=== PATIENT | female | born 1945 | race Caucasian/White ===

== ENCOUNTER 2019-08-21 11:48 | Inpatient (IN) ==
--- OUTSIDE RECORDS SUMMARY | 2019-08-21 11:51 | External Medical Summary | Continuity of Care Document ---
:1945 Author Name Uzair Gerber, Provider Address Unavailable Unavailable , Care Team Providers Name Role Phone Onofre Gerber, Alfredito Unavailable [email or web address] PCP, UNKNOWN Unavailable Unavailable Unavailable Unavailable Unavailable Problems Epilepsy (345.90) Gallbladder disease (575.9) (K82.9) Diabetes mellitus (250.00) (E11.9) Hypothyroidism (244.9) (E03.9) Asthma (493.90) (J45.909) Atypical glandular cells of undetermined significance of cervix (795.01) (R87.619) Hypertension (401.9) (I10) Postmenopausal bleeding (627.1) (N95.0) Hypercholesterolemia (272.0) (E78.00) Aftercare following surgery (V58.89) (Z48.89) Arthritis (716.90) (M19.90) Migraine headache (346.90) (G43.909) Allergies and Adverse Reactions Adalat CC TBCR (Allergy) Adrenalin SOLN (Allergy) Aspirin TABS (Allergy) Reaction: Rash Avelox SOLN (Allergy) Avelox TABS (Allergy) Benzodiazepines (Allergy) Reaction: Hive s Diltia XT CP24 (Allergy) Diltiazem HCl CD CP24 (Allergy) Doxycycline Hyclate CAPS (Allergy) Epifrin SOLN (Allergy) Penicillins (Allergy) Reaction: Hives, A naphylaxis Simvastatin TABS (Allergy) Sulfa Drugs (Allergy) Reaction: Hives Vancomycin HCl SOLR (Allergy) Reaction: Hives Vibramycin CAPS (Allergy) Zocor TABS (Allergy) Medications amLODIPine Besylate 5 MG Oral Tablet; TAKE 1 TABLET DAILY. Refills: 0 Levothyroxine Sodium 150 MCG Oral Tablet; TAKE 1 TABLET EMILIANO Y. Refills: 0 Losartan Potassium 100 MG Oral Tablet; TAKE 1 TABLET DAILY. Refills: 0 metFORMIN HCl - 500 MG Oral Tablet; TAKE 1 TABLET 3 TIMES DA EMILEE WITH MEALS. Refills: 0 Ventolin HFA 108 (90 Base) MCG/ACT Inhalation Aerosol Soluti on Refills: 0 Albuterol AERS Refills: 0 Procedures History of Section Status: Comp leted History of Dilation And Curettage Status : Completed History of Thyroid Surgery Total Thyroidectomy Status: Completed History of Brain Surgery Status: Complet ed Aftercare following surgery Immunizations Immunizations not documented Family History Unknown Family Member Family history of Diabetes Mellitus (V18.0) Status: Active Comments: Family History Family history of Hypertension (V17.49) Status: Active Comments: Family History Family history of Pure Hypercholesterolemia Status: Active Comments: Family History Family history of Thyroid Disorder (V18.19) Status: Active Comments: Family History Social History - Smoking Status Never smoker Plan of Treatment Planned Observations Planned Goals not documented Results No Known Results Results not documented
[2019-08-21 12:37] LABS: Basophils # (auto) 0.04 K/uL (0-0.2); Basophils % (auto) 0.4 %; Eosinophils # (auto) 0.12 K/uL (0-0.5); Eosinophils % (auto) 1.3 %; Hematocrit (blood only) 45.8 % (37-47); Hemoglobin 15.4 g/dL (12.0-16.0); Immature Granulocytes # (auto) 0.03 K/uL (0.00-0.02); Immature Granulocytes % (auto) 0.3 %; Lymphocytes # (auto) 1.29 K/uL (1.2-3.4); Lymphocytes % (auto) 14.2 %; Mean Corpuscular Hemoglobin 28.8 pg (25-34); Mean Corpuscular Hgb Conc 33.6 g/dL (32-36); Mean Corpuscular Volume 85.6 fL (80-100); Mean Platelet Volume 9.7 fL (7.4-10.4); Monocytes # (auto) 0.67 K/uL (0.11-0.59); Monocytes % (auto) 7.4 %; Neutrophils # (auto) 6.96 K/uL (1.4-6.5); Neutrophils % (auto) 76.4 %; Platelet Count 257 K/uL (130-400); RDW Coefficient of Variation 13.2 % (11.5-14.5); RDW Standard Deviation 41.1 fL (36.4-46.3); Red Blood Count 5.35 M/uL (4.2-5.4); White Blood Count 9.11 K/uL (4.8-10.8)
--- NOTE | 2019-08-21 12:43 | XRay Report ---
XR chest 1V portable CLINICAL HISTORY: 73 years-old Female presenting with Chest Pain. TECHNIQUE: Portable upright AP view of the chest was obtained. COMPARISON: 09/08/2015. FINDINGS: Atherosclerosis of the aortic arch. Cardiac silhouette borderline enlarged. No focal opacity. No larg e effusion or pneumothorax. Degenerative changes of the thoracic spine. Degenerative changes of the s houlders. Upper abdomen normal. IMPRESSION: 1. No acute cardiopulmonary disease. Electronically signed by: Kerwin Orantes M.D. 08/21/2019 12:42 PM
[2019-08-21 12:48] LABS: Prothrombin Time 10.1 Seconds (9.0-12.0)
[2019-08-21 13:01] LABS: Alanine Aminotransferase 15 U/L (12-78); Albumin Globulin Ratio 0.7 (0.9-2); Albumin Level 3.3 gm/dl (3.4-5.0); Alkaline Phosphatase 120 U/L (45-117); Aspartate Aminotransferase 9 U/L (15-37); BUN Creatinine Ratio 21.4 (10-20); Bilirubin,Total 0.8 mg/dl (0.2-1); Blood Urea Nitrogen 14 mg/dl (7-18); Carbon Dioxide 28 mmol/L (21-32); Chloride 100 mmol/L (98-107); Creatinine Clr Calc Pharmacy 87.1 ml/min; Est GFR (African American) 102.5; Est GFR (Non-African American) 88.4; Globulin 4.8 gm/dl (2.5-4.0); Glucose 336 mg/dl (70-99); Lipase 84 U/L (73-393); Potassium 3.5 mmol/L (3.5-5.1); Sodium 135 mmol/L (136-145); Total Protein 8.1 gm/dl (6.4-8.2); Troponin I < 0.015 ng/ml (0-0.045)
[2019-08-21 13:15] LABS: Beta-Hydroxybutyrate 5.57 mg/dl (0.2-2.81)
[2019-08-21] MEDS ORDERED: OPTIRAY 320 125ml IV PRN (13:37)
--- NOTE | 2019-08-21 13:52 | CT Scan Report ---
CT ANGIOGRAM OF THE CHEST CLINICAL HISTORY: Atypical chest pain. Shortness of breath. Positive d-dimer. COMPARISON STUDY: Chest x-ray dated 08/21/2019, noncontrast CT scan of the chest dated 04/14/2013 TECHNIQUE: Following the IV administration of 116 mL of Optiray-320, CT angiogram of the thorax was p erformed from the thoracic inlet to the lung bases utilizing the pulmonary embolus protocol. Images a re reviewed in the axial, sagittal, and coronal planes. IV contrast was administered without complica tion. MIP imaging was performed. A dose lowering technique was utilized adhering to the principles o f ALARA. CT DOSE: 484.78 mGycm FINDINGS: No pathologically enlarged axillary mediastinal or hilar lymph nodes were visualized. There was no evidence of thoracic aortic dilatation. There were no pulmonary artery filling defects to indicate acute pulmonary embolism. No pleural effusions are visualized. There is area of atelectasis/consolidation involving the medial aspect of the right middle lobe. This could be atelectatic or infectious/inflammatory. Clinical correlation is advocated. A 3 month follow -up CT scan is recommended. IMPRESSION: 1. No evidence of acute pulmonary embolism 2. No evidence of pathologic adenopathy 3. Area of atelectasis/consolidation involving the medial aspect the right middle lobe. This could be atelectatic or infectious/inflammatory. Clinical correlation and 3 month follow-up CT scanning is re commended. Electronically signed by: Sotero Solo M.D. 08/21/2019 1:50 PM
[2019-08-21] MEDS ORDERED: ACETAMINOPHEN 1,000 MG/100 ML VIAL IV STA (14:07)
--- NOTE | 2019-08-21 15:33 | History & Physical Report ---
Date of Service August 21, 2019 Assessment & Plan (1) Chest pain: Chest pain of unclear etiology at present. Initial troponin negative and EKG without acute changes. D-dimer was elevated but CTA chest negative for PE although did show an area of potential atelectasis vs consolidation in the RML. Pt has been afebrile with normal WBC count and no significant cough or recent URI symptoms. - Trend troponin Q6 hrs x 3 - Monitor of telemetry - Check ECHO - Consult cardiology to determine if any additional work-up is indicated - pt with multiple risk factors for cardiac disease (DM, HTN, dyslipidemia) (2) HTN (hypertension): Currently elevated in the ED - may be partially due to pain +/- component of anxiety. Continue to monitor. - Resume home meds (3) Type 2 diabetes mellitus: Last A1c in February was 13.2. Dr. Espinoza discussed possibility of insulin with patient as sugars remain uncontrolled on Metformin and Tradjenta. Pt declines as this time due to concern for her ability to handle the syringes with her history of arthritis in her hands. 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 She also reports limited ability to progress with PT/OT. - Consult case management for additional recommendations - home health services? - Consult PT/OT for evaluation - pt primarily wheelchair bound but does use walker to transfer Pt seen and reviewed with collaborating physician Dr. Espinoza. Plan of care discussed and as outlined above. All questions answered from patient. Teresa Lakhani PA-C History of Present Illness Chief Complaint: Chest Pain Primary Care Provider: Alfredito Hunter MD/Maria Eugenia Argueta PA-C This is a 73 y/o female with a PMH of craniotomy for CSF leak, papillary thyroid cancer s/p resection, uncontrolled DM2 with last A1c of 13.2 (03/05), hypertension, dyslipidemia, and acquired hypothyroidism who presents to the ED today with the abrupt onset of chest pain. Pt states that she was woken from sleep around 3 am today with sharp central chest pain "like someone was stabbing me with a knife" - pain radiated to her left breast and through to her back. She tried heat, "fizzy water," and position changes but the pain persistent so she came to the ED via EMS. She did not take any pain relievers at home as she states that she prefers to avoid medication when possible. Pain was initially rated as a 7/10 but is currently a 5/10 after receiving Tylenol in the ED. Chest pain is worse with taking a deep breath or leaning forward. It seems the most bearable if she is sitting straight up but it does not go away. She reports that it has been present constantly since it started. She had some associated shortness of breath but denies nausea, vomiting, diaphoresis, fevers, chills, wheezing, dizziness or headache. She reports no similar chest pain previously even thought she has a history of pneumonia and pleurisy. She is feeling fatigued but relates this to not sleeping much last night due to the pain. She developed a non-productive cough in the ambulance but otherwise denies cough, sore throat, congestion, rhinorrhea. Allergies Allergy/AdvReac Type Severity Reaction Status Date / Time aspirin Allergy Severe HIVES; Verified 08/21/19 15:51 DIFFICULTY BREATHING Penicillins Allergy Severe HIVES AND Verified 08/21/19 15:51 DIFFICULTY BREATHING Benzodiazepines Allergy Mild Unknown Verified 08/21/19 15:51 doxycycline Allergy Mild Unknown Verified 08/21/19 15:51 Sulfa (Sulfonamide Allergy Mild Unknown Verified 08/21/19 15:51 Antibiotics) aspartame Allergy Unknown _ Verified 08/21/19 15:51 diltiazem Allergy Unknown UNKNOWN Verified 08/21/19 15:51 REACTION epinephrine Allergy Unknown UNKNOWN Verified 08/21/19 15:51 REACTION moxifloxacin Allergy Unknown UNKNOWN Verified 08/21/19 15:51 REACTION nifedipine Allergy Unknown UNKNOWN Verified 08/21/19 15:51 REACTION simvastatin Allergy Unknown UNKNOWN Verified 09/08/15 10:56 REACTION PER PT vancomycin Allergy Unknown UNKNOWN Verified 09/08/15 10:56 REACTION ADRENALIN Allergy Unknown UNKNOWN Uncoded 12/29/12 15:31 REACTION Home Medications Home Medications Medication Instructions Recorded Confirmed Type albuterol sulfate 2 puff INHALATION Q6H PRN 08/21/19 08/21/19 History amlodipine [Norvasc] 5 mg PO QPM 08/21/19 08/21/19 History levothyroxine 150 mcg PO QAM 08/21/19 08/21/19 History losartan [Cozaar] 100 mg PO DAILY 08/21/19 08/21/19 History metformin [Glucophage] 500 mg PO TIDM 08/21/19 08/21/19 History Past Med/Surg History Family History Other TIA (transient ischemic attack) Social History Preferred Language: Luxembourger Communication Ability: Effective Director Medical Economics Required: No Beliefs That Will Affect Care: None marital status: / Current Living Situation: Alone current occupational status: retired Other Information That Helps Us Care for You: No Feels Safe at Home: Yes Safety Concerns: Feels Safe At This Time Smoking Status: Never smoker Hx Alcohol Use: No Hx Substance Use: No Review of Systems Review of Systems: All systems reviewed & are unremarkable except as noted in HPI & below Constitutional: + fatigue and + anorexia (ongoing issue since the of her a few years ago); no fever, no chills and no sweats Eyes: No acute visual changes - ongoing visual issues due to macular degeneration Ear, Nose, Mouth, Throat: no nasal congestion, no nasal discharge, no post nasal drip, no sore throat and no dysphagia Respiratory: + cough and + dyspnea; no chest congestion and no wheezing Cardiovascular: + edema (ongoing issues with lower extremity edema for past 2 months - no worse today); no palpitations, no lightheadedness, no syncope and no calf pain Gastrointestinal: + change in bowel habits (baseline bowel pattern 3x/day - over past 2 months, developed small hard stools with straining at times every 1- 2 days); no abdominal pain, no heartburn, no nausea, no vomiting, no blood in stools and no melena Genitourinary: + nocturia (ongoing issue - not worsening); no dysuria and no hematuria Musculoskeletal: + muscle weakness (wheelchair bound although self-propels) Integumentary: no rash and no skin ulcer Neurologic: + gait abnormality (chronic) and + tingling (at prior surgical site from craniotomy - denies elsewhere); no seizure-like activity, no dizziness, no headache(s) and no confusion Psychiatric: + anxiety Physical Exam Constitutional: WD/WN, vitals as above no acute distress Eyes: PERRL, conjunctivae normal, anicteric sclerae ENMT: external ear and nose normal, oropharynx normal Neck: trachea midline Respiratory: normal respiratory effort, lungs clear to auscultation no respiratory distress, does not use accessory muscles and no cough Auscultation: no rales, no rhonchi and no wheezes Cardiovascular: Rate/Rhythm: regular rate and regular rhythm Heart Sounds: no gallop and no murmur Vessels: no JVD and no carotid bruit Extremities: normal capillary refill and + pedal edema (trace); no calf tenderness Gastrointestinal (Abdomen): Inspection/Auscultation: normal bowel sounds; abdomen not distended Percussion/Palpation: abdomen soft; abdomen nontender Musculoskeletal: Head/Neck/Chest: neck supple Extremities: no cyanosis and no clubbing Skin: no rashes, warm and dry no jaundice Neurologic: moves all extremities Speech / Cognition: normal speech Psychiatric: Orientation: oriented x 3 Results & Data Vital Signs (Past 12 Hours) Vital Signs Temp Pulse Pulse Resp BP BP Pulse Ox 08/21/19 14:14 105 H 24 148/92 H 94 08/21/19 13:25 92 08/21/19 13:24 102 H 24 159/83 H 92 08/21/19 13:10 101 H 20 159/83 H 89 L 08/21/19 12:48 91 08/21/19 11:48 36.8 C 110 H 18 163/92 H 90 Laboratory Results Laboratory Results - last 24 hr 08/21/19 08/21/19 08/21/19 12:27 12:27 12:27 WBC 9.11 RBC 5.35 Hgb 15.4 Hct 45.8 MCV 85.6 MCH 28.8 MCHC 33.6 RDW Std Deviation 41.1 RDW Coeff of Smith 13.2 Plt Count 257 MPV 9.7 Immature Gran % (Auto) 0.3 Neut % (Auto) 76.4 Lymph % (Auto) 14.2 Wagoner % (Auto) 7.4 Eos % (Auto) 1.3 Baso % (Auto) 0.4 Immature Gran # (Auto) 0.03 H Neut # (Auto) 6.96 H Lymph # (Auto) 1.29 Wagoner # (Auto) 0.67 H Eos # (Auto) 0.12 Baso # (Auto) 0.04 PT 10.1 INR 1.0 POC D-Dimer Sodium 135 L Potassium 3.5 Chloride 100 Carbon Dioxide 28 Anion Gap 7.0 BUN 14 Creatinine 0.67 Est Cr Clr Drug Dosing 87.1 Est GFR ( Amer) 102.5 Est GFR (Non-Af Amer) 88.4 BUN/Creatinine Ratio 21.4 H Glucose 336 H* Calcium 9.0 Total Bilirubin 0.8 AST 9 L ALT 15 Alkaline Phosphatase 120 H Troponin I < 0.015 Total Protein 8.1 Albumin 3.3 L Globulin 4.8 H Albumin/Globulin Ratio 0.7 L Lipase 84 Beta-Hydroxybutyric Acd 5.57 H 08/21/19 12:31 WBC RBC Hgb Hct MCV MCH MCHC RDW Std Deviation RDW Coeff of Smith Plt Count MPV Immature Gran % (Auto) Neut % (Auto) Lymph % (Auto) Wagoner % (Auto) Eos % (Auto) Baso % (Auto) Immature Gran # (Auto) Neut # (Auto) Lymph # (Auto) Wagoner # (Auto) Eos # (Auto) Baso # (Auto) PT INR POC D-Dimer > 450 H* Sodium Potassium Chloride Carbon Dioxide Anion Gap BUN Creatinine Est Cr Clr Drug Dosing Est GFR ( Amer) Est GFR (Non-Af Amer) BUN/Creatinine Ratio Glucose Calcium Total Bilirubin AST ALT Alkaline Phosphatase Troponin I Total Protein Albumin Globulin Albumin/Globulin Ratio Lipase Beta-Hydroxybutyric Acd Diagnostic Findings Chest X-ray 08/21/19 - IMPRESSION: 1. No acute cardiopulmonary disease. CTA Chest 08/21/19 - IMPRESSION: 1. No evidence of acute pulmonary embolism. 2. No evidence of pathologic adenopathy. 3. Area of atelectasis/consolidation involving the medial aspect the right middle lobe. This could be atelectatic or infectious/inflammatory. Clinical correlation and 3 month follow-up CT scanning is recommended. Medications Administered Ioversol (Optiray 320 125ml) 116 ml IV ONCE PRN PRN Reason: Interaction Checking Stop: 11/08/19 13:36 Last Admin: 08/21/19 13:38 Dose: 116 ml Documented by: [id number] Discontinued Medications Acetaminophen (Ofirmev) 1,000 mg in 100 mls @ 400 mls/hr IV NOW STA Stop: 08/21/19 14:21 Last Infusion: 08/21/19 14:40 Dose: 0 mls/hr Documented by: [id number] Admin: 08/21/19 14:17 Dose: 400 mls/hr Documented by: [id number] Code Status & VTE Plan VTE Prophylaxis Plan VTE Prophylaxis will be ordered: Yes Supervising Physician Co-Signing Physician Notes I, Dr. Phong Espinoza, have seen and examined the patient with physician occupational therapy assistant and would like to comment that: Carli Logan is a 73 year old female who presents with left sided chest pain and is hyperglycemic Chest pain -pneumonia or pulmonary embolism has been ruled out with imaging -sinus tachycardia on EKG but does not appear to suggest ischemia, monitor on telemetry -initial troponin negative, trend troponins -patient continues to have chest discomfort with appears worse with changing positions -will get echocardiogram to rule out pericardial etiologies -cardiology consult requested -monitor on telemetry -patient reports allergies to aspirin, she declines pain medications other than acetaminophen Diabetes mellitus with Hyperglycemia -patient on 2 oral anti-hyperglycemics at home and has either declined or unable to take insulin at home so she has not been on insulin therapy despite high blood sugars -in the ED, the presentation blood glucose of 336 -she agrees to take insulin during hospital stay but she reports she does not think she will be on insulin treatment at home due to inability for her to check blood sugars -will seek case management assistance on outpatient nursing services -patient counseled that uncontrolled diabetes can put her at risk for health problems including acute coronary syndrome -patient also will need IV hydration during hospital stay to ensure that IV contrast for ED performed CTA can be washed out so that she can take metformin in the near future Agree with other assessment and plans and history as documented by physician occupational therapy assistant for other medication issues as documented above On physical exam in the ED General: no acute distress, patient appears to be comfortable Neck: normal visual inspection Eyes: ocular movements intact, pupils are equal and reactive to light Lungs: clear to auscultation bilaterally, no wheezing, no stridor Heart: mild tachycardia Abdomen: soft, nontender, positive bowel sounds Extremities: no edema My colleague Dr. Delgado will be the hospitalist physician for the patient starting on 08/22/19 (1) Chest pain Chest pain type: unspecified Qualified Code(s): R07.9 - Chest pain, unspecified
[2019-08-21] MEDS ORDERED: GLUCAGON FOR INJ 1 MG VIAL SQ PRN (16:33)
[2019-08-21] MEDS ORDERED: GLUCOSE 10 TABS/TUBE PO PRN (16:33)
[2019-08-21] MEDS ORDERED: ACETAMINOPHEN 325 MG TAB PO PRN (16:33)
[2019-08-21] MEDS ORDERED: GLUCOSE 40% GEL 15 GM TUBE PO PRN (16:33)
[2019-08-21] MEDS ORDERED: CARBOHYDRATES FOR HYPOGLYCEMIA PO PRN (16:33)
[2019-08-21] MEDS ORDERED: NITROGLYCERIN SL 0.4 MG/TAB TAB SL PRN (16:33)
[2019-08-21] MEDS ORDERED: DEXTROSE 50% 50 ML SYRINGE IV PRN (16:33)
[2019-08-21] MEDS ORDERED: SODIUM CHLORIDE 0.9% 1000ML 1,000 ML IV SCH (16:45)
[2019-08-21] MEDS ORDERED: SODIUM CHLORIDE 0.9% 500 ML IV SCH (17:00)
[2019-08-21] MEDS: INSULIN ASPART 100 UNITS/ML 3 ML PEN SC SCH ×2 (17:51→20:52)
[2019-08-21 19:11] LABS: Thyroid Stimulating Hormone 0.163 uIu/ml (0.300-4.500); Troponin I < 0.015 ng/ml (0-0.045)
--- NOTE | 2019-08-21 19:20 | Emergency Department Note ---
Entered by Giselle Sullivan acting as a scribe for History of Present Illness General Chief complaint: Anxiety Time Seen by Provider: 08/21/19 12:10 Source: patient History of Present Illness Onset (ago): hour(s) 9 Location: chest Radiation: back Severity: similar to prior episodes (pleurisy) Pain Consistency: + other (worsening) Quality: + stabbing Relieved By: + rest Exacerbated By: + movement and + other (deep breathing) Associated symptoms: + denies other symptoms (numbness in right arm or legs, arm pain, neck pain, jaw pain, abdominal pain), + shortness of breath and + other (leg swelling, increased urinary frequency, change in bowel movements, left hand numbness); no nausea/vomiting (nausea) The patient is a 73 year old female who presents to the Emergency Room with complaints of worsening chest pain starting 9 hours ago. The patient states that this morning while she was sleeping she was awoken with chest pain. She states that the pain is in the center of her chest, radiates under her left breast, and shoots into her back. She notes that it is a stabbing pain. She reports that the pain made her short of breath like she wasnt able to catch it. She states that the pain is better with rest and worse with deep breathing and movement. The patient complains of increased leg swelling, increased urinary frequency, and a change in bowel movements. She states that recently she has had some round, hard, rabbit looking bowel movements. She notes that she has some left hand numbness, but thinks it is from the IV being placed. She notes that she has a history of asthma that typically acts up around this year and has been, but she has never had chest pain with it. She notes that her chest pain does feel similar to her past episodes of pleurisy. The patient denies ever having heart problems before, numbness in her legs or right arm, arm pain, neck pain, jaw pain, abdominal pain, nausea, taking medications for her pain, recent trauma, changes in her diet, and doing anything strenuous. Home Medications Home Medications Medication Instructions Recorded Confirmed Type albuterol sulfate 2 puff INHALATION Q6H PRN 08/21/19 08/21/19 History amlodipine [Norvasc] 5 mg PO QPM 08/21/19 08/21/19 History levothyroxine 150 mcg PO QAM 08/21/19 08/21/19 History losartan [Cozaar] 100 mg PO DAILY 08/21/19 08/21/19 History metformin [Glucophage] 500 mg PO TIDM 08/21/19 08/21/19 History Allergies Allergy/AdvReac Type Severity Reaction Status Date / Time aspirin Allergy Severe HIVES; Verified 08/21/19 15:51 DIFFICULTY BREATHING Penicillins Allergy Severe HIVES AND Verified 08/21/19 15:51 DIFFICULTY BREATHING Benzodiazepines Allergy Mild Unknown Verified 08/21/19 15:51 doxycycline Allergy Mild Unknown Verified 08/21/19 15:51 Sulfa (Sulfonamide Allergy Mild Unknown Verified 08/21/19 15:51 Antibiotics) aspartame Allergy Unknown _ Verified 08/21/19 15:51 diltiazem Allergy Unknown UNKNOWN Verified 08/21/19 15:51 REACTION epinephrine Allergy Unknown UNKNOWN Verified 08/21/19 15:51 REACTION moxifloxacin Allergy Unknown UNKNOWN Verified 08/21/19 15:51 REACTION nifedipine Allergy Unknown UNKNOWN Verified 08/21/19 15:51 REACTION simvastatin Allergy Unknown UNKNOWN Verified 09/08/15 10:56 REACTION PER PT vancomycin Allergy Unknown UNKNOWN Verified 09/08/15 10:56 REACTION ADRENALIN Allergy Unknown UNKNOWN Uncoded 12/29/12 15:31 REACTION Past Med/Surg History Family History Other TIA (transient ischemic attack) Social History Preferred Language: Maltese Communication Ability: Effective 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 and A total of 10 systems reviewed and were otherwise negative Physical Exam Vital Signs Vital Signs - 24 hr 08/21/19 11:48 08/21/19 11:55 08/21/19 12:23 Temperature 36.8 C Temperature Source Oral Sepsis Recent Fever Within 48 Hours No Sepsis Action Taken by Nursing No Action Required Pulse Rate 110 H 107 H 105 H Pulse Rate [Left Finger] Pulse Rate from SpO2 Sensor Pulse Rhythm Regular Pulse Strength Normal Respiratory Rate 18 28 H 19 Respiratory Effort / Characteristics Non-Labored Spontaneous Respiratory Depth Normal Respiratory Pattern Regular Blood Pressure 163/92 H 163/92 H Blood Pressure [Left Arm] Blood Pressure Mean 115 115 Blood Pressure Mean [Left Arm] Blood Pressure Position Lying Pulse Oximetry 90 Oxygen Delivery Method Room Air Oxygen Flow Rate 08/21/19 12:30 08/21/19 12:48 08/21/19 12:49 Temperature Temperature Source Sepsis Recent Fever Within 48 Hours Sepsis Action Taken by Nursing Pulse Rate 105 H 103 H Pulse Rate [Left Finger] Pulse Rate from SpO2 Sensor 103 H Pulse Rhythm Pulse Strength Respiratory Rate 25 H 34 H Respiratory Effort / Characteristics Respiratory Depth Respiratory Pattern Blood Pressure 160/87 H Blood Pressure [Left Arm] Blood Pressure Mean 111 Blood Pressure Mean [Left Arm] Blood Pressure Position Pulse Oximetry 91 90 Oxygen Delivery Method Room Air Oxygen Flow Rate 08/21/19 13:00 08/21/19 13:10 08/21/19 13:24 Temperature Temperature Source Sepsis Recent Fever Within 48 Hours Sepsis Action Taken by Nursing Pulse Rate 99 H Pulse Rate [Left Finger] 101 H 102 H Pulse Rate from SpO2 Sensor 100 H Pulse Rhythm Pulse Strength Respiratory Rate 21 20 24 Respiratory Effort / Characteristics Respiratory Depth Respiratory Pattern Blood Pressure 159/83 H Blood Pressure [Left Arm] 159/83 H 159/83 H Blood Pressure Mean 108 Blood Pressure Mean [Left Arm] 108 108 Blood Pressure Position Pulse Oximetry 90 89 L 92 Oxygen Delivery Method Room Air Room Air Oxygen Flow Rate 08/21/19 13:25 08/21/19 13:44 08/21/19 13:46 Temperature Temperature Source Sepsis Recent Fever Within 48 Hours Sepsis Action Taken by Nursing Pulse Rate 99 H 99 H Pulse Rate [Left Finger] Pulse Rate from SpO2 Sensor 99 H 99 H Pulse Rhythm Pulse Strength Respiratory Rate 22 22 Respiratory Effort / Characteristics Respiratory Depth Respiratory Pattern Blood Pressure 160/101 H Blood Pressure [Left Arm] Blood Pressure Mean 120 Blood Pressure Mean [Left Arm] Blood Pressure Position Pulse Oximetry 92 95 95 Oxygen Delivery Method Nasal Cannula Oxygen Flow Rate 2 08/21/19 13:56 08/21/19 14:00 08/21/19 14:14 Temperature Temperature Source Sepsis Recent Fever Within 48 Hours Sepsis Action Taken by Nursing Pulse Rate 98 H 98 H Pulse Rate [Left Finger] 105 H Pulse Rate from SpO2 Sensor 98 H 98 H Pulse Rhythm Pulse Strength Respiratory Rate 25 H 37 H 24 Respiratory Effort / Characteristics Respiratory Depth Respiratory Pattern Blood Pressure 160/101 H 148/92 H Blood Pressure [Left Arm] 148/92 H Blood Pressure Mean 120 110 Blood Pressure Mean [Left Arm] 110 Blood Pressure Position Pulse Oximetry 94 95 94 Oxygen Delivery Method Room Air Oxygen Flow Rate 08/21/19 14:30 08/21/19 15:00 Temperature Temperature Source Sepsis Recent Fever Within 48 Hours Sepsis Action Taken by Nursing Pulse Rate 97 H 94 H Pulse Rate [Left Finger] Pulse Rate from SpO2 Sensor 97 H 95 H Pulse Rhythm Pulse Strength Respiratory Rate 25 H 18 Respiratory Effort / Characteristics Respiratory Depth Respiratory Pattern Blood Pressure 158/86 H 170/86 H Blood Pressure [Left Arm] Blood Pressure Mean 110 114 Blood Pressure Mean [Left Arm] Blood Pressure Position Pulse Oximetry 94 94 Oxygen Delivery Method Oxygen Flow Rate GENERAL: Awake, alert, anxious appearing HENT: Normocephalic, atraumatic. EYES: Normal conjunctiva. Sclera non-icteric. NECK: Supple. No nuchal rigidity. RESPIRATORY: Clear to auscultation. No wheezes. Normal respiratory effort. CARDIAC: Normal rate. Normal rhythm. Extremities warm and well perfused. GI: Soft, non-distended. No tenderness to palpation. No rebound or guarding. RECTAL: Deferred. MUSCULOSKELETAL: Atraumatic. Chest examination reveals reproducible mid to left sided chest tenderness. LOWER EXTREMITIES: Calves are equal size bilaterally and non-tender. No edema NEURO: Normal sensorium. No sensory or motor deficits noted. No facial droop. SKIN: Warm and dry. No rash or jaundice noted. Course 1205: The patient was evaluated in room B2. A complete history and physical exam was performed. 1307: I reevaluated the patient and updated her on her test results thus far. 1406: I reevaluated the patient and updated her on her test results at this time. I discussed the treatment plan with her. She verbally agrees and understands. 1427: I discussed the patient's case with Renetta Lakhani PA-C - [facility]. She will evaluate the patient for further management under Dr. Espinoza's service. Administered Medications Sodium Chloride (Nss 1000ml) 1,000 mls @ 80 mls/hr IV .[id number] SABINE Stop: 08/22/19 05:14 Last Admin: 08/21/19 17:51 Dose: 80 mls/hr Documented by: [id number] Insulin Aspart (Novolog Flexpen) 0 units SC ACHS SABINE Stop: 09/20/19 16:32 Last Admin: 08/21/19 17:51 Dose: 6 units Documented by: [id number] Cosigned by: [id number] Ioversol (Optiray 320 125ml) 116 ml IV ONCE PRN PRN Reason: Interaction Checking Stop: 08/25/19 13:36 Last Admin: 08/21/19 13:38 Dose: 116 ml Documented by: [id number] Discontinued Medications Acetaminophen (Ofirmev) 1,000 mg in 100 mls @ 400 mls/hr IV NOW STA Stop: 08/21/19 14:21 Last Infusion: 08/21/19 14:40 Dose: 0 mls/hr Documented by: [id number] Admin: 08/21/19 14:17 Dose: 400 mls/hr Documented by: [id number] Medical Decision Making Differential Diagnosis Differential diagnoses includes but is not limited to acute coronary syndrome, myocardial infarction, pericarditis, pulmonary embolus, aortic dissection, pneumonia, pneumothorax, musculoskeletal, shingles, esophageal. Medical Records Attestation: I reviewed the patient's medical records. Home Medications Current Medication List: was personally reviewed by me Laboratory Data Attestation: I reviewed the patient's lab results. Result diagrams: 08/21/19 12:27 08/21/19 12:27 Lab Results 08/21/19 08/21/19 08/21/19 Range/Units 12:27 12:27 12:27 WBC 9.11 (4.8-10.8) K/uL RBC 5.35 (4.2-5.4) M/uL Hgb 15.4 (12.0-16.0) g/dL Hct 45.8 (37-47) % MCV 85.6 (80-100) fL MCH 28.8 (25-34) pg MCHC 33.6 (32-36) g/dL RDW Std Deviation 41.1 (36.4-46.3) fL RDW Coeff of Smith 13.2 (11.5-14.5) % Plt Count 257 (130-400) K/uL MPV 9.7 (7.4-10.4) fL Immature Gran % (Auto) 0.3 % Neut % (Auto) 76.4 % Lymph % (Auto) 14.2 % Lares % (Auto) 7.4 % Eos % (Auto) 1.3 % Baso % (Auto) 0.4 % Immature Gran # (Auto) 0.03 H (0.00-0.02) K/uL Neut # (Auto) 6.96 H (1.4-6.5) K/uL Lymph # (Auto) 1.29 (1.2-3.4) K/uL Lares # (Auto) 0.67 H (0.11-0.59) K/uL Eos # (Auto) 0.12 (0-0.5) K/uL Baso # (Auto) 0.04 (0-0.2) K/uL PT 10.1 (9.0-12.0) Seconds INR 1.0 (0.9-1.1) POC D-Dimer (0-450) ng/mlFEU Sodium 135 L (136-145) mmol/L Potassium 3.5 (3.5-5.1) mmol/L Chloride 100 (98-107) mmol/L Carbon Dioxide 28 (21-32) mmol/L Anion Gap 7.0 (3-11) BUN 14 (7-18) mg/dl Creatinine 0.67 (0.6-1.2) mg/dl Est Cr Clr Drug Dosing 87.1 ml/min Est GFR ( Amer) 102.5 Est GFR (Non-Af Amer) 88.4 BUN/Creatinine Ratio 21.4 H (10-20) Glucose 336 H* (70-99) mg/dl Calcium 9.0 (8.5-10.1) mg/dl Total Bilirubin 0.8 (0.2-1) mg/dl AST 9 L (15-37) U/L ALT 15 (12-78) U/L Alkaline Phosphatase 120 H (45-117) U/L Troponin I < 0.015 (0-0.045) ng/ml Total Protein 8.1 (6.4-8.2) gm/dl Albumin 3.3 L (3.4-5.0) gm/dl Globulin 4.8 H (2.5-4.0) gm/dl Albumin/Globulin Ratio 0.7 L (0.9-2) Lipase 84 (73-393) U/L Beta-Hydroxybutyric Acd 5.57 H (0.2-2.81) mg/dl 08/21/19 Range/Units 12:31 WBC (4.8-10.8) K/uL RBC (4.2-5.4) M/uL Hgb (12.0-16.0) g/dL Hct (37-47) % MCV (80-100) fL MCH (25-34) pg MCHC (32-36) g/dL RDW Std Deviation (36.4-46.3) fL RDW Coeff of Smith (11.5-14.5) % Plt Count (130-400) K/uL MPV (7.4-10.4) fL Immature Gran % (Auto) % Neut % (Auto) % Lymph % (Auto) % Lares % (Auto) % Eos % (Auto) % Baso % (Auto) % Immature Gran # (Auto) (0.00-0.02) K/uL Neut # (Auto) (1.4-6.5) K/uL Lymph # (Auto) (1.2-3.4) K/uL Lares # (Auto) (0.11-0.59) K/uL Eos # (Auto) (0-0.5) K/uL Baso # (Auto) (0-0.2) K/uL PT (9.0-12.0) Seconds INR (0.9-1.1) POC D-Dimer > 450 H* (0-450) ng/mlFEU Sodium (136-145) mmol/L Potassium (3.5-5.1) mmol/L Chloride (98-107) mmol/L Carbon Dioxide (21-32) mmol/L Anion Gap (3-11) BUN (7-18) mg/dl Creatinine (0.6-1.2) mg/dl Est Cr Clr Drug Dosing ml/min Est GFR ( Amer) Est GFR (Non-Af Amer) BUN/Creatinine Ratio (10-20) Glucose (70-99) mg/dl Calcium (8.5-10.1) mg/dl Total Bilirubin (0.2-1) mg/dl AST (15-37) U/L ALT (12-78) U/L Alkaline Phosphatase (45-117) U/L Troponin I (0-0.045) ng/ml Total Protein (6.4-8.2) gm/dl Albumin (3.4-5.0) gm/dl Globulin (2.5-4.0) gm/dl Albumin/Globulin Ratio (0.9-2) Lipase (73-393) U/L Beta-Hydroxybutyric Acd (0.2-2.81) mg/dl Imaging Data Radiologist's Impression: Radiology results as stated below per my review and the radiologist's interpretation: XR chest 1V portable CLINICAL HISTORY: 73 years-old Female presenting with Chest Pain. TECHNIQUE: Portable upright AP view of the chest was obtained. COMPARISON: 09/08/2015. FINDINGS: Atherosclerosis of the aortic arch. Cardiac silhouette borderline enlarged. No focal opacity. No large effusion or pneumothorax. Degenerative changes of the thoracic spine. Degenerative changes of the shoulders. Upper abdomen normal. IMPRESSION: 1. No acute cardiopulmonary disease. Electronically signed by: Kerwin Orantes M.D. 08/21/2019 12:[address] ANGIOGRAM OF THE CHEST CLINICAL HISTORY: Atypical chest pain. Shortness of breath. Positive d-dimer. COMPARISON STUDY: Chest x-ray dated 08/21/2019, noncontrast CT scan of the chest dated 04/14/2013 TECHNIQUE: Following the IV administration of 116 mL of Optiray-320, CT angiogram of the thorax was performed from the thoracic inlet to the lung bases utilizing the pulmonary embolus protocol. Images are reviewed in the axial, sagittal, and coronal planes. IV contrast was administered without complication. MIP imaging was performed. A dose lowering technique was utilized adhering to the principles of ALARA. CT DOSE: 484.78 mGycm FINDINGS: No pathologically enlarged axillary mediastinal or hilar lymph nodes were visualized. There was no evidence of thoracic aortic dilatation. There were no pulmonary artery filling defects to indicate acute pulmonary embolism. No pleural effusions are visualized. There is area of atelectasis/consolidation involving the medial aspect of the right middle lobe. This could be atelectatic or infectious/inflammatory. Clinical correlation is advocated. A 3 month follow-up CT scan is recommended. IMPRESSION: 1. No evidence of acute pulmonary embolism 2. No evidence of pathologic adenopathy 3. Area of atelectasis/consolidation involving the medial aspect the right middle lobe. This could be atelectatic or infectious/inflammatory. Clinical correlation and 3 month follow-up CT scanning is recommended. Electronically signed by: Sotero Solo M.D. 08/21/2019 1:50 PM ECG Data Attestation: I personally reviewed and interpreted this ECG as follows: Indication: + chest pain Rate (beats per minute): 108 Rhythm: + sinus tachycardia ECG Intervals/blocks: + Normal QRS and + Normal QT ECG ST segments: no ST depression and no ST elevation ECG Findings: no PACs and no PVCs Blood Pressure Blood Pressure Findings: Elevated blood pressure Blood Pressure Disposition: Referred to patients primary care provider BRI Narrative Patient is a 73-year-old female with extensive medical history including hypertension diabetes prior brain surgery and hypothyroidism presenting today with the onset around 3 AM which woke her some sleep of some pain in the center to left side of her chest radiating around to her back. Denies any abdominal symptoms. States she does feel a little bit short of breath and pain is worse with movement or deep breath. States she has had some pain like this before when she has had pleurisy. Also endorses a little bit of urinary frequency. Patient with multiple allergies and states she has not taken anything for this pain does not want anything for it. EKG was obtained here without significant findings upon arrival. Arrives approximately 9 hours after onset and pain is been consistent and somewhat worsening she says. D-dimer sent to help exclude PE. This however was elevated. Discussed with patient and she states she gets some GI upset with IV dye discussed the risks and benefits and possibly missing a blood clot and she was in agreement with proceeding with CT scan of the chest. Doubt intra-abdominal pathology. Chest x-ray completed to exclude pneumonia pneumothorax. Basic labs were obtained including troponin without signs of significant elevation. Symptoms could somewhat be related to pleuritic or musculoskeletal pain. CT scan shows no evidence of PE or adenopathy. The right middle lobe there was an area of atelectasis versus consolidation. Not having real infectious symptomatology at this time and do not believe this represents pneumonia. This could be causing some inflammation and her pain however pain is more on the left side. Given the patient still feeling significant discomfort discussed with her further observation here in the hospital. She continues declined any pain medications however was able to convince her to take a dose of Tylenol. Impression & Plan Chest pain, Hyperglycemia due to type 2 diabetes mellitus Discharge Plan Visit Data *Final* Discharge Date/Time: 08/21/19 15:49 Chief Complaint: Anxiety ED Provider: Moiz Mason Discharge Problem: Chest pain, Hyperglycemia due to type 2 diabetes mellitus Patient Disposition: Admitted As Inpatient Discharge Instructions Interventions: ED Discharge Assessment Last Done: 08/21/19 15:49 The scribe's documentation has been prepared under my direction and personally reviewed by me in its entirety. I confirm that the note above accurately reflects all work, treatment, procedures, and medical decision making performed by me.
[2019-08-21 19:24] LABS: T4 Free Thyroxine 1.65 ng/dl (0.8-1.6)
[2019-08-22 06:19] LABS: Basophils # (auto) 0.03 K/uL (0-0.2); Basophils % (auto) 0.3 %; Eosinophils # (auto) 0.21 K/uL (0-0.5); Eosinophils % (auto) 2.3 %; Hematocrit (blood only) 41.1 % (37-47); Hemoglobin 13.8 g/dL (12.0-16.0); Immature Granulocytes # (auto) 0.02 K/uL (0.00-0.02); Immature Granulocytes % (auto) 0.2 %; Lymphocytes # (auto) 1.91 K/uL (1.2-3.4); Lymphocytes % (auto) 20.5 %; Mean Corpuscular Hemoglobin 28.9 pg (25-34); Mean Corpuscular Hgb Conc 33.6 g/dL (32-36); Mean Platelet Volume 9.6 fL (7.4-10.4); Monocytes # (auto) 0.72 K/uL (0.11-0.59); Monocytes % (auto) 7.7 %; Neutrophils # (auto) 6.43 K/uL (1.4-6.5); Platelet Count 240 K/uL (130-400); RDW Coefficient of Variation 13.2 % (11.5-14.5); RDW Standard Deviation 41.8 fL (36.4-46.3); Red Blood Count 4.78 M/uL (4.2-5.4); White Blood Count 9.32 K/uL (4.8-10.8)
[2019-08-22 06:55] LABS: BUN Creatinine Ratio 26.5 (10-20); Calcium 8.5 mg/dl (8.5-10.1); Creatinine Clr Calc Pharmacy 122.3 ml/min; Est GFR (African American) 114.4; Est GFR (Non-African American) 98.7; Potassium 3.4 mmol/L (3.5-5.1)
[2019-08-22] MEDS: LEVOTHYROXINE SODIUM 150 MCG TABLET PO SCH (07:09)
[2019-08-22 08:40] LABS: Estimated Average Glucose 332 mg/dl; Hemoglobin A1C 13.2 % (4.5-5.6)
[2019-08-22] MEDS: LOSARTAN POTASSIUM 50 MG TAB PO SCH (08:41)
[2019-08-22] MEDS: INSULIN ASPART 100 UNITS/ML 3 ML PEN SC SCH ×4 (08:42→21:09)
[2019-08-22] MEDS ORDERED: methylPREDNISolone 40 MG in SYRINGE 0 ML IV STA (10:25)
[2019-08-22] MEDS ORDERED: COLCHICINE 0.6 MG TAB PO SCH (10:30)
--- NOTE | 2019-08-22 10:30 | Cardiology Consultation ---
Date of Consultation August 22, 2019 Assessment & Plan (1) Pleurisy without effusion: (2) HTN (hypertension): 73-year-old female presents with pleuritic chest discomfort. Cardiac enzymes negative. CTA negative for pulmonary embolus. Right middle lobe atelectasis versus inflammatory process noted. No ECG or echocardiographic evidence of pericarditis. Reports multiple drug intolerances/allergies including aspirin. Has tolerated corticosteroids in the past. Assess baseline ESR and C-reactive protein. Recommend corticosteroid therapy and addition of colchicine 0.6 mg twice daily. Repeat ECG this a.m. and then daily. Continue telemetry monitoring. Thank you for allowing to participate in the care of your patient. History of Present Illness Reason for Consultation: Chest pain Requesting Physician: Dr. Alonzo Attending Physician: Callie Delgado MD History of Present Illness 73-year-old female presented emergency department with acute onset of severe substernal chest discomfort occurring at approximately 3 AM. Patient awoke from sleep with severe discomfort. She walked around her home with no improvement. Summoned EMS was brought to the emergency department. Initial ECG demonstrating sinus tachycardia without ST changes. Troponins negative x3 sets. Patient reports pleuritic chest pain worse with deep inspiration and lying supine. Discomfort improved when sitting up and leaning forward. No orthopnea or paroxysmal nocturnal dyspnea. Denies recent change in functional capacity. No palpitations, lightheadedness, dizziness, syncope, or near syncope. Denies fever, chills, or sick contacts. No cough or sputum production. Denies personal history of coronary disease, congestive heart failure, or rheumatic fever as a child. Reports prior stress testing within normal limits. Allergies Allergy/AdvReac Type Severity Reaction Status Date / Time aspirin Allergy Severe HIVES; Verified 08/21/19 15:51 DIFFICULTY BREATHING Penicillins Allergy Severe HIVES AND Verified 08/21/19 15:51 DIFFICULTY BREATHING Benzodiazepines Allergy Mild Unknown Verified 08/21/19 15:51 doxycycline Allergy Mild Unknown Verified 08/21/19 15:51 Sulfa (Sulfonamide Allergy Mild Unknown Verified 08/21/19 15:51 Antibiotics) aspartame Allergy Unknown _ Verified 08/21/19 15:51 diltiazem Allergy Unknown UNKNOWN Verified 08/21/19 15:51 REACTION epinephrine Allergy Unknown UNKNOWN Verified 08/21/19 15:51 REACTION moxifloxacin Allergy Unknown UNKNOWN Verified 08/21/19 15:51 REACTION nifedipine Allergy Unknown UNKNOWN Verified 08/21/19 15:51 REACTION simvastatin Allergy Unknown UNKNOWN Verified 09/08/15 10:56 REACTION PER PT vancomycin Allergy Unknown UNKNOWN Verified 09/08/15 10:56 REACTION colchicine AdvReac Intermediate Difficulty Verified 08/22/19 16:33 Breathing Home Medications Home Medications Medication Instructions Recorded Confirmed Type albuterol sulfate 2 puff INHALATION Q6H PRN 08/21/19 08/21/19 History amlodipine [Norvasc] 5 mg PO QPM 08/21/19 08/21/19 History levothyroxine 150 mcg PO QAM 08/21/19 08/21/19 History losartan [Cozaar] 100 mg PO DAILY 08/21/19 08/21/19 History metformin [Glucophage] 500 mg PO TIDM 08/21/19 08/21/19 History Patient History Medical History Asthma Cardiac arrest Dyslipidemia Gait abnormality HTN (hypertension) History of ectopic Hx of papillary thyroid carcinoma Hx of pleurisy Hypothyroidism (acquired) Mild intermittent asthma Type 2 diabetes mellitus Vitamin D deficiency Surgical History History of D&C Hx of brain surgery 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) Hx of section Hx of thyroidectomy Family History Other TIA (transient ischemic attack) Social History Preferred Language: Yemeni Communication Ability: Effective Unix Architect Required: No Beliefs That Will Affect Care: None marital status: / Current Living Situation: Alone current occupational status: retired Other Information That Helps Us Care for You: No Feels Safe at Home: Yes Safety Concerns: Feels Safe At This Time Smoking Status: Never smoker Hx Alcohol Use: No Hx Substance Use: No Review of Systems Review of Systems: All systems reviewed & are unremarkable except as noted in HPI & below Physical Exam Physical Exam: General: NAD, AAO x3, well nourished. HEENT: Normocephalic. Atraumatic. Conjunctiva pink, no scleral icterus. Neck: No carotid bruits, the carotid upstrokes are brisk. No JVD. No HJR Heart: Regular normal S-1 and S-2 no S-3 or S-4 gallop. No murmurs or rub appreciated. PMI is not displaced. No RV heave. Lungs: Clear bilateral without rales , rhonchi, or wheeze. Abdomen: Normal bowel sounds. Soft. Nontender. No masses or organomegaly. No abdominal bruits. Extremities: No clubbing, cyanosis, or edema. Pulses: radial=2/4, Dorsalis pedis =2/4, posterior tibial=2/4. Neuro: Cranial nerves grossly intact. No focal motor deficit. Results & Data Vital Signs (Past 12 Hours) Vital Signs Temp Pulse Pulse Pulse Resp BP Pulse Ox 08/22/19 08:39 36.5 C 102 H 158/76 H 94 08/22/19 04:00 36.8 C 88 20 145/78 H 93 08/22/19 00:24 89 08/22/19 00:00 36.9 C 63 20 133/69 98 Laboratory Results Laboratory Results - last 24 hr 08/21/19 08/21/19 08/21/19 12:27 12:27 12:27 WBC 9.11 RBC 5.35 Hgb 15.4 Hct 45.8 MCV 85.6 MCH 28.8 MCHC 33.6 RDW Std Deviation 41.1 RDW Coeff of Smith 13.2 Plt Count 257 MPV 9.7 Immature Gran % (Auto) 0.3 Neut % (Auto) 76.4 Lymph % (Auto) 14.2 Benson % (Auto) 7.4 Eos % (Auto) 1.3 Baso % (Auto) 0.4 Immature Gran # (Auto) 0.03 H Neut # (Auto) 6.96 H Lymph # (Auto) 1.29 Benson # (Auto) 0.67 H Eos # (Auto) 0.12 Baso # (Auto) 0.04 PT 10.1 INR 1.0 POC D-Dimer Sodium 135 L Potassium 3.5 Chloride 100 Carbon Dioxide 28 Anion Gap 7.0 BUN 14 Creatinine 0.67 Est Cr Clr Drug Dosing 87.1 Est GFR ( Amer) 102.5 Est GFR (Non-Af Amer) 88.4 BUN/Creatinine Ratio 21.4 H Glucose 336 H* POC Glucose Estimat Average Glucose Hemoglobin A1c Calcium 9.0 Total Bilirubin 0.8 AST 9 L ALT 15 Alkaline Phosphatase 120 H Troponin I < 0.015 Total Protein 8.1 Albumin 3.3 L Globulin 4.8 H Albumin/Globulin Ratio 0.7 L Lipase 84 Beta-Hydroxybutyric Acd 5.57 H TSH Free T4 08/21/19 08/21/19 08/21/19 12:31 16:41 18:13 WBC RBC Hgb Hct MCV MCH MCHC RDW Std Deviation RDW Coeff of Smith Plt Count MPV Immature Gran % (Auto) Neut % (Auto) Lymph % (Auto) Benson % (Auto) Eos % (Auto) Baso % (Auto) Immature Gran # (Auto) Neut # (Auto) Lymph # (Auto) Benson # (Auto) Eos # (Auto) Baso # (Auto) PT INR POC D-Dimer > 450 H* Sodium Potassium Chloride Carbon Dioxide Anion Gap BUN Creatinine Est Cr Clr Drug Dosing Est GFR ( Amer) Est GFR (Non-Af Amer) BUN/Creatinine Ratio Glucose POC Glucose 265 H Estimat Average Glucose Hemoglobin A1c Calcium Total Bilirubin AST ALT Alkaline Phosphatase Troponin I < 0.015 Total Protein Albumin Globulin Albumin/Globulin Ratio Lipase Beta-Hydroxybutyric Acd TSH 0.163 L Free T4 1.65 H 08/21/19 08/22/19 08/22/19 20:23 00:16 05:58 WBC 9.32 RBC 4.78 Hgb 13.8 Hct 41.1 MCV 86.0 MCH 28.9 MCHC 33.6 RDW Std Deviation 41.8 RDW Coeff of Smith 13.2 Plt Count 240 MPV 9.6 Immature Gran % (Auto) 0.2 Neut % (Auto) 69.0 Lymph % (Auto) 20.5 Benson % (Auto) 7.7 Eos % (Auto) 2.3 Baso % (Auto) 0.3 Immature Gran # (Auto) 0.02 Neut # (Auto) 6.43 Lymph # (Auto) 1.91 Benson # (Auto) 0.72 H Eos # (Auto) 0.21 Baso # (Auto) 0.03 PT INR POC D-Dimer Sodium Potassium Chloride Carbon Dioxide Anion Gap BUN Creatinine Est Cr Clr Drug Dosing Est GFR ( Amer) Est GFR (Non-Af Amer) BUN/Creatinine Ratio Glucose POC Glucose 233 H Estimat Average Glucose Hemoglobin A1c Calcium Total Bilirubin AST ALT Alkaline Phosphatase Troponin I < 0.015 Total Protein Albumin Globulin Albumin/Globulin Ratio Lipase Beta-Hydroxybutyric Acd TSH Free T4 08/22/19 08/22/19 08/22/19 05:58 05:58 07:21 WBC RBC Hgb Hct MCV MCH MCHC RDW Std Deviation RDW Coeff of Smith Plt Count MPV Immature Gran % (Auto) Neut % (Auto) Lymph % (Auto) Benson % (Auto) Eos % (Auto) Baso % (Auto) Immature Gran # (Auto) Neut # (Auto) Lymph # (Auto) Benson # (Auto) Eos # (Auto) Baso # (Auto) PT INR POC D-Dimer Sodium 138 Potassium 3.4 L Chloride 105 Carbon Dioxide 27 Anion Gap 6.0 BUN 13 Creatinine 0.48 L Est Cr Clr Drug Dosing 122.3 Est GFR ( Amer) 114.4 Est GFR (Non-Af Amer) 98.7 BUN/Creatinine Ratio 26.5 H Glucose 209 H POC Glucose 209 H Estimat Average Glucose 332 Hemoglobin A1c 13.2 H Calcium 8.5 Total Bilirubin AST ALT Alkaline Phosphatase Troponin I Total Protein Albumin Globulin Albumin/Globulin Ratio Lipase Beta-Hydroxybutyric Acd TSH Free T4 (1) HTN (hypertension) Hypertension type: essential hypertension Qualified Code(s): I10 - Essential (primary) hypertension
[2019-08-22] MEDS ORDERED: ONDANSETRON INJ 2 MG/ML 2 ML VIAL IV PRN (12:22)
--- NOTE | 2019-08-22 16:30 | Hospitalist Progress Note ---
Date of Service August 22, 2019 Assessment & Plan (1) Chest pain: no evidence of ACS appreciate input from Cardiology possible costochondritis , given chest wall tenderness ordered for Colchicine and IV solu medrol pt feels she had severe allergic reaction causing nausea /abdomonal discomfort , difficult to swallow ECHO no wall motion abnormality Colchicine D/pipe PRN toradol D/C tele - (2) HTN (hypertension): was elevated in ER - may be partially due to pain +/- component of anxiety. home antihypertensives continued ordered for PRN IV hydralazine for SBP > 160 (3) Type 2 diabetes mellitus: Very poorly controlled Hb A1c > 13 on Metformin pt been very resistant to use insulin appreciate input from clinical nurse educator and Pharmacy for glycemic managment pt was given teaching for self administration of insulin feels comfortable willing for once daily Lantus pt is counselled repeatedly risk for heart attack , renal failure , stroke with uncontrolled DM initially was reluctant for BSG check later willing to do once daily does not have a glucometer , will need script for meter /lancet and testing strips (4) Gait abnormality: - Consult case management for additional recommendations -home PT /home health - Consult PT/OT for evaluation - pt primarily wheelchair bound but does use walker to transfer Subjective pt reports her left sided chest pain has improved still having some discomfort while taking deep breath thinks she had severe allergic reaction in AM -as was given Po Colchicine and IV solu Medrol felt nauseous , her throat closed, felt difficult to breath , had burning sensation in her throat and abdomen was given Zofran and benadryl -felt better pt says she is allergic to multiple medications has taken PO Prednisone in past , never had any reaction like this pt is counselled Colchicine can cause GI symptom -nausea /vomiting due to severity of her symptom , cochicine D/pipe pt also refused to take insulin as she was just recovering from allergic reaction -did not want any additional new med Physical Exam Constitutional: WD/WN, vitals as above no acute distress Eyes: PERRL, conjunctivae normal, anicteric sclerae ENMT: external ear and nose normal, oropharynx normal Neck: trachea midline Respiratory: normal respiratory effort, lungs clear to auscultation no respiratory distress, does not use accessory muscles and no cough Auscultation: no rales, no rhonchi and no wheezes Cardiovascular: Rate/Rhythm: regular rate and regular rhythm Heart Sounds: no gallop and no murmur Vessels: no JVD and no carotid bruit Extremities: normal capillary refill and + pedal edema (trace); no calf tenderness Gastrointestinal (Abdomen): Inspection/Auscultation: normal bowel sounds; abdomen not distended Percussion/Palpation: abdomen soft; abdomen nontender Musculoskeletal: Head/Neck/Chest: neck supple Extremities: no cyanosis and no clubbing Skin: no rashes, warm and dry no jaundice Neurologic: moves all extremities (has chronic bilat lower ext weakness /due to prior cranial surgery ) Psychiatric: Orientation: oriented x 3 Results & Data Vital Signs (Past 12 Hours) Vital Signs Temp Pulse Pulse Resp BP Pulse Ox 08/22/19 15:09 36.8 C 97 H 20 181/93 H 91 08/22/19 11:40 36.6 C 103 H 19 175/93 H 91 08/22/19 08:39 36.5 C 102 H 158/76 H 94 08/22/19 08:00 92 H (1) Chest pain Chest pain type: unspecified Qualified Code(s): R07.9 - Chest pain, unspecified
[2019-08-22] MEDS ORDERED: KETOROLAC TROMETHAMINE 15 MG/ML VIAL IV PRN (17:01)
[2019-08-22] MEDS ORDERED: PHARMACY GLYCEMIC MGMT CONSULT PRN (17:03)
[2019-08-22] MEDS ORDERED: INSULIN GLARGINE SOLOSTAR 100 UNITS/ML 3 ML PEN SC SCH (18:00)
[2019-08-22 19:44] LABS: Appearance Urine Clear (Clear); Bacteria Urine Automated Negative (Negative); Bilirubin Urine Negative (Negative); Blood Urine Negative (Negative); Cast Urine Automated 0 /lpf (0-5); Color Urine Yellow; Glucose Urine UA 3+ (Negative); Leukocyte Esterase Urine Negative (Negative); Nitrite Urine Negative (Negative); Protein Urine 1+ (Negative); RBC Urine Automated 0-4 /hpf (0-4); Specific Gravity Urine 1.027 (1.000-1.030); Urobilinogen Urine Negative (Negative)
[2019-08-22 19:47] LABS: Ketones Urine 3+ (Negative)
[2019-08-22] MEDS: AMLODIPINE BESYLATE 5 MG TAB PO SCH (21:08)
[2019-08-23] MEDS: INSULIN ASPART 100 UNITS/ML 3 ML PEN SC SCH ×6 (00:28→20:37)
[2019-08-23] MEDS ORDERED: INSULIN HUMAN REGULAR PER UNIT 5 UNITS in SYRINGE 4.95 ML IV ONE (01:30)
[2019-08-23] MEDS: LEVOTHYROXINE SODIUM 150 MCG TABLET PO SCH (06:25)
[2019-08-23] MEDS: LOSARTAN POTASSIUM 50 MG TAB PO SCH (08:08)
--- NOTE | 2019-08-23 08:57 | Pharmacy Report ---
Glycemic Control Consultation - Date of Service August 23, 2019 - Scope Scope: Glycemic Pharmacist consulted by Dr Delgado on 08/22/19 for glycemic control and to write orders per [facility] inpatient glycemic control protocol - Objective Weight: 86.1 kg Accuchecks BSG (last 24hrs): 08/22/19 08/22/19 08/22/19 11:27 16:28 16:30 POC Glucose 293 H 305 H* 309 H* 08/22/19 08/22/19 08/22/19 18:56 20:32 20:33 POC Glucose 328 H* 347 H* 368 H* 08/23/19 08/23/19 08/23/19 00:21 00:23 04:07 POC Glucose 306 H* 332 H* 224 H 08/23/19 07:54 POC Glucose 200 H HbA1c: Hemoglobin A1c 13.2 % (4.5-5.6) H 08/22/19 05:58 - Recent Pertinent Medications Outpatient Anti-diabetic Regimen: * Metformin 500 mg PO TIDM * A1c = 13.2 % (08/22/19) - Assessment & Plan Assessment & Plan: ASSESSMENT: * SCS is a 73 year-old female who presented to [facility] on 08/21/19 with chief complaint of chest pain * Patient has history of type 2 DM, hypertension, hyperlipidemia, asthma, hypothyroidism s/p thyroid resection, and craniotomy for CSF leak. * Based on A1c - patient's diabetes is very poorly controlled with current metformin regimen. Patient will require insulin upon discharge. * Patient initially very resistant to treatment with insulin, but seems to have come around to the idea after discussion with clinical systems educator * Patient was able to practice self-injection today * BSGs yesterday ranging 209-368 mg/dL * Patient received 74 units of insulin (20 basal, 49 SC bolus, and 5 IV regular) PLAN FOR INPATIENT GLYCEMIC CONTROL: * Holding outpatient oral diabetes medications * Basal insulin * Lantus 10 units given with lunch today * Lantus scale for HS * -20 units if BSG 180 mg/dL or less * -30 units if BSG 181 mg/dL or above (would be equivalent to 40 units for the day - weight-based, stress of 3 full dose) * Will then utilize once daily HS dosing starting tomorrow to facilitate discharge * Bolus insulin * NovoLog per scale ACHS or Q6hrs while NPO * Goal Range: Low 120 mg/dL - High 160 mg/dL * Correction Factor: 20 mg/dL/unit * Nutritional / Prandial insulin per carb ratio of 1 unit per 6 grams CHO consumed Discharge: Based on A1c of 13.2%, patient will require insulin upon discharge. Patient agre eable to once daily insulin injections. - Patient should be discharged with once daily Basaglar (based on insurance coverage) - dose to be determined - Continue home metformin 500 mg PO TIDM * Please note that the plan above was derived based on current level of insulin resistance and hospital stress. These recommendations are appropriate for inpatient admission only. Plan of care upon discharge will need to be reassessed to avoid potential outpatient hypo/hyperglycemia. Thank you.
--- NOTE | 2019-08-23 11:28 | Cardiology Progress Note ---
Date of Service August 23, 2019 Assessment & Plan (1) Pleurisy without effusion: (2) HTN (hypertension): Patient reports reaction to medication yesterday. I suspect related to colchicine which is known to cause GI side effects. Tolerated prednisone in the past. Repeat ECG without evidence of pericarditis. Discontinue colchicine. Consider addition of low-dose prednisone taper or trial of ibuprofen for treatment of pleurisy. CTA of the chest demonstrated right middle lobe atelectasis versus inflammatory process. Consider pulmonary consultation. Subjective Patient seen and examined the bedside. Reports reaction to medications yesterday. She was given colchicine and Solu-Medrol simultaneously. She then developed nausea and vomiting. [place] as if her throat was closing. Chest discomfort improved overnight. Offers no other concerns/complaints at this time. Review of Systems Review of Systems: All systems reviewed & are unremarkable except as noted in HPI & below Physical Exam Physical Exam: General: NAD, AAO x3, well nourished. HEENT: Normocephalic. A traumatic. Conjunctiva pink, no scleral icterus. Neck: No carotid bruits, the carotid upstrokes are brisk. No JVD. No HJR Heart: Regular normal S-1 and S-2 no S-3 or S-4 gallop. No murmurs or rub appreciated. PMI is not displaced. No RV heave. Lungs: Clear bilateral without rales , rhonchi, or wheeze. Abdomen: Normal bowel sounds. Soft. Nontender. No masses or organomegaly. No abdominal bruits. Extremities: No clubbing, cyanosis, or edema. Pulses: radial=2/4, Dorsalis pedis =2/4, posterior tibial=2/4. Neuro: Cranial nerves grossly intact. No focal motor deficit. Results & Data Vital Signs (Past 12 Hours) Vital Signs Temp Pulse Resp BP Pulse Ox 08/23/19 07:30 37.6 C H 81 16 147/78 H 91 08/23/19 00:17 36.5 C 85 20 154/82 H 95 (1) HTN (hypertension) Hypertension type: essential hypertension Qualified Code(s): I10 - Essential (primary) hypertension
[2019-08-23] MEDS ORDERED: INSULIN GLARGINE SOLOSTAR 100 UNITS/ML 3 ML PEN SC SCH ×2 (12:15→21:00)
--- NOTE | 2019-08-23 18:59 | Hospitalist Progress Note ---
Date of Service August 23, 2019 Assessment & Plan (1) Chest pain: no evidence of ACS appreciate input from Cardiology possible costochondritis , given chest wall tenderness tried Colchicine and IV solu medrol yesterday pt feels she had severe allergic reaction causing nausea /abdominal discomfort , difficult to swallow ECHO no wall motion abnormality Colchicine D/pipe PRN Tylenol and Toradol D/C tele - (2) HTN (hypertension): was elevated in ER - may be partially due to pain +/- component of anxiety. home antihypertensives continued ordered for PRN IV hydralazine for SBP > 160 (3) Type 2 diabetes mellitus: Very poorly controlled Hb A1c > 13 on Metformin pt been very resistant to use insulin appreciate input from certified adapted physical educator and Pharmacy for glycemic management pt was given teaching for self administration of insulin feels comfortable with injecting herself willing for once daily Lantus pt is counselled repeatedly risk for heart attack , renal failure , stroke with uncontrolled DM initially was reluctant for BSG check later willing to do once daily does not have a glucometer , will need script for meter /lancet and testing strips (4) Gait abnormality: - Consult case management for additional recommendations -home PT /home health - Consult PT/OT for evaluation - pt primarily wheelchair bound but does use [facility] to transfer Subjective Patient is sitting up in the chair, in no acute distress. Denies any shortness of breath, nausea, vomiting, abdominal pain. She still has some rib cage pain, which is worse when she bends over to tie her shoes, when she is propped up with pillows she feels comfortable. Discussed pain medication options, patient has many allergies or other bad experiences with medications and therefore she is not willing to try many meds. She did well with Tylenol and for now she would like to stick to it. Review of Systems Review of Systems: All systems reviewed & are unremarkable except as noted in HPI & below Constitutional: no fever, no chills and no fatigue Respiratory: no cough and no dyspnea Cardiovascular: + chest pain; no orthopnea, no palpitations and no edema Gastrointestinal: no abdominal pain, no nausea and no vomiting Physical Exam Physical Exam: Constitutional: elderly female WD/WN, in no acute distress Eyes: PERRL, EOMI, conjunctivae normal, anicteric sclerae ENMT: external ear and nose normal, oropharynx normal Neck: trachea midline Respiratory: normal respiratory effort, lungs clear to auscultation no respiratory distress, does not use accessory muscles and no cough Auscultation: no rales, no rhonchi and no wheezes Cardiovascular: Rate/Rhythm: regular rate and regular rhythm Heart Sounds: no gallop and no murmur Vessels: no JVD and no carotid bruit Extremities: normal capillary refill and + pedal edema (trace); no calf tenderness Gastrointestinal (Abdomen): Inspection/Auscultation: normal bowel sounds; abdomen not distended Percussion/Palpation: abdomen soft; abdomen nontender Musculoskeletal: Head/Neck/Chest: neck supple Extremities: no cyanosis and no clubbing Skin: no rashes, warm and dry no jaundice Neurologic: moves all extremities (has chronic bilat lower ext weakness /due to prior cranial surgery ) Psychiatric: Orientation: oriented x 3 Results & Data Vital Signs (Past 12 Hours) Vital Signs Temp Pulse Resp BP Pulse Ox 08/23/19 15:11 36.7 C 84 20 158/77 H 92 08/23/19 07:30 37.6 C H 81 16 147/78 H 91 Laboratory Results 08/23/19 08/23/19 08/23/19 Range/Units 16:32 11:35 07:54 POC Glucose 297 H 265 H 200 H (70-99) Urine Color Urine Appearance (Clear) Urine pH (4.5-7.5) Ur Specific [place] (1.000-1.030) Urine Protein (Negative) Urine Glucose (UA) (Negative) Urine Ketones (Negative) Urine Blood (Negative) Urine Nitrite (Negative) Urine Bilirubin (Negative) Urine Urobilinogen (Negative) Ur Leukocyte Esterase (Negative) Urine WBC (Auto) (0-5) /hpf Urine RBC (Auto) (0-4) /hpf U Hyaline Cast (Auto) (0-5) /lpf U Epithel Cells (Auto) (0-5) /lpf Urine Bacteria (Auto) (Negative) 08/23/19 08/23/19 08/23/19 Range/Units 04:07 00:23 00:21 POC Glucose 224 H 332 H* 306 H* (70-99) Urine Color Urine Appearance (Clear) Urine pH (4.5-7.5) Ur Specific [place] (1.000-1.030) Urine Protein (Negative) Urine Glucose (UA) (Negative) Urine Ketones (Negative) Urine Blood (Negative) Urine Nitrite (Negative) Urine Bilirubin (Negative) Urine Urobilinogen (Negative) Ur Leukocyte Esterase (Negative) Urine WBC (Auto) (0-5) /hpf Urine RBC (Auto) (0-4) /hpf U Hyaline Cast (Auto) (0-5) /lpf U Epithel Cells (Auto) (0-5) /lpf Urine Bacteria (Auto) (Negative) 08/22/19 08/22/19 08/22/19 Range/Units 20:33 20:32 19:30 POC Glucose 368 H* 347 H* (70-99) Urine Color Yellow Urine Appearance Clear (Clear) Urine pH 6.0 (4.5-7.5) Ur Specific [place] 1.027 (1.000-1.030) Urine Protein 1+ H (Negative) Urine Glucose (UA) 3+ H (Negative) Urine Ketones 3+ H (Negative) Urine Blood Negative (Negative) Urine Nitrite Negative (Negative) Urine Bilirubin Negative (Negative) Urine Urobilinogen Negative (Negative) Ur Leukocyte Esterase Negative (Negative) Urine WBC (Auto) 1-5 (0-5) /hpf Urine RBC (Auto) 0-4 (0-4) /hpf U Hyaline Cast (Auto) 0 (0-5) /lpf U Epithel Cells (Auto) 10-20 H (0-5) /lpf Urine Bacteria (Auto) Negative (Negative) 08/22/19 Range/Units 18:56 POC Glucose 328 H* (70-99) Urine Color Urine Appearance (Clear) Urine pH (4.5-7.5) Ur Specific [place] (1.000-1.030) Urine Protein (Negative) Urine Glucose (UA) (Negative) Urine Ketones (Negative) Urine Blood (Negative) Urine Nitrite (Negative) Urine Bilirubin (Negative) Urine Urobilinogen (Negative) Ur Leukocyte Esterase (Negative) Urine WBC (Auto) (0-5) /hpf Urine RBC (Auto) (0-4) /hpf U Hyaline Cast (Auto) (0-5) /lpf U Epithel Cells (Auto) (0-5) /lpf Urine Bacteria (Auto) (Negative) Medications Administered Current Inpatient Medications Acetaminophen (Tylenol) 650 mg PO Q4H PRN PRN Reason: Pain or Fever Stop: 09/20/19 16:32 Amlodipine Besylate (Norvasc) 5 mg PO QPM [facility]INE Stop: 09/21/19 20:59 Last Admin: 08/22/19 21:08 Dose: 5 mg Documented by: Dextrose (Dextrose 50%) 25 - 50 ml IV UD PRN; Protocol PRN Reason: Hypoglycemia Protocol Stop: 09/20/19 16:32 Glucagon (Glucagen) 1 mg SQ UD PRN; Protocol PRN Reason: Hypoglycemia Protocol Stop: 09/20/19 16:32 Glucose (Glucose 40%) 15 - 30 gm PO UD PRN; Protocol PRN Reason: Hypoglycemia Protocol Stop: 09/20/19 16:32 Glucose (Dex4 Glucose) 4 - 8 tabs PO UD PRN; Protocol PRN Reason: Hypoglycemia Protocol Stop: 09/20/19 16:32 Insulin Aspart (Novolog Flexpen) 0 units SC ACHS [facility] Stop: 09/20/19 16:32 Last Admin: 08/23/19 17:32 Dose: 14 units Documented by: Insulin Glargine (Lantus Solostar Pen) 0 units SC HS SABINE; Protocol Stop: 08/23/19 21:01 Ketorolac Tromethamine (Toradol) 15 mg IV Q6H PRN PRN Reason: Pain Stop: 08/27/19 17:00 Levothyroxine Sodium (Synthroid) 150 mcg PO DAILYBB [facility] Stop: 09/21/19 06:59 Last Admin: 08/23/19 06:25 Dose: 150 mcg Documented by: Losartan Potassium (Cozaar) 100 mg PO DAILY [facility] Stop: 09/21/19 08:59 Last Admin: 08/23/19 08:08 Dose: 100 mg Documented by: Miscellaneous (Carbohydrates For Hypoglycemia) 15 - 30 gm PO UD PRN PRN Reason: Hypoglycemia Protocol Stop: 09/20/19 16:32 Miscellaneous Information (Consult Glycemic Management Pharmacy) 1 ea N/A UD PRN PRN Reason: Consult Stop: 09/21/19 17:02 Nitroglycerin (Nitrostat) 0.4 mg SL UD PRN PRN Reason: Chest Pain Stop: 09/20/19 16:32 Ondansetron HCl (Zofran) 4 mg IV Q6H PRN PRN Reason: Nausea Stop: 09/21/19 12:21 (1) Chest pain Chest pain type: unspecified Qualified Code(s): R07.9 - Chest pain, unspecified
[2019-08-23] MEDS: AMLODIPINE BESYLATE 5 MG TAB PO SCH (20:36)
[2019-08-24] MEDS: LEVOTHYROXINE SODIUM 150 MCG TABLET PO SCH (06:09)
[2019-08-24] MEDS: LOSARTAN POTASSIUM 50 MG TAB PO SCH (08:44)
[2019-08-24] MEDS: INSULIN ASPART 100 UNITS/ML 3 ML PEN SC SCH ×4 (08:44→21:26)
--- NOTE | 2019-08-24 09:28 | Pharmacy Report ---
Pharmacy Glycemic Short Note 2 - Date of Service August 24, 2019 - Glycemic Short BSG Results (Last 24 hours): 08/23/19 08/23/19 08/23/19 11:35 16:32 20:08 POC Glucose 265 H 297 H 209 H 08/24/19 07:37 POC Glucose 143 H OUTPATIENT ANTIDIABETIC REGIMEN: * Metformin 500 mg PO TIDM * A1c = 13.2 % (08/22/19) * Based on A1c - patient's diabetes is very poorly controlled with current metformin regimen. Patient will require insulin upon discharge. * Patient agreeable to once daily insulin injections ASSESSMENT: * SCS is a 73 year-old female who presented to [facility] on 08/21/19 with chief complaint of chest pain * Patient has history of type 2 DM, hypertension, hyperlipidemia, asthma, hypothyroidism s/p thyroid resection, and craniotomy for CSF leak. * BSGs yesterday ranging 200-297 mg/dL * Patient received 85 units of insulin (40 basal and 45 SC bolus) * Fasting BSG this morning is 143 mg/dL (significant improvement from day previous) * Will continue with once daily Lantus to facilitate discharge * Education provided by diabetic educators (please see adaptive physical educator notes) * Plan is for discharge home with home health PLAN FOR INPATIENT GLYCEMIC CONTROL: * Will restart home metformin 500 mg PO TIDM in anticipation for discharge within next couple of days * Basal insulin * Lantus 40 units SC HS * Bolus insulin - loosen CR due to initiation of metformin * NovoLog per scale ACHS or Q6hrs while NPO * Goal Range: Low 120 mg/dL - High 160 mg/dL * Correction Factor: 20 mg/dL/unit * Nutritional / Prandial insulin per carb ratio of 1 unit per 9 grams CHO consumed PLAN FOR DISCHARGE: * Based on A1c of 13.2%, patient will require insulin upon discharge. Patient agreeable to once daily insulin injections. * Patient should be discharged with once daily Basaglar (based on insurance coverage) * -At this point - Basaglar 40 units SC HS is a reasonable dose for discharge * Continue home metformin 500 mg PO TIDM * Patient will require post-discharge follow-up to further manage diabetes
[2019-08-24] MEDS ORDERED: IBUPROFEN 200 MG TAB PO ONE (09:45)
--- NOTE | 2019-08-24 10:18 | Cardiology Progress Note ---
Date of Service August 24, 2019 Assessment & Plan (1) Pleurisy without effusion: (2) HTN (hypertension): I had a long discussion with the patient and her son regarding treatment options. Patient is anxious/concerned regarding potential medication reactions. We discussed treatment with low-dose prednisone versus ibuprofen. Ultimately, patient agreeable to ibuprofen 400 mg as needed. First dose will be administered now. No further inpatient cardiovascular testing or intervention. Thank you for allowing me to participate in the care of your patient. Subjective Patient seen and examined at the bedside. Reports pleuritic chest discomfort overnight. Tylenol yielding some relief. Telemetry discontinued. Patient denies orthopnea, PND, or lower extremity edema. Voices concern regarding potential reactions to multiple medications. Son is present at bedside today. He has questions regarding treatment options. Review of Systems Review of Systems: All systems reviewed & are unremarkable except as noted in HPI & below Physical Exam Physical Exam: General: NAD, AAO x3, well nourished. HEENT: Normocephalic. Atraumatic. Conjunctiva pink, no scleral icterus. Neck: No carotid bruits, the carotid upstrokes are brisk. No JVD. No HJR Heart: Regular normal S-1 and S-2 no S-3 or S-4 gallop. No murmurs or rub appreciated. PMI is not displaced. No RV heave. Lungs: Clear bilateral without rales , rhonchi, or wheeze. Abdomen: Normal bowel sounds. Soft. Nontender. No masses or organomegaly. No abdominal bruits. Extremities: No clubbing, cyanosis, or edema. Pulses: radial=2/4, Dorsalis pedis =2/4, posterior tibial=2/4. Neuro: Cranial nerves grossly intact. No focal motor deficit. Results & Data Vital Signs (Past 12 Hours) Vital Signs Temp Pulse Resp BP BP Pulse Ox 08/24/19 07:00 36.5 C 81 18 152/77 H 97 08/23/19 23:45 36.8 C 85 20 139/72 96 Laboratory Results Laboratory Results - last 24 hr 08/23/19 08/23/19 08/23/19 11:35 16:32 20:08 POC Glucose 265 H 297 H 209 H 08/24/19 07:37 POC Glucose 143 H (1) HTN (hypertension) Hypertension type: essential hypertension Qualified Code(s): I10 - Essential (primary) hypertension
[2019-08-24] MEDS ORDERED: METFORMIN HCL 500 MG TAB PO SCH (12:00)
--- NOTE | 2019-08-24 15:39 | Hospitalist Progress Note ---
Date of Service August 24, 2019 Assessment & Plan (1) Chest pain: no evidence of ACS appreciate input from Cardiology possible costochondritis , given chest wall tenderness tried Colchicine and IV solu medrol 2 days ago pt feels she had severe allergic reaction causing nausea /abdominal discomfort , difficult to swallow ECHO no wall motion abnormality Colchicine D/pipe PRN Tylenol and Ibuprofen D/C tele - (2) HTN (hypertension): was elevated in ER - may be partially due to pain +/- component of anxiety. home antihypertensives continued ordered for PRN IV hydralazine for SBP > 160 (3) Type 2 diabetes mellitus: Very poorly controlled Hb A1c > 13 on Metformin pt been very resistant to use insulin appreciate input from perinatal educator and Pharmacy for glycemic management pt was given teaching for self administration of insulin, feels comfortable with injecting herself willing for once daily Lantus pt is counselled repeatedly risk for heart attack , renal failure , stroke with uncontrolled DM initially was reluctant for BSG check , later willing to do once daily does not have a glucometer, will need script for meter /lancet and testing strips (4) Gait abnormality: - Consult case management for additional recommendations -home PT /home health - Consult PT/OT for evaluation - pt primarily wheelchair bound but does use walker to transfer Subjective Patient is lying in bed, in no acute distress. Patient's son present at the bedside. Patient currently denies any shortness of breath, palpitations, nausea, vomiting, fevers, chills, abdominal pain. Discussed plan of treatment, and discharge home with home health. In detail discussed the pain medications and their recommended dosages, son taking notes for the patient. Decided that we can discharge patient tomorrow, son will be picking her up, [facility] will be providing necessary aid, there should also be family around to help patient to transition. Review of Systems Review of Systems: All systems reviewed & are unremarkable except as noted in HPI & below Constitutional: no fever and no chills Respiratory: no cough and no dyspnea Cardiovascular: + chest pain (pleuritic); no palpitations and no edema Gastrointestinal: no abdominal pain, no nausea and no vomiting Physical Exam Physical Exam: Constitutional: elderly female lying in bed, WD/WN, in no acute distress Eyes: PERRL, EOMI, conjunctivae normal, anicteric sclerae ENMT: external ear and nose normal, oropharynx normal Neck: trachea midline Respiratory: normal respiratory effort, lungs clear to auscultation no respiratory distress, does not use accessory muscles and no cough Auscultation: no rales, no rhonchi and no wheezes Cardiovascular: Rate/Rhythm: regular rate and regular rhythm Heart Sounds: no gallop and no murmur Vessels: no JVD and no carotid bruit Extremities: normal capillary refill and + pedal edema (trace); no calf tenderness Gastrointestinal (Abdomen): Inspection/Auscultation: normal bowel sounds; abdomen not distended Percussion/Palpation: abdomen soft; abdomen nontender Musculoskeletal: Head/Neck/Chest: neck supple Extremities: no cyanosis and no clubbing Skin: no rashes, warm and dry no jaundice Neurologic: moves all extremities (has chronic bilat lower ext weakness /due to prior cranial surgery ) Psychiatric: Orientation: oriented x 3 Results & Data Vital Signs (Past 12 Hours) Vital Signs Temp Pulse Resp BP Pulse Ox 08/24/19 07:00 36.5 C 81 18 152/77 H 97 Laboratory Results 08/24/19 08/24/19 08/23/19 Range/Units 11:49 07:37 20:08 POC Glucose 221 H 143 H 209 H (70-99) 08/23/19 Range/Units 16:32 POC Glucose 297 H (70-99) Medications Administered Current Inpatient Medications Acetaminophen (Tylenol) 650 mg PO Q4H PRN PRN Reason: Pain or Fever Stop: 09/20/19 16:32 Last Admin: 08/23/19 23:34 Dose: 650 mg Documented by: Amlodipine Besylate (Norvasc) 5 mg PO QPM [facility]ABINE Stop: 09/21/19 20:59 Last Admin: 08/23/19 20:36 Dose: 5 mg Documented by: Dextrose (Dextrose 50%) 25 - 50 ml IV UD PRN; Protocol PRN Reason: Hypoglycemia Protocol Stop: 09/20/19 16:32 Glucagon (Glucagen) 1 mg SQ UD PRN; Protocol PRN Reason: Hypoglycemia Protocol Stop: 09/20/19 16:32 Glucose (Glucose 40%) 15 - 30 gm PO UD PRN; Protocol PRN Reason: Hypoglycemia Protocol Stop: 09/20/19 16:32 Glucose (Dex4 Glucose) 4 - 8 tabs PO UD PRN; Protocol PRN Reason: Hypoglycemia Protocol Stop: 09/20/19 16:32 Insulin Aspart (Novolog Flexpen) 0 units SC ACHS [facility] Stop: 09/20/19 16:32 Last Admin: 08/24/19 12:28 Dose: 9 units Documented by: Insulin Detemir (Levemir Flextouch) 40 units SC HS [facility] Stop: 09/23/19 20:59 Ketorolac Tromethamine (Toradol) 15 mg IV Q6H PRN PRN Reason: Pain Stop: 08/27/19 17:00 Levothyroxine Sodium (Synthroid) 150 mcg PO DAILYBB [facility] Stop: 09/21/19 06:59 Last Admin: 08/24/19 06:09 Dose: 150 mcg Documented by: Losartan Potassium (Cozaar) 100 mg PO DAILY [facility] Stop: 09/21/19 08:59 Last Admin: 08/24/19 08:44 Dose: 100 mg Documented by: Metformin HCl (Glucophage) 500 mg PO DAILY@1700 SABINE; Protocol Stop: 09/23/19 11:59 Miscellaneous (Carbohydrates For Hypoglycemia) 15 - 30 gm PO UD PRN PRN Reason: Hypoglycemia Protocol Stop: 09/20/19 16:32 Miscellaneous Information (Consult Glycemic Management Pharmacy) 1 ea N/A UD PRN PRN Reason: Consult Stop: 09/21/19 17:02 Nitroglycerin (Nitrostat) 0.4 mg SL UD PRN PRN Reason: Chest Pain Stop: 09/20/19 16:32 Ondansetron HCl (Zofran) 4 mg IV Q6H PRN PRN Reason: Nausea Stop: 09/21/19 12:21 (1) Chest pain Chest pain type: unspecified Qualified Code(s): R07.9 - Chest pain, unspecified
[2019-08-24] MEDS: IBUPROFEN 200 MG TAB PO PRN (18:35)
[2019-08-24] MEDS ORDERED: INSULIN DETEMIR FLEXPEN/FLEX TOUCH 100 UNITS/ML 3ML SC SCH (21:00)
[2019-08-24] MEDS ORDERED: INSULIN GLARGINE SOLOSTAR 100 UNITS/ML 3 ML PEN SC SCH (21:00)
[2019-08-24] MEDS: AMLODIPINE BESYLATE 5 MG TAB PO SCH (21:33)
[2019-08-25] MEDS: IBUPROFEN 200 MG TAB PO PRN (03:24)
[2019-08-25] MEDS: LEVOTHYROXINE SODIUM 150 MCG TABLET PO SCH (06:10)
--- NOTE | 2019-08-25 08:21 | Discharge Summary ---
Date of Service August 25, 2019 Admission HPI Per Admitting Provider This is a 73 y/o female with a PMH of craniotomy for CSF leak, papillary thyroid cancer s/p resection, uncontrolled DM2 with last A1c of 13.2 (03/05), hypertension, dyslipidemia, and acquired hypothyroidism who presents to the ED today with the abrupt onset of chest pain. Pt states that she was woken from sleep around 3 am today with sharp central chest pain "like someone was stabbing me with a knife" - pain radiated to her left breast and through to her back. She tried heat, "fizzy water," and position changes but the pain persistent so she came to the ED via EMS. She did not take any pain relievers at home as she states that she prefers to avoid medication when possible. Pain was initially rated as a 7/10 but is currently a 5/10 after receiving Tylenol in the ED. Chest pain is worse with taking a deep breath or leaning forward. It seems the most bearable if she is sitting straight up but it does not go away. She reports that it has been present constantly since it started. She had some associated shortness of breath but denies nausea, vomiting, diaphoresis, fevers, chills, wheezing, dizziness or headache. She reports no similar chest pain previously even thought she has a history of pneumonia and pleurisy. She is feeling fatigued but relates this to not sleeping much last night due to the pain. She developed a non-productive cough in the ambulance but otherwise denies cough, sore throat, congestion, rhinorrhea. Discharge Data Allergies Allergy/AdvReac Type Severity Reaction Status Date / Time aspirin Allergy Severe HIVES; Verified 08/21/19 15:51 DIFFICULTY BREATHING Penicillins Allergy Severe HIVES AND Verified 08/21/19 15:51 DIFFICULTY BREATHING Benzodiazepines Allergy Mild Unknown Verified 08/21/19 15:51 doxycycline Allergy Mild Unknown Verified 08/21/19 15:51 Sulfa (Sulfonamide Allergy Mild Unknown Verified 08/21/19 15:51 Antibiotics) aspartame Allergy Unknown _ Verified 08/21/19 15:51 diltiazem Allergy Unknown UNKNOWN Verified 08/21/19 15:51 REACTION epinephrine Allergy Unknown UNKNOWN Verified 08/21/19 15:51 REACTION moxifloxacin Allergy Unknown UNKNOWN Verified 08/21/19 15:51 REACTION nifedipine Allergy Unknown UNKNOWN Verified 08/21/19 15:51 REACTION simvastatin Allergy Unknown UNKNOWN Verified 09/08/15 10:56 REACTION PER PT vancomycin Allergy Unknown UNKNOWN Verified 09/08/15 10:56 REACTION colchicine AdvReac Intermediate Difficulty Verified 08/22/19 16:33 Breathing Consultations 08/21/19 14:30 ED Decision to Admit Stat 08/21/19 16:33 Consult Cardiology Routine Consult Case Management - Discharge Planning Routine Ordered Studies 08/21/19 13:11 CT angio chest PE protocol Stat Hospital Course (1) Chest pain: no evidence of ACS appreciate input from Cardiology possible costochondritis , given chest wall tenderness tried Colchicine and IV solu medrol 2 days ago pt feels she had severe allergic reaction causing nausea /abdominal discomfort , difficult to swallow ECHO no wall motion abnormality Colchicine D/pipe PRN Tylenol and Ibuprofen D/C tele - (2) HTN (hypertension): was elevated in ER - may be partially due to pain +/- component of anxiety. home antihypertensives continued ordered for PRN IV hydralazine for SBP > 160 (3) Type 2 diabetes mellitus: Very poorly controlled Hb A1c > 13 on Metformin pt been very resistant to use insulin appreciate input from perinatal educator and Pharmacy for glycemic management pt was given teaching for self administration of insulin, feels comfortable with injecting herself willing for once daily Lantus pt is counselled repeatedly risk for heart attack , renal failure , stroke with uncontrolled DM initially was reluctant for BSG check , later willing to do once daily does not have a glucometer, will need script for meter /lancet and testing strips (4) Gait abnormality: - Consult case management for additional recommendations -home PT /home health - Consult PT/OT for evaluation - pt primarily wheelchair bound but does use walker to transfer Discharge Plan Discharge Items Patient Disposition: Home - Home Health Services Reason For Visit: CHEST PAIN Discharge Diagnosis: Chest pain secondary to pleurisy, Uncontrolled diabetes mellitus type 2 Activity: Resume your previous activity Activity Comment: as tolerated Non-emergency contact: Primary Care Provider Call non-emergency contact if: you have any medication questions, your symptoms worsen and your pain is not controlled Follow-up/Referrals: Alfredito Hunter MD [Primary Care Provider] - 08/29/19 11:05 am Diet: Carb Consistent or DM2 and Heart Healthy Addtl Attending Provider Instructions: Please take Tylenol 500 mg to 1000 mg, 3 times a day (max dose 3000 to 3500 mg a day) You can also take ibuprofen 400 mg every 6 hours as needed for pain. To control your diabetes, you will need to monitor blood sugars, glucose meter was given to you. Please write down your blood sugar levels on the paper, and show it to your PCP at your next appointment. You were also instructed how to use insulin by our nurse informatics educator. Please make sure to use insulin as prescribed (40 units every evening). You will need to follow-up closely with your primary care provider. You have a scheduled appointment on August 29, at 11:05. Pending Studies at Discharge: No Stand-Alone Forms: My [facility] [address], Smoking Cessation Medications and DC Order Prescriptions: New acetaminophen [Mapap (acetaminophen)] 325 mg Tablet 650 mg PO TID 30 Days Qty: 90 RF: 0 ibuprofen 200 mg Tablet 400 mg PO QID PRN (Reason: pain) 30 Days Qty: 90 RF: 0 Levemir FlexTouch U-100 Insuln 100 unit/mL (3 mL) Insulin Pen 40 unit SC HS 30 Days Qty: 12 RF: 0 Continued amlodipine [Norvasc] 5 mg tablet 5 mg PO QPM RF: 0 levothyroxine 150 mcg tablet 150 mcg PO QAM RF: 0 losartan [Cozaar] 100 mg tablet 100 mg PO DAILY RF: 0 albuterol sulfate 90 mcg/actuation Hfa Aerosol Inhaler 2 puff INHALATION Q6H PRN (Reason: Shortness Of Breath Or Wheezing) RF: 0 Changed metformin [Glucophage] 500 mg tablet 500 mg PO BID Qty: 0 RF: 0 Discharge Orders: Discharge Order (Routine); Ordered 08/25/19 Ordered By: Rafa Coto Admission Data Admit Date/Time: 08/21/19 15:24 Attending Provider: Rafa Coto Admit Provider: Phong Espinoza Primary Care Provider: Alfredito Hunter Other Providers: Phong Espinoza ; Frederick Carrion ; Callie Delgado
[2019-08-25] MEDS: INSULIN ASPART 100 UNITS/ML 3 ML PEN SC SCH (08:39)
[2019-08-25] MEDS: LOSARTAN POTASSIUM 50 MG TAB PO SCH (08:40)
[2019-08-25] MEDS ORDERED: METFORMIN HCL 500 MG TAB PO SCH (17:00)
== END 2019-08-25 09:00 | disposition home health service (06) | DRG 206 ==
LOC: ED 11:48 → 2N 15:24 → SUATTDRO 15:24 → 2N 15:49

== ENCOUNTER 2020-05-16 16:14 | Inpatient (IN) ==
--- NOTE | 2020-05-16 16:50 | Emergency Department Note ---
Impression & Plan Hypoxia, Edema, Acute leg pain, Acute hypokalemia ED Provider Note NAME: LACI SOLITARIO AGE: 74 SEX: F : 1945 ARRIVES VIA: Walk-In INFORMANT: Patient ED PROVIDER(S): Marcos Villanueva DO CHIEF COMPLAINT: Right lower extremity swelling and pain HPI: Patient is a 74-year-old female who presents the ER for right lower extremity swelling and pain which has been present for the past 2 weeks. She notes that her knee is constantly held in flexion and is locked in flexion secondary to old injury. She notes she has never had this swelling before. She denies any headache, change in vision, chest pain shortness of breath nausea vomiting diarrhea. She denies any new weakness. She notes the pain is worse on palpation. She admits she has been on Lasix before but her potassium went so low that she almost . She saw her PCP was referred in for further work-up as they were concerned she may have a cellulitis and believe she needs to be watched overnight while she takes antibiotics due to her allergies. Denies any trauma. Pain is been present for the past 2 weeks. She denies any redness. No new swelling. Swelling has been constant for the past 2 weeks. ROS: See above HPI for pertinent positives & negatives. A total of 10 systems reviewed and were otherwise negative. PAST MEDICAL HISTORY:See Below PAST SURGICAL HISTORY:See Below FAMILY HISTORY:See Below SOCIAL HISTORY:See Below HOME MEDICATIONS:See Below ALLERGIES:See Below VITALS:See Below PHYSICAL EXAMINATION: GENERAL: Sitting up in bed, alert, well appearing, well nourished, mild distress EYE EXAM: normal conjunctiva. OROPHARYNX: no exudate, no erythema, lips, buccal mucosa, and tongue normal and mucous membranes are moist NECK: supple, no nuchal rigidity, no adenopathy, non-tender LUNGS: Clear to auscultation. Normal chest wall mechanics HEART: no murmurs, S1 normal and S2 normal ABDOMEN: abdomen soft, non-tender, normo-active bowel sounds, no masses, no rebound or guarding. SKIN: no rashes and no bruising UPPER EXTREMITIES: upper extremities are grossly normal. LOWER EXTREMITIES: Right calf larger than left. Edema in bilateral lower extremities. Significant pain on palpation of right calf. DP and PT 2 out of 4. Gross sensation intact. Able to wiggle toes. Knee held in flexion. Prepatellar swelling. NEURO EXAM: Normal sensorium, cranial nerves II-XII grossly intact, normal speech, no gross weakness of arms. MEDICAL DECISION MAKING: Patient is a 74-year-old female who presents the ER for pain and swelling in her right calf which is been unchanged for the past 2 weeks. She was seen by her PCP and referred in for cellulitis and admission for observation while she takes antibiotics to make sure she does not have an allergic reaction. IV was established blood work was obtained. Labs show no significant leukocytosis or anemia. INR unremarkable. BMP with a mild hypokalemia. LFTs bilirubin magnesium was unremarkable. Troponin was negative. TSH elevated at 25 with a T4 at 1 and a slightly low T3. UA was contaminated. Duplex of the right lower extremity was negative. There is no signs of surrounding erythema. Nothing to suggest cellulitis at this time. She has noticed no redness. The symptoms have been present for 2 weeks and would expect significant worsening of symptoms/redness if this was a cellulitis. No DVT with a negative ultrasound. No recent trauma. Question of this secondary to thyroid or CHF. Chest x-ray without pulmonary edema. Did give a dose of Lasix and potassium. She was hypo xic at 86 to 89%. Placed on nasal cannula. Discussed and updated bedside. Discussed the hospitalist for admission. Triage Nursing notes reviewed. Prior medical records reviewed Vital Signs: reviewed and remarkable for HTN Differential diagnosis: DVT, musculoskeletal, infection, joint effusion, trauma, lymphedema, idiopathic, CHF, as well as other pathologies. ER treatment provided: See below Diagnostics interpreted by me: ECG: Sinus rhythm rate 98 Normal axis Septal Q waves No PVCs Normal QTC Cardiac Monitoring: An order was placed for continuous cardiac monitoring. The monitor shows a rate of 99 with sinus rhythm. Laboratory studies: As stated above and show below. Imaging studies: Portable AP upright 1 view of the chest shows no focal infiltrate or pneumothorax Duplex of the right lower extremity shows no DVT Consultation(s): Discussed with Dr. Gonzalez for admission but she change her PCPs. Discussed with Dr. So for admission as she now follows with [facility] ED COURSE: Procedures: none Critical Care: I have personally spent 31 minutes of critical care time in the direct management of this patient. This includes bedside care, interpretation of diagnostic studies, and testing, discussion with consultants, patient, and family members, and other required patient management activities. This 31 minutes is in excess of all separately billable procedures. Past Med/Surg History Social History Smoking Status: Never smoker Hx Alcohol Use: No Hx Substance Use: No Preferred Language: Frisian Communication Ability: Effective Manager Sas Required: No Beliefs That Will Affect Care: None marital status: / Current Living Situation: Alone current occupational status: retired Feels Safe at Home: Yes Allergies Allergies Allergy/AdvReac Type Severity Reaction Status Date / Time aspirin Allergy Severe HIVES; Verified 05/16/20 17:37 DIFFICULTY BREATHING Penicillins Allergy Severe HIVES AND Verified 05/16/20 17:37 DIFFICULTY BREATHING Benzodiazepines Allergy Mild Unknown Verified 05/16/20 17:37 doxycycline Allergy Mild Unknown Verified 05/16/20 17:37 Sulfa (Sulfonamide Allergy Mild Unknown Verified 05/16/20 17:37 Antibiotics) aspartame Allergy Unknown Unknown Verified 05/16/20 17:37 diltiazem Allergy Unknown UNKNOWN Verified 05/16/20 17:37 REACTION epinephrine Allergy Unknown UNKNOWN Verified 05/16/20 17:37 REACTION moxifloxacin Allergy Unknown UNKNOWN Verified 05/16/20 17:37 REACTION nifedipine Allergy Unknown UNKNOWN Verified 05/16/20 17:37 REACTION simvastatin Allergy Unknown UNKNOWN Verified 05/16/20 17:37 REACTION PER PT vancomycin Allergy Unknown UNKNOWN Verified 05/16/20 17:37 REACTION colchicine AdvReac Intermediate Difficulty Verified 05/16/20 17:37 Breathing Home Meds Home Medications Medication Instructions Recorded Confirmed albuterol sulfate 2 puff INHALATION Q6H PRN 08/21/19 05/16/20 amlodipine [Norvasc] 5 mg PO QDL 08/21/19 05/16/20 losartan [Cozaar] 100 mg PO HS 08/21/19 05/16/20 acetaminophen [Tylenol Extra 500 mg PO Q6H PRN 05/16/20 05/16/20 Strength] insulin detemir U-100 [Levemir 30 unit SUBCUT .DAILY AT 0300 05/16/20 05/16/20 U-100 Insulin] levothyroxine 100 mcg PO DAILYBB 05/16/20 05/16/20 metformin [Glucophage] 500 mg PO BIDM 05/16/20 05/16/20 Results & Data (ED) Vital Signs Vital Signs - 24 hr 05/16/20 16:19 05/16/20 17:14 05/16/20 17:18 Temperature 36.8 C Temperature Source Oral Pulse Rate 97 H 99 H 96 H Pulse Rate from SpO2 Sensor 99 H 96 H Respiratory Rate 24 24 24 Blood Pressure 151/81 H 173/94 H Blood Pressure Mean 104 120 Blood Pressure Position Sitting Pulse Oximetry 91 91 91 Oxygen Delivery Method Room Air Sepsis Recent Fever Within 48 Hours No Sepsis New/Unexplained Change in Mental Status No Sepsis Action Taken by Nursing No Action Required 05/16/20 17:27 05/16/20 17:30 05/16/20 18:18 Temperature Temperature Source Pulse Rate 100 H 97 H 97 H Pulse Rate from SpO2 Sensor Respiratory Rate 24 22 22 Blood Pressure 165/76 H Blood Pressure Mean 131 Blood Pressure Position Pulse Oximetry 89 L Oxygen Delivery Method Room Air Sepsis Recent Fever Within 48 Hours Sepsis New/Unexplained Change in Mental Status Sepsis Action Taken by Nursing 05/16/20 18:19 Temperature Temperature Source Pulse Rate 95 H Pulse Rate from SpO2 Sensor Respiratory Rate 20 Blood Pressure 143/96 H Blood Pressure Mean 99 Blood Pressure Position Pulse Oximetry Oxygen Delivery Method Sepsis Recent Fever Within 48 Hours Sepsis New/Unexplained Change in Mental Status Sepsis Action Taken by Nursing Laboratory Data Result diagrams: 05/16/20 17:20 05/16/20 17:20 Lab Results 05/16/20 05/16/20 05/16/20 Range/Units 17:20 17:20 17:20 WBC 10.67 (4.8-10.8) K/uL RBC 4.91 (4.2-5.4) M/uL Hgb 13.8 (12.0-16.0) g/dL Hct 41.5 (37-47) % MCV 84.5 (80-100) fL MCH 28.1 (25-34) pg MCHC 33.3 (32-36) g/dL RDW Std Deviation 46.9 H (36.4-46.3) fL RDW Coeff of Smith 15.2 H (11.5-14.5) % Plt Count 310 (130-400) K/uL MPV 9.0 (7.4-10.4) fL Immature Gran % (Auto) 0.3 % Neut % (Auto) 76.8 % Lymph % (Auto) 13.2 % [place] % (Auto) 7.8 % Eos % (Auto) 1.6 % Baso % (Auto) 0.3 % Neut # (Auto) 8.20 H (1.4-6.5) K/uL Lymph # (Auto) 1.41 (1.2-3.4) K/uL [place] # (Auto) 0.83 H (0.11-0.59) K/uL Eos # (Auto) 0.17 (0-0.5) K/uL Baso # (Auto) 0.03 (0-0.2) K/uL Immature Gran # (Auto) 0.03 H (0.00-0.02) K/uL PT 11.0 (9.0-12.0) Seconds INR 1.0 (0.9-1.1) ABG pH (7.35-7.45) ABG pCO2 (35-46) mmHg ABG pO2 (80-95) mmHg ABG HCO3 (19-24) mmol/L ABG O2 Saturation (90-95) % ABG Base Excess (-9-1.8) mEq/L Xavier Test (Pos) Barometric Pressure mm/Hg Oxygen Given Sodium 139 (136-145) mmol/L Potassium 3.3 L (3.5-5.1) mmol/L Chloride 104 (98-107) mmol/L Carbon Dioxide 32 (21-32) mmol/L Anion Gap 3.0 (3-11) BUN 13 (7-18) mg/dl Creatinine 0.58 L (0.6-1.2) mg/dl Est Cr Clr Drug Dosing Not Reportable Est GFR ( Amer) 106.7 Est GFR (Non-Af Amer) 92.1 BUN/Creatinine Ratio 22.0 H (10-20) Glucose 116 H (70-99) mg/dl Calcium 8.5 (8.5-10.1) mg/dl Magnesium 2.1 (1.8-2.4) mg/dl Total Bilirubin 0.9 (0.2-1) mg/dl AST 14 L (15-37) U/L ALT 20 (12-78) U/L Alkaline Phosphatase 90 (45-117) U/L Troponin I < 0.015 (0-0.045) ng/ml Total Protein 8.2 (6.4-8.2) gm/dl Albumin 3.2 L (3.4-5.0) gm/dl Globulin 5.0 H (2.5-4.0) gm/dl Albumin/Globulin Ratio 0.6 L (0.9-2) TSH 25.300 H (0.300-4.500) uIu/ml Free T4 1.09 (0.8-1.6) ng/dl Total T3 (0.60-1.81) ng/ml Urine Color Urine Appearance (Clear) Urine pH (4.5-7.5) Ur Specific [place] (1.000-1.030) Urine Protein (Negative) Urine Glucose (UA) (Negative) Urine Ketones (Negative) Urine Blood (Negative) Urine Nitrite (Negative) Urine Bilirubin (Negative) Urine Urobilinogen (Negative) Ur Leukocyte Esterase (Negative) Urine WBC (Auto) (0-5) /hpf Urine RBC (Auto) (0-4) /hpf U Hyaline Cast (Auto) (0-5) /lpf U Epithel Cells (Auto) (0-5) /lpf Urine Bacteria (Auto) (Negative) 05/16/20 05/16/20 05/16/20 Range/Units 17:20 17:20 20:08 WBC (4.8-10.8) K/uL RBC (4.2-5.4) M/uL Hgb (12.0-16.0) g/dL Hct (37-47) % MCV (80-100) fL MCH (25-34) pg MCHC (32-36) g/dL RDW Std Deviation (36.4-46.3) fL RDW Coeff of Smith (11.5-14.5) % Plt Count (130-400) K/uL MPV (7.4-10.4) fL Immature Gran % (Auto) % Neut % (Auto) % Lymph % (Auto) % [place] % (Auto) % Eos % (Auto) % Baso % (Auto) % Neut # (Auto) (1.4-6.5) K/uL Lymph # (Auto) (1.2-3.4) K/uL [place] # (Auto) (0.11-0.59) K/uL Eos # (Auto) (0-0.5) K/uL Baso # (Auto) (0-0.2) K/uL Immature Gran # (Auto) (0.00-0.02) K/uL PT (9.0-12.0) Seconds INR (0.9-1.1) ABG pH 7.45 (7.35-7.45) ABG pCO2 46 (35-46) mmHg ABG pO2 63 L (80-95) mmHg ABG HCO3 31 H (19-24) mmol/L ABG O2 Saturation 91.7 (90-95) % ABG Base Excess 6.6 H (-9-1.8) mEq/L Xavier Test POS (Pos) Barometric Pressure 728.7 mm/Hg Oxygen Given ROOM AIR Sodium (136-145) mmol/L Potassium (3.5-5.1) mmol/L Chloride (98-107) mmol/L Carbon Dioxide (21-32) mmol/L Anion Gap (3-11) BUN (7-18) mg/dl Creatinine (0.6-1.2) mg/dl Est Cr Clr Drug Dosing Est GFR ( Amer) Est GFR (Non-Af Amer) BUN/Creatinine Ratio (10-20) Glucose (70-99) mg/dl Calcium (8.5-10.1) mg/dl Magnesium (1.8-2.4) mg/dl Total Bilirubin (0.2-1) mg/dl AST (15-37) U/L ALT (12-78) U/L Alkaline Phosphatase (45-117) U/L Troponin I (0-0.045) ng/ml Total Protein (6.4-8.2) gm/dl Albumin (3.4-5.0) gm/dl Globulin (2.5-4.0) gm/dl Albumin/Globulin Ratio (0.9-2) TSH (0.300-4.500) uIu/ml Free T4 (0.8-1.6) ng/dl Total T3 0.53 L (0.60-1.81) ng/ml Urine Color Yellow Urine Appearance Clear (Clear) Urine pH 6.5 (4.5-7.5) Ur Specific [place] 1.012 (1.000-1.030) Urine Protein 2+ H (Negative) Urine Glucose (UA) Negative (Negative) Urine Ketones Trace H (Negative) Urine Blood Trace H (Negative) Urine Nitrite Negative (Negative) Urine Bilirubin Negative (Negative) Urine Urobilinogen Negative (Negative) Ur Leukocyte Esterase Negative (Negative) Urine WBC (Auto) 1-5 (0-5) /hpf Urine RBC (Auto) 0-4 (0-4) /hpf U Hyaline Cast (Auto) 1-5 (0-5) /lpf U Epithel Cells (Auto) >30 H (0-5) /lpf Urine Bacteria (Auto) 1+ H (Negative) Administered Medications Discontinued Medications Potassium Chloride (Klor-Con M20) 40 meq PO NOW STA Stop: 05/16/20 19:20 Last Admin: 05/16/20 20:05 Dose: 40 meq Documented by: [id number] Discharge Plan Visit Data Chief Complaint: Leg Injury/Pain Stated Complaint: LEG IS SWELLING ED Provider: Marcos Villanueva Discharge Problem: Hypoxia, Edema, Acute leg pain, Acute hypokalemia Forms Stand Alone Forms: My [facility] [place] Prescriptions Prescriptions: No Action amlodipine [Norvasc] 5 mg tablet 5 mg PO QDL RF: 0 losartan [Cozaar] 100 mg tablet 100 mg PO HS RF: 0 albuterol sulfate 90 mcg/actuation Hfa Aerosol Inhaler 2 puff INHALATION Q6H PRN (Reason: Shortness Of Breath Or Wheezing) RF: 0 acetaminophen [Tylenol Extra Strength] 500 mg Tablet 500 mg PO Q6H PRN (Reason: Pain) RF: 0 levothyroxine 100 mcg tablet 100 mcg PO DAILYBB RF: 0 Levemir U-100 Insulin 100 unit/mL Solution 30 unit SUBCUT .DAILY AT 0300 RF: 0 metformin [Glucophage] 500 mg tablet 500 mg PO BIDM RF: 0 Discharge Problem: Edema Qualifiers: Edema type: unspecified Qualified Code(s): R60.9 - Edema, unspecified Acute leg pain Qualifiers: Laterality: right Qualified Code(s): M79.604 - Pain in right leg
--- NOTE | 2020-05-16 17:10 | XRay Report ---
XR chest 1V portable CLINICAL HISTORY: weakness dyspnea COMPARISON STUDY: 08/21/2019 FINDINGS: The bones soft tissues and hemidiaphragms are normal. The cardiomediastinal silhouette is n ormal. The lungs are clear. The pulmonary vasculature is normal. IMPRESSION: Negative chest. ACT 112: Negative or not required by law. The above report was generated using voice recognition software. It may contain grammatical, syntax or spelling errors. Electronically signed by: Alfredito Hassan M.D. 05/16/2020 5:09 PM
[2020-05-16 17:28] LABS: Basophils # (auto) 0.03 K/uL (0-0.2); Basophils % (auto) 0.3 %; Eosinophils # (auto) 0.17 K/uL (0-0.5); Eosinophils % (auto) 1.6 %; Hematocrit (blood only) 41.5 % (37-47); Hemoglobin 13.8 g/dL (12.0-16.0); Immature Granulocytes # (auto) 0.03 K/uL (0.00-0.02); Immature Granulocytes % (auto) 0.3 %; Lymphocytes # (auto) 1.41 K/uL (1.2-3.4); Lymphocytes % (auto) 13.2 %; Mean Corpuscular Hemoglobin 28.1 pg (25-34); Mean Corpuscular Hgb Conc 33.3 g/dL (32-36); Mean Corpuscular Volume 84.5 fL (80-100); Monocytes # (auto) 0.83 K/uL (0.11-0.59); Monocytes % (auto) 7.8 %; Neutrophils % (auto) 76.8 %; Platelet Count 310 K/uL (130-400); RDW Coefficient of Variation 15.2 % (11.5-14.5); RDW Standard Deviation 46.9 fL (36.4-46.3); Red Blood Count 4.91 M/uL (4.2-5.4); White Blood Count 10.67 K/uL (4.8-10.8)
[2020-05-16 17:38] LABS: Appearance Urine Clear (Clear); Bacteria Urine Automated 1+ (Negative); Bilirubin Urine Negative (Negative); Blood Urine Trace (Negative); Color Urine Yellow; Epithelial Cell Urine Auto >30 /lpf (0-5); Glucose Urine UA Negative (Negative); Ketones Urine Trace (Negative); Leukocyte Esterase Urine Negative (Negative); Nitrite Urine Negative (Negative); Protein Urine 2+ (Negative); RBC Urine Automated 0-4 /hpf (0-4); Specific Gravity Urine 1.012 (1.000-1.030); Urobilinogen Urine Negative (Negative); pH Urine 6.5 (4.5-7.5)
[2020-05-16 17:45] LABS: Alanine Aminotransferase 20 U/L (12-78); Albumin Level 3.2 gm/dl (3.4-5.0); Aspartate Aminotransferase 14 U/L (15-37); Blood Urea Nitrogen 13 mg/dl (7-18); Calcium 8.5 mg/dl (8.5-10.1); Carbon Dioxide 32 mmol/L (21-32); Chloride 104 mmol/L (98-107); Est GFR (African American) 106.7; Est GFR (Non-African American) 92.1; Glucose 116 mg/dl (70-99); Magnesium 2.1 mg/dl (1.8-2.4); Potassium 3.3 mmol/L (3.5-5.1); Sodium 139 mmol/L (136-145)
[2020-05-16 17:56] LABS: Albumin Globulin Ratio 0.6 (0.9-2); Alkaline Phosphatase 90 U/L (45-117); Bilirubin,Total 0.9 mg/dl (0.2-1); Total Protein 8.2 gm/dl (6.4-8.2); Troponin I < 0.015 ng/ml (0-0.045)
[2020-05-16 18:17] LABS: T4 Free Thyroxine 1.09 ng/dl (0.8-1.6)
--- NOTE | 2020-05-16 18:30 | Ultrasound Report ---
US venous doppler LE RT CLINICAL HISTORY: rle swelling PAIN. EDEMA. COMPARISON STUDY: No previous studies for comparison. FINDINGS: Real-time and color flow Doppler imaging were performed. Flow was seen within the femoral, popliteal and calf veins with no intraluminal thrombus demonstrated. The saphenous vein is patent. IMPRESSION: No evidence of deep venous thrombosis. ACT 112: Negative or not required by law. The above report was generated using voice recognition software. It may contain grammatical, syntax or spelling errors. Electronically signed by: Alfredito Hassan M.D. 05/16/2020 6:29 PM
[2020-05-16] MEDS ORDERED: POTASSIUM CHLORIDE 20 MEQ TABCR PO STA (19:19)
[2020-05-16] MEDS ORDERED: FUROSEMIDE 40 MG/4 ML VIAL IV STA (19:19)
[2020-05-16 20:39] LABS: Base Excess ABG 6.6 mEq/L (-9-1.8); HCO3 ABG 31 mmol/L (19-24); Oxygen Saturation ABG 91.7 % (90-95); PCO2 ABG 46 mmHg (35-46); PO2 ABG 63 mmHg (80-95); pH ABG 7.45 (7.35-7.45)
[2020-05-16 20:40] LABS: Allen Test POS (Pos)
--- NOTE | 2020-05-16 22:49 | History & Physical Report ---
Date of Service May 16, 2020 Assessment & Plan (1) Right leg swellin-year-old female with past medical history hypertension, type 2 diabetes, hypothyroidism, craniotomy for CSF leak, papillary thyroid cancer s/p resection presents for evaluation of right lower extremity swelling and pain. Right lower extremity swelling/pain/ gait abnormality -unknown etiology. Inflammatory process vs myositis vs chronic deconditioning Lower extremity Doppler: No evidence of deep venous thrombosis Given that her leg is firm, indurated will additionally obtain CT of right lower extremitypending We will check CK level Will not place on any antibiotics as there is low concern for cellulitis at this time. No significant leukocytosis Holding patient's amlodipine as can contribute to lower extremity swelling Pain management with scheduled Tylenol and as needed morphine for breakthrough pain. Patient notes that she does not like taking pain medication PT OT consult placed- pt primarily wheelchair bound but does use walker to transfer Consult case management for additional recommendations -home PT /home health Hypoxia -CXR: negative chest In ED patient hypoxic with O2 sat 89 requiring nasal cannula. At present patient satting well on room air. Titrate as necessary. Patient with no home O2 needs We will obtain d-dimer for further evaluation as we cannot PERC out this patient Hypertension Continue losartan 100 mg daily, holding amlodipine as above. Consider additional agent other than CCB -PRN IV hydralazine for SBP > 180 DM 2 Holding home metformin and insulin Levemir. Will place on SSI A1c 13.19 August 2019. Will repeat in a.m. Hypothyroidism TSH 25.3, free T4 WNL 1.09, total T3 0.53 low Patient notes she feels comfortable on 100 mcg levothyroxine. Please have ongoing discussion with her regarding any possible dosage changes going forward FEN/GI: Low-sodium, DM 2 diet DVT prophylaxis: Lovenox Full code Dispo: MedSurg. PT OT eval is pending. Appreciate CM assistance History of Present Illness Chief Complaint: Right leg swelling and pain Primary Care Provider: Alfredito Hunter MD 74-year-old female with past medical history hypertension, type 2 diabetes, hypothyroidism, craniotomy for CSF leak, papillary thyroid cancer s/p resection presents from PCP office for evaluation of right lower extremity swelling and pain. Patient was reportedly a [facility] patient and saw them in office 2 weeks ago for same complaint. Lower extremity ultrasound was obtained and showed no acute clot. Patient instructed to take Tylenol for pain, which she notes did not help. Frustrated with this care, patient went into [facility] walk-[facility] clinic earlier today with same ongoing complaints and was referred to ED for further evaluation. Patient describes pain as alternating between sharp and dull, nonradiating. Starts that right ankle and goes all the way up to right thigh. 8 out of 10 pain on severity scale. No known exacerbating factors. Patient is chronically in a wheelchair secondary to ?prior CVA (difficult to know history due to [facility] Pain alleviated by heat pad and cushioning with pillows. Patient denies any previous such occurrence like this ever before. States that she had blisters on her right lower extremity when this all started that have since resolved. Patient denies any fevers, chills, nausea, vomiting, diarrhea, chest pain, shortness of breath, palpitations, skin changes such as erythema, bug bites, trauma, known sick contacts or recent travel anywhere. Patient notes that about 2 weeks ago her PCP decreased her levothyroxine from 100 mcg to 75 mcg, however she did not like this due to unwanted side effects of dry skin so she increased back to 100. She thinks this may have also contributed to her leg swelling as it occurred on the same time period. Patient additionally notes that she had received PT in the past patient with no other acute concerns or complaints. Pertinent labs: Potassium 3.3, TSH 25.3, free T4 WNL 1.09, total T3 0.53 low, otherwise unremarkable Chest x-ray: Negative chest Lower extremity Doppler: No evidence of deep venous thrombosis ER course: IV Lasix 40 mg, p.o. KCl 40 mEq Allergies Allergy/AdvReac Type Severity Reaction Status Date / Time aspirin Allergy Severe HIVES; Verified 05/16/20 17:37 DIFFICULTY BREATHING Penicillins Allergy Severe HIVES AND Verified 05/16/20 17:37 DIFFICULTY BREATHING Benzodiazepines Allergy Mild Unknown Verified 05/16/20 17:37 doxycycline Allergy Mild Unknown Verified 05/16/20 17:37 Sulfa (Sulfonamide Allergy Mild Unknown Verified 05/16/20 17:37 Antibiotics) aspartame Allergy Unknown Unknown Verified 05/16/20 17:37 diltiazem Allergy Unknown UNKNOWN Verified 05/16/20 17:37 REACTION epinephrine Allergy Unknown UNKNOWN Verified 05/16/20 17:37 REACTION moxifloxacin Allergy Unknown UNKNOWN Verified 05/16/20 17:37 REACTION nifedipine Allergy Unknown UNKNOWN Verified 05/16/20 17:37 REACTION simvastatin Allergy Unknown UNKNOWN Verified 05/16/20 17:37 REACTION PER PT vancomycin Allergy Unknown UNKNOWN Verified 05/16/20 17:37 REACTION colchicine AdvReac Intermediate Difficulty Verified 05/16/20 17:37 Breathing Home Medications Home Medications Medication Instructions Recorded Confirmed Type albuterol sulfate 2 puff INHALATION Q6H PRN 08/21/19 05/16/20 History amlodipine [Norvasc] 5 mg PO QDL 08/21/19 05/16/20 History losartan [Cozaar] 100 mg PO HS 08/21/19 05/16/20 History acetaminophen [Tylenol Extra 500 mg PO Q6H PRN 05/16/20 05/16/20 History Strength] insulin detemir U-100 [Levemir 30 unit SUBCUT .DAILY AT 0300 05/16/20 05/16/20 History U-100 Insulin] levothyroxine 100 mcg PO DAILYBB 05/16/20 05/16/20 History metformin [Glucophage] 500 mg PO BIDM 05/16/20 05/16/20 History Past Med/Surg History Social History Smoking Status: Never smoker Hx Alcohol Use: No Hx Substance Use: No Preferred Language: Serbian Communication Ability: Effective 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 Beliefs That Will Affect Care: None marital status: / Current Living Situation: Alone current occupational status: retired Feels Safe at Home: Yes Review of Systems Review of Systems: All systems reviewed & are unremarkable except as noted in HPI & below Physical Exam Constitutional: WD/WN, vitals as above Eyes: PERRL, conjunctivae normal, anicteric sclerae ENMT: external ear and nose normal, oropharynx normal Respiratory: normal respiratory effort, lungs clear to auscultation Cardiovascular: RRR, no murmur, no edema Gastrointestinal (Abdomen): normal bowel sounds, soft, nontender, no hepatosplenomegaly Musculoskeletal: Extremities: + limited ROM of extremities (Right lower extremity flexion extension) Right calf tender to palpation Skin: no rashes, warm and dry Right lower extremity firm, indurated, slightly warm to touch. No cellulitic skin changes noted. Right calf slightly larger than the left. Psychiatric: Orientation: alert and oriented x 3 Affect: + anxious affect Lymphatic: + lymphedema (Bilateral lower extremities) Results & Data Results & Data ([facility]) Vital Signs (Past 12 Hours) Vital Signs Temp Pulse Resp BP Pulse Ox 05/16/20 18:19 95 H 20 143/96 H 05/16/20 18:18 97 H 22 05/16/20 17:30 97 H 22 165/76 H 05/16/20 17:27 100 H 24 89 L 05/16/20 17:18 96 H 24 91 05/16/20 17:14 99 H 24 173/94 H 91 05/16/20 16:19 36.8 C 97 H 24 151/81 H 91 Laboratory Results Laboratory Results - last 24 hr 05/16/20 05/16/20 05/16/20 17:20 17:20 17:20 WBC 10.67 RBC 4.91 Hgb 13.8 Hct 41.5 MCV 84.5 MCH 28.1 MCHC 33.3 RDW Std Deviation 46.9 H RDW Coeff of Smith 15.2 H Plt Count 310 MPV 9.0 Immature Gran % (Auto) 0.3 Neut % (Auto) 76.8 Lymph % (Auto) 13.2 Stewart % (Auto) 7.8 Eos % (Auto) 1.6 Baso % (Auto) 0.3 Neut # (Auto) 8.20 H Lymph # (Auto) 1.41 Stewart # (Auto) 0.83 H Eos # (Auto) 0.17 Baso # (Auto) 0.03 Immature Gran # (Auto) 0.03 H PT 11.0 INR 1.0 ABG pH ABG pCO2 ABG pO2 ABG HCO3 ABG O2 Saturation ABG Base Excess Xavier Test Barometric Pressure Oxygen Given Sodium 139 Potassium 3.3 L Chloride 104 Carbon Dioxide 32 Anion Gap 3.0 BUN 13 Creatinine 0.58 L Est Cr Clr Drug Dosing Not Reportable Est GFR ( Amer) 106.7 Est GFR (Non-Af Amer) 92.1 BUN/Creatinine Ratio 22.0 H Glucose 116 H Calcium 8.5 Magnesium 2.1 Total Bilirubin 0.9 AST 14 L ALT 20 Alkaline Phosphatase 90 Troponin I < 0.015 Total Protein 8.2 Albumin 3.2 L Globulin 5.0 H Albumin/Globulin Ratio 0.6 L TSH 25.300 H Free T4 1.09 Total T3 Urine Color Urine Appearance Urine pH Ur Specific [place] Urine Protein Urine Glucose (UA) Urine Ketones Urine Blood Urine Nitrite Urine Bilirubin Urine Urobilinogen Ur Leukocyte Esterase Urine WBC (Auto) Urine RBC (Auto) U Hyaline Cast (Auto) U Epithel Cells (Auto) Urine Bacteria (Auto) 05/16/20 05/16/20 05/16/20 17:20 17:20 20:08 WBC RBC Hgb Hct MCV MCH MCHC RDW Std Deviation RDW Coeff of Smith Plt Count MPV Immature Gran % (Auto) Neut % (Auto) Lymph % (Auto) Stewart % (Auto) Eos % (Auto) Baso % (Auto) Neut # (Auto) Lymph # (Auto) Stewart # (Auto) Eos # (Auto) Baso # (Auto) Immature Gran # (Auto) PT INR ABG pH 7.45 ABG pCO2 46 ABG pO2 63 L ABG HCO3 31 H ABG O2 Saturation 91.7 ABG Base Excess 6.6 H Xavier Test POS Barometric Pressure 728.7 Oxygen Given ROOM AIR Sodium Potassium Chloride Carbon Dioxide Anion Gap BUN Creatinine Est Cr Clr Drug Dosing Est GFR ( Amer) Est GFR (Non-Af Amer) BUN/Creatinine Ratio Glucose Calcium Magnesium Total Bilirubin AST ALT Alkaline Phosphatase Troponin I Total Protein Albumin Globulin Albumin/Globulin Ratio TSH Free T4 Total T3 0.53 L Urine Color Yellow Urine Appearance Clear Urine pH 6.5 Ur Specific [place] 1.012 Urine Protein 2+ H Urine Glucose (UA) Negative Urine Ketones Trace H Urine Blood Trace H Urine Nitrite Negative Urine Bilirubin Negative Urine Urobilinogen Negative Ur Leukocyte Esterase Negative Urine WBC (Auto) 1-5 Urine RBC (Auto) 0-4 U Hyaline Cast (Auto) 1-5 U Epithel Cells (Auto) >30 H Urine Bacteria (Auto) 1+ H Code Status & VTE Plan Code Status Full Supervising Physician Co-Signing Physician Notes Patient seen and examined, chart reviewed, case discussed with Dr. Cuevas and I agree with his assessment and plan as documented above. Briefly, patient is a 74-year-old female with history of hypertension, diabetes, hypothyroidism and asthma presenting with right lower extremity pain and swelling. Patient reports that her symptoms began with several water-filled blisters on the anterior aspect of her right pandya. After a day cleared she began to develop pain, swelling and firmness in the posterior aspect of her leg. Patient was evaluated for this complaint at [facility] approximately 2 weeks ago and had a lower extremity ultrasound that showed no DVT. Her symptoms persisted therefore she was seen at the [facility] walk-in clinic today and was subsequently referred to the ER. Patient hypoxic in the ER to 86% requiring placement of supplemental oxygen. She denies chest pain/cough/shortness of breath. On exam patient was afebrile, hemodynamically stable, no respiratory distress Skinwarm, intact, no rashes HEENTnormocephalic/atraumatic, pupils equal and reactive to light, neck supple Heart+ S1/S2, regular, no murmurs rubs or gallops Lungsclear to auscultation, no rales/rhonchi/wheezes Extremitiesright lower extremity warm and tender specifically posterior medial leg from ankle to popliteal fossa with firm induration of the posterior calf. Pain to palpation extends into the medial thigh as well. No crepitus/bulla/varicosity/lymphangitic streaking. No open wounds present on the leg or foot. I do not appreciate cellulitis of the right lower extremity. Labs and images reviewed. Significant for hypokalemia with K = 3.3. Hypoxemia with PO2 = 63 by ABG on room air. TSH = 25.3 T3 = 0.53 T4 = 1.09. Urine with 2+ protein Assessment/[id number] female with hypertension, diabetes, hypothyroid presenting with right lower extremity pain and swelling. Lower extremity ultrasound x2 negative over the last two weeks. Patient is afebrile, hemodynamically stable with no leukocytosis. Does not appear to be an infectious process at this time. ?Ruptured Orellana's cyst, ? Inflammatory process/myositis -Admit to medical floor Obtain CT of leg Check CK PT/OT Supplemental oxygen as needed Remainder of plan as above Resident Activity Tracking Resident Involvement: Resident Care Provided Care Provided: Adult Hospital Medicine
--- NOTE | 2020-05-17 00:21 | Billing Data ---
Date of Service May 16, 2020 Coding Level of Care Code 47848 Initial Inpt Care Lvl 3
[2020-05-17] MEDS ORDERED: GLUCOSE 40% GEL 15 GM TUBE PO PRN (00:59)
[2020-05-17] MEDS ORDERED: CARBOHYDRATES FOR HYPOGLYCEMIA PO PRN (00:59)
[2020-05-17] MEDS ORDERED: GLUCAGON FOR INJ 1 MG VIAL SQ PRN (00:59)
[2020-05-17] MEDS ORDERED: MoRPHine SULFATE 2 MG/ML CARP IV PRN (00:59)
[2020-05-17] MEDS ORDERED: ALBUTEROL HFA 8 GM INHALER INH PRN (00:59)
[2020-05-17] MEDS ORDERED: DEXTROSE 50% 50 ML SYRINGE IV PRN (00:59)
[2020-05-17] MEDS ORDERED: ALUMINUM/MAGNESIUM SUSP 30 ML UDC PO PRN (00:59)
[2020-05-17] MEDS ORDERED: GLUCOSE 10 TABS/TUBE PO PRN (00:59)
[2020-05-17] MEDS ORDERED: ONDANSETRON INJ 2 MG/ML 2 ML VIAL IV PRN (00:59)
[2020-05-17] MEDS ORDERED: DiphenhydrAMINE HCL 50 MG/ML VIAL IV STA (01:12)
[2020-05-17] MEDS: LEVOTHYROXINE SODIUM 100 MCG TABLET PO SCH (05:49)
[2020-05-17 05:57] LABS: Basophils # (auto) 0.03 K/uL (0-0.2); Basophils % (auto) 0.3 %; Eosinophils # (auto) 0.19 K/uL (0-0.5); Eosinophils % (auto) 2.1 %; Hematocrit (blood only) 39.5 % (37-47); Hemoglobin 12.3 g/dL (12.0-16.0); Immature Granulocytes # (auto) 0.02 K/uL (0.00-0.02); Immature Granulocytes % (auto) 0.2 %; Lymphocytes # (auto) 1.36 K/uL (1.2-3.4); Lymphocytes % (auto) 15.1 %; Mean Corpuscular Hgb Conc 31.1 g/dL (32-36); Mean Corpuscular Volume 86.6 fL (80-100); Mean Platelet Volume 9.1 fL (7.4-10.4); Monocytes # (auto) 0.62 K/uL (0.11-0.59); Monocytes % (auto) 6.9 %; Neutrophils # (auto) 6.77 K/uL (1.4-6.5); Neutrophils % (auto) 75.4 %; Platelet Count 270 K/uL (130-400); RDW Coefficient of Variation 15.2 % (11.5-14.5); RDW Standard Deviation 48.1 fL (36.4-46.3); Red Blood Count 4.56 M/uL (4.2-5.4); White Blood Count 8.99 K/uL (4.8-10.8)
[2020-05-17 06:09] LABS: Estimated Average Glucose 223 mg/dl; Hemoglobin A1C 9.4 % (4.5-5.6)
[2020-05-17 06:20] LABS: BUN Creatinine Ratio 20.8 (10-20); Creatinine Clr Calc Pharmacy 104.5 ml/min; Est GFR (Non-African American) 93.2; Potassium 3.7 mmol/L (3.5-5.1)
[2020-05-17 06:39] LABS: D Dimer 870 ug/L FEU (0-500)
[2020-05-17] MEDS: ENOXAPARIN INJ 40 MG/0.4 ML SYR SQ SCH (07:55)
[2020-05-17] MEDS: ACETAMINOPHEN 325 MG TAB PO SCH ×3 (07:55→20:29)
[2020-05-17] MEDS: INSULIN ASPART 100 UNITS/ML 3 ML PEN SC SCH ×4 (09:18→22:00)
[2020-05-17] MEDS: INSULIN GLARGINE SOLOSTAR 100 UNITS/ML 3 ML PEN SC SCH ×2 (09:18→22:00)
--- NOTE | 2020-05-17 11:30 | Medical Student Progress Note ---
Date of Service May 17, 2020 Assessment & Plan (1) Right leg swelling: Patient is 74-year-old female with past medical history hypertension, type 2 diabetes, hypothyroidism, craniotomy for CSF leak, papillary thyroid cancer s/p resection presents for evaluation of right lower extremity swelling and pain, is notably hypoxic and has an elevated D-dimer. Right lower extremity swelling/pain/ gait abnormality - Unknown etiology. Inflammatory process vs myositis vs DVT/PE - CK: 120 - Lower extremity Doppler: No evidence of deep venous thrombosis - Holding patient's amlodipine as can contribute to lower extremity swelling - Received one dose of lasix on admission. consider repeating. - Pain management:scheduled Tylenol, morphine for breakthrough pain. *Patient does not like taking pain medication - PT/OT consult appreciated: recommending inpatient rehab to regain independent function before d/c - Consult case management for additional recommendations: home PT /home health Hypoxia - D-dimer: 870 - CXR: no acute findings - Patient hypoxic as low as 84% O2 sat on RA requiring nasal cannula - CTA of Chest w/ contrast to r/o PE/DVT - Titrate as necessary. Patient with no home O2 needs Hypertension - Continue losartan 100 mg daily, holding amlodipine as above. Consider additional agent other than CCB -PRN IV hydralazine for SBP > 180 DM 2 - A1c: 9.4 (down from 13.2 in August 2019) - Fasting BS - Holding home metformin and insulin Levemir. Will place on SSI - Routine fingerstick glucose checks before meals Hypothyroidism - TSH 25.3, free T4 WNL 1.09, total T3 0.53 low - Continue 100 mcg levothyroxine for now. unclear when her last dose was changed. follow further. FEN/GI: Low-sodium, DM 2 diet (note allergies to sorbitol and aspartame) DVT prophylaxis: Lovenox Full code Dispo: MedSurg. Supervising Attestation Medical Student Supervision Note: I independently interviewed and examined the patient and verified the dickerson history and physical, reviewed labs and image studies, discussed the case Tunde Blank and agree with the findings and care plan. Right leg swelling - suspect sec to amlodipine with underlying lymphedema. though BNP normal - responded to one dose of lasix. will repeat. hold amlodipine. Hypoxia - CT chest negative. follow. Subjective Patient is a 74 y/o female with a PMHx of HTN, T2DM, hypothyroidism, craniotomy for CSF leak, and papillary thyroid cancer s/p resection who presented to the ED after attending [facility] walk-in clinic for R leg swelling and pain. Two weeks ago, she went to [facility] for the same complaint and a LE u/s did not reveal an acute clot. She was advised to take high strength Tylenol for the pain, which did not help. On 05/16, [facility] and was told to come to the ED. The pain is described as a mixture of sharp/dull and nonradi ating from the R ankle up to the R thigh. Severity is 8/10 and she gets relief with a heating pad and cushioning with pillows. Of note, she says there were three blisters/"rashy" spots present on her calf about two weeks ago. She administered Neosporin which helped them clear up and the swelling and pain came thereafter. Patient has been wheelchair bound since coming out of her coma s/p craniotomy, though she is able to ambulate to her chair by herself. She actively gardens and does not endorse any recent trauma and does not grow roses. Patient denies fever, chills, nausea, vomiting, diarrhea, chest pain, shortness of breath, or bug bites. Overnight, patient has still been endorsing great pain in her RLE, which has made sleeping difficult. She endorses pain with/without movement and with/ without palpation, RLE swelling, warmth, and stiffness compared to the LLE. Patient does not endorse any cough, shortness of breath, chest pain. Review of Systems Constitutional: no fever and no chills Respiratory: no cough, no dyspnea and no dyspnea on exertion Cardiovascular: + edema (RLE) and + calf pain (RLE); no chest pain and no palpitations Gastrointestinal: no abdominal pain, no heartburn, no nausea and no vomiting Musculoskeletal: + swelling (RLE, RUE) and + stiffness (RLE) Integumentary: + skin swelling (RLE) Neurologic: no numbness Physical Exam Constitutional: well developed, well nourished and cooperative; no acute distress (slightly anxious) Respiratory: normal respiratory effort, lungs clear to auscultation Cardiovascular: Rate/Rhythm: regular rate and regular rhythm Heart Sounds: normal S1 and normal S2; no gallop, no murmur and no cardiac rub Extremities: normal capillary refill and + pedal edema Musculoskeletal: Extremities: + limited ROM of extremities (Right lower extremity knee flexion extension) Skin: no rashes, warm and dry Psychiatric: Orientation: alert and oriented x 3 Affect: + anxious affect Lymphatic: + lymphedema (Bilateral lower extremities) Results & Data ([facility]) Vital Signs (Past 12 Hours) Vital Signs Temp Pulse Resp BP Pulse Ox 05/17/20 08:02 96 05/17/20 07:55 84 L 05/17/20 07:37 36.9 C 100 H 18 151/75 H 90 05/17/20 00:35 36.8 C 93 H 16 168/85 H 98 05/17/20 00:00 100 05/16/20 23:30 100 05/16/20 23:15 90
[2020-05-17] MEDS ORDERED: DIPHENOXYLATE/ATROPINE 2.5/0.025MG TAB PO ONE (12:13)
[2020-05-17] MEDS ORDERED: OPTIRAY 320 125ml IV ONE (13:29)
--- NOTE | 2020-05-17 13:45 | CT Scan Report ---
CT ANGIOGRAM OF THE CHEST CLINICAL HISTORY: Shortness of breath. Right lower extremity swelling. Possible pulmonary embolism. COMPARISON STUDY: 08/21/2019 TECHNIQUE: Following the IV administration of 120 mL of Optiray-320, CT angiogram of the thorax was p erformed from the thoracic inlet to the lung bases utilizing the pulmonary embolus protocol. Images a re reviewed in the axial, sagittal, and coronal planes. IV contrast was administered without complica tion. MIP imaging was performed. A dose lowering technique was utilized adhering to the principles o f ALARA. CT DOSE: 631.98 mGy.cm FINDINGS: No pathologically enlarged axillary mediastinal or hilar lymph nodes were visualized. There was no evidence of thoracic aortic dilatation. There were no pulmonary artery filling defects to indicate acute pulmonary embolism. No pleural effusions are visualized. There is mild bronchial wall thickening. There are atelectatic changes within the lingula and both lo wer lobes. The previously identified right middle lobe airspace opacities have resolved.. IMPRESSION: 1. No acute thoracic findings 2. No evidence of acute pulmonary embolism 3. No evidence of pathologic adenopathy 4. No focal airspace opacities to indicate pneumonia ACT 112: Negative or not required by law. Electronically signed by: Sotero Solo M.D. 05/17/2020 1:44 PM
--- NOTE | 2020-05-17 13:47 | CT Scan Report ---
CT tib/fib RT w con HISTORY: 74 years-old Female R LE swelling acute pain and swelling of the right lower leg COMPARISON: Duplex venous Doppler study 05/16/2020, right knee radiographs 09/08/2015 TECHNIQUE: Multiple axial CT images of the right tibia and fibula were obtained without the use of IV contrast. A dose lowering technique was used consistent with the principals of ORALIA. FINDINGS: There is mild to moderate diffuse subcutaneous edema of the lower leg, ankle and imaged foot. No drai nable fluid collections or hematoma. Mildly prominent popliteal fossa lymph nodes measure up to 8 mm, likely reactive. The tendons and ligaments are better evaluated by MRI. No gross ligamentous or tend inous injury identified. Limited evaluation of the knee secondary to positioning. There is tricompartmental osteoarthritis of the knee which is at least moderate within the lateral co mpartment, severe within the medial compartment and also severe within the patellofemoral compartment . There is a small joint effusion of the knee. No opaque foreign body identified. There is moderate t ibiotalar osteoarthritis with partially imaged severe multifocal osteoarthritis of the hindfoot and m idfoot. Demineralized appearance of the bones. No acute fracture, dislocation, suspicious bone lesion or osseous erosion to suggest osteomyelitis. IMPRESSION: 1. No acute fracture or dislocation. 2. Nonspecific mild to moderate subcutaneous edema of the lower leg, ankle and imaged foot without dr ainable fluid collection. Findings may be secondary to venous stasis, lymphedema or cellulitis. 3. Osteoarthritis of the knee, foot and ankle as above. 4. Prominent likely reactive popliteal lymph nodes. ACT 112: Negative or not required by law. The above report was generated using voice recognition software. It may contain grammatical, syntax o r spelling errors. Electronically signed by: Tomy Ramírez M.D. 05/17/2020 1:46 PM
[2020-05-17] MEDS ORDERED: FUROSEMIDE 40 MG in SYRINGE 0 ML IV ONE ×2 (16:22→17:00)
[2020-05-17] MEDS ORDERED: POTASSIUM CHLORIDE 20 MEQ/15 ML UDC PO ONE (17:00)
[2020-05-17] MEDS: LOSARTAN POTASSIUM 50 MG TAB PO SCH (20:28)
--- NOTE | 2020-05-18 06:44 | Electrocardiogram Report ---
Test Reason : Blood Pressure : / mmHG Vent. Rate : 098 BPM Atrial Rate : 098 BPM P-R Int : 158 ms QRS Dur : 082 ms QT Int : 352 ms P-R-T Axes : 058 057 058 degrees QTc Int : 449 ms Poor data quality, interpretation may be adversely affected Normal sinus rhythm Septal infarct (cited on or before 25-MAR-2006) Abnormal ECG When compared with ECG of 23-AUG-2019 09:18, No significant change Confirmed by Dash Fontanez ([id number]) on 05/18/2020 6:44:50 AM Referred By: REFERRED SELF Confirmed By:Dash Fontanez
[2020-05-18] MEDS: LEVOTHYROXINE SODIUM 100 MCG TABLET PO SCH (06:48)
[2020-05-18] MEDS: ENOXAPARIN INJ 40 MG/0.4 ML SYR SQ SCH ×2 (08:27→08:30)
[2020-05-18] MEDS: ACETAMINOPHEN 325 MG TAB PO SCH ×4 (08:27→21:01)
[2020-05-18] MEDS: INSULIN GLARGINE SOLOSTAR 100 UNITS/ML 3 ML PEN SC SCH ×2 (08:43→20:57)
[2020-05-18] MEDS: INSULIN ASPART 100 UNITS/ML 3 ML PEN SC SCH ×4 (08:43→20:57)
--- NOTE | 2020-05-18 12:57 | Orthopedic Consultation ---
Date of Consultation May 18, 2020 Assessment & Plan (1) Right leg swelling: (2) Acute leg pain: The origin of her right leg pain remains unknown. I do not think her knee arthritis is contributing to this clinical presentation. Differential diagnosis includes residual lymphedema, calf strain, and fasciitis related to her bilateral lower extremity edema. It can be expected to the right lower extremity is more sluggish to respond to diuretic and edema control due to his fixed knee contracture and reduced muscle activity. Laboratory exam does not demonstrate any infectious process. I think moving forward pain control be better off with an oral corticosteroid versus a knee intra-articular corticosteroid. I discussed this with the patient. She has had treatment for asthma but is fearful of all new medications because she has multiple allergic reactions. She was agreeable to try an oral corticosteroid if agreeable with the medicine team, but she would like to remain an inpatient while the medications administered for a day or so. I do recommend consideration of outpatient therapy for lymphedema. This can be done in an outpatient clinic. She can be weightbearing and range of motion as tolerated. Please call with any further questions. 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 I was asked to evaluate for potential contribution of knee osteoarthritis to her pain picture and consideration of a repeat corticosteroid injection to the knee. She reports that they discontinued the blood pressure medication which is helped with the lower extremity edema but the right lower extremity is been slower to respond than the left. 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 Over the past 2 weeks it is become severe. She presented to to outside providers. At [facility], she was evaluated with a lower extremity ultrasound to ensure no DVT. She was then evaluated by [facility] physicians recommend go to the hospital for lower extremity edema and pain. She has no desire to proceed with any narcotic pain control and prefers to determine what the reason for the pain is. She does have a history of knee arthritis that was treated with previous injections of corticosteroid and Visco supplementation. She states that this pain is dissimilar from her knee pain. She states the most focal aspect of the pain is located in the calf and posterior leg. She noticed some redness in that area that she has been laying with pressure on that area. Heat and cold packs have provided intermittent relief. She also has pain that radiates behind her knee and up into her groin. She denies any previous episodes of this. She states that she had significant swelling after taking a blood pressure medication around noon. Her afternoon swelling was the worst that she had seen. This medication is been discontinued. She denies any darryl injuries to the calf or knee. I asked if she has been pushing off with that leg in her wheelchair to do her mulching. She agreed this was a potential but did not feel any injury mechanism. She denies any fevers chills or other malaise. Allergies Allergy/AdvReac Type Severity Reaction Status Date / Time aspirin Allergy Severe HIVES; Verified 05/16/20 17:37 DIFFICULTY BREATHING Penicillins Allergy Severe HIVES AND Verified 05/16/20 17:37 DIFFICULTY BREATHING Benzodiazepines Allergy Mild Unknown Verified 05/16/20 17:37 doxycycline Allergy Mild Unknown Verified 05/16/20 17:37 Sulfa (Sulfonamide Allergy Mild Unknown Verified 05/16/20 17:37 Antibiotics) aspartame Allergy Unknown Unknown Verified 05/16/20 17:37 diltiazem Allergy Unknown UNKNOWN Verified 05/16/20 17:37 REACTION epinephrine Allergy Unknown UNKNOWN Verified 05/16/20 17:37 REACTION moxifloxacin Allergy Unknown UNKNOWN Verified 05/16/20 17:37 REACTION nifedipine Allergy Unknown UNKNOWN Verified 05/16/20 17:37 REACTION simvastatin Allergy Unknown UNKNOWN Verified 05/16/20 17:37 REACTION PER PT vancomycin Allergy Unknown UNKNOWN Verified 05/16/20 17:37 REACTION colchicine AdvReac Intermediate Difficulty Verified 05/16/20 17:37 Breathing Home Medications Home Medications Medication Instructions Recorded Confirmed Type albuterol sulfate 2 puff INHALATION Q6H PRN 08/21/19 05/16/20 History amlodipine [Norvasc] 5 mg PO QDL 08/21/19 05/16/20 History losartan [Cozaar] 100 mg PO HS 08/21/19 05/16/20 History acetaminophen [Tylenol Extra 500 mg PO Q6H PRN 05/16/20 05/16/20 History Strength] insulin detemir U-100 [Levemir 30 unit SUBCUT .DAILY AT 0300 05/16/20 05/16/20 History U-100 Insulin] levothyroxine 100 mcg PO DAILYBB 05/16/20 05/16/20 History metformin [Glucophage] 500 mg PO BIDM 05/16/20 05/16/20 History Patient History Medical History Asthma Cardiac arrest Dyslipidemia Gait abnormality History of ectopic HTN (hypertension) Hx of papillary thyroid carcinoma Hx of pleurisy Hypothyroidism (acquired) Mild intermittent asthma Type 2 diabetes mellitus Vitamin D deficiency Surgical History History of D&C Hx of brain surgery 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) Hx of section Hx of thyroidectomy Family History Other TIA (transient ischemic attack) Social History Smoking Status: Never smoker Hx Alcohol Use: No Hx Substance Use: No Preferred Language: Romansh Communication Ability: Effective Clutch Specialist Required: No Beliefs That Will Affect Care: None marital status: / Current Living Situation: Alone current occupational status: retired Feels Safe at Home: Yes Review of Systems Review of Systems: All systems reviewed & are unremarkable except as noted in HPI & below Physical Exam Physical Exam: Left lower extremity: Left lower extremity demonstrates full motion of her ankle knee and hip. There is mild slightly pitting edema in her leg. She is palpable DP and PT pulses. Right lower extremity: The right lower extremity has increased edema with tense subcutaneous tissues with and pitting edema. Her compartments are all soft. She has darryl tenderness to the posterior compartment. She has pain with passive dorsiflexion. She can actively dorsiflex and plantarflex with minimal discomfort. She is a palpable DP and PT pulse. She does have the appearance of resolving edema with epidermal lysis on the foot that is chronic. Right knee: The right knee has no significant palpable effusion though a trace effusion cannot be ruled out. The knee is held in a position of 60 degrees of flexion with only about 10 degrees of motion actively and passively. She is mildly diffusely tender. There is no evidence of erythema, warmth nor ecchymosis throughout the knee. Constitutional: well developed and well nourished; no acute distress and not intoxicated appearing ENMT: external ear and nose normal, oropharynx normal Respiratory: normal respiratory effort; no respiratory distress Cardiovascular: Extremities: normal capillary refill and + edema Skin: no rashes, warm and dry Psychiatric: A+Ox3, euthymic affect Results & Data ([facility]) Vital Signs (Past 12 Hours) Vital Signs Temp Pulse Resp BP Pulse Ox 05/18/20 07:27 37 C 83 20 155/76 H 95 White blood cell count and neutrophil count are within normal limits. The ESR is not return. She does have an significant elevated d-dimer. The right lower extremity CT was evaluated. Axial cuts are available. There is evidence of significant osteoarthrosis and deformity of the right knee. The subcutaneous tissues has abundant and symmetric soft tissue edema. There are no visible fluid collections. There is no obvious distortion to the gastrocnemius tissue planes. There is no evidence of fasciitis. Achilles mechanism is intact. PG Care Time/CCT Total # of Minutes Spent Total Time Spent with Patient: Total time spent is greater than 50% in coordination of care (as documented) at patient's floor/unit and/or counseling patient: Coding Level of Care Code 70483 Initial Inpt Care Lvl 3 Diagnoses Right leg swelling M79.89 Acute leg pain M79.604 Laterality: right (1) Acute leg pain Laterality: right Qualified Code(s): M79.604 - Pain in right leg
--- NOTE | 2020-05-18 15:45 | Hospitalist Progress Note ---
Date of Service May 18, 2020 Assessment & Plan (1) Right leg swelling: Patient is 74-year-old female with past medical history hypertension, type 2 diabetes, hypothyroidism, craniotomy for CSF leak, papillary thyroid cancer s/p resection presents for evaluation of right lower extremity swelling and pain, is notably hypoxic and has an elevated D-dimer. Right lower extremity swelling/pain/ gait abnormality - Unknown etiology. - CK: 120 - Lower extremity Doppler: No evidence of deep venous thrombosis - Holding patient's amlodipine as can contribute to lower extremity swelling - Received lasix x 2. consider repeating a dose in am. - CT leg showing severe knee arthritis - consulted ortho if that may be contributing to pain and role of steroid injection Doesn't think arthritis contributing. Recommend oral steroid for possible radicular etiology. Outpatient therapy for lymphedema. - Will start medrol dose sherley. - Consider spine imaging. patient declined xray today. - PT/OT consult appreciated: recommending inpatient rehab to regain independent function before d/c - Consult case management for additional recommendations: home PT /home health Hypoxia - CXR: no acute findings - Patient hypoxic as low as 84% O2 sat on RA requiring nasal cannula - CTA of Chest w/ contrast to r/o PE/DVT - Titrate as necessary. Patient with no home O2 needs - Add incentive spirometry Hypertension - Continue losartan 100 mg daily, holding amlodipine as above. Add spironolactone. -PRN IV hydralazine for SBP > 180 DM 2 - A1c: 9.4 (down from 13.2 in August 2019) - Fasting BS - Holding home metformin and insulin Levemir. On lantus and SSI - Routine fingerstick glucose checks before meals Hypothyroidism - TSH 25.3, free T4 WNL 1.09, total T3 0.53 low - Continue 100 mcg levothyroxine for now. unclear when her last dose was changed. follow further. FEN/GI: Low-sodium, DM 2 diet (note allergies to sorbitol and aspartame) DVT prophylaxis: Lovenox Full code Dispo: MedSurg. For ?Rehab placement with better pain control. Admission and Anticipated Discharge Date Admission Date: May 16, 2020 Subjective continues to have pain in right calf. no weakness in leg. no back pain. had multiple stools last night as reaction to IV dye. also had to urinate frequently due to lasix didn't get good sleep. Physical Exam Constitutional: WD/WN, vitals as above Respiratory: normal respiratory effort, lungs clear to auscultation Cardiovascular: RRR, no murmur, no edema Musculoskeletal: Right leg - generalized swelling in right leg. No pitting edema. Knee - no tenderness in/around knee joint. No erythema. Results & Data Results & Data ([facility]) Vital Signs (Past 12 Hours) Vital Signs Temp Pulse Resp BP Pulse Ox 05/18/20 15:16 36.8 C 90 16 157/84 H 91 05/18/20 07:27 37 C 83 20 155/76 H 95
[2020-05-18] MEDS ORDERED: methylPREDNISolone 4 MG TAB, 6 DAY TAPER PO SCH (16:00)
[2020-05-18] MEDS: methylPREDNISolone 4 MG TAB PO SCH ×2 (17:00→18:37)
[2020-05-18] MEDS: LOSARTAN POTASSIUM 50 MG TAB PO SCH (21:00)
[2020-05-18] MEDS ORDERED: methylPREDNISolone 4 MG TAB PO SCH (21:00)
[2020-05-19] MEDS: methylPREDNISolone 4 MG TAB PO SCH ×3 (06:33→17:47)
[2020-05-19] MEDS: LEVOTHYROXINE SODIUM 100 MCG TABLET PO SCH (06:33)
[2020-05-19] MEDS: ENOXAPARIN INJ 40 MG/0.4 ML SYR SQ SCH (08:38)
[2020-05-19] MEDS: ACETAMINOPHEN 325 MG TAB PO SCH ×3 (08:38→21:01)
[2020-05-19] MEDS: INSULIN GLARGINE SOLOSTAR 100 UNITS/ML 3 ML PEN SC SCH ×2 (08:40→20:58)
[2020-05-19] MEDS: INSULIN ASPART 100 UNITS/ML 3 ML PEN SC SCH ×4 (08:41→20:57)
--- NOTE | 2020-05-19 13:10 | Hospitalist Progress Note ---
Date of Service May 19, 2020 Assessment & Plan (1) Right leg swelling: Patient is 74-year-old female with past medical history hypertension, type 2 diabetes, hypothyroidism, craniotomy for CSF leak, papillary thyroid cancer s/p resection presents for evaluation of right lower extremity swelling and pain, is notably hypoxic and has an elevated D-dimer. Right lower extremity swelling/pain/ gait abnormality - Unknown etiology. - CK: 120 - Lower extremity Doppler: No evidence of deep venous thrombosis - Holding patient's amlodipine as can contribute to lower extremity swelling - Received lasix x 2. consider repeating a dose in am. - CT leg showing severe knee arthritis - consulted ortho if that may be contributing to pain and role of steroid injection Doesn't think arthritis contributing. Recommend oral steroid for possible radicular etiology. Outpatient therapy for lymphedema. - Started medrol dose sherley. - JAMES maria. - PT/OT consult appreciated: recommending inpatient rehab to regain independent function before d/c - Consult case management for additional recommendations: home PT /home health Hypoxia - CXR: no acute findings - Patient hypoxic as low as 84% O2 sat on RA requiring nasal cannula - CTA of Chest w/ contrast to r/o PE/DVT - ? fluid overload. Received 2 doses of lasix with no improvement. - Titrate as necessary. Patient with no home O2 needs - Added incentive spirometry Hypertension - Continue losartan 100 mg daily, holding amlodipine as above. Add spironolactone. -PRN IV hydralazine for SBP > 180 DM 2 - A1c: 9.4 (down from 13.2 in August 2019) - Fasting BS - Holding home metformin and insulin Levemir. On lantus and SSI - Routine fingerstick glucose checks before meals Hypothyroidism - TSH 25.3, free T4 WNL 1.09, total T3 0.53 low - Continue 100 mcg levothyroxine for now. unclear when her last dose was changed. follow further. FEN/GI: Low-sodium, DM 2 diet (note allergies to sorbitol and aspartame) DVT prophylaxis: Lovenox Full code Dispo: MedSurg. Admission and Anticipated Discharge Date Admission Date: May 16, 2020 Subjective didn't get much sleep last night. BP was high and she started to sweat. thinks it was from steroids. right leg pain still the same. no diarrhea no shortness of breath. Physical Exam Constitutional: well developed and well nourished Respiratory: normal respiratory effort, lungs clear to auscultation Cardiovascular: Rate/Rhythm: regular rate and regular rhythm right leg lymphedema + Results & Data Results & Data ([facility]) Vital Signs (Past 12 Hours) Vital Signs Temp Pulse Resp BP Pulse Ox 05/19/20 07:20 37.1 C 92 H 20 168/101 H 90
[2020-05-19] MEDS ORDERED: SPIRONOLACTONE 25 MG TAB PO ONE (13:23)
[2020-05-19] MEDS: LOSARTAN POTASSIUM 50 MG TAB PO SCH (20:59)
[2020-05-19] MEDS ORDERED: methylPREDNISolone 4 MG TAB PO SCH (21:00)
[2020-05-20 06:09] LABS: Calcium 8.7 mg/dl (8.5-10.1); Creatinine Clr Calc Pharmacy 82.7 ml/min; Est GFR (African American) 100.3; Est GFR (Non-African American) 86.6
[2020-05-20] MEDS: LEVOTHYROXINE SODIUM 100 MCG TABLET PO SCH (06:29)
[2020-05-20] MEDS: methylPREDNISolone 4 MG TAB PO SCH ×4 (06:29→21:04)
[2020-05-20] MEDS: SPIRONOLACTONE 25 MG TAB PO SCH (08:27)
[2020-05-20] MEDS: ENOXAPARIN INJ 40 MG/0.4 ML SYR SQ SCH ×2 (08:27→08:32)
[2020-05-20] MEDS: ACETAMINOPHEN 325 MG TAB PO SCH ×2 (08:28→12:14)
[2020-05-20] MEDS: INSULIN ASPART 100 UNITS/ML 3 ML PEN SC SCH ×4 (08:28→21:08)
[2020-05-20] MEDS: INSULIN GLARGINE SOLOSTAR 100 UNITS/ML 3 ML PEN SC SCH ×2 (08:28→21:07)
[2020-05-20] MEDS ORDERED: hydroCHLOROthiazide 25 MG TAB PO SCH (09:00)
[2020-05-20] MEDS ORDERED: diazePAM 5 MG TABLET PO PRN (10:27)
[2020-05-20] MEDS ORDERED: DICLOFENAC SOD 1% GEL 100 GM TUBE EXT ONE (10:27)
[2020-05-20] MEDS: MAGNESIUM SULFATE / D5W 1 GM/100 ML BAG IV SCH ×2 (10:51→12:27)
[2020-05-20] MEDS: DICLOFENAC SOD 1% GEL 100 GM TUBE EXT SCH ×3 (12:27→21:04)
[2020-05-20] MEDS: HydrALAZINE HCL 20 MG/ML VIAL IV PRN (16:26)
--- NOTE | 2020-05-20 19:01 | Hospitalist Progress Note ---
Date of Service May 20, 2020 Assessment & Plan (1) Right leg swelling: Patient is 74-year-old female with past medical history hypertension, type 2 diabetes, hypothyroidism, craniotomy for CSF leak, papillary thyroid cancer s/p resection presents for evaluation of right lower extremity swelling and pain, is notably hypoxic and has an elevated D-dimer. Right lower extremity swelling/pain/ gait abnormality - extensive w/u as below - CK: 120 - Lower extremity Doppler: No evidence of deep venous thrombosis - Held patient's amlodipine as can contribute to lower extremity swelling - but since no clear improvement, will result - Received lasix x 2. - CT leg showing severe knee arthritis - consulted ortho if that may be contributing to pain and role of steroid injection Doesn't think arthritis contributing. Recommend oral steroid for possible radicular etiology. Outpatient therapy for lymphedema. - Started medrol dose sherley. - JAMES stocking. - PT/OT consult appreciated: recommending inpatient rehab to regain independent function before d/c ---->after all of above negative but also with palpable area of pain/tenderness - almost certainly is area of calf muscle spasms - probably brought on by baseline contractures, worsening of baseline contractures given inability to have ongoing home PT during early phase of COVID19 pandemic, exacerbated/brought on by dehydration from working in the heat -voltaren gel QID -mag sulfate IV -valium as muscle relaxant -OMT somatic dysfunction R leg -OMT as above, explained stretching/how to stretch passively depending on position when sitting Hypoxia - CXR: no acute findings - Patient hypoxic as low as 84% O2 sat on RA requiring nasal cannula - CTA of Chest w/ contrast - was negative - resolved w time/incentive spirometry - possibly was all atelectasis Hypertension - Continue losartan 100 mg daily, aldactone added. resume norvasc (follow for swelling - was held out of concern for that - but seems unlikely to have been th e culprit for her leg sx) -PRN IV hydralazine for SBP > 180 DM 2 - A1c: 9.4 (down from 13.2 in August 2019) - sugars still sl high - likely baseline plus steroids - metformin on hold -titrate basal/bolus insulins Hypothyroidism - TSH 25.3, free T4 WNL 1.09, total T3 0.53 low - Continue 100 mcg levothyroxine for now. unclear when her last dose was changed. outpt f/u DVT prophylaxis: Lovenox ordered, but she declines and notes she is moving around a lot within the room dispo - work on pain control/spasms further, PT/OT eval and treat ongoing, then determine rehab vs home w home health Admission and Anticipated Discharge Date Admission Date: May 16, 2020 Subjective R leg pain. started without clear provoking factors. worst at top/middle of calf. radiates down to back of ankle and up back of thigh some - but far and away worst in middle of calf. no back pain. extensive w/u negative. very anxious. also willing to go to rehab if needed. discussed that she had PT coming to house and working on leg ROM until covid restrictions ended this. prior to pain onset, was working out in the heat a good deal, doesn't believe she was drinking enough. Review of Systems Review of Systems: All systems reviewed & are unremarkable except as noted in HPI & below Physical Exam Physical Exam: gen aao pleasant but anxious nad heent nc at mmm breathing unlabored no accessory muscles good effort skin no rashes no pallor or icterus. msk/ost - R calf muscle region VERY tender, quite [id number] area of musculature that palpation reproduces her pain and elicits fairly exquisite tenderness. no crepitis, no erythema. gentle myofascial release done - pt tolerated well, small amount of improvement in soft tissue. Results & Data Results & Data ([facility]) Vital Signs (Past 12 Hours) Vital Signs Temp Pulse Resp BP Pulse Ox 05/20/20 17:05 86 171/83 H 05/20/20 16:25 81 186/83 H 05/20/20 15:50 83 182/90 H 05/20/20 15:15 86 176/83 H 05/20/20 14:59 97.5 F L 78 16 183/95 H 91 05/20/20 07:16 98.4 F 79 18 169/90 H 95 PG Care Time/CCT Total # of Minutes Spent Total Time Spent with Patient: Total time spent is greater than 50% in coordination of care (as documented) at patient's floor/unit and/or counseling patient: Coding Level of Care Code 89832 Subseq Hosp Care Lvl 3 Diagnoses Right leg swelling M79.89 CPT Codes Musculoskeletal - Musculoskeletal: 09818 Osteo Willy Tr 1-2 Body regions ([id number])
[2020-05-20] MEDS: LOSARTAN POTASSIUM 50 MG TAB PO SCH (21:03)
[2020-05-21] MEDS: LEVOTHYROXINE SODIUM 100 MCG TABLET PO SCH (06:32)
[2020-05-21] MEDS: methylPREDNISolone 4 MG TAB PO SCH ×3 (06:32→20:41)
[2020-05-21] MEDS: HydrALAZINE HCL 20 MG/ML VIAL IV PRN (07:47)
[2020-05-21] MEDS: SPIRONOLACTONE 25 MG TAB PO SCH (08:54)
[2020-05-21] MEDS: INSULIN GLARGINE SOLOSTAR 100 UNITS/ML 3 ML PEN SC SCH ×2 (09:00→20:43)
[2020-05-21] MEDS: INSULIN ASPART 100 UNITS/ML 3 ML PEN SC SCH ×4 (09:02→20:45)
[2020-05-21] MEDS: DICLOFENAC SOD 1% GEL 100 GM TUBE EXT SCH ×4 (09:09→23:49)
[2020-05-21] MEDS: AMLODIPINE BESYLATE 5 MG TAB PO SCH (10:02)
[2020-05-21] MEDS ORDERED: Nursing to Pharmacy Communication SCH (18:30)
[2020-05-21] MEDS ORDERED: diazePAM 5 MG TABLET PO PRN (19:09)
--- NOTE | 2020-05-21 19:13 | Hospitalist Progress Note ---
Date of Service May 21, 2020 Assessment & Plan (1) Right leg swelling: Patient is 74-year-old female with past medical history hypertension, type 2 diabetes, hypothyroidism, craniotomy for CSF leak, papillary thyroid cancer s/p resection presents for evaluation of right lower extremity swelling and pain, is notably hypoxic and has an elevated D-dimer. Right lower extremity swelling/pain/ gait abnormality - extensive w/u as below - CK: 120 - Lower extremity Doppler: No evidence of deep venous thrombosis - Held patient's amlodipine as can contribute to lower extremity swelling - but since no clear improvement, will result - Received lasix x 2. - CT leg showing severe knee arthritis - consulted ortho if that may be contributing to pain and role of steroid injection Doesn't think arthritis contributing. Recommend oral steroid for possible radicular etiology. Outpatient therapy for lymphedema. - continue medrol dose sherley. - JAMES stocking. - PT/OT consult appreciated, ongoing eval and treat ---->almost certainly is area of calf muscle spasms - probably brought on by baseline contractures, worsening of baseline contractures given inability to have ongoing home PT during early phase of COVID19 pandemic, exacerbated/brought on by dehydration from working in the heat -voltaren gel QID -valium as muscle relaxant up to TID prn spasms -OMT -therapy after discharge - still to be determined if home/outpt vs inpatient somatic dysfunction R leg -OMT as above again, passive stretching as possible Hypoxia - CXR: no acute findings - Patient hypoxic as low as 84% O2 sat on RA requiring nasal cannula - CTA of Chest w/ contrast - was negative -improved w time/incentive spirometry - possibly was all atelectasis Hypertension - Continue losartan 100 mg daily, aldactone added. resumed norvasc (follow for swelling - was held out of concern for that - but seems unlikely to have been the culprit for her leg sx - thus far swelling stable) -PRN IV hydralazine for SBP > 180 DM 2 - A1c: 9.4 (down from 13.2 in August 2019) - sugars still sl high - likely baseline plus steroids - metformin on hold -continue to titrate basal/bolus insulins Hypothyroidism - TSH 25.3, free T4 WNL 1.09, total T3 0.53 low - Continue 100 mcg levothyroxine for now. unclear when her last dose was changed. outpt f/u DVT prophylaxis: Lovenox ordered, but she declines and notes she is moving around a lot within the room dispo - work on pain control/spasms further, PT/OT eval and treat ongoing, then determine rehab vs home w home health Admission and Anticipated Discharge Date Admission Date: May 16, 2020 Subjective upset at the time i see her as her dad is in [facility] and apparently had a delirious type episode and took a swing at someone - now sedated. otherwise notes that calf pain is feeling a bit better. would like to progress to where she could go home if possible but is amenable to the idea of rehab. feels like voltaren he lping, valium helped. doesn't think IV magnesium did much. Review of Systems Review of Systems: All systems reviewed & are unremarkable except as noted in HPI & below Physical Exam Physical Exam: gen aao pleasantly anxious no distress. heent nc at mmm breathing unlabored no accessory muscles good effort skin no rashes no pallor or icterus msk/ost - R sided calf musclulature high tone/tender/decreased ROM - but less than yesterday - gentle direct myofascial with ongoing improvement - pt tolerated well Results & Data Results & Data ([facility]) Vital Signs (Past 12 Hours) Vital Signs Temp Pulse Pulse Resp BP BP Pulse Ox 05/21/20 15:31 98.6 F 87 18 169/80 H 92 05/21/20 12:30 96 H 169/84 H 05/21/20 12:10 101 H 187/93 H 05/21/20 12:05 202/93 H 05/21/20 09:17 152/79 H 05/21/20 08:22 171/72 H 05/21/20 07:37 97.5 F L 84 16 190/102 H 91 PG Care Time/CCT Total # of Minutes Spent Total Time Spent with Patient: Total time spent is greater than 50% in coordination of care (as documented) at patient's floor/unit and/or counseling patient: Coding Level of Care Code 56454 Subseq Hosp Care Lvl 3 Diagnoses Right leg swelling M79.89 CPT Codes Musculoskeletal - Musculoskeletal: 36783 Osteo Willy Tr 1-2 Body regions ([id number])
[2020-05-21] MEDS: LOSARTAN POTASSIUM 50 MG TAB PO SCH (20:40)
[2020-05-22] MEDS: DICLOFENAC SOD 1% GEL 100 GM TUBE EXT SCH ×3 (04:03→12:27)
[2020-05-22] MEDS: LEVOTHYROXINE SODIUM 100 MCG TABLET PO SCH (06:20)
[2020-05-22] MEDS ORDERED: methylPREDNISolone 4 MG TAB PO SCH (07:00)
[2020-05-22 07:40] VITALS: TEMP 97.5; O2SAT 92
[2020-05-22] MEDS: SPIRONOLACTONE 25 MG TAB PO SCH (08:30)
[2020-05-22] MEDS: AMLODIPINE BESYLATE 5 MG TAB PO SCH (08:31)
[2020-05-22] MEDS: INSULIN ASPART 100 UNITS/ML 3 ML PEN SC SCH ×2 (08:31→12:26)
[2020-05-22] MEDS: INSULIN GLARGINE SOLOSTAR 100 UNITS/ML 3 ML PEN SC SCH (08:32)
[2020-05-22 13:31] VITALS: BP 152/79; PULSE 76
--- NOTE | 2020-05-22 18:49 | Discharge Summary ---
Date of Service May 22, 2020 Admission HPI Per Admitting Provider 74-year-old female with past medical history hypertension, type 2 diabetes, hypothyroidism, craniotomy for CSF leak, papillary thyroid cancer s/p resection presents from PCP office for evaluation of right lower extremity swelling and pain. Patient was reportedly a [facility] patient and saw them in office 2 weeks ago for same complaint. Lower extremity ultrasound was obtained and showed no acute clot. Patient instructed to take Tylenol for pain, which she notes did not help. Frustrated with this care, patient went into [facility] walk-in clinic earlier today with same ongoing complaints and was referred to ED for further evaluation. Patient describes pain as alternating between sharp and dull, nonradiating. Starts that right ankle and goes all the way up to right thigh. 8 out of 10 pain on severity scale. No known exacerbating factors. Patient is chronically in a wheelchair secondary to ?prior CVA (difficult to know history due to inability to access outpatient [facility] records). Pain alleviated by heat pad and cushioning with pillows. Patient denies any previous such occurrence like this ever before. States that she had blisters on her right lower extremity when this all started that have since resolved. Patient denies any fevers, chills, nausea, vomiting, diarrhea, chest pain, shortness of breath, palpitations, skin changes such as erythema, bug bites, trauma, known sick contacts or recent travel anywhere. Patient notes that about 2 weeks ago her PCP decreased her levothyroxine from 100 mcg to 75 mcg, however she did not like this due to unwanted side effects of dry skin so she increased back to 100. She thinks this may have also contributed to her leg swelling as it occurred on the same time period. Patient additionally notes that she had received PT in the past patient with no other acute concerns or complaints. Pertinent labs: Potassium 3.3, TSH 25.3, free T4 WNL 1.09, total T3 0.53 low, otherwise unremarkable Chest x-ray: Negative chest Lower extremity Doppler: No evidence of deep venous thrombosis ER course: IV Lasix 40 mg, p.o. KCl 40 mEq Principal Diagnosis leg pain / calf spasms Discharge Exam gen aao pleasant nad heent nc at mmm breathing unlabored no accessory muscles good effort skin no rashes no pallor or icterus. msk/ost - R proximal calf musculature high tone/tender/decreased ROM - but far less than before - direct myofascial - improved again - tolerated well. edema going down. Discharge Data Allergies Allergy/AdvReac Type Severity Reaction Status Date / Time aspirin Allergy Severe HIVES; Verified 05/16/20 17:37 DIFFICULTY BREATHING Penicillins Allergy Severe HIVES AND Verified 05/16/20 17:37 DIFFICULTY BREATHING Benzodiazepines Allergy Mild Unknown Verified 05/16/20 17:37 doxycycline Allergy Mild Unknown Verified 05/16/20 17:37 Sulfa (Sulfonamide Allergy Mild Unknown Verified 05/16/20 17:37 Antibiotics) aspartame Allergy Unknown Unknown Verified 05/16/20 17:37 diltiazem Allergy Unknown UNKNOWN Verified 05/16/20 17:37 REACTION epinephrine Allergy Unknown UNKNOWN Verified 05/16/20 17:37 REACTION moxifloxacin Allergy Unknown UNKNOWN Verified 05/16/20 17:37 REACTION nifedipine Allergy Unknown UNKNOWN Verified 05/16/20 17:37 REACTION simvastatin Allergy Unknown UNKNOWN Verified 05/16/20 17:37 REACTION PER PT vancomycin Allergy Unknown UNKNOWN Verified 05/16/20 17:37 REACTION colchicine AdvReac Intermediate Difficulty Verified 05/16/20 17:37 Breathing Consultations 05/16/20 19:20 ED Decision to Admit Stat 05/17/20 00:59 Consult Case Management - Discharge Planning Routine 05/17/20 01:57 Consult Behavioral Health Liaison Routine 05/18/20 09:33 Consult Orthopedic Surgery Routine Ordered Studies 05/16/20 16:46 US venous doppler LE RT Stat 05/16/20 22:48 CT tib/fib RT w con Urgent 05/17/20 06:48 CT angio chest PE protocol Urgent Hospital Course (1) Right leg swelling: Patient is 74-year-old female with past medical history hypertension, type 2 diabetes, hypothyroidism, craniotomy for CSF leak, papillary thyroid cancer s/p resection presents for evaluation of right lower extremity swelling and pain, is notably hypoxic and has an elevated D-dimer. Right lower extremity swelling/pain/ gait abnormality - extensive w/u as below - CK: 120 - Lower extremity Doppler: No evidence of deep venous thrombosis - Held patient's amlodipine as can contribute to lower extremity swelling - but since no clear improvement, will result - Received lasix x 2. - CT leg showing severe knee arthritis - consulted ortho if that may be contributing to pain and role of steroid injection Doesn't think arthritis contributing. Recommend oral steroid for possible radicular etiology. Outpatient therapy for lymphedema. - continue medrol dose sherley. - JAMES maria. - PT/OT consults appreciated ---->almost certainly is area of calf muscle spasms - probably brought on by baseline contractures, worsening of baseline contractures given inability to have ongoing home PT during early phase of COVID19 pandemic, exacerbated/brought on by dehydration from working in the heat -voltaren gel QID -valium as muscle relaxant HS prn for no more than a week (outlined risks/benefits) -OMT done last 3 days here, asked case management to set back up her home PT as stretching/etc would likely be very helpful -really wants to go home and has now multiple people to help look after her - in that respect safe for home somatic dysfunction R leg -OMT as above again done today, passive stretching as possible Hypoxia - CXR: no acute findings - Patient hypoxic as low as 84% O2 sat on RA requiring nasal cannula - CTA of Chest w/ contrast - was negative -improved w time/incentive spirometry - possibly was all atelectasis Hypertension - home on pre-hospital home meds, BP monitoring at home and outpt f/u DM 2 - A1c: 9.4 (down from 13.2 in August 2019) - home on home meds, outpt f/u and management Hypothyroidism - TSH 25.3, free T4 WNL 1.09, total T3 0.53 low - Continue 100 mcg levothyroxine for now. unclear when her last dose was changed. outpt f/u DVT prophylaxis: Lovenox ordered, but she declines and notes she is moving around a lot within the room dispo - home today Total Time Total Time Spent Total Time Spent (In Minutes): >30 separate from time doing OMT Discharge Plan Discharge Items Patient Disposition: Home - Home Health Services Reason For Visit: R LE SWELLING / PAIN, HYPOXIA Discharge Diagnosis: right leg pain due to calf cramp/spasm Activity: Resume your previous activity Non-emergency contact: Primary Care Provider Call non-emergency contact if: you have any medication questions and your symptoms worsen Diet: Regular Addtl Attending Provider Instructions: calf cramping -after extensive review and ruling out problems like blood clots, infections, abscesses, hematomas, etc, it became clear that your pain was from cramping in your calf muscle -the cramping probably came about as a "perfect storm" of events - with that side being weak you're probably always a little more prone to having that side of your leg be tight or contracted -- add to it that with COVID you weren't able to get the normal stretching and looser muscle tone that you normally would from your regular physical therapy -- and then add on top of all of that probably getting a little dehydrated from mulching (dry muscles are more prone to cramping) -- it was all a setup to have this get out of control -it will probably take a little while to get things reigned in- but we're making good progress --->continue to use the diclofenac gel (voltaren gel) four times a day every day until this is all better (even though it's an anti-inflammatory, it has such little whole-body absorption that it is almost unheard of to cause typical NSAID side effects) --->use the valium (diazepam) at bedtime as a muscle relaxant for the next week (or less if you get better to where you don't need it anymore) -- as we discussed, meds like valium (diazepam) can create physical dependancy - which is why we don't want to use it for very long - but it would be really unlikley (if not impossible) to develop dependancy over a week. obviously be careful in that it can make you a little more groggy or goofy than you would normally feel constipation -when you're not feeling a large, bloated stomach and a lot of discomfort, the "number of days on the calendar" since you last had a bowel movement is less important; however, we don't want things to get to where you're feeling rough. -first try the things you normally do to help your bowels move. this, combined with being out of the hospital and in your home environment, will likely be enough to get things moving again -if that doesn't help - using miralax (polyethylene glycol) as a stool softener can be helpful. a dose is a capful (or 17 grams) - which is fairly low-end of dosing. you can start with one, but if that doesn't really get things moving, it would be OK to escalate to somewhere around 3-5 capfuls for a day in order to get your bowels working again. (obviously if you're into 5 capfuls, there will probably be a degree of cramping and discomfort while it's working). if you try as much as 5 capfuls, and you still haven't had a bowel movement - then it would be time to call the office for further instructions or evaluation hypertension -your blood pressure was fairly high while you were here - but between shuffling of your medicines, the pain, and just the stress of being in the hospital, it would be no surprise that things ran higher. after it became clear that the amlodipine was not a culprit in the swelling/pain, we restarted it. for now, we'll have you on your regular medicines, and follow your blood pressure daily (random times) to see how you run. once you're back home, out of pain, etc - then in the office they can get a good feel for if your meds might need to be adjusted further. Pending Studies at Discharge: No Stand-Alone Forms: My [facility], Smoking Cessation Medications and DC Order Prescriptions: New diclofenac sodium 1 % gel 2 gm TOP QID Qty: 100 RF: 0 diazepam [Valium] 5 mg tablet 5 mg PO HS PRN (Reason: sleep) Qty: 7 RF: 0 Continued amlodipine [Norvasc] 5 mg tablet 5 mg PO QDL RF: 0 losartan [Cozaar] 100 mg tablet 100 mg PO HS RF: 0 albuterol sulfate 90 mcg/actuation Hfa Aerosol Inhaler 2 puff INHALATION Q6H PRN (Reason: Shortness Of Breath Or Wheezing) RF: 0 acetaminophen [Tylenol Extra Strength] 500 mg Tablet 500 mg PO Q6H PRN (Reason: Pain) RF: 0 levothyroxine 100 mcg tablet 100 mcg PO DAILYBB RF: 0 Levemir U-100 Insulin 100 unit/mL Solution 30 unit SUBCUT .DAILY AT 0300 RF: 0 metformin [Glucophage] 500 mg tablet 500 mg PO BIDM RF: 0 Discharge Orders: Discharge Order (Routine); Ordered 05/22/20 Ordered By: Marcos France Admission Data Admit Date/Time: 05/16/20 23:19 Attending Provider: Marcos France Admit Provider: Tarun Cuevas Primary Care Provider: Alfredito Hunter Other Providers: Anay So ; [facility] ; Gonzalo Stanford ; Gabby Pennington Other Interventions: Discharge Summary Assessment (RN) Last Done: 05/22/20 13:30 DC Date/Time DO NOT enter until pt leaves facility: 05/22/20 14:01 Coding Level of Care Code D/C Day Management >30 mins Diagnoses Right leg swelling M79.89 CPT Codes Musculoskeletal - Musculoskeletal: [address] 1-2 Body regions ([id number])
[2020-05-23] MEDS ORDERED: methylPREDNISolone 4 MG TAB PO SCH (07:00)
== END 2020-05-22 14:01 | disposition alcohol treatment (31) | DRG 556 ==
LOC: ED 16:14 → 3E 23:19 → SUATTDRO 23:19 → 3E 05-17 00:29

== ENCOUNTER 2020-10-29 11:08 | Inpatient (IN) ==
[2020-10-29 11:57] LABS: Appearance Urine Clear (Clear); Bacteria Urine Automated Negative (Negative); Bilirubin Urine Negative (Negative); Blood Urine Negative (Negative); Color Urine Yellow; Glucose Urine UA Negative (Negative); Ketones Urine Trace (Negative); Leukocyte Esterase Urine Negative (Negative); Nitrite Urine Negative (Negative); Protein Urine 2+ (Negative); RBC Urine Automated 0-4 /hpf (0-4); Specific Gravity Urine 1.014 (1.000-1.030); Urobilinogen Urine Negative (Negative); pH Urine 6.5 (4.5-7.5)
[2020-10-29 12:29] LABS: Basophils # (auto) 0.02 K/uL (0-0.2); Basophils % (auto) 0.2 %; Eosinophils # (auto) 0.21 K/uL (0-0.5); Eosinophils % (auto) 2.4 %; Hematocrit (blood only) 43.8 % (37-47); Hemoglobin 13.9 g/dL (12.0-16.0); Immature Granulocytes # (auto) 0.03 K/uL (0.00-0.02); Immature Granulocytes % (auto) 0.3 %; Lymphocytes # (auto) 1.17 K/uL (1.2-3.4); Lymphocytes % (auto) 13.2 %; Mean Corpuscular Hemoglobin 28.1 pg (25-34); Mean Corpuscular Hgb Conc 31.7 g/dL (32-36); Mean Corpuscular Volume 88.7 fL (80-100); Mean Platelet Volume 10.5 fL (7.4-10.4); Monocytes # (auto) 0.54 K/uL (0.11-0.59); Monocytes % (auto) 6.1 %; Neutrophils # (auto) 6.91 K/uL (1.4-6.5); Neutrophils % (auto) 77.8 %; Platelet Count 329 K/uL (130-400); RDW Coefficient of Variation 14.6 % (11.5-14.5); RDW Standard Deviation 47.2 fL (36.4-46.3); Red Blood Count 4.94 M/uL (4.2-5.4); White Blood Count 8.88 K/uL (4.8-10.8)
[2020-10-29 12:36] LABS: Alanine Aminotransferase 21 U/L (12-78); Albumin Level 3.7 gm/dl (3.4-5.0); Aspartate Aminotransferase 15 U/L (15-37); BUN Creatinine Ratio 21.9 (10-20); Blood Urea Nitrogen 14 mg/dl (7-18); Calcium 9.4 mg/dl (8.5-10.1); Carbon Dioxide 32 mmol/L (21-32); Chloride 101 mmol/L (98-107); Est GFR (African American) 103.3; Est GFR (Non-African American) 89.2; Glucose 184 mg/dl (70-99); Magnesium 2.1 mg/dl (1.8-2.4); Potassium 3.6 mmol/L (3.5-5.1); Sodium 138 mmol/L (136-145)
[2020-10-29 12:40] LABS: Albumin Globulin Ratio 0.8 (0.9-2); Alkaline Phosphatase 109 U/L (45-117); Bilirubin,Total 0.8 mg/dl (0.2-1); Globulin 4.9 gm/dl (2.5-4.0); Total Protein 8.6 gm/dl (6.4-8.2); Troponin I < 0.015 ng/ml (0-0.045)
[2020-10-29 12:43] LABS: Partial Thromboplastin Ratio 1.1; Partial Thromboplastin Time 30.6 Seconds (21.0-31.0); Prothrombin Time 10.5 Seconds (9.0-12.0)
--- NOTE | 2020-10-29 12:50 | XRay Report ---
XR chest 1V portable CLINICAL HISTORY: Sepsis. COMPARISON STUDY: Chest radiograph October 05, 2020. FINDINGS: Lung volumes are normal. There is no pneumothorax. A trace right pleural effusion is presen t. Mild cardiomegaly is noted. There is mild interstitial thickening. IMPRESSION: 1. Mild interstitial thickening. This favors mild pulmonary edema. An infectious process could appear similar. 2. Trace right pleural effusion. ACT 112: Negative or not required by law. Electronically signed by: Vicente Shrestha M.D. 10/29/2020 12:48 PM
[2020-10-29 13:35] LABS: Influenza A virus by PCR Negative (Neg); Influenza B virus by PCR Negative (Neg); RSV by PCR Negative (Neg); SARS CoV2 RNA(COVID-19) InHosp NEGATIVE (Negative)
[2020-10-29] MEDS ORDERED: FUROSEMIDE 40 MG/4 ML VIAL IV STA (14:17)
--- NOTE | 2020-10-29 14:20 | Emergency Department Note ---
History of Present Illness General Chief complaint: Shortness of Breath/Dyspnea Time Seen by Provider: 10/29/20 11:38 Source: patient Mode of arrival: EMS Limitations: no limitations History of Present Illness Provider complaint: Shortness of breath This is a 74-year-old female who presents to the ED with a chief complaint of shortness of breath. The patient is wheelchair-bound at home. She reportedly had oxygen saturations of 79% on room air. This was documented by EMS. She reports a chronic cough. She states that she has some chills, body aches and also shortness of breath. She does not wear home oxygen. Her symptoms started about three or 4 days ago. She states that she has not had a fever. She did not take her medication today. Home Medications Medication Instructions Recorded Confirmed Type albuterol sulfate 2 puff INHALATION Q6H PRN 08/21/19 10/29/20 History losartan [Cozaar] 100 mg PO HS 08/21/19 10/29/20 History Levemir U-100 Insulin 30 unit SUBCUT DAILY 05/16/20 10/29/20 History acetaminophen [Tylenol Extra 500 mg PO Q6H PRN 05/16/20 10/29/20 History Strength] metformin [Glucophage] 500 mg PO TIDM 05/16/20 10/29/20 History diazepam [Valium] 5 mg PO HS PRN #7 tab 05/22/20 10/29/20 Rx amlodipine 7.5 mg PO DAILY 10/29/20 10/29/20 History levothyroxine 112 mcg PO DAILY 10/29/20 10/29/20 History Allergies Allergy/AdvReac Type Severity Reaction Status Date / Time aspirin Allergy Severe HIVES; Verified 10/29/20 11:56 DIFFICULTY BREATHING Penicillins Allergy Severe HIVES AND Verified 10/29/20 11:56 DIFFICULTY BREATHING Benzodiazepines Allergy Mild Unknown Verified 10/29/20 11:56 doxycycline Allergy Mild Unknown Verified 10/29/20 11:56 Sulfa (Sulfonamide Allergy Mild Unknown Verified 10/29/20 11:56 Antibiotics) aspartame Allergy Unknown Unknown Verified 10/29/20 11:56 diltiazem Allergy Unknown UNKNOWN Verified 10/29/20 11:56 REACTION epinephrine Allergy Unknown UNKNOWN Verified 10/29/20 11:56 REACTION moxifloxacin Allergy Unknown UNKNOWN Verified 10/29/20 11:56 REACTION nifedipine Allergy Unknown UNKNOWN Verified 10/29/20 11:56 REACTION simvastatin Allergy Unknown UNKNOWN Verified 10/29/20 11:56 REACTION PER PT vancomycin Allergy Unknown UNKNOWN Verified 10/29/20 11:56 REACTION colchicine AdvReac Intermediate Difficulty Verified 10/29/20 11:56 Breathing Past Med/Surg History Medical History (Updated 10/29/20 @ 15:13 by Freda Slaughter PA-C) Asthma Cardiac arrest Dyslipidemia Gait abnormality History of ectopic HTN (hypertension) Hx of papillary thyroid carcinoma Hx of pleurisy Hypothyroidism (acquired) Mild intermittent asthma Type 2 diabetes mellitus Vitamin D deficiency Surgical History History of D&C Hx of brain surgery 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) Hx of section Hx of thyroidectomy Family History Other TIA (transient ischemic attack) Social History Smoking Status: Never smoker Hx Alcohol Use: No Hx Substance Use: No Preferred Language: Zambian Communication Ability: Effective Creative Director Required: No Beliefs That Will Affect Care: None marital status: / Current Living Situation: Alone current occupational status: retired Feels Safe at Home: Yes Assistive Devices: Wheelchair Review of Systems A total of 10 systems reviewed and were otherwise negative Physical Exam Vital Signs Vital Signs - 24 hr 10/29/20 11:14 10/29/20 11:19 10/29/20 11:20 Temperature 36.9 C Temperature Source Oral Pulse Rate 108 H 107 H 108 H Pulse Rate from SpO2 Sensor 107 H 109 H 106 H Respiratory Rate 26 H 29 H 26 H Respiratory Effort / Characteristics Non-Labored Spontaneous Respiratory Depth Normal Respiratory Pattern Regular Blood Pressure 189/117 H 189/117 H Blood Pressure Mean 129 141 Blood Pressure Position Sitting Pulse Oximetry 94 95 95 Oxygen Delivery Method Nasal Cannula Nasal Cannula Nasal Cannula Oxygen Flow Rate 2 2 2 Sepsis Recent Fever Within 48 Hours No Sepsis New/Unexplained Change in Mental Status N/A Sepsis Action Taken by Nursing No Action Required 10/29/20 11:30 10/29/20 11:40 10/29/20 11:46 Temperature Temperature Source Pulse Rate 105 H 102 H Pulse Rate from SpO2 Sensor 104 H 102 H Respiratory Rate 17 19 Respiratory Effort / Characteristics Respiratory Depth Respiratory Pattern Blood Pressure Blood Pressure Mean Blood Pressure Position Pulse Oximetry 94 95 85 L Oxygen Delivery Method Nasal Cannula Nasal Cannula Room Air Oxygen Flow Rate 2 2 Sepsis Recent Fever Within 48 Hours Sepsis New/Unexplained Change in Mental Status Sepsis Action Taken by Nursing 10/29/20 11:50 10/29/20 12:00 10/29/20 12:10 Temperature Temperature Source Pulse Rate 100 H 108 H 117 H Pulse Rate from SpO2 Sensor 101 H 109 H 117 H Respiratory Rate 23 22 21 Respiratory Effort / Characteristics Respiratory Depth Respiratory Pattern Blood Pressure Blood Pressure Mean Blood Pressure Position Pulse Oximetry 95 92 91 Oxygen Delivery Method Nasal Cannula Nasal Cannula Nasal Cannula Oxygen Flow Rate 2 2 2 Sepsis Recent Fever Within 48 Hours Sepsis New/Unexplained Change in Mental Status Sepsis Action Taken by Nursing 10/29/20 12:20 10/29/20 12:30 10/29/20 12:40 Temperature Temperature Source Pulse Rate 108 H 103 H 101 H Pulse Rate from SpO2 Sensor 108 H 104 H 101 H Respiratory Rate 21 20 23 Respiratory Effort / Characteristics Respiratory Depth Respiratory Pattern Blood Pressure Blood Pressure Mean Blood Pressure Position Pulse Oximetry 95 93 95 Oxygen Delivery Method Nasal Cannula Nasal Cannula Nasal Cannula Oxygen Flow Rate 2 2 2 Sepsis Recent Fever Within 48 Hours Sepsis New/Unexplained Change in Mental Status Sepsis Action Taken by Nursing 10/29/20 12:50 10/29/20 13:00 10/29/20 13:10 Temperature Temperature Source Pulse Rate 106 H 108 H 103 H Pulse Rate from SpO2 Sensor 106 H 108 H 103 H Respiratory Rate 23 22 24 Respiratory Effort / Characteristics Respiratory Depth Respiratory Pattern Blood Pressure Blood Pressure Mean Blood Pressure Position Pulse Oximetry 95 96 96 Oxygen Delivery Method Nasal Cannula Nasal Cannula Nasal Cannula Oxygen Flow Rate 2 2 2 Sepsis Recent Fever Within 48 Hours Sepsis New/Unexplained Change in Mental Status Sepsis Action Taken by Nursing 10/29/20 13:20 10/29/20 13:24 10/29/20 13:30 Temperature Temperature Source Pulse Rate 98 H 100 H 105 H Pulse Rate from SpO2 Sensor 99 H 100 H 100 H Respiratory Rate 21 22 22 Respiratory Effort / Characteristics Respiratory Depth Respiratory Pattern Blood Pressure 159/83 H Blood Pressure Mean 105 Blood Pressure Position Pulse Oximetry 95 93 92 Oxygen Delivery Method Nasal Cannula Nasal Cannula Oxygen Flow Rate 2 2 Sepsis Recent Fever Within 48 Hours Sepsis New/Unexplained Change in Mental Status Sepsis Action Taken by Nursing 10/29/20 13:40 10/29/20 13:50 10/29/20 14:00 Temperature Temperature Source Pulse Rate 99 H 98 H 97 H Pulse Rate from SpO2 Sensor 99 H 99 H 97 H Respiratory Rate 25 H 20 28 H Respiratory Effort / Characteristics Respiratory Depth Respiratory Pattern Blood Pressure Blood Pressure Mean Blood Pressure Position Pulse Oximetry 92 92 92 Oxygen Delivery Method Oxygen Flow Rate Sepsis Recent Fever Within 48 Hours Sepsis New/Unexplained Change in Mental Status Sepsis Action Taken by Nursing CONSTITUTIONAL/VITAL SIGNS: Reviewed / noted above. GENERAL: Non-toxic in appearance. INTEGUMENTARY: Warm, dry, and [place]. HEAD: Normocephalic. EYES: without scleral icterus or trauma. ENT/OROPHARYNX: clear and moist. LYMPHADENOPATHY/NECK: Is supple without lymphadenopathy or meningismus. RESPIRATORY: Lungs reveal some rhonchi in the bases. CARDIOVASCULAR: Regular rate and rhythm. GI/ABDOMEN: Soft and nontender. No organomegaly or pulsatile mass. No rebound or guarding. Normal bowel sounds. EXTREMITIES: Warm and well perfused. BACK: No CVA tenderness. NEUROLOGICAL: Intact without focal deficits. PSYCHIATRIC: normal affect. MUSCULOSKELETAL: Normally developed with good muscle tone. TRIAGE NURSING DOCUMENTATION REVIEWED. Course Administered Medications Discontinued Medications Ioversol (Optiray 320 125ml) 119 ml IV ONCE ONE Stop: 10/29/20 14:45 Last Admin: 10/29/20 14:45 Dose: 119 ml Documented by: [id number] Medical Decision Making Differential Diagnosis The differential was considered includes acute myocardial infarction, acute coronary syndrome, myocarditis, pericarditis, pericardial effusions /tamponad, esophageal perforation, pulmonary embolism, pneumonia, pneumothorax, cardiomyopathy, congestive heart, anemia , COPD/asthma exacerbation. Medical Records Attestation: I reviewed the patient's medical records. Home Medications Current Medication List: was personally reviewed by me Laboratory Data Attestation: I reviewed the patient's lab results. Result diagrams: 10/29/20 11:20 10/29/20 11:20 Lab Results 10/29/20 10/29/20 10/29/20 Range/Units 11:20 11:20 11:20 WBC 8.88 (4.8-10.8) K/uL RBC 4.94 (4.2-5.4) M/uL Hgb 13.9 (12.0-16.0) g/dL Hct 43.8 (37-47) % MCV 88.7 (80-100) fL MCH 28.1 (25-34) pg MCHC 31.7 L (32-36) g/dL RDW Std Deviation 47.2 H (36.4-46.3) fL RDW Coeff of Smith 14.6 H (11.5-14.5) % Plt Count 329 (130-400) K/uL MPV 10.5 H (7.4-10.4) fL Immature Gran % (Auto) 0.3 % Neut % (Auto) 77.8 % Lymph % (Auto) 13.2 % [place] % (Auto) 6.1 % Eos % (Auto) 2.4 % Baso % (Auto) 0.2 % Neut # (Auto) 6.91 H (1.4-6.5) K/uL Lymph # (Auto) 1.17 L (1.2-3.4) K/uL Sutton # (Auto) 0.54 (0.11-0.59) K/uL Eos # (Auto) 0.21 (0-0.5) K/uL Baso # (Auto) 0.02 (0-0.2) K/uL Immature Gran # (Auto) 0.03 H (0.00-0.02) K/uL PT 10.5 (9.0-12.0) Seconds INR 1.0 (0.9-1.1) APTT 30.6 (21.0-31.0) Seconds PTT Ratio 1.1 Sodium 138 (136-145) mmol/L Potassium 3.6 (3.5-5.1) mmol/L Chloride 101 (98-107) mmol/L Carbon Dioxide 32 (21-32) mmol/L Anion Gap 6.0 (3-11) BUN 14 (7-18) mg/dl Creatinine 0.64 (0.6-1.2) mg/dl Est Cr Clr Drug Dosing 100.0 ml/min Est GFR ( Amer) 103.3 Est GFR (Non-Af Amer) 89.2 BUN/Creatinine Ratio 21.9 H (10-20) Glucose 184 H (70-99) mg/dl Lactate (0.4-2.0) mmol/L Calcium 9.4 (8.5-10.1) mg/dl Magnesium 2.1 (1.8-2.4) mg/dl Total Bilirubin 0.8 (0.2-1) mg/dl AST 15 (15-37) U/L ALT 21 (12-78) U/L Alkaline Phosphatase 109 (45-117) U/L Troponin I < 0.015 (0-0.045) ng/ml Total Protein 8.6 H (6.4-8.2) gm/dl Albumin 3.7 (3.4-5.0) gm/dl Globulin 4.9 H (2.5-4.0) gm/dl Albumin/Globulin Ratio 0.8 L (0.9-2) Procalcitonin (0-0.5) ng/ml Urine Color Urine Appearance (Clear) Urine pH (4.5-7.5) Ur Specific [place] (1.000-1.030) Urine Protein (Negative) Urine Glucose (UA) (Negative) Urine Ketones (Negative) Urine Blood (Negative) Urine Nitrite (Negative) Urine Bilirubin (Negative) Urine Urobilinogen (Negative) Ur Leukocyte Esterase (Negative) Urine WBC (Auto) (0-5) /hpf Urine RBC (Auto) (0-4) /hpf U Hyaline Cast (Auto) (0-5) /lpf U Epithel Cells (Auto) (0-5) /lpf Urine Bacteria (Auto) (Negative) COVID-19 Eval Order SARS-CoV-2 (PCR) (Negative) Influenza Type A (PCR) (Neg) Influenza Type B (PCR) (Neg) RSV (RT-PCR) (Neg) 10/29/20 10/29/20 10/29/20 Range/Units 11:20 11:28 14:19 WBC (4.8-10.8) K/uL RBC (4.2-5.4) M/uL Hgb (12.0-16.0) g/dL Hct (37-47) % MCV (80-100) fL MCH (25-34) pg MCHC (32-36) g/dL RDW Std Deviation (36.4-46.3) fL RDW Coeff of Smith (11.5-14.5) % Plt Count (130-400) K/uL MPV (7.4-10.4) fL Immature Gran % (Auto) % Neut % (Auto) % Lymph % (Auto) % [place] % (Auto) % Eos % (Auto) % Baso % (Auto) % Neut # (Auto) (1.4-6.5) K/uL Lymph # (Auto) (1.2-3.4) K/uL [place] # (Auto) (0.11-0.59) K/uL Eos # (Auto) (0-0.5) K/uL Baso # (Auto) (0-0.2) K/uL Immature Gran # (Auto) (0.00-0.02) K/uL PT (9.0-12.0) Seconds INR (0.9-1.1) APTT (21.0-31.0) Seconds PTT Ratio Sodium (136-145) mmol/L Potassium (3.5-5.1) mmol/L Chloride (98-107) mmol/L Carbon Dioxide (21-32) mmol/L Anion Gap (3-11) BUN (7-18) mg/dl Creatinine (0.6-1.2) mg/dl Est Cr Clr Drug Dosing ml/min Est GFR ( Amer) Est GFR (Non-Af Amer) BUN/Creatinine Ratio (10-20) Glucose (70-99) mg/dl Lactate 0.7 (0.4-2.0) mmol/L Calcium (8.5-10.1) mg/dl Magnesium (1.8-2.4) mg/dl Total Bilirubin (0.2-1) mg/dl AST (15-37) U/L ALT (12-78) U/L Alkaline Phosphatase (45-117) U/L Troponin I (0-0.045) ng/ml Total Protein (6.4-8.2) gm/dl Albumin (3.4-5.0) gm/dl Globulin (2.5-4.0) gm/dl Albumin/Globulin Ratio (0.9-2) Procalcitonin < 0.05 (0-0.5) ng/ml Urine Color Yellow Urine Appearance Clear (Clear) Urine pH 6.5 (4.5-7.5) Ur Specific [place] 1.014 (1.000-1.030) Urine Protein 2+ H (Negative) Urine Glucose (UA) Negative (Negative) Urine Ketones Trace H (Negative) Urine Blood Negative (Negative) Urine Nitrite Negative (Negative) Urine Bilirubin Negative (Negative) Urine Urobilinogen Negative (Negative) Ur Leukocyte Esterase Negative (Negative) Urine WBC (Auto) 1-5 (0-5) /hpf Urine RBC (Auto) 0-4 (0-4) /hpf U Hyaline Cast (Auto) 1-5 (0-5) /lpf U Epithel Cells (Auto) 5-10 H (0-5) /lpf Urine Bacteria (Auto) Negative (Negative) COVID-19 Eval Order SARS-CoV-2 (PCR) (Negative) Influenza Type A (PCR) (Neg) Influenza Type B (PCR) (Neg) RSV (RT-PCR) (Neg) 10/29/20 10/29/20 Range/Units Unknown Unknown WBC (4.8-10.8) K/uL RBC (4.2-5.4) M/uL Hgb (12.0-16.0) g/dL Hct (37-47) % MCV (80-100) fL MCH (25-34) pg MCHC (32-36) g/dL RDW Std Deviation (36.4-46.3) fL RDW Coeff of Smith (11.5-14.5) % Plt Count (130-400) K/uL MPV (7.4-10.4) fL Immature Gran % (Auto) % Neut % (Auto) % Lymph % (Auto) % [place] % (Auto) % Eos % (Auto) % Baso % (Auto) % Neut # (Auto) (1.4-6.5) K/uL Lymph # (Auto) (1.2-3.4) K/uL [place] # (Auto) (0.11-0.59) K/uL Eos # (Auto) (0-0.5) K/uL Baso # (Auto) (0-0.2) K/uL Immature Gran # (Auto) (0.00-0.02) K/uL PT (9.0-12.0) Seconds INR (0.9-1.1) APTT (21.0-31.0) Seconds PTT Ratio Sodium (136-145) mmol/L Potassium (3.5-5.1) mmol/L Chloride (98-107) mmol/L Carbon Dioxide (21-32) mmol/L Anion Gap (3-11) BUN (7-18) mg/dl Creatinine (0.6-1.2) mg/dl Est Cr Clr Drug Dosing ml/min Est GFR ( Amer) Est GFR (Non-Af Amer) BUN/Creatinine Ratio (10-20) Glucose (70-99) mg/dl Lactate (0.4-2.0) mmol/L Calcium (8.5-10.1) mg/dl Magnesium (1.8-2.4) mg/dl Total Bilirubin (0.2-1) mg/dl AST (15-37) U/L ALT (12-78) U/L Alkaline Phosphatase (45-117) U/L Troponin I (0-0.045) ng/ml Total Protein (6.4-8.2) gm/dl Albumin (3.4-5.0) gm/dl Globulin (2.5-4.0) gm/dl Albumin/Globulin Ratio (0.9-2) Procalcitonin (0-0.5) ng/ml Urine Color Urine Appearance (Clear) Urine pH (4.5-7.5) Ur Specific [place] (1.000-1.030) Urine Protein (Negative) Urine Glucose (UA) (Negative) Urine Ketones (Negative) Urine Blood (Negative) Urine Nitrite (Negative) Urine Bilirubin (Negative) Urine Urobilinogen (Negative) Ur Leukocyte Esterase (Negative) Urine WBC (Auto) (0-5) /hpf Urine RBC (Auto) (0-4) /hpf U Hyaline Cast (Auto) (0-5) /lpf U Epithel Cells (Auto) (0-5) /lpf Urine Bacteria (Auto) (Negative) COVID-19 Eval Order CovFluRsv at [facility] SARS-CoV-2 (PCR) NEGATIVE (Negative) Influenza Type A (PCR) Negative (Neg) Influenza Type B (PCR) Negative (Neg) RSV (RT-PCR) Negative (Neg) Imaging Data Radiologist's Impression: XR chest 1V portable CLINICAL HISTORY: Sepsis. COMPARISON STUDY: Chest radiograph October 05, 2020. FINDINGS: Lung volumes are normal. There is no pneumothorax. A trace right pleural effusion is present. Mild cardiomegaly is noted. There is mild interstitial thickening. IMPRESSION: 1. Mild interstitial thickening. This favors mild pulmonary edema. An infectious process could appear similar. 2. Trace right pleural effusion. Chest CT IMPRESSION: 1. Motion degraded study. 2. No evidence of acute pulmonary embolism 3. Mild interstitial edema with subtle groundglass alveolar edema. 4. Small right pleural effusion and trace left pleural effusion ECG Data Attestation: I personally reviewed and interpreted this ECG as follows: Indication: + SOB/dyspnea Rate (beats per minute): 105 Rhythm: + sinus rhythm ECG ST segments: no ST elevation ECG Findings: no PVCs MDM Narrative Patient presents with shortness of breath as detailed above. Her chest x-ray suggestive of heart failure. Her troponin was negative. The patient's CBC is unremarkable. Chest x-ray was suggestive of mild pulmonary edema. CT scan of the chest also showed mild interstitial edema. The patient's CMP was unremarkable. Troponin was negative. Urine did not show infection. Procalcitonin was normal. Covid and flu were negative. The exact cause of the patient's symptoms are unclear. She was given IV Lasix. She was also given her blood pressure medication as it was due based on her normal medication schedules at home. Because of the patient's persistent hypoxia, she will be seen by the hospitalist for further evaluation and care. Impression & Plan Hypoxia, CHF (congestive heart failure) Discharge Plan Visit Data Chief Complaint: Shortness of Breath/Dyspnea ED Provider: Gonzalo Becerra Discharge Problem: Hypoxia, CHF (congestive heart failure) Patient Disposition: Being Evaluated by Hospitalist Forms Stand Alone Forms: [facility], [facility] Prescriptions Prescriptions: No Action losartan [Cozaar] 100 mg tablet 100 mg PO HS RF: 0 albuterol sulfate 90 mcg/actuation Hfa Aerosol Inhaler 2 puff INHALATION Q6H PRN (Reason: Shortness Of Breath Or Wheezing) RF: 0 acetaminophen [Tylenol Extra Strength] 500 mg Tablet 500 mg PO Q6H PRN (Reason: Pain) RF: 0 Levemir U-100 Insulin 100 unit/mL Solution 30 unit SUBCUT DAILY RF: 0 metformin [Glucophage] 500 mg tablet 500 mg PO TIDM RF: 0 diazepam [Valium] 5 mg tablet 5 mg PO HS PRN (Reason: sleep) Qty: 7 RF: 0 amlodipine 2.5 mg tablet 7.5 mg PO DAILY RF: 0 levothyroxine 112 mcg tablet 112 mcg PO DAILY RF: 0 Referrals Referrals: Danny Bhatia MD [Primary Care Provider] - Discharge Problem: CHF (congestive heart failure) Qualifiers: Heart failure type: unspecified Heart failure chronicity: acute Qualified Code(s): I50.9 - Heart failure, unspecified
[2020-10-29] MEDS ORDERED: OPTIRAY 320 125ml IV ONE (14:44)
[2020-10-29] MEDS ORDERED: amLODIPine BESYLATE 5 MG TAB PO ONE (14:57)
--- NOTE | 2020-10-29 14:57 | CT Scan Report ---
CT ANGIOGRAM OF THE CHEST CLINICAL HISTORY: Cough and shortness of breath. Possible pulmonary embolism COMPARISON STUDY: 05/17/2020, chest x-ray dated 10/29/2020 TECHNIQUE: Following the IV administration of 119 mL of Optiray-320, CT angiogram of the thorax was p erformed from the thoracic inlet to the lung bases utilizing the pulmonary embolus protocol. Images a re reviewed in the axial, sagittal, and coronal planes. IV contrast was administered without complica tion. MIP imaging was performed. A dose lowering technique was utilized adhering to the principles o f ALARA. CT DOSE: 403.59 mGy.cm FINDINGS: Mediastinal and hilar lymph nodes are the upper limits of normal in size. There is no pathologic axil carol adenopathy. There was no evidence of thoracic aortic dilatation. There are no pulmonary artery filling defects to indicate acute pulmonary embolism. Evaluation of low er lobe of the artery branches is limited due to moderate respiratory motion artifact. There is a small right pleural effusion and trace left pleural effusion There is interlobular septal edema. There is groundglass attenuation the lungs with a slight mosaic d istribution, likely representing mild edema with underlying air trapping. IMPRESSION: 1. Motion degraded study. 2. No evidence of acute pulmonary embolism 3. Mild interstitial edema with subtle groundglass alveolar edema. 4. Small right pleural effusion and trace left pleural effusion ACT 112: Negative or not required by law. Electronically signed by: Sotero Solo M.D. 10/29/2020 2:55 PM
--- NOTE | 2020-10-29 15:10 | History & Physical Report ---
Date of Service October 29, 2020 Assessment & Plan (1) Hypoxia: -Admit to [facility] with telemetry -Initially was hypoxic on room air with O2 sats =79%, does not wear O2 at baseline, currently requiring 2 L to maintain sats in mid 90s -No ABG was obtained on admission -Thought that this is secondary to cardiac versus pulmonary issue, will treat this like a CHF exacerbation with pleural effusions as seen on CT of the chest -Hx of pleurisy but no chest pain here (2) CHF (congestive heart failure): - last echo was done in 08/2019 which showed normal left ventricular systolic function, EF of 55-60%, aortic valve sclerosis mild, no aortic valvular stenosis, grade 1 diastolic dysfunction. -Also with significantly elevated TSH in April/2020-question if has myxedema picture contributing - Recheck Echo - Lasix 40 mg IV administered in the ER - out 700mL while at bedside with pure wick urinary device in place, - Follow strict I/Os and determine further diuresis - Initial troponin is negative, trend Q8 x 2 more sets - Consider cardiology consult - Allow HH/DM diet, fluid restriction of 1500 mL -Given chronic lower extremity edema, would consider sending home on daily Lasix with potassium supplementation and possibly reducing dose of amlodipine (3) HTN (hypertension): - Continue losartan 100 mg HS, amlodipine 7.5 mg daily for now but consider lowering dose and adding daily diuretic instead given lower extremity edema - Slightly elevated BP upon admission, 160/90 (4) Hypothyroidism (acquired): - Cont levothyroxine 112 mcg daily for now, s/p papillary thyroid carcinoma status post resection. 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 Primarily wheelchair-bound is able to lift herself and self propel wheelchair. Underwent surgical procedure by [facility] at [place]. PT/OT consults for such. (7) Hyperglycemia due to type 2 diabetes mellitus: - Hold metformin, cover with ISS with accuchecks achs - A1C 9.4 from 05/17/20, recheck with am labs - Continue Levemir 30 U daily DVT prophylaxis - teds, scds, Lovenox subcu CODE: Full code Dispo: From home, likely to remain in the hospital x 1-2 days History of Present Illness Primary Care Provider: Danny Bhatia MD This is a 74 yo F with PMHx of HTN, DM type II, hypothyroidism, remote papillary thyroid cancer s/p resection, craniotomy for CSF leak in ~2009 where she was hospitalized in [facility] and in a coma for 4-5 days. Afterwards was not able to walk again so is primarily wheelchair bound, however lifts herself to use bathroom/shower, and self propels herself. She is very independent individual who lives at home by herself, 5 years ago and her 3 children live in [facility] and [place]. She presents with acute shortness of breath which started last evening when going to bed. Patient reports that she was unable to sleep lying flat. A similar presentation occurred was hospitalized about 1 year ago where she was diagnosed with pleurisy and had improvement in her sx with administration of steroids. She will also consider that she may have had pneumonia at that point in time and was treated with azithromycin. At this point time the patient denies any sore throat, runny nose, headache, congestion, known Covid positive persons. She has hired an [employer] teenage girl to help her with aml analyst and assist her once a week, however has not had her in her home for the last 3 weeks. She noted that she had increased difficulty with getting her groceries into her house this past week. Patient's legs have had increased swelling bilaterally over the past few days, she feels her abdomen is also swollen and 10 lb weight gain, notices that her clothes are tight. She denies any fevers or sweats, admits to having intermittent chills in the past 24 hours. Patient also complains of a significantly depressed appetite in the past few days, she has be en taking her insulin as scheduled, Levemir 30 units in the morning but has not had any hypoglycemic episodes. Patient takes her glucose as well as blood pressure and pulse every morning for her PCP as she has been instructed to do so at home. Patient was significantly concerned and that she had COVID-19 infection however that is negative here in the ER. Allergies Allergy/AdvReac Type Severity Reaction Status Date / Time aspirin Allergy Severe HIVES; Verified 10/29/20 11:56 DIFFICULTY BREATHING Penicillins Allergy Severe HIVES AND Verified 10/29/20 11:56 DIFFICULTY BREATHING Benzodiazepines Allergy Mild Unknown Verified 10/29/20 11:56 doxycycline Allergy Mild Unknown Verified 10/29/20 11:56 Sulfa (Sulfonamide Allergy Mild Unknown Verified 10/29/20 11:56 Antibiotics) aspartame Allergy Unknown Unknown Verified 10/29/20 11:56 diltiazem Allergy Unknown UNKNOWN Verified 10/29/20 11:56 REACTION epinephrine Allergy Unknown UNKNOWN Verified 10/29/20 11:56 REACTION moxifloxacin Allergy Unknown UNKNOWN Verified 10/29/20 11:56 REACTION nifedipine Allergy Unknown UNKNOWN Verified 10/29/20 11:56 REACTION simvastatin Allergy Unknown UNKNOWN Verified 10/29/20 11:56 REACTION PER PT vancomycin Allergy Unknown UNKNOWN Verified 10/29/20 11:56 REACTION colchicine AdvReac Intermediate Difficulty Verified 10/29/20 11:56 Breathing Home Medications Medication Instructions Recorded Confirmed Type albuterol sulfate 2 puff INHALATION Q6H PRN 08/21/19 10/29/20 History losartan [Cozaar] 100 mg PO HS 08/21/19 10/29/20 History Levemir U-100 Insulin 30 unit SUBCUT DAILY 05/16/20 10/29/20 History acetaminophen [Tylenol Extra 500 mg PO Q6H PRN 05/16/20 10/29/20 History Strength] metformin [Glucophage] 500 mg PO TIDM 05/16/20 10/29/20 History diazepam [Valium] 5 mg PO HS PRN #7 tab 05/22/20 10/29/20 Rx amlodipine 7.5 mg PO DAILY 10/29/20 10/29/20 History levothyroxine 112 mcg PO DAILY 10/29/20 10/29/20 History Past Med/Surg History Medical History (Updated 10/29/20 @ 16:27 by Freda Slaughter PA-C) Asthma Cardiac arrest Dyslipidemia Gait abnormality History of ectopic HTN (hypertension) Hx of papillary thyroid carcinoma Hx of pleurisy Hypothyroidism (acquired) Mild intermittent asthma Type 2 diabetes mellitus Vitamin D deficiency Surgical History History of D&C Hx of brain surgery 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) Hx of section Hx of thyroidectomy Family History Other TIA (transient ischemic attack) Social History Smoking Status: Never smoker Hx Alcohol Use: No Hx Substance Use: No Preferred Language: Persian Communication Ability: Effective Cordwainer Required: No Beliefs That Will Affect Care: None marital status: / Current Living Situation: Alone current occupational status: retired Feels Safe at Home: Yes Assistive Devices: Wheelchair Review of Systems Review of Systems: Constitutional: No fever, sweats, + chills Eyes: No diplopia, no worsening or blurred vision ENT: normal hearing, no trouble swallowing, no rhinorrhea, no sore throat Respiratory: + Dry cough x1 day, no sputum, as per HPI- dyspnea on exertion, currently requiring supplemental O2 Cardiovascular: No chest pain, tightness or palpitations Abdomen: + Diminished appetite, no pain, nausea, vomiting, diarrhea or constipation Musculoskeletal: + Wheelchair-bound as per HPI, no joint pain, calf pain, + increased lower leg edema Neurologic: + Generalized weakness, numbness/tingling, + chronic balance probl ems Psychiatric: No anxiety or depression Skin: No rash or itch Physical Exam Physical Exam: General: awake, alert, no apparent distress, + anxious Head: Normocephalic, atraumatic ENT: PERRL, EOMI, no pharyngeal exudate, mucous membranes moist Chest: On 2 L NC, faint crackles at bases bilaterally right >left , no expiratory or inspiratory wheeze, no rales Cardiac: Sinus tachy, HR = 95 at bedside, no murmur, no JVD, normal peripheral pulses, good capillary refill Abdominal: NABS x 4 quadrants, soft, nondistended, nontender to palpation, no rebound or guarding : pure wick urinary catheter hooked up to suction, out 700 mL while at bedside Extremities: +2 peripheral edema BLE, unable to lift legs up off the bed, right knee does not flex, no erythema, calfs nontender to palpation Psych: Normal mood, + anxious affect Neuro: AAO x 3, strength intact bilaterally and rated 5/5 in upper extremities, 2/5 BLE, speech is clear, no peripheral sensory deficits Results & Data [facility] Vital Signs (Past 12 Hours) Vital Signs Temp Pulse Resp BP Pulse Ox 10/29/20 14:00 97 H 28 H 92 10/29/20 13:50 98 H 20 92 10/29/20 13:40 99 H 25 H 92 10/29/20 13:30 105 H 22 92 10/29/20 13:24 100 H 22 159/83 H 93 10/29/20 13:20 98 H 21 95 10/29/20 13:10 103 H 24 96 10/29/20 13:00 108 H 22 96 10/29/20 12:50 106 H 23 95 10/29/20 12:40 101 H 23 95 10/29/20 12:30 103 H 20 93 10/29/20 12:20 108 H 21 95 10/29/20 12:10 117 H 21 91 10/29/20 12:00 108 H 22 92 10/29/20 11:50 100 H 23 95 10/29/20 11:46 85 L 10/29/20 11:40 102 H 19 95 10/29/20 11:30 105 H 17 94 10/29/20 11:20 36.9 C 108 H 26 H 189/117 H 95 10/29/20 11:19 107 H 29 H 95 10/29/20 11:14 108 H 26 H 189/[address] H [address] ANGIOGRAM OF THE CHEST CLINICAL HISTORY: Cough and shortness of breath. Possible pulmonary embolism COMPARISON STUDY: 05/17/2020, chest x-ray dated 10/29/2020 TECHNIQUE: Following the IV administration of 119 mL of Optiray-320, CT angiogram of the thorax was performed from the thoracic inlet to the lung bases utilizing the pulmonary embolus protocol. Images are reviewed in the axial, sagittal, and coronal planes. IV contrast was administered without complication. MIP imaging was performed. A dose lowering technique was utilized adhering to the principles of ALARA. CT DOSE: 403.59 mGy.cm FINDINGS: Mediastinal and hilar lymph nodes are the upper limits of normal in size. There is no pathologic axillary adenopathy. There was no evidence of thoracic aortic dilatation. There are no pulmonary artery filling defects to indicate acute pulmonary embolism. Evaluation of lower lobe of the artery branches is limited due to moderate respiratory motion artifact. There is a small right pleural effusion and trace left pleural effusion There is interlobular septal edema. There is groundglass attenuation the lungs with a slight mosaic distribution, likely representing mild edema with underlying air trapping. IMPRESSION: 1. Motion degraded study. 2. No evidence of acute pulmonary embolism 3. Mild interstitial edema with subtle groundglass alveolar edema. 4. Small right pleural effusion and trace left pleural effusion XR chest 1V portable CLINICAL HISTORY: Sepsis. COMPARISON STUDY: Chest radiograph October 05, 2020. FINDINGS: Lung volumes are normal. There is no pneumothorax. A trace right pleu ral effusion is present. Mild cardiomegaly is noted. There is mild interstitial thickening. IMPRESSION: 1. Mild interstitial thickening. This favors mild pulmonary edema. An infectious process could appear similar. 2. Trace right pleural effusion. ECG Additional Comments: 29-OCT-2020 11:20:52 [facility]-EDSTAT ROUTINE RETRIEVAL Poor data quality, interpretation may be adversely affected Sinus tachycardia Low voltage QRS Abnormal ECG When compared with ECG of 05-OCT-2020 17:34, No significant change was found Confirmed by Bijan Miranda ([id number]) on 10/29/2020 3:27:33 PM 25mm/s 10mm/mV 150Hz 9.0.9 12SL 241 [place]TON: 13 Confirmed By: Bijan Miranda Vent. rate 105 BPM SD interval 176 ms QRS duration 88 ms QT/QTc 348/459 ms Code Status & VTE Plan Code Status Full code-discussed with the patient at bedside Supervising Physician Co-Signing Physician Notes PA Supervision Note: I personally saw and examined the patient. I verified all dickerson points and agree with TASHIA Slaughter with the following exceptions and/or additions: Patient is a 74-year-old female who presents with worsening shortness of breath and orthopnea over the last few days. She has noted 10 pain weight gain, lower extremity edema that is chronic but steadily worsening, and some abdominal distention. She does admit to eating high sodium foods at times, but does not drink excessive amounts of fluid. She denies any chest pain. She was hypoxic in the ER requiring oxygen. She was negative for Covid-19. Chest CT showed pleural effusions and pulmonary edema but no pneumonia. No PE History and ROS reviewed as above Vitals reviewed Gen: AAOx3, NAD, obese, talkative HEENT: Anicteric sclerae, EOMI CV: RRR no mgr nl S1S2 Pulm: Bibasilar crackles, no wheezes, unlabored breathing, nasal cannula in place Abd: +BS soft NT ND no masses or hernias Ext: 2-3+ pitting edema in the bilateral lower extremities Skin: No rashes, warm/dry Neuro: 4/5 strength in lower extremities throughout, otherwise normal Laboratory values reviewed ECG reviewed Radiology reports reviewed 74-year-old female here with acute respiratory failure with hypoxia and pulmonary edema, worsening lower extremity edema Question diastolic CHF versus myxedema from elevated TSH Diuresis with IV Lasix Control blood pressure-consider decreasing amlodipine dose and adding on daily Lasix Wean off supplemental O2 as able to Check TSH PG Care Time/CCT Total # of Minutes Spent Total Time Spent with Patient: Total time spent is greater than 50% in coordination of care (as documented) at patient's floor/unit and/or counseling patient: Coding Level of Care Code 38776 Initial Inpt Care Lvl 3 Diagnoses Hypoxia R09.02 CHF (congestive heart failure) I50.9 Heart failure chronicity: acute Heart failure type: unspecified HTN (hypertension) I10 Hypertension type: essential hypertension Hypothyroidism (acquired) E03.9 Hx of papillary thyroid carcinoma Z85.850 CSF leak G96.00 Hyperglycemia due to type 2 diabetes mellitus E11.65 Diabetes mellitus senior care insulin use: without intermodal owner operator truck driver use (1) Hyperglycemia due to type 2 diabetes mellitus Diabetes mellitus intermodal owner operator truck driver insulin use: without senior care use Qualified Code(s): E11.65 - Type 2 diabetes mellitus with hyperglycemia (2) CHF (congestive heart failure) Heart failure chronicity: acute Heart failure type: unspecified Qualified Code(s): I50.9 - Heart failure, unspecified (3) HTN (hypertension) Hypertension type: essential hypertension Qualified Code(s): I10 - Essential (primary) hypertension
[2020-10-29] MEDS: LOSARTAN POTASSIUM 50 MG TAB PO SCH ×3 (15:24→23:36)
--- NOTE | 2020-10-29 15:27 | Electrocardiogram Report ---
Test Reason : Blood Pressure : / mmHG Vent. Rate : 105 BPM Atrial Rate : 105 BPM P-R Int : 176 ms QRS Dur : 088 ms QT Int : 348 ms P-R-T Axes : 095 050 031 degrees QTc Int : 459 ms Poor data quality, interpretation may be adversely affected Sinus tachycardia Low voltage QRS Abnormal ECG When compared with ECG of 05-OCT-2020 17:34, No significant change was found Confirmed by Bijan Miranda ([id number]) on 10/29/2020 3:27:33 PM Referred By: Confirmed By:Bijan Miranda
[2020-10-29] MEDS ORDERED: diazePAM 5 MG TABLET PO PRN (17:50)
[2020-10-29] MEDS ORDERED: CARBOHYDRATES FOR HYPOGLYCEMIA PO PRN (17:50)
[2020-10-29] MEDS ORDERED: ONDANSETRON INJ 2 MG/ML 2 ML VIAL IV PRN (17:50)
[2020-10-29] MEDS ORDERED: GLUCOSE 10 TABS/TUBE PO PRN (17:50)
[2020-10-29] MEDS ORDERED: DEXTROSE 50% 50 ML SYRINGE IV PRN (17:50)
[2020-10-29] MEDS ORDERED: GLUCAGON FOR INJ 1 MG VIAL SQ PRN (17:50)
[2020-10-29] MEDS ORDERED: ALBUTEROL HFA 8 GM INHALER INH PRN (17:50)
[2020-10-29] MEDS ORDERED: GLUCOSE 40% GEL 15 GM TUBE PO PRN (17:50)
[2020-10-29] MEDS ORDERED: ACETAMINOPHEN 500 MG TAB PO PRN (17:56)
[2020-10-29] MEDS: INSULIN ASPART 100 UNITS/ML 3 ML PEN SC SCH ×2 (20:17→20:44)
[2020-10-29] MEDS ORDERED: Nursing to Pharmacy Communication SCH (20:30)
[2020-10-29 20:45] LABS: Troponin I < 0.015 ng/ml (0-0.045)
[2020-10-29 20:58] LABS: T4 Free Thyroxine 1.27 ng/dl (0.8-1.6)
[2020-10-29] MEDS ORDERED: LOSARTAN POTASSIUM 50 MG TAB PO SCH (21:00)
[2020-10-30] MEDS ORDERED: FUROSEMIDE 40 MG in SYRINGE 0 ML IV ONE ×2 (02:30→15:15)
[2020-10-30] MEDS ORDERED: POTASSIUM CHLORIDE CRTAB 20 MEQ TABCR PO SCH (03:30)
[2020-10-30] MEDS ORDERED: Nursing to Pharmacy Communication SCH (03:45)
[2020-10-30 04:19] LABS: Hematocrit (blood only) 39.8 % (37-47); Hemoglobin 12.7 g/dL (12.0-16.0); Mean Corpuscular Hemoglobin 28.2 pg (25-34); Mean Corpuscular Hgb Conc 31.9 g/dL (32-36); Mean Corpuscular Volume 88.2 fL (80-100); Mean Platelet Volume 9.3 fL (7.4-10.4); Platelet Count 289 K/uL (130-400); RDW Coefficient of Variation 14.3 % (11.5-14.5); RDW Standard Deviation 46.2 fL (36.4-46.3); Red Blood Count 4.51 M/uL (4.2-5.4); White Blood Count 7.97 K/uL (4.8-10.8)
[2020-10-30 04:40] LABS: Albumin Level 3.1 gm/dl (3.4-5.0); BUN Creatinine Ratio 19.1 (10-20); Calcium 8.2 mg/dl (8.5-10.1); Creatinine Clr Calc Pharmacy 121.5 ml/min; Est GFR (African American) 110.6; Est GFR (Non-African American) 95.5
[2020-10-30 04:41] LABS: Albumin Globulin Ratio 0.8 (0.9-2); Bilirubin,Total 0.9 mg/dl (0.2-1); Globulin 4.1 gm/dl (2.5-4.0); Total Protein 7.2 gm/dl (6.4-8.2)
[2020-10-30] MEDS: POTASSIUM CHLORIDE PWD 20 MEQ PACK PO SCH ×3 (05:27→12:17)
[2020-10-30 05:59] LABS: Estimated Average Glucose 189 mg/dl; Hemoglobin A1C 8.2 % (4.5-5.6)
[2020-10-30] MEDS ORDERED: LEVOTHYROXINE SODIUM 112 MCG TABLET PO SCH (06:30)
[2020-10-30] MEDS: LEVOTHYROXINE SODIUM 125 MCG TABLET PO SCH (06:42)
--- NOTE | 2020-10-30 07:12 | Hospitalist Progress Note ---
Date of Service October 30, 2020 Assessment & Plan (1) Hypoxia: (2) CHF (congestive heart failure): (3) HTN (hypertension): (4) Hypothyroidism (acquired): (5) Hx of papillary thyroid carcinoma: (6) CSF leak: (7) Hyperglycemia due to type 2 diabetes mellitus: Admission and Anticipated Discharge Date Admission Date: October 29, 2020 Subjective feels "not very good." trouble breathing last night. this AM not much better. lasix 40 iv o/n helped some. this is her 3rd admission for same sxs. issues x a few months at home not on lasix. 2L O2. sxs worsened weekend. wednesday night was worse gained 10 lbs in last couple months decreased appetite. does not follow cardiology or pulmonology wheelchair bound no home o2. Review of Systems Review of Systems: Constitutional: Denies fever. +chills x wks Cardiovascular: Denies chest pain, palpitations Respiratory: + sob. feels like drowning. + cough nonproductive. orthopnic. Gastrointestinal: Denies abdominal pain, nausea, vomiting, constipation, diarrhea Genitourinary: Denies urinary symptoms including dysuria Neurological: Denies headache. some numbness hands/feet from swelling x 1 year. Physical Exam Physical Exam: General: Grossly A&O. NAD. Cooperative. HEENT: Atraumatic, normocephalic. Pulm: diffuse inspiratory crackles. shallow/quick breaths. accessory muscle use. mod resp distress Cardiac: RRR, -mrg. 1+? edema. appear swollen. palpationg limited by pain Abdominal: Nontender, nondistended, soft. Results & Data Results & Data ([facility]) Vital Signs (Past 12 Hours) Vital Signs Temp Pulse Pulse Resp BP BP Pulse Ox 10/30/20 03:51 36.9 C 87 17 157/79 H 90 10/30/20 03:13 87 10/30/20 02:05 36.7 C 91 H 20 162/81 H 93 10/29/20 23:35 162/80 H 10/29/20 23:07 36.6 C 90 19 158/79 H 97 10/29/20 20:50 93 H 10/29/20 19:25 36.5 C 86 18 148/74 H 94 Resident Activity Tracking Resident Involvement: Resident Care Provided Care Provided: Adult Hospital Medicine (1) Hyperglycemia due to type 2 diabetes mellitus Diabetes mellitus hospice clinical marketer insulin use: without hospice clinical marketer use Qualified Code(s): E11.65 - Type 2 diabetes mellitus with hyperglycemia (2) CHF (congestive heart failure) Heart failure chronicity: acute Heart failure type: unspecified Qualified Code(s): I50.9 - Heart failure, unspecified (3) HTN (hypertension) Hypertension type: essential hypertension Qualified Code(s): I10 - Essential (primary) hypertension
[2020-10-30] MEDS ORDERED: FUROSEMIDE 40 MG/4 ML VIAL IV SCH (09:00)
[2020-10-30] MEDS ORDERED: FUROSEMIDE 20 MG in SYRINGE 0 ML IV SCH (09:00)
--- NOTE | 2020-10-30 09:17 | XCELERA ---
[id number] \\[id number]
[2020-10-30] MEDS: INSULIN DETEMIR FLEXPEN/FLEX TOUCH 100 UNITS/ML 3ML SC SCH (09:18)
[2020-10-30] MEDS: INSULIN ASPART 100 UNITS/ML 3 ML PEN SC SCH ×4 (09:19→20:26)
[2020-10-30] MEDS: amLODIPine BESYLATE 5 MG TAB PO SCH (09:21)
[2020-10-30] MEDS: ENOXAPARIN INJ 40 MG/0.4 ML SYR SQ SCH ×2 (09:21→09:32)
[2020-10-30] MEDS: POTASSIUM CHLORIDE CRTAB 20 MEQ TABCR PO STA ×2 (09:29→09:47)
--- NOTE | 2020-10-30 11:35 | Medical Student Progress Note ---
Date of Service . October 30, 2020 Assessment & Plan (1) CHF exacerbation: Ms. Logan is a 74-year-old female with a pmhx of CHF (grade I diastolic dysfunction), asthma, hypothyroidism (remote papillary thyroid cancer s/p resection), HTN, DM type II, and CSF leak (now wheel chair bound) who presented for a 3-4 day h/o increasing shortness of breath, cough, leg swelling, O2 sat of 79% and pulmonary edema on imaging. Hypoxia most likely secondary to CHF exacerbation. # Hypoxia -Per EMS was hypoxic on room air with O2 sats =79%. Was placed on 2L of O2. Does not wear O2 at baseline -No ABGs received at baseline -Chest x-ray showed mild interstitial thickening, pulmonary edema, and trace right pleural effusion -CT showed interstitial edema with subtle groundglass alveolar edema, small right pleural effusion and trace left pleural effusion -Continue on 2L of O2 and titrate as needed. O2 86-96% -Encourage flutter device -Pending blood cultures to r/o infection # Acute CHF exacerbation -EKG showed sinus tachycardia, low voltage QRS. Admitted to [facility] with tele metry. -Echo done on 08/2019 showed normal left ventricular systolic function, EF of 55-60%, aortic valve sclerosis mild, no aortic valvular stenosis, grade 1 diastolic dysfunction. Repeat Echo today 10/30/2020 unchanged with mild tricuspid regurgitation. -Neg troponin. Trend trops q8h. -Pt. given 40 mg IV Lasix in the ED and transitioned to 20 mg IV Lasix. -Continue Lasix 20 mg IV. Will reassess fluid status tomorrow. Pt has decreased to 3kg since admission. Will consider home Lasix. Pt. does not see a auto club travel counselor. -K 3.6->3.0. Pt. received 20 meq q4H. Will reassess tomorrow am. -Continue HH/DM diet, fluid restriction of 1500 mL. She does not eat diet high in salt. -Strict I/Os -CBC/BMP qAM # HTN -Slightly elevated BP upon admission, 160/90 -Continue losartan 100 mg HS, amlodipine 7.5 mg daily for now but consider lowering dose given edema # Hypothyroidism s/p papillary thyroid carcinoma status post resection On 10/29 TSH 10.4 and FT4 1.27 -Continue levothyroxine 112 mcg daily which was a recent increase according to pt. 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 -PT/OT ordered once today 10/30 # Hyperglycemia due to type 2 diabetes mellitus - Hold metformin, cover with ISS with accuchecks achs - A1C 9.4 from 05/17/20, recheck with am labs - Continue Levemir 30 U daily DVT prophylaxis: Teds, scds, Lovenox subq FENI: HH/DM diet, fluid restriction of 1500 mL. CODE: Full code (2) CHF (congestive heart failure): Heart failure chronicity: acute Heart failure type: unspecified Qualified Code(s): I50.9 - Heart failure, unspecified (3) CSF leak: (4) Vitamin D deficiency: (5) Hx of papillary thyroid carcinoma: (6) Hypothyroidism (acquired): (7) Hypoxia: (8) HTN (hypertension): Hypertension type: essential hypertension Qualified Code(s): I10 - Essential (primary) hypertension (9) Pleurisy without effusion: (10) Hyperglycemia due to type 2 diabetes mellitus: Diabetes mellitus mcfp insulin use: without middle or intermediate school principal use Qualified Code(s): E11.65 - Type 2 diabetes mellitus with hyperglycemia Supervising Attestation Medical Student Supervision Note: I was personally present during medical student patient encounter and independently interviewed and examined the patient and verified the dickerson history and physical, reviewed labs and image studies, discussed the case with Lilli Butt and agree with the findings and care plan. Acute diastolic CHF exacerbation Hypoxia - Improving with IV diuresis. continue. - follow fluid balance. - Likely etiology of exacerbation - ? diet. no a fib noted on Tele so far. - follow. Subjective She continues to feel SOB with a non-productive cough. She reports that her SOB and leg edema have improved slightly which she attributes to starting Lasix. Review of Systems Review of Systems: All systems reviewed & are unremarkable except as noted in HPI & below Physical Exam Physical Exam: General: Well developed, obese, sitting and leaning forward, mildly short of breath but conversational Respiratory: No wheezes, or rhonchi. Diffuse crackles throughout. Shallow breaths. Cardiovascular: RRR, no murmurs, gallops or rubs. No JVD. 1+ pitting edema in legs. Abdomen: Soft, non-tender, nondistended. Neuro: Alert and oriented X3. Psych: Speech nl rate and volume, through process linear, affect appropriate Results & Data ([facility]) Vital Signs (Past 12 Hours) Vital Signs Temp Pulse Pulse Resp BP BP Pulse Ox 10/30/20 08:06 36.7 C 92 H 15 128/74 93 10/30/20 07:35 88 10/30/20 03:51 36.9 C 87 17 157/79 H 90 10/30/20 03:13 87 10/30/20 02:05 36.7 C 91 H 20 162/81 H 93 10/29/20 23:35 162/80 H 10/29/20 23:07 36.6 C 90 19 158/79 H 97
--- NOTE | 2020-10-30 14:28 | Electrocardiogram Report ---
Test Reason : Blood Pressure : / mmHG Vent. Rate : 089 BPM Atrial Rate : 089 BPM P-R Int : 172 ms QRS Dur : 088 ms QT Int : 378 ms P-R-T Axes : 037 031 055 degrees QTc Int : 459 ms Normal sinus rhythm Septal infarct (cited on or before 30-OCT-2020) Abnormal ECG When compared with ECG of 29-OCT-2020 11:20, No significant change was found Confirmed by Dash Fontanez ([id number]) on 10/30/2020 2:27:51 PM Referred By: REFERRED SELF Confirmed By:Dash Fontanez
[2020-10-31] MEDS: LOSARTAN POTASSIUM 50 MG TAB PO SCH (01:07)
[2020-10-31] MEDS: LEVOTHYROXINE SODIUM 125 MCG TABLET PO SCH (06:22)
[2020-10-31 06:56] LABS: Hematocrit (blood only) 40.4 % (37-47); Hemoglobin 12.6 g/dL (12.0-16.0); Mean Corpuscular Hemoglobin 27.7 pg (25-34); Mean Corpuscular Hgb Conc 31.2 g/dL (32-36); Mean Corpuscular Volume 88.8 fL (80-100); Mean Platelet Volume 9.5 fL (7.4-10.4); Platelet Count 289 K/uL (130-400); RDW Coefficient of Variation 14.3 % (11.5-14.5); RDW Standard Deviation 46.3 fL (36.4-46.3); Red Blood Count 4.55 M/uL (4.2-5.4); White Blood Count 7.85 K/uL (4.8-10.8)
[2020-10-31 07:23] LABS: Albumin Level 2.9 gm/dl (3.4-5.0); BUN Creatinine Ratio 25.2 (10-20); Creatinine Clr Calc Pharmacy 108.9 ml/min; Est GFR (African American) 106.7; Est GFR (Non-African American) 92.1; Potassium 3.3 mmol/L (3.5-5.1)
[2020-10-31 07:27] LABS: Albumin Globulin Ratio 0.7 (0.9-2); Bilirubin,Total 0.6 mg/dl (0.2-1); Total Protein 6.9 gm/dl (6.4-8.2)
[2020-10-31] MEDS: FUROSEMIDE 40 MG in SYRINGE 0 ML IV SCH (07:59)
[2020-10-31] MEDS: INSULIN DETEMIR FLEXPEN/FLEX TOUCH 100 UNITS/ML 3ML SC SCH (08:03)
[2020-10-31] MEDS: ENOXAPARIN INJ 40 MG/0.4 ML SYR SQ SCH (08:03)
[2020-10-31] MEDS: INSULIN ASPART 100 UNITS/ML 3 ML PEN SC SCH ×4 (08:05→20:53)
[2020-10-31] MEDS: amLODIPine BESYLATE 5 MG TAB PO SCH ×2 (08:06→12:27)
[2020-10-31] MEDS ORDERED: Nursing to Pharmacy Communication SCH ×2 (08:15→12:45)
[2020-10-31] MEDS ORDERED: POTASSIUM CHLORIDE CRTAB 20 MEQ TABCR PO ONE (11:15)
[2020-10-31] MEDS ORDERED: POTASSIUM CHLORIDE PWD 20 MEQ PACK PO ONE (12:45)
--- NOTE | 2020-10-31 13:55 | Medical Student Progress Note ---
Date of Service October 31, 2020 Assessment & Plan (1) CHF exacerbation: Ms. Logan is a 74-year-old female with a pmhx of CHF (grade I diastolic dysfunction), asthma, hypothyroidism (remote papillary thyroid cancer s/p resection), HTN, DM type II, and CSF leak (now wheel chair bound) who presented for a 3-4 day h/o increasing shortness of breath, cough, leg swelling, O2 sat of 79% and pulmonary edema on imaging. Hypoxia most likely secondary to CHF exacerbation. # Hypoxia Likely due to CHF exacerbation. No signs of infection or afib on cardiac monitoring. -Per EMS was hypoxic on room air with O2 sats =79%. Was placed on 2L of O2. Does not wear O2 at baseline -No ABGs received at baseline -Chest x-ray showed mild interstitial thickening, pulmonary edema, and trace right pleural effusion -CT showed interstitial edema with subtle groundglass alveolar edema, small right pleural effusion and trace left pleural effusion -Blood cultures X2 negative and urine culture negative -Continue on 2L of O2 and titrate as needed. O2 has been in low 90s% -Encourage flutter device # Acute CHF exacerbation, improving with increased diuresis -EKG showed sinus tachycardia, low voltage QRS. Was admitted to [facility] with telemetry where have not noted afib or any abnormal findings -Echo done on 08/2019 showed normal left ventricular systolic function, EF of 55-60%, aortic valve sclerosis mild, no aortic valvular stenosis, grade 1 diastolic dysfunction. Repeat Echo 10/30/2020 unchanged with mild tricuspid regurgitation. -Neg troponin X1 -Pt. given 40 mg IV Lasix in the ED, transitioned to 20 mg IV Lasix and then returned to 40 mg IV Lasix due to need for increased diuresis -Output 2L (10/29-10/30) and negative fluid balance -1236 ml. Pt has weight reduction of 3kg since admission. -Continue Lasix 40 mg IV am. Will reassess fluid status tomorrow. Will consider home Lasix. 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 -K 3.6->3.0->3.4 (10/31). Pt. received 40 meq X2 this am (10/31). Will reassess tomorrow. -Continue HH/DM diet, fluid restriction of 1500 mL. Reports that she does not eat diet high in salt. -Strict I/Os -CBC/BMP qAM -Transition to MedSurg because of nml cardiac monitoring # HTN -Slightly elevated BP upon admission, 160/90 -BP remains slightly elevated at 140-150s/70s -Continue losartan 100 mg HS, amlodipine 7.5 mg daily for now but consider lowering dose given edema # Hypothyroidism s/p papillary thyroid carcinoma status post resection On 10/29 TSH 10.4 and FT4 1.27 -Continue levothyroxine 112 mcg daily which was a recent increase according to pt. 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 -PT/OT ordered once today 10/30 # Hyperglycemia due to type 2 diabetes mellitus - Hold metformin, cover with ISS with accuchecks achs - A1C 9.4 from 05/17/20, recheck with am labs - Continue Levemir 30 U daily CODE: Full code FENGI: HH/DM diet, fluid restriction of 1500 mL DVT prophylaxis: Teds, scds, Lovenox subq DISPO: Transition to Med Surg (2) CHF (congestive heart failure): Heart failure chronicity: acute Heart failure type: unspecified Qualified Code(s): I50.9 - Heart failure, unspecified (3) CSF leak: (4) Vitamin D deficiency: (5) Hx of papillary thyroid carcinoma: (6) Hypothyroidism (acquired): (7) Hypoxia: (8) HTN (hypertension): Hypertension type: essential hypertension Qualified Code(s): I10 - Essential (primary) hypertension (9) Pleurisy without effusion: (10) Hyperglycemia due to type 2 diabetes mellitus: Diabetes mellitus fdc insulin use: without fdc use Qualified Code(s): E11.65 - Type 2 diabetes mellitus with hyperglycemia Admission and Anticipated Discharge Date Admission Date: October 29, 2020 Supervising Attestation Medical Student Supervision Note: I was personally present during medical student patient encounter and independently interviewed and examined the patient and verified the dickerson history and physical, reviewed labs and image studies, discussed the case with Lilli Butt and agree with the findings and care plan. Acute hypoxic respiratory failure sec to acute diastolic chf exacerbation - diuresing well. in negative balance - continue IV lasix and monitor I and O. - monitor bmp. - Oxygen supplement. Subjective Ms. Logan says that she has not experienced much relief from the Lasix. She is still feeling shortness of breath on 2L of O2 and is using the flutter device. She does note that her leg swelling has somewhat reduced. She continues to deny fevers or chills, chest pain or palpitations. She has had a BM. Urinating a lot from the Lasix. Review of Systems Review of Systems: All systems reviewed & are unremarkable except as noted in HPI & below Physical Exam Physical Exam: General: Well developed, obese, sitting in hospital bed, conversational Respiratory: No wheezes, or rhonchi. Diffuse crackles throughout through improved since yesterday. Shallow breaths with reduced air movement. Cardiovascular: RRR, no murmurs, gallops or rubs. Slight JVD. Trace edema in legs. Abdomen: Soft, non-tender, nondistended. Neuro: Alert and oriented X3. Psych: Speech nl rate and volume, through process linear, affect appropriate Results & Data ([facility]) Vital Signs (Past 12 Hours) Vital Signs Temp Pulse Pulse Resp BP BP Pulse Ox 10/31/20 11:21 36.6 C 74 16 148/71 H 93 10/31/20 07:58 36.3 C L 79 16 137/70 91 10/31/20 07:39 78 10/31/20 03:30 37 C 80 18 141/73 H 92
[2020-11-01] MEDS: LOSARTAN POTASSIUM 50 MG TAB PO SCH (01:17)
[2020-11-01] MEDS: LEVOTHYROXINE SODIUM 125 MCG TABLET PO SCH (05:36)
[2020-11-01 07:06] LABS: Hematocrit (blood only) 41.5 % (37-47); Hemoglobin 13.1 g/dL (12.0-16.0); Mean Corpuscular Hemoglobin 28.1 pg (25-34); Mean Corpuscular Hgb Conc 31.6 g/dL (32-36); Mean Corpuscular Volume 88.9 fL (80-100); Platelet Count 341 K/uL (130-400); RDW Coefficient of Variation 14.4 % (11.5-14.5); RDW Standard Deviation 46.5 fL (36.4-46.3); Red Blood Count 4.67 M/uL (4.2-5.4); White Blood Count 8.92 K/uL (4.8-10.8)
[2020-11-01 07:44] LABS: Albumin Level 3.1 gm/dl (3.4-5.0); BUN Creatinine Ratio 33.3 (10-20); Calcium 8.9 mg/dl (8.5-10.1); Creatinine Clr Calc Pharmacy 114.9 ml/min; Est GFR (African American) 108.6; Est GFR (Non-African American) 93.7; Potassium 3.6 mmol/L (3.5-5.1)
[2020-11-01 07:49] LABS: Albumin Globulin Ratio 0.7 (0.9-2); Bilirubin,Total 0.7 mg/dl (0.2-1); Globulin 4.2 gm/dl (2.5-4.0); Total Protein 7.3 gm/dl (6.4-8.2)
[2020-11-01] MEDS: FUROSEMIDE 40 MG in SYRINGE 0 ML IV SCH (08:26)
[2020-11-01] MEDS: INSULIN ASPART 100 UNITS/ML 3 ML PEN SC SCH ×4 (08:29→20:55)
[2020-11-01] MEDS: INSULIN DETEMIR FLEXPEN/FLEX TOUCH 100 UNITS/ML 3ML SC SCH (08:30)
[2020-11-01] MEDS: ENOXAPARIN INJ 40 MG/0.4 ML SYR SQ SCH (08:31)
[2020-11-01] MEDS ORDERED: BUMETANIDE 1 MG in SYRINGE 0 ML IV STA (11:53)
[2020-11-01] MEDS: amLODIPine BESYLATE 5 MG TAB PO SCH (12:47)
[2020-11-01] MEDS ORDERED: POTASSIUM CHLORIDE PWD 20 MEQ PACK PO STA (13:22)
[2020-11-01] MEDS ORDERED: FUROSEMIDE 40 MG in SYRINGE 0 ML IV ONE (13:30)
--- NOTE | 2020-11-01 14:26 | Medical Student Progress Note ---
Date of Service November 01, 2020 Assessment & Plan (1) CHF exacerbation: Ms. Logan is a 74-year-old female with a pmhx of CHF (grade I diastolic dysfunction), asthma, hypothyroidism (remote papillary thyroid cancer s/p resection), HTN, DM type II, and CSF leak (wheel chair bound) who presented for a 3-4 day h/o increasing shortness of breath, cough, leg swelling, O2 sat of 79% and pulmonary edema on imaging. Hypoxia most likely secondary to CHF exacerbation. # Hypoxia, mild improvement Likely due to CHF exacerbation. No signs of infection or afib on cardiac monitoring which has since been discontinued -Per EMS was hypoxic on room air with O2 sats =79%. Was placed on 2L of O2. Does not wear O2 at baseline -No ABGs received at baseline -Chest x-ray showed mild interstitial thickening, pulmonary edema, and trace right pleural effusion -CT showed interstitial edema with subtle groundglass alveolar edema, small right pleural effusion and trace left pleural effusion -Blood cultures X2 negative and urine culture negative -Continue on 2L of O2 and titrate as needed. O2 has been in low 90s% -Encourage flutter device # Acute diastolic CHF exacerbation, mild improvement but more diuresis needed -EKG showed sinus tachycardia, low voltage QRS. Was admitted to [facility] with telemetry but no afib or abnormal findings were found so transitioned to [facility] -Echo done on 08/2019 showed normal left ventricular systolic function, EF of 55-60%, aortic valve sclerosis mild, no aortic valvular stenosis, grade 1 diastolic dysfunction. Repeat Echo 10/30/2020 unchanged with mild tricuspid regurgitation. -Neg troponin X1 -Pt. given 40 mg IV Lasix in the ED, transitioned to 20 mg IV Lasix and then returned to 40 mg IV Lasix -Negative fluid balance -1236 ml (10/29-10/30)-->300 (10/30-10/31). Pt has weight reduction of 3kg since admission. Will need repeat weight. -Increased Lasix 40 mg IV qam (10/31)->Lasix 40 mg IV X2 (11/01) because of continued SOB, positive fluid balance and crackles on exam. Will reassess fluid status tomorrow. -K 3.6->3.0->3.4->3.6 (10/31). Pt. given 40 meq X2 today (11/01). Will reassess tomorrow. Goal is 4.0 given CHF. -Continue HH/DM diet, fluid restriction of 1500 mL. Reports that she does not eat diet high in salt. -Strict I/Os -CBC/BMP qAM # HTN -Slightly elevated BP upon admission, 160/90 -BP remains elevated at 140-160s/70s -Continue losartan 100 mg HS, amlodipine 7.5 mg daily for now but consider lowering dose given edema # Hypothyroidism s/p papillary thyroid carcinoma status post resection On 10/29 TSH 10.4 and FT4 1.27 -Continue levothyroxine 112 mcg daily which was a recent increase according to pt. 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 -PT/OT ordered # Hyperglycemia due to type 2 diabetes mellitus - Hold metformin, cover with ISS with accuchecks achs - A1C 9.4 from 05/17/20, recheck with am labs - Continue Levemir 30 U daily CODE: Full code FENGI: HH/DM diet, fluid restriction of 1500 mL DVT prophylaxis: Teds, scds, Lovenox subq DISPO: Med Surg (2) CHF (congestive heart failure): Heart failure chronicity: acute Heart failure type: unspecified Qualified Code(s): I50.9 - Heart failure, unspecified (3) CSF leak: (4) Vitamin D deficiency: (5) Hx of papillary thyroid carcinoma: (6) Hypothyroidism (acquired): (7) Hypoxia: (8) HTN (hypertension): Hypertension type: essential hypertension Qualified Code(s): I10 - Essential (primary) hypertension (9) Pleurisy without effusion: (10) Hyperglycemia due to type 2 diabetes mellitus: 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 Positive fluid balance. ? not able to measure all the amount. give extra dose lasix - follow fluid balance consider 2 step in am Subjective She does not feel that her shortness of breath has improved since admission and reports that it is worse with exertion. She reports a non-productive cough starting last night. No fevers or chills. Some chest pain which she attributes to coughing. No nausea. She did not have a BM yesterday but does not feel constipated. She feels that her leg edema has decreased since admission. She reports that she did not urinate as much yesterday compared to 2 days ago but also doesn't think her urine output was fully measured. Review of Systems Review of Systems: All systems reviewed & are unremarkable except as noted in HPI & below Physical Exam Physical Exam: General: Well developed, obese, sitting in hospital bed, conversational Respiratory: No wheezes, or rhonchi. Diffuse crackles throughout through improved since yesterday. Shallow breaths with reduced air movement. Cardiovascular: RRR, no murmurs, gallops or rubs. Trace edema in legs. Abdomen: Soft, non-tender, nondistended. Neuro: Alert and oriented X3. Psych: Speech nl rate and volume, through process linear, affect appropriate Results & Data ([facility]) Vital Signs (Past 12 Hours) Vital Signs Temp Pulse Resp BP Pulse Ox 11/01/20 11:41 36.5 C 89 20 168/85 H 91 11/01/20 07:43 36.7 C 83 20 145/76 H 93
[2020-11-02] MEDS: LOSARTAN POTASSIUM 50 MG TAB PO SCH (00:18)
[2020-11-02] MEDS: LEVOTHYROXINE SODIUM 125 MCG TABLET PO SCH (06:36)
[2020-11-02] MEDS: INSULIN ASPART 100 UNITS/ML 3 ML PEN SC SCH ×4 (08:30→20:30)
[2020-11-02] MEDS: INSULIN DETEMIR FLEXPEN/FLEX TOUCH 100 UNITS/ML 3ML SC SCH (08:31)
[2020-11-02] MEDS: ENOXAPARIN INJ 40 MG/0.4 ML SYR SQ SCH (08:33)
[2020-11-02 08:51] LABS: Hemoglobin 13.6 g/dL (12.0-16.0); Mean Corpuscular Hemoglobin 28.5 pg (25-34); Mean Corpuscular Hgb Conc 32.4 g/dL (32-36); Mean Corpuscular Volume 87.9 fL (80-100); Mean Platelet Volume 9.6 fL (7.4-10.4); Platelet Count 331 K/uL (130-400); RDW Coefficient of Variation 14.3 % (11.5-14.5); RDW Standard Deviation 46.2 fL (36.4-46.3); Red Blood Count 4.78 M/uL (4.2-5.4); White Blood Count 7.89 K/uL (4.8-10.8)
[2020-11-02 09:32] LABS: BUN Creatinine Ratio 34.2 (10-20); Calcium 8.8 mg/dl (8.5-10.1); Creatinine Clr Calc Pharmacy 94.3 ml/min; Est GFR (African American) 101.8; Est GFR (Non-African American) 87.8; Potassium 3.6 mmol/L (3.5-5.1)
[2020-11-02] MEDS: FUROSEMIDE 40 MG in SYRINGE 0 ML IV SCH (09:37)
[2020-11-02] MEDS: amLODIPine BESYLATE 5 MG TAB PO SCH (12:35)
[2020-11-02] MEDS ORDERED: POTASSIUM CHLORIDE PWD 20 MEQ PACK PO STA (17:35)
--- NOTE | 2020-11-02 17:36 | Hospitalist Progress Note ---
Date of Service November 02, 2020 Assessment & Plan (1) CHF exacerbation: Ms. Logan is a 74-year-old female with a pmhx of CHF (grade I diastolic dysfunction), asthma, hypothyroidism (remote papillary thyroid cancer s/p resection), HTN, DM type II, and CSF leak (wheelchair bound) who presented for a 3-4 day h/o increasing shortness of breath, cough, leg swelling, O2 sat of 79% and pulmonary edema on imaging. Hypoxia most likely secondary to CHF exacerbation. Acute respiratory failure - mild improvement Likely due to CHF exacerbation. No signs of infection or afib on cardiac monitoring which has since been discontinued -Per EMS was hypoxic on room air with O2 sats =79%. Was placed on 2L of O2. Does not wear O2 at baseline -No ABGs received at baseline -Chest x-ray showed mild interstitial thickening, pulmonary edema, and trace right pleural effusion -CT showed interstitial edema with subtle groundglass alveolar edema, small right pleural effusion and trace left pleural effusion -Blood cultures X2 negative and urine culture negative -NC today titrated down to 1L with O2 sat remaining at low 90s. -Encourage flutter device -Evaluated by RT today in anticipation of discharge--found that she will need 1L NC for home - Case Management secured oxygen tank delivery prior to discharge -Likely DC tomorrow AM Acute diastolic CHF exacerbation, mild improvement but more diuresis needed -EKG showed sinus tachycardia, low voltage QRS. Was admitted to [facility] with telemetry but no afib or abnormal findings were found so transitioned to [facility] -Echo done on 08/2019 showed normal left ventricular systolic function, EF of 55-60%, aortic valve sclerosis mild, no aortic valvular stenosis, grade 1 diastolic dysfunction. Repeat Echo 10/30/2020 unchanged with mild tricuspid regurgitation. -Neg troponin X1 -Pt. given 40 mg IV Lasix in the ED, transitioned to 20 mg IV Lasix and then returned to 40 mg IV Lasix -Negative fluid balance -1236 ml (10/29-10/30)-->300 (10/30-10/31). Pt has weight reduction of 3kg since admission. Will need repeat weight. -Increased Lasix 40 mg IV qam (10/31)->Lasix 40 mg IV X2 (11/01) because of continued SOB, positive fluid balance and crackles on exam - Fluid balance today negative; crackles remain but patient overall progressing - Continue Furosemide 40 mg IV daily -K 3.6->3.0->3.4->3.6->3.6 (11/02). Pt. given 40 meq X1 today (11/02). Will reas sess tomorrow. Goal is 4.0 given CHF. -Continue HH/DM diet, fluid restriction of 1500 mL. Reports that she does not eat diet high in salt. -Strict I/Os -CBC/BMP qAM -? amlodipine possibly contributing to fluid overload. Will further assess. Denies any excess salt use. HTN -Slightly elevated BP upon admission, 160/90 -BP remains elevated at 140-160s/70s -Continue losartan 100 mg HS, amlodipine 7.5 mg daily for now but consider lowering dose given edema Hypothyroidism s/p papillary thyroid carcinoma status post resection On 10/29 TSH 10.4 and FT4 1.27 -Continue levothyroxine 112 mcg daily which was a recent increase according to pt. -Recommend repeat TSH in 4 to 6 weeks Asthma -Albuterol 2puffs q6H -Hypoxia management above CSF leak -2010 hospitalized and led to coma for 4 to 5 days leading to being wheelchair bound. -PT/OT ordered Hyperglycemia due to type 2 diabetes mellitus - Hold metformin, cover with ISS with accuchecks ac/hs - A1C 9.4 from 05/17/20 - A1C 8.8 on 10/30/20 - Continue Levemir 30 U daily CODE: Full code FENGI: HH/DM diet, fluid restriction of 1500 mL DVT prophylaxis: Teds, scds, Lovenox SQ DISPO: Med Surg (2) CSF leak: (3) Vitamin D deficiency: (4) Hx of papillary thyroid carcinoma: (5) Hypothyroidism (acquired): (6) Hypoxia: (7) CHF (congestive heart failure): (8) HTN (hypertension): (9) Pleurisy without effusion: (10) Hyperglycemia due to type 2 diabetes mellitus: Admission and Anticipated Discharge Date Admission Date: October 29, 2020 Supervising Physician Co-Signing Physician Notes Resident Physician Supervision Note: I independently interviewed and examined the patient and verified the dickerson history and physical, reviewed labs and image studies, discussed the case with the resident Dr. Carter and agree with the findings and care plan. Subjective Feels she is still short of breath though feeling somewhat better. She remains hemodynamically stable. Has continued to require 2L NC. Feels her leg edema is improved since yesterday. Feels she has been urinating a fair amount on the Lasix. Fluid balance negative today. Review of Systems Review of Systems: All systems reviewed & are unremarkable except as noted in HPI & below Physical Exam Constitutional: WD/WN, vitals as above no acute distress Neck: trachea midline, no thyromegaly Respiratory: Auscultation: + crackles; no rales, no rhonchi and no wheezes Cardiovascular: Rate/Rhythm: regular rate and regular rhythm Heart Sounds: normal S1 and normal S2; no gallop, no murmur and no cardiac rub Extremities: + edema (Trace at BLE) Gastrointestinal (Abdomen): normal bowel sounds, soft, nontender, no hepatosplenomegaly Skin: no rashes, warm and dry Psychiatric: A+Ox3, euthymic affect Results & Data Results & Data ([facility]) Vital Signs (Past 12 Hours) Vital Signs Temp Pulse Pulse Pulse Pulse Resp Resp 11/02/20 15:52 36.6 C 86 18 11/02/20 12:09 87 87 88 16 11/02/20 11:32 36.5 C 93 H 18 11/02/20 07:00 37.0 C 88 18 Resp Resp BP BP Pulse Ox Pulse Ox Pulse Ox 11/02/20 15:52 158/77 H 92 11/02/20 12:09 16 16 91 91 11/02/20 11:32 139/77 91 11/02/20 07:00 148/76 H 90 Pulse Ox 11/02/20 15:52 11/02/20 12:09 81 L 11/02/20 11:32 11/02/20 07:00 Resident Activity Tracking Resident Involvement: Resident Care Provided Care Provided: Adult Hospital Medicine (1) Hyperglycemia due to type 2 diabetes mellitus Diabetes mellitus detention insulin use: without detention use Qualified Code(s): E11.65 - Type 2 diabetes mellitus with hyperglycemia (2) CHF (congestive heart failure) Heart failure chronicity: acute Heart failure type: unspecified Qualified Code(s): I50.9 - Heart failure, unspecified (3) HTN (hypertension) Hypertension type: essential hypertension Qualified Code(s): I10 - Essential (primary) hypertension
[2020-11-03] MEDS: LOSARTAN POTASSIUM 50 MG TAB PO SCH ×2 (00:18→23:59)
[2020-11-03 06:04] LABS: Hematocrit (blood only) 40.3 % (37-47); Hemoglobin 12.5 g/dL (12.0-16.0); Mean Corpuscular Hemoglobin 27.5 pg (25-34); Mean Corpuscular Volume 88.8 fL (80-100); Mean Platelet Volume 9.4 fL (7.4-10.4); Platelet Count 269 K/uL (130-400); RDW Coefficient of Variation 14.4 % (11.5-14.5); RDW Standard Deviation 46.7 fL (36.4-46.3); Red Blood Count 4.54 M/uL (4.2-5.4); White Blood Count 7.28 K/uL (4.8-10.8)
[2020-11-03] MEDS: LEVOTHYROXINE SODIUM 125 MCG TABLET PO SCH (06:09)
[2020-11-03 06:39] LABS: BUN Creatinine Ratio 41.2 (10-20); Calcium 8.3 mg/dl (8.5-10.1); Creatinine Clr Calc Pharmacy 107.1 ml/min; Est GFR (African American) 106.1; Est GFR (Non-African American) 91.6; Potassium 3.8 mmol/L (3.5-5.1)
[2020-11-03] MEDS: FUROSEMIDE 40 MG in SYRINGE 0 ML IV SCH (08:35)
[2020-11-03] MEDS: INSULIN DETEMIR FLEXPEN/FLEX TOUCH 100 UNITS/ML 3ML SC SCH (08:35)
[2020-11-03] MEDS: INSULIN ASPART 100 UNITS/ML 3 ML PEN SC SCH ×4 (08:38→20:55)
[2020-11-03] MEDS: ENOXAPARIN INJ 40 MG/0.4 ML SYR SQ SCH (09:16)
--- NOTE | 2020-11-03 12:05 | Discharge Summary ---
Date of Service November 03, 2020 Admission HPI Per Admitting Provider This is a 74 yo F with PMHx of HTN, DM type II, hypothyroidism, remote papillary thyroid cancer s/p resection, craniotomy for CSF leak in ~2009 where she was hospitalized in [facility] and in a coma for 4-5 days. Afterwards was not able to walk again so is primarily wheelchair bound, however lifts herself to use bathroom/shower, and self propels herself. She is very independent individual who lives at home by herself, 5 years ago and her 3 children live in [facility] [place] [facility] and [place]. She presents with acute shortness of breath which started last evening when going to bed. Patient reports that she was unable to sleep lying flat. A similar presentation occurred was hospitalized about 1 year ago where she was diagnosed with pleurisy and had improvement in her sx with administration of steroids. She will also consider that she may have had pneumonia at that point in time and was treated with azithromycin. At this point time the patient denies any sore throat, runny nose, headache, congestion, known Covid positive persons. 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 She noted that she had increased difficulty with getting her groceries into her house this past week. Patient's legs have had increased swelling bilaterally over the past few days, she feels her abdomen is also swollen and 10 lb weight gain, notices that her clothes are tight. She denies any fevers or sweats, admits to having intermittent chills in the past 24 hours. Patient also complains of a significantly depressed appetite in the past few days, she has been taking her insulin as scheduled, Levemir 30 units in the morning but has not had any hypoglycemic episodes. Patient takes her glucose as well as blood pressure and pulse every morning for her PCP as she has been instructed to do so at home. Patient was significantly concerned and that she had COVID-19 infection however that is negative here in the ER. Discharge Data Allergies Allergy/AdvReac Type Severity Reaction Status Date / Time aspirin Allergy Severe HIVES; Verified 10/29/20 11:56 DIFFICULTY BREATHING Penicillins Allergy Severe HIVES AND Verified 10/29/20 11:56 DIFFICULTY BREATHING Benzodiazepines Allergy Mild Unknown Verified 10/29/20 11:56 doxycycline Allergy Mild Unknown Verified 10/29/20 11:56 Sulfa (Sulfonamide Allergy Mild Unknown Verified 10/29/20 11:56 Antibiotics) aspartame Allergy Unknown Unknown Verified 10/29/20 11:56 diltiazem Allergy Unknown UNKNOWN Verified 10/29/20 11:56 REACTION epinephrine Allergy Unknown UNKNOWN Verified 10/29/20 11:56 REACTION melon Allergy Unknown Unknown Verified 10/30/20 11:57 moxifloxacin Allergy Unknown UNKNOWN Verified 10/29/20 11:56 REACTION nifedipine Allergy Unknown UNKNOWN Verified 10/29/20 11:56 REACTION simvastatin Allergy Unknown UNKNOWN Verified 10/29/20 11:56 REACTION PER PT vancomycin Allergy Unknown UNKNOWN Verified 10/29/20 11:56 REACTION colchicine AdvReac Intermediate Difficulty Verified 10/29/20 11:56 Breathing Consultations 10/29/20 15:16 ED Decision to Admit Stat 10/29/20 17:50 Consult Case Management - Discharge Planning Routine Ordered Studies 10/29/20 14:21 CT angio chest PE protocol Stat Hospital Course (1) CHF exacerbation: Ms. Logan is a 74-year-old female with a pmhx of CHF (grade I diastolic dysfunction), asthma, hypothyroidism (remote papillary thyroid cancer s/p resection), HTN, DM type II, and CSF leak (wheelchair bound) who presented for a 3-4 day h/o increasing shortness of breath, cough, leg swelling, O2 sat of 79% and pulmonary edema on imaging. Hypoxia most likely secondary to CHF exacerbation. Hypoxia, mild improvement Likely due to CHF exacerbation. No signs of infection or afib on cardiac monitoring which has since been discontinued -Per EMS was hypoxic on room air with O2 sats =79%. Was placed on 2L of O2. Does not wear O2 at baseline -No ABGs received at baseline -Chest x-ray showed mild interstitial thickening, pulmonary edema, and trace right pleural effusion -CT showed interstitial edema with subtle groundglass alveolar edema, small right pleural effusion and trace left pleural effusion -Blood cultures X2 negative and urine culture negative -NC today titrated down to 1L with O2 sat remaining at low 90s. -Encourage flutter device -Evaluated by RT today in anticipation of discharge--found that she will need 1L NC for home - Case Management secured oxygen tank delivery prior to discharge -Likely DC tomorrow AM Acute diastolic CHF exacerbation, mild improvement but more diuresis needed -EKG showed sinus tachycardia, low voltage QRS. Was admitted to [facility] with telemetry but no afib or abnormal findings were found so transitioned to [facility] -Echo done on 08/2019 showed normal left ventricular systolic function, EF of 55-60%, aortic valve sclerosis mild, no aortic valvular stenosis, grade 1 diastolic dysfunction. Repeat Echo 10/30/2020 unchanged with mild tricuspid regurgitation. -Neg troponin X1 -Pt. given 40 mg IV Lasix in the ED, transitioned to 20 mg IV Lasix and then returned to 40 mg IV Lasix -Negative fluid balance -1236 ml (10/29-10/30)-->300 (10/30-10/31). Pt has weight reduction of 3kg since admission. Will need repeat weight. -Increased Lasix 40 mg IV qam (10/31)->Lasix 40 mg IV X2 (11/01) because of continued SOB, positive fluid balance and crackles on exam - Fluid balance today negative; crackles remain but patient overall progressing - Continue Furosemide 40 mg IV daily -K 3.6->3.0->3.4->3.6->3.6 (11/02). Pt. given 40 meq X1 today (11/02). Will reassess tomorrow. Goal is 4.0 given CHF. -Continue HH/DM diet, fluid restriction of 1500 mL. Reports that she does not eat diet high in salt. -Strict I/Os -CBC/BMP qAM HTN -Slightly elevated BP upon admission, 160/90 -BP remains elevated at 140-160s/70s -Continue losartan 100 mg HS, amlodipine 7.5 mg daily for now but consider lowering dose given edema Hypothyroidism s/p papillary thyroid carcinoma status post resection On 10/29 TSH 10.4 and FT4 1.27 -Continue levothyroxine 112 mcg daily which was a recent increase according to pt. -Recommend repeat TSH in 4 to 6 weeks Asthma -Albuterol 2puffs q6H -Hypoxia management above CSF leak -2009 hospitalized and led to coma for 4 to 5 days leading to being wheelchair bound. -PT/OT ordered Hyperglycemia due to type 2 diabetes mellitus - Hold metformin, cover with ISS with accuchecks ac/hs - A1C 9.4 from 05/17/20 - A1C 8.8 on 10/30/20 - Continue Levemir 30 U daily CODE: Full code FENGI: HH/DM diet, fluid restriction of 1500 mL DVT prophylaxis: Teds, scds, Lovenox SQ DISPO: Med Surg (2) CSF leak: (3) Vitamin D deficiency: (4) Hx of papillary thyroid carcinoma: (5) Hypothyroidism (acquired): - Cont levothyroxine 112 mcg daily for now, s/p papillary thyroid carcinoma status post resection. TSH elevated at 25 in 04/2020-repeat now and adjust levothyroxine as needed Followed up on results of TSH which was abnormal at 10.4, free T4 was normal at 1.27 Increase levothyroxine 125 mcg p.o. once daily started in the morning Recommend repeat TSH in 4 to 6 weeks (6) Hypoxia: 74-year-old female who presents with worsening shortness of breath and orthopnea over the last few days. She has noted 10 pain weight gain, lower extremity edema that is chronic but steadily worsening, and some abdominal distention. She does admit to eating high sodium foods at times, but does not drink excessive amounts of fluid. She denies any chest pain. She was hypoxic in the ER requiring oxygen. She was negative for Covid-19. Chest CT showed pleural effusions and pulmonary edema but no pneumonia. No PE 74-year-old female here with acute respiratory failure with hypoxia and pulmonary edema, worsening lower extremity edema Question diastolic CHF versus myxedema from elevated TSH Diuresis with IV Lasix Control blood pressure-consider decreasing amlodipine dose and adding on daily Lasix Wean off supplemental O2 as able to Check TSH -Admit to [facility] with telemetry -Initially was hypoxic on room air with O2 sats =79%, does not wear O2 at baseline, currently requiring 2 L to maintain sats in mid 90s -No ABG was obtained on admission -Thought that this is secondary to cardiac versus pulmonary issue, will treat this like a CHF exacerbation with pleural effusions as seen on CT of the chest -Hx of pleurisy but no chest pain here (7) CHF (congestive heart failure): - last echo was done in 08/2019 which showed normal left ventricular systolic function, EF of 55-60%, aortic valve sclerosis mild, no aortic valvular stenosis, grade 1 diastolic dysfunction. -Also with significantly elevated TSH in April/2020-question if has myxedema picture contributing - Recheck Echo - Lasix 40 mg IV administered in the ER - out 700mL while at bedside with pure wick urinary device in place, - Follow strict I/Os and determine further diuresis - Initial troponin is negative, trend Q8 x 2 more sets - Consider cardiology consult - Allow HH/DM diet, fluid restriction of 1500 mL -Given chronic lower extremity edema, would consider sending home on daily Lasix with potassium supplementation and possibly reducing dose of amlodipine (8) HTN (hypertension): - Continue losartan 100 mg HS, amlodipine 7.5 mg daily for now but consider lowering dose and adding daily diuretic instead given lower extremity edema - Slightly elevated BP upon admission, 160/90 (9) Pleurisy without effusion: (10) Hyperglycemia due to type 2 diabetes mellitus: Discharge Plan Discharge Items Patient Disposition: Home - Self-Care Reason For Visit: SHORTNESS OF BREATH, PLEURAL EFFUSION Discharge Diagnosis: Acute respiratory failure secondary to acute diastolic heart failure Activity: Resume your previous activity Non-emergency contact: Primary Care Provider Call non-emergency contact if: you have any medication questions Follow-up/Referrals: Danny Bhatia MD [Primary Care Provider] - Diet: Carb Consistent or DM2 and Heart Healthy Addtl Attending Provider Instructions: You were admitted to [facility] due to acute respiratory failure in the setting of a CHF exacerbation. While admitted you were treated with a diuretic, Furosemide, to help clear fluid out from your lungs and help your breathing. You progressed to the point that you were deemed ready for discharge. However, you will need to have supplemental oxygen going forward, at least temporarily. You will also continue taking Lasix 40 mg orally every day. Additionally you will take potassium supplements to prevent you developing low potassium from the Lasix. As you had mentioned this tends to cause constipation for you, we suggest that you take Senokot daily to help prevent this. A prescription has been sent for you to your preferred pharmacy. We also recommend that you lower your amlodipine dose to 5mg (two pills) daily, as this medication can cause edema/fluid buildup in the body. Please follow up with your primary care provider within the next week to discuss your hospitalization and any changes that had to be made to your treatment regimen. Thank you for allowing us to participate in your care. Pending Studies at Discharge: No Stand-Alone Forms: My [employer], Smoking Cessation Medications and DC Order Prescriptions: New furosemide 40 mg tablet 40 mg PO QAM Qty: 30 RF: 0 potassium chloride 20 mEq tablet extended release 20 meq PO DAILY Qty: 30 RF: 0 sennosides [Senokot] 8.6 mg tablet 17.2 mg PO DAILY Qty: 60 RF: 0 Continued losartan [Cozaar] 100 mg tablet 100 mg PO HS RF: 0 albuterol sulfate 90 mcg/actuation Hfa Aerosol Inhaler 2 puff INHALATION Q6H PRN (Reason: Shortness Of Breath Or Wheezing) RF: 0 acetaminophen [Tylenol Extra Strength] 500 mg Tablet 500 mg PO Q6H PRN (Reason: Pain) RF: 0 Levemir U-100 Insulin 100 unit/mL Solution 30 unit SUBCUT DAILY RF: 0 metformin [Glucophage] 500 mg tablet 500 mg PO TIDM RF: 0 diazepam [Valium] 5 mg tablet 5 mg PO HS PRN (Reason: sleep) Qty: 7 RF: 0 levothyroxine 112 mcg tablet 112 mcg PO DAILY RF: 0 Changed amlodipine 2.5 mg tablet 5 mg PO DAILY Qty: 0 RF: 0 Krames/Other Patient Handouts: Managing Type 2 Diabetes Admission Data Admit Date/Time: 10/29/20 16:07 Attending Provider: Gabby Pennington Admit Provider: Adrianna Jensen Primary Care Provider: Danny Bhatia Other Providers: Adrianna Jensen
[2020-11-03] MEDS: amLODIPine BESYLATE 5 MG TAB PO SCH (12:29)
--- NOTE | 2020-11-03 13:46 | Hospitalist Progress Note ---
Date of Service November 03, 2020 Assessment & Plan (1) CHF exacerbation: Ms. Logan is a 74-year-old female with a pmhx of CHF (grade I diastolic dysfunction), asthma, hypothyroidism (remote papillary thyroid cancer s/p resection), HTN, DM type II, and CSF leak (wheelchair bound) who presented for a 3-4 day h/o increasing shortness of breath, cough, leg swelling, O2 sat of 79% and pulmonary edema on imaging. Hypoxia most likely secondary to CHF exacerbation. Hypoxia, mild improvement Likely due to CHF exacerbation. No signs of infection or afib on cardiac monitoring which has since been discontinued -Per EMS was hypoxic on room air with O2 sats =79%. Was placed on 2L of O2. Does not wear O2 at baseline -No ABGs received at baseline -Chest x-ray showed mild interstitial thickening, pulmonary edema, and trace right pleural effusion -CT showed interstitial edema with subtle groundglass alveolar edema, small right pleural effusion and trace left pleural effusion -Blood cultures X2 negative and urine culture negative -NC today titrated down to 1L with O2 sat remaining at low 90s. -Encourage flutter device -Evaluated by RT 11/02 in anticipation of discharge--found that she will need 1L NC for home -Case Management today working to arrange viable option for her at home--informed medical team as below: -[facility] will deliver small tank for her to take home. Once she is discharged, nursing needs to call Case Management. Case Management will call [facility]. They will meet pt at home and set her up with an oxygen configuration that will work for her at home. -Likely DC tomorrow AM Acute diastolic CHF exacerbation, mild improvement but more diuresis needed -EKG showed sinus tachycardia, low voltage QRS. Was admitted to [facility] with telemetry but no afib or abnormal findings were found so transitioned to [facility] -Echo done on 08/2019 showed normal left ventricular systolic function, EF of 55-60%, aortic valve sclerosis mild, no aortic valvular stenosis, grade 1 diastolic dysfunction. Repeat Echo 10/30/2020 unchanged with mild tricuspid regurgitation. -Neg troponin X1 -Pt. given 40 mg IV Lasix in the ED, transitioned to 20 mg IV Lasix and then returned to 40 mg IV Lasix -Negative fluid balance -1236 ml (10/29-10/30)-->300 (1/13-10/31). Pt has weight reduction of 3kg since admission. Will need repeat weight. -Increased Lasix 40 mg IV qam (10/31)->Lasix 40 mg IV X2 (11/01) because of continued SOB, positive fluid balance and crackles on exam -Fluid balance negative 2.2L (11/03) -Continue Furosemide 40 mg IV daily--will continue on oral furosemide on DC -Potassium 3.6->3.0->3.4->3.6->3.6->3.8 (11/03). Pt. given 20 meq X1 today (11/03). Will reassess tomorrow. Goal is 4.0 given CHF. -Continue HH/DM diet, fluid restriction of 1500 mL. Reports that she does not eat diet high in salt. -Strict I/Os -CBC/BMP qAM HTN -Slightly elevated BP upon admission, 160/90 -BP remains elevated at 140-160s/70s -Continue losartan 100 mg HS - Amlodipine to be reduced to 5mg daily, as it may be contributing to edema Hypothyroidism s/p papillary thyroid carcinoma status post resection On 10/29 TSH 10.4 and FT4 1.27 -Continue levothyroxine 112 mcg daily which was a recent increase according to pt. -Recommend repeat TSH in 4 to 6 weeks Asthma -Albuterol 2puffs q6H -Hypoxia management above CSF leak -2010 hospitalized and led to coma for 4 to 5 days leading to being wheelchair bound. -PT/OT ordered Hyperglycemia due to type 2 diabetes mellitus - Hold metformin, cover with ISS with accuchecks ac/hs - A1C 9.4 from 05/17/20 - A1C 8.8 on 10/30/20 - Continue Levemir 30 U daily CODE: Full code FENGI: HH/DM diet, fluid restriction of 1500 mL DVT prophylaxis: Teds, scds, Lovenox SQ DISPO: Med Surg (2) CSF leak: (3) Vitamin D deficiency: (4) Hx of papillary thyroid carcinoma: (5) Pleurisy without effusion: (6) Hyperglycemia due to type 2 diabetes mellitus: (7) Hypothyroidism (acquired): (8) Hypoxia: (9) HTN (hypertension): Admission and Anticipated Discharge Date Admission Date: October 29, 2020 Supervising Physician Co-Signing Physician Notes Resident Physician Supervision Note: I independently interviewed and examined the patient and verified the dickerson history and physical, reviewed labs and image studies, discussed the case with the resident Dr. Carter and agree with the findings and care plan. Subjective Patient this morning feels she is breathing somewhat better but still some SOB when moving around. Her main concern is that the oxygen tank that was delivered for her in anticipation of going home will not be a viable alternative for her. Feels it is too heavy and she will not be able to move it up and down the stairs at her home--additionally she says that the person that will pick her up and take her home won't be able to carry the tank for her into the home either. Motorcycle Riding Instructor informed of this and she contacted oxygen distributor who informed that they will be able to meet patient at home tomorrow and set up a configuration that works for her. Review of Systems Review of Systems: All systems reviewed & are unremarkable except as noted in Subjective Physical Exam Constitutional: WD/WN, vitals as above no acute distress Respiratory: normal respiratory effort, lungs clear to auscultation Auscultation: no crackles, no rales, no rhonchi and no wheezes Cardiovascular: Rate/Rhythm: regular rate and regular rhythm Heart Sounds: normal S1 and normal S2 Extremities: + edema (trace at BLE) Gastrointestinal (Abdomen): normal bowel sounds, soft, nontender, no hepatosplenomegaly Skin: no rashes, warm and dry Psychiatric: A+Ox3, euthymic affect Results & Data Results & Data ([facility]) Vital Signs (Past 12 Hours) Vital Signs Temp Pulse Resp BP Pulse Ox 11/03/20 07:44 37.1 C 81 18 131/68 91 11/03/20 04:00 37.0 C 84 18 134/76 92 Resident Activity Tracking Resident Involvement: Resident Care Provided Care Provided: Adult Hospital Medicine (1) Hyperglycemia due to type 2 diabetes mellitus Diabetes mellitus jail insulin use: without jail use Qualified Code(s): E11.65 - Type 2 diabetes mellitus with hyperglycemia (2) HTN (hypertension) Hypertension type: essential hypertension Qualified Code(s): I10 - Essential (primary) hypertension
[2020-11-03] MEDS ORDERED: POTASSIUM CHLORIDE PWD 20 MEQ PACK PO ONE (15:53)
[2020-11-04] MEDS: LEVOTHYROXINE SODIUM 125 MCG TABLET PO SCH (06:16)
[2020-11-04 06:58] LABS: Hematocrit (blood only) 40.1 % (37-47); Hemoglobin 12.4 g/dL (12.0-16.0); Mean Corpuscular Hemoglobin 27.6 pg (25-34); Mean Corpuscular Hgb Conc 30.9 g/dL (32-36); Mean Corpuscular Volume 89.1 fL (80-100); Mean Platelet Volume 9.5 fL (7.4-10.4); Platelet Count 273 K/uL (130-400); RDW Coefficient of Variation 14.2 % (11.5-14.5); RDW Standard Deviation 46.8 fL (36.4-46.3); White Blood Count 8.62 K/uL (4.8-10.8)
--- NOTE | 2020-11-04 07:16 | Hospitalist Progress Note ---
Date of Service November 04, 2020 Assessment & Plan (1) CHF exacerbation: Ms. Logan is a 74-year-old female with a pmhx of CHF (grade I diastolic dysfunction), asthma, hypothyroidism (remote papillary thyroid cancer s/p resection), HTN, DM type II, and CSF leak (wheelchair bound) who presented for a 3-4 day h/o increasing shortness of breath, cough, leg swelling, O2 sat of 79% and pulmonary edema on imaging. Hypoxia most likely secondary to CHF exacerbation. tentative dispo today. will coordinate w/ case management and oxygen tank company. refer to HF clinic? outpt bp f/u (amlodipine decreased). Hypoxia, mild improvement Likely due to CHF exacerbation. No signs of infection or afib on cardiac monitoring which has since been discontinued -Per EMS was hypoxic on room air with O2 sats =79%. Was placed on 2L of O2. Does not wear O2 at baseline -No ABGs received at baseline -Chest x-ray showed mild interstitial thickening, pulmonary edema, and trace right pleural effusion -CT showed interstitial edema with subtle groundglass alveolar edema, small right pleural effusion and trace left pleural effusion -Blood cultures X2 negative and urine culture negative -NC today titrated down to 1L with O2 sat remaining at low 90s. -Encourage flutter device -Evaluated by RT 11/02 in anticipation of discharge--found that she will need 1L NC for home -Case Management today working to arrange viable option for her at home--informed medical team as below: -[employer] [facility] will deliver small tank for her to take home. Once she is discharged, nursing needs to call Case Management. Case Management will call [employer] [facility] [employer]. They will meet pt at home and set her up with an oxygen configuration that will work for her at home. -Likely DC tomorrow AM Acute diastolic CHF exacerbation, mild improvement but more diuresis needed -EKG showed sinus tachycardia, low voltage QRS. Was admitted to [facility] with telemetry but no afib or abnormal findings were found so transitioned to [facility] -Echo done on 08/2019 showed normal left ventricular systolic function, EF of 55-60%, aortic valve sclerosis mild, no aortic valvular stenosis, grade 1 diastolic dysfunction. Repeat Echo 10/30/2020 unchanged with mild tricuspid regurgitation. -Neg troponin X1 -Pt. given 40 mg IV Lasix in the ED, transitioned to 20 mg IV Lasix and then returned to 40 mg IV Lasix -Negative fluid balance -1236 ml (10/29-10/30)-->300 (10/30-10/31). Pt has weight reduction of 3kg since admission. Will need repeat weight. -Increased Lasix 40 mg IV qam (10/31)->Lasix 40 mg IV X2 (11/01) because of continued SOB, positive fluid balance and crackles on exam -Fluid balance negative 2.2L (11/03) -Continue Furosemide 40 mg IV daily--will continue on oral furosemide on DC -Potassium 3.6->3.0->3.4->3.6->3.6->3.8 (11/03). Pt. given 20 meq X1 today (11/03). Will reassess tomorrow. Goal is 4.0 given CHF. -Continue HH/DM diet, fluid restriction of 1500 mL. Reports that she does not eat diet high in salt. -Strict I/Os -CBC/BMP qAM HTN -Slightly elevated BP upon admission, 160/90 -BP remains elevated at 140-160s/70s -Continue losartan 100 mg HS - Amlodipine to be reduced to 5mg daily, as it may be contributing to edema Hypothyroidism s/p papillary thyroid carcinoma status post resection On 10/29 TSH 10.4 and FT4 1.27 -Continue levothyroxine 112 mcg daily which was a recent increase according to pt. -Recommend repeat TSH in 4 to 6 weeks Asthma -Albuterol 2puffs q6H -Hypoxia management above CSF leak -2010 hospitalized and led to coma for 4 to 5 days leading to being wheelchair bound. -PT/OT ordered Hyperglycemia due to type 2 diabetes mellitus - Hold metformin, cover with ISS with accuchecks ac/hs - A1C 9.4 from 05/17/20 - A1C 8.8 on 10/30/20 - Continue Levemir 30 U daily CODE: Full code FENGI: HH/DM diet, fluid restriction of 1500 mL DVT prophylaxis: Teds, scds, Lovenox SQ DISPO: Med Surg (2) CSF leak: (3) Vitamin D deficiency: (4) Hx of papillary thyroid carcinoma: (5) Pleurisy without effusion: (6) Hyperglycemia due to type 2 diabetes mellitus: (7) Hypothyroidism (acquired): - Cont levothyroxine 112 mcg daily for now, s/p papillary thyroid carcinoma status post resection. TSH elevated at 25 in 04/2020-repeat now and adjust levothyroxine as needed Followed up on results of TSH which was abnormal at 10.4, free T4 was normal at 1.27 Increase levothyroxine 125 mcg p.o. once daily started in the morning Recommend repeat TSH in 4 to 6 weeks (8) Hypoxia: 74-year-old female who presents with worsening shortness of breath and orthopnea over the last few days. She has noted 10 pain weight gain, lower extremity edema that is chronic but steadily worsening, and some abdominal distention. She does admit to eating high sodium foods at times, but does not drink excessive amounts of fluid. She denies any chest pain. She was hypoxic in the ER requiring oxygen. She was negative for Covid-19. Chest CT showed pleural effusions and pulmonary edema but no pneumonia. No PE 74-year-old female here with acute respiratory failure with hypoxia and pulmonary edema, worsening lower extremity edema Question diastolic CHF versus myxedema from elevated TSH Diuresis with IV Lasix Control blood pressure-consider decreasing amlodipine dose and adding on daily Lasix Wean off supplemental O2 as able to Check TSH -Admit to [facility] with telemetry -Initially was hypoxic on room air with O2 sats =79%, does not wear O2 at baseline, currently requiring 2 L to maintain sats in mid 90s -No ABG was obtained on admission -Thought that this is secondary to cardiac versus pulmonary issue, will treat this like a CHF exacerbation with pleural effusions as seen on CT of the chest -Hx of pleurisy but no chest pain here (9) HTN (hypertension): - Continue losartan 100 mg HS, amlodipine 7.5 mg daily for now but consider lowering dose and adding daily diuretic instead given lower extremity edema - Slightly elevated BP upon admission, 160/90 Admission and Anticipated Discharge Date Admission Date: October 29, 2020 Subjective is breathing jan rin chair. last night lungs a little achy overall breathing improved. feels ready for home today, only concern was the oxygen tank. on 1L currently no f/c, cp, abd pain Review of Systems Review of Systems: Constitutional: Denies fever, chills, weight change Eyes: Denies blurry vision, vision changes ENT: Denies sore throat, sinus pain Cardiovascular: Denies chest pain, palpitations Respiratory: Denies shortness of breath Gastrointestinal: Denies abdominal pain, nausea, vomiting, constipation, diarrhea Genitourinary: Denies urinary symptoms including dysuria Musculoskeletal: Denies weakness, muscle aches/pain, joint aches/pain Neurological: Denies headache, numbness, tingling, focal weakness Physical Exam Physical Exam: General: Grossly A&O. NAD. Cooperative. Sitting in chair. HEENT: Atraumatic, normocephalic. Pulm: Inspiratory crackles, worse at bases. No respiratory distress. Some tenderness to palpation at upper back during lung auscultation. Cardiac: RRR, -mrg. LE puffy, trace? edema Abdominal: Nontender, nondistended, soft. Results & Data Results & Data ([facility]) Vital Signs (Past 12 Hours) Vital Signs Temp Pulse Resp BP Pulse Ox 11/03/20 23:00 37.0 C 87 18 156/79 H 91 (1) Hyperglycemia due to type 2 diabetes mellitus Diabetes mellitus termination clerk insulin use: without termination clerk use Qualified Code(s): E11.65 - Type 2 diabetes mellitus with hyperglycemia (2) HTN (hypertension) Hypertension type: essential hypertension Qualified Code(s): I10 - Essential (primary) hypertension
[2020-11-04 07:28] LABS: BUN Creatinine Ratio 30.8 (10-20); Calcium 9.1 mg/dl (8.5-10.1); Creatinine Clr Calc Pharmacy 108.9 ml/min; Est GFR (African American) 106.7; Est GFR (Non-African American) 92.1; Potassium 3.6 mmol/L (3.5-5.1)
[2020-11-04] MEDS: FUROSEMIDE 40 MG in SYRINGE 0 ML IV SCH (08:57)
[2020-11-04] MEDS: ENOXAPARIN INJ 40 MG/0.4 ML SYR SQ SCH (08:58)
[2020-11-04] MEDS: INSULIN DETEMIR FLEXPEN/FLEX TOUCH 100 UNITS/ML 3ML SC SCH (08:58)
[2020-11-04] MEDS: INSULIN ASPART 100 UNITS/ML 3 ML PEN SC SCH ×2 (08:59→13:13)
--- NOTE | 2020-11-04 11:22 | Discharge Summary ---
Date of Service November 04, 2020 Admission HPI Per Admitting Provider Arcelia Dillon is a 74 yo F with PMHx of HTN, DM type II, hypothyroidism, remote papillary thyroid cancer s/p resection, craniotomy for CSF leak in ~2009 where she was hospitalized in [facility] and in a coma for 4-5 days. Afterwards was not able to walk again so is primarily wheelchair bound, however lifts herself to use bathroom/shower, and self propels herself. She is very independent individual who lives at home by herself, 5 years ago and her 3 children live in [place], [place] and [place]. She presents with acute shortness of breath which started last evening when goi ng to bed. Patient reports that she was unable to sleep lying flat. A similar presentation occurred was hospitalized about 1 year ago where she was diagnosed with pleurisy and had improvement in her sx with administration of steroids. She will also consider that she may have had pneumonia at that point in time and was treated with azithromycin. At this point time the patient denies any sore throat, runny nose, headache, congestion, known Covid positive persons. She has hired an 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 She noted that she had increased difficulty with getting her groceries into her house this past week. Patient's legs have had increased swelling bilaterally over the past few days, she feels her abdomen is also swollen and 10 lb weight gain, notices that her clothes are tight. She denies any fevers or sweats, admits to having intermittent chills in the past 24 hours. Patient also complains of a significantly depressed appetite in the past few days, she has been taking her insulin as scheduled, Levemir 30 units in the morning but has not had any hypoglycemic episodes. Patient takes her glucose as well as blood pressure and pulse every morning for her PCP as she has been instructed to do so at home. Patient was significantly concerned and that she had COVID-19 infection however that is negative here in the ER. Admission Exam Per Admitting Provider General: awake, alert, no apparent distress, + anxious Head: Normocephalic, atraumatic ENT: PERRL, EOMI, no pharyngeal exudate, mucous membranes moist Chest: On 2 L NC, faint crackles at bases bilaterally right >left , no expiratory or inspiratory wheeze, no rales Cardiac: Sinus tachy, HR = 95 at bedside, no murmur, no JVD, normal peripheral pulses, good capillary refill Abdominal: NABS x 4 quadrants, soft, nondistended, nontender to palpation, no rebound or guarding : pure wick urinary catheter hooked up to suction, out 700 mL while at bedside Extremities: +2 peripheral edema BLE, unable to lift legs up off the bed, right knee does not flex, no erythema, calfs nontender to palpation Psych: Normal mood, + anxious affect Neuro: AAO x 3, strength intact bilaterally and rated 5/5 in upper extremities, 2/5 BLE, speech is clear, no peripheral sensory deficits Principal Diagnosis CHF exacerbation Discharge Exam General: Grossly A&O. NAD. Cooperative. Sitting in chair. HEENT: Atraumatic, normocephalic. Pulm: Inspiratory crackles, worse at bases. No respiratory distress. Some tenderness to palpation at upper back during lung auscultation. Cardiac: RRR, -mrg. LE puffy, trace edema Abdominal: Nontender, nondistended, soft. Discharge Data Allergies Allergy/AdvReac Type Severity Reaction Status Date / Time aspirin Allergy Severe HIVES; Verified 10/29/20 11:56 DIFFICULTY BREATHING Penicillins Allergy Severe HIVES AND Verified 10/29/20 11:56 DIFFICULTY BREATHING Benzodiazepines Allergy Mild Unknown Verified 10/29/20 11:56 doxycycline Allergy Mild Unknown Verified 10/29/20 11:56 Sulfa (Sulfonamide Allergy Mild Unknown Verified 10/29/20 11:56 Antibiotics) aspartame Allergy Unknown Unknown Verified 10/29/20 11:56 diltiazem Allergy Unknown UNKNOWN Verified 10/29/20 11:56 REACTION epinephrine Allergy Unknown UNKNOWN Verified 10/29/20 11:56 REACTION melon Allergy Unknown Unknown Verified 10/30/20 11:57 moxifloxacin Allergy Unknown UNKNOWN Verified 10/29/20 11:56 REACTION nifedipine Allergy Unknown UNKNOWN Verified 10/29/20 11:56 REACTION simvastatin Allergy Unknown UNKNOWN Verified 10/29/20 11:56 REACTION PER PT vancomycin Allergy Unknown UNKNOWN Verified 10/29/20 11:56 REACTION colchicine AdvReac Intermediate Difficulty Verified 10/29/20 11:56 Breathing Consultations 10/29/20 15:16 ED Decision to Admit Stat 10/29/20 17:50 Consult Case Management - Discharge Planning Routine Ordered Studies 10/29/20 14:21 CT angio chest PE protocol Stat Hospital Course (1) CHF exacerbation: Ms. Logan is a 74-year-old female with a pmhx of CHF (grade I diastolic dysfunction), pleurisy, asthma, hypothyroidism (remote papillary thyroid cancer s/p resection), HTN, DM type II, and CSF leak (wheelchair bound) who presented for a 3-4 day h/o increasing shortness of breath, cough, leg swelling, O2 sat of 79% and pulmonary edema on imaging. Hypoxia most likely secondary to CHF exacerbation. Hypoxia, 2/2 acute diastolic CHF exacerbation - No signs of infection or afib on cardiac monitoring which has since been discontinued - Per EMS was hypoxic on room air with O2 sats =79%. Was placed on 2L of O2 and remained on 2L during majority of the admission, weaned to 1L prior to dispo - No ABGs received at baseline - Chest x-ray showed mild interstitial thickening, pulmonary edema, and trace right pleural effusion - CT showed interstitial edema with subtle groundglass alveolar edema, small right pleural effusion and trace left pleural effusion. the trace pleural effusions were thought not to be cause of patient's hypoxia. - Chest CTA not suggestive of PE. - Blood cultures X2 negative and urine culture negative - 11/02/20 evaluated by RT and determined to need 1L home O2. Acute diastolic CHF exacerbation - subjective moderate improvement in symptoms upon dispo, s/p diuresis. lung exam ~ unchanged. LE edema decreased slightly. Tolerated weaning to 1L from 2L O2. - EKG showed sinus tachycardia, low voltage QRS. - Echo 10/30/2020: Normal LV systolic function. No RWMA. EF 55-60%. Mild TR. Grade 1 LV diastolic dysfunction. No pericardial effusion. No sig change vs 08/22/19 study. - Neg troponin X1 - Pt. given 40 mg IV Lasix in the ED, transitioned to 20 mg IV Lasix and then returned to 40 mg IV Lasix, then altered btwn 40mg IV Lasix BID and 1x/day during the admission. - Fluid balance this admission (10/29/20-11/04/20): -2.5L (5.4L in 8L out). - Furosemide 40 mg PO daily upon dispo home (was not on this medication prior to this admission). 20 meq K PO supplementation. Sodium restriction (low sodium diet) of <2000mg daily, no more than 500mg in single setting. - BMP recheck ordered for 11/08/20, to check K levels and kidney function as proxy of whether diuresing too aggresively - referred to Alma Dasilva PA-C at heart failure clinic - PCP f/u in 1 wk HTN - Continue losartan 100 mg HS - Amlodipine to be reduced to 5mg daily, as it may be contributing to edema Hypothyroidism s/p papillary thyroid carcinoma status post resection - 10/29 TSH 10.4 and FT4 1.27 - thought to be noncontributory to patient's trace pleural effusions give the normal FT4 and the amount of TSH elevation - home levothyroxine dose 112 mcg daily which was a recent increase according to pt. - increased to 125 mcg daily this admission - discharged on 112 mcg previous home dose. please adjust/follow as outpatient. -Recommend repeat TSH in 4 to 6 weeks Asthma - provided Albuterol 2puffs q6H during this admission hx of CSF leak -2010 hospitalized and led to coma for 4 to 5 days leading to being wheelchair bound. Hyperglycemia due to type 2 diabetes mellitus - Held oral agents this admission and ordered SSI - A1C 9.4 from 05/17/20 - A1C 8.8 on 10/30/20 - resume home oral regimen upon dispo CODE: Full code (2) CSF leak: (3) Vitamin D deficiency: (4) Hx of papillary thyroid carcinoma: (5) Pleurisy without effusion: (6) Hyperglycemia due to type 2 diabetes mellitus: (7) Hypothyroidism (acquired): (8) Hypoxia: (9) HTN (hypertension): Total Time Total Time Spent Total Time Spent (In Minutes): <30 Discharge Plan Discharge Items Patient Disposition: Home - Home Health Services Reason For Visit: SHORTNESS OF BREATH, PLEURAL EFFUSION Discharge Diagnosis: Acute respiratory failure secondary to acute diastolic heart failure Activity: Resume your previous activity Non-emergency contact: Primary Care Provider Call non-emergency contact if: you have any medication questions and your symptoms worsen Follow-up/Referrals: Danny Bhatia MD [Primary Care Provider] - (Dr. Bhatia's office will call you to schedule a follow-up discharge appointment.) Alma Dasilva PA-C [Physician Ferryboat Operator] - 11/18/20 8:30 am () Diet: Low Sodium (2gm) Addtl Attending Provider Instructions: You were admitted to [facility] due to shortness of breath and fluid retention thought to be related to diastolic congestive heart failure. While admitted you were treated with a diuretic, Furosemide, to help clear fluid out from your lungs and help your breathing. You progressed to the point that you were deemed ready for discharge. However, you will need to have supplemental oxygen (1L) going forward, at least temporarily. You will also continue taking Lasix 40 mg orally every day. Additionally you will take potassium packets (1 packet a day) to prevent you developing low potassium from the Lasix. As you had mentioned this tends to cause constipation for you, we suggest that you take Senokot daily to help prevent this. A prescription has been sent for you to your preferred pharmacy. The prescriptions have been sent to [facility] at [facility]. Please refer to your primary care doctor for refills. I have ordered labwork for a basic metabolic panel check on 11/08/[address] [place] [id number] laboratory. We also recommend that you lower your amlodipine dose to 5mg daily, as this medication can cause edema/fluid buildup in the body. Please follow up with your primary care provider within the next week to discuss your hospitalization and any changes that had to be made to your treatment regimen. You will receive a call when the appointment has been made. Call them if you do not hear back. A referral has been made to the heart failure clinic w/ Alma Dasilva PA-C. She will be able to help optimize your medications, nutrition, and weight for the heart failure. Thank you for allowing us to participate in your care. If you develop any new or worsening symptoms including fever, chills, sweats, chest pain, chest pressure, difficulty breathing, uncontrolled nausea/vomiting, rash, wheezing, passing out or nearly passing out, bleeding, black/bloody bowel movements, or other new or concerning symptoms please call your primary care physician, or call 911 for re-evaluation in the emergency department if you are very concerned. Pending Studies at Discharge: No Stand-Alone Forms: My ilustrum, Smoking Cessation Medications and [place] Order Prescriptions: New furosemide 40 mg tablet 40 mg PO QAM Qty: 30 RF: 0 sennosides [Senokot] 8.6 mg tablet 17.2 mg PO DAILY Qty: 60 RF: 0 potassium chloride 20 mEq packet 20 meq PO DAILY Qty: 30 RF: 2 Continued losartan [Cozaar] 100 mg tablet 100 mg PO HS RF: 0 albuterol sulfate 90 mcg/actuation Hfa Aerosol Inhaler 2 puff INHALATION Q6H PRN (Reason: Shortness Of Breath Or Wheezing) RF: 0 acetaminophen [Tylenol Extra Strength] 500 mg Tablet 500 mg PO Q6H PRN (Reason: Pain) RF: 0 Levemir U-100 Insulin 100 unit/mL Solution 30 unit SUBCUT DAILY RF: 0 metformin [Glucophage] 500 mg tablet 500 mg PO TIDM RF: 0 diazepam [Valium] 5 mg tablet 5 mg PO HS PRN (Reason: sleep) Qty: 7 RF: 0 levothyroxine 112 mcg tablet 112 mcg PO DAILY RF: 0 Changed amlodipine 2.5 mg tablet 5 mg PO DAILY Qty: 0 RF: 0 Discharge Orders: Discharge Order (Routine); Ordered 11/04/20 Ordered By: Israel Tapia/Other Patient Handouts: Managing Type 2 Diabetes, Coping with Heart Failure Admission Data Admit Date/Time: 10/29/20 16:07 Attending Provider: Marcos France Admit Provider: Adrianna Jensen Primary Care Provider: Danny Bhatia Other Providers: Adrianna Jensen ; Israel Devine ; Gabby Pennington ; [place] Other Interventions: Discharge Summary Assessment (RN) Last Done: 11/04/20 12:46 Supervising Physician Co-Signing Physician Notes I personally examined the patient and verified all dickerson points of history and exam, discussed case, and agree with decision making with Dr Devine. feeling better breathing feeling better wants to go home, O2 arranged. discussed sodium - she will have caregiver help review labels with her. she's not aware of where she's getting sodium but quite open to the idea that she is taking in more than she realizes somewhere - and wants to make changes so that she can have CHF under best control with mminimal meds if possible vitals noted nad heent mmm breathing unlabored no accessory msucles good effort skin no rashes no pallor or icterus acute (probably on chronic although track record mostly acute) diastolic chf with acute hypoxic respiratory failure -stable for home -ongoing lasix for now - close f/u PCP and CHF clinic to titrate meds as possible - pt's goal understandably is to be on minimal diuretics - weighed this against breathing difficulties with her though - she expressed understanding -stable for home, ongoing med management ongoing O2 support labs later this week ongoing med titrations otherwise as above Resident Activity Tracking Resident Involvement: Resident Care Provided Care Provided: Adult Hospital Medicine
[2020-11-04] MEDS: amLODIPine BESYLATE 5 MG TAB PO SCH (13:13)
--- NOTE | 2020-11-04 17:44 | Billing Data ---
Date of Service November 04, 2020 Coding Level of Care Code D/C Day Management <30 mins
== END 2020-11-04 13:45 | disposition home health service (06) | DRG 291 ==
LOC: ED 11:08 → SUATTDRO 16:07 → 2N 16:07

== ENCOUNTER 2021-03-30 20:34 | Inpatient (IN) ==
--- NOTE | 2021-03-30 21:02 | Emergency Department Note ---
Impression & Plan Fall, Closed hip fracture, Contusion of elbow, Acute shoulder pain ED Provider Note NAME: LACI SOLITARIO AGE: 75 SEX: F : 1945 ARRIVES VIA: Ambulance INFORMANT: Patient ED PROVIDER(S): Marcos Villanueva DO CHIEF COMPLAINT: Mechanical fall HPI: Patient is a 75-year-old female who presents ER following mechanical fall. She was getting up in her dress get caught on her wheelchair and she fell backwards and hit her head. She complaining of head pain. No neck pain chest pain belly pain. She is complaining of right shoulder and elbow pain. She also has right hip pain. The worst the pain is in her right hip. She denies any tingling or numbness. No weakness. No other exacerbating or remitting factors. She does not want anything for pain. Pain is worse with movement. ROS: See above HPI for pertinent positives & negatives. A total of 10 systems reviewed and were otherwise negative. PAST MEDICAL HISTORY:See Below PAST SURGICAL HISTORY:See Below FAMILY HISTORY:See Below SOCIAL HISTORY:See Below HOME MEDICATIONS:See Below ALLERGIES:See Below VITALS:See Below PHYSICAL EXAMINATION: GENERAL: Sitting up in bed in moderate distress complaining of right hip pain HEAD: normal cephalic, atraumatic EYE EXAM: normal conjunctiva, PERRL and EOM's grossly intact OROPHARYNX: no exudate, no erythema, lips, buccal mucosa, and tongue normal and mucous membranes are moist NECK: supple, no nuchal rigidity, no adenopathy, non-tender CHEST: stable to compression anteriorly and posteriorly LUNGS: clear to auscultation. Normal chest wall mechanics HEART: no murmurs, S1 normal and S2 normal ABDOMEN: abdomen soft, non-tender, normo-active bowel sounds, no masses, no rebound or guarding. PELVIS: stable to compression anteriorly and posteriorly BACK: Back is symmetrical on inspection and there is no deformity, no midline tenderness, no CVA tenderness. UPPER EXTREMITIES: No tenderness throughout the entire left upper extremity. Tenderness over the right proximal humerus with range of motion. No obvious deformity. No mid humerus tenderness. Tenderness over the right elbow with movement. Skin is intact. Majority of pain is over the olecranon process. No tenderness throughout the remainder of the forearm or hand. LOWER EXTREMITIES: No pain throughout the entire left lower extremity. Tenderness over the right hip with range of motion. NEURO EXAM: Normal sensorium, cranial nerves II-XII grossly intact, normal speech. GCS: 15. MEDICAL DECISION MAKING: Patient is a 75-year-old female who presents the ER following a mechanical fall. IV was dosed blood work was done. Labs show leukocytosis 13,000. No significant anemia. BMP with LFTs bilirubin was unremarkable. CT of the head and neck was unremarkable. X-rays of the right shoulder, elbow were unremarkable. X-ray of the hip and pelvis showed a likely subcapital fracture and CT confirmed this. Patient was updated bedside. She normally gets around via wheelchair. She is not normally putting weight on her right lower extremity. She is having moderate amount of pain. Discussed with [facility] that she has followed up with them before in the past. Discussed with hospitalist for admission and further observation and she will need to talk/discussed with orthopedics and may need PT OT and additional assistance/placement. Triage Nursing notes reviewed. Limited review of prior medical records performed Vital Signs: reviewed and remarkable for HTN and tachy Differential diagnosis: Differential diagnoses include major intracranial, cervical, spinal, thoracic, abdominal, pelvic and neurologic injury. Fracture, contusion, sprain, strain, laceration, abrasions included as well. ER treatment provided: See below Diagnostics interpreted by me: ECG: none Cardiac Monitoring: An order was placed for continuous cardiac monitoring. The monitor shows a rate of 95 with sinus rhythm. Laboratory studies: As stated above and show below. Imaging studies: 3 views of the right shoulder show no acute fracture dislocation X-rays of the right elbow 3 views per my read showed no acute fracture dislocation X-rays of the right hip and pelvis show a questionable fracture subcapital region CT head, cervical spine were negative CT right hip shows subcapital fracture. Consultation(s): Discussed with Nathan Mckeon from [facility] Discussed with Dr. Kenny Coronado for further evaluation Procedures: none Critical Care: None Past Med/Surg History Medical History (Updated 03/30/21 @ 23:17 by Marcos Villanueva DO) Acute diastolic (congestive) heart failure Asthma Benign essential HTN Cardiac arrest Chest pain Diabetes type 2, controlled Diastolic heart failure Dyslipidemia Financial difficulties Gait abnormality History of ectopic History of seizures as a child HTN (hypertension) Hx of pleurisy Hx of thyroid cancer Hypothyroidism in adult Hypothyroidism, postablative Lower extremity edema Mild intermittent asthma Pleurisy without effusion Right knee DJD Shakiness Type 2 diabetes mellitus Type 2 diabetes mellitus, uncontrolled Wheelchair bound Surgical History History of D&C Hx of brain surgery 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) Hx of section Hx of thyroidectomy Family History Other TIA (transient ischemic attack) Social History Smoking Status: Never smoker Hx Alcohol Use: No Hx Substance Use: No Preferred Language: Comoran Communication Ability: Effective [employer] Services Team Leader Required: No Beliefs That Will Affect Care: None marital status: / Current Living Situation: Alone current occupational status: retired Feels Safe at Home: Yes Assistive Devices: Walker and Wheelchair Allergies Allergies Allergy/AdvReac Type Severity Reaction Status Date / Time aspirin Allergy Severe HIVES; Verified 03/30/21 21:43 DIFFICULTY BREATHING Penicillins Allergy Severe HIVES AND Verified 03/30/21 21:43 DIFFICULTY BREATHING Benzodiazepines Allergy Mild Unknown Verified 03/30/21 21:43 doxycycline Allergy Mild Unknown Verified 03/30/21 21:43 Sulfa (Sulfonamide Allergy Mild Unknown Verified 03/30/21 21:43 Antibiotics) aspartame Allergy Unknown Unknown Verified 03/30/21 21:43 diltiazem Allergy Unknown UNKNOWN Verified 03/30/21 21:43 REACTION epinephrine Allergy Unknown UNKNOWN Verified 03/30/21 21:43 REACTION melon Allergy Unknown Unknown Verified 03/30/21 21:43 moxifloxacin Allergy Unknown UNKNOWN Verified 03/30/21 21:43 REACTION nifedipine Allergy Unknown UNKNOWN Verified 03/30/21 21:43 REACTION simvastatin Allergy Unknown UNKNOWN Verified 03/30/21 21:43 REACTION PER PT vancomycin Allergy Unknown UNKNOWN Verified 03/30/21 21:43 REACTION colchicine AdvReac Intermediate Difficulty Verified 03/30/21 21:43 Breathing Home Meds Home Medications Medication Instructions Recorded Confirmed albuterol sulfate 2 puff INHALATION Q6H PRN 08/21/19 03/30/21 losartan [Cozaar] 100 mg PO HS 08/21/19 03/30/21 Levemir U-100 Insulin 30 unit SUBCUT QAM 05/16/20 03/30/21 multivitamin 1 tab PO QAM 11/27/20 03/30/21 amlodipine 2.5 mg PO QDL 12/16/20 03/30/21 metformin 500 mg tablet 1,000 mg PO BIDM tab 12/30/20 03/30/21 inhalational spacing device #1 ea 01/03/21 03/25/21 lancets 33 gauge #100 ea 01/03/21 03/25/21 pen needle, diabetic 32 gauge x #50 ea 01/03/21 03/25/21 1/4" levothyroxine 125 mcg PO DAILYBB 02/21/21 03/30/21 amlodipine 5 mg PO QDL 03/30/21 03/30/21 Previous Rx's Medication Instructions Recorded blood sugar diagnostic #100 ea 12/05/20 furosemide 40 mg tablet 40 mg PO QAM #30 tab 12/13/20 potassium chloride 20 mEq oral 20 meq PO DAILY #30 ea 01/30/21 packet Results & Data (ED) Vital Signs Vital Signs - 24 hr 03/30/21 21:03 03/30/21 21:21 03/30/21 21:44 Temperature 36.6 C Temperature Source Oral Pulse Rate 105 H 107 H Pulse Rate [Finger] 99 H Pulse Rhythm Regular Regular Pulse Strength Normal Respiratory Rate 18 18 22 Respiratory Effort / Characteristics Non-Labored Respiratory Depth Normal Blood Pressure 209/100 H Blood Pressure [Left Arm] 185/99 H Blood Pressure Mean 136 Blood Pressure Mean [Left Arm] 127 Blood Pressure Position Sitting Pulse Oximetry 87 L 90 90 Oxygen Delivery Method Room Air Room Air Room Air Sepsis Recent Fever Within 48 Hours No Sepsis New/Unexplained Change in Mental Status No Sepsis Action Taken by Nursing No Action Required Laboratory Data Result diagrams: 03/30/21 21:40 03/30/21 21:40 Lab Results 03/30/21 03/30/21 Range/Units 21:40 21:40 WBC 13.00 H (4.8-10.8) K/uL RBC 5.21 (4.2-5.4) M/uL Hgb 14.7 (12.0-16.0) g/dL Hct 45.1 (37-47) % MCV 86.6 (80-100) fL MCH 28.2 (25-34) pg MCHC 32.6 (32-36) g/dL RDW Std Deviation 43.7 (36.4-46.3) fL RDW Coeff of Smith 13.7 (11.5-14.5) % Plt Count 305 (130-400) K/uL MPV 9.7 (7.4-10.4) fL Immature Gran % (Auto) 0.5 % Neut % (Auto) 81.2 % Lymph % (Auto) 11.5 % Eagle % (Auto) 5.7 % Eos % (Auto) 0.9 % Baso % (Auto) 0.2 % Neut # (Auto) 10.55 H (1.4-6.5) K/uL Lymph # (Auto) 1.50 (1.2-3.4) K/uL Eagle # (Auto) 0.74 H (0.11-0.59) K/uL Eos # (Auto) 0.12 (0-0.5) K/uL Baso # (Auto) 0.02 (0-0.2) K/uL Immature Gran # (Auto) 0.07 H (0.00-0.02) K/uL Sodium 141 (136-145) mmol/L Potassium 3.5 (3.5-5.1) mmol/L Chloride 103 (98-107) mmol/L Carbon Dioxide 28 (21-32) mmol/L Anion Gap 10.0 (3-11) BUN 15 (7-18) mg/dl Creatinine 0.52 L (0.6-1.2) mg/dl Est Cr Clr Drug Dosing 117.4 ml/min Est GFR ( Amer) 109.9 ml/min Est GFR (Non-Af Amer) 94.8 ml/min BUN/Creatinine Ratio 28.4 H (10-20) Glucose 138 H (70-99) mg/dl Calcium 9.4 (8.5-10.1) mg/dl Total Bilirubin 0.5 (0.2-1) mg/dl AST 16 (15-37) U/L ALT 19 (12-78) U/L Alkaline Phosphatase 103 (45-117) U/L Total Protein 8.5 H (6.4-8.2) gm/dl Albumin 3.7 (3.4-5.0) gm/dl Globulin 4.8 H (2.5-4.0) gm/dl Albumin/Globulin Ratio 0.8 L (0.9-2) Discharge Plan Visit Data Chief Complaint: Fall Stated Complaint: FALL ED Provider: Marcos Villanueva Discharge Problem: Fall, Closed hip fracture, Contusion of elbow, Acute shoulder pain Forms Stand Alone Forms: [facility] Prescriptions Prescriptions: No Action (DME) OneTouch Verio test strips Strip See Rx Instructions .ROUTE .MEDSUPPLY Qty: 100 RF: 3 furosemide 40 mg tablet 40 mg PO QAM Qty: 30 RF: 11 (DME) Aerochamber Plus Flow-Vu Spacer See Rx Instructions .ROUTE .MEDSUPPLY Qty: 1 RF: 0 (DME) lancets [OneTouch Delica Lancets] 33 gauge misc See Rx Instructions .ROUTE .MEDSUPPLY Qty: 100 RF: 0 (DME) pen needle, diabetic [BD Ultra-Fine Micro Pen Needle] 32 gauge x 1/4" needle See Rx Instructions .ROUTE .MEDSUPPLY Qty: 50 RF: 0 potassium chloride 20 mEq packet 20 meq PO DAILY Qty: 30 RF: 2 multivitamin [Daily Multi-Vitamin] Tablet 1 tab PO QAM RF: 0 losartan [Cozaar] 100 mg tablet 100 mg PO HS RF: 0 albuterol sulfate 90 mcg/actuation Hfa Aerosol Inhaler 2 puff INHALATION Q6H PRN (Reason: Shortness Of Breath Or Wheezing) RF: 0 Levemir U-100 Insulin 100 unit/mL Solution 30 unit SUBCUT QAM RF: 0 metformin [Glucophage] 500 mg tablet 1,000 mg PO BIDM RF: 0 amlodipine 2.5 mg tablet 2.5 mg PO QDL RF: 0 levothyroxine 125 mcg tablet 125 mcg PO DAILYBB RF: 0 amlodipine 5 mg tablet 5 mg PO QDL RF: 0 Discharge Problem: Fall Qualifiers: Encounter type: initial encounter Qualified Code(s): W19.XXXA - Unspecified fall, initial encounter Closed hip fracture Qualifiers: Encounter type: initial encounter Laterality: right Qualified Code(s): S72.001A - Fracture of unspecified part of neck of right femur, initial encounter for closed fracture Contusion of elbow Qualifiers: Encounter type: initial encounter Laterality: right Qualified Code(s): S50.01XA - Contusion of right elbow, initial encounter Acute shoulder pain Qualifiers: Laterality: right Qualified Code(s): M25.511 - Pain in right shoulder
[2021-03-30 21:56] LABS: Basophils # (auto) 0.02 K/uL (0-0.2); Basophils % (auto) 0.2 %; Eosinophils # (auto) 0.12 K/uL (0-0.5); Eosinophils % (auto) 0.9 %; Hematocrit (blood only) 45.1 % (37-47); Hemoglobin 14.7 g/dL (12.0-16.0); Immature Granulocytes # (auto) 0.07 K/uL (0.00-0.02); Immature Granulocytes % (auto) 0.5 %; Lymphocytes % (auto) 11.5 %; Mean Corpuscular Hemoglobin 28.2 pg (25-34); Mean Corpuscular Hgb Conc 32.6 g/dL (32-36); Mean Corpuscular Volume 86.6 fL (80-100); Mean Platelet Volume 9.7 fL (7.4-10.4); Monocytes # (auto) 0.74 K/uL (0.11-0.59); Monocytes % (auto) 5.7 %; Neutrophils # (auto) 10.55 K/uL (1.4-6.5); Neutrophils % (auto) 81.2 %; Platelet Count 305 K/uL (130-400); RDW Coefficient of Variation 13.7 % (11.5-14.5); RDW Standard Deviation 43.7 fL (36.4-46.3); Red Blood Count 5.21 M/uL (4.2-5.4)
[2021-03-30 22:15] LABS: Albumin Level 3.7 gm/dl (3.4-5.0); BUN Creatinine Ratio 28.4 (10-20); Calcium 9.4 mg/dl (8.5-10.1); Creatinine Clr Calc Pharmacy 117.4 ml/min; Est GFR (African American) 109.9 ml/min; Est GFR (Non-African American) 94.8 ml/min; Potassium 3.5 mmol/L (3.5-5.1)
[2021-03-30 22:18] LABS: Albumin Globulin Ratio 0.8 (0.9-2); Bilirubin,Total 0.5 mg/dl (0.2-1); Globulin 4.8 gm/dl (2.5-4.0); Total Protein 8.5 gm/dl (6.4-8.2)
[2021-03-30] MEDS ORDERED: MoRPHine SULFATE 4 MG/ML 1 ML CARP\\VIAL IV PRN (22:32)
[2021-03-30] MEDS ORDERED: MoRPHine SULFATE 2 MG/ML CARP IV PRN (22:32)
--- NOTE | 2021-03-30 23:38 | History & Physical Report ---
Date of Service March 30, 2021 Assessment & Plan (1) Closed right hip fracture: Closed right hip fracture status post mechanical fall- Geriatric hip fracture protocol order set N.p.o. after midnight Famotidine 20 mg IV every 12 hours Acetaminophen 1 g IV every 8 hours as needed mild pain or fever Morphine sulfate 2 mg IV every 3 hours as needed moderate pain Morphine sulfate 4 mg IV every 3 hours as needed severe pain Tramadol 50 mg p.o. every 6 hours as needed moderate pain Tramadol 100 mg p.o. every 6 hours as needed severe pain Zofran 4 mg IV every 6 hours as needed consult orthopedic surgery Present on Admission?: Yes (2) Fall: Mechanical fall as she was dressed got tangled up as she was getting up out of her wheelchair. Present on Admission?: Yes (3) Diabetes type 2, controlled: Decrease Levemir from 30 to 10 units subcu every morning Placed on Accu-Cheks before meals and at bedtime with NovoLog coverage per scale Check hemoglobin A1c Hold Metformin Present on Admission?: Yes (4) Hypothyroidism, postablative: Continue levothyroxine 125 mcg daily Present on Admission?: Yes (5) HTN (hypertension): Continue amlodipine and losartan with hold parameters Hold furosemide Present on Admission?: Yes (6) Asthma: DuoNebs every 2 hours as needed Present on Admission?: Yes History of Present Illness Chief Complaint: The patient presents to the emergency department with complaint of right hip and right upper extremity pain after a fall out of her wheelchair. Primary Care Provider: Amada Pyle DO The patient is a 75-year-old female with a past medical history including asthma, diabetes mellitus type 2, post ablative hypothyroidism, hypertension, CHF, and wheelchair-bound. She reports that she was getting up out of her wheelchair, and somehow her dress got caught in a wheelchair, she fell backwards, hitting her head, and right side of her body. She developed immediate discomfort in the right hip in particular, and was brought to the emergency department for assessment. Allergies Allergy/AdvReac Type Severity Reaction Status Date / Time aspirin Allergy Severe HIVES; Verified 03/30/21 21:43 DIFFICULTY BREATHING Penicillins Allergy Severe HIVES AND Verified 03/30/21 21:43 DIFFICULTY BREATHING Benzodiazepines Allergy Mild Unknown Verified 03/30/21 21:43 doxycycline Allergy Mild Unknown Verified 03/30/21 21:43 Sulfa (Sulfonamide Allergy Mild Unknown Verified 03/30/21 21:43 Antibiotics) aspartame Allergy Unknown Unknown Verified 03/30/21 21:43 diltiazem Allergy Unknown UNKNOWN Verified 03/30/21 21:43 REACTION epinephrine Allergy Unknown UNKNOWN Verified 03/30/21 21:43 REACTION melon Allergy Unknown Unknown Verified 03/30/21 21:43 moxifloxacin Allergy Unknown UNKNOWN Verified 03/30/21 21:43 REACTION nifedipine Allergy Unknown UNKNOWN Verified 03/30/21 21:43 REACTION simvastatin Allergy Unknown UNKNOWN Verified 03/30/21 21:43 REACTION PER PT vancomycin Allergy Unknown UNKNOWN Verified 03/30/21 21:43 REACTION colchicine AdvReac Intermediate Difficulty Verified 03/30/21 21:43 Breathing Home Medications Medication Instructions Recorded Confirmed Type albuterol sulfate 2 puff INHALATION Q6H PRN 08/21/19 03/30/21 History losartan [Cozaar] 100 mg PO HS 08/21/19 03/30/21 History Levemir U-100 Insulin 30 unit SUBCUT QAM 05/16/20 03/30/21 History multivitamin 1 tab PO QAM 11/27/20 03/30/21 History blood sugar diagnostic #100 ea 12/05/20 03/25/21 Rx furosemide 40 mg tablet 40 mg PO QAM #30 tab 12/13/20 03/30/21 Rx amlodipine 2.5 mg PO QDL 12/16/20 03/30/21 History metformin 500 mg tablet 1,000 mg PO BIDM tab 12/30/20 03/30/21 History inhalational spacing device #1 ea 01/03/21 03/25/21 History lancets 33 gauge #100 ea 01/03/21 03/25/21 History pen needle, diabetic 32 gauge x #50 ea 01/03/21 03/25/21 History 1/4" potassium chloride 20 mEq oral 20 meq PO DAILY #30 ea 01/30/21 03/30/21 Rx packet levothyroxine 125 mcg PO DAILYBB 02/21/21 03/30/21 History amlodipine 5 mg PO QDL 03/30/21 03/30/21 History Past Med/Surg History Medical History (Updated 03/31/21 @ 02:31 by Kenny Farfan MD) Acute diastolic (congestive) heart failure Asthma Benign essential HTN Cardiac arrest Chest pain Diabetes type 2, controlled Diastolic heart failure Dyslipidemia Financial difficulties Gait abnormality History of ectopic History of seizures as a child HTN (hypertension) Hx of pleurisy Hx of thyroid cancer Hypothyroidism in adult Hypothyroidism, postablative Lower extremity edema Mild intermittent asthma Pleurisy without effusion Right knee DJD Shakiness Type 2 diabetes mellitus Type 2 diabetes mellitus, uncontrolled Wheelchair bound Surgical History History of D&C Hx of brain surgery 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) Hx of section Hx of thyroidectomy Family History Other TIA (transient ischemic attack) Social History Smoking Status: Never smoker Hx Alcohol Use: No Hx Substance Use: No Preferred Language: Maltese Communication Ability: Effective Asbestos Remover Required: No Beliefs That Will Affect Care: None marital status: / Current Living Situation: Alone current occupational status: retired Feels Safe at Home: Yes Assistive Devices: Walker and Wheelchair Review of Systems Review of Systems: The patient denies chest pain, palpitations, shortness of breath, dyspnea on exertion, cough, sore throat, fevers, chills, sweats, nausea, vomiting, diarrhea , constipation, abdominal pain, pelvic pain, blood in urine or stool, dysuria, urinary frequency or urgency, lightheadedness, dizziness, headache, memory loss, loss of consciousness, rash, abnormal bruising or bleeding, focal weakness, numbness or tingling in left arm or leg, generalized arthralgias or myalgias, back or neck pain, or night sweats. The review of systems is otherwise negative other than for that already noted above, and at least 10 systems have been reviewed. Physical Exam Physical Exam: The patient is awake, alert and oriented 3, well developed and well nourished, normocephalic and atraumatic, lying in bed and in mild to moderate distress secondary to right hip pain HEENT--PERRL, EOMI, mucous membranes and oropharynx normal Neck--supple. No JVD. No bruits. Thyroid normal, trachea midline, no adenopathy. Heart--normal S1 and S2. No murmurs, rubs or gallops. Lungs--clear bilaterally, no respiratory distress, no accessory muscle use. Abdomen--normal bowel sounds and soft. Nontender. Nondistended Extremities--no cyanosis or clubbing. No edema. Dermatologic--normal skin turgor, normal color, no abnormal lymph nodes, no rash. Neurologic--cranial nerves II through XII grossly intact Rheumatologic--limited exam due to severe arthritis and pain Psychiatric--normal affect. Results & Data Results & Data ([facility]) Vital Signs (Past 12 Hours) Vital Signs Temp Pulse Pulse Resp BP BP Pulse Ox 03/30/21 21:44 99 H 22 185/99 H 90 03/30/21 21:21 107 H 18 90 03/30/21 21:03 97.9 F 105 H 18 209/100 H 87 L Laboratory Results Laboratory Results WBC 13.00 K/uL (4.8-10.8) H 03/30/21 21:40 RBC 5.21 M/uL (4.2-5.4) 03/30/21 21:40 Hgb 14.7 g/dL (12.0-16.0) 03/30/21 21:40 Hct 45.1 % (37-47) 03/30/21 21:40 MCV 86.6 fL (80-100) 03/30/21 21:40 MCH 28.2 pg (25-34) 03/30/21 21:40 MCHC 32.6 g/dL (32-36) 03/30/21 21:40 RDW Std Deviation 43.7 fL (36.4-46.3) 03/30/21 21:40 RDW Coeff of Smith 13.7 % (11.5-14.5) 03/30/21 21:40 Plt Count 305 K/uL (130-400) 03/30/21 21:40 MPV 9.7 fL (7.4-10.4) 03/30/21 21:40 Immature Gran % (Auto) 0.5 % 03/30/21 21:40 Neut % (Auto) 81.2 % 03/30/21 21:40 Lymph % (Auto) 11.5 % 03/30/21 21:40 Mcpherson % (Auto) 5.7 % 03/30/21 21:40 Eos % (Auto) 0.9 % 03/30/21 21:40 Baso % (Auto) 0.2 % 03/30/21 21:40 Neut # (Auto) 10.55 K/uL (1.4-6.5) H 03/30/21 21:40 Lymph # (Auto) 1.50 K/uL (1.2-3.4) 03/30/21 21:40 Mcpherson # (Auto) 0.74 K/uL (0.11-0.59) H 03/30/21 21:40 Eos # (Auto) 0.12 K/uL (0-0.5) 03/30/21 21:40 Baso # (Auto) 0.02 K/uL (0-0.2) 03/30/21 21:40 Immature Gran # (Auto) 0.07 K/uL (0.00-0.02) H 03/30/21 21:40 Sodium 141 mmol/L (136-145) 03/30/21 21:40 Potassium 3.5 mmol/L (3.5-5.1) 03/30/21 21:40 Chloride 103 mmol/L (98-107) 03/30/21 21:40 Carbon Dioxide 28 mmol/L (21-32) 03/30/21 21:40 Anion Gap 10.0 (3-11) 03/30/21 21:40 BUN 15 mg/dl (7-18) 03/30/21 21:40 Creatinine 0.52 mg/dl (0.6-1.2) L 03/30/21 21:40 Est Cr Clr Drug Dosing 117.4 ml/min 03/30/21 21:40 Est GFR ( Amer) 109.9 ml/min 03/30/21 21:40 Est GFR (Non-Af Amer) 94.8 ml/min 03/30/21 21:40 BUN/Creatinine Ratio 28.4 (10-20) H 03/30/21 21:40 Glucose 138 mg/dl (70-99) H 03/30/21 21:40 POC Glucose 145 mg/dl (70-99) H 03/30/21 23:11 Calcium 9.4 mg/dl (8.5-10.1) 03/30/21 21:40 Total Bilirubin 0.5 mg/dl (0.2-1) 03/30/21 21:40 AST 16 U/L (15-37) 03/30/21 21:40 ALT 19 U/L (12-78) 03/30/21 21:40 Alkaline Phosphatase 103 U/L (45-117) 03/30/21 21:40 Total Protein 8.5 gm/dl (6.4-8.2) H 03/30/21 21:40 Albumin 3.7 gm/dl (3.4-5.0) 03/30/21 21:40 Globulin 4.8 gm/dl (2.5-4.0) H 03/30/21 21:40 Albumin/Globulin Ratio 0.8 (0.9-2) L 03/30/21 21:40 COVID-19 Eval Order Covid19 at [facility] 03/31/21 00:07 SARS-CoV-2 (PCR) NEGATIVE (Negative) 03/31/21 00:07 Diagnostic Findings [facility] Patient: LACI SOLITARIO (Female) : 49 Status: ER Date: 03/30/21 22:04 Room #: History: FALL, PT HIT HEAD NECK PAIN, RT HIP PAIN EK/AW Slices: 61 Priors: Tech: Michelet Richard @ [phone] Exams: CT HEAD Contrast: Accession Numbers: [id number] Preliminary Findings Only See Final Report For Complete Findings CT HEAD: Comparison to December 16, 2020. There is an old left temporal craniotomy. No skull fracture or scalp hematoma is seen. The paranasal sinuses and mastoid air cells are normal. Mild periventricular white matter low density involving the brain consistent with chronic small vessel disease. There is a small area of encephalomalacia in the left temporal lobe deep to the surgical site, unchanged. There is no evidence of acute large vessel infarct or intracranial hemorrhage. Radiologist: Moiz So MD Study ready at 22:12 and initial results transmitted at 22:26 *This report constitutes a preliminary interpretation only. Non-acute findings felt to be unrelated to the clinical presentation may not be discussed in this report. The study will be interpreted and a final report will be generated by the local Radiologist the following shift. To reach the hospital radiology department call [phone]. If a discrepancy is found between the preliminary and final interpretations of this study, please notify us via our Client Portal at [email or web address].You can also fax this report with a description of the discrepancy, or include the final report, to our daytime fax number [phone].If faxing, please indicate the severity of discrepancy using one of the following categories: [ ] 1 - Agree/Informational [ ] 2 - Unlikely to Affect Management [ ] 3 - Possible Eventual Change of Management [ ] 4 - Probable Immediate Change of Management For all other patient related information, please fax us at [phone]. [id number] [facility] Patient: LACI SOLITARIO (Female) : 49 Status: ER Date: 03/30/21 22:05 Room #: History: FALL, PT HIT HEAD NECK PAIN, RT HIP PAIN EK/AW Slices: 794 Priors: Tech: Michelet Richard @ [phone] Exams: CT C SPINE Contrast: Accession Numbers: [id number] Preliminary Findings Only See Final Report For Complete Findings CT C SPINE: Moderate narrowing and osteophytosis of the laser dental joint. The odontoid process is intact. The prevertebral soft tissues are normal. Mild to moderate multilevel loss of disc space height and disc marginal osteophytes throughout the entire cervical spine. There is mild multilevel facet sclerosis and osteophytosis. No acute cervical spine fracture or subluxation is seen. Soft tissue windows show no significant spinal stenosis. There is mild carotid bifurcation calcification. No mass or lymphadenopathy is identified. Radiologist: Moiz So MD Study ready at 22:43 and initial results transmitted at 22:47 *This report constitutes a preliminary interpretation only. Non-acute findings felt to be unrelated to the clinical presentation may not be discussed in this report. The study will be interpreted and a final report will be generated by the local Radiologist the following shift. To reach the hospital radiology department call [phone]. If a discrepancy is found between the preliminary and final interpretations of this study, please notify us via our Client Portal at [email or web address].You can also fax this report with a description of the discrepancy, or include the final report, to our daytime fax number [phone].If faxing, please indicate the severity of discrepancy using one of the following categories: [ ] 1 - Agree/Informational [ ] 2 - Unlikely to Affect Management [ ] 3 - Possible Eventual Change of Management [ ] 4 - Probable Immediate Change of Management For all other patient related information, please fax us at [phone]. [id number] [facility] Patient: LACI SOLITARIO (Female) : 49 Status: ER Date: 03/30/21 22:05 Room #: History: FALL, PT HIT HEAD NECK PAIN, RT HIP PAIN EK/AW Slices: 718 Priors: Tech: Michelet Richard @ [phone] Exams: CT RIGHT HIP Contrast: Accession Numbers: [id number] Preliminary Findings Only See Final Report For Complete Findings CT RIGHT HIP: Slightly comminuted and impacted fracture of the subcapital right femoral neck. Mild narrowing and osteophytosis of the right hip joint. No dislocation. Mild diffuse osteopenia. The visualized portion of the right pelvis is intact. Radiologist: Moiz So MD Study ready at 22:12 and initial results transmitted at 22:28 *This report constitutes a preliminary interpretation only. Non-acute findings felt to be unrelated to the clinical presentation may not be discussed in this report. The study will be interpreted and a final report will be generated by the local Radiologist the following shift. To reach the hospital radiology department call [phone]. If a discrepancy is found between the preliminary and final interpretations of this study, please notify us via our Client Portal at [email or web address].You can also fax this report with a description of the discrepancy, or include the final report, to our daytime fax number [phone].If faxing, please indicate the severity of discrepancy using one of the following categories: [ ] 1 - Agree/Informational [ ] 2 - Unlikely to Affect Management [ ] 3 - Possible Eventual Change of Management [ ] 4 - Probable Immediate Change of Management For all other patient related information, please fax us at [phone]. [id number] Code Status & VTE Plan Code Status Full code VTE Prophylaxis Plan VTE Prophylaxis will be ordered: Yes PG Care Time/CCT Total # of Minutes Spent Total Time Spent with Patient: Total time spent is greater than 50% in coordination of care (as documented) at patient's floor/unit and/or counseling patient: Coding Level of Care Code 64710 Initial Inpt Care Lvl 3 Diagnoses Closed right hip fracture S72.001A Fall W19.XXXA Encounter type: initial encounter Diabetes type 2, controlled E11.9 Hypothyroidism, postablative E89.0 HTN (hypertension) I10 Hypertension type: essential hypertension Asthma J45.909 (1) Fall Encounter type: initial encounter Qualified Code(s): W19.XXXA - Unspecified fall, initial encounter (2) HTN (hypertension) Hypertension type: essential hypertension Qualified Code(s): I10 - Essential (primary) hypertension
[2021-03-31] MEDS ORDERED: NALOXONE HCL 0.4 MG/1 ML VIAL/CARP IV PRN (02:24)
[2021-03-31] MEDS ORDERED: ONDANSETRON INJ 2 MG/ML 2 ML VIAL IV PRN (02:24)
[2021-03-31] MEDS ORDERED: GLUCOSE 10 TABS/TUBE PO PRN (02:24)
[2021-03-31] MEDS ORDERED: traMADol HCL 50 MG TABLET PO PRN ×2 (02:24)
[2021-03-31] MEDS ORDERED: MoRPHine SULFATE 2 MG/ML CARP IV PRN (02:24)
[2021-03-31] MEDS ORDERED: DEXTROSE 50% 50 ML SYRINGE IV PRN (02:24)
[2021-03-31] MEDS ORDERED: bisacodyL 10 MG SUPP PR PRN (02:24)
[2021-03-31] MEDS ORDERED: MoRPHine SULFATE 4 MG/ML 1 ML CARP\\VIAL IV PRN (02:24)
[2021-03-31] MEDS ORDERED: GLUCOSE 40% GEL 15 GM TUBE PO PRN (02:24)
[2021-03-31] MEDS ORDERED: GLUCAGON FOR INJ 1 MG VIAL SQ PRN (02:24)
[2021-03-31] MEDS ORDERED: CARBOHYDRATES FOR HYPOGLYCEMIA PO PRN (02:24)
[2021-03-31] MEDS ORDERED: MAGNESIUM HYDROXIDE SUSP 30 ML UDC PO PRN (02:24)
[2021-03-31] MEDS ORDERED: ALBUT/IPRATROP 3MG/0.5MG NEB 3 ML VIAL NEB PRN (02:35)
[2021-03-31] MEDS ORDERED: NSS + 20MEQ KCL 20 MEQ/1,000 ML BAG IV SCH (03:00)
[2021-03-31] MEDS: LEVOTHYROXINE SODIUM 125 MCG TABLET PO SCH (05:00)
[2021-03-31 07:09] LABS: Basophils # (auto) 0.02 K/uL (0-0.2); Basophils % (auto) 0.2 %; Eosinophils # (auto) 0.04 K/uL (0-0.5); Eosinophils % (auto) 0.4 %; Hematocrit (blood only) 39.1 % (37-47); Immature Granulocytes # (auto) 0.03 K/uL (0.00-0.02); Immature Granulocytes % (auto) 0.3 %; Lymphocytes # (auto) 1.17 K/uL (1.2-3.4); Lymphocytes % (auto) 10.4 %; Mean Corpuscular Hemoglobin 28.8 pg (25-34); Mean Corpuscular Hgb Conc 33.2 g/dL (32-36); Mean Corpuscular Volume 86.7 fL (80-100); Mean Platelet Volume 9.7 fL (7.4-10.4); Monocytes # (auto) 0.68 K/uL (0.11-0.59); Neutrophils # (auto) 9.31 K/uL (1.4-6.5); Neutrophils % (auto) 82.7 %; Platelet Count 262 K/uL (130-400); RDW Coefficient of Variation 13.7 % (11.5-14.5); RDW Standard Deviation 43.7 fL (36.4-46.3); Red Blood Count 4.51 M/uL (4.2-5.4); White Blood Count 11.25 K/uL (4.8-10.8)
--- NOTE | 2021-03-31 07:14 | CT Scan Report ---
HEAD CT NONCONTRAST CT DOSE: HISTORY: fall hit head TECHNIQUE: Multiaxial CT images of the head were performed without the use of intravenous contrast. A utomated exposure control was utilized for this study. A dose lowering technique was utilized adheri ng to the principles of ALARA. Comparison: Head CT 12/16/2020. Findings: The paranasal sinuses and mastoid air cells are clear. The calvarium and skull base are int act. The ventricles and sulci are within normal limits. There is no mass, hematoma, midline shift, or acute infarct. Prior left-sided craniotomy with underlying postoperative encephalomalacia. This crystal ins unchanged. Impression: No significant change compared to the prior study. No acute intracranial abnormality. ACT 112: Negative or not required by law. Electronically signed by: Edgar Meek M.D. 03/31/2021 7:13 AM
--- NOTE | 2021-03-31 07:26 | CT Scan Report ---
CT OF THE CERVICAL SPINE WITHOUT CONTRAST CLINICAL HISTORY: Fall. COMPARISON STUDY: Cervical spine CT December 16, 2020. TECHNIQUE: Helical axial images of the cervical spine were obtained without IV contrast. Sagittal a nd coronal reconstructions were viewed. Automated exposure control was utilized for the study. A do se lowering technique was utilized adhering to the principles of ALARA. FINDINGS: Alignment of the cervical spine is anatomic. Vertebral body heights are maintained. No acut e cervical spine fracture or subluxation is present. There is no prevertebral edema. Facet joints are intact. Moderate multilevel facet arthrosis is present. Degenerative changes at the C1-C2 articulat ion are noted. Appearance of the cervical spine is similar to prior exam. IMPRESSION: No acute cervical spine fracture or subluxation. ACT 112: Negative or not required by law. Electronically signed by: Vicente Shrestha M.D. 03/31/2021 7:25 AM
[2021-03-31 07:50] LABS: Albumin Level 2.9 gm/dl (3.4-5.0); BUN Creatinine Ratio 26.3 (10-20); Calcium 8.5 mg/dl (8.5-10.1); Creatinine Clr Calc Pharmacy 129.4 ml/min; Est GFR (African American) 118.8 ml/min; Est GFR (Non-African American) 102.5 ml/min; Potassium 3.5 mmol/L (3.5-5.1)
[2021-03-31 07:53] LABS: Albumin Globulin Ratio 0.7 (0.9-2); Bilirubin,Total 0.7 mg/dl (0.2-1); Globulin 4.2 gm/dl (2.5-4.0); Total Protein 7.1 gm/dl (6.4-8.2)
--- NOTE | 2021-03-31 07:53 | XRay Report ---
RIGHT SHOULDER 3 VIEWS HISTORY: r shoulder pain COMPARISON: None. FINDINGS: There is no fracture or dislocation. Mild supraspinatus calcific tendinitis. Moderate AC cari int arthrosis and moderate degenerative changes within the glenohumeral joint. The right clavicle is intact. No radiopaque foreign bodies. IMPRESSION: Moderate osteoarthritis within the right shoulder. No fractures. ACT 112: Negative or not required by law. Electronically signed by: Edgar Meek M.D. 03/31/2021 7:51 AM
--- NOTE | 2021-03-31 07:54 | XRay Report ---
XR hip RT 2V w pelvis CLINICAL HISTORY: r hip pain COMPARISON STUDY: Pelvis 09/06/2015. FINDINGS: Impacted subcapital right femoral neck fracture. The bones are osteopenic. No dislocation. The sacrum appears intact. IMPRESSION: Impacted subcapital right femoral neck fracture. ACT 112: Negative or not required by law. Electronically signed by: Edgar Meek M.D. 03/31/2021 7:52 AM
--- NOTE | 2021-03-31 07:57 | XRay Report ---
RIGHT ELBOW 3 VIEWS HISTORY: r elbow pain COMPARISON: None. FINDINGS: There is no fracture or dislocation. Mild posterior soft tissue swelling. No definite joint effusion. Although, the lateral view is suboptimal to assess for a joint effusion. No radiopaque for eign bodies. IMPRESSION: No definite fracture or dislocation within the right elbow. ACT 112: Negative or not required by law. Electronically signed by: Edgar Meek M.D. 03/31/2021 7:55 AM
[2021-03-31] MEDS: INSULIN ASPART 100 UNITS/ML 3 ML PEN SC SCH ×4 (08:00→21:03)
[2021-03-31] MEDS: MULTIVITAMIN TAB PO SCH (08:00)
[2021-03-31] MEDS: INSULIN DETEMIR FLEXPEN/FLEX TOUCH 100 UNITS/ML 3ML SC SCH (08:01)
--- NOTE | 2021-03-31 08:11 | CT Scan Report ---
CT hip RT wo con CLINICAL HISTORY: Right hip pain following fall. COMPARISON STUDY: Pelvis and right hip radiographs March 30, 2021. TECHNIQUE: Axial images of the right hip were obtained without IV contrast. Sagittal and coronal hayden nstructions were viewed. Automated exposure control was utilized for the study. A dose lowering tech nique was utilized adhering to the principles of ALARA. FINDINGS: Note is made of an acute impacted mildly displaced subcapital right femoral neck fracture. No additional acute fractures are identified. There is moderate osteoarthritis of the right hip. No a cute fracture within visualized portions of the right hemipelvis are noted. A few prominent right ext ernal iliac and inguinal lymph nodes are noted. IMPRESSION: Acute impacted mildly displaced subcapital right femoral neck fracture. ACT 112: Negative or not required by law. Electronically signed by: Vicente Shrestha M.D. 03/31/2021 8:10 AM
[2021-03-31] MEDS ORDERED: Nursing to Pharmacy Communication SCH ×4 (08:15→12:45)
[2021-03-31 08:35] LABS: Estimated Average Glucose 206 mg/dl; Hemoglobin A1C 8.8 % (4.5-5.6)
[2021-03-31] MEDS ORDERED: amLODIPine BESYLATE 5 MG TAB PO SCH ×4 (09:00→11:30)
[2021-03-31] MEDS: ACETAMINOPHEN 500 MG TAB PO PRN (11:08)
--- NOTE | 2021-03-31 11:28 | Anesthesiology Consultation ---
Date of Service March 31, 2021 Assessment & Plan (1) Encounter for pre-operative examination: Chart Review Chart Review: Acceptable Risk for Surgery History Surgery Operation Date: 04/01/21 07:00 Proposed Procedures p Right Hip Hemiarthroplasty - Manuelito Melva Cross MD Height/Weight Height: 5 ft 6 in Weight: 78.8 kg Allergies Allergy/AdvReac Type Severity Reaction Status Date / Time aspirin Allergy Severe HIVES; Verified 03/30/21 21:43 DIFFICULTY BREATHING Penicillins Allergy Severe HIVES AND Verified 03/30/21 21:43 DIFFICULTY BREATHING Benzodiazepines Allergy Mild Unknown Verified 03/30/21 21:43 doxycycline Allergy Mild Unknown Verified 03/30/21 21:43 Sulfa (Sulfonamide Allergy Mild Unknown Verified 03/30/21 21:43 Antibiotics) aspartame Allergy Unknown Unknown Verified 03/30/21 21:43 diltiazem Allergy Unknown UNKNOWN Verified 03/30/21 21:43 REACTION epinephrine Allergy Unknown UNKNOWN Verified 03/30/21 21:43 REACTION melon Allergy Unknown Unknown Verified 03/30/21 21:43 moxifloxacin Allergy Unknown UNKNOWN Verified 03/30/21 21:43 REACTION nifedipine Allergy Unknown UNKNOWN Verified 03/30/21 21:43 REACTION simvastatin Allergy Unknown UNKNOWN Verified 03/30/21 21:43 REACTION PER PT vancomycin Allergy Unknown UNKNOWN Verified 03/30/21 21:43 REACTION colchicine AdvReac Intermediate Difficulty Verified 03/30/21 21:43 Breathing Medications Home Medications Medication Instructions Recorded Confirmed Last Taken albuterol sulfate 2 puff INHALATION Q6H PRN 08/21/19 03/30/21 Unknown losartan [Cozaar] 100 mg PO HS 08/21/19 03/30/21 03/29/21 Levemir U-100 Insulin 30 unit SUBCUT QAM 05/16/20 03/30/21 03/29/21 multivitamin 1 tab PO QAM 11/27/20 03/30/21 03/29/21 blood sugar diagnostic #100 ea 12/05/20 03/25/21 Unknown furosemide 40 mg tablet 40 mg PO QAM #30 tab 12/13/20 03/30/21 03/29/21 amlodipine 2.5 mg PO QDL 12/16/20 03/30/21 03/30/21 metformin 500 mg tablet 1,000 mg PO BIDM tab 12/30/20 03/30/21 03/29/21 inhalational spacing device #1 ea 01/03/21 03/25/21 Unknown lancets 33 gauge #100 ea 01/03/21 03/25/21 Unknown pen needle, diabetic 32 gauge x #50 ea 01/03/21 03/25/21 Unknown 10/21" potassium chloride 20 mEq oral 20 meq PO DAILY #30 ea 01/30/21 03/30/21 03/29/21 packet levothyroxine 125 mcg PO DAILYBB 02/21/21 03/30/21 03/30/21 amlodipine 5 mg PO QDL 03/30/21 03/30/21 03/30/21 Active Medications Generic Name Dose Route Start Last Admin Trade Name Freq PRN Reason Stop Dose Admin Acetaminophen 1,000 mg 03/31/21 10:41 03/31/21 11:08 Acetaminophen 500 Mg Tab PO 04/30/21 10:40 1,000 mg Q6H PRN Administration Pain Insulin Aspart 0 units 03/31/21 07:30 03/31/21 08:00 Insulin Aspart 100 Units/Ml 3 Ml Pen SC 04/30/21 07:29 Not Given ACHS [facility] Insulin Detemir 10 units 03/31/21 09:00 03/31/21 08:01 Insulin Detemir Flexpen/Flex Touch 100 Units/Ml 3ml SC 04/30/21 08:59 5 units QAM SABINE Administration Levothyroxine Sodium 125 mcg 03/31/21 06:30 03/31/21 05:00 Levothyroxine Sodium 125 Mcg Tablet PO 04/30/21 06:29 125 mcg DAILYBB SABINE Administration Multivitamins 1 tab 03/31/21 09:00 03/31/21 08:00 Multivitamin Tab PO 04/30/21 08:59 1 tab QAM SABINE Administration Past Medical History Medical History Acute diastolic (congestive) heart failure Asthma Benign essential HTN Cardiac arrest Chest pain Diabetes type 2, controlled Diastolic heart failure Dyslipidemia Financial difficulties Gait abnormality History of ectopic History of seizures as a child HTN (hypertension) Hx of pleurisy Hx of thyroid cancer Hypothyroidism in adult Hypothyroidism, postablative Lower extremity edema Mild intermittent asthma Pleurisy without effusion Right knee DJD Shakiness Type 2 diabetes mellitus Type 2 diabetes mellitus, uncontrolled Wheelchair bound Past Family History Family History Other TIA (transient ischemic attack) Past Surgical History Surgical History History of D&C Hx of brain surgery 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) Hx of section Hx of thyroidectomy Social History Smoking Status: Never smoker Hx Alcohol Use: No Hx Substance Use: No substance use type: does not use Physical Exam Vital Signs Last Vital Signs Temp 37.0 C 03/31/21 11:00 Pulse 95 H 03/31/21 11:00 Resp 18 03/31/21 11:00 BP 169/81 H 03/31/21 11:00 Pulse Ox 95 03/31/21 11:00 Testing Laboratory Results 03/31/21 06:46 03/31/21 06:46 Hemoglobin A1c 8.8 % (4.5-5.6) H 03/31/21 06:46 Blood Type O Positive 03/31/21 06:46 Antibody Screen NEGATIVE 03/31/21 06:46 03/31/21 03/31/21 03/30/21 11:15 07:17 23:11 POC Glucose 148 H 163 H 145 H Electrocardiogram Date: 02/21/21 Findings: + NSR @ (90) and + poor R wave progression Echocardiogram Date: 10/30/20 EF: 55-60 LV Function: normal Other Findings: + diastolic dysfunction Valvular Disease: + no significant valvular disease RV function normal
--- NOTE | 2021-03-31 11:53 | Orthopedic Consultation ---
Date of Consultation March 31, 2021 Assessment & Plan (1) Closed right hip fracture: Please see Dr Cross comments below for further details. She is tentatively on the schedule for right hip hemiarthroplasty add on for OR on 04-01-21, if she decides to proceed with surgery. She is able to eat today. Will be NPO after midnight. The consent was reviewed and signed. Dr Cross discussed options in detail with the patient and her son, Vahid, via the phone. Anesthesia was consulted. She is still thinking about her options. I, Dr. Cross, saw and examined the patient with my PA, and agree with the above findings and plan of care we discussed. The patient is a 75 year old female who sustained a left hip fracture from ground level fall. Their treatment options of conservative versus surgical intervention were discussed with the patient and her son, Vahid via telephone. Since the patient is wheel chair bound and mostly uses her left leg for transfers due to contracture of her right knee they understand that surgery would be for pain control and would not result in improved function. The risks of conservative treatment include, continued pain, bed sores, pulmonary complications. The patient and their family understands the risks of surgery, which include but are not limited to: bleeding, infection, re-operation, damage to nerves and arteries, continued pain, failure of the hardware, fracture, dislocation, DVT, and . Due to their medical problems the patient and their family understand that the patient is a high risk candidate for surgery. In addition the patient and family are aware of the 20-30% morbidity associated with hip fracture for up to 1 year following a hip fracture. The patient understands all of these instructions and explanations, all of their questions have been satisfactorily addressed. With her wheel chair bound non-operative treatment with bed-chair is an option and if that were to fail or her pain not controlled she would be a candidate for right hip arley-arthroplasty. She is extremely anxious about anesthesia. She would like to think about it further and see how her pain can be controlled. The patient sign the informed consent in the event that she decides to proceed with surgery. She does not want to loose her independence. She will need a skilled vs rehab facility at least temporarily whether she does or does not have surgery. She will need PT/OT evaluations to determine if she would be safe to return to the home. She can eat, but has been made NPO after midnight. She has been added to the add-on list for tomorrow if she decides to move forward with surgery. WBAT LLE, TTWB RLE, with assistance bed-chair. She understands that the may take 2 weeks to improve. Present on Admission?: Yes History of Present Illness Reason for Consultation: right hip fracture Requesting Physician: Dr Cross Attending Physician: Adrianna Jensen MD History of Present Illness The patient is a 75-year-old female with a past medical history including asthma, diabetes mellitus type 2, post ablative hypothyroidism, hypertension, CHF, and wheelchair-bound. She was admitted from ED last evening for right hip fracture. Orthopedics was consulted. She was standing in kitchen from her wheelchair and her dress got caught in wheelchair, she fell backwards, hitting her head, and right side of her body. She developed immediate discomfort in the right hip in particular, and was brought to the emergency department for assessment. She was diagnosed with an impacted subcapital femoral neck fracture. She was made NPO. Patient was seen this am at bedside by Dr Cross and myself to discuss treatment options. She is w/c bound but able to transfer herself by pivoting on left leg and standing for certain tasks. Her right knee is extremely arthritic and contracted. She lives alone. She has bee w/c bound for over 20yrs since a brain surgery. She is reluctant to have surgery because of her fears of anesthesia and risks it involves but wants to be as independent as possible with improved pain. Allergies Allergy/AdvReac Type Severity Reaction Status Date / Time aspirin Allergy Severe HIVES; Verified 03/30/21 21:43 DIFFICULTY BREATHING Penicillins Allergy Severe HIVES AND Verified 03/30/21 21:43 DIFFICULTY BREATHING Benzodiazepines Allergy Mild Unknown Verified 03/30/21 21:43 doxycycline Allergy Mild Unknown Verified 03/30/21 21:43 Sulfa (Sulfonamide Allergy Mild Unknown Verified 03/30/21 21:43 Antibiotics) aspartame Allergy Unknown Unknown Verified 03/30/21 21:43 diltiazem Allergy Unknown UNKNOWN Verified 03/30/21 21:43 REACTION epinephrine Allergy Unknown UNKNOWN Verified 03/30/21 21:43 REACTION melon Allergy Unknown Unknown Verified 03/30/21 21:43 moxifloxacin Allergy Unknown UNKNOWN Verified 03/30/21 21:43 REACTION nifedipine Allergy Unknown UNKNOWN Verified 03/30/21 21:43 REACTION simvastatin Allergy Unknown UNKNOWN Verified 03/30/21 21:43 REACTION PER PT vancomycin Allergy Unknown UNKNOWN Verified 03/30/21 21:43 REACTION colchicine AdvReac Intermediate Difficulty Verified 03/30/21 21:43 Breathing Home Medications Medication Instructions Recorded Confirmed Type albuterol sulfate 2 puff INHALATION Q6H PRN 08/21/19 03/30/21 History losartan [Cozaar] 100 mg PO HS 08/21/19 03/30/21 History Levemir U-100 Insulin 30 unit SUBCUT QAM 05/16/20 03/30/21 History multivitamin 1 tab PO QAM 11/27/20 03/30/21 History blood sugar diagnostic #100 ea 12/05/20 03/25/21 Rx furosemide 40 mg tablet 40 mg PO QAM #30 tab 12/13/20 03/30/21 Rx amlodipine 2.5 mg PO QDL 12/16/20 03/30/21 History metformin 500 mg tablet 1,000 mg PO BIDM tab 12/30/20 03/30/21 History inhalational spacing device #1 ea 01/03/21 03/25/21 History lancets 33 gauge #100 ea 01/03/21 03/25/21 History pen needle, diabetic 32 gauge x #50 ea 01/03/21 03/25/21 History 1/4" potassium chloride 20 mEq oral 20 meq PO DAILY #30 ea 01/30/21 03/30/21 Rx packet levothyroxine 125 mcg PO DAILYBB 02/21/21 03/30/21 History amlodipine 5 mg PO QDL 03/30/21 03/30/21 History Patient History Medical History Acute diastolic (congestive) heart failure Ambulatory dysfunction Asthma Benign essential HTN Cardiac arrest Chest pain Diabetes type 2, controlled Diastolic heart failure Dyslipidemia Financial difficulties Gait abnormality History of ectopic History of seizures as a child HTN (hypertension) Hx of pleurisy Hx of thyroid cancer Hypothyroidism in adult Hypothyroidism, postablative Lower extremity edema Mild intermittent asthma Pleurisy without effusion Right knee DJD Shakiness Type 2 diabetes mellitus Type 2 diabetes mellitus, uncontrolled Wheelchair bound Surgical History History of D&C Hx of brain surgery 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) Hx of section Hx of thyroidectomy Family History Other TIA (transient ischemic attack) Social History Smoking Status: Never smoker Hx Alcohol Use: No Hx Substance Use: No Preferred Language: [place] Communication Ability: Effective [employer] Collector Required: No Beliefs That Will Affect Care: None marital status: / Current Living Situation: Alone current occupational status: retired Feels Safe at Home: Yes Assistive Devices: Oxygen - Continuous and Wheelchair Review of Systems Review of Systems: All systems reviewed & are unremarkable except as noted in HPI & below Physical Exam Physical Exam: Patient resting in bed. Alert and Oriented x 3. Right hip: Skin intact. Tender to palpation. Pain with log rolling. Right knee: Contracted at approximately 30 degrees of flexion. Pain with attempted motion. B LE: with SCDs. Trace PE B LE. NV intact. Able to wiggle ankles and toes. Palpable DP and PT pulses. Capillary refill brisk. No pain with L LE motion of hip/knee. Able to move upper extremities with pain with motion of right shoulder but functional and good rotator cuff strength. Results & Data ([facility]) Vital Signs (Past 12 Hours) Vital Signs Temp Pulse Pulse Pulse Resp BP BP 03/31/21 11:00 37.0 C 95 H 18 169/81 H 03/31/21 08:00 97 H 03/31/21 07:33 36.9 C 89 17 173/76 H 03/31/21 03:35 36.8 C 91 H 20 170/76 H 03/31/21 03:31 181/90 H 03/31/21 02:00 36.9 C 100 H 20 198/99 H 03/31/21 01:55 92 H 18 175/106 H 03/31/21 01:20 94 H 18 03/31/21 00:27 97 H 18 175/93 H Pulse Ox 03/31/21 11:00 95 03/31/21 08:00 03/31/21 07:33 99 03/31/21 03:35 96 03/31/21 03:31 03/31/21 02:00 97 03/31/21 01:55 93 03/31/21 01:20 94 03/31/21 00:[address] hip RT wo con CLINICAL HISTORY: Right hip pain following fall. COMPARISON STUDY: Pelvis and right hip radiographs March 30, 2021. TECHNIQUE: Axial images of the right hip were obtained without IV contrast. Sagittal and coronal reconstructions were viewed. Automated exposure control was utilized for the study. A dose lowering technique was utilized adhering to the principles of ALARA. FINDINGS: Note is made of an acute impacted mildly displaced subcapital right femoral neck fracture. No additional acute fractures are identified. There is moderate osteoarthritis of the right hip. No acute fracture within visualized portions of the right hemipelvis are noted. A few prominent right external iliac and inguinal lymph nodes are noted. IMPRESSION: Acute impacted mildly displaced subcapital right femoral neck fracture. XR hip RT 2V w pelvis CLINICAL HISTORY: r hip pain COMPARISON STUDY: Pelvis 09/06/2015. FINDINGS: Impacted subcapital right femoral neck fracture. The bones are osteopenic. No dislocation. The sacrum appears intact. IMPRESSION: Impacted subcapital right femoral neck fracture. RIGHT SHOULDER 3 VIEWS HISTORY: r shoulder pain COMPARISON: None. FINDINGS: There is no fracture or dislocation. Mild supraspinatus calcific tendinitis. Moderate AC joint arthrosis and moderate degenerative changes within the glenohumeral joint. The right clavicle is intact. No radiopaque foreign bodies. IMPRESSION: Moderate osteoarthritis within the right shoulder. No fractures
[2021-03-31] MEDS ORDERED: INSULIN GLARGINE SOLOSTAR 100 UNITS/ML 3 ML PEN SC ONE (11:54)
[2021-03-31] MEDS ORDERED: INSULIN DETEMIR FLEXPEN/FLEX TOUCH 100 UNITS/ML 3ML SC STA ×2 (12:01→12:44)
--- NOTE | 2021-03-31 12:07 | Hospitalist Progress Note ---
Date of Service March 31, 2021 Assessment & Plan (1) Closed right hip fracture: Closed right hip fracture status post mechanical fall- Is normally wheelchair bound with RLE contracture but does transfer from wheelchair to her car and drive to appointments. SHe uses her legs to scoot around in wheelchair She is undecided about surgery tomorrow-based on pain control overnight as per Ortho -continue APAP, add on T#3 prn -can eat today and NPO after midnight tonight in case of surgery tomorrow -bowel regimen -dc IVFs and restart home lasix APpreciate Ortho consult ok to downgrade to med/surg floor (2) Fall: Mechanical fall as she was dressed got tangled up as she was getting up out of her wheelchair. no events on tele, did not have LOC (3) Diabetes type 2, controlled: Decrease Levemir from 30 to 10 units subcu every morning while NPO Placed on Accu-Cheks before meals and at bedtime with NovoLog coverage per scale Check hemoglobin [id number] Hold Metformin (4) Hypothyroidism, postablative: Continue levothyroxine 125 mcg daily TSH is always elevated in past labs and most recently was 9 in 11/2020 check TSH in AM May be poor absorption given previous volume overload (5) HTN (hypertension): Continue amlodipine and losartan with hold parameters restart furosemide now that not having surgery and also received IVFs overnight (6) Asthma: DuoNebs every 2 hours as needed no acute issues (7) Ambulatory dysfunction: as above, 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 Just took some tylenol. Has a fear of getting addicted to opioids which is why she is hesitant to take them. No SOB, otherwise doing ok. I discussed her care with Orthopedics Tele with NSR rates 90-100 Review of Systems Review of Systems: All systems reviewed & are unremarkable except as noted in HPI & below Physical Exam Constitutional: WD/WN, vitals as above Eyes: + anicteric sclerae Neck: trachea midline, no thyromegaly Respiratory: normal respiratory effort, lungs clear to auscultation Cardiovascular: RRR, no murmur, no edema Chest (Breasts): Chest: normal inspection of chest Gastrointestinal (Abdomen): normal bowel sounds, soft, nontender, no hepatosplenomegaly Musculoskeletal: Extremities: extremities normal to inspection; no cyanosis and no clubbing Skin: no rashes, warm and dry Neurologic: moves all extremities and awake; no focal motor deficits Psychiatric: A+Ox3, euthymic affect Lymphatic: no lymphedema Results & Data Results & Data ([facility]) Vital Signs (Past 12 Hours) Vital Signs Temp Pulse Pulse Pulse Resp BP BP 03/31/21 11:00 37.0 C 95 H 18 169/81 H 03/31/21 08:00 97 H 03/31/21 07:33 36.9 C 89 17 173/76 H 03/31/21 03:35 36.8 C 91 H 20 170/76 H 03/31/21 03:31 181/90 H 03/31/21 02:00 36.9 C 100 H 20 198/99 H 03/31/21 01:55 92 H 18 175/106 H 03/31/21 01:20 94 H 18 03/31/21 00:27 97 H 18 175/93 H Pulse Ox 03/31/21 11:00 95 03/31/21 08:00 03/31/21 07:33 99 03/31/21 03:35 96 03/31/21 03:31 03/31/21 02:00 97 03/31/21 01:55 93 03/31/21 01:20 94 03/31/21 00:27 95 Laboratory Results 03/31/21 03/31/21 03/31/21 Range/Units 11:15 07:17 06:46 WBC (4.8-10.8) K/uL RBC (4.2-5.4) M/uL Hgb (12.0-16.0) g/dL Hct (37-47) % MCV (80-100) fL MCH (25-34) pg MCHC (32-36) g/dL RDW Std Deviation (36.4-46.3) fL RDW Coeff of Smith (11.5-14.5) % Plt Count (130-400) K/uL MPV (7.4-10.4) fL Immature Gran % (Auto) % Neut % (Auto) % Lymph % (Auto) % [place] % (Auto) % Eos % (Auto) % Baso % (Auto) % Neut # (Auto) (1.4-6.5) K/uL Lymph # (Auto) (1.2-3.4) K/uL [place] # (Auto) (0.11-0.59) K/uL Eos # (Auto) (0-0.5) K/uL Baso # (Auto) (0-0.2) K/uL Immature Gran # (Auto) (0.00-0.02) K/uL Sodium (136-145) mmol/L Potassium (3.5-5.1) mmol/L Chloride (98-107) mmol/L Carbon Dioxide (21-32) mmol/L Anion Gap (3-11) BUN (7-18) mg/dl Creatinine (0.6-1.2) mg/dl Est Cr Clr Drug Dosing ml/min Est GFR ( Amer) ml/min Est GFR (Non-Af Amer) ml/min BUN/Creatinine Ratio (10-20) Glucose (70-99) mg/dl POC Glucose 148 H 163 H (70-99) mg/dl Estimat Average Glucose 206 mg/dl Hemoglobin A1c 8.8 H (4.5-5.6) % Calcium (8.5-10.1) mg/dl Total Bilirubin (0.2-1) mg/dl AST (15-37) U/L ALT (12-78) U/L Alkaline Phosphatase (45-117) U/L Total Protein (6.4-8.2) gm/dl Albumin (3.4-5.0) gm/dl Globulin (2.5-4.0) gm/dl Albumin/Globulin Ratio (0.9-2) COVID-19 Eval Order SARS-CoV-2 (PCR) (Negative) Blood Type Antibody Screen 03/31/21 03/31/21 03/31/21 Range/Units 06:46 06:46 06:46 WBC 11.25 H (4.8-10.8) K/uL RBC 4.51 (4.2-5.4) M/uL Hgb 13.0 (12.0-16.0) g/dL Hct 39.1 (37-47) % MCV 86.7 (80-100) fL MCH 28.8 (25-34) pg MCHC 33.2 (32-36) g/dL RDW Std Deviation 43.7 (36.4-46.3) fL RDW Coeff of Smith 13.7 (11.5-14.5) % Plt Count 262 (130-400) K/uL MPV 9.7 (7.4-10.4) fL Immature Gran % (Auto) 0.3 % Neut % (Auto) 82.7 % Lymph % (Auto) 10.4 % [place] % (Auto) 6.0 % Eos % (Auto) 0.4 % Baso % (Auto) 0.2 % Neut # (Auto) 9.31 H (1.4-6.5) K/uL Lymph # (Auto) 1.17 L (1.2-3.4) K/uL [place] # (Auto) 0.68 H (0.11-0.59) K/uL Eos # (Auto) 0.04 (0-0.5) K/uL Baso # (Auto) 0.02 (0-0.2) K/uL Immature Gran # (Auto) 0.03 H (0.00-0.02) K/uL Sodium 140 (136-145) mmol/L Potassium 3.5 (3.5-5.1) mmol/L Chloride 105 (98-107) mmol/L Carbon Dioxide 29 (21-32) mmol/L Anion Gap 6.0 (3-11) BUN 11 (7-18) mg/dl Creatinine 0.41 L (0.6-1.2) mg/dl Est Cr Clr Drug Dosing 129.4 ml/min Est GFR ( Amer) 118.8 ml/min Est GFR (Non-Af Amer) 102.5 ml/min BUN/Creatinine Ratio 26.3 H (10-20) Glucose 164 H (70-99) mg/dl POC Glucose (70-99) mg/dl Estimat Average Glucose mg/dl Hemoglobin A1c (4.5-5.6) % Calcium 8.5 (8.5-10.1) mg/dl Total Bilirubin 0.7 (0.2-1) mg/dl AST 13 L (15-37) U/L ALT 13 (12-78) U/L Alkaline Phosphatase 79 (45-117) U/L Total Protein 7.1 (6.4-8.2) gm/dl Albumin 2.9 L (3.4-5.0) gm/dl Globulin 4.2 H (2.5-4.0) gm/dl Albumin/Globulin Ratio 0.7 L (0.9-2) COVID-19 Eval Order SARS-CoV-2 (PCR) (Negative) Blood Type O Positive Antibody Screen NEGATIVE 03/31/21 03/31/21 03/30/21 Range/Units 00:07 00:07 23:11 WBC (4.8-10.8) K/uL RBC (4.2-5.4) M/uL Hgb (12.0-16.0) g/dL Hct (37-47) % MCV (80-100) fL MCH (25-34) pg MCHC (32-36) g/dL RDW Std Deviation (36.4-46.3) fL RDW Coeff of Smith (11.5-14.5) % Plt Count (130-400) K/uL MPV (7.4-10.4) fL Immature Gran % (Auto) % Neut % (Auto) % Lymph % (Auto) % [place] % (Auto) % Eos % (Auto) % Baso % (Auto) % Neut # (Auto) (1.4-6.5) K/uL Lymph # (Auto) (1.2-3.4) K/uL [place] # (Auto) (0.11-0.59) K/uL Eos # (Auto) (0-0.5) K/uL Baso # (Auto) (0-0.2) K/uL Immature Gran # (Auto) (0.00-0.02) K/uL Sodium (136-145) mmol/L Potassium (3.5-5.1) mmol/L Chloride (98-107) mmol/L Carbon Dioxide (21-32) mmol/L Anion Gap (3-11) BUN (7-18) mg/dl Creatinine (0.6-1.2) mg/dl Est Cr Clr Drug Dosing ml/min Est GFR ( Amer) ml/min Est GFR (Non-Af Amer) ml/min BUN/Creatinine Ratio (10-20) Glucose (70-99) mg/dl POC Glucose 145 H (70-99) mg/dl Estimat Average Glucose mg/dl Hemoglobin A1c (4.5-5.6) % Calcium (8.5-10.1) mg/dl Total Bilirubin (0.2-1) mg/dl AST (15-37) U/L ALT (12-78) U/L Alkaline Phosphatase (45-117) U/L Total Protein (6.4-8.2) gm/dl Albumin (3.4-5.0) gm/dl Globulin (2.5-4.0) gm/dl Albumin/Globulin Ratio (0.9-2) COVID-19 Eval Order Covid19 at [facility] SARS-CoV-2 (PCR) NEGATIVE (Negative) Blood Type Antibody Screen 03/30/21 03/30/21 Range/Units 21:40 21:40 WBC 13.00 H (4.8-10.8) K/uL RBC 5.21 (4.2-5.4) M/uL Hgb 14.7 (12.0-16.0) g/dL Hct 45.1 (37-47) % MCV 86.6 (80-100) fL MCH 28.2 (25-34) pg MCHC 32.6 (32-36) g/dL RDW Std Deviation 43.7 (36.4-46.3) fL RDW Coeff of Smith 13.7 (11.5-14.5) % Plt Count 305 (130-400) K/uL MPV 9.7 (7.4-10.4) fL Immature Gran % (Auto) 0.5 % Neut % (Auto) 81.2 % Lymph % (Auto) 11.5 % [place] % (Auto) 5.7 % Eos % (Auto) 0.9 % Baso % (Auto) 0.2 % Neut # (Auto) 10.55 H (1.4-6.5) K/uL Lymph # (Auto) 1.50 (1.2-3.4) K/uL [place]asper # (Auto) 0.74 H (0.11-0.59) K/uL Eos # (Auto) 0.12 (0-0.5) K/uL Baso # (Auto) 0.02 (0-0.2) K/uL Immature Gran # (Auto) 0.07 H (0.00-0.02) K/uL Sodium 141 (136-145) mmol/L Potassium 3.5 (3.5-5.1) mmol/L Chloride 103 (98-107) mmol/L Carbon Dioxide 28 (21-32) mmol/L Anion Gap 10.0 (3-11) BUN 15 (7-18) mg/dl Creatinine 0.52 L (0.6-1.2) mg/dl Est Cr Clr Drug Dosing 117.4 ml/min Est GFR ( Amer) 109.9 ml/min Est GFR (Non-Af Amer) 94.8 ml/min BUN/Creatinine Ratio 28.4 H (10-20) Glucose 138 H (70-99) mg/dl POC Glucose (70-99) mg/dl Estimat Average Glucose mg/dl Hemoglobin A1c (4.5-5.6) % Calcium 9.4 (8.5-10.1) mg/dl Total Bilirubin 0.5 (0.2-1) mg/dl AST 16 (15-37) U/L ALT 19 (12-78) U/L Alkaline Phosphatase 103 (45-117) U/L Total Protein 8.5 H (6.4-8.2) gm/dl Albumin 3.7 (3.4-5.0) gm/dl Globulin 4.8 H (2.5-4.0) gm/dl Albumin/Globulin Ratio 0.8 L (0.9-2) COVID-19 Eval Order SARS-CoV-2 (PCR) (Negative) Blood Type Antibody Screen PG Care Time/CCT Total # of Minutes Spent Total Time Spent with Patient: Total time spent is greater than 50% in coordination of care (as documented) at patient's floor/unit and/or counseling patient: Coding Level of Care Code 41105 Subseq Hosp Care Lvl 3 Diagnoses Closed right hip fracture S72.001A Fall W19.XXXA Encounter type: initial encounter Diabetes type 2, controlled E11.9 Hypothyroidism, postablative E89.0 HTN (hypertension) I10 Hypertension type: essential hypertension Asthma J45.909 Ambulatory dysfunction R26.2 Hypoxia R09.02 DVT prophylaxis Z29.9 (1) Fall Encounter type: initial encounter Qualified Code(s): W19.XXXA - Unspecified fall, initial encounter (2) HTN (hypertension) Hypertension type: essential hypertension Qualified Code(s): I10 - Essential (primary) hypertension
[2021-03-31] MEDS: FUROSEMIDE 40 MG TAB PO SCH (12:10)
[2021-03-31] MEDS: POTASSIUM CHLORIDE PWD 20 MEQ PACK PO SCH (15:32)
[2021-03-31] MEDS: ACETAMINOPHEN W/CODEINE #3 1 TAB PO PRN (18:33)
[2021-03-31] MEDS: DOCUSATE SODIUM/SENNA 50/8.6MG TAB PO SCH ×2 (21:08→21:34)
[2021-03-31] MEDS: LOSARTAN POTASSIUM 50 MG TAB PO SCH (21:30)
[2021-04-01] MEDS: ACETAMINOPHEN 500 MG TAB PO PRN (00:59)
[2021-04-01] MEDS: ACETAMINOPHEN W/CODEINE #3 1 TAB PO PRN ×3 (01:02→21:00)
[2021-04-01 07:56] LABS: Basophils # (auto) 0.02 K/uL (0-0.2); Basophils % (auto) 0.2 %; Eosinophils # (auto) 0.36 K/uL (0-0.5); Eosinophils % (auto) 3.5 %; Hematocrit (blood only) 38.4 % (37-47); Hemoglobin 12.4 g/dL (12.0-16.0); Immature Granulocytes # (auto) 0.02 K/uL (0.00-0.02); Immature Granulocytes % (auto) 0.2 %; Lymphocytes # (auto) 1.01 K/uL (1.2-3.4); Lymphocytes % (auto) 9.7 %; Mean Corpuscular Hemoglobin 28.6 pg (25-34); Mean Corpuscular Hgb Conc 32.3 g/dL (32-36); Mean Corpuscular Volume 88.5 fL (80-100); Mean Platelet Volume 9.7 fL (7.4-10.4); Monocytes # (auto) 0.86 K/uL (0.11-0.59); Monocytes % (auto) 8.3 %; Neutrophils % (auto) 78.1 %; Platelet Count 232 K/uL (130-400); RDW Coefficient of Variation 13.8 % (11.5-14.5); RDW Standard Deviation 45.2 fL (36.4-46.3); Red Blood Count 4.34 M/uL (4.2-5.4); White Blood Count 10.37 K/uL (4.8-10.8)
[2021-04-01 08:28] LABS: Albumin Level 2.8 gm/dl (3.4-5.0); BUN Creatinine Ratio 25.7 (10-20); Creatinine Clr Calc Pharmacy 82.9 ml/min; Est GFR (African American) 102.6 ml/min; Est GFR (Non-African American) 88.5 ml/min; Potassium 3.5 mmol/L (3.5-5.1)
[2021-04-01 08:30] LABS: Albumin Globulin Ratio 0.7 (0.9-2); Bilirubin,Total 0.9 mg/dl (0.2-1); Globulin 4.2 gm/dl (2.5-4.0)
[2021-04-01] MEDS: amLODIPine BESYLATE 5 MG TAB PO SCH (09:07)
[2021-04-01] MEDS: MULTIVITAMIN TAB PO SCH (09:07)
[2021-04-01] MEDS: POTASSIUM CHLORIDE PWD 20 MEQ PACK PO SCH (09:08)
[2021-04-01] MEDS: FUROSEMIDE 40 MG TAB PO SCH (09:08)
[2021-04-01] MEDS: INSULIN DETEMIR FLEXPEN/FLEX TOUCH 100 UNITS/ML 3ML SC SCH (09:10)
[2021-04-01] MEDS: INSULIN ASPART 100 UNITS/ML 3 ML PEN SC SCH ×4 (09:11→21:52)
--- NOTE | 2021-04-01 10:20 | Orthopedic Progress Note ---
Date of Service April 01, 2021 Assessment & Plan (1) Closed right hip fracture: As patient wishes to continue with non-operative treatment: Has been removed from the add-on list. Resume diet. PT/OT evaluations to determine if she would be safe to return to the home. WBAT LLE, TTWB RLE, with assistance bed-chair. She understands that the may take 2 weeks to improve. Continue pain control. DVT Prophylaxis: TEDs and SCD. D/C planning Continue care per primary service. Admission and Anticipated Discharge Date Admission Date: March 30, 2021 Subjective "The Tylenol allowed me to sleep". Patient wants to be treated conservatively. Physical Exam Physical Exam: Patient resting in bed. Alert and Oriented x 3. RLE: Contracted at approximately 30 degrees of flexion. NV intact. Able to wiggle ankles and toes. Capillary refill brisk. Results & Data ([facility]) Vital Signs (Past 12 Hours) Vital Signs Temp Pulse Resp BP BP Pulse Ox 04/01/21 07:46 36.9 C 91 H 18 147/76 H 90 03/31/21 22:55 36.9 C 85 16 146/76 H 94 Laboratory Results 04/01/21 04/01/21 04/01/21 Range/Units 08:28 07:36 07:36 WBC 10.37 (4.8-10.8) K/uL RBC 4.34 (4.2-5.4) M/uL Hgb 12.4 (12.0-16.0) g/dL Hct 38.4 (37-47) % MCV 88.5 (80-100) fL MCH 28.6 (25-34) pg MCHC 32.3 (32-36) g/dL RDW Std Deviation 45.2 (36.4-46.3) fL RDW Coeff of Smith 13.8 (11.5-14.5) % Plt Count 232 (130-400) K/uL MPV 9.7 (7.4-10.4) fL Immature Gran % (Auto) 0.2 % Neut % (Auto) 78.1 % Lymph % (Auto) 9.7 % [place] % (Auto) 8.3 % Eos % (Auto) 3.5 % Baso % (Auto) 0.2 % Neut # (Auto) 8.10 H (1.4-6.5) K/uL Lymph # (Auto) 1.01 L (1.2-3.4) K/uL [place] # (Auto) 0.86 H (0.11-0.59) K/uL Eos # (Auto) 0.36 (0-0.5) K/uL Baso # (Auto) 0.02 (0-0.2) K/uL Immature Gran # (Auto) 0.02 (0.00-0.02) K/uL Sodium 136 (136-145) mmol/L Potassium 3.5 (3.5-5.1) mmol/L Chloride 102 (98-107) mmol/L Carbon Dioxide 29 (21-32) mmol/L Anion Gap 6.0 (3-11) BUN 16 (7-18) mg/dl Creatinine 0.64 (0.6-1.2) mg/dl Est Cr Clr Drug Dosing 82.9 ml/min Est GFR ( Amer) 102.6 ml/min Est GFR (Non-Af Amer) 88.5 ml/min BUN/Creatinine Ratio 25.7 H (10-20) Glucose 191 H (70-99) mg/dl POC Glucose 175 H (70-99) mg/dl Calcium 8.0 L (8.5-10.1) mg/dl Total Bilirubin 0.9 (0.2-1) mg/dl AST 10 L (15-37) U/L ALT 12 (12-78) U/L Alkaline Phosphatase 75 (45-117) U/L Total Protein 7.0 (6.4-8.2) gm/dl Albumin 2.8 L (3.4-5.0) gm/dl Globulin 4.2 H (2.5-4.0) gm/dl Albumin/Globulin Ratio 0.7 L (0.9-2) 03/31/21 03/31/21 03/31/21 Range/Units 20:42 16:59 11:15 WBC (4.8-10.8) K/uL RBC (4.2-5.4) M/uL Hgb (12.0-16.0) g/dL Hct (37-47) % MCV (80-100) fL MCH (25-34) pg MCHC (32-36) g/dL RDW Std Deviation (36.4-46.3) fL RDW Coeff of Smith (11.5-14.5) % Plt Count (130-400) K/uL MPV (7.4-10.4) fL Immature Gran % (Auto) % Neut % (Auto) % Lymph % (Auto) % [place] % (Auto) % Eos % (Auto) % Baso % (Auto) % Neut # (Auto) (1.4-6.5) K/uL Lymph # (Auto) (1.2-3.4) K/uL [place] # (Auto) (0.11-0.59) K/uL Eos # (Auto) (0-0.5) K/uL Baso # (Auto) (0-0.2) K/uL Immature Gran # (Auto) (0.00-0.02) K/uL Sodium (136-145) mmol/L Potassium (3.5-5.1) mmol/L Chloride (98-107) mmol/L Carbon Dioxide (21-32) mmol/L Anion Gap (3-11) BUN (7-18) mg/dl Creatinine (0.6-1.2) mg/dl Est Cr Clr Drug Dosing ml/min Est GFR ( Amer) ml/min Est GFR (Non-Af Amer) ml/min BUN/Creatinine Ratio (10-20) Glucose (70-99) mg/dl POC Glucose 180 H 202 H 148 H (70-99) mg/dl Calcium (8.5-10.1) mg/dl Total Bilirubin (0.2-1) mg/dl AST (15-37) U/L ALT (12-78) U/L Alkaline Phosphatase (45-117) U/L Total Protein (6.4-8.2) gm/dl Albumin (3.4-5.0) gm/dl Globulin (2.5-4.0) gm/dl Albumin/Globulin Ratio (0.9-2)
[2021-04-01] MEDS: LEVOTHYROXINE SODIUM 125 MCG TABLET PO SCH (10:29)
--- NOTE | 2021-04-01 18:11 | Hospitalist Progress Note ---
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 Is normally wheelchair bound with RLE contracture but does transfer from wheelchair to her car and drive to appointments. SHe uses her legs to scoot around in wheelchair She charles now decided not to have surgery and to go a nonsurgical approach -can TTWB on right -continue APAP, T#3 prn, tramadol prn -bowel regimen APpreciate Ortho consult PT/OT evals and needs rehab placement (2) Fall: Mechanical fall as she was dressed got tangled up as she was getting up out of her wheelchair. no events on tele, did not have LOC (3) Diabetes type 2, controlled: with hyperglycemia now that is eating and had reduced Levemir dosin while NPO -increase back to usual Levemir 30 units, tighten down Novolog sliding scale now -give Levemir 10 units x 1 this evening Placed on Accu-Cheks before meals and at bedtime with NovoLog coverage per scale Check hemoglobin [id number] at 8.8% Hold Metformin while inpatient (4) Hypothyroidism, postablative: Continue levothyroxine 125 mcg daily TSH is always elevated in past labs and most recently was 9 in 11/2020 check TSH in AM May be poor absorption given previous volume overload (5) HTN (hypertension): Continue amlodipine and losartan with hold parameters continue furosemide daily (6) Asthma: DuoNebs every 2 hours as needed no acute issues (7) Ambulatory dysfunction: as above, 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 Reports codeine makes her drowsy but doesn't do a lot for the pain. Denies SOB or chest pain. No nausea and is madi po. Has not had a BM yet and is fearful of having to get on a bedpan. Discussed her care with Ortho Review of Systems Review of Systems: All systems reviewed & are unremarkable except as noted in HPI & below Physical Exam Constitutional: WD/WN, vitals as above Eyes: + anicteric sclerae Neck: trachea midline, no thyromegaly Respiratory: normal respiratory effort, lungs clear to auscultation Cardiovascular: RRR, no murmur, no edema Chest (Breasts): Chest: normal inspection of chest Gastrointestinal (Abdomen): normal bowel sounds, soft, nontender, no hepatosplenomegaly Musculoskeletal: Extremities: extremities normal to inspection; no cyanosis and no clubbing Skin: no rashes, warm and dry Neurologic: moves all extremities and awake; no focal motor deficits Psychiatric: A+Ox3, euthymic affect Lymphatic: no lymphedema Results & Data Results & Data ([facility]) Vital Signs (Past 12 Hours) Vital Signs Temp Pulse Resp BP BP Pulse Ox 04/01/21 15:25 37.1 C 97 H 20 149/74 H 91 04/01/21 07:46 36.9 C 91 H 18 147/76 H 90 Laboratory Results 04/01/21 04/01/21 04/01/21 Range/Units 16:58 12:21 08:28 WBC (4.8-10.8) K/uL RBC (4.2-5.4) M/uL Hgb (12.0-16.0) g/dL Hct (37-47) % MCV (80-100) fL MCH (25-34) pg MCHC (32-36) g/dL RDW Std Deviation (36.4-46.3) fL RDW Coeff of Smith (11.5-14.5) % Plt Count (130-400) K/uL MPV (7.4-10.4) fL Immature Gran % (Auto) % Neut % (Auto) % Lymph % (Auto) % Drew % (Auto) % Eos % (Auto) % Baso % (Auto) % Neut # (Auto) (1.4-6.5) K/uL Lymph # (Auto) (1.2-3.4) K/uL Drew # (Auto) (0.11-0.59) K/uL Eos # (Auto) (0-0.5) K/uL Baso # (Auto) (0-0.2) K/uL Immature Gran # (Auto) (0.00-0.02) K/uL Sodium (136-145) mmol/L Potassium (3.5-5.1) mmol/L Chloride (98-107) mmol/L Carbon Dioxide (21-32) mmol/L Anion Gap (3-11) BUN (7-18) mg/dl Creatinine (0.6-1.2) mg/dl Est Cr Clr Drug Dosing ml/min Est GFR ( Amer) ml/min Est GFR (Non-Af Amer) ml/min BUN/Creatinine Ratio (10-20) Glucose (70-99) mg/dl POC Glucose 291 H 214 H 175 H (70-99) mg/dl Calcium (8.5-10.1) mg/dl Total Bilirubin (0.2-1) mg/dl AST (15-37) U/L ALT (12-78) U/L Alkaline Phosphatase (45-117) U/L Total Protein (6.4-8.2) gm/dl Albumin (3.4-5.0) gm/dl Globulin (2.5-4.0) gm/dl Albumin/Globulin Ratio (0.9-2) 04/01/21 04/01/21 03/31/21 Range/Units 07:36 07:36 20:42 WBC 10.37 (4.8-10.8) K/uL RBC 4.34 (4.2-5.4) M/uL Hgb 12.4 (12.0-16.0) g/dL Hct 38.4 (37-47) % MCV 88.5 (80-100) fL MCH 28.6 (25-34) pg MCHC 32.3 (32-36) g/dL RDW Std Deviation 45.2 (36.4-46.3) fL RDW Coeff of Smith 13.8 (11.5-14.5) % Plt Count 232 (130-400) K/uL MPV 9.7 (7.4-10.4) fL Immature Gran % (Auto) 0.2 % Neut % (Auto) 78.1 % Lymph % (Auto) 9.7 % Drew % (Auto) 8.3 % Eos % (Auto) 3.5 % Baso % (Auto) 0.2 % Neut # (Auto) 8.10 H (1.4-6.5) K/uL Lymph # (Auto) 1.01 L (1.2-3.4) K/uL Drew # (Auto) 0.86 H (0.11-0.59) K/uL Eos # (Auto) 0.36 (0-0.5) K/uL Baso # (Auto) 0.02 (0-0.2) K/uL Immature Gran # (Auto) 0.02 (0.00-0.02) K/uL Sodium 136 (136-145) mmol/L Potassium 3.5 (3.5-5.1) mmol/L Chloride 102 (98-107) mmol/L Carbon Dioxide 29 (21-32) mmol/L Anion Gap 6.0 (3-11) BUN 16 (7-18) mg/dl Creatinine 0.64 (0.6-1.2) mg/dl Est Cr Clr Drug Dosing 82.9 ml/min Est GFR ( Amer) 102.6 ml/min Est GFR (Non-Af Amer) 88.5 ml/min BUN/Creatinine Ratio 25.7 H (10-20) Glucose 191 H (70-99) mg/dl POC Glucose 180 H (70-99) mg/dl Calcium 8.0 L (8.5-10.1) mg/dl Total Bilirubin 0.9 (0.2-1) mg/dl AST 10 L (15-37) U/L ALT 12 (12-78) U/L Alkaline Phosphatase 75 (45-117) U/L Total Protein 7.0 (6.4-8.2) gm/dl Albumin 2.8 L (3.4-5.0) gm/dl Globulin 4.2 H (2.5-4.0) gm/dl Albumin/Globulin Ratio 0.7 L (0.9-2) PG Care Time/CCT Total # of Minutes Spent Total Time Spent with Patient: Total time spent is greater than 50% in coordination of care (as documented) at patient's floor/unit and/or counseling patient: Coding Level of Care Code 44377 Subseq Hosp Care Lvl 2 Diagnoses Closed right hip fracture S72.001A Fall W19.XXXA Encounter type: initial encounter Diabetes type 2, controlled E11.9 Hypothyroidism, postablative E89.0 HTN (hypertension) I10 Hypertension type: essential hypertension Asthma J45.909 Ambulatory dysfunction R26.2 Hypoxia R09.02 Diastolic heart failure I50.30 DVT prophylaxis Z29.9 (1) Fall Encounter type: initial encounter Qualified Code(s): W19.XXXA - Unspecified fall, initial encounter (2) HTN (hypertension) Hypertension type: essential hypertension Qualified Code(s): I10 - Essential (primary) hypertension
[2021-04-01] MEDS ORDERED: POTASSIUM CHLORIDE CRTAB 20 MEQ TABCR PO STA (18:16)
[2021-04-01] MEDS ORDERED: INSULIN DETEMIR FLEXPEN/FLEX TOUCH 100 UNITS/ML 3ML SC ONE (18:18)
[2021-04-01] MEDS ORDERED: ENOXAPARIN INJ 40 MG/0.4 ML SYR SQ SCH (18:30)
[2021-04-01] MEDS: DOCUSATE SODIUM/SENNA 50/8.6MG TAB PO SCH (20:56)
[2021-04-01] MEDS: LOSARTAN POTASSIUM 50 MG TAB PO SCH (21:00)
[2021-04-02] MEDS: ACETAMINOPHEN W/CODEINE #3 1 TAB PO PRN ×3 (05:56→18:08)
[2021-04-02 06:42] LABS: BUN Creatinine Ratio 26.6 (10-20); Calcium 8.2 mg/dl (8.5-10.1); Est GFR (African American) 105.4 ml/min; Est GFR (Non-African American) 90.9 ml/min; Potassium 3.8 mmol/L (3.5-5.1)
[2021-04-02 06:53] LABS: Thyroid Stimulating Hormone 5.11 uIu/ml (0.300-4.500)
[2021-04-02] MEDS: LEVOTHYROXINE SODIUM 125 MCG TABLET PO SCH (07:17)
[2021-04-02] MEDS: amLODIPine BESYLATE 5 MG TAB PO SCH (08:57)
[2021-04-02] MEDS: FUROSEMIDE 40 MG TAB PO SCH (08:59)
[2021-04-02] MEDS: MULTIVITAMIN TAB PO SCH (08:59)
[2021-04-02] MEDS: POTASSIUM CHLORIDE PWD 20 MEQ PACK PO SCH (08:59)
[2021-04-02] MEDS ORDERED: INSULIN DETEMIR FLEXPEN/FLEX TOUCH 100 UNITS/ML 3ML SC SCH (09:00)
[2021-04-02] MEDS: INSULIN ASPART 100 UNITS/ML 3 ML PEN SC SCH ×4 (09:02→21:58)
--- NOTE | 2021-04-02 09:25 | Orthopedic Progress Note ---
Date of Service April 02, 2021 Assessment & Plan (1) Closed right hip fracture: Patient wishes to continue with non-operative treatment: Resume diet. PT/OT evaluations to determine if she would be safe to return to the home. WBAT LLE, TTWB RLE, with assistance bed-chair. She understands that the may take 2 weeks to improve. Continue pain control. DVT Prophylaxis: TEDs and SCD, d/w primary service ok to use Lovenox 40 mg subcutaneous. D/C planning, awaiting available bed. If d/c locally will follow-up in 2 weeks wit x-rays. If d/c further away closer to family will need ortho f/u closer to her location in same time frame. Continue care per primary service. Admission and Anticipated Discharge Date Admission Date: March 30, 2021 Subjective Pain is getting better Physical Exam Physical Exam: Patient resting in bed. Alert and Oriented x 3. RLE: Contracted at approximately 30 degrees of flexion. NV intact. Able to wiggle ankles and toes. Capillary refill brisk. Calf soft and non- tender. RUE: actively moving elbow and shoulder, arm above her head. Results & Data ([facility]) Vital Signs (Past 12 Hours) Vital Signs Temp Pulse Resp BP Pulse Ox 04/02/21 07:41 37 C 94 H 20 157/79 H 93 04/01/21 22:45 37.0 C 89 16 134/72 94
--- NOTE | 2021-04-02 13:36 | Hospitalist Progress Note ---
Date of Service April 02, 2021 Assessment & Plan (1) Closed right hip fracture: Closed right hip fracture status post mechanical fall- Age related osteoporotic closed right femoral neck fracture in setting of ground level fall. Is normally wheelchair bound with RLE contracture but does transfer from wheelchair to her car and drive to appointments. SHe uses her legs to scoot around in wheelchair She has now decided not to have surgery and to go a nonsurgical approach -can TTWB on right -continue APAP, T#3 prn, tramadol prn-encouraged her to take the T#3 and said we would watch and make sure she is not becoming "addicted" to opioids She continues with significant pain with any movement -bowel regimen APpreciate Ortho consult-f/u with Ortho in 2 weeks closer to where her SNF will be as she is going to [place] (2) Fall: Mechanical fall as she was dressed got tangled up as she was getting up out of her wheelchair. no events on tele, did not have LOC (3) Diabetes type 2, controlled: with hyperglycemia continuing -increase Levemir to 35 units, tighten down Novolog sliding scale now again today Placed on Accu-Cheks before meals and at bedtime with NovoLog coverage per scale Check hemoglobin [id number] at 8.8% Hold Metformin while inpatient (4) Hypothyroidism, postablative: Continue levothyroxine 125 mcg daily TSH is always elevated in past labs and most recently was 9 in 11/2020 TSH now down to 5.1 which is improved May be poor absorption given previous volume overload (5) HTN (hypertension): Continue amlodipine and losartan with hold parameters continue furosemide daily (6) Asthma: DuoNebs every 2 hours as needed no acute issues (7) Ambulatory dysfunction: as above, 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 SHe is still fearful of getting "addicted" to opioids and is really trying not to take them. No other concerns Review of Systems Review of Systems: All systems reviewed & are unremarkable except as noted in HPI & below Physical Exam Constitutional: WD/WN, vitals as above Eyes: + anicteric sclerae Neck: trachea midline, no thyromegaly Respiratory: normal respiratory effort, lungs clear to auscultation Cardiovascular: RRR, no murmur, no edema Chest (Breasts): Chest: normal inspection of chest Gastrointestinal (Abdomen): normal bowel sounds, soft, nontender, no hepatosplenomegaly Musculoskeletal: Extremities: + extremities abnormal to inspection (flexion contracture RLE), no cyanosis and no clubbing Skin: no rashes, warm and dry Neurologic: moves all extremities and awake; no focal motor deficits Psychiatric: Orientation: alert and oriented x 3 Affect: + tearful affect Lymphatic: no lymphedema Results & Data Results & Data ([facility]) Vital Signs (Past 12 Hours) Vital Signs Temp Pulse Resp BP Pulse Ox 04/02/21 07:41 37 C 94 H 20 157/79 H 93 Laboratory Results 04/02/21 04/02/21 04/02/21 Range/Units 11:53 08:18 06:07 Sodium 137 (136-145) mmol/L Potassium 3.8 (3.5-5.1) mmol/L Chloride 102 (98-107) mmol/L Carbon Dioxide 31 (21-32) mmol/L Anion Gap 4.0 (3-11) BUN 16 (7-18) mg/dl Creatinine 0.59 L (0.6-1.2) mg/dl Est Cr Clr Drug Dosing 90.0 ml/min Est GFR ( Amer) 105.4 ml/min Est GFR (Non-Af Amer) 90.9 ml/min BUN/Creatinine Ratio 26.6 H (10-20) Glucose 192 H (70-99) mg/dl POC Glucose 198 H 191 H (70-99) mg/dl Calcium 8.2 L (8.5-10.1) mg/dl Magnesium 2.0 (1.8-2.4) mg/dl TSH 5.110 H (0.300-4.500) uIu/ml 04/01/21 04/01/21 Range/Units 20:24 16:58 Sodium (136-145) mmol/L Potassium (3.5-5.1) mmol/L Chloride (98-107) mmol/L Carbon Dioxide (21-32) mmol/L Anion Gap (3-11) BUN (7-18) mg/dl Creatinine (0.6-1.2) mg/dl Est Cr Clr Drug Dosing ml/min Est GFR ( Amer) ml/min Est GFR (Non-Af Amer) ml/min BUN/Creatinine Ratio (10-20) Glucose (70-99) mg/dl POC Glucose 287 H 291 H (70-99) mg/dl Calcium (8.5-10.1) mg/dl Magnesium (1.8-2.4) mg/dl TSH (0.300-4.500) uIu/ml PG Care Time/CCT Total # of Minutes Spent Total Time Spent with Patient: Total time spent is greater than 50% in coordination of care (as documented) at patient's floor/unit and/or counseling patient: Coding Level of Care Code 52116 Subseq Hosp Care Lvl 2 Diagnoses Closed right hip fracture S72.001A Fall W19.XXXA Encounter type: initial encounter Diabetes type 2, controlled E11.9 Hypothyroidism, postablative E89.0 HTN (hypertension) I10 Hypertension type: essential hypertension Asthma J45.909 Ambulatory dysfunction R26.2 Hypoxia R09.02 Diastolic heart failure I50.30 DVT prophylaxis Z29.9 (1) Fall Encounter type: initial encounter Qualified Code(s): W19.XXXA - Unspecified fall, initial encounter (2) HTN (hypertension) Hypertension type: essential hypertension Qualified Code(s): I10 - Essential (primary) hypertension
[2021-04-02] MEDS: ENOXAPARIN INJ 40 MG/0.4 ML SYR SQ SCH (14:30)
[2021-04-02] MEDS: LOSARTAN POTASSIUM 50 MG TAB PO SCH (21:56)
[2021-04-02] MEDS: DOCUSATE SODIUM/SENNA 50/8.6MG TAB PO SCH (21:57)
[2021-04-03] MEDS: ACETAMINOPHEN W/CODEINE #3 1 TAB PO PRN ×3 (03:48→13:18)
[2021-04-03] MEDS: LEVOTHYROXINE SODIUM 125 MCG TABLET PO SCH (06:00)
[2021-04-03] MEDS: FUROSEMIDE 40 MG TAB PO SCH (09:48)
[2021-04-03] MEDS: POTASSIUM CHLORIDE PWD 20 MEQ PACK PO SCH (09:48)
[2021-04-03] MEDS: amLODIPine BESYLATE 5 MG TAB PO SCH (09:48)
[2021-04-03] MEDS: MULTIVITAMIN TAB PO SCH (09:48)
[2021-04-03] MEDS: INSULIN ASPART 100 UNITS/ML 3 ML PEN SC SCH ×4 (10:10→21:52)
[2021-04-03] MEDS: INSULIN DETEMIR FLEXPEN/FLEX TOUCH 100 UNITS/ML 3ML SC SCH (10:13)
[2021-04-03] MEDS: ENOXAPARIN INJ 40 MG/0.4 ML SYR SQ SCH (10:13)
--- NOTE | 2021-04-03 10:59 | Orthopedic Progress Note ---
Date of Service April 03, 2021 Assessment & Plan (1) Closed right hip fracture: Patient was seen in her room. She was reassured that I will clarify with physical therapy about reasonable activity. She was reassured that adequate instructions and communication would occur with any new facility that she may be transferred to. After review of her chart, it appears the transportation seems to be an issue. She may or may not depart today. Continue with PT. Apply ice to the hip as needed for discomfort. Continue with PT/OT. I did speak with her physical therapist. Therapy has been performed with her left leg as well as her upper extremities. There is been no direct therapy with her right hip. Her complaints stem from transitioning in bed as well as sitting up. These are reasonable activities and may be continued. She will continue to be nonweightbearing on the right leg. We will continue to follow while she is hospitalized. Admission and Anticipated Discharge Date Admission Date: March 30, 2021 Subjective Patient is seen in her room this morning. She is somewhat upset. Patient states she is confused as to how she is supposed to move with a broken hip. She verbalizes frustration with physical therapy. She thinks that they are putting her through exercises that she is not supposed to do. She is also anxious and concerned about transport to another facility. She is worried about any bumps that may occur. She is also worried about adequate clear instructions to her new therapy group. She denies any pain when laying still. She notes occasional sharp pain with shifting in bed or with therapy. No chest pain or shortness of breath. No other areas of discomfort. Physical Exam Physical Exam: General: Well-developed, well-nourished, elderly white female, in no acute distress. Visibly anxious. Alert and oriented. Conversive. Skin: Warm and dry with fair turgor. No rashes. She has heel protection in place on the right leg. Musculoskeletal: Patient has intact motor function of her left leg. She states her right knee does not move. 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 She has intact motor function of her right ankle. Gentle limited motion of the right hip for flexion as well as abduction and adduction causes no significant pain. Rotation was not performed. Neurologic: Gross sensation is intact across both lower extremities by soft touch. Results & Data ([facility]) Vital Signs (Past 12 Hours) Vital Signs Temp Pulse Resp BP Pulse Ox 04/03/21 07:32 37.1 C 83 20 146/72 H 96 04/02/21 23:08 37.4 C 88 18 146/73 H 96
[2021-04-03] MEDS ORDERED: HYDROCODONE/ACETAMOPHEN 5/325MG TAB PO PRN ×3 (14:52→17:41)
[2021-04-03] MEDS ORDERED: EPINEPHrine ADULT AUTO-INJECT 0.3 MG SYR IM PRN (17:43)
--- NOTE | 2021-04-03 17:50 | Hospitalist Progress Note ---
Date of Service April 03, 2021 Assessment & Plan (1) Closed right hip fracture: Closed right hip fracture status post mechanical fall- Age related osteoporotic closed right femoral neck fracture in setting of ground level fall. Is normally wheelchair bound with RLE contracture but does transfer from wheelchair to her car and drive to appointments. SHe uses her legs to scoot around in wheelchair She has now decided not to have surgery and to go a nonsurgical approach -can TTWB on right -still with a lot of pain, T#3 not helping, tramadol not helping -will trial hydrocodone today and added epi pen prn allergic reaction given her fear of allergic reaction -continue APAP -bowel regimen-add on daily Miralax APpreciate Ortho consult-f/u with Ortho in 2 weeks closer to where her SNF will be as she is going to [place] (2) Fall: Mechanical fall as she was dressed got tangled up as she was getting up out of her wheelchair. no events on tele, did not have LOC (3) Diabetes type 2, controlled: with hyperglycemia now improved -continue Levemir to 35 units, Novolog sliding scale Accu-Cheks before meals and at bedtime with NovoLog coverage per scale Check hemoglobin [id number] at 8.8% Hold Metformin while inpatient (4) Hypothyroidism, postablative: Continue levothyroxine 125 mcg daily TSH is always elevated in past labs and most recently was 9 in 11/2020 TSH now down to 5.1 which is improved May be poor absorption given previous volume overload (5) HTN (hypertension): Continue amlodipine and losartan with hold parameters continue furosemide daily (6) Asthma: DuoNebs every 2 hours as needed no acute issues (7) Ambulatory dysfunction: as above, 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 Otherwise, denies CP or SOB. Has not had a BM the whole admission. Denies abd pain Review of Systems Review of Systems: All systems reviewed & are unremarkable except as noted in HPI & below Physical Exam Constitutional: WD/WN, vitals as above Eyes: + anicteric sclerae Neck: trachea midline, no thyromegaly Respiratory: normal respiratory effort, lungs clear to auscultation Cardiovascular: RRR, no murmur, no edema Chest (Breasts): Chest: normal inspection of chest Gastrointestinal (Abdomen): normal bowel sounds, soft, nontender, no hepatosplenomegaly Musculoskeletal: Extremities: + extremities abnormal to inspection (flexion contracture RLE), no cyanosis and no clubbing Skin: no rashes, warm and dry Neurologic: moves all extremities and awake; no focal motor deficits Psychiatric: Orientation: alert and oriented x 3 Mood: + anxious mood Lymphatic: no lymphedema Results & Data Results & Data ([facility]) Vital Signs (Past 12 Hours) Vital Signs Temp Pulse Pulse Resp BP Pulse Ox 04/03/21 16:00 37.3 C 98 H 18 146/68 H 92 04/03/21 07:32 37.1 C 83 20 146/72 H 96 Laboratory Results 04/03/21 04/03/21 04/03/21 Range/Units 17:30 12:30 08:31 POC Glucose 144 H 161 H 177 H (70-99) mg/dl 04/02/21 Range/Units 20:25 POC Glucose 152 H (70-99) mg/dl PG Care Time/CCT Total # of Minutes Spent Total Time Spent with Patient: Total time spent is greater than 50% in coordination of care (as documented) at patient's floor/unit and/or counseling patient: Coding Level of Care Code 92633 Subseq Hosp Care Lvl 3 Diagnoses Closed right hip fracture S72.001A Fall W19.XXXA Encounter type: initial encounter Diabetes type 2, controlled E11.9 Hypothyroidism, postablative E89.0 HTN (hypertension) I10 Hypertension type: essential hypertension Asthma J45.909 Ambulatory dysfunction R26.2 Hypoxia R09.02 Diastolic heart failure I50.30 DVT prophylaxis Z29.9 (1) HTN (hypertension) Hypertension type: essential hypertension Qualified Code(s): I10 - Essential (primary) hypertension (2) Fall Encounter type: initial encounter Qualified Code(s): W19.XXXA - Unspecified fall, initial encounter
--- NOTE | 2021-04-03 18:09 | Orthopedic Progress Note ---
Date of Service April 03, 2021 Assessment & Plan (1) Closed right hip fracture: Patient continue to elect conservative treatment. Resume diet. PT/OT evaluations to determine if she would be safe to return to the home. WBAT LLE, TTWB RLE, with assistance bed-chair. She understands that the may take 2 weeks for the pain to improve. Continue pain control. DVT Prophylaxis: TEDs and SCD, d/w primary service ok to use Lovenox 40 mg subcutaneous. D/C planning, bed available in [place] tomorrow. Family will need ortho f/u closer to her location in 2 weeks. Continue care per primary service. Admission and Anticipated Discharge Date Admission Date: March 30, 2021 Subjective Feeling better than yesterday. Was able to move to a seated position at the side of the bed today. Physical Exam Physical Exam: Patient resting in bed. Alert and Oriented x 3. Son is in the room RLE: Contracted at approximately 30 degrees of flexion. NV intact. Able to wiggle ankles and toes. Capillary refill brisk. Calf soft and non- tender. Results & Data ([facility]) Vital Signs (Past 12 Hours) Vital Signs Temp Pulse Pulse Resp BP Pulse Ox 04/03/21 16:00 37.3 C 98 H 18 146/68 H 92 04/03/21 07:32 37.1 C 83 20 146/72 H 96
[2021-04-03] MEDS: POLYETHYLENE (MIRALAX) 17 GM PACK PO SCH (20:00)
[2021-04-03] MEDS: DOCUSATE SODIUM/SENNA 50/8.6MG TAB PO SCH (21:22)
[2021-04-03] MEDS: LOSARTAN POTASSIUM 50 MG TAB PO SCH (21:23)
[2021-04-04] MEDS: ACETAMINOPHEN W/CODEINE #3 1 TAB PO PRN (05:45)
[2021-04-04] MEDS: LEVOTHYROXINE SODIUM 125 MCG TABLET PO SCH (06:27)
[2021-04-04] MEDS: ENOXAPARIN INJ 40 MG/0.4 ML SYR SQ SCH (07:59)
[2021-04-04] MEDS: MULTIVITAMIN TAB PO SCH (07:59)
[2021-04-04] MEDS: amLODIPine BESYLATE 5 MG TAB PO SCH (08:00)
[2021-04-04] MEDS: POTASSIUM CHLORIDE PWD 20 MEQ PACK PO SCH (08:01)
[2021-04-04] MEDS: INSULIN DETEMIR FLEXPEN/FLEX TOUCH 100 UNITS/ML 3ML SC SCH (08:01)
[2021-04-04] MEDS: POLYETHYLENE (MIRALAX) 17 GM PACK PO SCH (08:12)
[2021-04-04] MEDS: FUROSEMIDE 40 MG TAB PO SCH (08:13)
[2021-04-04] MEDS: INSULIN ASPART 100 UNITS/ML 3 ML PEN SC SCH (09:19)
--- NOTE | 2021-04-04 09:34 | Discharge Summary ---
Date of Service April 04, 2021 Admission HPI Per Admitting Provider The patient is a 75-year-old female with a past medical history including asthma, diabetes mellitus type 2, post ablative hypothyroidism, hypertension, CHF, and wheelchair-bound. She reports that she was getting up out of her wheelchair, and somehow her dress got caught in a wheelchair, she fell backwards, hitting her head, and right side of her body. She developed immediate discomfort in the right hip in particular, and was brought to the emergency department for assessment. Principal Diagnosis Right hip fracture Discharge Exam Constitutional WD/WN, vitals as above Eyes + anicteric sclerae Neck trachea midline, no thyromegaly Respiratory normal respiratory effort, lungs clear to auscultation Cardiovascular RRR, no murmur, no edema Chest (Breasts) Chest: normal inspection of chest Gastrointestinal (Abdomen) normal bowel sounds, soft, nontender, no hepatosplenomegaly Musculoskeletal Extremities: + extremities abnormal to inspection (flexion contracture RLE), no cyanosis and no clubbing Skin no rashes, warm and dry Neurologic moves all extremities and awake; no focal motor deficits Psychiatric Orientation: alert and oriented x 3 Mood: + anxious mood Lymphatic no lymphedema Discharge Data Allergies Allergy/AdvReac Type Severity Reaction Status Date / Time aspirin Allergy Severe HIVES; Verified 03/30/21 21:43 DIFFICULTY BREATHING Penicillins Allergy Severe HIVES AND Verified 03/30/21 21:43 DIFFICULTY BREATHING Benzodiazepines Allergy Mild Unknown Verified 03/30/21 21:43 doxycycline Allergy Mild Unknown Verified 03/30/21 21:43 Sulfa (Sulfonamide Allergy Mild Unknown Verified 03/30/21 21:43 Antibiotics) aspartame Allergy Unknown Unknown Verified 03/30/21 21:43 diltiazem Allergy Unknown UNKNOWN Verified 03/30/21 21:43 REACTION epinephrine Allergy Unknown UNKNOWN Verified 03/30/21 21:43 REACTION melon Allergy Unknown Unknown Verified 03/30/21 21:43 moxifloxacin Allergy Unknown UNKNOWN Verified 03/30/21 21:43 REACTION nifedipine Allergy Unknown UNKNOWN Verified 03/30/21 21:43 REACTION simvastatin Allergy Unknown UNKNOWN Verified 03/30/21 21:43 REACTION PER PT vancomycin Allergy Unknown UNKNOWN Verified 03/30/21 21:43 REACTION colchicine AdvReac Intermediate Difficulty Verified 03/30/21 21:43 Breathing Consultations 03/30/21 22:33 ED Decision to Admit Stat 03/31/21 08:30 Consult Orthopedic Surgery Routine 03/31/21 10:39 Consult Anesthesiology Routine 04/03/21 17:58 Burn CD for patient Routine Procedures Performed Operation Date: 04/01/21 07:00 <No data on this case meets the specified criteria> Ordered Studies 03/30/21 20:49 CT cervical spine wo con Urgent CT head/brain wo con Urgent 03/30/21 21:27 CT hip RT wo con Urgent Laboratory Results WBC 10.37 K/uL (4.8-10.8) 04/01/21 07:36 RBC 4.34 M/uL (4.2-5.4) 04/01/21 07:36 Hgb 12.4 g/dL (12.0-16.0) 04/01/21 07:36 Hct 38.4 % (37-47) 04/01/21 07:36 MCV 88.5 fL (80-100) 04/01/21 07:36 MCH 28.6 pg (25-34) 04/01/21 07:36 MCHC 32.3 g/dL (32-36) 04/01/21 07:36 RDW Std Deviation 45.2 fL (36.4-46.3) 04/01/21 07:36 RDW Coeff of Smith 13.8 % (11.5-14.5) 04/01/21 07:36 Plt Count 232 K/uL (130-400) 04/01/21 07:36 MPV 9.7 fL (7.4-10.4) 04/01/21 07:36 Immature Gran % (Auto) 0.2 % 04/01/21 07:36 Neut % (Auto) 78.1 % 04/01/21 07:36 Lymph % (Auto) 9.7 % 04/01/21 07:36 [place] % (Auto) 8.3 % 04/01/21 07:36 Eos % (Auto) 3.5 % 04/01/21 07:36 Baso % (Auto) 0.2 % 04/01/21 07:36 Neut # (Auto) 8.10 K/uL (1.4-6.5) H 04/01/21 07:36 Lymph # (Auto) 1.01 K/uL (1.2-3.4) L 04/01/21 07:36 [place] # (Auto) 0.86 K/uL (0.11-0.59) H 04/01/21 07:36 Eos # (Auto) 0.36 K/uL (0-0.5) 04/01/21 07:36 Baso # (Auto) 0.02 K/uL (0-0.2) 04/01/21 07:36 Immature Gran # (Auto) 0.02 K/uL (0.00-0.02) 04/01/21 07:36 Sodium 137 mmol/L (136-145) 04/02/21 06:07 Potassium 3.8 mmol/L (3.5-5.1) 04/02/21 06:07 Chloride 102 mmol/L (98-107) 04/02/21 06:07 Carbon Dioxide 31 mmol/L (21-32) 04/02/21 06:07 Anion Gap 4.0 (3-11) 04/02/21 06:07 BUN 16 mg/dl (7-18) 04/02/21 06:07 Creatinine 0.59 mg/dl (0.6-1.2) L 04/02/21 06:07 Est Cr Clr Drug Dosing 90.0 ml/min 04/02/21 06:07 Est GFR ( Amer) 105.4 ml/min 04/02/21 06:07 Est GFR (Non-Af Amer) 90.9 ml/min 04/02/21 06:07 BUN/Creatinine Ratio 26.6 (10-20) H 04/02/21 06:07 Glucose 192 mg/dl (70-99) H 04/02/21 06:07 POC Glucose 130 mg/dl (70-99) H 04/04/21 08:27 Estimat Average Glucose 206 mg/dl 03/31/21 06:46 Hemoglobin A1c 8.8 % (4.5-5.6) H 03/31/21 06:46 Calcium 8.2 mg/dl (8.5-10.1) L 04/02/21 06:07 Magnesium 2.0 mg/dl (1.8-2.4) 04/02/21 06:07 Total Bilirubin 0.9 mg/dl (0.2-1) 04/01/21 07:36 AST 10 U/L (15-37) L 04/01/21 07:36 ALT 12 U/L (12-78) 04/01/21 07:36 Alkaline Phosphatase 75 U/L (45-117) 04/01/21 07:36 Total Protein 7.0 gm/dl (6.4-8.2) 04/01/21 07:36 Albumin 2.8 gm/dl (3.4-5.0) L 04/01/21 07:36 Globulin 4.2 gm/dl (2.5-4.0) H 04/01/21 07:36 Albumin/Globulin Ratio 0.7 (0.9-2) L 04/01/21 07:36 TSH 5.110 uIu/ml (0.300-4.500) H 04/02/21 06:07 COVID-19 Eval Order Covid19 at [facility] 03/31/21 00:07 SARS-CoV-2 (PCR) NEGATIVE (Negative) 03/31/21 00:07 Blood Type O Positive 03/31/21 06:46 Antibody Screen NEGATIVE 03/31/21 06:[address] 03/30/21 20:49 CT OF THE CERVICAL SPINE WITHOUT CONTRAST CLINICAL HISTORY: Fall. COMPARISON STUDY: Cervical spine CT December 16, 2020. TECHNIQUE: Helical axial images of the cervical spine were obtained without IV contrast. Sagittal and coronal reconstructions were viewed. Automated exposure control was utilized for the study. A dose lowering technique was utilized adhering to the principles of ALARA. FINDINGS: Alignment of the cervical spine is anatomic. Vertebral body heights are maintained. No acute cervical spine fracture or subluxation is present. There is no prevertebral edema. Facet joints are intact. Moderate multilevel facet arthrosis is present. Degenerative changes at the C1-C2 articulation are noted. Appearance of the cervical spine is similar to prior exam. IMPRESSION: No acute cervical spine fracture or subluxation. ACT 112: Negative or not required by law. Electronically signed by: Vicente Shrestha M.D. 03/31/2021 7:25 AM Elbow X-Ray 03/30/21 20:49 RIGHT ELBOW 3 VIEWS HISTORY: r elbow pain COMPARISON: None. FINDINGS: There is no fracture or dislocation. Mild posterior soft tissue swelling. No definite joint effusion. Although, the lateral view is suboptimal to assess for a joint effusion. No radiopaque foreign bodies. IMPRESSION: No definite fracture or dislocation within the right elbow. ACT 112: Negative or not required by law. Electronically signed by: Edgar Meek M.D. 03/31/2021 7:[address] 03/30/21 20:[address] DOSE: HISTORY: fall hit head TECHNIQUE: Multiaxial CT images of the head were performed without the use of intravenous contrast. Automated exposure control was utilized for this study. A dose lowering technique was utilized adhering to the principles of ALARA. Comparison: Head CT 12/16/2020. Findings: The paranasal sinuses and mastoid air cells are clear. The calvarium and skull base are intact. The ventricles and sulci are within normal limits. There is no mass, hematoma, midline shift, or acute infarct. Prior left-sided craniotomy with underlying postoperative encephalomalacia. This remains unchanged. Impression: No significant change compared to the prior study. No acute intracranial abnormality. ACT 112: Negative or not required by law. Electronically signed by: Edgar Meek M.D. 03/31/2021 7:13 AM Hip/Pelvis X-Ray 03/30/21 20:49 XR hip RT 2V w pelvis CLINICAL HISTORY: r hip pain COMPARISON STUDY: Pelvis 09/06/2015. FINDINGS: Impacted subcapital right femoral neck fracture. The bones are osteopenic. No dislocation. The sacrum appears intact. IMPRESSION: Impacted subcapital right femoral neck fracture. ACT 112: Negative or not required by law. Electronically signed by: Edgar Meek M.D. 03/31/2021 7:52 AM Shoulder X-Ray 03/30/21 20:49 RIGHT SHOULDER 3 VIEWS HISTORY: r shoulder pain COMPARISON: None. FINDINGS: There is no fracture or dislocation. Mild supraspinatus calcific tendinitis. Moderate AC joint arthrosis and moderate degenerative changes within the glenohumeral joint. The right clavicle is intact. No radiopaque foreign bodies. IMPRESSION: Moderate osteoarthritis within the right shoulder. No fractures. ACT 112: Negative or not required by law. Electronically signed by: Edgar Meek M.D. 03/31/2021 7:[address] 03/30/21 21:27 CT hip RT wo con CLINICAL HISTORY: Right hip pain following fall. COMPARISON STUDY: Pelvis and right hip radiographs March 30, 2021. TECHNIQUE: Axial images of the right hip were obtained without IV contrast. Sagittal and coronal reconstructions were viewed. Automated exposure control was utilized for the study. A dose lowering technique was utilized adhering to the principles of ALARA. FINDINGS: Note is made of an acute impacted mildly displaced subcapital right femoral neck fracture. No additional acute fractures are identified. There is moderate osteoarthritis of the right hip. No acute fracture within visualized portions of the right hemipelvis are noted. A few prominent right external iliac and inguinal lymph nodes are noted. IMPRESSION: Acute impacted mildly displaced subcapital right femoral neck fracture. ACT 112: Negative or not required by law. Electronically signed by: Vicente Shrestha M.D. 03/31/2021 8:10 AM Hospital Course (1) Closed right hip fracture: Closed right hip fracture status post mechanical fall- Age related ost eoporotic closed right femoral neck fracture in setting of ground level fall. Is normally wheelchair bound with RLE contracture but does transfer from wheelchair to her car and drive to appointments. SHe uses her legs to scoot around in wheelchair She has now decided not to have surgery and to go a nonsurgical approach -can TTWB on right -still with pain, T#3 not helping, tramadol not helping, hydrocodone helped- continue hydrocodone prn and tylenol prn -bowel regimen-daily Miralax. No BM throughout entire stay [facility] consult-f/u with Ortho in 2 weeks closer to where her SNF will be as she is going to [place] (2) Fall: Mechanical fall as she was dressed got tangled up as she was getting up out of her wheelchair. no events on tele, did not have LOC (3) Diabetes type 2, controlled: with hyperglycemia now improved -continue Levemir 30 units, Novolog sliding scale , restart home metformin Accu-Cheks before meals and at bedtime with NovoLog coverage per scale Check hemoglobin [id number] at 8.8% (4) Hypothyroidism, postablative: Continue levothyroxine 125 mcg daily TSH is always elevated in past labs and most recently was 9 in 11/2020 TSH now down to 5.1 which is improved May be poor absorption given previous volume overload repeat TSH in 4-6 weeks (5) HTN (hypertension): Continue amlodipine and losartan with hold parameters continue furosemide daily along with KCl (6) Asthma: DuoNebs every 2 hours as needed no acute issues (7) Ambulatory dysfunction: as above, 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 (8) Hypoxia: chronic resp failure with hypoxia-requires 1-2LNC continuous (9) Diastolic heart failure: no volume overload continue lasix, BP control watch daily weights, and should have low sodium diet (10) DVT prophylaxis: SCDs, Lovenox 40mg SQ daily x 2 weeks Dispo-dc to rehab Total Time Total Time Spent Total Time Spent (In Minutes): 35 min Total Time Includes: Examination of the Patient, Discharge Planning and Medication Reconciliation Discharge Plan Discharge Items Patient Disposition: Transfer Halfway Fac Reason For Visit: CLOSED RIGHT HIP FRACTURE, TACHYCARDIA Discharge Diagnosis: Right hip fracture Condition on Discharge: Fair Activity: As commented below Bathing: No limitations Exercise/Sports: As tolerated Weightbearing: Right toe touch Non-emergency contact: Primary Care Provider and Surgeon Call non-emergency contact if: you have any medication questions, your symptoms worsen and your pain is not controlled Follow-up/Referrals: Amada Pyle, [Primary Care Provider] - (Follow up within 2 weeks after discharge from rehab) Diet: Carb Consistent or DM2 and Low Sodium (2gm) Addtl Attending Provider Instructions: You were admitted for a right hip fracture and opted for nonsurgical management. Follow up with an Orthopedic Surgeon in the location of your rehab within 2 weeks. Continue hydrocodone as needed for pain. Continue Lovenox SQ daily x 2 weeks for DVT prevention. Pending Studies at Discharge: No Stand-Alone Forms: My [facility] Skilled Items Patient informed of condition?: Yes DNR: No Discharge Level of Care: Skilled Communicable Disease: No Discharge Prognosis: Stable Lines: None Urinary Catheter: No Medications and DC Order Prescriptions: New enoxaparin 40 mg/0.4 mL Syringe 40 mg subcut DAILY 14 Days Qty: 5.6 RF: 0 acetaminophen 500 mg Tablet 1,000 mg PO Q8 PRN (Reason: pain) Qty: 30 RF: 0 hydrocodone-acetaminophen 5-325 mg Tablet 1 - 2 tab PO Q4 PRN (Reason: pain) Qty: 14 RF: 0 polyethylene glycol 3350 [Miralax] 17 gram Powder In Packet 17 g PO DAILY Qty: 30 RF: 0 sennosides-docusate sodium [Senokot-S] 8.6-50 mg Tablet 2 tab PO HS Qty: 60 RF: 0 Continued (DME) OneTouch Verio test strips Strip See Rx Instructions .ROUTE .MEDSUPPLY Qty: 100 RF: 3 (DME) Aerochamber Plus Flow-Vu Spacer See Rx Instructions .ROUTE .MEDSUPPLY Qty: 1 RF: 0 (DME) lancets [OneTouch Delica Lancets] 33 gauge misc See Rx Instructions .ROUTE .MEDSUPPLY Qty: 100 RF: 0 (DME) pen needle, diabetic [BD Ultra-Fine Micro Pen Needle] 32 gauge x 1/4" needle See Rx Instructions .ROUTE .MEDSUPPLY Qty: 50 RF: 0 multivitamin [Daily Multi-Vitamin] Tablet 1 tab PO QAM Qty: 30 RF: 0 furosemide 40 mg tablet 40 mg PO QAM Qty: 30 RF: 0 metformin [Glucophage] 500 mg tablet 1,000 mg PO BIDM Qty: 120 RF: 0 amlodipine 2.5 mg tablet 2.5 mg PO QDL Qty: 30 RF: 0 amlodipine 5 mg tablet 5 mg PO QDL Qty: 30 RF: 0 potassium chloride 20 mEq packet 20 meq PO DAILY Qty: 30 RF: 0 levothyroxine 125 mcg tablet 125 mcg PO DAILYBB Qty: 30 RF: 0 albuterol sulfate 90 mcg/actuation Hfa Aerosol Inhaler 2 puff INHALATION Q6H PRN (Reason: Shortness Of Breath Or Wheezing) Qty: 18 RF: 0 losartan [Cozaar] 100 mg tablet 100 mg PO HS Qty: 30 RF: 0 Levemir U-100 Insulin 100 unit/mL Solution 30 unit SUBCUT QAM 30 Days Qty: 9 RF: 0 Discharge Orders: Discharge Order (Routine); Ordered 04/04/21 Ordered By: Adrianna Jensen Admission Data Admit Date/Time: 03/30/21 23:37 Attending Provider: Adrianna Jensen Admit Provider: Kenny Farfan Primary Care Provider: Amada Pyle Other Providers: Kenny Farfan ; Manuelito Cross ; Omar Haines ; [facility] ; [facility] Other Interventions: Discharge Summary Assessment (RN) Last Done: 04/04/21 07:51 Coding Level of Care Code D/C Day Management >30 mins Diagnoses Closed right hip fracture S72.001A Fall W19.XXXA Encounter type: initial encounter Diabetes type 2, controlled E11.9 Hypothyroidism, postablative E89.0 HTN (hypertension) I10 Hypertension type: essential hypertension Asthma J45.909 Ambulatory dysfunction R26.2 Hypoxia R09.02 Diastolic heart failure I50.30 DVT prophylaxis Z29.9
== END 2021-04-04 12:15 | DRG 543 ==
LOC: ED 20:34 → 2S 23:37 → SUATTDRO 23:37 → 2S 03-31 01:55 → 3N 03-31 11:54

== ENCOUNTER 2022-02-17 16:10 | Inpatient (IN) ==
[2022-02-17 17:07] LABS: Basophils # (auto) 0.04 K/uL (0-0.2); Basophils % (auto) 0.4 %; Eosinophils # (auto) 0.14 K/uL (0-0.5); Eosinophils % (auto) 1.4 %; Hematocrit (blood only) 40.5 % (37-47); Hemoglobin 13.3 g/dL (12.0-16.0); Immature Granulocytes # (auto) 0.02 K/uL (0.00-0.02); Immature Granulocytes % (auto) 0.2 %; Lymphocytes % (auto) 18.2 %; Mean Corpuscular Hemoglobin 28.5 pg (25-34); Mean Corpuscular Hgb Conc 32.8 g/dL (32-36); Mean Corpuscular Volume 86.7 fL (80-100); Mean Platelet Volume 9.9 fL (7.4-10.4); Monocytes # (auto) 0.53 K/uL (0.11-0.59); Monocytes % (auto) 5.4 %; Neutrophils # (auto) 7.35 K/uL (1.4-6.5); Neutrophils % (auto) 74.4 %; Platelet Count 278 K/uL (130-400); RDW Standard Deviation 44.1 fL (36.4-46.3); Red Blood Count 4.67 M/uL (4.2-5.4); White Blood Count 9.88 K/uL (4.8-10.8)
--- NOTE | 2022-02-17 18:06 | XRay Report ---
XR chest 1V portable HISTORY: Lower extremity swelling COMPARISON: None. FINDINGS: The cardiac silhouette is top normal in size. No focal lung consolidations to suggest pneum onia. No evidence for pulmonary edema. No pleural effusions. No pneumothorax. Hazy appearance to left lung base persist and likely represents prominent mediastinal fat. IMPRESSION: No acute process. ACT 112: Negative or not required by law. Electronically signed by: Edgar Meek M.D. 02/17/2022 6:04 PM
[2022-02-17 18:11] LABS: Alanine Aminotransferase 8 U/L (7-52); Albumin Globulin Ratio 1.1 (0.9-2); Albumin Level 4.2 gm/dl (3.4-5.0); Alkaline Phosphatase 103 U/L (34-104); Anion Gap 10 (3-11); Aspartate Aminotransferase 13 U/L (13-39); BUN Creatinine Ratio 29.6 (10-20); Bilirubin,Total 0.6 mg/dl (0.2-1.0); Blood Urea Nitrogen 24 mg/dl (6-23); Calcium 9.6 mg/dl (8.5-10.1); Carbon Dioxide 30 mmol/L (21-32); Chloride 95 mmol/L (98-107); Est GFR (African American) 82.9 ml/min; Est GFR (Non-African American) 71.5 ml/min; Glucose 372 mg/dl (70-99(Fasting)); Potassium 3.8 mmol/L (3.5-5.1); Sodium 135 mmol/L (136-145); Total Protein 8.2 gm/dl (6.0-8.3)
[2022-02-17] MEDS ORDERED: FUROSEMIDE 40 MG/4 ML VIAL IV ONE (18:12)
[2022-02-17] MEDS ORDERED: NovoLIN-R INSULIN PER UNIT CHARGE IV STA (18:15)
--- NOTE | 2022-02-17 18:23 | Emergency Department Note ---
Impression & Plan Pedal edema, Fluid overload, Failure of outpatient treatment ED Provider Note NAME: LACI SOLITARIO AGE: 76 SEX: F : 1945 ARRIVES VIA: Walk-In INFORMANT: [Patient] ED PROVIDER(S): [Michelet Cook MD] CHIEF COMPLAINT: Edema HISTORY OF PRESENT ILLNESS: The patient is a 76-year-old female who presents to the ER with leg swelling that has been occurring for just over a month. In the last 2 weeks, she has been on Lasix which has helped a bit. Today, she was sent to the hospital for admission for IV diuresis. She has been seeing cardiology, the heart failure clinic. The patient is not short of breath. She has no history of DVT or PE. There has been no fever, chills, cough or congestion. REVIEW OF SYSTEMS: See HPI for pertinent positives and negatives. A total of ten systems were reviewed and were otherwise negative. PMHx/PSHx: See Below SOCIAL HISTORY: See Below. PHYSICAL EXAM: GENERAL: Patient is in no acute distress. HEENT: No acute trauma, normocephalic atraumatic, mucous membranes moist, no nasal congestion, no scleral icterus. NECK: No stridor, no adenopathy, no meningismus, trachea is midline. LUNGS: Crackles at both bases, more so on the left. No wheezing or respiratory distress. HEART: Tachycardic, regular rhythm, no obvious murmurs. ABDOMEN: Soft, nontender, bowel sounds positive, no hernias, no peritonitis. EXTREMITIES: No cyanosis, significant bilateral pedal edema, full range of motion of all the joints without pain or difficulty, no signs for acute trauma. NEUROLOGIC: Oriented x 3, no acute motor or sensory deficits, no focal weakness. SKIN: No rash, no jaundice, no diaphoresis. DIFFERENTIAL DIAGNOSIS: DVT, thyroid disorder, venous insufficiency, fluid overload, CHF, heart failure, electrolyte imbalance, renal failure, CA, failed outpatient treatment, among others. EMERGENCY DEPARTMENT COURSE/PROCEDURES: ECG: Indication was tachycardia. The ECG shows a sinus tachycardia with a rate of 105. There is an old septal infarct. There is no ST elevation, no PVCs. The QTc is 470. Continuous Cardiac Monitoring: An order was placed for continuous cardiac monitoring. The monitor shows a rate of 110 with sinus tachycardia. MEDICAL DECISION MAKING: There is no leukocytosis or concerning anemia. There is a normal platelet count. No acute renal failure. Her blood sugar was high at 372. No worrisome liver enzyme elevation. The TSH was high however, the T4 was normal. ECG shows a sinus tachycardia, no obvious ST elevation. Cardiac enzyme testing x1 is not consistent with acute cardiac injury. BNP is not elevated. Urinalysis shows glucose, no infection. COVID test returned negative. Chest x-ray did not show any pneumonia or CHF. Bilateral lower extremity ultrasound did not show any acute DVT. The patient presents with increasing pedal edema despite outpatient Lasix. She has failed outpatient treatment. The patient received IV Lasix, 80 mg. She was given a dose of IV insulin because of the higher blood sugar. The patient is aware of the need to stay in the hospital. I did speak with case management, I spoke with the on-call hospitalist. 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) Hx of section Hx of thyroidectomy Family History Father Stroke Mother Dementia Diabetes Other TIA (transient ischemic attack) Denies family history of Ovarian cancer Prostate cancer Myocardial infarction Breast cancer Colorectal cancer Social History Smoking Status: Never smoker Second Hand Exposure: No; Hx Alcohol Use: No Hx Substance Use: No Preferred Language: Kazakh Communication Ability: Effective Visual Impairment: No Limitations Hearing Ability: Normal [employer]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 Beliefs That Will Affect Care: None marital status: / Current Living Situation: Alone current occupational status: retired Other Information That Helps Us Care for You: No Feels Safe at Home: Yes Seatbelt Use: always Assistive Devices: Glasses, Oxygen - Continuous and Wheelchair Allergies Allergies Allergy/AdvReac Type Severity Reaction Status Date / Time aspirin Allergy Severe HIVES; Verified 02/17/22 18:46 DIFFICULTY BREATHING Benzodiazepines Allergy Mild Unknown Verified 02/17/22 18:46 doxycycline Allergy Mild Unknown Verified 02/17/22 18:46 aspartame Allergy Unknown Unknown Verified 02/17/22 18:46 diltiazem Allergy Unknown UNKNOWN Verified 02/17/22 18:46 REACTION melon Allergy Unknown Unknown Verified 02/17/22 18:46 moxifloxacin Allergy Unknown UNKNOWN Verified 02/17/22 18:46 REACTION nifedipine Allergy Unknown UNKNOWN Verified 02/17/22 18:46 REACTION simvastatin Allergy Unknown UNKNOWN Verified 02/17/22 18:46 REACTION PER PT vancomycin Allergy Unknown UNKNOWN Verified 02/17/22 18:46 REACTION colchicine AdvReac Intermediate Difficulty Verified 02/17/22 15:28 Breathing Home Meds Home Medications Medication Instructions Recorded Confirmed inhalational spacing device #1 ea 01/03/21 02/17/22 (Aerochamber Plus Flow-Vu) lancets 33 gauge (Adelja LearningTouch Delica #100 ea 01/03/21 02/17/22 Lancets) pen needle, diabetic 32 gauge x #50 ea 01/03/21 02/17/2210/21" (BD Ultra-Fine Micro Pen Needle) potassium chloride 20 mEq oral 20 meq PO DAILY ea 09/18/21 02/17/22 packet furosemide 40 mg tablet 80 mg PO QAM tab 01/29/22 02/17/22 amlodipine 5 mg tablet 5 mg PO QPM 02/17/22 02/17/22 metformin 500 mg tablet,extended 500 mg PO BID 02/17/22 02/17/22 release 24 hr olmesartan 40 mg tablet 40 mg PO QAM 02/17/22 02/17/22 Previous Rx's Medication Instructions Recorded blood sugar diagnostic (Adelja LearningTouch #100 ea 12/05/20 Verio test strips) insulin detemir U-100 100 unit/mL 30 unit SUBCUT QAM 30 Days #9 ml 04/04/21 subcutaneous solution (Levemir U-100 Insulin) multivitamin (Daily Multi-Vitamin) 1 tab PO QAM #30 tab 04/04/21 albuterol sulfate 90 mcg/actuation 2 puff INHALATION Q6H PRN #18 g 06/19/21 aerosol inhaler moxifloxacin 400 mg tablet See Rx Instructions PO .COMPLEX #2 07/24/21 tab Bed Side Commode #1 ea 08/28/21 rosuvastatin 5 mg tablet See Rx Instructions PO .COMPLEX #3 09/19/21 tab epinephrine 0.3 mg/0.3 mL 0.953 mg IM Q3H PRN #2 ea 10/19/21 injection, auto-injector (EpiPen 2-Ángel) levothyroxine 175 mcg tablet 175 mcg PO DAILYBB #90 tab 01/13/22 Results & Data (ED) Vital Signs Vital Signs - 24 hr 02/17/22 16:10 02/17/22 19:15 Temperature 36.4 C L Temperature Source Temporal Artery Scan Pulse Rate 111 H Pulse Rate [Finger] 88 Respiratory Rate 16 20 Respiratory Effort / Characteristics Non-Labored Non-Labored Respiratory Depth Normal Normal Blood Pressure 209/98 H Blood Pressure [Left Arm] 171/87 H Blood Pressure Mean 135 Blood Pressure Mean [Left Arm] 115 Blood Pressure Position [Left Arm] Sitting Pulse Oximetry 98 99 Oxygen Delivery Method Room Air Room Air Sepsis Recent Fever Within 48 Hours No Sepsis New/Unexplained Change in Mental Status N/A Sepsis Action Taken by Nursing No Action Required Home Medications Current Medication List: was personally reviewed by me Laboratory Data Attestation: I reviewed the patient's lab results. Result diagrams: 02/17/22 16:48 02/17/22 16:48 Lab Results 02/17/22 02/17/22 02/17/22 Range/Units 16:48 16:48 16:48 WBC 9.88 (4.8-10.8) K/uL RBC 4.67 (4.2-5.4) M/uL Hgb 13.3 (12.0-16.0) g/dL Hct 40.5 (37-47) % MCV 86.7 (80-100) fL MCH 28.5 (25-34) pg MCHC 32.8 (32-36) g/dL RDW Std Deviation 44.1 (36.4-46.3) fL RDW Coeff of Smith 14.0 (11.5-14.5) % Plt Count 278 (130-400) K/uL MPV 9.9 (7.4-10.4) fL Immature Gran % (Auto) 0.2 % Neut % (Auto) 74.4 % Lymph % (Auto) 18.2 % Barry % (Auto) 5.4 % Eos % (Auto) 1.4 % Baso % (Auto) 0.4 % Neut # (Auto) 7.35 H (1.4-6.5) K/uL Lymph # (Auto) 1.80 (1.2-3.4) K/uL Barry # (Auto) 0.53 (0.11-0.59) K/uL Eos # (Auto) 0.14 (0-0.5) K/uL Baso # (Auto) 0.04 (0-0.2) K/uL Immature Gran # (Auto) 0.02 (0.00-0.02) K/uL Sodium 135 L (136-145) mmol/L Potassium 3.8 (3.5-5.1) mmol/L Chloride 95 L (98-107) mmol/L Carbon Dioxide 30 (21-32) mmol/L Anion Gap 10 (3-11) BUN 24 H (6-23) mg/dl Creatinine 0.81 (0.6-1.2) mg/dl Est Cr Clr Drug Dosing Not Reportable Est GFR ( Amer) 82.9 ml/min Est GFR (Non-Af Amer) 71.5 ml/min BUN/Creatinine Ratio 29.6 H (10-20) Glucose 372 H* (70-99(Fasting)) mg/dl Calcium 9.6 (8.5-10.1) mg/dl Total Bilirubin 0.6 (0.2-1.0) mg/dl AST 13 (13-39) U/L ALT 8 (7-52) U/L Alkaline Phosphatase 103 (34-104) U/L B-Natriuretic Peptide (0-100) pg/ml Total Protein 8.2 (6.0-8.3) gm/dl Albumin 4.2 (3.4-5.0) gm/dl Globulin 4.0 (2.5-4.0) gm/dl Albumin/Globulin Ratio 1.1 (0.9-2) TSH 10.251 H (0.300-4.500) uIu/ml Free T4 1.09 (0.61-1.60) ng/dl SARS-CoV-2, RNA, NAAT (NEGATIVE) 02/17/22 02/17/22 Range/Units 18:49 18:55 WBC (4.8-10.8) K/uL RBC (4.2-5.4) M/uL Hgb (12.0-16.0) g/dL Hct (37-47) % MCV (80-100) fL MCH (25-34) pg MCHC (32-36) g/dL RDW Std Deviation (36.4-46.3) fL RDW Coeff of Smith (11.5-14.5) % Plt Count (130-400) K/uL MPV (7.4-10.4) fL Immature Gran % (Auto) % Neut % (Auto) % Lymph % (Auto) % Barry % (Auto) % Eos % (Auto) % Baso % (Auto) % Neut # (Auto) (1.4-6.5) K/uL Lymph # (Auto) (1.2-3.4) K/uL Barry # (Auto) (0.11-0.59) K/uL Eos # (Auto) (0-0.5) K/uL Baso # (Auto) (0-0.2) K/uL Immature Gran # (Auto) (0.00-0.02) K/uL Sodium (136-145) mmol/L Potassium (3.5-5.1) mmol/L Chloride (98-107) mmol/L Carbon Dioxide (21-32) mmol/L Anion Gap (3-11) BUN (6-23) mg/dl Creatinine (0.6-1.2) mg/dl Est Cr Clr Drug Dosing Est GFR ( Amer) ml/min Est GFR (Non-Af Amer) ml/min BUN/Creatinine Ratio (10-20) Glucose (70-99(Fasting)) mg/dl Calcium (8.5-10.1) mg/dl Total Bilirubin (0.2-1.0) mg/dl AST (13-39) U/L ALT (7-52) U/L Alkaline Phosphatase (34-104) U/L B-Natriuretic Peptide 54 (0-100) pg/ml Total Protein (6.0-8.3) gm/dl Albumin (3.4-5.0) gm/dl Globulin (2.5-4.0) gm/dl Albumin/Globulin Ratio (0.9-2) TSH (0.300-4.500) uIu/ml Free T4 (0.61-1.60) ng/dl SARS-CoV-2, RNA, NAAT NEGATIVE (NEGATIVE) Administered Medications Amlodipine Besylate (Amlodipine Besylate 5 Mg Tab) 5 mg PO QPM SABINE Stop: 03/19/22 22:56 Last Admin: 02/17/22 23:43 Dose: 5 mg Documented by: [id number] Enoxaparin Sodium (Enoxaparin Inj 40 Mg/0.4 Ml Syr) 40 mg SQ Q24H SABINE Stop: 03/19/22 19:29 Last Admin: 02/17/22 20:16 Dose: Not Given Documented by: [id number] Furosemide (Furosemide Inj 20 Mg/2 Ml Vial) 60 mg IV [id number] SABINE Stop: 03/19/22 23:14 Last Admin: 02/17/22 23:42 Dose: 60 mg Documented by: [id number] Insulin Aspart (Insulin Aspart Per Unit) 0 units SC ACHS SABINE Stop: 03/19/22 22:56 Last Admin: 02/17/22 23:43 Dose: 7 units Documented by: [id number] Cosigned by: [id number] Insulin Glargine (Insulin Glargine Solostar 100 Units/Ml 3 Ml Pen) 20 units SC BID SABINE Stop: 03/19/22 22:56 Last Admin: 02/17/22 23:41 Dose: 20 units Documented by: [id number] Cosigned by: [id number] Discontinued Medications Furosemide (Furosemide 40 Mg/4 Ml Vial) 80 mg IV ONE ONE Stop: 02/17/22 18:13 Last Admin: 02/17/22 19:25 Dose: 80 mg Documented by: [id number] Insulin Human Regular (Novolin-R Insulin Per Unit Charge) 8 units IV NOW STA Stop: 02/17/22 18:16 Last Admin: 02/17/22 19:27 Dose: 8 units Documented by: [id number] Cosigned by: [id number] Imaging Data Radiologist's Impression: Chest X-Ray 02/17/22 16:29 XR chest 1V portable HISTORY: Lower extremity swelling COMPARISON: None. FINDINGS: The cardiac silhouette is top normal in size. No focal lung consolidations to suggest pneumonia. No evidence for pulmonary edema. No pleural effusions. No pneumothorax. Hazy appearance to left lung base persist and likely represents prominent mediastinal fat. IMPRESSION: No acute process. ACT 112: Negative or not required by law. Electronically signed by: Edgar Meek M.D. 02/17/2022 6:04 PM Bilateral lower extremity ultrasound: No acute DVT found. Discharge Plan Visit Data Chief Complaint: Swelling/Edema to Extremity Stated Complaint: SWOLLEN FEET ED Provider: Michelet Cook Discharge Problem: Pedal edema, Fluid overload, Failure of outpatient treatment Patient Disposition: Admitted As Inpatient Condition: Good Discharge Instructions Interventions: ED Discharge Assessment Last Done: 02/17/22 22:13
[2022-02-17 18:49] LABS: Thyroid Stimulating Hormone 10.251 uIu/ml (0.300-4.500)
[2022-02-17] MEDS ORDERED: ACETAMINOPHEN 325 MG TAB PO PRN (19:23)
--- NOTE | 2022-02-17 19:25 | History & Physical Report ---
Date of Service February 17, 2022 Assessment & Plan (1) Diastolic heart failure: Plan: This is a 76-year-old female with a history of HFpEF (NYHA Class II-III) type 2 diabetes, hypertension, asthma, recurrent falls who presented to [facility] for lower extremity edema. Patient was seen at heart failure clinic earlier today, where she was noticed to have appreciable leg swelling and reported abdominal distention, consistent with overload and suspected [id number] HFpEF. Hypervolemia / Bilateral Lower Extremity Edema / Suspected [id number] HFpEF With reported multiple week history of increasing, bilateral leg swelling and abdominal distention despite ongoing diuresis Normal left ventricular function without regional wall motion abnormalities, EF 55 to 60%, mild tricuspid regurgitation No evidence of pulmonary involvement throughout this process Suspect etiology is multifactorial: Component of HFpEF, also likely venous stasis changes in setting of infrequent ambulation Initiate Lasix 60 mg IV twice daily, also check BMP twice daily to ensure adequate renal function Monitor intake/output with external catheter, daily weights Consider transition to torsemide/spironolactone during stay here to minimize daily doses, which are causing a problem for patient Low-sodium diet, fluid restriction under 2 L/day Elevate legs, use compression stockings Check TTE - if e/o elevated RSVP, should consider nocturnal oximetry to eval for ANIBAL Await venous doppler ordered in ED Consider transitioning off amlodipine for worsening leg swelling Consider adding SGLT2 agent in the future Patient has multiple medication allergies, never to diuretics, but will require close monitoring if initiating new medications here (2) Ambulatory dysfunction: Plan: Falls at Home / Previous Fall Resulting in Left Hip Fracture 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) Closed right hip fracture sustained on 03/2021, treated nonoperatively with extensive physical therapy Patient reports intermittent falls at home and difficulty making it to the bathroom as result of current paresis regimen; as above, consider minimizing daily doses through alternative medications, like torsemide/spironolactone PT, OT consulted (3) Diabetes type 2, controlled: Plan: Type 2 Diabetes Mellitus 09/2021 A1c: 7.5%, managed at home with Lantus 30U qAM and metformin (hold while here) Initiate Lantus 20 mg every morning (two thirds home dose) Initiate sliding scale insulin with correction factor 1:30, carb ratio 1:15 Check A1c Carb consistent diet (4) Asthma: Plan: Asthma Relatively controlled, continue albuterol as needed (5) HTN (hypertension): Plan: HTN Continue telmisartan, amlodipine for now As above, consider transitioning from amlodipine to alternative agent given persistent leg swelling (6) Hypothyroidism, postablative: Plan: Hypothyroidism Patient with elevated TSH of 10 on arrival, has been persistently high over the last several months Continue levothyroxine while here Continue outpatient management/thyroid replacement Plan: Code: Full Diet: Low Na/Carb Consistent, fluid restriction < 2L/day PPX: Lovenox Dispo: MS/Tele History of Present Illness Primary Care Provider: Irish Ramos MD This is a 76-year-old female with a history of HFpEF (NYHA Class II-III) type 2 diabetes, hypertension, asthma, recurrent falls who presented to [facility] for lower extremity edema. Patient was seen at heart failure clinic earlier today, where she was noticed to have appreciable leg swelling. She notes that over the past 4 weeks, her legs have progressively become more swollen despite increased Lasix doses. She also notes that over this time, she feels like her belly has been getting better. She says that over the last 3 weeks, she has gradually increased her Lasix dosing at the recommendation of her heart failure clinic. She said for the most part she has been compliant to the regimen; however, at nighttime, she has a lot of issues getting out of bed due to weakness, and out of this concern she would occasionally not take her nighttime dose. She denies any changes in diet. She denies any chest pain, palpitations, shortness of breath. Denies any nausea, vomiting, diarrhea. She denies any recent illnesses. Medications reviewed, include albuterol as needed, amlodipine 5 mg, EpiPen, furosemide 80 mg each morning, Levemir 30 units each morning, levothyroxine 175 mcg daily, metformin 500 twice daily, moxifloxacin 400 mg, olmesartan 40 mg daily, potassium chloride 20 mEq daily. She lives at home alone in a 5 bedroom, two-story house. She has a chairlift to get her out. She does endorse some falls at home, including one several months ago (was in the kitchen, tripped over her wheelchair) that resulted in a broken right hip. Thankfully, this was managed nonoperatively and with extensive therapy. She denies a history of snoring in the past, but because she lives alone now, doesn't know if she does/not. No waking up gasping for breath. She denies any regular use of alcohol, tobacco, or recreational drugs. Last TTE 10/2020: Normal left ventricular function without regional wall motion abnormalities, EF 55 to 60%, mild tricuspid regurgitation In the ED, patient was found to be notably hypertensive to 210/100 with pulse 110, respiratory rate 16, saturating 98% on room air. Labs demonstrated normal white count, sodium 135/chloride 95, potassium 3.8, BUN 24/creatinine 0.8, blood sugar 372, BNP 54, TSH 10.25 with free T4 1.09. Chest x-ray demonstrated no acute processes in the chest. ECG without acute conduction abnormalities, though nonspecific repolarization abnormalities appreciated in the inferior and anteroseptal leads. Allergies Allergy/AdvReac Type Severity Reaction Status Date / Time aspirin Allergy Severe HIVES; Verified 02/17/22 18:46 DIFFICULTY BREATHING Benzodiazepines Allergy Mild Unknown Verified 02/17/22 18:46 doxycycline Allergy Mild Unknown Verified 02/17/22 18:46 aspartame Allergy Unknown Unknown Verified 02/17/22 18:46 diltiazem Allergy Unknown UNKNOWN Verified 02/17/22 18:46 REACTION melon Allergy Unknown Unknown Verified 02/17/22 18:46 moxifloxacin Allergy Unknown UNKNOWN Verified 02/17/22 18:46 REACTION nifedipine Allergy Unknown UNKNOWN Verified 02/17/22 18:46 REACTION simvastatin Allergy Unknown UNKNOWN Verified 02/17/22 18:46 REACTION PER PT vancomycin Allergy Unknown UNKNOWN Verified 02/17/22 18:46 REACTION colchicine AdvReac Intermediate Difficulty Verified 02/17/22 15:28 Breathing Home Medications Medication Instructions Recorded Confirmed Type blood sugar diagnostic (OneTouch #100 ea 12/05/20 02/17/22 Rx Verio test strips) inhalational spacing device #1 ea 01/03/21 02/17/22 History (Aerochamber Plus Flow-Vu) lancets 33 gauge (OneTouch Delica #100 ea 01/03/21 02/17/22 History Lancets) pen needle, diabetic 32 gauge x #50 ea 01/03/21 02/17/22 History 1/4" (BD Ultra-Fine Micro Pen Needle) insulin detemir U-100 100 unit/mL 30 unit SUBCUT QAM 30 Days #9 ml 04/04/21 02/17/22 Rx subcutaneous solution (Levemir U-100 Insulin) multivitamin (Daily Multi-Vitamin) 1 tab PO QAM #30 tab 04/04/21 02/17/22 Rx albuterol sulfate 90 mcg/actuation 2 puff INHALATION Q6H PRN #18 g 06/19/21 02/17/22 Rx aerosol inhaler moxifloxacin 400 mg tablet See Rx Instructions PO .COMPLEX #2 07/24/21 02/17/22 Rx tab Bed Side Commode #1 ea 08/28/21 02/17/22 Rx potassium chloride 20 mEq oral 20 meq PO DAILY ea 09/18/21 02/17/22 History packet rosuvastatin 5 mg tablet See Rx Instructions PO .COMPLEX #3 09/19/21 02/17/22 Rx tab epinephrine 0.3 mg/0.3 mL 0.953 mg IM Q3H PRN #2 ea 10/19/21 02/17/22 Rx injection, auto-injector (EpiPen 2-Ángel) levothyroxine 175 mcg tablet 175 mcg PO DAILYBB #90 tab 01/13/22 02/17/22 Rx furosemide 40 mg tablet 80 mg PO QAM tab 01/29/22 02/17/22 History amlodipine 5 mg tablet 5 mg PO QPM 02/17/22 02/17/22 History metformin 500 mg tablet,extended 500 mg PO BID 02/17/22 02/17/22 History release 24 hr olmesartan 40 mg tablet 40 mg PO QAM 02/17/22 02/17/22 History Past Med/Surg History Medical History (Updated 02/17/22 @ 19:47 by Anay So DO) Acute diastolic (congestive) heart failure Ambulatory dysfunction Asthma Cardiac arrest Diastolic heart failure Dyslipidemia Elevated serum globulin level Financial difficulties Gait abnormality History of ectopic History of seizures as a child HTN (hypertension) Hx of pleurisy Hx of thyroid cancer Hypothyroidism, postablative Lower extremity edema Mild intermittent asthma Pleurisy without effusion Right knee DJD Shakiness Type 2 diabetes mellitus Wheelchair bound Surgical History History of D&C Hx of brain surgery 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) Hx of section Hx of thyroidectomy Family History Father Stroke Mother Dementia Diabetes Other TIA (transient ischemic attack) Denies family history of Ovarian cancer Prostate cancer Myocardial infarction Breast cancer Colorectal cancer Social History Smoking Status: Never smoker Second Hand Exposure: No; Hx Alcohol Use: No Hx Substance Use: No Preferred Language: Khmer Communication Ability: Effective Visual Impairment: No Limitations Hearing Ability: Normal Fishing Guide Required: No Beliefs That Will Affect Care: None marital status: / Current Living Situation: Alone current occupational status: retired Other Information That Helps Us Care for You: No Feels Safe at Home: Yes Seatbelt Use: always Assistive Devices: Glasses, Oxygen - Continuous and Wheelchair Review of Systems Review of Systems: as per HPI Physical Exam Physical Exam: General: 76-year-old female who is lying back in her hospital bed, relaxed upon my arrival. She is in no acute distress. HEENT: NCAT. - Eyes - Sclera are white, anicteric, and without injection. PERRL. - Mouth - MMM - Neck - supple; cannot evaluate for JVD at time of presentation secondary to habitus. Cardiac: Normal rate and regular rhythm; S1 and S2 present with no murmurs, rubs, or gallops. Pulmonary: Good respiratory effort with symmetric expansion of the chest. No use of accessory muscles. Lungs were clear to auscultation bilaterally with no crackles or wheezes. Abdominal: Normoactive bowel sounds. Abdomen was soft, mildly distended, and non-tender to palpation. Extremities: Upper and lower extremities are warm and well perfused. Appreciable lower extremity edema bilaterally, 2+; no erythema or ulceration. Ankle strength 5/5 bilaterally. Capillary refill < 2 seconds. Psych: Well-developed, well-nourished, appropriately dressed for occasion. Behavior is cooperative and appropriate. Affect is WNL. Insight is appropriate. Results & Data Results & Data ([facility] [place]) Vital Signs (Past 12 Hours) Vital Signs Temp Pulse Resp BP Pulse Ox 02/17/22 16:10 36.4 C L 111 H 16 209/98 H 98 Laboratory Results Laboratory Results WBC 9.88 K/uL (4.8-10.8) 02/17/22 16:48 RBC 4.67 M/uL (4.2-5.4) 02/17/22 16:48 Hgb 13.3 g/dL (12.0-16.0) 02/17/22 16:48 Hct 40.5 % (37-47) 02/17/22 16:48 MCV 86.7 fL (80-100) 02/17/22 16:48 MCH 28.5 pg (25-34) 02/17/22 16:48 MCHC 32.8 g/dL (32-36) 02/17/22 16:48 RDW Std Deviation 44.1 fL (36.4-46.3) 02/17/22 16:48 RDW Coeff of Smith 14.0 % (11.5-14.5) 02/17/22 16:48 Plt Count 278 K/uL (130-400) 02/17/22 16:48 MPV 9.9 fL (7.4-10.4) 02/17/22 16:48 Immature Gran % (Auto) 0.2 % 02/17/22 16:48 Neut % (Auto) 74.4 % 02/17/22 16:48 Lymph % (Auto) 18.2 % 02/17/22 16:48 [place] % (Auto) 5.4 % 02/17/22 16:48 Eos % (Auto) 1.4 % 02/17/22 16:48 Baso % (Auto) 0.4 % 02/17/22 16:48 Neut # (Auto) 7.35 K/uL (1.4-6.5) H 02/17/22 16:48 Lymph # (Auto) 1.80 K/uL (1.2-3.4) 02/17/22 16:48 [place] # (Auto) 0.53 K/uL (0.11-0.59) 02/17/22 16:48 Eos # (Auto) 0.14 K/uL (0-0.5) 02/17/22 16:48 Baso # (Auto) 0.04 K/uL (0-0.2) 02/17/22 16:48 Immature Gran # (Auto) 0.02 K/uL (0.00-0.02) 02/17/22 16:48 Sodium 135 mmol/L (136-145) L 02/17/22 16:48 Potassium 3.8 mmol/L (3.5-5.1) 02/17/22 16:48 Chloride 95 mmol/L (98-107) L 02/17/22 16:48 Carbon Dioxide 30 mmol/L (21-32) 02/17/22 16:48 Anion Gap 10 (3-11) 02/17/22 16:48 BUN 24 mg/dl (6-23) H 02/17/22 16:48 Creatinine 0.81 mg/dl (0.6-1.2) 02/17/22 16:48 Est Cr Clr Drug Dosing Not Reportable 02/17/22 16:48 Est GFR ( Amer) 82.9 ml/min 02/17/22 16:48 Est GFR (Non-Af Amer) 71.5 ml/min 02/17/22 16:48 BUN/Creatinine Ratio 29.6 (10-20) H 02/17/22 16:48 Glucose 372 mg/dl (70-99(Fasting)) H* 02/17/22 16:48 POC Glucose 246 mg/dl (70-99) H 02/17/22 23:37 Calcium 9.6 mg/dl (8.5-10.1) 02/17/22 16:48 Total Bilirubin 0.6 mg/dl (0.2-1.0) 02/17/22 16:48 AST 13 U/L (13-39) 02/17/22 16:48 ALT 8 U/L (7-52) 02/17/22 16:48 Alkaline Phosphatase 103 U/L (34-104) 02/17/22 16:48 Troponin I High Sens 9.2 pg/ml (0-14) 02/17/22 20:03 B-Natriuretic Peptide 54 pg/ml (0-100) 02/17/22 18:49 Total Protein 8.2 gm/dl (6.0-8.3) 02/17/22 16:48 Albumin 4.2 gm/dl (3.4-5.0) 02/17/22 16:48 Globulin 4.0 gm/dl (2.5-4.0) 02/17/22 16:48 Albumin/Globulin Ratio 1.1 (0.9-2) 02/17/22 16:48 TSH 10.251 uIu/ml (0.300-4.500) H 02/17/22 16:48 Free T4 1.09 ng/dl (0.61-1.60) 02/17/22 16:48 Urine Color Yellow 02/17/22 19:41 Urine Appearance Clear (Clear) 02/17/22 19:41 Urine pH 8.5 (4.5-7.5) H 02/17/22 19:41 Ur Specific [place] 1.015 (1.000-1.030) 02/17/22 19:41 Urine Protein 2+ (Negative) H 02/17/22 19:41 Urine Glucose (UA) 3+ (Negative) H 02/17/22 19:41 Urine Ketones Negative (Negative) 02/17/22 19:41 Urine Blood Trace (Negative) H 02/17/22 19:41 Urine Nitrite Negative (Negative) 02/17/22 19:41 Urine Bilirubin Negative (Negative) 02/17/22 19:41 Urine Urobilinogen Negative (Negative) 02/17/22 19:41 Ur Leukocyte Esterase Negative (Negative) 02/17/22 19:41 Urine WBC (Auto) 0 /hpf (0-5) 02/17/22 19:41 Urine RBC (Auto) 0-4 /hpf (0-4) 02/17/22 19:41 U Hyaline Cast (Auto) 0 /lpf (0-5) 02/17/22 19:41 U Epithel Cells (Auto) 5-10 /lpf (0-5) H 02/17/22 19:41 Urine Bacteria (Auto) Negative (Negative) 02/17/22 19:41 SARS-CoV-2, RNA, NAAT NEGATIVE (NEGATIVE) 02/17/22 18:55 Impressions Chest X-Ray 02/17/22 16:29 XR chest 1V portable HISTORY: Lower extremity swelling COMPARISON: None. FINDINGS: The cardiac silhouette is top normal in size. No focal lung consolidations to suggest pneumonia. No evidence for pulmonary edema. No pleural effusions. No pneumothorax. Hazy appearance to left lung base persist and likely represents prominent mediastinal fat. IMPRESSION: No acute process. ACT 112: Negative or not required by law. Electronically signed by: Edgar Meek M.D. 02/17/2022 6:04 PM Supervising Physician Co-Signing Physician Notes Patient seen and examined, chart reviewed, case discussed with Dr. Villasenor and I agree with the assessment and plan as above. In brief, patient is a 76yo female with HFpEF, follows with Heart Failure clinic - presenting with acute decompe nsated HFpEF with LE edema, abdominal distention, unresolved by increased oral diuretic dosing outpatient. On exam she is afebrile, hypertensive, otherwise HD stable, NAD Skin - chronic venous stasis changes, no rash/lesions HEENT- NC/AT, PERRL, no JVD Heart - +S1/S2, regular, no m/r/g Lungs - CTA Abd - +BS, soft, NT/ND Ext - warm, well perfused, no clubbing/cyanosis, 2+ edema to knees bilaterally, no tenderness Labs and images reviewed Bilateral LE doppler NEGATIVE for DVT Assessment/Plan -Diuresis with Lasix 60mg IV BID, close attention to renal function and electrolytes -Daily weights, I/Os, low Na diet -Repeat 2D echo -Remainder as above Resident Activity Tracking Resident Involvement: Resident Care Provided Care Provided: Adult Hospital Medicine (1) HTN (hypertension) Hypertension type: essential hypertension Qualified Code(s): I10 - Essential (primary) hypertension
[2022-02-17 19:35] LABS: T4 Free Thyroxine 1.09 ng/dl (0.61-1.60)
[2022-02-17 20:03] LABS: Appearance Urine Clear (Clear); Bacteria Urine Automated Negative (Negative); Bilirubin Urine Negative (Negative); Blood Urine Trace (Negative); Cast Urine Automated 0 /lpf (0-5); Color Urine Yellow; Glucose Urine UA 3+ (Negative); Ketones Urine Negative (Negative); Leukocyte Esterase Urine Negative (Negative); Nitrite Urine Negative (Negative); RBC Urine Automated 0-4 /hpf (0-4); Specific Gravity Urine 1.015 (1.000-1.030); Urobilinogen Urine Negative (Negative); WBC Urine Automated 0 /hpf (0-5); pH Urine 8.5 (4.5-7.5)
[2022-02-17 20:12] LABS: Protein Urine 2+ (Negative)
[2022-02-17] MEDS: ENOXAPARIN INJ 40 MG/0.4 ML SYR SQ SCH (20:16)
[2022-02-17] MEDS ORDERED: GLUCAGON FOR INJ 1 MG VIAL SQ PRN (22:57)
[2022-02-17] MEDS ORDERED: GLUCOSE 10 TABS/TUBE PO PRN (22:57)
[2022-02-17] MEDS ORDERED: CARBOHYDRATES FOR HYPOGLYCEMIA PO PRN (22:57)
[2022-02-17] MEDS ORDERED: ALBUTEROL HFA 8 GM INHALER INH PRN (22:57)
[2022-02-17] MEDS ORDERED: DEXTROSE 50% 50 ML SYRINGE IV PRN (22:57)
[2022-02-17] MEDS ORDERED: EPINEPHrine ADULT AUTO-INJECT 0.3 MG SYR IM PRN (22:57)
[2022-02-17] MEDS ORDERED: GLUCOSE 40% GEL 15 GM TUBE PO PRN (22:57)
[2022-02-17] MEDS: INSULIN GLARGINE SOLOSTAR 100 UNITS/ML 3 ML PEN SC SCH (23:41)
[2022-02-17] MEDS: FUROSEMIDE INJ 20 MG/2 ML VIAL IV SCH (23:42)
[2022-02-17] MEDS: INSULIN ASPART PER UNIT SC SCH (23:43)
[2022-02-17] MEDS: amLODIPine BESYLATE 5 MG TAB PO SCH (23:43)
--- NOTE | 2022-02-18 00:40 | Billing Data ---
Date of Service February 17, 2022 Coding Level of Care Code 88665 Initial Inpt Care Lvl 3
[2022-02-18] MEDS: LEVOTHYROXINE SODIUM 175 MCG TABLET PO SCH (05:27)
--- NOTE | 2022-02-18 06:52 | Hospitalist Progress Note ---
Date of Service February 18, 2022 Assessment & Plan (1) Diastolic heart failure: Plan: 76-year-old female with a history of HFpEF, type 2 diabetes, hypertension, asthma, and recurrent falls who presented to [facility] for 2 months of worsened lower extremity edema. Hypervolemia - supported by crackles, LE edema, mild JVD on exam, 13lb wt gain (from 10/2021) - considered diastolic CHF exacerbation. lower suspicion for liver or kidney dysfunction, but consider noncardiac causes - albumin and BNP wnl - Echo: EF 55-60%. borderline lvh. mild MR. No RWMA. Grade 1 diastolic dysfunction. No significant change from 10/2020. - external catheter to monitor Is/Os - 1.2L net output this admission - Lasix 60mg IV BID transitioned to Bumex 3mg IV BID Bilateral lower extremity edema - Some component of chf exacerbation, but also considered venous insufficiency. lower suspicion for amlodipine 5mg as contributory - elevate legs. BRIAN poe Ambulatory dysfunction, frequent falls Wheelchair-bound 2/2 history of CSF leak >20 years ago resulting in significa nt LE weakness (RLE contracture) Closed right hip fracture sustained on 03/2021, treated nonoperatively PT/OT consulted Chronic hypoxia, O2 dependence - home O2 2L w/ exertion - outpatient PFTs Type 2 Diabetes Mellitus - A1 7.5 (09/2021) -> 9.5 - hold home regimen metformin 500mg BID and Levimir qam - Lantus 20u qam + SSI (CF40, CR 20, goal 110-150) - check BSG achs Hypokalemia, hypomagnesemia - repleting, follow BMP Asthma controlled, continue prn albuterol Hypertension Continue home olmesartan and amlodipine Hypothyroidism Patient with elevated TSH of 10 on arrival, has been persistently high over the last several months Continue home levothyroxine Medication nonadherence - Patient did not fill medications (specifically amlodipine-losartan) rx'd at last pcp visit (09/2021) for months and required adjustment (olmesartan) at heart failure clinic visit. Recommend close f/u w/ pcp. Multiple medication allergies - trial new medications w/ caution, preferably in hospital setting - follows allergy as outpatient Code: Full Diet: Low Na. DM2. Fluid restriction 2L. PPX: Lovenox (patient refusing). Brian dinh Dispo: med tele (2) Ambulatory dysfunction: (3) Diabetes type 2, controlled: (4) Asthma: (5) HTN (hypertension): (6) Hypothyroidism, postablative: (7) Lower extremity edema: (8) Multiple drug allergies: (9) Chronic respiratory failure with hypoxia, on home O2 therapy: (10) Hypokalemia: (11) Hypomagnesemia: Admission and Anticipated Discharge Date Admission Date: February 17, 2022 Supervising Physician Co-Signing Physician Notes Resident Physician Supervision Note: I independently interviewed and examined the patient and verified the dickerson history and physical, reviewed labs and image studies and agree with resident Dr. Devine findings and care plan. Subjective Chronic chills x 1 year. Denies chest pain or SOB. Other symptoms neg. She did not have respiratory or exertional symptoms at home. She is here because of the severe leg swelling x 2 months. She follows / [facility] heart failure clinic and the leg swelling did not improve despite increased lasix. Denies missing lasix doses at home. Home O2 2L only prn. Never smoker. She does not weigh herself at home because of difficulty w/ scale as she is wheelchair bound. Review of Systems Review of Systems: All systems reviewed & are unremarkable except as noted in HPI & below Physical Exam Physical Exam: General: Grossly A&O. NAD. Cooperative. HEENT: Atraumatic, normocephalic. EOMI. Mild JVD 2 finger breadths on right at 60 degrees. Pulm: Mild inspiratory crackles at mid and lower lung brooke. No respiratory distress. Cardiac: RRR, -mrg. + bilateral LE edema below knees. Lower extremity appear circumferentially enlarged, however, difficult to appreciate pitting. ~1+. Abdominal: Nontender, nondistended, soft. Results & Data Results & Data ([facility]) Vital Signs (Past 12 Hours) Vital Signs Temp Pulse Pulse Resp BP BP Pulse Ox 02/18/22 03:40 37.4 C 85 18 151/76 H 97 02/17/22 22:41 97 H 02/17/22 22:37 36.8 C 94 H 16 165/80 H 98 02/17/22 21:31 89 20 172/93 H 98 02/17/22 19:43 96 H 190/87 H 99 02/17/22 19:15 88 20 171/87 H 99 Resident Activity Tracking Resident Involvement: Resident Care Provided Care Provided: Adult Hospital Medicine (1) HTN (hypertension) Hypertension type: essential hypertension Qualified Code(s): I10 - Essential (primary) hypertension
--- NOTE | 2022-02-18 07:15 | Ultrasound Report ---
BILATERAL LOWER EXTREMITY VENOUS DOPPLER CLINICAL HISTORY: Bilateral lower extremity swelling. COMPARISON STUDY: Right lower extremity venous Doppler ultrasound May 16, 2020. Left lower extremit y venous Doppler ultrasound September 01, 2021. TECHNIQUE: Sonography of the deep venous system of the bilateral lower extremities was performed. Co mpression and augmentation were evaluated. FINDINGS: The bilateral common femoral, superficial femoral and popliteal veins were compressible. A ugmentation was normal. Flow was shown within the deep calf vessels although the calf vessels were garcia boptimally assessed. IMPRESSION: No evidence of deep venous thrombus within the bilateral lower extremities. ACT 112: Negative or not required by law. Electronically signed by: Vicente Shrestha M.D. 02/18/2022 7:14 AM
[2022-02-18] MEDS: FUROSEMIDE INJ 20 MG/2 ML VIAL IV SCH (08:06)
[2022-02-18] MEDS: INSULIN GLARGINE SOLOSTAR 100 UNITS/ML 3 ML PEN SC SCH (08:06)
[2022-02-18] MEDS: OLMESARTAN MEDOXOMIL 40 MG TAB PO SCH (08:06)
[2022-02-18] MEDS: ENOXAPARIN INJ 40 MG/0.4 ML SYR SQ SCH (08:13)
[2022-02-18] MEDS: INSULIN ASPART PER UNIT SC SCH ×4 (08:14→22:09)
[2022-02-18 08:20] LABS: Basophils # (auto) 0.03 K/uL (0-0.2); Basophils % (auto) 0.3 %; Eosinophils # (auto) 0.26 K/uL (0-0.5); Hematocrit (blood only) 37.5 % (37-47); Hemoglobin 12.2 g/dL (12.0-16.0); Immature Granulocytes # (auto) 0.03 K/uL (0.00-0.02); Immature Granulocytes % (auto) 0.3 %; Lymphocytes # (auto) 1.83 K/uL (1.2-3.4); Mean Corpuscular Hemoglobin 27.8 pg (25-34); Mean Corpuscular Hgb Conc 32.5 g/dL (32-36); Mean Corpuscular Volume 85.4 fL (80-100); Mean Platelet Volume 9.6 fL (7.4-10.4); Monocytes % (auto) 6.9 %; Neutrophils # (auto) 5.95 K/uL (1.4-6.5); Neutrophils % (auto) 68.5 %; Platelet Count 271 K/uL (130-400); RDW Standard Deviation 43.5 fL (36.4-46.3); Red Blood Count 4.39 M/uL (4.2-5.4)
[2022-02-18 08:46] LABS: BUN Creatinine Ratio 26.7 (10-20); Calcium 8.7 mg/dl (8.5-10.1); Creatinine Clr Calc Pharmacy 78.9 ml/min; Est GFR (Non-African American) 78.5 ml/min; Magnesium 1.6 mg/dl (1.7-2.4); Potassium 3.1 mmol/L (3.5-5.1)
[2022-02-18] MEDS ORDERED: POTASSIUM CHLORIDE CRTAB 20 MEQ TABCR PO STA (09:04)
--- NOTE | 2022-02-18 09:35 | XCELERA ---
[id number]
[2022-02-18 10:08] LABS: Estimated Average Glucose 226 mg/dl; Hemoglobin A1C 9.5 % (4.5-5.6)
[2022-02-18] MEDS ORDERED: POTASSIUM CHLORIDE CRTAB 20 MEQ TABCR PO ONE ×3 (13:00→21:00)
[2022-02-18] MEDS: MAGNESIUM SULFATE / D5W 1 GM/100 ML BAG IV SCH ×2 (14:22→16:33)
[2022-02-18] MEDS ORDERED: ONDANSETRON INJ 2 MG/ML 2 ML VIAL IV PRN (14:22)
[2022-02-18] MEDS ORDERED: BUMETANIDE 3 MG in SYRINGE 0 ML IV ONE (15:00)
[2022-02-18 20:34] LABS: Potassium 3.9 mmol/L (3.5-5.1)
[2022-02-18 20:35] LABS: BUN Creatinine Ratio 25.5 (10-20); Calcium 8.6 mg/dl (8.5-10.1); Creatinine Clr Calc Pharmacy 53.8 ml/min; Est GFR (African American) 57.3 ml/min; Est GFR (Non-African American) 49.4 ml/min; Magnesium 2.3 mg/dl (1.7-2.4)
[2022-02-18] MEDS ORDERED: INSULIN GLARGINE SOLOSTAR 100 UNITS/ML 3 ML PEN SC ONE (21:00)
[2022-02-18] MEDS: amLODIPine BESYLATE 5 MG TAB PO SCH (22:08)
[2022-02-19] MEDS: LEVOTHYROXINE SODIUM 175 MCG TABLET PO SCH (05:43)
--- NOTE | 2022-02-19 06:39 | Hospitalist Progress Note ---
Date of Service February 19, 2022 Assessment & Plan (1) Diastolic heart failure: Plan: 76-year-old female with a history of HFpEF, type 2 diabetes, hypertension, asthma, and recurrent falls who presented to [facility] for 2 months of worsened lower extremity edema. Acute on chronic HFpEF - supported by crackles, LE edema, mild JVD on exam, and 5.5kg wt gain from 10/2021. Discussed care w/ CHF clinic provider. Dry weight likely ~90kg. - albumin and BNP wnl - Echo: EF 55-60%. borderline lvh. mild MR. No RWMA. Grade 1 diastolic dysfunction. No significant change from 10/2020. - Home regimen was Lasix 80mg PO daily (trialed 80am 40pm, but unable to a dhere). - Bumex 3mg IV BID while inpatient, tentative plan for Bumex 3mg PO qam upon dispo. - 1.2L net output this admission + unmeasured void Bilateral lower extremity edema - Some component of chf exacerbation, but also considered venous insufficiency. Lower suspicion for amlodipine 5mg as contributory. - elevate legs. BRIAN hose. 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 Recommends rehab. Patient agreeable. Chronic hypoxia, O2 dependence - home O2 2L w/ exertion - outpatient PFTs Type 2 Diabetes Mellitus - A1 7.5 (09/2021) -> 9.5 - hold home regimen metformin 500mg BID and Levimir qam - Lantus 20u qam and 10u qhs + SSI (CF40, CR 20, goal 110-150) - check BSG achs Hypokalemia, hypomagnesemia - repleting, follow BMP Asthma controlled, continue prn albuterol Hypertension Continue home olmesartan and amlodipine Hypothyroidism Patient with elevated TSH of 10 on arrival, has been persistently high over the last several months. FT4 wnl. Continue home levothyroxine Medication nonadherence - Patient did not fill medications (specifically amlodipine-losartan) rx'd at last pcp visit (09/2021) for months and required adjustment (olmesartan) at heart failure clinic visit. Recommend close f/u w/ pcp. Multiple medication allergies - trial new medications w/ caution, preferably in hospital setting - follows allergy as outpatient Code: Full Diet: Low Na. DM2. Fluid restriction 2L. PPX: Lovenox. Brian cristibrenda Dispo: med tele (2) Ambulatory dysfunction: (3) Diabetes type 2, controlled: (4) Asthma: (5) HTN (hypertension): (6) Hypothyroidism, postablative: (7) Lower extremity edema: (8) Multiple drug allergies: (9) Chronic respiratory failure with hypoxia, on home O2 therapy: (10) Hypokalemia: (11) Hypomagnesemia: Admission and Anticipated Discharge Date Admission Date: February 17, 2022 Supervising Physician Co-Signing Physician Notes Resident Physician Supervision Note: I independently interviewed and examined the patient and verified the dickerson history and physical, reviewed labs and image studies and agree with resident Dr. Devine findings and care plan. Subjective Denies shortness of breath. Mostly feels unchanged. She complained of sweats overnight. Subjectively, her feet still appear swollen, but she states there is a slight improvement. Review of Systems Review of Systems: All systems reviewed & are unremarkable except as noted in HPI & below Physical Exam Physical Exam: General: Grossly A&O. NAD. Cooperative. HEENT: Atraumatic, normocephalic. EOMI. Jugular vein on right at 60 deg ~1 finger breadth. Pulm: Insp crackles at bases and midlung brooke. No wheezes. No accessory muscle use. Cardiac: RRR, -mrg. + bilateral LE edema below knees. Lower extremity appear c ircumferentially enlarged, however, difficult to appreciate pitting. Abdominal: Nontender, nondistended, soft. Results & Data Results & Data ([facility]) Vital Signs (Past 12 Hours) Vital Signs Temp Pulse Pulse Resp BP Pulse Ox 02/19/22 04:01 36.7 C 83 20 156/83 H 97 02/18/22 23:57 36.9 C 79 18 157/76 H 97 02/18/22 22:25 78 Resident Activity Tracking Resident Involvement: Resident Care Provided Care Provided: Adult Hospital Medicine (1) HTN (hypertension) Hypertension type: essential hypertension Qualified Code(s): I10 - Essential (primary) hypertension
[2022-02-19 07:55] LABS: Hematocrit (blood only) 37.6 % (37-47); Hemoglobin 12.1 g/dL (12.0-16.0); Mean Corpuscular Hemoglobin 28.5 pg (25-34); Mean Corpuscular Hgb Conc 32.2 g/dL (32-36); Mean Corpuscular Volume 88.5 fL (80-100); Mean Platelet Volume 9.4 fL (7.4-10.4); Platelet Count 240 K/uL (130-400); RDW Coefficient of Variation 14.2 % (11.5-14.5); Red Blood Count 4.25 M/uL (4.2-5.4); White Blood Count 7.87 K/uL (4.8-10.8)
[2022-02-19] MEDS: ENOXAPARIN INJ 40 MG/0.4 ML SYR SQ SCH (08:05)
[2022-02-19] MEDS: OLMESARTAN MEDOXOMIL 40 MG TAB PO SCH (08:05)
[2022-02-19] MEDS: INSULIN GLARGINE SOLOSTAR 100 UNITS/ML 3 ML PEN SC SCH (08:06)
[2022-02-19] MEDS: INSULIN ASPART PER UNIT SC SCH ×4 (08:14→20:55)
[2022-02-19 08:27] LABS: BUN Creatinine Ratio 28.6 (10-20); Calcium 8.3 mg/dl (8.5-10.1); Est GFR (African American) 79.4 ml/min; Est GFR (Non-African American) 68.5 ml/min; Magnesium 2.2 mg/dl (1.7-2.4); Potassium 3.6 mmol/L (3.5-5.1)
--- NOTE | 2022-02-19 10:15 | Electrocardiogram Report ---
Test Reason : Blood Pressure : / mmHG Vent. Rate : 105 BPM Atrial Rate : 105 BPM P-R Int : 180 ms QRS Dur : 090 ms QT Int : 356 ms P-R-T Axes : 072 027 057 degrees QTc Int : 470 ms Sinus tachycardia Septal infarct (cited on or before 19-OCT-2021) Abnormal ECG When compared with ECG of 19-OCT-2021 22:09, Questionable change in QRS axis Non-specific change in ST segment in Inferior leads T wave inversion no longer evident in Inferior leads Confirmed by Dash Fontanez ([id number]) on 02/19/2022 10:15:25 AM Referred By: Irish Ramos Confirmed By:Dash Fontanez
[2022-02-19] MEDS ORDERED: BUMETANIDE 3 MG in SYRINGE 0 ML IV ONE (10:30)
--- NOTE | 2022-02-19 10:30 | Electrocardiogram Report ---
Test Reason : Blood Pressure : / mmHG Vent. Rate : 083 BPM Atrial Rate : 083 BPM P-R Int : 196 ms QRS Dur : 086 ms QT Int : 394 ms P-R-T Axes : 085 098 080 degrees QTc Int : 462 ms Normal sinus rhythm Rightward axis Septal infarct (cited on or before 19-OCT-2021) Abnormal ECG When compared with ECG of 17-FEB-2022 16:37, (unconfirmed) Questionable change in QRS axis Confirmed by Dash Fontanez ([id number]) on 02/19/2022 10:30:08 AM Referred By: Irish Ramos Confirmed By:Dash Fontanez
[2022-02-19] MEDS ORDERED: BUMETANIDE 3 MG in SYRINGE 0 ML IV STA (15:51)
[2022-02-19] MEDS ORDERED: POTASSIUM CHLORIDE PWD 20 MEQ PACK PO STA (15:51)
[2022-02-19] MEDS: amLODIPine BESYLATE 5 MG TAB PO SCH (20:54)
[2022-02-19] MEDS ORDERED: INSULIN GLARGINE SOLOSTAR 100 UNITS/ML 3 ML PEN SC SCH (21:00)
[2022-02-20] MEDS: LEVOTHYROXINE SODIUM 175 MCG TABLET PO SCH (06:02)
[2022-02-20 07:44] LABS: Hemoglobin 11.6 g/dL (12.0-16.0); Mean Corpuscular Hemoglobin 28.2 pg (25-34); Mean Corpuscular Hgb Conc 32.2 g/dL (32-36); Mean Corpuscular Volume 87.6 fL (80-100); Mean Platelet Volume 9.7 fL (7.4-10.4); Platelet Count 240 K/uL (130-400); Red Blood Count 4.11 M/uL (4.2-5.4); White Blood Count 8.04 K/uL (4.8-10.8)
[2022-02-20] MEDS: INSULIN ASPART PER UNIT SC SCH ×2 (08:06→12:07)
[2022-02-20] MEDS: OLMESARTAN MEDOXOMIL 40 MG TAB PO SCH (08:07)
[2022-02-20] MEDS: INSULIN GLARGINE SOLOSTAR 100 UNITS/ML 3 ML PEN SC SCH (08:08)
[2022-02-20 08:17] LABS: BUN Creatinine Ratio 34.6 (10-20); Creatinine Clr Calc Pharmacy 76.7 ml/min; Est GFR (African American) 86.8 ml/min; Est GFR (Non-African American) 74.9 ml/min; Potassium 3.3 mmol/L (3.5-5.1)
[2022-02-20] MEDS: ENOXAPARIN INJ 40 MG/0.4 ML SYR SQ SCH (08:18)
[2022-02-20] MEDS ORDERED: BUMETANIDE 3 MG in SYRINGE 0 ML IV SCH (09:00)
[2022-02-20] MEDS ORDERED: POTASSIUM CHLORIDE PWD 20 MEQ PACK PO SCH (09:00)
--- NOTE | 2022-02-20 09:54 | Discharge Summary ---
Date of Service February 20, 2022 Admission HPI Per Admitting Provider This is a 76-year-old female with a history of HFpEF (NYHA Class II-III) type 2 diabetes, hypertension, asthma, recurrent falls who presented to [facility] for lower extremity edema. Patient was seen at heart failure clinic earlier today, where she was noticed to have appreciable leg swelling. She notes that over the past 4 weeks, her legs have progressively become more swollen despite increased Lasix doses. She also notes that over this time, she feels like her belly has been getting better. She says that over the last 3 weeks, she has gradually increased her Lasix dosing at the recommendation of her heart failure clinic. She said for the most part she has been compliant to the regimen; however, at nighttime, she has a lot of issues getting out of bed due to weakness, and out of this concern she would occasionally not take her nighttime dose. She denies any changes in diet. She denies any chest pain, palpitations, shortness of breath. Denies any nausea, vomiting, diarrhea. She denies any recent illnesses. Medications reviewed, include albuterol as needed, amlodipine 5 mg, EpiPen, furosemide 80 mg each morning, Levemir 30 units each morning, levothyroxine 175 mcg daily, metformin 500 twice daily, moxifloxacin 400 mg, olmesartan 40 mg daily, potassium chloride 20 mEq daily. She lives at home alone in a 5 bedroom, two-story house. She has a chairlift to get her out. She does endorse some falls at home, including one several months ago (was in the kitchen, tripped over her wheelchair) that resulted in a broken right hip. Thankfully, this was managed nonoperatively and with extensive therapy. She denies a history of snoring in the past, but because she lives alone now, doesn't know if she does/not. No waking up gasping for breath. She denies any regular use of alcohol, tobacco, or recreational drugs. Last TTE 10/2020: Normal left ventricular function without regional wall motion abnormalities, EF 55 to 60%, mild tricuspid regurgitation In the ED, patient was found to be notably hypertensive to 210/100 with pulse 110, respiratory rate 16, saturating 98% on room air. Labs demonstrated normal white count, sodium 135/chloride 95, potassium 3.8, BUN 24/creatinine 0.8, blood sugar 372, BNP 54, TSH 10.25 with free T4 1.09. Chest x-ray demonstrated no acute processes in the chest. ECG without acute conduction abnormalities, though nonspecific repolarization abnormalities appreciated in the inferior and anteroseptal leads Principal Diagnosis hypervolemia Discharge Exam Constitutional WD/WN, vitals as above Eyes PERRL, conjunctivae normal, anicteric sclerae Respiratory normal respiratory effort, lungs clear to auscultation Auscultation: no crackles, no rales, no rhonchi and no wheezes Cardiovascular Rate/Rhythm: regular rate and regular rhythm Heart Sounds: no gallop, no murmur and no cardiac rub Vessels: normal peripheral pulses; no JVD Extremities: + pedal edema (2+ b/l) Musculoskeletal no cyanosis or clubbing, extremities motor strength 5/5 Neurologic PERRL, EOMI, accommodation nl, no face palsy, no dysarthria CN's II-XI intact bilaterally and moves all extremities Psychiatric Orientation: alert and oriented x 3 Discharge Data Allergies Allergy/AdvReac Type Severity Reaction Status Date / Time aspirin Allergy Severe HIVES; Verified 02/17/22 18:46 DIFFICULTY BREATHING Benzodiazepines Allergy Mild Unknown Verified 02/17/22 18:46 doxycycline Allergy Mild Unknown Verified 02/17/22 18:46 aspartame Allergy Unknown Unknown Verified 02/17/22 18:46 diltiazem Allergy Unknown UNKNOWN Verified 02/17/22 18:46 REACTION melon Allergy Unknown Unknown Verified 02/17/22 18:46 moxifloxacin Allergy Unknown UNKNOWN Verified 02/17/22 18:46 REACTION nifedipine Allergy Unknown UNKNOWN Verified 02/17/22 18:46 REACTION simvastatin Allergy Unknown UNKNOWN Verified 02/17/22 18:46 REACTION PER PT vancomycin Allergy Unknown UNKNOWN Verified 02/17/22 18:46 REACTION colchicine AdvReac Intermediate Difficulty Verified 02/17/22 15:28 Breathing Consultations 02/17/22 18:46 ED Decision to Admit Stat Ordered Studies 02/17/22 17:57 US venous doppler LE BI Urgent Diabetes Follow up Diabetes Follow-up Needed for HgbA1c >9% Hospital Course (1) Diastolic heart failure: 76-year-old female with a history of HFpEF, type 2 diabetes, hypertension, asthma, and recurrent falls who presented to [facility] for 2 months of worsened lower extremity edema. Acute HFpEF : - supported by crackles, LE edema, mild JVD on exam, and 5.5kg wt gain on admission. Dry weight likely ~90kg. - albumin and BNP wnl - Echo: EF 55-60%. borderline LVH. mild MR. No regional WMA. Grade 1 diastolic dysfunction. No significant change from 10/2020. 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) - Closed right hip fracture sustained on 03/2021, treated nonoperatively Bilateral lower extremity edema: - Some component of CHF exacerbation, but also component of dependent edema given ambulatory dysfunction and wheelchair-bound status Chronic hypoxia, O2 dependence: - home O2 2L w/ exertion - recommended outpatient PFTs Type 2 Diabetes Mellitus - A1 7.5 (09/2021) -> 9.5 - resume home regimen metformin 500mg BID and Levimir qam Asthma controlled, continue prn albuterol Hypertension Continue home olmesartan and amlodipine Hypothyroidism Patient with elevated TSH of 10 on arrival, has been persistently high over the last several months. FT4 wnl. Continue home levothyroxine Multiple medication allergies - follows allergy as outpatient, consideration of further allergy testing in the event of adverse drug reactions (2) Ambulatory dysfunction: (3) Diabetes type 2, controlled: (4) Asthma: (5) HTN (hypertension): (6) Hypothyroidism, postablative: (7) Lower extremity edema: (8) Multiple drug allergies: (9) Chronic respiratory failure with hypoxia, on home O2 therapy: (10) Hypokalemia: (11) Hypomagnesemia: Total Time Total Time Spent Total Time Spent (In Minutes): 30 Discharge Plan Discharge Items Patient Disposition: Transfer Inpatient Rehab Fac Reason For Visit: HYPERVOLEMIA, NEED FOR DIURESIS Discharge Diagnosis: hypervolemia Condition on Discharge: Good Activity: Per Instructions section Non-emergency contact: Primary Care Provider and Machine Adjuster Leader Case Trim Call non-emergency contact if: you have any medication questions, your symptoms worsen and you have a fever Follow-up/Referrals: Irish Ramos MD [Primary Care Provider] - Diet: Heart Healthy and Low Sodium (2gm) Addtl Attending Provider Instructions: You were seen and admitted for concerns of congestive heart failure with worsening edema. For this you had your diuretic regimen changed to simplify your regimen and improve your continued control of your heart failure. This is the form of Bumex 3mg that you should take once daily. We are also having you set up to continue to work with our heart failure clinic once we have improvement in your strength at [facility]. Call 911 and go to the Emergency Room if: * You have tightness or pain in your chest that does not go away with rest or Nitroglycerin * You are very short of breath even with rest Call your doctor if any of the following symptoms or problems start or get worse: * Shortness of breath or difficulty breathing * Wake up at night short of breath * Chest pain * Cough * Swelling of your hands, fee, or legs * More fatigued or tired with your normal activity * Palpitations - sudden fast heart beats WEIGHT * Weigh yourself every morning after using the bathroom. * Use the same scale. * Wear the same amount of clothing. * Write your weight down on your chart. * Call your doctor if you gain more than 2-3 pounds in 1-2 days. MEDICATIONS * Use this discharge instruction sheet for instructions. * Take your medications at the time your doctor ordered. * Do not skip a dose of your medicines. * If you miss a dose of medicine, take as soon as possible, but DO NOT DOUBLE A DOSE. * Read your medicine information when you get home. * Know all of the side effects of your medicine. * Call your doctor's office if you have any side effects. * Be sure all of your doctors know what medicine and herbs you take (including cold, flu, and herbal medicine). * Pain Medicine: If you do not get relief from your pain, please call your doctor for help. Take the following with you to your follow-up doctor appointments: * Weight Chart * Medication List * List of questions Do not drink excessive alcohol, beer or wine. Pending Studies at Discharge: No Stand-Alone Forms: My [employer] Skilled Items Patient informed of condition?: Yes DNR: No Discharge Level of Care: Acute rehab Communicable Disease: No Discharge Prognosis: Stable Lines: None Urinary Catheter: No Medications and DC Order Prescriptions: New bumetanide 1 mg tablet 3 mg PO DAILY 30 Days Qty: 90 RF: 0 Continued (DME) OneTouch Verio test strips Strip See Rx Instructions .ROUTE .MEDSUPPLY Qty: 100 RF: 3 rosuvastatin 5 mg tablet See Rx Instructions PO .COMPLEX Qty: 3 RF: 0 levothyroxine 175 mcg tablet 175 mcg PO DAILYBB Qty: 90 RF: 3 (DME) Aerochamber Plus Flow-Vu Spacer See Rx Instructions .ROUTE .MEDSUPPLY Qty: 1 RF: 0 (DME) lancets [OneTouch Delica Lancets] 33 gauge misc See Rx Instructions .ROUTE .MEDSUPPLY Qty: 100 RF: 0 (DME) pen needle, diabetic [BD Ultra-Fine Micro Pen Needle] 32 gauge x 1/4" needle See Rx Instructions .ROUTE .MEDSUPPLY Qty: 50 RF: 0 (DME) Bed Side Commode Misc See Rx Instructions .Route Qty: 1 RF: 0 albuterol sulfate 90 mcg/actuation HFA aerosol inhaler 2 puff INHALATION Q6H PRN (Reason: Shortness Of Breath Or Wheezing) Qty: 18 RF: 6 moxifloxacin 400 mg tablet See Rx Instructions PO .COMPLEX Qty: 2 RF: 0 potassium chloride 20 mEq packet 20 meq PO DAILY RF: 0 multivitamin [Daily Multi-Vitamin] Tablet 1 tab PO QAM Qty: 30 RF: 0 Levemir U-100 Insulin 100 unit/mL Solution 30 unit SUBCUT QAM 30 Days Qty: 9 RF: 0 epinephrine [EpiPen 2-Ángel] 0.3 mg/0.3 mL auto-injector 0.953 mg IM Q3H PRN (Reason: anaphylaxis) Qty: 2 RF: 0 amlodipine 5 mg tablet 5 mg PO QPM RF: 0 metformin 500 mg Tablet Extended Release 24 Hr 500 mg PO BID RF: 0 olmesartan 40 mg tablet 40 mg PO QAM RF: 0 Discontinued furosemide 40 mg tablet 80 mg PO QAM RF: 0 Discharge Orders: Discharge Order (Routine); Ordered 02/20/22 Ordered By: Ronan Phipps Admission Data Admit Date/Time: 02/17/22 19:23 Attending Provider: Gabby Pennington Admit Provider: Marcos Villasenor Primary Care Provider: Irish Ramos Other Providers: Kenny Farfna ; [facility] Other Interventions: Discharge Summary Assessment (RN) Last Done: 02/20/22 11:13 Supervising Physician Co-Signing Physician Notes Resident Physician Supervision Note: I independently interviewed and examined the patient and verified the dickerson history and physical, reviewed labs and image studies and agree with resident Dr. Phipps findings and care plan. Resident Activity Tracking Resident Involvement: Resident Care Provided Care Provided: Adult Hospital Medicine
== END 2022-02-20 13:48 | DRG 291 ==
LOC: ED 16:10 → 2N 19:23 → SUATTDRO 19:23 → 2N 22:13

== ENCOUNTER 2022-07-06 20:11 | Inpatient (IN) ==
--- NOTE | 2022-07-06 21:04 | Emergency Department Note ---
Impression & Plan Pleural effusion, Hypoxia, Chest pain, Lymphedema ED Provider Note NAME: LACI SOLITARIO AGE: 76 SEX: F : 1945 ARRIVES VIA: Ambulance INFORMANT: Patient, ED PROVIDER(S): José Manuel Charlton DO CHIEF COMPLAINT: Chest pain HPI: The patient is a 76-year-old female who presented to the emergency department for an evaluation of chest pain. The patient describes pain in her right armpit. She states pain worsens with deep inspiration. She does complain of a cough. She denies having any hemoptysis. She denies having any fever. She states that her pain as well as her difficulty breathing of slowly been worsening. She normally wears oxygen at home but only when needed. She does not wear oxygen continuously. She started wearing her oxygen more over the course of the last few days. She has noticed some lower extremity swelling as well. She denies having any recent trauma. She denies having any headache. She denies having any changes to her medications. She is also seen at the CHF clinic. She states she has not been able to see her family doctor recently. ROS: See above HPI for pertinent positives & negatives. A total of 10 systems reviewed and were otherwise negative. PAST MEDICAL HISTORY: See Below PAST SURGICAL HISTORY: See Below FAMILY HISTORY: See Below SOCIAL HISTORY: See Below HOME MEDICATIONS: See Below ALLERGIES: See Below VITALS: See Below PHYSICAL EXAMINATION: GENERAL: Patient is awake alert in no acute distress patient is resting comfortably and showing no signs of anxiety EYES: The conjunctivae are clear. The pupils are round and reactive. EARS, NOSE, MOUTH AND THROAT: The nose is without any evidence of any deformity. Mucous membranes are moist. Tongue is midline. NECK: The neck is nontender and supple. RESPIRATORY: Diminished breath sounds are noted throughout. There were rales at both bases. There was mild conversational dyspnea. CARDIOVASCULAR: Regular rate and rhythm noted there no murmurs rubs or gallops normal S1 normal S2. GASTROINTESTINAL: The abdomen is soft. Abdomen is nontender. MUSCULOSKELETAL/EXTREMITIES: There is no evidence of gross deformity full range of motion is noted in the hips and shoulders. SKIN: Edema was noted bilaterally. NEUROLOGIC: Patient is awake alert and oriented x3 MEDICAL DECISION MAKING: The patient is a 76-year-old female who presented to the emergency department by ambulance for an evaluation of difficulty breathing and chest pain. The patient has a left-sided pleural effusion which is not new but the patient at this time is hypoxic. She responded well to supplemental oxygen. I discussed the patient's laboratory and radiographic studies with her. She was found to have lymphedema on physical exam which is not new but may be worse compared to baseline. Ultrasounds were obtained. Given the patient's degree of hypoxia I will discuss her case with the on-call [facility] hospitalist. Triage Nursing notes reviewed. Prior medical records reviewed Vital Signs: reviewed and remarkable for hypoxia and elevated blood pressure. Differential diagnosis: Reactive airway disease, pneumonia, pneumothorax, COPD, CHF, infections, cardiac ischemia, pulmonary embolism, musculoskeletal, gastrointestinal, as well as other pathologies. ER treatment provided: See below Diagnostics interpreted by me: ECG: EKG was obtained in the emergency department. My interpretation is normal sinus rhythm at 94 bpm. There is no ectopy. Poor R wave progression was noted. This was compared to a tracing from June 12, 2022. No changes were noted. Cardiac Monitoring: An order was placed for continuous cardiac monitoring. The monitor shows a rate of 94 bpm with sinus rhythm. Laboratory studies: As stated above and show below. Imaging studies: See below Consultation(s): I discussed this case with Dr. So who is on-call for the [facility]. Past Med/Surg History Medical History Acute diastolic (congestive) heart failure Ambulatory dysfunction Asthma Cardiac arrest Chronic edema Closed right hip fracture Diabetes mellitus with albuminuria Diastolic heart failure Dyslipidemia Elevated serum globulin level Financial difficulties Gait abnormality History of ectopic History of seizures as a child HTN (hypertension) Hx of pleurisy Hx of thyroid cancer Hypothyroidism, postablative Lower extremity edema Mild intermittent asthma Pleurisy without effusion Right knee DJD Shakiness Type 2 diabetes mellitus Type 2 diabetes mellitus with peripheral neuropathy Wheelchair bound Surgical History History of D&C Hx of brain surgery 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) Hx of section Hx of thyroidectomy Family History Father Stroke Mother Dementia Diabetes Other TIA (transient ischemic attack) Denies family history of Ovarian cancer Prostate cancer Myocardial infarction Breast cancer Colorectal cancer Social History Smoking Status: Never smoker Second Hand Exposure: No; Hx Alcohol Use: No Hx Substance Use: No Preferred Language: Bolivian Communication Ability: Effective Visual Impairment: No Limitations Hearing Ability: Normal Periodontal Assistant Required: No Beliefs That Will Affect Care: None marital status: / Current Living Situation: Alone current occupational status: retired Feels Safe at Home: Yes Seatbelt Use: always Assistive Devices: Bedside Commode, Glasses, Oxygen - Continuous and Wheelchair Allergies Allergies Allergy/AdvReac Type Severity Reaction Status Date / Time aspirin Allergy Severe HIVES; Verified 06/30/22 14:18 DIFFICULTY BREATHING Benzodiazepines Allergy Mild Unknown Verified 06/30/22 14:18 doxycycline Allergy Mild Unknown Verified 06/30/22 14:18 aspartame Allergy Unknown Unknown Verified 06/30/22 14:18 diltiazem Allergy Unknown UNKNOWN Verified 06/30/22 14:18 REACTION melon Allergy Unknown Unknown Verified 06/30/22 14:18 moxifloxacin Allergy Unknown UNKNOWN Verified 06/30/22 14:18 REACTION nifedipine Allergy Unknown UNKNOWN Verified 06/30/22 14:18 REACTION simvastatin Allergy Unknown UNKNOWN Verified 06/30/22 14:18 REACTION PER PT vancomycin Allergy Unknown UNKNOWN Verified 06/30/22 14:18 REACTION colchicine AdvReac Intermediate Difficulty Verified 06/30/22 14:18 Breathing Iodinated Contrast Media AdvReac Intermediate Rash Unverified 06/30/22 14:18 Home Meds Home Medications Medication Instructions Recorded Confirmed lancets 33 gauge (OneTouch Delica #100 ea 01/03/21 06/30/22 Lancets) pen needle, diabetic 32 gauge x #50 ea 01/03/21 06/30/22 1/4" (BD Ultra-Fine Micro Pen Needle) amlodipine 5 mg tablet 5 mg PO QPM 02/17/22 06/30/22 metformin 500 mg tablet,extended 1,000 mg PO BID 02/17/22 07/07/22 release 24 hr olmesartan 40 mg tablet 40 mg PO QAM 02/17/22 07/07/22 moxifloxacin 400 mg tablet See Rx Instructions PO .COMPLEX 06/30/22 07/07/22 cephalexin 500 mg capsule 500 mg PO TID 07/07/22 07/07/22 levothyroxine 137 mcg tablet 137 mcg PO DAILYBB 07/07/22 07/07/22 Previous Rx's Medication Instructions Recorded blood sugar diagnostic (OneTouch #100 ea 12/05/20 Verio test strips) insulin detemir U-100 100 unit/mL 30 unit (0.3 mL) subcut QAM 30 04/04/21 subcutaneous solution (Levemir days #9 mL U-100 Insulin) multivitamin (Daily Multi-Vitamin 1 tab PO QAM #30 tabs 04/04/21 tablet) Bed Side Commode #1 ea 08/28/21 albuterol sulfate 90 mcg/actuation 2 puff inhalation Q6H PRN 06/30/22 aerosol inhaler Shortness Of Breath Or Wheezing #18 grams albuterol sulfate 0.63 mg/3 mL 0.63 mg (3 mL) inhalation QID PRN 07/06/22 solution for nebulization shortness of breath or wheezing #90 mL Results & Data (ED) Vital Signs Vital Signs - 24 hr 07/06/22 20:26 07/06/22 20:32 07/06/22 20:32 Temperature 36.7 C Temperature Source Oral Pulse Rate 104 H Pulse Rate from SpO2 Sensor Pulse Rhythm Regular Respiratory Rate 20 Respiratory Effort / Characteristics Non-Labored Spontaneous SOB on Exertion Respiratory Depth Normal Shallow Respiratory Pattern Regular Blood Pressure 188/95 H Blood Pressure Mean 126 Pulse Oximetry 75 L 75 L Oxygen Delivery Method Room Air Room Air Nasal Cannula Oxygen Flow Rate 3 Sepsis Recent Fever Within 48 Hours No Sepsis New/Unexplained Change in Mental Status N/A Sepsis Action Taken by Nursing No Action Required Oxygen Flow Rate - Titration 3 Pulse Oximetry Post Tiitration 96 07/06/22 20:30 07/06/22 21:00 07/07/22 00:16 Temperature Temperature Source Pulse Rate 94 H Pulse Rate from SpO2 Sensor 93 H 93 H Pulse Rhythm Respiratory Rate 19 20 16 Respiratory Effort / Characteristics Respiratory Depth Respiratory Pattern Blood Pressure 187/90 H 188/87 H 177/86 H Blood Pressure Mean 122 120 116 Pulse Oximetry 97 96 95 Oxygen Delivery Method Nasal Cannula Nasal Cannula Oxygen Flow Rate 3 3 2 Sepsis Recent Fever Within 48 Hours Sepsis New/Unexplained Change in Mental Status Sepsis Action Taken by Nursing Oxygen Flow Rate - Titration Pulse Oximetry Post Tiitration 07/07/22 00:24 Temperature Temperature Source Pulse Rate Pulse Rate from SpO2 Sensor Pulse Rhythm Respiratory Rate Respiratory Effort / Characteristics Respiratory Depth Respiratory Pattern Blood Pressure Blood Pressure Mean Pulse Oximetry 96 Oxygen Delivery Method Nasal Cannula Oxygen Flow Rate 2 Sepsis Recent Fever Within 48 Hours Sepsis New/Unexplained Change in Mental Status Sepsis Action Taken by Nursing Oxygen Flow Rate - Titration Pulse Oximetry Post Tiitration Home Medications Current Medication List: was personally reviewed by me Laboratory Data Attestation: I reviewed the patient's lab results. Result diagrams: 07/06/22 20:00 07/06/22 20:00 Lab Results 07/06/22 07/06/22 07/06/22 Range/Units 20:00 20:00 20:00 WBC 7.98 (4.8-10.8) K/ul RBC 4.15 (3.93-5.22) M/uL Hgb 10.9 L (12.0-16.0) g/dl Hct 34.6 (34.1-44.9) % MCV 83.4 (80.0-100.0) fL MCH 26.3 (25.0-34.0) pg MCHC 31.5 L (32.0-36.0) g/dL RDW Std Deviation 43.8 (36.4-46.3) fL RDW Coeff of Smith 14.4 (11.5-14.5) % Plt Count 309 (130-400) K/uL MPV 10.5 (9.4-12.3) fL Immature Gran % (Auto) 0.4 % Neut % (Auto) 76.8 % Lymph % (Auto) 13.4 % [place] % (Auto) 6.9 % Eos % (Auto) 2.0 % Baso % (Auto) 0.5 % Neut # (Auto) 6.13 (1.4-6.5) K/uL Lymph # (Auto) 1.07 L (1.2-3.4) K/uL [place] # (Auto) 0.55 (0.24-0.82) K/uL Eos # (Auto) 0.16 (0-0.50) K/uL Baso # (Auto) 0.04 (0-0.2) K/uL Immature Gran # (Auto) 0.03 H (0.00-0.02) K/uL PT Cancelled INR Cancelled APTT Cancelled PTT Ratio Cancelled D-Dimer Cancelled Sodium 136 (136-145) mmol/L Potassium 4.2 (3.5-5.1) mmol/L Chloride 96 L (98-107) mmol/L Carbon Dioxide 32 (21-32) mmol/L Anion Gap 8 (3-11) BUN 17 (6-23) mg/dl Creatinine 0.83 (0.6-1.2) mg/dl Est Cr Clr Drug Dosing 74.5 ml/min Est GFR ( Amer) 80.5 ml/min Est GFR (Non-Af Amer) 69.5 ml/min BUN/Creatinine Ratio 20.5 H (10-20) Glucose 189 H (70-99(Fasting)) mg/dl Calcium 8.9 (8.5-10.1) mg/dl Total Bilirubin 0.5 (0.2-1.0) mg/dl AST 15 (13-39) U/L ALT 6 L (7-52) U/L Alkaline Phosphatase 80 (34-104) U/L Troponin I High Sens 8.6 (0-14) pg/ml Total Protein 8.4 H (6.0-8.3) gm/dl Albumin 3.7 (3.4-5.0) gm/dl Globulin 4.7 H (2.5-4.0) gm/dl Albumin/Globulin Ratio 0.8 L (0.9-2) Lipase 4 L (11-82) U/L SARS-CoV-2 (PCR) (Negative) Influenza Type A (PCR) (Neg) Influenza Type B (PCR) (Neg) RSV (RT-PCR) (Neg) 07/06/22 07/06/22 Range/Units 20:40 22:34 WBC (4.8-10.8) K/ul RBC (3.93-5.22) M/uL Hgb (12.0-16.0) g/dl Hct (34.1-44.9) % MCV (80.0-100.0) fL MCH (25.0-34.0) pg MCHC (32.0-36.0) g/dL RDW Std Deviation (36.4-46.3) fL RDW Coeff of Smith (11.5-14.5) % Plt Count (130-400) K/uL MPV (9.4-12.3) fL Immature Gran % (Auto) % Neut % (Auto) % Lymph % (Auto) % [place] % (Auto) % Eos % (Auto) % Baso % (Auto) % Neut # (Auto) (1.4-6.5) K/uL Lymph # (Auto) (1.2-3.4) K/uL [place] # (Auto) (0.24-0.82) K/uL Eos # (Auto) (0-0.50) K/uL Baso # (Auto) (0-0.2) K/uL Immature Gran # (Auto) (0.00-0.02) K/uL PT 10.9 INR 1.0 APTT 32.2 H PTT Ratio 1.2 D-Dimer 1750 H* Sodium (136-145) mmol/L Potassium (3.5-5.1) mmol/L Chloride (98-107) mmol/L Carbon Dioxide (21-32) mmol/L Anion Gap (3-11) BUN (6-23) mg/dl Creatinine (0.6-1.2) mg/dl Est Cr Clr Drug Dosing ml/min Est GFR ( Amer) ml/min Est GFR (Non-Af Amer) ml/min BUN/Creatinine Ratio (10-20) Glucose (70-99(Fasting)) mg/dl Calcium (8.5-10.1) mg/dl Total Bilirubin (0.2-1.0) mg/dl AST (13-39) U/L ALT (7-52) U/L Alkaline Phosphatase (34-104) U/L Troponin I High Sens (0-14) pg/ml Total Protein (6.0-8.3) gm/dl Albumin (3.4-5.0) gm/dl Globulin (2.5-4.0) gm/dl Albumin/Globulin Ratio (0.9-2) Lipase (11-82) U/L SARS-CoV-2 (PCR) NEGATIVE (Negative) Influenza Type A (PCR) Negative (Neg) Influenza Type B (PCR) Negative (Neg) RSV (RT-PCR) Negative (Neg) Administered Medications Discontinued Medications Furosemide (Furosemide 40 Mg/4 Ml Vial) 40 mg IV ONE ONE Stop: 07/07/22 00:31 Last Admin: 07/07/22 00:47 Dose: Not Given Documented By: OBINNA Imaging Data Attestation: I personally reviewed and interpreted this imaging study as follows: My Impression: Chest x-ray was obtained in the emergency department. My interpretation is cardiomegaly with pulmonary vascular congestion. There was a left-sided pleural effusion noted. Discharge Plan Visit Data Chief Complaint: Chest Pain Stated Complaint: Pain near armpit, Cough ED Provider: José Manuel Charlton Discharge Problem: Pleural effusion, Hypoxia, Chest pain, Lymphedema Patient Disposition: Being Evaluated by Hospitalist Forms Stand Alone Forms: My [facility] Prescriptions Prescriptions: No Action (DME) OneTouch Verio test strips Strip See Rx Instructions .ROUTE .MEDSUPPLY Qty: 100 3RF Rx Instructions: for once a day testing albuterol sulfate 90 mcg/actuation HFA aerosol inhaler 2 puff INHALATION Q6H PRN (Reason: Shortness Of Breath Or Wheezing) Qty: 18 1RF (DME) lancets [OneTouch Delica Lancets] 33 gauge misc See Rx Instructions .ROUTE .MEDSUPPLY Qty: 100 Rx Instructions: As directed (DME) pen needle, diabetic [BD Ultra-Fine Micro Pen Needle] 32 gauge x 1/4" needle See Rx Instructions .ROUTE .MEDSUPPLY Qty: 50 Rx Instructions: As directed (DME) Bed Side Commode Misc See Rx Instructions .Route Qty: 1 0RF Rx Instructions: As directed moxifloxacin 400 mg tablet See Rx Instructions PO .COMPLEX Rx Instructions: Do not take, bring to the allergy clinic for testing. albuterol sulfate 0.63 mg/3 mL solution for nebulization 0.63 mg inhalation QID PRN (Reason: shortness of breath or wheezing) Qty: 90 3RF multivitamin [Daily Multi-Vitamin] Tablet 1 tab PO QAM Qty: 30 0RF Levemir U-100 Insulin 100 unit/mL Solution 30 unit SUBCUT QAM 30 Days Qty: 9 0RF amlodipine 5 mg tablet 5 mg PO QPM metformin 500 mg Tablet Extended Release 24 Hr 1,000 mg PO BID olmesartan 40 mg tablet 40 mg PO QAM cephalexin 500 mg capsule 500 mg PO TID Rx Instructions: ordered 07/03/22 take for 7 days take morning,noon and bedtime levothyroxine 137 mcg tablet 137 mcg PO DAILYBB Referrals Referrals: Irish Ramos MD [Primary Care Provider] - : Chest pain Qualifiers: Chest pain type: unspecified Qualified Code(s): R07.9 - Chest pain, unspecified
[2022-07-06 21:13] LABS: Basophils # (auto) 0.04 K/uL (0-0.2); Basophils % (auto) 0.5 %; Eosinophils # (auto) 0.16 K/uL (0-0.50); Hematocrit (blood only) 34.6 % (34.1-44.9); Hemoglobin 10.9 g/dl (12.0-16.0); Immature Granulocytes # (auto) 0.03 K/uL (0.00-0.02); Immature Granulocytes % (auto) 0.4 %; Lymphocytes # (auto) 1.07 K/uL (1.2-3.4); Lymphocytes % (auto) 13.4 %; Mean Corpuscular Hemoglobin 26.3 pg (25.0-34.0); Mean Corpuscular Hgb Conc 31.5 g/dL (32.0-36.0); Mean Corpuscular Volume 83.4 fL (80.0-100.0); Mean Platelet Volume 10.5 fL (9.4-12.3); Monocytes # (auto) 0.55 K/uL (0.24-0.82); Monocytes % (auto) 6.9 %; Neutrophils # (auto) 6.13 K/uL (1.4-6.5); Neutrophils % (auto) 76.8 %; Platelet Count 309 K/uL (130-400); RDW Coefficient of Variation 14.4 % (11.5-14.5); RDW Standard Deviation 43.8 fL (36.4-46.3); Red Blood Count 4.15 M/uL (3.93-5.22); White Blood Count 7.98 K/ul (4.8-10.8)
[2022-07-06 21:34] LABS: Troponin I High Sensitivity 8.6 pg/ml (0-14)
[2022-07-06 21:44] LABS: Albumin Globulin Ratio 0.8 (0.9-2); Albumin Level 3.7 gm/dl (3.4-5.0); BUN Creatinine Ratio 20.5 (10-20); Bilirubin,Total 0.5 mg/dl (0.2-1.0); Calcium 8.9 mg/dl (8.5-10.1); Creatinine Clr Calc Pharmacy 74.5 ml/min; Est GFR (African American) 80.5 ml/min; Est GFR (Non-African American) 69.5 ml/min; Globulin 4.7 gm/dl (2.5-4.0); Potassium 4.2 mmol/L (3.5-5.1); Total Protein 8.4 gm/dl (6.0-8.3)
[2022-07-06 22:04] LABS: Influenza A virus by PCR Negative (Neg); Influenza B virus by PCR Negative (Neg); RSV by PCR Negative (Neg); SARS CoV2 RNA(COVID-19) InHosp NEGATIVE (Negative)
[2022-07-06 22:59] LABS: Partial Thromboplastin Ratio 1.2; Partial Thromboplastin Time 32.2 Seconds (21.0-31.0); Prothrombin Time 10.9 Seconds (9.0-12.0)
[2022-07-06 23:00] LABS: D Dimer 1750 ug/L FEU (0-500)
[2022-07-07] MEDS ORDERED: FUROSEMIDE 40 MG/4 ML VIAL IV ONE (00:30)
--- NOTE | 2022-07-07 01:41 | History & Physical Report ---
Date of Service July 07, 2022 Assessment & Plan (1) Hypoxia: Plan: ?pulmonary edema. improved with supplemental O2. Presently saturating well on 2L. No respiratory distress. 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 Well controlled. No wheezing on exam -Albuterol PRN (4) Hypothyroidism, postablative: Plan: Chronic. She has had elevated TSH, possibly contributing to fluid retention, weight gain, SOB and acute hypoxic respiratory failure -Continue Synthroid -Monitor TSH (5) HTN (hypertension): Plan: Chronic -Continue Amlodipine -Continue Olmesartan -Monitor History of Present Illness Chief Complaint: shortness of breath Primary Care Provider: Irish Ramos MD 76yo female presenting with shortness of breath. Symptoms have been persistent for the last several weeks. Today she developed some discomfort in the right axilla and back with deep breathing as well as runny nose, cough and sneezing. Also with weight gain - uncertain how much. She uses home O2 at home PRN but has been using it daily for the last several weeks. Patient hypoxic in triage at 75% on room air. Improved with supplemental O2 - now 94% on 2L Allergies Allergy/AdvReac Type Severity Reaction Status Date / Time aspirin Allergy Severe HIVES; Verified 06/30/22 14:18 DIFFICULTY BREATHING Benzodiazepines Allergy Mild Unknown Verified 06/30/22 14:18 doxycycline Allergy Mild Unknown Verified 06/30/22 14:18 aspartame Allergy Unknown Unknown Verified 06/30/22 14:18 diltiazem Allergy Unknown UNKNOWN Verified 06/30/22 14:18 REACTION melon Allergy Unknown Unknown Verified 06/30/22 14:18 moxifloxacin Allergy Unknown UNKNOWN Verified 06/30/22 14:18 REACTION nifedipine Allergy Unknown UNKNOWN Verified 06/30/22 14:18 REACTION simvastatin Allergy Unknown UNKNOWN Verified 06/30/22 14:18 REACTION PER PT vancomycin Allergy Unknown UNKNOWN Verified 06/30/22 14:18 REACTION colchicine AdvReac Intermediate Difficulty Verified 06/30/22 14:18 Breathing Iodinated Contrast Media AdvReac Intermediate Rash Unverified 06/30/22 14:18 Home Medications Medication Instructions Recorded Confirmed Type blood sugar diagnostic (OneTouch #100 ea 12/05/20 07/07/22 Rx Verio test strips) lancets 33 gauge (OneTouch Delica #100 ea 01/03/21 07/07/22 History Lancets) pen needle, diabetic 32 gauge x #50 ea 01/03/21 07/07/22 History 1/4" (BD Ultra-Fine Micro Pen Needle) insulin detemir U-100 100 unit/mL 30 unit (0.3 mL) subcut QAM 30 04/04/21 07/07/22 Rx subcutaneous solution (Levemir days #9 mL U-100 Insulin) Bed Side Commode #1 ea 08/28/21 07/07/22 Rx amlodipine 5 mg tablet 5 mg PO QPM 02/17/22 07/07/22 History olmesartan 40 mg tablet 40 mg PO QAM 02/17/22 07/07/22 History albuterol sulfate 90 mcg/actuation 2 puff inhalation Q6H PRN 06/30/22 07/07/22 Rx aerosol inhaler Shortness Of Breath Or Wheezing #18 grams moxifloxacin 400 mg tablet See Rx Instructions PO .COMPLEX 06/30/22 07/07/22 History albuterol sulfate 0.63 mg/3 mL 0.63 mg (3 mL) inhalation QID PRN 07/06/2206/19 Rx solution for nebulization shortness of breath or wheezing #90 mL cephalexin 500 mg capsule 500 mg PO TID 07/07/22 07/07/22 History levothyroxine 137 mcg tablet 137 mcg PO DAILYBB 07/07/22 07/07/22 History Past Med/Surg History Medical History Acute diastolic (congestive) heart failure Ambulatory dysfunction Asthma Cardiac arrest Chronic edema Closed right hip fracture Diabetes mellitus with albuminuria Diastolic heart failure Dyslipidemia Elevated serum globulin level Financial difficulties Gait abnormality History of ectopic History of seizures as a child HTN (hypertension) Hx of pleurisy Hx of thyroid cancer Hypothyroidism, postablative Lower extremity edema Mild intermittent asthma Pleurisy without effusion Right knee DJD Shakiness Type 2 diabetes mellitus Type 2 diabetes mellitus with peripheral neuropathy Wheelchair bound Surgical History History of D&C Hx of brain surgery 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) Hx of section Hx of thyroidectomy Family History Father Stroke Mother Dementia Diabetes Other TIA (transient ischemic attack) Denies family history of Ovarian cancer Prostate cancer Myocardial infarction Breast cancer Colorectal cancer Social History Smoking Status: Never smoker Second Hand Exposure: No; Hx Alcohol Use: No Hx Substance Use: No Preferred Language: Grenadian Communication Ability: Effective Visual Impairment: No Limitations Hearing Ability: Normal Core Microarchitect Required: No Beliefs That Will Affect Care: None marital status: / Current Living Situation: Alone current occupational status: retired Feels Safe at Home: Yes Seatbelt Use: always Assistive Devices: Bedside Commode, Glasses, Oxygen - Continuous and Wheelchair Review of Systems Review of Systems: All systems reviewed & are unremarkable except as noted in HPI & below Physical Exam Physical Exam: General: patient resting comfortably, NAD, non-toxic in appearance, AA&O x 4 Skin: warm, dry, intact, chronic lymphedema changes of bilateral LE HEENT: NC/AT, PERRL, EOMI, anicteric sclera, conjunctiva without injection, external ear normal to inspection and nontender, nares patent, moist mucus membranes, dentition intact, no oropharyngeal lesions, neck supple, trachea midline, no LAD, no thyromegaly, no JVD Heart: +S1/S2, regular, no m/r/g Lungs: equal air entry bilaterally, + crackles in bilateral lung brooke L > R Abd: +BS, soft, NT/ND, no masses/organomegaly/ascites Ext: warm, 2+ pulses in UE/LE bilaterally, no clubbing/cyanosis, lymphedema of bilateral LE with chronic skin changes Neuro: nonfocal, patient AA&O x 4, speech intact, no facial droop, moving all extremities on command with equal strength 5/5 Results & Data Results & Data ([facility]) Vital Signs (Past 12 Hours) Vital Signs Temp Pulse Resp BP Pulse Ox O2 Del Method O2 Flow Rate 07/07/22 00:24 96 Nasal Cannula 2 07/07/22 00:16 16 177/86 H 95 Nasal Cannula 2 07/06/22 21:00 20 188/87 H 96 3 07/06/22 20:30 94 H 19 187/90 H 97 Nasal Cannula 3 07/06/22 20:32 Nasal Cannula 3 07/06/22 20:32 75 L Room Air 07/06/22 20:26 36.7 C 104 H 20 188/95 H 75 L Room Air Laboratory Results Laboratory Results WBC 7.98 K/ul (4.8-10.8) 07/06/22 20:00 RBC 4.15 M/uL (3.93-5.22) 07/06/22 20:00 Hgb 10.9 g/dl (12.0-16.0) L 07/06/22 20:00 Hct 34.6 % (34.1-44.9) 07/06/22 20:00 MCV 83.4 fL (80.0-100.0) 07/06/22 20:00 MCH 26.3 pg (25.0-34.0) 07/06/22 20:00 MCHC 31.5 g/dL (32.0-36.0) L 07/06/22 20:00 RDW Std Deviation 43.8 fL (36.4-46.3) 07/06/22 20:00 RDW Coeff of Smith 14.4 % (11.5-14.5) 07/06/22 20:00 Plt Count 309 K/uL (130-400) 07/06/22 20:00 MPV 10.5 fL (9.4-12.3) 07/06/22 20:00 Immature Gran % (Auto) 0.4 % 07/06/22 20:00 Neut % (Auto) 76.8 % 07/06/22 20:00 Lymph % (Auto) 13.4 % 07/06/22 20:00 [place] % (Auto) 6.9 % 07/06/22 20:00 Eos % (Auto) 2.0 % 07/06/22 20:00 Baso % (Auto) 0.5 % 07/06/22 20:00 Neut # (Auto) 6.13 K/uL (1.4-6.5) 07/06/22 20:00 Lymph # (Auto) 1.07 K/uL (1.2-3.4) L 07/06/22 20:00 [place] # (Auto) 0.55 K/uL (0.24-0.82) 07/06/22 20:00 Eos # (Auto) 0.16 K/uL (0-0.50) 07/06/22 20:00 Baso # (Auto) 0.04 K/uL (0-0.2) 07/06/22 20:00 Immature Gran # (Auto) 0.03 K/uL (0.00-0.02) H 07/06/22 20:00 PT 10.9 Seconds (9.0-12.0) 07/06/22 22:34 INR 1.0 (0.9-1.1) 07/06/22 22:34 APTT 32.2 Seconds (21.0-31.0) H 07/06/22 22:34 PTT Ratio 1.2 07/06/22 22:34 D-Dimer 1750 ug/L FEU (0-500) H* 07/06/22 22:34 Sodium 136 mmol/L (136-145) 07/06/22 20:00 Potassium 4.2 mmol/L (3.5-5.1) 07/06/22 20:00 Chloride 96 mmol/L (98-107) L 07/06/22 20:00 Carbon Dioxide 32 mmol/L (21-32) 07/06/22 20:00 Anion Gap 8 (3-11) 07/06/22 20:00 BUN 17 mg/dl (6-23) 07/06/22 20:00 Creatinine 0.83 mg/dl (0.6-1.2) 07/06/22 20:00 Est Cr Clr Drug Dosing 74.5 ml/min 07/06/22 20:00 Est GFR ( Amer) 80.5 ml/min 07/06/22 20:00 Est GFR (Non-Af Amer) 69.5 ml/min 07/06/22 20:00 BUN/Creatinine Ratio 20.5 (10-20) H 07/06/22 20:00 Glucose 189 mg/dl (70-99(Fasting)) H 07/06/22 20:00 Calcium 8.9 mg/dl (8.5-10.1) 07/06/22 20:00 Total Bilirubin 0.5 mg/dl (0.2-1.0) 07/06/22 20:00 AST 15 U/L (13-39) 07/06/22 20:00 ALT 6 U/L (7-52) L 07/06/22 20:00 Alkaline Phosphatase 80 U/L (34-104) 07/06/22 20:00 Troponin I High Sens 8.6 pg/ml (0-14) 07/06/22 20:00 Total Protein 8.4 gm/dl (6.0-8.3) H 07/06/22 20:00 Albumin 3.7 gm/dl (3.4-5.0) 07/06/22 20:00 Globulin 4.7 gm/dl (2.5-4.0) H 07/06/22 20:00 Albumin/Globulin Ratio 0.8 (0.9-2) L 07/06/22 20:00 Lipase 4 U/L (11-82) L 07/06/22 20:00 SARS-CoV-2 (PCR) NEGATIVE (Negative) 07/06/22 20:40 Influenza Type A (PCR) Negative (Neg) 07/06/22 20:40 Influenza Type B (PCR) Negative (Neg) 07/06/22 20:40 RSV (RT-PCR) Negative (Neg) 07/06/22 20:40 PG Care Time/CCT Total # of Minutes Spent Total Time Spent with Patient: Total time spent is greater than 50% in coordination of care (as documented) at patient's floor/unit and/or counseling patient: Coding Level of Care Code 33051 Initial Inpt Care Lvl 3 Diagnoses Hypoxia R09.02 Diabetes mellitus with albuminuria E11.29; R80.9 Asthma J45.909 Hypothyroidism, postablative E89.0 HTN (hypertension) I10 Hypertension type: essential hypertension (1) HTN (hypertension) Hypertension type: essential hypertension Qualified Code(s): I10 - Essential (primary) hypertension
[2022-07-07] MEDS ORDERED: DEXTROSE 50% 50 ML SYRINGE IV PRN (04:05)
[2022-07-07] MEDS ORDERED: GLUCOSE 40% GEL 15 GM TUBE PO PRN (04:05)
[2022-07-07] MEDS ORDERED: ALBUTEROL HFA 8 GM INHALER INH PRN (04:05)
[2022-07-07] MEDS ORDERED: GLUCAGON FOR INJ 1 MG VIAL SQ PRN (04:05)
[2022-07-07] MEDS ORDERED: CARBOHYDRATES FOR HYPOGLYCEMIA PO PRN (04:05)
[2022-07-07] MEDS ORDERED: GLUCOSE 10 TAB/TUBE PO PRN (04:05)
[2022-07-07] MEDS: LEVOTHYROXINE SODIUM 137 MCG TABLET PO SCH (05:51)
--- NOTE | 2022-07-07 06:29 | Ultrasound Report ---
BILATERAL LOWER EXTREMITY VENOUS DOPPLER HISTORY: Acute pain and swelling of the lower legs swelling COMPARISON STUDY: None. FINDINGS: There is normal compressibility, flow, and augmentation within the bilateral lower extremit y deep venous systems. Limited visualization of the calf veins secondary to subcutaneous edema. IMPRESSION: No DVT within the right or left lower extremity. ACT 112: Negative or not required by law. Electronically signed by: Dashawn Ramírez M.D. 07/07/2022 6:28 AM
[2022-07-07 07:20] LABS: Estimated Average Glucose 226 mg/dl; Hemoglobin A1C 9.5 % (4.5-5.6)
[2022-07-07] MEDS: INSULIN ASPART PER UNIT SC SCH (07:57)
[2022-07-07] MEDS: OLMESARTAN MEDOXOMIL 40 MG TAB PO SCH (07:58)
[2022-07-07] MEDS: FUROSEMIDE 40 MG/4 ML VIAL IV SCH (07:58)
--- NOTE | 2022-07-07 07:59 | XRay Report ---
XR chest 1V portable HISTORY: 76 years-old Female Chest Pain . Acute atypical chest pain COMPARISON: CTA chest 06/12/2022 TECHNIQUE: Portable AP view of the chest FINDINGS: Cardiac silhouette is enlarged. Pulmonary vascular congestion and reticular interstitial densities. N o pneumothorax or large pleural effusion. Mild right hemidiaphragmatic elevation. The inferior left l camille base is only partially imaged. Degenerative changes of the shoulders and spine. IMPRESSION: Cardiomegaly with pulmonary vascular congestion and reticular interstitial opacities sugg estive of pulmonary edema versus interstitial pneumonia. ACT 112: Negative or not required by law. The above report was generated using voice recognition software. It may contain grammatical, syntax o r spelling errors. Electronically signed by: Dashawn Ramírez M.D. 07/07/2022 7:57 AM
[2022-07-07] MEDS ORDERED: LANTUS PER UNIT CHARGE SQ SCH (09:00)
--- NOTE | 2022-07-07 09:15 | Hospitalist Progress Note ---
Date of Service July 07, 2022 Assessment & Plan (1) Acute and chronic respiratory failure with hypoxia: (2) CHF exacerbation: (3) (HFpEF) heart failure with preserved ejection fraction: (4) Pleuritic chest pain: (5) Type 2 diabetes mellitus with peripheral neuropathy: (6) HTN (hypertension): (7) Venous stasis dermatitis of both lower extremities: (8) Ambulatory dysfunction: (9) Hypothyroidism, postablative: Plan 76-year-old female with HFpEF, type 2 diabetes, hyperlipidemia, hypothyroidism, asthma, chronic wheelchair-bound, lymphedema who presents with right pleuritic chest pain, and dyspnea. (1) Acute and chronic respiratory failure with hypoxia: - most likely contributor is acute exacerbation of HFpEF. Lower suspicion PE, pneumonia (neg procal and lack of infectious symptoms other than slightly increased cough), pericarditis - supplemental oxygen, goal >90 O2 sat (2) Acute pulmonary edema secondary to acute on chronic diastolic CHF - diuresing, IV Lasix 40mg qam w/ additional doses of 20mg as needed - Purewick ordered. monitor Is/Os and daily weights. net neg 4L this admission - had ordered nitro paste; patient refused - 02/18/22 echo w/ EF 55-60. Borderline concentric LVH. No RWMA. Mild mitral regurg. - will re-examine home regimen Lasix prior to discharge - will speak w/ case management about setting up device similar to Purewick at home. (4) Pleuritic chest pain: - most likely etiology is costochondritis and/or other MSK etiology such as chronic wheelchair use especially w/ right armpit area pain - IV Tylenol q8h. Had ordered Voltaren gel, but patient refused. - bilat venous duplex neg for dvt. d dimer - 06/12/22 cta neg for PE (5) Type 2 diabetes mellitus with peripheral neuropathy: - not at goal. a1c 9.5 - home regimen Levemir 30u qam. patient also rx'd metformin, but has been nonadherent - at patient request, home regimen equivalent continued this admission (24u Lantus qam) instead of standard basal+bolus regimen (6) HTN (hypertension): - continue home olmesartan. increasing home amlodipine 5mg qpm to 10mg qpm temporarily for better bp control in setting of chf exacerbation. (7) Venous stasis dermatitis of both lower extremities: - chronic and w/ lymphadema. Lasix above is for diastolic CHF. (8) Ambulatory dysfunction: - chronic, wheelchair bound 2/2 hx of CSF leak and complications in distant past - PT/OT evals ordered (9) Hypothyroidism, postablative: - continue home regimen Plan FEN/GI: HH, DM2, low Na. No maintenance IV fluids. ppx: Lovenox qpm dispo: med/surg code: full Admission and Anticipated Discharge Date Admission Date: July 07, 2022 Supervising Physician Co-Signing Physician Notes Resident Physician Supervision Note: I independently interviewed and examined the patient and verified the dickerson history and physical, reviewed labs and image studies and agree with resident findings and care plan. Subjective Patient is complaining of 7-8/10 right pleuritic chest pain. She has needed to use her prn home O2 2L continuously in the past 2 weeks. She endorses increased salt intake per discussion w/ one of the other staff members. She follows CHF clinic and was on PO lasix but has not taken it for 2-3 months because of inability to get to restroom on time. She has chronic lymphedema, and has not noticed significant change in this. Review of Systems Review of Systems: All systems reviewed & are unremarkable except as noted in HPI & below Physical Exam Physical Exam: General: Grossly A&O. NAD. Cooperative. HEENT: Atraumatic, normocephalic. EOMI. Difficult to appreciate JVD per bed angle and habitus. Pulm: Inspiratory crackles at bases. No respiratory distress. Wearing nasal c annula, was on 1.5L. Cardiac: RRR, -mrg. Bilateral lymphedema; difficult to appreciate pitting Abdominal: Nontender, nondistended, soft. Results & Data Results & Data ([facility]) Vital Signs (Past 12 Hours) Vital Signs Pulse Resp BP Pulse Ox O2 Del Method O2 Flow Rate 07/07/22 07:00 71 14 152/66 H 97 Room Air 07/07/22 06:00 80 20 168/87 H 95 Nasal Cannula 2 07/07/22 05:00 82 17 175/81 H 96 Nasal Cannula 2 07/07/22 04:07 94 H 19 172/82 H 94 Nasal Cannula 2 07/07/22 03:00 164/83 H 96 Nasal Cannula 2 07/07/22 02:00 169/82 H 94 Nasal Cannula 2 07/07/22 01:00 16 174/89 H 93 Nasal Cannula 2 07/07/22 00:24 96 Nasal Cannula 2 07/07/22 00:16 16 177/86 H 95 Nasal Cannula 2 Resident Activity Tracking Resident Involvement: Resident Care Provided Care Provided: Adult Hospital Medicine (1) HTN (hypertension) Hypertension type: essential hypertension Qualified Code(s): I10 - Essential (primary) hypertension
--- NOTE | 2022-07-07 10:37 | Hospitalist Progress Note ---
Date of Service July 07, 2022 Assessment & Plan (1) Diastolic heart failure: Plan hypoxia secondary to diastolic CHF -elevated BNP/normal procalcitonin favor CHF over infectious etiology. In the past had received symptomatic improvement with Lasix -Lasix 40mg IV daily, will monitor kidney function (currently stable with Cr of 0.83) -monitor daily weights, I/Os - as of 07/07 fluid status is negative 3300mL -last echo showed EF of 55-60% on 02/18/22 Insulin-dependent DM -Lantus 24 units SQ qAM -Goal blood sugar 100 - 140 -HgbA1C is 9.5%, identical to last test on 02/18/22 Asthma: -well-controlled, albuterol PRN Hypothyroidism, postablative: -elevated TSH could explain SOB due to fluid retention, possibly contributing to fluid retention, weight gain, SOB and acute hypoxic respiratory failure -continue levothyroxine 137 mcg and monitor TSH HTN (hypertension): -continue amlodipine 5mg and olmesartan 40 mg FENGI: diet = heart healthy/carb consistent/low salt Dispo: med/surg Full code Admission and Anticipated Discharge Date Admission Date: July 07, 2022 Brittanie Boyce is a 76 y/o F who uses a wheelchair and has a PMHx diastolic CHF (last EF was 55-60% on 02/18/22), insulin-dependent DM (last HgbA1c% was 9.5 on 02/18/22), asthma controlled with albuterol inhaler and PRN at-home oxygen, hypothyroidism s/p thyroid cancer/thyroidectomy, dyslipidemia and HTN. She presented to the ED on 07/06/22 with chief concern of SOB and pain in her right armpit area, worse with inspiration. Her SOB has been worsening the weeks leading up to her ED visit. Her at-home asthma/O2 regimen did not improve her symptoms. She reports BL LE edema, cough, post-tussive vomiting of clear liquid, and clear runny nose. No trauma, fevers, hemoptysis, or known sick contacts. In the ED she was noted to have conversational dyspnea on RA and hypoxia at 75% on SpO2 which improved to mid-high 90s on nasal cannula 2-3L. T 36.7 C, HR 104, RR 20 and BP 188/95. EKG and continuous cardiac monitoring showed NSR at 94 BPM, w/ poor R wave progression stable from 06/12/22 EKG. CXR showed cardiomegaly with pulmonary vascular congestion. Doppler US of the BL LE were negative for DVT. Today: in the past she successfully treated her BL LE edema with at-home SCDs which she discontinued about 4 weeks ago. She needs help setting up her at-home SCDs to resume therapy again. She also used to take "water pills" at home which she d/c 2-3 months ago as she did not appreciate any improvement in her LE edema. Additionally, frequent urination on the "water pills" was difficult for her to manage because she uses a wheelchair and lives alone. Recently she had an increase in her dietary sodium and she adds salt to some of her foods. Regarding her asthma, she no longer uses a nebulizer (needs help setting it up/learning how to use it) but uses an albuterol inhaler. Review of Systems Review of Systems: All systems reviewed & are unremarkable except as noted in HPI & below Physical Exam Physical Exam: Appearance: sitting upright in bed with nasal cannula, no acute distress Eyes: EOM intact BL ENMT: +submandibular LAD BL no coughing/runny nose noted throughout exam Respiratory: no conversational dyspnea, +inspiratory crackles BL, +R-sided p leuritic pain in R axilla region Cardiovascular: RRR, no murmur, no edema Gastrointestinal (Abdomen): normal bowel sounds, soft, nontender, no hepatosplenomegaly Skin: L UE:IV site clean and intact LE BL: no skin discoloration, no signs of skin breakdown, no calf pain to palpation BL Neurologic: answering questions appropriately Lymphatic: LE BL: 4+ edema, non-pitting Results & Data Results & Data ([facility]) Vital Signs (Past 12 Hours) Vital Signs Pulse Resp BP Pulse Ox O2 Del Method O2 Flow Rate 07/07/22 07:00 71 14 152/66 H 97 Room Air 07/07/22 06:00 80 20 168/87 H 95 Nasal Cannula 2 07/07/22 05:00 82 17 175/81 H 96 Nasal Cannula 2 07/07/22 04:07 94 H 19 172/82 H 94 Nasal Cannula 2 07/07/22 03:00 164/83 H 96 Nasal Cannula 2 07/07/22 02:00 169/82 H 94 Nasal Cannula 2 07/07/22 01:00 16 174/89 H 93 Nasal Cannula 2 07/07/22 00:24 96 Nasal Cannula 2 07/07/22 00:16 16 177/86 H 95 Nasal Cannula 2 Laboratory Results Abnormal lab results 07/06/22 07/06/22 07/06/22 Range/Units 20:00 20:00 22:34 Hgb 10.9 L (12.0-16.0) g/dl MCHC 31.5 L (32.0-36.0) g/dL Lymph # (Auto) 1.07 L (1.2-3.4) K/uL Immature Gran # (Auto) 0.03 H (0.00-0.02) K/uL APTT 32.2 H (21.0-31.0) Seconds D-Dimer 1750 H* (0-500) ug/L FEU Chloride 96 L (98-107) mmol/L BUN/Creatinine Ratio 20.5 H (10-20) Glucose 189 H (70-99(Fasting)) mg/dl POC Glucose (70-99) mg/dl Hemoglobin A1c (4.5-5.6) % ALT 6 L (7-52) U/L B-Natriuretic Peptide (0-100) pg/ml Total Protein 8.4 H (6.0-8.3) gm/dl Globulin 4.7 H (2.5-4.0) gm/dl Albumin/Globulin Ratio 0.8 L (0.9-2) Lipase 4 L (11-82) U/L 07/07/22 07/07/22 07/07/22 Range/Units 04:29 04:30 04:40 Hgb (12.0-16.0) g/dl MCHC (32.0-36.0) g/dL Lymph # (Auto) (1.2-3.4) K/uL Immature Gran # (Auto) (0.00-0.02) K/uL APTT (21.0-31.0) Seconds D-Dimer (0-500) ug/L FEU Chloride (98-107) mmol/L BUN/Creatinine Ratio (10-20) Glucose (70-99(Fasting)) mg/dl POC Glucose 189 H (70-99) mg/dl Hemoglobin A1c 9.5 H (4.5-5.6) % ALT (7-52) U/L B-Natriuretic Peptide 182 H (0-100) pg/ml Total Protein (6.0-8.3) gm/dl Globulin (2.5-4.0) gm/dl Albumin/Globulin Ratio (0.9-2) Lipase (11-82) U/L 07/07/22 Range/Units 07:48 Hgb (12.0-16.0) g/dl MCHC (32.0-36.0) g/dL Lymph # (Auto) (1.2-3.4) K/uL Immature Gran # (Auto) (0.00-0.02) K/uL APTT (21.0-31.0) Seconds D-Dimer (0-500) ug/L FEU Chloride (98-107) mmol/L BUN/Creatinine Ratio (10-20) Glucose (70-99(Fasting)) mg/dl POC Glucose 141 H (70-99) mg/dl Hemoglobin A1c (4.5-5.6) % ALT (7-52) U/L B-Natriuretic Peptide (0-100) pg/ml Total Protein (6.0-8.3) gm/dl Globulin (2.5-4.0) gm/dl Albumin/Globulin Ratio (0.9-2) Lipase (11-82) U/L Diagnostic Findings Impressions Chest X-Ray 07/06/22 20:50 XR chest 1V portable HISTORY: 76 years-old Female Chest Pain . Acute atypical chest pain COMPARISON: CTA chest 06/12/2022 TECHNIQUE: Portable AP view of the chest FINDINGS: Cardiac silhouette is enlarged. Pulmonary vascular congestion and reticular interstitial densities. No pneumothorax or large pleural effusion. Mild right hemidiaphragmatic elevation. The inferior left lung base is only partially imaged. Degenerative changes of the shoulders and spine. IMPRESSION: Cardiomegaly with pulmonary vascular congestion and reticular interstitial opacities suggestive of pulmonary edema versus interstitial pneumonia. ACT 112: Negative or not required by law. The above report was generated using voice recognition software. It may contain grammatical, syntax or spelling errors. Electronically signed by: Dashawn Ramírez M.D. 07/07/2022 7:57 AM Venous Doppler Study 07/06/22 20:52 BILATERAL LOWER EXTREMITY VENOUS DOPPLER HISTORY: Acute pain and swelling of the lower legs swelling COMPARISON STUDY: None. FINDINGS: There is normal compressibility, flow, and augmentation within the bilateral lower extremity deep venous systems. Limited visualization of the calf veins secondary to subcutaneous edema. IMPRESSION: No DVT within the right or left lower extremity. ACT 112: Negative or not required by law. Electronically signed by: Dashawn Ramírez M.D. 07/07/2022 6:28 AM Medications Administered Current Inpatient Medications Albuterol (Albuterol Hfa 8 Gm Inhaler) 2 puffs INH Q4H PRN PRN Reason: SOB or wheeze Stop: 08/06/22 04:04 Amlodipine Besylate (Amlodipine Besylate 5 Mg Tab) 5 mg PO QPM [facility] Stop: 08/06/22 20:59 Dextrose (Dextrose 50% 50 Ml Syringe) 25 - 50 ml IV UD PRN; Protocol PRN Reason: Hypoglycemia Protocol Stop: 08/06/22 04:04 Furosemide (Furosemide 40 Mg/4 Ml Vial) 40 mg IV DAILY [facility] Stop: 08/06/22 08:59 Last Admin: 07/07/22 07:58 Dose: 40 mg Glucagon (Glucagon For Inj 1 Mg Vial) 1 mg SQ UD PRN; Protocol PRN Reason: Hypoglycemia Protocol Stop: 08/06/22 04:04 Glucose (Glucose 40% Gel 15 Gm Tube) 15 - 30 gm PO UD PRN; Protocol PRN Reason: Hypoglycemia Protocol Stop: 08/06/22 04:04 Glucose (Glucose 10 Tab/Tube) 4 - 8 tab PO UD PRN; Protocol PRN Reason: Hypoglycemia Treatment Stop: 08/06/22 04:04 Insulin Glargine (Lantus Per Unit Charge) 24 units SQ QAM [facility] Stop: 08/06/22 08:59 Levothyroxine Sodium (Levothyroxine Sodium 137 Mcg Tablet) 137 mcg PO DAILYBB [facility] Stop: 08/06/22 06:29 Last Admin: 07/07/22 05:51 Dose: 137 mcg Miscellaneous (Carbohydrates For Hypoglycemia ) 15 - 30 gm PO UD PRN PRN Reason: Hypoglycemia Protocol Stop: 08/06/22 04:04 Olmesartan (Olmesartan Medoxomil 40 Mg Tab) 40 mg PO QAM [facility] Stop: 08/06/22 08:59 Last Admin: 07/07/22 07:58 Dose: 40 mg
[2022-07-07] MEDS: LANTUS PER UNIT CHARGE SQ SCH (11:17)
[2022-07-07] MEDS ORDERED: FUROSEMIDE INJ 20 MG/2 ML VIAL IV ONE (13:30)
--- NOTE | 2022-07-07 16:08 | Electrocardiogram Report ---
Test Reason : Blood Pressure : / mmHG Vent. Rate : 094 BPM Atrial Rate : 094 BPM P-R Int : 178 ms QRS Dur : 086 ms QT Int : 356 ms P-R-T Axes : 071 019 070 degrees QTc Int : 445 ms Normal sinus rhythm Possible Left atrial enlargement Low voltage QRS Septal infarct (cited on or before 19-OCT-2021) Abnormal ECG When compared with ECG of 12-JUN-2022 06:57, No significant change was found Confirmed by Dash Fontanez ([id number]) on 07/07/2022 4:07:41 PM Referred By: REFERRED SELF Confirmed By:Dash Fontanez
[2022-07-07] MEDS: DICLOFENAC SOD 1% GEL 100 GM TUBE EXT SCH (18:03)
[2022-07-07] MEDS: NITROGLYCERIN 2% OINTMENT 30GM TUBE EXT SCH (18:03)
[2022-07-07] MEDS ORDERED: LABETALOL HCL IV 5 MG/ML 20ML IV PRN (19:37)
[2022-07-07] MEDS ORDERED: ACETAMINOPHEN 1000 MG/100 ML IV IV SCH (20:15)
[2022-07-07] MEDS: ACETAMINOPHEN 1,000 MG/100 ML VIAL IV SCH (20:36)
[2022-07-07] MEDS: ENOXAPARIN INJ 40 MG/0.4 ML SYR SQ SCH (20:37)
[2022-07-07] MEDS: amLODIPine BESYLATE 5 MG TAB PO SCH (20:44)
[2022-07-07] MEDS ORDERED: amLODIPine BESYLATE 5 MG TAB PO SCH (21:00)
[2022-07-08] MEDS: NITROGLYCERIN 2% OINTMENT 30GM TUBE EXT SCH ×3 (00:41→10:36)
[2022-07-08] MEDS: DICLOFENAC SOD 1% GEL 100 GM TUBE EXT SCH ×2 (00:42→08:12)
[2022-07-08] MEDS: INSULIN ASPART PER UNIT SC SCH (00:44)
[2022-07-08] MEDS: ACETAMINOPHEN 1,000 MG/100 ML VIAL IV SCH ×3 (04:16→20:33)
[2022-07-08] MEDS: LEVOTHYROXINE SODIUM 137 MCG TABLET PO SCH (05:59)
[2022-07-08 06:45] LABS: Hemoglobin 9.5 g/dl (12.0-16.0); Mean Corpuscular Hemoglobin 26.2 pg (25.0-34.0); Mean Corpuscular Hgb Conc 31.7 g/dL (32.0-36.0); Mean Corpuscular Volume 82.9 fL (80.0-100.0); Mean Platelet Volume 9.5 fL (9.4-12.3); Platelet Count 289 K/uL (130-400); RDW Coefficient of Variation 14.2 % (11.5-14.5); Red Blood Count 3.62 M/uL (3.93-5.22); White Blood Count 6.12 K/ul (4.8-10.8)
[2022-07-08 07:02] LABS: BUN Creatinine Ratio 20.8 (10-20); Calcium 8.3 mg/dl (8.5-10.1); Creatinine Clr Calc Pharmacy 77.1 ml/min; Est GFR (African American) 88.2 ml/min; Est GFR (Non-African American) 76.1 ml/min; Magnesium 1.9 mg/dl (1.7-2.4); Potassium 3.4 mmol/L (3.5-5.1)
[2022-07-08] MEDS: OLMESARTAN MEDOXOMIL 40 MG TAB PO SCH (08:11)
[2022-07-08] MEDS: FUROSEMIDE 40 MG/4 ML VIAL IV SCH (08:11)
--- NOTE | 2022-07-08 08:57 | Hospitalist Progress Note ---
Date of Service July 08, 2022 Assessment & Plan (1) Acute and chronic respiratory failure with hypoxia: Plan: 76-year-old female with HFpEF, type 2 diabetes, hyperlipidemia, hypothyroidism, asthma, chronic wheelchair-bound, lymphedema who presents with right pleuritic chest pain, and dyspnea. (1) Acute and chronic respiratory failure with hypoxia: - most likely contributor is acute exacerbation of HFpEF. Lower suspicion PE, pneumonia, pericarditis - supplemental oxygen, goal >90 O2 sat (2) Acute pulmonary edema secondary to acute on chronic diastolic CHF - 02/18/22 echo w/ EF 55-60. Borderline concentric LVH. No RWMA. Mild mitral regurg. - poor adherence w/ diuretic regimen related to difficulty getting to bathroom - Purewick ordered. monitor Is/Os and daily weights. net neg 5.2L this admission - diuresing, IV Lasix 40mg qam w/ additional doses of 20mg as needed - per case management, PureWick not covered by insurance for outpatient use. Patient can consider non-suction type external catheters. (4) Pleuritic chest pain: - most likely etiology is costochondritis and/or other MSK etiology such as chronic wheelchair use especially w/ right armpit area pain - IV Tylenol q8h w/ some relief - bilat venous duplex neg for dvt - 06/12/22 cta neg for PE (5) Type 2 diabetes mellitus with peripheral neuropathy: - not at goal. a1c 9.5 - home regimen Levemir 30u qam. patient also rx'd metformin, but has been nonadherent - at patient request, home regimen equivalent continued this admission (24u Lantus qam) (6) HTN (hypertension): - continue home olmesartan. increasing home amlodipine 5mg qpm to 10mg qpm temporarily for better bp control in setting of CHF exacerbation. (7) Hypokalemia: - repleting, follow BMP (8) Venous stasis dermatitis of both lower extremities: - chronic and w/ lymphedema. Lasix above is for diastolic CHF exacerbation. 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 No maintenance IV fluids. ppx: Lovenox qpm dispo: med/surg code: full (2) CHF exacerbation: (3) (HFpEF) heart failure with preserved ejection fraction: (4) Pleuritic chest pain: (5) Type 2 diabetes mellitus with peripheral neuropathy: (6) HTN (hypertension): (7) Venous stasis dermatitis of both lower extremities: (8) Ambulatory dysfunction: (9) Hypothyroidism, postablative: Admission and Anticipated Discharge Date Admission Date: July 07, 2022 Supervising Physician Co-Signing Physician Notes Resident Physician Supervision Note: I independently interviewed and examined the patient and verified the dickerson history and physical, reviewed labs and image studies and agree with resident findings and care plan. Subjective Patient reports some improvement in her breathing today. She still has shortness of breath. However right pleuritic chest pain is somewhat improved. She denies other symptoms. Review of Systems Review of Systems: All systems reviewed & are unremarkable except as noted in HPI & below Physical Exam Physical Exam: General: Grossly A&O. NAD. Cooperative. HEENT: Atraumatic, normocephalic. EOMI. Pulm: Mild-mod insp crackles at bases. No respiratory distress. Cardiac: RRR, -mrg. Lymphedema bilateral lower extremity. Slightly decreased in size. Abdominal: Nontender, nondistended, soft. Results & Data Results & Data ([facility]) Vital Signs (Past 12 Hours) Vital Signs Temp Pulse Resp BP Pulse Ox O2 Del Method O2 Flow Rate 07/08/22 07:15 Nasal Cannula 2 07/08/22 07:16 36.6 C 72 18 156/77 H 72 L Nasal Cannula 2 07/07/22 23:00 36.8 C 80 20 147/73 H 95 Nasal Cannula 2 Resident Activity Tracking Resident Involvement: Resident Care Provided Care Provided: Adult Hospital Medicine (1) HTN (hypertension) Hypertension type: essential hypertension Qualified Code(s): I10 - Essential (primary) hypertension
[2022-07-08] MEDS ORDERED: POTASSIUM CHLORIDE PWD 20 MEQ PACK PO ONE ×3 (09:19→17:00)
[2022-07-08] MEDS: LANTUS PER UNIT CHARGE SQ SCH (09:41)
[2022-07-08] MEDS ORDERED: FUROSEMIDE INJ 20 MG/2 ML VIAL IV ONE (14:47)
[2022-07-08] MEDS: ENOXAPARIN INJ 40 MG/0.4 ML SYR SQ SCH (20:34)
[2022-07-08] MEDS: amLODIPine BESYLATE 5 MG TAB PO SCH (21:21)
[2022-07-09] MEDS: ACETAMINOPHEN 1,000 MG/100 ML VIAL IV SCH ×2 (05:35→12:27)
[2022-07-09] MEDS: LEVOTHYROXINE SODIUM 137 MCG TABLET PO SCH (06:15)
[2022-07-09 08:06] LABS: BUN Creatinine Ratio 22.2 (10-20); Calcium 8.4 mg/dl (8.5-10.1); Creatinine Clr Calc Pharmacy 73.4 ml/min; Est GFR (African American) 82.9 ml/min; Est GFR (Non-African American) 71.5 ml/min; Potassium 3.8 mmol/L (3.5-5.1)
--- NOTE | 2022-07-09 08:29 | Hospitalist Progress Note ---
Date of Service July 09, 2022 Assessment & Plan (1) Acute and chronic respiratory failure with hypoxia: Plan: 76-year-old female with HFpEF, type 2 diabetes, hyperlipidemia, hypothyroidism, asthma, chronic wheelchair-bound, lymphedema who presents with right pleuritic chest pain, and dyspnea. (1) Acute and chronic respiratory failure with hypoxia: - most likely contributor is acute exacerbation of HFpEF. Lower suspicion PE, pneumonia, pericarditis - supplemental oxygen, goal >90 O2 sat (2) Acute pulmonary edema secondary to acute on chronic diastolic CHF - 02/18/22 echo w/ EF 55-60. Borderline concentric LVH. No RWMA. Mild mitral regurg. - poor adherence w/ diuretic regimen related to difficulty getting to bathroom - Purewick ordered. monitor Is/Os and daily weights. net neg 5.2L this admission - diuresing, IV Lasix 40mg qam w/ additional doses of 20mg as needed - per case management, PureWick not covered by insurance for outpatient use. Patient can consider non-suction type external catheters. (4) Pleuritic chest pain: - most likely etiology is costochondritis and/or other MSK etiology such as chronic wheelchair use especially w/ right armpit area pain - IV Tylenol q8h w/ some relief - bilat venous duplex neg for dvt - 06/12/22 cta neg for PE (5) Type 2 diabetes mellitus with peripheral neuropathy: - not at goal. a1c 9.5 - home regimen Levemir 30u qam. patient also rx'd metformin, but has been nonadherent - at patient request, home regimen equivalent continued this admission (24u Lantus qam) (6) HTN (hypertension): - continue home olmesartan. increasing home amlodipine 5mg qpm to 10mg qpm temporarily for better bp control in setting of CHF exacerbation. (7) Hypokalemia: - repleting, follow BMP (8) Venous stasis dermatitis of both lower extremities: - chronic and w/ lymphedema. Lasix above is for diastolic CHF exacerbation. 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 No maintenance IV fluids. ppx: Lovenox qpm dispo: med/surg code: full (2) CHF exacerbation: (3) (HFpEF) heart failure with preserved ejection fraction: (4) Pleuritic chest pain: (5) Type 2 diabetes mellitus with peripheral neuropathy: (6) HTN (hypertension): (7) Venous stasis dermatitis of both lower extremities: (8) Ambulatory dysfunction: (9) Hypothyroidism, postablative: Admission and Anticipated Discharge Date Admission Date: July 07, 2022 Review of Systems Review of Systems: All systems reviewed & are unremarkable except as noted in HPI & below Physical Exam 2 Physical Exam: General: Grossly A&O. NAD. Cooperative. HEENT: Atraumatic, normocephalic. EOMI Pulm: CTAB. -wheezes, -rales, -rhonchi. No respiratory distress. Cardiac: RRR, -mrg. Radial pulses intact and symmetrical. Abdominal: Nontender, nondistended, soft. Results & Data Results & Data ([facility]) Vital Signs (Past 12 Hours) Vital Signs Temp Pulse Resp BP Pulse Ox O2 Del Method O2 Flow Rate 07/09/22 07:15 Nasal Cannula 2 07/09/22 07:28 36.9 C 80 16 151/76 H 94 07/08/22 20:49 36.7 C 91 H 20 165/77 H 91 Nasal Cannula 2 Resident Activity Tracking Resident Involvement: Resident Care Provided Care Provided: Adult Hospital Medicine (1) HTN (hypertension) Hypertension type: essential hypertension Qualified Code(s): I10 - Essential (primary) hypertension
[2022-07-09] MEDS: FUROSEMIDE 40 MG/4 ML VIAL IV SCH (08:41)
[2022-07-09] MEDS: LANTUS PER UNIT CHARGE SQ SCH (08:55)
[2022-07-09] MEDS: OLMESARTAN MEDOXOMIL 40 MG TAB PO SCH (08:55)
[2022-07-09] MEDS ORDERED: POLYETHYLENE (MIRALAX) 17 GM PACK PO SCH (09:00)
[2022-07-09] MEDS ORDERED: POTASSIUM CHLORIDE PWD 20 MEQ PACK PO ONE (12:15)
--- NOTE | 2022-07-09 19:20 | Discharge Summary ---
Date of Service July 09, 2022 Admission HPI Per Admitting Provider 76yo female presenting with shortness of breath. Symptoms have been persistent for the last several weeks. Today she developed some discomfort in the right axilla and back with deep breathing as well as runny nose, cough and sneezing. Also with weight gain - uncertain how much. She uses home O2 at home PRN but has been using it daily for the last several weeks. Patient hypoxic in triage at 75% on room air. Improved with supplemental O2 - now 94% on 2L Admission Exam Per Admitting Provider General: patient resting comfortably, NAD, non-toxic in appearance, AA&O x 4 Skin: warm, dry, intact, chronic lymphedema changes of bilateral LE HEENT: NC/AT, PERRL, EOMI, anicteric sclera, conjunctiva without injection, external ear normal to inspection and nontender, nares patent, moist mucus membranes, dentition intact, no oropharyngeal lesions, neck supple, trachea midline, no LAD, no thyromegaly, no JVD Heart: +S1/S2, regular, no m/r/g Lungs: equal air entry bilaterally, + crackles in bilateral lung brooke L > R Abd: +BS, soft, NT/ND, no masses/organomegaly/ascites Ext: warm, 2+ pulses in UE/LE bilaterally, no clubbing/cyanosis, lymphedema of bilateral LE with chronic skin changes Neuro: nonfocal, patient AA&O x 4, speech intact, no facial droop, moving all extremities on command with equal strength 5/5 Principal Diagnosis HFpEF exacerbation Discharge Exam General: Grossly A&O. NAD. Cooperative. HEENT: Atraumatic, normocephalic. EOMI Pulm: Faint insp crackles of bases, improved from admission exam. Symmetrical chest rise. No respiratory distress. Cardiac: RRR, -mrg. Lymphedema of BLE. Slightly improvement from admission exam. Abdominal: Nontender, nondistended, soft. Discharge Data Allergies Allergy/AdvReac Type Severity Reaction Status Date / Time aspirin Allergy Severe HIVES; Verified 06/30/22 14:18 DIFFICULTY BREATHING Benzodiazepines Allergy Mild Unknown Verified 06/30/22 14:18 doxycycline Allergy Mild Unknown Verified 06/30/22 14:18 aspartame Allergy Unknown Unknown Verified 06/30/22 14:18 diltiazem Allergy Unknown UNKNOWN Verified 06/30/22 14:18 REACTION melon Allergy Unknown Unknown Verified 06/30/22 14:18 moxifloxacin Allergy Unknown UNKNOWN Verified 06/30/22 14:18 REACTION nifedipine Allergy Unknown UNKNOWN Verified 06/30/22 14:18 REACTION simvastatin Allergy Unknown UNKNOWN Verified 06/30/22 14:18 REACTION PER PT vancomycin Allergy Unknown UNKNOWN Verified 06/30/22 14:18 REACTION colchicine AdvReac Intermediate Difficulty Verified 06/30/22 14:18 Breathing Iodinated Contrast Media AdvReac Intermediate Rash Unverified 06/30/22 14:18 Consultations 07/07/22 00:32 ED Decision to Admit Stat Ordered Studies Comprehensive Metabolic Panel 07/09/22 Range/Units 07:24 Sodium 139 (136-145) mmol/L Potassium 3.8 (3.5-5.1) mmol/L Chloride 98 (98-107) mmol/L Carbon Dioxide 37 H (21-32) mmol/L BUN 18 (6-23) mg/dl Creatinine 0.81 (0.6-1.2) mg/dl Glucose 130 H (70-99(Fasting)) mg/dl Calcium 8.4 L (8.5-10.1) mg/dl Intake and Output 07/09/22 07/09/22 07/09/22 06:59 14:59 22:59 Intake Total 200.000 / 200.000 Output Total 551 / 551 Balance -351.000 / -351.000 Intake: IV 200.000 / 200.000 Acetaminophen 1,000 mg In 100 200.000 / 200.000 ml @ 400 mls/hr IV Q8H [facility] Rx#: [id number] Output: Urine Amount (Catheter) 550 / 550 External 550 / 550 # Bowel Movements / Other: # Unmeasured Voids 1 1 Weight 95.3 kg Patient Weight 07/10/22 06:59 Weight 95.3 kg Chest X-Ray 07/06/22 20:50 XR chest 1V portable HISTORY: 76 years-old Female Chest Pain . Acute atypical chest pain COMPARISON: CTA chest 06/12/2022 TECHNIQUE: Portable AP view of the chest FINDINGS: Cardiac silhouette is enlarged. Pulmonary vascular congestion and reticular interstitial densities. No pneumothorax or large pleural effusion. Mild right hemidiaphragmatic elevation. The inferior left lung base is only partially imaged. Degenerative changes of the shoulders and spine. IMPRESSION: Cardiomegaly with pulmonary vascular congestion and reticular interstitial opacities suggestive of pulmonary edema versus interstitial pneumonia. ACT 112: Negative or not required by law. The above report was generated using voice recognition software. It may contain grammatical, syntax or spelling errors. Electronically signed by: Dashawn Ramírez M.D. 07/07/2022 7:57 AM Venous Doppler Study 07/06/22 20:52 BILATERAL LOWER EXTREMITY VENOUS DOPPLER HISTORY: Acute pain and swelling of the lower legs swelling COMPARISON STUDY: None. FINDINGS: There is normal compressibility, flow, and augmentation within the bilateral lower extremity deep venous systems. Limited visualization of the calf veins secondary to subcutaneous edema. IMPRESSION: No DVT within the right or left lower extremity. ACT 112: Negative or not required by law. Electronically signed by: Dashawn Ramírez M.D. 07/07/2022 6:28 AM Vent. Rate : 094 BPM Atrial Rate : 094 BPM P-R Int : 178 ms QRS Dur : 086 ms QT Int : 356 ms P-R-T Axes : 071 019 070 degrees QTc Int : 445 ms Normal sinus rhythm Possible Left atrial enlargement Low voltage QRS Septal infarct (cited on or before 19-OCT-2021) Abnormal ECG When compared with ECG of 12-JUN-2022 06:57, No significant change was found Confirmed by Dash Fontanez ([id number]) on 07/07/2022 4:07:41 PM Hospital Course (1) Acute and chronic respiratory failure with hypoxia: 76-year-old female with HFpEF, type 2 diabetes, hyperlipidemia, hypothyroidism, asthma, chronic wheelchair-bound, lymphedema who presented with right pleuritic chest pain and dyspnea. (1) Acute and chronic respiratory failure with hypoxia: - most likely contributor is acute exacerbation of HFpEF. Lower suspicion PE, pneumonia, pericarditis - using 2L O2 continuously upon discharge. f/u as outpatient as patient had been on a more PRN basis at baseline (2) Acute pulmonary edema secondary to acute on chronic diastolic CHF - 02/18/22 echo w/ EF 55-60. Borderline concentric LVH. No RWMA. Mild mitral regurg. - poor adherence w/ diuretic regimen related to difficulty getting to bathroom. Recommended trial non-suction external catheter (Purewick not covered by insurance); patient declines. - diuresed w/ IV Lasix 40-60mg daily. Net neg 7.1L and net neg 7kg - will be discharging home on Bumex 1mg PO daily and 20meq KCl. Recheck BMP at PCP visit; recommend d/c of KCl if not needed as 20meq dosing has risk of overcorrection - recommend close f/u w/ CHF clinic Carolee Dasilva (4) Pleuritic chest pain: - most likely etiology is costochondritis and/or other MSK etiology such as chronic wheelchair use especially w/ right armpit area pain - IV Tylenol 1000mg q8h w/ some relief; recommend PO tylenol 1000mg q8h prn - bilat venous duplex neg for dvt - 06/12/22 cta neg for PE (5) Type 2 diabetes mellitus with peripheral neuropathy: - not at goal. a1c 9.5 - home regimen Levemir 30u qam. patient also rx'd metformin, but has been nonadherent - PCP to follow (6) HTN (hypertension): - continue home olmesartan and home amlodipine 5mg. During hospitalization, amlodipine 10mg qpm temporarily for better bp control in setting of CHF exacerbation. (7) Hypokalemia: - repleted (8) Venous stasis dermatitis of both lower extremities: - chronic and w/ lymphedema. Lasix above is for diastolic CHF exacerbation. 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 PT: recommended inpt rehab, w/ home health as alternative as patient refused (10) Hypothyroidism, postablative: - continue home regimen Patient was full code this admission. Diabetic and low sodium diet recommended. (2) CHF exacerbation: (3) (HFpEF) heart failure with preserved ejection fraction: (4) Pleuritic chest pain: (5) Type 2 diabetes mellitus with peripheral neuropathy: (6) HTN (hypertension): (7) Venous stasis dermatitis of both lower extremities: (8) Ambulatory dysfunction: (9) Hypothyroidism, postablative: Total Time Total Time Spent Total Time Spent (In Minutes): <30 Discharge Plan Discharge Items Patient Disposition: Home - Home Health Services Reason For Visit: SOB Discharge Diagnosis: Exacerbation of HFpEF. Activity: Per Instructions section Non-emergency contact: Primary Care Provider Call non-emergency contact if: you have any medication questions and your symptoms worsen Follow-up/Referrals: Irish Ramos MD [Primary Care Provider] - 07/20/22 11:00 am () Alma Dasilva PA-C [Physician Lens Hardener] - 07/14/22 2:00 pm (chf f/u within 3 weeks) Diet: Low Sodium (2gm) Addtl Attending Provider Instructions: A discharge summary will be sent to your primary care physician to ensure continuity of care. You were admitted to the hospital for chest pain and trouble breathing. Your trouble breathing was found to likely be an exacerbation of your heart failure. You have been using supplemental oxygen to keep your oxygen level up. There was also some pulmonary edema from your congestive heart failure, we were able to get that excess fluid off of you using the water pill, Lasix (furosemide). Please keep in mind that the best way to keep off excess water weight will be to decrease sodium in your diet. You will be given a prescription of Bumex 1mg and KCl 20mg daily to take to help keep down your water weight. Please take daily weights at home, if you notice you have gained more than 2 pounds over 24hours then please take an additional dose of Bumex. Please follow up with your primary care doctor for follow up. Follow-up: * You should be seen by your primary physician within the next week. Medications: Your medication list has been reviewed and reconciled upon discharge to ensure accuracy and continuity of care. An updated list of all your medications is included with your hospital discharge paperwork. Please review this list close ly, and make note of any changes. * You were given a prescription for Albuterol nebulizer treatment. * You were given a prescription for Bumex 1mg and potassium chloride 20meq to take daily. * A script for a glucometer to measure glucose was sent in for you. Take your medications as instructed; do not skip a dose of your medicines. Make sure all of your doctors know every medicine you are taking (including oxha-khd-yxdyafu medicines, vitamins, and supplements). let your primary care provider know before taking any new medicines because some of these may interact with your current medications, or may make your symptoms worse. CONTACT YOUR PRIMARY CARE PROVIDER if you experience any of the following: * Fevers or shaking chills * Shortness of breath not relieved by inhalers, fainting * Sudden abdominal distension not relieved by catheterization. * Difficulty following your treatment plan, or difficulty taking medications CALL 911 OR GO TO THE EMERGENCY DEPARTMENT if you experience any of the following: * Sudden, severe abdominal pain or nausea/vomiting * Severe chest pain, or chest pain that radiates (moves) to your jaw or arm * Sudden, severe shortness of breath or difficulty breathing It was was our pleasure taking care of you here at [facility] . Thank you for allowing us to participate in your care. Pending Studies at Discharge: No Stand-Alone Forms: My [facility], Smoking Cessation Medications and DC Order Prescriptions: New (DME) blood-glucose meter [OneTouch Verio Meter] Misc See Rx Instructions .Route Qty: 1 0RF Rx Instructions: As directed bumetanide 1 mg tablet 1 mg PO DAILY Qty: 30 0RF potassium chloride 20 mEq tablet extended release 20 meq PO DAILY Qty: 30 0RF Continued (DME) OneTouch Verio test strips Strip See Rx Instructions .ROUTE .MEDSUPPLY Qty: 100 3RF Rx Instructions: for once a day testing albuterol sulfate 90 mcg/actuation HFA aerosol inhaler 2 puff INHALATION Q6H PRN (Reason: Shortness Of Breath Or Wheezing) Qty: 18 1RF (DME) lancets [OneTouch Delica Lancets] 33 gauge misc See Rx Instructions .ROUTE .MEDSUPPLY Qty: 100 Rx Instructions: As directed (DME) pen needle, diabetic [BD Ultra-Fine Micro Pen Needle] 32 gauge x 1/4" needle See Rx Instructions .ROUTE .MEDSUPPLY Qty: 50 Rx Instructions: As directed (DME) Bed Side Commode Misc See Rx Instructions .Route Qty: 1 0RF Rx Instructions: As directed moxifloxacin 400 mg tablet See Rx Instructions PO .COMPLEX Rx Instructions: Do not take, bring to the allergy clinic for testing. albuterol sulfate 0.63 mg/3 mL solution for nebulization 0.63 mg inhalation QID PRN (Reason: shortness of breath or wheezing) Qty: 90 3RF Levemir U-100 Insulin 100 unit/mL Solution 30 unit SUBCUT QAM 30 Days Qty: 9 0RF amlodipine 5 mg tablet 5 mg PO QPM olmesartan 40 mg tablet 40 mg PO QAM levothyroxine 137 mcg tablet 137 mcg PO DAILYBB Discontinued cephalexin 500 mg capsule 500 mg PO TID Rx Instructions: ordered 07/03/22 take for 7 days take morning,noon and bedtime Discharge Orders: Discharge Order (Routine); Ordered 07/09/22 Ordered By: Samantha Tapia/Other Patient Handouts: Preventing Deep Vein Thrombosis Admission Data Admit Date/Time: 07/07/22 01:59 Attending Provider: Gabby Pennington Admit Provider: Anay So Primary Care Provider: Irish Ramos Other Providers: Anay So ; [facility],Home Healthcare Other Interventions: Discharge Summary Assessment (RN) Last Done: 07/09/22 14:57 Supervising Physician Co-Signing Physician Notes Resident Physician Supervision Note: I independently interviewed and examined the patient and verified the dickerson history and physical, reviewed labs and image studies and agree with resident findings and care plan. Resident Activity Tracking Resident Involvement: Resident Care Provided Care Provided: [facility] Medicine Home Health Attestation I certify that this patient is under my care and that I, or a physicians electrician's assistant working with me, had a face to-face encounter that meets the home health [id number] encounter requirements with this patient. The encounter with the patient was in whole, or in part, for the following medical condition, which is the primary reason for home health care (list medical condition): ambulatory dysfunction, congestive heart failure I certify that, based on my findings, the following services are medically necessary home health services: Nursing, PT, OT My clinical findings support the need for the above services because: fall risk with transfer Further, I certify that my clinical findings support that this patient is homebound (i.e. absences from home require considerable and taxing effort and are for medical reasons or alevism services or infrequently or of short duration when for other reasons) because: Certification for Home Health Services: Based on the above findings, I certify that this patient is confined to the home and needs intermittent mcc care, physical therapy and/or speech therapy or continues to need occupational therapy. The patient is under my care, and I have initiated the establishment of the plan of care. This patient will be followed by a physician who will periodically review the plan of care.
== END 2022-07-09 15:27 | disposition home health service (06) | DRG 291 ==
LOC: ED 20:11 → EDINP 07-07 01:59 → SUATTDRO 07-07 01:59 → 3W 07-07 04:06

== ENCOUNTER 2022-09-02 22:18 | Inpatient (IN) ==
--- NOTE | 2022-09-02 22:25 | Emergency Department Note ---
Impression & Plan Lymphedema, Chest pain, Hypertension ED Provider Note NAME: LACI SOLITARIO AGE: 76 SEX: F : 1945 ARRIVES VIA: Ambulance INFORMANT: Patient, ED PROVIDER(S): Reese Lira MD Chief Complaint: Chest pain HPI: Patient presents due to concern for chest pains. The patient does describe right-sided chest pain that began 3 days ago has been intermittent but may be worse sometimes with breathing. Patient denies any shortness of breath nausea or vomiting. The patient is a noticed increased pedal edema. The patient states that she does suffer from lymphedema and this appears grossly unchanged from prior. The patient has been compliant with her medications including diuretics. Patient does wear 2 L of oxygen chronically at baseline. Patient denies any prior history of DVT or PE. Patient does take Bumex. Patient denies any falls or trauma. She has not taken anything for pain at home. ROS: See HPI for pertinent positives and negatives. A total of 10 systems were reviewed and otherwise negative. Past medical history: See below Surgical history: See below Social history: See below Physical Exam: GENERAL: NAD, wearing a mask, non-toxic. Wearing glasses, nasal cannula in place. EYE EXAM: Normal conjunctiva. PERRL, no anisocoria and EOM's grossly intact w/o pain. NECK: Supple, no nuchal rigidity, no adenopathy, non-tender. No signs of meningismus. FROM of the neck with good chin to chest and neck extension. No stridor. LUNGS: Clear to auscultation. Normal chest wall mechanics. HEART: NSR, no MRG. ABDOMEN: Abdomen soft, non-tender, normo-active bowel sounds, no masses, no rebo und or guarding. BACK: No CVA TTP. SKIN: No rashes and no bruising. UPPER EXTREMITIES: Upper extremities are grossly normal. LOWER EXTREMITIES: Grossly normal, diffuse edema symmetric. No erythema. NEURO EXAM: A&O x3, cranial nerves II-XII grossly intact, normal speech, moves all 4 extremities. Differential diagnoses: Cardiac ischemia, aortic dissection, pulmonary embolism, pneumothorax, pneumonia, pericarditis, myocarditis, esophageal rupture, GERD, cholecystitis, pancreatitis, musculoskeletal, as well as other pathologies. Course: Patient was seen and evaluated the bedside. Full history physical exam was performed. EKG interpreted by me Normal sinus rhythm, rate of 89 normal intervals normal axis no ST elevations Imaging Studies: See Below Cardiac monitoring: An order was placed for continuous cardiac monitoring. The monitor shows a rate of 88 with alongside rhythm. MDM: Patient presents due to concern for chest pain. Blood work is obtained. Chest x-ray also obtained. Blood work grossly unremarkable with a white count H&H and platelet count. The patient's kidney function is fairly unremarkable. BNP and troponin is not elevated. COVID-negative. Chest x-ray may show an element of volume overload. I did speak to the on-call hospitalist and ordered Bumex and Nitropaste as the patient was hypertensive. Patient was admitted by Dr. So Past Med/Surg History Medical History Acute diastolic (congestive) heart failure Ambulatory dysfunction Asthma Cardiac arrest Chronic edema Chronic respiratory failure with hypoxia, on home O2 therapy Closed right hip fracture Contusion of elbow Diabetes mellitus with albuminuria Diastolic heart failure Dyslipidemia Elevated serum globulin level Financial difficulties Gait abnormality History of ectopic History of seizures as a child HTN (hypertension) Hx of pleurisy Hx of thyroid cancer Hypokalemia Hypomagnesemia Hypothyroidism, postablative Injury of right leg Lower extremity edema Mild intermittent asthma Multiple drug allergies Obstructive pattern present on pulmonary function testing Pleurisy without effusion Right knee DJD Shakiness Type 2 diabetes mellitus Type 2 diabetes mellitus with peripheral neuropathy Wheelchair bound Surgical History History of D&C Hx of brain surgery 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) Hx of section Hx of thyroidectomy Family History Father Stroke Mother Dementia Diabetes Sister Macular degeneration Brother Macular degeneration Other TIA (transient ischemic attack) Denies family history of Ovarian cancer Prostate cancer Myocardial infarction Breast cancer Colorectal cancer Social History Smoking Status: Never smoker Second Hand Exposure: No; Hx Alcohol Use: No Hx Substance Use: No Preferred Language: Japanese Communication Ability: Effective Visual Impairment: No Limitations Hearing Ability: Normal [employer]er Required: No Beliefs That Will Affect Care: None marital status: / Current Living Situation: Alone current occupational status: retired 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 Feels Safe at Home: Yes Childhood Exposure to Second-Hand Smoke: No Dental Care, Regularly: Yes Physical Activity Frequency: Does not Exercise Seatbelt Use: always Sunscreen Use: No Assistive Devices: Glasses, Oxygen - Continuous and Wheelchair Allergies Allergies Allergy/AdvReac Type Severity Reaction Status Date / Time aspirin Allergy Severe HIVES; Verified 09/02/22 23:17 DIFFICULTY BREATHING colchicine Allergy Severe Difficulty Verified 09/02/22 23:17 Breathing Benzodiazepines Allergy Mild Unknown Verified 09/02/22 23:17 doxycycline Allergy Mild Unknown Verified 09/02/22 23:17 aspartame Allergy Unknown Unknown Verified 09/02/22 23:17 diltiazem Allergy Unknown UNKNOWN Verified 09/02/22 23:17 REACTION melon Allergy Unknown Unknown Verified 09/02/22 23:17 nifedipine Allergy Unknown UNKNOWN Verified 09/02/22 23:17 REACTION simvastatin Allergy Unknown UNKNOWN Verified 09/02/22 23:17 REACTION PER PT vancomycin Allergy Unknown UNKNOWN Verified 09/02/22 23:17 REACTION Iodinated Contrast Media AdvReac Intermediate Rash Verified 09/02/22 23:17 Home Meds Home Medications Medication Instructions Recorded Confirmed lancets 33 gauge (OneTouch Delica #100 ea 01/03/21 07/20/22 Lancets) pen needle, diabetic 32 gauge x #50 ea 01/03/21 07/20/22 1" (BD Ultra-Fine Micro Pen Needle) amlodipine 5 mg tablet 5 mg PO HS 02/17/22 09/02/22 olmesartan 40 mg tablet 40 mg PO QDL 02/17/22 09/02/22 levothyroxine 137 mcg tablet 137 mcg PO DAILYBB 07/07/22 09/02/22 Previous Rx's Medication Instructions Recorded blood sugar diagnostic (OneTouch #100 ea 12/05/20 Verio test strips) insulin detemir U-100 100 unit/mL 30 unit (0.3 mL) subcut QAM 30 04/04/21 subcutaneous solution (Levemir days #9 mL U-100 Insulin) Bed Side Commode #1 ea 08/28/21 albuterol sulfate 90 mcg/actuation 2 puff inhalation Q6H PRN 06/30/22 aerosol inhaler Shortness Of Breath Or Wheezing #18 grams blood-glucose meter (OneTouch #1 ea 07/09/22 Verio Meter) potassium chloride 20 mEq oral 20 meq PO DAILY #30 ea 07/14/22 packet albuterol sulfate 0.63 mg/3 mL 0.63 mg (3 mL) inhalation QID PRN 07/20/22 solution for nebulization shortness of breath or wheezing #90 mL bumetanide 1 mg tablet 1 mg PO DAILY #30 tabs 08/21/22 metformin 500 mg tablet 500 mg PO BID #180 tabs 08/21/22 doxycycline hyclate 50 mg tablet See Rx Instructions PO .COMPLEX #3 08/28/22 tabs Results & Data (ED) Vital Signs Vital Signs - 24 hr 09/03/22 00:00 09/03/22 00:30 09/03/22 01:00 Pulse Rate 83 87 86 Pulse Rate from SpO2 Sensor 83 87 87 Respiratory Rate 18 20 20 Blood Pressure 190/85 H 196/91 H 190/90 H Blood Pressure Mean 120 126 123 Pulse Oximetry 95 94 96 Home Medications Current Medication List: was personally reviewed by me Laboratory Data Attestation: I reviewed the patient's lab results. Result diagrams: 09/02/22 22:35 09/03/22 05:30 Lab Results 09/02/22 09/02/22 09/02/22 Range/Units 22:35 22:35 22:35 WBC 8.94 (4.8-10.8) K/ul RBC 4.80 (3.93-5.22) M/uL Hgb 13.2 (12.0-16.0) g/dl Hct 40.7 (34.1-44.9) % MCV 84.8 (80.0-100.0) fL MCH 27.5 (25.0-34.0) pg MCHC 32.4 (32.0-36.0) g/dL RDW Std Deviation 46.6 H (36.4-46.3) fL RDW Coeff of Smith 15.0 H (11.5-14.5) % Plt Count 293 (130-400) K/uL MPV 10.2 (9.4-12.3) fL Immature Gran % (Auto) 0.3 % Neut % (Auto) 78.6 % Lymph % (Auto) 13.4 % Gaines % (Auto) 5.1 % Eos % (Auto) 1.9 % Baso % (Auto) 0.7 % Neut # (Auto) 7.02 H (1.4-6.5) K/uL Lymph # (Auto) 1.20 (1.2-3.4) K/uL Gaines # (Auto) 0.46 (0.24-0.82) K/uL Eos # (Auto) 0.17 (0-0.50) K/uL Baso # (Auto) 0.06 (0-0.2) K/uL Immature Gran # (Auto) 0.03 H (0.00-0.02) K/uL PT 10.6 (9.0-12.0) Seconds INR 1.0 (0.9-1.1) APTT 27.5 (21.0-31.0) Seconds PTT Ratio 1.0 Sodium 139 (136-145) mmol/L Potassium 3.7 (3.5-5.1) mmol/L Chloride 100 (98-107) mmol/L Carbon Dioxide 31 (21-32) mmol/L Anion Gap 8 (3-11) BUN 21 (6-23) mg/dl Creatinine 0.80 (0.6-1.2) mg/dl Est Cr Clr Drug Dosing 73.5 ml/min Est GFR ( Amer) 84.2 ml/min Est GFR (Non-Af Amer) 72.6 ml/min BUN/Creatinine Ratio 26.3 H (10-20) Glucose 172 H (70-99(Fasting)) mg/dl Calcium 9.0 (8.5-10.1) mg/dl Total Bilirubin 0.5 (0.2-1.0) mg/dl AST 13 (13-39) U/L ALT 7 (7-52) U/L Alkaline Phosphatase 86 (34-104) U/L Troponin I High Sens 7.2 (0-14) pg/ml B-Natriuretic Peptide (0-100) pg/ml Total Protein 8.0 (6.0-8.3) gm/dl Albumin 3.9 (3.4-5.0) gm/dl Globulin 4.1 H (2.5-4.0) gm/dl Albumin/Globulin Ratio 1.0 (0.9-2) Lipase 9 L (11-82) U/L SARS-CoV-2, RNA, NAAT (NEGATIVE) 09/02/22 09/02/22 09/03/22 Range/Units 22:35 22:40 01:20 WBC (4.8-10.8) K/ul RBC (3.93-5.22) M/uL Hgb (12.0-16.0) g/dl Hct (34.1-44.9) % MCV (80.0-100.0) fL MCH (25.0-34.0) pg MCHC (32.0-36.0) g/dL RDW Std Deviation (36.4-46.3) fL RDW Coeff of Smith (11.5-14.5) % Plt Count (130-400) K/uL MPV (9.4-12.3) fL Immature Gran % (Auto) % Neut % (Auto) % Lymph % (Auto) % Gaines % (Auto) % Eos % (Auto) % Baso % (Auto) % Neut # (Auto) (1.4-6.5) K/uL Lymph # (Auto) (1.2-3.4) K/uL Gaines # (Auto) (0.24-0.82) K/uL Eos # (Auto) (0-0.50) K/uL Baso # (Auto) (0-0.2) K/uL Immature Gran # (Auto) (0.00-0.02) K/uL PT (9.0-12.0) Seconds INR (0.9-1.1) APTT (21.0-31.0) Seconds PTT Ratio Sodium (136-145) mmol/L Potassium (3.5-5.1) mmol/L Chloride (98-107) mmol/L Carbon Dioxide (21-32) mmol/L Anion Gap (3-11) BUN (6-23) mg/dl Creatinine (0.6-1.2) mg/dl Est Cr Clr Drug Dosing ml/min Est GFR ( Amer) ml/min Est GFR (Non-Af Amer) ml/min BUN/Creatinine Ratio (10-20) Glucose (70-99(Fasting)) mg/dl Calcium (8.5-10.1) mg/dl Total Bilirubin (0.2-1.0) mg/dl AST (13-39) U/L ALT (7-52) U/L Alkaline Phosphatase (34-104) U/L Troponin I High Sens 9.0 (0-14) pg/ml B-Natriuretic Peptide 53 (0-100) pg/ml Total Protein (6.0-8.3) gm/dl Albumin (3.4-5.0) gm/dl Globulin (2.5-4.0) gm/dl Albumin/Globulin Ratio (0.9-2) Lipase (11-82) U/L SARS-CoV-2, RNA, NAAT NEGATIVE (NEGATIVE) Administered Medications Amlodipine Besylate (Amlodipine Besylate 5 Mg Tab) 5 mg PO HS SABINE Stop: 10/03/22 04:09 Last Admin: 09/03/22 20:44 Dose: 5 mg Documented By: Admin: 09/03/22 05:23 Dose: Not Given Documented By: WEI Bumetanide (Bumetanide 1 Mg Tab) 1 mg PO DAILY SABINE Stop: 10/03/22 08:59 Last Admin: 09/03/22 08:29 Dose: 1 mg Documented By: ISHA Enoxaparin Sodium (Enoxaparin Inj 40 Mg/0.4 Ml Syr) 40 mg SQ QAM SABINE Stop: 10/03/22 08:59 Last Admin: 09/03/22 10:24 Dose: Not Given Documented By: ISHA Insulin Aspart (Insulin Aspart Per Unit) 0 units SC ACHS SABINE Stop: 10/03/22 07:29 Last Admin: 09/03/22 20:53 Dose: 8 units Documented By: ANKIT Co-signed By: CATRACHITO Admin: 09/03/22 18:09 Dose: 18 units Documented By: ISHA Co-signed By: BENNY Admin: 09/03/22 12:59 Dose: 11 units Documented By: ISHA Co-signed By: NAKUL Admin: 09/03/22 08:44 Dose: 7 units Documented By: ISHA Co-signed By: [id number] Insulin Glargine (Lantus Per Unit Charge) 15 units SQ BID SABINE Stop: 10/03/22 08:59 Last Admin: 09/03/22 20:53 Dose: 15 units Documented By: ANKIT Co-signed By: CATRACHITO Admin: 09/03/22 08:43 Dose: 15 units Documented By: ISHA Co-signed By: [id number] Levalbuterol HCl (Levalbuterol Hcl 0.63 Mg/3 Ml Neb) 0.63 mg NEB Q2H PRN; Protocol PRN Reason: shortness of breath Stop: 10/03/22 04:09 Last Admin: 09/03/22 13:55 Dose: 0.63 mg Documented By: KAVITA Levothyroxine Sodium (Levothyroxine Sodium 137 Mcg Tablet) 137 mcg PO DAILYBB SABINE Stop: 10/03/22 06:29 Last Admin: 09/03/22 05:54 Dose: 137 mcg Documented By: ANKIT Lidocaine (Lidocaine 5% 1 Patch) 1 patch TD QAM SABINE Stop: 10/03/22 08:59 Last Admin: 09/03/22 10:24 Dose: Not Given Documented By: ISHA Miscellaneous (Remove Lidoderm Patch) 1 each N/A DAILY@2100 SABINE Stop: 10/03/22 20:59 Last Admin: 09/03/22 20:56 Dose: Not Given Documented By: ANKIT Olmesartan (Olmesartan Medoxomil 40 Mg Tab) 40 mg PO QDL SABINE Stop: 10/03/22 11:29 Last Admin: 09/03/22 12:55 Dose: 40 mg Documented By: ISHA Potassium Chloride (Potassium Chloride Pwd 20 Meq Pack) 20 meq PO DAILY SABINE Stop: 10/03/22 08:59 Last Admin: 09/03/22 08:30 Dose: 20 meq Documented By: ISHA Umeclidinium/Vilanterol (Umeclidinium/Vilanterol 62.5/25mcg 7 Puffs/Inhaler) 1 puffs INH DAILY SABINE Stop: 10/03/22 08:59 Last Admin: 09/03/22 10:22 Dose: Not Given Documented By: ISHA Discontinued Medications Acetaminophen (Acetaminophen 500 Mg Tab) 1,000 mg PO NOW STA Stop: 09/03/22 00:45 Last Admin: 09/03/22 01:20 Dose: 1,000 mg Documented By: NAIMA Bumetanide 1 mg/ Syringe 4 mls @ 4 mls/min IV ONE ONE Stop: 09/03/22 00:45 Last Admin: 09/03/22 01:20 Dose: 4 mls/min Documented By: NAIMA Methylprednisolone 40 mg/ (Syringe) 0.64 mls @ 1.5 mls/min IV ONE ONE Stop: 09/03/22 04:31 Last Admin: 09/03/22 05:12 Dose: 1.5 mls/min Documented By: WEI Levalbuterol HCl (Levalbuterol Hcl 0.63 Mg/3 Ml Neb) 0.63 mg NEB Q6R SABINE; Protocol Stop: 10/03/22 06:59 Last Admin: 09/03/22 07:17 Dose: 0.63 mg Documented By: KAVITA Nitroglycerin (Nitroglycerin 2% Ointment 30gm Tube) 0.5 inch EXT NOW ONE Stop: 09/03/22 00:46 Last Admin: 09/03/22 01:20 Dose: 0.5 inch Documented By: NAIMA Imaging Data Radiologist's Impression: Chest X-Ray 09/02/22 22:40 XR chest 1V portable CLINICAL HISTORY: Chest Pain TECHNIQUE: Single frontal radiograph of the chest was obtained. Comparison: Comparison is made to chest radiograph 07/06/2022 and CTA chest 06/12/2020 FINDINGS: No lines and tubes are seen. The cardiomediastinal silhouette is normal. Reticular interstitial opacities are seen. Atelectasis in the left lung base. No evidence of pleural effusion or pneumothorax. IMPRESSION: Interstitial fibrotic changes are seen. Opacity in the left lung base likely represents atelectasis with or without superimposed aspiration/pneumonia. ACT 112: Negative or not required by law. Electronically signed by: Austin Ritter M.D. 09/03/2022 8:26 AM Discharge Plan Visit Data Chief Complaint: Chest Pain ED Provider: Reese Lira Discharge Problem: Lymphedema, Chest pain, Hypertension Patient Disposition: Admitted As Inpatient Discharge Instructions Interventions: ED Discharge Assessment Last Done: 09/03/22 04:10
[2022-09-02 23:00] LABS: Basophils # (auto) 0.06 K/uL (0-0.2); Basophils % (auto) 0.7 %; Eosinophils # (auto) 0.17 K/uL (0-0.50); Eosinophils % (auto) 1.9 %; Hematocrit (blood only) 40.7 % (34.1-44.9); Hemoglobin 13.2 g/dl (12.0-16.0); Immature Granulocytes # (auto) 0.03 K/uL (0.00-0.02); Immature Granulocytes % (auto) 0.3 %; Lymphocytes % (auto) 13.4 %; Mean Corpuscular Hemoglobin 27.5 pg (25.0-34.0); Mean Corpuscular Hgb Conc 32.4 g/dL (32.0-36.0); Mean Corpuscular Volume 84.8 fL (80.0-100.0); Mean Platelet Volume 10.2 fL (9.4-12.3); Monocytes # (auto) 0.46 K/uL (0.24-0.82); Monocytes % (auto) 5.1 %; Neutrophils # (auto) 7.02 K/uL (1.4-6.5); Neutrophils % (auto) 78.6 %; Platelet Count 293 K/uL (130-400); RDW Standard Deviation 46.6 fL (36.4-46.3); White Blood Count 8.94 K/ul (4.8-10.8)
[2022-09-02 23:11] LABS: Partial Thromboplastin Time 27.5 Seconds (21.0-31.0); Prothrombin Time 10.6 Seconds (9.0-12.0)
[2022-09-02 23:14] LABS: Albumin Level 3.9 gm/dl (3.4-5.0); BUN Creatinine Ratio 26.3 (10-20); Bilirubin,Total 0.5 mg/dl (0.2-1.0); Creatinine Clr Calc Pharmacy 73.5 ml/min; Est GFR (African American) 84.2 ml/min; Est GFR (Non-African American) 72.6 ml/min; Globulin 4.1 gm/dl (2.5-4.0); Potassium 3.7 mmol/L (3.5-5.1)
[2022-09-02 23:18] LABS: Troponin I High Sensitivity 7.2 pg/ml (0-14)
[2022-09-03] MEDS ORDERED: ACETAMINOPHEN 500 MG TAB PO STA (00:44)
[2022-09-03] MEDS ORDERED: BUMETANIDE 1 MG in SYRINGE 0 ML IV ONE (00:44)
[2022-09-03] MEDS ORDERED: NITROGLYCERIN 2% OINTMENT 30GM TUBE EXT ONE (00:45)
--- NOTE | 2022-09-03 00:47 | History & Physical Report ---
Date of Service September 03, 2022 Assessment & Plan (1) Pleuritic chest pain: Plan: Several days of right-sided pleuritic chest pain and shortness of breath, with some wheezes on exam. Suspect possible exacerbation of obstructive lung disease (newly diagnosed via PFTs - see below). Suspect somatic rib dysfunction is also playing a role in the pain. Patient is euvolemic on exam and CXR/BNP unremarkable - do not suspect acute HFpEF. Chest pain does not appear anginal and EKG/Trop unremarkable - unlikely to be ACS. - hsTroponin 7.2 - will repeat now - will give SoluMedrol 40mg IV x1 now - defer further steroid dosing to primary team - will schedule Xopenex nebs Q6H scheduled, Q2H PRN - administer Lidocaine patch to right chest - Tylenol PRN for chest pain - s/p Bumex 1mg IV in ED - continue with home dose Bumex - currently satting well on 2L/min NC (home dose) (2) Obstructive pattern present on pulmonary function testing: Plan: PFTs done on 07/31 for chronic respiratory failure even when euvolemic: results showing FEV1 37%, minimal post-bronchodilator change, and severely reduced DLCO - compatible with COPD (would be GOLD-3). Patient is a never smoker. - ordered alpha-1 anti-trypsin - SoluMedrol as stated above - scheduled and PRN Xopenex as stated above - will start Anoro Ellipta - f/u with PCP for further management; recommend outpatient Pulmonology consult as well - defer to PCP (3) (HFpEF) heart failure with preserved ejection fraction: Plan: Chronic. EF 55-60% per last TTE in 02/2022. Currently euvolemic, with BNP WNL and CXR without evidence for pulmonary vascular congestion. - TTE ordered - pending - continue with home dose Bumex as stated above - strict I/Os, daily weights, salt-restricted diet (4) HTN (hypertension): Plan: Chronic. Hypertensive to 190s/90s in the ED which appears largely related to pain. - Tylenol PRN and Lidocaine patch for right chest pain, as stated above - give home Amlodipine now (usually takes this at midnight) - continue Olmesartan (5) Lymphedema: Plan: Chronic, without exacerbation. (6) Type 2 diabetes mellitus with peripheral neuropathy: Plan: Chronic. A1c 9.3 in 06/2022. - SSI and basal dosing while hospitalized (7) Asthma: Plan: Chronic. With comorbid obstructive disease suspicious for COPD. - Xopenex as stated above (8) Hypothyroidism, postablative: Plan: Chronic. Continue home Synthroid. (9) Ambulatory dysfunction: Plan: Chronic. Restricted to wheel chair only. - fall precautions Plan FEN/GI: heart-healthy/DM2 diet DVT Prophylaxis: Lovenox SQ Code Status: full code Disposition: med/surg History of Present Illness Chief Complaint: chest pain Primary Care Provider: Irish Ramos MD Carli Logan is a 76yo female with PMHx significant for HFpEF (EF 55-60% in 02/2022), asthma, chronic hypoxic respiratory failure (2L on exertion), T2DM (A1c 9.3 on 07/14/2022), HTN, lymphedema, hypothyroidism, and ambulatory dysfunc tion. Patient presented to [facility] ED on 09/03 for right-sided inspiratory pleuritic chest pain with associated shortness of breath and fatigue x3 days. Patient reports orthopnea as well although says this may be more chronic. Denies increase in chronic LE edema. Denies recent fever/chills, cough, respiratory illness. Of note the patient recently underwent PFT testing, due to chronic respiratory failure even when euvolemic, on 07/31: results showing FEV1 37%, minimal post- bronchodilator change, and severely reduced DLCO - compatible with COPD (would be GOLD-3). Patient has not yet spoken to her PCP about these results. She does use Albuterol only occasionally and reports a chronic history of asthma, but says she is a never smoker. Denies alcohol use or drug use. Taking medications as prescribed without recent changes. Lives alone in a multi-level home and has stair glide between floors and ramp to enter. Mostly stays on 1st floor. Wheel-chair dependent, but proficient in ADLs and most iADLs. In the ED patient was hypertensive to 207/106. Afebrile and satting well on 2L/min NC. hsTroponin negative x1. EKG NSR without ST/T wave abnormalities. BNP 53. CBC/CMP WNL and COVID-19 negative. CXR without evidence for pulmonary vascular congestion or consolidations/opacities. Patient was given Tylenol 1g IV x1, Bumex 1mg IV x1, and Nitropaste 0.5 inch. Allergies Allergy/AdvReac Type Severity Reaction Status Date / Time aspirin Allergy Severe HIVES; Verified 09/02/22 23:17 DIFFICULTY BREATHING colchicine Allergy Severe Difficulty Verified 09/02/22 23:17 Breathing Benzodiazepines Allergy Mild Unknown Verified 09/02/22 23:17 doxycycline Allergy Mild Unknown Verified 09/02/22 23:17 aspartame Allergy Unknown Unknown Verified 09/02/22 23:17 diltiazem Allergy Unknown UNKNOWN Verified 09/02/22 23:17 REACTION melon Allergy Unknown Unknown Verified 09/02/22 23:17 nifedipine Allergy Unknown UNKNOWN Verified 09/02/22 23:17 REACTION simvastatin Allergy Unknown UNKNOWN Verified 09/02/22 23:17 REACTION PER PT vancomycin Allergy Unknown UNKNOWN Verified 09/02/22 23:17 REACTION Iodinated Contrast Media AdvReac Intermediate Rash Verified 09/02/22 23:17 Home Medications Medication Instructions Recorded Confirmed Type blood sugar diagnostic (IngenicoTouch #100 ea 12/05/20 07/20/22 Rx Verio test strips) lancets 33 gauge (OneTouch Delica #100 ea 01/03/21 07/20/22 History Lancets) pen needle, diabetic 32 gauge x #50 ea 01/03/21 07/20/22 History 1/4" (BD Ultra-Fine Micro Pen Needle) insulin detemir U-100 100 unit/mL 30 unit (0.3 mL) subcut QAM 30 04/04/21 Rx subcutaneous solution (Levemir days #9 mL U-100 Insulin) Bed Side Commode #1 ea 08/28/21 07/20/22 Rx amlodipine 5 mg tablet 5 mg PO HS 02/17/22 09/02/22 History olmesartan 40 mg tablet 40 mg PO QDL 02/17/22 09/02/22 History albuterol sulfate 90 mcg/actuation 2 puff inhalation Q6H PRN 06/30/22 09/02/22 Rx aerosol inhaler Shortness Of Breath Or Wheezing #18 grams levothyroxine 137 mcg tablet 137 mcg PO DAILYBB 07/07/22 09/02/22 History blood-glucose meter (IngenicoTouch #1 ea 07/09/22 07/20/22 Rx Verio Meter) potassium chloride 20 mEq oral 20 meq PO DAILY #30 ea 07/14/22 09/02/22 Rx packet albuterol sulfate 0.63 mg/3 mL 0.63 mg (3 mL) inhalation QID PRN 07/20/22 09/02/22 Rx solution for nebulization shortness of breath or wheezing #90 mL bumetanide 1 mg tablet 1 mg PO DAILY #30 tabs 08/21/22 09/02/22 Rx metformin 500 mg tablet 500 mg PO BID #180 tabs 08/21/22 09/02/22 Rx doxycycline hyclate 50 mg tablet See Rx Instructions PO .COMPLEX #3 08/28/22 09/02/22 Rx tabs Past Med/Surg History Medical History Acute diastolic (congestive) heart failure Ambulatory dysfunction Asthma Cardiac arrest Chronic edema Chronic respiratory failure with hypoxia, on home O2 therapy Closed right hip fracture Contusion of elbow Diabetes mellitus with albuminuria Diastolic heart failure Dyslipidemia Elevated serum globulin level Financial difficulties Gait abnormality History of ectopic History of seizures as a child HTN (hypertension) Hx of pleurisy Hx of thyroid cancer Hypokalemia Hypomagnesemia Hypothyroidism, postablative Injury of right leg Lower extremity edema Mild intermittent asthma Multiple drug allergies Obstructive pattern present on pulmonary function testing Pleurisy without effusion Right knee DJD Shakiness Type 2 diabetes mellitus Type 2 diabetes mellitus with peripheral neuropathy Wheelchair bound Surgical History History of D&C Hx of brain surgery 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) Hx of section Hx of thyroidectomy Family History Father Stroke Mother Dementia Diabetes Sister Macular degeneration Brother Macular degeneration Other TIA (transient ischemic attack) Denies family history of Ovarian cancer Prostate cancer Myocardial infarction Breast cancer Colorectal cancer Social History Smoking Status: Never smoker Second Hand Exposure: No; Hx Alcohol Use: No Hx Substance Use: No Preferred Language: Pakistani Communication Ability: Effective Visual Impairment: No Limitations Hearing Ability: Normal 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 NAD. Cooperative. HEENT: Atraumatic, normocephalic. Pulm: mild expiratory wheezes bilaterally without rales/rhonchi. Symmetrical chest rise. No increase work of breathing. No respiratory distress. Cardiac: RRR, -mrg. Radial pulses intact and symmetrical. Significant non- pitting LE edema (chronic lymphedema) Abdominal: soft, non-tender, non-distended, BS x 4 Skin: warm, dry, no rash Results & Data Results & Data ([facility]) Vital Signs (Past 12 Hours) Vital Signs Temp Pulse Pulse Resp BP BP Pulse Ox 09/03/22 00:00 83 18 190/85 H 95 09/02/22 23:30 92 H 18 198/92 H 96 09/02/22 23:01 96 H 16 197/94 H 93 09/02/22 22:30 97 H 27 H 204/93 H 94 09/02/22 22:25 96 H 20 207/106 H 96 09/02/22 22:27 36.5 C 98 H 20 204/93 H 96 09/02/22 22:27 80 L 09/02/22 22:27 36.5 C 95 H 20 204/93 H 95 O2 Del Method O2 Flow Rate 09/03/22 00:00 09/02/22 23:30 09/02/22 23:01 09/02/22 22:30 09/02/22 22:25 09/02/22 22:27 Room Air 09/02/22 22:27 Room Air, Nasal Cannula 0 09/02/22 22:27 Nasal Cannula 2 Supervising Physician Co-Signing Physician Notes Patient seen and examined, chart reviewed, case discussed with Dr. Mar and I agree with the assessment and plan as above. In brief, patient is a 76yo female presenting with several days of right sided pleuritic chest pain. She is tearful on exam, still with pleuritic chest discomfort, otherwise unremarkable +S1/S2, regular, no m/r/g Lungs CTA Abd soft, NT/ND Ext - warm, well perfused Labs and images reviewed Assessment/plan -Pain control, steroid x 1 -Nebs -Lidoderm patch -Initiate inhalers -Remainder as above Resident Activity Tracking Resident Involvement: Resident Care Provided Care Provided: Adult Hospital Medicine (1) HTN (hypertension) Hypertension type: essential hypertension Qualified Code(s): I10 - Essential (primary) hypertension
--- NOTE | 2022-09-03 02:01 | Billing Data ---
Date of Service September 03, 2022 Coding Level of Care Code 82584 Initial Inpt Care Lvl 3
[2022-09-03] MEDS ORDERED: GLUCOSE 10 TAB/TUBE PO PRN (04:10)
[2022-09-03] MEDS ORDERED: GLUCAGON FOR INJ 1 MG VIAL SQ PRN (04:10)
[2022-09-03] MEDS ORDERED: CARBOHYDRATES FOR HYPOGLYCEMIA PO PRN (04:10)
[2022-09-03] MEDS ORDERED: LEVALBUTEROL HCL 0.63 MG/3 ML NEB NEB PRN (04:10)
[2022-09-03] MEDS ORDERED: GLUCOSE 40% GEL 15 GM TUBE PO PRN (04:10)
[2022-09-03] MEDS ORDERED: DEXTROSE 50% 50 ML SYRINGE IV PRN (04:10)
[2022-09-03] MEDS ORDERED: MELATONIN 3 MG TAB PO PRN (04:10)
[2022-09-03] MEDS ORDERED: ACETAMINOPHEN 500 MG TAB PO PRN (04:10)
[2022-09-03 04:12] LABS: Influenza A virus by PCR Negative (Negative); Influenza B virus by PCR Negative (Negative); RSV by PCR Negative (Negative)
[2022-09-03] MEDS ORDERED: methylPREDNISolone 40 MG in SYRINGE 0 ML IV ONE (04:30)
[2022-09-03] MEDS: amLODIPine BESYLATE 5 MG TAB PO SCH ×2 (05:23→20:44)
[2022-09-03] MEDS: LEVOTHYROXINE SODIUM 137 MCG TABLET PO SCH (05:54)
[2022-09-03 06:49] LABS: BUN Creatinine Ratio 22.6 (10-20); Calcium 8.4 mg/dl (8.5-10.1); Creatinine Clr Calc Pharmacy 70.7 ml/min; Est GFR (African American) 79.4 ml/min; Est GFR (Non-African American) 68.5 ml/min; Magnesium 1.9 mg/dl (1.7-2.4); Potassium 3.4 mmol/L (3.5-5.1)
[2022-09-03] MEDS ORDERED: LEVALBUTEROL HCL 0.63 MG/3 ML NEB NEB SCH (07:00)
[2022-09-03] MEDS: BUMETANIDE 1 MG TAB PO SCH (08:29)
--- NOTE | 2022-09-03 08:29 | XRay Report ---
XR chest 1V portable CLINICAL HISTORY: Chest Pain TECHNIQUE: Single frontal radiograph of the chest was obtained. Comparison: Comparison is made to chest radiograph 07/06/2022 and CTA chest 06/12/2020 FINDINGS: No lines and tubes are seen. The cardiomediastinal silhouette is normal. Reticular interstitial opaci ties are seen. Atelectasis in the left lung base. No evidence of pleural effusion or pneumothorax. IMPRESSION: Interstitial fibrotic changes are seen. Opacity in the left lung base likely represents atelectasis w ith or without superimposed aspiration/pneumonia. ACT 112: Negative or not required by law. Electronically signed by: Austin Ritter M.D. 09/03/2022 8:26 AM
[2022-09-03] MEDS: UMECLIDINIUM/VILANTEROL 62.5/25MCG 7 PUFFS/INHALER INH SCH ×2 (08:30→10:22)
[2022-09-03] MEDS: POTASSIUM CHLORIDE PWD 20 MEQ PACK PO SCH (08:30)
[2022-09-03] MEDS: LANTUS PER UNIT CHARGE SQ SCH ×2 (08:43→20:53)
[2022-09-03] MEDS: INSULIN ASPART PER UNIT SC SCH ×4 (08:44→20:53)
[2022-09-03] MEDS: LIDOCAINE 5% 1 PATCH TD SCH (10:24)
[2022-09-03] MEDS: ENOXAPARIN INJ 40 MG/0.4 ML SYR SQ SCH (10:24)
--- NOTE | 2022-09-03 11:14 | XCELERA ---
[id number]
--- NOTE | 2022-09-03 12:15 | Electrocardiogram Report ---
Test Reason : Blood Pressure : / mmHG Vent. Rate : 089 BPM Atrial Rate : 089 BPM P-R Int : 176 ms QRS Dur : 090 ms QT Int : 378 ms P-R-T Axes : 070 069 060 degrees QTc Int : 459 ms Normal sinus rhythm Possible Old Septal infarct (cited on or before 19-OCT-2021) Abnormal ECG When compared with ECG of 06-JUL-2022 20:53, No significant change was found Confirmed by Bijan Miranda ([id number]) on 09/03/2022 12:15:34 PM Referred By: REFERRED SELF Confirmed By:Bijan Miranda
[2022-09-03] MEDS: OLMESARTAN MEDOXOMIL 40 MG TAB PO SCH (12:55)
--- NOTE | 2022-09-03 16:27 | Hospitalist Progress Note ---
Date of Service September 03, 2022 Assessment & Plan (1) Pleuritic chest pain: Plan: Several days of right-sided pleuritic chest pain and shortness of breath, with some wheezes on exam. Suspect possible exacerbation of obstructive lung disease (newly diagnosed via PFTs - see below). Suspect somatic rib dysfunction is also playing a role in the pain. Patient is euvolemic on exam and CXR/BNP unremarkable - do not suspect acute HFpEF. Chest pain does not appear anginal and EKG/Trop unremarkable - unlikely to be ACS. - hsTroponin 7.2 - will repeat now -40 mg of Solu-Medrol given in ED, no further steroids at this time -Xopenex changed to every 2 hours as needed -administer Lidocaine patch to right chest -Tylenol PRN for chest pain -s/p Bumex 1mg IV in ED - continue with home dose Bumex -currently satting well on 2L/min NC (home dose) -Patient is fearful to go home today and would like to stay till morning as concern for pleuritic chest pain. (2) Obstructive pattern present on pulmonary function testing: Plan: PFTs done on 07/31 for chronic respiratory failure even when euvolemic: results showing FEV1 37%, minimal post-bronchodilator change, and severely reduced DLCO - compatible with COPD (would be GOLD-3). Patient is a never smoker. - ordered alpha-1 anti-trypsin, pending - SoluMedrol as stated above - PRN Xopenex as stated above - started Anoro Ellipta - f/u with PCP for further management; recommend outpatient Pulmonology consult as well - defer to PCP (3) (HFpEF) heart failure with preserved ejection fraction: Plan: Chronic. EF 55-60% per last TTE in 02/2022. Currently euvolemic, with BNP WNL and CXR without evidence for pulmonary vascular congestion. - TTE ordered - pending - continue with home dose Bumex as stated above - strict I/Os, daily weights, salt-restricted diet (4) HTN (hypertension): Plan: Chronic. Hypertensive to 190s/90s in the ED which appears largely related to pain. - Tylenol PRN and Lidocaine patch for right chest pain, as stated above - continue Olmesartan and amlodipine (5) Lymphedema: Plan: Chronic, without exacerbation, compression stockings applied (6) Type 2 diabetes mellitus with peripheral neuropathy: Plan: Chronic. A1c 9.3 in 06/2022. - SSI and basal dosing while hospitalized (7) Asthma: Plan: Chronic. With comorbid obstructive disease suspicious for COPD. - Xopenex as stated above (8) Hypothyroidism, postablative: Plan: -Chronic. Continue home Synthroid. -TSH ordered today (9) Ambulatory dysfunction: Plan: Chronic. Restricted to wheel chair only. - fall precautions Plan FEN/GI: heart-healthy/DM2 diet DVT Prophylaxis: Lovenox SQ Code Status: full code Disposition: med/surg Admission and Anticipated Discharge Date Admission Date: September 03, 2022 Supervising Physician Co-Signing Physician Notes Resident Physician Supervision Note: I independently interviewed and examined the patient and verified the dickerson histor y and physical, reviewed labs and image studies and agree with resident findings and care plan. Subjective Patient seen at bedside this morning. No acute vents reported overnight. Patient reports that her pain is overall improved at least in the morning. Later in the day when I checked on her a second time she reports that he had returned after getting up and taking a shower. She is frightful to go home as she lives alone in a large house if were to get worse again she fears that she would have no one to get a hold of someone to help her. Is having some "shortness of breath" because of the pain. Otherwise had the complaint of worsening swelling in her feet. No other complaints today. Review of Systems Review of Systems: All systems reviewed & are unremarkable except as noted in HPI & below Physical Exam Constitutional: WD/WN, vitals as above Eyes: + anicteric sclerae Neck: normal visual inspection Respiratory: normal respiratory effort, lungs clear to auscultation Cardiovascular: Rate/Rhythm: regular rate and regular rhythm Palpation: normal PMI Vessels: no JVD Extremities: + edema Gastrointestinal (Abdomen): normal bowel sounds, soft, nontender, no hepatosplenomegaly Musculoskeletal: Head/Neck/Chest: normocephalic and head atraumatic Skin: no rashes Neurologic: moves all extremities Psychiatric: Orientation: alert, oriented x 3 and cooperative Affect: + anxious affect Results & Data Results & Data ([facility]) Vital Signs (Past 12 Hours) Vital Signs Temp Pulse Resp BP Pulse Ox O2 Del Method O2 Flow Rate 09/03/22 14:51 36.6 C 86 16 165/70 H 96 Nasal Cannula 2 09/03/22 13:57 85 18 98 Nasal Cannula 2 09/03/22 10:25 Room Air 09/03/22 07:20 81 18 90 Nasal Cannula 2 09/03/22 08:08 37.1 C 85 16 185/79 H 93 Nasal Cannula 2 09/03/22 05:08 37.0 C 83 16 165/76 H 93 Nasal Cannula 2 (1) HTN (hypertension) Hypertension type: essential hypertension Qualified Code(s): I10 - Essential (primary) hypertension
[2022-09-03 16:29] LABS: Thyroid Stimulating Hormone 15.699 uIu/ml (0.300-4.500)
[2022-09-03 17:11] LABS: T4 Free Thyroxine 0.9 ng/dl (0.61-1.60)
[2022-09-04] MEDS: LEVOTHYROXINE SODIUM 137 MCG TABLET PO SCH (05:45)
[2022-09-04 07:41] VITALS: PULSE 73; TEMP 98.1; O2SAT 95
[2022-09-04] MEDS: BUMETANIDE 1 MG TAB PO SCH (08:31)
[2022-09-04] MEDS: POTASSIUM CHLORIDE PWD 20 MEQ PACK PO SCH (08:32)
[2022-09-04] MEDS: UMECLIDINIUM/VILANTEROL 62.5/25MCG 7 PUFFS/INHALER INH SCH (08:32)
[2022-09-04] MEDS: ENOXAPARIN INJ 40 MG/0.4 ML SYR SQ SCH (08:33)
[2022-09-04] MEDS: LIDOCAINE 5% 1 PATCH TD SCH (08:33)
[2022-09-04] MEDS: INSULIN ASPART PER UNIT SC SCH ×2 (09:12→12:49)
[2022-09-04] MEDS: LANTUS PER UNIT CHARGE SQ SCH (09:13)
[2022-09-04] MEDS: OLMESARTAN MEDOXOMIL 40 MG TAB PO SCH (11:38)
[2022-09-04 13:40] VITALS: BP 178/81
--- NOTE | 2022-09-04 14:47 | Discharge Summary ---
Date of Service September 04, 2022 Admission HPI Per Admitting Provider Carli Logan is a 76yo female with PMHx significant for HFpEF (EF 55-60% in 02/2022), asthma, chronic hypoxic respiratory failure (2L on exertion), T2DM (A1c 9.3 on 07/14/2022), HTN, lymphedema, hypothyroidism, and ambulatory dysfunction. Patient presented to [facility] on 09/03 for right-sided inspiratory pleuritic chest pain with associated shortness of breath and fatigue x3 days. Patient reports orthopnea as well although says this may be more chronic. Denies increase in chronic LE edema. Denies recent fever/chills, cough, respiratory illness. Of note the patient recently underwent PFT testing, due to chronic respiratory failure even when euvolemic, on 07/31: results showing FEV1 37%, minimal post- bronchodilator change, and severely reduced DLCO - compatible with COPD (would be GOLD-3). Patient has not yet spoken to her PCP about these results. She does use Albuterol only occasionally and reports a chronic history of asthma, but says she is a never smoker. Denies alcohol use or drug use. Taking medications as prescribed without recent changes. Lives alone in a multi-level home and has stair glide between floors and ramp to enter. Mostly stays on 1st floor. Wheel-chair dependent, but profic ient in ADLs and most iADLs. In the ED patient was hypertensive to 207/106. Afebrile and satting well on 2L/min NC. hsTroponin negative x1. EKG NSR without ST/T wave abnormalities. BNP 53. CBC/CMP WNL and COVID-19 negative. CXR without evidence for pulmonary vascular congestion or consolidations/opacities. Patient was given Tylenol 1g IV x1, Bumex 1mg IV x1, and Nitropaste 0.5 inch. Principal Diagnosis Pleuritic chest pain Discharge Exam Constitutional WD/WN, vitals as above Eyes + anicteric sclerae Neck normal visual inspection Respiratory normal respiratory effort, lungs clear to auscultation Cardiovascular Rate/Rhythm: regular rate and regular rhythm Palpation: normal PMI Vessels: no JVD Extremities: + edema Gastrointestinal (Abdomen) normal bowel sounds, soft, nontender, no hepatosplenomegaly Musculoskeletal Head/Neck/Chest: normocephalic and head atraumatic Skin no rashes Neurologic moves all extremities Psychiatric Orientation: alert, oriented x 3 and cooperative Affect: + anxious affect Discharge Data Allergies Allergy/AdvReac Type Severity Reaction Status Date / Time aspirin Allergy Severe HIVES; Verified 09/02/22 23:17 DIFFICULTY BREATHING colchicine Allergy Severe Difficulty Verified 09/02/22 23:17 Breathing Benzodiazepines Allergy Mild Unknown Verified 09/02/22 23:17 doxycycline Allergy Mild Unknown Verified 09/02/22 23:17 aspartame Allergy Unknown Unknown Verified 09/02/22 23:17 diltiazem Allergy Unknown UNKNOWN Verified 09/02/22 23:17 REACTION melon Allergy Unknown Unknown Verified 09/02/22 23:17 nifedipine Allergy Unknown UNKNOWN Verified 09/02/22 23:17 REACTION simvastatin Allergy Unknown UNKNOWN Verified 09/02/22 23:17 REACTION PER PT vancomycin Allergy Unknown UNKNOWN Verified 09/02/22 23:17 REACTION Iodinated Contrast Media AdvReac Intermediate Rash Verified 09/02/22 23:17 Consultations 09/03/22 00:45 ED Decision to Admit Stat Hospital Course (1) Pleuritic chest pain: Several days of right-sided pleuritic chest pain and shortness of breath, with some wheezes on exam. Suspect possible exacerbation of obstructive lung disease (newly diagnosed via PFTs - see below). Suspect somatic rib dysfunction is also playing a role in the pain. Patient is euvolemic on exam and CXR/BNP u nremarkable - do not suspect acute HFpEF. Chest pain does not appear anginal and EKG/Trop unremarkable - unlikely to be ACS. - hsTroponin negative -40 mg of Solu-Medrol given in ED, no further steroids at this time -administer Lidocaine patch to right chest -Tylenol PRN for chest pain -s/p Bumex 1mg IV in ED - has h/o difficulty with compliance with diuretics in past due to urination difficulty from ambulatory dysfunction. -continue with home dose Bumex -currently satting well on 2L/min NC (home dose) -Pain had improved and patient felt safe with being discharged home today (2) (HFpEF) heart failure with preserved ejection fraction: Chronic. EF 55-60% per last TTE in 02/2022. Currently euvolemic, with BNP WNL and CXR without evidence for pulmonary vascular congestion. - TTE ordered -no change from previous studies. Ejection fraction 55 to 60% - continue with home dose Bumex as stated above (3) HTN (hypertension): Chronic. Elevated reading while hospitalized - largely related to pain. - continue Olmesartan and amlodipine. Outpatient monitoring and pain control. (4) Type 2 diabetes mellitus with peripheral neuropathy: Chronic. A1c 9.3 in 06/2022. - SSI and basal dosing while hospitalized and blood sugars controlled. - restarted home regimen at discharge -Discuss further at primary care provider visit (5) Hypothyroidism, postablative: -Chronic. Continue home Synthroid. -TSH elevated. -outpatient recheck and adjustment of levothyroxine dose. (6) Obstructive pattern present on pulmonary function testing: PFTs done on 07/31 for chronic respiratory failure even when euvolemic: results showing FEV1 37%, minimal post-bronchodilator change, and severely reduced DLCO - compatible with COPD (would be GOLD-3). Patient is a never smoker. - ordered alpha-1 anti-trypsin, pending - started Anoro Ellipta however patient preferred an inhaler, sent Symbicort to pharmacy with spacer - f/u with PCP for further management; recommend outpatient Pulmonology consult as well - defer to PCP (7) Asthma: Chronic. With comorbid obstructive disease suspicious for COPD. - Xopenex as stated above (8) Lymphedema: Chronic, without exacerbation, compression stockings applied (9) Ambulatory dysfunction: Chronic. Restricted to wheel chair only. - fall precautions Plan FEN/GI: heart-healthy/DM2 diet Code Status: full code Disposition: Discharge home with self-care Total Time Total Time Spent Total Time Spent (In Minutes): 30 Discharge Plan Discharge Items Patient Disposition: Home - Self-Care Reason For Visit: PLEURITIC CHEST PAIN Discharge Diagnosis: Pleuritic/myofascial chest pain Activity: Per Instructions section Non-emergency contact: Primary Care Provider Call non-emergency contact if: you have any medication questions, your symptoms worsen and your pain is not controlled Follow-up/Referrals: Phong Sheth DO [Resident] - 09/08/22 11:45 am Diet: Regular Addtl Attending Provider Instructions: Pain you were seen in the hospital for evaluation of right-sided chest pain. While you are here you were evaluated by emergency department who did imaging or an testing that were not able to find any lung or heart pathologies as the cause of your chest pain. You are admitted to the hospital to help you with your pain and shortness of breath for which we gave you steroids and breathing treatments. This did seem to improve your symptoms. As to the etiology of your pain we feel that it is likely due to either a muscle injury from working outside or pleuritic chest pain from a viral source. For your pain control we recommend utilization of Tylenol and ibuprofen as this pain should subside given enough time. Heat would also be acceptable source of pain control. Otherwise you had some concerns about your thyroid so we performed a TSH which was elevated but the active enzyme, T4, was normal indicating you do not need any adjustment in your thyroid medication currently. Lastly, you had some questions regarding pulmonary function testing you had done previously that was indicative of COPD. After reviewing the results of this test, it does show that you have COPD as a diagnosis as your breathing did not improve after being given a bronchodilator (albuterol). For this reason we are recommending you utilize a daily inhaler that we are going to send to your pharmacy. This inhaler is called Symbicort. Because you have never smoked, we are doing some testing to evaluate other causes to your COPD. This will be discussed further at your primary care provider follow-up appointment. It has been a pleasure to be a part of your care and we wish you the best in both your health and your recovery. We will get you set up at the [facility] clinic for follow-up within 1 week of your discharge. Pending Studies at Discharge: Yes Studies:: Alpha 1 antitrypsin Stand-Alone Forms: My [facility], Smoking Cessation Medications and DC Order Prescriptions: New budesonide-formoterol [Symbicort] 80-4.5 mcg/actuation HFA aerosol inhaler 1 inh inhalation BID Qty: 10.2 2RF (DME) Spacer for Inhaler Misc See Rx Instructions .Route Qty: 1 0RF Rx Instructions: As directed Continued (DME) OneTouch Verio test strips Strip See Rx Instructions .ROUTE .MEDSUPPLY Qty: 100 3RF Rx Instructions: for once a day testing albuterol sulfate 90 mcg/actuation HFA aerosol inhaler 2 puff INHALATION Q6H PRN (Reason: Shortness Of Breath Or Wheezing) Qty: 18 1RF albuterol sulfate 0.63 mg/3 mL solution for nebulization 0.63 mg inhalation QID PRN (Reason: shortness of breath or wheezing) Qty: 90 3RF metformin 500 mg tablet 500 mg PO BID Qty: 180 3RF bumetanide 1 mg tablet 1 mg PO DAILY Qty: 30 0RF (DME) lancets [OneTouch Delica Lancets] 33 gauge misc See Rx Instructions .ROUTE .MEDSUPPLY Qty: 100 Rx Instructions: As directed (DME) pen needle, diabetic [BD Ultra-Fine Micro Pen Needle] 32 gauge x 1/4" needle See Rx Instructions .ROUTE .MEDSUPPLY Qty: 50 Rx Instructions: As directed (DME) Bed Side Commode Misc See Rx Instructions .Route Qty: 1 0RF Rx Instructions: As directed potassium chloride 20 mEq packet 20 meq PO DAILY Qty: 30 2RF doxycycline hyclate 50 mg tablet See Rx Instructions PO .COMPLEX Qty: 3 0RF Rx Instructions: Do not take, bring to the allergy clinic for testing Levemir U-100 Insulin 100 unit/mL Solution 30 unit SUBCUT QAM 30 Days Qty: 9 0RF amlodipine 5 mg tablet 5 mg PO HS olmesartan 40 mg tablet 40 mg PO QDL levothyroxine 137 mcg tablet 137 mcg PO DAILYBB (DME) blood-glucose meter [OneTouch Verio Meter] [facility] [place] See Rx Instructions .Route Qty: 1 0RF Rx Instructions: As directed Discharge Orders: Discharge Order (Routine); Ordered 09/04/22 Ordered By: Phong Tapia/Other Patient Handouts: Pleurisy, ED Lymphedema Admission Data Admit Date/Time: 09/03/22 01:29 Attending Provider: Gabby Pennington Admit Provider: River Mar Primary Care Provider: Irish Ramos Other Providers: Anay So Other Interventions: Discharge Summary Assessment (RN) Last Done: 09/04/22 13:38 Supervising Physician Co-Signing Physician Notes Resident Physician Supervision Note: I independently interviewed and examined the patient and verified the dickerson history and physical, reviewed labs and image studies and agree with resident findings and care plan.
== END 2022-09-04 14:23 | disposition home health service (06) | DRG 191 ==
LOC: ED 22:18 → 3N 09-03 01:29 → SUATTDRO 09-03 01:29 → 3N 09-03 04:10

== ENCOUNTER 2022-11-26 11:25 | Inpatient (IN) ==
--- NOTE | 2022-11-26 11:50 | XRay Report ---
XR chest 1V portable HISTORY: 76 years-old Female Chest pain, nonspecific acute chest pain COMPARISON: 09/17/2022 TECHNIQUE: AP view of the chest FINDINGS: Cardiac silhouette is enlarged. No pneumothorax. Small moderate left and small right pleural effusion s. Pulmonary vascular congestion. Mild left basilar consolidation. Degenerative changes of the should ers and spine. IMPRESSION: 1. Cardiomegaly with pulmonary vascular congestion. 2. Left greater than right pleural effusions with mild left basilar consolidation. ACT 112: Negative or not required by law. The above report was generated using voice recognition software. It may contain grammatical, syntax o r spelling errors. Electronically signed by: Dashawn Ramírez M.D. 11/26/2022 11:49 AM
[2022-11-26] MEDS ORDERED: dexAMETHasone**PF** 10 MG/ML VIAL IV ONE (11:56)
[2022-11-26] MEDS ORDERED: diphenhydrAMINE 50 MG/ML VIAL IV STA (11:56)
--- NOTE | 2022-11-26 12:06 | Emergency Department Note ---
Impression & Plan Acute and chronic respiratory failure with hypoxia, CHF exacerbation, Pleural effusion, Lymphedema ED Provider Note NAME: LACI SOLITARIO AGE: 76 SEX: F ARRIVES VIA: Ambulance INFORMANT: Patient ED PROVIDER(S): Darshan Yoder MD CHIEF COMPLAINT: Chest pain PLAN: Disposition: Admit MEDICAL DECISION MAKING: The patient is a pleasant 76-year-old woman with a past medical history of epilepsy, nonambulatory for many years with history of nonoperative hip fra cture, chronic respiratory failure on home oxygen who presents to the emergency department from her home for evaluation of left-sided chest pain that is worse with inspiration. Patient's not on any anticoagulation. She denies any fevers, chills, cough, congestion. She reports she is on 2 L nasal cannula at home at baseline for history of asthma. The patient denies any burning with urination or blood in her urine. On arrival the patient is no acute distress, afebrile stable vital signs. She has chronic 3+ bilateral lower extremity lymphedema without discoloration. She has diminished breath sounds bilateral lower lung brooke. EKG without overt acute ischemia. Chest x-ray demonstrates bilateral pleural effusions left greater than right further characterized on CT of the chest. WBC and platelets within normal limits. H/H similar to prior range of values. Chemistry without metabolic acidosis. Bicarbonate is 36 similar to prior range values in the setting of chronic respiratory failure on home oxygen. High- sensitivity troponin 9.2, within normal limits. BNP 86, within normal limits. Lipase not elevated. UA with 2+ bacteria albeit with epithelial cells present. CTA of the chest was performed and was negative for PE. Evidence of congestive failure is present with left greater than right bilateral pleural effusions with note made of loculated fluid in the left major fissure. Note is also made of left basilar consolidation which is suspicious for pneumonia. Additional note is made of patchy bilateral groundglass opacities. No acute intra-abdominal process is seen. Blood cultures were ordered and antibiotic treatment initiated with ceftriaxone for possible PNA. Patient was additionally given IV Bumex for component of hypervolemia. She does agree with plan for admission for further management. Case was discussed with ASIA Chappell PAC with Dr. Chacko, [facility] hospitalist, who will evaluate the patient for admission. Triage Nursing notes reviewed and agree them. Prior/outside medical records reviewed Vital Signs: reviewed Differential diagnosis: Cardiac ischemia, aortic dissection, pulmonary embolism, pneumothorax, pneumonia, pericarditis, myocarditis, esophageal rupture, GERD, cholecystitis, pancreatitis, musculoskeletal, as well as other pathologies. ER treatment provided: See below. Diagnostics interpreted by me: ECG: Normal sinus rhythm, 95 bpm, no ectopy, no overt ST elevation or depre ssion, QTc 454, cures 92 Cardiac Monitoring: An order for continuous cardiac monitoring was placed and demonstrated Normal sinus rhythm, 95 bpm, no ectopy. Laboratory studies: See below Imaging studies: See below Consultation(s): ASIA Chappell PAC with Dr. Chacko [facility] [place] [facility] hospitalist HPI: The patient is a pleasant 76-year-old woman with a past medical history of epilepsy, nonambulatory for many years with history of nonoperative hip fracture, chronic respiratory failure on home oxygen who presents to the emergency department from her home for evaluation of left-sided chest pain that is worse with inspiration. Patient's not on any anticoagulation. She denies any fevers, chills, cough, congestion. She reports she is on 2 L nasal cannula at home at baseline for history of asthma. The patient denies any burning with urination or blood in her urine. ROS: See above HPI for pertinent positives & negatives. A total of 10 systems reviewed and were otherwise negative. VITALS:See Below PHYSICAL EXAMINATION: GENERAL: Awake, alert, fatigued-appearing, in no distress HENT: Normocephalic, atraumatic. Oropharynx unremarkable. EYES: Normal conjunctiva. Sclera non-icteric. NECK: Supple. No nuchal rigidity. FROM. No JVD. RESPIRATORY: Diminished breath sounds bilateral lower lung brooke. Mildly dyspneic without significant increased work of breathing. CARDIAC: Regular rate, normal rhythm. Extremities warm and well perfused. Pulses equal. ABDOMEN: Soft, non-distended. Mild left flank/LUQ tenderness to palpation. No rebound or guarding. No masses. RECTAL: Deferred. MUSCULOSKELETAL: Chest examination reveals mild left lower lateral ttp. The back is symmetrical on inspection without obvious abnormality. There is no CVA tenderness to palpation. No joint edema. LOWER EXTREMITIES: Calves are equal size bilaterally and non-tender. 3+ BLE lymphedema. No discoloration. NEURO: Normal sensorium. No sensory or motor deficits noted. SKIN: No rash or jaundice noted. Darshan Yoder MD Past Med/Surg History Medical History (Updated 11/26/22 @ 20:30 by Darshan Yoder MD) Acute diastolic (congestive) heart failure Ambulatory dysfunction Asthma Cardiac arrest Chest pain Chronic edema Chronic respiratory failure with hypoxia, on home O2 therapy Closed right hip fracture Contusion of elbow Diabetes mellitus with albuminuria Diastolic heart failure Dyslipidemia Elevated serum globulin level Financial difficulties Gait abnormality History of ectopic History of seizures as a child HTN (hypertension) Hx of pleurisy Hx of thyroid cancer Hypokalemia Hypomagnesemia Hypothyroidism, postablative Injury of right leg Lower extremity edema Mild intermittent asthma Multiple drug allergies Obstructive pattern present on pulmonary function testing Pleurisy without effusion Pleuritic chest pain Right knee DJD Shakiness Type 2 diabetes mellitus Type 2 diabetes mellitus with peripheral neuropathy Wheelchair bound Surgical History History of D&C Hx of brain surgery 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) Hx of section Hx of thyroidectomy Family History Father Stroke Mother Dementia Diabetes Sister Macular degeneration Brother Macular degeneration Other TIA (transient ischemic attack) Denies family history of Ovarian cancer Prostate cancer Myocardial infarction Breast cancer Colorectal cancer Social History Smoking Status: Never smoker Second Hand Exposure: No; Hx Alcohol Use: No Hx Substance Use: No Preferred Language: Syriac Communication Ability: Effective Visual Impairment: No Limitations Hearing Ability: Normal 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 Required: No Beliefs That Will Affect Care: None marital status: / Current Living Situation: Alone current occupational status: retired 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 Feels Safe at Home: Yes Childhood Exposure to Second-Hand Smoke: No Dental Care, Regularly: Yes Physical Activity Frequency: Does not Exercise Seatbelt Use: always Sunscreen Use: No Assistive Devices: Scooter/Electric Scooter, Stair Lift and Wheelchair Allergies Allergies Allergy/AdvReac Type Severity Reaction Status Date / Time aspirin Allergy Severe HIVES; Verified 11/12/22 09:17 DIFFICULTY BREATHING colchicine Allergy Severe Difficulty Verified 11/12/22 09:17 Breathing Benzodiazepines Allergy Mild Unknown Verified 11/12/22 09:17 doxycycline Allergy Mild Unknown Verified 11/12/22 09:17 aspartame Allergy Unknown Unknown Verified 11/12/22 09:17 diltiazem Allergy Unknown UNKNOWN Verified 11/12/22 09:17 REACTION melon Allergy Unknown Unknown Verified 11/12/22 09:17 nifedipine Allergy Unknown UNKNOWN Verified 11/12/22 09:17 REACTION simvastatin Allergy Unknown UNKNOWN Verified 11/12/22 09:17 REACTION PER PT vancomycin Allergy Unknown UNKNOWN Verified 11/12/22 09:17 REACTION Iodinated Contrast Media AdvReac Intermediate Rash Verified 11/12/22 09:17 Home Meds Home Medications Medication Instructions Recorded Confirmed lancets 33 gauge (AutomsoftTouch Delica #100 ea 01/03/21 11/26/22 Lancets) pen needle, diabetic 32 gauge x #50 ea 01/03/21 11/26/2210/21" (BD Ultra-Fine Micro Pen Needle) amlodipine 5 mg tablet 5 mg PO HS 02/17/22 11/26/22 olmesartan 40 mg tablet 40 mg PO QDL 02/17/22 11/26/22 levothyroxine 137 mcg tablet 137 mcg PO DAILYBB 07/07/22 11/26/22 Previous Rx's Medication Instructions Recorded blood sugar diagnostic (OneTouch #100 ea 12/05/20 Verio test strips) Bed Side Commode #1 ea 08/28/21 albuterol sulfate 90 mcg/actuation 2 puff inhalation Q6H PRN 06/30/22 aerosol inhaler Shortness Of Breath Or Wheezing #18 grams blood-glucose meter (OneTouch #1 ea 07/09/22 Verio Meter) potassium chloride 20 mEq oral 20 meq PO DAILY #30 ea 07/14/22 packet albuterol sulfate 0.63 mg/3 mL 0.63 mg (3 mL) inhalation QID PRN 07/20/22 solution for nebulization shortness of breath or wheezing #90 mL bumetanide 1 mg tablet 1 mg PO DAILY #30 tabs 08/21/22 metformin 500 mg tablet 500 mg PO BID #180 tabs 08/21/22 doxycycline hyclate 50 mg tablet See Rx Instructions PO .COMPLEX #3 08/28/22 tabs Spacer for Inhaler #1 ea 09/04/22 budesonide-formoterol HFA 80 1 inh inhalation BID #10.2 grams 09/04/22 mcg-4.5 mcg/actuation aerosol inhaler (Symbicort) insulin detemir U-100 100 unit/mL 30 unit (0.3 mL) subcut DAILY #15 10/11/22 (3 mL) subcutaneous pen (Levemir mL FlexTouch U-100 Insulin) bromfenac 0.09 % eye drops 1 drp ophthalmic (eye) DAILY 16 10/30/22 days #1.7 mL inhaler,assist devices,access #1 ea 11/05/22 Results & Data (ED) Vital Signs Vital Signs - 24 hr 11/26/22 11:41 11/26/22 11:39 11/26/22 17:22 Temperature 36.7 C Temperature Source Oral Pulse Rate 98 H Pulse Rate [Right Finger] 89 Pulse Rate from SpO2 Sensor Respiratory Rate 18 16 Respiratory Effort / Characteristics Respiratory Depth Blood Pressure 217/110 H Blood Pressure [Right Arm] 169/91 H Blood Pressure Mean 145 Blood Pressure Mean [Right Arm] 117 Pulse Oximetry 95 81 L 95 Oxygen Delivery Method Nasal Cannula Room Air Nasal Cannula Oxygen Flow Rate 2 2 Sepsis Recent Fever Within 48 Hours No Sepsis New/Unexplained Change in Mental Status N/A Sepsis Action Taken by Nursing No Action Required Oxygen Flow Rate - Titration 2 Pulse Oximetry Post Tiitration 95 11/26/22 18:37 11/26/22 18:38 11/26/22 11:42 Temperature Temperature Source Pulse Rate 91 H 94 H Pulse Rate [Right Finger] 92 H Pulse Rate from SpO2 Sensor 95 H Respiratory Rate 18 18 22 Respiratory Effort / Characteristics Spontaneous Respiratory Depth Normal Blood Pressure Blood Pressure [Right Arm] 187/97 H Blood Pressure Mean Blood Pressure Mean [Right Arm] 127 Pulse Oximetry 97 97 97 Oxygen Delivery Method Nasal Cannula Room Air Oxygen Flow Rate 2 Sepsis Recent Fever Within 48 Hours Sepsis New/Unexplained Change in Mental Status Sepsis Action Taken by Nursing Oxygen Flow Rate - Titration Pulse Oximetry Post Tiitration 11/26/22 12:00 11/26/22 12:30 11/26/22 13:00 Temperature Temperature Source Pulse Rate 98 H 93 H Pulse Rate [Right Finger] Pulse Rate from SpO2 Sensor 98 H 93 H Respiratory Rate 20 20 19 Respiratory Effort / Characteristics Respiratory Depth Blood Pressure Blood Pressure [Right Arm] Blood Pressure Mean Blood Pressure Mean [Right Arm] Pulse Oximetry 97 97 Oxygen Delivery Method Oxygen Flow Rate Sepsis Recent Fever Within 48 Hours Sepsis New/Unexplained Change in Mental Status Sepsis Action Taken by Nursing Oxygen Flow Rate - Titration Pulse Oximetry Post Tiitration 11/26/22 13:12 11/26/22 13:12 11/26/22 13:30 Temperature Temperature Source Pulse Rate 94 H Pulse Rate [Right Finger] Pulse Rate from SpO2 Sensor 91 H Respiratory Rate 22 Respiratory Effort / Characteristics Respiratory Depth Blood Pressure 209/103 H 213/104 H Blood Pressure [Right Arm] Blood Pressure Mean 138 140 Blood Pressure Mean [Right Arm] Pulse Oximetry 97 Oxygen Delivery Method Oxygen Flow Rate Sepsis Recent Fever Within 48 Hours Sepsis New/Unexplained Change in Mental Status Sepsis Action Taken by Nursing Oxygen Flow Rate - Titration Pulse Oximetry Post Tiitration 11/26/22 13:30 11/26/22 14:06 11/26/22 15:37 Temperature Temperature Source Pulse Rate 85 Pulse Rate [Right Finger] Pulse Rate from SpO2 Sensor 85 94 H Respiratory Rate 12 Respiratory Effort / Characteristics Respiratory Depth Blood Pressure 147/92 H Blood Pressure [Right Arm] Blood Pressure Mean 110 Blood Pressure Mean [Right Arm] Pulse Oximetry 98 97 Oxygen Delivery Method Oxygen Flow Rate Sepsis Recent Fever Within 48 Hours Sepsis New/Unexplained Change in Mental Status Sepsis Action Taken by Nursing Oxygen Flow Rate - Titration Pulse Oximetry Post Tiitration 11/26/22 15:37 11/26/22 16:00 11/26/22 16:00 Temperature Temperature Source Pulse Rate Pulse Rate [Right Finger] Pulse Rate from SpO2 Sensor 88 79 Respiratory Rate Respiratory Effort / Characteristics Respiratory Depth Blood Pressure 155/73 H Blood Pressure [Right Arm] Blood Pressure Mean 100 Blood Pressure Mean [Right Arm] Pulse Oximetry 94 94 Oxygen Delivery Method Oxygen Flow Rate Sepsis Recent Fever Within 48 Hours Sepsis New/Unexplained Change in Mental Status Sepsis Action Taken by Nursing Oxygen Flow Rate - Titration Pulse Oximetry Post Tiitration 11/26/22 16:30 11/26/22 16:30 11/26/22 17:00 Temperature Temperature Source Pulse Rate Pulse Rate [Right Finger] Pulse Rate from SpO2 Sensor 79 Respiratory Rate Respiratory Effort / Characteristics Respiratory Depth Blood Pressure 156/67 H 169/91 H Blood Pressure [Right Arm] Blood Pressure Mean 96 117 Blood Pressure Mean [Right Arm] Pulse Oximetry 95 Oxygen Delivery Method Oxygen Flow Rate Sepsis Recent Fever Within 48 Hours Sepsis New/Unexplained Change in Mental Status Sepsis Action Taken by Nursing Oxygen Flow Rate - Titration Pulse Oximetry Post Tiitration 11/26/22 17:00 11/26/22 17:30 11/26/22 18:00 Temperature Temperature Source Pulse Rate Pulse Rate [Right Finger] Pulse Rate from SpO2 Sensor 89 92 H 92 H Respiratory Rate Respiratory Effort / Characteristics Respiratory Depth Blood Pressure Blood Pressure [Right Arm] Blood Pressure Mean Blood Pressure Mean [Right Arm] Pulse Oximetry 97 94 98 Oxygen Delivery Method Oxygen Flow Rate Sepsis Recent Fever Within 48 Hours Sepsis New/Unexplained Change in Mental Status Sepsis Action Taken by Nursing Oxygen Flow Rate - Titration Pulse Oximetry Post Tiitration 11/26/22 18:01 11/26/22 18:01 11/26/22 18:30 Temperature Temperature Source Pulse Rate Pulse Rate [Right Finger] Pulse Rate from SpO2 Sensor 95 H Respiratory Rate Respiratory Effort / Characteristics Respiratory Depth Blood Pressure 172/107 H 187/97 H Blood Pressure [Right Arm] Blood Pressure Mean 128 127 Blood Pressure Mean [Right Arm] Pulse Oximetry 96 Oxygen Delivery Method Oxygen Flow Rate Sepsis Recent Fever Within 48 Hours Sepsis New/Unexplained Change in Mental Status Sepsis Action Taken by Nursing Oxygen Flow Rate - Titration Pulse Oximetry Post Tiitration 11/26/22 18:30 11/26/22 19:00 11/26/22 19:00 Temperature Temperature Source Pulse Rate Pulse Rate [Right Finger] Pulse Rate from SpO2 Sensor 93 H 85 Respiratory Rate Respiratory Effort / Characteristics Respiratory Depth Blood Pressure 183/88 H Blood Pressure [Right Arm] Blood Pressure Mean 119 Blood Pressure Mean [Right Arm] Pulse Oximetry 98 98 Oxygen Delivery Method Oxygen Flow Rate Sepsis Recent Fever Within 48 Hours Sepsis New/Unexplained Change in Mental Status Sepsis Action Taken by Nursing Oxygen Flow Rate - Titration Pulse Oximetry Post Tiitration 11/26/22 19:30 11/26/22 19:30 Temperature Temperature Source Pulse Rate Pulse Rate [Right Finger] Pulse Rate from SpO2 Sensor 80 Respiratory Rate Respiratory Effort / Characteristics Respiratory Depth Blood Pressure 175/85 H Blood Pressure [Right Arm] Blood Pressure Mean 115 Blood Pressure Mean [Right Arm] Pulse Oximetry 100 Oxygen Delivery Method Oxygen Flow Rate Sepsis Recent Fever Within 48 Hours Sepsis New/Unexplained Change in Mental Status Sepsis Action Taken by Nursing Oxygen Flow Rate - Titration Pulse Oximetry Post Tiitration Laboratory Data 11/26/22 12:15 11/26/22 12:15 Lab Results 11/26/22 11/26/22 11/26/22 Range/Units 12:15 12:15 12:15 WBC 7.99 (4.8-10.8) K/ul RBC 4.27 (4.20-5.40) M/uL Hgb 11.5 L (12.0-16.0) g/dl Hct 36.4 L (37.0-47.0) % MCV 85.2 (80.0-100.0) fL MCH 26.9 (25.0-34.0) pg MCHC 31.6 L (32.0-36.0) g/dL RDW Std Deviation 44.1 (36.4-46.3) fL RDW Coeff of Smith 14.3 (11.5-14.5) % Plt Count 261 (130-400) K/uL MPV 10.4 (9.4-12.4) fL Immature Gran % (Auto) 0.5 % Neut % (Auto) 79.1 % Lymph % (Auto) 12.6 % Angelina % (Auto) 5.8 % Eos % (Auto) 1.5 % Baso % (Auto) 0.5 % Neut # (Auto) 6.32 (1.40-6.50) K/uL Lymph # (Auto) 1.01 L (1.2-3.4) K/uL Angelina # (Auto) 0.46 (0.11-0.59) K/uL Eos # (Auto) 0.12 (0-0.50) K/uL Baso # (Auto) 0.04 (0-0.2) K/uL Immature Gran # (Auto) 0.04 (0.01-0.20) K/uL ESR (0-30) mm/hr Sodium 140 (136-145) mmol/L Potassium 3.5 (3.5-5.1) mmol/L Chloride 99 (98-107) mmol/L Carbon Dioxide 36 H (21-32) mmol/L Anion Gap 5 (3-11) BUN 17 (6-23) mg/dl Creatinine 0.81 (0.6-1.2) mg/dl Est Cr Clr Drug Dosing 70.9 ml/min Est GFR ( Amer) 82.9 ml/min Est GFR (Non-Af Amer) 71.5 ml/min BUN/Creatinine Ratio 21.0 H (10-20) Glucose 138 H (70-99(Fasting)) mg/dl Lactate (0.4-2.0) mmol/L Calcium 8.8 (8.5-10.1) mg/dl Phosphorus 3.7 (2.5-4.9) mg/dl Magnesium 1.9 (1.7-2.4) mg/dl Total Bilirubin 0.7 (0.2-1.0) mg/dl AST 13 (13-39) U/L ALT 7 (7-52) U/L Alkaline Phosphatase 66 (34-104) U/L Troponin I High Sens 9.2 (0-14) pg/ml C-Reactive Protein (0-0.5) mg/dl B-Natriuretic Peptide 86 (0-100) pg/ml Total Protein 7.9 (6.0-8.3) gm/dl Albumin 3.7 (3.4-5.0) gm/dl Globulin 4.2 H (2.5-4.0) gm/dl Albumin/Globulin Ratio 0.9 (0.9-2) Lipase 8 L (11-82) U/L Procalcitonin (0-0.5) ng/ml Urine Color Urine Appearance (Clear) Urine pH (4.5-7.5) Ur Specific [place] (1.000-1.030) Urine Protein (Negative) Urine Glucose (UA) (Negative) Urine Ketones (Negative) Urine Blood (Negative) Urine Nitrite (Negative) Urine Bilirubin (Negative) Urine Urobilinogen (Negative) Ur Leukocyte Esterase (Negative) Urine WBC (Auto) (0-5) /hpf Urine RBC (Auto) (0-4) /hpf U Hyaline Cast (Auto) (0-5) /lpf U Epithel Cells (Auto) (0-5) /lpf Urine Bacteria (Auto) (Negative) SARS-CoV-2, RNA, NAAT (NEGATIVE) 11/26/22 11/26/22 11/26/22 Range/Units 12:15 12:15 17:39 WBC (4.8-10.8) K/ul RBC (4.20-5.40) M/uL Hgb (12.0-16.0) g/dl Hct (37.0-47.0) % MCV (80.0-100.0) fL MCH (25.0-34.0) pg MCHC (32.0-36.0) g/dL RDW Std Deviation (36.4-46.3) fL RDW Coeff of Smith (11.5-14.5) % Plt Count (130-400) K/uL MPV (9.4-12.4) fL Immature Gran % (Auto) % Neut % (Auto) % Lymph % (Auto) % Angelina % (Auto) % Eos % (Auto) % Baso % (Auto) % Neut # (Auto) (1.40-6.50) K/uL Lymph # (Auto) (1.2-3.4) K/uL Angelina # (Auto) (0.11-0.59) K/uL Eos # (Auto) (0-0.50) K/uL Baso # (Auto) (0-0.2) K/uL Immature Gran # (Auto) (0.01-0.20) K/uL ESR (0-30) mm/hr Sodium (136-145) mmol/L Potassium (3.5-5.1) mmol/L Chloride (98-107) mmol/L Carbon Dioxide (21-32) mmol/L Anion Gap (3-11) BUN (6-23) mg/dl Creatinine (0.6-1.2) mg/dl Est Cr Clr Drug Dosing ml/min Est GFR ( Amer) ml/min Est GFR (Non-Af Amer) ml/min BUN/Creatinine Ratio (10-20) Glucose (70-99(Fasting)) mg/dl Lactate 0.6 (0.4-2.0) mmol/L Calcium (8.5-10.1) mg/dl Phosphorus (2.5-4.9) mg/dl Magnesium (1.7-2.4) mg/dl Total Bilirubin (0.2-1.0) mg/dl AST (13-39) U/L ALT (7-52) U/L Alkaline Phosphatase (34-104) U/L Troponin I High Sens (0-14) pg/ml C-Reactive Protein 3.02 H (0-0.5) mg/dl B-Natriuretic Peptide (0-100) pg/ml Total Protein (6.0-8.3) gm/dl Albumin (3.4-5.0) gm/dl Globulin (2.5-4.0) gm/dl Albumin/Globulin Ratio (0.9-2) Lipase (11-82) U/L Procalcitonin (0-0.5) ng/ml Urine Color Yellow Urine Appearance Cloudy A (Clear) Urine pH 7.0 (4.5-7.5) Ur Specific [place] 1.007 (1.000-1.030) Urine Protein 2+ H (Negative) Urine Glucose (UA) Negative (Negative) Urine Ketones Negative (Negative) Urine Blood 2+ H (Negative) Urine Nitrite Negative (Negative) Urine Bilirubin Negative (Negative) Urine Urobilinogen Negative (Negative) Ur Leukocyte Esterase Negative (Negative) Urine WBC (Auto) 1-5 (0-5) /hpf Urine RBC (Auto) 5-10 H (0-4) /hpf U Hyaline Cast (Auto) 1-5 (0-5) /lpf U Epithel Cells (Auto) >30 H (0-5) /lpf Urine Bacteria (Auto) 2+ H (Negative) SARS-CoV-2, RNA, NAAT (NEGATIVE) 11/26/22 11/26/22 11/26/22 Range/Units 17:39 18:30 19:19 WBC (4.8-10.8) K/ul RBC (4.20-5.40) M/uL Hgb (12.0-16.0) g/dl Hct (37.0-47.0) % MCV (80.0-100.0) fL MCH (25.0-34.0) pg MCHC (32.0-36.0) g/dL RDW Std Deviation (36.4-46.3) fL RDW Coeff of Smith (11.5-14.5) % Plt Count (130-400) K/uL MPV (9.4-12.4) fL Immature Gran % (Auto) % Neut % (Auto) % Lymph % (Auto) % Angelina % (Auto) % Eos % (Auto) % Baso % (Auto) % Neut # (Auto) (1.40-6.50) K/uL Lymph # (Auto) (1.2-3.4) K/uL Angelina # (Auto) (0.11-0.59) K/uL Eos # (Auto) (0-0.50) K/uL Baso # (Auto) (0-0.2) K/uL Immature Gran # (Auto) (0.01-0.20) K/uL ESR 87 H (0-30) mm/hr Sodium (136-145) mmol/L Potassium (3.5-5.1) mmol/L Chloride (98-107) mmol/L Carbon Dioxide (21-32) mmol/L Anion Gap (3-11) BUN (6-23) mg/dl Creatinine (0.6-1.2) mg/dl Est Cr Clr Drug Dosing ml/min Est GFR ( Amer) ml/min Est GFR (Non-Af Amer) ml/min BUN/Creatinine Ratio (10-20) Glucose (70-99(Fasting)) mg/dl Lactate (0.4-2.0) mmol/L Calcium (8.5-10.1) mg/dl Phosphorus (2.5-4.9) mg/dl Magnesium (1.7-2.4) mg/dl Total Bilirubin (0.2-1.0) mg/dl AST (13-39) U/L ALT (7-52) U/L Alkaline Phosphatase (34-104) U/L Troponin I High Sens (0-14) pg/ml C-Reactive Protein (0-0.5) mg/dl B-Natriuretic Peptide (0-100) pg/ml Total Protein (6.0-8.3) gm/dl Albumin (3.4-5.0) gm/dl Globulin (2.5-4.0) gm/dl Albumin/Globulin Ratio (0.9-2) Lipase (11-82) U/L Procalcitonin < 0.05 (0-0.5) ng/ml Urine Color Urine Appearance (Clear) Urine pH (4.5-7.5) Ur Specific [place] (1.000-1.030) Urine Protein (Negative) Urine Glucose (UA) (Negative) Urine Ketones (Negative) Urine Blood (Negative) Urine Nitrite (Negative) Urine Bilirubin (Negative) Urine Urobilinogen (Negative) Ur Leukocyte Esterase (Negative) Urine WBC (Auto) (0-5) /hpf Urine RBC (Auto) (0-4) /hpf U Hyaline Cast (Auto) (0-5) /lpf U Epithel Cells (Auto) (0-5) /lpf Urine Bacteria (Auto) (Negative) SARS-CoV-2, RNA, NAAT NEGATIVE (NEGATIVE) Administered Medications Discontinued Medications Dexamethasone Sodium Phosphate (DexamethasonePf 10 Mg/Ml Vial) 10 mg IV NOW ONE Stop: 11/26/22 11:57 Last Admin: 11/26/22 13:12 Dose: 10 mg Documented By: ROMI Diphenhydramine HCl (Diphenhydramine 50 Mg/Ml Vial) 12.5 mg IV NOW STA Stop: 11/26/22 11:57 Last Admin: 11/26/22 13:11 Dose: 12.5 mg Documented By: ROMI Acetaminophen (Ofirmev) 1,000 mg in 100 mls @ 400 mls/hr IV NOW STA Stop: 11/26/22 13:04 Last Admin: 11/26/22 13:12 Dose: 400 mls/hr Documented By: ROMI Bumetanide 1 mg/ Syringe 4 mls @ 4 mls/min IV ONE ONE Stop: 11/26/22 16:57 Last Admin: 11/26/22 18:33 Dose: 4 mls/min Documented By: ROMI Ceftriaxone Sodium (Rocephin) 2,000 mg in 70 mls @ 140 mls/hr IV NOW STA Stop: 11/26/22 17:32 Last Admin: 11/26/22 18:17 Dose: Not Given Documented By: ROIM Ioversol (Optiray 320 500ml) 114 ml IV ONCE ONE Stop: 11/26/22 14:02 Last Admin: 11/26/22 14:02 Dose: 114 ml Documented By: TURNER Lidocaine (Lidocaine 5% 1 Patch) 1 patch TD NOW STA Stop: 11/26/22 18:48 Last Admin: 11/26/22 20:07 Dose: Not Given Documented By: HERNAN Imaging Data Radiologist's Impression: Chest X-Ray 11/26/22 11:28 XR chest 1V portable HISTORY: 76 years-old Female Chest pain, nonspecific acute chest pain COMPARISON: 09/17/2022 TECHNIQUE: AP view of the chest FINDINGS: Cardiac silhouette is enlarged. No pneumothorax. Small moderate left and small right pleural effusions. Pulmonary vascular congestion. Mild left basilar consolidation. Degenerative changes of the shoulders and spine. IMPRESSION: 1. Cardiomegaly with pulmonary vascular congestion. 2. Left greater than right pleural effusions with mild left basilar consolidation. ACT 112: Negative or not required by law. The above report was generated using voice recognition software. It may contain grammatical, syntax or spelling errors. Electronically signed by: Dashawn Ramírez M.D. 11/26/2022 11:49 AM Abdomen/Pelvis CT 11/26/22 11:56 CT ANGIOGRAM OF THE CHEST; CT SCAN OF THE ABDOMEN AND PELVIS WITH IV CONTRAST CLINICAL HISTORY: Left-sided chest pain. Pleurodynia. Generalized abdominal pain. COMPARISON STUDY: Chest CT dated 06/12/2022. Abdominal CT dated 06/09/2008. Chest x-ray dated 11/26/2022. TECHNIQUE: Following the IV administration of 114 of Optiray 320, CT angiogram of the chest is performed from the upper abdomen to the thoracic inlet utilizing the pulmonary embolus protocol. Images are reviewed in the axial, sagittal, coronal planes. 3-D MIPS images are created and assessed. Subsequently, CT scan of the abdomen and pelvis was performed from the lung bases to the proximal femora. Images are reviewed in the axial, sagittal, and coronal planes. IV contrast was administered without complication. A dose lowering technique was utilized adhering to the principles of ALARA. There is streak artifact from the left arm which could not be elevated but the chest or abdomen. These examinations are also degraded by motion artifact. CT DOSE: 1378.99 mGy.cm FINDINGS: CHEST: Thyroid: Atrophic. Thoracic aorta: There is moderate atherosclerotic calcification of the thoracic aorta, which is normal in caliber and demonstrates standard 3-vessel arch anatomy. No dissection is seen. Pulmonary vasculature: The pulmonary trunk is normal in caliber. There are no filling defects identified in the main, lobar, or segmental pulmonary arteries to indicate pulmonary embolus. Evaluation of the peripheral branches is degraded by motion artifact. Heart: The heart is enlarged and without pericardial effusion. There are scattered coronary artery calcifications. Lungs and pleural spaces: Evaluation of the lung parenchyma is degraded by motion artifact. The trachea and central airways are clear. There are small pleural effusions, left larger than right. Dependent consolidation is seen on the left. Loculated fluid is seen along the left major fissure. Intralobular septal thickening is seen throughout both lungs with bilateral patchy foci of groundglass change. Atelectasis is seen at the right lung base. Mediastinum: There is no mediastinal lymphadenopathy. Josselin: Clear. Axillae: There is no axillary lymphadenopathy. Bony thorax: The skeletal structures are osteopenic. No lytic or blastic lesions are identified. Arthritic change is noted in the shoulders. ABDOMEN AND PELVIS: Liver: The contrast-enhanced liver is normal in size, contour, and attenuation. There is no intrahepatic biliary ductal dilatation. The hepatic veins and portal veins are patent. Gallbladder: Unremarkable. Spleen: Normal in size and attenuation. Pancreas: Moderately atrophic and grossly unremarkable. Adrenal glands: A 1.5 cm left adrenal nodule likely represents an adenoma but cannot be definitively characterized due to the presence of IV contrast. Kidneys: The contrast enhanced kidneys are normal in size and without hydronephrosis. There are bilateral extrarenal pelvises, right larger than left with fullness of the right renal collecting system. The kidneys enhance symmetrically. A 2.7 cm cystic structure in the interpolar left kidney seen on image #228 likely represents a cyst but is new from 2008. Abdominal vasculature: The abdominal aorta is normal in course and caliber noting moderate atherosclerotic calcification. Bowel: There is mild to moderate colonic fecal retention. No bowel obstruction is seen. The appendix is well-visualized and normal. Peritoneum: There is no intraperitoneal free air or abdominal ascites. There is a fat-containing umbilical hernia. Lymphadenopathy: Mildly enlarged external iliac chain and pelvic sidewall lymph nodes are similar to the 2008 examination. A left pelvic sidewall node on image #446 measures 13 mm short axis and a node on the right on image #391 measures 14 mm in short axis. No additional enlarged lymph nodes are seen in the abdomen or pelvis. Pelvic viscera: The bladder is distended. The uterus and adnexa are normal as visualized. Skeletal structures: The skeletal structures are osteopenic. There is mild lumbosacral spondylosis. No lytic or blastic lesions are seen. There is chronic- appearing impaction of the right femoral neck. IMPRESSION: 1. Streak and motion degraded examinations. 2. There is no evidence of pulmonary embolus in the main, lobar, or segmental pulmonary arteries. 3. Cardiomegaly with evidence of congestive failure. 4. Left larger than right pleural effusions. Loculated fluid is seen along left major fissure. 5. Left basilar consolidation could represent atelectasis and/or pneumonia. Clinical correlation will be required. 6. Patchy bilateral ground glass opacities likely represent mild pulmonary edema. Correlate clinically for evidence of a superimposed infectious/inflammatory pneumonitis. Radiographic follow-up of these findings is recommended to document resolution. 7. Bladder distention. 8. No acute infectious or inflammatory findings are identified in the abdomen or pelvis. 9. A 2.7 cm cystic structure in the interpolar left kidney likely represents a cyst but is new from 2008. This is difficult to characterize due to surrounding contrast. A nonemergent renal ultrasound is recommended for further assessment. 10. Mildly enlarged external iliac chain and pelvic side wall lymph nodes are indeterminate but similar to 2008. 11. Additional findings as above. ACT 112: Negative or not required by law. Electronically signed by: Michelet Morocho M.D. 11/26/2022 2:26 PM Chest CTA 11/26/22 11:56 CT ANGIOGRAM OF THE CHEST; CT SCAN OF THE ABDOMEN AND PELVIS WITH IV CONTRAST CLINICAL HISTORY: Left-sided chest pain. Pleurodynia. Generalized abdominal pain. COMPARISON STUDY: Chest CT dated 06/12/2022. Abdominal CT dated 06/09/2008. Chest x-ray dated 11/26/2022. TECHNIQUE: Following the IV administration of 114 of Optiray 320, CT angiogram of the chest is performed from the upper abdomen to the thoracic inlet utilizing the pulmonary embolus protocol. Images are reviewed in the axial, sagittal, coronal planes. 3-D MIPS images are created and assessed. Subsequently, CT scan of the abdomen and pelvis was performed from the lung bases to the proximal femora. Images are reviewed in the axial, sagittal, and coronal planes. IV cont rast was administered without complication. A dose lowering technique was utilized adhering to the principles of ALARA. There is streak artifact from the left arm which could not be elevated but the chest or abdomen. These examinations are also degraded by motion artifact. CT DOSE: 1378.99 mGy.cm FINDINGS: CHEST: Thyroid: Atrophic. Thoracic aorta: There is moderate atherosclerotic calcification of the thoracic aorta, which is normal in caliber and demonstrates standard 3-vessel arch anatomy. No dissection is seen. Pulmonary vasculature: The pulmonary trunk is normal in caliber. There are no filling defects identified in the main, lobar, or segmental pulmonary arteries to indicate pulmonary embolus. Evaluation of the peripheral branches is degraded by motion artifact. Heart: The heart is enlarged and without pericardial effusion. There are scattered coronary artery calcifications. Lungs and pleural spaces: Evaluation of the lung parenchyma is degraded by motion artifact. The trachea and central airways are clear. There are small pleural effusions, left larger than right. Dependent consolidation is seen on the left. Loculated fluid is seen along the left major fissure. Intralobular septal thickening is seen throughout both lungs with bilateral patchy foci of groundglass change. Atelectasis is seen at the right lung base. Mediastinum: There is no mediastinal lymphadenopathy. Josselin: Clear. Axillae: There is no axillary lymphadenopathy. Bony thorax: The skeletal structures are osteopenic. No lytic or blastic lesions are identified. Arthritic change is noted in the shoulders. ABDOMEN AND PELVIS: Liver: The contrast-enhanced liver is normal in size, contour, and attenuation. There is no intrahepatic biliary ductal dilatation. The hepatic veins and portal veins are patent. Gallbladder: Unremarkable. Spleen: Normal in size and attenuation. Pancreas: Moderately atrophic and grossly unremarkable. Adrenal glands: A 1.5 cm left adrenal nodule likely represents an adenoma but cannot be definitively characterized due to the presence of IV contrast. Kidneys: The contrast enhanced kidneys are normal in size and without hydronephrosis. There are bilateral extrarenal pelvises, right larger than left with fullness of the right renal collecting system. The kidneys enhance s ymmetrically. A 2.7 cm cystic structure in the interpolar left kidney seen on image #228 likely represents a cyst but is new from 2008. Abdominal vasculature: The abdominal aorta is normal in course and caliber noting moderate atherosclerotic calcification. Bowel: There is mild to moderate colonic fecal retention. No bowel obstruction is seen. The appendix is well-visualized and normal. Peritoneum: There is no intraperitoneal free air or abdominal ascites. There is a fat-containing umbilical hernia. Lymphadenopathy: Mildly enlarged external iliac chain and pelvic sidewall lymph nodes are similar to the 2008 examination. A left pelvic sidewall node on image #446 measures 13 mm short axis and a node on the right on image #391 measures 14 mm in short axis. No additional enlarged lymph nodes are seen in the abdomen or pelvis. Pelvic viscera: The bladder is distended. The uterus and adnexa are normal as visualized. Skeletal structures: The skeletal structures are osteopenic. There is mild lumbosacral spondylosis. No lytic or blastic lesions are seen. There is chronic- appearing impaction of the right femoral neck. IMPRESSION: 1. Streak and motion degraded examinations. 2. There is no evidence of pulmonary embolus in the main, lobar, or segmental pulmonary arteries. 3. Cardiomegaly with evidence of congestive failure. 4. Left larger than right pleural effusions. Loculated fluid is seen along left major fissure. 5. Left basilar consolidation could represent atelectasis and/or pneumonia. Clinical correlation will be required. 6. Patchy bilateral ground glass opacities likely represent mild pulmonary edema. Correlate clinically for evidence of a superimposed infectious/inflammatory pneumonitis. Radiographic follow-up of these findings is recommended to document resolution. 7. Bladder distention. 8. No acute infectious or inflammatory findings are identified in the abdomen or pelvis. 9. A 2.7 cm cystic structure in the interpolar left kidney likely represents a cyst but is new from 2008. This is difficult to characterize due to surrounding contrast. A nonemergent renal ultrasound is recommended for further assessment. 10. Mildly enlarged external iliac chain and pelvic side wall lymph nodes are indeterminate but similar to 2008. 11. Additional findings as above. ACT 112: Negative or not required by law. Electronically signed by: Michelet Morocho M.D. 11/26/2022 2:26 PM Discharge Plan Visit Data Chief Complaint: Shortness of Breath/Dyspnea Stated Complaint: SOB, CHEST PAIN ED Provider: Darshan Yoder Discharge Problem: Acute and chronic respiratory failure with hypoxia, CHF exacerbation, Pleural effusion, Lymphedema Forms Stand Alone Forms: [email or web address] Prescriptions Prescriptions: No Action (DME) OneTouch Verio test strips Strip See Rx Instructions .ROUTE .MEDSUPPLY Qty: 100 3RF Rx Instructions: for once a day testing albuterol sulfate 90 mcg/actuation HFA aerosol inhaler 2 puff INHALATION Q6H PRN (Reason: Shortness Of Breath Or Wheezing) Qty: 18 1RF albuterol sulfate 0.63 mg/3 mL solution for nebulization 0.63 mg inhalation QID PRN (Reason: shortness of breath or wheezing) Qty: 90 3RF metformin 500 mg tablet 500 mg PO BID Qty: 180 3RF bumetanide 1 mg tablet 1 mg PO DAILY Qty: 30 0RF Levemir FlexTouch U-100 Insuln 100 unit/mL (3 mL) insulin pen 30 unit subcut DAILY Qty: 15 3RF bromfenac 0.09 % drops 1 drp ophthalmic (eye) DAILY 16 Days Qty: 1.7 0RF Rx Instructions: Bring to allergy clinic for testing (DME) lancets [OneTouch Delica Lancets] 33 gauge misc See Rx Instructions .ROUTE .MEDSUPPLY Qty: 100 Rx Instructions: As directed (DME) pen needle, diabetic [BD Ultra-Fine Micro Pen Needle] 32 gauge x 1/4" needle See Rx Instructions .ROUTE .MEDSUPPLY Qty: 50 Rx Instructions: As directed (DME) Bed Side Commode Misc See Rx Instructions .Route Qty: 1 0RF Rx Instructions: As directed potassium chloride 20 mEq packet 20 meq PO DAILY Qty: 30 2RF doxycycline hyclate 50 mg tablet See Rx Instructions PO .COMPLEX Qty: 3 0RF Rx Instructions: Do not take, bring to the allergy clinic for testing (DME) inhaler,assist devices,access Device See Rx Instructions .MEDSUPPLY Qty: 1 0RF Rx Instructions: spacer for HFA inhlaer, use as directed amlodipine 5 mg tablet 5 mg PO HS olmesartan 40 mg tablet 40 mg PO QDL levothyroxine 137 mcg tablet 137 mcg PO DAILYBB (DME) blood-glucose meter [OneTouch Verio Meter] Misc See Rx Instructions .Route Qty: 1 0RF Rx Instructions: As directed budesonide-formoterol [Symbicort] 80-4.5 mcg/actuation HFA aerosol inhaler 1 inh inhalation BID Qty: 10.2 2RF (DME) Spacer for Inhaler Misc See Rx Instructions .Route Qty: 1 0RF Rx Instructions: As directed Referrals Referrals: Irish Ramos MD [Physician] -
[2022-11-26] MEDS ORDERED: ACETAMINOPHEN 1,000 MG/100 ML VIAL IV STA (12:50)
--- NOTE | 2022-11-26 12:51 | Electrocardiogram Report ---
Test Reason : Blood Pressure : / mmHG Vent. Rate : 095 BPM Atrial Rate : 095 BPM P-R Int : 184 ms QRS Dur : 092 ms QT Int : 362 ms P-R-T Axes : 069 -04 066 degrees QTc Int : 454 ms Poor data quality, interpretation may be adversely affected Normal sinus rhythm Left atrial enlargement Abnormal ECG When compared with ECG of 17-SEP-2022 19:08, No significant change Confirmed by Bijan Miranda ([id number]) on 11/26/2022 12:50:49 PM Referred By: Confirmed By:Bijan Miranda
[2022-11-26 12:56] LABS: Basophils # (auto) 0.04 K/uL (0-0.2); Basophils % (auto) 0.5 %; Eosinophils # (auto) 0.12 K/uL (0-0.50); Eosinophils % (auto) 1.5 %; Hematocrit (blood only) 36.4 % (37.0-47.0); Hemoglobin 11.5 g/dl (12.0-16.0); Immature Granulocytes # (auto) 0.04 K/uL (0.01-0.20); Immature Granulocytes % (auto) 0.5 %; Lymphocytes # (auto) 1.01 K/uL (1.2-3.4); Lymphocytes % (auto) 12.6 %; Mean Corpuscular Hemoglobin 26.9 pg (25.0-34.0); Mean Corpuscular Hgb Conc 31.6 g/dL (32.0-36.0); Mean Corpuscular Volume 85.2 fL (80.0-100.0); Mean Platelet Volume 10.4 fL (9.4-12.4); Monocytes # (auto) 0.46 K/uL (0.11-0.59); Monocytes % (auto) 5.8 %; Neutrophils # (auto) 6.32 K/uL (1.40-6.50); Neutrophils % (auto) 79.1 %; Platelet Count 261 K/uL (130-400); RDW Coefficient of Variation 14.3 % (11.5-14.5); RDW Standard Deviation 44.1 fL (36.4-46.3); Red Blood Count 4.27 M/uL (4.20-5.40); White Blood Count 7.99 K/ul (4.8-10.8)
[2022-11-26 13:02] LABS: Appearance Urine Cloudy (Clear); Bacteria Urine Automated 2+ (Negative); Bilirubin Urine Negative (Negative); Blood Urine 2+ (Negative); Color Urine Yellow; Epithelial Cell Urine Auto >30 /lpf (0-5); Glucose Urine UA Negative (Negative); Ketones Urine Negative (Negative); Leukocyte Esterase Urine Negative (Negative); Nitrite Urine Negative (Negative); Protein Urine 2+ (Negative); Specific Gravity Urine 1.007 (1.000-1.030); Urobilinogen Urine Negative (Negative)
[2022-11-26 13:12] LABS: Albumin Globulin Ratio 0.9 (0.9-2); Albumin Level 3.7 gm/dl (3.4-5.0); Bilirubin,Total 0.7 mg/dl (0.2-1.0); Calcium 8.8 mg/dl (8.5-10.1); Creatinine Clr Calc Pharmacy 70.9 ml/min; Est GFR (African American) 82.9 ml/min; Est GFR (Non-African American) 71.5 ml/min; Globulin 4.2 gm/dl (2.5-4.0); Magnesium 1.9 mg/dl (1.7-2.4); Phosphorus 3.7 mg/dl (2.5-4.9); Potassium 3.5 mmol/L (3.5-5.1); Total Protein 7.9 gm/dl (6.0-8.3)
[2022-11-26 13:16] LABS: Troponin I High Sensitivity 9.2 pg/ml (0-14)
[2022-11-26] MEDS ORDERED: OPTIRAY 320 500ml IV ONE (14:01)
--- NOTE | 2022-11-26 14:27 | CT Scan Report ---
CT ANGIOGRAM OF THE CHEST; CT SCAN OF THE ABDOMEN AND PELVIS WITH IV CONTRAST CLINICAL HISTORY: Left-sided chest pain. Pleurodynia. Generalized abdominal pain. COMPARISON STUDY: Chest CT dated 06/12/2022. Abdominal CT dated 06/09/2008. Chest x-ray dated 11/26/2022 . TECHNIQUE: Following the IV administration of 114 of Optiray 320, CT angiogram of the chest is perfor med from the upper abdomen to the thoracic inlet utilizing the pulmonary embolus protocol. Images are reviewed in the axial, sagittal, coronal planes. 3-D MIPS images are created and assessed. Subsequen tly, CT scan of the abdomen and pelvis was performed from the lung bases to the proximal femora. Imag es are reviewed in the axial, sagittal, and coronal planes. IV contrast was administered without comp lication. A dose lowering technique was utilized adhering to the principles of ALARA. There is streak artifact from the left arm which could not be elevated but the chest or abdomen. These examinations are also degraded by motion artifact. CT DOSE: 1378.99 mGy.cm FINDINGS: CHEST: Thyroid: Atrophic. Thoracic aorta: There is moderate atherosclerotic calcification of the thoracic aorta, which is meche l in caliber and demonstrates standard 3-vessel arch anatomy. No dissection is seen. Pulmonary vasculature: The pulmonary trunk is normal in caliber. There are no filling defects identif ied in the main, lobar, or segmental pulmonary arteries to indicate pulmonary embolus. Evaluation of the peripheral branches is degraded by motion artifact. Heart: The heart is enlarged and without pericardial effusion. There are scattered coronary artery ca lcifications. Lungs and pleural spaces: Evaluation of the lung parenchyma is degraded by motion artifact. The trach ea and central airways are clear. There are small pleural effusions, left larger than right. Dependen t consolidation is seen on the left. Loculated fluid is seen along the left major fissure. Intralobul ar septal thickening is seen throughout both lungs with bilateral patchy foci of groundglass change. Atelectasis is seen at the right lung base. Mediastinum: There is no mediastinal lymphadenopathy. Josselin: Clear. Axillae: There is no axillary lymphadenopathy. Bony thorax: The skeletal structures are osteopenic. No lytic or blastic lesions are identified. Arth ritic change is noted in the shoulders. ABDOMEN AND PELVIS: Liver: The contrast-enhanced liver is normal in size, contour, and attenuation. There is no intrahepa tic biliary ductal dilatation. The hepatic veins and portal veins are patent. Gallbladder: Unremarkable. Spleen: Normal in size and attenuation. Pancreas: Moderately atrophic and grossly unremarkable. Adrenal glands: A 1.5 cm left adrenal nodule likely represents an adenoma but cannot be definitively characterized due to the presence of IV contrast. Kidneys: The contrast enhanced kidneys are normal in size and without hydronephrosis. There are bilat eral extrarenal pelvises, right larger than left with fullness of the right renal collecting system. The kidneys enhance symmetrically. A 2.7 cm cystic structure in the interpolar left kidney seen on im age #228 likely represents a cyst but is new from 2008. Abdominal vasculature: The abdominal aorta is normal in course and caliber noting moderate atheroscle rotic calcification. Bowel: There is mild to moderate colonic fecal retention. No bowel obstruction is seen. The appendix is well-visualized and normal. Peritoneum: There is no intraperitoneal free air or abdominal ascites. There is a fat-containing umbi lical hernia. Lymphadenopathy: Mildly enlarged external iliac chain and pelvic sidewall lymph nodes are similar to the 2008 examination. A left pelvic sidewall node on image #446 measures 13 mm short axis and a node on the right on image #391 measures 14 mm in short axis. No additional enlarged lymph nodes are seen in the abdomen or pelvis. Pelvic viscera: The bladder is distended. The uterus and adnexa are normal as visualized. Skeletal structures: The skeletal structures are osteopenic. There is mild lumbosacral spondylosis. N o lytic or blastic lesions are seen. There is chronic-appearing impaction of the right femoral neck. IMPRESSION: 1. Streak and motion degraded examinations. 2. There is no evidence of pulmonary embolus in the main, lobar, or segmental pulmonary arteries. 3. Cardiomegaly with evidence of congestive failure. 4. Left larger than right pleural effusions. Loculated fluid is seen along left major fissure. 5. Left basilar consolidation could represent atelectasis and/or pneumonia. Clinical correlation will be required. 6. Patchy bilateral ground glass opacities likely represent mild pulmonary edema. Correlate clinicall y for evidence of a superimposed infectious/inflammatory pneumonitis. Radiographic follow-up of these findings is recommended to document resolution. 7. Bladder distention. 8. No acute infectious or inflammatory findings are identified in the abdomen or pelvis. 9. A 2.7 cm cystic structure in the interpolar left kidney likely represents a cyst but is new from 2 008. This is difficult to characterize due to surrounding contrast. A nonemergent renal ultrasound is recommended for further assessment. 10. Mildly enlarged external iliac chain and pelvic side wall lymph nodes are indeterminate but simil ar to 2008. 11. Additional findings as above. ACT 112: Negative or not required by law. Electronically signed by: Michelet Morocho M.D. 11/26/2022 2:26 PM
[2022-11-26] MEDS ORDERED: BUMETANIDE 1 MG in SYRINGE 0 ML IV ONE (16:56)
[2022-11-26] MEDS ORDERED: cefTRIAXone SODIUM 2,000 MG/70 ML BAG IV STA (17:03)
--- NOTE | 2022-11-26 17:28 | History & Physical Report ---
Date of Service November 26, 2022 Assessment & Plan (1) Pleural effusion: Plan: -Admit to med/tele -The patient is currently afebrile, hemodynamically stable, and currently stable on RA -Patient was found to have BL pleural effusions with L >R. Ct of the chest is also showing loculated fluid in along the left major fissure -CTPE was negative for PE -Was given one dose of ceftriaxone in the ED and 1mg IV Bumex -Patient has been followed outpatient by the Heart Failure team who stopped her Bumex in September attributing her LE swelling to her lymphedema -Unsure why patient is experiencing BL pleural effusions, there is likely a component of her diastolic CHF playing a role -Will consult Pulmonology for further assessment of the loculated fluid to determine the need for drainage -Will hold additional abx at this time as the patient is without a leukocytosis and stable on RA, procal is in process, if elevated will continue abx -Will continue with 1mg IV bumex daily for now, monitor intake and output -Continue home breathing treatments, will start incentive spirometry and flutter therapy -Prn O2 to keep SpO2 between 89-92% -Will use BL SCDs and Sub-Q lovenox for DVT PPX (2) Chest pain: Plan: -The patient's left-sided chest pain is likely due to her current loculated pleural effusion and scar tissue from previous pleurisy -Her cardiac workup has been negative, CT was negative for PE, her pain is reproducible to palpation -Will start q8h IV tylenol for pain (1,2,3) and a lidocaine patch -Continue to monitor for improvement with treatment of her pleural effusions (3) (HFpEF) heart failure with preserved ejection fraction: Plan: -See plural effusion (4) Acute and chronic respiratory failure with hypoxia: Plan: -Currently stable on RA -Prn O2 order placed to keep SpO2 between 89-92% -Pulm hygiene and home breathing treatments (5) Renal cyst, left: Plan: -Noted on CT of the abd/pelvis today, recommended renal US for further evaluation -Will obtain BL renal US for further assessment -Would consult urology for any concerning findings (6) Hypertension: Plan: -Stable -Continue amlodipine, olmesartan, and IV diuretics while admitted (7) Lymphedema: Plan: -Stable -Will order SCDs (8) Type 2 diabetes mellitus with peripheral neuropathy: Plan: -Monitor BSG ACHS, goal is 110-140 -Normally on 30 units detemir daily, will convert to 10 units lantus BID for now -Correction factor of 45 with carb ratio of 15 -DM II diet (9) Hypothyroidism, postablative: Plan: -Continue levothyroxine (10) Dyslipidemia: Plan: -Continue statin Plan The patient was discused with Dr. Chacko at the time of the admission History of Present Illness Chief Complaint: SOB and left chest pain Primary Care Provider: NO PCP Carli Logan is a 76yo female with PMHx significant for HFpEF (EF 55- 60% in 02/2022), asthma, chronic hypoxic respiratory failure (2L), T2DM (A1c 9.3 on 07/14/2022), HTN, lymphedema, hypothyroidism, and ambulatory dysfunction who presented to the [facility] ED on 11/26/22 with a chief complaint of 2-3 weeks of progressive left pleuritic and SOB. In the ED the patient was found to be afebrile, hypertensive at 217/110, and stable on her baseline 2L NC. Labs were remarkable for a CBC with WBC WNL, stable Hgb at 11.5, stable platelets, stable renal function with a cr of 0.81, stable electrolytes, initial high sensitivity trop of 9.2, UA showing a coudy appearance, 2+ bacteria, but nitrite and leukocyte esterase negative. Chest xray was read as 1. Cardiomegaly with pulmonary vascular congestion. 2. Left greater than right pleural effusions with mild left basilar consolidation.. CTPE and CT of the abdomen/pelvis with IV contrast was read as 1. Streak and motion degraded examinations. 2. There is no evidence of pulmonary embolus in the main, lobar, or segmental pulmonary arteries. 3. Cardiomegaly with evidence of congestive failure. 4. Left larger than right pleural effusions. Loculated fluid is seen along left major fissure. 5. Left basilar consolidation could represent atelectasis and/or pneumonia. Clinical correlation will be required. 6. Patchy bilateral ground glass opacities likely represent mild pulmonary edema. Correlate clinically for evidence of a superimposed infectious/inflammatory pneumonitis. Radiographic follow-up of these findings is recommended to document resolution. 7. Bladder distention. 8. No acute infectious or inflammatory findings are identified in the abdomen or pelvis. 9. A 2.7 cm cystic structure in the interpolar left kidney likely represents a cyst but is new from 2008. This is difficult to characterize due to surrounding contrast. A nonemergent renal ultrasound is recommended for further assessment. 10. Mildly enlarged external iliac chain and pelvic side wall lymph nodes are indeterminate but similar to 2008. 11. Additional findings as above. Prior to admission the patient was given one dose of 2g ceftriaxone, 1g IV Tylenol, 10 mg IV dexamethasone, 12.5 mg IV Benadryl, and 1 mg IV bumex. At the time of the exam the patient was resting in bed in no acute distress. She states that over the past 3 weeks she has experienced progressive SOB and lower left chest pain. She describes the left chest pain as intermittent, dull, and exacerbated with deep inspiration. The pain has not radiated over the past 3 weeks. She states that she normally wears 2L of O2 via NC as needed, typically when she is active. Over the past week she has noticed increased SOB and she noticed that her SpO2 was falling into the low 80's without her oxygen. She is still using her home breathing treatments. when confirming her medications she states that she was taking off of the Bumex after her last heart failure visit on 10/06/22. This was due to the patient's persistent LE swelling being attributed to lymphedema and not experiencing significant improvement in her SOB while using the bumex. She notes that she had one episode of chocking on water yesterday which did make her vomit the water back up, she does not think that she aspirated the water after she vomited. The patient states that she has had multiple issues with pleurisy in the past and has never been told why. The patient was also taken off of metformin when she was started on insulin. She d enies recent fevers, chills, cough, abdominal pain, nausea, dysuria, hematuria, and recent falls. We discussed code status, the patient wishes to be a Full Code. At the start of my exam the patient was saturating at 97% on 2L NC. I turned her O2 off at the start of my exam and she remained stable between 95-97% on RA. Please refer to Dr. Chacko's attestation for any changes to the treatment plan Allergies Allergy/AdvReac Type Severity Reaction Status Date / Time aspirin Allergy Severe HIVES; Verified 11/12/22 09:17 DIFFICULTY BREATHING colchicine Allergy Severe Difficulty Verified 11/12/22 09:17 Breathing Benzodiazepines Allergy Mild Unknown Verified 11/12/22 09:17 doxycycline Allergy Mild Unknown Verified 11/12/22 09:17 aspartame Allergy Unknown Unknown Verified 11/12/22 09:17 diltiazem Allergy Unknown UNKNOWN Verified 11/12/22 09:17 REACTION melon Allergy Unknown Unknown Verified 11/12/22 09:17 nifedipine Allergy Unknown UNKNOWN Verified 11/12/22 09:17 REACTION simvastatin Allergy Unknown UNKNOWN Verified 11/12/22 09:17 REACTION PER PT sucralose Allergy Unknown Unknown Verified 11/27/22 11:24 vancomycin Allergy Unknown UNKNOWN Verified 11/12/22 09:17 REACTION Iodinated Contrast Media AdvReac Intermediate Rash Verified 11/12/22 09:17 Home Medications Medication Instructions Recorded Confirmed Type blood sugar diagnostic (OneTouch #100 ea 12/05/20 11/26/22 Rx Verio test strips) lancets 33 gauge (OneTouch Delica #100 ea 01/03/21 11/26/22 History Lancets) pen needle, diabetic 32 gauge x #50 ea 01/03/21 11/26/22 History 1/4" (BD Ultra-Fine Micro Pen Needle) Bed Side Commode #1 ea 08/28/21 11/26/22 Rx amlodipine 5 mg tablet 5 mg PO HS 02/17/22 11/26/22 History olmesartan 40 mg tablet 40 mg PO QDL 02/17/22 11/26/22 History albuterol sulfate 90 mcg/actuation 2 puff inhalation Q6H PRN 06/30/22 11/26/22 Rx aerosol inhaler Shortness Of Breath Or Wheezing #18 grams levothyroxine 137 mcg tablet 137 mcg PO DAILYBB 07/07/22 11/26/22 History blood-glucose meter (OneTouch #1 ea 07/09/22 11/26/22 Rx Verio Meter) potassium chloride 20 mEq oral 20 meq PO DAILY #30 ea 07/14/22 11/26/22 Rx packet albuterol sulfate 0.63 mg/3 mL 0.63 mg (3 mL) inhalation QID PRN 07/20/22 11/26/22 Rx solution for nebulization shortness of breath or wheezing #90 mL bumetanide 1 mg tablet 1 mg PO DAILY #30 tabs 08/21/22 11/26/22 Rx metformin 500 mg tablet 500 mg PO BID #180 tabs 08/21/22 11/26/22 Rx doxycycline hyclate 50 mg tablet See Rx Instructions PO .COMPLEX #3 08/28/22 11/26/22 Rx tabs Spacer for Inhaler #1 ea 09/04/22 11/26/22 Rx budesonide-formoterol HFA 80 1 inh inhalation BID #10.2 grams 09/04/22 11/26/22 Rx mcg-4.5 mcg/actuation aerosol inhaler (Symbicort) insulin detemir U-100 100 unit/mL 30 unit (0.3 mL) subcut DAILY #15 10/11/22 11/26/22 Rx (3 mL) subcutaneous pen (Levemir mL FlexTouch U-100 Insulin) bromfenac 0.09 % eye drops 1 drp ophthalmic (eye) DAILY 16 10/30/22 11/26/22 Rx days #1.7 mL inhaler,assist devices,access #1 ea 11/05/22 11/26/22 Rx Past Med/Surg History Medical History (Updated 11/26/22 @ 20:30 by Darshan Yoder MD) Acute diastolic (congestive) heart failure Ambulatory dysfunction Asthma Cardiac arrest Chest pain Chronic edema Chronic respiratory failure with hypoxia, on home O2 therapy Closed right hip fracture Contusion of elbow Diabetes mellitus with albuminuria Diastolic heart failure Dyslipidemia Elevated serum globulin level Financial difficulties Gait abnormality History of ectopic History of seizures as a child HTN (hypertension) Hx of pleurisy Hx of thyroid cancer Hypokalemia Hypomagnesemia Hypothyroidism, postablative Injury of right leg Lower extremity edema Mild intermittent asthma Multiple drug allergies Obstructive pattern present on pulmonary function testing Pleurisy without effusion Pleuritic chest pain Right knee DJD Shakiness Type 2 diabetes mellitus Type 2 diabetes mellitus with peripheral neuropathy Wheelchair bound Surgical History History of D&C Hx of brain surgery 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) Hx of section Hx of thyroidectomy Family History Father Stroke Mother Dementia Diabetes Sister Macular degeneration Brother Macular degeneration Other TIA (transient ischemic attack) Denies family history of Ovarian cancer Prostate cancer Myocardial infarction Breast cancer Colorectal cancer Social History Smoking Status: Never smoker Second Hand Exposure: No; Hx Alcohol Use: No Hx Substance Use: No Preferred Language: Bruneian Communication Ability: Effective Visual Impairment: No Limitations Hearing Ability: Normal Fire Fighting Equipment Specialist Required: No Beliefs That Will Affect Care: None marital status: / Current Living Situation: Alone current occupational status: retired 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 All systems have been reviewed and are otherwise negative. Physical Exam Physical Exam: Physical Exam: General: In no acute distress, stated age, chronically ill-appearing but non- toxic appearing HEENT: Normocephalic, atraumatic, no scleral icterus, pupils around round, symmetrical, and reactive to light, moist mucus membranes, trachea midline, no thyromegaly Chest/Pulm: No respiratory distress, symmetrical chest expansion, patient with with decreased breath sounds in the BL lower lung brooke with L>R, BL expiratory wheezing in the upper lung brooke Cardiac: Patient with reproducible chest pain to palpation over the lower left ribs, RRR, no murmurs noted Abdomen: Negative for ascites and bruising, normoactive bowel sounds, soft, non-tender to palpation throughout Musculoskeletal: Patient with limited mobility of the RLE due to known/chronic right hip fracture, intact ROM in all other extremities Extremities: Patient with significant BL lymphedema, distal pulses are difficult to palpate due to edema but patient's lower extremities are warm and cap refill is less than 3 seconds Skin: Warm, dry, no rashes , lesions, or scars noted Neuro: Alert and oriented to person, place, month, year, and president, no focal defects, no tremors noted Psych: No acute distress, calm and cooperative during the exam Results & Data Results & Data ([facility]) Vital Signs (Past 12 Hours) Vital Signs Temp Pulse Pulse Resp BP BP Pulse Ox 11/26/22 17:22 89 16 169/91 H 95 11/26/22 11:39 81 L 11/26/22 11:41 36.7 C 98 H 18 217/110 H 95 O2 Del Method O2 Flow Rate 11/26/22 17:22 Nasal Cannula 2 11/26/22 11:39 Room Air 11/26/22 11:41 Nasal Cannula 2 Laboratory Results Abnormal lab results 11/26/22 11/26/22 11/26/22 Range/Units 12:15 12:15 12:15 Hgb 11.5 L (12.0-16.0) g/dl Hct 36.4 L (37.0-47.0) % MCHC 31.6 L (32.0-36.0) g/dL Lymph # (Auto) 1.01 L (1.2-3.4) K/uL Carbon Dioxide 36 H (21-32) mmol/L BUN/Creatinine Ratio 21.0 H (10-20) Glucose 138 H (70-99(Fasting)) mg/dl Globulin 4.2 H (2.5-4.0) gm/dl Lipase 8 L (11-82) U/L Urine Appearance Cloudy A (Clear) Urine Protein 2+ H (Negative) Urine Blood 2+ H (Negative) Urine RBC (Auto) 5-10 H (0-4) /hpf U Epithel Cells (Auto) >30 H (0-5) /lpf Urine Bacteria (Auto) 2+ H (Negative) Diagnostic Findings Chest X-Ray 11/26/22 11:28 XR chest 1V portable HISTORY: 76 years-old Female Chest pain, nonspecific acute chest pain COMPARISON: 09/17/2022 TECHNIQUE: AP view of the chest FINDINGS: Cardiac silhouette is enlarged. No pneumothorax. Small moderate left and small right pleural effusions. Pulmonary vascular congestion. Mild left basilar consolidation. Degenerative changes of the shoulders and spine. IMPRESSION: 1. Cardiomegaly with pulmonary vascular congestion. 2. Left greater than right pleural effusions with mild left basilar consolidation. ACT 112: Negative or not required by law. The above report was generated using voice recognition software. It may contain grammatical, syntax or spelling errors. Electronically signed by: Dashawn Ramírez M.D. 11/26/2022 11:49 AM Abdomen/Pelvis CT 11/26/22 11:56 CT ANGIOGRAM OF THE CHEST; CT SCAN OF THE ABDOMEN AND PELVIS WITH IV CONTRAST CLINICAL HISTORY: Left-sided chest pain. Pleurodynia. Generalized abdominal pain. COMPARISON STUDY: Chest CT dated 06/12/2022. Abdominal CT dated 06/09/2008. Chest x-ray dated 11/26/2022. TECHNIQUE: Following the IV administration of 114 of Optiray 320, CT angiogram of the chest is performed from the upper abdomen to the thoracic inlet utilizing the pulmonary embolus protocol. Images are reviewed in the axial, sagittal, coronal planes. 3-D MIPS images are created and assessed. Subsequently, CT scan of the abdomen and pelvis was performed from the lung bases to the proximal femora. Images are reviewed in the axial, sagittal, and coronal planes. IV contrast was administered without complication. A dose lowering technique was utilized adhering to the principles of ALARA. There is streak artifact from the left arm which could not be elevated but the chest or abdomen. These examinations are also degraded by motion artifact. CT DOSE: 1378.99 mGy.cm FINDINGS: CHEST: Thyroid: Atrophic. Thoracic aorta: There is moderate atherosclerotic calcification of the thoracic aorta, which is normal in caliber and demonstrates standard 3-vessel arch anatomy. No dissection is seen. Pulmonary vasculature: The pulmonary trunk is normal in caliber. There are no filling defects identified in the main, lobar, or segmental pulmonary arteries to indicate pulmonary embolus. Evaluation of the peripheral branches is degraded by motion artifact. Heart: The heart is enlarged and without pericardial effusion. There are scattered coronary artery calcifications. Lungs and pleural spaces: Evaluation of the lung parenchyma is degraded by motion artifact. The trachea and central airways are clear. There are small pleural effusions, left larger than right. Dependent consolidation is seen on the left. Loculated fluid is seen along the left major fissure. Intralobular septal thickening is seen throughout both lungs with bilateral patchy foci of groundglass change. Atelectasis is seen at the right lung base. Mediastinum: There is no mediastinal lymphadenopathy. Josselin: Clear. Axillae: There is no axillary lymphadenopathy. Bony thorax: The skeletal structures are osteopenic. No lytic or blastic lesions are identified. Arthritic change is noted in the shoulders. ABDOMEN AND PELVIS: Liver: The contrast-enhanced liver is normal in size, contour, and attenuation. There is no intrahepatic biliary ductal dilatation. The hepatic veins and portal veins are patent. Gallbladder: Unremarkable. Spleen: Normal in size and attenuation. Pancreas: Moderately atrophic and grossly unremarkable. Adrenal glands: A 1.5 cm left adrenal nodule likely represents an adenoma but c annot be definitively characterized due to the presence of IV contrast. Kidneys: The contrast enhanced kidneys are normal in size and without hydronephrosis. There are bilateral extrarenal pelvises, right larger than left with fullness of the right renal collecting system. The kidneys enhance symmetrically. A 2.7 cm cystic structure in the interpolar left kidney seen on image #228 likely represents a cyst but is new from 2008. Abdominal vasculature: The abdominal aorta is normal in course and caliber noting moderate atherosclerotic calcification. Bowel: There is mild to moderate colonic fecal retention. No bowel obstruction is seen. The appendix is well-visualized and normal. Peritoneum: There is no intraperitoneal free air or abdominal ascites. There is a fat-containing umbilical hernia. Lymphadenopathy: Mildly enlarged external iliac chain and pelvic sidewall lymph nodes are similar to the 2008 examination. A left pelvic sidewall node on image #446 measures 13 mm short axis and a node on the right on image #391 measures 14 mm in short axis. No additional enlarged lymph nodes are seen in the abdomen or pelvis. Pelvic viscera: The bladder is distended. The uterus and adnexa are normal as visualized. Skeletal structures: The skeletal structures are osteopenic. There is mild lumbosacral spondylosis. No lytic or blastic lesions are seen. There is chronic- appearing impaction of the right femoral neck. IMPRESSION: 1. Streak and motion degraded examinations. 2. There is no evidence of pulmonary embolus in the main, lobar, or segmental pulmonary arteries. 3. Cardiomegaly with evidence of congestive failure. 4. Left larger than right pleural effusions. Loculated fluid is seen along left major fissure. 5. Left basilar consolidation could represent atelectasis and/or pneumonia. Clinical correlation will be required. 6. Patchy bilateral ground glass opacities likely represent mild pulmonary edema. Correlate clinically for evidence of a superimposed infectious/inflammatory pneumonitis. Radiographic follow-up of these findings is recommended to document resolution. 7. Bladder distention. 8. No acute infectious or inflammatory findings are identified in the abdomen or pelvis. 9. A 2.7 cm cystic structure in the interpolar left kidney likely represents a cyst but is new from 2008. This is difficult to characterize due to surrounding contrast. A nonemergent renal ultrasound is recommended for further assessment. 10. Mildly enlarged external iliac chain and pelvic side wall lymph nodes are indeterminate but similar to 2008. 11. Additional findings as above. ACT 112: Negative or not required by law. Electronically signed by: Michelet Morocho M.D. 11/26/2022 2:26 PM Chest CTA 11/26/22 11:56 CT ANGIOGRAM OF THE CHEST; CT SCAN OF THE ABDOMEN AND PELVIS WITH IV CONTRAST CLINICAL HISTORY: Left-sided chest pain. Pleurodynia. Generalized abdominal pain. COMPARISON STUDY: Chest CT dated 06/12/2022. Abdominal CT dated 06/09/2008. Chest x-ray dated 11/26/2022. TECHNIQUE: Following the IV administration of 114 of Optiray 320, CT angiogram of the chest is performed from the upper abdomen to the thoracic inlet utilizing the pulmonary embolus protocol. Images are reviewed in the axial, sagittal, coronal planes. 3-D MIPS images are created and assessed. Subsequently, CT scan of the abdomen and pelvis was performed from the lung bases to the proximal femora. Images are reviewed in the axial, sagittal, and coronal planes. IV contrast was administered without complication. A dose lowering technique was utilized adhering to the principles of ALARA. There is streak artifact from the left arm which could not be elevated but the chest or abdomen. These examinations are also degraded by motion artifact. CT DOSE: 1378.99 mGy.cm FINDINGS: CHEST: Thyroid: Atrophic. Thoracic aorta: There is moderate atherosclerotic calcification of the thoracic aorta, which is normal in caliber and demonstrates standard 3-vessel arch anatomy. No dissection is seen. Pulmonary vasculature: The pulmonary trunk is normal in caliber. There are no filling defects identified in the main, lobar, or segmental pulmonary arteries to indicate pulmonary embolus. Evaluation of the peripheral branches is degraded by motion artifact. Heart: The heart is enlarged and without pericardial effusion. There are scattered coronary artery calcifications. Lungs and pleural spaces: Evaluation of the lung parenchyma is degraded by motion artifact. The trachea and central airways are clear. There are small pleural effusions, left larger than right. Dependent consolidation is seen on the left. Loculated fluid is seen along the left major fissure. Intralobular septal thickening is seen throughout both lungs with bilateral patchy foci of groundglass change. Atelectasis is seen at the right lung base. Mediastinum: There is no mediastinal lymphadenopathy. Josselin: Clear. Axillae: There is no axillary lymphadenopathy. Bony thorax: The skeletal structures are osteopenic. No lytic or blastic lesions are identified. Arthritic change is noted in the shoulders. ABDOMEN AND PELVIS: Liver: The contrast-enhanced liver is normal in size, contour, and attenuation. There is no intrahepatic biliary ductal dilatation. The hepatic veins and portal veins are patent. Gallbladder: Unremarkable. Spleen: Normal in size and attenuation. Pancreas: Moderately atrophic and grossly unremarkable. Adrenal glands: A 1.5 cm left adrenal nodule likely represents an adenoma but cannot be definitively characterized due to the presence of IV contrast. Kidneys: The contrast enhanced kidneys are normal in size and without hydronephrosis. There are bilateral extrarenal pelvises, right larger than left with fullness of the right renal collecting system. The kidneys enhance symmetrically. A 2.7 cm cystic structure in the interpolar left kidney seen on image #228 likely represents a cyst but is new from 2008. Abdominal vasculature: The abdominal aorta is normal in course and caliber noting moderate atherosclerotic calcification. Bowel: There is mild to moderate colonic fecal retention. No bowel obstruction is seen. The appendix is well-visualized and normal. Peritoneum: There is no intraperitoneal free air or abdominal ascites. There is a fat-containing umbilical hernia. Lymphadenopathy: Mildly enlarged external iliac chain and pelvic sidewall lymph nodes are similar to the 2008 examination. A left pelvic sidewall node on image #446 measures 13 mm short axis and a node on the right on image #391 measures 14 mm in short axis. No additional enlarged lymph nodes are seen in the abdomen or pelvis. Pelvic viscera: The bladder is distended. The uterus and adnexa are normal as visualized. Skeletal structures: The skeletal structures are osteopenic. There is mild lumbosacral spondylosis. No lytic or blastic lesions are seen. There is chronic- appearing impaction of the right femoral neck. IMPRESSION: 1. Streak and motion degraded examinations. 2. There is no evidence of pulmonary embolus in the main, lobar, or segmental pulmonary arteries. 3. Cardiomegaly with evidence of congestive failure. 4. Left larger than right pleural effusions. Loculated fluid is seen along left major fissure. 5. Left basilar consolidation could represent atelectasis and/or pneumonia. Clinical correlation will be required. 6. Patchy bilateral ground glass opacities likely represent mild pulmonary edema. Correlate clinically for evidence of a superimposed infectious/inflamma tory pneumonitis. Radiographic follow-up of these findings is recommended to document resolution. 7. Bladder distention. 8. No acute infectious or inflammatory findings are identified in the abdomen or pelvis. 9. A 2.7 cm cystic structure in the interpolar left kidney likely represents a cyst but is new from 2008. This is difficult to characterize due to surrounding contrast. A nonemergent renal ultrasound is recommended for further assessment. 10. Mildly enlarged external iliac chain and pelvic side wall lymph nodes are indeterminate but similar to 2008. 11. Additional findings as above. ACT 112: Negative or not required by law. Electronically signed by: Michelet Morocho M.D. 11/26/2022 2:26 PM ECG Additional Comments: Poor data quality, interpretation may be adversely affected Normal sinus rhythm Left atrial enlargement Abnormal ECG When compared with ECG of 17-SEP-2022 19:08, No significant change Confirmed by Bijan Miranda ([id number]) on 11/26/2022 12:50:49 PM Code Status & VTE Plan Code Status Full code VTE Prophylaxis Plan VTE Prophylaxis will be ordered: Yes Supervising Physician Co-Signing Physician Notes I personally saw and examined the patient. I verified all dickerson points and agree with Gonzalo Turpin PA-C with the following exceptions and/or additions: 76 year old female presents to the ER with shortness of breath over last 3 weeks but much worse over last few days. Productive clear cough. Main complaint is her chest pain which is recurrent and ongoing for many years intermittently - reports this started after "pleurisy" requiring antibiotics after the of her daughter. O/E A&Ox3, RRR, no murmurs, Bibasal crackles R > L, no wheezing, pedal edema 3+ equal b/l. Chest pain reproducible on palpation. Abdo SNT. A/P Pleural effusions with right sided consolidation - Suspect mostly due to her not taking her bumex as she finds it difficult to get up and down from her wheelchair with her broken hip. Possible aspiration pneumonitis from history vs. atelectasis. WBC and procalcitonin negative, low suspicion of concurrent pneumonia will defer antibiotics currently and ceftriaxone from ER discontinued. Consult pulmonology to consider thoracentesis given concern for possible pneumonia and consolidation around this. Acute heart failure with preserved ejection fraction - thought not to be a true HF per last heart failure clinic note however given pleural effusion and pulmonary edema suspect this is true HF rather than just lymphedema. Not currently taking bumex - will start on 1mg IV daily to aim for 1-2 L/day net negative balance. Chest pain - appears MSK due to reproducibility, agree with acetaminophen and lidocaine patch. 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
[2022-11-26] MEDS ORDERED: GLUCOSE 40% GEL 15 GM TUBE PO PRN (17:33)
[2022-11-26] MEDS ORDERED: CARBOHYDRATES FOR HYPOGLYCEMIA PO PRN (17:33)
[2022-11-26] MEDS ORDERED: GLUCAGON FOR INJ 1 MG VIAL SQ PRN (17:33)
[2022-11-26] MEDS ORDERED: GLUCOSE 10 TAB/TUBE PO PRN (17:33)
[2022-11-26] MEDS ORDERED: DEXTROSE 50% 50 ML SYRINGE IV PRN (17:33)
[2022-11-26] MEDS ORDERED: LIDOCAINE 5% 1 PATCH TD STA (18:47)
[2022-11-26] MEDS ORDERED: ALBUTEROL HFA 8 GM INHALER INH PRN (21:43)
[2022-11-26] MEDS ORDERED: amLODIPine BESYLATE 5 MG TAB PO SCH (21:43)
[2022-11-26] MEDS: INSULIN ASPART PER UNIT SC SCH (22:33)
[2022-11-26] MEDS: LANTUS PER UNIT CHARGE SQ SCH (22:34)
[2022-11-26] MEDS: OLMESARTAN MEDOXOMIL 40 MG TAB PO SCH (22:34)
[2022-11-26] MEDS: ENOXAPARIN INJ 40 MG/0.4 ML SYR SQ SCH (22:36)
[2022-11-27 06:01] LABS: Hematocrit (blood only) 34.4 % (37.0-47.0); Hemoglobin 11.1 g/dl (12.0-16.0); Mean Corpuscular Hemoglobin 27.1 pg (25.0-34.0); Mean Corpuscular Hgb Conc 32.3 g/dL (32.0-36.0); Mean Corpuscular Volume 83.9 fL (80.0-100.0); Mean Platelet Volume 10.7 fL (9.4-12.4); Platelet Count 251 K/uL (130-400); RDW Coefficient of Variation 14.1 % (11.5-14.5); RDW Standard Deviation 43.5 fL (36.4-46.3); White Blood Count 6.85 K/ul (4.8-10.8)
[2022-11-27] MEDS: LEVOTHYROXINE SODIUM 137 MCG TABLET PO SCH (06:11)
[2022-11-27 06:22] LABS: Calcium 8.6 mg/dl (8.5-10.1); Magnesium 1.9 mg/dl (1.7-2.4); Potassium 3.8 mmol/L (3.5-5.1)
[2022-11-27 06:27] LABS: BUN Creatinine Ratio 24.7 (10-20); Creatinine Clr Calc Pharmacy 64.5 ml/min; Est GFR (Non-African American) 63.8 ml/min
--- NOTE | 2022-11-27 07:36 | Ultrasound Report ---
RENAL ULTRASOUND HISTORY: Follow up study in a patient with cystic lesion of the left kidney cystic lesion of left tanya mccall seen on CT today COMPARISON: CT of same day FINDINGS: Right kidney: 12.8 No hydronephrosis. Mild perinephric stranding. Normal corticomedullary differentia tion and cortical thickness. Left kidney: 13.2 No hydronephrosis. 2.0 x 1.3 x 2.4 cm cyst of the interpolar left kidney without co sola flow. There is a questioned area of mural nodularity along the inferior component. Mild perinephr ic stranding. Normal corticomedullary differentiation and cortical thickness. Bladder: No bladder wall thickening. The bilateral ureteral jets were identified. IMPRESSION: 1. No renal calculi or hydronephrosis. 2. 2.4 cm cyst of the interpolar left kidney with equivocal area of mural nodularity. 6 month follow- up renal ultrasound recommended. ACT 112: Negative or not required by law. Electronically signed by: Dashawn Ramírez M.D. 11/27/2022 7:34 AM
[2022-11-27] MEDS: LIDOCAINE 5% 1 PATCH TD SCH (08:06)
[2022-11-27] MEDS ORDERED: cefTRIAXone SODIUM 1,000 MG in DEXTROSE 5% AD-VAN 50 ML IV SCH (08:15)
[2022-11-27] MEDS: BUMETANIDE 1 MG in SYRINGE 0 ML IV SCH ×2 (08:41→19:41)
[2022-11-27] MEDS: LANTUS PER UNIT CHARGE SQ SCH ×2 (08:41→22:12)
[2022-11-27] MEDS: INSULIN ASPART PER UNIT SC SCH ×4 (08:41→22:12)
[2022-11-27] MEDS: FLUTICASONE/VILANTEROL 100/25MCG 14 PUFFS/INHALER INH SCH (08:42)
[2022-11-27] MEDS: amLODIPine BESYLATE 5 MG TAB PO SCH (08:42)
[2022-11-27] MEDS: cefTRIAXone SODIUM 2,000 MG in DEXTROSE 5% 50 ML IV SCH (08:42)
[2022-11-27] MEDS ORDERED: BUMETANIDE 1 MG in SYRINGE 0 ML IV SCH (09:00)
[2022-11-27] MEDS: ACETAMINOPHEN 1,000 MG/100 ML VIAL IV PRN ×2 (09:25→19:42)
[2022-11-27] MEDS ORDERED: OLMESARTAN MEDOXOMIL 40 MG TAB PO SCH (11:30)
--- NOTE | 2022-11-27 12:20 | Hospitalist Progress Note ---
Date of Service November 27, 2022 Assessment & Plan (1) Pleural effusion: Plan: Bilateral pleural effusions appear to be related to congestive heart failure. They should resolve with treatment of CHF. Serial chest x-rays until resolved.- Admit to med/tele (2) Chest pain: Plan: No evidence of acute coronary syndrome. Telemetry. Supportive care. Admission chest CT was negative for PE. Her pain is reproducible to palpation . Appears to be noncardiac (3) (HFpEF) heart failure with preserved ejection fraction: Plan: Acute on chronic. Continue Bumex diuresis. Monitor intake and output. Serial chest x-ray (4) Acute and chronic respiratory failure with hypoxia: Plan: She does not appear to have an acute exacerbation. This appears to be stable. Treat underlying CHF. O2 as needed to maintain saturation greater than 90% (5) Renal cyst, left: Plan: Incidental finding on CT scan. No current symptoms. No intervention necessary at this time (6) Hypertension: Plan: Stable on amlodipine, olmesartan, and IV diuretics while admitted (7) Lymphedema: Plan: Stable . Chronic. Leg elevation and SCDs while hospitalized (8) Type 2 diabetes mellitus with peripheral neuropathy: Plan: ADA diet. Lantus replaces detemir while hospitalized. Sliding scale coverage as needed -DM II diet (9) Hypothyroidism, postablative: Plan: Continue levothyroxine replacement therapy (10) Dyslipidemia: Plan: Continue statin (11) Urinary tract infection: Plan: This appears to be uncomplicated. Cultures pending. Continue intravenous Rocephin for now. Will tailor antibiotics per culture results Plan Anticipate eventual discharge back to home. Admission and Anticipated Discharge Date Admission Date: November 27, 2022 Subjective Alert and oriented. No acute distress. She is being treated for acute herminia stolic CHF which appears to be acute on chronic. She has associated bilateral pleural effusions that should resolve over time. She is also on intravenous Rocephin for UTI. Cultures are pending. No acute distress. She is receiving intravenous Bumex every 12 hours for diuresis. Review of Systems Review of Systems: Constitutional-no fever or chills ENT-no blurred vision, no double vision, no epistaxis, no sore throat Respiratory-dyspnea on exertion . No cough, no wheezing, no hemoptysis Cardiac-no palpitations, no chest pain, no syncope GI-no nausea, vomiting, diarrhea, melena, hematochezia -no urinary retention, no urinary incontinence, no dysuria, no hematuria Musculoskeletal-no joint pain, no muscle tenderness Skin-no bruising, no rashes, no pruritus GUdysuria. No hematuria Neuro-no isolated weakness, no paresthesia, no weakness Psych-no depression, no anxiety Physical Exam Physical Exam: General-alert and oriented x3, no fevers, no chills HEENT-head atraumatic and normocephalic, pupils equal and reactive to light, extraocular muscles intact Neck-no lymphadenopathy or thyromegaly, trachea midline Chest-bibasilar inspiratory rales with dullness at both bases. No wheezing. No rhonchi Cardiac-regular rate and rhythm, normal S1 and S2 Abdomen-normal bowel sounds, nontender, no hepatosplenomegaly Extremities-chronic appearing edema involving both legs below the knees. Suspected chronic venous insufficiency Neuro-cranial nerves II through XII intact, motor and sensory function within normal limits, strength symmetrical , no focal deficits Psych-normal affect, normal mood Results & Data Results & Data ([facility]) Vital Signs (Past 12 Hours) Vital Signs Temp Pulse Pulse Resp BP Pulse Ox O2 Del Method 11/27/22 12:05 36.7 C 78 18 179/69 H 98 Room Air 11/27/22 08:45 Nasal Cannula 11/27/22 08:02 36.9 C 76 18 185/68 H 97 Nasal Cannula 11/27/22 07:21 65 11/27/22 04:00 36.5 C 78 18 169/74 H 96 Nasal Cannula O2 Flow Rate 11/27/22 12:05 11/27/22 08:45 2 11/27/22 08:02 2 11/27/22 07:21 11/27/22 04:00 2 Laboratory Results 11/27/22 05:32 11/27/22 05:32 PG Care Time/CCT Total # of Minutes Spent Total Time Spent with Patient: Total time spent is greater than 50% in coordination of care (as documented) at patient's floor/unit and/or counseling patient: Coding Level of Care Code 86950 SUB INP/OBS CARE 3/50MIN Diagnoses Pleural effusion J90 Chest pain R07.9 (HFpEF) heart failure with preserved ejection fraction I50.30 Acute and chronic respiratory failure with hypoxia J96.21 Renal cyst, left N28.1 Hypertension I10 Hypertension type: unspecified Lymphedema I89.0 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
[2022-11-27] MEDS: ENOXAPARIN INJ 40 MG/0.4 ML SYR SQ SCH (22:01)
[2022-11-27] MEDS: OLMESARTAN MEDOXOMIL 40 MG TAB PO SCH (22:01)
[2022-11-27] MEDS: ALBUTEROL 0.083% NEBU SOLN 3 ML VIAL INH PRN (22:44)
[2022-11-28] MEDS: ENOXAPARIN INJ 40 MG/0.4 ML SYR SQ SCH ×2 (02:35→22:09)
[2022-11-28] MEDS: ALBUTEROL 0.083% NEBU SOLN 3 ML VIAL INH PRN ×2 (04:13→17:34)
[2022-11-28] MEDS: ACETAMINOPHEN 1,000 MG/100 ML VIAL IV PRN ×2 (04:56→17:18)
[2022-11-28] MEDS: LEVOTHYROXINE SODIUM 137 MCG TABLET PO SCH (06:18)
[2022-11-28 08:28] LABS: Hematocrit (blood only) 32.8 % (37.0-47.0); Hemoglobin 10.4 g/dl (12.0-16.0); Mean Corpuscular Hemoglobin 26.9 pg (25.0-34.0); Mean Corpuscular Hgb Conc 31.7 g/dL (32.0-36.0); Mean Corpuscular Volume 84.8 fL (80.0-100.0); Mean Platelet Volume 10.8 fL (9.4-12.4); Platelet Count 264 K/uL (130-400); RDW Coefficient of Variation 14.3 % (11.5-14.5); RDW Standard Deviation 43.8 fL (36.4-46.3); Red Blood Count 3.87 M/uL (4.20-5.40); White Blood Count 7.63 K/ul (4.8-10.8)
[2022-11-28 08:30] LABS: Calcium 8.1 mg/dl (8.5-10.1); Creatinine Clr Calc Pharmacy 57.7 ml/min; Est GFR (African American) 64.3 ml/min; Est GFR (Non-African American) 55.5 ml/min; Magnesium 1.7 mg/dl (1.7-2.4); Potassium 3.3 mmol/L (3.5-5.1)
[2022-11-28 08:56] LABS: Estimated Average Glucose 186 mg/dl; Hemoglobin A1C 8.1 % (4.5-5.6)
[2022-11-28] MEDS: INSULIN ASPART PER UNIT SC SCH ×4 (09:53→22:08)
[2022-11-28] MEDS: LANTUS PER UNIT CHARGE SQ SCH ×2 (09:54→22:08)
[2022-11-28] MEDS: BUMETANIDE 1 MG in SYRINGE 0 ML IV SCH ×2 (09:54→22:08)
[2022-11-28] MEDS: cefTRIAXone SODIUM 2,000 MG in DEXTROSE 5% 50 ML IV SCH (09:55)
[2022-11-28] MEDS: amLODIPine BESYLATE 5 MG TAB PO SCH (09:56)
[2022-11-28] MEDS: LIDOCAINE 5% 1 PATCH TD SCH (09:57)
[2022-11-28] MEDS: FLUTICASONE/VILANTEROL 100/25MCG 14 PUFFS/INHALER INH SCH (09:58)
[2022-11-28] MEDS ORDERED: POTASSIUM CHLORIDE CRTAB 20 MEQ TABCR PO SCH (10:00)
--- NOTE | 2022-11-28 12:44 | Hospitalist Progress Note ---
Date of Service November 28, 2022 Assessment & Plan (1) Pleural effusion: Plan: Bilateral pleural effusions appear to be related to congestive heart failure. They should resolve with treatment of CHF. Serial chest x-rays until resolved. No indication for thoracentesis at this time (2) Chest pain: Plan: No evidence of acute coronary syndrome. Telemetry. Supportive care. Admission chest CT was negative for PE. Her pain is reproducible to palpation . Appears to be noncardiac . Repeat EKG today, November 28, shows no acute changes (3) (HFpEF) heart failure with preserved ejection fraction: Plan: Acute on chronic. Continue Bumex diuresis. Monitor intake and output. Serial chest x-ray . Improving (4) Acute and chronic respiratory failure with hypoxia: Plan: She does not appear to have an acute exacerbation. This appears to be stable. Treat underlying CHF. O2 as needed to maintain saturation greater than 90% (5) Renal cyst, left: Plan: Incidental finding on CT scan and also evaluated by ultrasound. No current symptoms. No intervention necessary at this time . This warrants continued outpatient follow-up however (6) Hypertension: Plan: Stable on amlodipine, olmesartan, and IV diuretics while admitted (7) Lymphedema: Plan: Stable . Chronic. Leg elevation and SCDs while hospitalized (8) Type 2 diabetes mellitus with peripheral neuropathy: Plan: ADA diet. Lantus replaces detemir while hospitalized. Sliding scale coverage as needed (9) Hypothyroidism, postablative: Plan: Continue levothyroxine replacement therapy (10) Dyslipidemia: Plan: Continue statin (11) Urinary tract infection: Plan: Ruled out. Urine culture is negative. Rocephin has been discontinued. Plan Anticipate eventual discharge back to home. OT and PT assessments requested Admission and Anticipated Discharge Date Admission Date: November 27, 2022 Subjective Alert and oriented. She says she had a bad night last night with chest pain. No acute EKG changes. Good diuresis with intravenous Bumex. The effusions seen on admission chest x-ray are small and do not appear to need thoracentesis. Potassium supplementation underway. Urine culture is negative. Rocephin has been discontinued. Left renal cyst seen on CT scan and ultrasound will need continued outpatient monitoring. OT and PT assessments requested. Review of Systems Review of Systems: Constitutional-no fever or chills ENT-no blurred vision, no double vision, no epistaxis, no sore throat Respiratory-dyspnea on exertion . No cough, no wheezing, no hemoptysis Cardiac-no palpitations, no chest pain, no syncope GI-no nausea, vomiting, diarrhea, melena, hematochezia -no urinary retention, no urinary incontinence, no dysuria, no hematuria Musculoskeletal-no joint pain, no muscle tenderness Skin-no bruising, no rashes, no pruritus GUdysuria. No hematuria Neuro-no isolated weakness, no paresthesia, no weakness Psych-no depression, no anxiety Physical Exam Physical Exam: General-alert and oriented x3, no fevers, no chills HEENT-head atraumatic and normocephalic, pupils equal and reactive to light, extraocular muscles intact Neck-no lymphadenopathy or thyromegaly, trachea midline Chest-bibasilar inspiratory rales with dullness at both bases. No wheezing. No rhonchi Cardiac-regular rate and rhythm, normal S1 and S2 Abdomen-normal bowel sounds, nontender, no hepatosplenomegaly Extremities-chronic appearing edema involving both legs below the knees. Suspected chronic venous insufficiency Neuro-cranial nerves II through XII intact, motor and sensory function within normal limits, strength symmetrical , no focal deficits Psych-normal affect, normal mood Results & Data Results & Data ([facility]) Vital Signs (Past 12 Hours) Vital Signs Temp Pulse Pulse Resp BP BP Pulse Ox 11/28/22 11:42 36.8 C 83 20 173/70 H 94 11/28/22 10:00 11/28/22 07:32 78 11/28/22 07:18 36.8 C 80 20 163/67 H 96 11/28/22 03:49 36.6 C 75 16 161/73 H 97 11/28/22 04:13 80 20 97 11/28/22 03:05 O2 Del Method O2 Flow Rate 11/28/22 11:42 Room Air 11/28/22 10:00 Room Air, Nasal Cannula 2 11/28/22 07:32 11/28/22 07:18 Nasal Cannula 2 11/28/22 03:49 Nasal Cannula 2 11/28/22 04:13 Nasal Cannula 2 11/28/22 03:05 Nasal Cannula 2 Laboratory Results 11/28/22 07:28 11/28/22 07:28 PG Care Time/CCT Total # of Minutes Spent Total Time Spent with Patient: Total time spent is greater than 50% in coordination of care (as documented) at patient's floor/unit and/or counseling patient: Coding Level of Care Code 56783 SUB INP/OBS CARE 3/50MIN Diagnoses Pleural effusion J90 Chest pain R07.9 (HFpEF) heart failure with preserved ejection fraction I50.30 Acute and chronic respiratory failure with hypoxia J96.21 Renal cyst, left N28.1 Hypertension I10 Hypertension type: unspecified Lymphedema I89.0 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
[2022-11-28] MEDS: POTASSIUM CHLORIDE PWD 20 MEQ PACK PO SCH ×2 (13:28→22:08)
[2022-11-28] MEDS: OLMESARTAN MEDOXOMIL 40 MG TAB PO SCH (22:09)
[2022-11-29 05:50] LABS: Hematocrit (blood only) 34.8 % (37.0-47.0); Hemoglobin 11.1 g/dl (12.0-16.0); Mean Corpuscular Hgb Conc 31.9 g/dL (32.0-36.0); Mean Corpuscular Volume 84.7 fL (80.0-100.0); Platelet Count 273 K/uL (130-400); RDW Coefficient of Variation 14.4 % (11.5-14.5); RDW Standard Deviation 44.4 fL (36.4-46.3); Red Blood Count 4.11 M/uL (4.20-5.40); White Blood Count 7.35 K/ul (4.8-10.8)
[2022-11-29] MEDS: LEVOTHYROXINE SODIUM 137 MCG TABLET PO SCH (05:56)
[2022-11-29 06:08] LABS: BUN Creatinine Ratio 27.5 (10-20); Calcium 8.5 mg/dl (8.5-10.1); Creatinine Clr Calc Pharmacy 63.4 ml/min; Est GFR (Non-African American) 62.2 ml/min; Potassium 3.5 mmol/L (3.5-5.1)
[2022-11-29] MEDS: ACETAMINOPHEN 1,000 MG/100 ML VIAL IV PRN ×2 (07:42→16:38)
[2022-11-29] MEDS: INSULIN ASPART PER UNIT SC SCH ×4 (09:28→20:46)
[2022-11-29] MEDS: BUMETANIDE 1 MG in SYRINGE 0 ML IV SCH ×2 (09:28→20:47)
[2022-11-29] MEDS: POTASSIUM CHLORIDE PWD 20 MEQ PACK PO SCH ×2 (09:29→20:46)
[2022-11-29] MEDS: amLODIPine BESYLATE 5 MG TAB PO SCH (09:29)
[2022-11-29] MEDS: LIDOCAINE 5% 1 PATCH TD SCH (09:30)
[2022-11-29] MEDS: FLUTICASONE/VILANTEROL 100/25MCG 14 PUFFS/INHALER INH SCH (09:30)
[2022-11-29] MEDS: LANTUS PER UNIT CHARGE SQ SCH ×2 (09:31→20:46)
--- NOTE | 2022-11-29 13:55 | Hospitalist Progress Note ---
Date of Service November 29, 2022 Assessment & Plan (1) Pleural effusion: Plan: Bilateral pleural effusions appear to be related to congestive heart failure. They should resolve with treatment of CHF. Serial chest x-rays until resolved. No indication for thoracentesis at this time (2) Chest pain: Plan: No evidence of acute coronary syndrome. Telemetry. Supportive care. Admission chest CT was negative for PE. Her pain is reproducible to palpation . Appears to be noncardiac . Repeat EKG again today, November 29, shows no acute changes. Stat troponin today is also normal (3) (HFpEF) heart failure with preserved ejection fraction: Plan: Acute on chronic. Continue Bumex diuresis. Monitor intake and output. Serial chest x-ray . Improving (4) Acute and chronic respiratory failure with hypoxia: Plan: She does not appear to have an acute exacerbation. This appears to be stable. Treat underlying CHF. O2 as needed to maintain saturation greater than 90% (5) Renal cyst, left: Plan: Incidental finding on CT scan and also evaluated by ultrasound. No current symptoms. No intervention necessary at this time . This warrants continued outpatient follow-up however (6) Hypertension: Plan: Stable on amlodipine, olmesartan, and IV diuretics while admitted (7) Lymphedema: Plan: Stable . Chronic. Leg elevation and SCDs while hospitalized (8) Type 2 diabetes mellitus with peripheral neuropathy: Plan: ADA diet. Lantus replaces detemir while hospitalized. Sliding scale coverage as needed (9) Hypothyroidism, postablative: Plan: Continue levothyroxine replacement therapy (10) Dyslipidemia: Plan: Continue statin (11) Urinary tract infection: Plan: Ruled out. Urine culture is negative. Rocephin has been discontinued. Plan Anticipate eventual discharge back to home. OT and PT assessments requested and pending Admission and Anticipated Discharge Date Admission Date: November 27, 2022 Subjective Alert and oriented. No acute distress. She again again had chest discomfort earlier this morning. EKG was done and appears without acute changes and stat troponin is negative. She has continued good brisk diuresis with intravenous Bumex. Potassium improving to 3.5 with oral replacement. We will repeat chest x-ray tomorrow. OT and PT assessments pending. Rocephin has been discontinued because the urine cultures are negative Review of Systems Review of Systems: Constitutional-no fever or chills ENT-no blurred vision, no double vision, no epistaxis, no sore throat Respiratory-dyspnea on exertion . No cough, no wheezing, no hemoptysis Cardiac-no palpitations,, no syncope. She does complain of recurrent chest pain GI-no nausea, vomiting, diarrhea, melena, hematochezia -no urinary retention, no urinary incontinence, no dysuria, no hematuria Musculoskeletal-no joint pain, no muscle tenderness Skin-no bruising, no rashes, no pruritus GUdysuria. No hematuria Neuro-no isolated weakness, no paresthesia, no weakness Psych-no depression, no anxiety Physical Exam Physical Exam: General-alert and oriented x3, no fevers, no chills HEENT-head atraumatic and normocephalic, pupils equal and reactive to light, extraocular muscles intact Neck-no lymphadenopathy or thyromegaly, trachea midline Chest-bibasilar inspiratory rales with dullness at both bases. No wheezing. No rhonchi Cardiac-regular rate and rhythm, normal S1 and S2 Abdomen-normal bowel sounds, nontender, no hepatosplenomegaly Extremities-chronic appearing edema involving both legs below the knees. Suspected chronic venous insufficiency Neuro-cranial nerves II through XII intact, motor and sensory function within normal limits, strength symmetrical , no focal deficits Psych-normal affect, normal mood Results & Data Results & Data ([facility]) Vital Signs (Past 12 Hours) Vital Signs Temp Pulse Pulse Resp BP Pulse Ox O2 Del Method 11/29/22 08:00 Nasal Cannula 11/29/22 12:38 85 18 175/97 H 96 Nasal Cannula 11/29/22 11:40 36.7 C 78 20 176/85 H 9 L Nasal Cannula 11/29/22 08:00 82 11/29/22 07:48 36.9 C 82 32 H 187/81 H 93 Nasal Cannula 11/29/22 03:52 36.8 C 80 20 182/78 H 92 Nasal Cannula O2 Flow Rate 11/29/22 08:00 2 11/29/22 12:38 2 11/29/22 11:40 3 11/29/22 08:00 11/29/22 07:48 2 11/29/22 03:52 2 Laboratory Results 11/29/22 05:05 11/29/22 05:05 PG Care Time/CCT Total # of Minutes Spent Total Time Spent with Patient: Total time spent is greater than 50% in coordination of care (as documented) at patient's floor/unit and/or counseling patient: Coding Level of Care Code 56145 SUB INP/OBS CARE 3/50MIN Diagnoses Pleural effusion J90 Chest pain R07.9 (HFpEF) heart failure with preserved ejection fraction I50.30 Acute and chronic respiratory failure with hypoxia J96.21 Renal cyst, left N28.1 Hypertension I10 Hypertension type: unspecified Lymphedema I89.0 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
[2022-11-29] MEDS: ENOXAPARIN INJ 40 MG/0.4 ML SYR SQ SCH (19:10)
[2022-11-29] MEDS: OLMESARTAN MEDOXOMIL 40 MG TAB PO SCH (20:47)
--- NOTE | 2022-11-29 22:37 | Electrocardiogram Report ---
Test Reason : Blood Pressure : / mmHG Vent. Rate : 081 BPM Atrial Rate : 081 BPM P-R Int : 166 ms QRS Dur : 088 ms QT Int : 376 ms P-R-T Axes : 067 -02 078 degrees QTc Int : 436 ms Normal sinus rhythm Anteroseptal infarct (cited on or before 28-NOV-2022) Abnormal ECG When compared with ECG of 26-NOV-2022 11:35, No significant change was found Confirmed by Fady Mendez ([id number] on 11/29/2022 10:37:20 PM Referred By: REFERRED SELF Confirmed By:Fady Mendez
[2022-11-30] MEDS ORDERED: ACETAMINOPHEN 1,000 MG/100 ML VIAL IV PRN (00:53)
--- NOTE | 2022-11-30 06:20 | Electrocardiogram Report ---
Test Reason : Blood Pressure : / mmHG Vent. Rate : 083 BPM Atrial Rate : 083 BPM P-R Int : 162 ms QRS Dur : 090 ms QT Int : 390 ms P-R-T Axes : 067 057 046 degrees QTc Int : 458 ms Normal sinus rhythm Septal infarct (cited on or before 28-NOV-2022) Abnormal ECG When compared with ECG of 28-NOV-2022 10:47, Questionable change in QRS axis Confirmed by Fady Mendez ([id number] on 11/30/2022 6:20:10 AM Referred By: REFERRED SELF Confirmed By:Fady Mendez
[2022-11-30] MEDS: LEVOTHYROXINE SODIUM 137 MCG TABLET PO SCH (06:39)
[2022-11-30] MEDS ORDERED: ACETAMINOPHEN 500 MG TAB PO PRN (06:56)
--- NOTE | 2022-11-30 07:22 | Hospitalist Progress Note ---
Date of Service November 30, 2022 Assessment & Plan (1) Acute and chronic respiratory failure with hypoxia: Plan: Secondary to #2, #3, and #4 (taking shallow breaths due to pain). Supplemental O2 as needed to maintain saturation greater than 90%; was on 4LNC this AM -> 2LNC through the day. CXR with persistent left basilar consolidation and trace bilateral pleural effusions. CT Chest earlier this admit suggested small amount of loculated fluid in left major fissure which could account for consolidation on CXR today as well. Continue IV diuresis, and have added on Abx Unasyn and azithromycin for possible CAP given LLL consolidation. Incentive spirometer to encourage deep breaths. (2) Acute on chronic heart failure with preserved ejection fraction (HFpEF): Plan: History of diastolic Grade 1 dysfunction with normal LVEF 55-60% on Echo in 2021. CXR with bilateral pleural effusions, evidence of fluid overload causing patient's hypoxic respiratory failure. She also notes significant orthopnea causing her to sleep in her lift chair at night. Continue Bumex 1MG IV q12h with monitoring of fluid status. Will consult Heart Failure Clinic as well as patient's quality of life and CHF treatments are directly adverse to one another (wheelchair bound so cannot get up to bathroom as much as typical diuresis requires, but above all wants to be able to breathe comfortably), and patient has had several evaluations with similar diuretic treatments in hospitalizations in the past. (3) Pleural effusion: Plan: Bilateral pleural effusions appear to be related to congestive heart failure, though did have small loculated effusion in left major fissure, which is near her area of pain and could certainly be a cause of pleuritic pain. Anticipate resolution in pleural effusions and therefore pain with treatment of CHF. No indication for thoracentesis at this time. (4) Chest pain: Plan: No evidence of acute coronary syndrome. Admission chest CT was negative for PE. Her pain is worse with palpation and with deep breaths, suggesting pleuritic nature (see above). Repeat EKG and troponin overnight November 29 without no acute changes. Lidocaine patches and Tylenol for pain (patient does not want to take anything stronger for fear of medication reaction). (5) Renal cyst, left: Plan: 2.4 cyst of left kidney with equivocal area of mural nodularity. 6 month follow- up renal ultrasound recommended. (6) Hypertension: Plan: Stable on amlodipine, olmesartan, and IV diuretics while admitted . (7) Lymphedema: Plan: Stable . Chronic. Leg elevation and SCDs while hospitalized. (8) Type 2 diabetes mellitus with peripheral neuropathy: Plan: ADA diet. Lantus replaces detemir while hospitalized. Sliding scale coverage as needed. (9) Hypothyroidism, postablative: Plan: Continue levothyroxine replacement therapy. (10) Dyslipidemia: Plan: Continue statin. (11) Urinary tract infection: Plan: Ruled out. Urine culture is negative. Rocephin has been discontinued. Plan Anticipate eventual discharge back to home. OT and PT assessments requested to eval Admission and Anticipated Discharge Date Admission Date: November 27, 2022 Subjective Overnight patient with continued pleuritic-like chest pain, worse with deep breaths, worse overnight than the day before. She states it feels like her "left side is being hugged too hard by a bear". Troponin and EKG overnight without evidence of ACS. Has history of allergies/intolerances to many medications and so is very nervous about starting new medications while in hospital. Denies other symptoms including no abdominal pain, nausea. Review of Systems Review of Systems: All systems reviewed & are unremarkable except as noted in Subjective Physical Exam Constitutional: WD/WN, vitals as above Respiratory: shallow breathing due to pain, decreased breath sounds over left middle/lower lung field compared to right side Saturating 95% on 2LNC Chest (Breasts): Additional Comments: RRR no murmur, bilateral lymphedema noted Gastrointestinal (Abdomen): normal bowel sounds, soft, nontender, no hepatosplenomegaly Musculoskeletal: tender to palpation over left lateral chest wall Skin: no rashes, warm and dry Psychiatric: A+Ox3, euthymic affect Results & Data Results & Data ([facility]) Vital Signs (Past 12 Hours) Vital Signs Temp Pulse Pulse Resp BP Pulse Ox O2 Del Method 11/29/22 22:00 86 11/29/22 23:25 37.1 C 84 20 173/77 H 92 Nasal Cannula 11/29/22 20:00 Nasal Cannula 11/29/22 19:50 36.9 C 20 169/77 H 92 Nasal Cannula O2 Flow Rate 11/29/22 22:00 11/29/22 23:25 2 11/29/22 20:00 2 11/29/22 19:50 2 PG Care Time/CCT Total # of Minutes Spent Total Time Spent with Patient: Total time spent is greater than 50% in coordination of care (as documented) at patient's floor/unit and/or counseling patient: Coding Level of Care Code 31700 SUB INP/OBS CARE 3/50MIN Diagnoses Acute and chronic respiratory failure with hypoxia J96.21 Acute on chronic heart failure with preserved ejection fraction (HFpEF) I50.33 Pleural effusion J90 Chest pain R07.9 Renal cyst, left N28.1 Hypertension I10 Hypertension type: unspecified Lymphedema I89.0 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
[2022-11-30] MEDS: LANTUS PER UNIT CHARGE SQ SCH ×2 (09:10→22:19)
[2022-11-30] MEDS: INSULIN ASPART PER UNIT SC SCH ×4 (09:11→22:19)
[2022-11-30] MEDS: LIDOCAINE 5% 1 PATCH TD SCH (09:11)
[2022-11-30] MEDS: FLUTICASONE/VILANTEROL 100/25MCG 14 PUFFS/INHALER INH SCH (09:14)
[2022-11-30] MEDS: BUMETANIDE 1 MG in SYRINGE 0 ML IV SCH ×2 (09:14→21:19)
[2022-11-30] MEDS: amLODIPine BESYLATE 5 MG TAB PO SCH (09:14)
--- NOTE | 2022-11-30 09:31 | XRay Report ---
XR chest 1V portable HISTORY: 76 years-old Female CHF acute shortness breath with congestive heart failure COMPARISON: Chest radiograph and CTA chest 11/26/2022 TECHNIQUE: AP view of the chest FINDINGS: Cardiac silhouette is enlarged. Pulmonary vascular congestion with reticular interstitial coarsening. Trace right and small left pleural effusions. Mild left basilar consolidation. No pneumothorax. Dege nerative changes of the shoulders and spine. IMPRESSION: 1. Cardiomegaly with unchanged pulmonary edema. 2. Trace right and small left pleural effusions. 3. Persistent left basilar consolidation favoring atelectasis. ACT 112: Negative or not required by law. The above report was generated using voice recognition software. It may contain grammatical, syntax o r spelling errors. Electronically signed by: Dashawn Ramírez M.D. 11/30/2022 9:30 AM
[2022-11-30] MEDS ORDERED: AZITHROMYCIN 250 MG TAB PO ONE (11:30)
[2022-11-30] MEDS: POTASSIUM CHLORIDE PWD 20 MEQ PACK PO SCH ×2 (12:19→21:19)
[2022-11-30] MEDS: ACETAMINOPHEN 500 MG TAB PO SCH ×2 (12:31→21:20)
[2022-11-30] MEDS: AMPICILLIN/SULBACTAM SOD 3,000 MG in 0.9 % SODIUM CHLORIDE 100 ML IV SCH ×3 (12:31→22:20)
[2022-11-30] MEDS ORDERED: SOD PHOSPHATE/SOD BIPHOSPHATE ENEMA 132 ML BTL PR PRN (18:02)
[2022-11-30] MEDS ORDERED: SOD PHOSPHATE/SOD BIPHOSPHATE ENEMA 132 ML BTL PR ONE (18:16)
[2022-11-30] MEDS: OLMESARTAN MEDOXOMIL 40 MG TAB PO SCH (21:19)
[2022-11-30] MEDS: ENOXAPARIN INJ 40 MG/0.4 ML SYR SQ SCH (21:20)
[2022-12-01] MEDS ORDERED: ACETAMINOPHEN 500 MG TAB PO PRN (04:48)
[2022-12-01] MEDS: AMPICILLIN/SULBACTAM SOD 3,000 MG in 0.9 % SODIUM CHLORIDE 100 ML IV SCH ×4 (05:14→20:16)
[2022-12-01] MEDS: LEVOTHYROXINE SODIUM 137 MCG TABLET PO SCH (05:14)
[2022-12-01] MEDS: ACETAMINOPHEN 500 MG TAB PO SCH ×2 (05:17→17:32)
[2022-12-01 07:26] LABS: Basophils # (auto) 0.05 K/uL (0-0.2); Basophils % (auto) 0.7 %; Eosinophils # (auto) 0.42 K/uL (0-0.50); Eosinophils % (auto) 6.3 %; Hematocrit (blood only) 35.7 % (37.0-47.0); Hemoglobin 11.2 g/dl (12.0-16.0); Immature Granulocytes # (auto) 0.02 K/uL (0.01-0.20); Immature Granulocytes % (auto) 0.3 %; Lymphocytes # (auto) 1.78 K/uL (1.2-3.4); Lymphocytes % (auto) 26.6 %; Mean Corpuscular Hemoglobin 26.7 pg (25.0-34.0); Mean Corpuscular Hgb Conc 31.4 g/dL (32.0-36.0); Mean Corpuscular Volume 85.2 fL (80.0-100.0); Mean Platelet Volume 9.5 fL (9.4-12.4); Monocytes # (auto) 0.46 K/uL (0.11-0.59); Monocytes % (auto) 6.9 %; Neutrophils # (auto) 3.96 K/uL (1.40-6.50); Neutrophils % (auto) 59.2 %; Platelet Count 258 K/uL (130-400); RDW Coefficient of Variation 14.6 % (11.5-14.5); RDW Standard Deviation 45.2 fL (36.4-46.3); Red Blood Count 4.19 M/uL (4.20-5.40); White Blood Count 6.69 K/ul (4.8-10.8)
[2022-12-01 07:41] LABS: BUN Creatinine Ratio 29.7 (10-20); Calcium 8.4 mg/dl (8.5-10.1); Creatinine Clr Calc Pharmacy 49.7 ml/min; Est GFR (African American) 52.6 ml/min; Est GFR (Non-African American) 45.4 ml/min; Potassium 3.9 mmol/L (3.5-5.1)
--- NOTE | 2022-12-01 08:10 | Hospitalist Progress Note ---
Date of Service December 01, 2022 Assessment & Plan (1) Acute and chronic respiratory failure with hypoxia: Plan: Secondary to #2, #3, and #4 (taking shallow breaths due to pain). Supplemental O2 as needed to maintain saturation greater than 90%; was on 4LNC earlier this admission -> 2LNC today. CXR 11/30 with persistent left basilar consolidation and trace bilateral pleural effusions. CT Chest earlier this admit suggested small amount of loculated fluid in left major fissure which could account for consolidation on CXR as well. Continue IV diuresis (Net negative 1L yesterday), and continue Abx Unasyn and azithromycin for possible CAP given LLL consolidation. Incentive spirometer to encourage deep breaths.] Repeat CXR in AM. (2) Acute on chronic heart failure with preserved ejection fraction (HFpEF): Plan: History of diastolic Grade 1 dysfunction with normal LVEF 55-60% on Echo in 2021. CXR with bilateral pleural effusions, evidence of fluid overload causing patient's hypoxic respiratory failure. She also notes significant orthopnea causing her to sleep in her lift chair at night. Continue Bumex 1MG IV q12h with monitoring of fluid status. Alma Dasilva with CHF clinic consulted and appreciate recommendations; patient euvolemic at this point and can d/c diuretics. (3) Pleural effusion: Plan: Bilateral pleural effusions in some respect may be due to fluid overload, though did have small loculated effusion in left major fissure, which is near her area of pain and could certainly be a cause of pleuritic pain. Symptoms improving with Tylenol, Abx, incentive spirometry. No indication for thoracentesis at this time. Consider Pulm consult if symptoms not continuing to improve or CXR worsening in AM. (4) Chest pain: Plan: No evidence of acute coronary syndrome. Admission chest CT was negative for PE. Her pain is worse with palpation and with deep breaths, suggesting pleuritic nature (see above). Repeat EKG and troponin overnight November 29 without no acute changes. Lidocaine patches and Tylenol for pain (patient does not want to take anything stronger for fear of medication reaction). (5) Renal cyst, left: Plan: 2.4 cyst of left kidney with equivocal area of mural nodularity. 6 month follow- up renal ultrasound recommended. (6) Hypertension: Plan: Stable on amlodipine, olmesartan, and IV diuretics while admitted . (7) Lymphedema: Plan: Stable . Chronic. Leg elevation and SCDs while hospitalized. (8) Type 2 diabetes mellitus with peripheral neuropathy: Plan: ADA diet. Lantus replaces detemir while hospitalized. Sliding scale coverage as needed. (9) Hypothyroidism, postablative: Plan: Continue levothyroxine replacement therapy. (10) Dyslipidemia: Plan: Continue statin. (11) Urinary tract infection: Plan: Ruled out. Urine culture is negative. Rocephin has been discontinued. Plan Anticipate eventual discharge back to home. OT and PT assessments requested to eval Admission and Anticipated Discharge Date Admission Date: November 27, 2022 Subjective Still with lots of left sided chest wall pain overnight, worse with deep breaths, however perhaps a "tad better" than yesterday. Discussed she was trying to avoid the tylenol and would like a warm compress. Pain is worse with deep breaths so she is taking shallower ones than her normal. No other complaints today. Review of Systems Review of Systems: All systems reviewed & are unremarkable except as noted in Subjective Physical Exam Constitutional: WD/WN, vitals as above Respiratory: shallow breathing due to pain, decreased breath sounds over left middle/lower lung field compared to right side Saturating 96% on 2LNC Chest (Breasts): Additional Comments: RRR no murmur, bilateral lymphedema noted Gastrointestinal (Abdomen): normal bowel sounds, soft, nontender, no hepatosplenomegaly Musculoskeletal: tender to palpation over left lateral chest wall Skin: no rashes, warm and dry Psychiatric: A+Ox3, euthymic affect Results & Data Results & Data ([facility]) Vital Signs (Past 12 Hours) Vital Signs Temp Pulse Pulse Resp BP BP Pulse Ox 12/01/22 07:33 68 12/01/22 07:24 36.4 C L 74 16 162/75 H 95 11/30/22 23:17 37.0 C 83 20 145/73 H 92 11/30/22 22:11 85 O2 Del Method O2 Flow Rate 12/01/22 07:33 12/01/22 07:24 Nasal Cannula 2 11/30/22 23:17 Nasal Cannula 2 11/30/22 22:11 PG Care Time/CCT Total # of Minutes Spent Total Time Spent with Patient: Total time spent is greater than 50% in coordination of care (as documented) at patient's floor/unit and/or counseling patient: Coding Level of Care Code 68441 SUB INP/OBS CARE MIN Diagnoses Acute and chronic respiratory failure with hypoxia J96.21 Acute on chronic heart failure with preserved ejection fraction (HFpEF) I50.33 Pleural effusion J90 Chest pain R07.9 Renal cyst, left N28.1 Hypertension I10 Hypertension type: unspecified Lymphedema I89.0 Type 2 diabetes mellitus with peripheral neuropathy E11.42 Hypothyroidism, postablative E89.0 Dyslipidemia E78.5 Urinary tract infection N39.0 (6) Hypertension Hypertension type: unspecified Qualified Code(s): I10 - Essential (primary) hypertension
[2022-12-01] MEDS: LANTUS PER UNIT CHARGE SQ SCH ×2 (08:23→20:14)
[2022-12-01] MEDS: INSULIN ASPART PER UNIT SC SCH ×4 (08:24→20:14)
[2022-12-01] MEDS: amLODIPine BESYLATE 5 MG TAB PO SCH (08:25)
[2022-12-01] MEDS: BUMETANIDE 1 MG in SYRINGE 0 ML IV SCH (08:25)
[2022-12-01] MEDS: LIDOCAINE 5% 1 PATCH TD SCH (08:25)
[2022-12-01] MEDS: POTASSIUM CHLORIDE PWD 20 MEQ PACK PO SCH ×2 (08:25→20:15)
[2022-12-01] MEDS: AZITHROMYCIN 250 MG TAB PO SCH (08:26)
[2022-12-01] MEDS: FLUTICASONE/VILANTEROL 100/25MCG 14 PUFFS/INHALER INH SCH (08:26)
--- NOTE | 2022-12-01 09:50 | Heart Failure Consultation ---
Date of Consultation December 01, 2022 Assessment & Plan (1) Pleural effusion: (2) Lymphedema: (3) Hypoxia: (4) Ambulatory dysfunction: (5) (HFpEF) heart failure with preserved ejection fraction: (6) COPD (chronic obstructive pulmonary disease): Plan HFpEF: NYHA Class II-III symptoms. Presented with progressive dyspnea and pleuritic chest pain over the past 2-3 weeks. Patient has had several similar episodes in the past. Currently being treated with diuretics and antibiotics. CXR with pulmonary edema, trace right and small left pleural effusions, left basilar consolidation. BNP < 100 consistently. Troponin negative. EKG unchanged. COPD noted on recent PFTs. She has not been evaluated by outpatient pulmonology yet. In the past, suspected patient's edema and dyspnea are non-cardiac and likely does not truly have heart failure now that other etiologies have been farrukh ntified. She has self discontinued her diuretics at home several months ago. She feels it makes no difference in her symptoms one way or another and significantly effects her quality of life with her mobility issues. With BUN increasing, suspect she is near euvolemic. Would hold IV diuretics and attempt to maintain a net neutral balance at this point. Would consider a daily PO diuretic on discharge if she's willing. She is unable to safely obtain weights at home. She also has difficulty with transportation to appointments. Lower extremity edema: Venous insufficiency studies done. Continue lymphedema therapy- she was having some in home therapy with [facility] but is unable to continue due to out of pocket expense. She is having good results with compression therapy. Continue compression. Recommend more frequent elevation. Amlodipine may be contributing factor. She remains hypertensive will continue current dose but would benefit from attempting to wean in the future. Dyspnea: Patient continues to have intermittent dyspnea and at times associated pleuritic chest pain. She has evidence of loculated fluid, left basilar consolidation and possible pneumonitis on CT. Currently on antibiotics. She is now requiring supplemental oxygen intermittently at home. Currently on 2L here. She does not seem to be systemically volume overloaded. In the past, even with euvolemic status she continues to have dyspnea requiring O2. She has a history of asthma and has a rescue inhaler but rarely uses it. PFTs consistent with COPD. Will likely need outpatient pulmonary eval/follow up. Hypertension: Chronically elevated. Optimize volume status. Continue current medical therapy. Would try to wean off Amlodipine and consider other agents if she can. PCP has been managing. Goals of care/social barriers: Patient with several recent falls. She's been having more difficulty at home, difficulty with transportation, difficulty with ADLs. She has chronic ambulatory dysfunction but does manage to live independently at home- she has not been taking her diuretics as recommended in order to avoid frequent bathroom use. She's been having more difficulties in recent months- hip fracture, loss of father, lack of local family support, wrist injury, medication discrepancies, frequent ED visits. Her goal is to remain independent in her own home. We discussed assisted living or downsizing to a condo in the past- she is not interested. She feels that she would need more assistance and does not feel she would be able to get what she needs in a facility with the current staffing shortages. She is a full code. She has also had concerns with inconsistent PCP follow up. She often misses appointments due to hospitalizations. Will ask nurse navigator to assist with post discharge follow up. Disposition: Follow up with the heart failure program within 7 days of discharge- will schedule once there is a tentative DC date. Would recommend close outpatient follow up with PCP- may need CM/nurse navigator to coordinate. Call with any problems, questions, or change in clinical status. Patient understood and agrees with the plan. History of Present Illness Attending Physician: Heydi Martin, History of Present Illness This is a 76 yo F with PMHx of chronic respiratory failure, lymphedema, HTN, DM type II, hypothyroidism, remote papillary thyroid cancer s/p resection, craniotomy for CSF leak in ~2009 where she was hospitalized in [facility] and in a coma for 4-5 days. Afterwards was not able to walk again so is primarily wheelchair bound but is able to transfer independently. Recent cardiac studies: 1. 10/30/20 Echo: Normal LV systolic function, EF 55-60%. No RWMA. Mild TR. 2. 02/18/22 Echo: LV systolic function normal. EF 55-60%. No RWMA. Borderline LVH. Mild MR. 3. 07/31/22 PFTs: Severe obstructive defect without bronchodilator response. DLCO severely reduced. Consistent with COPD. 4. 09/03/22 Echo: LV function normal. EF 55-60%. No RWMA. RV normal size/function. Moderate MAC. Mild MR. IVC moderately dilated. She presented on 11/26/22 with progressive shortness of breath and pleuritic chest pain. She was hypertensive on admission. CXR with pulmonary vascular congestion and small pleural effusions. CT negative for PE but with loculated fluid on the left. Patient has been admitted with similar complaints a few times per year. Chest pain is intermittent, pleuritic, and along the left side of her lower rib cage. BNP 86. Troponin normal. She was treated with Bumex IV and ceftriaxone. This morning patient is resting comfortably in her chair. Her pain has been intermittent, she is not currently having symptoms. She feels her breathing is slightly improved but still not at her baseline. She is on 2 L of oxygen. She reports her lower extremity edema has been well controlled, even prior to admission. Her edema looks significantly improved from her previous baseline today. She self discontinued her diuretics a few months ago because she felt it made no difference if she was taking it or not. It significantly effects her quality of life as she has difficulty ambulating and making frequent bathroom trips. She has had a good response to IV Bumex but reports less urine output today and BUN is rising. She's net negative 4.5 L for the stay but it has dropped off since yesterday. She denies palpitations, cough, or lightheadedness. Allergies Allergy/AdvReac Type Severity Reaction Status Date / Time aspirin Allergy Severe HIVES; Verified 11/12/22 09:17 DIFFICULTY BREATHING colchicine Allergy Severe Difficulty Verified 11/12/22 09:17 Breathing Benzodiazepines Allergy Mild Unknown Verified 11/12/22 09:17 doxycycline Allergy Mild Unknown Verified 11/12/22 09:17 aspartame Allergy Unknown Unknown Verified 11/12/22 09:17 diltiazem Allergy Unknown UNKNOWN Verified 11/12/22 09:17 REACTION melon Allergy Unknown Unknown Verified 11/12/22 09:17 nifedipine Allergy Unknown UNKNOWN Verified 11/12/22 09:17 REACTION simvastatin Allergy Unknown UNKNOWN Verified 11/12/22 09:17 REACTION PER PT sucralose Allergy Unknown Unknown Verified 11/27/22 11:24 vancomycin Allergy Unknown UNKNOWN Verified 11/12/22 09:17 REACTION Iodinated Contrast Media AdvReac Intermediate Rash Verified 11/12/22 09:17 Home Medications Medication Instructions Recorded Confirmed Type blood sugar diagnostic (OneTouch #100 ea 12/05/20 11/26/22 Rx Verio test strips) lancets 33 gauge (OneTouch Delica #100 ea 01/03/21 11/26/22 History Lancets) pen needle, diabetic 32 gauge x #50 ea 01/03/21 11/26/22 History 1/4" (BD Ultra-Fine Micro Pen Needle) Bed Side Commode #1 ea 08/28/21 11/26/22 Rx amlodipine 5 mg tablet 5 mg PO HS 02/17/22 11/26/22 History olmesartan 40 mg tablet 40 mg PO QDL 02/17/22 11/26/22 History albuterol sulfate 90 mcg/actuation 2 puff inhalation Q6H PRN 06/30/22 11/26/22 Rx aerosol inhaler Shortness Of Breath Or Wheezing #18 grams levothyroxine 137 mcg tablet 137 mcg PO DAILYBB 07/07/22 11/26/22 History blood-glucose meter (OneTouch #1 ea 07/09/22 11/26/22 Rx Verio Meter) potassium chloride 20 mEq oral 20 meq PO DAILY #30 ea 07/14/22 11/26/22 Rx packet albuterol sulfate 0.63 mg/3 mL 0.63 mg (3 mL) inhalation QID PRN 07/20/22 11/26/22 Rx solution for nebulization shortness of breath or wheezing #90 mL bumetanide 1 mg tablet 1 mg PO DAILY #30 tabs 08/21/22 11/26/22 Rx metformin 500 mg tablet 500 mg PO BID #180 tabs 08/21/22 11/26/22 Rx doxycycline hyclate 50 mg tablet See Rx Instructions PO .COMPLEX #3 08/28/22 11/26/22 Rx tabs Spacer for Inhaler #1 ea 09/04/22 11/26/22 Rx budesonide-formoterol HFA 80 1 inh inhalation BID #10.2 grams 09/04/22 11/26/22 Rx mcg-4.5 mcg/actuation aerosol inhaler (Symbicort) insulin detemir U-100 100 unit/mL 30 unit (0.3 mL) subcut DAILY #15 10/11/22 11/26/22 Rx (3 mL) subcutaneous pen (Levemir mL FlexTouch U-100 Insulin) bromfenac 0.09 % eye drops 1 drp ophthalmic (eye) DAILY 16 10/30/22 11/26/22 Rx days #1.7 mL inhaler,assist devices,access #1 ea 11/05/22 11/26/22 Rx Patient History Medical History (Updated 12/01/22 @ 12:13 by Alma Dasilva PA-C) Acute diastolic (congestive) heart failure Ambulatory dysfunction Asthma Cardiac arrest Chest pain Chronic edema Chronic respiratory failure with hypoxia, on home O2 therapy Closed right hip fracture Contusion of elbow Diabetes mellitus with albuminuria Diastolic heart failure Dyslipidemia Elevated serum globulin level Financial difficulties Gait abnormality History of ectopic History of seizures as a child HTN (hypertension) Hx of pleurisy Hx of thyroid cancer Hypokalemia Hypomagnesemia Hypothyroidism, postablative Injury of right leg Lower extremity edema Mild intermittent asthma Multiple drug allergies Obstructive pattern present on pulmonary function testing Pleurisy without effusion Pleuritic chest pain Right knee DJD Shakiness Type 2 diabetes mellitus Type 2 diabetes mellitus with peripheral neuropathy Wheelchair bound Surgical History History of D&C Hx of brain surgery 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) Hx of section Hx of thyroidectomy Family History Father Stroke Mother Dementia Diabetes Sister Macular degeneration Brother Macular degeneration Other TIA (transient ischemic attack) Denies family history of Ovarian cancer Prostate cancer Myocardial infarction Breast cancer Colorectal cancer Social History Smoking Status: Never smoker Second Hand Exposure: No; Hx Alcohol Use: No Hx Substance Use: No Preferred Language: Yoruba Communication Ability: Effective Visual Impairment: No Limitations Hearing Ability: Normal Public Relations Account Supervisor Required: No Beliefs That Will Affect Care: None marital status: / Current Living Situation: Alone current occupational status: retired 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 HEENT: Head is atraumatic and normocephalic. EOMs intact. Sclera anicteric. Face is symmetric. No perioral cyanosis. Mucous membranes moist. Neck: Supple, - JVD - HJR Pulmonary: Normal respiratory effort, clear to auscultation. Cardiac: Regular rate and rhythm. Normal S1 and S2, no gallops, no rubs, no murmurs Extremities: 2+ radial pulses bilaterally. 2+ posterior tibialis pulses bilaterally. 2+ bilateral pedal edema, 2+ pretibial edema to the knees. No cyanosis or clubbing. Abdomen: Normal bowel sounds, soft, non-tender, no abdominal mass palpated Skin: Normal skin color, turgor, and pigmentation, no rash, no skin lesions Neurological: Patient is awake, alert, and oriented. Pleasant and cooperative. Answers questions appropriately. Speech is clear. Results & Data ([facility]) Vital Signs (Past 12 Hours) Vital Signs Temp Pulse Pulse Resp BP BP Pulse Ox 12/01/22 07:33 68 12/01/22 07:24 97.5 F L 74 16 162/75 H 95 11/30/22 23:17 98.6 F 83 20 145/73 H 92 11/30/22 22:11 85 O2 Del Method O2 Flow Rate 12/01/22 07:33 12/01/22 07:24 Nasal Cannula 2 11/30/22 23:17 Nasal Cannula 2 11/30/22 22:11 Coding Level of Care Code 31930 INT INP/OBS CARE 2/55MIN Diagnoses Pleural effusion J90 Lymphedema I89.0 Hypoxia R09.02 Ambulatory dysfunction R26.2 (HFpEF) heart failure with preserved ejection fraction I50.30 COPD (chronic obstructive pulmonary disease) J44.9
[2022-12-01] MEDS: OLMESARTAN MEDOXOMIL 40 MG TAB PO SCH (20:14)
[2022-12-01] MEDS: ENOXAPARIN INJ 40 MG/0.4 ML SYR SQ SCH ×2 (20:16→20:23)
[2022-12-02] MEDS: ACETAMINOPHEN 500 MG TAB PO SCH ×3 (00:13→17:25)
[2022-12-02] MEDS: AMPICILLIN/SULBACTAM SOD 3,000 MG in 0.9 % SODIUM CHLORIDE 100 ML IV SCH ×4 (04:21→21:23)
[2022-12-02] MEDS: LEVOTHYROXINE SODIUM 137 MCG TABLET PO SCH (06:03)
[2022-12-02] MEDS: INSULIN ASPART PER UNIT SC SCH ×4 (08:24→20:26)
[2022-12-02] MEDS: LANTUS PER UNIT CHARGE SQ SCH ×2 (08:24→20:26)
[2022-12-02] MEDS: POTASSIUM CHLORIDE PWD 20 MEQ PACK PO SCH ×2 (08:50→20:32)
[2022-12-02] MEDS: amLODIPine BESYLATE 5 MG TAB PO SCH (08:51)
[2022-12-02] MEDS: LIDOCAINE 5% 1 PATCH TD SCH (08:51)
[2022-12-02] MEDS: FLUTICASONE/VILANTEROL 100/25MCG 14 PUFFS/INHALER INH SCH (08:52)
[2022-12-02] MEDS: AZITHROMYCIN 250 MG TAB PO SCH (08:52)
[2022-12-02] MEDS ORDERED: BUMETANIDE 1 MG TAB PO SCH (09:00)
--- NOTE | 2022-12-02 11:19 | XRay Report ---
XR chest 1V portable CLINICAL HISTORY: Pleuritic chest pain. COMPARISON STUDY: Chest CT November 26, 2022 and chest radiograph November 30, 2022. FINDINGS: There is no pneumothorax. Cardiomediastinal silhouette is stable. Small left pleural effusi on is similar to prior exam. There is persistent left basilar opacity. Pulmonary edema has slightly i mproved. IMPRESSION: 1. Persistent small left pleural effusion with left basilar opacity and volume loss which could refle ct pneumonia or atelectasis. 2. Slight improvement in pulmonary edema. ACT 112: Negative or not required by law. Electronically signed by: Vicente Shrestha M.D. 12/02/2022 11:18 AM
--- NOTE | 2022-12-02 11:34 | Hospitalist Progress Note ---
Date of Service December 02, 2022 Assessment & Plan (1) Acute and chronic respiratory failure with hypoxia: Plan: Secondary to #2, #3, and #4 (taking shallow breaths due to pain though improved compared to yesterday). Supplemental O2 as needed to maintain saturation greater than 90%; was on 4LNC earlier this admission -> 0-2LNC today. CXR 11/30 with persistent left basilar consolidation and trace bilateral pleural effusions. CT Chest earlier this admit suggested small amount of loculated fluid in left major fissure which could account for consolidation on CXR as well. Pulmonology consulted and appreciate recommendations: no indication for further Abx or steroids, as patient is improving albeit slowly. Follow up with Pulm outpatient with repeat CXR in 2-3 weeks. Case personally discussed with Dr. Small. Continue incentive spirometer to encourage deep breaths. (2) Acute on chronic heart failure with preserved ejection fraction (HFpEF): Plan: History of diastolic Grade 1 dysfunction with normal LVEF 55-60% on Echo in 2021. CXR with bilateral pleural effusions, evidence of fluid overload causing patient's hypoxic respiratory failure. She also notes significant orthopnea causing her to sleep in her lift chair at night. Continue Bumex 1MG PO daily home dosing with low sodium diet. Alma Dasilva with CHF clinic consulted and appreciate recommendations; patient euvolemic at this point and can d/c extra diuretics. (3) Pleural effusion: Plan: Bilateral pleural effusions in some respect may be due to fluid overload, though did have small loculated effusion in left major fissure, which is near her area of pain and could certainly be a cause of pleuritic pain. Symptoms improving with Tylenol, incentive spirometry. No indication for thoracentesis at this time. Pulm consulted as above. (4) Chest pain: Plan: No evidence of acute coronary syndrome. Admission chest CT was negative for PE. Her pain is worse with palpation and with deep breaths, suggesting pleuritic nature (see above). Repeat EKG and troponin overnight November 29 without no acute changes. Lidocaine patches and Tylenol for pain (patient does not want to take anything stronger for fear of medication reaction). (5) Renal cyst, left: Plan: 2.4 cyst of left kidney with equivocal area of mural nodularity. 6 month follow- up renal ultrasound recommended. (6) Hypertension: Plan: Stable on amlodipine, olmesartan, and diuretics while admitted. (7) Lymphedema: Plan: Stable. Chronic. Leg elevation and SCDs while hospitalized. (8) Type 2 diabetes mellitus with peripheral neuropathy: Plan: ADA diet. Lantus replaces detemir while hospitalized. Sliding scale coverage as needed. (9) Hypothyroidism, postablative: Plan: Continue levothyroxine replacement therapy. (10) Dyslipidemia: Plan: Continue statin. Plan Anticipate eventual discharge back to home. OT and PT assessments requested to eval, patient resistant to therapy due to pain in previous days will discuss in AM. Admission and Anticipated Discharge Date Admission Date: November 27, 2022 Subjective Reports mild improvement in pleuritic left chest pain today compared to yesterday. Still difficult to take deep breaths and sleep with the pain. No other complaints including no abdominal pain, nausea, lightheadedness. Has been practicing breathing with her incentive spirometer. Review of Systems Review of Systems: All systems reviewed & are unremarkable except as noted in Subjective Physical Exam Constitutional: WD/WN, vitals as above Respiratory: decreased breath sounds over left middle/lower lung field compared to right side, otherwise CTA Saturating 96% on 2LNC Chest (Breasts): Additional Comments: RRR no murmur, bilateral lymphedema noted Gastrointestinal (Abdomen): normal bowel sounds, soft, nontender, no hepatosplenomegaly Musculoskeletal: tender to palpation over left lateral chest wall Skin: no rashes, warm and dry Psychiatric: A+Ox3, euthymic affect Results & Data Results & Data ([facility]) Vital Signs (Past 12 Hours) Vital Signs Temp Pulse Pulse Resp BP Pulse Ox O2 Del Method 12/02/22 11:17 37.0 C 82 18 163/77 H 95 Nasal Cannula 12/02/22 07:45 Nasal Cannula 12/02/22 09:00 12/02/22 07:52 36.6 C 78 20 182/81 H 95 Nasal Cannula 12/02/22 06:00 70 12/02/22 03:00 36.9 C 75 18 156/75 H 97 Nasal Cannula O2 Del Method O2 Flow Rate O2 Flow Rate 12/02/22 11:17 2 12/02/22 07:45 2 12/02/22 09:00 Nasal Cannula 2 12/02/22 07:52 2 12/02/22 06:00 12/02/22 03:00 2 PG Care Time/CCT Total # of Minutes Spent Total Time Spent with Patient: Total time spent is greater than 50% in coordination of care (as documented) at patient's floor/unit and/or counseling patient: Coding Level of Care Code 78947 SUB INP/OBS CARE 3/50MIN Diagnoses Acute and chronic respiratory failure with hypoxia J96.21 Acute on chronic heart failure with preserved ejection fraction (HFpEF) I50.33 Pleural effusion J90 Chest pain R07.9 Renal cyst, left N28.1 Hypertension I10 Hypertension type: unspecified Lymphedema I89.0 Type 2 diabetes mellitus with peripheral neuropathy E11.42 Hypothyroidism, postablative E89.0 Dyslipidemia E78.5 (6) Hypertension Hypertension type: unspecified Qualified Code(s): I10 - Essential (primary) hypertension
--- NOTE | 2022-12-02 14:21 | Pulmonary Consultation ---
Date of Consultation December 02, 2022 Assessment & Plan (1) COPD (chronic obstructive pulmonary disease): (2) Acute on chronic heart failure with preserved ejection fraction (HFpEF): (3) Pleural effusion: (4) Chest pain: Plan Impression: 76-year-old female with history of diastolic heart failure and obstructive lung disease admitted with shortness of breath and a small pleural effusion on CT scan. She is clinically better and is now no longer requiring oxygen. Her chest pains resolved. I performed a limited thoracic ultrasound at bedside. There is a small left-sided effusion noted with some compressive atelectasis. Recommendations: 1. Pleural effusion: The patient does have a small pleural effusion. Her symptoms are significantly improved. I discussed with her consideration for thoracentesis however she is not in favor of pursuing any invasive procedures at this point time and thinks that as she is feeling better she would like to continue with medical management. Continue diuresis and optimization of the patient's underlying medical condition is recommended. Recommended a follow up CXR with PCM in 2-3 weeks. 2. Chest pain and shortness of breath: May be secondary to the patient's pleural effusion. I advised her that without sampling the fluid, were unable to determine the exact etiology or offer specific treatments. Again the patient states that she is feeling better and is not interested in pursuing additional invasive procedures. 3. Obstructive lung disease: Last PFTs demonstrated a likely mixed pattern of obstruction and restriction. She is not bronchospastic currently. There is no indication for steroids or antibiotics or additional inhalers at this point time. The patient appears to be approaching her baseline. She does not wish to pursue any additional pulmonary evaluation currently and is improving with minimal residual pulmonary symptoms, pulmonary will sign off at this point time. Feel free to contact us with questions or concerns. History of Present Illness Attending Physician: Heydi Martin, DO History of Present Illness Asked by hospitalist to assist in evaluation management this patient with pleural effusion, chest pain, and cough. History is obtained from discussion with the patient as well as review of the electronic medical record. The patient is a 76-year-old non-smoking female who states she was initially diagnosed with pleurisy over 50 years ago in the setting after the of her child. Those symptoms resolved spontaneously and she never underwent any invasive procedures at that time. She did well up until the of her a few years ago and now reports that a few times a year she will develop episodes of shortness of breath associated with some chest tightness. She also has chronic lower extremity edema. The patient is managed in the diastolic heart failure clinic although she denies a history of heart failure. She states that a few times a year she developed this sensation of tightness in her chest associated with some episodic shortness of breath. The symptoms typically resolve spontaneously. She has never had pulmonary evaluation previously has never undergone any prior pulmonary procedures. She denies any significant coughing or sputum production. No wheezing. She is not particularly ambulatory due to chronic hip issue and states that she is in a wheelchair but is able to transfer from bed to wheelchair independently and continues to live independently in a large home. She denies fevers chills night sweats or other constitutional symptoms. She does not have any history of trauma. Allergies Allergy/AdvReac Type Severity Reaction Status Date / Time aspirin Allergy Severe HIVES; Verified 11/12/22 09:17 DIFFICULTY BREATHING colchicine Allergy Severe Difficulty Verified 11/12/22 09:17 Breathing Benzodiazepines Allergy Mild Unknown Verified 11/12/22 09:17 doxycycline Allergy Mild Unknown Verified 11/12/22 09:17 aspartame Allergy Unknown Unknown Verified 11/12/22 09:17 diltiazem Allergy Unknown UNKNOWN Verified 11/12/22 09:17 REACTION melon Allergy Unknown Unknown Verified 11/12/22 09:17 nifedipine Allergy Unknown UNKNOWN Verified 11/12/22 09:17 REACTION simvastatin Allergy Unknown UNKNOWN Verified 11/12/22 09:17 REACTION PER PT sucralose Allergy Unknown Unknown Verified 11/27/22 11:24 vancomycin Allergy Unknown UNKNOWN Verified 11/12/22 09:17 REACTION Iodinated Contrast Media AdvReac Intermediate Rash Verified 11/12/22 09:17 Home Medications Medication Instructions Recorded Confirmed Type blood sugar diagnostic (OneTouch #100 ea 12/05/20 11/26/22 Rx Verio test strips) lancets 33 gauge (OneTouch Delica #100 ea 01/03/21 11/26/22 History Lancets) pen needle, diabetic 32 gauge x #50 ea 01/03/21 11/26/22 History 1/4" (BD Ultra-Fine Micro Pen Needle) Bed Side Commode #1 ea 08/28/21 11/26/22 Rx amlodipine 5 mg tablet 5 mg PO HS 02/17/22 11/26/22 History olmesartan 40 mg tablet 40 mg PO QDL 02/17/22 11/26/22 History albuterol sulfate 90 mcg/actuation 2 puff inhalation Q6H PRN 06/30/22 11/26/22 Rx aerosol inhaler Shortness Of Breath Or Wheezing #18 grams levothyroxine 137 mcg tablet 137 mcg PO DAILYBB 07/07/22 11/26/22 History blood-glucose meter (OneTouch #1 ea 07/09/22 11/26/22 Rx Verio Meter) potassium chloride 20 mEq oral 20 meq PO DAILY #30 ea 07/14/22 11/26/22 Rx packet albuterol sulfate 0.63 mg/3 mL 0.63 mg (3 mL) inhalation QID PRN 07/20/22 11/26/22 Rx solution for nebulization shortness of breath or wheezing #90 mL bumetanide 1 mg tablet 1 mg PO DAILY #30 tabs 08/21/22 11/26/22 Rx metformin 500 mg tablet 500 mg PO BID #180 tabs 08/21/22 11/26/22 Rx doxycycline hyclate 50 mg tablet See Rx Instructions PO .COMPLEX #3 08/28/22 11/26/22 Rx tabs Spacer for Inhaler #1 ea 09/04/22 11/26/22 Rx budesonide-formoterol HFA 80 1 inh inhalation BID #10.2 grams 09/04/22 11/26/22 Rx mcg-4.5 mcg/actuation aerosol inhaler (Symbicort) insulin detemir U-100 100 unit/mL 30 unit (0.3 mL) subcut DAILY #15 10/11/22 11/26/22 Rx (3 mL) subcutaneous pen (Levemir mL FlexTouch U-100 Insulin) bromfenac 0.09 % eye drops 1 drp ophthalmic (eye) DAILY 16 10/30/22 11/26/22 Rx days #1.7 mL inhaler,assist devices,access #1 ea 11/05/22 11/26/22 Rx Patient History Medical History (Updated 12/01/22 @ 12:13 by Alma Dasilva PA-C) Acute diastolic (congestive) heart failure Ambulatory dysfunction Asthma Cardiac arrest Chest pain Chronic edema Chronic respiratory failure with hypoxia, on home O2 therapy Closed right hip fracture Contusion of elbow Diabetes mellitus with albuminuria Diastolic heart failure Dyslipidemia Elevated serum globulin level Financial difficulties Gait abnormality History of ectopic History of seizures as a child HTN (hypertension) Hx of pleurisy Hx of thyroid cancer Hypokalemia Hypomagnesemia Hypothyroidism, postablative Injury of right leg Lower extremity edema Mild intermittent asthma Multiple drug allergies Obstructive pattern present on pulmonary function testing Pleurisy without effusion Pleuritic chest pain Right knee DJD Shakiness Type 2 diabetes mellitus Type 2 diabetes mellitus with peripheral neuropathy Wheelchair bound Surgical History History of D&C Hx of brain surgery 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) Hx of section Hx of thyroidectomy Family History Father Stroke Mother Dementia Diabetes Sister Macular degeneration Brother Macular degeneration Other TIA (transient ischemic attack) Denies family history of Ovarian cancer Prostate cancer Myocardial infarction Breast cancer Colorectal cancer Social History Smoking Status: Never smoker Second Hand Exposure: No; Hx Alcohol Use: No Hx Substance Use: No Preferred Language: Indonesian Communication Ability: Effective Visual Impairment: No Limitations Hearing Ability: Normal 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 Beliefs That Will Affect Care: None marital status: / Current Living Situation: Alone current occupational status: retired 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 Other Information That Helps Us Care for You: No Feels Safe at Home: Yes Safety Concerns: Feels Safe At This Time Childhood Exposure to Second-Hand Smoke: No Dental Care, Regularly: Yes Physical Activity Frequency: Does not Exercise Seatbelt Use: always Sunscreen Use: No Assistive Devices: Glasses, Oxygen - Continuous, Scooter/Electric Scooter, Walker and Wheelchair Review of Systems Review of Systems: All systems reviewed & are unremarkable except as noted in Subjective Physical Exam Constitutional: WD/WN, vitals as above Respiratory: decreased breath sounds over left middle/lower lung field compared to right side Saturating 96% on room air Chest (Breasts): Additional Comments: RRR no murmur, bilateral lymphedema noted Gastrointestinal (Abdomen): normal bowel sounds, soft, nontender, no hepatosplenomegaly Skin: no rashes, warm and dry Psychiatric: A+Ox3, euthymic affect Results & Data Results & Data ([facility]) Vital Signs (Past 12 Hours) Vital Signs Temp Pulse Pulse Resp BP Pulse Ox O2 Del Method 12/02/22 11:17 37.0 C 82 18 163/77 H 95 Nasal Cannula 12/02/22 07:45 Nasal Cannula 12/02/22 09:00 12/02/22 07:52 36.6 C 78 20 182/81 H 95 Nasal Cannula 12/02/22 06:00 70 12/02/22 03:00 36.9 C 75 18 156/75 H 97 Nasal Cannula O2 Del Method O2 Flow Rate O2 Flow Rate 12/02/22 11:17 2 12/02/22 07:45 2 12/02/22 09:00 Nasal Cannula 2 12/02/22 07:52 2 12/02/22 06:00 12/02/22 03:00 2 Critical Care Results & Data Vital Signs (Past 12 Hours) Vital Signs Temp Pulse Pulse Resp BP Pulse Ox O2 Del Method 12/02/22 11:17 37.0 C 82 18 163/77 H 95 Nasal Cannula 12/02/22 07:45 Nasal Cannula 12/02/22 09:00 12/02/22 07:52 36.6 C 78 20 182/81 H 95 Nasal Cannula 12/02/22 06:00 70 12/02/22 03:00 36.9 C 75 18 156/75 H 97 Nasal Cannula O2 Del Method O2 Flow Rate O2 Flow Rate 12/02/22 11:17 2 12/02/22 07:45 2 12/02/22 09:00 Nasal Cannula 2 12/02/22 07:52 2 12/02/22 06:00 12/02/22 03:00 2 Lab & Micro Results (Past 24 Hours) No Data to Display No Data to Display No Data to Display Microbiology 11/26/22 17:39 Aerobic Blood Culture - Final Blood No growth in Aerobic bottle after 5 days. Anaerobic Blood Culture - Final No growth in Anaerobic bottle after 5 days. 11/26/22 17:39 Aerobic Blood Culture - Final Blood No growth in Aerobic bottle after 5 days. Anaerobic Blood Culture - Final No growth in Anaerobic bottle after 5 days. Diagnostic Findings (Past 24 Hours) Chest X-Ray 12/02/22 07:00 XR chest 1V portable CLINICAL HISTORY: Pleuritic chest pain. COMPARISON STUDY: Chest CT November 26, 2022 and chest radiograph November 30, 2022. FINDINGS: There is no pneumothorax. Cardiomediastinal silhouette is stable. Small left pleural effusion is similar to prior exam. There is persistent left basilar opacity. Pulmonary edema has slightly improved. IMPRESSION: 1. Persistent small left pleural effusion with left basilar opacity and volume loss which could reflect pneumonia or atelectasis. 2. Slight improvement in pulmonary edema. ACT 112: Negative or not required by law. Electronically signed by: Vicente Shrestha M.D. 12/02/2022 11:[address] of the chest from 11/25/2022 was independently reviewed. There is a small left-sided effusion noted. There is some fluid that tracks in the fissure. Some nodularity to the pleural surface. PFTs performed July 2022 were limited due to the patient's inability to enter into the plethysmography box. Spirometry showed severe proportional reduction in both FEV1 and FVC. FEV1 was 0.96 L or 37% predicted with an FVC of 1.44 L or 42% predicted. Ratio was reduced at 66. No change after administration of inhaled bronchodilators. Lung volumes were unable to be assessed. Diffusion capacity was 44% predicted not adjusted for hemoglobin. I & O Totals 24 Hours 12/01/22 12/02/22 12/03/22 06:59 06:59 06:59 Intake Total 1899 / 1899 1772 / 1772 468 / 468 Output Total 1000 / 1000 1000 / 1000 Balance 899 / 899 772 / 772 468 / 468 Cumulative 11/26/22 11:02 thru 12/02/22 13:53 Intake Total 8544 Output Total 21032 Balance -3441 RT Ventilator Mngmt (Last Documented) Ventilator Ordered Settings Respiratory Rate 18 12/02/22 11:17 Ventilator - PT Measurements Respiratory Rate 18 PG Care Time/CCT Total # of Minutes Spent Total Time Spent with Patient: Total time spent is greater than 50% in coordination of care (as documented) at patient's floor/unit and/or counseling patient: Coding Level of Care Code 37473 INT INP/OBS CARE 2/55MIN Diagnoses COPD (chronic obstructive pulmonary disease) J44.9 Acute on chronic heart failure with preserved ejection fraction (HFpEF) I50.33 Pleural effusion J90 Chest pain R07.9
[2022-12-02] MEDS: ENOXAPARIN INJ 40 MG/0.4 ML SYR SQ SCH (20:32)
[2022-12-02] MEDS: OLMESARTAN MEDOXOMIL 40 MG TAB PO SCH (20:32)
[2022-12-03] MEDS: ACETAMINOPHEN 500 MG TAB PO SCH ×2 (02:23→10:08)
[2022-12-03] MEDS: LEVOTHYROXINE SODIUM 137 MCG TABLET PO SCH (05:58)
[2022-12-03] MEDS: amLODIPine BESYLATE 5 MG TAB PO SCH (08:18)
[2022-12-03] MEDS: FLUTICASONE/VILANTEROL 100/25MCG 14 PUFFS/INHALER INH SCH (08:18)
[2022-12-03] MEDS: POTASSIUM CHLORIDE PWD 20 MEQ PACK PO SCH (08:19)
[2022-12-03] MEDS: LIDOCAINE 5% 1 PATCH TD SCH (08:19)
[2022-12-03] MEDS: INSULIN ASPART PER UNIT SC SCH ×2 (08:20→12:26)
[2022-12-03] MEDS: LANTUS PER UNIT CHARGE SQ SCH (08:20)
[2022-12-03] MEDS ORDERED: BUMETANIDE 1 MG TAB PO SCH (09:00)
--- NOTE | 2022-12-03 13:20 | Discharge Summary ---
Discharge Summary Date of Service December 03, 2022 Admission HPI Per Admitting Provider Carli Logan is a 76yo female with PMHx significant for HFpEF (EF 55- 60% in 02/2022), asthma, chronic hypoxic respiratory failure (2L), T2DM (A1c 9.3 on 07/14/2022), HTN, lymphedema, hypothyroidism, and ambulatory dysfunction who presented to the [facility] ED on 11/26/22 with a chief complaint of 2-3 weeks of progressive left pleuritic and SOB. In the ED the patient was found to be afebrile, hypertensive at 217/110, and stable on her baseline 2L NC. Labs were remarkable for a CBC with WBC WNL, stable Hgb at 11.5, stable platelets, stable renal function with a cr of 0.81, stable electrolytes, initial high sensitivity trop of 9.2, UA showing a coudy appearance, 2+ bacteria, but nitrite and leukocyte esterase negative. Chest xray was read as 1. Cardiomegaly with pulmonary vascular congestion. 2. Left greater than right pleural effusions with mild left basilar consolidation.. CTPE and CT of the abdomen/pelvis with IV contrast was read as 1. Streak and motion degraded examinations. 2. There is no evidence of pulmonary embolus in the main, lobar, or segmental pulmonary arteries. 3. Cardiomegaly with evidence of congestive failure. 4. Left larger than right pleural effusions. Loculated fluid is seen along left major fissure. 5. Left basilar consolidation could represent atelectasis and/or pneumonia. Clinical correlation will be required. 6. Patchy bilateral ground glass opacities likely represent mild pulmonary edema. Correlate clinically for evidence of a superimposed infectious/inflammatory pneumonitis. Radiographic follow-up of these findings is recommended to document resolution. 7. Bladder distention. 8. No acute infectious or inflammatory findings are identified in the abdomen or pelvis. 9. A 2.7 cm cystic structure in the interpolar left kidney likely represents a cyst but is new from 2008. This is difficult to characterize due to surrounding contrast. A nonemergent renal ultrasound is recommended for further assessment. 10. Mildly enlarged external iliac chain and pelvic side wall lymph nodes are indeterminate but similar to 2008. 11. Additional findings as above. Prior to admission the patient was given one dose of 2g ceftriaxone, 1g IV Tylenol, 10 mg IV dexamethasone, 12.5 mg IV Benadryl, and 1 mg IV bumex. At the time of the exam the patient was resting in bed in no acute distress. She states that over the past 3 weeks she has experienced progressive SOB and lower left chest pain. She describes the left chest pain as intermittent, dull, and exacerbated with deep inspiration. The pain has not radiated over the past 3 weeks. She states that she normally wears 2L of O2 via NC as needed, typically when she is active. Over the past week she has noticed increased SOB and she noticed that her SpO2 was falling into the low 80's without her oxygen. She is still using her home breathing treatments. when confirming her medications she states that she was taking off of the Bumex after her last heart failure visit on 10/06/22. This was due to the patient's persistent LE swelling being attributed to lymphedema and not experiencing significant improvement in her SOB while using the bumex. She notes that she had one episode of chocking on water yesterday which did make her vomit the water back up, she does not think that she aspirated the water after she vomited. The patient states that she has had multiple issues with pleurisy in the past and has never been told why. The patient was also taken off of metformin when she was started on insulin. She denies recent fevers, chills, cough, abdominal pain, nausea, dysuria, hematuria, and recent falls. We discussed code status, the patient wishes to be a Full Code. At the start of my exam the patient was saturating at 97% on 2L NC. I turned her O2 off at the start of my exam and she remained stable between 95-97% on RA. Please refer to Dr. Chacko's attestation for any changes to the treatment plan Admission Exam Per Admitting Provider General:In no acute distress, stated age, chronically ill-appearing but non- toxic appearing HEENT:Normocephalic, atraumatic, no scleral icterus, pupils around round, symmetrical, and reactive to light, moist mucus membranes, trachea midline, no thyromegaly Chest/Pulm:No respiratory distress, symmetrical chest expansion, patient with with decreased breath sounds in the BL lower lung brooke with L>R, BL expiratory wheezing in the upper lung brooke Cardiac: Patient with reproducible chest pain to palpation over the lower left ribs,RRR, no murmurs noted Abdomen:Negative for ascites and bruising, normoactive bowel sounds, soft, non-tender to palpation throughout Musculoskeletal:Patient with limited mobility of the RLE due to known/chronic right hip fracture, intact ROM in all other extremities Extremities:Patient with significant BL lymphedema, distal pulses are difficult to palpate due to edema but patient's lower extremities are warm and cap refill is less than 3 seconds Skin:Warm, dry, no rashes , lesions, or scars noted Neuro:Alert and oriented to person, place, month, year, and president, no focal defects, no tremors noted Psych:No acute distress, calm and cooperative during the exam Principal Dx & Hospital Course #1 = Principal Diagnosis (1) Acute and chronic respiratory failure with hypoxia: Secondary to #2, #3, and #4 (taking shallow breaths due to pain though improved compared to yesterday). Supplemental O2 as needed to maintain saturation greater than 90%; was on 4LNC earlier this admission -> 0-2LNC on day of discharge. CXR 11/30 with persistent left basilar consolidation and trace bilateral pleural effusions. CT Chest earlier this admit suggested small amount of loculated fluid in left major fissure which could account for consolidation on CXR as well. Pulmonology consulted and appreciate recommendations: no indication for further Abx or steroids, as patient is improving albeit slowly. Follow up with Pulm outpatient with repeat CXR in 2-3 weeks. Case discussed with Dr. Small. Continue incentive spirometer to encourage deep breaths. Tylenol for pain. (2) Acute on chronic heart failure with preserved ejection fraction (HFpEF): History of diastolic Grade 1 dysfunction with normal LVEF 55-60% on Echo in 2021. CXRs with bilateral pleural effusions, evidence of fluid overload causing patient's hypoxic respiratory failure. Continue Bumex 1MG PO daily home dosing with low sodium diet. Alma Dasilva with CHF clinic consulted and appreciate recommendations; can resume home dosing diuretics but no need for increased dosing. (3) Pleural effusion: Bilateral pleural effusions in some respect may be due to fluid overload, though did have small loculated effusion in left major fissure, which is near her area of pain and could certainly be a cause of pleuritic pain. Symptoms improving with Tylenol, incentive spirometry. No indication for thoracentesis at this time. Pulm consulted as above. No evidence of infected effusion. (4) Chest pain: No evidence of acute coronary syndrome. Admission chest CT was negative for PE. Her pain is worse with palpation and with deep breaths, suggesting pleuritic nature (see above). Repeat EKG and troponin overnight November 29 without no acute changes. Lidocaine patches and Tylenol for pain (patient does not want to take anything stronger for fear of medication reaction). (5) Renal cyst, left: 2.4 cyst of left kidney with equivocal area of mural nodularity. 6 month follow- up renal ultrasound recommended. (6) Hypertension: Stable on amlodipine, olmesartan, and diuretics while admitted. (7) Lymphedema: Stable. Chronic. Lymphedema therapy prescription sent. (8) Type 2 diabetes mellitus with peripheral neuropathy: ADA diet. Resume home medications. (9) Hypothyroidism, postablative: Continue levothyroxine replacement therapy. (10) Dyslipidemia: Continue statin. Discharge Exam Constitutional WD/WN, vitals as above Respiratory saturating 96% on 2LNC, lungs CTA bilaterally, difficulty with deep breaths due to pain Incentive spirometry up to ~700 Cardiovascular RRR no murmurs Gastrointestinal (Abdomen) normal bowel sounds, soft, nontender, no hepatosplenomegaly Psychiatric A+Ox3, euthymic affect Lymphatic bilateral LE lymphedema Updated Medication List Medication Instructions Recorded Confirmed Type blood sugar diagnostic ([place] #100 ea 12/05/20 11/26/22 Rx Verio test strips) lancets 33 gauge ([place] Delica #100 ea 01/03/21 11/26/22 History Lancets) pen needle, diabetic 32 gauge x #50 ea 01/03/21 11/26/22 History 1/4" (BD Ultra-Fine Micro Pen Needle) Bed Side Commode #1 ea 08/28/21 11/26/22 Rx amlodipine 5 mg tablet 5 mg PO HS 02/17/22 11/26/22 History olmesartan 40 mg tablet 40 mg PO QDL 02/17/22 11/26/22 History albuterol sulfate 90 mcg/actuation 2 puff inhalation Q6H PRN 06/30/22 11/26/22 Rx aerosol inhaler Shortness Of Breath Or Wheezing #18 grams levothyroxine 137 mcg tablet 137 mcg PO DAILYBB 07/07/22 11/26/22 History blood-glucose meter (OneTouch #1 ea 07/09/22 11/26/22 Rx Verio Meter) albuterol sulfate 0.63 mg/3 mL 0.63 mg (3 mL) inhalation QID PRN 07/20/22 11/26/22 Rx solution for nebulization shortness of breath or wheezing #90 mL metformin 500 mg tablet 500 mg PO BID #180 tabs 08/21/22 11/26/22 Rx doxycycline hyclate 50 mg tablet See Rx Instructions PO .COMPLEX #3 08/28/22 11/26/22 Rx tabs Spacer for Inhaler #1 ea 09/04/22 11/26/22 Rx budesonide-formoterol HFA 80 1 inh inhalation BID #10.2 grams 09/04/22 11/26/22 Rx mcg-4.5 mcg/actuation aerosol inhaler (Symbicort) insulin detemir U-100 100 unit/mL 30 unit (0.3 mL) subcut DAILY #15 10/11/22 11/26/22 Rx (3 mL) subcutaneous pen (Levemir mL FlexTouch U-100 Insulin) bromfenac 0.09 % eye drops 1 drp ophthalmic (eye) DAILY 16 10/30/22 11/26/22 Rx days #1.7 mL inhaler,assist devices,access #1 ea 11/05/22 11/26/22 Rx acetaminophen 500 mg tablet 1,000 mg PO Q8H #30 tabs 12/03/22 Rx (Tylenol Extra Strength) bumetanide 1 mg tablet 1 mg PO DAILY #30 tabs 12/03/22 Rx potassium chloride 20 mEq oral 20 meq PO DAILY #30 ea 12/03/22 Rx packet Hospital Stay Data Consultations 11/26/22 17:02 ED Decision to Admit Stat 11/30/22 22:59 [facility] CHF Program Referral Routine 12/02/22 10:33 Consult Pulmonology Routine Diagnostic Imagining Performed 11/26/22 11:56 CT abd pelvis IV con only Stat CT angio chest PE protocol Stat 11/26/22 18:46 US Renal Bladder [US renal/blad retro comp] Routine Pending Results Patient Have Any Pending Studies at Discharge: No Discharge Instructions Given to Patient (Per Discharging Provider) You were admitted to the hospital for evaluation of chest pain. You were found to have a pleural effusion, or a collection of fluid, between the lobes of your left lung. You were given diuretics and pain medications with improvement in your symptoms. Because the effusion is what is called loculated, the lung doctor saw you to see if the fluid needed to be removed. He feels that we can try conservative treatment for now and follow up with him in a few weeks. He also recommends a chest xray in two weeks. Continue to use your oxygen, 2 liters at rest and with activity, until you are feeling better and only needing it with rest. It is extremely important that you take your diuretic at home, at least until seen by Carolee Dasilva. This is to help keep the fluid off of you, to help you breathe better. It is possible that if you do not take the water pill and you collect more fluid that you will need to come back to the hospital. Lastly, in order to take deep breaths, I recommend you continue Tylenol 1000 milligrams every 8 hours for at least the next few days, so that you aren't taking shallow breaths. You should keep using your incentive spirometer at home. You have an appointment with Dr. Wilson, one of the family doctors, to establish with a nursing home physician, on Saturday 12/09 at 11am. Please call the Pulmonology office at the number above to get the lung doctor appointment scheduled. Total Time Total Time Spent Total Time Spent (In Minutes): 45 minutes Coding Level of Care Code HOSP INP/OBS DISCH >30 MIN Diagnoses Acute and chronic respiratory failure with hypoxia J96.21 Acute on chronic heart failure with preserved ejection fraction (HFpEF) I50.33 Pleural effusion J90 Chest pain R07.9 Renal cyst, left N28.1 Hypertension I10 Hypertension type: unspecified Lymphedema I89.0 Type 2 diabetes mellitus with peripheral neuropathy E11.42 Hypothyroidism, postablative E89.0 Dyslipidemia E78.5
== END 2022-12-03 14:30 | disposition home health service (06) | DRG 291 ==
LOC: 2N 11:25 → ED 11:25 → SUATTDRO 17:33 → 2N 21:45 → SUATTDRO 11-27 09:10

== ENCOUNTER 2022-12-10 13:35 | Inpatient (IN) ==
--- NOTE | 2022-12-10 14:17 | Emergency Department Note ---
Impression & Plan Pleural effusion, Lymphedema, Hypertension, Hypoxia, Rash ED Provider Note NAME: LACI SOLITARIO AGE: 76 SEX: F : 1945 ARRIVES VIA: Ambulance INFORMANT: Patient, EMS ED PROVIDER(S): José Manuel Charlton DO CHIEF COMPLAINT: Shortness of breath HPI: The patient is a 76-year-old female who presented to the emergency department by ambulance after having severe shortness of breath at home. The patient is noted over the last 24 hours that she has had slowly worsening shortness of breath. She was discharged in our facility recently with pneumonia. She states that over the last 24 hours she noticed a small rash over her body. This was also noted by her cleaning lady. She bought some Benadryl and took a dose last night as well as this afternoon. She started having severe shortness of breath and called 911. Reportedly the patient's oxygen saturation was in the mid 80s. She states she does have a history of volume overload and CHF. She states that she has been compliant with her outpatient medications. She denies having any hemoptysis or fever. She does complain of weight gain and lower extremity swelling. ROS: See above HPI for pertinent positives & negatives. A total of 10 systems reviewed and were otherwise negative. PAST MEDICAL HISTORY: See Below PAST SURGICAL HISTORY: See Below FAMILY HISTORY: See Below SOCIAL HISTORY: See Below HOME MEDICATIONS: See Below ALLERGIES: See Below VITALS: See Below PHYSICAL EXAMINATION: GENERAL: Patient is awake alert in no acute distress patient is resting comfortably and showing no signs of anxiety EYES: The conjunctivae are clear. The pupils are round and reactive. EARS, NOSE, MOUTH AND THROAT: The nose is without any evidence of any deformity. Mucous membranes are moist. Tongue is midline. NECK: The neck is nontender and supple. RESPIRATORY: Diminished breath sounds are noted over both lung brooke. There was mild conversational dyspnea. CARDIOVASCULAR: Regular rate and rhythm noted there no murmurs rubs or gallops normal S1 normal S2. GASTROINTESTINAL: The abdomen is soft. Abdomen is nontender. MUSCULOSKELETAL/EXTREMITIES: There is no evidence of gross deformity full range of motion is noted in the hips and shoulders. SKIN: Lymphedema was noted bilaterally. Skin is warm and dry. NEUROLOGIC: Patient is awake alert and oriented x3 MEDICAL DECISION MAKING: The patient is a 76-year-old female who presented to the emergency department for an evaluation of difficulty breathing. The patient presented to the emergency department by ambulance. She was recently discharged from our facility approximately 6 days ago. She states that she started noticing a rash over the last 24 hours but also appears to be having shortness of breath. The patient has a history of lymphedema. Her history and physical exam do appear to be consistent with volume overload but chest x-ray shows a left-sided pleural effusion with congestive changes. Her BNP was negative and not consistent with volume overload. It is possible that this is more secondary to the pleural effusion. The patient was placed on supplemental oxygen with significant improvement of her symptoms. I discussed the patient's laboratory and radiographic studies with her. I also discussed her case with the on-call [facility] hospitalist. She has no fever. Her white blood cell count is normal. I do not feel at this time this is definitely consistent with pneumonia. She had a CT angiography of the chest on her recent visit. This did not appear to be consistent with pulmonary embolism. Certainly she may require further inpatient management and work-up. Triage Nursing notes reviewed. Prior medical records reviewed Vital Signs: reviewed and remarkable for hypoxia and elevated blood pressure. Differential diagnosis: Reactive airway disease, pneumonia, pneumothorax, COPD, CHF, infections, cardiac ischemia, pulmonary embolism, musculoskeletal, gastrointestinal, as well as other pathologies. ER treatment provided: See below Diagnostics interpreted by me: ECG: EKG was obtained in the emergency department. My interpretation is normal sinus rhythm at 99 bpm. There was no ectopy. Poor R wave progression was noted. There was lateral T wave abnormalities with low lateral ST segment depressions. This was compared to a tracing from November 29, 2022. ST segment abnormalities are new compared to the previous tracing. Cardiac Monitoring: An order was placed for continuous cardiac monitoring. The monitor shows a rate of 99 bpm with sinus rhythm. Laboratory studies: As stated above and show below. Imaging studies: See below. Radiographic imaging was reviewed by myself Consultation(s): I discussed this case with Dr. Chacko who is on-call for the [facility] hospitalist group. Past Med/Surg History Medical History Acute diastolic (congestive) heart failure Ambulatory dysfunction Asthma Cardiac arrest Chest pain CHF exacerbation Chronic edema Chronic respiratory failure with hypoxia, on home O2 therapy Closed right hip fracture Contusion of elbow CSF leak Diabetes mellitus with albuminuria Diastolic heart failure Dyslipidemia Elevated serum globulin level Financial difficulties Gait abnormality History of ectopic History of seizures as a child HTN (hypertension) Hx of papillary thyroid carcinoma Hx of pleurisy Hx of thyroid cancer Hypokalemia Hypomagnesemia Hypothyroidism, postablative Injury of right leg Lower extremity edema Mild intermittent asthma Multiple drug allergies Obstructive pattern present on pulmonary function testing Pleurisy without effusion Pleuritic chest pain Right knee DJD Shakiness Type 2 diabetes mellitus Type 2 diabetes mellitus with peripheral neuropathy Vitamin D deficiency Wheelchair bound Surgical History History of D&C Hx of brain surgery 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) Hx of section Hx of thyroidectomy Family History Father Stroke Mother Dementia Diabetes Sister Macular degeneration Brother Macular degeneration Other TIA (transient ischemic attack) Denies family history of Ovarian cancer Prostate cancer Myocardial infarction Breast cancer Colorectal cancer Social History Smoking Status: Never smoker Second Hand Exposure: No; Hx Alcohol Use: No Hx Substance Use: No Preferred Language: Ghanaian Communication Ability: Effective Visual Impairment: No Limitations Hearing Ability: Normal Flight Attendant Ramp Required: No Beliefs That Will Affect Care: None marital status: / Current Living Situation: Alone current occupational status: retired 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 Feels Safe at Home: Yes Childhood Exposure to Second-Hand Smoke: No Dental Care, Regularly: Yes Physical Activity Frequency: Does not Exercise Seatbelt Use: always Sunscreen Use: No Assistive Devices: Glasses, Oxygen - Continuous, Scooter/Electric Scooter, Walker and Wheelchair Allergies Allergies Allergy/AdvReac Type Severity Reaction Status Date / Time aspirin Allergy Severe HIVES; Verified 12/10/22 14:52 DIFFICULTY BREATHING colchicine Allergy Severe Difficulty Verified 12/10/22 14:52 Breathing Benzodiazepines Allergy Mild Unknown Verified 12/10/22 14:52 doxycycline Allergy Mild Unknown Verified 12/10/22 14:52 aspartame Allergy Unknown Unknown Verified 12/10/22 14:52 diltiazem Allergy Unknown UNKNOWN Verified 12/10/22 14:52 REACTION melon Allergy Unknown Unknown Verified 12/10/22 14:52 nifedipine Allergy Unknown UNKNOWN Verified 12/10/22 14:52 REACTION simvastatin Allergy Unknown UNKNOWN Verified 12/10/22 14:52 REACTION PER PT sucralose Allergy Unknown Unknown Verified 12/10/22 14:52 vancomycin Allergy Unknown UNKNOWN Verified 12/10/22 14:52 REACTION Iodinated Contrast Media AdvReac Intermediate Rash Verified 12/10/22 14:52 Home Meds Home Medications Medication Instructions Recorded Confirmed lancets 33 gauge (Dimensions IT Infrastructure SolutionsTouch Delica #100 ea 01/03/21 12/10/22 Lancets) pen needle, diabetic 32 gauge x #50 ea 01/03/21 12/10/2210/21" (BD Ultra-Fine Micro Pen Needle) amlodipine 5 mg tablet 5 mg PO HS 02/17/22 12/10/22 olmesartan 40 mg tablet 40 mg PO QDL 02/17/22 12/10/22 levothyroxine 137 mcg tablet 137 mcg PO DAILYBB 07/07/22 12/10/22 Previous Rx's Medication Instructions Recorded blood sugar diagnostic ([employer]Touch #100 ea 12/05/20 Verio test strips) Bed Side Commode #1 ea 08/28/21 albuterol sulfate 90 mcg/actuation 2 puff inhalation Q6H PRN 06/30/22 aerosol inhaler Shortness Of Breath Or Wheezing #18 grams blood-glucose meter ([employer]Touch #1 ea 07/09/22 Verio Meter) albuterol sulfate 0.63 mg/3 mL 0.63 mg (3 mL) inhalation QID PRN 07/20/22 solution for nebulization shortness of breath or wheezing #90 mL doxycycline hyclate 50 mg tablet See Rx Instructions PO .COMPLEX #3 08/28/22 tabs Spacer for Inhaler #1 ea 09/04/22 budesonide-formoterol HFA 80 1 inh inhalation BID #10.2 grams 09/04/22 mcg-4.5 mcg/actuation aerosol inhaler (Symbicort) insulin detemir U-100 100 unit/mL 30 unit (0.3 mL) subcut DAILY #15 10/11/22 (3 mL) subcutaneous pen (Levemir mL FlexTouch U-100 Insulin) bromfenac 0.09 % eye drops 1 drp ophthalmic (eye) DAILY 16 10/30/22 days #1.7 mL inhaler,assist devices,access #1 ea 11/05/22 acetaminophen 500 mg tablet 1,000 mg PO Q8H #30 tabs 12/03/22 (Tylenol Extra Strength) bumetanide 1 mg tablet 1 mg PO DAILY #30 tabs 12/03/22 potassium chloride 20 mEq oral 20 meq PO DAILY #30 ea 12/03/22 packet Results & Data (ED) Vital Signs Vital Signs - 24 hr 12/10/22 13:50 12/10/22 14:14 12/10/22 14:32 Temperature 36.9 C Temperature Source Oral Pulse Rate 102 H 99 H Pulse Rhythm Regular Pulse Strength Normal Respiratory Rate 18 Respiratory Effort / Characteristics Spontaneous Spontaneous Short of Breath SOB on Exertion Respiratory Depth Normal Respiratory Pattern Regular Blood Pressure 211/89 H Blood Pressure Mean 129 Blood Pressure Position Lying Pulse Oximetry 80 L Oxygen Delivery Method Room Air Nasal Cannula Sepsis Recent Fever Within 48 Hours No Sepsis New/Unexplained Change in Mental Status No Sepsis Action Taken by Nursing No Action Required Oxygen Flow Rate - Titration Pulse Oximetry Post Tiitration 12/10/22 14:32 Temperature Temperature Source Pulse Rate Pulse Rhythm Pulse Strength Respiratory Rate Respiratory Effort / Characteristics Respiratory Depth Respiratory Pattern Blood Pressure Blood Pressure Mean Blood Pressure Position Pulse Oximetry 80 L Oxygen Delivery Method Room Air Sepsis Recent Fever Within 48 Hours Sepsis New/Unexplained Change in Mental Status Sepsis Action Taken by Nursing Oxygen Flow Rate - Titration 4 Pulse Oximetry Post Tiitration 97 Home Medications Current Medication List: was personally reviewed by me Laboratory Data Attestation: I reviewed the patient's lab results. 12/10/22 14:10 12/10/22 14:10 Lab Results 12/10/22 12/10/22 12/10/22 Range/Units 14:10 14:10 14:10 WBC 5.09 (4.8-10.8) K/ul RBC 4.19 L (4.20-5.40) M/uL Hgb 11.4 L (12.0-16.0) g/dl Hct 35.9 L (37.0-47.0) % MCV 85.7 (80.0-100.0) fL MCH 27.2 (25.0-34.0) pg MCHC 31.8 L (32.0-36.0) g/dL RDW Std Deviation 46.1 (36.4-46.3) fL RDW Coeff of Smith 14.6 H (11.5-14.5) % Plt Count 264 (130-400) K/uL MPV 9.8 (9.4-12.4) fL Immature Gran % (Auto) 0.2 % Neut % (Auto) 76.6 % Lymph % (Auto) 12.2 % [place] % (Auto) 7.7 % Eos % (Auto) 2.9 % Baso % (Auto) 0.4 % Neut # (Auto) 3.90 (1.40-6.50) K/uL Lymph # (Auto) 0.62 L (1.2-3.4) K/uL [place] # (Auto) 0.39 (0.11-0.59) K/uL Eos # (Auto) 0.15 (0-0.50) K/uL Baso # (Auto) 0.02 (0-0.2) K/uL Immature Gran # (Auto) 0.01 (0.01-0.20) K/uL PT 10.5 (9.0-12.0) Seconds INR 1.0 (0.9-1.1) APTT 30.2 (21.0-31.0) Seconds PTT Ratio 1.1 Sodium 138 (136-145) mmol/L Potassium 3.4 L (3.5-5.1) mmol/L Chloride 98 (98-107) mmol/L Carbon Dioxide 34 H (21-32) mmol/L Anion Gap 6 (3-11) BUN 25 H (6-23) mg/dl Creatinine 0.94 (0.6-1.2) mg/dl Est Cr Clr Drug Dosing 63.4 ml/min Est GFR ( Amer) 69.3 ml/min Est GFR (Non-Af Amer) 59.8 ml/min BUN/Creatinine Ratio 26.6 H (10-20) Glucose 231 H (70-99(Fasting)) mg/dl Lactate (0.4-2.0) mmol/L Calcium 9.1 (8.5-10.1) mg/dl Magnesium 2.3 (1.7-2.4) mg/dl Total Bilirubin 0.5 (0.2-1.0) mg/dl Direct Bilirubin 0.0 (0-0.2) mg/dl AST 15 (13-39) U/L ALT 8 (7-52) U/L Alkaline Phosphatase 65 (34-104) U/L Troponin I High Sens 9.3 (0-14) pg/ml B-Natriuretic Peptide (0-100) pg/ml Total Protein 8.0 (6.0-8.3) gm/dl Albumin 3.9 (3.4-5.0) gm/dl Urine Color Urine Appearance (Clear) Urine pH (4.5-7.5) Ur Specific [place] (1.000-1.030) Urine Protein (Negative) Urine Glucose (UA) (Negative) Urine Ketones (Negative) Urine Blood (Negative) Urine Nitrite (Negative) Urine Bilirubin (Negative) Urine Urobilinogen (Negative) Ur Leukocyte Esterase (Negative) Urine WBC (Auto) (0-5) /hpf Urine RBC (Auto) (0-4) /hpf U Hyaline Cast (Auto) (0-5) /lpf U Epithel Cells (Auto) (0-5) /lpf Urine Bacteria (Auto) (Negative) 12/10/22 12/10/22 12/10/22 Range/Units 14:10 14:10 14:26 WBC (4.8-10.8) K/ul RBC (4.20-5.40) M/uL Hgb (12.0-16.0) g/dl Hct (37.0-47.0) % MCV (80.0-100.0) fL MCH (25.0-34.0) pg MCHC (32.0-36.0) g/dL RDW Std Deviation (36.4-46.3) fL RDW Coeff of Smith (11.5-14.5) % Plt Count (130-400) K/uL MPV (9.4-12.4) fL Immature Gran % (Auto) % Neut % (Auto) % Lymph % (Auto) % [place] % (Auto) % Eos % (Auto) % Baso % (Auto) % Neut # (Auto) (1.40-6.50) K/uL Lymph # (Auto) (1.2-3.4) K/uL [place] # (Auto) (0.11-0.59) K/uL Eos # (Auto) (0-0.50) K/uL Baso # (Auto) (0-0.2) K/uL Immature Gran # (Auto) (0.01-0.20) K/uL PT (9.0-12.0) Seconds INR (0.9-1.1) APTT (21.0-31.0) Seconds PTT Ratio Sodium (136-145) mmol/L Potassium (3.5-5.1) mmol/L Chloride (98-107) mmol/L Carbon Dioxide (21-32) mmol/L Anion Gap (3-11) BUN (6-23) mg/dl Creatinine (0.6-1.2) mg/dl Est Cr Clr Drug Dosing ml/min Est GFR ( Amer) ml/min Est GFR (Non-Af Amer) ml/min BUN/Creatinine Ratio (10-20) Glucose (70-99(Fasting)) mg/dl Lactate 1.0 (0.4-2.0) mmol/L Calcium (8.5-10.1) mg/dl Magnesium (1.7-2.4) mg/dl Total Bilirubin (0.2-1.0) mg/dl Direct Bilirubin (0-0.2) mg/dl AST (13-39) U/L ALT (7-52) U/L Alkaline Phosphatase (34-104) U/L Troponin I High Sens (0-14) pg/ml B-Natriuretic Peptide 73 (0-100) pg/ml Total Protein (6.0-8.3) gm/dl Albumin (3.4-5.0) gm/dl Urine Color Yellow Urine Appearance Clear (Clear) Urine pH 7.0 (4.5-7.5) Ur Specific [place] 1.014 (1.000-1.030) Urine Protein 3+ H (Negative) Urine Glucose (UA) 1+ H (Negative) Urine Ketones Trace H (Negative) Urine Blood 2+ H (Negative) Urine Nitrite Negative (Negative) Urine Bilirubin Negative (Negative) Urine Urobilinogen Negative (Negative) Ur Leukocyte Esterase Negative (Negative) Urine WBC (Auto) 1-5 (0-5) /hpf Urine RBC (Auto) 10-30 H (0-4) /hpf U Hyaline Cast (Auto) 1-5 (0-5) /lpf U Epithel Cells (Auto) 5-10 H (0-5) /lpf Urine Bacteria (Auto) Negative (Negative) Imaging Data Radiologist's Impression: Chest X-Ray 12/10/22 13:57 XR chest 1V portable CLINICAL HISTORY: Sepsis TECHNIQUE: Single frontal radiograph of the chest was obtained. Comparison: Comparison is made to chest radiograph 12/02/2022 FINDINGS: No lines and tubes are seen. Calcified aortic knob is seen. Left retrocardiac opacity has significantly improved from prior. There may be a trace left pleural effusion. No pneumothorax is seen. Degenerative changes are seen in the spine and bilateral shoulder joints. IMPRESSION: Trace left pleural effusion. Left retrocardiac opacity has significantly improved from prior. ACT 112: Negative or not required by law. Electronically signed by: Austin Ritter M.D. 12/10/2022 2:43 PM Discharge Plan Visit Data Chief Complaint: Shortness of Breath/Dyspnea Stated Complaint: SOB, RASH, COUGH ED Provider: José Manuel Charlton Discharge Problem: Pleural effusion, Lymphedema, Hypertension, Hypoxia, Rash Patient Disposition: Being Evaluated by Hospitalist Forms Stand Alone Forms: [facility] [employer] Prescriptions Prescriptions: No Action (DME) OneTouch Verio test strips Strip See Rx Instructions .ROUTE .MEDSUPPLY Qty: 100 3RF Rx Instructions: for once a day testing albuterol sulfate 90 mcg/actuation HFA aerosol inhaler 2 puff INHALATION Q6H PRN (Reason: Shortness Of Breath Or Wheezing) Qty: 18 1RF albuterol sulfate 0.63 mg/3 mL solution for nebulization 0.63 mg inhalation QID PRN (Reason: shortness of breath or wheezing) Qty: 90 3RF Levemir FlexTouch U-100 Insuln 100 unit/mL (3 mL) insulin pen 30 unit subcut DAILY Qty: 15 3RF bromfenac 0.09 % drops 1 drp ophthalmic (eye) DAILY 16 Days Qty: 1.7 0RF Rx Instructions: Bring to allergy clinic for testing (DME) lancets [OneTouch Delica Lancets] 33 gauge misc See Rx Instructions .ROUTE .MEDSUPPLY Qty: 100 Rx Instructions: As directed (DME) pen needle, diabetic [BD Ultra-Fine Micro Pen Needle] 32 gauge x 1/4" needle See Rx Instructions .ROUTE .MEDSUPPLY Qty: 50 Rx Instructions: As directed (DME) Bed Side Commode Misc See Rx Instructions .Route Qty: 1 0RF Rx Instructions: As directed doxycycline hyclate 50 mg tablet See Rx Instructions PO .COMPLEX Qty: 3 0RF Rx Instructions: Do not take, bring to the allergy clinic for testing (DME) inhaler,assist devices,access Device See Rx Instructions .MEDSUPPLY Qty: 1 0RF Rx Instructions: spacer for HFA inhlaer, use as directed amlodipine 5 mg tablet 5 mg PO HS olmesartan 40 mg tablet 40 mg PO QDL levothyroxine 137 mcg tablet 137 mcg PO DAILYBB (DME) blood-glucose meter [OneTouch Verio Meter] Misc See Rx Instructions .Route Qty: 1 0RF Rx Instructions: As directed budesonide-formoterol [Symbicort] 80-4.5 mcg/actuation HFA aerosol inhaler 1 inh inhalation BID Qty: 10.2 2RF (DME) Spacer for Inhaler Misc See Rx Instructions .Route Qty: 1 0RF Rx Instructions: As directed acetaminophen [Tylenol Extra Strength] 500 mg Tablet 1,000 mg PO Q8H Qty: 30 0RF potassium chloride 20 mEq packet 20 meq PO DAILY Qty: 30 2RF bumetanide 1 mg tablet 1 mg PO DAILY Qty: 30 0RF Referrals Referrals: Irish Ramos MD [Primary Care Provider] -
[2022-12-10 14:38] LABS: Basophils # (auto) 0.02 K/uL (0-0.2); Basophils % (auto) 0.4 %; Eosinophils # (auto) 0.15 K/uL (0-0.50); Eosinophils % (auto) 2.9 %; Hematocrit (blood only) 35.9 % (37.0-47.0); Hemoglobin 11.4 g/dl (12.0-16.0); Immature Granulocytes # (auto) 0.01 K/uL (0.01-0.20); Immature Granulocytes % (auto) 0.2 %; Lymphocytes # (auto) 0.62 K/uL (1.2-3.4); Lymphocytes % (auto) 12.2 %; Mean Corpuscular Hemoglobin 27.2 pg (25.0-34.0); Mean Corpuscular Hgb Conc 31.8 g/dL (32.0-36.0); Mean Corpuscular Volume 85.7 fL (80.0-100.0); Mean Platelet Volume 9.8 fL (9.4-12.4); Monocytes # (auto) 0.39 K/uL (0.11-0.59); Monocytes % (auto) 7.7 %; Neutrophils % (auto) 76.6 %; Platelet Count 264 K/uL (130-400); RDW Coefficient of Variation 14.6 % (11.5-14.5); RDW Standard Deviation 46.1 fL (36.4-46.3); Red Blood Count 4.19 M/uL (4.20-5.40); White Blood Count 5.09 K/ul (4.8-10.8)
--- NOTE | 2022-12-10 14:45 | XRay Report ---
XR chest 1V portable CLINICAL HISTORY: Sepsis TECHNIQUE: Single frontal radiograph of the chest was obtained. Comparison: Comparison is made to chest radiograph 12/02/2022 FINDINGS: No lines and tubes are seen. Calcified aortic knob is seen. Left retrocardiac opacity has significant ly improved from prior. There may be a trace left pleural effusion. No pneumothorax is seen. Degenera tive changes are seen in the spine and bilateral shoulder joints. IMPRESSION: Trace left pleural effusion. Left retrocardiac opacity has significantly improved from prior. ACT 112: Negative or not required by law. Electronically signed by: Austin Ritter M.D. 12/10/2022 2:43 PM
[2022-12-10 14:50] LABS: Albumin Level 3.9 gm/dl (3.4-5.0); BUN Creatinine Ratio 26.6 (10-20); Bilirubin,Total 0.5 mg/dl (0.2-1.0); Calcium 9.1 mg/dl (8.5-10.1); Creatinine Clr Calc Pharmacy 63.4 ml/min; Est GFR (African American) 69.3 ml/min; Est GFR (Non-African American) 59.8 ml/min; Magnesium 2.3 mg/dl (1.7-2.4); Potassium 3.4 mmol/L (3.5-5.1)
[2022-12-10 14:53] LABS: Troponin I High Sensitivity 9.3 pg/ml (0-14)
[2022-12-10 15:01] LABS: Appearance Urine Clear (Clear); Bacteria Urine Automated Negative (Negative); Bilirubin Urine Negative (Negative); Blood Urine 2+ (Negative); Color Urine Yellow; Glucose Urine UA 1+ (Negative); Ketones Urine Trace (Negative); Leukocyte Esterase Urine Negative (Negative); Nitrite Urine Negative (Negative); Protein Urine 3+ (Negative); Specific Gravity Urine 1.014 (1.000-1.030); Urobilinogen Urine Negative (Negative)
[2022-12-10 15:07] LABS: Partial Thromboplastin Ratio 1.1; Partial Thromboplastin Time 30.2 Seconds (21.0-31.0); Prothrombin Time 10.5 Seconds (9.0-12.0)
--- NOTE | 2022-12-10 15:09 | History & Physical Report ---
Date of Service December 10, 2022 Assessment & Plan (1) Shortness of breath: Plan: She reports this is currently resolved with the nebulizer given in the ambulance however she also reports with all of the treatment she had last admission she did not feel she improved. We will switch her Symbicort for budesonide and formoterol nebulizers twice daily while here. Encouraged her to take this as refusing inhaler last time she was here. ?acute worsening due to coughing and vomiting episode associated with rash Steroid given for maculopapular rash may also help with her breathing CXR appears improved from prior although I suspect she can tolerate more diuresis especially while in the hospital and this may also help with her uncontrolled hypertension (2) Acute maculopapular rash: Plan: Suspect this is allergic reaction given extensive history, appears to be limited to back and upper extremities on admission but no clear contact causing allergy Solu-medrol 60mg IV now, will defer further doses to oncoming providers tomorrow depending on clinical course Diphenhydramine 50mg IV q6h prn (3) Nephrotic range proteinuria: Plan: Suspect hypervolemia more to do with her proteinuria and CKD however than specifically heart failure and will repeat urine Protein/Cr ratio and if > 3 consult nephrology (4) Acute on chronic heart failure with preserved ejection fraction (HFpEF): (5) Hypothyroidism, postablative: Plan: TSH always appears to be elevated, will repeat with AM labs Free T4 usually low normal and may consider increasing her levothyroxine dosing. (6) HTN (hypertension): Plan: Uncontrolled chronically Bumex 1mg IV now, then BID Continue amlodipine and olmesartan and monitor with increased diuresis (7) Type 2 diabetes mellitus with peripheral neuropathy: Plan: Hemoglobin A1C 8.1 earlier this month. No need to repeat this. Consult pharmacy for glycemic control Plan VTE prophylaxis -Lovenox 40 mg subcu daily Diet -low-sodium, type 2 diabetes Disposition - admit to [facility] with telemetry Admission and Anticipated Discharge Date Admission Date: December 10, 2022 History of Present Illness Chief Complaint: Shortness of breath, rash Primary Care Provider: Irish Ramos MD Carli Logan is a 76-year-old female who presnts to the ER due to shortness of breath and rash. She was recently admitted at [facility] from Nov 26 to 2022 with acute on chronic respiratory failure with hypoxia suspected to be secondary to acute on chronic heart failure with preserved ejection fraction. She was not taking Bumex prior to that admission as she has decreased mobility and didn't think it made much difference to her shortness of breath and leg swelling. She was discharged on 1mg bumex PO daily but is yet to take any as the pharmacy didn't have it in stock therefore she doesn't have any pills. Despite notes to the contrary the patient does not feel she improved while she was hospitalized. Since going home her shortness of breath became progressively worse. Although currently she reports after the nebulizer in the ambulance she tells me she no longer feels short of breath and her main concern is her rash. Of note she was refusing her inhalers last admission which I could not get a good explanation as to why from the patient - she told me she didn't feel like she needed it but was also clearly feeling short of breath. She has also noted a cough which started last night. She reports sharing a room with a patient with a similar cough while hospitalized. She coughed and "vomited" up phlegm this morning. She denies any sinus pain, nasal congestion. She was on antibiotics last admission to cover for pneumonia but was discontinued after pulmonology evaluation. Her rash started last night prior to her cleaning lady coming. No new cleaning products, medications or food. She reports just eating an egg and toast yesterday which she normally dose not have a reaction to. Rash started last night. No new medications. Cleaning lady was around yesterday but rash appeared before any cleaning and she only usees the patients cleaning products. Spreading just on her upper extremities. She is concerned that this is how her allergies start then she cannot breath. Rash extremely itchy. Allergies Allergy/AdvReac Type Severity Reaction Status Date / Time aspirin Allergy Severe HIVES; Verified 12/10/22 14:52 DIFFICULTY BREATHING colchicine Allergy Severe Difficulty Verified 12/10/22 14:52 Breathing Benzodiazepines Allergy Mild Unknown Verified 12/10/22 14:52 doxycycline Allergy Mild Unknown Verified 12/10/22 14:52 aspartame Allergy Unknown Unknown Verified 12/10/22 14:52 diltiazem Allergy Unknown UNKNOWN Verified 12/10/22 14:52 REACTION melon Allergy Unknown Unknown Verified 12/10/22 14:52 nifedipine Allergy Unknown UNKNOWN Verified 12/10/22 14:52 REACTION simvastatin Allergy Unknown UNKNOWN Verified 12/10/22 14:52 REACTION PER PT sucralose Allergy Unknown Unknown Verified 12/10/22 14:52 vancomycin Allergy Unknown UNKNOWN Verified 12/10/22 14:52 REACTION Iodinated Contrast Media AdvReac Intermediate Rash Verified 12/10/22 14:52 Home Medications Medication Instructions Recorded Confirmed Type blood sugar diagnostic (OneTouch #100 ea 12/05/20 12/10/22 Rx Verio test strips) lancets 33 gauge (OneTouch Delica #100 ea 01/03/21 12/10/22 History Lancets) pen needle, diabetic 32 gauge x #50 ea 01/03/21 12/10/22 History 1/4" (BD Ultra-Fine Micro Pen Needle) Bed Side Commode #1 ea 08/28/21 12/10/22 Rx amlodipine 5 mg tablet 5 mg PO HS 02/17/22 12/10/22 History olmesartan 40 mg tablet 40 mg PO QDL 02/17/22 12/10/22 History albuterol sulfate 90 mcg/actuation 2 puff inhalation Q6H PRN 06/30/22 12/10/22 Rx aerosol inhaler Shortness Of Breath Or Wheezing #18 grams levothyroxine 137 mcg tablet 137 mcg PO DAILYBB 07/07/22 12/10/22 History blood-glucose meter (OneTouch #1 ea 07/09/22 12/10/22 Rx Verio Meter) albuterol sulfate 0.63 mg/3 mL 0.63 mg (3 mL) inhalation QID PRN 07/20/22 12/10/22 Rx solution for nebulization shortness of breath or wheezing #90 mL doxycycline hyclate 50 mg tablet See Rx Instructions PO .COMPLEX #3 08/28/22 12/10/22 Rx tabs Spacer for Inhaler #1 ea 09/04/22 12/10/22 Rx budesonide-formoterol HFA 80 1 inh inhalation BID #10.2 grams 09/04/22 12/10/22 Rx mcg-4.5 mcg/actuation aerosol inhaler (Symbicort) insulin detemir U-100 100 unit/mL 30 unit (0.3 mL) subcut DAILY #15 10/11/22 12/10/22 Rx (3 mL) subcutaneous pen (Levemir mL FlexTouch U-100 Insulin) bromfenac 0.09 % eye drops 1 drp ophthalmic (eye) DAILY 10/30/22 12/10/22 Rx days #1.7 mL inhaler,assist devices,access #1 ea 11/05/22 12/10/22 Rx acetaminophen 500 mg tablet 1,000 mg PO Q8H #30 tabs 12/03/22 12/10/22 Rx (Tylenol Extra Strength) bumetanide 1 mg tablet 1 mg PO DAILY #30 tabs 12/03/22 12/10/22 Rx potassium chloride 20 mEq oral 20 meq PO DAILY #30 ea 12/03/22 12/10/22 Rx packet Past Med/Surg History Medical History Acute diastolic (congestive) heart failure Ambulatory dysfunction Asthma Cardiac arrest Chest pain CHF exacerbation Chronic edema Chronic respiratory failure with hypoxia, on home O2 therapy Closed right hip fracture Contusion of elbow CSF leak Diabetes mellitus with albuminuria Diastolic heart failure Dyslipidemia Elevated serum globulin level Financial difficulties Gait abnormality History of ectopic History of seizures as a child HTN (hypertension) Hx of papillary thyroid carcinoma Hx of pleurisy Hx of thyroid cancer Hypokalemia Hypomagnesemia Hypothyroidism, postablative Injury of right leg Lower extremity edema Mild intermittent asthma Multiple drug allergies Obstructive pattern present on pulmonary function testing Pleurisy without effusion Pleuritic chest pain Right knee DJD Shakiness Type 2 diabetes mellitus Type 2 diabetes mellitus with peripheral neuropathy Vitamin D deficiency Wheelchair bound Surgical History History of D&C Hx of brain surgery 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) Hx of section Hx of thyroidectomy Family History Father Stroke Mother Dementia Diabetes Sister Macular degeneration Brother Macular degeneration Other TIA (transient ischemic attack) Denies family history of Ovarian cancer Prostate cancer Myocardial infarction Breast cancer Colorectal cancer Social History Smoking Status: Never smoker Second Hand Exposure: No; Hx Alcohol Use: No Hx Substance Use: No Preferred Language: Pry[place]in[place] Communication Ability: Effective Visual Impairment: No Limitations Hearing Ability: Normal Mold Press Operator Required: No Beliefs That Will Affect Care: None marital status: / Current Living Situation: Alone Current Living Situation Comment: has family that lives nearby and helps out current occupational status: retired 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 Feels Safe at Home: Yes Safety Concerns: Feels Safe At This Time Childhood Exposure to Second-Hand Smoke: No Dental Care, Regularly: Yes Physical Activity Frequency: Does not Exercise Seatbelt Use: always Sunscreen Use: No Assistive Devices: Glasses, Hospital Bed, Oxygen - Continuous, Scooter/Electric Scooter and Wheelchair Review of Systems Review of Systems: All systems reviewed & are unremarkable except as noted in HPI & below Chest pain on deep inspiration on left side same as what she was having last admission Physical Exam Constitutional: WD/WN, vitals as above Eyes: + anicteric sclerae; normal pupil size Respiratory: normal respiratory effort; no respiratory distress Auscultation: + crackles (left base); breath sounds present, no diminished lung sounds, no rales, no rhonchi and no wheezes Cardiovascular: Rate/Rhythm: regular rate and regular rhythm Heart Sounds: no murmur Extremities: + pedal edema (3+ b/l LE pitting equal b/l) Gastrointestinal (Abdomen): normal bowel sounds, soft, nontender, no hepatosplenomegaly Skin: Generalized macular papular rash over back and b/l upper extremities, especially over left elbow. Sparing chest and bilateral lower extremities Neurologic: moves all extremities and awake; not confused Psychiatric: A+Ox3, euthymic affect Results & Data Results & Data ([facility]) Vital Signs (Past 12 Hours) Vital Signs Temp Pulse Resp BP Pulse Ox O2 Del Method 12/10/22 14:32 80 L Room Air 12/10/22 14:32 Nasal Cannula 12/10/22 14:14 36.9 C 99 H 18 211/89 H 80 L Room Air 12/10/22 13:50 102 H Laboratory Results Abnormal lab results 12/10/22 12/10/22 12/10/22 Range/Units 14:10 14:10 14:26 RBC 4.19 L (4.20-5.40) M/uL Hgb 11.4 L (12.0-16.0) g/dl Hct 35.9 L (37.0-47.0) % MCHC 31.8 L (32.0-36.0) g/dL RDW Coeff of Smith 14.6 H (11.5-14.5) % Lymph # (Auto) 0.62 L (1.2-3.4) K/uL VBG pH (7.36-7.41) VBG pCO2 (38-50) mmHg Potassium 3.4 L (3.5-5.1) mmol/L Carbon Dioxide 34 H (21-32) mmol/L BUN 25 H (6-23) mg/dl BUN/Creatinine Ratio 26.6 H (10-20) Glucose 231 H (70-99(Fasting)) mg/dl POC Glucose (70-99) mg/dl Urine Protein 3+ H (Negative) Urine Glucose (UA) 1+ H (Negative) Urine Ketones Trace H (Negative) Urine Blood 2+ H (Negative) Urine RBC (Auto) 10-30 H (0-4) /hpf U Epithel Cells (Auto) 5-10 H (0-5) /lpf U Random Total Protein (0-11.9) mg/dl Protein/Creatinin Ratio (0-0.2) 12/10/22 12/10/22 12/10/22 Range/Units 14:26 14:55 20:14 RBC (4.20-5.40) M/uL Hgb (12.0-16.0) g/dl Hct (37.0-47.0) % MCHC (32.0-36.0) g/dL RDW Coeff of Smith (11.5-14.5) % Lymph # (Auto) (1.2-3.4) K/uL VBG pH 7.35 L (7.36-7.41) VBG pCO2 65 H (38-50) mmHg Potassium (3.5-5.1) mmol/L Carbon Dioxide (21-32) mmol/L BUN (6-23) mg/dl BUN/Creatinine Ratio (10-20) Glucose (70-99(Fasting)) mg/dl POC Glucose 203 H (70-99) mg/dl Urine Protein (Negative) Urine Glucose (UA) (Negative) Urine Ketones (Negative) Urine Blood (Negative) Urine RBC (Auto) (0-4) /hpf U Epithel Cells (Auto) (0-5) /lpf U Random Total Protein 230.2 H (0-11.9) mg/dl Protein/Creatinin Ratio 4.6 H (0-0.2) Diagnostic Findings XR chest 1V portable CLINICAL HISTORY: Sepsis TECHNIQUE: Single frontal radiograph of the chest was obtained. Comparison: Comparison is made to chest radiograph 12/02/2022 FINDINGS: No lines and tubes are seen. Calcified aortic knob is seen. Left retrocardiac opacity has significantly improved from prior. There may be a trace left pleural effusion. No pneumothorax is seen. Degenerative changes are seen in the spine and bilateral shoulder joints. IMPRESSION: Trace left pleural effusion. Left retrocardiac opacity has significantly improved from prior. Medications Administered ER medications given: None ECG Indication: SOB/dyspnea Rate (beats per minute): 99 Rhythm: normal sinus Findings: + other (suspected limb lead reversal) Comparison ECG Date: from (Nov 29, 2022) Change: the following changes noted (QRS axis shifted right) Code Status & VTE Plan Code Status Full VTE Prophylaxis Plan VTE Prophylaxis will be ordered: Yes PG Care Time/CCT Total # of Minutes Spent Total Time Spent with Patient: Total time spent is greater than 50% in coordination of care (as documented) at patient's floor/unit and/or counseling patient: Coding Level of Care Code 78384 INT INP/OBS CARE 3/75MIN Diagnoses Shortness of breath R06.02 Acute maculopapular rash R21 Nephrotic range proteinuria R80.9 Acute on chronic heart failure with preserved ejection fraction (HFpEF) I50.33 Hypothyroidism, postablative E89.0 HTN (hypertension) I10 Hypertension type: essential hypertension Type 2 diabetes mellitus with peripheral neuropathy E11.42 (6) HTN (hypertension) Hypertension type: essential hypertension Qualified Code(s): I10 - Essential (primary) hypertension
[2022-12-10 15:23] LABS: Base Excess VBG 7.3 mEq/L; HCO3 VBG 36 mmol/L; Oxygen Saturation VBG < 60.0 %; PCO2 VBG 65 mmHg (38-50); PO2 VBG 38 mmHg; pH VBG 7.35 (7.36-7.41)
[2022-12-10] MEDS ORDERED: methylPREDNISolone 125 MG/2 ML VIAL IV STA (15:34)
[2022-12-10] MEDS ORDERED: BUMETANIDE 1 MG in SYRINGE 0 ML IV STA (15:41)
[2022-12-10] MEDS ORDERED: diphenhydrAMINE 50 MG/ML VIAL IV STA (15:55)
[2022-12-10 16:11] LABS: Influenza A virus by PCR Negative (Neg); Influenza B virus by PCR Negative (Neg); RSV by PCR Negative (Neg); SARS CoV2 RNA(COVID-19) Ceph NEGATIVE (Negative)
--- NOTE | 2022-12-10 17:11 | Electrocardiogram Report ---
Test Reason : Blood Pressure : / mmHG Vent. Rate : 099 BPM Atrial Rate : 099 BPM P-R Int : 178 ms QRS Dur : 098 ms QT Int : 362 ms P-R-T Axes : 085 154 112 degrees QTc Int : 464 ms Likely limb lead reversal Normal sinus rhythm Inferior infarct , age undetermined Poor R wave progression, consider anterior ND vs. lead placement vs. LVH Abnormal ECG When compared with ECG of 29-NOV-2022 09:17, QRS axis Shifted right Confirmed by Klever Plata ([id number]) on 12/10/2022 5:11:20 PM Referred By: Confirmed By:Laurent Plata
[2022-12-10 17:59] LABS: Creatinine Urine Random 50.1 mg/dl; Protein Creatinine Ratio Urine 4.6 (0-0.2); Total Protein Urine Random 230.2 mg/dl (0-11.9)
[2022-12-10] MEDS ORDERED: GLUCOSE 40% GEL 15 GM TUBE PO PRN (18:42)
[2022-12-10] MEDS ORDERED: ACETAMINOPHEN 325 MG TAB PO PRN (18:42)
[2022-12-10] MEDS ORDERED: GLUCAGON FOR INJ 1 MG VIAL SQ PRN (18:42)
[2022-12-10] MEDS ORDERED: DEXTROSE 50% 50 ML SYRINGE IV PRN (18:42)
[2022-12-10] MEDS ORDERED: PHARMACY GLYCEMIC MGMT CONSULT PRN (18:42)
[2022-12-10] MEDS ORDERED: CARBOHYDRATES FOR HYPOGLYCEMIA PO PRN (18:42)
[2022-12-10] MEDS ORDERED: GLUCOSE 10 TAB/TUBE PO PRN (18:42)
[2022-12-10] MEDS: BUDESONIDE 0.5 MG/2 ML VIAL (PULMICORT) NEB SCH (19:29)
[2022-12-10] MEDS: FORMOTEROL 20 MCG/2 ML VIAL NEB SCH (19:29)
--- NOTE | 2022-12-10 19:41 | Pharmacy Report ---
Pharmacy Glycemic Short Note 2 - Date of Service December 10, 2022 - Glycemic Short BSG Results (Last 24 hours): 12/10/22 14:10 Glucose 231 H OUTPATIENT ANTIDIABETIC REGIMEN: * Levemir 30 units SC daily * HbA1c: 8.1% (11/28/22) ASSESSMENT: * 76 yo F admitted secondary to shortness of breath. Pharmacy has been consulted to assist with inpatient glycemic management. Patient recently admitted at [facility] from 11/28/22-12/03/22. Will utilize glycemic info from that visit to guide dosing. * Received 60 mg of IV Methylprednisolone in the ED. No further steroid orders. Ordered a type 2 diet. * Given once daily dosing at home will start Lantus 20 units now followed by once daily tomorrow AM. Novolog will be based on weight/stress of 2 for now. PLAN FOR INPATIENT GLYCEMIC CONTROL: * Basal insulin * Lantus 20 units SC daily (first dose now) * Bolus insulin * NovoLog per scale ACHS or Q6hrs while NPO * Goal Range: Low 110 mg/dL - High 140 mg/dL * Correction Factor: 25 mg/dL/unit * Nutritional / Prandial insulin per carb ratio of 1 unit per 8 grams CHO consumed
[2022-12-10] MEDS ORDERED: diphenhydrAMINE 50 MG/ML VIAL IV PRN (20:54)
[2022-12-10] MEDS ORDERED: LANTUS PER UNIT CHARGE SQ SCH (21:00)
[2022-12-10] MEDS: LANTUS PER UNIT CHARGE SQ SCH (21:18)
[2022-12-10] MEDS: INSULIN ASPART PER UNIT SC SCH (21:18)
[2022-12-10] MEDS: amLODIPine BESYLATE 5 MG TAB PO SCH (21:44)
[2022-12-10] MEDS: POTASSIUM CHLORIDE PWD 20 MEQ PACK PO SCH (21:45)
[2022-12-11] MEDS: LEVOTHYROXINE SODIUM 137 MCG TABLET PO SCH (05:45)
[2022-12-11] MEDS: FORMOTEROL 20 MCG/2 ML VIAL NEB SCH ×2 (07:32→19:58)
[2022-12-11] MEDS: BUDESONIDE 0.5 MG/2 ML VIAL (PULMICORT) NEB SCH ×2 (07:32→19:58)
[2022-12-11] MEDS: BUMETANIDE 1 MG in SYRINGE 0 ML IV SCH ×2 (07:46→19:30)
[2022-12-11] MEDS: POTASSIUM CHLORIDE PWD 20 MEQ PACK PO SCH (07:47)
[2022-12-11] MEDS: LANTUS PER UNIT CHARGE SQ SCH (07:57)
[2022-12-11] MEDS: INSULIN ASPART PER UNIT SC SCH ×4 (07:58→20:32)
[2022-12-11] MEDS ORDERED: OLMESARTAN MEDOXOMIL 40 MG TAB PO SCH (09:00)
--- NOTE | 2022-12-11 09:47 | Pharmacy Report ---
Pharmacy Glycemic Short Note 2 - Date of Service December 11, 2022 - Glycemic Short BSG Results (Last 24 hours): 12/10/22 12/10/22 12/11/22 14:10 20:14 07:52 Glucose 231 H POC Glucose 203 H 201 H OUTPATIENT ANTIDIABETIC REGIMEN: * Levemir 30 units SC daily * HbA1c: 8.1% (11/28/22) ASSESSMENT: 12/11 * Fasting BSG elevated at 201 mg/dL. I suspect improvement over the next 24 hours given no ongoing steroids. * BSG is trending down at lunch. No changes to novolog order today. 12/10 * 76 yo F admitted secondary to shortness of breath. Pharmacy has been consulted to assist with inpatient glycemic management. Patient recently admitted at [facility] from 11/28/22-12/03/22. Will utilize glycemic info from that visit to guide dosing. * Received 60 mg of IV Methylprednisolone in the ED. No further steroid orders. Ordered a type 2 diet. * Given once daily dosing at home will start Lantus 20 units now followed by once daily tomorrow AM. Novolog will be based on weight/stress of 2 for now. PLAN FOR INPATIENT GLYCEMIC CONTROL: * Basal insulin * Lantus 20 units SC daily * Bolus insulin * NovoLog per scale ACHS or Q6hrs while NPO * Goal Range: Low 110 mg/dL - High 140 mg/dL * Correction Factor: 25 mg/dL/unit * Nutritional / Prandial insulin per carb ratio of 1 unit per 8 grams CHO consumed
[2022-12-11] MEDS: LOSARTAN POTASSIUM 50 MG TAB PO SCH (10:50)
[2022-12-11] MEDS: ENOXAPARIN INJ 40 MG/0.4 ML SYR SQ SCH (10:52)
--- NOTE | 2022-12-11 15:53 | Nephrology Consultation ---
Date of Consultation December 11, 2022 Assessment & Plan (1) Nephrotic range proteinuria: Normal serum albumin. Clinical findings are not consistent with acute nephrosis. Carli is maintained on an adequate dose of ARB therapy with olmesartan. Volume status appears to be improving with Bumex. Good urine output. Prior evaluation for potential monoclonal process reviewed. No clinical findings of myeloma otherwise. Cannot exclude IDD or fibrillary GN. However, clinical presentation suggestive of DKD or sFSGS. Thankfully, serum creatinine remains normal. Close outpatient nephrology follow up is encouraged. PLA2r has been ordered with next blood work. Screening for hepatitis B and C has also been requested. Nephrology evaluation could be predominately completed as an outpatient. We will follow peripherally but please call with any questions or concerns while inpatient. Outpatient follow up can be arranged with me in the nephrology clinic within 1-2 weeks of discharge. (2) Acute on chronic heart failure with preserved ejection fraction (HFpEF): Excellent urine output and noted clinical response to IV bumex. Will require pulmonology follow up regarding loculated pleural effusion. (3) Acute maculopapular rash: Findings suggestive of possible scabies. Consider skin scrapping or empiric treatment. (4) Renal cyst, left: Imaging reviewed. Repeat US suggested in 6 months. Output follow up with nephrology or urology encouraged. (5) Accelerated hypertension: Anticipate some improvement with diuresis. Continue losartan as Rx. Increase amlodipine to 10 mg daily PRN. History of Present Illness Reason for Consultation: nephrotic range proteinuria Requesting Physician: Yaw Silver Attending Physician: Yaw Silver History of Present Illness Mrs. Carli Logan is a 76 year-old female with HFpEF, asthma, chronic hypoxic respiratory failure on home O2, T2DM, hypertension, lymphedema of the LE, hypothyroidism, and ambulatory dysfunction. She presented to the [facility] ED yesterday for evaluation of shortness of breath and diffuse rash. Carli was recently admitted to [facility] earlier this month with progressive shortness of breath and pleuritic chest pain. Evaluation revealed HFpEF and a loculated pleural effusion. She diuresed with IV Bumex and was discharged home. In the ED yesterday evening, she received IV methylprednisolone 60 mg and Bumex 1 mg IV. She had a robust response in urine output. Carli was seen and evaluated in her hospital room this morning. She was resting comfortably without acute complaints. She reports improved LE edema and dyspnea. Her primary concern was a diffuse rash which had appeared on her arms, chest and back within the past 24 hours. The rash is predominate over the upper back and on the extensor surfaces of her arms. It is diffusely pruritic. She has not experienced anything similar in the past. Some improvement noted with topicals provided. She denies chest pains or palpiations or shortness of breath. She is non-oliguric. BP elevated. Evaluation demonstrated a L renal cysts of 2.4 cm with mural nodularity on US. A 6 month follow up study was recommended. The lesion is appreciated on CT scan demonstrating a 2.7 cm cystic structure which is new from 2007. Laboratory evaluation demonstrating a WBC of 5 with hemoglobin of 11.5. Serum creatinine has remained normal at 0.95 mg/dL. Electrolytes acceptable. Serum albumin 3.9. UA demonstrating 3+ protein with 1+ glucose and trace ketones. 2+ blood and 10- 30 RBC and 1-5 WBC. PCR 4.6. Carli's PCP had demonstrated nephrotic range proteinuria in the past. In September 2021, a UPEP demonstrated proteinuria of 3.2 g/g with non-selective glomerular proteinuria. Serum IF in December demonstrating several faint indistinct bands and SPEP with increased faint restricted M spike in the gamm globulin region with increased alpha-1. Allergies Allergy/AdvReac Type Severity Reaction Status Date / Time aspirin Allergy Severe HIVES; Verified 12/10/22 14:52 DIFFICULTY BREATHING colchicine Allergy Severe Difficulty Verified 12/10/22 14:52 Breathing Benzodiazepines Allergy Mild Unknown Verified 12/10/22 14:52 doxycycline Allergy Mild Unknown Verified 12/10/22 14:52 aspartame Allergy Unknown Unknown Verified 12/10/22 14:52 diltiazem Allergy Unknown UNKNOWN Verified 12/10/22 14:52 REACTION melon Allergy Unknown Unknown Verified 12/10/22 14:52 nifedipine Allergy Unknown UNKNOWN Verified 12/10/22 14:52 REACTION simvastatin Allergy Unknown UNKNOWN Verified 12/10/22 14:52 REACTION PER PT sucralose Allergy Unknown Unknown Verified 12/10/22 14:52 vancomycin Allergy Unknown UNKNOWN Verified 12/10/22 14:52 REACTION Iodinated Contrast Media AdvReac Intermediate Rash Verified 12/10/22 14:52 Home Medications Medication Instructions Recorded Confirmed Type blood sugar diagnostic (OneTouch #100 ea 12/05/20 12/10/22 Rx Verio test strips) lancets 33 gauge (OneTouch Delica #100 ea 01/03/21 12/10/22 History Lancets) pen needle, diabetic 32 gauge x #50 ea 01/03/21 12/10/22 History 1/4" (BD Ultra-Fine Micro Pen Needle) Bed Side Commode #1 ea 08/28/21 12/10/22 Rx amlodipine 5 mg tablet 5 mg PO HS 02/17/22 12/10/22 History olmesartan 40 mg tablet 40 mg PO QDL 02/17/22 12/10/22 History albuterol sulfate 90 mcg/actuation 2 puff inhalation Q6H PRN 06/30/22 12/10/22 Rx aerosol inhaler Shortness Of Breath Or Wheezing #18 grams levothyroxine 137 mcg tablet 137 mcg PO DAILYBB 07/07/22 12/10/22 History blood-glucose meter (OneTouch #1 ea 07/09/22 12/10/22 Rx Verio Meter) albuterol sulfate 0.63 mg/3 mL 0.63 mg (3 mL) inhalation QID PRN 07/20/22 12/10/22 Rx solution for nebulization shortness of breath or wheezing #90 mL doxycycline hyclate 50 mg tablet See Rx Instructions PO .COMPLEX #3 08/28/22 12/10/22 Rx tabs Spacer for Inhaler #1 ea 09/04/22 12/10/22 Rx budesonide-formoterol HFA 80 1 inh inhalation BID #10.2 grams 09/04/22 12/10/22 Rx mcg-4.5 mcg/actuation aerosol inhaler (Symbicort) insulin detemir U-100 100 unit/mL 30 unit (0.3 mL) subcut DAILY #15 10/11/22 12/10/22 Rx (3 mL) subcutaneous pen (Levemir mL FlexTouch U-100 Insulin) bromfenac 0.09 % eye drops 1 drp ophthalmic (eye) DAILY 16 10/30/22 12/10/22 Rx days #1.7 mL inhaler,assist devices,access #1 ea 11/05/22 12/10/22 Rx acetaminophen 500 mg tablet 1,000 mg PO Q8H #30 tabs 12/03/22 12/10/22 Rx (Tylenol Extra Strength) bumetanide 1 mg tablet 1 mg PO DAILY #30 tabs 12/03/22 12/10/22 Rx potassium chloride 20 mEq oral 20 meq PO DAILY #30 ea 12/03/22 12/10/22 Rx packet Patient History Medical History Acute diastolic (congestive) heart failure Ambulatory dysfunction Asthma Cardiac arrest Chest pain CHF exacerbation Chronic edema Chronic respiratory failure with hypoxia, on home O2 therapy Closed right hip fracture Contusion of elbow CSF leak Diabetes mellitus with albuminuria Diastolic heart failure Dyslipidemia Elevated serum globulin level Financial difficulties Gait abnormality History of ectopic History of seizures as a child HTN (hypertension) Hx of papillary thyroid carcinoma Hx of pleurisy Hx of thyroid cancer Hypokalemia Hypomagnesemia Hypothyroidism, postablative Injury of right leg Lower extremity edema Mild intermittent asthma Multiple drug allergies Obstructive pattern present on pulmonary function testing Pleurisy without effusion Pleuritic chest pain Right knee DJD Shakiness Type 2 diabetes mellitus Type 2 diabetes mellitus with peripheral neuropathy Vitamin D deficiency Wheelchair bound Surgical History History of D&C Hx of brain surgery 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) Hx of section Hx of thyroidectomy Family History Father Stroke Mother Dementia Diabetes Sister Macular degeneration Brother Macular degeneration Other TIA (transient ischemic attack) Denies family history of Ovarian cancer Prostate cancer Myocardial infarction Breast cancer Colorectal cancer Social History Smoking Status: Never smoker Second Hand Exposure: No; Hx Alcohol Use: No Hx Substance Use: No Preferred Language: Serbian Communication Ability: Effective Visual Impairment: No Limitations Hearing Ability: Normal Headwaitress Required: No Beliefs That Will Affect Care: None marital status: / Current Living Situation: Alone Current Living Situation Comment: has family that lives nearby and helps out current occupational status: retired 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 Feels Safe at Home: Yes Safety Concerns: Feels Safe At This Time Childhood Exposure to Second-Hand Smoke: No Dental Care, Regularly: Yes Physical Activity Frequency: Does not Exercise Seatbelt Use: always Sunscreen Use: No Assistive Devices: Lift Chair, Scooter/Electric Scooter and Wheelchair Review of Systems Review of Systems: All systems reviewed & are unremarkable except as noted in HPI & below Integumentary: + rash and + dry skin Physical Exam Constitutional: well developed; no acute distress Eyes: no scleral abnormality and no corneal abnormality ENMT: Mouth: no oral mucosal abnormality and oral mucous membranes not dry Neck: normal visual inspection and trachea midline Respiratory: normal respiratory effort Auscultation: lungs clear to auscultation bilaterally and + diminished lung sounds Cardiovascular: Rate/Rhythm: regular rate Heart Sounds: normal S1 and normal S2 Extremities: + edema; no calf tenderness Musculoskeletal: Extremities: no cyanosis and no clubbing Skin: + turgor decreased, + rash (raised bumps along arms, chest and back - notably extensor surfaces of arms) and + dry skin; no jaundice Neurologic: Motor/Sensory: no tremor and no asterixis Psychiatric: Orientation: alert and oriented x 3 Results & Data ([facility]) Vital Signs (Past 12 Hours) Vital Signs Temp Pulse Pulse Resp BP Pulse Ox O2 Del Method 12/11/22 15:43 36.3 C L 78 20 174/76 H 93 Nasal Cannula 12/11/22 14:54 69 12/11/22 08:48 Nasal Cannula 12/11/22 07:56 37.3 C 88 20 183/80 H 91 Nasal Cannula 12/11/22 07:07 75 12/11/22 04:31 37.3 C 81 18 175/90 H 96 Nasal Cannula O2 Flow Rate 12/11/22 15:43 2 12/11/22 14:54 12/11/22 08:48 2 12/11/22 07:56 2 12/11/22 07:07 12/11/22 04:31 2 Laboratory Results Laboratory Results - last 24 hr 12/10/22 12/10/22 12/10/22 14:26 15:06 20:14 POC Glucose 203 H Ur Random Creatinine 50.1 U Random Total Protein 230.2 H Protein/Creatinin Ratio 4.6 H SARS-CoV-2 (PCR) NEGATIVE Influenza Type A (PCR) Negative Influenza Type B (PCR) Negative RSV (RT-PCR) Negative 12/11/22 12/11/22 07:52 11:36 POC Glucose 201 H 172 H Ur Random Creatinine U Random Total Protein Protein/Creatinin Ratio SARS-CoV-2 (PCR) Influenza Type A (PCR) Influenza Type B (PCR) RSV (RT-PCR) Diagnostic Findings XR chest 1V portable FINDINGS: No lines and tubes are seen. Calcified aortic knob is seen. Left retrocardiac opacity has significantly improved from prior. There may be a trace left pleural effusion. No pneumothorax is seen. Degenerative changes are seen in the spine and bilateral shoulder joints. IMPRESSION: Trace left pleural effusion. Left retrocardiac opacity has significantly improved from prior. RENAL ULTRASOUND Right kidney: 12.8 No hydronephrosis. Mild perinephric stranding. Normal corticomedullary differentiation and cortical thickness. Left kidney: 13.2 No hydronephrosis. 2.0 x 1.3 x 2.4 cm cyst of the interpolar left kidney without color flow. There is a questioned area of mural nodularity along the inferior component. Mild perinephric stranding. Normal corticomedullary differentiation and cortical thickness. Bladder: No bladder wall thickening. The bilateral ureteral jets were identified. IMPRESSION: 1. No renal calculi or hydronephrosis. 2. 2.4 cm cyst of the interpolar left kidney with equivocal area of mural nod ularity. 6 month follow-up renal ultrasound recommended. PG Care Time/CCT Total # of Minutes Spent Total Time Spent with Patient: Total time spent is greater than 50% in coordination of care (as documented) at patient's floor/unit and/or counseling patient: Coding Level of Care Code INP/OBS CONSULT LVL 4, 60 MIN Diagnoses Nephrotic range proteinuria R80.9 Acute on chronic heart failure with preserved ejection fraction (HFpEF) I50.33 Acute maculopapular rash R21 Renal cyst, left N28.1 Accelerated hypertension I10
[2022-12-11] MEDS: methylPREDNISolone 40 MG in SYRINGE 0 ML IV SCH (19:30)
[2022-12-11] MEDS: amLODIPine BESYLATE 5 MG TAB PO SCH (19:30)
[2022-12-11] MEDS ORDERED: ALBUTEROL HFA 8 GM INHALER INH PRN (19:52)
--- NOTE | 2022-12-11 22:26 | Hospitalist Progress Note ---
Date of Service December 11, 2022 Assessment & Plan (1) Shortness of breath: Plan: She reports this is currently resolved with the nebulizer given in the ambulance however she also reports with all of the treatment she had last admission she did not feel she improved. We will switch her Symbicort for budesonide and formoterol nebulizers twice daily while here. Encouraged her to take this as refusing inhaler last time she was here. ?acute worsening due to coughing and vomiting episode associated with rash Steroid given for maculopapular rash may also help with her breathing CXR appears improved from prior although I suspect she can tolerate more diuresis especially while in the hospital and this may also help with her uncontrolled hypertension currently on 2 liters. IMproved on 12/11 will monitor (2) Acute maculopapular rash: Plan: Suspect this is allergic reaction given extensive history, appears to be limited to back and upper extremities on admission but no clear contact causing allergy Solu-medrol 60mg IV on admission Diphenhydramine 50mg IV q6h prn will repeat solumedrol on 12/11 (3) Nephrotic range proteinuria: Plan: Suspect hypervolemia more to do with her proteinuria and CKD however than specifically heart failure and will repeat urine Protein/Cr ratio and if > 3 consult nephrology (4) Acute on chronic heart failure with preserved ejection fraction (HFpEF): (5) Hypothyroidism, postablative: Plan: TSH always appears to be elevated, will repeat with AM labs Free T4 usually low normal and may consider increasing her levothyroxine dosing. (6) HTN (hypertension): Plan: Uncontrolled chronically Bumex 1mg IV now, then BID Continue amlodipine and olmesartan and monitor with increased diuresis (7) Type 2 diabetes mellitus with peripheral neuropathy: Plan: Hemoglobin A1C 8.1 earlier this month. No need to repeat this. Consult pharmacy for glycemic control Plan VTE prophylaxis -Lovenox 40 mg subcu daily Diet -low-sodium, type 2 diabetes Disposition - admit to [facility] with telemetry Admission and Anticipated Discharge Date Admission Date: December 10, 2022 Subjective Patient continues to complain of pruritus in her back and arms. Patient reports her breathing has improved. Review of Systems Review of Systems: All systems reviewed & are unremarkable except as noted in HPI & below Physical Exam Physical Exam: Constitutional: WD/WN, vitals as above Eyes: + anicteric sclerae; normal pupil size Respiratory: normal respiratory effort; no respiratory distress Auscultation: + crackles (left base); breath sounds present, no diminished lung sounds, no rales, no rhonchi and no wheezes Cardiovascular: Rate/Rhythm: regular rate and regular rhythm Heart Sounds: no murmur Extremities: + pedal edema (3+ b/l LE pitting equal b/l) Gastrointestinal (Abdomen): normal bowel sounds, soft, nontender, no hepatosplenomegaly Skin: Generalized macular papular rash over back and b/l upper extremities, especially over left elbow. Appears less pink. Sparing chest and bilateral lower extremities Neurologic: moves all extremities and awake; not confused Psychiatric: A+Ox3, euthymic affect Results & Data Results & Data ([facility]) Vital Signs (Past 12 Hours) Vital Signs Temp Pulse Pulse Resp BP Pulse Ox O2 Del Method 12/11/22 19:00 36.5 C 77 18 178/79 H 94 Nasal Cannula 12/11/22 15:43 36.3 C L 78 20 174/76 H 93 Nasal Cannula 12/11/22 14:54 69 O2 Flow Rate 12/11/22 19:00 2 12/11/22 15:43 2 12/11/22 14:54 PG Care Time/CCT Total # of Minutes Spent Total Time Spent with Patient: Total time spent is greater than 50% in coordination of care (as documented) at patient's floor/unit and/or counseling patient: Coding Level of Care Code 10798 SUB INP/OBS CARE 2/35MIN Diagnoses Shortness of breath R06.02 Acute maculopapular rash R21 Nephrotic range proteinuria R80.9 Acute on chronic heart failure with preserved ejection fraction (HFpEF) I50.33 Hypothyroidism, postablative E89.0 HTN (hypertension) I10 Hypertension type: essential hypertension Type 2 diabetes mellitus with peripheral neuropathy E11.42 (6) HTN (hypertension) Hypertension type: essential hypertension Qualified Code(s): I10 - Essential (primary) hypertension
[2022-12-12] MEDS: methylPREDNISolone 40 MG in SYRINGE 0 ML IV SCH ×4 (01:32→17:05)
[2022-12-12] MEDS: LEVOTHYROXINE SODIUM 137 MCG TABLET PO SCH (05:58)
[2022-12-12] MEDS: FORMOTEROL 20 MCG/2 ML VIAL NEB SCH (07:03)
[2022-12-12] MEDS: BUDESONIDE 0.5 MG/2 ML VIAL (PULMICORT) NEB SCH (07:03)
[2022-12-12] MEDS: INSULIN ASPART PER UNIT SC SCH ×4 (07:54→20:53)
[2022-12-12] MEDS: LANTUS PER UNIT CHARGE SQ SCH (07:55)
[2022-12-12] MEDS: LOSARTAN POTASSIUM 50 MG TAB PO SCH (08:02)
[2022-12-12] MEDS: POTASSIUM CHLORIDE PWD 20 MEQ PACK PO SCH (08:02)
[2022-12-12] MEDS: ENOXAPARIN INJ 40 MG/0.4 ML SYR SQ SCH (08:03)
[2022-12-12] MEDS: BUMETANIDE 1 MG in SYRINGE 0 ML IV SCH (08:03)
--- NOTE | 2022-12-12 08:56 | Nephrology Progress Note ---
Date of Service December 12, 2022 Assessment & Plan (1) Nephrotic range proteinuria: Plan: * Proteinuria likely due to DKD. 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 Clinical findings are not consistent with nephrotic syndrome * 01/06 SIEP did not reveal overt monoclonal spike * Recommend continue ARB therpy * Await PLA2R, Hep B and C results * Outpatient follow up w/ Dr. Espino when discharge is anticipated (2) Acute on chronic heart failure with preserved ejection fraction (HFpEF): Plan: * Improved. Will transition back to oral Bumex * Will require pulmonology follow up regarding loculated pleural effusion. (3) Acute maculopapular rash: Plan: * Hives, possibly related to drug exposure. Improved following steroid therapy (4) Renal cyst, left: Plan: * Imaging reviewed. Repeat US suggested in 6 months * Will need Urology evaluation (consider consultation Wednesday if still hospitalized or schedule outpatient visit) (5) Accelerated hypertension: Plan: * Continue Losartan 100 mg po daily * Would not titrate Amlodipine due to LE swelling. Continue Amlodipine 5 mg daily * Stop KCl * Start Spironolactone 25 mg daily * Change Bumex to outpatient dose of 1 mg po qAM Admission and Anticipated Discharge Date Admission Date: December 10, 2022 Subjective Ms. Logan was evaluated in her hospital room this morning. She notes that her breathing has improved. Her hives are fading following steroid therapy Review of Systems Constitutional: no fever Eyes: no problem reported Ear, Nose, Mouth, Throat: no problem reported Respiratory: no cough and no dyspnea Cardiovascular: no chest pain Gastrointestinal: no abdominal pain and no diarrhea/loose stools Genitourinary: no dysuria and no hematuria Physical Exam Constitutional: not in distress Eyes: PERRL, conjunctivae normal, anicteric sclerae ENMT: external ear and nose normal, oropharynx normal Neck: trachea midline, no thyromegaly Respiratory: normal respiratory effort, lungs clear to auscultation Cardiovascular: Rate/Rhythm: regular rate and regular rhythm Extremities: + edema (bilateral LE lymphedema) Gastrointestinal (Abdomen): normal bowel sounds, soft, nontender, no hepatosplenomegaly Neurologic: Speech / Cognition: normal speech and normal cognition Results & Data ([facility]) Vital Signs (Past 12 Hours) Vital Signs Temp Pulse Pulse Resp BP Pulse Ox O2 Del Method 12/12/22 07:35 Nasal Cannula 12/12/22 07:17 81 12/12/22 04:00 36.6 C 84 18 166/85 H 93 Nasal Cannula 12/11/22 22:00 82 12/11/22 22:00 37.1 C 86 18 180/80 H 92 Nasal Cannula 12/11/22 22:37 Nasal Cannula O2 Flow Rate 12/12/22 07:35 2 12/12/22 07:17 12/12/22 04:00 2 12/11/22 22:00 12/11/22 22:00 2 12/11/22 22:37 2 Laboratory Results Laboratory Tests 12/12/22 12/12/22 12/12/22 09:21 09:21 09:21 WBC 5.97 Hgb 11.6 L Hct 36.1 L Plt Count 288 Sodium 137 Potassium 4.0 Chloride 95 L Carbon Dioxide 37 H BUN 30 H Creatinine 1.03 Glucose 295 H Calcium 8.8 Phosphorus 3.4 Albumin 3.7 Phospholip A2 Rec IFA Pending Phospholip A2 Rec KIN Pending Laboratory Tests 12/12/22 09:21 Hep Bs Antigen Pending Hepatitis C Ab (EIA) Pending 01/06 Serum immunofixation: Faint indistinct bands are highlighted by one or more immunofixation reagents. Diagnostic Findings Abd CT 11/26/22: Kidneys: The contrast enhanced kidneys are normal in size and without hydronephrosis. There are bilateral extrarenal pelvises, right larger than left with fullness of the right renal collecting system. The kidneys enhance symmetrically. A 2.7 cm cystic structure in the interpolar left kidney seen on image #228 likely represents a cyst but is new from 2007. Renal US 11/26/22: No renal calculi or hydronephrosis. 2.4 cm cyst of the interpolar left kidney with equivocal area of mural nodularity. 6 month follow- up renal ultrasound recommended. Echocardiogram 09/08: LVEF 55-60%,mild LVH, mild MR, normal RV function, moderately dilated IVC, grade I diastolic dysfunction PG Care Time/CCT Total # of Minutes Spent Total Time Spent with Patient: Total time spent is greater than 50% in coordination of care (as documented) at patient's floor/unit and/or counseling patient: Coding Level of Care Code 61381 SUB INP/OBS CARE 3/50MIN Diagnoses Nephrotic range proteinuria R80.9 Acute on chronic heart failure with preserved ejection fraction (HFpEF) I50.33 Acute maculopapular rash R21 Renal cyst, left N28.1 Accelerated hypertension I10
[2022-12-12 09:46] LABS: Hematocrit (blood only) 36.1 % (37.0-47.0); Hemoglobin 11.6 g/dl (12.0-16.0); Mean Corpuscular Hemoglobin 26.6 pg (25.0-34.0); Mean Corpuscular Hgb Conc 32.1 g/dL (32.0-36.0); Mean Corpuscular Volume 82.8 fL (80.0-100.0); Mean Platelet Volume 9.7 fL (9.4-12.4); Platelet Count 288 K/uL (130-400); RDW Coefficient of Variation 14.5 % (11.5-14.5); RDW Standard Deviation 43.6 fL (36.4-46.3); Red Blood Count 4.36 M/uL (4.20-5.40); White Blood Count 5.97 K/ul (4.8-10.8)
[2022-12-12 10:00] LABS: Albumin Level 3.7 gm/dl (3.4-5.0); BUN Creatinine Ratio 29.1 (10-20); Calcium 8.8 mg/dl (8.5-10.1); Creatinine Clr Calc Pharmacy 57.1 ml/min; Est GFR (Non-African American) 53.5 ml/min; Phosphorus 3.4 mg/dl (2.5-4.9)
[2022-12-12] MEDS ORDERED: LANTUS PER UNIT CHARGE SQ ONE (10:00)
[2022-12-12] MEDS ORDERED: BUDESONIDE 0.5 MG/2 ML VIAL (PULMICORT) NEB PRN (11:27)
[2022-12-12] MEDS ORDERED: FORMOTEROL 20 MCG/2 ML VIAL NEB PRN (11:28)
--- NOTE | 2022-12-12 14:15 | XRay Report ---
XR chest 2V PA/lateral CLINICAL HISTORY: pleural effusion COMPARISON STUDY: Chest CT November 26, 2022 and chest radiograph December 10, 2022. FINDINGS: Small left pleural effusion is similar to prior exam. Pulmonary vascular congestion persist s. Cardiomediastinal silhouette is stable. There is no consolidation to suggest pneumonia. IMPRESSION: No change in a small left pleural effusion and pulmonary vascular congestion. ACT 112: Negative or not required by law. Electronically signed by: Vicente Shrestha M.D. 12/12/2022 2:13 PM
[2022-12-12 14:35] LABS: Appearance Urine Clear (Clear); Bacteria Urine Automated Negative (Negative); Bilirubin Urine Negative (Negative); Blood Urine 1+ (Negative); Color Urine Yellow; Epithelial Cell Urine Auto >30 /lpf (0-5); Glucose Urine UA 1+ (Negative); Ketones Urine Negative (Negative); Leukocyte Esterase Urine Negative (Negative); Nitrite Urine Negative (Negative); Protein Urine 3+ (Negative); RBC Urine Automated 0-4 /hpf (0-4); Specific Gravity Urine 1.013 (1.000-1.030); Urobilinogen Urine Negative (Negative); pH Urine 6.5 (4.5-7.5)
[2022-12-12] MEDS: SPIRONOLACTONE 25 MG TAB PO SCH (14:54)
[2022-12-12] MEDS: amLODIPine BESYLATE 5 MG TAB PO SCH (20:13)
[2022-12-12] MEDS ORDERED: LANTUS PER UNIT CHARGE SQ SCH (21:00)
--- NOTE | 2022-12-12 22:52 | Hospitalist Progress Note ---
Date of Service December 12, 2022 Assessment & Plan (1) Shortness of breath: Plan: She reports this is currently resolved with the nebulizer given in the ambulance however she also reports with all of the treatment she had last admission she did not feel she improved. We will switch her Symbicort for budesonide and formoterol nebulizers twice daily while here. Encouraged her to take this as refusing inhaler last time she was here. ?acute worsening due to coughing and vomiting episode associated with rash Steroid given for maculopapular rash may also help with her breathing CXR appears improved from prior although I suspect she can tolerate more diuresis especially while in the hospital and this may also help with her uncontrolled hypertension currently on 2 liters. IMproved on 12/11 will monitor. Patient is not quite at [facility]. reviewed images on 12/12 (2) Acute maculopapular rash: Plan: Suspect this is allergic reaction given extensive history, appears to be limited to back and upper extremities on admission but no clear contact causing allergy Solu-medrol 60mg IV on admission Diphenhydramine 50mg IV q6h prn will repeat solumedrol on 12/11 Her symptoms have improved. will consider tapering her dose on 12/13 (3) Nephrotic range proteinuria: Plan: Suspect hypervolemia more to do with her proteinuria and CKD however than specifically heart failure and will repeat urine Protein/Cr ratio and if > 3 consult nephrology (4) Acute on chronic heart failure with preserved ejection fraction (HFpEF): (5) Hypothyroidism, postablative: Plan: TSH always appears to be elevated, will repeat with AM labs Free T4 usually low normal and may consider increasing her levothyroxine dosing. (6) HTN (hypertension): Plan: Uncontrolled chronically Bumex 1mg IV now, then BID Continue amlodipine and olmesartan and monitor with increased diuresis (7) Type 2 diabetes mellitus with peripheral neuropathy: Plan: Hemoglobin A1C 8.1 earlier this month. No need to repeat this. Consult pharmacy for glycemic control Plan VTE prophylaxis -Lovenox 40 mg subcu daily Diet -low-sodium, type 2 diabetes Disposition - admit to [facility] with telemetry Admission and Anticipated Discharge Date Admission Date: December 10, 2022 Subjective Patient reports feeling much better today. Her rash has improved. Review of Systems Review of Systems: All systems reviewed & are unremarkable except as noted in HPI & below Physical Exam Physical Exam: Constitutional: WD/WN, vitals as above Eyes: + anicteric sclerae; normal pupil size Respiratory: normal respiratory effort; no respiratory distress Auscultation: + crackles (left base); breath sounds present, no diminished lung sounds, no rales, no rhonchi and no wheezes Cardiovascular: Rate/Rhythm: regular rate and regular rhythm Heart Sounds: no murmur Extremities: + pedal edema (3+ b/l LE pitting equal b/l) Gastrointestinal (Abdomen): normal bowel sounds, soft, nontender, no hepatosplenomegaly Skin: Generalized macular papular rash over back and b/l upper extremities, especially over left elbow. Appears less pink. Sparing chest and bilateral lower extremities Neurologic: moves all extremities and awake; not confused Psychiatric: A+Ox3, euthymic affect Results & Data Results & Data ([facility]) Vital Signs (Past 12 Hours) Vital Signs Temp Pulse Resp BP Pulse Ox O2 Del Method O2 Flow Rate 12/12/22 21:45 Nasal Cannula 2 12/12/22 20:07 36.6 C 83 18 193/82 H 95 Nasal Cannula 2 12/12/22 16:22 37.3 C 77 18 179/81 H 95 Nasal Cannula 2 12/12/22 11:18 36.6 C 84 16 180/72 H 93 Nasal Cannula 2 PG Care Time/CCT Total # of Minutes Spent Total Time Spent with Patient: Total time spent is greater than 50% in coordination of care (as documented) at patient's floor/unit and/or counseling patient: Coding Level of Care Code 80753 SUB INP/OBS CARE 3/50MIN Diagnoses Shortness of breath R06.02 Acute maculopapular rash R21 Nephrotic range proteinuria R80.9 Acute on chronic heart failure with preserved ejection fraction (HFpEF) I50.33 Hypothyroidism, postablative E89.0 HTN (hypertension) I10 Hypertension type: essential hypertension Type 2 diabetes mellitus with peripheral neuropathy E11.42 (6) HTN (hypertension) Hypertension type: essential hypertension Qualified Code(s): I10 - Essential (primary) hypertension
[2022-12-13] MEDS: methylPREDNISolone 40 MG in SYRINGE 0 ML IV SCH ×2 (00:50→07:54)
[2022-12-13] MEDS: LEVOTHYROXINE SODIUM 137 MCG TABLET PO SCH (05:16)
[2022-12-13 07:33] LABS: Hematocrit (blood only) 34.8 % (37.0-47.0); Hemoglobin 11.4 g/dl (12.0-16.0); Mean Corpuscular Hgb Conc 32.8 g/dL (32.0-36.0); Mean Corpuscular Volume 82.5 fL (80.0-100.0); Mean Platelet Volume 10.8 fL (9.4-12.4); Platelet Count 281 K/uL (130-400); RDW Coefficient of Variation 14.5 % (11.5-14.5); RDW Standard Deviation 43.3 fL (36.4-46.3); Red Blood Count 4.22 M/uL (4.20-5.40)
[2022-12-13] MEDS: ENOXAPARIN INJ 40 MG/0.4 ML SYR SQ SCH (07:45)
[2022-12-13] MEDS: INSULIN ASPART PER UNIT SC SCH ×4 (07:48→20:14)
[2022-12-13] MEDS: LOSARTAN POTASSIUM 50 MG TAB PO SCH (07:55)
[2022-12-13] MEDS: LANTUS PER UNIT CHARGE SQ SCH (08:07)
[2022-12-13 08:13] LABS: Albumin Globulin Ratio 0.9 (0.9-2); Albumin Level 3.6 gm/dl (3.4-5.0); BUN Creatinine Ratio 41.6 (10-20); Bilirubin,Total 0.3 mg/dl (0.2-1.0); Calcium 8.9 mg/dl (8.5-10.1); Creatinine Clr Calc Pharmacy 65.7 ml/min; Est GFR (Non-African American) 63.8 ml/min; Globulin 3.8 gm/dl (2.5-4.0); Potassium 4.2 mmol/L (3.5-5.1); Total Protein 7.4 gm/dl (6.0-8.3)
[2022-12-13] MEDS: SPIRONOLACTONE 25 MG TAB PO SCH (09:15)
[2022-12-13] MEDS: BUMETANIDE 1 MG TAB PO SCH (09:15)
--- NOTE | 2022-12-13 09:25 | Nephrology Progress Note ---
Date of Service December 13, 2022 Assessment & Plan (1) Nephrotic range proteinuria: Plan: * Proteinuria likely due to DKD. 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 Clinical findings are not consistent with nephrotic syndrome * 01/06 SIEP did not reveal overt monoclonal spike * Recommend continue ARB therpy * Await PLA2R, Hep B and C results * Outpatient follow up w/ Dr. Espino when discharge is anticipated (2) Acute on chronic heart failure with preserved ejection fraction (HFpEF): Plan: * Improved. Patient is now back on Bumex 1 mg po qAM * Will require pulmonology follow up regarding loculated pleural effusion. (3) Acute maculopapular rash: Plan: * Hives, possibly related to drug exposure. Improved following steroid therapy (4) Renal cyst, left: Plan: * Imaging reviewed. Repeat US suggested in 6 months * Will need Urology evaluation (consider consultation Wednesday if still hospitalized or schedule outpatient visit) (5) Accelerated hypertension: Plan: * Continue Losartan 100 mg po daily * Will reduce Amlodipine to 2.5 mg daily due to LE swelling * Stop KCl * Increase Spironolactone to 50 mg daily * Continue Bumex 1 mg po qAM Admission and Anticipated Discharge Date Admission Date: December 10, 2022 Subjective Ms. Logan was evaluated in her hospital room this morning. She notes that her breathing has improved. Her hives are fading following steroid therapy Review of Systems Constitutional: no fever Eyes: no problem reported Ear, Nose, Mouth, Throat: no problem reported Respiratory: no cough and no dyspnea Cardiovascular: no chest pain Gastrointestinal: no abdominal pain and no diarrhea/loose stools Genitourinary: no dysuria and no hematuria Integumentary: + rash and + dry skin Physical Exam Constitutional: not in distress Eyes: PERRL, conjunctivae normal, anicteric sclerae ENMT: external ear and nose normal, oropharynx normal Neck: trachea midline, no thyromegaly Respiratory: normal respiratory effort, lungs clear to auscultation Cardiovascular: Rate/Rhythm: regular rate and regular rhythm Extremities: + edema (bilateral LE lymphedema) Gastrointestinal (Abdomen): normal bowel sounds, soft, nontender, no hepatosplenomegaly Neurologic: Speech / Cognition: normal speech and normal cognition Results & Data ([facility]) Vital Signs (Past 12 Hours) Vital Signs Temp Pulse Pulse Resp BP Pulse Ox O2 Del Method 12/13/22 09:03 Nasal Cannula 12/13/22 08:39 36.8 C 81 20 162/81 H 93 Nasal Cannula 12/13/22 07:06 61 12/13/22 03:10 36.4 C L 68 18 181/84 H 97 Nasal Cannula 12/12/22 22:02 67 12/12/22 23:07 36.5 C 75 18 186/83 H 97 Nasal Cannula 12/12/22 21:45 Nasal Cannula O2 Flow Rate 12/13/22 09:03 2 12/13/22 08:39 2 12/13/22 07:06 12/13/22 03:10 2 12/12/22 22:02 12/12/22 23:07 2 12/12/22 21:45 2 Laboratory Results Laboratory Tests 12/10/22 12/12/22 12/12/22 14:26 09:21 09:21 WBC Hgb Hct Plt Count Sodium Potassium Chloride Carbon Dioxide BUN Creatinine Glucose Calcium Albumin Urine Color Urine Appearance Urine Blood Urine RBC (Auto) Protein/Creatinin Ratio 4.6 H Hep Bs Antigen Pending Hepatitis C Ab (EIA) Pending Phospholip A2 Rec IFA Pending Phospholip A2 Rec KIN Pending 12/12/22 12/13/22 12/13/22 14:03 06:17 06:17 WBC 9.20 Hgb 11.4 L Hct 34.8 L Plt Count 281 Sodium 137 Potassium 4.2 Chloride 96 L Carbon Dioxide 35 H BUN 37 H Creatinine 0.89 Glucose 255 H Calcium 8.9 Albumin 3.6 Urine Color Yellow Urine Appearance Clear Urine Blood 1+ H Urine RBC (Auto) 0-4 Protein/Creatinin Ratio Hep Bs Antigen Hepatitis C Ab (EIA) Phospholip A2 Rec IFA Phospholip A2 Rec KIN 01/06 Serum immunofixation: Faint indistinct bands are highlighted by one or more immunofixation reagents. Diagnostic Findings Abd CT 11/26/22:Kidneys: The contrast enhanced kidneys are normal in size and without hydronephrosis. There are bilateral extrarenal pelvises, right larger than left with fullness of the right renal collecting system. The kidneys enhance symmetrically. A 2.7 cm cystic structure in the interpolar left kidney seen on image #228 likely represents a cyst but is new from 2007. Renal US 11/26/22:No renal calculi or hydronephrosis. 2.4 cm cyst of the interpolar left kidney with equivocal area of mural nodularity. 6 month follow- up renal ultrasound recommended. Echocardiogram 09/08: LVEF 55-60%,mild LVH, mild MR, normal RV function, moderately dilated IVC, grade I diastolic dysfunction PG Care Time/CCT Total # of Minutes Spent Total Time Spent with Patient: Total time spent is greater than 50% in coordination of care (as documented) at patient's floor/unit and/or counseling patient: Coding Level of Care Code 51648 SUB INP/OBS CARE 3/50MIN Diagnoses Nephrotic range proteinuria R80.9 Acute on chronic heart failure with preserved ejection fraction (HFpEF) I50.33 Acute maculopapular rash R21 Renal cyst, left N28.1 Accelerated hypertension I10
--- NOTE | 2022-12-13 14:23 | Pharmacy Report ---
Pharmacy Glycemic Short Note 2 - Date of Service December 13, 2022 - Glycemic Short BSG Results (Last 24 hours): 12/12/22 12/12/22 12/13/22 16:29 20:43 06:17 Glucose 255 H POC Glucose 209 H 231 H 12/13/22 12/13/22 07:44 11:26 Glucose POC Glucose 242 H 204 H OUTPATIENT ANTIDIABETIC REGIMEN: * Levemir 30 units SC daily * HbA1c: 8.1% (11/28/22) ASSESSMENT: 12/13: * Patient received total basal dose of 40 units and bolus 33 units. * BSGs were all elevated yesterday above 200 mg/dl. Fasting BSG was 242 mg/dl this morning. * She was on IV Solu-Medrol 40 mg q8h. * Lantus 30 units was given today AM and Novolog parameters were tightened to stress of 3. * Pre-lunch BSG trending down. IV Solu-medrol was cut back to once daily. Therefore, HS Lantus dose was discontinued. Novolog parameters loosened with dinner. 12/11 * Fasting BSG elevated at 201 mg/dL. I suspect improvement over the next 24 hours given no ongoing steroids. * BSG is trending down at lunch. No changes to novolog order today. 12/10 * 76 yo F admitted secondary to shortness of breath. Pharmacy has been consulted to assist with inpatient glycemic management. Patient recently admitted at [facility] from 11/28/22-12/03/22. Will utilize glycemic info from that visit to guide dosing. * Received 60 mg of IV Methylprednisolone in the ED. No further steroid orders. Ordered a type 2 diet. * Given once daily dosing at home will start Lantus 20 units now followed by once daily tomorrow AM. Novolog will be based on weight/stress of 2 for now. PLAN FOR INPATIENT GLYCEMIC CONTROL: * Basal insulin * Lantus 30 units SC daily * Bolus insulin * NovoLog per scale ACHS or Q6hrs while NPO * Goal Range: Low 110 mg/dL - High 140 mg/dL * Correction Factor: 20 mg/dL/unit * Nutritional / Prandial insulin per carb ratio of 1 unit per 7 grams CHO consumed
[2022-12-13] MEDS: amLODIPine BESYLATE 5 MG TAB PO SCH (20:15)
--- NOTE | 2022-12-13 22:10 | Hospitalist Progress Note ---
Date of Service December 13, 2022 Assessment & Plan (1) Shortness of breath: Plan: She reports this is currently resolved with the nebulizer given in the ambulance however she also reports with all of the treatment she had last admission she did not feel she improved. We will switch her Symbicort for budesonide and formoterol nebulizers twice daily while here. Encouraged her to take this as refusing inhaler last time she was here. ?acute worsening due to coughing and vomiting episode associated with rash Steroid given for maculopapular rash may also help with her breathing CXR appears improved from prior although I suspect she can tolerate more diuresis especially while in the hospital and this may also help with her uncontrolled hypertension currently on 2 liters. IMproved on 12/11 will monitor. Patient is not quite at [facility]. reviewed images on 12/12 Continue bumex Nephro increased spironolactone. (2) Acute maculopapular rash: Plan: Suspect this is allergic reaction given extensive history, appears to be limited to back and upper extremities on admission but no clear contact causing allergy Solu-medrol 60mg IV on admission Diphenhydramine 50mg IV q6h prn will titrate solumedrol to daily on 12/13 (3) Nephrotic range proteinuria: Plan: Suspect hypervolemia more to do with her proteinuria and CKD however than specifically heart failure and will repeat urine Protein/Cr ratio and if > 3 consult nephrology (4) Acute on chronic heart failure with preserved ejection fraction (HFpEF): (5) Hypothyroidism, postablative: Plan: TSH always appears to be elevated, will repeat with AM labs Free T4 usually low normal and may consider increasing her levothyroxine dosing. (6) HTN (hypertension): Plan: Uncontrolled chronically Bumex 1mg IV now, then BID Continue amlodipine and olmesartan and monitor with increased diuresis (7) Type 2 diabetes mellitus with peripheral neuropathy: Plan: Hemoglobin A1C 8.1 earlier this month. No need to repeat this. Consult pharmacy for glycemic control Plan VTE prophylaxis -Lovenox 40 mg subcu daily Diet -low-sodium, type 2 diabetes Disposition - admit to [facility] with telemetry Admission and Anticipated Discharge Date Admission Date: December 10, 2022 Subjective 76 yo female reports her rahs has improved. She continues to cough up sputum. She feels her leg swelling has improved. Review of Systems Review of Systems: All systems reviewed & are unremarkable except as noted in HPI & below Physical Exam Physical Exam: Constitutional: WD/WN, vitals as above Eyes: + anicteric sclerae; normal pupil size Respiratory: normal respiratory effort; no respiratory distress Auscultation: + crackles (left base); breath sounds present, no diminished lung sounds, no rales, no rhonchi and no wheezes Cardiovascular: Rate/Rhythm: regular rate and regular rhythm Heart Sounds: no murmur Extremities: + pedal edema (3+ b/l LE pitting equal b/l) Gastrointestinal (Abdomen): normal bowel sounds, soft, nontender, no hepatosplenomegaly Skin: Generalized macular papular rash over back and b/l upper extremities, especially over left elbow. Appears less pink. Sparing chest and bilateral lower extremities Neurologic: moves all extremities and awake; not confused Psychiatric: A+Ox3, euthymic affect Results & Data Results & Data ([facility]) Vital Signs (Past 12 Hours) Vital Signs Temp Pulse Pulse Resp BP Pulse Ox O2 Del Method 12/13/22 21:36 Nasal Cannula 12/13/22 19:20 37.0 C 81 18 182/79 H 97 Nasal Cannula 12/13/22 15:42 36.9 C 67 18 174/74 H 94 Nasal Cannula 12/13/22 15:31 70 12/13/22 11:47 36.9 C 75 20 157/74 H 93 Nasal Cannula O2 Flow Rate 12/13/22 21:36 2 12/13/22 19:20 2 12/13/22 15:42 2 12/13/22 15:31 12/13/22 11:47 2 PG Care Time/CCT Total # of Minutes Spent Total Time Spent with Patient: Total time spent is greater than 50% in coordination of care (as documented) at patient's floor/unit and/or counseling patient: Coding Level of Care Code 94837 SUB INP/OBS CARE 2/35MIN Diagnoses Shortness of breath R06.02 Acute maculopapular rash R21 Nephrotic range proteinuria R80.9 Acute on chronic heart failure with preserved ejection fraction (HFpEF) I50.33 Hypothyroidism, postablative E89.0 HTN (hypertension) I10 Hypertension type: essential hypertension Type 2 diabetes mellitus with peripheral neuropathy E11.42 (6) HTN (hypertension) Hypertension type: essential hypertension Qualified Code(s): I10 - Essential (primary) hypertension
[2022-12-14 00:03] LABS: HBSAG NON-REACTIVE (NON-REACTIVE)
[2022-12-14 02:47] LABS: Hepatitis B Core Antibody IgM NON-REACTIVE (NON-REACTIVE)
[2022-12-14] MEDS: LEVOTHYROXINE SODIUM 137 MCG TABLET PO SCH (06:02)
[2022-12-14 06:19] LABS: Hematocrit (blood only) 36.9 % (37.0-47.0); Hemoglobin 11.8 g/dl (12.0-16.0); Mean Corpuscular Hemoglobin 26.8 pg (25.0-34.0); Mean Corpuscular Volume 83.7 fL (80.0-100.0); Mean Platelet Volume 10.1 fL (9.4-12.4); Platelet Count 284 K/uL (130-400); RDW Coefficient of Variation 14.5 % (11.5-14.5); RDW Standard Deviation 44.1 fL (36.4-46.3); Red Blood Count 4.41 M/uL (4.20-5.40); White Blood Count 10.36 K/ul (4.8-10.8)
[2022-12-14 06:35] LABS: BUN Creatinine Ratio 42.1 (10-20); C Reactive Protein 0.87 mg/dl (0-0.5); Calcium 8.7 mg/dl (8.5-10.1); Creatinine Clr Calc Pharmacy 61.4 ml/min; Est GFR (African American) 68.4 ml/min; Potassium 3.5 mmol/L (3.5-5.1)
[2022-12-14] MEDS: INSULIN ASPART PER UNIT SC SCH ×4 (08:34→20:47)
[2022-12-14] MEDS: LANTUS PER UNIT CHARGE SQ SCH (08:36)
[2022-12-14] MEDS: ENOXAPARIN INJ 40 MG/0.4 ML SYR SQ SCH (08:36)
[2022-12-14] MEDS: LOSARTAN POTASSIUM 50 MG TAB PO SCH (08:37)
--- NOTE | 2022-12-14 08:42 | Nephrology Progress Note ---
Date of Service December 14, 2022 Assessment & Plan (1) Nephrotic range proteinuria: Plan: * Proteinuria likely due to DKD. 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 Clinical findings are not consistent with nephrotic syndrome * 01/06 SIEP did not reveal overt monoclonal spike * Recommend continue ARB therapy * Hepatitis B & C serologies are negative * Await PLA2R * Outpatient follow up w/ Dr. Espino when discharge is anticipated (2) Acute on chronic heart failure with preserved ejection fraction (HFpEF): Plan: * Improved. Patient is now back on Bumex 1 mg po qAM * Will require pulmonology follow up regarding loculated pleural effusion. (3) Acute maculopapular rash: Plan: * Hives, possibly related to drug exposure. Improved following steroid therapy (4) Renal cyst, left: Plan: * Imaging reviewed. Repeat US suggested in 6 months * Will consult Urology for evaluation of nodular cystic lesion (5) Accelerated hypertension: Plan: * Continue Losartan 100 mg po daily * Amlodipine reduced to 2.5 mg daily due to LE swelling * Continue Bumex 1 mg po qAM * Patient declined Spironolactone yesterday. I have encouraged her to take the medication in order to improve BP management and possibly stop Amlodipine. Continue Spironolactone 50 mg po daily Admission and Anticipated Discharge Date Admission Date: December 10, 2022 Subjective Ms. Logan was evaluated in her hospital room this morning. Her breathing has improved and her hives are fading following steroid therapy Review of Systems Constitutional: no fever Eyes: no problem reported Ear, Nose, Mouth, Throat: no problem reported Respiratory: no cough and no dyspnea Cardiovascular: no chest pain Gastrointestinal: no abdominal pain and no diarrhea/loose stools Genitourinary: no dysuria and no hematuria Integumentary: + rash and + dry skin Physical Exam Constitutional: not in distress Eyes: PERRL, conjunctivae normal, anicteric sclerae ENMT: external ear and nose normal, oropharynx normal Neck: trachea midline, no thyromegaly Respiratory: normal respiratory effort, lungs clear to auscultation Cardiovascular: Rate/Rhythm: regular rate and regular rhythm Extremities: + edema (bilateral LE lymphedema) Gastrointestinal (Abdomen): normal bowel sounds, soft, nontender, no hepatosplenomegaly Neurologic: Speech / Cognition: normal speech and normal cognition Results & Data ([facility]) Vital Signs (Past 12 Hours) Vital Signs Temp Pulse Pulse Resp BP Pulse Ox O2 Del Method 12/14/22 07:21 36.6 C 78 20 160/78 H 95 Nasal Cannula 12/14/22 06:01 67 12/14/22 03:39 36.9 C 74 18 176/86 H 96 Nasal Cannula 12/13/22 21:59 73 12/13/22 22:48 36.7 C 73 18 166/84 H 97 Nasal Cannula 12/13/22 21:36 Nasal Cannula O2 Flow Rate 12/14/22 07:21 2 12/14/22 06:01 12/14/22 03:39 2 12/13/22 21:59 12/13/22 22:48 2 12/13/22 21:36 2 Laboratory Results Laboratory Tests 12/14/22 12/14/22 05:40 05:40 WBC 10.36 Hgb 11.8 L Hct 36.9 L Plt Count 284 Sodium 140 Potassium 3.5 Chloride 98 Carbon Dioxide 39 H BUN 40 H Creatinine 0.95 Glucose 130 H Calcium 8.7 Laboratory Tests 12/12/22 12/12/22 09:21 09:21 Hep Bs Antigen NON-REACTIVE Hepatitis C Ab (EIA) NON-REACTIVE Phospholip A2 Rec IFA Pending Phospholip A2 Rec KIN Pending 01/06 Serum immunofixation: Faint indistinct bands are highlighted by one or more immunofixation reagents. Diagnostic Findings Abd CT 11/26/22:Kidneys: The contrast enhanced kidneys are normal in size and without hydronephrosis. There are bilateral extrarenal pelvises, right larger than left with fullness of the right renal collecting system. The kidneys enhan ce symmetrically. A 2.7 cm cystic structure in the interpolar left kidney seen on image #228 likely represents a cyst but is new from 2007. Renal US 11/26/22:No renal calculi or hydronephrosis. 2.4 cm cyst of the interpolar left kidney with equivocal area of mural nodularity. 6 month follow- up renal ultrasound recommended. Echocardiogram 09/08: LVEF 55-60%,mild LVH, mild MR, normal RV function, moderately dilated IVC, grade I diastolic dysfunction PG Care Time/CCT Total # of Minutes Spent Total Time Spent with Patient: Total time spent is greater than 50% in coordination of care (as documented) at patient's floor/unit and/or counseling patient: Coding Level of Care Code 77208 SUB INP/OBS CARE 350MIN Diagnoses Nephrotic range proteinuria R80.9 Acute on chronic heart failure with preserved ejection fraction (HFpEF) I50.33 Acute maculopapular rash R21 Renal cyst, left N28.1 Accelerated hypertension I10
[2022-12-14] MEDS ORDERED: methylPREDNISolone 40 MG in SYRINGE 0 ML IV SCH (09:00)
--- NOTE | 2022-12-14 09:58 | Urology Consultation ---
Date of Consultation December 14, 2022 Assessment & Plan (1) Renal cyst, left: 76-year-old female with multiple comorbidities admitted for rash and worsening shortness of breath secondary to acute on chronic heart failure with preserved ejection fraction and pleural effusion; renal cyst noted incidentally on CT A/P on 11/26/22. Urology consulted for evaluation left renal cyst. Her history, hospital course, and imaging reviewed. She is afebrile, hypertensive, but hemodynamically stable. Lab work reviewedcreatinine 0.95, WBC 10.36, hemoglobin 11.8. CT and renal ultrasound imaging independently reviewed and reviewed with Dr. Addison. CT A/P with IV contrast on 11/26/2022 notable for a 2.7 cm interpolar cyst of left kidney. Follow-up Renal U/S showed a 2.4 cm cyst of the interpolar left kidney with equivocal area of mural nodularity. Discussed findings with patient. No acute intervention indicated at this time. Discussed recommendation for dedicated renal CT or MRI in the next 2-3 months with outpatient follow-up with urology. Will coordinate outpatient imaging and follow-up with our service. She is agreeable to the plan, all questions answered. Upon chart review, multiple UAs with microscopy on chart noting microscopic hematuria. Consider cystoscopy in follow-up for completion of hematuria work-up. Gu will sign off. Please contact our service with any additional questions or concerns. History of Present Illness Attending Physician: Yaw Silver History of Present Illness 76-year-old female with past medical history of COPD, heart failure with preserved ejection fraction, type 2 diabetes, dyslipidemia, lymphedema, and accelerated hypertension presented to the ED on 12/10/2022 with worsening shortness of breath and diffuse rash. She was recently admitted to [facility] earlier this month with progressive shortness of breath and pleuritic chest pain. Evaluation revealed HFpEF and a loculated pleural effusion. During her work-up she had a CT chest and A/P. CT A/P incidentally noted a left renal cyst. Nephrology following for nephrotic range proteinuria, accelerated hypertension, renal cyst. Urology is consulted for evaluation of left renal cyst. Imaging studies: CT A/P with IV contrast 11/26/22 - The kidneys enhance symmetrically. No hydronephrosis. Bilateral extrarenal pelvis ease, right larger than left with fullness of the right renal collecting system. A 2.7 cm cystic structure in the interpolar left kidney likely represents a cyst but is new from 2007, difficult to characterize due to surrounding contrast. Bladder distention. Renal US 11/26/22 - IMPRESSION: 1. No renal calculi or hydronephrosis. 2. 2.4 cm cyst of the interpolar left kidney with equivocal area of mural nodularity. Today's lab work: creatinine 0.95, WBC 10.36, Hgb 11.8; Blood cultures 12/10/22 - no growth to date UA on admission showed 3+ Protein, 1+ glucose 1+ blood, 0-4 RBC/hpf, >30 epithelials, negative bacteria UA on 12/10/2022 showed 3+ protein, 1+ glucose, trace ketones, 2+ blood, 10-30 RBC/hpf, 5-10 epithelials, negative bacteria Patient seen and examined at bedside this morning. She is awake, alert and sitting up in bedside chair. Female external catheter in place draining clear yellow urine. She denies suprapubic or flank pain. No dysuria or gross hematuria. No nausea or vomiting. No fever or chills. She has ambulatory dysfunction and uses a wheelchair. She is independent at home and transfers herself to toilet. She denies family history of malignancy. She reports she saw a urologist many years ago after getting due to UTIs. No recent issues with UTIs. No additional concerns today. Allergies Allergy/AdvReac Type Severity Reaction Status Date / Time aspirin Allergy Severe HIVES; Verified 12/10/22 14:52 DIFFICULTY BREATHING colchicine Allergy Severe Difficulty Verified 12/10/22 14:52 Breathing Benzodiazepines Allergy Mild Unknown Verified 12/10/22 14:52 doxycycline Allergy Mild Unknown Verified 12/10/22 14:52 aspartame Allergy Unknown Unknown Verified 12/10/22 14:52 diltiazem Allergy Unknown UNKNOWN Verified 12/10/22 14:52 REACTION melon Allergy Unknown Unknown Verified 12/10/22 14:52 nifedipine Allergy Unknown UNKNOWN Verified 12/10/22 14:52 REACTION simvastatin Allergy Unknown UNKNOWN Verified 12/10/22 14:52 REACTION PER PT sucralose Allergy Unknown Unknown Verified 12/10/22 14:52 vancomycin Allergy Unknown UNKNOWN Verified 12/10/22 14:52 REACTION Iodinated Contrast Media AdvReac Intermediate Rash Verified 12/10/22 14:52 Home Medications Medication Instructions Recorded Confirmed Type blood sugar diagnostic (OneTouch #100 ea 12/05/20 12/10/22 Rx Verio test strips) lancets 33 gauge (OneTouch Delica #100 ea 01/03/21 12/10/22 History Lancets) pen needle, diabetic 32 gauge x #50 ea 01/03/21 12/10/22 History 1/4" (BD Ultra-Fine Micro Pen Needle) Bed Side Commode #1 ea 08/28/21 12/10/22 Rx amlodipine 5 mg tablet 5 mg PO HS 02/17/22 12/10/22 History olmesartan 40 mg tablet 40 mg PO QDL 02/17/22 12/10/22 History albuterol sulfate 90 mcg/actuation 2 puff inhalation Q6H PRN 06/30/22 12/10/22 Rx aerosol inhaler Shortness Of Breath Or Wheezing #18 grams levothyroxine 137 mcg tablet 137 mcg PO DAILYBB 07/07/22 12/10/22 History blood-glucose meter (OneTouch #1 ea 07/09/22 12/10/22 Rx Verio Meter) albuterol sulfate 0.63 mg/3 mL 0.63 mg (3 mL) inhalation QID PRN 07/20/22 12/10/22 Rx solution for nebulization shortness of breath or wheezing #90 mL doxycycline hyclate 50 mg tablet See Rx Instructions PO .COMPLEX #3 08/28/22 12/10/22 Rx tabs Spacer for Inhaler #1 ea 09/04/22 12/10/22 Rx budesonide-formoterol HFA 80 1 inh inhalation BID #10.2 grams 09/04/22 12/10/22 Rx mcg-4.5 mcg/actuation aerosol inhaler (Symbicort) insulin detemir U-100 100 unit/mL 30 unit (0.3 mL) subcut DAILY #15 10/11/22 12/10/22 Rx (3 mL) subcutaneous pen (Levemir mL FlexTouch U-100 Insulin) bromfenac 0.09 % eye drops 1 drp ophthalmic (eye) DAILY 16 10/30/22 12/10/22 Rx days #1.7 mL inhaler,assist devices,access #1 ea 11/05/22 12/10/22 Rx acetaminophen 500 mg tablet 1,000 mg PO Q8H #30 tabs 12/03/22 12/10/22 Rx (Tylenol Extra Strength) bumetanide 1 mg tablet 1 mg PO DAILY #30 tabs 12/03/22 12/10/22 Rx potassium chloride 20 mEq oral 20 meq PO DAILY #30 ea 12/03/22 12/10/22 Rx packet Patient History Medical History Acute diastolic (congestive) heart failure Ambulatory dysfunction Asthma Cardiac arrest Chest pain CHF exacerbation Chronic edema Chronic respiratory failure with hypoxia, on home O2 therapy Closed right hip fracture Contusion of elbow CSF leak Diabetes mellitus with albuminuria Diastolic heart failure Dyslipidemia Elevated serum globulin level Financial difficulties Gait abnormality History of ectopic History of seizures as a child HTN (hypertension) Hx of papillary thyroid carcinoma Hx of pleurisy Hx of thyroid cancer Hypokalemia Hypomagnesemia Hypothyroidism, postablative Injury of right leg Lower extremity edema Mild intermittent asthma Multiple drug allergies Obstructive pattern present on pulmonary function testing Pleurisy without effusion Pleuritic chest pain Right knee DJD Shakiness Type 2 diabetes mellitus Type 2 diabetes mellitus with peripheral neuropathy Vitamin D deficiency Wheelchair bound Surgical History History of D&C Hx of brain surgery 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) Hx of section Hx of thyroidectomy Family History Father Stroke Mother Dementia Diabetes Sister Macular degeneration Brother Macular degeneration Other TIA (transient ischemic attack) Denies family history of Ovarian cancer Prostate cancer Myocardial infarction Breast cancer Colorectal cancer Social History Smoking Status: Never smoker Second Hand Exposure: No; Hx Alcohol Use: No Hx Substance Use: No Preferred Language: Upper Sorbian Communication Ability: Effective Visual Impairment: No Limitations Hearing Ability: Normal Hr Manager Required: No Beliefs That Will Affect Care: None marital status: / Current Living Situation: Alone Current Living Situation Comment: has family that lives nearby and helps out current occupational status: retired 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 Feels Safe at Home: Yes Safety Concerns: Feels Safe At This Time Childhood Exposure to Second-Hand Smoke: No Dental Care, Regularly: Yes Physical Activity Frequency: Does not Exercise Seatbelt Use: always Sunscreen Use: No Assistive Devices: Lift Chair, Scooter/Electric Scooter and Wheelchair Review of Systems Review of Systems: All systems reviewed & are unremarkable except as noted in HPI & below Physical Exam Constitutional: well developed and well nourished; no acute distress Respiratory: no respiratory distress and no labored breathing O2 via nasal cannula Cardiovascular: B/L lymphedema Gastrointestinal (Abdomen): Inspection/Auscultation: abdomen normal to inspection; abdomen not distended Neurologic: awake Psychiatric: Orientation: alert and oriented x 3 Genitourinary: Purewick intact, clear yellow urine noted Results & Data ([facility]) Vital Signs (Past 12 Hours) Vital Signs Temp Pulse Pulse Resp BP Pulse Ox O2 Del Method 12/14/22 09:47 Nasal Cannula 12/14/22 07:21 36.6 C 78 20 160/78 H 95 Nasal Cannula 12/14/22 06:01 67 12/14/22 03:39 36.9 C 74 18 176/86 H 96 Nasal Cannula 12/13/22 21:59 73 12/13/22 22:48 36.7 C 73 18 166/84 H 97 Nasal Cannula O2 Flow Rate 12/14/22 09:47 2 12/14/22 07:21 2 12/14/22 06:01 12/14/22 03:39 2 12/13/22 21:59 12/13/22 22:48 2 PG Care Time/CCT Total # of Minutes Spent Total Time Spent with Patient: Total time spent is greater than 50% in coordination of care (as documented) at patient's floor/unit and/or counseling patient: Coding Level of Care Code 61833 INT INP/OBS CARE 2/55MIN Diagnoses Renal cyst, left N28.1
[2022-12-14] MEDS: SPIRONOLACTONE 25 MG TAB PO SCH (10:04)
[2022-12-14] MEDS: BUMETANIDE 1 MG TAB PO SCH (10:05)
--- NOTE | 2022-12-14 12:45 | Pharmacy Report ---
Pharmacy Glycemic Short Note 2 - Date of Service December 14, 2022 - Glycemic Short BSG Results (Last 24 hours): 12/13/22 12/13/22 12/14/22 16:25 19:57 05:40 Glucose 130 H POC Glucose 148 H 174 H 12/14/22 12/14/22 07:32 11:25 Glucose POC Glucose 110 H 92 OUTPATIENT ANTIDIABETIC REGIMEN: * Levemir 30 units SC daily * HbA1c: 8.1% (11/28/22) ASSESSMENT: 12/14: * Patient received 65 units of insulin yesterday, 30 of basal, 35 of correctional/prandial * Steroids were reduced to solu-medrol 40 mg IV daily. * Carb ratio changed to 6 with breakfast, loosened parameters with lunch BSG 92 mg/dL * Continue current basal rate (same as home), monitor for reduction 12/13: * Patient received total basal dose of 40 units and bolus 33 units. * BSGs were all elevated yesterday above 200 mg/dl. Fasting BSG was 242 mg/dl this morning. * She was on IV Solu-Medrol 40 mg q8h. * Lantus 30 units was given today AM and Novolog parameters were tightened to stress of 3. * Pre-lunch BSG trending down. IV Solu-medrol was cut back to once daily. Therefore, HS Lantus dose was discontinued. Novolog parameters loosened with dinner. 12/11 * Fasting BSG elevated at 201 mg/dL. I suspect improvement over the next 24 hours given no ongoing steroids. * BSG is trending down at lunch. No changes to novolog order today. 12/10 * 76 yo F admitted secondary to shortness of breath. Pharmacy has been consulted to assist with inpatient glycemic management. Patient recently admitted at [facility] from 11/28/22-12/03/22. Will utilize glycemic info from that visit to guide dosing. * Received 60 mg of IV Methylprednisolone in the ED. No further steroid orders. Ordered a type 2 diet. * Given once daily dosing at home will start Lantus 20 units now followed by once daily tomorrow AM. Novolog will be based on weight/stress of 2 for now. PLAN FOR INPATIENT GLYCEMIC CONTROL: * Basal insulin * Lantus 30 units SC daily * Bolus insulin * NovoLog per scale ACHS or Q6hrs while NPO * Goal Range: Low 110 mg/dL - High 140 mg/dL * Correction Factor: 25 mg/dL/unit * Nutritional / Prandial insulin per carb ratio of 1 unit per 8 grams CHO consumed
--- NOTE | 2022-12-14 16:30 | Hospitalist Progress Note ---
Date of Service December 14, 2022 Assessment & Plan (1) Shortness of breath: Plan: She reports this is currently resolved with the nebulizer given in the ambulance however she also reports with all of the treatment she had last admission she did not feel she improved. We will switch her Symbicort for budesonide and formoterol nebulizers twice daily while here. Encouraged her to take this as refusing inhaler last time she was here. ?acute worsening due to coughing and vomiting episode associated with rash Steroid given for maculopapular rash may also help with her breathing CXR appears improved from prior although I suspect she can tolerate more diuresis especially while in the hospital and this may also help with her uncontrolled hypertension currently on 2 liters. Icontinues to improve. Donnell continue to diurese, given history of COPD will place on incruse in AM Continue bumex Nephro increased spironolactone. (2) Acute maculopapular rash: Plan: Suspect this is allergic reaction given extensive history, appears to be limited to back and upper extremities on admission but no clear contact causing allergy Solu-medrol 60mg IV on admission Diphenhydramine 50mg IV q6h prn will titrate solumedrol to daily on 12/13. will decrease dose on 12/15 (3) Nephrotic range proteinuria: Plan: Suspect hypervolemia more to do with her proteinuria and CKD however than specifically heart failure and will repeat urine Protein/Cr ratio and if > 3 consult nephrology (4) Acute on chronic heart failure with preserved ejection fraction (HFpEF): (5) Hypothyroidism, postablative: Plan: TSH always appears to be elevated, will repeat with AM labs Free T4 usually low normal and may consider increasing her levothyroxine dosing. (6) HTN (hypertension): Plan: Uncontrolled chronically On bumex 1 mg po daily increased aldactone. Patient refused on 12/14 hold amlodipine. (7) Type 2 diabetes mellitus with peripheral neuropathy: Plan: Hemoglobin A1C 8.1 earlier this month. No need to repeat this. Consult pharmacy for glycemic control Plan VTE prophylaxis -Lovenox 40 mg subcu daily Diet -low-sodium, type 2 diabetes Disposition - admit to [facility] with telemetry Admission and Anticipated Discharge Date Admission Date: December 10, 2022 Subjective Patient reports she had a rough night urinating. Patient states she refused her aldactone as she was urinating too much. She staes she will try again tomorrow. Patient states she has been coughing up more sputum. Review of Systems Review of Systems: All systems reviewed & are unremarkable except as noted in HPI & below Physical Exam Physical Exam: Constitutional: WD/WN, vitals as above Eyes: + anicteric sclerae; normal pupil size Respiratory: normal respiratory effort; no respiratory distress Auscultation: + crackles (left base); breath sounds present, no diminished lung sounds, no rales, no rhonchi and no wheezes Cardiovascular: Rate/Rhythm: regular rate and regular rhythm Heart Sounds: no murmur Extremities: + pedal edema (3+ b/l LE pitting equal b/l) Gastrointestinal (Abdomen): normal bowel sounds, soft, nontender, no hepatosplenomegaly Skin: macular pauplar rash appears to have resolved. Sparing chest and bilateral lower extremities Neurologic: moves all extremities and awake; not confused Psychiatric: A+Ox3, euthymic affect Results & Data Results & Data ([facility]) Vital Signs (Past 12 Hours) Vital Signs Temp Pulse Pulse Resp BP BP Pulse Ox 12/14/22 14:14 83 12/14/22 15:14 36.5 C 84 18 145/79 H 93 12/14/22 11:33 36.4 C L 83 20 154/82 H 95 12/14/22 09:47 12/14/22 07:21 36.6 C 78 20 160/78 H 95 12/14/22 06:01 67 O2 Del Method O2 Flow Rate 12/14/22 14:14 12/14/22 15:14 Room Air 12/14/22 11:33 Nasal Cannula 2 12/14/22 09:47 Nasal Cannula 2 12/14/22 07:21 Nasal Cannula 2 12/14/22 06:01 PG Care Time/CCT Total # of Minutes Spent Total Time Spent with Patient: Total time spent is greater than 50% in coordination of care (as documented) at patient's floor/unit and/or counseling patient: Coding Level of Care Code 44417 SUB INP/OBS CARE 3/50MIN Diagnoses Shortness of breath R06.02 Acute maculopapular rash R21 Nephrotic range proteinuria R80.9 Acute on chronic heart failure with preserved ejection fraction (HFpEF) I50.33 Hypothyroidism, postablative E89.0 HTN (hypertension) I10 Hypertension type: essential hypertension Type 2 diabetes mellitus with peripheral neuropathy E11.42 (6) HTN (hypertension) Hypertension type: essential hypertension Qualified Code(s): I10 - Essential (primary) hypertension
[2022-12-14] MEDS: amLODIPine BESYLATE 5 MG TAB PO SCH (20:46)
[2022-12-15] MEDS: LEVOTHYROXINE SODIUM 137 MCG TABLET PO SCH (05:01)
[2022-12-15 06:49] LABS: Hematocrit (blood only) 36.1 % (37.0-47.0); Hemoglobin 11.7 g/dl (12.0-16.0); Mean Corpuscular Hemoglobin 27.1 pg (25.0-34.0); Mean Corpuscular Hgb Conc 32.4 g/dL (32.0-36.0); Mean Corpuscular Volume 83.6 fL (80.0-100.0); Platelet Count 265 K/uL (130-400); RDW Coefficient of Variation 14.5 % (11.5-14.5); Red Blood Count 4.32 M/uL (4.20-5.40); White Blood Count 10.09 K/ul (4.8-10.8)
[2022-12-15 07:20] LABS: Albumin Level 3.4 gm/dl (3.4-5.0); Bilirubin,Total 0.3 mg/dl (0.2-1.0); C Reactive Protein 0.61 mg/dl (0-0.5); Calcium 8.6 mg/dl (8.5-10.1); Creatinine Clr Calc Pharmacy 58.3 ml/min; Est GFR (African American) 64.3 ml/min; Est GFR (Non-African American) 55.5 ml/min; Globulin 3.4 gm/dl (2.5-4.0); Potassium 3.6 mmol/L (3.5-5.1); Total Protein 6.8 gm/dl (6.0-8.3)
--- NOTE | 2022-12-15 08:47 | Nephrology Progress Note ---
Date of Service December 15, 2022 Assessment & Plan (1) Nephrotic range proteinuria: Plan: * Proteinuria likely due to DKD. 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 Clinical findings are not consistent with nephrotic syndrome * 01/06 SIEP did not reveal overt monoclonal spike * Recommend continue ARB therapy * Hepatitis B & C serologies are negative * Await PLA2R * Outpatient follow up w/ Dr. Espino when discharge is anticipated (2) Acute on chronic heart failure with preserved ejection fraction (HFpEF): Plan: * Improved. Continue Bumex 1 mg po qAM * Spironolactone 25 mg po qAM started (3) Acute maculopapular rash: Plan: * Hives, possibly related to drug exposure. Improved following steroid therapy (4) Renal cyst, left: Plan: * Urology consult reviewed. Will need follow up imaging in 2-3 months w/ outpatient follow up (5) Accelerated hypertension: Plan: * Continue Losartan 100 mg po daily * Amlodipine stopped to reduce LE swelling * Continue Bumex 1 mg po qAM * Continue Spironolactone 25 mg qAM Admission and Anticipated Discharge Date Admission Date: December 10, 2022 Subjective Ms. Logan was evaluated in her hospital room this morning. Her breathing has improved and her hives are fading following steroid therapy. She notes that her LE swelling has improved following reduction in Amlodipine dose. She was agreeable to taking Spironolactone 25 mg this morning Review of Systems Constitutional: no fever Eyes: no problem reported Ear, Nose, Mouth, Throat: no problem reported Respiratory: no cough and no dyspnea Cardiovascular: no chest pain Gastrointestinal: no abdominal pain and no diarrhea/loose stools Genitourinary: no dysuria and no hematuria Integumentary: + rash and + dry skin Physical Exam Constitutional: not in distress Eyes: PERRL, conjunctivae normal, anicteric sclerae ENMT: external ear and nose normal, oropharynx normal Neck: trachea midline, no thyromegaly Respiratory: normal respiratory effort, lungs clear to auscultation Cardiovascular: Rate/Rhythm: regular rate and regular rhythm Extremities: + edema (bilateral LE lymphedema) Gastrointestinal (Abdomen): normal bowel sounds, soft, nontender, no hepatosplenomegaly Neurologic: Speech / Cognition: normal speech and normal cognition Results & Data ([facility]) Vital Signs (Past 12 Hours) Vital Signs Temp Pulse Pulse Resp BP BP Pulse Ox 12/15/22 07:14 36.6 C 81 186/88 H 96 12/15/22 04:00 36.8 C 81 18 179/80 H 97 12/14/22 22:02 86 12/14/22 22:50 36.7 C 80 18 150/83 H 95 12/14/22 21:42 O2 Del Method O2 Flow Rate 12/15/22 07:14 Room Air 12/15/22 04:00 Nasal Cannula 2 12/14/22 22:02 12/14/22 22:50 Nasal Cannula 2 12/14/22 21:42 Nasal Cannula 2 Laboratory Results Laboratory Tests 12/12/22 12/12/22 12/15/22 09:21 09:21 06:12 WBC 10.09 Hgb 11.7 L Hct 36.1 L Plt Count 265 Sodium Potassium Chloride Carbon Dioxide BUN Creatinine Glucose Calcium AST ALT Albumin Hep Bs Antigen NON-REACTIVE Hepatitis C Ab (EIA) NON-REACTIVE Phospholip A2 Rec IFA Pending Phospholip A2 Rec KIN Pending 12/15/22 06:12 WBC Hgb Hct Plt Count Sodium 138 Potassium 3.6 Chloride 97 L Carbon Dioxide 38 H BUN 51 H Creatinine 1.00 Glucose 164 H Calcium 8.6 AST 16 ALT 16 Albumin 3.4 Hep Bs Antigen Hepatitis C Ab (EIA) Phospholip A2 Rec IFA Phospholip A2 Rec KIN PG Care Time/CCT Total # of Minutes Spent Total Time Spent with Patient: Total time spent is greater than 50% in coordination of care (as documented) at patient's floor/unit and/or counseling patient: Coding Level of Care Code 74724 SUB INP/OBS CARE 3/50MIN Diagnoses Nephrotic range proteinuria R80.9 Acute on chronic heart failure with preserved ejection fraction (HFpEF) I50.33 Acute maculopapular rash R21 Renal cyst, left N28.1 Accelerated hypertension I10
[2022-12-15] MEDS: LOSARTAN POTASSIUM 50 MG TAB PO SCH (09:09)
[2022-12-15] MEDS: INSULIN ASPART PER UNIT SC SCH ×4 (09:10→20:23)
[2022-12-15] MEDS: SPIRONOLACTONE 25 MG TAB PO SCH (09:10)
[2022-12-15] MEDS: LANTUS PER UNIT CHARGE SQ SCH (09:12)
[2022-12-15] MEDS: BUMETANIDE 1 MG TAB PO SCH (09:12)
[2022-12-15] MEDS: methylPREDNISolone 20 MG in SYRINGE 0 ML IV SCH (09:13)
[2022-12-15] MEDS: ENOXAPARIN INJ 40 MG/0.4 ML SYR SQ SCH (09:43)
[2022-12-15] MEDS: UMECLIDINIUM BROMIDE 62.5MCG/BLISTER 7 PUFFS/INHALER INH SCH (10:00)
--- NOTE | 2022-12-15 13:37 | Pharmacy Report ---
Pharmacy Glycemic Short Note 2 - Date of Service December 15, 2022 - Glycemic Short BSG Results (Last 24 hours): 12/14/22 12/14/22 12/14/22 16:33 16:56 20:16 Glucose POC Glucose 192 H 186 H 219 H 12/15/22 12/15/22 12/15/22 06:12 07:20 11:36 Glucose 164 H POC Glucose 161 H 140 H OUTPATIENT ANTIDIABETIC REGIMEN: * Levemir 30 units SC daily * HbA1c: 8.1% (11/28/22) ASSESSMENT: 12/15: * Patient's BSGs trended up after loosened carb ratio, will tighten back to 7 * Continue current basal rate, may need increase if fasting further up trend * Methylpred reduced to 20 mg 12/14: * Patient received 65 units of insulin yesterday, 30 of basal, 35 of correctional/prandial * Steroids were reduced to solu-medrol 40 mg IV daily. * Carb ratio changed to 6 with breakfast, loosened parameters with lunch BSG 92 mg/dL * Continue current basal rate (same as home), monitor for reduction 12/13: * Patient received total basal dose of 40 units and bolus 33 units. * BSGs were all elevated yesterday above 200 mg/dl. Fasting BSG was 242 mg/dl this morning. * She was on IV Solu-Medrol 40 mg q8h. * Lantus 30 units was given today AM and Novolog parameters were tightened to stress of 3. * Pre-lunch BSG trending down. IV Solu-medrol was cut back to once daily. Therefore, HS Lantus dose was discontinued. Novolog parameters loosened with dinner. 12/11 * Fasting BSG elevated at 201 mg/dL. I suspect improvement over the next 24 hours given no ongoing steroids. * BSG is trending down at lunch. No changes to novolog order today. 12/10 * 76 yo F admitted secondary to shortness of breath. Pharmacy has been consulted to assist with inpatient glycemic management. Patient recently admitted at [facility] from 11/28/22-12/03/22. Will utilize glycemic info from that visit to guide dosing. * Received 60 mg of IV Methylprednisolone in the ED. No further steroid orders. Ordered a type 2 diet. * Given once daily dosing at home will start Lantus 20 units now followed by once daily tomorrow AM. Novolog will be based on weight/stress of 2 for now. PLAN FOR INPATIENT GLYCEMIC CONTROL: * Basal insulin * Lantus 30 units SC daily * Bolus insulin * NovoLog per scale ACHS or Q6hrs while NPO * Goal Range: Low 110 mg/dL - High 140 mg/dL * Correction Factor: 20 mg/dL/unit * Nutritional / Prandial insulin per carb ratio of 1 unit per 7 grams CHO consumed
--- NOTE | 2022-12-15 14:37 | Hospitalist Progress Note ---
Date of Service December 15, 2022 Assessment & Plan (1) Shortness of breath: Plan: She reports this is currently resolved with the nebulizer given in the ambulance however she also reports with all of the treatment she had last admission she did not feel she improved. We will switch her Symbicort for budesonide and formoterol nebulizers twice daily while here. Encouraged her to take this as refusing inhaler last time she was here. ?acute worsening due to coughing and vomiting episode associated with rash Steroid given for maculopapular rash may also help with her breathing CXR appears improved from prior although I suspect she can tolerate more diuresis especially while in the hospital and this may also help with her uncontrolled hypertension currently on 2 liters. will continue diuretics, patient appears to be getting more alkalotic. given history of COPD: incruse was started on patient Continue bumex and spironolactone. (2) Acute maculopapular rash: Plan: Suspect this is allergic reaction given extensive history, appears to be limited to back and upper extremities on admission but no clear contact causing allergy Solu-medrol 60mg IV on admission Diphenhydramine 50mg IV q6h prn will titrate solumedrol to 40 mg daily on 12/13. will decrease dose to 20 mg daily on 12/15 (3) Nephrotic range proteinuria: Plan: Suspect hypervolemia more to do with her proteinuria and CKD however than specifically heart failure and will repeat urine Protein/Cr ratio and if > 3 consult nephrology (4) Acute on chronic heart failure with preserved ejection fraction (HFpEF): (5) Hypothyroidism, postablative: Plan: TSH always appears to be elevated, will repeat with AM labs Free T4 usually low normal and may consider increasing her levothyroxine dosing. (6) HTN (hypertension): Plan: Uncontrolled chronically On bumex 1 mg po daily continue aldactone on 12/15 may consider cutting back amlodipine on 12/16 (7) Type 2 diabetes mellitus with peripheral neuropathy: Plan: Hemoglobin A1C 8.1 earlier this month. No need to repeat this. Consult pharmacy for glycemic control Plan VTE prophylaxis -Lovenox 40 mg subcu daily Diet -low-sodium, type 2 diabetes Disposition - admit to [facility] with telemetry Admission and Anticipated Discharge Date Admission Date: December 10, 2022 Subjective Patient had questions about her potassium. Patient reports her left sided chest pain returned. She states she took her 25 mg of aldactone today. She reports she is able to move around in her home in her motorized wheelchair, she is able to pivot from her chair to the toilet. Patient reports her children live in cities. She reports she is able to drive her self to appointments, but has not been able to due to her vision. Review of Systems Review of Systems: All systems reviewed & are unremarkable except as noted in HPI & below Physical Exam Physical Exam: Constitutional: WD/WN, vitals as above Eyes: + anicteric sclerae; normal pupil size Respiratory: normal respiratory effort; no respiratory distress Auscultation: + decreased crackles (left base); breath sounds present, no diminished lung sounds, no rales, no rhonchi and no wheezes Cardiovascular: Rate/Rhythm: regular rate and regular rhythm Heart Sounds: no murmur Extremities: + pedal edema (3+ b/l LE pitting equal b/l) Gastrointestinal (Abdomen): normal bowel sounds, soft, nontender, no hepatosplenomegaly Skin: macular papular rash appears to have resolved. Sparing chest and bilateral lower extremities Neurologic: moves all extremities and awake; not confused Psychiatric: A+Ox3, euthymic affect Results & Data Results & Data ([facility]) Vital Signs (Past 12 Hours) Vital Signs Temp Pulse Resp BP BP Pulse Ox O2 Del Method 12/15/22 10:03 94 Nasal Cannula 12/15/22 10:00 84 L Room Air 12/15/22 11:25 36.6 C 86 146/71 H 95 Nasal Cannula 12/15/22 10:36 151/73 H 12/15/22 10:31 Nasal Cannula 12/15/22 07:14 36.6 C 81 186/88 H 96 Room Air 12/15/22 04:00 36.8 C 81 18 179/80 H 97 Nasal Cannula O2 Flow Rate 12/15/22 10:03 2 12/15/22 10:00 12/15/22 11:25 2 12/15/22 10:36 12/15/22 10:31 2 12/15/22 07:14 12/15/22 04:00 2 PG Care Time/CCT Total # of Minutes Spent Total Time Spent with Patient: Total time spent is greater than 50% in coordination of care (as documented) at patient's floor/unit and/or counseling patient: Coding Level of Care Code 00360 SUB INP/OBS CARE 3/50MIN Diagnoses Shortness of breath R06.02 Acute maculopapular rash R21 Nephrotic range proteinuria R80.9 Acute on chronic heart failure with preserved ejection fraction (HFpEF) I50.33 Hypothyroidism, postablative E89.0 HTN (hypertension) I10 Hypertension type: essential hypertension Type 2 diabetes mellitus with peripheral neuropathy E11.42 (6) HTN (hypertension) Hypertension type: essential hypertension Qualified Code(s): I10 - Essential (primary) hypertension
[2022-12-16] MEDS: LEVOTHYROXINE SODIUM 137 MCG TABLET PO SCH (05:31)
[2022-12-16 06:30] LABS: HCO3 VBG 41 mmol/L; Oxygen Saturation VBG 97.9 %; PCO2 VBG 64 mmHg (38-50); PO2 VBG 85 mmHg; pH VBG 7.41 (7.36-7.41)
[2022-12-16 07:00] LABS: Albumin Globulin Ratio 0.9 (0.9-2); Albumin Level 3.2 gm/dl (3.4-5.0); BUN Creatinine Ratio 51.7 (10-20); Bilirubin,Total 0.3 mg/dl (0.2-1.0); C Reactive Protein 1.03 mg/dl (0-0.5); Calcium 8.7 mg/dl (8.5-10.1); Creatinine Clr Calc Pharmacy 67.1 ml/min; Est GFR (African American) 76.1 ml/min; Est GFR (Non-African American) 65.6 ml/min; Globulin 3.6 gm/dl (2.5-4.0); Total Protein 6.8 gm/dl (6.0-8.3)
--- NOTE | 2022-12-16 08:44 | Nephrology Progress Note ---
Date of Service December 16, 2022 Assessment & Plan (1) Nephrotic range proteinuria: Plan: * Proteinuria likely due to DKD. 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 Clinical findings are not consistent with nephrotic syndrome * 01/06 SIEP did not reveal overt monoclonal spike * Recommend continue ARB therapy * Hepatitis B & C serologies are negative * Await PLA2R * Outpatient follow up w/ Dr. Espino when discharge is anticipated (2) Acute on chronic heart failure with preserved ejection fraction (HFpEF): Plan: * Pretibial edema is markedly improved off Amlodipine and with loop diuretic therapy * Patient has urinary frequency. Will reduce Bumex to 0.5 mg po qAM * Continue Losartan 100 mg daily * Encouraged patient to take Spironolactone 25 mg po qAM for BP control (3) Acute maculopapular rash: Plan: * Hives, possibly related to drug exposure. Improved following steroid therapy (4) Renal cyst, left: Plan: * Urology consult reviewed. Will need follow up imaging in 2-3 months w/ outpatient follow up (5) Accelerated hypertension: Plan: * Continue Losartan 100 mg po daily * Amlodipine stopped to reduce LE swelling * Bumex reduced to 0.5 mg po qAM due to urinary frequency * Continue Spironolactone 25 mg qAM Admission and Anticipated Discharge Date Admission Date: December 10, 2022 Subjective Ms. Logan was evaluated in her hospital room this morning. Her breathing has improved and her hives have resolved following steroid therapy. Ms. Logan c/o urinary frequency and declined her Spironolactone this morning. She does note that her LE swelling is markedly improved Review of Systems Constitutional: no fever Eyes: no problem reported Ear, Nose, Mouth, Throat: no problem reported Respiratory: no cough and no dyspnea Cardiovascular: no chest pain Gastrointestinal: no abdominal pain and no diarrhea/loose stools Genitourinary: no dysuria and no hematuria Integumentary: + rash and + dry skin Physical Exam Constitutional: not in distress Eyes: PERRL, conjunctivae normal, anicteric sclerae ENMT: external ear and nose normal, oropharynx normal Neck: trachea midline, no thyromegaly Respiratory: normal respiratory effort, lungs clear to auscultation Cardiovascular: Rate/Rhythm: regular rate and regular rhythm Extremities: + edema (1+ ankle edema. Pretibial edema has resolved) Gastrointestinal (Abdomen): normal bowel sounds, soft, nontender, no hepatosplenomegaly Neurologic: Speech / Cognition: normal speech and normal cognition Results & Data ([facility]) Vital Signs (Past 12 Hours) Vital Signs Temp Pulse Pulse Resp BP Pulse Ox O2 Del Method 12/16/22 07:30 36.6 C 81 16 185/82 H 99 Nasal Cannula 12/16/22 08:10 74 12/16/22 05:06 36.9 C 79 18 176/82 H 94 Nasal Cannula 12/15/22 23:44 Nasal Cannula 12/15/22 22:40 36.7 C 79 18 182/83 H 96 Nasal Cannula O2 Flow Rate 12/16/22 07:30 2 12/16/22 08:10 12/16/22 05:06 2 12/15/22 23:44 2 12/15/22 22:40 2 Laboratory Results Laboratory Tests 12/12/22 12/16/22 09:21 06:04 Sodium 139 Potassium 4.0 Chloride 100 Carbon Dioxide 37 H BUN 45 H Creatinine 0.87 Glucose 154 H Phospholip A2 Rec IFA Pending Phospholip A2 Rec KIN Pending PG Care Time/CCT Total # of Minutes Spent Total Time Spent with Patient: Total time spent is greater than 50% in coordination of care (as documented) at patient's floor/unit and/or counseling patient: Coding Level of Care Code 32185 SUB INP/OBS CARE 3/50MIN Diagnoses Nephrotic range proteinuria R80.9 Acute on chronic heart failure with preserved ejection fraction (HFpEF) I50.33 Acute maculopapular rash R21 Renal cyst, left N28.1 Accelerated hypertension I10
[2022-12-16] MEDS: BUMETANIDE 1 MG TAB PO SCH (09:22)
[2022-12-16] MEDS: UMECLIDINIUM BROMIDE 62.5MCG/BLISTER 7 PUFFS/INHALER INH SCH (09:23)
[2022-12-16] MEDS: methylPREDNISolone 20 MG in SYRINGE 0 ML IV SCH (09:23)
[2022-12-16] MEDS: LOSARTAN POTASSIUM 50 MG TAB PO SCH (09:23)
[2022-12-16] MEDS: INSULIN ASPART PER UNIT SC SCH ×4 (09:24→20:05)
[2022-12-16] MEDS: ENOXAPARIN INJ 40 MG/0.4 ML SYR SQ SCH (09:28)
[2022-12-16] MEDS: SPIRONOLACTONE 25 MG TAB PO SCH (09:30)
[2022-12-16] MEDS: LANTUS PER UNIT CHARGE SQ SCH (09:35)
[2022-12-16] MEDS ORDERED: LEVALBUTEROL HCL 1.25 MG/3 ML NEB NEB STA (10:57)
--- NOTE | 2022-12-16 17:55 | XRay Report ---
XR chest 2V PA/lateral CLINICAL HISTORY: Cough. COMPARISON STUDY: Chest radiograph December 12, [address] November 26, 2022 FINDINGS: There is no pneumothorax. Small left pleural effusion with left basilar opacity is again no rubina. Cardiomediastinal silhouette is stable. Interstitial thickening has mildly progressed. IMPRESSION: 1. No change in a small left pleural effusion with left basilar opacity. 2. Interstitial thickening. This favors pulmonary vascular congestion with possible mild pulmonary ed saulo. ACT 112: Negative or not required by law. Electronically signed by: Vicente Shrestha M.D. 12/16/2022 5:53 PM
[2022-12-16] MEDS: SODIUM CHLOR 7% 4 ML NEB NEB SCH (19:21)
--- NOTE | 2022-12-16 21:47 | Hospitalist Progress Note ---
Date of Service December 16, 2022 Assessment & Plan (1) Shortness of breath: Plan: She reports this is currently resolved with the nebulizer given in the ambulance however she also reports with all of the treatment she had last admission she did not feel she improved. We will switch her Symbicort for budesonide and formoterol nebulizers twice daily while here. Encouraged her to take this as refusing inhaler last time she was here. ?acute worsening due to coughing and vomiting episode associated with rash Steroid given for maculopapular rash may also help with her breathing CXR appears improved from prior although I suspect she can tolerate more diuresis especially while in the hospital and this may also help with her uncontrolled hypertension currently on 2 liters. will continue diuretics: bumex and spironolactone However, patient has been refusing spironolactone. Received only one dose. patient appears to be getting more alkalotic. Bumex cut down to 0.5 mg given history of COPD: incruse was started on patient during stay (2) Acute maculopapular rash: Plan: Suspect this is allergic reaction given extensive history, appears to be limited to back and upper extremities on admission but no clear contact causing allergy Solu-medrol 60mg IV on admission Diphenhydramine 50mg IV q6h prn will titrate solumedrol to 40 mg daily on 12/13. will decrease dose to 20 mg daily on 12/15 will titrate to 10 mg of prednisone in AM (3) Nephrotic range proteinuria: Plan: Suspect hypervolemia more to do with her proteinuria and CKD however than specifically heart failure and will repeat urine Protein/Cr ratio and if > 3 consult nephrology (4) Acute on chronic heart failure with preserved ejection fraction (HFpEF): (5) Hypothyroidism, postablative: Plan: TSH always appears to be elevated, will repeat with AM labs Free T4 usually low normal and may consider increasing her levothyroxine dosing. (6) HTN (hypertension): Plan: Uncontrolled chronically On bumex 1 mg po daily continue aldactone on 12/15 stopped amlodipine on 12/16 (7) Type 2 diabetes mellitus with peripheral neuropathy: Plan: Hemoglobin A1C 8.1 earlier this month. No need to repeat this. Consult pharmacy for glycemic control Plan VTE prophylaxis -Lovenox 40 mg subcu daily Diet -low-sodium, type 2 diabetes Disposition - admit to [facility] with telemetry Admission and Anticipated Discharge Date Admission Date: December 10, 2022 Subjective Patient continues to feel a cough today. Patient reports she does not feel ready for discharge today. Review of Systems Review of Systems: All systems reviewed & are unremarkable except as noted in HPI & below Physical Exam Physical Exam: Constitutional: WD/WN, vitals as above Eyes: + anicteric sclerae; normal pupil size Respiratory: normal respiratory effort; no respiratory distress Auscultation: + decreased crackles (left base); breath sounds present, no diminished lung sounds, no rales, no rhonchi and no wheezes Cardiovascular: Rate/Rhythm: regular rate and regular rhythm Heart Sounds: no murmur Extremities: + pedal edema (3+ b/l LE pitting equal b/l) Gastrointestinal (Abdomen): normal bowel sounds, soft, nontender, no hepatosp lenomegaly Skin: macular papular rash appears to have resolved. Sparing chest and bilateral lower extremities Neurologic: moves all extremities and awake; not confused Psychiatric: A+Ox3, euthymic affect Results & Data Results & Data ([facility]) Vital Signs (Past 12 Hours) Vital Signs Temp Pulse Pulse Resp BP Pulse Ox O2 Del Method 12/16/22 19:49 Nasal Cannula 12/16/22 19:37 36.6 C 94 H 18 178/82 H 93 Nasal Cannula 12/16/22 19:21 20 96 Nasal Cannula 12/16/22 16:16 84 12/16/22 15:36 37.0 C 80 20 136/70 96 Nasal Cannula 12/16/22 11:45 36.5 C 81 20 160/79 H 97 Room Air 12/16/22 11:07 36.5 C 84 18 157/75 H 94 Nasal Cannula 12/16/22 11:26 80 20 99 Nasal Cannula O2 Flow Rate 12/16/22 19:49 2 12/16/22 19:37 2 12/16/22 19:21 1 12/16/22 16:16 12/16/22 15:36 2 12/16/22 11:45 12/16/22 11:07 2 12/16/22 11:26 2 PG Care Time/CCT Total # of Minutes Spent Total Time Spent with Patient: Total time spent is greater than 50% in coordination of care (as documented) at patient's floor/unit and/or counseling patient: Coding Level of Care Code 97122 SUB INP/OBS CARE 3/50MIN Diagnoses Shortness of breath R06.02 Acute maculopapular rash R21 Nephrotic range proteinuria R80.9 Acute on chronic heart failure with preserved ejection fraction (HFpEF) I50.33 Hypothyroidism, postablative E89.0 HTN (hypertension) I10 Hypertension type: essential hypertension Type 2 diabetes mellitus with peripheral neuropathy E11.42 (6) HTN (hypertension) Hypertension type: essential hypertension Qualified Code(s): I10 - Essential (primary) hypertension
[2022-12-17] MEDS: LEVOTHYROXINE SODIUM 137 MCG TABLET PO SCH (06:11)
[2022-12-17] MEDS: SODIUM CHLOR 7% 4 ML NEB NEB SCH (06:56)
[2022-12-17 07:14] LABS: Hematocrit (blood only) 36.2 % (37.0-47.0); Hemoglobin 11.5 g/dl (12.0-16.0); Mean Corpuscular Hemoglobin 26.8 pg (25.0-34.0); Mean Corpuscular Hgb Conc 31.8 g/dL (32.0-36.0); Mean Corpuscular Volume 84.4 fL (80.0-100.0); Mean Platelet Volume 10.4 fL (9.4-12.4); Platelet Count 250 K/uL (130-400); RDW Coefficient of Variation 14.7 % (11.5-14.5); RDW Standard Deviation 45.2 fL (36.4-46.3); Red Blood Count 4.29 M/uL (4.20-5.40); White Blood Count 10.76 K/ul (4.8-10.8)
[2022-12-17 07:37] LABS: BUN Creatinine Ratio 50.6 (10-20); Calcium 8.9 mg/dl (8.5-10.1); Creatinine Clr Calc Pharmacy 68.9 ml/min; Est GFR (African American) 76.1 ml/min; Est GFR (Non-African American) 65.6 ml/min; Potassium 4.2 mmol/L (3.5-5.1)
--- NOTE | 2022-12-17 08:46 | Hospitalist Progress Note ---
Date of Service December 17, 2022 Assessment & Plan (1) Shortness of breath: Plan: Acute serious risk requires persistent oxygen supplementation continues on Symbicort for budesonide and formoterol nebulizers twice daily while here. Encouraged her to take this as refusing inhaler last time she was here. given history of COPD: incruse was started on patient during stay Steroid given for maculopapular rash may also help with her breathing Patient also has acute diastolic heart failure HFpEF l continue diuretics: bumex and spironolactone, Bumex dose has been reduced patient has been refusing spironolactone. (2) Acute maculopapular rash: Plan: Acute and self-limitedimproving suspect this is allergic reaction given extensive history, Solu-medrol transition to to 10 mg of prednisone in AM (3) Nephrotic range proteinuria: Plan: Suspect hypervolemia more to do with her proteinuria and CKD 3 Nephrology recommends continuation of ARB follow-up with Dr. Espino as outpatient (4) Acute on chronic heart failure with preserved ejection fraction (HFpEF): Plan: Patient has mild changes seen on chest x-ray from 12/16/2022 continue diuretic therapy (5) Hypothyroidism, postablative: Plan: Chronic stable continue home treatment TSH always appears to be elevated, will repeat with AM labs Free T4 usually low normal and may consider increasing her levothyroxine dosing. (6) HTN (hypertension): Plan: Uncontrolled chronically On bumex 1 mg po daily continue aldactone on 12/15 stopped amlodipine on 12/16 (7) Type 2 diabetes mellitus with peripheral neuropathy: Plan: Hemoglobin A1C 8.1 earlier this month. No need to repeat this. Consult pharmacy for glycemic control Has a role in diabetic kidney disease and proteinuria Plan VTE prophylaxis -Lovenox 40 mg subcu daily Diet -low-sodium, type 2 diabetes Disposition - admit to [facility] with telemetry Admission and Anticipated Discharge Date Admission Date: December 10, 2022 Results & Data Results & Data ([facility]) Vital Signs (Past 12 Hours) Vital Signs Temp Pulse Pulse Resp BP BP Pulse Ox 12/17/22 08:01 97.9 F 82 18 187/84 H 95 12/17/22 03:06 97.7 F 79 18 199/88 H 95 12/16/22 23:05 87 12/16/22 22:53 98.1 F 86 18 176/80 H 95 O2 Del Method O2 Flow Rate 12/17/22 08:01 Nasal Cannula 2 12/17/22 03:06 Nasal Cannula 2 12/16/22 23:05 12/16/22 22:53 Nasal Cannula 2 Laboratory Results Reviewed CBC Reviewed PRP PG Care Time/CCT Total # of Minutes Spent Total Time Spent with Patient: Total time spent is greater than 50% in coordination of care (as documented) at patient's floor/unit and/or counseling patient: Coding Diagnoses Shortness of breath R06.02 Acute maculopapular rash R21 Nephrotic range proteinuria R80.9 Acute on chronic heart failure with preserved ejection fraction (HFpEF) I50.33 Hypothyroidism, postablative E89.0 HTN (hypertension) I10 Hypertension type: essential hypertension Type 2 diabetes mellitus with peripheral neuropathy E11.42 (6) HTN (hypertension) Hypertension type: essential hypertension Qualified Code(s): I10 - Essential (primary) hypertension
--- NOTE | 2022-12-17 08:57 | Nephrology Progress Note ---
Date of Service December 17, 2022 Assessment & Plan (1) Nephrotic range proteinuria: Plan: * Proteinuria likely due to DKD. 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 Clinical findings are not consistent with nephrotic syndrome * 01/06 SIEP did not reveal overt monoclonal spike * Recommend continue ARB therapy * Hepatitis B & C serologies are negative * Await PLA2R * Outpatient follow up w/ Dr. Espino when discharge is anticipated (2) Acute on chronic heart failure with preserved ejection fraction (HFpEF): Plan: * Pretibial edema is markedly improved off Amlodipine and with loop diuretic therapy * Bumex dose reduced to 0.5 mg po qAM due to LE swelling * Continue Losartan 100 mg daily * Encouraged patient to take Spironolactone 25 mg po qAM for BP control (3) Acute maculopapular rash: Plan: * Hives, possibly related to drug exposure. Improved following steroid therapy (4) Renal cyst, left: Plan: * Urology consult reviewed. Will need follow up imaging in 2-3 months w/ outpatient follow up (5) Accelerated hypertension: Plan: * Continue Losartan 100 mg po daily * Amlodipine stopped to reduce LE swelling * Bumex reduced to 0.5 mg po qAM due to urinary frequency * Continue Spironolactone 25 mg qAM Admission and Anticipated Discharge Date Admission Date: December 10, 2022 Subjective Ms. Logan was evaluated in her hospital room this morning. Her breathing has improved and her hives have resolved following steroid therapy. Ms. Logan c/o urinary frequency. Her Bumex dose was reduced this morning. She does note that her LE swelling is markedly improved Review of Systems Constitutional: no fever Eyes: no problem reported Ear, Nose, Mouth, Throat: no problem reported Respiratory: no cough and no dyspnea Cardiovascular: no chest pain Gastrointestinal: no abdominal pain and no diarrhea/loose stools Genitourinary: no dysuria and no hematuria Integumentary: + rash and + dry skin Physical Exam Constitutional: not in distress Eyes: PERRL, conjunctivae normal, anicteric sclerae ENMT: external ear and nose normal, oropharynx normal Neck: trachea midline, no thyromegaly Respiratory: normal respiratory effort, lungs clear to auscultation Cardiovascular: Rate/Rhythm: regular rate and regular rhythm Extremities: + edema (1+ ankle edema. Pretibial edema has resolved) Gastrointestinal (Abdomen): normal bowel sounds, soft, nontender, no hepatosplenomegaly Neurologic: Speech / Cognition: normal speech and normal cognition Results & Data ([facility]) Vital Signs (Past 12 Hours) Vital Signs Temp Pulse Pulse Resp BP BP Pulse Ox 12/17/22 08:01 36.6 C 82 18 187/84 H 95 12/17/22 03:06 36.5 C 79 18 199/88 H 95 12/16/22 23:05 87 12/16/22 22:53 36.7 C 86 18 176/80 H 95 O2 Del Method O2 Flow Rate 12/17/22 08:01 Nasal Cannula 2 12/17/22 03:06 Nasal Cannula 2 12/16/22 23:05 12/16/22 22:53 Nasal Cannula 2 Laboratory Results Laboratory Tests 12/16/22 12/17/22 12/17/22 06:04 06:26 06:26 WBC 10.76 Hgb 11.5 L Hct 36.2 L Plt Count 250 Sodium 138 Potassium 4.2 Chloride 99 Carbon Dioxide 36 H BUN 44 H Creatinine 0.87 Glucose 182 H Albumin 3.2 L Laboratory Tests 12/12/22 09:21 Phospholip A2 Rec IFA Pending Phospholip A2 Rec KIN Pending PG Care Time/CCT Total # of Minutes Spent Total Time Spent with Patient: Total time spent is greater than 50% in coordination of care (as documented) at patient's floor/unit and/or counseling patient: Coding Level of Care Code 75446 SUB INP/OBS CARE 3/50MIN Diagnoses Nephrotic range proteinuria R80.9 Acute on chronic heart failure with preserved ejection fraction (HFpEF) I50.33 Acute maculopapular rash R21 Renal cyst, left N28.1 Accelerated hypertension I10
[2022-12-17] MEDS ORDERED: predniSONE 10 MG TABLET PO SCH (09:00)
[2022-12-17] MEDS ORDERED: BUMETANIDE 1 MG TAB PO SCH (09:00)
[2022-12-17] MEDS: SPIRONOLACTONE 25 MG TAB PO SCH (09:59)
[2022-12-17] MEDS: ENOXAPARIN INJ 40 MG/0.4 ML SYR SQ SCH (10:00)
[2022-12-17] MEDS: LOSARTAN POTASSIUM 50 MG TAB PO SCH (10:00)
[2022-12-17] MEDS: INSULIN ASPART PER UNIT SC SCH ×2 (10:02→13:03)
[2022-12-17] MEDS: UMECLIDINIUM BROMIDE 62.5MCG/BLISTER 7 PUFFS/INHALER INH SCH (10:02)
[2022-12-17] MEDS: LANTUS PER UNIT CHARGE SQ SCH (10:05)
--- NOTE | 2022-12-17 17:06 | Discharge Summary ---
Date of Service December 17, 2022 Admission HPI Per Admitting Provider Carli Logan is a 76-year-old female who presnts to the ER due to shortness of breath and rash. She was recently admitted at [facility] [address] from Nov 26 to 2022 with acute on chronic respiratory failure with hypoxia suspected to be secondary to acute on chronic heart failure with preserved ejection fraction. She was not taking Bumex prior to that admission as she has decreased mobility and didn't think it made much difference to her shortness of breath and leg swelling. She was discharged on 1mg bumex PO daily but is yet to take any as the pharmacy didn't have it in stock therefore she doesn't have any pills. Despite notes to the contrary the patient does not feel she improved while she was hospitalized. Since going home her shortness of breath became progressively worse. Although currently she reports after the nebulizer in the ambulance she tells me she no longer feels short of breath and her main concern is her rash. Of note she was refusing her inhalers last admission which I could not get a good explanation as to why from the patient - she told me she didn't feel like she needed it but was also clearly feeling short of breath. She has also noted a cough which started last night. She reports sharing a room with a patient with a similar cough while hospitalized. She coughed and "vomited" up phlegm this morning. She denies any sinus pain, nasal congestion. She was on antibiotics last admission to cover for pneumonia but was discontinued after pulmonology evaluation. Her rash started last night prior to her cleaning lady coming. No new cleaning products, medications or food. She reports just eating an egg and toast yesterday which she normally dose not have a reaction to. Rash started last night. No new medications. Cleaning lady was around yesterday but rash appeared before any cleaning and she only usees the patients cleaning products. Spreading just on her upper extremities. She is concerned that this is how her allergies start then she cannot breath. Rash extremely itchy. 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 Card exam is regular without murmurs Lungs are without overt volume loss or abnormal breath sounds but she has prolonged expiratory phase Discharge Data Allergies Allergy/AdvReac Type Severity Reaction Status Date / Time aspirin Allergy Severe HIVES; Verified 12/10/22 14:52 DIFFICULTY BREATHING colchicine Allergy Severe Difficulty Verified 12/10/22 14:52 Breathing Benzodiazepines Allergy Mild Unknown Verified 12/10/22 14:52 doxycycline Allergy Mild Unknown Verified 12/10/22 14:52 aspartame Allergy Unknown Unknown Verified 12/10/22 14:52 diltiazem Allergy Unknown UNKNOWN Verified 12/10/22 14:52 REACTION melon Allergy Unknown Unknown Verified 12/10/22 14:52 nifedipine Allergy Unknown UNKNOWN Verified 12/10/22 14:52 REACTION simvastatin Allergy Unknown UNKNOWN Verified 12/10/22 14:52 REACTION PER PT sucralose Allergy Unknown Unknown Verified 12/10/22 14:52 vancomycin Allergy Unknown UNKNOWN Verified 12/10/22 14:52 REACTION Iodinated Contrast Media AdvReac Intermediate Rash Verified 12/10/22 14:52 Consultations 12/10/22 15:02 ED Decision to Admit Stat 12/10/22 21:03 Consult Nephrology Routine 12/14/22 08:40 Consult Urology Routine Hospital Course (1) Shortness of breath: Acute serious risk since resolved. Patient has nocturnal oxygen at home she was tested in her room when she is not hypoxic on room air. Origin of shortness of breath is a combination of acute diastolic heart failure and COPD with noncompliance to medications. continues on Symbicort she states she has enough of her inhaled medications at home and does not wish to change to new ones at this time Steroid given for maculopapular rash may also help with her breathing she will be on tapering doses of steroids at home Patient also has acute diastolic heart failure HFpEF l continue diuretics: bumex and spironolactone, Bumex dose has been reduced patient has been refusing spironolactone. She is very much [facility] takes and does not take. She is challenged with her ambulation and typically spends most of her day in a wheelchair and subsequently does not like to go to the bathroom so she does take her diuretic which is what left her come in for acute on chronic diastolic heart failure. (2) Acute maculopapular rash: Acute and self-limitedimproving suspect this is allergic reaction given extensive history, Solu-medrol transition to to prednisone tapering dose as an outpatient (3) Nephrotic range proteinuria: Suspect hypervolemia more to do with her proteinuria and CKD 3 Nephrology recommends continuation of ARB follow-up with Dr. Espino as outpatient (4) Acute on chronic heart failure with preserved ejection fraction (HFpEF): Patient has mild changes seen on chest x-ray from 12/16/2022 continue diuretic therapy diuretic use was reinforced at time of discharge (5) Hypothyroidism, postablative: Chronic stable continue home treatment Given concerns with compliance and the fact that the patient asked for refills of all of her home medications including her Synthroid I recommend we continue on her Synthroid as dosed and that she has outpatient laboratory testing. (6) HTN (hypertension): Uncontrolled chronically Patient will be on Bumex 0.5 mg a day (7) Type 2 diabetes mellitus with peripheral neuropathy: Hemoglobin A1C 8.1 earlier this month. Patient needs good diabetic control she will go back on her Levemir with sliding scale insulin at home she requested an prescriptions for needles for her pen lancets test strips and a new glucometer Total Time Total Time Spent Total Time Spent (In Minutes): It required greater than 30 minutes to prepare this patient for discharge Discharge Plan Discharge Items Patient Disposition: Home - Self-Care Reason For Visit: HYPOXIA, SHORTNESS OF BREATH, RASH Discharge Diagnosis: shortness of breath lower extremity swelling heart failure Activity: Resume your previous activity Non-emergency contact: Primary Care Provider and Public Relations Intern Call non-emergency contact if: your symptoms worsen Follow-up/Referrals: Irish Ramos MD [Primary Care Provider] - 12/29/22 1:30 pm Diet: Low Sodium (2gm) Addtl Attending Provider Instructions: Call 911 and go to the Emergency Room if: * You have tightness or pain in your chest that does not go away with rest or Nitroglycerin * You are very short of breath even with rest Call your doctor if any of the following symptoms or problems start or get worse: * Shortness of breath or difficulty breathing * Wake up at night short of breath * Chest pain * Cough * Swelling of your hands, fee, or legs * More fatigued or tired with your normal activity * Palpitations - sudden fast heart beats WEIGHT * Weigh yourself every morning after using the bathroom. * Use the same scale. * Wear the same amount of clothing. * Write your weight down on your chart. * Call your doctor if you gain more than 2-3 pounds in 1-2 days. MEDICATIONS * Use this discharge instruction sheet for instructions. * Take your medications at the time your doctor ordered. * Do not skip a dose of your medicines. * If you miss a dose of medicine, take as soon as possible, but DO NOT DOUBLE A DOSE. * Read your medicine information when you get home. * Know all of the side effects of your medicine. * Call your doctor's office if you have any side effects. * Be sure all of your doctors know what medicine and herbs you take (including cold, flu, and herbal medicine). * Pain Medicine: If you do not get relief from your pain, please call your doctor for help. Take the following with you to your follow-up doctor appointments: * Weight Chart * Medication List * List of questions Do not drink excessive alcohol, beer or wine. Pending Studies at Discharge: No Stand-Alone Forms: [employer] WBS, Smoking Cessation Medications and DC Order Prescriptions: New losartan 50 mg Tablet 100 mg PO QAM Qty: 30 2RF prednisone 10 mg tablet 10 mg PO UD Qty: 40 0RF Rx Instructions: 4 a day x 4d->3 a day x 4 d->2 a day x 4 d -> 1 a day bumetanide 1 mg Tablet 0.5 mg PO QAM Qty: 30 2RF Continued albuterol sulfate 90 mcg/actuation HFA aerosol inhaler 2 puff INHALATION Q6H PRN (Reason: Shortness Of Breath Or Wheezing) Qty: 18 1RF albuterol sulfate 0.63 mg/3 mL solution for nebulization 0.63 mg inhalation QID PRN (Reason: shortness of breath or wheezing) Qty: 90 3RF acetaminophen [Tylenol Extra Strength] 500 mg Tablet 1,000 mg PO Q8H Qty: 30 0RF levothyroxine 137 mcg tablet 137 mcg PO DAILYBB Qty: 30 3RF (DME) blood-glucose meter [OneTouch Verio Meter] Misc See Rx Instructions .Route Qty: 1 0RF Rx Instructions: As directed (DME) OneTouch Verio test strips Strip See Rx Instructions .ROUTE .MEDSUPPLY Qty: 100 3RF Rx Instructions: for once a day testing potassium chloride 20 mEq packet 20 meq PO DAILY Qty: 30 2RF insulin detemir U-100 100 unit/mL (3 mL) insulin pen 30 unit subcut DAILY Qty: 15 3RF budesonide-formoterol [Symbicort] 80-4.5 mcg/actuation HFA aerosol inhaler 1 inh inhalation BID Qty: 10.2 2RF (DME) pen needle, diabetic [BD Ultra-Fine Micro Pen Needle] 32 gauge x 1/4" needle See Rx Instructions .ROUTE .MEDSUPPLY Qty: 50 0RF Rx Instructions: As directed (DME) lancets [OneTouch Delica Lancets] 33 gauge misc See Rx Instructions .ROUTE .MEDSUPPLY Qty: 100 0RF Rx Instructions: As directed Discontinued bromfenac 0.09 % drops 1 drp ophthalmic (eye) DAILY 16 Days Qty: 1.7 0RF Rx Instructions: Bring to allergy clinic for testing doxycycline hyclate 50 mg tablet See Rx Instructions PO .COMPLEX Qty: 3 0RF Rx Instructions: Do not take, bring to the allergy clinic for testing amlodipine 5 mg tablet 5 mg PO HS olmesartan 40 mg tablet 40 mg PO QDL bumetanide 1 mg tablet 1 mg PO DAILY Qty: 30 0RF No Action (DME) Bed Side Commode Misc See Rx Instructions .Route Qty: 1 0RF Rx Instructions: As directed (DME) inhaler,assist devices,access Device See Rx Instructions .MEDSUPPLY Qty: 1 0RF Rx Instructions: spacer for HFA inhlaer, use as directed (DME) Spacer for Inhaler Misc See Rx Instructions .Route Qty: 1 0RF Rx Instructions: As directed Discharge Orders: Discharge Order (Routine); Ordered 12/17/22 Ordered By: Frederick Massey Admission Data Admit Date/Time: 12/10/22 15:54 Attending Provider: Frederick Massey Admit Provider: Yosef Chacko Primary Care Provider: Irish Ramos Other Providers: Yosef Chacko ; Gonzalo Espino ; Dash Rodas ; Edgardo Faria ; Klever Partida ; Caroline Boston ; Marcos Addison ; Kandy Wright ; Marley Arguello ; River Singh ; Bennett Mercado ; Sandrine Canada ; Frederick Andrade ; Nathan Monae Other Interventions: Discharge Summary Assessment (RN) Last Done: 12/17/22 13:25 Coding Level of Care Code 76211 INP/OBS DISCH >30 MIN Diagnoses Shortness of breath R06.02 Acute maculopapular rash R21 Nephrotic range proteinuria R80.9 Acute on chronic heart failure with preserved ejection fraction (HFpEF) I50.33 Hypothyroidism, postablative E89.0 HTN (hypertension) I10 Hypertension type: essential hypertension Type 2 diabetes mellitus with peripheral neuropathy E11.42
== END 2022-12-17 14:00 | disposition home or self-care (01) | DRG 291 ==
LOC: ED 13:35 → SUATTDRO 15:54 → 2W 15:54

== ENCOUNTER 2023-03-05 00:55 | Inpatient (IN) ==
[2023-03-05] MEDS ORDERED: ALBUT/IPRATROP 3MG/0.5MG NEB 3 ML VIAL INH STA (01:41)
[2023-03-05] MEDS ORDERED: methylPREDNISolone 125 MG/2 ML VIAL IV STA (01:41)
--- NOTE | 2023-03-05 01:55 | Emergency Department Note ---
Impression & Plan Respiratory failure, CHF (congestive heart failure), Asthma exacerbation Admit to the [facility] ED Provider Note NAME: LACI SOLITARIO AGE: 77 SEX: F ARRIVES VIA: Ambulance INFORMANT: Patient ED PROVIDER(S): Dot Gonzales DO CHIEF COMPLAINT: Shortness of breath PLAN: Disposition: Admit to the [facility] Condition: Guarded MEDICAL DECISION MAKING: This is a 77-year-old female patient presents emergency department with shortness of breath. Patient felt that her symptoms were exacerbated over the past 48 hours she had been outside working and seems to be triggered by the pollen. This evening she had used her Alupent and placed herself on home oxygen but symptoms were not improving. Patient has a history of asthma as well as congestive heart failure. Patient did take her home oxygen level and found it to be 68% despite being on supplemental oxygen. EMS was called and she was transported here. Upon arrival patient here in the ER, the patient was only able to maintain O2 saturations in the low 90s on oxy mask. She was eventually switched over to BiPAP. Chest x-ray showed evidence of congestive heart failure. She was significantly hypertensive. She had a normal white blood cell count and stable H&H. Patient had a troponin at 31.5 and a BNP of 678. Patient's blood pressure was significantly elevated throughout her stay here in the emergency department. I discussed the case with the [facility]ist and they will evaluate for further management. Triage Nursing notes reviewed and agree with them. External medical records been reviewed including previous admissions Vital Signs: reviewed and remarkable for significant hypertension. The patient had O2 saturations at home of 68%. Patient was noted to be 89% here on 4 L. Differential diagnosis: Asthma exacerbation, pulmonary edema, pneumothorax, pneumonia, COVID-19, STEMI ER treatment provided: Cardiac monitoring Supplemental oxygen IV Solu-Medrol DuoNeb treatment IV Bumex BiPAP Diagnostics independently interpreted by me: ECG: Normal sinus rhythm at 97 with T wave inversions in the inferior and lateral leads compared to previous EKGs. Cardiac Monitoring: Normal sinus rhythm at 92 Laboratory studies: See below Imaging studies: As independently interpreted by me Portable chest x-ray: Moderate pulmonary edema with left-sided pleural effusion. HPI: 77/F arrives for evaluation of shortness of breath. Patient has extensive history of asthma and has noticed increasing shortness of breath over the past couple days. She thought it was secondary to pollen but symptoms dramatically worsened tonight. She took her home O2 saturation and found it to be 68%. She put herself on oxygen at home but symptoms were not improving. She tried using her Alupent but was not getting any better. PAST MEDICAL HISTORY:See Below PAST SURGICAL HISTORY:See Below FAMILY HISTORY:See Below SOCIAL HISTORY:See Below HOME MEDICATIONS:See list ALLERGIES:See list VITALS:See Below PHYSICAL EXAMINATION: HEENT: Head - normocephalic and atraumatic. Pupils are equal, round, and reactive to light. Extraocular eye muscles are intact, and sclera are anicteric. Nose - moist nasal mucosa without discharge. Mouth - moist buccal mucosa. Oropharynx is nonerythematous and there is no tonsillar exudate or edema noted. Neck: Supple; mild JVD Heart: Regular rate and rhythm. There is a normal S1 and S2 with no murmurs, clicks, or gallops appreciated. Lungs: Diminished breath sounds in all lung brooke with wheezes on expiration in both bases. Abdomen: Soft, completely nontender, nondistended, with good bowel sounds. There are no palpable pulsatile masses or hepatosplenomegaly. There is no guarding, rigidity, or rebound noted. Extremities: Significant lymphedema both lower extremities with 2+ pitting edema Skin: warm and dry with good turgor and no rashes. ED COURSE: Times/Reassessments: 130: Patient was evaluated in room A-12. A twelve-lead EKG was obtained. An order was placed for continuous cardiac monitoring. Laboratory studies were drawn as above. Patient was medicated with 125 mg of IV Solu-Medrol. She had DuoNeb treatment. Portable chest x-ray was performed. Patient respiratory status improved only for a short period of time and then she had an increase in her respiratory rate and heart rate. Patient was switched over to BiPAP and she was given a dose of IV Bumex. I discussed the case with the [facility] Hospitalist and they will evaluate for further management. Dot Gonzales DO Past Med/Surg History Medical History (Updated 03/05/23 @ 07:30 by Dot Gonzales DO) Acute diastolic (congestive) heart failure HX Ambulatory dysfunction Asthma Chest pain hx-"more pleuritic pain, not cardiac related" CHF exacerbation HX-RECENTLY Chronic edema Chronic respiratory failure with hypoxia, on home O2 therapy O2 prn at 2L Diabetes mellitus with albuminuria Diastolic heart failure HX Dyslipidemia Elevated serum globulin level Financial difficulties Gait abnormality History of ectopic History of seizures as a child HTN (hypertension) Hx of papillary thyroid carcinoma Hx of pleurisy Hx of thyroid cancer Hypokalemia Hypomagnesemia Hypothyroidism, postablative Lower extremity edema Multiple drug allergies Obstructive pattern present on pulmonary function testing Pleurisy without effusion have been hospitalized 4x in the past year for this Pleuritic chest pain 4x in the past year 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 Vitamin D deficiency Wheelchair bound Surgical History History of D&C Hx of brain surgery 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 during the procedure Hx of section Hx of thyroidectomy Family History Father Stroke Mother Dementia Diabetes Sister Macular degeneration Brother Macular degeneration Other TIA (transient ischemic attack) Denies family history of Ovarian cancer Prostate cancer Myocardial infarction Breast cancer Colorectal cancer Social History Smoking Status: Never smoker Second Hand Exposure: No; Do You Dip or Chew Tobacco: No; Hx Alcohol Use: No Hx Substance Use: No Preferred Language: Argentine Communication Ability: Effective Visual Impairment: No Limitations Hearing Ability: Normal 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 Required: No Beliefs That Will Affect Care: None marital status: / Current Living Situation: Alone Current Living Situation Comment: has family that lives nearby and helps out current occupational status: retired 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 Feels Safe at Home: Yes Childhood Exposure to Second-Hand Smoke: No Diet: regular Dental Care, Regularly: Yes Physical Activity Frequency: Does not Exercise Seatbelt Use: always Sunscreen Use: No Assistive Devices: Bedside Commode, Glasses, Lift Chair, Scooter/Electric Scooter, Stair Lift, Walker and Wheelchair Allergies Allergies Allergy/AdvReac Type Severity Reaction Status Date / Time aspirin Allergy Severe HIVES; Verified 03/05/23 01:20 DIFFICULTY BREATHING colchicine Allergy Severe Difficulty Verified 03/05/23 01:20 Breathing Iodinated Contrast Media Allergy Intermediate Rash Verified 03/05/23 01:20 aspartame Allergy Unknown Unknown Verified 03/05/23 01:20 Benzodiazepines Allergy Unknown Unknown Verified 03/05/23 01:20 diltiazem Allergy Unknown UNKNOWN Verified 03/05/23 01:20 REACTION doxycycline Allergy Unknown Unknown Verified 03/05/23 01:20 melon Allergy Unknown Unknown Verified 03/05/23 01:20 nifedipine Allergy Unknown UNKNOWN Verified 03/05/23 01:20 REACTION simvastatin Allergy Unknown UNKNOWN Verified 03/05/23 01:20 REACTION PER PT sucralose Allergy Unknown Unknown Verified 03/05/23 01:20 vancomycin Allergy Unknown UNKNOWN Verified 03/05/23 01:20 REACTION Home Meds Home Medications Medication Instructions Recorded Confirmed acetaminophen 500 mg tablet 1,000 mg PO Q8H PRN Pain 01/27/23 03/05/23 (Tylenol Extra Strength) bumetanide 1 mg tablet 1 mg PO QAM 01/27/23 03/05/23 insulin detemir U-100 100 unit/mL 30 unit subcut QA 01/27/23 03/05/23 (3 mL) subcutaneous pen olmesartan 40 mg tablet 40 mg PO QAM 01/27/23 03/05/23 potassium chloride 20 mEq oral 20 meq PO QAM 01/27/23 03/05/23 packet Previous Rx's Medication Instructions Recorded Bed Side Commode #1 ea 08/28/21 albuterol sulfate 90 mcg/actuation 2 puff inhalation Q6H PRN 06/30/22 aerosol inhaler Shortness Of Breath Or Wheezing #18 grams Spacer for Inhaler #1 ea 09/04/22 inhaler,assist devices,access #1 ea 11/05/22 blood sugar diagnostic (4th aspectTouch #100 ea 12/17/22 Verio test strips) blood-glucose meter (4th aspectTouch #1 ea 12/17/22 Verio Meter) budesonide-formoterol HFA 80 1 inh inhalation BID #10.2 grams 12/17/22 mcg-4.5 mcg/actuation aerosol inhaler (Symbicort) lancets 33 gauge (4th aspectTouch Delica #100 ea 12/17/22 Lancets) pen needle, diabetic 32 gauge x #50 ea 12/17/22 1" (BD Ultra-Fine Micro Pen Needle) losartan 50 mg tablet 100 mg PO QAM #180 tabs 02/03/23 levothyroxine 150 mcg tablet 150 mcg PO DAILY #90 tabs 02/26/23 nebulizer accessories #1 ea 03/01/23 albuterol sulfate 0.63 mg/3 mL 0.63 mg (3 mL) inhalation QID PRN 03/02/23 solution for nebulization shortness of breath or wheezing #90 mL Results & Data (ED) Vital Signs Vital Signs - 24 hr 03/05/23 01:02 03/05/23 01:02 03/05/23 01:02 Temperature 36.4 C L Temperature Source Oral Pulse Rate 95 H 96 H Pulse Rate from SpO2 Sensor Respiratory Rate 22 Respiratory Effort / Characteristics Spontaneous Respiratory Depth Deep Deep Respiratory Pattern Regular Blood Pressure 221/115 H Blood Pressure Mean 150 Pulse Oximetry 95 Oxygen Delivery Method Nasal Cannula Oxygen Flow Rate 4 Fraction of Inspired Oxygen Sepsis Recent Fever Within 48 Hours No Sepsis New/Unexplained Change in Mental Status No Sepsis Action Taken by Nursing No Action Required Oxygen Flow Rate - Titration Pulse Oximetry Post Tiitration 03/05/23 01:02 03/05/23 01:46 03/05/23 02:01 Temperature Temperature Source Pulse Rate Pulse Rate from SpO2 Sensor Respiratory Rate Respiratory Effort / Characteristics Respiratory Depth Respiratory Pattern Blood Pressure Blood Pressure Mean Pulse Oximetry 95 96 70 L Oxygen Delivery Method Nasal Cannula Nasal Cannula Nasal Cannula Oxygen Flow Rate 4 4 0 Fraction of Inspired Oxygen Sepsis Recent Fever Within 48 Hours Sepsis New/Unexplained Change in Mental Status Sepsis Action Taken by Nursing Oxygen Flow Rate - Titration 4 Pulse Oximetry Post Tiitration 91 03/05/23 01:05 03/05/23 01:50 03/05/23 02:10 Temperature Temperature Source Pulse Rate 100 H 104 H 114 H Pulse Rate from SpO2 Sensor 98 H 105 H 114 H Respiratory Rate 21 25 H 28 H Respiratory Effort / Characteristics Respiratory Depth Respiratory Pattern Blood Pressure 221/112 H Blood Pressure Mean 148 Pulse Oximetry 95 94 91 Oxygen Delivery Method Oxygen Flow Rate 4 Fraction of Inspired Oxygen Sepsis Recent Fever Within 48 Hours Sepsis New/Unexplained Change in Mental Status Sepsis Action Taken by Nursing Oxygen Flow Rate - Titration Pulse Oximetry Post Tiitration 03/05/23 02:30 03/05/23 02:40 03/05/23 03:09 Temperature Temperature Source Pulse Rate 115 H 118 H 122 H Pulse Rate from SpO2 Sensor 116 H 118 H Respiratory Rate 41 H 36 H 36 H Respiratory Effort / Characteristics Spontaneous Labored Short of Breath Respiratory Depth Shallow Respiratory Pattern Tachypnea Blood Pressure 240/162 H 230/111 H Blood Pressure Mean 188 150 Pulse Oximetry 95 92 100 Oxygen Delivery Method Oxygen Flow Rate Fraction of Inspired Oxygen 60 Sepsis Recent Fever Within 48 Hours Sepsis New/Unexplained Change in Mental Status Sepsis Action Taken by Nursing Oxygen Flow Rate - Titration Pulse Oximetry Post Tiitration 03/05/23 03:00 03/05/23 03:31 03/05/23 04:00 Temperature Temperature Source Pulse Rate 127 H 111 H 101 H Pulse Rate from SpO2 Sensor Respiratory Rate 28 H 32 H 22 Respiratory Effort / Characteristics Respiratory Depth Respiratory Pattern Blood Pressure 234/126 H 184/98 H 157/83 H Blood Pressure Mean 162 126 107 Pulse Oximetry 92 92 100 Oxygen Delivery Method Oxygen Flow Rate Fraction of Inspired Oxygen Sepsis Recent Fever Within 48 Hours Sepsis New/Unexplained Change in Mental Status Sepsis Action Taken by Nursing Oxygen Flow Rate - Titration Pulse Oximetry Post Tiitration 03/05/23 04:30 03/05/23 05:09 03/05/23 04:30 Temperature Temperature Source Pulse Rate 96 H 94 H 119 H Pulse Rate from SpO2 Sensor Respiratory Rate 20 30 H Respiratory Effort / Characteristics Spontaneous Respiratory Depth Shallow Respiratory Pattern Tachypnea Blood Pressure 157/76 H Blood Pressure Mean 103 Pulse Oximetry 99 100 Oxygen Delivery Method Oxygen Flow Rate Fraction of Inspired Oxygen 50 Sepsis Recent Fever Within 48 Hours Sepsis New/Unexplained Change in Mental Status Sepsis Action Taken by Nursing Oxygen Flow Rate - Titration Pulse Oximetry Post Tiitration 03/05/23 05:30 03/05/23 06:00 03/05/23 06:14 Temperature Temperature Source Pulse Rate 92 H 97 H 115 H Pulse Rate from SpO2 Sensor Respiratory Rate 24 20 28 H Respiratory Effort / Characteristics Non-Labored Spontaneous Respiratory Depth Respiratory Pattern Tachypnea Blood Pressure 166/78 H 189/103 H Blood Pressure Mean 107 131 Pulse Oximetry 100 100 99 Oxygen Delivery Method Oxygen Flow Rate Fraction of Inspired Oxygen 40 Sepsis Recent Fever Within 48 Hours Sepsis New/Unexplained Change in Mental Status Sepsis Action Taken by Nursing Oxygen Flow Rate - Titration Pulse Oximetry Post Tiitration 03/05/23 06:30 Temperature Temperature Source Pulse Rate 93 H Pulse Rate from SpO2 Sensor Respiratory Rate 32 H Respiratory Effort / Characteristics Respiratory Depth Respiratory Pattern Blood Pressure 169/91 H Blood Pressure Mean 117 Pulse Oximetry 97 Oxygen Delivery Method Oxygen Flow Rate Fraction of Inspired Oxygen Sepsis Recent Fever Within 48 Hours Sepsis New/Unexplained Change in Mental Status Sepsis Action Taken by Nursing Oxygen Flow Rate - Titration Pulse Oximetry Post Tiitration Laboratory Data 03/05/23 02:20 03/05/23 02:20 Lab Results 03/05/23 03/05/23 03/05/23 Range/Units 02:20 02:20 02:20 WBC 9.16 (4.8-10.8) K/ul RBC 4.26 (4.20-5.40) M/uL Hgb 11.8 L (12.0-16.0) g/dl Hct 37.6 (37.0-47.0) % MCV 88.3 (80.0-100.0) fL MCH 27.7 (25.0-34.0) pg MCHC 31.4 L (32.0-36.0) g/dL RDW Std Deviation 44.8 (36.4-46.3) fL RDW Coeff of Simth 13.8 (11.5-14.5) % Plt Count 248 (130-400) K/uL MPV 10.6 (9.4-12.4) fL Immature Gran % (Auto) 0.2 % Neut % (Auto) 78.7 % Lymph % (Auto) 12.1 % Craig % (Auto) 7.3 % Eos % (Auto) 1.3 % Baso % (Auto) 0.4 % Neut # (Auto) 7.20 H (1.40-6.50) K/uL Lymph # (Auto) 1.11 L (1.2-3.4) K/uL Craig # (Auto) 0.67 H (0.11-0.59) K/uL Eos # (Auto) 0.12 (0-0.50) K/uL Baso # (Auto) 0.04 (0-0.2) K/uL Immature Gran # (Auto) 0.02 (0.01-0.20) K/uL Sodium 139 (136-145) mmol/L Potassium 4.0 (3.5-5.1) mmol/L Chloride 98 (98-107) mmol/L Carbon Dioxide 36 H (21-32) mmol/L Anion Gap 5 (3-11) BUN 23 (6-23) mg/dl Creatinine 0.80 (0.6-1.2) mg/dl Est Cr Clr Drug Dosing 73.1 ml/min Est GFR ( Amer) 83.6 ml/min Est GFR (Non-Af Amer) 72.1 ml/min BUN/Creatinine Ratio 28.8 H (10-20) Glucose 202 H (70-99(Fasting)) mg/dl Calcium 8.9 (8.6-10.3) mg/dl Total Bilirubin 0.6 (0.2-1.0) mg/dl AST 18 (13-39) U/L ALT 13 (7-52) U/L Alkaline Phosphatase 77 (34-104) U/L Troponin I High Sens 31.5 H (0-14) pg/ml B-Natriuretic Peptide 678 H (0-100) pg/ml Total Protein 7.8 (6.0-8.3) gm/dl Albumin 3.8 (3.4-5.0) gm/dl Globulin 4.0 (2.5-4.0) gm/dl Albumin/Globulin Ratio 1.0 (0.9-2) SARS-CoV-2 (PCR) (Negative) 03/05/23 Range/Units Unknown WBC (4.8-10.8) K/ul RBC (4.20-5.40) M/uL Hgb (12.0-16.0) g/dl Hct (37.0-47.0) % MCV (80.0-100.0) fL MCH (25.0-34.0) pg MCHC (32.0-36.0) g/dL RDW Std Deviation (36.4-46.3) fL RDW Coeff of Smith (11.5-14.5) % Plt Count (130-400) K/uL MPV (9.4-12.4) fL Immature Gran % (Auto) % Neut % (Auto) % Lymph % (Auto) % Craig % (Auto) % Eos % (Auto) % Baso % (Auto) % Neut # (Auto) (1.40-6.50) K/uL Lymph # (Auto) (1.2-3.4) K/uL Craig # (Auto) (0.11-0.59) K/uL Eos # (Auto) (0-0.50) K/uL Baso # (Auto) (0-0.2) K/uL Immature Gran # (Auto) (0.01-0.20) K/uL Sodium (136-145) mmol/L Potassium (3.5-5.1) mmol/L Chloride (98-107) mmol/L Carbon Dioxide (21-32) mmol/L Anion Gap (3-11) BUN (6-23) mg/dl Creatinine (0.6-1.2) mg/dl Est Cr Clr Drug Dosing ml/min Est GFR ( Amer) ml/min Est GFR (Non-Af Amer) ml/min BUN/Creatinine Ratio (10-20) Glucose (70-99(Fasting)) mg/dl Calcium (8.6-10.3) mg/dl Total Bilirubin (0.2-1.0) mg/dl AST (13-39) U/L ALT (7-52) U/L Alkaline Phosphatase (34-104) U/L Troponin I High Sens (0-14) pg/ml B-Natriuretic Peptide (0-100) pg/ml Total Protein (6.0-8.3) gm/dl Albumin (3.4-5.0) gm/dl Globulin (2.5-4.0) gm/dl Albumin/Globulin Ratio (0.9-2) SARS-CoV-2 (PCR) NEGATIVE (Negative) Administered Medications Discontinued Medications Albuterol (Albut/Ipratrop 3mg/0.5mg Neb 3 Ml Vial) 3 ml INH NOW STA Stop: 03/05/23 01:42 Last Admin: 03/05/23 01:49 Dose: 3 ml Documented By: ROSALIA Bumetanide 1 mg/ Syringe 4 mls @ 4 mls/min IV ONE ONE Stop: 03/05/23 02:48 Last Admin: 03/05/23 04:12 Dose: 4 mls/min Documented By: SATHYA Methylprednisolone (Methylprednisolone 125 Mg/2 Ml Vial) 125 mg IV NOW STA Stop: 03/05/23 01:42 Last Admin: 03/05/23 02:19 Dose: 125 mg Documented By: ROSALIA Ondansetron HCl (Ondansetron Inj 2 Mg/Ml 2 Ml Vial) 4 mg IV NOW STA Stop: 03/05/23 02:45 Last Admin: 03/05/23 02:46 Dose: 4 mg Documented By: JAMA Discharge Plan Visit Data Chief Complaint: Shortness of Breath/Dyspnea Stated Complaint: SOB, Hypertension ED Provider: Dot Gonzales Discharge Problem: Respiratory failure, CHF (congestive heart failure), Asthma exacerbation Discharge Instructions Interventions: ED Discharge Assessment Last Done: 03/05/23 06:55 Forms Stand Alone Forms: [facility] OTR Prescriptions Prescriptions: No Action albuterol sulfate 90 mcg/actuation HFA aerosol inhaler 2 puff INHALATION Q6H PRN (Reason: Shortness Of Breath Or Wheezing) Qty: 18 1RF losartan 50 mg tablet 100 mg PO QAM Qty: 180 3RF Patient Comments: PT STATED SHE DOES NOT TAKE THIS BP MEDICATION. levothyroxine 150 mcg tablet 150 mcg PO DAILY Qty: 90 3RF (DME) nebulizer accessories Misc See Rx Instructions .Route Qty: 1 0RF Rx Instructions: Nebulizer, nebulizer tubing/accessories albuterol sulfate 0.63 mg/3 mL solution for nebulization 0.63 mg inhalation QID PRN (Reason: shortness of breath or wheezing) Qty: 90 3RF (DME) Bed Side Commode Misc See Rx Instructions .Route Qty: 1 0RF Rx Instructions: As directed (DME) inhaler,assist devices,access Device See Rx Instructions .MEDSUPPLY Qty: 1 0RF Rx Instructions: spacer for HFA inhlaer, use as directed (DME) Spacer for Inhaler Misc See Rx Instructions .Route Qty: 1 0RF Rx Instructions: As directed olmesartan 40 mg tablet 40 mg PO QAM acetaminophen [Tylenol Extra Strength] 500 mg tablet 1,000 mg PO Q8H PRN (Reason: Pain) potassium chloride 20 mEq packet 20 meq PO QAM bumetanide 1 mg tablet 1 mg PO QAM insulin detemir U-100 100 unit/mL (3 mL) insulin pen 30 unit subcut QAM Patient Comments: takes late morning Rx Instructions: PER PT "TOOK LATER THAN USUAL TODAY". (DME) blood-glucose meter [OneTouch Verio Meter] Misc See Rx Instructions .Route Qty: 1 0RF Rx Instructions: As directed (DME) OneTouch Verio test strips Strip See Rx Instructions .ROUTE .MEDSUPPLY Qty: 100 3RF Rx Instructions: for once a day testing budesonide-formoterol [Symbicort] 80-4.5 mcg/actuation HFA aerosol inhaler 1 inh inhalation BID Qty: 10.2 2RF (DME) pen needle, diabetic [BD Ultra-Fine Micro Pen Needle] 32 gauge x 1/4" needle See Rx Instructions .ROUTE .MEDSUPPLY Qty: 50 0RF Rx Instructions: As directed (DME) lancets [OneTouch Delica Lancets] 33 gauge misc See Rx Instructions .ROUTE .MEDSUPPLY Qty: 100 0RF Rx Instructions: As directed Referrals Referrals: Luann France MD [Primary Care Provider] -
[2023-03-05 02:36] LABS: Basophils # (auto) 0.04 K/uL (0-0.2); Basophils % (auto) 0.4 %; Eosinophils # (auto) 0.12 K/uL (0-0.50); Eosinophils % (auto) 1.3 %; Hematocrit (blood only) 37.6 % (37.0-47.0); Hemoglobin 11.8 g/dl (12.0-16.0); Immature Granulocytes # (auto) 0.02 K/uL (0.01-0.20); Immature Granulocytes % (auto) 0.2 %; Lymphocytes # (auto) 1.11 K/uL (1.2-3.4); Lymphocytes % (auto) 12.1 %; Mean Corpuscular Hemoglobin 27.7 pg (25.0-34.0); Mean Corpuscular Hgb Conc 31.4 g/dL (32.0-36.0); Mean Corpuscular Volume 88.3 fL (80.0-100.0); Mean Platelet Volume 10.6 fL (9.4-12.4); Monocytes # (auto) 0.67 K/uL (0.11-0.59); Monocytes % (auto) 7.3 %; Neutrophils % (auto) 78.7 %; Platelet Count 248 K/uL (130-400); RDW Coefficient of Variation 13.8 % (11.5-14.5); RDW Standard Deviation 44.8 fL (36.4-46.3); Red Blood Count 4.26 M/uL (4.20-5.40); White Blood Count 9.16 K/ul (4.8-10.8)
[2023-03-05] MEDS ORDERED: ONDANSETRON INJ 2 MG/ML 2 ML VIAL IV STA (02:44)
[2023-03-05] MEDS ORDERED: BUMETANIDE 1 MG in SYRINGE 0 ML IV ONE ×2 (02:47→15:45)
[2023-03-05 02:53] LABS: Albumin Level 3.8 gm/dl (3.4-5.0); BUN Creatinine Ratio 28.8 (10-20); Bilirubin,Total 0.6 mg/dl (0.2-1.0); Calcium 8.9 mg/dl (8.6-10.3); Creatinine Clr Calc Pharmacy 73.1 ml/min; Est GFR (African American) 83.6 ml/min; Est GFR (Non-African American) 72.1 ml/min; Total Protein 7.8 gm/dl (6.0-8.3)
[2023-03-05 02:58] LABS: Troponin I High Sensitivity 31.5 pg/ml (0-14)
--- NOTE | 2023-03-05 07:20 | XRay Report ---
XR chest 1V portable CLINICAL HISTORY: Dyspnea. COMPARISON STUDY: Chest radiograph January 25, 2023. Chest CT November 26, 2022. FINDINGS: There is no pneumothorax. Small left and trace right pleural effusions are present. Moderat e interstitial pulmonary edema is noted. Hazy left basilar opacity favors atelectasis. Cardiomegaly i s unchanged. IMPRESSION: 1. Moderate interstitial pulmonary edema. 2. Small left and trace right pleural effusions. Left basilar opacity suggestive of atelectasis. ACT 112: Negative or not required by law. Electronically signed by: Vicente Shrestha M.D. 03/05/2023 7:19 AM
[2023-03-05] MEDS ORDERED: ALUMINUM/MAGNESIUM SUSP 30 ML UDC PO PRN (07:35)
[2023-03-05] MEDS ORDERED: ALBUTEROL HFA 8 GM INHALER INH PRN (07:35)
[2023-03-05] MEDS ORDERED: POLYETHYLENE (MIRALAX) 17 GM PACK PO PRN (07:35)
[2023-03-05] MEDS ORDERED: ACETAMINOPHEN 500 MG TAB PO PRN (07:35)
[2023-03-05] MEDS ORDERED: ACETAMINOPHEN 325 MG TAB PO PRN (07:35)
--- NOTE | 2023-03-05 07:40 | History & Physical Report ---
Date of Service March 05, 2023 Assessment & Plan (1) Acute and chronic respiratory failure with hypoxia: Plan: Presents with severe hypoxia with pulse ox in the high 60s, shortness of breath, elevated BNP, chest x-ray with pleural effusions and pulmonary edema. She has severe peripheral edema but unclear what her baseline is although she thinks it is worse than usual. Weight is somewhat up from baseline. Secondary to acute on chronic HFpEF -Admit to PCU on telemetry monitoring -Continue supplemental O2 to keep pulse ox greater than 90%-diuresis for heart failure as below -Continue albuterol nebulizer treatments as needed -Continue steroids in the form of Solu-Medrol 40 Mg IV twice daily -Likely asthma exacerbation also contributing (2) Acute on chronic heart failure with preserved ejection fraction (HFpEF): Plan: As above -Give another dose of Bumex 1 mg IV x1 this evening and reassess for further diuresis tomorrow -Strict I's and O's, daily weights, low-sodium diet -No need for repeat echocardiogram at this point -With mildly elevated troponin at 31-trend but likely demand ischemia -No ischemic changes on ECG, no chest pain -Enrolled in CHF clinic -Needs improved blood pressure control-has multiple sensitivities to medications. Continue losartan 100 mg daily, give hydralazine IV as needed for elevated blood pressure, diuresing with IV Bumex. She was recently taken off amlodipine due to peripheral edema and has an allergy to nifedipine and diltiazem. She is supposed to be on spironolactone but as per last admission, was refusing to take it. Unclear if she has tried [id number] discussed with her -Monitor on telemetry for arrhythmias (3) Asthma exacerbation: Plan: -Continue steroids, bronchodilators (4) COPD (chronic obstructive pulmonary disease): Plan: Refuses long-acting maintenance inhalers Supplemental O2 as needed Steroids May need to start doxycycline to cover for COPD exacerbation (5) HTN (hypertension): Plan: As above -Needs improved control (6) Hypothyroidism, postablative: Plan: Recent TSH quite high at 25 and levothyroxine dose was increased to 150 mcg -Suspect gut wall edema is preventing good absorption although she is on Bumex -Continue home dose of levothyroxine for now and follow-up as an outpatient (7) Lymphedema: Plan: Apparently her lower extremity edema is much worse over the last year or 2 She does have lymphedema therapy and compression wraps through a lymphedema specialist that comes to her house Diurese with Bumex IV (8) Type 2 diabetes mellitus with peripheral neuropathy: Plan: Blood glucose is not well controlled while on corticosteroids Increase Lantus to 20 units twice daily and tighten down NovoLog sliding scale Recent hemoglobin A1c is 7.7% which is fairly well controlled Plan DVT prophylaxis- Lovenox SQ Disposition-admit to PCU Full code as discussed with patient, but reports that she would not want prolonged life support if she is in a vegetative state but would want to be kept alive long enough for her children to see her prior to her to help give them closure. Admission and Anticipated Discharge Date Admission Date: March 05, 2023 History of Present Illness Chief Complaint: Shortness of breath, hypoxia Primary Care Provider: Luann France MD This is a 77 yo F with PMHx of HFpEF, lymphedema, COPD, asthma, HTN, DM type II, hypothyroidism, remote papillary thyroid cancer s/p resection, craniotomy for CSF leak in ~2009 where she was hospitalized in [facility] and in a coma for 4-5 days and now primarily wheelchair bound who presents to the ER with worsening shortness of breath over the last 1 to 2 days. She has been working outside in the yard and has noticed a lot of pollen which has progressively made her more short of breath and have to use her home oxygen in the evening. She noticed last evening that she was very short of breath and her oxygen levels were 68% and not coming up even with supplemental O2. She called EMS. In the ER, she was noted to be in respiratory distress and was placed on BiPAP. She was given IV steroids and IV Bumex. Chest x-ray showed pulmonary edema as well as bilateral small pleural effusions and left basilar atelectasis. ECG was without ischemic changes and troponin was minimally elevated at 31. She denied chest pain. No fevers or chills, but has noticed a headache. No sore throat or runny nose, No cough. Allergies Allergy/AdvReac Type Severity Reaction Status Date / Time aspirin Allergy Severe HIVES; Verified 03/05/23 01:20 DIFFICULTY BREATHING colchicine Allergy Severe Difficulty Verified 03/05/23 01:20 Breathing Iodinated Contrast Media Allergy Intermediate Rash Verified 03/05/23 01:20 aspartame Allergy Unknown Unknown Verified 03/05/23 01:20 Benzodiazepines Allergy Unknown Unknown Verified 03/05/23 01:20 diltiazem Allergy Unknown UNKNOWN Verified 03/05/23 01:20 REACTION doxycycline Allergy Unknown Unknown Verified 03/05/23 01:20 melon Allergy Unknown Unknown Verified 03/05/23 01:20 nifedipine Allergy Unknown UNKNOWN Verified 03/05/23 01:20 REACTION simvastatin Allergy Unknown UNKNOWN Verified 03/05/23 01:20 REACTION PER PT sucralose Allergy Unknown Unknown Verified 03/05/23 01:20 vancomycin Allergy Unknown UNKNOWN Verified 03/05/23 01:20 REACTION Home Medications Medication Instructions Recorded Confirmed Type Bed Side Commode #1 ea 08/28/21 01/25/23 Rx albuterol sulfate 90 mcg/actuation 2 puff inhalation Q6H PRN 06/30/22 03/05/23 Rx aerosol inhaler Shortness Of Breath Or Wheezing #18 grams Spacer for Inhaler #1 ea 09/04/22 01/25/23 Rx inhaler,assist devices,access #1 ea 11/05/22 01/25/23 Rx blood sugar diagnostic (OneTouch #100 ea 12/17/22 01/25/23 Rx Verio test strips) blood-glucose meter (OneTouch #1 ea 12/17/22 01/25/23 Rx Verio Meter) budesonide-formoterol HFA 80 1 inh inhalation BID #10.2 grams 12/17/22 03/05/23 Rx mcg-4.5 mcg/actuation aerosol inhaler (Symbicort) lancets 33 gauge (OneTouch Delica #100 ea 12/17/22 01/25/23 Rx Lancets) pen needle, diabetic 32 gauge x #50 ea 12/17/22 01/25/23 Rx 1/4" (BD Ultra-Fine Micro Pen Needle) acetaminophen 500 mg tablet 1,000 mg PO Q8H PRN Pain 01/27/23 03/05/23 History (Tylenol Extra Strength) bumetanide 1 mg tablet 1 mg PO QAM 01/27/23 03/05/23 History insulin detemir U-100 100 unit/mL 30 unit subcut QAM 01/27/23 03/05/23 History (3 mL) subcutaneous pen potassium chloride 20 mEq oral 20 meq PO QAM 01/27/23 03/05/23 History packet losartan 50 mg tablet 100 mg PO QAM #180 tabs 02/03/23 03/05/23 Rx levothyroxine 150 mcg tablet 150 mcg PO DAILY #90 tabs 02/26/23 03/05/23 Rx nebulizer accessories #1 ea 03/01/23 Rx albuterol sulfate 0.63 mg/3 mL 0.63 mg (3 mL) inhalation QID PRN 03/02/23 03/05/23 Rx solution for nebulization shortness of breath or wheezing #90 mL Past Med/Surg History Medical History (Updated 03/05/23 @ 21:47 by Adrianna Jensen MD) Acute diastolic (congestive) heart failure HX Ambulatory dysfunction Asthma Chest pain hx-"more pleuritic pain, not cardiac related" CHF exacerbation HX-RECENTLY Chronic edema Chronic respiratory failure with hypoxia, on home O2 therapy O2 prn at 2L Diabetes mellitus with albuminuria Diastolic heart failure HX Dyslipidemia Elevated serum globulin level Financial difficulties Gait abnormality History of ectopic History of seizures as a child HTN (hypertension) Hx of papillary thyroid carcinoma Hx of pleurisy Hx of thyroid cancer Hypokalemia Hypomagnesemia Hypothyroidism, postablative Lower extremity edema Multiple drug allergies Obstructive pattern present on pulmonary function testing Pleurisy without effusion have been hospitalized 4x in the past year for this Pleuritic chest pain 4x in the past year 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 Vitamin D deficiency Wheelchair bound Surgical History History of D&C Hx of brain surgery 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 during the procedure Hx of section Hx of thyroidectomy Family History Father Stroke Mother Dementia Diabetes Sister Macular degeneration Brother Macular degeneration Other TIA (transient ischemic attack) Denies family history of Ovarian cancer Prostate cancer Myocardial infarction Breast cancer Colorectal cancer Social History Smoking Status: Never smoker Second Hand Exposure: No; Do You Dip or Chew Tobacco: No; Hx Alcohol Use: No Hx Substance Use: No Preferred Language: [place] Communication Ability: Effective Visual Impairment: No Limitations Hearing Ability: Normal [place] Required: No Beliefs That Will Affect Care: None marital status: / Current Living Situation: Alone Current Living Situation Comment: Pt has a chair lift and shower chair. 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 Feels Safe at Home: Yes Safety Concerns: Feels Safe At This Time Childhood Exposure to Second-Hand Smoke: No Diet: regular Dental Care, Regularly: Yes Physical Activity Frequency: Does not Exercise Seatbelt Use: always Sunscreen Use: No Assistive Devices: Glasses, Lift Chair and Wheelchair Review of Systems Review of Systems: All systems reviewed & are unremarkable except as noted in HPI & below Physical Exam Constitutional: WD/WN, vitals as above Eyes: + anicteric sclerae ENMT: external ear and nose normal, oropharynx normal Neck: trachea midline, no thyromegaly Respiratory: normal respiratory effort; no cough Auscultation: + diminished lung sounds (Throughout) and + crackles (Left greater than right base); no rhonchi and no wheezes Cardiovascular: Rate/Rhythm: regular rate and regular rhythm Heart Sounds: no murmur Extremities: + edema (4+ pitting edema to the thighs bilaterally) Gastrointestinal (Abdomen): normal bowel sounds, soft, nontender, no hepatosplenomegaly Musculoskeletal: Extremities: extremities normal to inspection; no cyanosis and no clubbing Skin: no rashes, warm and dry Neurologic: moves all extremities and awake; no focal motor deficits Psychiatric: A+Ox3, euthymic affect Results & Data Results & Data Vital Signs (Past 12 Hours) Vital Signs Temp Pulse Resp BP Pulse Ox O2 Del Method O2 Flow Rate 03/05/23 06:30 93 H 32 H 169/91 H 97 03/05/23 06:14 115 H 28 H 99 03/05/23 06:00 97 H 20 189/103 H 100 03/05/23 05:30 92 H 24 166/78 H 100 03/05/23 04:30 119 H 30 H 100 03/05/23 05:09 94 H 03/05/23 04:30 96 H 20 157/76 H 99 03/05/23 04:00 101 H 22 157/83 H 100 03/05/23 03:31 111 H 32 H 184/98 H 92 03/05/23 03:00 127 H 28 H 234/126 H 92 03/05/23 03:09 122 H 36 H 100 03/05/23 02:40 118 H 36 H 230/111 H 92 03/05/23 02:30 115 H 41 H 240/162 H 95 03/05/23 02:10 114 H 28 H 91 03/05/23 01:50 104 H 25 H 94 03/05/23 01:05 100 H 21 221/112 H 95 4 03/05/23 02:01 70 L Nasal Cannula 0 03/05/23 01:46 96 Nasal Cannula 4 03/05/23 01:02 95 Nasal Cannula 4 03/05/23 01:02 36.4 C L 96 H 22 221/115 H 95 Nasal Cannula 4 03/05/23 01:02 95 H FiO2 03/05/23 06:30 03/05/23 06:14 40 03/05/23 06:00 03/05/23 05:30 03/05/23 04:30 50 03/05/23 05:09 03/05/23 04:30 03/05/23 04:00 03/05/23 03:31 03/05/23 03:00 03/05/23 03:09 60 03/05/23 02:40 03/05/23 02:30 03/05/23 02:10 03/05/23 01:50 03/05/23 01:05 03/05/23 02:01 03/05/23 01:46 03/05/23 01:02 03/05/23 01:02 03/05/23 01:02 Laboratory Results CBC, BMP, BNP, UA, troponin all reviewed Diagnostic Findings Chest x-ray reviewed Code Status & VTE Plan Code Status FULL CODE VTE Prophylaxis Plan VTE Prophylaxis will be ordered: Yes PG Care Time/CCT Total # of Minutes Spent Total Time Spent with Patient: Total time spent is greater than 50% in coordination of care (as documented) at patient's floor/unit and/or counseling patient: Coding Level of Care Code 10643 INT INP/OBS CARE 3/75MIN Diagnoses Acute and chronic respiratory failure with hypoxia J96.21 Acute on chronic heart failure with preserved ejection fraction (HFpEF) I50.33 Asthma exacerbation J45.901 COPD (chronic obstructive pulmonary disease) J44.9 HTN (hypertension) I10 Hypertension type: essential hypertension Hypothyroidism, postablative E89.0 Lymphedema I89.0 Type 2 diabetes mellitus with peripheral neuropathy E11.42 (5) HTN (hypertension) Hypertension type: essential hypertension Qualified Code(s): I10 - Essential (primary) hypertension
[2023-03-05] MEDS ORDERED: DEXTROSE 50% 50 ML SYRINGE IV PRN (07:45)
[2023-03-05] MEDS ORDERED: GLUCAGON FOR INJ 1 MG VIAL SQ PRN (07:45)
[2023-03-05] MEDS ORDERED: GLUCOSE 40% GEL 15 GM TUBE PO PRN (07:45)
[2023-03-05] MEDS ORDERED: CARBOHYDRATES FOR HYPOGLYCEMIA PO PRN (07:45)
[2023-03-05] MEDS ORDERED: GLUCOSE 10 TAB/TUBE PO PRN (07:45)
[2023-03-05] MEDS ORDERED: LOSARTAN POTASSIUM 50 MG TAB PO SCH (09:00)
[2023-03-05] MEDS ORDERED: LANTUS PER UNIT CHARGE SC SCH (09:00)
[2023-03-05] MEDS: HEPARIN SOD 5,000 UNIT/0.5 ML VIAL SQ SCH ×2 (09:44→21:10)
[2023-03-05] MEDS: LEVOTHYROXINE SODIUM 150 MCG TABLET PO SCH (09:59)
[2023-03-05] MEDS: FLUTICASONE/VILANTEROL 100/25MCG 14 PUFFS/INHALER INH SCH (10:00)
[2023-03-05] MEDS: INSULIN ASPART PER UNIT CHARGE SC SCH ×4 (10:10→21:08)
[2023-03-05] MEDS: ALBUTEROL 0.083% NEBU SOLN 3 ML VIAL INH PRN ×2 (10:16→20:00)
[2023-03-05 11:34] LABS: Appearance Urine Clear (Clear); Bacteria Urine Automated Negative (Negative); Bilirubin Urine Negative (Negative); Blood Urine 1+ (Negative); Cast Urine Automated 0 /lpf (0-5); Color Urine Yellow; Glucose Urine UA 1+ (Negative); Ketones Urine Negative (Negative); Leukocyte Esterase Urine Negative (Negative); Nitrite Urine Negative (Negative); Protein Urine 3+ (Negative); RBC Urine Automated 0-4 /hpf (0-4); Specific Gravity Urine 1.011 (1.000-1.030); Urobilinogen Urine Negative (Negative)
[2023-03-05] MEDS: POTASSIUM CHLORIDE PWD 20 MEQ PACK PO SCH (12:26)
[2023-03-05] MEDS: LOSARTAN POTASSIUM 50 MG TAB PO SCH (12:27)
--- NOTE | 2023-03-05 15:25 | Electrocardiogram Report ---
Test Reason : Blood Pressure : / mmHG Vent. Rate : 097 BPM Atrial Rate : 097 BPM P-R Int : 174 ms QRS Dur : 088 ms QT Int : 354 ms P-R-T Axes : 081 040 069 degrees QTc Int : 449 ms Normal sinus rhythm Possible Left atrial enlargement Abnormal ECG When compared with ECG of 25-JAN-2023 15:46, Nonspecific T wave abnormality now evident in Inferior leads Nonspecific T wave abnormality now evident in Lateral leads Confirmed by Klever Plata ([id number]) on 03/05/2023 3:25:35 PM Referred By: REFERRED SELF Confirmed By:Laurent Plata
[2023-03-05] MEDS: methylPREDNISolone 40 MG in SYRINGE 0 ML IV SCH (21:09)
[2023-03-05] MEDS: LANTUS PER UNIT CHARGE SC SCH (22:54)
[2023-03-05] MEDS: hydrALAZINE HCL 20 MG/ML VIAL IV PRN (23:05)
[2023-03-06] MEDS: LEVOTHYROXINE SODIUM 150 MCG TABLET PO SCH (05:52)
[2023-03-06 07:49] LABS: BUN Creatinine Ratio 39.5 (10-20); Calcium 8.8 mg/dl (8.6-10.3); Creatinine Clr Calc Pharmacy 68.6 ml/min; Est GFR (African American) 76.6 ml/min; Est GFR (Non-African American) 66.1 ml/min; Magnesium 1.9 mg/dl (1.7-2.4); Potassium 4.3 mmol/L (3.5-5.1)
[2023-03-06] MEDS: methylPREDNISolone 40 MG in SYRINGE 0 ML IV SCH ×2 (07:59→21:23)
[2023-03-06] MEDS: LOSARTAN POTASSIUM 50 MG TAB PO SCH (07:59)
[2023-03-06] MEDS: HEPARIN SOD 5,000 UNIT/0.5 ML VIAL SQ SCH (08:00)
[2023-03-06] MEDS: FLUTICASONE/VILANTEROL 100/25MCG 14 PUFFS/INHALER INH SCH (08:00)
[2023-03-06] MEDS: POTASSIUM CHLORIDE PWD 20 MEQ PACK PO SCH (08:01)
[2023-03-06] MEDS: INSULIN ASPART PER UNIT CHARGE SC SCH ×4 (08:29→21:23)
[2023-03-06] MEDS: LANTUS PER UNIT CHARGE SC SCH ×2 (08:29→21:23)
[2023-03-06] MEDS ORDERED: MAGNESIUM SULFATE / D5W 1 GM/100 ML BAG IV ONE (09:22)
[2023-03-06] MEDS ORDERED: BUMETANIDE 2 MG in SYRINGE 0 ML IV ONE (10:15)
[2023-03-06] MEDS: ALBUTEROL 0.083% NEBU SOLN 3 ML VIAL INH PRN (14:37)
--- NOTE | 2023-03-06 19:15 | Hospitalist Progress Note ---
Date of Service March 06, 2023 Assessment & Plan (1) Acute and chronic respiratory failure with hypoxia: Plan: Presents with severe hypoxia with pulse ox in the high 60s, shortness of breath, elevated BNP, chest x-ray with pleural effusions and pulmonary edema. Initially required BiPAP in the ER She has severe peripheral edema but unclear what her baseline is although she thinks it is worse than usual. Weight is somewhat up from baseline. Secondary to acute on chronic HFpEF She is weaned down to 5 L nasal cannula but could likely be weaned further, however she is anxious and asked for higher levels of oxygen then likely as needed as per nursing -Admitted to PCU on telemetry monitoring-no arrhythmias thus far -Continue supplemental O2 to keep pulse ox greater than 90%-diuresis for heart failure as below -Continue albuterol nebulizer treatments as needed -Continue steroids in the form of Solu-Medrol 40 Mg IV twice daily -Likely asthma exacerbation also contributing (2) Acute on chronic heart failure with preserved ejection fraction (HFpEF): Plan: As above. Weight is up from previous and she did not diurese much with 1 mg IV Bumex twice daily yesterday -Give Bumex 2 Mg IV this morning and reassess later in the evening for further diuresis -Strict I's and O's, daily weights, change to low-sodium diet, add fluid restriction of 1500 mL/day -No need for repeat echocardiogram at this point -With mildly elevated troponin at /40-likely demand ischemia from hypoxia and heart failure -No ischemic changes on ECG, no chest pain -Enrolled in CHF clinic -Needs improved blood pressure control-has multiple sensitivities to medications. Continue losartan 100 mg daily, give hydralazine IV as needed for elevated blood pressure, diuresing with IV Bumex. She was recently taken off amlodipine due to peripheral edema and has an allergy to nifedipine and diltiazem. She is supposed to be on spironolactone but as per last admission, was refusing to take it. Unclear if she has tried [id number] discuss with her -Monitor on telemetry for arrhythmias (3) Asthma exacerbation: Plan: -Continue steroids, bronchodilators (4) COPD (chronic obstructive pulmonary disease): Plan: Refuses long-acting maintenance inhalers Supplemental O2 as needed Steroids May need to start doxycycline to cover for COPD exacerbation but she is very hesitant to take any new medications (5) HTN (hypertension): Plan: Blood pressures are elevated here -Needs improved control -Diuresing, continue home losartan and give hydralazine as needed for now (6) Hypothyroidism, postablative: Plan: Recent TSH quite high at 25 and levothyroxine dose was increased to 150 mcg -Suspect gut wall edema is preventing good absorption although she is on Bumex -Continue home dose of levothyroxine for now and follow-up as an outpatient (7) Lymphedema: Plan: Apparently her lower extremity edema is much worse over the last year or 2 She does have lymphedema therapy and compression wraps through a lymphedema specialist that comes to her house Diurese with Bumex IV (8) Type 2 diabetes mellitus with peripheral neuropathy: Plan: Blood glucose is still quite elevated while on corticosteroids Increase Lantus again to 25 units twice daily and tighten down NovoLog sliding scale again with correction factor down to 18, decrease carb ratio down to 8 Recent hemoglobin A1c is 7.7% which is fairly well controlled Plan DVT prophylaxis-she is refusing heparin SQ-discontinue Disposition-continued stay on PCU, she is wheelchair-bound at baseline but will place PT/OT consults to see if she can do transfers on her own Full code as discussed with patient, but reports that she would not want prolonged life support if she is in a vegetative state but would want to be kept alive long enough for her children to see her prior to her to help give them closure. Admission and Anticipated Discharge Date Admission Date: March 05, 2023 Subjective Patient feeling better today, less short of breath. She is making plenty of uri ne Telemetry with normal sinus rhythm with rates in the 90s Physical Exam Constitutional: WD/WN, vitals as above Eyes: + anicteric sclerae Neck: trachea midline, no thyromegaly Respiratory: normal respiratory effort; no cough Auscultation: + diminished lung sounds (Throughout) and + crackles (Mild at left base, improved from previous); no rhonchi and no wheezes Cardiovascular: Rate/Rhythm: regular rate and regular rhythm Heart Sounds: no murmur Extremities: + edema (4+ pitting edema to the thighs bilaterally) Gastrointestinal (Abdomen): normal bowel sounds, soft, nontender, no hepatosplenomegaly Musculoskeletal: Extremities: extremities normal to inspection; no cyanosis and no clubbing Skin: no rashes, warm and dry Neurologic: moves all extremities and awake; no focal motor deficits Psychiatric: Orientation: alert, oriented x 3 and cooperative Affect: + anx ious affect Results & Data Results & Data Vital Signs (Past 12 Hours) Vital Signs Temp Pulse Pulse Resp BP Pulse Ox O2 Del Method 03/06/23 15:07 36.9 C 92 H 18 176/75 H 95 Nasal Cannula 03/06/23 14:38 88 19 95 Nasal Cannula 03/06/23 11:33 36.9 C 88 17 182/86 H 98 Nasal Cannula 03/06/23 08:00 89 03/06/23 08:00 Nasal Cannula 03/06/23 07:46 36.9 C 92 H 16 178/84 H 96 Nasal Cannula O2 Flow Rate 03/06/23 15:07 5 03/06/23 14:38 5 03/06/23 11:33 5 03/06/23 08:00 03/06/23 08:00 5 03/06/23 07:46 5 Laboratory Results troponin, BMP, magnesium level reviewed PG Care Time/CCT Total # of Minutes Spent Total Time Spent with Patient: Total time spent is greater than 50% in coordination of care (as documented) at patient's floor/unit and/or counseling patient: Coding Level of Care Code 74388 SUB INP/OBS CARE 3/50MIN Diagnoses Acute and chronic respiratory failure with hypoxia J96.21 Acute on chronic heart failure with preserved ejection fraction (HFpEF) I50.33 Asthma exacerbation J45.901 COPD (chronic obstructive pulmonary disease) J44.9 HTN (hypertension) I10 Hypertension type: essential hypertension Hypothyroidism, postablative E89.0 Lymphedema I89.0 Type 2 diabetes mellitus with peripheral neuropathy E11.42 (5) HTN (hypertension) Hypertension type: essential hypertension Qualified Code(s): I10 - Essential (primary) hypertension
[2023-03-06] MEDS ORDERED: BUMETANIDE 1 MG in SYRINGE 0 ML IV ONE (19:30)
[2023-03-07] MEDS: hydrALAZINE HCL 20 MG/ML VIAL IV PRN ×2 (04:07→15:53)
[2023-03-07] MEDS: LEVOTHYROXINE SODIUM 150 MCG TABLET PO SCH (06:03)
[2023-03-07 07:21] LABS: BUN Creatinine Ratio 42.3 (10-20); Calcium 8.7 mg/dl (8.6-10.3); Creatinine Clr Calc Pharmacy 55.8 ml/min; Est GFR (African American) 60.9 ml/min; Est GFR (Non-African American) 52.5 ml/min; Potassium 4.5 mmol/L (3.5-5.1)
[2023-03-07] MEDS: INSULIN ASPART PER UNIT CHARGE SC SCH ×4 (08:43→21:40)
[2023-03-07] MEDS: LANTUS PER UNIT CHARGE SC SCH ×2 (08:44→21:41)
[2023-03-07] MEDS: LOSARTAN POTASSIUM 50 MG TAB PO SCH (08:47)
[2023-03-07] MEDS: POTASSIUM CHLORIDE PWD 20 MEQ PACK PO SCH (08:48)
[2023-03-07] MEDS ORDERED: BUMETANIDE 2 MG in SYRINGE 0 ML IV SCH (09:00)
[2023-03-07] MEDS: methylPREDNISolone 40 MG in SYRINGE 0 ML IV SCH (10:00)
--- NOTE | 2023-03-07 15:26 | Hospitalist Progress Note ---
Date of Service March 07, 2023 Assessment & Plan (1) Acute and chronic respiratory failure with hypoxia: Plan: Presents with severe hypoxia with pulse ox in the high 60s, shortness of breath, elevated BNP, chest x-ray with pleural effusions and pulmonary edema. Initially required BiPAP in the ER and now weaned to 4 LNC She has severe peripheral edema but unclear what her baseline is although she thinks it is worse than usual. Weight is somewhat up from baseline. Secondary to acute on chronic HFpEF Peripheral edema starting to improve with diuresis -Continue telemetry monitoring-no arrhythmias thus far -Continue supplemental O2 to keep pulse ox greater than 90%-diuresis for heart failure as below -Continue albuterol nebulizer treatments as needed -Continue steroids but given significant hypertension, will discontinue Solu- Medrol 40 Mg IV twice daily and convert to prednisone 40 mg daily for tomorrow -Likely asthma exacerbation also contributing-wheezing resolved (2) Acute on chronic heart failure with preserved ejection fraction (HFpEF): Plan: As above. Weight is up from previous and she did not diurese much with 1 mg IV Bumex twice daily initially She was given 2 mg of Bumex on 03/06 with significant response, however she is refusing to have higher dose Lasix as it made her urinate too much Weight is down 3 kg, weaned down to 4 LNC, peripheral edema improving -Continue Bumex 1 mg IV once daily as patient will not allow more than this to be given in 1 day -Strict I's and O's, daily weights, low-sodium diet, fluid restriction of 1500 mL/day -No need for repeat echocardiogram at this point -With mildly elevated troponin at -likely demand ischemia from hypoxia and heart failure -No ischemic changes on ECG, no chest pain -Enrolled in CHF clinic -Needs improved blood pressure control-has multiple sensitivities to medications. Continue losartan 100 mg daily, give hydralazine IV as needed for elevated blood pressure, diuresing with IV Bumex. She was recently taken off amlodipine due to peripheral edema and has an allergy to nifedipine and diltiazem. She is supposed to be on spironolactone but as per last admission, was refusing to take it. Unclear if she has tried [id number] discuss -Monitor on telemetry for arrhythmias (3) Asthma exacerbation: Plan: -Continue steroids, bronchodilators (4) COPD (chronic obstructive pulmonary disease): Plan: Refuses long-acting maintenance inhalers Supplemental O2 as needed Steroids No need for antibiotic coverage (5) HTN (hypertension): Plan: Blood pressures are elevated here -Needs improved control -Diuresing, continue home losartan and give hydralazine as needed for now (6) Hypothyroidism, postablative: Plan: Recent TSH quite high at 25 and levothyroxine dose was increased to 150 mcg -Suspect gut wall edema is preventing good absorption although she is on Bumex -Continue home dose of levothyroxine for now and follow-up as an outpatient (7) Lymphedema: Plan: Apparently her lower extremity edema is much worse over the last year or 2 She does have lymphedema therapy and compression wraps through a lymphedema specialist that comes to her house Diurese with Bumex IV (8) Type 2 diabetes mellitus with peripheral neuropathy: Plan: Blood glucose continues to be elevated while on corticosteroids Continue Lantus 25 units twice daily and tighten down NovoLog sliding scale again with correction factor 18, decrease carb ratio down to 5 Recent hemoglobin A1c is 7.7% which is fairly well controlled Plan DVT prophylaxis-she is refusing heparin SQ-discontinued Disposition-continued stay on PCU, she is wheelchair-bound at baseline but will place PT/OT consults to see if she can do transfers on her own. Would keep in- house to diurese with IV diuretics until significant amount of fluid is removed as she tends to be noncompliant with diuretic therapy at home Full code as discussed with patient, but reports that she would not want prolonged life support if she is in a vegetative state but would want to be kept alive long enough for her children to see her prior to her to help give them closure. Admission and Anticipated Discharge Date Admission Date: March 05, 2023 Subjective Patient refused to take IV Bumex this morning because she urinated too much yesterday and had incontinence in the bed and was distressed by this. I convinced her to take a lower dose of IV Bumex in the early afternoon. She is also concerned about her elevated blood pressures and thinks it is from the steroids. Feels less short of breath. Moved her bowels today Telemetry with normal sinus rhythm with rates in the 80s Physical Exam Constitutional: WD/WN, vitals as above Eyes: + anicteric sclerae Neck: trachea midline, no thyromegaly Respiratory: normal respiratory effort; no cough Auscultation: + diminished lung sounds (Throughout) and + crackles (Mild at left base, improved from previous); no rhonchi and no wheezes Cardiovascular: Rate/Rhythm: regular rate and regular rhythm Heart Sounds: no murmur Extremities: + edema (3+ pitting edema to the thighs bilaterally, starting to get wrinkles) Gastrointestinal (Abdomen): normal bowel sounds, soft, nontender, no hepatosplenomegaly Musculoskeletal: Extremities: no cyanosis and no clubbing Neurologic: moves all extremities and awake; no focal motor deficits Psychiatric: Orientation: alert, oriented x 3 and cooperative Affect: + anxious affect Results & Data Results & Data Vital Signs (Past 12 Hours) Vital Signs Temp Pulse Pulse Resp BP BP Pulse Ox 03/07/23 11:28 37 C 94 H 18 189/97 H 196/93 H 97 03/07/23 08:00 86 03/07/23 08:00 03/07/23 07:40 36.7 C 81 18 189/90 H 99 O2 Del Method O2 Flow Rate 03/07/23 11:28 Nasal Cannula 4 03/07/23 08:00 03/07/23 08:00 Nasal Cannula 5 03/07/23 07:40 Nasal Cannula 4 Laboratory Results BMP, magnesium reviewed PG Care Time/CCT Total # of Minutes Spent Total Time Spent with Patient: Total time spent is greater than 50% in coordination of care (as documented) at patient's floor/unit and/or counseling patient: Coding Level of Care Code 59988 SUB INP/OBS CARE 2/35MIN Diagnoses Acute and chronic respiratory failure with hypoxia J96.21 Acute on chronic heart failure with preserved ejection fraction (HFpEF) I50.33 Asthma exacerbation J45.901 COPD (chronic obstructive pulmonary disease) J44.9 HTN (hypertension) I10 Hypertension type: essential hypertension Hypothyroidism, postablative E89.0 Lymphedema I89.0 Type 2 diabetes mellitus with peripheral neuropathy E11.42 (5) HTN (hypertension) Hypertension type: essential hypertension Qualified Code(s): I10 - Essential (primary) hypertension
[2023-03-07] MEDS ORDERED: BUMETANIDE 1 MG in SYRINGE 0 ML IV ONE (15:45)
[2023-03-07] MEDS: ALBUTEROL 0.083% NEBU SOLN 3 ML VIAL INH PRN (18:18)
[2023-03-07 23:16] LABS: Appearance Urine Clear (Clear); Bacteria Urine Automated Negative (Negative); Bilirubin Urine Negative (Negative); Blood Urine Negative (Negative); Color Urine Yellow; Epithelial Cell Urine Auto 0-5 /lpf (0-5); Glucose Urine UA Trace (Negative); Ketones Urine Negative (Negative); Leukocyte Esterase Urine Negative (Negative); Nitrite Urine Negative (Negative); Protein Urine 2+ (Negative); RBC Urine Automated 0-4 /hpf (0-4); Specific Gravity Urine 1.012 (1.000-1.030); Urobilinogen Urine Negative (Negative); WBC Urine Automated 0 /hpf (0-5); pH Urine 5.5 (4.5-7.5)
[2023-03-08] MEDS: LEVOTHYROXINE SODIUM 150 MCG TABLET PO SCH (06:30)
[2023-03-08 08:28] LABS: BUN Creatinine Ratio 42.7 (10-20); Calcium 8.8 mg/dl (8.6-10.3); Creatinine Clr Calc Pharmacy 60.6 ml/min; Est GFR (African American) 67.1 ml/min; Est GFR (Non-African American) 57.9 ml/min; Magnesium 1.9 mg/dl (1.7-2.4)
[2023-03-08] MEDS: INSULIN ASPART PER UNIT CHARGE SC SCH ×4 (08:45→20:37)
[2023-03-08] MEDS: LOSARTAN POTASSIUM 50 MG TAB PO SCH (08:46)
[2023-03-08] MEDS: LANTUS PER UNIT CHARGE SC SCH ×2 (08:46→20:36)
[2023-03-08] MEDS: POTASSIUM CHLORIDE PWD 20 MEQ PACK PO SCH (08:46)
[2023-03-08] MEDS ORDERED: BUMETANIDE 1 MG in SYRINGE 0 ML IV SCH (09:00)
[2023-03-08] MEDS ORDERED: predniSONE 20 MG TAB PO SCH (09:00)
[2023-03-08] MEDS: ALBUTEROL 0.083% NEBU SOLN 3 ML VIAL INH PRN (10:39)
[2023-03-08] MEDS: BUMETANIDE 2 MG in SYRINGE 0 ML IV SCH (11:46)
--- NOTE | 2023-03-08 17:58 | Hospitalist Progress Note ---
Date of Service March 08, 2023 Assessment & Plan (1) Acute and chronic respiratory failure with hypoxia: Plan: Presents with severe hypoxia with pulse ox in the high 60s, shortness of breath, elevated BNP, chest x-ray with pleural effusions and pulmonary edema. Initially required BiPAP in the ER and now weaned to 4 LNC but pulse ox is 98% on 4L She has severe peripheral edema but unclear what her baseline is although she thinks it is worse than usual. Weight is somewhat up from baseline. Secondary to acute on chronic HFpEF Peripheral edema now improved with diuresis but is still quite hypervolemic -Continue telemetry monitoring-no arrhythmias thus far -Continue supplemental O2 to keep pulse ox greater than 90% -diuresis for heart failure as below -Continue albuterol nebulizer treatments as needed-patient requests home nebulizer machine to be delivered to the hospital prior to discharge as she previously did not receive it at home -Continue steroids for asthma exacerbation with prednisone taper-go down to 30 mg daily for tomorrow -Likely asthma exacerbation also contributing-wheezing resolved (2) Acute on chronic heart failure with preserved ejection fraction (HFpEF): Plan: As above. Weight is up from previous and she did not diurese much with 1 mg IV Bumex twice daily initially She was given 2 mg of Bumex on 03/06 with significant response, however she was then refusing to have higher dose Lasix as it made her urinate too much She is now okay with higher dose Bumex with Nassra catheter in place to prevent incontinence Weight is down follow-up, I's and O's are net -3.4 L, she is weaned down to 4 LNC, peripheral edema improving since admission Of note, she is starting to develop potentially a contraction metabolic alkalosis with serum bicarbonate up to 41 -Continue Bumex 2 mg IV once daily until creatinine start to rise -Strict I's and O's, daily weights, low-sodium diet, fluid restriction of 1500 mL/day -No need for repeat echocardiogram at this point -With mildly elevated troponin at -likely demand ischemia from hypoxia and heart failure -No ischemic changes on ECG, no chest pain -Enrolled in CHF clinic -Needs improved blood pressure control-has multiple sensitivities to medications. Continue losartan 100 mg daily, give hydralazine IV as needed for elevated blood pressure, diuresing with IV Bumex. She was recently taken off amlodipine due to peripheral edema and has an allergy to nifedipine and diltiazem. She is supposed to be on spironolactone but as per last admission, was refusing to take it. Unclear if she has tried beta-blockers -Monitor on telemetry for arrhythmias -Monitor BMP, magnesium and replace electrolytes as needed-continue daily potassium chloride, replace magnesium as needed (3) Asthma exacerbation: Plan: -Continue steroids, bronchodilators (4) COPD (chronic obstructive pulmonary disease): Plan: Refuses long-acting maintenance inhalers Supplemental O2 as needed Steroids No need for antibiotic coverage -continue as needed albuterol nebulizer-requests nebulizer machine for at home (5) HTN (hypertension): Plan: Blood pressures are elevated here -Needs improved control -Diuresing, continue home losartan and give hydralazine as needed for now -See above (6) Hypothyroidism, postablative: Plan: Recent TSH quite high at 25 and levothyroxine dose was increased to 150 mcg -Suspect gut wall edema is preventing good absorption although she is on Bumex -Continue home dose of levothyroxine for now and follow-up as an outpatient (7) Lymphedema: Plan: Apparently her lower extremity edema is much worse over the last year or 2 She does have lymphedema therapy and compression wraps through a lymphedema specialist that comes to her house Diurese with Bumex IV (8) Type 2 diabetes mellitus with peripheral neuropathy: Plan: Blood glucose was elevated since being on corticosteroids, but is now improving with increased doses of insulin Continue Lantus 25 units twice daily and continue same NovoLog sliding scale with correction factor 18, carb ratio 5 Recent hemoglobin A1c is 7.7% which is fairly well controlled Plan DVT prophylaxis-she is refusing heparin SQ-discontinued Disposition-continued stay on PCU, she is wheelchair-bound at baseline but will place PT/OT consults to see if she can do transfers on her own. Would keep in- house to diurese with IV diuretics until significant amount of fluid is removed as she tends to be noncompliant with diuretic therapy at home Full code as discussed with patient, but reports that she would not want prolonged life support if she is in a vegetative state but would want to be kept alive long enough for her children to see her prior to her to help give them closure. Admission and Anticipated Discharge Date Admission Date: March 05, 2023 Subjective Patient reports occasional episodes of shortness of breath. She was agreeable to excepting IV Lasix at a higher dose this morning after placing a Nassar catheter to ensure no urinary incontinence. Discussed her care with CHF clinic PA who knows this patient well, Alma Dasilva. Patient reports she is moving her bowels regularly once a day and has no other complaints. Telemetry with normal sinus rhythm with rates in the 80s to 100s. Physical Exam Constitutional: WD/WN, vitals as above Eyes: + anicteric sclerae Neck: trachea midline, no thyromegaly Respiratory: normal respiratory effort; no cough Auscultation: + diminished lung sounds (Throughout) and + crackles (Mild at left base, improved from previous); no rhonchi and no wheezes Cardiovascular: Rate/Rhythm: regular rate and regular rhythm Heart Sounds: no murmur Extremities: + edema (3+ pitting edema to the thighs bilaterally, starting to get wrinkles) Gastrointestinal (Abdomen): normal bowel sounds, soft, nontender, no hepatosplenomegaly Musculoskeletal: Extremities: extremities normal to inspection; no cyanosis and no clubbing Skin: no rashes, warm and dry Neurologic: moves all extremities and awake; no focal motor deficits Psychiatric: Orientation: alert, oriented x 3 and cooperative Affect: + anxious affect Results & Data Results & Data Vital Signs (Past 12 Hours) Vital Signs Temp Pulse Pulse Resp BP Pulse Ox O2 Del Method 03/08/23 08:00 Nasal Cannula 03/08/23 15:50 36.6 C 92 H 16 187/80 H 96 Nasal Cannula 03/08/23 11:36 36.7 C 99 H 16 172/73 H 97 Nasal Cannula 03/08/23 10:39 93 H 22 97 Nasal Cannula 03/08/23 07:00 83 03/08/23 07:44 36.7 C 86 16 180/84 H 99 Nasal Cannula O2 Flow Rate 03/08/23 08:00 4 03/08/23 15:50 4 03/08/23 11:36 4 03/08/23 10:39 4 03/08/23 07:00 03/08/23 07:44 Laboratory Results BMP, magnesium levels, UA reviewed PG Care Time/CCT Total # of Minutes Spent Total Time Spent with Patient: Total time spent is greater than 50% in coordination of care (as documented) at patient's floor/unit and/or counseling patient: Coding Level of Care Code 76434 SUB INP/OBS CARE MIN Diagnoses Acute and chronic respiratory failure with hypoxia J96.21 Acute on chronic heart failure with preserved ejection fraction (HFpEF) I50.33 Asthma exacerbation J45.901 COPD (chronic obstructive pulmonary disease) J44.9 HTN (hypertension) I10 Hypertension type: essential hypertension Hypothyroidism, postablative E89.0 Lymphedema I89.0 Type 2 diabetes mellitus with peripheral neuropathy E11.42 (5) HTN (hypertension) Hypertension type: essential hypertension Qualified Code(s): I10 - Essential (primary) hypertension
[2023-03-09] MEDS: hydrALAZINE HCL 20 MG/ML VIAL IV PRN (02:19)
[2023-03-09] MEDS: LEVOTHYROXINE SODIUM 150 MCG TABLET PO SCH (05:21)
[2023-03-09] MEDS: INSULIN ASPART PER UNIT CHARGE SC SCH ×4 (07:50→20:20)
[2023-03-09 08:43] LABS: BUN Creatinine Ratio 53.2 (10-20); Calcium 8.5 mg/dl (8.6-10.3); Est GFR (African American) 87.5 ml/min; Est GFR (Non-African American) 75.5 ml/min; Magnesium 1.8 mg/dl (1.7-2.4); Potassium 3.7 mmol/L (3.5-5.1)
[2023-03-09] MEDS: LOSARTAN POTASSIUM 50 MG TAB PO SCH (09:17)
[2023-03-09] MEDS: POTASSIUM CHLORIDE PWD 20 MEQ PACK PO SCH (09:17)
[2023-03-09] MEDS: BUMETANIDE 2 MG in SYRINGE 0 ML IV SCH (09:17)
[2023-03-09] MEDS: predniSONE 10 MG TABLET PO SCH (09:18)
[2023-03-09] MEDS: LANTUS PER UNIT CHARGE SC SCH ×2 (09:25→20:21)
--- NOTE | 2023-03-09 15:52 | Hospitalist Progress Note ---
Date of Service March 09, 2023 Assessment & Plan (1) Acute and chronic respiratory failure with hypoxia: Plan: uses NC O2 at home although uncertain if continuous or prn. presented with severe distress requiring BIPAP. acute resp failure 2nd to #2 below. improving - off BIPAP, now back to 4 L NC O2. (2) Acute on chronic heart failure with preserved ejection fraction (HFpEF): Plan: Volume status improving with once daily bumex. By report she is noncompliant with diuretics and multiple other meds at home. Follows with TASHIA Cam, in the [facility]F clinic. Multiple admissions for acute/chronic CHF noted in 2021 and 2022. Decompensated hypothyroidism will also contribute to clinical picture. Uncertain on how to address her noncompliance. Will discuss care with Carolee Dasilva. Needs better BP control - ideally she take metoprolol or carvedilol. BMP am. (3) Asthma exacerbation: Plan: Continue prednisone + bronchodilators Wean NC O2 as tolerated Suspect most of her current pulmonary symptoms are due to decompensated CHF, however (4) COPD (chronic obstructive pulmonary disease): Plan: Refuses long-acting maintenance inhalers Supplemental O2 as needed Steroid wean (5) HTN (hypertension): Plan: Uncontrolled Cont ARB Ideally add beta vero while here if patient is agreeable (6) Hypothyroidism, postablative: Plan: Recent TSH quite high at 25 and levothyroxine dose was increased to 150 mcg Review of TSH levels going back to 02/2020 show ALL LEVELS have been high This is very suggestive of noncompliance with her synthroid Will stress the importance of compliance (7) Lymphedema: Plan: She does have lymphedema therapy and compression wraps through a lymphedema specialist that comes to her house Cont bumex (8) Type 2 diabetes mellitus with peripheral neuropathy: Plan: Cont lantus Cont novolog No changes today Recent hemoglobin A1c 7.7% Plan Patient has previously refused chemical DVT proph - Dr Jensen was notified of such and d/c heparin since she would not take it PT, OT when able update family tomorrow Admission and Anticipated Discharge Date Admission Date: March 05, 2023 Subjective tele - NSR patient sitting in chair states breathing is better in comparison to admission states she is "wheezing" still and having mild cough she attributes most of her pulmonary symptoms to long-standing asthma continues with LE edema Review of Systems Review of Systems: gen - eating well cv - no chest pain; orthopnea/PND/edema of legs pulm - dyspnea on exertion with moving from bed to chair GI - no nausea/emesis Physical Exam Physical Exam: gen - NAD, sitting in chair comfortably mouth - MMM neck - no JVD sitting upright at 90 degrees heart - RRR, s1 s2 lungs - diffuse basilar rales, decreased BS bases, no wheeze, no increased work of breathing abd - distended (body wall edema? ascites?); BS+; NT ext - 2-3+ edema b/l legs extending to the thighs psych - a/o x 3 Results & Data Results & Data Vital Signs (Past 12 Hours) Vital Signs Temp Pulse Resp BP BP Pulse Ox O2 Del Method 03/09/23 08:00 Nasal Cannula 03/09/23 11:29 37.0 C 95 H 19 167/79 H 97 Nasal Cannula 03/09/23 07:36 36.7 C 88 19 163/79 H 97 Nasal Cannula O2 Flow Rate 03/09/23 08:00 4 03/09/23 11:29 3.0 03/09/23 07:36 4.0 Laboratory Results Laboratory Results - last 48 hr 03/09/23 03/09/23 03/09/23 07:13 07:29 11:26 Sodium 141 Potassium 3.7 Chloride 98 Carbon Dioxide 41 H* Anion Gap 2 L BUN 41 H Creatinine 0.77 Est Cr Clr Drug Dosing 76.0 Est GFR ( Amer) 87.5 Est GFR (Non-Af Amer) 75.5 BUN/Creatinine Ratio 53.2 H Glucose 72 POC Glucose 71 104 H Calcium 8.5 L Magnesium 1.8 03/09/23 16:10 Sodium Potassium Chloride Carbon Dioxide Anion Gap BUN Creatinine Est Cr Clr Drug Dosing Est GFR ( Amer) Est GFR (Non-Af Amer) BUN/Creatinine Ratio Glucose POC Glucose 102 H Calcium Magnesium PG Care Time/CCT Total # of Minutes Spent Total Time Spent with Patient: Total time spent is greater than 50% in coordination of care (as documented) at patient's floor/unit and/or counseling patient: Coding Level of Care Code 57349 SUB INP/OBS CARE 2/35MIN Diagnoses Acute and chronic respiratory failure with hypoxia J96.21 Acute on chronic heart failure with preserved ejection fraction (HFpEF) I50.33 Asthma exacerbation J45.901 COPD (chronic obstructive pulmonary disease) J44.9 HTN (hypertension) I10 Hypertension type: essential hypertension Hypothyroidism, postablative E89.0 Lymphedema I89.0 Type 2 diabetes mellitus with peripheral neuropathy E11.42 (5) HTN (hypertension) Hypertension type: essential hypertension Qualified Code(s): I10 - Essential (primary) hypertension
[2023-03-10] MEDS: LEVOTHYROXINE SODIUM 150 MCG TABLET PO SCH (05:38)
[2023-03-10 08:04] LABS: BUN Creatinine Ratio 52.5 (10-20); Calcium 8.4 mg/dl (8.6-10.3); Creatinine Clr Calc Pharmacy 73.4 ml/min; Est GFR (African American) 83.6 ml/min; Est GFR (Non-African American) 72.1 ml/min; Magnesium 1.9 mg/dl (1.7-2.4); Potassium 3.9 mmol/L (3.5-5.1)
[2023-03-10] MEDS: predniSONE 10 MG TABLET PO SCH (08:18)
[2023-03-10] MEDS: LOSARTAN POTASSIUM 50 MG TAB PO SCH (08:18)
[2023-03-10] MEDS: BUMETANIDE 2 MG in SYRINGE 0 ML IV SCH (08:18)
[2023-03-10] MEDS: LANTUS PER UNIT CHARGE SC SCH (08:19)
[2023-03-10] MEDS: INSULIN ASPART PER UNIT CHARGE SC SCH ×4 (08:19→21:03)
[2023-03-10] MEDS: POTASSIUM CHLORIDE PWD 20 MEQ PACK PO SCH (08:19)
[2023-03-10] MEDS: acetaZOLAMIDE 250 MG TAB PO SCH ×2 (10:47→19:58)
[2023-03-10] MEDS: METOPROLOL TARTRATE 25 MG TAB PO SCH ×2 (14:46→21:04)
[2023-03-10] MEDS: LANTUS PER UNIT CHARGE SQ SCH (21:04)
--- NOTE | 2023-03-10 21:50 | Hospitalist Progress Note ---
Date of Service March 10, 2023 Assessment & Plan (1) Acute and chronic respiratory failure with hypoxia: Plan: uses NC O2 at home although uncertain if continuous or prn. presented with severe distress requiring BIPAP. acute resp failure 2nd to #2 below. improving - off BIPAP, now back to NC O2. cont diuresis, steroids, nebs, etc. (2) Acute on chronic heart failure with preserved ejection fraction (HFpEF): Plan: Volume status improving nicely with copious diuresis on daily bumex IV. Added BID diamox due to contaction alkalosis. Daily BMP. Daily weights. Needs better BP control as below. By report she is noncompliant with diuretics and multiple other meds at home. Follows with TASHIA Cam, in the [facility] CHF clinic. Multiple admissions for acute/chronic CHF noted in 2021 and 2022. Decompensated hypothyroidism will also contribute to clinical picture. Uncertain on how to address her noncompliance. Will discuss care with Carolee Dasilva. Needs better BP control - ideally she take metoprolol or carvedilol. Lengthy discussion today about this (see HPI). Hopefully she is ultimately agreeable to such. (3) Asthma exacerbation: Plan: Continue prednisone + bronchodilators but wean to prednisone 20mg daily starting AM tomorrow. Wean NC O2 as tolerated. Pt requests neb machine for home - will set this up/prescribe. Suspect most of her current pulmonary symptoms are due to decompensated CHF despite asthma/COPD history. (4) COPD (chronic obstructive pulmonary disease): Plan: Refuses long-acting maintenance inhalers Supplemental O2 as needed Steroid wean as above (5) HTN (hypertension): Plan: Uncontrolled Cont ARB Ideally add beta vero while here if patient is agreeable - see above in #2 (6) Hypothyroidism, postablative: Plan: Recent TSH quite high at 25 and levothyroxine dose was increased to 150 mcg Review of TSH levels going back to 02/2020 show ALL LEVELS have been high This is very suggestive of noncompliance with her synthroid Will stress the importance of compliance (7) Lymphedema: Plan: She does have lymphedema therapy and compression wraps through a lymphedema specialist that comes to her house Cont bumex (8) Type 2 diabetes mellitus with peripheral neuropathy: Plan: AM BSGs low-normal Cut back lantus Cut back novolog carb coverage Change goal range re-eval tomorrow Recent hemoglobin A1c 7.7% (9) Alkalosis: Plan: 2nd diuresis diamox 250mg PO BID x 3 days repeat BMP am Plan Patient has previously refused chemical DVT proph - Dr Jensen was notified of such and d/c heparin since she would not take it PT, OT when able I extensively updated pt's daughter, Ms Gee, by phone this evening progressing nicely with volume status Admission and Anticipated Discharge Date Admission Date: March 05, 2023 Subjective tele overnight wnl NSR pt sitting in chair she reports ongoing improvement in dyspnea and PANDEY she can take deeper breaths LE edema improving overall feels better we had lengthy discussion about her elevated BPs as well as adding a beta vero for her CHF and HTN discussed risks vs benefits she voiced understanding wishes to discuss beta vero with Ms Dasilva before starting it worries about meds due to frequent allergies/adverse reactions eating well drinking ok anxious to get home Review of Systems Review of Systems: gen - no fevers or chills cv - no chest pain; ongoing orthopnea and PANDEY pulm - minimal cough; no wheezing GI - no abd pain Physical Exam Physical Exam: gen - NAD, sitting in chair comfortably, looks good mouth - MMM neck - no JVD sitting upright at 90 degrees heart - RRR, s1 s2, no murmur lungs - b/l basilar rales but improved today; airation improved; mildly decreased BS bases; no wheeze, no increased work of breathing abd - distended but improved; BS+; NT; no obvious HSM ext - 2+ edema b/l legs extending to the thighs - improved; pulses 2+ b/l psych - a/o x 3 Results & Data Results & Data Vital Signs (Past 12 Hours) Vital Signs Temp Pulse Resp BP Pulse Ox O2 Del Method O2 Flow Rate 03/10/23 19:00 36.7 C 94 H 21 128/73 98 Nasal Cannula 03/10/23 16:00 36.7 C 91 H 18 150/75 H 98 Nasal Cannula 4.0 03/10/23 11:52 36.9 C 92 H 18 150/77 H 97 Nasal Cannula 4.0 Laboratory Results Laboratory Results - last 24 hr 03/10/23 03/10/23 03/10/23 06:41 07:25 10:57 Sodium 141 Potassium 3.9 Chloride 97 L Carbon Dioxide 42 H* Anion Gap 2 L BUN 42 H Creatinine 0.80 Est Cr Clr Drug Dosing 73.4 Est GFR ( Amer) 83.6 Est GFR (Non-Af Amer) 72.1 BUN/Creatinine Ratio 52.5 H Glucose 83 POC Glucose 73 122 H Calcium 8.4 L Magnesium 1.9 03/10/23 03/10/23 16:20 20:29 Sodium Potassium Chloride Carbon Dioxide Anion Gap BUN Creatinine Est Cr Clr Drug Dosing Est GFR ( Amer) Est GFR (Non-Af Amer) BUN/Creatinine Ratio Glucose POC Glucose 142 H 167 H Calcium Magnesium PG Care Time/CCT Total # of Minutes Spent Total Time Spent with Patient: Total time spent is greater than 50% in coordination of care (as documented) at patient's floor/unit and/or counseling patient: Coding Level of Care Code 57279 SUB INP/OBS CARE 2/35MIN Diagnoses Acute and chronic respiratory failure with hypoxia J96.21 Acute on chronic heart failure with preserved ejection fraction (HFpEF) I50.33 Asthma exacerbation J45.901 COPD (chronic obstructive pulmonary disease) J44.9 HTN (hypertension) I10 Hypertension type: essential hypertension Hypothyroidism, postablative E89.0 Lymphedema I89.0 Type 2 diabetes mellitus with peripheral neuropathy E11.42 Alkalosis E87.3 (5) HTN (hypertension) Hypertension type: essential hypertension Qualified Code(s): I10 - Essential (primary) hypertension
[2023-03-11] MEDS: LEVOTHYROXINE SODIUM 150 MCG TABLET PO SCH (05:59)
[2023-03-11] MEDS: ALBUTEROL 0.083% NEBU SOLN 3 ML VIAL INH PRN (07:35)
[2023-03-11 07:41] LABS: BUN Creatinine Ratio 50.6 (10-20); Calcium 8.5 mg/dl (8.6-10.3); Creatinine Clr Calc Pharmacy 67.2 ml/min; Est GFR (African American) 77.7 ml/min; Potassium 3.3 mmol/L (3.5-5.1)
[2023-03-11] MEDS: acetaZOLAMIDE 250 MG TAB PO SCH ×2 (08:21→20:34)
[2023-03-11] MEDS: LOSARTAN POTASSIUM 50 MG TAB PO SCH (08:21)
[2023-03-11] MEDS: METOPROLOL TARTRATE 25 MG TAB PO SCH ×3 (08:21→20:33)
[2023-03-11] MEDS: BUMETANIDE 2 MG in SYRINGE 0 ML IV SCH (08:22)
[2023-03-11] MEDS: POTASSIUM CHLORIDE PWD 20 MEQ PACK PO SCH (08:22)
[2023-03-11] MEDS: INSULIN ASPART PER UNIT CHARGE SC SCH ×4 (08:23→20:35)
[2023-03-11] MEDS: LANTUS PER UNIT CHARGE SQ SCH (08:24)
[2023-03-11] MEDS ORDERED: POTASSIUM CHLORIDE CRTAB 20 MEQ TABCR PO STA (08:56)
[2023-03-11] MEDS ORDERED: predniSONE 20 MG TAB PO SCH (09:00)
--- NOTE | 2023-03-11 18:28 | Hospitalist Progress Note ---
Date of Service March 11, 2023 Assessment & Plan (1) Acute and chronic respiratory failure with hypoxia: Plan: uses NC O2 at home on prn basis and, when she leaves her home, does not take it with her typically. presented with severe distress requiring BIPAP. acute resp failure 2nd to #2 below. cont to improve - off BIPAP, back to small amount of NC O2. cont diuresis, steroids, nebs, etc. (2) Acute on chronic heart failure with preserved ejection fraction (HFpEF): Plan: Volume status improving nicely with copious diuresis on daily bumex IV. Cont BID diamox day #2 of 3 due to contraction alkalosis. Daily BMP. Daily weights. Needs better BP control as below. By report she is noncompliant with diuretics and multiple other meds at home. Follows with TASHIA Cam, in the [facility] [place]. Multiple admissions for acute/chronic CHF noted in 2021 and 2022. Decompensated hypothyroidism will also contribute to clinical picture. Uncertain on how to address her noncompliance. This has been discussed with Carolee Dasilva. Needs better BP control - ideally she take metoprolol or carvedilol. Despite lengthy discussions on its importance she continues to refuse it. (3) Asthma exacerbation: Plan: Continue prednisone + bronchodilators but wean to prednisone 10mg daily starting AM tomorrow. Wean NC O2 as tolerated. Pt requests neb machine for home - will set this up/prescribe. Suspect most of her current pulmonary symptoms are due to decompensated CHF despite asthma/COPD history. (4) COPD (chronic obstructive pulmonary disease): Plan: Refuses long-acting maintenance inhalers Supplemental O2 as needed Steroid wean as above (5) HTN (hypertension): Plan: Uncontrolled Cont ARB Ideally add beta vero while here if patient is agreeable but thus far she is not (6) Hypothyroidism, postablative: Plan: Recent TSH quite high at 25 and levothyroxine dose was increased to 150 mcg Review of TSH levels going back to 02/2020 show ALL LEVELS have been high This is very suggestive of noncompliance with her synthroid Will stress the importance of compliance (7) Lymphedema: Plan: She does have lymphedema therapy and compression wraps through a lymphedema specialist that comes to her house Cont bumex (8) Type 2 diabetes mellitus with peripheral neuropathy: Plan: controlled cont basal-bolus insulins Recent hemoglobin A1c 7.7% (9) Alkalosis: Plan: 2nd diuresis diamox 250mg PO BID x 3 days; day #2 of such repeat BMP am Plan Patient has previously refused chemical DVT proph - Dr Jensen was notified of such and d/c heparin since she would not take it PT, OT I extensively updated pt's daughter, Ms Gee, by phone yesterday evening progressing nicely with volume status Admission and Anticipated Discharge Date Admission Date: March 05, 2023 Subjective tele stable overnight patient had brief episode of dyspnea this am after doing grooming activities this am otherwise feels ok sitting in chair w/o dyspnea no cough eating well still does not want to take metoprolol Review of Systems Review of Systems: cv - no chest pain pulm - no wheezing GI - no pain/N/V Physical Exam Physical Exam: gen - NAD, sitting in chair comfortably, looks good mouth - MMM neck - no JVD sitting upright at 90 degrees heart - RRR, s1 s2, no murmur lungs - b/l basilar rales - again improved; airation again improved; mildly decreased BS bases but airation improving; no wheeze, no increased work of breathing abd - distension resolved; BS+; NT; no obvious HSM ext - 1-2+ edema b/l legs extending to the thighs - improved; pulses 2+ b/l psych - a/o x 3 Results & Data Results & Data Vital Signs (Past 12 Hours) Vital Signs Temp Pulse Resp BP Pulse Ox O2 Del Method O2 Flow Rate 03/11/23 09:06 36.9 C 97 H 18 144/74 H 97 Nasal Cannula 2 03/11/23 08:00 Nasal Cannula 2 03/11/23 07:36 88 22 99 Nasal Cannula 4 Laboratory Results Laboratory Results - last 24 hr 03/10/23 03/11/23 03/11/23 20:29 06:25 07:24 Sodium 141 Potassium 3.3 L Chloride 98 Carbon Dioxide 40 H Anion Gap 3 BUN 43 H Creatinine 0.85 Est Cr Clr Drug Dosing 67.2 Est GFR ( Amer) 77.7 Est GFR (Non-Af Amer) 67.0 BUN/Creatinine Ratio 50.6 H Glucose 83 POC Glucose 167 H 89 Calcium 8.5 L 03/11/23 03/11/23 11:37 16:45 Sodium Potassium Chloride Carbon Dioxide Anion Gap BUN Creatinine Est Cr Clr Drug Dosing Est GFR ( Amer) Est GFR (Non-Af Amer) BUN/Creatinine Ratio Glucose POC Glucose 113 H 117 H Calcium PG Care Time/CCT Total # of Minutes Spent Total Time Spent with Patient: Total time spent is greater than 50% in coordination of care (as documented) at patient's floor/unit and/or counseling patient: Coding Level of Care Code 59874 SUB INP/OBS CARE 2/35MIN Diagnoses Acute and chronic respiratory failure with hypoxia J96.21 Acute on chronic heart failure with preserved ejection fraction (HFpEF) I50.33 Asthma exacerbation J45.901 COPD (chronic obstructive pulmonary disease) J44.9 HTN (hypertension) I10 Hypertension type: essential hypertension Hypothyroidism, postablative E89.0 Lymphedema I89.0 Type 2 diabetes mellitus with peripheral neuropathy E11.42 Alkalosis E87.3 (5) HTN (hypertension) Hypertension type: essential hypertension Qualified Code(s): I10 - Essential (primary) hypertension
[2023-03-11] MEDS ORDERED: LANTUS PER UNIT CHARGE SQ SCH (21:00)
[2023-03-12] MEDS: LEVOTHYROXINE SODIUM 150 MCG TABLET PO SCH (06:07)
[2023-03-12 06:58] LABS: Calcium 8.5 mg/dl (8.6-10.3); Creatinine Clr Calc Pharmacy 56.9 ml/min; Est GFR (African American) 63.8 ml/min; Est GFR (Non-African American) 55.1 ml/min; Potassium 3.6 mmol/L (3.5-5.1)
[2023-03-12] MEDS: INSULIN ASPART PER UNIT CHARGE SC SCH ×4 (08:18→20:47)
[2023-03-12] MEDS: METOPROLOL TARTRATE 25 MG TAB PO SCH ×3 (08:22→20:49)
[2023-03-12] MEDS: acetaZOLAMIDE 250 MG TAB PO SCH ×2 (08:22→20:49)
[2023-03-12] MEDS: POTASSIUM CHLORIDE PWD 20 MEQ PACK PO SCH (08:22)
[2023-03-12] MEDS: LOSARTAN POTASSIUM 50 MG TAB PO SCH (08:23)
[2023-03-12] MEDS ORDERED: LANTUS PER UNIT CHARGE SQ SCH (09:00)
[2023-03-12] MEDS ORDERED: predniSONE 10 MG TABLET PO SCH (09:00)
[2023-03-12] MEDS: BUMETANIDE 2 MG in SYRINGE 0 ML IV SCH (09:03)
--- NOTE | 2023-03-12 19:13 | Hospitalist Progress Note ---
Date of Service March 12, 2023 Assessment & Plan (1) Acute and chronic respiratory failure with hypoxia: Plan: uses NC O2 at home on prn basis and, when she leaves her home, does not take it with her typically. presented with severe distress requiring BIPAP. acute resp failure 2nd to #2 below. cont to improve - off BIPAP, back to small amount of NC O2. weaning such. cont diuresis, steroids, nebs, etc. (2) Acute on chronic heart failure with preserved ejection fraction (HFpEF): Plan: Volume status continues to improve nicely. Weight down to 205 # (93kg). Lowest weight in quite some time. Cont BID diamox day #3 of 3 due to contraction alkalosis. Cont daily bumex 2mg IV. Daily BMP. Daily weights. Needs better BP control as below. By report she is noncompliant with diuretics and multiple other meds at home. Follows with TASHIA Cam, in the [facility] CHF clinic. Multiple admissions for acute/chronic CHF noted in 2021 and 2022. Decompensated hypothyroidism will also contribute to clinical picture. Uncertain on how to address her noncompliance. This has been discussed with Carolee Dasilva. Needs better BP control - ideally she take metoprolol and she finally indeed did take such this am at encouragement from her daughter. (3) Asthma exacerbation: Plan: Continue prednisone + bronchodilators but wean to prednisone 5mg tomorrow then STOP steroids. Wean NC O2 as tolerated. Pt requests neb machine for home - will set this up/prescribe. Suspect most of her current pulmonary symptoms were due to decompensated CHF ra ther than asthma/COPD history. (4) COPD (chronic obstructive pulmonary disease): Plan: Refuses long-acting maintenance inhalers Supplemental O2 as needed Steroid wean as above (5) HTN (hypertension): Plan: Uncontrolled Cont ARB Metoprolol 25mg BID added and she did take today (6) Hypothyroidism, postablative: Plan: Recent TSH quite high at 25 and levothyroxine dose was increased to 150 mcg Review of TSH levels going back to 02/2020 show ALL LEVELS have been high This is very suggestive of noncompliance with her synthroid Have stressed multiple times the importance of compliance and its link to volume status and CHF and overall health (7) Lymphedema: Plan: She does have lymphedema therapy and compression wraps through a lymphedema specialist that comes to her house Cont bumex Edema MUCH improved (8) Type 2 diabetes mellitus with peripheral neuropathy: Plan: controlled cont basal-bolus insulins but LOWER the lantus to once daily and loosen the novolog parameters once again Recent hemoglobin A1c 7.7% (9) Alkalosis: Plan: 2nd diuresis diamox 250mg PO BID x 3 days; day #3 of such HCO3 improved today repeat BMP am Plan Patient has previously refused chemical DVT proph - Dr Jensen was notified of such and d/c heparin since she would not take it cont PT, OT I extensively updated pt's daughter, Ms Gee, at bedside today progressing nicely with volume status dc naik tomorrow home next 48 hours?? Admission and Anticipated Discharge Date Admission Date: March 05, 2023 Subjective patient sitting in chair pt's daughter was present Ms [place] continues to feel better Dyspnea improved Had good night - no breathing difficulties while sleeping Still on small amount of NC O2 making copious urine she DID take the metoprolol this am we discussed once again reasons for such, potential side effects (very few), etc we had lengthy discussion about CHF and ways to stay euvolemic daughter [place] tele overnight wnl Review of Systems Review of Systems: gen - feels much better, good appetite cv - no chest pain, edema improved, no PND pulm - no cough GI - no pain or N/V Physical Exam Physical Exam: gen - NAD, sitting in chair comfortably, looks great mouth - MMM neck - no JVD sitting upright at 90 degrees heart - RRR, s1 s2, no murmur lungs - b/l basilar rales - mild at most, improved; airation again improved; mildly decreased BS bases only; no wheeze, no increased work of breathing abd - distension resolved; BS+; NT; no obvious HSM ext - 1+ edema b/l legs extending to just below the knees; pulses 2+ b/l psych - a/o x 3 Results & Data Results & Data Vital Signs (Past 12 Hours) Vital Signs Temp Pulse Pulse Resp BP Pulse Ox O2 Del Method 03/12/23 12:00 36.8 C 87 18 133/76 97 Nasal Cannula 03/12/23 15:38 36.8 C 79 18 125/63 97 Nasal Cannula 03/12/23 16:35 72 03/12/23 08:00 Nasal Cannula 03/12/23 07:59 36.7 C 83 18 149/67 H 96 Nasal Cannula O2 Flow Rate 03/12/23 12:00 2 03/12/23 15:38 2 03/12/23 16:35 03/12/23 08:00 2 03/12/23 07:59 2 Laboratory Results Laboratory Results - last 24 hr 03/11/23 03/12/23 03/12/23 20:10 06:05 08:02 Sodium 142 Potassium 3.6 Chloride 100 Carbon Dioxide 39 H Anion Gap 3 BUN 46 H Creatinine 1.00 Est Cr Clr Drug Dosing 56.9 Est GFR ( Amer) 63.8 Est GFR (Non-Af Amer) 55.1 BUN/Creatinine Ratio 46.0 H Glucose 87 POC Glucose 156 H 97 Calcium 8.5 L Magnesium 2.0 03/12/23 03/12/23 11:21 16:33 Sodium Potassium Chloride Carbon Dioxide Anion Gap BUN Creatinine Est Cr Clr Drug Dosing Est GFR ( Amer) Est GFR (Non-Af Amer) BUN/Creatinine Ratio Glucose POC Glucose 134 H 127 H Calcium Magnesium PG Care Time/CCT Total # of Minutes Spent Total Time Spent with Patient: Total time spent is greater than 50% in coordination of care (as documented) at patient's floor/unit and/or counseling patient: Coding Level of Care Code 63042 SUB INP/OBS CARE 2/35MIN Diagnoses Acute and chronic respiratory failure with hypoxia J96.21 Acute on chronic heart failure with preserved ejection fraction (HFpEF) I50.33 Asthma exacerbation J45.901 COPD (chronic obstructive pulmonary disease) J44.9 HTN (hypertension) I10 Hypertension type: essential hypertension Hypothyroidism, postablative E89.0 Lymphedema I89.0 Type 2 diabetes mellitus with peripheral neuropathy E11.42 Alkalosis E87.3 (5) HTN (hypertension) Hypertension type: essential hypertension Qualified Code(s): I10 - Essential (primary) hypertension
[2023-03-13] MEDS: LEVOTHYROXINE SODIUM 150 MCG TABLET PO SCH (06:46)
[2023-03-13 07:37] LABS: BUN Creatinine Ratio 47.5 (10-20); Calcium 8.5 mg/dl (8.6-10.3); Creatinine Clr Calc Pharmacy 57.3 ml/min; Est GFR (African American) 64.6 ml/min; Est GFR (Non-African American) 55.7 ml/min; Potassium 3.5 mmol/L (3.5-5.1)
[2023-03-13] MEDS: INSULIN ASPART PER UNIT CHARGE SC SCH ×4 (08:00→20:52)
[2023-03-13] MEDS: METOPROLOL TARTRATE 25 MG TAB PO SCH ×2 (08:54→21:06)
[2023-03-13] MEDS: LOSARTAN POTASSIUM 50 MG TAB PO SCH (08:54)
[2023-03-13] MEDS: acetaZOLAMIDE 250 MG TAB PO SCH (08:54)
[2023-03-13] MEDS ORDERED: predniSONE 5 MG TAB PO SCH (09:00)
[2023-03-13] MEDS: LANTUS PER UNIT CHARGE SQ SCH (09:00)
[2023-03-13] MEDS: BUMETANIDE 2 MG in SYRINGE 0 ML IV SCH (10:13)
[2023-03-13] MEDS: POTASSIUM CHLORIDE PWD 20 MEQ PACK PO SCH (10:56)
--- NOTE | 2023-03-13 17:27 | Hospitalist Progress Note ---
Date of Service March 13, 2023 Assessment & Plan (1) Acute and chronic respiratory failure with hypoxia: Plan: uses NC O2 at home on prn basis and, when she leaves her home, does not take it with her typically. presented with severe distress requiring BIPAP. acute resp failure was 2nd to decompensated CHF -- now resolved, off O2. (2) Acute on chronic heart failure with preserved ejection fraction (HFpEF): Plan: Volume status continues to improve nicely. Weight down to 203 #. Contraction alkalosis resolved with diamox. Pt's BUN nearly 50 today (some of that could be from steroids) but likely we are near euvolemia. Place bumex on hold. Repeat BMP in am. By report she is noncompliant with diuretics and multiple other meds at home. Follows with TASHIA Cam, in the [facility] [place] CHF clinic. Multiple admissions for acute/chronic CHF noted in 2021 and 2022. Decompensated hypothyroidism will also contribute to clinical picture. Uncertain on how to improve her noncompliance. BPs are improved with addition of metoprolol BID. Convert to metoprolol succinate at discharge. (3) Asthma exacerbation: Plan: Finish prednisone today Cont bronchodilators prn O2 has been weaned off Pt requests neb machine for home - will set this up/prescribe. Suspect most of her current pulmonary symptoms were due to decompensated CHF rather than asthma/COPD history. (4) COPD (chronic obstructive pulmonary disease): Plan: Refuses long-acting maintenance inhalers Supplemental O2 as needed Steroid wean as above PFTs 07/2022 with severe obstruction and severely depressed DLCO COPD the likely cause of chronic hypercapnea Recommended to her today that she should see [facility] Pulmonary post-discharge Would benefit from ongoing pulmonary care, sleep study, etc (5) HTN (hypertension): Plan: Improved BPs with addition of metoprolol Cont ARB (6) Hypothyroidism, postablative: Plan: Recent TSH quite high at 25 and levothyroxine dose was increased to 150 mcg Review of TSH levels going back to 02/2020 show ALL LEVELS have been high This is very suggestive of noncompliance with her synthroid Have stressed multiple times the importance of compliance and its link to volume status and CHF and overall health (7) Lymphedema: Plan: She does have lymphedema therapy and compression wraps through a lymphedema specialist that comes to her house Edema MUCH improved The remaining edema following her diuresis is c/w chronic lymphedema (8) Type 2 diabetes mellitus with peripheral neuropathy: Plan: controlled cont basal-bolus insulins Recent hemoglobin A1c 7.7% (9) Alkalosis: Plan: 2nd diuresis s/p diamox with resolution repeat BMP am Plan Patient has previously refused chemical DVT proph - Dr Jensen was notified of such and d/c heparin since she would not take it cont PT, OT I extensively updated pt's daughter, Ms Gee, at bedside yesterday home tomorrow ?? Admission and Anticipated Discharge Date Admission Date: March 05, 2023 Subjective tele overnight - NSR pt sitting in chair comfortably she feels better no dyspnea had good night last pm - no issues with orthopnea/PND she is worried about the potential for allergy with the new metoprolol eating well naik removed earlier today - has voided w/o difficulty since then no new complaints Review of Systems Review of Systems: gen - feeling much better, appetite wnl cv - no chest pain pulm - no cough GI - no nausea/emesis or pain Physical Exam Physical Exam: gen - NAD, sitting in chair comfortably, looks very good mouth - MMM neck - no JVD heart - RRR, s1 s2, no murmur lungs - scant b/l basilar rales; scantly decreased BS bases only; no wheeze, no increased work of breathing abd - distension resolved; BS+; NT; no obvious HSM; soft ext - 1+ edema b/l legs mainly just above ankles, ankles themselves, and feet; pulses 2+ b/l; remaining edema looks like lymphedema psych - a/o x 3 Results & Data Results & Data Vital Signs (Past 12 Hours) Vital Signs Temp Pulse Pulse Resp BP Pulse Ox O2 Del Method 03/13/23 16:53 37.0 C 74 18 120/60 97 Room Air 03/13/23 15:27 83 03/13/23 11:47 36.8 C 75 18 139/69 97 Room Air 03/13/23 08:00 36.9 C 86 18 142/74 H 99 Room Air 03/13/23 07:10 72 Laboratory Results Laboratory Results - last 24 hr 03/12/23 03/13/23 03/13/23 20:19 06:39 07:25 Sodium 142 Potassium 3.5 Chloride 101 Carbon Dioxide 37 H Anion Gap 4 BUN 47 H Creatinine 0.99 Est Cr Clr Drug Dosing 57.3 Est GFR ( Amer) 64.6 Est GFR (Non-Af Amer) 55.7 BUN/Creatinine Ratio 47.5 H Glucose 168 H POC Glucose 144 H 159 H Calcium 8.5 L 03/13/23 03/13/23 11:22 16:38 Sodium Potassium Chloride Carbon Dioxide Anion Gap BUN Creatinine Est Cr Clr Drug Dosing Est GFR ( Amer) Est GFR (Non-Af Amer) BUN/Creatinine Ratio Glucose POC Glucose 149 H 181 H Calcium PG Care Time/CCT Total # of Minutes Spent Total Time Spent with Patient: Total time spent is greater than 50% in coordination of care (as documented) at patient's floor/unit and/or counseling patient: Coding Level of Care Code 44811 SUB INP/OBS CARE 2/35MIN Diagnoses Acute and chronic respiratory failure with hypoxia J96.21 Acute on chronic heart failure with preserved ejection fraction (HFpEF) I50.33 Asthma exacerbation J45.901 COPD (chronic obstructive pulmonary disease) J44.9 HTN (hypertension) I10 Hypertension type: essential hypertension Hypothyroidism, postablative E89.0 Lymphedema I89.0 Type 2 diabetes mellitus with peripheral neuropathy E11.42 Alkalosis E87.3 (5) HTN (hypertension) Hypertension type: essential hypertension Qualified Code(s): I10 - Essential (primary) hypertension
[2023-03-14 06:58] LABS: BUN Creatinine Ratio 54.1 (10-20); Calcium 8.6 mg/dl (8.6-10.3); Creatinine Clr Calc Pharmacy 56.8 ml/min; Est GFR (African American) 65.4 ml/min; Est GFR (Non-African American) 56.4 ml/min; Potassium 3.5 mmol/L (3.5-5.1)
[2023-03-14] MEDS: LEVOTHYROXINE SODIUM 150 MCG TABLET PO SCH (07:52)
[2023-03-14] MEDS: INSULIN ASPART PER UNIT CHARGE SC SCH (08:20)
[2023-03-14] MEDS: LANTUS PER UNIT CHARGE SQ SCH (08:21)
[2023-03-14] MEDS: POTASSIUM CHLORIDE PWD 20 MEQ PACK PO SCH (08:54)
[2023-03-14] MEDS: LOSARTAN POTASSIUM 50 MG TAB PO SCH (08:54)
[2023-03-14] MEDS: METOPROLOL TARTRATE 25 MG TAB PO SCH (08:54)
[2023-03-14] MEDS ORDERED: ALBUTEROL HFA 8 GM INHALER INH PRN (10:18)
--- NOTE | 2023-03-14 10:45 | Discharge Summary ---
Date of Service March 14, 2023 Admission HPI Per Admitting Provider This is a 77 yo F with PMHx of HFpEF, lymphedema, COPD, asthma, HTN, DM type II, hypothyroidism, remote papillary thyroid cancer s/p resection, craniotomy for CSF leak in ~2009 where she was hospitalized in [facility] and in a coma for 4-5 days and now primarily wheelchair bound who presents to the ER with worsening shortness of breath over the last 1 to 2 days. She has been working outside in the yard and has noticed a lot of pollen which has progressively made her more short of breath and have to use her home oxygen in the evening. She noticed last evening that she was very short of breath and her oxygen levels were 68% and not coming up even with supplemental O2. She called EMS. In the ER, she was noted to be in respiratory distress and was placed on BiPAP. She was given IV steroids and IV Bumex. Chest x-ray showed pulmonary edema as well as bilateral small pleural effusions and left basilar atelectasis. ECG was without ischemic changes and troponin was minimally elevated at 31. She denied chest pain. No fevers or chills, but has noticed a headache. No sore throat or runny nose, No cough. Discharge Exam gen - NAD, sitting in chair comfortably, looks very good mouth - MMM neck - no JVD heart - RRR, s1 s2, no murmur lungs - scant b/l basilar rales; scantly decreased BS bases only; no wheeze, no increased work of breathing abd - distension resolved; BS+; NT; no obvious HSM; soft ext - 1+ edema b/l legs mainly just above ankles, ankles themselves, and feet; pulses 2+ b/l; remaining edema looks like lymphedema psych - a/o x 3 Discharge Data Allergies Allergy/AdvReac Type Severity Reaction Status Date / Time aspirin Allergy Severe HIVES; Verified 03/05/23 01:20 DIFFICULTY BREATHING colchicine Allergy Severe Difficulty Verified 03/05/23 01:20 Breathing Iodinated Contrast Media Allergy Intermediate Rash Verified 03/05/23 01:20 aspartame Allergy Unknown Unknown Verified 03/05/23 01:20 Benzodiazepines Allergy Unknown Unknown Verified 03/05/23 01:20 diltiazem Allergy Unknown UNKNOWN Verified 03/05/23 01:20 REACTION doxycycline Allergy Unknown Unknown Verified 03/05/23 01:20 melon Allergy Unknown Unknown Verified 03/05/23 01:20 nifedipine Allergy Unknown UNKNOWN Verified 03/05/23 01:20 REACTION simvastatin Allergy Unknown UNKNOWN Verified 03/05/23 01:20 REACTION PER PT sucralose Allergy Unknown Unknown Verified 03/05/23 01:20 vancomycin Allergy Unknown UNKNOWN Verified 03/05/23 01:20 REACTION Consultations 03/05/23 03:51 ED Decision to Admit Stat Hospital Course (1) Acute and chronic respiratory failure with hypoxia: uses [place] O2 at home on prn basis and, when she leaves her home, does not take it with her typically. presented with severe distress requiring BIPAP. acute resp failure was 2nd to decompensated CHF -- now resolved, off O2. (2) Acute on chronic heart failure with preserved ejection fraction (HFpEF): Volume status continues to improve nicely. Weight down to 203 #. Contraction alkalosis resolved with diamox. Pt's BUN nearly 50 today (some of that could be from steroids) but likely we are near euvolemia. Place bumex on hold. Repeat BMP in am. By report she is noncompliant with diuretics and multiple other meds at home. Follows with TASHIA Cam, in the [facility] CHF clinic. Multiple admissions for acute/chronic CHF noted in 2021 and 2022. Decompensated hypothyroidism will also contribute to clinical picture. Uncertain on how to improve her noncompliance. BPs are improved with addition of metoprolol BID. Convert to metoprolol succinate at discharge. (3) Asthma exacerbation: Finish prednisone today Cont bronchodilators prn O2 has been weaned off Pt requests neb machine for home - will set this up/prescribe. Suspect most of her current pulmonary symptoms were due to decompensated CHF rather than asthma/COPD history. (4) COPD (chronic obstructive pulmonary disease): Refuses long-acting maintenance inhalers Supplemental O2 as needed Steroid wean as above PFTs 07/2022 with severe obstruction and severely depressed DLCO COPD the likely cause of chronic hypercapnea Recommended to her today that she should see [facility] Pulmonary post-discharge Would benefit from ongoing pulmonary care, sleep study, etc (5) HTN (hypertension): Improved BPs with addition of metoprolol Cont ARB (6) Hypothyroidism, postablative: Recent TSH quite high at 25 and levothyroxine dose was increased to 150 mcg Review of TSH levels going back to 02/2020 show ALL LEVELS have been high This is very suggestive of noncompliance with her synthroid Have stressed multiple times the importance of compliance and its link to volume status and CHF and overall health (7) Lymphedema: She does have lymphedema therapy and compression wraps through a lymphedema specialist that comes to her house Edema MUCH improved The remaining edema following her diuresis is c/w chronic lymphedema (8) Type 2 diabetes mellitus with peripheral neuropathy: controlled cont basal-bolus insulins Recent hemoglobin A1c 7.7% (9) Alkalosis: 2nd diuresis s/p diamox with resolution repeat BMP am Plan Patient has previously refused chemical DVT proph - Dr Jesnen was notified of such and d/c heparin since she would not take it cont PT, OT I extensively updated pt's daughter, Ms Gee, at bedside yesterday home tomorrow ?? Discharge Plan Discharge Items Patient Disposition: Home - Self-Care Reason For Visit: ACUTE HYPOXIC RESPIRATORY FAILURE Discharge Diagnosis: 1. acute on chronic congestive heart failure 2. acute respiratory failure due to #1 - resolved 3. high blood pressure 4. hypothyroidism 5. COPD - pulmonary follow-up recommended Activity: Resume your previous activity Non-emergency contact: Primary Care Provider and Lockstitch Sleeve Setter Call non-emergency contact if: you have any medication questions and your symptoms worsen Follow-up/Referrals: Alma Dasilva PAShoC [Physician Clinical Lab Clerk] - (please see Ms Dasilva within 1 week for your congestive heart failure ) Luann France MD [Primary Care Provider] - 03/19/23 11:30 am Diet: Carb Consistent or DM2 and Low Sodium (2gm) Fluids: 1500ml (6 cups) Addtl Attending Provider Instructions: Doreen, You were hospitalized due to severe difficulty in your breathing because of congestive heart failure. You were retaining large amounts of fluid in your lungs as well as your abdomen & legs. You responded very well to IV diuretics during your stay. You have lost a large amount of weight while here. Ms Dasilva and I discussed your care on numerous occasions. At this time we recommend the following to optimize your heart function and prevent recurrent co ngestive heart failure flare-ups -- 1. INCREASE your bumetanide to 2mg once a day each morning. Note that the dose has been increased from 1mg to 2mg. Take EVERY morning. START your bumetanide on 03/15/23. 2. START metoprolol succinate 25mg once daily each morning. This medication is for your heart and high blood pressure. Start this 03/15/23. 3. Please check your weight EVERY MORNING on the same scale. Write your weights down in a notebook. If you keep track of your daily weight and the weights are rising we can often manage your fluid issues as an outpatient and prevent re-hospitalization. If you are seeing a rise in your weight please let Ms Dasilva or Dr France know right away. 4. Limit total fluid intake to no more than 1500ml in a 24 hour period. This includes all liquids & beverages consumed. 5. Limit total sodium intake to no more than 2000mg in a 24 hour period. Avoid fried foods, fast foods, TV dinners, canned soup, chips, many processed foods, etc. 6. Your pulmonary function tests in the fall of 2021 showed the presence of severe obstructive disease. Obstruction is the hallmark of asthma & COPD conditions. Your carbon dioxide levels are elevated likely due to the presence of a COPD condition. You should be seen by a camera repair technician (lung doctor) for more testing and work-up. 7. You will need a repeat blood test this week to recheck your kidney function and your thyroid function. 8. Continue to use your oxygen on an as needed basis as previous. 9. When using your albuterol inhaler please use with the plastic spacer device. Follow-up - see separate section Return to [facility] if - * you have fevers over 100 degrees * you have worsening shortness of breath or chest pains * any other concerns It was our pleasure to care for you! -Dr Charlie Callahan Outside Sales Advertising Executive Provider Instructions: Congestive Heart Failure Instructions - Call 911 and go to the Emergency Room if: * You have tightness or pain in your chest that does not go away with rest or Nitroglycerin * You are very short of breath even with rest Call your doctor/provider if any of the following symptoms or problems start or get worse: * Shortness of breath or difficulty breathing * Wake up at night short of breath * Chest pain * Cough * Swelling of your hands, fee, or legs * More fatigued or tired with your normal activity * Palpitations - sudden fast heart beats WEIGHT * Weigh yourself every morning after using the bathroom. Your weight today is 195 pounds. Please weigh yourself when you arrive home today. Let today's weight be your baseline, "dry" weight. * Use the same scale. * Wear the same amount of clothing. * Write your weight down on your chart. * Call your doctor if you gain more than 2-3 pounds in 1-2 days above your dry weight. This is typically the first sign of fluid/water retention from your congestive heart failure. It is always best to call right away if you are s eeing weight gains from fluid. We can often PREVENT hospitalization with early intervention and adjustment of your diuretics, etc. MEDICATIONS * Use this discharge instruction sheet for instructions. * Take your medications at the time your doctor ordered. * Do not skip a dose of your medicines. * If you miss a dose of medicine, take as soon as possible, but DO NOT DOUBLE A DOSE. * Read your medicine information when you get home. * Know all of the side effects of your medicine. * Call your doctor's office if you have any side effects. * Be sure all of your doctors know what medicine and herbs you take (including cold, flu, and herbal medicine). * Pain Medicine: If you do not get relief from your pain, please call your doctor for help. Take the following with you to your follow-up doctor appointments: * Weight Chart * Medication List * List of questions Do not drink excessive alcohol, beer or wine. Pending Studies at Discharge: No Stand-Alone Forms: My [facility], Smoking Cessation Medications and DC Order Prescriptions: New metoprolol succinate 25 mg tablet extended release 24 hr 25 mg PO QAM Qty: 30 2RF Rx Instructions: for your heart Continued losartan 50 mg tablet 100 mg PO QAM Qty: 180 3RF Patient Comments: PT STATED SHE DOES NOT TAKE THIS BP MEDICATION. levothyroxine 150 mcg tablet 150 mcg PO DAILY Qty: 90 3RF (DME) nebulizer accessories Misc See Rx Instructions .Route Qty: 1 0RF Rx Instructions: Nebulizer, nebulizer tubing/accessories albuterol sulfate 0.63 mg/3 mL solution for nebulization 0.63 mg inhalation QID PRN (Reason: shortness of breath or wheezing) Qty: 90 3RF (DME) Bed Side Commode Misc See Rx Instructions .Route Qty: 1 0RF Rx Instructions: As directed (DME) inhaler,assist devices,access Device See Rx Instructions .MEDSUPPLY Qty: 1 0RF Rx Instructions: spacer for HFA inhlaer, use as directed (DME) Spacer for Inhaler Misc See Rx Instructions .Route Qty: 1 0RF Rx Instructions: As directed acetaminophen [Tylenol Extra Strength] 500 mg tablet 1,000 mg PO Q8H PRN (Reason: Pain) potassium chloride 20 mEq packet 20 meq PO QAM insulin detemir U-100 100 unit/mL (3 mL) insulin pen 30 unit subcut QAM Patient Comments: takes late morning Rx Instructions: PER PT "TOOK LATER THAN USUAL TODAY". (DME) blood-glucose meter [OneTouch Verio Meter] Misc See Rx Instructions .Route Qty: 1 0RF Rx Instructions: As directed (DME) OneTouch Verio test strips Strip See Rx Instructions .ROUTE .MEDSUPPLY Qty: 100 3RF Rx Instructions: for once a day testing budesonide-formoterol [Symbicort] 80-4.5 mcg/actuation HFA aerosol inhaler 1 inh inhalation BID Qty: 10.2 2RF (DME) pen needle, diabetic [BD Ultra-Fine Micro Pen Needle] 32 gauge x 1/4" n eedle See Rx Instructions .ROUTE .MEDSUPPLY Qty: 50 0RF Rx Instructions: As directed (DME) lancets [OneTouch Delica Lancets] [facility] See Rx Instructions .ROUTE .MEDSUPPLY Qty: 100 0RF Rx Instructions: As directed Changed bumetanide 2 mg tablet 2 mg PO QAM Qty: 30 2RF Rx Instructions: note larger dose albuterol sulfate 90 mcg/actuation HFA aerosol inhaler 2 puff INHALATION Q4H PRN (Reason: cough/wheeze/shortness of breath) Qty: 18 1RF Discharge Orders: Discharge Order (Routine); Ordered 03/14/23 Ordered By: Yosef Guerra Admission Data Admit Date/Time: 03/05/23 06:11 Attending Provider: Yosef Guerra Admit Provider: Ravi José Primary Care Provider: Luann France Other Providers: Ravi José Coding Diagnoses Acute and chronic respiratory failure with hypoxia J96.21 Acute on chronic heart failure with preserved ejection fraction (HFpEF) I50.33 Asthma exacerbation J45.901 COPD (chronic obstructive pulmonary disease) J44.9 HTN (hypertension) I10 Hypertension type: essential hypertension Hypothyroidism, postablative E89.0 Lymphedema I89.0 Type 2 diabetes mellitus with peripheral neuropathy E11.42 Alkalosis E87.3
== END 2023-03-14 11:27 | disposition home or self-care (01) | DRG 291 ==
LOC: ED 00:55 → SUATTDRO 06:11 → 2S 06:11
DX: E87.3 Alkalosis; Z91.041 Radiographic dye allergy status; I11.0 Hypertensive heart disease with heart failure; J44.1 Chronic obstructive pulmonary disease with (acute) exacerbation; Z79.82 Long term (current) use of aspirin; Z91.148 Patient's other noncompliance with medication regimen for other reason; E11.42 Type 2 diabetes mellitus with diabetic polyneuropathy; Z99.81 Dependence on supplemental oxygen; Z79.890 Hormone replacement therapy; E89.0 Postprocedural hypothyroidism; I50.33 Acute on chronic diastolic (congestive) heart failure; I24.8 Other forms of acute ischemic heart disease; J96.21 Acute and chronic respiratory failure with hypoxia

== ENCOUNTER 2023-03-21 23:54 | Inpatient (IN) ==
[2023-03-22 00:42] LABS: Appearance Urine Turbid (Clear); Bacteria Urine Automated 1+ (Negative); Bilirubin Urine Negative (Negative); Blood Urine 3+ (Negative); Color Urine Orange; Epithelial Cell Urine Auto 20-30 /lpf (0-5); Glucose Urine UA Negative (Negative); Ketones Urine Negative (Negative); Leukocyte Esterase Urine 3+ (Negative); Nitrite Urine Positive (Negative); Urobilinogen Urine Negative (Negative); WBC Urine Automated >30 /hpf (0-5)
[2023-03-22 00:58] LABS: Protein Urine 3+ (Negative)
[2023-03-22 01:09] LABS: RBC Urine Automated 0-4 /hpf (0-4)
[2023-03-22 01:12] LABS: Basophils # (auto) 0.05 K/uL (0-0.2); Basophils % (auto) 0.3 %; Eosinophils # (auto) 0.09 K/uL (0-0.50); Eosinophils % (auto) 0.6 %; Hemoglobin 12.1 g/dl (12.0-16.0); Immature Granulocytes # (auto) 0.08 K/uL (0.01-0.20); Immature Granulocytes % (auto) 0.5 %; Lymphocytes # (auto) 1.09 K/uL (1.2-3.4); Lymphocytes % (auto) 7.2 %; Mean Corpuscular Hemoglobin 27.8 pg (25.0-34.0); Mean Corpuscular Hgb Conc 31.8 g/dL (32.0-36.0); Mean Corpuscular Volume 87.2 fL (80.0-100.0); Monocytes # (auto) 1.07 K/uL (0.11-0.59); Monocytes % (auto) 7.1 %; Neutrophils # (auto) 12.74 K/uL (1.40-6.50); Neutrophils % (auto) 84.3 %; Platelet Count 237 K/uL (130-400); RDW Coefficient of Variation 13.9 % (11.5-14.5); RDW Standard Deviation 44.2 fL (36.4-46.3); Red Blood Count 4.36 M/uL (4.20-5.40); White Blood Count 15.12 K/ul (4.8-10.8)
[2023-03-22] MEDS ORDERED: cefTRIAXone SODIUM 2,000 MG/70 ML BAG IV STA (01:19)
[2023-03-22 01:27] LABS: Albumin Globulin Ratio 0.9 (0.9-2); Albumin Level 3.8 gm/dl (3.4-5.0); BUN Creatinine Ratio 27.1 (10-20); Bilirubin,Total 1.2 mg/dl (0.2-1.0); Calcium 9.4 mg/dl (8.6-10.3); Est GFR (African American) 67.1 ml/min; Est GFR (Non-African American) 57.9 ml/min; Globulin 4.2 gm/dl (2.5-4.0); Potassium 3.9 mmol/L (3.5-5.1)
--- NOTE | 2023-03-22 02:18 | History & Physical Report ---
Date of Service March 22, 2023 Assessment & Plan (1) Acute UTI: Plan: Patient presents to ED with complaints of dysuria with burning micturition Patient has been having increased frequency along with burning micturition over the past 1 to 2 days Labs in ED shows evidence of leukocytosis with elevated white count of 15,000 UA consistent with UTI with positive leukocyte esterase Patient started IV antibiotic therapy with IV ceftriaxone in the ED Continue empiric treatment with ceftriaxone and adjust antibiotics based on sensitivity results CT of the abdomen shows evidence of mild right hydronephrosis likely secondary to a recently passed renal calculi along with evidence of cystitis Patient was started on IV fluids to promote diuresis patient has been having poor p.o. intake as well Given underlying history of CHF will administer fluids cautiously and monitor I's and O's closely (2) Diabetes mellitus: Plan: Patient found to have elevated blood glucose of 234 in the ED Patient will be placed on sliding scale coverage short acting insulin based on fingerstick monitoring Check hemoglobin A1c level (3) Hypertension: Plan: Continue home dose of losartan 50 mg daily (4) (HFpEF) heart failure with preserved ejection fraction: Plan: Patient was admitted with a episode of CHF about 10 days ago No evidence of acute exacerbation at this time (5) COPD (chronic obstructive pulmonary disease): Plan: Patient is a known history of COPD with no evidence of acute exacerbation at this time Continue bronchodilators as needed (6) Hypothyroidism: Plan: Continue home dose of levothyroxine 150 mcg daily History of Present Illness Chief Complaint: Patient presents today ED with burning urination Primary Care Provider: Luann France MD This is a 77-year-old female with a past medical history significant history of diabetes mellitus, hypertension, hypothyroidism, hyperlipidemia, CHF, COPD who presents to the emergency department complaints of urinary discomfort associated with burning urination. Patient has been having poor functional status with ambulatory difficulty and has been wheelchair-bound since she had a craniotomy surgery. Patient was admitted recently with respiratory insufficiency associated with CHF exacerbation and was treated with a course of IV diuretic therapy and was treated for COPD exacerbation about 10 days ago and was discharged recently . Patient reports that over the past 24 hours she has had worsening of burning urination and hence presents to ED for further evaluation. Patient also has chronic lymphedema and has been using compression wraps and is also on insulin regimen for diabetes mellitus. Patient reports poor appetite and has not been eating keeping up with the p.o. intake over the past 1 to 2 days as well. Patient was evaluated in the ED and was found to have elevated white count of 15,000 along with evidence of UTI and has been started on IV antibiotic therapy with ceftriaxone and is being admitted for further m anagement. Allergies Allergy/AdvReac Type Severity Reaction Status Date / Time aspirin Allergy Severe HIVES; Verified 03/22/23 00:43 DIFFICULTY BREATHING colchicine Allergy Severe Difficulty Verified 03/22/23 00:43 Breathing Iodinated Contrast Media Allergy Intermediate Rash Verified 03/22/23 00:43 aspartame Allergy Unknown Unknown Verified 03/22/23 00:43 Benzodiazepines Allergy Unknown Unknown Verified 03/22/23 00:43 diltiazem Allergy Unknown UNKNOWN Verified 03/22/23 00:43 REACTION doxycycline Allergy Unknown Unknown Verified 03/22/23 00:43 melon Allergy Unknown Unknown Verified 03/22/23 00:43 nifedipine Allergy Unknown UNKNOWN Verified 03/22/23 00:43 REACTION simvastatin Allergy Unknown UNKNOWN Verified 03/22/23 00:43 REACTION PER PT sucralose Allergy Unknown Unknown Verified 03/22/23 00:43 vancomycin Allergy Unknown UNKNOWN Verified 03/22/23 00:43 REACTION Home Medications Medication Instructions Recorded Confirmed Type Bed Side Commode #1 ea 08/28/21 03/22/23 Rx Spacer for Inhaler #1 ea 09/04/22 03/22/23 Rx inhaler,assist devices,access #1 ea 11/05/22 03/22/23 Rx blood sugar diagnostic (Zooskuch #100 ea 12/17/22 03/22/23 Rx Verio test strips) blood-glucose meter (ZooskTouch #1 ea 12/17/22 03/22/23 Rx Verio Meter) budesonide-formoterol HFA 80 1 inh inhalation BID #10.2 grams 12/17/22 03/22/23 Rx mcg-4.5 mcg/actuation aerosol inhaler (Symbicort) lancets 33 gauge (ZooskTouch Delica #100 ea 12/17/22 03/22/23 Rx Lancets) pen needle, diabetic 32 gauge x #50 ea 12/17/22 03/22/23 Rx 1/4" (BD Ultra-Fine Micro Pen Needle) acetaminophen 500 mg tablet 1,000 mg PO Q8H PRN Pain 01/27/23 03/22/23 History (Tylenol Extra Strength) insulin detemir U-100 100 unit/mL 30 unit subcut QAM 01/27/23 03/22/23 History (3 mL) subcutaneous pen potassium chloride 20 mEq oral 20 meq PO QAM 01/27/23 03/22/23 History packet losartan 50 mg tablet 100 mg PO QAM #180 tabs 02/03/23 03/22/23 Rx nebulizer accessories #1 ea 03/01/23 03/22/23 Rx albuterol sulfate 90 mcg/actuation 2 puff inhalation Q4H PRN 03/14/23 03/22/23 Rx aerosol inhaler cough/wheeze/shortness of breath #18 grams bumetanide 2 mg tablet 2 mg PO QAM #30 tabs 03/14/23 03/22/23 Rx metoprolol succinate 25 mg 25 mg PO QAM #30 tabs 03/14/23 03/22/23 Rx tablet,extended release 24 hr levothyroxine 150 mcg tablet 150 mcg PO DAILYBB 03/22/23 03/22/23 History Past Med/Surg History Medical History Acute diastolic (congestive) heart failure HX Ambulatory dysfunction Asthma Chest pain hx-"more pleuritic pain, not cardiac related" CHF exacerbation HX-RECENTLY Chronic edema Chronic respiratory failure with hypoxia, on home O2 therapy O2 prn at 2L Diabetes mellitus with albuminuria Diastolic heart failure HX Dyslipidemia Elevated serum globulin level Financial difficulties Gait abnormality History of ectopic History of seizures as a child HTN (hypertension) Hx of papillary thyroid carcinoma Hx of pleurisy Hx of thyroid cancer Hypokalemia Hypomagnesemia Hypothyroidism, postablative Lower extremity edema Multiple drug allergies Obstructive pattern present on pulmonary function testing Pleurisy without effusion have been hospitalized 4x in the past year for this Pleuritic chest pain 4x in the past year 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 Vitamin D deficiency Wheelchair bound Surgical History History of D&C Hx of brain surgery 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 during the procedure Hx of section Hx of thyroidectomy Family History Father Stroke Mother Dementia Diabetes Sister Macular degeneration Brother Macular degeneration Other TIA (transient ischemic attack) Denies family history of Ovarian cancer Prostate cancer Myocardial infarction Breast cancer Colorectal cancer Social History Smoking Status: Never smoker Second Hand Exposure: No; Do You Dip or Chew Tobacco: No; Tobacco Cessation Education Requested by Patient: No Hx Alcohol Use: No Hx Substance Use: No Preferred Language: Vietnamese Communication Ability: Effective Visual Impairment: No Limitations Hearing Ability: Normal Tonger Required: No Beliefs That Will Affect Care: None marital status: / Current Living Situation: Alone current occupational status: retired 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 No wheezing Cardiac-no palpitations, no chest pain, no syncope GI-no nausea, vomiting, poor p.o. intake -reports dysuria over the past 2 days Musculoskeletal-no joint pain, no muscle tenderness Skin-no bruising, no rashes, no pruritus Neuro-no isolated weakness, no paresthesia Physical Exam Physical Exam: Head and ENT no thyroid enlargement trachea midline Oral mucosa slightly dry Cardiovascular S1-S2 are normal no S3 Lungs bilateral air entry fair no wheezing Abdomen soft nondistended positive bowel sounds no rebound tenderness Extremity shows trace edema Neurologically no focal deficits Skin shows no rash no cyanosis Results & Data Results & Data Vital Signs (Past 12 Hours) Vital Signs Temp Pulse Pulse Resp BP BP Pulse Ox 03/22/23 02:01 20 196/89 H 96 03/22/23 00:55 87 22 196/97 H 98 03/22/23 00:18 93 H 21 178/96 H 98 03/22/23 00:01 92 H 29 H 188/98 H 96 03/22/23 00:45 90 03/22/23 00:07 89 18 97 06/05/23 00:07 36.8 C 89 18 188/98 H 97 03/22/23 00:07 36.8 C 89 18 188/98 H 97 O2 Del Method O2 Flow Rate 03/22/23 02:01 Nasal Cannula 2 03/22/23 00:55 Room Air 03/22/23 00:18 Room Air 03/22/23 00:01 Room Air 03/22/23 00:45 03/22/23 00:07 Nasal Cannula 2 03/22/23 00:07 Nasal Cannula 2 03/22/23 00:07 Room Air 2 Laboratory Results Short CBC 03/22/23 Range/Units 00:20 WBC 15.12 H (4.8-10.8) K/ul Hgb 12.1 (12.0-16.0) g/dl Hct 38.0 (37.0-47.0) % Plt Count 237 (130-400) K/uL BMP 03/22/23 00:20 Sodium 135 L Potassium 3.9 Chloride 96 L Carbon Dioxide 32 BUN 26 H Creatinine 0.96 Glucose 234 H Calcium 9.4 Liver Function 03/22/23 Range/Units 00:20 Total Bilirubin 1.2 H (0.2-1.0) mg/dl AST 12 L (13-39) U/L ALT 15 (7-52) U/L Alkaline Phosphatase 78 (34-104) U/L Albumin 3.8 (3.4-5.0) gm/dl Urine 03/22/23 Range/Units 00:18 Urine Color [place] Urine Appearance Turbid A (Clear) Urine pH 8.0 H (4.5-7.5) Ur Specific [place] 1.020 (1.000-1.030) Urine Protein 3+ H (Negative) Urine Glucose (UA) Negative (Negative) Diagnostic Findings Abdomen/Pelvis CT 03/22/23 01:23 Exam(s): CT ABDOMEN + PELVIS Without Contrast EXAM: CT Abdomen and Pelvis Without Intravenous Contrast CLINICAL HISTORY: Reason for exam: UTI, R back pain. TECHNIQUE: Axial computed tomography images of the abdomen and pelvis without intravenous contrast. Automated exposure control was utilized for the study. A dose lowering technique was utilized adhering to the principles of ALARA. COMPARISON: CT abdomen pelvis 11/25/2022 FINDINGS: Lung bases: Trace interstitial edema. Atelectasis of the left lung base. Small left pleural effusion. Heart: Small pericardial effusion. ABDOMEN: Liver: Unremarkable. Gallbladder and bile ducts: Unremarkable. Pancreas: Unremarkable. Spleen: Unremarkable. Adrenals: Unremarkable. Kidneys and ureters: Moderate right hydronephrosis. No obstructing stone. Findings may be related to recently passed stone or infection. No hydronephrosis in the left kidney. Stomach and bowel: Unremarkable. PELVIS: Appendix: No findings to suggest acute appendicitis. Bladder: Bladder appears inflamed suggestive of cystitis. Reproductive: Unremarkable as visualized. ABDOMEN and PELVIS: Intraperitoneal space: Unremarkable. No free air. No significant fluid collection. Bones/joints: No acute fracture. Soft tissues: Unremarkable. Vasculature: Unremarkable. Lymph nodes: Unremarkable. IMPRESSION: 1. Moderate right hydronephrosis. No obstructing stone. Findings may be related to recently passed stone or infection. 2. Bladder appears inflamed suggestive of cystitis. 3. Trace interstitial edema. Atelectasis of the left lung base. Small left pleural effusion. 4. Small pericardial effusion. Electronically signed by: Colton Whitten MD 03/22/23 04:33 AM Code Status & VTE Plan VTE Prophylaxis Plan VTE Prophylaxis will be ordered: Yes PG Care Time/CCT Total # of Minutes Spent Total Time Spent with Patient: Total time spent is greater than 50% in coordination of care (as documented) at patient's floor/unit and/or counseling patient: Coding Level of Care Code 96841 INT INP/OBS CARE 2/55MIN Diagnoses Acute UTI N39.0 Diabetes mellitus E11.9 Hypertension I10 (HFpEF) heart failure with preserved ejection fraction I50.30 COPD (chronic obstructive pulmonary disease) J44.9 Hypothyroidism E03.9
--- NOTE | 2023-03-22 03:49 | Emergency Department Note ---
Impression & Plan Acute UTI, Leukocytosis, Hydronephrosis ED Provider Note CHIEF COMPLAINT: Urinary symptoms HISTORY OF PRESENT ILLNESS: This 77-year-old female patient with past medical history of diabetes, hypertension, migraine, hypothyroidism, hypercholesterolemia, lymphedema, CHF, COPD who is wheelchair-bound post craniotomy years ago presents to the emergency department with complaints of burning with urination and low back pain. Patient states her symptoms began 2 days ago but seem to have progressed. She contacted her physician who gave her appointment for evaluation later today but she does not think she can wait. Patient states she lives at home alone but has "plenty of help." She was just released from the hospital about a week and a half ago and states that they had removed a large volume of fluid. REVIEW OF SYSTEMS: A review of systems was performed with positives and pertinent negatives listed in the history of present illness. 10 systems were reviewed and are otherwise negative. ALLERGIES: see below MEDICATIONS: see below PMH: see below SOCIAL HISTORY: see below DDx: UTI, pyelonephritis, renal calculi, vaginal yeast infection, appendicitis, diverticulitis, amongst other PHYSICAL EXAM: Vital signs reviewed. General: Chronically ill-appearing 77-year-old female, in no significant distress. HEENT: No scleral icterus, PERRLA, neck supple. Atraumatic. Cardiovascular: Regular rate and rhythm, no extra sounds. Pulmonary: Clear to auscultation bilaterally, normal work of breathing. Abdomen: Soft, morbidly obese with tenderness along the low midline, no signi ficant CVA tenderness, nondistended, positive bowel sounds. Musculoskeletal: Atraumatic, 3+ peripheral edema bilateral lower extremities. Neurologic: Patient awake alert and oriented x 3, speech is clear Skin: Warm, dry, no rash EMERGENCY DEPARTMENT COURSE/MDM: -This patient was evaluated and appeared to be in no significant distress. -IV access was obtained and lab work drawn. -External medical records were reviewed. -Lab work reveals an elevated WBC, UA is indicative of infection. Urine sent for culture. -Pt given 2 gm IV ceftriaxone. -CT abd/pelvis obtained d/t back pain and elevated WBC and UTI. -Hydronephrosis b/l on CT. no stone. -Case d/w the hospitalist service for admission and further management. -Pt aware of the plan and agreed. MONITORING: An order for cardiac monitoring was placed and the patient is noted to be in a normal sinus rhythm at 91 beats per minute. RADIOLOGY: CT imaging of the abdomen pelvis to my interpretation reveals evidence of bilateral hydronephrosis and pericystic stranding, otherwise defer to radiology's overread DISPOSITION: Admission Past Med/Surg History Medical History Acute diastolic (congestive) heart failure HX Ambulatory dysfunction Asthma Chest pain hx-"more pleuritic pain, not cardiac related" CHF exacerbation HX-RECENTLY Chronic edema Chronic respiratory failure with hypoxia, on home O2 therapy O2 prn at 2L Diabetes mellitus with albuminuria Diastolic heart failure HX Dyslipidemia Elevated serum globulin level Financial difficulties Gait abnormality History of ectopic History of seizures as a child HTN (hypertension) Hx of papillary thyroid carcinoma Hx of pleurisy Hx of thyroid cancer Hypokalemia Hypomagnesemia Hypothyroidism, postablative Lower extremity edema Multiple drug allergies Obstructive pattern present on pulmonary function testing Pleurisy without effusion have been hospitalized 4x in the past year for this Pleuritic chest pain 4x in the past year 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 Vitamin D deficiency Wheelchair bound Surgical History History of D&C Hx of brain surgery 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 during the procedure Hx of section Hx of thyroidectomy Family History Father Stroke Mother Dementia Diabetes Sister Macular degeneration Brother Macular degeneration Other TIA (transient ischemic attack) Denies family history of Ovarian cancer Prostate cancer Myocardial infarction Breast cancer Colorectal cancer Social History Smoking Status: Never smoker Second Hand Exposure: No; Do You Dip or Chew Tobacco: No; Tobacco Cessation Education Requested by Patient: No Hx Alcohol Use: No Hx Substance Use: No Preferred Language: Bengali Communication Ability: Effective Visual Impairment: No Limitations Hearing Ability: Normal Radiology Scheduler Required: No Beliefs That Will Affect Care: None marital status: / Current Living Situation: Alone current occupational status: retired 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 Other Information That Helps Us Care for You: No Feels Safe at Home: Yes Safety Concerns: Feels Safe At This Time Childhood Exposure to Second-Hand Smoke: No Diet: regular Dental Care, Regularly: Yes Physical Activity Frequency: Does not Exercise Seatbelt Use: always Sunscreen Use: No Assistive Devices: Lift Chair, Oxygen - at Night, Stair Lift and Wheelchair Allergies Allergies Allergy/AdvReac Type Severity Reaction Status Date / Time aspirin Allergy Severe HIVES; Verified 03/22/23 00:43 DIFFICULTY BREATHING colchicine Allergy Severe Difficulty Verified 03/22/23 00:43 Breathing Iodinated Contrast Media Allergy Intermediate Rash Verified 03/22/23 00:43 aspartame Allergy Unknown Unknown Verified 03/22/23 00:43 Benzodiazepines Allergy Unknown Unknown Verified 03/22/23 00:43 diltiazem Allergy Unknown UNKNOWN Verified 03/22/23 00:43 REACTION doxycycline Allergy Unknown Unknown Verified 03/22/23 00:43 melon Allergy Unknown Unknown Verified 03/22/23 00:43 nifedipine Allergy Unknown UNKNOWN Verified 03/22/23 00:43 REACTION simvastatin Allergy Unknown UNKNOWN Verified 03/22/23 00:43 REACTION PER PT sucralose Allergy Unknown Unknown Verified 03/22/23 00:43 vancomycin Allergy Unknown UNKNOWN Verified 03/22/23 00:43 REACTION Home Meds Home Medications Medication Instructions Recorded Confirmed acetaminophen 500 mg tablet 1,000 mg PO Q8H PRN Pain 01/27/23 03/22/23 (Tylenol Extra Strength) insulin detemir U-100 100 unit/mL 30 unit subcut QAM 01/27/23 03/22/23 (3 mL) subcutaneous pen potassium chloride 20 mEq oral 20 meq PO QAM 01/27/23 03/22/23 packet levothyroxine 150 mcg tablet 150 mcg PO DAILYBB 03/22/23 03/22/23 Previous Rx's Medication Instructions Recorded Bed Side Commode #1 ea 08/28/21 Spacer for Inhaler #1 ea 09/04/22 inhaler,assist devices,access #1 ea 11/05/22 blood sugar diagnostic ([facility] #100 ea 12/17/22 Verio test strips) [facility] Verio Meter) budesonide-formoterol HFA 80 1 inh inhalation BID #10.2 grams 12/17/22 mcg-4.5 mcg/actuation aerosol inhaler (Symbicort) lancets 33 gauge ([facility] 12/17/22 Lancets) pen needle, diabetic 32 gauge x #50 ea 12/17/22 1/" (BD Ultra-Fine Micro Pen Needle) losartan 50 mg tablet 100 mg PO QAM #180 tabs 02/03/23 nebulizer accessories #1 ea 03/01/23 albuterol sulfate 90 mcg/actuation 2 puff inhalation Q4H PRN 03/14/23 aerosol inhaler cough/wheeze/shortness of breath #18 grams bumetanide 2 mg tablet 2 mg PO QAM #30 tabs 03/14/23 metoprolol succinate 25 mg 25 mg PO QAM #30 tabs 03/14/23 tablet,extended release 24 hr Results & Data (ED) Vital Signs Vital Signs - 24 hr 03/22/23 00:07 03/22/23 00:07 03/22/23 00:07 Temperature 36.8 C 36.8 C Temperature Source Oral Oral Pulse Rate 89 89 Pulse Rate [Bilateral] 89 Pulse Rate from SpO2 Sensor Pulse Rhythm Regular Regular Pulse Rhythm [Bilateral] Regular Pulse Strength Normal Pulse Strength [Bilateral] Normal Respiratory Rate 18 18 18 Respiratory Effort / Characteristics Non-Labored Spontaneous Non-Labored Spontaneous Respiratory Depth Normal Normal Respiratory Pattern Regular Regular Blood Pressure 188/98 H Blood Pressure [Right Arm] 188/98 H Blood Pressure Mean 128 Blood Pressure Mean [Right Arm] 128 Blood Pressure Position Semi-fowlers Blood Pressure Position [Right Arm] Semi-fowlers Pulse Oximetry 97 97 97 Oxygen Delivery Method Room Air Nasal Cannula Nasal Cannula Oxygen Flow Rate 2 2 2 Sepsis Recent Fever Within 48 Hours No Sepsis New/Unexplained Change in Mental Status No Sepsis Action Taken by Nursing No Action Required 03/22/23 00:45 03/22/23 00:01 03/22/23 00:18 Temperature Temperature Source Pulse Rate 90 92 H 93 H Pulse Rate [Bilateral] Pulse Rate from SpO2 Sensor 92 H 92 H Pulse Rhythm Pulse Rhythm [Bilateral] Pulse Strength Pulse Strength [Bilateral] Respiratory Rate 29 H 21 Respiratory Effort / Characteristics Respiratory Depth Respiratory Pattern Blood Pressure 188/98 H 178/96 H Blood Pressure [Right Arm] Blood Pressure Mean 128 123 Blood Pressure Mean [Right Arm] Blood Pressure Position Blood Pressure Position [Right Arm] Pulse Oximetry 96 98 Oxygen Delivery Method Room Air Room Air Oxygen Flow Rate Sepsis Recent Fever Within 48 Hours Sepsis New/Unexplained Change in Mental Status Sepsis Action Taken by Nursing 03/22/23 00:55 Temperature Temperature Source Pulse Rate 87 Pulse Rate [Bilateral] Pulse Rate from SpO2 Sensor 87 Pulse Rhythm Pulse Rhythm [Bilateral] Pulse Strength Pulse Strength [Bilateral] Respiratory Rate 22 Respiratory Effort / Characteristics Respiratory Depth Respiratory Pattern Blood Pressure 196/97 H Blood Pressure [Right Arm] Blood Pressure Mean 130 Blood Pressure Mean [Right Arm] Blood Pressure Position Blood Pressure Position [Right Arm] Pulse Oximetry 98 Oxygen Delivery Method Room Air Oxygen Flow Rate Sepsis Recent Fever Within 48 Hours Sepsis New/Unexplained Change in Mental Status Sepsis Action Taken by Group Home Medications Current Medication List: was personally reviewed by me Laboratory Data Attestation: I reviewed the patient's lab results. 03/22/23 00:20 03/22/23 00:20 Lab Results 03/22/23 03/22/23 03/22/23 Range/Units 00:00 00:18 00:20 WBC 15.12 H (4.8-10.8) K/ul RBC 4.36 (4.20-5.40) M/uL Hgb 12.1 (12.0-16.0) g/dl Hct 38.0 (37.0-47.0) % MCV 87.2 (80.0-100.0) fL MCH 27.8 (25.0-34.0) pg MCHC 31.8 L (32.0-36.0) g/dL RDW Std Deviation 44.2 (36.4-46.3) fL RDW Coeff of Smith 13.9 (11.5-14.5) % Plt Count 237 (130-400) K/uL MPV 11.0 (9.4-12.4) fL Immature Gran % (Auto) 0.5 % Neut % (Auto) 84.3 % Lymph % (Auto) 7.2 % Walsh % (Auto) 7.1 % Eos % (Auto) 0.6 % Baso % (Auto) 0.3 % Neut # (Auto) 12.74 H (1.40-6.50) K/uL Lymph # (Auto) 1.09 L (1.2-3.4) K/uL Walsh # (Auto) 1.07 H (0.11-0.59) K/uL Eos # (Auto) 0.09 (0-0.50) K/uL Baso # (Auto) 0.05 (0-0.2) K/uL Immature Gran # (Auto) 0.08 (0.01-0.20) K/uL Sodium (136-145) mmol/L Potassium (3.5-5.1) mmol/L Chloride (98-107) mmol/L Carbon Dioxide (21-32) mmol/L Anion Gap (3-11) BUN (6-23) mg/dl Creatinine (0.6-1.2) mg/dl Est Cr Clr Drug Dosing ml/min Est GFR ( Amer) ml/min Est GFR (Non-Af Amer) ml/min BUN/Creatinine Ratio (10-20) Glucose (70-99(Fasting)) mg/dl Calcium (8.6-10.3) mg/dl Total Bilirubin (0.2-1.0) mg/dl AST (13-39) U/L ALT (7-52) U/L Alkaline Phosphatase (34-104) U/L Total Protein (6.0-8.3) gm/dl Albumin (3.4-5.0) gm/dl Globulin (2.5-4.0) gm/dl Albumin/Globulin Ratio (0.9-2) Lipase (11-82) U/L Urine Color Crowley Urine Appearance Turbid A (Clear) Urine pH 8.0 H (4.5-7.5) Ur Specific [place] 1.020 (1.000-1.030) Urine Protein 3+ H (Negative) Urine Glucose (UA) Negative (Negative) Urine Ketones Negative (Negative) Urine Blood 3+ H (Negative) Urine Nitrite Positive A (Negative) Urine Bilirubin Negative (Negative) Urine Urobilinogen Negative (Negative) Ur Leukocyte Esterase 3+ H (Negative) Urine WBC (Auto) >30 H (0-5) /hpf Urine RBC (Auto) 0-4 (0-4) /hpf U Hyaline Cast (Auto) 1-5 (0-5) /lpf U Epithel Cells (Auto) 20-30 H (0-5) /lpf Urine Bacteria (Auto) 1+ H (Negative) Urine Yeast Not Reportable SARS-CoV-2, RNA, NAAT NEGATIVE (NEGATIVE) 03/22/23 Range/Units 00:20 WBC (4.8-10.8) K/ul RBC (4.20-5.40) M/uL Hgb (12.0-16.0) g/dl Hct (37.0-47.0) % MCV (80.0-100.0) fL MCH (25.0-34.0) pg MCHC (32.0-36.0) g/dL RDW Std Deviation (36.4-46.3) fL RDW Coeff of Smith (11.5-14.5) % Plt Count (130-400) K/uL MPV (9.4-12.4) fL Immature Gran % (Auto) % Neut % (Auto) % Lymph % (Auto) % Walsh % (Auto) % Eos % (Auto) % Baso % (Auto) % Neut # (Auto) (1.40-6.50) K/uL Lymph # (Auto) (1.2-3.4) K/uL Walsh # (Auto) (0.11-0.59) K/uL Eos # (Auto) (0-0.50) K/uL Baso # (Auto) (0-0.2) K/uL Immature Gran # (Auto) (0.01-0.20) K/uL Sodium 135 L (136-145) mmol/L Potassium 3.9 (3.5-5.1) mmol/L Chloride 96 L (98-107) mmol/L Carbon Dioxide 32 (21-32) mmol/L Anion Gap 7 (3-11) BUN 26 H (6-23) mg/dl Creatinine 0.96 (0.6-1.2) mg/dl Est Cr Clr Drug Dosing 60.0 ml/min Est GFR ( Amer) 67.1 ml/min Est GFR (Non-Af Amer) 57.9 ml/min BUN/Creatinine Ratio 27.1 H (10-20) Glucose 234 H (70-99(Fasting)) mg/dl Calcium 9.4 (8.6-10.3) mg/dl Total Bilirubin 1.2 H (0.2-1.0) mg/dl AST 12 L (13-39) U/L ALT 15 (7-52) U/L Alkaline Phosphatase 78 (34-104) U/L Total Protein 8.0 (6.0-8.3) gm/dl Albumin 3.8 (3.4-5.0) gm/dl Globulin 4.2 H (2.5-4.0) gm/dl Albumin/Globulin Ratio 0.9 (0.9-2) Lipase 4 L (11-82) U/L Urine Color Urine Appearance (Clear) Urine pH (4.5-7.5) Ur Specific [place] (1.000-1.030) Urine Protein (Negative) Urine Glucose (UA) (Negative) Urine Ketones (Negative) Urine Blood (Negative) Urine Nitrite (Negative) Urine Bilirubin (Negative) Urine Urobilinogen (Negative) Ur Leukocyte Esterase (Negative) Urine WBC (Auto) (0-5) /hpf Urine RBC (Auto) (0-4) /hpf U Hyaline Cast (Auto) (0-5) /lpf U Epithel Cells (Auto) (0-5) /lpf Urine Bacteria (Auto) (Negative) Urine Yeast SARS-CoV-2, RNA, NAAT (NEGATIVE) Administered Medications Acetaminophen (Acetaminophen 500 Mg Tab) 1,000 mg PO Q8H PRN PRN Reason: Pain Stop: 04/21/23 04:22 Last Admin: 03/22/23 08:30 Dose: 1,000 mg Documented By: MARY Acetazolamide (Acetazolamide 250 Mg Tab) 250 mg PO BID [facility] Stop: 03/28/23 08:59 Last Admin: 03/27/23 08:25 Dose: 250 mg Documented By: Admin: 03/26/23 20:34 Dose: Not Given Documented By: Admin: 03/26/23 09:22 Dose: 250 mg Documented By: RADHA Bumetanide (Bumetanide 1 Mg Tab) 3 mg PO QAM [facility] Stop: 04/24/23 08:59 Last Admin: 03/27/23 08:25 Dose: 3 mg Documented By: Admin: 03/26/23 08:09 Dose: 3 mg Documented By: Admin: 03/25/23 08:37 Dose: Not Given Documented By: RADHA Cephalexin HCl (Cephalexin 500 Mg Cap) 500 mg PO BID [facility]; Protocol Stop: 03/29/23 20:59 Last Admin: 03/27/23 08:25 Dose: 500 mg Documented By: Admin: 03/26/23 20:35 Dose: 500 mg Documented By: Admin: 03/26/23 08:09 Dose: 500 mg Documented By: Admin: 03/25/23 20:43 Dose: 500 mg Documented By: Admin: 03/25/23 08:12 Dose: 500 mg Documented By: Admin: 03/24/23 20:59 Dose: 500 mg Documented By: DEDE Fluticasone/Vilanterol (Fluticasone/Vilanterol 100/25mcg 14 Puffs/Inhaler) 1 puffs INH DAILY [facility] Stop: 04/21/23 08:59 Last Admin: 03/27/23 08:23 Dose: Not Given Documented By: Admin: 03/26/23 08:10 Dose: Not Given Documented By: Admin: 03/25/23 08:14 Dose: Not Given Documented By: Admin: 03/24/23 08:21 Dose: Not Given Documented By: ROSA MARIA Admin: 03/23/23 07:59 Dose: Not Given Documented By: [id number] Admin: 03/22/23 08:26 Dose: Not Given Documented By: MARY Heparin Sodium (Porcine) (Heparin Sod 5,000 Unit/0.5 Ml Vial) 5,000 units SQ Q12 [facility] Stop: 04/21/23 08:59 Last Admin: 03/27/23 08:30 Dose: Not Given Documented By: Admin: 03/26/23 20:28 Dose: Not Given Documented By: Admin: 03/26/23 08:10 Dose: Not Given Documented By: Admin: 03/25/23 20:43 Dose: Not Given Documented By: Admin: 03/25/23 08:14 Dose: Not Given Documented By: Admin: 03/24/23 21:00 Dose: Not Given Documented By: Admin: 03/24/23 08:21 Dose: Not Given Documented By: ROSA MARIA Admin: 03/23/23 20:06 Dose: Not Given Documented By: Admin: 03/23/23 07:58 Dose: Not Given Documented By: [id number] Admin: 03/22/23 21:43 Dose: Not Given Documented By: Admin: 03/22/23 08:25 Dose: Not Given Documented By: MARY Insulin Aspart (Insulin Aspart Per Unit Charge) 0 units SC ACHS SABINE Stop: 04/21/23 07:29 Last Admin: 03/27/23 08:13 Dose: 3 units Documented By: THOMAS Co-signed By: ROBBIE Admin: 03/26/23 20:35 Dose: 2 units Documented By: HALEY Co-signed By: PAIGE Admin: 03/26/23 17:32 Dose: 10 units Documented By: RADHA Co-signed By: PAUL Admin: 03/26/23 13:07 Dose: 9 units Documented By: RADHA Co-signed By: PAUL Admin: 03/26/23 08:08 Dose: 6 units Documented By: RADHA Co-signed By: MERRY Admin: 03/25/23 20:39 Dose: Not Given Documented By: Admin: 03/25/23 17:34 Dose: 8 units Documented By: RADHA Co-signed By: KONRAD Admin: 03/25/23 12:23 Dose: 8 units Documented By: RADHA Co-signed By: KONRAD Admin: 03/25/23 08:11 Dose: 5 units Documented By: RADHA Co-signed By: CASSANDRA Admin: 03/24/23 21:00 Dose: Not Given Documented By: Admin: 03/24/23 17:27 Dose: 10 units Documented By: ROSA MARIA Co-signed By: MARY Admin: 03/24/23 12:29 Dose: 8 units Documented By: ROSA MARIA Co-signed By: THOMAS Admin: 03/24/23 08:26 Dose: 12 units Documented By: ROSA MARIA Co-signed By: DOREEN Admin: 03/23/23 20:17 Dose: 6 units Documented By: PORFIRIO Co-signed By: TERRENCE Admin: 03/23/23 17:14 Dose: 10 units Documented By: ALEK Co-signed By: KONRAD Admin: 03/23/23 12:52 Dose: 5 units Documented By: [id number] Co-signed By: SAAD Admin: 03/23/23 09:16 Dose: 4 units Documented By: [id number] Co-signed By: SAAD Admin: 03/22/23 21:44 Dose: Not Given Documented By: Admin: 03/22/23 17:18 Dose: 4 units Documented By: MARY Co-signed By: SAAD Admin: 03/22/23 12:27 Dose: 5 units Documented By: MARY Co-signed By: ANGEL Admin: 03/22/23 08:23 Dose: 5 units Documented By: MARY Co-signed By: SAAD Insulin Glargine (Lantus Per Unit Charge) 20 units SC DAILY [facility] Stop: 04/21/23 08:59 Last Admin: 03/27/23 08:33 Dose: 20 units Documented By: THOMAS Co-signed By: MERRY Admin: 03/26/23 08:08 Dose: 20 units Documented By: RADHA Co-signed By: MERRY Admin: 03/25/23 08:11 Dose: 20 units Documented By: RADHA Co-signed By: CASSANDRA Admin: 03/24/23 08:26 Dose: 20 units Documented By: ROSA MARIA Co-signed By: DOREEN Admin: 03/23/23 09:16 Dose: 20 units Documented By: [id number] Co-signed By: SAAD Admin: 03/22/23 08:23 Dose: 20 units Documented By: MARY Co-signed By: SAAD Levothyroxine Sodium (Levothyroxine Sodium 150 Mcg Tablet) 150 mcg PO DAILYBB [facility] Stop: 04/21/23 06:29 Last Admin: 03/27/23 05:30 Dose: 150 mcg Documented By: Admin: 03/26/23 05:35 Dose: 150 mcg Documented By: Admin: 03/25/23 05:43 Dose: 150 mcg Documented By: Admin: 03/24/23 05:22 Dose: 150 mcg Documented By: Admin: 03/23/23 06:08 Dose: 150 mcg Documented By: Admin: 03/22/23 08:27 Dose: Not Given Documented By: MARY Losartan Potassium (Losartan Potassium 50 Mg Tab) 100 mg PO QAM [facility] Stop: 04/21/23 08:59 Last Admin: 03/27/23 08:25 Dose: 100 mg Documented By: Admin: 03/26/23 08:09 Dose: 100 mg Documented By: Admin: 03/25/23 08:13 Dose: 100 mg Documented By: Admin: 03/24/23 08:20 Dose: 100 mg Documented By: ROSA MARIA Admin: 03/23/23 07:59 Dose: 100 mg Documented By: [id number] Admin: 03/22/23 08:30 Dose: 100 mg Documented By: MARY Metoprolol Succinate (Metoprolol Succ 50mg Ext Rel Tab) [facility] [place] Stop: 04/24/23 08:59 Last Admin: 03/27/23 08:26 Dose: 50 mg Documented By: Admin: 03/26/23 08:09 Dose: 50 mg Documented By: Admin: 03/25/23 08:37 Dose: Not Given Documented By: RADHA Potassium Chloride (Potassium Chloride Pwd 20 Meq Pack) 20 meq PO BID [facility] Stop: 04/25/23 08:59 Last Admin: 03/27/23 08:26 Dose: 20 meq Documented By: Admin: 03/26/23 20:35 Dose: 20 meq Documented By: Admin: 03/26/23 09:12 Dose: 20 meq Documented By: RADHA Triamcinolone Acetonide (Triamcinolone Acet 0.1% Cr 80 Gm Tube) 1 appln EXT TID [facility] Stop: 04/26/23 08:59 Last Admin: 03/27/23 08:37 Dose: 1 appln Documented By: THOMAS Discontinued Medications Bumetanide (Bumetanide 1 Mg Tab) [facility] [place] Stop: 04/21/23 13:14 Last Admin: 03/25/23 08:13 Dose: 2 mg Documented By: Admin: 03/24/23 08:20 Dose: 2 mg Documented By: ROSA MARIA Admin: 03/23/23 09:57 Dose: 2 mg Documented By: [id number] Admin: 03/22/23 14:15 Dose: 2 mg Documented By: MARY Bumetanide (Bumetanide 1 Mg Tab) 1 mg PO NOW ONE Stop: 03/25/23 08:46 Last Admin: 03/25/23 08:59 Dose: 1 mg Documented By: RADHA Ceftriaxone Sodium (Rocephin) 2,000 mg in 70 mls @ 140 mls/hr IV NOW STA Stop: 03/22/23 01:48 Last Infusion: 03/22/23 02:05 Dose: 0 mls/hr Documented By: Admin: 03/22/23 01:28 Dose: 140 mls/hr Documented By: DANIELLE Ceftriaxone Sodium 2,000 mg/ (Dextrose) 70 mls @ 100 mls/hr IV Q24H [facility]; Protocol Stop: 03/25/23 01:41 Last Infusion: 03/24/23 01:14 Dose: 0 mls/hr Documented By: Admin: 03/24/23 00:01 Dose: 100 mls/hr Documented By: Infusion: 03/23/23 03:31 Dose: 0 mls/hr Documented By: Admin: 03/23/23 00:12 Dose: 100 mls/hr Documented By: PORFIRIO Sodium Chloride (Nss 1000ml) 1,000 mls @ 80 mls/hr IV .[id number] [facility] Stop: 03/22/23 19:14 Last Infusion: 03/22/23 13:07 Dose: 0 mls/hr Documented By: Admin: 03/22/23 08:25 Dose: 80 mls/hr Documented By: MARY Metoprolol Succinate (Metoprolol Succ 25mg Ext Rel Tab) 25 mg PO QAM [facility] Stop: 04/21/23 08:59 Last Admin: 03/25/23 08:13 Dose: 25 mg Documented By: Admin: 03/24/23 09:14 Dose: 25 mg Documented By: ROSA MARIA Admin: 03/23/23 09:17 Dose: 25 mg Documented By: [id number] Admin: 03/22/23 08:30 Dose: 25 mg Documented By: MARY Metoprolol Succinate (Metoprolol Succ 25mg Ext Rel Tab) 25 mg PO NOW [facility] [place] Stop: 03/25/23 08:36 Last Admin: 03/25/23 08:59 Dose: 25 mg Documented By: RADHA Imaging Data Radiologist's Impression: Abdomen/Pelvis CT 03/22/23 01:23 Exam(s): CT ABDOMEN + PELVIS Without Contrast EXAM: CT Abdomen and Pelvis Without Intravenous Contrast CLINICAL HISTORY: Reason for exam: UTI, R back pain. TECHNIQUE: Axial computed tomography images of the abdomen and pelvis without intravenous contrast. Automated exposure control was utilized for the study. A dose lowering technique was utilized adhering to the principles of ALARA. COMPARISON: CT abdomen pelvis 11/25/2022 FINDINGS: Lung bases: Trace interstitial edema. Atelectasis of the left lung base. Small left pleural effusion. Heart: Small pericardial effusion. ABDOMEN: Liver: Unremarkable. Gallbladder and bile ducts: Unremarkable. Pancreas: Unremarkable. Spleen: Unremarkable. Adrenals: Unremarkable. Kidneys and ureters: Moderate right hydronephrosis. No obstructing stone. Findings may be related to recently passed stone or infection. No hydronephrosis in the left kidney. Stomach and bowel: Unremarkable. PELVIS: Appendix: No findings to suggest acute appendicitis. Bladder: Bladder appears inflamed suggestive of cystitis. Reproductive: Unremarkable as visualized. ABDOMEN and PELVIS: Intraperitoneal space: Unremarkable. No free air. No significant fluid collection. Bones/joints: No acute fracture. Soft tissues: Unremarkable. Vasculature: Unremarkable. Lymph nodes: Unremarkable. IMPRESSION: 1. Moderate right hydronephrosis. No obstructing stone. Findings may be related to recently passed stone or infection. 2. Bladder appears inflamed suggestive of cystitis. 3. Trace interstitial edema. Atelectasis of the left lung base. Small left pleural effusion. 4. Small pericardial effusion. Electronically signed by: Colton Whitten MD 03/22/23 04:33 AM Discharge Plan Visit Data Chief Complaint: Urinary Symptoms Stated Complaint: R Flank Pain, Painful Urination ED Provider: Lily Senior Discharge Problem: Acute UTI, Leukocytosis, Hydronephrosis Patient Disposition: Admitted As Inpatient Discharge Instructions Interventions: ED Discharge Assessment Last Done: 03/22/23 03:54
[2023-03-22] MEDS ORDERED: GLUCAGON FOR INJ 1 MG VIAL SQ PRN (04:23)
[2023-03-22] MEDS ORDERED: GLUCOSE 40% GEL 15 GM TUBE PO PRN (04:23)
[2023-03-22] MEDS ORDERED: POLYETHYLENE (MIRALAX) 17 GM PACK PO PRN (04:23)
[2023-03-22] MEDS ORDERED: ALBUTEROL HFA 8 GM INHALER INH PRN (04:23)
[2023-03-22] MEDS ORDERED: ACETAMINOPHEN 325 MG TAB PO PRN (04:23)
[2023-03-22] MEDS ORDERED: CARBOHYDRATES FOR HYPOGLYCEMIA PO PRN (04:23)
[2023-03-22] MEDS ORDERED: GLUCOSE 10 TAB/TUBE PO PRN (04:23)
[2023-03-22] MEDS ORDERED: DEXTROSE 50% 50 ML SYRINGE IV PRN (04:23)
[2023-03-22] MEDS ORDERED: PHARMACY GLYCEMIC MGMT CONSULT PRN (04:23)
[2023-03-22] MEDS ORDERED: ACETAMINOPHEN 500 MG TAB PO PRN (04:23)
[2023-03-22] MEDS ORDERED: ALUMINUM/MAGNESIUM SUSP 30 ML UDC PO PRN (04:23)
--- NOTE | 2023-03-22 04:34 | CT Scan Report ---
Exam(s): CT ABDOMEN + PELVIS Without Contrast EXAM: CT Abdomen and Pelvis Without Intravenous Contrast CLINICAL HISTORY: Reason for exam: UTI, R back pain. TECHNIQUE: Axial computed tomography images of the abdomen and pelvis without intravenous contrast. Automated exposure control was utilized for the study. A dose lowering technique was utilized adhering to the principles of ALARA. COMPARISON: CT abdomen pelvis 11/25/2022 FINDINGS: Lung bases: Trace interstitial edema. Atelectasis of the left lung base. Small left pleural effusion. Heart: Small pericardial effusion. ABDOMEN: Liver: Unremarkable. Gallbladder and bile ducts: Unremarkable. Pancreas: Unremarkable. Spleen: Unremarkable. Adrenals: Unremarkable. Kidneys and ureters: Moderate right hydronephrosis. No obstructing stone. Findings may be related to recently passed stone or infection. No hydronephrosis in the left kidney. Stomach and bowel: Unremarkable. PELVIS: Appendix: No findings to suggest acute appendicitis. Bladder: Bladder appears inflamed suggestive of cystitis. Reproductive: Unremarkable as visualized. ABDOMEN and PELVIS: Intraperitoneal space: Unremarkable. No free air. No significant fluid collection. Bones/joints: No acute fracture. Soft tissues: Unremarkable. Vasculature: Unremarkable. Lymph nodes: Unremarkable. IMPRESSION: 1. Moderate right hydronephrosis. No obstructing stone. Findings may be related to recently passed stone or infection. 2. Bladder appears inflamed suggestive of cystitis. 3. Trace interstitial edema. Atelectasis of the left lung base. Small left pleural effusion. 4. Small pericardial effusion. Electronically signed by: Colton Whitten MD 03/22/23 04:33 AM
[2023-03-22] MEDS ORDERED: SODIUM CHLORIDE 0.9% 1000ML 1,000 ML IV SCH (07:15)
[2023-03-22 07:52] LABS: Estimated Average Glucose 180 mg/dl; Hemoglobin A1C 7.9 % (4.5-5.6)
[2023-03-22] MEDS: LANTUS PER UNIT CHARGE SC SCH (08:23)
[2023-03-22] MEDS: INSULIN ASPART PER UNIT CHARGE SC SCH ×4 (08:23→21:44)
[2023-03-22] MEDS: HEPARIN SOD 5,000 UNIT/0.5 ML VIAL SQ SCH ×2 (08:25→21:43)
[2023-03-22] MEDS: FLUTICASONE/VILANTEROL 100/25MCG 14 PUFFS/INHALER INH SCH (08:26)
[2023-03-22] MEDS: LEVOTHYROXINE SODIUM 150 MCG TABLET PO SCH (08:27)
[2023-03-22] MEDS: LOSARTAN POTASSIUM 50 MG TAB PO SCH (08:30)
[2023-03-22] MEDS: METOPROLOL SUCC 25MG EXT REL TAB PO SCH (08:30)
--- NOTE | 2023-03-22 13:15 | Hospitalist Progress Note ---
Date of Service March 22, 2023 Assessment & Plan (1) Acute UTI: Plan: Presented with dysuria following recent hospitalization with Nassar catheterization Increased frequency and dysuria for 1-2 days On arrival patient was with an infected appearing UA and leukocytosis of 15,000. CT shows mild right hydro and bladder inflammation consistent with cystitis. No stone visualized, hydro is possibly consistent with a passed stone Given evidence of cystitis and UA patient continued on Rocephin. UCx remains pending Patient has had poor p.o. intake and was started on IV fluids, she also has a history of heart failure recently admitted 10 days ago. IV fluids discontinued as was with bibasilar crackles on reevaluation, Bumex continued. Creatinine is at baseline (2) Diabetes mellitus: Plan: Patient found to have elevated blood glucose of 234 in the ED Adequate control with glargine and SSI on reevaluation Continue basal bolus, POC glucose 103 on recheck 03/22 (3) Hypertension: Plan: Continue home dose of losartan 50 mg daily (4) (HFpEF) heart failure with preserved ejection fraction: Plan: Patient was admitted with a episode of CHF about 10 days ago Slight crackles developed 03/23, IV fluids discontinued, Bumex resumed (5) COPD (chronic obstructive pulmonary disease): Plan: Patient is a known history of COPD with no evidence of acute exacerbation at this time Continue bronchodilators as needed (6) Hypothyroidism: Plan: Continue home dose of levothyroxine 150 mcg daily (7) Renal cyst, left: Plan: Patient with a prior history of a left 2 x 1.3 x 2.4 cm cyst 11/26/2022. No cyst is noted on noncontrasted CT overnight, patient has extreme anxiety around this as her had a renal mass which was subsequently found to be rapidly progressive cancer. Renal ultrasound pending Plan Clinically improving without YUMI. Patient at high readmission risk with multiple complications and now with 2 L oxygen requirement after fluids, will continue antibiotics pending culture results, discontinue IVF, and resume Bumex Admission and Anticipated Discharge Date Admission Date: March 22, 2023 Brittanie Boyce is seen at the bedside. She reports that she still little tender in the abdomen and has a poor appetite, but her pain is improved from when she came in and she is actually little hungry today. She is extremely anxious about her renal cyst which was pending reimaging as her had rapidly progressive pancreatic cancer which had presented as a renal cyst. She also expresses some frustration at having a UTI as a complication of Nassar catheterization, but notes that it has happened before and she understands why she had a Nassar with her prior heart failure. She denies fever, chills, sweats. She remains fatigued, but denies orthostasis. Denies chest pain, chest pressure. Review of Systems Review of Systems: All systems reviewed & are unremarkable except as noted in HPI & below Physical Exam Physical Exam: General: A&Ox3. NAD. Cooperative. HEENT: Atraumatic, normocephalic. Vision/hearing intact Pulm: CTAB A&P. -wheezes, -rales, -rhonchi. Left greater than right crackles in the bases symmetrical chest rise. No increased work of breathing. No respiratory distress. Cardiac: RRR, -mrg. Radial pulses intact and symmetrical. Abdominal: Minimally tender infraumbilically. No rebound tenderness. No guarding. Results & Data Results & Data Vital Signs (Past 12 Hours) Vital Signs Temp Pulse Pulse Resp BP BP Pulse Ox 03/22/23 11:08 37.0 C 79 18 161/79 H 97 03/22/23 07:08 36.8 C 88 18 159/79 H 97 03/22/23 05:59 85 03/22/23 06:37 91 H 03/22/23 04:34 03/22/23 04:23 36.7 C 94 H 18 147/82 H 96 03/22/23 03:54 36.7 C 86 22 168/81 H 96 03/22/23 03:30 90 23 168/81 H 96 03/22/23 03:00 89 20 182/86 H 97 03/22/23 02:30 93 H 22 183/97 H 96 03/22/23 02:01 20 196/89 H 96 O2 Del Method O2 Flow Rate 03/22/23 11:08 Nasal Cannula 2 03/22/23 07:08 Nasal Cannula 2 03/22/23 05:59 03/22/23 06:37 03/22/23 04:34 Nasal Cannula 2 03/22/23 04:23 Nasal Cannula 2 03/22/23 03:54 Nasal Cannula 2 03/22/23 03:30 Nasal Cannula 2 03/22/23 03:00 Nasal Cannula 2 03/22/23 02:30 Nasal Cannula 2 03/22/23 02:01 Nasal Cannula 2 PG Care Time/CCT Total # of Minutes Spent Total Time Spent with Patient: Total time spent is greater than 50% in coordination of care (as documented) at patient's floor/unit and/or counseling patient: Coding Level of Care Code 83643 SUB INP/OBS CARE 2/35MIN Diagnoses Acute UTI N39.0 Diabetes mellitus E11.9 Hypertension I10 (HFpEF) heart failure with preserved ejection fraction I50.30 COPD (chronic obstructive pulmonary disease) J44.9 Hypothyroidism E03.9 Renal cyst, left N28.1
[2023-03-22] MEDS: BUMETANIDE 1 MG TAB PO SCH (14:15)
--- NOTE | 2023-03-22 21:43 | Ultrasound Report ---
ULTRASOUND KIDNEYS AND BLADDER CLINICAL HISTORY: Renal cyst. COMPARISON STUDY: Abdominal CT performed the same date 03/22/2023 and 11/26/2022. TECHNIQUE: Real-time, grayscale, and color flow sonography of the kidneys and bladder is performed. I mages are reviewed in the transverse and longitudinal planes. FINDINGS: Kidneys: The kidneys are normal in size and echotexture. The right kidney measures 13.0 x 5.9 x 5.7 c m and the left kidney measures 12.7 x 6.3 x 4.8 cm. There is mild bilateral hydronephrosis, right gre ater than left. No shadowing renal calculi are identified. A 2.1 cm minimally complex/debris-containi ng cyst is again seen on the left. There is no sonographic evidence of solid renal mass lesion. Trace nonspecific perinephric fluid is seen bilaterally. Bladder: The bladder wall appears thickened. Ureteral jets were not seen. IMPRESSION: 1. There is mild bilateral hydronephrosis, right greater than left. 2. The bladder wall appears thickened. Correlate with clinical findings and urinalysis. 3. A 2.1 cm minimally complex/debris-containing renal cyst is again seen on the left. ACT 112: Negative or not required by law. Electronically signed by: Michelet Morocho M.D. 03/22/2023 9:42 PM
[2023-03-23] MEDS: cefTRIAXone SODIUM 2,000 MG in DEXTROSE 5% 50 ML IV SCH (00:12)
[2023-03-23] MEDS: LEVOTHYROXINE SODIUM 150 MCG TABLET PO SCH (06:08)
[2023-03-23] MEDS: HEPARIN SOD 5,000 UNIT/0.5 ML VIAL SQ SCH ×2 (07:58→20:06)
[2023-03-23] MEDS: BUMETANIDE 1 MG TAB PO SCH ×3 (07:59→09:57)
[2023-03-23] MEDS: FLUTICASONE/VILANTEROL 100/25MCG 14 PUFFS/INHALER INH SCH (07:59)
[2023-03-23] MEDS: LOSARTAN POTASSIUM 50 MG TAB PO SCH (07:59)
[2023-03-23] MEDS: LANTUS PER UNIT CHARGE SC SCH (09:16)
[2023-03-23] MEDS: INSULIN ASPART PER UNIT CHARGE SC SCH ×4 (09:16→20:17)
[2023-03-23] MEDS: METOPROLOL SUCC 25MG EXT REL TAB PO SCH (09:17)
[2023-03-23] MEDS ORDERED: PHENAZOPYRIDINE HCL 100 MG TAB PO PRN (09:44)
[2023-03-23 09:48] LABS: Basophils # (auto) 0.03 K/uL (0-0.2); Basophils % (auto) 0.3 %; Eosinophils # (auto) 0.35 K/uL (0-0.50); Eosinophils % (auto) 3.5 %; Hemoglobin 10.3 g/dl (12.0-16.0); Immature Granulocytes # (auto) 0.04 K/uL (0.01-0.20); Immature Granulocytes % (auto) 0.4 %; Lymphocytes # (auto) 1.07 K/uL (1.2-3.4); Lymphocytes % (auto) 10.8 %; Mean Corpuscular Hemoglobin 27.8 pg (25.0-34.0); Mean Corpuscular Hgb Conc 32.2 g/dL (32.0-36.0); Mean Corpuscular Volume 86.3 fL (80.0-100.0); Mean Platelet Volume 10.5 fL (9.4-12.4); Monocytes # (auto) 0.63 K/uL (0.11-0.59); Monocytes % (auto) 6.3 %; Neutrophils # (auto) 7.82 K/uL (1.40-6.50); Neutrophils % (auto) 78.7 %; Platelet Count 224 K/uL (130-400); RDW Coefficient of Variation 13.8 % (11.5-14.5); RDW Standard Deviation 43.3 fL (36.4-46.3); Red Blood Count 3.71 M/uL (4.20-5.40); White Blood Count 9.94 K/ul (4.8-10.8)
[2023-03-23 10:06] LABS: BUN Creatinine Ratio 27.5 (10-20); Calcium 8.3 mg/dl (8.6-10.3); Est GFR (African American) 83.6 ml/min; Est GFR (Non-African American) 72.1 ml/min; Potassium 3.5 mmol/L (3.5-5.1)
--- NOTE | 2023-03-23 19:02 | Hospitalist Progress Note ---
Date of Service March 23, 2023 Assessment & Plan (1) Acute UTI: Plan: 2nd GNR. Cont rocephin IV. CT a/p along with renal u/s reviewed - mild b/l hydronephrosis noted. No obstructing stones. CT a/p earlier this year (11/2022) did not show any stones; thus, doubt she pa ssed a stone prior to admission. (2) Diabetes mellitus: Plan: cont basal-bolus insulin a1c 7.9% this admission (3) Hypertension: Plan: Cont losartan 100mg daily Cont metoprolol succinate 25mg daily If BPs cont to remain high consider increase in metoprolol succinate (4) (HFpEF) heart failure with preserved ejection fraction: Plan: Pt's weight today is just slightly higher than her weight at time of recent hospital d/c Cont bumex Cont metoprolol succinate Daily labs (5) COPD (chronic obstructive pulmonary disease): Plan: No flare at this time Continue bronchodilators prn (6) Hypothyroidism: Plan: Continue home dose of levothyroxine 150 mcg daily TSH today >10; previous admission was <10 Either patient is not taking it daily or she is having problems absorbing it Would not change doses at this time (7) Renal cyst, left: Plan: 2.1 cm minimally complex/debris-containing renal cyst on left Should f/u with urology post-discharge for ongoing surveillance (8) Hydronephrosis, bilateral: Plan: b/l, worse on right 2nd to UTI? urinary reflux? chronic, incomplete bladder emptying? check PVR Rx UTI f/u with urology post-discharge Plan DVT proph - heparin BID updated pt's daughter by phone this evening Admission and Anticipated Discharge Date Admission Date: March 22, 2023 Subjective tele stable overnight patient sitting in chair during the visit states she has poor appetite had had mild right sided flank pain which radiated to the anterior right side of the abdomen just prior to admission - resolved is having mild dysuria denies any significant dyspnea Review of Systems Review of Systems: gen - no fevers or chills cv - no chest pain or tightness pulm - no cough; mild PANDEY GI - no further abd pain; no vomiting Physical Exam Physical Exam: gen - NAD, pleasant, nontoxic mouth - MMM neck - no JVD heart - RRR, s1 s2, no murmur lungs - mild b/l basilar rales, no wheeze abd - soft NT ND BS+; no HSM ext - 1-2+ edema b/l (lymphedema), pulses 2+ b/l skin - venous stasis changes b/l shins with hyperpigmentation psych - a/o x 3 Results & Data Results & Data Vital Signs (Past 12 Hours) Vital Signs Temp Pulse Pulse Resp BP Pulse Ox O2 Del Method 03/23/23 16:26 Nasal Cannula 03/23/23 15:01 79 03/23/23 14:47 36.8 C 78 20 167/76 H 97 Nasal Cannula 03/23/23 11:42 36.7 C 79 20 180/80 H 97 Nasal Cannula 03/23/23 09:57 Nasal Cannula 03/23/23 09:42 83 03/23/23 07:16 36.8 C 81 20 172/75 H 97 Nasal Cannula O2 Flow Rate 03/23/23 16:26 2 03/23/23 15:01 03/23/23 14:47 2 03/23/23 11:42 2 03/23/23 09:57 03/23/23 09:42 03/23/23 07:16 2 Laboratory Results Laboratory Results - last 24 hr 03/22/23 03/23/23 03/23/23 20:37 07:22 09:29 WBC 9.94 RBC 3.71 L Hgb 10.3 L Hct 32.0 L MCV 86.3 MCH 27.8 MCHC 32.2 RDW Std Deviation 43.3 RDW Coeff of Smith 13.8 Plt Count 224 MPV 10.5 Immature Gran % (Auto) 0.4 Neut % (Auto) 78.7 Lymph % (Auto) 10.8 [place] % (Auto) 6.3 Eos % (Auto) 3.5 Baso % (Auto) 0.3 Neut # (Auto) 7.82 H Lymph # (Auto) 1.07 L [place] # (Auto) 0.63 H Eos # (Auto) 0.35 Baso # (Auto) 0.03 Immature Gran # (Auto) 0.04 Sodium Potassium Chloride Carbon Dioxide Anion Gap BUN Creatinine Est Cr Clr Drug Dosing Est GFR ( Amer) Est GFR (Non-Af Amer) BUN/Creatinine Ratio Glucose POC Glucose 122 H 132 H Calcium Magnesium TSH 03/23/23 03/23/23 03/23/23 09:29 09:29 09:29 WBC RBC Hgb Hct MCV MCH MCHC RDW Std Deviation RDW Coeff of Smith Plt Count MPV Immature Gran % (Auto) Neut % (Auto) Lymph % (Auto) [place] % (Auto) Eos % (Auto) Baso % (Auto) Neut # (Auto) Lymph # (Auto) [place] # (Auto) Eos # (Auto) Baso # (Auto) Immature Gran # (Auto) Sodium 140 Potassium 3.5 Chloride 100 Carbon Dioxide 35 H Anion Gap 5 BUN 22 Creatinine 0.80 Est Cr Clr Drug Dosing 72.0 Est GFR ( Amer) 83.6 Est GFR (Non-Af Amer) 72.1 BUN/Creatinine Ratio 27.5 H Glucose 168 H POC Glucose Calcium 8.3 L Magnesium 1.8 TSH 14.236 H 03/23/23 03/23/23 11:44 16:22 WBC RBC Hgb Hct MCV MCH MCHC RDW Std Deviation RDW Coeff of Smith Plt Count MPV Immature Gran % (Auto) Neut % (Auto) Lymph % (Auto) [place] % (Auto) Eos % (Auto) Baso % (Auto) Neut # (Auto) Lymph # (Auto) [place] # (Auto) Eos # (Auto) Baso # (Auto) Immature Gran # (Auto) Sodium Potassium Chloride Carbon Dioxide Anion Gap BUN Creatinine Est Cr Clr Drug Dosing Est GFR ( Amer) Est GFR (Non-Af Amer) BUN/Creatinine Ratio Glucose POC Glucose 152 H 180 H Calcium Magnesium TSH PG Care Time/CCT Total # of Minutes Spent Total Time Spent with Patient: Total time spent is greater than 50% in coordination of care (as documented) at patient's floor/unit and/or counseling patient: Coding Level of Care Code 55622 SUB INP/OBS CARE 2/35MIN Diagnoses Acute UTI N39.0 Diabetes mellitus E11.9 Hypertension I10 (HFpEF) heart failure with preserved ejection fraction I50.30 COPD (chronic obstructive pulmonary disease) J44.9 Hypothyroidism E03.9 Renal cyst, left N28.1 Hydronephrosis, bilateral N13.30
[2023-03-24] MEDS: cefTRIAXone SODIUM 2,000 MG in DEXTROSE 5% 50 ML IV SCH (00:01)
[2023-03-24] MEDS: LEVOTHYROXINE SODIUM 150 MCG TABLET PO SCH (05:22)
[2023-03-24] MEDS: LOSARTAN POTASSIUM 50 MG TAB PO SCH (08:20)
[2023-03-24] MEDS: BUMETANIDE 1 MG TAB PO SCH (08:20)
[2023-03-24] MEDS: HEPARIN SOD 5,000 UNIT/0.5 ML VIAL SQ SCH ×2 (08:21→21:00)
[2023-03-24] MEDS: FLUTICASONE/VILANTEROL 100/25MCG 14 PUFFS/INHALER INH SCH (08:21)
[2023-03-24] MEDS: LANTUS PER UNIT CHARGE SC SCH (08:26)
[2023-03-24] MEDS: INSULIN ASPART PER UNIT CHARGE SC SCH ×4 (08:26→21:00)
[2023-03-24 08:34] LABS: Calcium 8.4 mg/dl (8.6-10.3); Creatinine Clr Calc Pharmacy 78.8 ml/min; Est GFR (African American) 96.6 ml/min; Est GFR (Non-African American) 83.3 ml/min; Potassium 3.7 mmol/L (3.5-5.1)
[2023-03-24] MEDS: METOPROLOL SUCC 25MG EXT REL TAB PO SCH (09:14)
[2023-03-24] MEDS: cephALEXin 500 MG CAP PO SCH (20:59)
--- NOTE | 2023-03-24 21:37 | Hospitalist Progress Note ---
Date of Service March 24, 2023 Assessment & Plan (1) Acute UTI: Plan: 2nd pansensitive proteus. Stop IV rocephin. Change to po keflex 500mg BID x [address] a/p along with renal u/s reviewed - mild b/l hydronephrosis noted. No obstructing stones. CT a/p earlier this year (11/2022) did not show any stones; thus, doubt she passed a stone prior to admission. PVR yesterday ~120cc. Uncertain if this is chronic or due to acute UTI. Follow. (2) (HFpEF) heart failure with preserved ejection fraction: Plan: mild dyspnea and mild edema on lung exam cont bumex consider dose of metolazone tomorrow prior to AM bumex OR could consider aldactone + bumex labs am daily standing scale weights if possible (3) Diabetes mellitus: Plan: cont basal-bolus insulin a1c 7.9% this admission BSGs controlled (4) Hypertension: Plan: Cont losartan 100mg daily Cont metoprolol succinate 25mg daily BPs remain high - consider increase in metoprolol to 50mg/day (5) COPD (chronic obstructive pulmonary disease): Plan: No flare at this time Continue bronchodilators prn (6) Hypothyroidism: Plan: Continue home dose of levothyroxine 150 mcg daily TSH this admission >10; previous admission was <10 Either patient is not taking it daily or she is having problems absorbing it Will inquire with endo about suggestions to maintain euthyroid state (7) Renal cyst, left: Plan: 2.1 cm minimally complex/debris-containing renal cyst on left Should f/u with urology post-discharge for ongoing surveillance (8) Hydronephrosis, bilateral: Plan: b/l, worse on right 2nd to UTI? urinary reflux? chronic, incomplete bladder emptying? mild PVR of ~120cc yesterday - this bears watching carefully Rx UTI f/u with urology post-discharge Plan DVT proph - heparin BID - but patient refusing such updated pt's daughter by phone yesterday pm Admission and Anticipated Discharge Date Admission Date: March 22, 2023 Subjective tele overnight wnl had a mild right sided abd pain last pm transient resolved on its own did have BM yesterday pm and today no recurrent abd pain today dysuria improved still with dyspnea with moving from bed to chair Review of Systems Review of Systems: gen - no fevers ; eating improved today cv - no chest pain; ongoing chronic lymphedema pul - no cough GI - no nausea or emesis Physical Exam Physical Exam: gen - NAD, pleasant, nontoxic, sitting in chair mouth - MMM neck - no JVD heart - RRR, s1 s2, no murmur lungs - b/l basilar rales L>R, no wheeze abd - soft NT ND BS+; no HSM ext - 2+ edema b/l (lymphedema), pulses 2+ b/l skin - venous stasis changes b/l shins with hyperpigmentation psych - a/o x 3 Results & Data Results & Data Vital Signs (Past 12 Hours) Vital Signs Temp Pulse Pulse Resp BP Pulse Ox O2 Del Method 03/24/23 19:54 36.3 C L 85 20 145/72 H 93 Nasal Cannula 03/24/23 15:37 36.9 C 76 18 173/79 H 98 Nasal Cannula 03/24/23 15:29 76 O2 Flow Rate 03/24/23 19:54 3 03/24/23 15:37 2 03/24/23 15:29 Laboratory Results Laboratory Results - last 24 hr 03/24/23 03/24/23 03/24/23 07:36 07:43 11:53 Sodium 140 Potassium 3.7 Chloride 99 Carbon Dioxide 36 H Anion Gap 5 BUN 22 Creatinine 0.71 Est Cr Clr Drug Dosing 78.8 Est GFR ( Amer) 96.6 Est GFR (Non-Af Amer) 83.3 BUN/Creatinine Ratio 31.0 H Glucose 121 H POC Glucose 127 H 156 H Calcium 8.4 L 03/24/23 03/24/23 16:42 20:47 Sodium Potassium Chloride Carbon Dioxide Anion Gap BUN Creatinine Est Cr Clr Drug Dosing Est GFR ( Amer) Est GFR (Non-Af Amer) BUN/Creatinine Ratio Glucose POC Glucose 172 H 152 H Calcium Diagnostic Findings Microbiology 03/22/23 00:18 Urine,Straight Cath Urine Culture - Final Proteus mirabilis PG Care Time/CCT Total # of Minutes Spent Total Time Spent with Patient: Total time spent is greater than 50% in coordination of care (as documented) at patient's floor/unit and/or counseling patient: Coding Level of Care Code 99376 SUB INP/OBS CARE 2/35MIN Diagnoses Acute UTI N39.0 (HFpEF) heart failure with preserved ejection fraction I50.30 Diabetes mellitus E11.9 Hypertension I10 COPD (chronic obstructive pulmonary disease) J44.9 Hypothyroidism E03.9 Renal cyst, left N28.1 Hydronephrosis, bilateral N13.30
[2023-03-25] MEDS: LEVOTHYROXINE SODIUM 150 MCG TABLET PO SCH (05:43)
[2023-03-25] MEDS: LANTUS PER UNIT CHARGE SC SCH (08:11)
[2023-03-25] MEDS: INSULIN ASPART PER UNIT CHARGE SC SCH ×4 (08:11→20:39)
[2023-03-25] MEDS: cephALEXin 500 MG CAP PO SCH ×2 (08:12→20:43)
[2023-03-25] MEDS: BUMETANIDE 1 MG TAB PO SCH ×2 (08:13→08:37)
[2023-03-25] MEDS: LOSARTAN POTASSIUM 50 MG TAB PO SCH (08:13)
[2023-03-25] MEDS: METOPROLOL SUCC 25MG EXT REL TAB PO SCH (08:13)
[2023-03-25] MEDS: HEPARIN SOD 5,000 UNIT/0.5 ML VIAL SQ SCH ×2 (08:14→20:43)
[2023-03-25] MEDS: FLUTICASONE/VILANTEROL 100/25MCG 14 PUFFS/INHALER INH SCH (08:14)
[2023-03-25] MEDS ORDERED: METOPROLOL SUCC 25MG EXT REL TAB PO STA (08:35)
[2023-03-25] MEDS: METOPROLOL SUCC 50MG EXT REL TAB PO SCH (08:37)
[2023-03-25] MEDS ORDERED: BUMETANIDE 1 MG TAB PO ONE (08:45)
[2023-03-25 09:11] LABS: Calcium 8.2 mg/dl (8.6-10.3); Potassium 3.8 mmol/L (3.5-5.1)
[2023-03-25 09:17] LABS: BUN Creatinine Ratio 31.6 (10-20); Creatinine Clr Calc Pharmacy 71.1 ml/min; Est GFR (African American) 84.9 ml/min; Est GFR (Non-African American) 73.2 ml/min
--- NOTE | 2023-03-25 20:44 | Hospitalist Progress Note ---
Date of Service March 25, 2023 Assessment & Plan (1) Acute UTI: Plan: 2nd pansensitive proteus. s/p IV rocephin x 2 doses, now on PO keflex 500mg BID x [address] a/p along with renal u/s reviewed - mild b/l hydronephrosis noted. No obstructing stones. CT a/p earlier this year (11/2022) did not show any stones; thus, doubt she passed a stone prior to admission. PVR ~120cc earlier this week. Uncertain if this is chronic or due to acute UTI. Follow. (2) (HFpEF) heart failure with preserved ejection fraction: Plan: ACUTE ON CHRONIC. weight still above dry weight, and still with rales on exam. increased bumex to 3mg daily today. labs am daily standing scale weights if possible (3) Diabetes mellitus: Plan: cont basal-bolus insulin a1c 7.9% this admission BSGs controlled (4) Hypertension: Plan: uncontrolled despite losartan 100mg daily + metoprolol succinate 25mg daily increase metoprolol to 50mg/day starting this am (5) COPD (chronic obstructive pulmonary disease): Plan: No flare at this time Continue bronchodilators prn (6) Hypothyroidism: Plan: Continue home dose of levothyroxine 150 mcg daily TSH this admission >10; previous admission was <10 Either patient is not taking it daily or she is having problems absorbing it Will inquire with endo about suggestions to maintain euthyroid state of note - she had a complete thyroidectomy years ago 2nd thyroid ca (7) Renal cyst, left: Plan: 2.1 cm minimally complex/debris-containing renal cyst on left Should f/u with urology post-discharge for ongoing surveillance (8) Hydronephrosis, bilateral: Plan: b/l, worse on right 2nd to UTI? urinary reflux? chronic, incomplete bladder emptying? mild PVR of ~120cc earlier this week- this bears watching carefully Rx UTI f/u with urology post-discharge Plan DVT proph - heparin BID - but patient refusing such PT, OT when able Admission and Anticipated Discharge Date Admission Date: March 22, 2023 Subjective tele again stable overnight only complaint is that of dyspnea with exertion & transfers about the same as yesterday no further flank pain or abd pain no further dysuria copious diuresis this am with 3mg of bumex eating well no other complaints Review of Systems Review of Systems: gen - no fevers or chills cv - no cp pulm - no wheezing GI - no nausea or emesis ; moving bowels Physical Exam Physical Exam: gen - NAD, pleasant, sitting in chair mouth - MMM neck - no JVD upright 90 degrees heart - RRR, s1 s2, no murmur lungs - b/l basilar rales L>R -- IMPROVED, less prominent today; no wheeze abd - soft NT ND BS+; no HSM ext - 1+ edema b/l (with lymphedema of feet), pulses 2+ b/l skin - venous stasis changes b/l shins with hyperpigmentation and stasis dermatitis findings psych - a/o x 3 Results & Data Results & Data Vital Signs (Past 12 Hours) Vital Signs Temp Pulse Pulse Resp BP Pulse Ox Pulse Ox 03/25/23 19:36 37.0 C 80 20 182/75 H 96 03/25/23 16:33 36.8 C 73 16 184/82 H 94 03/25/23 15:28 90 03/25/23 14:27 93 Pulse Ox O2 Del Method O2 Flow Rate 03/25/23 19:36 Nasal Cannula 2 03/25/23 16:33 Room Air 03/25/23 15:28 03/25/23 14:27 84 L Laboratory Results Laboratory Results - last 24 hr 03/24/23 03/25/23 03/25/23 20:47 07:32 07:46 Sodium 141 Potassium 3.8 Chloride 100 Carbon Dioxide 39 H Anion Gap 2 L BUN 25 H Creatinine 0.79 Est Cr Clr Drug Dosing 71.1 Est GFR ( Amer) 84.9 Est GFR (Non-Af Amer) 73.2 BUN/Creatinine Ratio 31.6 H Glucose 138 H POC Glucose 152 H 136 H Calcium 8.2 L 03/25/23 03/25/23 03/25/23 11:32 16:28 20:30 Sodium Potassium Chloride Carbon Dioxide Anion Gap BUN Creatinine Est Cr Clr Drug Dosing Est GFR ( Amer) Est GFR (Non-Af Amer) BUN/Creatinine Ratio Glucose POC Glucose 139 H 144 H 137 H Calcium PG Care Time/CCT Total # of Minutes Spent Total Time Spent with Patient: Total time spent is greater than 50% in coordination of care (as documented) at patient's floor/unit and/or counseling patient: Coding Level of Care Code 49725 SUB INP/OBS CARE 2MIN Diagnoses Acute UTI N39.0 (HFpEF) heart failure with preserved ejection fraction I50.30 Diabetes mellitus E11.9 Hypertension I10 COPD (chronic obstructive pulmonary disease) J44.9 Hypothyroidism E03.9 Renal cyst, left N28.1 Hydronephrosis, bilateral N13.30
[2023-03-26] MEDS: LEVOTHYROXINE SODIUM 150 MCG TABLET PO SCH (05:35)
[2023-03-26 08:03] LABS: Hematocrit (blood only) 32.1 % (37.0-47.0); Mean Corpuscular Hemoglobin 27.1 pg (25.0-34.0); Mean Corpuscular Hgb Conc 31.2 g/dL (32.0-36.0); Mean Platelet Volume 9.7 fL (9.4-12.4); Platelet Count 224 K/uL (130-400); RDW Coefficient of Variation 13.4 % (11.5-14.5); RDW Standard Deviation 43.1 fL (36.4-46.3); Red Blood Count 3.69 M/uL (4.20-5.40); White Blood Count 5.95 K/ul (4.8-10.8)
[2023-03-26] MEDS: LANTUS PER UNIT CHARGE SC SCH (08:08)
[2023-03-26] MEDS: INSULIN ASPART PER UNIT CHARGE SC SCH ×5 (08:08→20:35)
[2023-03-26] MEDS: METOPROLOL SUCC 50MG EXT REL TAB PO SCH (08:09)
[2023-03-26] MEDS: LOSARTAN POTASSIUM 50 MG TAB PO SCH (08:09)
[2023-03-26] MEDS: BUMETANIDE 1 MG TAB PO SCH (08:09)
[2023-03-26] MEDS: cephALEXin 500 MG CAP PO SCH ×2 (08:09→20:35)
[2023-03-26] MEDS: HEPARIN SOD 5,000 UNIT/0.5 ML VIAL SQ SCH ×2 (08:10→20:28)
[2023-03-26] MEDS: FLUTICASONE/VILANTEROL 100/25MCG 14 PUFFS/INHALER INH SCH (08:10)
[2023-03-26 08:18] LABS: BUN Creatinine Ratio 31.5 (10-20); Calcium 8.3 mg/dl (8.6-10.3); Creatinine Clr Calc Pharmacy 76.9 ml/min; Est GFR (African American) 93.4 ml/min; Est GFR (Non-African American) 80.6 ml/min; Potassium 3.5 mmol/L (3.5-5.1)
[2023-03-26] MEDS: POTASSIUM CHLORIDE PWD 20 MEQ PACK PO SCH ×2 (09:12→20:35)
[2023-03-26] MEDS: acetaZOLAMIDE 250 MG TAB PO SCH ×2 (09:22→20:34)
--- NOTE | 2023-03-26 20:45 | Hospitalist Progress Note ---
Date of Service March 26, 2023 Assessment & Plan (1) Acute UTI: Plan: 2nd pansensitive proteus. s/p IV rocephin x 2 doses, now on PO keflex 500mg BID x [address] resolved[address] a/p along with renal u/s reviewed - mild b/l hydronephrosis noted. No obstructing stones. CT a/p earlier this year (11/2022) did not show any stones; thus, doubt she passed a stone prior to admission. PVR ~120cc earlier this week. Uncertain if this is chronic or due to acute UTI. Repeat a PVR tomorrow. (2) (HFpEF) heart failure with preserved ejection fraction: Plan: ACUTE ON CHRONIC. improving nicely with increased bumex to 3mg daily. add diamox 250mg BID x 2 days for contraction alkalosis. check labs am daily standing scale weights if possible (3) Diabetes mellitus: Plan: cont basal-bolus insulin a1c 7.9% this admission BSGs controlled (4) Hypertension: Plan: improving control with increased dose of metoprolol to 50mg/day + losartan 100mg daily (5) COPD (chronic obstructive pulmonary disease): Plan: No flare at this time Continue bronchodilators prn Patient has requested neb machine for home for wheezing/dyspnea/cough - have ordered (6) Hypothyroidism: Plan: Continue home dose of levothyroxine 150 mcg daily TSH this admission >10; previous admission was <10 Either patient is not taking it daily or she is having problems absorbing it Will inquire with endo about suggestions to maintain euthyroid state of note - she had a complete thyroidectomy years ago 2nd thyroid ca has not had a normal TSH in 3+ years (7) Renal cyst, left: Plan: 2.1 cm minimally complex/debris-containing renal cyst on left Should f/u with urology post-discharge for ongoing surveillance (8) Hydronephrosis, bilateral: Plan: b/l, worse on right 2nd to UTI? urinary reflux? chronic, incomplete bladder emptying? mild PVR of ~120cc earlier this week- this bears watching carefully Rx UTI f/u with urology post-discharge Plan DVT proph - heparin BID - but cont to refuse such PT, OT home tomorrow or Wednesday Admission and Anticipated Discharge Date Admission Date: March 22, 2023 Subjective no events overnight tele wnl she is eating robustly no back/flank/abdominal or suprapubic pain no dysuria breathing is improved weight today is <200 # -- approaching dry weight Review of Systems Review of Systems: cv - no chest pain pulm - no dyspnea at rest; mild PANDEY GI - no N/V Physical Exam Physical Exam: gen - NAD, pleasant, sitting in chair, looks good mouth - MMM neck - no JVD upright 90 degrees heart - RRR, s1 s2, no murmur lungs - b/l basilar rales L>R nearly resolved, good airation abd - soft NT ND BS+; no HSM ext - <1+ edema b/l (with baseline lymphedema of feet), pulses 2+ b/l skin - venous stasis changes b/l shins with hyperpigmentation and stasis dermatitis findings psych - a/o x 3 Results & Data Results & Data Vital Signs (Past 12 Hours) Vital Signs Temp Pulse Pulse Resp BP Pulse Ox O2 Del Method 03/26/23 19:00 36.7 C 73 20 152/75 H 97 Nasal Cannula 03/26/23 16:30 79 03/26/23 15:15 37.0 C 75 18 168/75 H 97 Nasal Cannula 03/26/23 12:01 36.8 C 81 16 171/75 H 95 Room Air O2 Flow Rate 03/26/23 19:00 2 03/26/23 16:30 03/26/23 15:15 2 03/26/23 12:01 Laboratory Results Laboratory Results - last 24 hr 03/26/23 03/26/23 03/26/23 07:24 07:36 07:36 WBC 5.95 RBC 3.69 L Hgb 10.0 L Hct 32.1 L MCV 87.0 MCH 27.1 MCHC 31.2 L RDW Std Deviation 43.1 RDW Coeff of Smith 13.4 Plt Count 224 MPV 9.7 Sodium 142 Potassium 3.5 Chloride 99 Carbon Dioxide 40 H Anion Gap 3 BUN 23 Creatinine 0.73 Est Cr Clr Drug Dosing 76.9 Est GFR ( Amer) 93.4 Est GFR (Non-Af Amer) 80.6 BUN/Creatinine Ratio 31.5 H Glucose 105 H POC Glucose 110 H Calcium 8.3 L 03/26/23 03/26/23 03/26/23 11:15 16:23 20:04 WBC RBC Hgb Hct MCV MCH MCHC RDW Std Deviation RDW Coeff of Smith Plt Count MPV Sodium Potassium Chloride Carbon Dioxide Anion Gap BUN Creatinine Est Cr Clr Drug Dosing Est GFR ( Amer) Est GFR (Non-Af Amer) BUN/Creatinine Ratio Glucose POC Glucose 138 H 194 H 191 H Calcium PG Care Time/CCT Total # of Minutes Spent Total Time Spent with Patient: Total time spent is greater than 50% in coordination of care (as documented) at patient's floor/unit and/or counseling patient: Coding Level of Care Code 98693 SUB INP/OBS CARE 2/35MIN Diagnoses Acute UTI N39.0 (HFpEF) heart failure with preserved ejection fraction I50.30 Diabetes mellitus E11.9 Hypertension I10 COPD (chronic obstructive pulmonary disease) J44.9 Hypothyroidism E03.9 Renal cyst, left N28.1 Hydronephrosis, bilateral N13.30
[2023-03-27] MEDS: LEVOTHYROXINE SODIUM 150 MCG TABLET PO SCH (05:30)
[2023-03-27 07:00] LABS: BUN Creatinine Ratio 35.5 (10-20); Calcium 8.5 mg/dl (8.6-10.3); Creatinine Clr Calc Pharmacy 73.5 ml/min; Est GFR (African American) 88.9 ml/min; Est GFR (Non-African American) 76.7 ml/min; Potassium 3.7 mmol/L (3.5-5.1)
[2023-03-27] MEDS: INSULIN ASPART PER UNIT CHARGE SC SCH ×4 (08:13→21:37)
[2023-03-27] MEDS: FLUTICASONE/VILANTEROL 100/25MCG 14 PUFFS/INHALER INH SCH (08:23)
[2023-03-27] MEDS: cephALEXin 500 MG CAP PO SCH ×2 (08:25→21:39)
[2023-03-27] MEDS: BUMETANIDE 1 MG TAB PO SCH (08:25)
[2023-03-27] MEDS: acetaZOLAMIDE 250 MG TAB PO SCH ×2 (08:25→21:39)
[2023-03-27] MEDS: LOSARTAN POTASSIUM 50 MG TAB PO SCH (08:25)
[2023-03-27] MEDS: METOPROLOL SUCC 50MG EXT REL TAB PO SCH (08:26)
[2023-03-27] MEDS: POTASSIUM CHLORIDE PWD 20 MEQ PACK PO SCH ×2 (08:26→21:39)
[2023-03-27] MEDS: HEPARIN SOD 5,000 UNIT/0.5 ML VIAL SQ SCH (08:30)
[2023-03-27] MEDS: LANTUS PER UNIT CHARGE SC SCH (08:33)
[2023-03-27] MEDS: TRIAMCINOLONE ACET 0.1% CR 80 GM TUBE EXT SCH ×3 (08:37→21:40)
--- NOTE | 2023-03-27 14:35 | Hospitalist Progress Note ---
Date of Service March 27, 2023 Assessment & Plan (1) Acute UTI: Plan: 2nd pansensitive proteus. s/p IV rocephin x 2 doses, now on PO keflex 500mg BID x 5 additional days. day #3 today of keflex. clinically resolved. CT a/p along with renal u/s reviewed - mild b/l hydronephrosis noted. No obstructing stones. CT a/p earlier this year (11/2022) did not show any stones; thus, doubt she passed a stone prior to admission. PVR ~120cc earlier this week. Uncertain if this is chronic or due to acute UTI. Repeat a PVR tomorrow. (2) (HFpEF) heart failure with preserved ejection fraction: Plan: ACUTE ON CHRONIC. suspect we are near euvolemia. her dry weight on hospital d/c last time was 195#. we are very close to such today. cont bumex 3mg daily. finish diamox 250mg BID today for contraction alkalosis. check labs am daily standing scale weights if she continues to feel short of breath despite being euvolemic consider non- con CT chest (3) Diabetes mellitus: Plan: cont basal-bolus insulin a1c 7.9% this admission BSGs controlled (4) Hypertension: Plan: improving control with increased dose of metoprolol to 50mg/day + losartan 100mg daily (5) COPD (chronic obstructive pulmonary disease): Plan: No flare at this time Continue bronchodilators prn Patient has requested neb machine for home for wheezing/dyspnea/cough - have ordered (6) Hypothyroidism: Plan: Continue home dose of levothyroxine 150 mcg daily TSH this admission >10; previous admission was <10 Either patient is not taking it daily or she is having problems absorbing it Will inquire with endo about suggestions to maintain euthyroid state of note - she had a complete thyroidectomy years ago 2nd thyroid ca has not had a normal TSH in 3+ years (7) Renal cyst, left: Plan: 2.1 cm minimally complex/debris-containing renal cyst on left Should f/u with urology post-discharge for ongoing surveillance (8) Hydronephrosis, bilateral: Plan: b/l, worse on right 2nd to UTI? urinary reflux? chronic, incomplete bladder emptying? mild PVR of ~120cc earlier this week- this bears watching carefully Rx UTI f/u with urology post-discharge Plan DVT proph - heparin BID - but cont to refuse such check dopplers of legs due to assymetry of legs cont PT, OT home tomorrow if doing well daughter Irish updated by phone this evening can d/c tele and move to med/surg Admission and Anticipated Discharge Date Admission Date: March 22, 2023 Subjective tele wnl no events didn't sleep well last pm - was up most of the night due to her roommate is sleepy today due to such still modestly short of breath with trying to get out of bed but no dyspnea at rest eating well Review of Systems Review of Systems: gen - no fevers; sleepy today cv - no chest pain pulm - no cough GI - no abd pain musculo - no back pain Physical Exam Physical Exam: gen - NAD, pleasant, sitting in chair, looks sleepy today mouth - MMM neck - no JVD upright 90 degrees heart - RRR, s1 s2, no murmur lungs - b/l basilar rales L>R - mild, good airation abd - soft NT ND BS+; no HSM ext - <1+ edema b/l; overall edema of feet/shins/ankles MUCH improved skin - venous stasis changes b/l shins with hyperpigmentation and stasis dermatitis findings psych - a/o x 3 Results & Data Results & Data Vital Signs (Past 12 Hours) Vital Signs Temp Pulse Pulse Resp BP BP Pulse Ox 03/27/23 06:00 84 03/27/23 11:14 36.7 C 73 18 169/80 H 98 03/27/23 10:00 03/27/23 07:26 36.7 C 75 18 183/82 H 98 03/27/23 03:00 36.6 C 72 20 156/72 H 97 O2 Del Method O2 Flow Rate 03/27/23 06:00 03/27/23 11:14 Nasal Cannula 2 03/27/23 10:00 Nasal Cannula 2 03/27/23 07:26 Nasal Cannula 2 03/27/23 03:00 Nasal Cannula 2 Laboratory Results Laboratory Results - last 24 hr 03/26/23 03/26/23 03/27/23 16:23 20:04 06:16 Sodium 141 Potassium 3.7 Chloride 99 Carbon Dioxide 39 H Anion Gap 3 BUN 27 H Creatinine 0.76 Est Cr Clr Drug Dosing 73.5 Est GFR ( Amer) 88.9 Est GFR (Non-Af Amer) 76.7 BUN/Creatinine Ratio 35.5 H Glucose 118 H POC Glucose 194 H 191 H Calcium 8.5 L 03/27/23 03/27/23 07:21 11:28 Sodium Potassium Chloride Carbon Dioxide Anion Gap BUN Creatinine Est Cr Clr Drug Dosing Est GFR ( Amer) Est GFR (Non-Af Amer) BUN/Creatinine Ratio Glucose POC Glucose 109 H 133 H Calcium PG Care Time/CCT Total # of Minutes Spent Total Time Spent with Patient: Total time spent is greater than 50% in coordination of care (as documented) at patient's floor/unit and/or counseling patient: Coding Level of Care Code 08507 SUB INP/OBS CARE 2/35MIN Diagnoses Acute UTI N39.0 (HFpEF) heart failure with preserved ejection fraction I50.30 Diabetes mellitus E11.9 Hypertension I10 COPD (chronic obstructive pulmonary disease) J44.9 Hypothyroidism E03.9 Renal cyst, left N28.1 Hydronephrosis, bilateral N13.30
[2023-03-28] MEDS: LEVOTHYROXINE SODIUM 150 MCG TABLET PO SCH (05:41)
--- NOTE | 2023-03-28 07:06 | Ultrasound Report ---
ULTRASOUND BILATERAL LOWER EXTREMITY VENOUS CLINICAL HISTORY: Lower extremity edema. COMPARISON STUDY: Bilateral lower extremity venous ultrasound the 07/06/2022 TECHNIQUE: Real-time, grayscale, and color Doppler sonography of the deep veins of the right and left lower extremity was performed from the inguinal crease to the calf. Compression and augmentation wer e utilized. FINDINGS: There is no sonographic evidence of deep venous thrombosis identified in the right or left lower extremity. The common femoral, superficial femoral, and popliteal veins are patent and normally compressible bilaterally. The greater saphenous vein and the profunda femoris vein at the junction w ith the common femoral vein are clear in both legs. The visualized calf veins are patent bilaterally. IMPRESSION: There is no sonographic evidence of deep venous thrombosis identified in the right or lef t lower extremity. ACT 112: Negative or not required by law. Electronically signed by: Michelet Morocho M.D. 03/28/2023 7:04 AM
[2023-03-28 08:37] LABS: BUN Creatinine Ratio 31.5 (10-20); Calcium 8.4 mg/dl (8.6-10.3); Creatinine Clr Calc Pharmacy 60.8 ml/min; Est GFR (African American) 70.6 ml/min; Est GFR (Non-African American) 60.9 ml/min; Potassium 3.6 mmol/L (3.5-5.1)
[2023-03-28] MEDS: FLUTICASONE/VILANTEROL 100/25MCG 14 PUFFS/INHALER INH SCH (08:41)
[2023-03-28] MEDS: LANTUS PER UNIT CHARGE SC SCH (09:39)
[2023-03-28] MEDS: cephALEXin 500 MG CAP PO SCH ×2 (09:39→16:38)
[2023-03-28] MEDS: INSULIN ASPART PER UNIT CHARGE SC SCH ×2 (09:39→13:01)
[2023-03-28] MEDS: POTASSIUM CHLORIDE PWD 20 MEQ PACK PO SCH (09:40)
[2023-03-28] MEDS: LOSARTAN POTASSIUM 50 MG TAB PO SCH (09:40)
[2023-03-28] MEDS: BUMETANIDE 1 MG TAB PO SCH (09:40)
[2023-03-28] MEDS: TRIAMCINOLONE ACET 0.1% CR 80 GM TUBE EXT SCH ×2 (09:40→13:02)
[2023-03-28] MEDS: METOPROLOL SUCC 50MG EXT REL TAB PO SCH (09:40)
--- NOTE | 2023-03-28 14:58 | CT Scan Report ---
CT chest diagnostic wo con CLINICAL HISTORY: persistent b/l rales worse on left; ILD? other? TECHNIQUE: Multidetector row helical CT of the chest was performed. Coronal and sagittal reformations were obtained. Automated dose lowering techniques and/or adjustment according to patient size were u tilized for this exam. CT DOSE: 296.56 mGy.cm Comparison: Comparison is made to CT head 11/26/2019 FINDINGS: Lungs and pleura: Small left pleural effusion is seen. Left greater than right atelectasis is seen. T here is mild bilateral bronchiectasis. There is a 2 mm nodule in the right middle lobe (series 4 imag e 1 7). Heart and pericardium: Cardiomegaly is seen with biatrial enlargement. Vessels: Unremarkable. Mediastinum and jorge: Unremarkable. Chest wall and lower neck: Unremarkable. Abdomen: Unremarkable. Bones: Degenerative changes in the thoracic spine. IMPRESSION: Small left pleural effusion with associated atelectasis. Mild right atelectasis and bronchiectasis ar e seen. Findings may represent interstitial lung disease. ACT 112: Negative or not required by law. Electronically signed by: Austin Ritter M.D. 03/28/2023 2:56 PM
--- NOTE | 2023-03-28 16:57 | Discharge Summary ---
Date of Service March 28, 2023 Admission HPI Per Admitting Provider This is a 77-year-old female with a past medical history significant history of diabetes mellitus, hypertension, hypothyroidism, hyperlipidemia, CHF, COPD who presents to the emergency department complaints of urinary discomfort associated with burning urination. Patient has been having poor functional status with ambulatory difficulty and has been wheelchair-bound since she had a craniotomy surgery. Patient was admitted recently with respiratory insufficiency associated with CHF exacerbation and was treated with a course of IV diuretic therapy and was treated for COPD exacerbation about 10 days ago and was dis charged recently . Patient reports that over the past 24 hours she has had worsening of burning urination and hence presents to ED for further evaluation. Patient also has chronic lymphedema and has been using compression wraps and is also on insulin regimen for diabetes mellitus. Patient reports poor appetite and has not been eating keeping up with the p.o. intake over the past 1 to 2 days as well. Patient was evaluated in the ED and was found to have elevated white count of 15,000 along with evidence of UTI and has been started on IV antibiotic therapy with ceftriaxone and is being admitted for further management. Discharge Exam gen - NAD, pleasant, sitting in chair, looks sleepy today mouth - MMM neck - no JVD upright 90 degrees heart - RRR, s1 s2, no murmur lungs - b/l basilar rales L>R - mild, good airation abd - soft NT ND BS+; no HSM ext - <1+ edema b/l; overall edema of feet/shins/ankles MUCH improved skin - venous stasis changes b/l shins with hyperpigmentation and stasis dermatitis findings psych - a/o x 3 Discharge Data Allergies Allergy/AdvReac Type Severity Reaction Status Date / Time aspirin Allergy Severe HIVES; Verified 03/22/23 00:43 DIFFICULTY BREATHING colchicine Allergy Severe Difficulty Verified 03/22/23 00:43 Breathing Iodinated Contrast Media Allergy Intermediate Rash Verified 03/22/23 00:43 aspartame Allergy Unknown Unknown Verified 03/22/23 00:43 Benzodiazepines Allergy Unknown Unknown Verified 03/22/23 00:43 diltiazem Allergy Unknown UNKNOWN Verified 03/22/23 00:43 REACTION doxycycline Allergy Unknown Unknown Verified 03/22/23 00:43 melon Allergy Unknown Unknown Verified 03/22/23 00:43 nifedipine Allergy Unknown UNKNOWN Verified 03/22/23 00:43 REACTION simvastatin Allergy Unknown UNKNOWN Verified 03/22/23 00:43 REACTION PER PT sucralose Allergy Unknown Unknown Verified 03/22/23 00:43 vancomycin Allergy Unknown UNKNOWN Verified 03/22/23 00:43 REACTION Consultations 03/22/23 01:24 ED Decision to Admit Stat Ordered Studies 03/22/23 01:23 CT abd pelvis wo con Stat 03/22/23 13:01 US Renal Bladder [US renal/blad retro comp] Routine 03/27/23 14:33 US venous doppler LE BI Routine 03/28/23 12:31 CT chest diagnostic wo con Routine Hospital Course (1) Acute UTI: 2nd pansensitive proteus. s/p IV rocephin x 2 doses, now on PO keflex 500mg BID x 5 additional days. day #3 today of keflex. clinically resolved. CT a/p along with renal u/s reviewed - mild b/l hydronephrosis noted. No obstructing stones. CT a/p earlier this year (11/2022) did not show any stones; thus, doubt she passed a stone prior to admission. PVR ~120cc earlier this week. Uncertain if this is chronic or due to acute UTI. Repeat a PVR tomorrow. (2) (HFpEF) heart failure with preserved ejection fraction: ACUTE ON CHRONIC. suspect we are near euvolemia. her dry weight on hospital d/c last time was 195#. we are very close to such today. cont bumex 3mg daily. finish diamox 250mg BID today for contraction alkalosis. check labs am daily standing scale weights if she continues to feel short of breath despite being euvolemic consider non- con CT chest (3) Diabetes mellitus: cont basal-bolus insulin a1c 7.9% this admission BSGs controlled (4) Hypertension: improving control with increased dose of metoprolol to 50mg/day + losartan 100mg daily (5) COPD (chronic obstructive pulmonary disease): No flare at this time Continue bronchodilators prn Patient has requested neb machine for home for wheezing/dyspnea/cough - have ordered (6) Hypothyroidism: Continue home dose of levothyroxine 150 mcg daily TSH this admission >10; previous admission was <10 Either patient is not taking it daily or she is having problems absorbing it Will inquire with endo about suggestions to maintain euthyroid state of note - she had a complete thyroidectomy years ago 2nd thyroid ca has not had a normal TSH in 3+ years (7) Renal cyst, left: 2.1 cm minimally complex/debris-containing renal cyst on left Should f/u with urology post-discharge for ongoing surveillance (8) Hydronephrosis, bilateral: b/l, worse on right 2nd to UTI? urinary reflux? chronic, incomplete bladder emptying? mild PVR of ~120cc earlier this week- this bears watching carefully Rx UTI f/u with urology post-discharge Plan DVT proph - heparin BID - but cont to refuse such check dopplers of legs due to assymetry of legs cont PT, OT home tomorrow if doing well daughter Irish updated by phone this evening can d/c tele and move to med/surg Discharge Plan Discharge Items Patient Disposition: Home - Self-Care Reason For Visit: ACUTE UTI Discharge Diagnosis: 1. urinary tract infection - resolved 2. acute on chronic congestive heart failure with fluid build-up - discharge weight 196 pounds 3. obstructive lung disease as seen on pulmonary tests in the fall of 2021 4. bronchiectasis - seen on chest CT 03/28/23 - pulmonology follow-up recommended 5. hypothyroidism 6. chronic respiratory failure on home oxygen 7. left-sided renal cyst - urology follow-up recommended Activity: Resume your previous activity Non-emergency contact: Primary Care Provider and Shoe Handler Call non-emergency contact if: you have any medication questions, your symptoms worsen and you have a fever Follow-up/Referrals: Alma Dasilva PA-C [Physician Supervisor [facility]chlor[facility]] - (within 5 days with Ms Dasilva for congestive heart failure ) Luann France MD [Primary Care Provider] - 04/05/23 1:00 pm Diet: Carb Consistent or DM2 and Heart Healthy Fluids: 1500ml (6 cups) Addtl Attending Provider Instructions: Ms Paniagua, You were hospitalized for urinary tract infection (UTI) as well as fluid build- up from congestive heart failure. You were treated with IV then oral antibiotics for the UTI. You received diuretics for your fluid build-up. Over time both issues improved nicely. Your weight at time of discharge is 196 pounds. It appears your "dry weight" (baseline weight) is about 195-197 pounds. This is the weight when your body is rid of most fluid build-up. Note that you will likely always have some fluid in your feet/ankles. We performed a chest CT scan and this showed that most of the fluid build-up in the lungs was resolved. We did see evidence of bronchiectasis. See handout for more information. Given your oxygen dependency, obstructive lung disease seen on pulmonary tests done in 2021, and the bronchiectasis identified on CT scan please establish care with a [facility] Member Service Specialist. Recommendations - 1. You need 1 more day of antibiotic (cephalexin). Take 1 dose tomorrow am, and 1 dose tomorrow pm, then stop. 2. HOLD your bumetanide diuretic and your potassium supplement until you hear from our team or Ms Dasilva's office. We will contact you on Wednesday with when to resume your diuretic and at what dose. 3. Check your weight EVERY MORNING on the same scale. Write these numbers down in a notebook. Your dry weight is 195-197 pounds. 4. For the dry skin on your legs - triamcinolone cream twice daily in thin amounts for 5-7 days then stop. 5. We have increased your metoprolol succinate from 25mg daily to 50mg daily. This is for your heart and blood pressure. I have sent a new script to your pharmacy for you. You can start this tomorrow. 6. I have sent in a script for a box of albuterol nebulizer treatments. You can use these as needed once you have your nebulizer machine. 7. We identified a small cyst on your left kidney. Would recommend seeing a [facility] Urologist for this. Your family doctor's office can set this up for you. 8. Additional follow-up -- see separate section. Return to [facility] if - * you have fevers over 100 degrees * you develop severe diarrhea * you have worsening shortness of breath or chest pains * any other concerns It was our pleasure to care for you! -Dr Guerra Pending Studies at Discharge: No Stand-Alone Forms: My [facility] LUMI Mask, Smoking Cessation Medications and DC Order Prescriptions: New cephalexin 500 mg Capsule 500 mg PO BID 1 Days Qty: 2 0RF triamcinolone acetonide 0.1 % Cream 1 applic EXT BID Qty: 30 0RF Rx Instructions: apply twice daily in thin amounts to scaly, dry skin on front of legs; use for 5-7 days only. albuterol sulfate 2.5 mg/0.5 mL solution for nebulization 2.5 mg inhalation Q4H PRN (Reason: shortness of breath or wheezing or cough) Qty: 1 0RF Continued losartan 50 mg tablet 100 mg PO QAM Qty: 180 3RF (DME) nebulizer accessories Misc See Rx Instructions .Route Qty: 1 0RF Rx Instructions: Nebulizer, nebulizer tubing/accessories (DME) Bed Side Commode Misc See Rx Instructions .Route Qty: 1 0RF Rx Instructions: As directed (DME) inhaler,assist devices,access Device See Rx Instructions .MEDSUPPLY Qty: 1 0RF Rx Instructions: spacer for HFA inhlaer, use as directed albuterol sulfate 90 mcg/actuation HFA aerosol inhaler 2 puff INHALATION Q4H PRN (Reason: cough/wheeze/shortness of breath) Qty: 18 1RF (DME) Spacer for Inhaler Misc See Rx Instructions .Route Qty: 1 0RF Rx Instructions: As directed acetaminophen [Tylenol Extra Strength] 500 mg tablet 1,000 mg PO Q8H PRN (Reason: Pain) insulin detemir U-100 100 unit/mL (3 mL) insulin pen 30 unit subcut QAM Patient Comments: takes late morning (DME) blood-glucose meter [OneTouch Verio Meter] [facility] See Rx Instructions .Route Qty: 1 0RF Rx Instructions: As directed (DME) OneTouch Verio test strips Strip See Rx Instructions .ROUTE .MEDSUPPLY Qty: 100 3RF Rx Instructions: for once a day testing budesonide-formoterol [Symbicort] 80-4.5 mcg/actuation HFA aerosol inhaler 1 inh inhalation BID Qty: 10.2 2RF (DME) pen needle, diabetic [BD Ultra-Fine Micro Pen Needle] 32 gauge x 1/4" needle See Rx Instructions .ROUTE .MEDSUPPLY Qty: 50 0RF Rx Instructions: As directed (DME) lancets [OneTouch Delica Lancets] [facility] See Rx Instructions .ROUTE .MEDSUPPLY Qty: 100 0RF Rx Instructions: As directed levothyroxine 150 mcg tablet 150 mcg PO DAILYBB Changed metoprolol succinate 50 mg tablet extended release 24 hr 50 mg PO DAILY Qty: 30 2RF Rx Instructions: note increased dose Held bumetanide 2 mg tablet 2 mg PO QAM Qty: 30 2RF Hold Instructions: hold until you hear from Ms Dasilva from CHF clinic about when to resume and at what dose Rx Instructions: note larger dose potassium chloride 20 mEq packet 20 meq PO QAM Hold Instructions: hold until you have been asked to resume your bumetanide diuretic Discharge Orders: Discharge Order (Routine); Ordered 03/28/23 Ordered By: Yosef Tapia/Other Patient Handouts: Managing Type 2 Diabetes, Understanding Bronchiectasis Admission Data Admit Date/Time: 03/22/23 01:55 Attending Provider: Yosef Guerra Admit Provider: Ravi José Primary Care Provider: Luann France Other Providers: Ravi José Coding Diagnoses Acute UTI N39.0 (HFpEF) heart failure with preserved ejection fraction I50.30 Diabetes mellitus E11.9 Hypertension I10 COPD (chronic obstructive pulmonary disease) J44.9 Hypothyroidism E03.9 Renal cyst, left N28.1 Hydronephrosis, bilateral N13.30
--- NOTE | 2023-03-28 17:14 | Pharmacy Report ---
ED Pharmacist Progress Note - ED Pharmacist Progress Note Date of Service:: March 28, 2023 Notes:: Received call from [facility] re: inpatient prescription sent to them for albuterol 2.5mg/0.5mL solution for nebulization, would like to substitute albuterol 2.5 mg/3 mL solution for nebulization so it does not need to be diluted for use. Contacted Dr. Guerra re: substitution.
== END 2023-03-28 17:32 | disposition home or self-care (01) | DRG 689 ==
LOC: ED 23:54 → 2N 03-22 01:55 → SUATTDRO 03-22 01:55 → 2N 03-22 03:54 → 3W 03-27 17:46

== ENCOUNTER 2023-04-17 10:54 | Inpatient (IN) ==
[2023-04-17] MEDS ORDERED: SODIUM CHLORIDE 0.9% 1000ML 1,000 ML IV SCH (12:00)
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
[2023-04-17 12:28] LABS: Basophils # (auto) 0.05 K/uL (0-0.2); Basophils % (auto) 0.6 %; Eosinophils % (auto) 2.5 %; Hematocrit (blood only) 33.1 % (37.0-47.0); Hemoglobin 10.4 g/dl (12.0-16.0); Immature Granulocytes # (auto) 0.03 K/uL (0.01-0.20); Immature Granulocytes % (auto) 0.4 %; Lymphocytes # (auto) 1.27 K/uL (1.2-3.4); Lymphocytes % (auto) 15.6 %; Mean Corpuscular Hemoglobin 27.9 pg (25.0-34.0); Mean Corpuscular Hgb Conc 31.4 g/dL (32.0-36.0); Mean Corpuscular Volume 88.7 fL (80.0-100.0); Mean Platelet Volume 11.1 fL (9.4-12.4); Monocytes % (auto) 6.1 %; Neutrophils # (auto) 6.11 K/uL (1.40-6.50); Neutrophils % (auto) 74.8 %; Platelet Count 211 K/uL (130-400); RDW Coefficient of Variation 14.6 % (11.5-14.5); RDW Standard Deviation 47.4 fL (36.4-46.3); Red Blood Count 3.73 M/uL (4.20-5.40); White Blood Count 8.16 K/ul (4.8-10.8)
[2023-04-17 12:36] LABS: Albumin Level 3.4 gm/dl (3.4-5.0); BUN Creatinine Ratio 23.7 (10-20); Bilirubin,Total 0.5 mg/dl (0.2-1.0); Calcium 8.4 mg/dl (8.6-10.3); Creatinine Clr Calc Pharmacy 64.5 ml/min; Est GFR (African American) 88.9 ml/min; Est GFR (Non-African American) 76.7 ml/min; Globulin 3.3 gm/dl (2.5-4.0); Potassium 3.8 mmol/L (3.5-5.1); Total Protein 6.7 gm/dl (6.0-8.3)
[2023-04-17 12:51] LABS: Thyroid Stimulating Hormone 7.345 uIu/ml (0.300-4.500)
[2023-04-17 12:56] LABS: Prothrombin Time 10.9 Seconds (9.0-12.0)
--- NOTE | 2023-04-17 13:08 | XRay Report ---
XR chest 1V portable HISTORY: Shortness of breath. COMPARISON: Chest x-ray 03/05/2023. Chest CT 03/28/2023. FINDINGS: No pneumothorax. The cardiac silhouette remains mildly enlarged. There is diffuse interstit ial/vascular thickening consistent with mild pulmonary edema. Small left and trace right pleural effu sions persist. Left basilar density remains unchanged and may represent atelectasis from the pleural effusion. A pneumonia could also have a similar appearance. IMPRESSION: 1. Mild interstitial pulmonary edema and bilateral pleural effusions persist. 2. Left basilar densities are also unchanged and therefore favor atelectasis from the pleural effusio n. ACT 112: Negative or not required by law. Electronically signed by: Edgar Meek M.D. 04/17/2023 1:07 PM
[2023-04-17 13:25] LABS: T4 Free Thyroxine 1.25 ng/dl (0.61-1.60)
[2023-04-17] MEDS ORDERED: ALBUT/IPRATROP 3MG/0.5MG NEB 3 ML VIAL NEB STA (13:41)
[2023-04-17] MEDS ORDERED: BUMETANIDE 1 MG TAB PO ONE (14:34)
[2023-04-17 15:55] LABS: Adenovirus PCR Not Detected (NotDetected); Bordetella parapertussis PCR Not Detected (NotDetected); Bordetella pertussis PCR Not Detected (NotDetected); Chlamydia pneumoniae PCR Not Detected (NotDetected); Coronavirus 229E PCR Not Detected (NotDetected); Coronavirus CoV-2 (COVID19)PCR Not Detected (NotDetected); Coronavirus HKU1 PCR Not Detected (NotDetected); Coronavirus NL63 PCR Not Detected (NotDetected); Coronavirus OC43PCR Not Detected (NotDetected); Human Metapneumovirus PCR Not Detected (NotDetected); Influenza A PCR Not Detected (NotDetected); Influenza B PCR Not Detected (NotDetected); Mycoplasma pneumoniae PCR Not Detected (NotDetected); Parainfluenza Virus 1 PCR Not Detected (NotDetected); Parainfluenza Virus 2 PCR Not Detected (NotDetected); Parainfluenza Virus 3 PCR Not Detected (NotDetected); Parainfluenza Virus 4 PCR Not Detected (NotDetected); Respiratory Syncytial VirusPCR Not Detected (NotDetected); Rhinovirus/Enterovirus PCR Not Detected (NotDetected)
--- NOTE | 2023-04-17 16:46 | Ultrasound Report ---
BILATERAL LOWER EXTREMITY VENOUS DOPPLER HISTORY: Bilateral lower extremity pain. sob, edema COMPARISON STUDY: None. FINDINGS: There is normal compressibility, flow, and augmentation within the bilateral lower extremit y deep venous systems. IMPRESSION: No DVT within the right or left lower extremity. ACT 112: Negative or not required by law. Electronically signed by: Edgar Meek M.D. 04/17/2023 4:45 PM
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
[2023-04-17] MEDS ORDERED: LOSARTAN POTASSIUM 50 MG TAB PO STA (20:08)
[2023-04-17] MEDS ORDERED: METOPROLOL SUCC 50MG EXT REL TAB PO STA (20:08)
[2023-04-17] MEDS ORDERED: DEXTROSE 50% 50 ML SYRINGE IV PRN (21:52)
[2023-04-17] MEDS ORDERED: GLUCOSE 40% GEL 15 GM TUBE PO PRN (21:52)
[2023-04-17] MEDS ORDERED: ONDANSETRON INJ 2 MG/ML 2 ML VIAL IV PRN (21:52)
[2023-04-17] MEDS ORDERED: CARBOHYDRATES FOR HYPOGLYCEMIA PO PRN (21:52)
[2023-04-17] MEDS ORDERED: GLUCAGON FOR INJ 1 MG VIAL SQ PRN (21:52)
[2023-04-17] MEDS ORDERED: ACETAMINOPHEN 500 MG TAB PO PRN (21:52)
[2023-04-17] MEDS ORDERED: GLUCOSE 10 TAB/TUBE PO PRN (21:52)
[2023-04-17] MEDS ORDERED: hydrOXYzine HCl 25 MG TAB PO STA (22:59)
[2023-04-17] MEDS ORDERED: cloNIDine HCL 0.1 MG TAB PO ONE (22:59)
[2023-04-17] MEDS: INSULIN ASPART PER UNIT CHARGE SC SCH (23:14)
[2023-04-17] MEDS: LANTUS PER UNIT CHARGE SQ SCH (23:15)
[2023-04-17] MEDS: ALBUT/IPRATROP 3MG/0.5MG NEB 3 ML VIAL NEB PRN (23:45)
[2023-04-18] MEDS: LEVOTHYROXINE SODIUM 150 MCG TABLET PO SCH (05:31)
[2023-04-18 07:05] LABS: Hematocrit (blood only) 29.6 % (37.0-47.0); Hemoglobin 9.4 g/dl (12.0-16.0); Mean Corpuscular Hgb Conc 31.8 g/dL (32.0-36.0); Mean Corpuscular Volume 88.1 fL (80.0-100.0); Mean Platelet Volume 10.6 fL (9.4-12.4); Platelet Count 202 K/uL (130-400); RDW Coefficient of Variation 14.6 % (11.5-14.5); RDW Standard Deviation 46.8 fL (36.4-46.3); Red Blood Count 3.36 M/uL (4.20-5.40); White Blood Count 8.75 K/ul (4.8-10.8)
[2023-04-18 07:21] LABS: BUN Creatinine Ratio 22.4 (10-20); Calcium 7.9 mg/dl (8.6-10.3); Creatinine Clr Calc Pharmacy 75.8 ml/min; Est GFR (African American) 88.9 ml/min; Est GFR (Non-African American) 76.7 ml/min; Magnesium 1.8 mg/dl (1.7-2.4); Potassium 3.7 mmol/L (3.5-5.1)
[2023-04-18 07:27] LABS: Troponin I High Sensitivity 20.2 pg/ml (0-14)
[2023-04-18] MEDS: LOSARTAN POTASSIUM 50 MG TAB PO SCH (08:22)
[2023-04-18] MEDS: BUMETANIDE 1 MG TAB PO SCH ×2 (08:22→17:04)
[2023-04-18] MEDS: INSULIN ASPART PER UNIT CHARGE SC SCH ×4 (08:27→20:50)
[2023-04-18] MEDS: LANTUS PER UNIT CHARGE SQ SCH ×2 (08:28→21:00)
[2023-04-18] MEDS ORDERED: BUMETANIDE 1 MG TAB PO SCH (09:00)
[2023-04-18] MEDS ORDERED: BUMETANIDE 2 MG in SYRINGE 0 ML IV SCH (09:00)
[2023-04-18] MEDS ORDERED: METOPROLOL SUCC 50MG EXT REL TAB PO SCH (09:00)
[2023-04-18] MEDS: ALBUT/IPRATROP 3MG/0.5MG NEB 3 ML VIAL NEB PRN (11:23)
[2023-04-18] MEDS ORDERED: METOPROLOL SUCC 25MG EXT REL TAB PO STA (15:36)
--- NOTE | 2023-04-18 16:27 | XCELERA ---
[id number]\[id number]
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
[2023-04-19] MEDS: ALBUT/IPRATROP 3MG/0.5MG NEB 3 ML VIAL NEB PRN ×2 (00:10→11:34)
[2023-04-19] MEDS: LEVOTHYROXINE SODIUM 150 MCG TABLET PO SCH (06:32)
[2023-04-19 08:43] LABS: BUN Creatinine Ratio 24.3 (10-20); Creatinine Clr Calc Pharmacy 82.6 ml/min; Est GFR (African American) 98.2 ml/min; Est GFR (Non-African American) 84.8 ml/min; Potassium 3.5 mmol/L (3.5-5.1)
[2023-04-19] MEDS: BUMETANIDE 2 MG in SYRINGE 0 ML IV SCH ×2 (08:46→16:27)
[2023-04-19] MEDS: LOSARTAN POTASSIUM 50 MG TAB PO SCH (08:46)
[2023-04-19] MEDS: METOPROLOL SUCC 25MG EXT REL TAB PO SCH (08:46)
[2023-04-19] MEDS: APIXABAN 2.5 MG TAB PO SCH ×3 (08:46→20:20)
[2023-04-19] MEDS: LANTUS PER UNIT CHARGE SQ SCH ×2 (08:54→20:24)
[2023-04-19] MEDS: INSULIN ASPART PER UNIT CHARGE SC SCH ×4 (08:55→20:24)
[2023-04-19] MEDS ORDERED: SPIRONOLACTONE 12.5 MG TAB PO ONE (12:31)
--- NOTE | 2023-04-19 15:53 | Palliative Care Consultation ---
Date of Consultation April 19, 2023 Assessment & Plan (1) Palliative care by specialist: Met with pt/family - dtr Irish at bedside. I provided overview of Palliative Medicine, a subspecialty that provides specialized medical care for people living with a serious illness by offering a focus on quality of life. Palliative Medicine is often conflated with hospice: I advised patient/family that Palliative and hospice can be partners but we are not the same. It is important to understand the difference so that we may be informed, and not afraid. Palliative Medicine works to improve QOL through reduction of symptom burden/more control over their illness, for both the patient and family. Palliative medicine clinicians are board certified, specially-trained and another member of the patient's medical care team. We often provide an extra layer of support because our care is based on the needs of the patient, not the prognosis; as such, it's appropriate at any age/advancing stage of a serious illness and can be provided along with curative treatment. Palliative Medicine clinicians are also trained in advanced communication methodologies, to facilitate complex discussions about advanced illness planning, which are needed to help assure that the treatment choices match the patient's goals, aka delivering Goal Concordant care. Finally, we discussed that hospice is a visiting nurse service that focuses on care delivered at the very end of life for patients with terminal illness, with life expectancy less than 6 month. (2) Advanced care planning/counseling discussion: face to face discussion with pt and dtr Irish x 60min at bedside: I met with Carli and her dtr Irish at bedside. Her insight into her HF is limited; she is a bit tangential and repeats stories - I am concerned she may have ?cognitive impact from her trauma/brain injury. I'd like to conduct a MoCA on her when she is less acute. Our lengthy and detailed discussion covered a huge range of issues: symptoms, home support, to code status (we reviewed cpr survival data and when i asked her where does she see herself at the end of her life, she replied "at home and with my family, not dying here or in a correction" so I said that was more aligned with DNR/DNI to allow a natural . We reviewed CPR survival: Only about 10% of patients who have [id number] sudden cardiac arrest survive to hospital discharge, with many survivors having neurologic impairment. This rate is even lower among patients with serious coexisting conditions, ie chance of survival to hospital discharge for in-hospital CPR in older people is low to moderate (15%) and decreases with age, comorbidities, performance status and frailty: for pts > 70 yo, more than half of the patients who initially survived resuscitation in the hospital before hospital discharge. The pooled survival to discharge after in-hospital CPR was 18% for patients between 70 and 79 years old, 15% for patients between 80 and 89 years old and 11% for patients of 90 years and older. (Alexis OCONNELL, Paxton LJ, Miriam F, et al. Trends in short- and long-term survival among [id number] cardiac arrest patients alive at hospital arrival. Circulation 2014;130:3769-6742. AND Jeremías C, Kristin T, Deandre R, et al. Performance of clinical risk scores to predict mortality and neurological outcome in cardiac arrest patients. Resuscitation 2019;136:21-29.) At her request we spoke about hospice. She shared with me that she had used hos pice for her mother who had advanced dementia. Her mother was on hospice for several years. I told her hospice might be quite useful to her rolo since she identifies top goals to be: #1 staying in her own home/never going to correction d/t prior bad experience with her father; #2 having support with med mgt and ADLs as needed, #3 having someone to call who can come see her at home if she feels acute changes etc. We discussed the goals of hospice as a patient service and the goals of care; we discussed EOL trajectories and transitions rolo the emotional impact of realizing mortality as a concrete reality from prior abstract considerations. Pt was reassured that no matter where they are along this trajectory, they are not alone - their medical team will remain by their side through their journey. Discussed the pros/cons of accepting help when especially weakened and distressed by pain-which would also help provide relief/decrease caregiver burden/strain. I provided education about the hospice benefit: an interdisciplinary program offered by nurses, nurses aides, social workers, chaplains and a medical health researcher for patients with a terminal condition and a life expectancy of less th an 6 months. This is covered by Medicare at 100%/no out of pocket expense to patient and all meds/supplies needed by patient for the reason they are on hospice are paid for/covered by hospice. The goal is assure quality of life of the patient in their home setting (home, correction, inpatient hospice setting) by providing symptoms management, psychosocial and spiritual support. However, they cannot offer 24 hours care and if the family is unable to provide that care, they will have to consider personal care with out of pocket cost vs. correction placement. We discussed the goals of hospice as a patient service and the goals of care; we discussed EOL trajectories and transitions rolo the emotional impact of realizing mortality as a concrete reality from prior abs tract considerations. Pt was reassured that no matter where they are along this trajectory, they are not alone - their medical team will remain by their side through their journey. Discussed the pros/cons of accepting help when especially weakened and distressed by pain-which would also help provide relief/decrease caregiver burden/strain. She and dtr were in agreement for hospice but dtr noted the sons x2 are engineers with very different mindsets i.e. "do everything it can always be fixed/will get better." I advised patient and her daughter that I will be away the remainder of this week, returning next Wednesday. I offered to be available next week for a zoom based family conference if this would be of help to them. She and daughter stated that they would discuss with the remainder of the family and contact me if needed. Patient states that she would be very interested in enrolling in hospice to have more in-home support and resources. She repeatedly states frustration at not having known that this could be an option for her sooner. She states that it is very expensive to find private caregiver support. Currently, 2 teenage neighbors assist her with her outdoor yard work, gardening, and small tasks around the house such as bringing her groceries in. She occasionally has drivers to bring her to and from medical appointments but states that this has become very expensive, sometimes up to $90 at a time. Although she does repeatedly mentions that her used to be the chief contract officer of [employer] until his but also she does not directly talk about any specific or significant financial duress, it is noted that she references the cost of the help she has had to obtain to date. She also notes that obtaining private helps or caregivers in her region is significantly limited [place]. She tells me she is still able to drive even though she is in a wheelchair, and she has assistive mechanisms on her vehicle to access her wheelchair however she has trouble getting out of her car and walking to the back to get into her wheelchair. She tells me she has significant visual issues, cannot read med instructions, pill bottles, or even the business card I provided her with my contact information on today. It is curious to note that despite this reported visual defect, she continues to drive. She tells me that she was tested for safety operating a motor vehicle and passed. Carli asked very specific question about an anticipated prognosis. I advised her that we do not have all the current information that we could have to better assist in calculating her prognosis. I did advise her that in general, when we see patients with advancing heart (her EF is dropping ) and lung problems (pulm fxn shows signif obstrxn) begin to have more struggles, have medications and no longer works effectively for them or that they are unable to tolerate, have growing weakness, debility, or further impairments in their mobility/activities of daily living and/or need for personal assistance to manage their day-to-day living, these could be signs that their diseases are progressing into a more advanced stages: We reviewed the nature of COPD: a disease state characterized by airflow limitation that is not fully reversible. The airflow limitation is usually progressive and COPD is incurable/will worsen over time. Medications become less effective and do not work as well; in general, patients experience a significant decline in QOL. Patients with COPD constitute a large group of symptomatic patients with a common, chronic, and generally progressive respiratory disorder. We discussed that Palliative care can begin when a patient becomes symptomatic and is usually concurrent with restorative and life-prolonging care. Palliative care is titrated, analogous to curative/restorative care, to meet the needs of the patient and family in accord with their preferences. I also reviewed accurate prognostication is virtually impossible in HF. While this uncertainty is frustrating for providers, it provides a basis for initiating end-of-life discussions. The [place] [employer] released a scientific statement to help clinicians best guide our patients: Initiate yearly heart failure reviews or advance care planning discussions. Utilize a HF hospitalization (which triples one-year mortality) as a bridge to either optimizing medical therapy or palliative care. Educate patients and families about the unpredictable, but usually terminal nature of HF, and the ever present danger of sudden cardiac (even when feeling well). Ascertain specific goals of care (e.g. quality of life vs. length of life, living/dying at home vs. hospital) Assess options for achieving these goals (e.g. initiating/handling device therapies including when and how to deactivate, hospice vs. serial hospital/critical care unit admissions). Assess resuscitation preferences at every hospitalizations and with declines in performance status. A free advance care planning packet for HF patients is available through the Heart Failure Society of [place] website at: http://www.hfsa.org/pdf/module9.pdf HF Risk Acute Decompensated Heart Failure National Registry (ADHERE) risk model (systolic blood pressure <=115 mmHg; BUN >=43 mg/dL; and serum [id number] >=2.75 mg/dL) HF Triggers: I have bolded what applies to Carli at present time 1. Symptomatic in spite of optimal therapy (diuretics, ACEi, b vero, nitrates, digoxin, opioids, biventricular pacemaker) 2. Repeated hospital admissions 3. Intractable hypotension 4. Renal failure 5. Intractable hyponatremia 6. Cardiac cachexia 7. Cognitive impairment 8. Atrial fibrillation 9. Increasing frailty and dependence. (3) Discussion about advance care planning held with family member: See #2 above We also discussed advance care planning documentation. Patient and her daughter share that she has not completed advanced directive, the copy of which is with her daughter. We discussed the addition of completing a [place] order for life-sustaining therapy or POLST form. I reviewed with them the elements of a POLST form, its utility in advanced stage illness care planning, and the importance of having her documented wishes on a POLST which would be a medical order that could be followed across settings anywhere in the [facility]. 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 CM to assist. * Pt refuses rehab or SNF. She may benefit from pursuing more private caregiving support via either a live-in caregiver or someone who could be with her for substantial portion of her day. * Carli struggles with medication management and the effects of escalated diuretic therapy. She is unable to tolerate higher diuretic doses at home because she cannot get to the bathroom fast enough. She does not have help during the day who can facilitate toileting assistance. She does not want an indwelling catheter. She is frustrated that her medications do not help her more maximally at the dose that she would prefer to take. She is also not interested in pursuing more aggressive interventions or testing. Alternately, she states that she wants help for her heart failure. She repeatedly references her brother who she states almost immediately after his cardiac stress test (she states he in the elevator when going home after the test.) * Family meeting offered by Zoom when all 3 kids can attend next week as OP if needed * Patient with some signs concerning for cognitive impairment - repeats the same stories, avoid / deflects difficult topics and will often become tangential. I can check a MoCA on her once she is through this acute admission. * She may not be safe for home terminal operations supervisor unless she / family hire personal live in caregivers. Patient did not indicate any major financial concerns and until now has been able to hire and pay for private help as needed. * I have offered outpatient follow up. She will consider but feels it may be too much to ask of her given her physical limitations and lack of a reliable driver education instructor. I also offered her telemedicine follow-up with me but she reports that she is unable to use facilitated technology. * Please note: the above document was generated using voice recognition software. It may contain unintentional grammatical, syntax or spelling errors. Any formal questions or concerns about the content, text or inf ormation contained within the body of this dictation should be directly addressed to the provider for clarification. Thank you for allowing us to participate in the ongoing care of this patient. Please don't hesitate to call or page with any additional concerns. Dr. Shantel Antunez DNP Director, Palliative Care History of Present Illness Reason for Consultation: [facility] symptom mgt Attending Physician: Yaw Silver History of Present Illness Carli is a 77-year-old female with worsening heart failure, diabetes, COPD with significant obstructive defect noted on recent PFTs, oxygen dependent, impaired mobility, hip fracture with medical management/nonoperative, and prior history of traumatic fall with? Neurocognitive injury, coma, prolonged recovery with rehabilitation at home. She presented to the hospital after approximately 5 days of worsening shortness of breath. She is followed by the heart failure clinic. She admits to significant struggles managing her medications, tolerating her medication regimen/questionable adherence, inability to tolerate higher dose diuretic therapy at home due to issues being able to reach her bathroom in time with her impaired mobility. She has had trouble obtaining her meds on time, making adjusted changes, and has a significant impairment in her vision which she states was due to have surgical correction however she has been declined 3 times to date due to very high operative risk by anesthesia. She has not pursued eye surgery at a larger academic center. She is at baseline in a wheelchair. She states that she is at this point almost legally blind and cannot read the directions on her medication bottles, business cards, check out directions or discharge summaries. She will at times use a large magnifying glass to assist her with reading information but finds this to be onerous and does not find it sustainable overall long-term. As a result, she is often not able to keep up with medication changes and was recently advised to consider having her medications ordered and organized into blister packs so she would not have to sort through them herself. Echocardiogram this admission demonstrates a reduced ejection fraction of approximately 35%, severe global hypokinesis, severe LVH, mild to moderate pulmonary hypertension with estimated PA systolic 38. Pulmonary function testing reveals a significant obstructive defect. Due to her hip fracture with no operative intervention, prolonged history of impaired mobility and wheelchair dependence, exercise oximetry testing was not able to be performed. She has never been to a pulmonary rehab program. Patient lives alone in a private home near the [facility]. She shares that her was the former chief contract officer of [employer] until his 6 years ago from an aggressive and widely metastatic prostate cancer. She states that that was a terrible loss in her life as he was devoted caregiver for her. She has been trying to manage on her own since then. She has 3 adult children all of whom live out of state including [place] and [place]. She tells me that she is close with her daughter, Irish, but tries not to "burden the children with too many details about my medical problems because they have their own lives." Allergies Allergy/AdvReac Type Severity Reaction Status Date / Time aspirin Allergy Severe HIVES; Verified 04/17/23 19:35 DIFFICULTY BREATHING colchicine Allergy Severe Difficulty Verified 04/17/23 19:35 Breathing Iodinated Contrast Media Allergy Intermediate Rash Verified 04/17/23 19:35 aspartame Allergy Unknown Unknown Verified 04/17/23 19:35 Benzodiazepines Allergy Unknown Unknown Verified 04/17/23 19:35 diltiazem Allergy Unknown UNKNOWN Verified 04/17/23 19:35 REACTION doxycycline Allergy Unknown Unknown Verified 04/17/23 19:35 melon Allergy Unknown Unknown Verified 04/17/23 19:35 nifedipine Allergy Unknown UNKNOWN Verified 04/17/23 19:35 REACTION simvastatin Allergy Unknown UNKNOWN Verified 04/17/23 19:35 REACTION PER PT sucralose Allergy Unknown Unknown Verified 04/17/23 19:35 vancomycin Allergy Unknown UNKNOWN Verified 04/17/23 19:35 REACTION Home Medications Medication Instructions Recorded Confirmed Type Spacer for Inhaler #1 ea 09/04/22 04/17/23 Rx blood sugar diagnostic (OneTouch #100 ea 12/17/22 04/17/23 Rx Verio test strips) pen needle, diabetic 32 gauge x #50 ea 12/17/22 04/17/23 Rx 1/4" (BD Ultra-Fine Micro Pen Needle) acetaminophen 500 mg tablet 1,000 mg PO Q8H PRN Pain 01/27/23 04/17/23 History (Tylenol Extra Strength) insulin detemir U-100 100 unit/mL 30 unit subcut QAM 01/27/23 04/17/23 History (3 mL) subcutaneous pen losartan 50 mg tablet 100 mg PO QAM #180 tabs 02/03/23 04/17/23 Rx albuterol sulfate 90 mcg/actuation 2 puff inhalation Q4H PRN 03/14/23 04/17/23 Rx aerosol inhaler cough/wheeze/shortness of breath #18 grams albuterol sulfate 2.5 mg/0.5 mL 2.5 mg (0.5 mL) inhalation Q4H PRN 03/28/23 04/17/23 Rx solution for nebulization shortness of breath or wheezing or cough #1 box metoprolol succinate 50 mg 50 mg PO DAILY #30 tabs 03/28/23 04/17/23 Rx tablet,extended release 24 hr bumetanide 2 mg tablet 2 mg PO DAILY #30 tabs 04/05/23 04/17/23 Rx potassium chloride 20 mEq oral 20 meq PO DAILY 30 days #30 ea 04/05/23 04/17/23 Rx packet levothyroxine 150 mcg tablet 150 mcg PO DAILYBB #90 tabs 04/06/23 04/17/23 Rx triamcinolone acetonide 0.1 % 1 applic EXT BID PRN .flare ups 04/17/23 04/17/23 History topical cream Patient History Medical History (HFpEF) heart failure with preserved ejection fraction Acute and chronic respiratory failure with hypoxia Acute diastolic (congestive) heart failure HX Acute on chronic heart failure with preserved ejection fraction (HFpEF) Acute UTI Advanced care planning/counseling discussion Ambulatory dysfunction Asthma Chest pain hx-"more pleuritic pain, not cardiac related" CHF exacerbation HX-RECENTLY Chronic edema Chronic respiratory failure with hypoxia, on home O2 therapy O2 prn at 2L COPD (chronic obstructive pulmonary disease) Diabetes mellitus Diabetes mellitus with albuminuria Diastolic heart failure HX Discussion about advance care planning held with family member Dyslipidemia Elevated serum globulin level Encounter for hospice care discussion Financial difficulties Gait abnormality History of ectopic History of seizures as a child HTN (hypertension) HTN (hypertension) Hx of papillary thyroid carcinoma Hx of pleurisy Hx of thyroid cancer Hydronephrosis, bilateral Hypertension Hypokalemia Hypomagnesemia Hypothyroidism Hypothyroidism, postablative Lower extremity edema Lymphedema Multiple drug allergies Obstructive pattern present on pulmonary function testing Palliative care by specialist Pleurisy without effusion have been hospitalized 4x in the past year for this Pleuritic chest pain 4x in the past year Renal cyst, left 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 Vitamin D deficiency Wheelchair bound Surgical History History of D&C Hx of brain surgery 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 during the procedure Hx of section Hx of thyroidectomy Family History Father Stroke Mother Dementia Diabetes Sister Macular degeneration Brother Macular degeneration Other TIA (transient ischemic attack) Denies family history of Ovarian cancer Prostate cancer Myocardial infarction Breast cancer Colorectal cancer Social History Smoking Status: Never smoker Second Hand Exposure: No; Do You Dip or Chew Tobacco: No; Hx Alcohol Use: No Hx Substance Use: No Preferred Language: Cuban Communication Ability: Effective Visual Impairment: No Limitations Hearing Ability: Normal Robot Designer Required: No Beliefs That Will Affect Care: Worship Worship Beliefs: 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, including RN/ADOLESCENT SPECIALIST marital status: / Current Living Situation: Spouse Current Living Situation Comment: Lives at home alone current occupational status: retired 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 There is no bitemporal wasting. Pupils are equal, round and reactive to light. Extraocular movements are intact. Dentition intact. Mucosa pink, no ulcers or lesions noted. Chest with bilateral crackles throughout from the mid upper to lower regions, diminished lung sounds, mild increased respiratory effort, mild to moderate conversational dyspnea noted. Heart tones S1, S2. There are some JVD noted when semireclined. Abdomen is soft, nontender to palpation. Upper extremity strength is intact but there is a generalized weakness throughout. Profound bilateral lower extremity edema, + venous insufficiency changes, + pitting 3-4+ edema, + erythema, + warmth, + some areas of the skin with scaling patches. She is awake and alert to person place and time. She can follow simple command s. She is however also noted to be tangential and will repeat stories about her life repeatedly throughout this visit. There is a lot of wishful thinking and some deflection noticed when difficult topics are attempted to be discussed. Skin is pale but warm to touch. There is no gross cyanosis noted. During my visit with patient, she began to complain of more dyspnea. Immediate set of vitals noted an SPO2 of 96% on 2 L. She continued to complain of subjective dyspnea. Respiratory therapy was paged and nebulizer treatment was given with good relief. On exam at the time of her acute complaints, she had crackles from the mid to lower lung brooke and overall diminished lung sounds. There was no wheezing. Results & Data Vital Signs (Past 12 Hours) Vital Signs Temp Pulse Pulse Resp BP Pulse Ox O2 Del Method 04/19/23 15:36 79 04/19/23 15:01 36.9 C 78 20 185/80 H 93 Nasal Cannula 04/19/23 11:34 74 16 97 Nasal Cannula 04/19/23 11:31 36.6 C 77 20 191/94 H 97 Nasal Cannula 04/19/23 09:23 Nasal Cannula 04/19/23 07:34 37.1 C 77 18 182/78 H 94 Nasal Cannula 04/19/23 07:17 80 04/19/23 05:02 36.8 C 85 18 184/83 H 93 Nasal Cannula O2 Flow Rate 04/19/23 15:36 04/19/23 15:01 2 04/19/23 11:34 3 04/19/23 11:31 3 04/19/23 09:23 2 04/19/23 07:34 2 04/19/23 07:17 04/19/23 05:02 2 Laboratory Results data reviewed Diagnostic Findings data reviewed PG Care Time/CCT Total # of Minutes Spent Total Time Spent: 120 Total Time Spent with Patient: Total time spent is greater than 50% in coordination of care (as documented) at patient's floor/unit and/or counseling patient: 60min ACOP 20min chart review, discussion with primary & cardiology team 30min with pt/resp distress event 10 min updating teams, nursing, J Illig/cardiology. Advanced Care Planning 57779 Advanced Care Planning 30 Min 28557 Advanced Care Planning Additional 30 [place] [address] IN/OBS CONSULT LVL 5,80M Patient Type New Medical Decision Making High Complexity Diagnoses Palliative care by specialist Z51.5 Advanced care planning/counseling discussion Z71.89 Discussion about advance care planning held with family member Z71.0 Encounter for hospice care discussion Z71.89 Ambulatory dysfunction R26.2 Acute HFrEF (heart failure with reduced ejection fraction) I50.21 COPD (chronic obstructive pulmonary disease) J44.9 Chest pain R07.9 Chronic respiratory failure with hypoxia, on home O2 therapy J96.11; Z99.81 Obstructive lung disease J44.9 Venous stasis dermatitis of both lower extremities I87.2 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
--- NOTE | 2023-04-19 19:18 | Cardiology Consultation ---
Date of Consultation April 19, 2023 Assessment & Plan (1) Acute HFrEF (heart failure with reduced ejection fraction): (2) Elevated troponin: (3) COPD (chronic obstructive pulmonary disease): (4) Chronic respiratory failure with hypoxia, on home O2 therapy: (5) Hypertension: (6) Dyslipidemia: (7) Cardiomyopathy: (8) Pulmonary hypertension: (9) Pericardial effusion: (10) Atypical chest pain: Plan ASSESSMENT/PLAN: 1. Heart failure with reduced EF: She does not appear to be significantly hypervolemic currently. She has diuresed net -2.7 L this hospital stay. Can continue Bumex (she refuses afternoon/evening dose) but would reduce diuretic if evidence of azotemia. Start spironolactone, which she refused this afternoon but is willing to take in the morning. Replace ARB with Entresto, to start tomorrow. She is willing to start medications which may improve her quality of life but wants to start them while hospitalized in case of any adverse reaction. She has tolerated spironolactone in the past so for now, new medication Entresto, to avoid multiple changes if she should have adverse reaction. She follows in the heart failure program. 2. Cardiomyopathy: Etiology uncertain. We discussed ischemic evaluation such as cardiac catheterization. Risks and benefits were discussed with her in detail. She declines for now but is willing to consider. She wishes to pursue medical therapy rather than invasive measures. Given severe LVH, immunofixation ordered. Does not qualify for ICD for primary prevention at this time. Optimize medical therapy as above. 3. Hypertension: Blood pressure severely elevated. This could be playing a role in her atypical chest pain, elevated troponins, and perhaps her cardiomyopathy. ARB replaced by Entresto for tomorrow. Titrate medical therapy to improve blood pressure. 4. Elevated troponin: She did not present with acute coronary syndrome. Plan as above. She declines ischemic evaluation for now. 5. Dyslipidemia: Has not tolerated simvastatin in the past and she reports many allergies. If she is found to have CAD in the future, would recommend high intensity statin therapy but for now, will further adjust her cardiomyopathy/heart failure medications. 6. Chronic respiratory failure with hypoxia: Has severely abnormal PFTs, suggestive of severe COPD. Consider pulmonology evaluation at some point to optimize her medical therapy to improve her quality of life. Continue to optimize heart failure medications. 7. Pulmonary hypertension: Has severe COPD. Heart failure with reduced EF, although does not appear hypervolemic currently. Also discussed the role of right heart catheterization, which may help guide future therapies. She declines for now. 8. Atypical chest pain: Improved with nebulizer treatments. Has had left and right sided chest pain. May be related to hypertension or other cause. Does not appear to be consistent with angina. 9. Pericardial effusion: Small. Can be monitored in the future with repeat echo. No suggestion of tamponade physiology. 10. Disposition: Cardiology will continue to follow. Recommend that she continue to follow-up with the palliative care. Continue heart failure program. Care communicated with Dr. Silver of the primary hospitalist service. Care discussed with Alma Dasilva of the heart failure program. Highly complex medical issues. Thank you for allowing me to participate in the care of your patient. Please call for any other questions or concerns. Sincerely, Keith Mendez M.D. History of Present Illness Reason for Consultation: CHF Requesting Physician: Dr. Guerra Attending Physician: Yaw Silver History of Present Illness Ms. Logan is a pleasant 77-year-old female with a history significant for severe COPD, type 2 diabetes, hypertension, thyroid cancer status post re section, craniotomy for CSF leak in approximately 2009, lymphedema, and cardiomyopathy diagnosed in April 2023. She has been followed in the heart failure program by Alma Dasilva. Edema has been largely felt to be secondary to lymphedema and she has had dyspnea, which was felt to be related to COPD. She was admitted on 04/17/2023 with dyspnea. She states that 1 week ago, she felt very short of breath. 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 She has supplemental oxygen to use as needed, but she does not use it consistently throughout the day. When she went home that day she felt even more short of breath. She was seen by Alma Dasilva on 04/12/2023. She admits that she had been prescribed 1 mg of Bumex, which was later increased to 2 mg but she noted increased urine output, which impacts her quality of life as she enjoys gardening and has difficulty getting around as she is wheelchair- bound. Bumex was then increased to 3 mg daily but she became incontinent. She did not notice any significant improvement in her swelling or breathing and therefore she reduce Bumex to 1 mg on her own accord. She maintains a low- sodium diet. She is unable to weigh herself. On 04/17/2023, she developed left chest discomfort beneath her left breast which felt like a constricting or tugging sensation. She then developed the same discomfort beneath her right breast, even while hospitalized. She felt like it had more to do with her breathing. She received nebulizer treatments and on 2 different occasions, the chest discomfort resolved after nebulizers. She admits that her nebulizers significantly improve her breathing. She feels better during this hospital stay compared to presentation but is not yet back to baseline. She sleeps in a recliner for at least the past year secondary to orthopnea. Her son, Yosef, was seated at the bedside and stated that she does not keep her feet completely elevated. She has had lymphedema management in the past but insurance coverage ran out and therefore does not receive any lymphedema treatment. They would come to her home to wrap her legs and she noted some improvement for the time that they spent. She denies syncope, near syncope, palpitations, melena, hematochezia, hematuria, or other bleeding. She acknowledges that she was seen by palliative care prior to cardiology consultation today. She referred to this as "hospice." When asked about this in more detail, her son clarified the difference between hospice and palliative care. She stated that she has not committed to hospice at this time. Review of systems: As above. Review of systems otherwise negative/unremarkable. Family history: Her uncle (when she was 18) immediately following a cardiac catheterization while in an elevator. Her [id number] had complication with ablation and required a pacemaker. These were performed at [facility]. Social history: She denies tobacco, alcohol abuse. She is a . 3 children. She lives alone. Her son, Yosef, was seated at the bedside. Allergies Allergy/AdvReac Type Severity Reaction Status Date / Time aspirin Allergy Severe HIVES; Verified 04/17/23 19:35 DIFFICULTY BREATHING colchicine Allergy Severe Difficulty Verified 04/17/23 19:35 Breathing Iodinated Contrast Media Allergy Intermediate Rash Verified 04/17/23 19:35 aspartame Allergy Unknown Unknown Verified 04/17/23 19:35 Benzodiazepines Allergy Unknown Unknown Verified 04/17/23 19:35 diltiazem Allergy Unknown UNKNOWN Verified 04/17/23 19:35 REACTION doxycycline Allergy Unknown Unknown Verified 04/17/23 19:35 melon Allergy Unknown Unknown Verified 04/17/23 19:35 nifedipine Allergy Unknown UNKNOWN Verified 04/17/23 19:35 REACTION simvastatin Allergy Unknown UNKNOWN Verified 04/17/23 19:35 REACTION PER PT sucralose Allergy Unknown Unknown Verified 04/17/23 19:35 vancomycin Allergy Unknown UNKNOWN Verified 04/17/23 19:35 REACTION Home Medications Medication Instructions Recorded Confirmed Type Spacer for Inhaler #1 ea 09/04/22 04/17/23 Rx blood sugar diagnostic (OneTouch #100 ea 12/17/22 04/17/23 Rx Verio test strips) pen needle, diabetic 32 gauge x #50 ea 12/17/22 04/17/23 Rx 1/4" (BD Ultra-Fine Micro Pen Needle) acetaminophen 500 mg tablet 1,000 mg PO Q8H PRN Pain 01/27/23 04/17/23 History (Tylenol Extra Strength) insulin detemir U-100 100 unit/mL 30 unit subcut QAM 01/27/23 04/17/23 History (3 mL) subcutaneous pen losartan 50 mg tablet 100 mg PO QAM #180 tabs 02/03/23 04/17/23 Rx albuterol sulfate 90 mcg/actuation 2 puff inhalation Q4H PRN 03/14/23 04/17/23 Rx aerosol inhaler cough/wheeze/shortness of breath #18 grams albuterol sulfate 2.5 mg/0.5 mL 2.5 mg (0.5 mL) inhalation Q4H PRN 03/28/23 04/17/23 Rx solution for nebulization shortness of breath or wheezing or cough #1 box metoprolol succinate 50 mg 50 mg PO DAILY #30 tabs 03/28/23 04/17/23 Rx tablet,extended release 24 hr bumetanide 2 mg tablet 2 mg PO DAILY #30 tabs 04/05/23 04/17/23 Rx potassium chloride 20 mEq oral 20 meq PO DAILY 30 days #30 ea 04/05/23 04/17/23 Rx packet levothyroxine 150 mcg tablet 150 mcg PO DAILYBB #90 tabs 04/06/23 04/17/23 Rx triamcinolone acetonide 0.1 % 1 applic EXT BID PRN .flare ups 04/17/23 04/17/23 History topical cream Patient History Medical History (HFpEF) heart failure with preserved ejection fraction Acute and chronic respiratory failure with hypoxia Acute diastolic (congestive) heart failure HX Acute on chronic heart failure with preserved ejection fraction (HFpEF) Acute UTI Advanced care planning/counseling discussion Ambulatory dysfunction Asthma Chest pain hx-"more pleuritic pain, not cardiac related" CHF exacerbation HX-RECENTLY Chronic edema Chronic respiratory failure with hypoxia, on home O2 therapy O2 prn at 2L COPD (chronic obstructive pulmonary disease) Diabetes mellitus Diabetes mellitus with albuminuria Diastolic heart failure HX Discussion about advance care planning held with family member Dyslipidemia Elevated serum globulin level Encounter for hospice care discussion Financial difficulties Gait abnormality History of ectopic History of seizures as a child HTN (hypertension) HTN (hypertension) Hx of papillary thyroid carcinoma Hx of pleurisy Hx of thyroid cancer Hydronephrosis, bilateral Hypertension Hypokalemia Hypomagnesemia Hypothyroidism Hypothyroidism, postablative Lower extremity edema Lymphedema Multiple drug allergies Obstructive pattern present on pulmonary function testing Palliative care by specialist Pleurisy without effusion have been hospitalized 4x in the past year for this Pleuritic chest pain 4x in the past year Renal cyst, left 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 Vitamin D deficiency Wheelchair bound Surgical History History of D&C Hx of brain surgery 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 during the procedure Hx of section Hx of thyroidectomy Family History Father Stroke Mother Dementia Diabetes Sister Macular degeneration Brother Macular degeneration Other TIA (transient ischemic attack) Denies family history of Ovarian cancer Prostate cancer Myocardial infarction Breast cancer Colorectal cancer Social History Smoking Status: Never smoker Second Hand Exposure: No; Do You Dip or Chew Tobacco: No; Hx Alcohol Use: No Hx Substance Use: No Preferred Language: Serbian Communication Ability: Effective Visual Impairment: No Limitations Hearing Ability: Normal Counter Pocket Trimmer Required: No Beliefs That Will Affect Care: Nondenominational Nondenominational Beliefs: 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, including RN/DELIVERY MANAGER marital status: / Current Living Situation: Spouse Current Living Situation Comment: Lives at home alone current occupational status: retired 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 Alert. HEENT: Anicteric sclera. Neck: No JVD. No hepatojugular reflux. No bruits. Normal carotid upstrokes bilaterally. Cardiac: No ventricular heave. Regular. Normal S1-S2. No murmurs, rubs, or gallops. Pulmonary: Crackles, specifically left base more so than the right. Decreased breath sounds bilaterally. Abdomen: Soft, nontender, nondistended, with normoactive bowel sounds. No bruits noted. Extremities: 2+ radial pulses bilaterally. 2+ posterior tibialis pulses bilaterally. Evidence of lymphedema bilateral lower extremities with trace pitting edema. No cyanosis. Results & Data Vital Signs (Past 12 Hours) Vital Signs Temp Pulse Pulse Resp BP Pulse Ox O2 Del Method 04/19/23 15:36 79 04/19/23 15:01 36.9 C 78 20 185/80 H 93 Nasal Cannula 04/19/23 11:34 74 16 97 Nasal Cannula 04/19/23 11:31 36.6 C 77 20 191/94 H 97 Nasal Cannula 04/19/23 09:23 Nasal Cannula 04/19/23 07:34 37.1 C 77 18 182/78 H 94 Nasal Cannula 04/19/23 07:17 80 O2 Flow Rate 04/19/23 15:36 04/19/23 15:01 2 04/19/23 11:34 3 04/19/23 11:31 3 04/19/23 09:23 2 04/19/23 07:34 2 04/19/23 07:17 Intake & Output 04/17/23 04/18/23 04/19/23 04/20/23 06:59 06:59 06:59 06:59 Intake Total 584.500 / 698.458 7967 / 1240 360 / 360 Output Total 2450 / 2450 700 / 700 1700 / 1700 Balance -1865.500 / -1865.500 540 / 540 -1340 / -1340 Weight 202 lb 6.15 oz 203 lb 14.841 oz Laboratory Results Laboratory Results - last 24 hr 04/18/23 04/19/23 04/19/23 20:32 07:34 07:49 Sodium 142 Potassium 3.5 Chloride 99 Carbon Dioxide 40 H Anion Gap 3 BUN 17 Creatinine 0.70 Est Cr Clr Drug Dosing 82.6 Est GFR ( Amer) 98.2 Est GFR (Non-Af Amer) 84.8 BUN/Creatinine Ratio 24.3 H Glucose 84 POC Glucose 136 H 90 Calcium 8.0 L 04/19/23 04/19/23 11:47 16:31 Sodium Potassium Chloride Carbon Dioxide Anion Gap BUN Creatinine Est Cr Clr Drug Dosing Est GFR ( Amer) Est GFR (Non-Af Amer) BUN/Creatinine Ratio Glucose POC Glucose 78 140 H Calcium Diagnostic Findings Labs reviewed and notable for very mildly elevated high-sensitivity troponin, peaking at 20. BNP elevated at 356, lower than March and February values. TSH on 04/17/2023 elevated but improved from March. SPEP from 01/12/2022 suggested reactive inflammatory conditions but could not completely exclude clonal B-cell or plasma cell disorder. UPEP 09/18/2021 recommended immunofixation. Renal function remains stable. Hemoglobin reduced. Echo 04/18/2023: Moderately reduced LV systolic function. EF 35 to 40%. Global hypokinesis. Severe concentric LVH. Mild MR. Moderate MAC. Very small pericardial effusion. Pleural effusion. RVSP 38. Compared to 09/03/2022 study, LV systolic function has declined. Telemetry personally reviewed: Sinus rhythm. No arrhythmia. ECG personally reviewed 04/17/2023: Sinus rhythm 92 bpm. Septal infarct. Nonspecific T wave abnormality. Venous Doppler 04/17/2023: No DVT bilaterally. Chest x-ray 04/17/2023: Diffuse interstitial/vascular thickening per radiology. Small left and trace right pleural effusions. Left basilar density. History and physical report reviewed. Palliative care consultation report reviewed. Medications Administered Current Inpatient Medications Acetaminophen (Acetaminophen 500 Mg Tab) 1,000 mg PO Q8H PRN PRN Reason: Pain Stop: 05/17/23 21:51 Last Admin: 04/17/23 23:16 Dose: 1,000 mg Albuterol (Albut/Ipratrop 3mg/0.5mg Neb 3 Ml Vial) 3 ml NEB Q4R PRN; Protocol PRN Reason: sob or wheeze Stop: 05/17/23 21:51 Last Admin: 04/19/23 11:34 Dose: 3 ml Apixaban (Apixaban 2.5 Mg Tab) 2.5 mg PO BID [facility] Stop: 05/19/23 08:59 Last Admin: 04/19/23 10:08 Dose: Not Given Dextrose (Dextrose 50% 50 Ml Syringe) 25 - 50 ml IV UD PRN; Protocol PRN Reason: Hypoglycemia Protocol Stop: 05/17/23 21:51 Glucagon (Glucagon For Inj 1 Mg Vial) 1 mg SQ UD PRN; Protocol PRN Reason: Hypoglycemia Protocol Stop: 05/17/23 21:51 Glucose (Glucose 10 Tab/Tube) 4 - 8 tab PO UD PRN; Protocol PRN Reason: Hypoglycemia Treatment Stop: 05/17/23 21:51 Glucose (Glucose 40% Gel 15 Gm Tube) 15 - 30 gm PO UD PRN; Protocol PRN Reason: Hypoglycemia Protocol Stop: 05/17/23 21:51 Bumetanide 2 mg/ Syringe 8 mls @ 4 mls/min IV BID@0900,1700 [facility] Stop: 05/19/23 08:59 Last Admin: 04/19/23 16:27 Dose: Not Given Insulin Aspart (Insulin Aspart Per Unit Charge) 0 units SC ACHS [facility] Stop: 05/17/23 21:51 Last Admin: 04/19/23 17:02 Dose: Not Given Insulin Glargine (Lantus Per Unit Charge) 12 units SQ BID [facility] Stop: 05/17/23 21:51 Last Admin: 04/19/23 08:54 Dose: 12 units Levothyroxine Sodium (Levothyroxine Sodium 150 Mcg Tablet) 150 mcg PO DAILYBB [facility] Stop: 05/18/23 06:29 Last Admin: 04/19/23 06:32 Dose: 150 mcg Losartan Potassium (Losartan Potassium 50 Mg Tab) 100 mg PO QAM [facility] Stop: 05/18/23 08:59 Last Admin: 04/19/23 08:46 Dose: 100 mg Metoprolol Succinate (Metoprolol Succ 25mg Ext Rel Tab) 75 mg PO DAILY SABINE Stop: 05/19/23 08:59 Last Admin: 04/19/23 08:46 Dose: 75 mg Miscellaneous (Carbohydrates For Hypoglycemia ) 15 - 30 gm PO UD PRN PRN Reason: Hypoglycemia Protocol Stop: 05/17/23 21:51 Ondansetron HCl (Ondansetron Inj 2 Mg/Ml 2 Ml Vial) 4 mg IV Q6H PRN PRN Reason: Nausea Stop: 05/17/23 21:51 Spironolactone (Spironolactone 12.5 Mg Tab) 12.5 mg PO DAILY SABINE Stop: 05/20/23 08:59 PG Care Time/CCT Total # of Minutes Spent Total Time Spent with Patient: Total time spent is greater than 50% in coordination of care (as documented) at patient's floor/unit and/or counseling patient: Coding Level of Care Code 46848 INT INP/OBS CARE 375MIN Diagnoses Acute HFrEF (heart failure with reduced ejection fraction) I50.21 Elevated troponin R77.8 COPD (chronic obstructive pulmonary disease) J44.9 Chronic respiratory failure with hypoxia, on home O2 therapy J96.11; Z99.81 Hypertension I10 Hypertension type: unspecified Dyslipidemia E78.5 Cardiomyopathy I42.9 Pulmonary hypertension I27.20 Pericardial effusion I31.39 Atypical chest pain R07.89 (5) Hypertension Hypertension type: unspecified Qualified Code(s): I10 - Essential (primary) hypertension
--- NOTE | 2023-04-19 22:14 | Electrocardiogram Report ---
Test Reason : Blood Pressure : / mmHG Vent. Rate : 092 BPM Atrial Rate : 092 BPM P-R Int : 160 ms QRS Dur : 088 ms QT Int : 356 ms P-R-T Axes : 064 -15 110 degrees QTc Int : 440 ms Normal sinus rhythm Septal infarct (cited on or before 17-APR-2023) Nonspecific T wave abnormality Abnormal ECG When compared with ECG of 05-MAR-2023 01:02, Inverted T waves have replaced nonspecific T wave abnormality in Anterolateral leads Confirmed by Fady Mendez ([id number]) on 04/19/2023 10:14:35 PM Referred By: REFERRED SELF Confirmed By:Fady Mendez
--- NOTE | 2023-04-19 23:07 | Hospitalist Progress Note ---
Date of Service April 19, 2023 Assessment & Plan (1) Acute HFrEF (heart failure with reduced ejection fraction): Plan: EF on echo today 35-40%; global hypokinesis. Echo 08/2022 with EF 55-60%. Significant change since 2021 echo. Etiology uncertain. With EKG changes (lateral T wave changes), +troponin, chest pain, etc - ischemia? Post-viral? Significant proteinuria - multiple myeloma? Other? Formal consult placed to [facility] Cardiology. Consult placed to Carolee LAO from [facility] CHF clinic who knows patient well. Continue diuresis - bumex 2mg IV BID. Needs better BP control - increase metoprolol succ to 75mg daily; give additional 25mg this afternoon. Will ultimately need transition over from losartan to Entresto - defer to cardiology. Consider aldactone for added BP control + added diuresis. Consider SPEP/UPEP, ferritin level, thiamine level, etc. Left heart cath prior to discharge to r/o ischemia/CAD? Consulted cardio: patient refusing cardiac cath. Patient appears euvolemic. will continue to diurese until creatinine rises. Patient though refusing afternoon doses. Will consider adding aldactone, but patient refused, cardio switched losartan to entresto. Goal is to improve her BP (2) Elevated troponin: Plan: Minimall elevated. Despite symptoms and EKG changes there does not appear to be ACS. Defer on heparin infusion. Peak HS trop = 20. See #1 above. (3) Chest pain: Plan: See #1 above. EKG changes noted - V5 and V6 with inverted T waves; I/AVL with ST flattening. Inferior leads also with ST flattening. EKGs several months ago showed normal T's in anterolateral leads. ST segments were more upright in the limb leads. Echo ordered due to chest pain and EKG changes - EF now 35-40% - had been 55- 60%. See #1 above. Will add low-dose aspirin while awaiting recs from cardiology (L heart cath ultimately ??). Hopefully patient will take such. (4) Bronchiectasis: Plan: as seen on CT chest during prior hospital stay was to see [facility] Pulmonary as outpatient in the next couple of weeks she has obstructive lung disease on PFTs from fall 2021 in addition to bronchiectasis seen on prior CT no bronchiectasis flare at this time (5) Chronic respiratory failure with hypoxia, on home O2 therapy: Plan: multifactorial - obstructive lung disease, bronchiectasis, restriction?, pulm HTN, possibly other factors no PEs on CTA study 11/2022 no prior h/o PEs in the past she also struggles with hypervolemia on day to day basis and thus is always congested due to CHF - this will also contribute to O2 requirement O2 sats stable on 2 L NC O2 (6) Hypothyroidism: Plan: patient has NOT had a normal TSH since early 2019 TSH remains high despite recent dose titration to 150mcg daily noncompliance with synthroid? poor absorption? I had corresponded with Dr Mills from [facility] Endo a few weeks ago re: the abnormal TSH he had suggested that a possible solution could be taking the synthroid sublingually decompensated hypothyroidism will certainly add to her hypervolemia consider formal endo consult while here to address this issue (7) Obstructive lung disease: Plan: as seen on PFTs fall 2021 was to see [facility] Pulmonary in the next 1-2 weeks as outpatient cont bronchodilators despite her obstructive disease no wheezing on exam today (8) Hypercholesterolemia: Plan: does not take any statin or other agent (9) Hypertension: Plan: uncontrolled increase metoprolol succ to 75mg daily cont losartan 100mg daily ultimately will need transition from losartan to Entresto due to #1 defer to cardiology (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 Patient is refusing afternoon doses of diuretics. Review of Systems Review of Systems: All systems reviewed & are unremarkable except as noted in HPI & below Physical Exam Physical Exam: gen - sitting in recliner, NAD, awake, alert neck - JVD present mouth - MMM heart - RRR, s1 s2, 1-2/6 systolic murmur LLSB lungs - b/l basilar rales, Left worse than right; extent of rales are worse than my exams during her previous visit abd - soft, likely ascites and/or body wall edema, BS+, NT ext - 2+ pitting edema extending from feet to the knees; lymphedema appearance to both feet; pulses 2+ b/l skin - hyperpigmentation of b/l shins - chronic psych - a/o x 3 Results & Data Results & Data Vital Signs (Past 12 Hours) Vital Signs Temp Pulse Pulse Resp BP BP Pulse Ox 04/19/23 19:33 37.1 C 76 20 166/73 H 91 04/19/23 15:36 79 04/19/23 15:01 36.9 C 78 20 185/80 H 93 04/19/23 11:34 74 16 97 04/19/23 11:31 36.6 C 77 20 191/94 H 97 O2 Del Method O2 Flow Rate 04/19/23 19:33 Nasal Cannula 3.5 04/19/23 15:36 04/19/23 15:01 Nasal Cannula 2 04/19/23 11:34 Nasal Cannula 3 04/19/23 11:31 Nasal Cannula 3 PG Care Time/CCT Total # of Minutes Spent Total Time Spent with Patient: Total time spent is greater than 50% in coordination of care (as documented) at patient's floor/unit and/or counseling patient: Coding Level of Care Code 83161 SUB INP/OBS CARE 3/50MIN Diagnoses Acute HFrEF (heart failure with reduced ejection fraction) I50.21 Elevated troponin R77.8 Chest pain R07.9 Bronchiectasis J47.9 Chronic respiratory failure with hypoxia, on home O2 therapy J96.11; Z99.81 Hypothyroidism E03.9 Obstructive lung disease J44.9 Hypercholesterolemia E78.00 Hypertension I10 Hypertension type: unspecified Diabetes mellitus with albuminuria E11.29; R80.9 Proteinuria R80.9 DVT prophylaxis Z29.9 (9) Hypertension Hypertension type: unspecified Qualified Code(s): I10 - Essential (primary) hypertension
[2023-04-20] MEDS: LEVOTHYROXINE SODIUM 150 MCG TABLET PO SCH (05:45)
[2023-04-20 07:27] LABS: Hematocrit (blood only) 33.9 % (37.0-47.0); Hemoglobin 10.3 g/dl (12.0-16.0); Mean Corpuscular Hemoglobin 27.5 pg (25.0-34.0); Mean Corpuscular Hgb Conc 30.4 g/dL (32.0-36.0); Mean Corpuscular Volume 90.4 fL (80.0-100.0); Mean Platelet Volume 10.6 fL (9.4-12.4); Platelet Count 218 K/uL (130-400); RDW Coefficient of Variation 14.6 % (11.5-14.5); RDW Standard Deviation 48.3 fL (36.4-46.3); Red Blood Count 3.75 M/uL (4.20-5.40)
[2023-04-20] MEDS: ALBUT/IPRATROP 3MG/0.5MG NEB 3 ML VIAL NEB PRN ×2 (07:59→21:00)
[2023-04-20 08:00] LABS: BUN Creatinine Ratio 28.9 (10-20); Creatinine Clr Calc Pharmacy 76.1 ml/min; Est GFR (African American) 88.9 ml/min; Est GFR (Non-African American) 76.7 ml/min; Potassium 3.3 mmol/L (3.5-5.1)
[2023-04-20] MEDS: METOPROLOL SUCC 25MG EXT REL TAB PO SCH (08:35)
[2023-04-20] MEDS: BUMETANIDE 2 MG in SYRINGE 0 ML IV SCH ×2 (08:36→16:51)
[2023-04-20] MEDS: SPIRONOLACTONE 12.5 MG TAB PO SCH (08:36)
[2023-04-20] MEDS: VALSARTAN/SACUBITRIL 51/49 MG TAB PO SCH ×2 (08:36→21:51)
[2023-04-20] MEDS: APIXABAN 2.5 MG TAB PO SCH ×2 (08:42→21:51)
[2023-04-20] MEDS: LANTUS PER UNIT CHARGE SQ SCH ×2 (08:47→21:51)
[2023-04-20] MEDS: INSULIN ASPART PER UNIT CHARGE SC SCH ×4 (08:48→21:01)
--- NOTE | 2023-04-20 13:36 | Cardiology Progress Note ---
Date of Service April 20, 2023 Assessment & Plan (1) Acute HFrEF (heart failure with reduced ejection fraction): (2) Elevated troponin: (3) COPD (chronic obstructive pulmonary disease): (4) Chronic respiratory failure with hypoxia, on home O2 therapy: (5) Hypertension: (6) Dyslipidemia: (7) Cardiomyopathy: (8) Pulmonary hypertension: (9) Pericardial effusion: (10) Atypical chest pain: Plan ASSESSMENT/PLAN: 1. Heart failure with reduced EF: She does not appear to be significantly hypervolemic currently. She has diuresed net -2.2 L this hospital stay. Can continue Bumex (she refuses afternoon/evening dose) but would reduce diuretic if evidence of azotemia. Spironolactone restarted this morning. Entresto started today in place of ARB. She is willing to start medications which may improve her quality of life but wants to start them while hospitalized in case of any adverse reaction. Apparently had not been able to afford SGLT2 inhibitor in the past. She follows in the heart failure program. 2. Cardiomyopathy: Etiology uncertain. We discussed ischemic evaluation such as cardiac catheterization. Risks and benefits were discussed with her in detail. She declines for now but is willing to consider. She wishes to pursue medical therapy rather than invasive measures. Given severe LVH, immunofixation ordered. Does not qualify for ICD for primary prevention at this time. Optimize medical therapy as above. 3. Hypertension: Blood pressure has been severely elevated but more moderately elevated today. Change in management initiated today and hopefully will show further improvement. This could be playing a role in her atypical chest pain, e levated troponins, and perhaps her cardiomyopathy. ARB replaced by Entresto 04/20/2023. Titrate medical therapy to improve blood pressure. 4. Elevated troponin: She did not present with acute coronary syndrome. Plan as above. She declines ischemic evaluation for now. 5. Dyslipidemia: Has not tolerated simvastatin in the past and she reports many allergies. If she is found to have CAD in the future, would recommend high intensity statin therapy but for now, will further adjust her cardiomyopathy/heart failure medications. 6. Chronic respiratory failure with hypoxia: Has severely abnormal PFTs, suggestive of severe COPD. Consider pulmonology evaluation at some point to optimize her medical therapy to improve her quality of life. Continue to optimize heart failure medications. 7. Pulmonary hypertension: Has severe COPD. Heart failure with reduced EF, although does not appear hypervolemic currently. Also discussed the role of right heart catheterization, which may help guide future therapies. She declines for now. 8. Atypical chest pain: Improved with nebulizer treatments. Has had left and right sided chest pain. May be related to hypertension or other cause. Does not appear to be consistent with angina. 9. Pericardial effusion: Small. Can be monitored in the future with repeat echo. No suggestion of tamponade physiology. 10. Disposition: Cardiology will continue to follow. Recommend that she continue to follow-up with the palliative care. Continue heart failure program. Care communicated with Dr. Silver of the primary hospitalist service. Admission and Anticipated Discharge Date Admission Date: April 17, 2023 Subjective She was seen this morning. She denies chest pain. Has had shortness of breath which continues to improve following nebulizer treatment. She denies syncope, palpitations, or worsening edema. She was seen sitting in a bedside chair. She was accompanied by 2 sisters and her daughter. She once again expressed interest in hospice, specifically receiving more care at home. Physical Exam Physical Exam: Gen.: No acute distress. Alert. HEENT: Anicteric sclera. Neck: No JVD. No hepatojugular reflux. Cardiac: No ventricular heave. Regular. No ectopy. Normal S1-S2. No murmurs, rubs, or gallops. Pulmonary: Crackles, specifically left base more so than the right. Decreased breath sounds bilaterally. Abdomen: Soft, nontender, nondistended, with normoactive bowel sounds. No bruits noted. Extremities: 2+ radial pulses bilaterally. 2+ posterior tibialis pulses bilaterally. Evidence of lymphedema bilateral lower extremities with trace pitting edema. No cyanosis. Results & Data Vital Signs (Past 12 Hours) Vital Signs Temp Pulse Pulse Resp BP BP Pulse Ox 04/20/23 11:25 36.8 C 75 20 166/73 H 95 04/20/23 08:04 76 20 76 L 04/20/23 07:34 36.8 C 72 16 155/72 H 93 04/20/23 07:00 63 04/20/23 02:48 36.9 C 64 16 152/85 H 99 O2 Del Method O2 Flow Rate 04/20/23 11:25 Nasal Cannula 2 04/20/23 08:04 Room Air 04/20/23 07:34 Nasal Cannula 2 04/20/23 07:00 04/20/23 02:48 Nasal Cannula 2 Intake & Output 04/18/23 04/19/23 04/20/23 04/21/23 06:59 06:59 06:59 06:59 Intake Total 584.500 / 033.453 2113 / 1240 860 / 860 Output Total 2450 / 2450 700 / 700 1700 / 1700 Balance -1865.500 / -1865.500 540 / 540 -840 / -840 Weight 202 lb 6.15 oz 203 lb 14.841 oz Laboratory Results Laboratory Results - last 24 hr 04/19/23 04/19/23 04/20/23 16:31 20:08 06:43 WBC RBC Hgb Hct MCV MCH MCHC RDW Std Deviation RDW Coeff of Smith Plt Count MPV Sodium Potassium Chloride Carbon Dioxide Anion Gap BUN Creatinine Est Cr Clr Drug Dosing Est GFR ( Amer) Est GFR (Non-Af Amer) BUN/Creatinine Ratio Glucose POC Glucose 140 H 190 H Calcium B-Natriuretic Peptide Serum Immunofixation Pending 04/20/23 04/20/23 04/20/23 06:43 06:43 06:43 WBC 6.60 RBC 3.75 L Hgb 10.3 L Hct 33.9 L MCV 90.4 MCH 27.5 MCHC 30.4 L RDW Std Deviation 48.3 H RDW Coeff of Smith 14.6 H Plt Count 218 MPV 10.6 Sodium 143 Potassium 3.3 L Chloride 98 Carbon Dioxide 43 H* Anion Gap 2 L BUN 22 Creatinine 0.76 Est Cr Clr Drug Dosing 76.1 Est GFR ( Amer) 88.9 Est GFR (Non-Af Amer) 76.7 BUN/Creatinine Ratio 28.9 H Glucose 68 L POC Glucose Calcium 8.0 L B-Natriuretic Peptide 785 H Serum Immunofixation 04/20/23 04/20/23 07:33 11:29 WBC RBC Hgb Hct MCV MCH MCHC RDW Std Deviation RDW Coeff of Smith Plt Count MPV Sodium Potassium Chloride Carbon Dioxide Anion Gap BUN Creatinine Est Cr Clr Drug Dosing Est GFR ( Amer) Est GFR (Non-Af Amer) BUN/Creatinine Ratio Glucose POC Glucose 72 159 H Calcium B-Natriuretic Peptide Serum Immunofixation Diagnostic Findings Telemetry personally reviewed: Sinus rhythm. No arrhythmia. Labs reviewed and notable for mild hypokalemia, stable hemoglobin, stable renal function. BNP elevated. Medications Administered Current Inpatient Medications Acetaminophen (Acetaminophen 500 Mg Tab) 1,000 mg PO Q8H PRN PRN Reason: Pain Stop: 05/17/23 21:51 Last Admin: 04/17/23 23:16 Dose: 1,000 mg Albuterol (Albut/Ipratrop 3mg/0.5mg Neb 3 Ml Vial) 3 ml NEB Q4R PRN; Protocol PRN Reason: sob or wheeze Stop: 05/17/23 21:51 Last Admin: 04/20/23 07:59 Dose: 3 ml Apixaban (Apixaban 2.5 Mg Tab) 2.5 mg PO BID [facility] Stop: 05/19/23 08:59 Last Admin: 04/20/23 08:42 Dose: Not Given Dextrose (Dextrose 50% 50 Ml Syringe) 25 - 50 ml IV UD PRN; Protocol PRN Reason: Hypoglycemia Protocol Stop: 05/17/23 21:51 Glucagon (Glucagon For Inj 1 Mg Vial) 1 mg SQ UD PRN; Protocol PRN Reason: Hypoglycemia Protocol Stop: 05/17/23 21:51 Glucose (Glucose 10 Tab/Tube) 4 - 8 tab PO UD PRN; Protocol PRN Reason: Hypoglycemia Treatment Stop: 05/17/23 21:51 Glucose (Glucose 40% Gel 15 Gm Tube) 15 - 30 gm PO UD PRN; Protocol PRN Reason: Hypoglycemia Protocol Stop: 05/17/23 21:51 Bumetanide 2 mg/ Syringe 8 mls @ 4 mls/min IV BID@0900,1700 [facility] Stop: 05/19/23 08:59 Last Admin: 04/20/23 08:36 Dose: 4 mls/min Insulin Aspart (Insulin Aspart Per Unit Charge) 0 units SC ACHS [facility] Stop: 05/17/23 21:51 Last Admin: 04/20/23 12:11 Dose: 3 units Insulin Glargine (Lantus Per Unit Charge) 12 units SQ BID [facility] Stop: 05/17/23 21:51 Last Admin: 04/20/23 08:47 Dose: 12 units Levothyroxine Sodium (Levothyroxine Sodium 150 Mcg Tablet) 150 mcg PO DAILYBB SABINE Stop: 05/18/23 06:29 Last Admin: 04/20/23 05:45 Dose: 150 mcg Metoprolol Succinate (Metoprolol Succ 25mg Ext Rel Tab) 75 mg PO DAILY SABINE Stop: 05/19/23 08:59 Last Admin: 04/20/23 08:35 Dose: 75 mg Miscellaneous (Carbohydrates For Hypoglycemia ) 15 - 30 gm PO UD PRN PRN Reason: Hypoglycemia Protocol Stop: 05/17/23 21:51 Ondansetron HCl (Ondansetron Inj 2 Mg/Ml 2 Ml Vial) 4 mg IV Q6H PRN PRN Reason: Nausea Stop: 05/17/23 21:51 Sacubitril/Valsartan (Valsartan/Sacubitril 51/49 Mg Tab) 1 tab PO BID SABINE Stop: 05/20/23 08:59 Last Admin: 04/20/23 08:36 Dose: 1 tab Spironolactone (Spironolactone 12.5 Mg Tab) 12.5 mg PO DAILY SABINE Stop: 05/20/23 08:59 Last Admin: 04/20/23 08:36 Dose: 12.5 mg PG Care Time/CCT Total # of Minutes Spent Total Time Spent with Patient: Total time spent is greater than 50% in coordination of care (as documented) at patient's floor/unit and/or counseling patient: Coding Level of Care Code 56610 SUB INP/OBS CARE 3/50MIN Diagnoses Acute HFrEF (heart failure with reduced ejection fraction) I50.21 Elevated troponin R77.8 COPD (chronic obstructive pulmonary disease) J44.9 Chronic respiratory failure with hypoxia, on home O2 therapy J96.11; Z99.81 Hypertension I10 Hypertension type: unspecified Dyslipidemia E78.5 Cardiomyopathy I42.9 Pulmonary hypertension I27.20 Pericardial effusion I31.39 Atypical chest pain R07.89 (5) Hypertension Hypertension type: unspecified Qualified Code(s): I10 - Essential (primary) hypertension
[2023-04-20] MEDS ORDERED: POTASSIUM CHLORIDE CRTAB 20 MEQ TABCR PO STA (17:35)
[2023-04-20] MEDS ORDERED: POTASSIUM CHLORIDE PWD 20 MEQ PACK PO ONE (18:26)
--- NOTE | 2023-04-20 23:45 | Hospitalist Progress Note ---
Date of Service April 20, 2023 Assessment & Plan (1) Acute HFrEF (heart failure with reduced ejection fraction): Plan: EF on echo today 35-40%; global hypokinesis. Echo 08/2022 with EF 55-60%. Significant change since 2021 echo. Etiology uncertain. With EKG changes (lateral T wave changes), +troponin, chest pain, etc - ischemia? Post-viral? Significant proteinuria - multiple myeloma? Other? Formal consult placed to [facility]. Consult placed to Carolee LAO from [facility] [place] [facility] [place] who knows patient well. Continue diuresis - bumex, will add spironolactone. Needs better BP control - increase metoprolol succ to 75mg daily; give additional 25mg this afternoon. Will ultimately need transition over from losartan to Entresto -add spironoalctone as metabolic aklaosis from bumex. replaced potassium on 04/20 Consider aldactone for added BP control + added diuresis. Consider SPEP/UPEP, ferritin level, thiamine level, etc. Left heart cath prior to discharge to r/o ischemia/CAD? Consulted cardio: patient refusing cardiac cath. Patient appears euvolemic. will continue to diurese until creatinine rises. Patient though refusing afternoon doses. Will consider adding aldactone, but patient refused, cardio switched losartan to entresto. Goal is to improve her BP (2) Elevated troponin: Plan: Minimall elevated. Despite symptoms and EKG changes there does not appear to be ACS. Defer on heparin infusion. Peak HS trop = 20. See #1 above. (3) Chest pain: Plan: See #1 above. EKG changes noted - V5 and V6 with inverted T waves; I/AVL with ST flattening. Inferior leads also with ST flattening. EKGs several months ago showed normal T's in anterolateral leads. ST segments were more upright in the limb leads. Echo ordered due to chest pain and EKG changes - EF now 35-40% - had been 55- 60%. See #1 above. Will add low-dose aspirin while awaiting recs from cardiology (L heart cath ultimately ??). Hopefully patient will take such. (4) Bronchiectasis: Plan: as seen on CT chest during prior hospital stay was to see [facility] [place] [facility] as outpatient in the next couple of weeks she has obstructive lung disease on PFTs from fall 2021 in addition to bronchiectasis seen on prior CT no bronchiectasis flare at this time (5) Chronic respiratory failure with hypoxia, on home O2 therapy: Plan: multifactorial - obstructive lung disease, bronchiectasis, restriction?, pulm HTN, possibly other factors no PEs on CTA study 11/2022 no prior h/o PEs in the past she also struggles with hypervolemia on day to day basis and thus is always congested due to CHF - this will also contribute to O2 requirement O2 sats stable on 2 L NC O2 (6) Hypothyroidism: Plan: patient has NOT had a normal TSH since early 2019 TSH remains high despite recent dose titration to 150mcg daily noncompliance with synthroid? poor absorption? I had corresponded with Dr Mills from [facility] [place] [facility] a few weeks ago re: the abnormal TSH he had suggested that a possible solution could be taking the synthroid sublingually decompensated hypothyroidism will certainly add to her hypervolemia consider formal endo consult while here to address this issue (7) Obstructive lung disease: Plan: as seen on PFTs fall 2021 was to see [facility] [place] [facility] in the next 1-2 weeks as outpatient cont bronchodilators despite her obstructive disease no wheezing on exam today (8) Hypercholesterolemia: Plan: does not take any statin or other agent (9) Hypertension: Plan: uncontrolled increase metoprolol succ to 75mg daily cont losartan 100mg daily ultimately will need transition from losartan to Entresto due to #1 defer to cardiology (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 Bresthing is improved. Review of Systems Review of Systems: All systems reviewed & are unremarkable except as noted in HPI & below Physical Exam Physical Exam: gen - sitting in recliner, NAD, awake, alert neck - JVD present mouth - MMM heart - RRR, s1 s2, 1-2/6 systolic murmur LLSB lungs - CTA BL abd - soft, likely ascites and/or body wall edema, BS+, NT ext - 2+ pitting edema extending from feet to the knees; lymphedema appearance to both feet; pulses 2+ b/l skin - hyperpigmentation of b/l shins - chronic psych - a/o x 3 Results & Data Results & Data Vital Signs (Past 12 Hours) Vital Signs Temp Pulse Pulse Resp BP Pulse Ox O2 Del Method 04/20/23 22:49 36.5 C 80 18 185/76 H 98 Nasal Cannula 04/20/23 21:02 80 20 98 Nasal Cannula 04/20/23 19:21 36.6 C 79 18 150/81 H 95 Nasal Cannula 04/20/23 15:00 74 04/20/23 15:30 36.9 C 71 18 162/75 H 98 Nasal Cannula O2 Flow Rate 04/20/23 22:49 3 04/20/23 21:02 3 04/20/23 19:21 3 04/20/23 15:00 04/20/23 15:30 2 PG Care Time/CCT Total # of Minutes Spent Total Time Spent with Patient: Total time spent is greater than 50% in coordination of care (as documented) at patient's floor/unit and/or counseling patient: Coding Level of Care Code 21761 SUB INP/OBS CARE 2/35MIN Diagnoses Acute HFrEF (heart failure with reduced ejection fraction) I50.21 Elevated troponin R77.8 Chest pain R07.9 Bronchiectasis J47.9 Chronic respiratory failure with hypoxia, on home O2 therapy J96.11; Z99.81 Hypothyroidism E03.9 Obstructive lung disease J44.9 Hypercholesterolemia E78.00 Hypertension I10 Hypertension type: unspecified Diabetes mellitus with albuminuria E11.29; R80.9 Proteinuria R80.9 DVT prophylaxis Z29.9 (9) Hypertension Hypertension type: unspecified Qualified Code(s): I10 - Essential (primary) hypertension
[2023-04-21] MEDS: ALBUT/IPRATROP 3MG/0.5MG NEB 3 ML VIAL NEB PRN (05:57)
[2023-04-21] MEDS: LEVOTHYROXINE SODIUM 150 MCG TABLET PO SCH (06:18)
[2023-04-21 07:26] LABS: Hematocrit (blood only) 32.7 % (37.0-47.0); Hemoglobin 10.1 g/dl (12.0-16.0); Mean Corpuscular Hemoglobin 27.6 pg (25.0-34.0); Mean Corpuscular Hgb Conc 30.9 g/dL (32.0-36.0); Mean Corpuscular Volume 89.3 fL (80.0-100.0); Mean Platelet Volume 10.7 fL (9.4-12.4); Platelet Count 196 K/uL (130-400); RDW Coefficient of Variation 14.3 % (11.5-14.5); RDW Standard Deviation 46.3 fL (36.4-46.3); Red Blood Count 3.66 M/uL (4.20-5.40); White Blood Count 6.04 K/ul (4.8-10.8)
[2023-04-21 08:17] LABS: BUN Creatinine Ratio 25.6 (10-20); Calcium 7.9 mg/dl (8.6-10.3); Creatinine Clr Calc Pharmacy 74.2 ml/min; Est GFR (African American) 86.2 ml/min; Est GFR (Non-African American) 74.4 ml/min; Potassium 3.6 mmol/L (3.5-5.1)
[2023-04-21] MEDS: BUMETANIDE 2 MG in SYRINGE 0 ML IV SCH ×2 (08:51→20:50)
[2023-04-21] MEDS: APIXABAN 2.5 MG TAB PO SCH ×2 (08:51→20:43)
[2023-04-21] MEDS: METOPROLOL SUCC 25MG EXT REL TAB PO SCH (08:52)
[2023-04-21] MEDS: VALSARTAN/SACUBITRIL 51/49 MG TAB PO SCH ×2 (08:52→21:21)
[2023-04-21] MEDS: SPIRONOLACTONE 12.5 MG TAB PO SCH (08:52)
[2023-04-21] MEDS: INSULIN ASPART PER UNIT CHARGE SC SCH ×4 (08:54→20:43)
[2023-04-21] MEDS: LANTUS PER UNIT CHARGE SQ SCH ×2 (08:55→20:43)
--- NOTE | 2023-04-21 13:07 | Cardiology Progress Note ---
Date of Service April 21, 2023 Assessment & Plan (1) Acute HFrEF (heart failure with reduced ejection fraction): (2) Elevated troponin: (3) COPD (chronic obstructive pulmonary disease): (4) Chronic respiratory failure with hypoxia, on home O2 therapy: (5) Hypertension: (6) Dyslipidemia: (7) Cardiomyopathy: (8) Pulmonary hypertension: (9) Pericardial effusion: (10) Atypical chest pain: Plan ASSESSMENT/PLAN: 1. Heart failure with reduced EF: She does not appear to be significantly hypervolemic currently. She has diuresed net -2.2 L this hospital stay. Can continue Bumex (she refuses afternoon/evening dose) but would reduce diuretic if evidence of azotemia. The past 2 days, she has not significantly diuresed a net negative balance. Recommended increasing Bumex to 3 mg daily, but she declines. Continue spironolactone. Continue Entresto (started on 04/20/2023). She is willing to start medications which may improve her quality of life but wants to start them while hospitalized in case of any adverse reaction. Apparently had not been able to afford SGLT2 inhibitor in the past. She follows in the heart failure program. 2. Cardiomyopathy: Etiology uncertain. We discussed ischemic evaluation such as cardiac catheterization. Risks and benefits were discussed with her in detail. She declines for now but is willing to consider. She wishes to pursue medical therapy rather than invasive measures. Given severe LVH, immunofixation ordered. Does not qualify for ICD for primary prevention at this time. Optimize medical therapy as above. 3. Hypertension: Blood pressure has improved. Continue regimen as above. This could be playing a role in her atypical chest pain, elevated troponins, and perhaps her cardiomyopathy. ARB replaced by Entresto 04/20/2023. Titrate medical therapy to improve blood pressure. 4. Elevated troponin: She did not present with acute coronary syndrome. Plan as above. She declines ischemic evaluation for now. 5. Dyslipidemia: Has not tolerated simvastatin in the past and she reports many allergies. If she is found to have CAD in the future, would recommend high intensity statin therapy but for now, will further adjust her cardiomyopathy/heart failure medications. 6. Chronic respiratory failure with hypoxia: Has severely abnormal PFTs, suggestive of severe COPD. Consider pulmonology consultation. Optimize medical therapy for COPD, as per primary hospitalist service versus pulmonology. Continue to optimize heart failure medications. 7. Pulmonary hypertension: Has severe COPD. Heart failure with reduced EF, although does not appear hypervolemic currently. Also discussed the role of right heart catheterization, which may help guide future therapies. She declines for now. 8. Atypical chest pain: Improved with nebulizer treatments. Has had left and right sided chest pain. Chest pain does not appear to be consistent with angina as it resolves quickly with nebulizer treatments. Once again discussed cardiac catheterization to definitively evaluate for CAD given chest pain, heart failu re, cardiomyopathy, but she again declined. 9. Pericardial effusion: Small. Can be monitored in the future with repeat echo. No suggestion of tamponade physiology. 10. Disposition: Cardiology will continue to follow. Recommend that she continue to follow-up with the palliative care. Continue heart failure program. Care communicated with Dr. Silver of the primary hospitalist service. Admission and Anticipated Discharge Date Admission Date: April 17, 2023 Subjective She was seen this morning. She has had epistaxis with continuous supplemental oxygen via nasal cannula. Epistaxis has resolved with added moisture. She continues to have shortness of breath which improves with nebulizer treatments. She continues to have intermittent chest discomfort that resolves with nebulizer treatments. She had nausea after taking her morning medications on an empty stomach. Specifically, she states that she typically takes her potassium supplementation with food, but today was on an empty stomach. She denies syncope, palpitations, or worsening edema. She was unaccompanied. Physical Exam Physical Exam: Gen.: No acute distress. Alert. HEENT: Anicteric sclera. Neck: No JVD. No hepatojugular reflux. Cardiac: No ventricular heave. Regular, without ectopy. Normal S1-S2. No murmurs, rubs, or gallops. Pulmonary: Crackles, specifically left base more so than the right. Decreased breath sounds bilaterally. Abdomen: Soft, nontender, nondistended, with normoactive bowel sounds. No bruits noted. Extremities: 2+ radial pulses bilaterally. 2+ posterior tibialis pulses bilaterally. Evidence of lymphedema bilateral lower extremities with trace pitting edema. No cyanosis. Results & Data Vital Signs (Past 12 Hours) Vital Signs Temp Pulse Pulse Resp BP Pulse Ox O2 Del Method 04/21/23 11:21 36.4 C L 89 18 137/75 96 Nasal Cannula 04/21/23 09:00 Nasal Cannula 04/21/23 08:27 36.8 C 88 18 151/74 H 95 Room Air 04/21/23 07:00 80 04/21/23 05:59 78 20 96 Nasal Cannula 04/21/23 04:06 37.2 C 78 16 169/76 H 95 Nasal Cannula O2 Flow Rate 04/21/23 11:21 3 04/21/23 09:00 3 04/21/23 08:27 04/21/23 07:00 04/21/23 05:59 3 04/21/23 04:06 3 Intake & Output 04/19/23 04/20/23 04/21/23 04/22/23 06:59 06:59 06:59 06:59 Intake Total 1240 / 1240 860 / 860 1040 / 1040 Output Total 700 / 700 1700 / 1700 1100 / 1100 Balance 540 / 540 -840 / -840 -60 / -60 Weight 203 lb 14.841 oz 204 lb 2.369 oz Laboratory Results Laboratory Results - last 24 hr 04/20/23 04/20/23 04/21/23 16:20 20:57 06:57 WBC 6.04 RBC 3.66 L Hgb 10.1 L Hct 32.7 L MCV 89.3 MCH 27.6 MCHC 30.9 L RDW Std Deviation 46.3 RDW Coeff of Smith 14.3 Plt Count 196 MPV 10.7 Sodium Potassium Chloride Carbon Dioxide Anion Gap BUN Creatinine Est Cr Clr Drug Dosing Est GFR ( Amer) Est GFR (Non-Af Amer) BUN/Creatinine Ratio Glucose POC Glucose 188 H 106 H Calcium B-Natriuretic Peptide 04/21/23 04/21/23 04/21/23 06:57 06:57 07:53 WBC RBC Hgb Hct MCV MCH MCHC RDW Std Deviation RDW Coeff of Smith Plt Count MPV Sodium 141 Potassium 3.6 Chloride 97 L Carbon Dioxide 43 H* Anion Gap 1 L BUN 20 Creatinine 0.78 Est Cr Clr Drug Dosing 74.2 Est GFR ( Amer) 86.2 Est GFR (Non-Af Amer) 74.4 BUN/Creatinine Ratio 25.6 H Glucose 108 H POC Glucose 123 H Calcium 7.9 L B-Natriuretic Peptide 399 H 04/21/23 11:51 WBC RBC Hgb Hct MCV MCH MCHC RDW Std Deviation RDW Coeff of Smith Plt Count MPV Sodium Potassium Chloride Carbon Dioxide Anion Gap BUN Creatinine Est Cr Clr Drug Dosing Est GFR ( Amer) Est GFR (Non-Af Amer) BUN/Creatinine Ratio Glucose POC Glucose 134 H Calcium B-Natriuretic Peptide Diagnostic Findings Telemetry personally reviewed: Sinus rhythm. No arrhythmia. Labs reviewed and notable for stable renal function, mild anemia. Medications Administered Current Inpatient Medications Acetaminophen (Acetaminophen 500 Mg Tab) 1,000 mg PO Q8H PRN PRN Reason: Pain Stop: 05/17/23 21:51 Last Admin: 04/17/23 23:16 Dose: 1,000 mg Albuterol (Albut/Ipratrop 3mg/0.5mg Neb 3 Ml Vial) 3 ml NEB Q4R PRN; Protocol PRN Reason: sob or wheeze Stop: 05/17/23 21:51 Last Admin: 04/21/23 05:57 Dose: 3 ml Apixaban (Apixaban 2.5 Mg Tab) 2.5 mg PO BID SABINE Stop: 05/19/23 08:59 Last Admin: 04/21/23 08:51 Dose: Not Given Dextrose (Dextrose 50% 50 Ml Syringe) 25 - 50 ml IV UD PRN; Protocol PRN Reason: Hypoglycemia Protocol Stop: 05/17/23 21:51 Glucagon (Glucagon For Inj 1 Mg Vial) 1 mg SQ UD PRN; Protocol PRN Reason: Hypoglycemia Protocol Stop: 05/17/23 21:51 Glucose (Glucose 10 Tab/Tube) 4 - 8 tab PO UD PRN; Protocol PRN Reason: Hypoglycemia Treatment Stop: 05/17/23 21:51 Glucose (Glucose 40% Gel 15 Gm Tube) 15 - 30 gm PO UD PRN; Protocol PRN Reason: Hypoglycemia Protocol Stop: 05/17/23 21:51 Bumetanide 2 mg/ Syringe 8 mls @ 4 mls/min IV BID@0900,1700 [facility] Stop: 05/19/23 08:59 Last Admin: 04/21/23 08:51 Dose: 4 mls/min Insulin Aspart (Insulin Aspart Per Unit Charge) 0 units SC ACHS SABINE Stop: 05/17/23 21:51 Last Admin: 04/21/23 12:43 Dose: Not Given Insulin Glargine (Lantus Per Unit Charge) 12 units SQ BID SABINE Stop: 05/17/23 21:51 Last Admin: 04/21/23 08:55 Dose: 12 units Levothyroxine Sodium (Levothyroxine Sodium 150 Mcg Tablet) 150 mcg PO DAILYBB [facility] Stop: 05/18/23 06:29 Last Admin: 04/21/23 06:18 Dose: 150 mcg Metoprolol Succinate (Metoprolol Succ 25mg Ext Rel Tab) 75 mg PO DAILY [facility] Stop: 05/19/23 08:59 Last Admin: 04/21/23 08:52 Dose: 75 mg Miscellaneous (Carbohydrates For Hypoglycemia ) 15 - 30 gm PO UD PRN PRN Reason: Hypoglycemia Protocol Stop: 05/17/23 21:51 Ondansetron HCl (Ondansetron Inj 2 Mg/Ml 2 Ml Vial) 4 mg IV Q6H PRN PRN Reason: Nausea Stop: 05/17/23 21:51 Sacubitril/Valsartan (Valsartan/Sacubitril 51/49 Mg Tab) 1 tab PO BID [facility] Stop: 05/20/23 08:59 Last Admin: 04/21/23 08:52 Dose: 1 tab Spironolactone (Spironolactone 12.5 Mg Tab) 12.5 mg PO DAILY [facility] Stop: 05/20/23 08:59 Last Admin: 04/21/23 08:52 Dose: 12.5 mg PG Care Time/CCT Total # of Minutes Spent Total Time Spent with Patient: Total time spent is greater than 50% in coordination of care (as documented) at patient's floor/unit and/or counseling patient: Coding Level of Care Code 43249 SUB INP/OBS CARE 3/50MIN Diagnoses Acute HFrEF (heart failure with reduced ejection fraction) I50.21 Elevated troponin R77.8 COPD (chronic obstructive pulmonary disease) J44.9 Chronic respiratory failure with hypoxia, on home O2 therapy J96.11; Z99.81 Hypertension I10 Hypertension type: unspecified Dyslipidemia E78.5 Cardiomyopathy I42.9 Pulmonary hypertension I27.20 Pericardial effusion I31.39 Atypical chest pain R07.89 (5) Hypertension Hypertension type: unspecified Qualified Code(s): I10 - Essential (primary) hypertension
--- NOTE | 2023-04-21 22:26 | Hospitalist Progress Note ---
Date of Service April 21, 2023 Assessment & Plan (1) Acute HFrEF (heart failure with reduced ejection fraction): Plan: EF on echo today 35-40%; global hypokinesis. Echo 08/2022 with EF 55-60%. Significant change since 2021 echo. Etiology uncertain. With EKG changes (lateral T wave changes), +troponin, chest pain, etc - ischemia? Post-viral? Significant proteinuria - multiple myeloma? Other? Formal consult placed to [facility] Cardiology: refused cardiac cath. Consult placed to Carolee LAO from [facility] CHF clinic who knows patient well. Continue diuresis - bumex, will add spironolactone. Needs better BP control - increase metoprolol succ to 75mg daily; give a dditional 25mg this afternoon. Will ultimately need transition over from losartan to Entresto -add spironoalctone as metabolic aklaosis from bumex. replaced potassium on 04/20 Apprears euvolemic Switched loaratan to entresto. BP appears better controlled. D/W pulmonary as a curbside, trial of breo given severe COPD/restrictlive lung disease. (2) Elevated troponin: Plan: Minimall elevated. Despite symptoms and EKG changes there does not appear to be ACS. Defer on heparin infusion. Peak HS trop = 20. See #1 above. (3) Chest pain: Plan: See #1 above. EKG changes noted - V5 and V6 with inverted T waves; I/AVL with ST flattening. Inferior leads also with ST flattening. EKGs several months ago showed normal T's in anterolateral leads. ST segments were more upright in the limb leads. Echo ordered due to chest pain and EKG changes - EF now 35-40% - had been 55- 60%. See #1 above. Will add low-dose aspirin while awaiting recs from cardiology (L heart cath ultimately ??). Hopefully patient will take such. (4) Bronchiectasis: Plan: as seen on CT chest during prior hospital stay was to see [facility] Pulmonary as outpatient in the next couple of weeks she has obstructive lung disease on PFTs from fall 2021 in addition to bronchiectasis seen on prior CT no bronchiectasis flare at this time (5) Chronic respiratory failure with hypoxia, on home O2 therapy: Plan: multifactorial - obstructive lung disease, bronchiectasis, restriction?, pulm HTN, possibly other factors no PEs on CTA study 11/2022 no prior h/o PEs in the past she also struggles with hypervolemia on day to day basis and thus is always congested due to CHF - this will also contribute to O2 requirement O2 sats stable on 2 L NC O2 (6) Hypothyroidism: Plan: patient has NOT had a normal TSH since early 2019 TSH remains high despite recent dose titration to 150mcg daily noncompliance with synthroid? poor absorption? I had corresponded with Dr Mills from [facility] Endo a few weeks ago re: the abnormal TSH he had suggested that a possible solution could be taking the synthroid sublingually decompensated hypothyroidism will certainly add to her hypervolemia consider formal endo consult while here to address this issue (7) Obstructive lung disease: Plan: as seen on PFTs fall 2021 was to see [facility] Pulmonary in the next 1-2 weeks as outpatient cont bronchodilators despite her obstructive disease no wheezing on exam today (8) Hypercholesterolemia: Plan: does not take any statin or other agent (9) Hypertension: Plan: improved. 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 Admission and Anticipated Discharge Date Admission Date: April 17, 2023 Subjective 77 yo female reports feeling nauseous. Review of Systems Review of Systems: All systems reviewed & are unremarkable except as noted in HPI & below Physical Exam Physical Exam: gen - \NAD, awake, alert mouth - MMM heart - RRR, s1 s2, 1-2/6 systolic murmur LLSB lungs - CTA BL abd - soft, BS+, NT ext - 2+ pitting edema extending from feet to the knees (improved); lymphedema appearance to both feet; pulses 2+ b/l skin - hyperpigmentation of b/l shins - chronic psych - a/o x 3 Results & Data Results & Data Vital Signs (Past 12 Hours) Vital Signs Temp Pulse Pulse Resp BP BP Pulse Ox 04/21/23 22:12 04/21/23 19:48 36.8 C 86 18 158/77 H 96 04/21/23 17:21 88 04/21/23 15:30 36.6 C 87 18 147/75 H 98 04/21/23 11:21 36.4 C L 89 18 137/75 96 O2 Del Method O2 Flow Rate 04/21/23 22:12 Room Air, Nasal Cannula 3 04/21/23 19:48 Nasal Cannula 3 04/21/23 17:21 04/21/23 15:30 Nasal Cannula 3 04/21/23 11:21 Nasal Cannula 3 PG Care Time/CCT Total # of Minutes Spent Total Time Spent with Patient: Total time spent is greater than 50% in coordination of care (as documented) at patient's floor/unit and/or counseling patient: Coding Level of Care Code 76449 SUB INP/OBS CARE 2/35MIN Diagnoses Acute HFrEF (heart failure with reduced ejection fraction) I50.21 Elevated troponin R77.8 Chest pain R07.9 Bronchiectasis J47.9 Chronic respiratory failure with hypoxia, on home O2 therapy J96.11; Z99.81 Hypothyroidism E03.9 Obstructive lung disease J44.9 Hypercholesterolemia E78.00 Hypertension I10 Hypertension type: unspecified Diabetes mellitus with albuminuria E11.29; R80.9 Proteinuria R80.9 DVT prophylaxis Z29.9 (9) Hypertension Hypertension type: unspecified Qualified Code(s): I10 - Essential (primary) hypertension
[2023-04-22] MEDS: LEVOTHYROXINE SODIUM 150 MCG TABLET PO SCH (05:34)
[2023-04-22] MEDS: INSULIN ASPART PER UNIT CHARGE SC SCH ×4 (08:03→20:39)
[2023-04-22] MEDS: APIXABAN 2.5 MG TAB PO SCH ×2 (08:22→20:40)
[2023-04-22] MEDS: VALSARTAN/SACUBITRIL 51/49 MG TAB PO SCH ×2 (08:23→20:40)
[2023-04-22] MEDS: BUMETANIDE 2 MG in SYRINGE 0 ML IV SCH (08:23)
[2023-04-22] MEDS: SPIRONOLACTONE 12.5 MG TAB PO SCH (08:24)
[2023-04-22] MEDS: METOPROLOL SUCC 25MG EXT REL TAB PO SCH (08:24)
[2023-04-22] MEDS: FLUTICASONE/VILANTEROL 100/25MCG 14 PUFFS/INHALER INH SCH (08:25)
[2023-04-22] MEDS: LANTUS PER UNIT CHARGE SQ SCH ×2 (08:28→20:39)
--- NOTE | 2023-04-22 08:35 | Hospitalist Progress Note ---
Date of Service April 22, 2023 Assessment & Plan (1) Acute HFrEF (heart failure with reduced ejection fraction): Plan: EF 35-40%; global hypokinesis. reduced from Echo 08/2022 with EF 55-60%. Etiology uncertain. With EKG changes (lateral T wave changes), +troponin, chest pain, etc - ischemia? Formal consult placed to [facility] Cardiology: refused cardiac cath. Consult placed to Carolee LAO from [facility] CHF clinic who knows patient well. Continue diuresis - bumex, plus spironolactone. uncontrolled hypertension- increased metoprolol succ to 75mg daily started Entresto -add spironolactone as metabolic aklaosis from bumex. Appears euvolemic D/W pulmonary as a curbside, trial of breo given severe COPD/restrictive lung disease. (2) Elevated troponin: Plan: Minimall elevated, no significant trend, not acs but mild inferior lateral changes on ECG new from previous declined cardiac cath Guideline directed medical therapy for coronary artery disease (3) Chronic respiratory failure with hypoxia, on home O2 therapy: Plan: multifactorial - obstructive lung disease, bronchiectasis, restriction?, pulm HTN, possibly other factors no PEs on CTA study 11/2022 no prior h/o PEs in the past Bronchiectasis seen on previous CT chest, not in acute flare started Breo O2 sats stable on 2-3 L NC O2 (4) Hypothyroidism: Plan: patient has NOT had a normal TSH since early 2019 TSH remains high despite recent dose titration to 150mcg daily Dr Silver had corresponded with Dr Mills from [facility] Endo a few weeks ago re: the abnormal TSH he had suggested that a possible solution could be taking the synthroid sublingually may benefit from outpt Endocrinology appointment (5) Diabetes mellitus with albuminuria: Plan: HbA1C 7.9% early March 2023 cont basal cont novolog (6) Proteinuria: Plan: likely 2nd to diabetic nephropathy cont ARB (7) DVT prophylaxis: Plan: on all previous hospitalizations patient ALWAYS had refused SC heparin or lovenox she is at high risk of DVT/VTE given her immobility from prior R hip fracture thus, use Eliquis 2.5mg BID for DVT proph Plan Patient change plans to discharge on hospice to revoke any palliative care discussions Daughter Alma Gee palpitated on 04/22/2023 Admission and Anticipated Discharge Date Admission Date: April 17, 2023 Subjective Patient was a little upset this morning she revoked her decision to pursue Palliative care she revoked her DNR status She says she is not ready to she wants to keep living 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 She does however have fairly optimize volume status not significant improvement of shortness of breath with Breo and remains on oxygen supplementation Physical Exam Physical Exam: Awake alert appropriate Mildly short of breath with conversation Cardiac exam is rate controlled with a systolic murmur Extremities are to 1-2+ edema which she says is her baseline Results & Data Results & Data Vital Signs (Past 12 Hours) Vital Signs Temp Pulse Pulse Resp BP BP Pulse Ox 04/22/23 07:55 98.6 F 91 H 18 161/84 H 94 04/22/23 07:40 82 04/22/23 02:47 98.2 F 80 16 146/74 H 94 04/21/23 23:31 81 04/21/23 22:26 98.4 F 84 16 132/76 96 04/21/23 22:12 O2 Del Method O2 Flow Rate 04/22/23 07:55 Nasal Cannula 3 04/22/23 07:40 04/22/23 02:47 Nasal Cannula 3 04/21/23 23:31 04/21/23 22:26 Nasal Cannula 3 04/21/23 22:12 Room Air, Nasal Cannula 3 PG Care Time/CCT Total # of Minutes Spent Total Time Spent with Patient: Total time spent is greater than 50% in coordination of care (as documented) at patient's floor/unit and/or counseling patient: Coding Level of Care Code 74262 SUB INP/OBS CARE 3/50MIN Diagnoses Acute HFrEF (heart failure with reduced ejection fraction) I50.21 Elevated troponin R77.8 Chronic respiratory failure with hypoxia, on home O2 therapy J96.11; Z99.81 Hypothyroidism E03.9 Diabetes mellitus with albuminuria E11.29; R80.9 Proteinuria R80.9 DVT prophylaxis Z29.9
[2023-04-22 09:03] LABS: Hemoglobin 10.3 g/dl (12.0-16.0); Mean Corpuscular Hemoglobin 28.1 pg (25.0-34.0); Mean Corpuscular Hgb Conc 32.2 g/dL (32.0-36.0); Mean Corpuscular Volume 87.2 fL (80.0-100.0); Mean Platelet Volume 11.3 fL (9.4-12.4); Platelet Count 197 K/uL (130-400); RDW Coefficient of Variation 14.5 % (11.5-14.5); RDW Standard Deviation 46.2 fL (36.4-46.3); Red Blood Count 3.67 M/uL (4.20-5.40); White Blood Count 8.79 K/ul (4.8-10.8)
[2023-04-22 09:25] LABS: BUN Creatinine Ratio 34.2 (10-20); Calcium 8.1 mg/dl (8.6-10.3); Creatinine Clr Calc Pharmacy 71.7 ml/min; Est GFR (African American) 84.9 ml/min; Est GFR (Non-African American) 73.2 ml/min; Potassium 3.5 mmol/L (3.5-5.1)
--- NOTE | 2023-04-22 10:40 | XRay Report ---
KUB HISTORY: nausea COMPARISON: Abdomen and pelvis CT 03/22/2023. FINDINGS: A few mildly dilated gas-filled loops of small bowel within the left side the abdomen. Ther e is gas and stool remaining within the colon. This could represent a mild ileus. Moderate fecal rete ntion again noted. Small left pleural effusion persists. No renal calculi. No ureteral calculi. Calc ifications in the deep pelvis likely represent phleboliths. No pneumoperitoneum or pneumatosis. IMPRESSION: 1. A few mildly dilated gas-filled loops of small bowel within the left side of the abdomen. There is gas and stool remaining within the colon. Therefore, this could represent a mild ileus. 2. Moderate fecal retention again noted. 3. Small left pleural effusion persists. ACT 112: Negative or not required by law. Electronically signed by: Edgar Meek M.D. 04/22/2023 10:38 AM
--- NOTE | 2023-04-22 15:25 | Cardiology Progress Note ---
Date of Service April 22, 2023 Assessment & Plan (1) Acute HFrEF (heart failure with reduced ejection fraction): (2) Elevated troponin: (3) COPD (chronic obstructive pulmonary disease): (4) Chronic respiratory failure with hypoxia, on home O2 therapy: (5) Hypertension: (6) Dyslipidemia: (7) Cardiomyopathy: (8) Pulmonary hypertension: (9) Pericardial effusion: (10) Atypical chest pain: Plan ASSESSMENT/PLAN: 1. Heart failure with reduced EF: She does not appear to be significantly hypervolemic currently. I's and O's have not been completed completely over the past 1 to 2 days. BUN is now increasing, suggesting possible azotemia and bicarb level is now elevated. Recommend resuming oral Bumex tomorrow. Continue spironolactone. Continue Entresto (started on 04/20/2023). She is willing to start medications which may improve her quality of life but wants to start them while hospitalized in case of any adverse reaction. Apparently had not been able to afford SGLT2 inhibitor in the past. She follows in the heart failure program. 2. Cardiomyopathy: Etiology uncertain. We discussed ischemic evaluation such as cardiac catheterization. Risks and benefits were discussed with her in detail. This was discussed with her again today as she inquired again. She declines for now but is willing to consider. Given severe LVH, immunofixation ordered and pending. Does not qualify for ICD for primary prevention at this time. Optimize medical therapy as above. 3. Hypertension: Blood pressure has improved. Continue regimen as above. This may have played a role in her atypical chest pain, elevated troponins, and perhaps her cardiomyopathy. ARB replaced by Entresto 04/20/2023. 4. Elevated troponin: She did not present with acute coronary syndrome. Plan as above. She declines ischemic evaluation for now. 5. Dyslipidemia: Has not tolerated simvastatin in the past and she reports many allergies. If she is found to have CAD in the future, would recommend high intensity statin therapy but for now, will further adjust her cardiomyopathy/heart failure medications. 6. Chronic respiratory failure with hypoxia: Has severely abnormal PFTs, suggestive of severe COPD. Consider pulmonology consultation. Optimize medical therapy for COPD, as per primary hospitalist service versus pulmonology. Breo ordered today, but according to EHR, she refused. Continue to optimize heart failure medications. 7. Pulmonary hypertension: Has severe COPD. Heart failure with reduced EF, although does not appear hypervolemic currently. Also discussed the role of right heart catheterization, which may help guide future therapies. We once again discussed cardiac catheterization today as per her request but she declines to pursue for now. 8. Atypical chest pain: Improved with nebulizer treatments. Has had left and right sided chest pain. Chest pain does not appear to be consistent with angina as it resolves quickly with nebulizer treatments. 9. Pericardial effusion: Small. Can be monitored in the future with repeat echo. No suggestion of tamponade physiology. 10. Disposition: Cardiology will continue to follow. Continue heart failure program. Care communicated with Dr. Massey of the primary hospitalist service. Admission and Anticipated Discharge Date Admission Date: April 17, 2023 Subjective Patient was seen earlier today. She believes that her breathing has improved. She has not noted any worsening edema. She denies chest pain, syncope, palpitations, or bleeding. She met with palliative care earlier this hospital stay and has mentioned potential home hospice but has been contemplating her care options. She is still contemplating undergoing cardiac catheterization but for now would like to hold off. She was alone in her hospital room. Physical Exam Physical Exam: Gen.: No acute distress. Alert. HEENT: Anicteric sclera. Neck: No JVD. No hepatojugular reflux. Cardiac: No ventricular heave. Regular. No ectopy. Normal S1-S2. No murmurs, rubs, or gallops. Pulmonary: Crackles, specifically left base more so than the right. Decreased breath sounds bilaterally. Abdomen: Soft, nontender, nondistended, with normoactive bowel sounds. No bruits noted. Extremities: 2+ radial pulses bilaterally. 2+ posterior tibialis pulses bilaterally. Evidence of lymphedema bilateral lower extremities with trace pitting edema. No cyanosis. Results & Data Vital Signs (Past 12 Hours) Vital Signs Temp Pulse Pulse Resp BP Pulse Ox O2 Del Method 04/22/23 14:41 37.0 C 78 18 135/70 95 Nasal Cannula 04/22/23 08:30 Nasal Cannula 04/22/23 11:21 36.8 C 78 18 134/65 96 Nasal Cannula 04/22/23 07:55 37.0 C 91 H 18 161/84 H 94 Nasal Cannula 04/22/23 07:40 82 O2 Flow Rate 07/06/23 14:41 3 04/22/23 08:30 3 04/22/23 11:21 3 04/22/23 07:55 3 04/22/23 07:40 Intake & Output 04/20/23 04/21/23 04/22/23 04/23/23 06:59 06:59 06:59 06:59 Intake Total 860 / 860 1040 / 1040 650 / 650 80 / 80 Output Total 1700 / 1700 1100 / 1100 150 / 150 Balance -840 / -840 -60 / -60 500 / 500 80 / 80 Weight 204 lb 2.369 oz 195 lb 8.8 oz Laboratory Results Laboratory Results - last 24 hr 04/21/23 04/21/23 04/22/23 16:27 20:32 07:51 WBC RBC Hgb Hct MCV MCH MCHC RDW Std Deviation RDW Coeff of Smith Plt Count MPV Sodium Potassium Chloride Carbon Dioxide Anion Gap BUN Creatinine Est Cr Clr Drug Dosing Est GFR ( Amer) Est GFR (Non-Af Amer) BUN/Creatinine Ratio Glucose POC Glucose 98 142 H 81 Calcium B-Natriuretic Peptide 04/22/23 04/22/23 04/22/23 08:23 08:23 08:23 WBC 8.79 RBC 3.67 L Hgb 10.3 L Hct 32.0 L MCV 87.2 MCH 28.1 MCHC 32.2 RDW Std Deviation 46.2 RDW Coeff of Smith 14.5 Plt Count 197 MPV 11.3 Sodium 139 Potassium 3.5 Chloride 94 L Carbon Dioxide 41 H* Anion Gap 4 BUN 27 H Creatinine 0.79 Est Cr Clr Drug Dosing 71.7 Est GFR ( Amer) 84.9 Est GFR (Non-Af Amer) 73.2 BUN/Creatinine Ratio 34.2 H Glucose 92 POC Glucose Calcium 8.1 L B-Natriuretic Peptide 607 H 04/22/23 11:15 WBC RBC Hgb Hct MCV MCH MCHC RDW Std Deviation RDW Coeff of Smith Plt Count MPV Sodium Potassium Chloride Carbon Dioxide Anion Gap BUN Creatinine Est Cr Clr Drug Dosing Est GFR ( Amer) Est GFR (Non-Af Amer) BUN/Creatinine Ratio Glucose POC Glucose 170 H Calcium B-Natriuretic Peptide Diagnostic Findings Labs reviewed and notable for elevated BNP (now on Entresto), stable renal function, mild anemia. Telemetry personally reviewed: Sinus rhythm. Hospitalist note reviewed from 04/21/2023, which mentions a trial of Breo given severe COPD/restrictive lung disease. Medications Administered Current Inpatient Medications Acetaminophen (Acetaminophen 500 Mg Tab) 1,000 mg PO Q8H PRN PRN Reason: Pain Stop: 05/17/23 21:51 Last Admin: 04/17/23 23:16 Dose: 1,000 mg Albuterol (Albut/Ipratrop 3mg/0.5mg Neb 3 Ml Vial) 3 ml NEB Q4R PRN; Protocol PRN Reason: sob or wheeze Stop: 05/17/23 21:51 Last Admin: 04/21/23 05:57 Dose: 3 ml Apixaban (Apixaban 2.5 Mg Tab) 2.5 mg PO BID SABINE Stop: 05/19/23 08:59 Last Admin: 04/22/23 08:22 Dose: Not Given Dextrose (Dextrose 50% 50 Ml Syringe) 25 - 50 ml IV UD PRN; Protocol PRN Reason: Hypoglycemia Protocol Stop: 05/17/23 21:51 Fluticasone/Vilanterol (Fluticasone/Vilanterol 100/25mcg 14 Puffs/Inhaler) 1 puffs INH DAILY SABINE Stop: 05/22/23 08:59 Last Admin: 04/22/23 08:25 Dose: Not Given Glucagon (Glucagon For Inj 1 Mg Vial) 1 mg SQ UD PRN; Protocol PRN Reason: Hypoglycemia Protocol Stop: 05/17/23 21:51 Glucose (Glucose 10 Tab/Tube) 4 - 8 tab PO UD PRN; Protocol PRN Reason: Hypoglycemia Treatment Stop: 05/17/23 21:51 Glucose (Glucose 40% Gel 15 Gm Tube) 15 - 30 gm PO UD PRN; Protocol PRN Reason: Hypoglycemia Protocol Stop: 05/17/23 21:51 Bumetanide 2 mg/ Syringe 8 mls @ 4 mls/min IV BID@0900,1700 SABINE Stop: 05/19/23 08:59 Last Admin: 04/22/23 08:23 Dose: 4 mls/min Insulin Aspart (Insulin Aspart Per Unit Charge) 0 units SC ACHS SABINE Stop: 05/17/23 21:51 Last Admin: 04/22/23 12:01 Dose: 2 units Insulin Glargine (Lantus Per Unit Charge) 12 units SQ BID [facility] Stop: 05/17/23 21:51 Last Admin: 04/22/23 08:28 Dose: 12 units Levothyroxine Sodium (Levothyroxine Sodium 150 Mcg Tablet) 150 mcg PO DAILYBB [facility] Stop: 05/18/23 06:29 Last Admin: 04/22/23 05:34 Dose: 150 mcg Metoprolol Succinate (Metoprolol Succ 25mg Ext Rel Tab) 75 mg PO DAILY [facility] Stop: 05/19/23 08:59 Last Admin: 04/22/23 08:24 Dose: 75 mg Miscellaneous (Carbohydrates For Hypoglycemia ) 15 - 30 gm PO UD PRN PRN Reason: Hypoglycemia Protocol Stop: 05/17/23 21:51 Ondansetron HCl (Ondansetron Inj 2 Mg/Ml 2 Ml Vial) 4 mg IV Q6H PRN PRN Reason: Nausea Stop: 05/17/23 21:51 Sacubitril/Valsartan (Valsartan/Sacubitril 51/49 Mg Tab) 1 tab PO BID [facility] Stop: 05/20/23 08:59 Last Admin: 04/22/23 08:23 Dose: 1 tab Spironolactone (Spironolactone 12.5 Mg Tab) 12.5 mg PO DAILY [facility] Stop: 05/20/23 08:59 Last Admin: 04/22/23 08:24 Dose: 12.5 mg PG Care Time/CCT Total # of Minutes Spent Total Time Spent with Patient: Total time spent is greater than 50% in coordination of care (as documented) at patient's floor/unit and/or counseling patient: Coding Level of Care Code 76108 SUB INP/OBS CARE 3/50MIN Diagnoses Acute HFrEF (heart failure with reduced ejection fraction) I50.21 Elevated troponin R77.8 COPD (chronic obstructive pulmonary disease) J44.9 Chronic respiratory failure with hypoxia, on home O2 therapy J96.11; Z99.81 Hypertension I10 Hypertension type: unspecified Dyslipidemia E78.5 Cardiomyopathy I42.9 Pulmonary hypertension I27.20 Pericardial effusion I31.39 Atypical chest pain R07.89 (5) Hypertension Hypertension type: unspecified Qualified Code(s): I10 - Essential (primary) hypertension
[2023-04-22] MEDS ORDERED: ONDANSETRON INJ 2 MG/ML 2 ML VIAL IV PRN (18:24)
[2023-04-23] MEDS: LEVOTHYROXINE SODIUM 150 MCG TABLET PO SCH (05:40)
[2023-04-23] MEDS: VALSARTAN/SACUBITRIL 51/49 MG TAB PO SCH ×2 (08:34→19:52)
[2023-04-23] MEDS: METOPROLOL SUCC 25MG EXT REL TAB PO SCH (08:34)
[2023-04-23] MEDS: SENNA 8.6 MG TAB PO SCH (08:34)
[2023-04-23] MEDS: SPIRONOLACTONE 12.5 MG TAB PO SCH (08:35)
[2023-04-23] MEDS: LANTUS PER UNIT CHARGE SQ SCH ×2 (08:41→21:12)
[2023-04-23] MEDS: INSULIN ASPART PER UNIT CHARGE SC SCH ×4 (08:42→21:11)
[2023-04-23] MEDS ORDERED: BUMETANIDE 1 MG TAB PO SCH (09:00)
[2023-04-23 09:25] LABS: Abnormal Protein Band 1 DNR mg/24 h (NONE DETECTED); Abnormal Protein Band 2 DNR mg/24 h (NONE DETECTED); Abnormal Protein Band 3 DNR mg/24 h (NONE DETECTED); Creatinine, 24 hr Urine 0.66 g/24 h (0.50-2.15); Protein, Urine 24 Hour 1181 mg/24 h (<150); Ur Protein/Creatinine Rat mg/g 1786 mg/g creat (<150); Urine Protein/Creatinine Ratio 1.786 (<0.150)
[2023-04-23] MEDS: APIXABAN 2.5 MG TAB PO SCH ×2 (12:38→19:52)
[2023-04-23] MEDS: FLUTICASONE/VILANTEROL 100/25MCG 14 PUFFS/INHALER INH SCH (12:38)
[2023-04-23] MEDS ORDERED: POLYETHYLENE (MIRALAX) 17 GM PACK PO ONE (20:04)
[2023-04-23] MEDS ORDERED: BUMETANIDE 1 MG in SYRINGE 0 ML IV ONE (20:45)
[2023-04-24] MEDS: LEVOTHYROXINE SODIUM 150 MCG TABLET PO SCH (05:33)
[2023-04-24 07:07] LABS: BUN Creatinine Ratio 32.9 (10-20); Creatinine Clr Calc Pharmacy 69.3 ml/min; Est GFR (African American) 77.7 ml/min; Magnesium 1.6 mg/dl (1.7-2.4); Potassium 3.5 mmol/L (3.5-5.1)
[2023-04-24] MEDS ORDERED: MAGNESIUM SULFATE / D5W 1 GM/100 ML BAG IV ONE ×2 (08:00→18:26)
[2023-04-24] MEDS: INSULIN ASPART PER UNIT CHARGE SC SCH ×4 (08:42→20:28)
[2023-04-24] MEDS: LANTUS PER UNIT CHARGE SQ SCH ×2 (08:43→20:28)
[2023-04-24] MEDS: FLUTICASONE/VILANTEROL 200/25MCG 14 PUFFS/INHALER INH SCH (08:44)
[2023-04-24] MEDS: SENNA 8.6 MG TAB PO SCH (08:44)
[2023-04-24] MEDS: BUMETANIDE 1 MG TAB PO SCH ×2 (08:44→20:28)
[2023-04-24] MEDS: VALSARTAN/SACUBITRIL 51/49 MG TAB PO SCH ×2 (08:45→20:29)
[2023-04-24] MEDS: SPIRONOLACTONE 12.5 MG TAB PO SCH (08:45)
[2023-04-24] MEDS: METOPROLOL SUCC 25MG EXT REL TAB PO SCH (08:45)
[2023-04-24] MEDS: APIXABAN 2.5 MG TAB PO SCH ×2 (08:47→20:21)
[2023-04-24] MEDS: POLYETHYLENE (MIRALAX) 17 GM PACK PO SCH (08:48)
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
[2023-04-25] MEDS: LEVOTHYROXINE SODIUM 150 MCG TABLET PO SCH (06:35)
[2023-04-25] MEDS: VALSARTAN/SACUBITRIL 51/49 MG TAB PO SCH (08:22)
[2023-04-25] MEDS: SPIRONOLACTONE 12.5 MG TAB PO SCH (08:22)
[2023-04-25] MEDS: POLYETHYLENE (MIRALAX) 17 GM PACK PO SCH (08:22)
[2023-04-25] MEDS: SENNA 8.6 MG TAB PO SCH (08:22)
[2023-04-25] MEDS: METOPROLOL SUCC 25MG EXT REL TAB PO SCH (08:22)
[2023-04-25] MEDS: BUMETANIDE 1 MG TAB PO SCH (08:23)
[2023-04-25] MEDS: FLUTICASONE/VILANTEROL 200/25MCG 14 PUFFS/INHALER INH SCH (08:23)
[2023-04-25] MEDS: APIXABAN 2.5 MG TAB PO SCH (08:23)
[2023-04-25] MEDS: INSULIN ASPART PER UNIT CHARGE SC SCH ×2 (08:41→11:31)
[2023-04-25] MEDS: LANTUS PER UNIT CHARGE SQ SCH (08:41)
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
== END 2023-04-25 13:45 | disposition home or self-care (01) | DRG 291 ==
LOC: ED 10:54 → SUATTDRO 19:53 → 2N 19:53

== ENCOUNTER 2023-05-25 01:57 | Inpatient (IN) ==
[2023-05-25] MEDS ORDERED: ONDANSETRON INJ 2 MG/ML 2 ML VIAL ONE (02:04)
[2023-05-25] MEDS ORDERED: BUMETANIDE 2 MG in SYRINGE 0 ML IV ONE (02:15)
[2023-05-25] MEDS ORDERED: LABETALOL HCL IV 5 MG/ML 20ML IV STA (02:29)
[2023-05-25 02:32] LABS: Basophils # (auto) 0.04 K/uL (0-0.2); Basophils % (auto) 0.5 %; Eosinophils # (auto) 0.16 K/uL (0-0.50); Eosinophils % (auto) 2.1 %; Hematocrit (blood only) 32.2 % (37.0-47.0); Hemoglobin 10.1 g/dl (12.0-16.0); Immature Granulocytes # (auto) 0.02 K/uL (0.01-0.20); Immature Granulocytes % (auto) 0.3 %; Lymphocytes # (auto) 1.11 K/uL (1.2-3.4); Lymphocytes % (auto) 14.8 %; Mean Corpuscular Hemoglobin 27.7 pg (25.0-34.0); Mean Corpuscular Hgb Conc 31.4 g/dL (32.0-36.0); Mean Corpuscular Volume 88.5 fL (80.0-100.0); Mean Platelet Volume 10.7 fL (9.4-12.4); Monocytes # (auto) 0.63 K/uL (0.11-0.59); Monocytes % (auto) 8.4 %; Neutrophils # (auto) 5.56 K/uL (1.40-6.50); Neutrophils % (auto) 73.9 %; Platelet Count 296 K/uL (130-400); RDW Coefficient of Variation 14.2 % (11.5-14.5); RDW Standard Deviation 45.7 fL (36.4-46.3); Red Blood Count 3.64 M/uL (4.20-5.40); White Blood Count 7.52 K/ul (4.8-10.8)
--- NOTE | 2023-05-25 02:33 | Emergency Department Note ---
Impression & Plan SOB (shortness of breath), Hypertension, Pleural effusion, CHF (congestive heart failure), Tachycardia ED Provider Note NAME: LACI SOLITARIO AGE: 77 SEX: F : 1945 ARRIVES VIA: Ambulance INFORMANT: [Patient][ems] ED PROVIDER(S): [Michelet Cook MD] CHIEF COMPLAINT: Shortness of breath HISTORY OF PRESENT ILLNESS: The patient is a 77-year-old female with a history of CHF and noncompliance with her medications. The patient states that she had her medications switched with her last hospitalization and she does not think these are working as well. She is feeling more and more short of breath. She is now using oxygen. She has noticed increased pedal edema. She presents tonight complaining of increasing dyspnea to the point where she feels unsafe at home. Patient does admit to cough. She coughs sometimes to the point of vomiting. There has been no fever. No diarrhea. The patient did not take her diuretic yet this morning. PMHx/PSHx: See Below SOCIAL HISTORY: See Below. PHYSICAL EXAM: GENERAL: Patient is in no acute distress. HEENT: No acute trauma, normocephalic atraumatic, mucous membranes moist, no nasal congestion. NECK: No stridor, no adenopathy, no meningismus, trachea is midline. LUNGS: Crackles to the lungs bilaterally worse on the left with some diminished breath sounds on the left. No wheezing. No respiratory distress. HEART: Mildly tachycardic with a regular rhythm, subtle systolic murmur. ABDOMEN: Soft, nontender, bowel sounds positive, no peritonitis. EXTREMITIES: No cyanosis, marked bilateral pedal edema with some chronic skin change, full range of motion of all the joints without pain or difficulty, no signs for acute trauma. NEUROLOGIC: Oriented x 3, no acute motor or sensory deficits, no focal weakness. SKIN: No rash, no jaundice, no diaphoresis. DIFFERENTIAL DIAGNOSIS: CHF, fluid overload, pleural effusion, pneumonia, pneumothorax, anemia, electrolyte imbalance, dysrhythmia or PR, among others. EMERGENCY DEPARTMENT COURSE/PROCEDURES: Prior/Outside records reviewed: Recent discharge summary. ECG per my interpretation: Indication was shortness of breath. The ECG shows a sinus tachycardia with a rate of 121. There is some diffuse baseline artifact. There is some nonspecific change. There is an old septal infarct. There is no ST elevation. No PVCs. The QTc is 423. Continuous Cardiac Monitoring per my interpretation: An order was placed for continuous cardiac monitoring. The monitor shows a rate of 105 with sinus tachycardia. Critical Care Note: I have personally spent 47 minutes of critical care time in the direct management of this patient. This includes bedside care, interpretation of diagnostic studies, and testing, discussion with consultants, patient, and family members, and other required patient management activities. This 47 minutes is in excess of all separately billable procedures. MEDICAL DECISION MAKING: There is no leukocytosis. The patient is anemic but she carries a history of anemia and her value today is at her typical baseline. There is a normal platelet count. No coagulopathy. No renal failure or significant electrolyte abnormality. No concerning liver enzyme elevation. ECG shows a sinus tachycardia, no obvious acute ST elevation. Cardiac enzyme testing x 1 is not consistent with acute cardiac injury. Chest film per my review does show some CHF with an enlarging left pleural effusion. The BNP is elevated consistent with some CHF and fluid overload. COVID test returned negative. On exam, the patient did have crackles consistent with CHF. She had lymphedema. The patient received 10 mg of IV labetalol for the higher blood pressure and tachycardia. She was given IV Bumex, 2 mg. She received Zofran IV for nausea. The patient's blood pressure and heart rate have improved, she is currently stable, she is doing well with nasal cannula O2 supplementation. Patient is fluid overloaded. She has CHF and an enlarging left pleural effusion. She is in need of a hospital stay, diuresis and possibly a thoracentesis. I did speak with the patient and case management, the on-call hospitalist was consulted. DISPOSITION: Patient's presentation and findings warrant a hospital stay. Past Med/Surg History Medical History (HFpEF) heart failure with preserved ejection fraction Acute and chronic respiratory failure with hypoxia Acute diastolic (congestive) heart failure HX Acute on chronic heart failure with preserved ejection fraction (HFpEF) Acute UTI Advanced care planning/counseling discussion Ambulatory dysfunction Asthma Chest pain hx-"more pleuritic pain, not cardiac related" CHF exacerbation HX-RECENTLY Chronic edema Chronic respiratory failure with hypoxia, on home O2 therapy O2 prn at 2L COPD (chronic obstructive pulmonary disease) Diabetes mellitus Diabetes mellitus with albuminuria Diastolic heart failure HX Discussion about advance care planning held with family member Dyslipidemia Elevated serum globulin level Encounter for hospice care discussion Financial difficulties Gait abnormality History of ectopic History of seizures as a child HTN (hypertension) HTN (hypertension) Hx of papillary thyroid carcinoma Hx of pleurisy Hx of thyroid cancer Hydronephrosis, bilateral Hypertension Hypokalemia Hypomagnesemia Hypothyroidism Hypothyroidism, postablative Lower extremity edema Lymphedema Multiple drug allergies Obstructive pattern present on pulmonary function testing Palliative care by specialist Pleurisy without effusion have been hospitalized 4x in the past year for this Pleuritic chest pain 4x in the past year Renal cyst, left 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 Vitamin D deficiency Wheelchair bound Surgical History History of D&C Hx of brain surgery 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 during the procedure Hx of section Hx of thyroidectomy Family History Father Stroke Mother Dementia Diabetes Sister Macular degeneration Brother Macular degeneration Other TIA (transient ischemic attack) Denies family history of Ovarian cancer Prostate cancer Myocardial infarction Breast cancer Colorectal cancer Social History Smoking Status: Unknown if ever smoked Second Hand Exposure: No; Do You Dip or Chew Tobacco: No; Hx Alcohol Use: No Hx Substance Use: No Preferred Language: [place] Communication Ability: Effective Visual Impairment: No Limitations Hearing Ability: Normal Rd Lab Technician Required: No Beliefs That Will Affect Care: Hoahaoism Hoahaoism Beliefs: 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, 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 marital status: / Current Living Situation: Spouse Current Living Situation Comment: Lives at home alone current occupational status: retired 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 Feels Safe at Home: Yes Childhood Exposure to Second-Hand Smoke: No Diet: regular Dental Care, Regularly: Yes Physical Activity Frequency: Does not Exercise Seatbelt Use: always Sunscreen Use: No Assistive Devices: Glasses, Lift Chair, Stair Lift and Wheelchair Allergies Allergies Allergy/AdvReac Type Severity Reaction Status Date / Time aspirin Allergy Severe HIVES; Verified 05/25/23 02:28 DIFFICULTY BREATHING colchicine Allergy Severe Difficulty Verified 05/25/23 02:28 Breathing Iodinated Contrast Media Allergy Intermediate Rash Verified 05/25/23 02:28 aspartame Allergy Unknown Unknown Verified 05/25/23 02:28 Benzodiazepines Allergy Unknown Unknown Verified 05/25/23 02:28 diltiazem Allergy Unknown UNKNOWN Verified 05/25/23 02:28 REACTION doxycycline Allergy Unknown Unknown Verified 05/25/23 02:28 melon Allergy Unknown Unknown Verified 05/25/23 02:28 nifedipine Allergy Unknown UNKNOWN Verified 05/25/23 02:28 REACTION simvastatin Allergy Unknown UNKNOWN Verified 05/25/23 02:28 REACTION PER PT sucralose Allergy Unknown Unknown Verified 05/25/23 02:28 vancomycin Allergy Unknown UNKNOWN Verified 05/25/23 02:28 REACTION Home Meds Home Medications Medication Instructions Recorded Confirmed acetaminophen 500 mg tablet 1,000 mg PO Q8H PRN Pain 01/27/23 05/25/23 (Tylenol Extra Strength) insulin detemir U-100 100 unit/mL 30 unit subcut QAM 01/27/23 05/25/23 (3 mL) subcutaneous pen triamcinolone acetonide 0.1 % 1 applic EXT BID PRN FLARE UPS 04/17/23 05/25/23 topical cream Previous Rx's Medication Instructions Recorded Spacer for Inhaler #1 ea 09/04/22 blood sugar diagnostic (OneTouch #100 ea 12/17/22 Verio test strips) pen needle, diabetic 32 gauge x #50 ea 12/17/2210/21" (BD Ultra-Fine Micro Pen Needle) albuterol sulfate 90 mcg/actuation 2 puff inhalation Q4H PRN 03/14/23 aerosol inhaler cough/wheeze/shortness of breath #18 grams albuterol sulfate 2.5 mg/0.5 mL 2.5 mg (0.5 mL) inhalation Q4H PRN 03/28/23 solution for nebulization shortness of breath or wheezing or cough #1 box potassium chloride 20 mEq oral 20 meq PO DAILY 30 days #30 ea 04/05/23 packet levothyroxine 150 mcg tablet 150 mcg PO DAILYBB #90 tabs 04/06/23 sacubitril 49 mg-valsartan 51 mg 1 tab PO BID #60 tabs 04/25/23 tablet (Entresto) bumetanide 2 mg tablet 2 mg PO DAILY #120 tabs 05/04/23 metoprolol succinate 25 mg 75 mg PO DAILY #90 tabs 05/04/23 tablet,extended release 24 hr spironolactone 25 mg tablet 25 mg PO DAILY #90 tabs 05/04/23 Results & Data (ED) Vital Signs Vital Signs - 24 hr 05/25/23 01:50 05/25/23 01:50 05/25/23 01:50 Pulse Rate 121 H Respiratory Rate 25 H Respiratory Effort / Characteristics Accessory Muscle Use Short of Breath Blood Pressure 188/131 H Blood Pressure Mean 150 Pulse Oximetry 85 L 95 Oxygen Delivery Method Room Air Nasal Cannula Nasal Cannula Oxygen Flow Rate 5 3 Sepsis Recent Fever Within 48 Hours No Sepsis New/Unexplained Change in Mental Status No Sepsis Action Taken by Nursing No Action Required Oxygen Flow Rate - Titration 5 Pulse Oximetry Post Tiitration 4 L 05/25/23 02:16 05/25/23 02:30 05/25/23 02:31 Pulse Rate 105 H 103 H 103 H Respiratory Rate 25 H 23 Respiratory Effort / Characteristics Blood Pressure 190/78 H Blood Pressure Mean 115 Pulse Oximetry 94 99 98 Oxygen Delivery Method Nasal Cannula Nasal Cannula Nasal Cannula Oxygen Flow Rate 3 5 5 Sepsis Recent Fever Within 48 Hours Sepsis New/Unexplained Change in Mental Status Sepsis Action Taken by Nursing Oxygen Flow Rate - Titration Pulse Oximetry Post Tiitration 05/25/23 02:56 05/25/23 03:20 Pulse Rate 104 H 95 H Respiratory Rate Respiratory Effort / Characteristics Blood Pressure 190/78 H 174/82 H Blood Pressure Mean Pulse Oximetry Oxygen Delivery Method Oxygen Flow Rate Sepsis Recent Fever Within 48 Hours Sepsis New/Unexplained Change in Mental Status Sepsis Action Taken by Nursing Oxygen Flow Rate - Titration Pulse Oximetry Post Tiitration Home Medications Current Medication List: was personally reviewed by me Laboratory Data Attestation: I reviewed the patient's lab results. 05/25/23 02:00 05/25/23 02:00 Lab Results 05/25/23 05/25/23 05/25/23 Range/Units 02:00 02:00 02:00 WBC 7.52 (4.8-10.8) K/ul RBC 3.64 L (4.20-5.40) M/uL Hgb 10.1 L (12.0-16.0) g/dl Hct 32.2 L (37.0-47.0) % MCV 88.5 (80.0-100.0) fL MCH 27.7 (25.0-34.0) pg MCHC 31.4 L (32.0-36.0) g/dL RDW Std Deviation 45.7 (36.4-46.3) fL RDW Coeff of Smith 14.2 (11.5-14.5) % Plt Count 296 (130-400) K/uL MPV 10.7 (9.4-12.4) fL Immature Gran % (Auto) 0.3 % Neut % (Auto) 73.9 % Lymph % (Auto) 14.8 % Richardson % (Auto) 8.4 % Eos % (Auto) 2.1 % Baso % (Auto) 0.5 % Neut # (Auto) 5.56 (1.40-6.50) K/uL Lymph # (Auto) 1.11 L (1.2-3.4) K/uL Richardson # (Auto) 0.63 H (0.11-0.59) K/uL Eos # (Auto) 0.16 (0-0.50) K/uL Baso # (Auto) 0.04 (0-0.2) K/uL Immature Gran # (Auto) 0.02 (0.01-0.20) K/uL PT 10.5 (9.0-12.0) Seconds INR 1.0 (0.9-1.1) APTT 27.5 (21.0-31.0) Seconds PTT Ratio 1.0 Sodium 136 (136-145) mmol/L Potassium 4.3 (3.5-5.1) mmol/L Chloride 96 L (98-107) mmol/L Carbon Dioxide 35 H (21-32) mmol/L Anion Gap 5 (3-11) BUN 20 (6-23) mg/dl Creatinine 0.85 (0.6-1.2) mg/dl Est Cr Clr Drug Dosing 70.7 ml/min Est GFR ( Amer) 77.7 ml/min Est GFR (Non-Af Amer) 67.0 ml/min BUN/Creatinine Ratio 23.5 H (10-20) Glucose 219 H (70-99(Fasting)) mg/dl Calcium 8.7 (8.6-10.3) mg/dl Magnesium 2.0 (1.7-2.4) mg/dl Total Bilirubin 0.4 (0.2-1.0) mg/dl AST 16 (13-39) U/L ALT 12 (7-52) U/L Alkaline Phosphatase 73 (34-104) U/L Troponin I High Sens 11.7 (0-14) pg/ml B-Natriuretic Peptide (0-100) pg/ml Total Protein 7.3 (6.0-8.3) gm/dl Albumin 3.5 (3.4-5.0) gm/dl Globulin 3.8 (2.5-4.0) gm/dl Albumin/Globulin Ratio 0.9 (0.9-2) SARS-CoV-2, RNA, NAAT (NEGATIVE) 05/25/23 05/25/23 Range/Units 02:00 02:30 WBC (4.8-10.8) K/ul RBC (4.20-5.40) M/uL Hgb (12.0-16.0) g/dl Hct (37.0-47.0) % MCV (80.0-100.0) fL MCH (25.0-34.0) pg MCHC (32.0-36.0) g/dL RDW Std Deviation (36.4-46.3) fL RDW Coeff of Smith (11.5-14.5) % Plt Count (130-400) K/uL MPV (9.4-12.4) fL Immature Gran % (Auto) % Neut % (Auto) % Lymph % (Auto) % Richardson % (Auto) % Eos % (Auto) % Baso % (Auto) % Neut # (Auto) (1.40-6.50) K/uL Lymph # (Auto) (1.2-3.4) K/uL Richardson # (Auto) (0.11-0.59) K/uL Eos # (Auto) (0-0.50) K/uL Baso # (Auto) (0-0.2) K/uL Immature Gran # (Auto) (0.01-0.20) K/uL PT (9.0-12.0) Seconds INR (0.9-1.1) APTT (21.0-31.0) Seconds PTT Ratio Sodium (136-145) mmol/L Potassium (3.5-5.1) mmol/L Chloride (98-107) mmol/L Carbon Dioxide (21-32) mmol/L Anion Gap (3-11) BUN (6-23) mg/dl Creatinine (0.6-1.2) mg/dl Est Cr Clr Drug Dosing ml/min Est GFR ( Amer) ml/min Est GFR (Non-Af Amer) ml/min BUN/Creatinine Ratio (10-20) Glucose (70-99(Fasting)) mg/dl Calcium (8.6-10.3) mg/dl Magnesium (1.7-2.4) mg/dl Total Bilirubin (0.2-1.0) mg/dl AST (13-39) U/L ALT (7-52) U/L Alkaline Phosphatase (34-104) U/L Troponin I High Sens (0-14) pg/ml B-Natriuretic Peptide 350 H (0-100) pg/ml Total Protein (6.0-8.3) gm/dl Albumin (3.4-5.0) gm/dl Globulin (2.5-4.0) gm/dl Albumin/Globulin Ratio (0.9-2) SARS-CoV-2, RNA, NAAT NEGATIVE (NEGATIVE) Administered Medications Discontinued Medications Bumetanide 2 mg/ Syringe 8 mls @ 4 mls/min IV ONE ONE Stop: 05/25/23 02:16 Last Admin: 05/25/23 02:56 Dose: 4 mls/min Documented By: PETER Labetalol HCl (Labetalol Hcl Iv 5 Mg/Ml 20ml) 10 mg IV NOW STA Stop: 05/25/23 02:30 Last Admin: 05/25/23 02:56 Dose: 10 mg Documented By: PETER Co-signed By: BRADLEY Ondansetron HCl (Ondansetron Inj 2 Mg/Ml 2 Ml Vial) Confirm Administered Dose 4 mg .ROUTE .STK-MED ONE Stop: 05/25/23 02:05 Last Admin: 05/25/23 02:07 Dose: 4 mg Documented By: DAMARIS Imaging Data My Impression: Chest x-ray per my review: Patient does have some mild CHF with enlarging left pleural effusion. There is no pneumothorax or pneumonia. Discharge Plan Visit Data Chief Complaint: Shortness of Breath/Dyspnea Stated Complaint: SHORTNESS OF BREATH ED Provider: Michelet Cook Discharge Problem: SOB (shortness of breath), Hypertension, Pleural effusion, CHF (congestive heart failure), Tachycardia Patient Disposition: Admitted As Inpatient Condition: Fair Forms Stand Alone Forms: My [facility] [employer] Prescriptions Prescriptions: No Action levothyroxine 150 mcg tablet 150 mcg PO DAILYBB Qty: 90 3RF bumetanide 2 mg tablet 2 mg PO DAILY Qty: 120 3RF Rx Instructions: May increase to 4 mg daily PRN metoprolol succinate 25 mg tablet extended release 24 hr 75 mg PO DAILY Qty: 90 3RF spironolactone 25 mg tablet 25 mg PO DAILY Qty: 90 3RF potassium chloride 20 mEq packet 20 meq PO DAILY 30 Days Qty: 30 2RF albuterol sulfate 90 mcg/actuation HFA aerosol inhaler 2 puff INHALATION Q4H PRN (Reason: cough/wheeze/shortness of breath) Qty: 18 1RF (DME) Spacer for Inhaler Misc See Rx Instructions .Route Qty: 1 0RF Rx Instructions: As directed acetaminophen [Tylenol Extra Strength] 500 mg tablet 1,000 mg PO Q8H PRN (Reason: Pain) insulin detemir U-100 100 unit/mL (3 mL) insulin pen 30 unit subcut QAM Patient Comments: takes late morning (DME) OneTouch Verio test strips Strip See Rx Instructions .ROUTE .MEDSUPPLY Qty: 100 3RF Rx Instructions: for once a day testing (DME) pen needle, diabetic [BD Ultra-Fine Micro Pen Needle] 32 gauge x 1/4" needle See Rx Instructions .ROUTE .MEDSUPPLY Qty: 50 0RF Rx Instructions: As directed albuterol sulfate 2.5 mg/0.5 mL solution for nebulization 2.5 mg inhalation Q4H PRN (Reason: shortness of breath or wheezing or cough) Qty: 1 0RF triamcinolone acetonide 0.1 % cream 1 applic EXT BID PRN (Reason: FLARE UPS) Rx Instructions: apply twice daily in thin amounts to scaly, dry skin on front of legs; use for 5-7 days only. Entresto 49-51 mg Tablet 1 tab PO BID Qty: 60 5RF Referrals Referrals: Luann France MD [Primary Care Provider] -
[2023-05-25 02:46] LABS: Albumin Globulin Ratio 0.9 (0.9-2); Albumin Level 3.5 gm/dl (3.4-5.0); BUN Creatinine Ratio 23.5 (10-20); Bilirubin,Total 0.4 mg/dl (0.2-1.0); Calcium 8.7 mg/dl (8.6-10.3); Creatinine Clr Calc Pharmacy 70.7 ml/min; Est GFR (African American) 77.7 ml/min; Globulin 3.8 gm/dl (2.5-4.0); Potassium 4.3 mmol/L (3.5-5.1); Total Protein 7.3 gm/dl (6.0-8.3)
[2023-05-25 02:52] LABS: Troponin I High Sensitivity 11.7 pg/ml (0-14)
[2023-05-25 03:09] LABS: Partial Thromboplastin Time 27.5 Seconds (21.0-31.0); Prothrombin Time 10.5 Seconds (9.0-12.0)
--- NOTE | 2023-05-25 03:25 | History & Physical Report ---
Date of Service May 25, 2023 Assessment & Plan (1) Acute HFrEF (heart failure with reduced ejection fraction): Plan: suspect acute exacerbation of HFrEF -Bumex 2mg IV BID -Monitor I/O, daily weights -Continue Metoprolol -Continue Entresto -Continue Spironolactone (2) Pleural effusion: Plan: Monitor effect of diuretic -Consider thoracentesis (3) COPD (chronic obstructive pulmonary disease): Plan: -Albuterol PRN (4) Hypothyroidism: Plan: -Continue Synthroid (5) Diabetes mellitus with albuminuria: Plan: -Lantus 10u BID -ISS History of Present Illness Chief Complaint: shortness of breath Primary Care Provider: Luann France MD Carli Logan is a 77yo female with multiple medical problems to include chronic hypoxic respiratory failure on supplemental O2 as needed, severe COPD (per pulmonary function testing 07/2022, FEV1 37), HFrEF (35-40% with global hypokinesis) with chronic hypervolemia, DM, HTN and Hypothyroidism presenting persistent shortness of breath. Patient was recently admitted to [facility] from 04/17/23 - 04/26/23 after presenting with dyspnea secondary to acute HFrEF. She was diuresed with Bumex. Her medications were changed on discharge to include increase in metoprolol to 75mg po daily, initiation of Entresto as well as Spironolactone. Patient reports she has not been doing well since her discharge. She feels that her new medications are not working well. Patient reports overall compliance with her medications but sometimes she does not take her diuretic as it interferes with her lifestyle. She reports ongoing dyspnea with PANDEY and orthopnea. She has been having cough productive for white sputum. This morning she was unable to breathe which prompted her to come to the ER. She denies fever, chills or wheeze. No additional complaints. In the ER she is afebrile, tachycardic, hypertensive, on 5L NC at present ER Course: Bumex 2mg IV Labetalol 10mg IV Allergies Allergy/AdvReac Type Severity Reaction Status Date / Time aspirin Allergy Severe HIVES; Verified 05/25/23 02:28 DIFFICULTY BREATHING colchicine Allergy Severe Difficulty Verified 05/25/23 02:28 Breathing Iodinated Contrast Media Allergy Intermediate Rash Verified 05/25/23 02:28 aspartame Allergy Unknown Unknown Verified 05/25/23 02:28 Benzodiazepines Allergy Unknown Unknown Verified 05/25/23 02:28 diltiazem Allergy Unknown UNKNOWN Verified 05/25/23 02:28 REACTION doxycycline Allergy Unknown Unknown Verified 05/25/23 02:28 melon Allergy Unknown Unknown Verified 05/25/23 02:28 nifedipine Allergy Unknown UNKNOWN Verified 05/25/23 02:28 REACTION simvastatin Allergy Unknown UNKNOWN Verified 05/25/23 02:28 REACTION PER PT sucralose Allergy Unknown Unknown Verified 05/25/23 02:28 vancomycin Allergy Unknown UNKNOWN Verified 05/25/23 02:28 REACTION Home Medications Medication Instructions Recorded Confirmed Type Spacer for Inhaler #1 ea 09/04/22 05/18/23 Rx blood sugar diagnostic (OneTouch #100 ea 12/17/22 05/18/23 Rx Verio test strips) pen needle, diabetic 32 gauge x #50 ea 12/17/22 05/18/23 Rx 1/4" (BD Ultra-Fine Micro Pen Needle) acetaminophen 500 mg tablet 1,000 mg PO Q8H PRN Pain 01/27/23 05/25/23 History (Tylenol Extra Strength) insulin detemir U-100 100 unit/mL 30 unit subcut QAM 01/27/23 05/25/23 History (3 mL) subcutaneous pen albuterol sulfate 90 mcg/actuation 2 puff inhalation Q4H PRN 03/14/23 05/25/23 Rx aerosol inhaler cough/wheeze/shortness of breath #18 grams albuterol sulfate 2.5 mg/0.5 mL 2.5 mg (0.5 mL) inhalation Q4H PRN 03/28/23 05/25/23 Rx solution for nebulization shortness of breath or wheezing or cough #1 box potassium chloride 20 mEq oral 20 meq PO DAILY 30 days #30 ea 04/05/23 05/25/23 Rx packet levothyroxine 150 mcg tablet 150 mcg PO DAILYBB #90 tabs 04/06/23 05/25/23 Rx triamcinolone acetonide 0.1 % 1 applic EXT BID PRN FLARE UPS 04/17/23 05/25/23 History topical cream sacubitril 49 mg-valsartan 51 mg 1 tab PO BID #60 tabs 04/25/23 05/25/23 Rx tablet (Entresto) bumetanide 2 mg tablet 2 mg PO DAILY #120 tabs 05/04/23 05/25/23 Rx metoprolol succinate 25 mg 75 mg PO DAILY #90 tabs 05/04/23 05/25/23 Rx tablet,extended release 24 hr spironolactone 25 mg tablet 25 mg PO DAILY #90 tabs 05/04/23 05/25/23 Rx Past Med/Surg History Medical History (HFpEF) heart failure with preserved ejection fraction Acute and chronic respiratory failure with hypoxia Acute diastolic (congestive) heart failure HX Acute on chronic heart failure with preserved ejection fraction (HFpEF) Acute UTI Advanced care planning/counseling discussion Ambulatory dysfunction Asthma Chest pain hx-"more pleuritic pain, not cardiac related" CHF exacerbation HX-RECENTLY Chronic edema Chronic respiratory failure with hypoxia, on home O2 therapy O2 prn at 2L COPD (chronic obstructive pulmonary disease) Diabetes mellitus Diabetes mellitus with albuminuria Diastolic heart failure HX Discussion about advance care planning held with family member Dyslipidemia Elevated serum globulin level Encounter for hospice care discussion Financial difficulties Gait abnormality History of ectopic History of seizures as a child HTN (hypertension) HTN (hypertension) Hx of papillary thyroid carcinoma Hx of pleurisy Hx of thyroid cancer Hydronephrosis, bilateral Hypertension Hypokalemia Hypomagnesemia Hypothyroidism Hypothyroidism, postablative Lower extremity edema Lymphedema Multiple drug allergies Obstructive pattern present on pulmonary function testing Palliative care by specialist Pleurisy without effusion have been hospitalized 4x in the past year for this Pleuritic chest pain 4x in the past year Renal cyst, left 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 Vitamin D deficiency Wheelchair bound Surgical History History of D&C Hx of brain surgery 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 during the procedure Hx of section Hx of thyroidectomy Family History Father Stroke Mother Dementia Diabetes Sister Macular degeneration Brother Macular degeneration Other TIA (transient ischemic attack) Denies family history of Ovarian cancer Prostate cancer Myocardial infarction Breast cancer Colorectal cancer Social History Smoking Status: Unknown if ever smoked Second Hand Exposure: No; Do You Dip or Chew Tobacco: No; Hx Alcohol Use: No Hx Substance Use: No Preferred Language: Bulgarian Communication Ability: Effective Visual Impairment: No Limitations Hearing Ability: Normal [employer] Bl[employer] Required: No Beliefs That Will Affect Care: Voodoo Voodoo Beliefs: 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, including 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 marital status: / Current Living Situation: Spouse Current Living Situation Comment: Lives at home alone current occupational status: retired 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 Feels Safe at Home: Yes Childhood Exposure to Second-Hand Smoke: No Diet: regular Dental Care, Regularly: Yes Physical Activity Frequency: Does not Exercise Seatbelt Use: always Sunscreen Use: No Assistive Devices: Glasses, Lift Chair, Stair Lift and Wheelchair Review of Systems Review of Systems: All systems reviewed & are unremarkable except as noted in HPI & below Physical Exam Physical Exam: General: patient resting comfortably, NAD, non-toxic in appearance, AA&O x 4 Skin: warm, dry, intact, no rashes or lesions HEENT: NC/AT, PERRL, EOMI, anicteric sclera, conjunctiva without injection, external ear normal to inspection and nontender, nares patent, moist mucus membranes, dentition intact, no oropharyngeal lesions, neck supple, trachea midline, no LAD, no thyromegaly, no JVD Heart: +S1/S2, regular, no m/r/g Lungs: equal air entry bilaterally, coarse breath sounds bilaterally with decreased breath sounds in left lung Abd: +BS, soft, NT/ND, no masses/organomegaly/ascites Ext: warm, 2+ pulses in UE/LE bilaterally,Chronic lymphedema with no obvious infection Neuro: nonfocal, patient AA&O x 4, speech intact, no facial droop, moving all extremities on command with equal strength 5/5 Results & Data Results & Data Vital Signs (Past 12 Hours) Vital Signs Pulse Resp BP Pulse Ox O2 Del Method O2 Flow Rate 05/25/23 03:20 95 H 174/82 H 05/25/23 02:56 104 H 190/78 H 05/25/23 02:31 103 H 23 190/78 H 98 Nasal Cannula 5 05/25/23 02:30 103 H 25 H 99 Nasal Cannula 5 05/25/23 02:16 105 H 94 Nasal Cannula 3 05/25/23 01:50 Nasal Cannula 3 05/25/23 01:50 121 H 25 H 188/131 H 95 Nasal Cannula 5 05/25/23 01:50 85 L Room Air Laboratory Results Laboratory Results WBC 7.52 K/ul (4.8-10.8) 05/25/23 02:00 RBC 3.64 M/uL (4.20-5.40) L 05/25/23 02:00 Hgb 10.1 g/dl (12.0-16.0) L 05/25/23 02:00 Hct 32.2 % (37.0-47.0) L 05/25/23 02:00 MCV 88.5 fL (80.0-100.0) 05/25/23 02:00 MCH 27.7 pg (25.0-34.0) 05/25/23 02:00 MCHC 31.4 g/dL (32.0-36.0) L 05/25/23 02:00 RDW Std Deviation 45.7 fL (36.4-46.3) 05/25/23 02:00 RDW Coeff of Smith 14.2 % (11.5-14.5) 05/25/23 02:00 Plt Count 296 K/uL (130-400) 05/25/23 02:00 MPV 10.7 fL (9.4-12.4) 05/25/23 02:00 Immature Gran % (Auto) 0.3 % 05/25/23 02:00 Neut % (Auto) 73.9 % 05/25/23 02:00 Lymph % (Auto) 14.8 % 05/25/23 02:00 [place] % (Auto) 8.4 % 05/25/23 02:00 Eos % (Auto) 2.1 % 05/25/23 02:00 Baso % (Auto) 0.5 % 05/25/23 02:00 Neut # (Auto) 5.56 K/uL (1.40-6.50) 05/25/23 02:00 Lymph # (Auto) 1.11 K/uL (1.2-3.4) L 05/25/23 02:00 [place] # (Auto) 0.63 K/uL (0.11-0.59) H 05/25/23 02:00 Eos # (Auto) 0.16 K/uL (0-0.50) 05/25/23 02:00 Baso # (Auto) 0.04 K/uL (0-0.2) 05/25/23 02:00 Immature Gran # (Auto) 0.02 K/uL (0.01-0.20) 05/25/23 02:00 PT 10.5 Seconds (9.0-12.0) 05/25/23 02:00 INR 1.0 (0.9-1.1) 05/25/23 02:00 APTT 27.5 Seconds (21.0-31.0) 05/25/23 02:00 PTT Ratio 1.0 05/25/23 02:00 Sodium 136 mmol/L (136-145) 05/25/23 02:00 Potassium 4.3 mmol/L (3.5-5.1) 05/25/23 02:00 Chloride 96 mmol/L (98-107) L 05/25/23 02:00 Carbon Dioxide 35 mmol/L (21-32) H 05/25/23 02:00 Anion Gap 5 (3-11) 05/25/23 02:00 BUN 20 mg/dl (6-23) 05/25/23 02:00 Creatinine 0.85 mg/dl (0.6-1.2) 05/25/23 02:00 Est Cr Clr Drug Dosing 70.7 ml/min 05/25/23 02:00 Est GFR ( Amer) 77.7 ml/min 05/25/23 02:00 Est GFR (Non-Af Amer) 67.0 ml/min 05/25/23 02:00 BUN/Creatinine Ratio 23.5 (10-20) H 05/25/23 02:00 Glucose 219 mg/dl (70-99(Fasting)) H 05/25/23 02:00 Calcium 8.7 mg/dl (8.6-10.3) 05/25/23 02:00 Magnesium 2.0 mg/dl (1.7-2.4) 05/25/23 02:00 Total Bilirubin 0.4 mg/dl (0.2-1.0) 05/25/23 02:00 AST 16 U/L (13-39) 05/25/23 02:00 ALT 12 U/L (7-52) 05/25/23 02:00 Alkaline Phosphatase 73 U/L (34-104) 05/25/23 02:00 Troponin I High Sens 11.7 pg/ml (0-14) 05/25/23 02:00 B-Natriuretic Peptide 350 pg/ml (0-100) H 05/25/23 02:00 Total Protein 7.3 gm/dl (6.0-8.3) 05/25/23 02:00 Albumin 3.5 gm/dl (3.4-5.0) 05/25/23 02:00 Globulin 3.8 gm/dl (2.5-4.0) 05/25/23 02:00 Albumin/Globulin Ratio 0.9 (0.9-2) 05/25/23 02:00 SARS-CoV-2, RNA, NAAT NEGATIVE (NEGATIVE) 05/25/23 02:30 Diagnostic Findings CXR - appears to have progression of left sided pleural effusion PG Care Time/CCT Total # of Minutes Spent Total Time Spent with Patient: Total time spent is greater than 50% in coordination of care (as documented) at patient's floor/unit and/or counseling patient: Coding Level of Care Code 54311 INT INP/OBS CARE 3/75MIN Diagnoses Acute HFrEF (heart failure with reduced ejection fraction) I50.21 Pleural effusion J90 COPD (chronic obstructive pulmonary disease) J44.9 Hypothyroidism E03.9 Diabetes mellitus with albuminuria E11.29; R80.9
[2023-05-25] MEDS ORDERED: CARBOHYDRATES FOR HYPOGLYCEMIA PO PRN (04:20)
[2023-05-25] MEDS ORDERED: GLUCOSE 10 TAB/TUBE PO PRN (04:20)
[2023-05-25] MEDS ORDERED: DOCUSATE SODIUM 100 MG CAP PO PRN (04:20)
[2023-05-25] MEDS ORDERED: ALBUTEROL HFA 8 GM INHALER INH PRN (04:20)
[2023-05-25] MEDS ORDERED: ONDANSETRON INJ 2 MG/ML 2 ML VIAL IV PRN (04:20)
[2023-05-25] MEDS ORDERED: GLUCAGON FOR INJ 1 MG VIAL SQ PRN (04:20)
[2023-05-25] MEDS ORDERED: GLUCOSE 40% GEL 15 GM TUBE PO PRN (04:20)
[2023-05-25] MEDS ORDERED: POLYETHYLENE (MIRALAX) 17 GM PACK PO PRN (04:20)
[2023-05-25] MEDS ORDERED: DEXTROSE 50% 50 ML SYRINGE IV PRN (04:20)
[2023-05-25] MEDS ORDERED: INSULIN ASPART PER UNIT CHARGE SC STA (05:49)
[2023-05-25] MEDS: LEVOTHYROXINE SODIUM 150 MCG TABLET PO SCH (06:07)
--- NOTE | 2023-05-25 07:53 | XRay Report ---
XR chest 1V portable HISTORY: Dyspnea COMPARISON: Chest 04/17/2023. FINDINGS: No pneumothorax. Moderate left pleural effusion has slightly increased in size. Left basila r densities are again noted. This favors atelectasis from the pleural effusion. The cardiac silhouett e remains mildly enlarged. No acute fractures identified. Mild interstitial pulmonary edema persists. No new focal lung consolidations. There is a trace right pleural effusion, unchanged. IMPRESSION: 1. Cardiomegaly and mild interstitial pulmonary edema, unchanged. 2. Slight increase in size in the moderate left pleural effusion. Left basilar densities persist. ACT 112: Negative or not required by law. Electronically signed by: Edgar Meek M.D. 05/25/2023 7:51 AM
[2023-05-25] MEDS: INSULIN ASPART PER UNIT CHARGE SC SCH ×4 (08:43→21:25)
[2023-05-25] MEDS: LANTUS PER UNIT CHARGE SQ SCH ×2 (08:44→21:26)
[2023-05-25] MEDS: BUMETANIDE 2 MG in SYRINGE 0 ML IV SCH ×2 (08:44→18:01)
[2023-05-25] MEDS: POTASSIUM CHLORIDE PWD 20 MEQ PACK PO SCH (08:52)
[2023-05-25] MEDS: SPIRONOLACTONE 25 MG TAB PO SCH (08:52)
[2023-05-25] MEDS: METOPROLOL SUCC 25MG EXT REL TAB PO SCH (08:52)
[2023-05-25] MEDS: VALSARTAN/SACUBITRIL 51/49 MG TAB PO SCH ×2 (08:53→21:27)
[2023-05-25] MEDS: ALBUTEROL 0.083% NEBU SOLN 3 ML VIAL INH PRN ×2 (11:14→23:27)
--- NOTE | 2023-05-25 12:00 | Electrocardiogram Report ---
Test Reason : Blood Pressure : / mmHG Vent. Rate : 121 BPM Atrial Rate : 121 BPM P-R Int : 174 ms QRS Dur : 080 ms QT Int : 298 ms P-R-T Axes : 072 -36 075 degrees QTc Int : 423 ms Sinus tachycardia Possible Left atrial enlargement Left axis deviation Low voltage QRS Poor R wave progression, consider anterior CT vs. lead placement vs. LVH Nonspecific ST abnormality Abnormal ECG When compared with ECG of 17-APR-2023 11:04, T wave amplitude has decreased in Anterior leads T wave inversion no longer evident in Lateral leads Confirmed by Klever Plata ([id number]) on 05/25/2023 12:00:27 PM Referred By: REFERRED SELF Confirmed By:Laurent Plata
--- NOTE | 2023-05-25 16:13 | Communication Note ---
Date of Service: May 25, 2023 Please see today's H+P for full assessment and plan except as otherwise stated here. Continue Bumex 2mg IV BID with Purewick. Discussed importance of adherence to prescribed diuretic dosing at home, she is concerned that with prescribed dosing she has poor quality of life. However, she does not want to end up back in the hospital. We discussed wearing oxygen at all times, and perhaps considering a second dose of Bumex (from her 1mg that she does take at home) on days where she is feeling a bit more breathless. She expressed understanding and amenability to this. However, later in day self-transferred from bed to chair and felt SOB, noted by nursing not to have her oxygen on. Discussed with patient's daughter my concerns about her home safety given her non-compliance with medications and oxygen. Patient's daughter is also concerned, reports that her mom is stubborn but she will try to impress the importance of these things. Could consider Purewick at night and Depends during the day to minimize adverse effect on her quality of life, unsure of cost of Purewick. Will discuss with MARANDA.
[2023-05-25 16:22] LABS: BUN Creatinine Ratio 22.7 (10-20); Calcium 8.7 mg/dl (8.6-10.3); Creatinine Clr Calc Pharmacy 66.4 ml/min; Est GFR (African American) 74.5 ml/min; Est GFR (Non-African American) 64.3 ml/min; Potassium 4.1 mmol/L (3.5-5.1)
[2023-05-26] MEDS: LEVOTHYROXINE SODIUM 150 MCG TABLET PO SCH (06:00)
[2023-05-26] MEDS: METOPROLOL SUCC 25MG EXT REL TAB PO SCH (08:46)
[2023-05-26] MEDS: SPIRONOLACTONE 25 MG TAB PO SCH (08:46)
[2023-05-26] MEDS: VALSARTAN/SACUBITRIL 51/49 MG TAB PO SCH ×2 (08:46→21:59)
[2023-05-26] MEDS: BUMETANIDE 2 MG in SYRINGE 0 ML IV SCH ×2 (08:47→16:57)
[2023-05-26] MEDS: POTASSIUM CHLORIDE PWD 20 MEQ PACK PO SCH (08:47)
[2023-05-26] MEDS: INSULIN ASPART PER UNIT CHARGE SC SCH ×4 (08:47→21:59)
[2023-05-26] MEDS: LANTUS PER UNIT CHARGE SQ SCH ×2 (08:56→21:59)
[2023-05-26 09:00] LABS: Hematocrit (blood only) 30.3 % (37.0-47.0); Hemoglobin 9.6 g/dl (12.0-16.0); Mean Corpuscular Hemoglobin 27.8 pg (25.0-34.0); Mean Corpuscular Hgb Conc 31.7 g/dL (32.0-36.0); Mean Corpuscular Volume 87.8 fL (80.0-100.0); Mean Platelet Volume 10.1 fL (9.4-12.4); Platelet Count 269 K/uL (130-400); RDW Coefficient of Variation 14.2 % (11.5-14.5); RDW Standard Deviation 45.4 fL (36.4-46.3); Red Blood Count 3.45 M/uL (4.20-5.40); White Blood Count 7.83 K/ul (4.8-10.8)
--- NOTE | 2023-05-26 09:19 | Hospitalist Progress Note ---
Date of Service May 26, 2023 Assessment & Plan (1) Acute HFrEF (heart failure with reduced ejection fraction): Plan: Acute exacerbation of chronic HFrEF -Continue Bumex 2mg IV BID -Monitor I/O, daily weights; good output overnight with 1.5L net negative -Continue Metoprolol, Entresto, Spironolactone (2) Pleural effusion: Plan: Monitor effect of diuretic -Consider thoracentesis if breathing not improving or pain worsening, patient declines Pulm eval right now -Patient reports history of pleurisy in same lung, and "whenever she gets sick" she gets pleural effusion on that side -Declines pain medication for pleuritic pain, encouraged pain control and incentive spirometry as I am concerned that her shallow breaths will potentiate atelectasis and further worsen her breathing -No evidence of infection, CBC reviewed with normal WBC count -Repeat CXR tomorrow (3) COPD (chronic obstructive pulmonary disease): Plan: -Albuterol PRN (4) Hypothyroidism: Plan: -Continue Synthroid (5) Diabetes mellitus with albuminuria: Plan: -Lantus 10u BID -ISS Plan PT and OT ordered, patient has historically refused rehab even when recommended but I am concerned about overall debility and deconditioning. Admission and Anticipated Discharge Date Admission Date: May 25, 2023 Subjective Left chest pleuritic pain today, declines PO pain medications and offer of discussion with Pulm for pleural effusion drainage. Otherwise denies complaints. Physical Exam Constitutional: WD/WN, vitals as above Respiratory: shallower breaths due to pain, not tachypneic, crackles L>R lung bases Cardiovascular: RRR, no murmur, no edema Gastrointestinal (Abdomen): normal bowel sounds, soft, nontender, no hepatosplenomegaly Skin: no rashes, warm and dry Psychiatric: A+Ox3, euthymic affect Results & Data Results & Data Vital Signs (Past 12 Hours) Vital Signs Temp Pulse Pulse Pulse Resp BP Pulse Ox 05/26/23 07:30 36.8 C 85 16 148/22 H 94 05/26/23 07:30 81 05/26/23 03:54 36.9 C 84 20 151/68 H 95 05/26/23 00:01 95 05/25/23 23:28 80 20 97 05/25/23 23:26 83 05/25/23 23:08 05/25/23 23:08 36.6 C 85 20 174/77 H 100 O2 Del Method O2 Flow Rate 05/26/23 07:30 Nasal Cannula 2 05/26/23 07:30 05/26/23 03:54 Nasal Cannula 2 05/26/23 00:01 Nasal Cannula 2 05/25/23 23:28 Nasal Cannula 2 05/25/23 23:26 05/25/23 23:08 Oxymask 5 05/25/23 23:08 Oxymask 5 PG Care Time/CCT Total # of Minutes Spent Total Time Spent with Patient: Total time spent is greater than 50% in coordination of care (as documented) at patient's floor/unit and/or counseling patient: Coding Level of Care Code 74144 SUB INP/OBS CARE 235MIN Diagnoses Acute HFrEF (heart failure with reduced ejection fraction) I50.21 Pleural effusion J90 COPD (chronic obstructive pulmonary disease) J44.9 Hypothyroidism E03.9 Diabetes mellitus with albuminuria E11.29; R80.9
[2023-05-26 09:30] LABS: BUN Creatinine Ratio 25.3 (10-20); Calcium 8.4 mg/dl (8.6-10.3); Creatinine Clr Calc Pharmacy 70.4 ml/min; Est GFR (African American) 79.9 ml/min; Potassium 4.2 mmol/L (3.5-5.1)
[2023-05-26 16:29] LABS: BUN Creatinine Ratio 28.2 (10-20); Calcium 8.4 mg/dl (8.6-10.3); Creatinine Clr Calc Pharmacy 74.9 ml/min; Est GFR (African American) 86.2 ml/min; Est GFR (Non-African American) 74.4 ml/min; Potassium 4.1 mmol/L (3.5-5.1)
[2023-05-26] MEDS: ALBUTEROL 0.083% NEBU SOLN 3 ML VIAL INH PRN (23:16)
[2023-05-27] MEDS: LEVOTHYROXINE SODIUM 150 MCG TABLET PO SCH (05:48)
[2023-05-27 06:28] LABS: Basophils # (auto) 0.04 K/uL (0-0.2); Basophils % (auto) 0.5 %; Eosinophils # (auto) 0.19 K/uL (0-0.50); Eosinophils % (auto) 2.6 %; Hematocrit (blood only) 31.4 % (37.0-47.0); Hemoglobin 9.9 g/dl (12.0-16.0); Immature Granulocytes # (auto) 0.01 K/uL (0.01-0.20); Immature Granulocytes % (auto) 0.1 %; Lymphocytes # (auto) 1.05 K/uL (1.2-3.4); Lymphocytes % (auto) 14.2 %; Mean Corpuscular Hemoglobin 27.8 pg (25.0-34.0); Mean Corpuscular Hgb Conc 31.5 g/dL (32.0-36.0); Mean Corpuscular Volume 88.2 fL (80.0-100.0); Mean Platelet Volume 10.3 fL (9.4-12.4); Monocytes # (auto) 0.63 K/uL (0.11-0.59); Monocytes % (auto) 8.5 %; Neutrophils # (auto) 5.47 K/uL (1.40-6.50); Neutrophils % (auto) 74.1 %; Platelet Count 289 K/uL (130-400); RDW Coefficient of Variation 14.1 % (11.5-14.5); RDW Standard Deviation 45.3 fL (36.4-46.3); Red Blood Count 3.56 M/uL (4.20-5.40); White Blood Count 7.39 K/ul (4.8-10.8)
[2023-05-27 06:33] LABS: BUN Creatinine Ratio 26.3 (10-20); Calcium 8.6 mg/dl (8.6-10.3); Creatinine Clr Calc Pharmacy 76.8 ml/min; Est GFR (African American) 88.9 ml/min; Est GFR (Non-African American) 76.7 ml/min; Potassium 3.7 mmol/L (3.5-5.1)
[2023-05-27] MEDS: BUMETANIDE 2 MG in SYRINGE 0 ML IV SCH ×2 (07:58→17:59)
[2023-05-27] MEDS: POTASSIUM CHLORIDE PWD 20 MEQ PACK PO SCH (07:58)
[2023-05-27] MEDS: METOPROLOL SUCC 25MG EXT REL TAB PO SCH (07:58)
[2023-05-27] MEDS: SPIRONOLACTONE 25 MG TAB PO SCH (07:58)
[2023-05-27] MEDS: VALSARTAN/SACUBITRIL 51/49 MG TAB PO SCH ×2 (07:58→20:35)
[2023-05-27] MEDS: INSULIN ASPART PER UNIT CHARGE SC SCH ×4 (08:37→20:35)
[2023-05-27] MEDS: LANTUS PER UNIT CHARGE SQ SCH ×2 (08:37→20:36)
--- NOTE | 2023-05-27 09:50 | Hospitalist Progress Note ---
Date of Service May 27, 2023 Assessment & Plan (1) Acute HFrEF (heart failure with reduced ejection fraction): Plan: Acute exacerbation of chronic HFrEF -With dietary indiscretion and diuretic noncompliance due to quality of life difficulties 2/2 frequent urination -Continue Bumex 2mg IV BID -Monitor I/O, daily weights; continued reasonable output and kidney function remains normal -Continue Metoprolol, Entresto, Spironolactone (2) Pleural effusion: Plan: -Consider thoracentesis if breathing not improving or pain worsening, patient declines Pulm eval right now -Patient reports history of pleurisy in same lung, and "whenever she gets sick" she gets pleural effusion on that side -Declines pain medication for pleuritic pain, encouraged pain control and incentive spirometry as I am concerned that her shallow breaths will potentiate atelectasis and further worsen her breathing -No evidence of infection, CBC reviewed with normal WBC count -Repeat CXR today similar to previous, suggests also atelectasis, incentive spirometer ad flutter valve encouraged, creatinine stable (3) COPD (chronic obstructive pulmonary disease): Plan: -Hx severe COPD per previous PFTs -Albuterol PRN -Often does not wear continuous oxygen at home despite urging -No wheezing on exam, less suspicious of COPD exacerbation (4) Hypothyroidism: Plan: -Continue Synthroid (5) Diabetes mellitus with albuminuria: Plan: -Lantus 10u BID -ISS Plan PT and OT ordered, patient has historically refused rehab even when recommended but I am concerned about overall debility and deconditioning. Recommended for rehab. Patient reports she does not want her daughter called to give updates, but it is ok to let her know how she is doing if she calls and asks. Admission and Anticipated Discharge Date Admission Date: May 25, 2023 Subjective Pain and dyspnea about the same today. Have net negative 3L this admission. She denies wanting medication for pain. Denies other complaints. Review of Systems Review of Systems: All systems reviewed & are unremarkable except as noted in Subjective Physical Exam Constitutional: WD/WN, vitals as above Respiratory: shallower breaths due to pain, not tachypneic, crackles L>R lung bases Cardiovascular: RRR, no murmur, no edema Gastrointestinal (Abdomen): normal bowel sounds, soft, nontender, no hepatosplenomegaly Skin: no rashes, warm and dry Psychiatric: A+Ox3, euthymic affect Results & Data Results & Data Vital Signs (Past 12 Hours) Vital Signs Temp Pulse Pulse Pulse Resp BP Pulse Ox 05/27/23 09:00 87 05/27/23 08:06 37.0 C 83 18 164/76 H 96 05/27/23 04:38 36.8 C 83 20 167/74 H 92 05/27/23 00:01 36.8 C 87 20 149/81 H 98 05/26/23 23:19 85 20 95 05/26/23 23:11 05/26/23 23:09 88 O2 Del Method O2 Flow Rate 05/27/23 09:00 05/27/23 08:06 Nasal Cannula 2 05/27/23 04:38 Nasal Cannula 2 05/27/23 00:01 Nasal Cannula 2 05/26/23 23:19 Nasal Cannula 2 05/26/23 23:11 Nasal Cannula 2 05/26/23 23:09 PG Care Time/CCT Total # of Minutes Spent Total Time Spent with Patient: Total time spent is greater than 50% in coordination of care (as documented) at patient's floor/unit and/or counseling patient: Coding Level of Care Code 46400 SUB INP/OBS CARE 3/50MIN Diagnoses Acute HFrEF (heart failure with reduced ejection fraction) I50.21 Pleural effusion J90 COPD (chronic obstructive pulmonary disease) J44.9 Hypothyroidism E03.9 Diabetes mellitus with albuminuria E11.29; R80.9
--- NOTE | 2023-05-27 10:42 | XRay Report ---
SINGLE VIEW CHEST CLINICAL HISTORY: Pulmonary edema. FINDINGS: An AP, portable, upright chest radiograph is compared to study dated 05/25/2023 and correlate d with chest CT dated 03/28/2023. The heart is enlarged noting atherosclerotic calcification of the th oracic aorta. There is mild pulmonary vascular congestion. Chronic interstitial thickening is similar to previous. There is a left pleural effusion and left basilar consolidation. Trace pleural effusion is seen on the right. No pneumothorax is seen. The skeletal structures are osteopenic. The bony thor ax is grossly intact. IMPRESSION: 1. Cardiomegaly with mild pulmonary vascular congestion. 2. Left pleural effusion with left basilar consolidation. This is similar to previous. 3. Trace pleural effusion is noted on the prior. ACT 112: Negative or not required by law. Electronically signed by: Michelet Morocho M.D. 05/27/2023 10:41 AM
[2023-05-28] MEDS: ALBUTEROL 0.083% NEBU SOLN 3 ML VIAL INH PRN (01:34)
[2023-05-28] MEDS: ACETAMINOPHEN 325 MG TAB PO PRN ×2 (02:12→22:00)
[2023-05-28] MEDS: LEVOTHYROXINE SODIUM 150 MCG TABLET PO SCH (05:35)
[2023-05-28 08:03] LABS: BUN Creatinine Ratio 27.9 (10-20); Calcium 8.4 mg/dl (8.6-10.3); Creatinine Clr Calc Pharmacy 67.5 ml/min; Est GFR (African American) 76.6 ml/min; Est GFR (Non-African American) 66.1 ml/min; Potassium 3.6 mmol/L (3.5-5.1)
--- NOTE | 2023-05-28 08:26 | Hospitalist Progress Note ---
Date of Service May 28, 2023 Assessment & Plan (1) Acute HFrEF (heart failure with reduced ejection fraction): Plan: Acute exacerbation of chronic HFrEF -With dietary indiscretion and diuretic noncompliance due to quality of life difficulties 2/2 frequent urination -Continue Bumex 2mg IV BID -Monitor I/O, daily weights; continued reasonable output and kidney function remains normal -Continue Metoprolol at increased dose 100mg daily, Entresto, Spironolactone -Consider Purewick outside the hospital if it will help patient maintain compliance with diuretics (2) Pleural effusion: Plan: -Patient amenable to Pulmonology evaluation, Dr. Small consulted and patient is now s/p thoracentesis for 350cc pleural fluid, fluid studies pending -Patient reports history of pleurisy in same lung, and "whenever she gets sick" she gets pleural effusion on that side -Incentive spirometry encouraged, as well as Tylenol prn pain -No evidence of infection or COPD exacerbation, CBC reviewed with normal WBC c ount, no Abx or steroids initiated (3) COPD (chronic obstructive pulmonary disease): Plan: -Hx severe COPD per previous PFTs, some mixed picture with likely restrictive component as well -Albuterol PRN -Often does not wear continuous oxygen at home despite urging, continue education -Not suspicious of COPD exacerbation (4) Hypothyroidism: Plan: -Continue Synthroid (5) Diabetes mellitus with albuminuria: Plan: -Lantus 10u BID -ISS (6) Hypercarbia: Plan: CO2 43 on BMP, VBG with CO2 76 mild increase from previous checks, patient declines nighttime NIPPV Plan PT and OT ordered, patient has historically refused rehab even when recommended but I am concerned about overall debility and deconditioning. Recommended for rehab. Patient reports she does not want her daughter called by providers to give updates without the ok from patient, but reports it is ok to let her daughter know how she is doing if she calls and asks. Admission and Anticipated Discharge Date Admission Date: May 25, 2023 Subjective Overnight similar SOB and left pleuritic chest pain symptoms. No worsening today. Denies other symptoms. Physical Exam Constitutional: WD/WN, vitals as above Respiratory: shallower breaths due to pain, not tachypneic, decreased breath sounds in left lower lung Cardiovascular: RRR, no murmur, no edema Gastrointestinal (Abdomen): normal bowel sounds, soft, nontender, no hepatosplenomegaly Skin: no rashes, warm and dry Psychiatric: A+Ox3, euthymic affect Results & Data Results & Data Vital Signs (Past 12 Hours) Vital Signs Temp Pulse Pulse Pulse Resp BP Pulse Ox 05/28/23 08:06 36.7 C 85 20 140/66 97 05/28/23 04:33 36.5 C 87 20 134/70 97 05/27/23 22:01 82 05/28/23 01:36 86 18 96 O2 Del Method O2 Flow Rate 05/28/23 08:06 Nasal Cannula 3 05/28/23 04:33 Nasal Cannula 2 05/27/23 22:01 05/28/23 01:36 Nasal Cannula 3 PG Care Time/CCT Total # of Minutes Spent Total Time Spent with Patient: Total time spent is greater than 50% in coordination of care (as documented) at patient's floor/unit and/or counseling patient: Coding Level of Care Code 16918 SUB INP/OBS CARE 3/50MIN Diagnoses Acute HFrEF (heart failure with reduced ejection fraction) I50.21 Pleural effusion J90 COPD (chronic obstructive pulmonary disease) J44.9 Hypothyroidism E03.9 Diabetes mellitus with albuminuria E11.29; R80.9 Hypercarbia R06.89
[2023-05-28] MEDS: INSULIN ASPART PER UNIT CHARGE SC SCH ×4 (09:12→22:10)
[2023-05-28] MEDS: LANTUS PER UNIT CHARGE SQ SCH ×2 (09:12→22:10)
[2023-05-28] MEDS: SPIRONOLACTONE 25 MG TAB PO SCH (09:13)
[2023-05-28] MEDS: POTASSIUM CHLORIDE PWD 20 MEQ PACK PO SCH (09:13)
[2023-05-28] MEDS: VALSARTAN/SACUBITRIL 51/49 MG TAB PO SCH ×2 (09:13→22:01)
[2023-05-28] MEDS: BUMETANIDE 2 MG in SYRINGE 0 ML IV SCH ×2 (09:13→17:33)
[2023-05-28 09:38] LABS: Base Excess VBG 19.2 mEq/L; HCO3 VBG 48 mmol/L; Oxygen Saturation VBG < 60.0 %; PCO2 VBG 76 mmHg (38-50); PO2 VBG 22 mmHg; pH VBG 7.41 (7.36-7.41)
[2023-05-28] MEDS: METOPROLOL SUCC 50MG EXT REL TAB PO SCH (10:21)
--- NOTE | 2023-05-28 13:25 | Pulmonary Consultation ---
Date of Consultation May 28, 2023 Assessment & Plan (1) COPD (chronic obstructive pulmonary disease): (2) Acute on chronic heart failure with preserved ejection fraction (HFpEF): (3) Pleural effusion: (4) Chest pain: Plan Impression: 77-year-old female with history of diastolic heart failure and obstructive lung disease admitted with shortness of breath and a persistent small effusion. She has been diuresed but still has some shortness of breath which is likely multifactorial but there remains concern about the etiology of the pleural effusion and how much that is potentially contributing to her respiratory issues Recommendations: 1. Pleural effusion: A long discussion with the patient. We again discussed risks and benefits of thoracentesis. After careful consideration. She is open to the prospect of thoracentesis to see if it offers her a clinical improvement as well as to provide characterization of the fluid. Follow-up chest x-ray postthoracentesis. Additional recommendations will be based on characterization of pleural fluid. 2. Hypoxemia: Unclear if the patient still requires oxygen. Recommend weaning oxygen to keep oxygen saturations at or above 90%. 3. Obstructive lung disease: Last PFTs demonstrated a likely mixed pattern of obstruction and restriction. She is not bronchospastic currently. There is no indication for steroids or antibiotics or additional inhalers at this point time. No indication for antibiotics We will follow-up with pleural fluid results and post procedure chest x-ray History of Present Illness Attending Physician: Heydi Martin, History of Present Illness Asked by hospitalist to evaluate this patient with pleural effusion. The patient is known to me from prior hospitalizations where she presented with heart failure and pleural effusion. At that point time she had elected to not pursue invasive procedures and continue with medical management. Patient presented to the emergency room 05/25/2023 with complaints of shortness of breath. She has been treated for heart failure exacerbation. Chest x-ray is demonstrated a persistent small left-sided pleural effusion which is unchanged from prior. She has been diuresed but pulmonary was consulted again for consideration of thoracentesis. The patient is relatively risk averse but open to the prospect of thoracentesis at this time. Review of her intake and output demonstrates that she is negative about 3 L since admission. The patient denies fevers chills night sweats or other constitutional symptoms. She does have chronic lower extremity edema. She reports compliance with her medications. She is not anticoagulated. She does have a history of COPD. She is not using supplemental oxygen at home. She did not report any wheezing or sputum production. Her last PFTs were performed in July 2022 and showed an FEV1 of 0.96 L or 37% predicted with an FVC of 1.44 L or 42% predicted and a ratio of 66. No change after administration of inhaled bronchodilators. The patient was unable to complete lung volumes. Diffusion capacity was reduced at 44% predicted. Allergies Allergy/AdvReac Type Severity Reaction Status Date / Time aspirin Allergy Severe HIVES; Verified 05/25/23 02:28 DIFFICULTY BREATHING colchicine Allergy Severe Difficulty Verified 05/25/23 02:28 Breathing Iodinated Contrast Media Allergy Intermediate Rash Verified 05/25/23 02:28 aspartame Allergy Unknown Unknown Verified 05/25/23 02:28 Benzodiazepines Allergy Unknown Unknown Verified 05/25/23 02:28 diltiazem Allergy Unknown UNKNOWN Verified 05/25/23 02:28 REACTION doxycycline Allergy Unknown Unknown Verified 05/25/23 02:28 melon Allergy Unknown Unknown Verified 05/25/23 02:28 nifedipine Allergy Unknown UNKNOWN Verified 05/25/23 02:28 REACTION simvastatin Allergy Unknown UNKNOWN Verified 05/25/23 02:28 REACTION PER PT sucralose Allergy Unknown Unknown Verified 05/25/23 02:28 vancomycin Allergy Unknown UNKNOWN Verified 05/25/23 02:28 REACTION Home Medications Medication Instructions Recorded Confirmed Type Spacer for Inhaler #1 ea 09/04/22 05/18/23 Rx blood sugar diagnostic (OneTouch #100 ea 12/17/22 05/18/23 Rx Verio test strips) pen needle, diabetic 32 gauge x #50 ea 12/17/22 05/18/23 Rx 1/4" (BD Ultra-Fine Micro Pen Needle) acetaminophen 500 mg tablet 1,000 mg PO Q8H PRN Pain 01/27/23 05/25/23 History (Tylenol Extra Strength) insulin detemir U-100 100 unit/mL 30 unit subcut QAM 01/27/23 05/25/23 History (3 mL) subcutaneous pen albuterol sulfate 90 mcg/actuation 2 puff inhalation Q4H PRN 03/14/23 05/25/23 Rx aerosol inhaler cough/wheeze/shortness of breath #18 grams albuterol sulfate 2.5 mg/0.5 mL 2.5 mg (0.5 mL) inhalation Q4H PRN 03/28/23 05/25/23 Rx solution for nebulization shortness of breath or wheezing or cough #1 box potassium chloride 20 mEq oral 20 meq PO DAILY 30 days #30 ea 04/05/23 05/25/23 Rx packet levothyroxine 150 mcg tablet 150 mcg PO DAILYBB #90 tabs 04/06/23 05/25/23 Rx triamcinolone acetonide 0.1 % 1 applic EXT BID PRN FLARE UPS 04/17/23 05/25/23 History topical cream sacubitril 49 mg-valsartan 51 mg 1 tab PO BID #60 tabs 04/25/23 05/25/23 Rx tablet (Entresto) bumetanide 2 mg tablet 2 mg PO DAILY #120 tabs 05/04/23 05/25/23 Rx metoprolol succinate 25 mg 75 mg PO DAILY #90 tabs 05/04/23 05/25/23 Rx tablet,extended release 24 hr spironolactone 25 mg tablet 25 mg PO DAILY #90 tabs 05/04/23 05/25/23 Rx Patient History Medical History (HFpEF) heart failure with preserved ejection fraction Acute and chronic respiratory failure with hypoxia Acute diastolic (congestive) heart failure HX Acute on chronic heart failure with preserved ejection fraction (HFpEF) Acute UTI Advanced care planning/counseling discussion Ambulatory dysfunction Asthma Chest pain hx-"more pleuritic pain, not cardiac related" CHF exacerbation HX-RECENTLY Chronic edema Chronic respiratory failure with hypoxia, on home O2 therapy O2 prn at 2L COPD (chronic obstructive pulmonary disease) Diabetes mellitus Diabetes mellitus with albuminuria Diastolic heart failure HX Discussion about advance care planning held with family member Dyslipidemia Elevated serum globulin level Encounter for hospice care discussion Financial difficulties Gait abnormality History of ectopic History of seizures as a child HTN (hypertension) HTN (hypertension) Hx of papillary thyroid carcinoma Hx of pleurisy Hx of thyroid cancer Hydronephrosis, bilateral Hypertension Hypokalemia Hypomagnesemia Hypothyroidism Hypothyroidism, postablative Lower extremity edema Lymphedema Multiple drug allergies Obstructive pattern present on pulmonary function testing Palliative care by specialist Pleurisy without effusion have been hospitalized 4x in the past year for this Pleuritic chest pain 4x in the past year Renal cyst, left 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 Vitamin D deficiency Wheelchair bound Surgical History History of D&C Hx of brain surgery 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 during the procedure Hx of section Hx of thyroidectomy Family History Father Stroke Mother Dementia Diabetes Sister Macular degeneration Brother Macular degeneration Other TIA (transient ischemic attack) Denies family history of Ovarian cancer Prostate cancer Myocardial infarction Breast cancer Colorectal cancer Social History Smoking Status: Never smoker Second Hand Exposure: No; Do You Dip or Chew Tobacco: No; Hx Alcohol Use: No Hx Substance Use: No Preferred Language: Kiswahili Communication Ability: Effective Visual Impairment: No Limitations Hearing Ability: Normal Appeals Rn Required: No Beliefs That Will Affect Care: None marital status: / Current Living Situation: Alone Current Living Situation Comment: Lives at home alone current occupational status: retired 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 No additions or deletions Physical Exam Constitutional: WD/WN, vitals as above Respiratory: Decreased breath sounds at the left lung base. No wheezing. Few basilar crackles. Cardiovascular: RRR, no murmur, no edema Gastrointestinal (Abdomen): normal bowel sounds, soft, nontender, no hepatosplenomegaly Skin: no rashes, warm and dry Psychiatric: A+Ox3, euthymic affect Results & Data Results & Data Vital Signs (Past 12 Hours) Vital Signs Temp Pulse Pulse Resp BP Pulse Ox O2 Del Method 05/28/23 11:50 36.6 C 84 18 166/85 H 97 Nasal Cannula 05/28/23 08:06 36.7 C 85 20 140/66 97 Nasal Cannula 05/28/23 04:33 36.5 C 87 20 134/70 97 Nasal Cannula 05/28/23 01:36 86 18 96 Nasal Cannula O2 Flow Rate 05/28/23 11:50 3 05/28/23 08:06 3 05/28/23 04:33 2 05/28/23 01:36 3 Critical Care Results & Data Vital Signs (Past 12 Hours) Vital Signs Temp Pulse Pulse Resp BP Pulse Ox O2 Del Method 05/28/23 11:50 36.6 C 84 18 166/85 H 97 Nasal Cannula 05/28/23 08:06 36.7 C 85 20 140/66 97 Nasal Cannula 05/28/23 04:33 36.5 C 87 20 134/70 97 Nasal Cannula 05/28/23 01:36 86 18 96 Nasal Cannula O2 Flow Rate 05/28/23 11:50 3 05/28/23 08:06 3 05/28/23 04:33 2 05/28/23 01:36 3 Lab & Micro Results (Past 24 Hours) No Data to Display Na 138 mmol/L (136-145) 05/28/23 K 3.6 mmol/L (3.5-5.1) 05/28/23 Cl 92 mmol/L (98-107) L 05/28/23 CO2 43 mmol/L (21-32) H* 05/28/23 Anion Gap 3 (3-11) 05/28/23 BUN 24 mg/dl (6-23) H 05/28/23 Creatinine 0.86 mg/dl (0.6-1.2) 05/28/23 Estimated GFR ( Amer) 76.6 ml/min 05/28/23 Estimated GFR (Non-Af Amer) 66.1 ml/min 05/28/23 BUN/Creatinine Ratio 27.9 (10-20) H 05/28/23 Glu 134 mg/dl (70-99(Fasting)) H 05/28/23 Ca 8.4 mg/dl (8.6-10.3) L 05/28/23 Calcium Level 8.4 mg/dl (8.6-10.3) L 05/28/23 07:02 Venous Blood pH 7.41 (7.36-7.41) 05/28/23 09:19 Venous Blood Partial Pressure CO2 76 mmHg (38-50) H 05/28/23 09 :19 Venous Blood Partial Pressure O2 22 mmHg 05/28/23 09:19 Venous Blood HCO3 48 mmol/L 05/28/23 09:19 Venous Blood Base Excess 19.2 mEq/L 05/28/23 09:19 Venous Blood Oxygen Saturation < 60.0 % 05/28/23 09:19 I & O Totals 24 Hours 05/27/23 05/28/23 05/29/23 06:59 06:59 06:59 Intake Total 880 / 880 440 / 440 Output Total 1400 / 1400 1150 / 1150 Balance -520 / -520 -710 / -710 Cumulative 05/25/23 01:45 thru 05/28/23 06:00 Intake Total 1860 Output Total 5050 Balance -3190 RT Ventilator Mngmt (Last Documented) Ventilator Ordered Settings Respiratory Rate 18 05/28/23 11:50 Ventilator - PT Measurements Respiratory Rate 18 PG Care Time/CCT Total # of Minutes Spent Total Time Spent with Patient: Total time spent is greater than 50% in coordination of care (as documented) at patient's floor/unit and/or counseling patient: Coding Level of Care Code 66502 INT INP/OBS CARE 2/55MIN Diagnoses COPD (chronic obstructive pulmonary disease) J44.9 Acute on chronic heart failure with preserved ejection fraction (HFpEF) I50.33 Pleural effusion J90 Chest pain R07.9
--- NOTE | 2023-05-28 13:26 | Procedure Note ---
Procedure Note Date of Service May 28, 2023 Note Procedure: Diagnostic therapeutic ultrasound-guided catheter thoracentesis, left Clinic Charge Nurse: Dr. Carroll Small Indication: Pleural effusion, left Consent: Signed by patient and verified with timeout prior to procedure Anesthesia: 8 mL's 1% lidocaine without epinephrine local. Procedure: Consent was verified and timeout performed. Appropriate imaging studies were reviewed prior to the procedure. Patient was placed in a seated position and limited thoracic ultrasound was performed of the bilateral chest. A small effusion was identified on the left with some compressive atelectasis. No significant effusion on the right.. Site appropriate for thoracentesis on the left was selected. The skin was prepped and draped in normal sterile fashion. Lidocaine was used for local analgesia. Fluid was aspirated via the finder needle. A small skin mitra was made with the scalpel and the catheter over the needle apparatus was advanced over the rib into the pleural space. Using the syringe one-way valve system, a total of 350 mL's of clear yellow fluid was removed. Procedure was terminated due to inability to withdraw additional fluid and patient complaining of some chest pain. The catheter was removed and observed to be intact. A sterile dressing was applied. Post procedure chest x- ray was ordered. Fluid was sent for cell count differential, Gram stain and culture, AFB culture, LDH, pH, total protein, and glucose as well as cytology. The patient tolerated the procedure well without obvious complication Coding CPT Codes Pulmonary/Thoracic - Pulmonary and Thoracic: 91169 Thoracentesis w imaging ([id number]) [facility] [place] Procedure Codes (Charges) Pulmonary/Thoracic Procedure 1: Pulmonary and Thoracic: 84942 Thoracentesis w imaging
[2023-05-28 13:58] LABS: Total Protein Pleural Fluid 3.7 gm/dl
--- NOTE | 2023-05-28 14:00 | XRay Report ---
XR chest 1V portable CLINICAL HISTORY: S/P Thoracentesis TECHNIQUE: Single frontal radiograph of the chest was obtained. Comparison: Comparison is made to chest radiograph 05/27/2023 FINDINGS: No lines and tubes are seen. The cardiomediastinal silhouette is stable. The lungs are clear. Small l eft pleural effusion is seen. IMPRESSION: Interval decrease in size of previously noted left pleural effusion with no evidence of pneumothorax status post thoracentesis. ACT 112: Negative or not required by law. Electronically signed by: Austin Ritter M.D. 05/28/2023 1:58 PM
[2023-05-28 14:28] LABS: Appearance Pleural Fluid Slightly Hazy; Color Pleural Fluid Straw; Eosinophils, Fluid 1 %; Lymphocytes, Fluid 51 %; Mono,Macrophage,Mesothelial 13 %; Neutrophils, Fluid 35 %; RBC Pleural Fluid Auto 2000 /uL; Source Pleural Fluid Left Lung; WBC Pleural Fluid Auto 1777 /uL
[2023-05-29] MEDS: LEVOTHYROXINE SODIUM 150 MCG TABLET PO SCH (06:32)
[2023-05-29 07:17] LABS: Hematocrit (blood only) 29.7 % (37.0-47.0); Hemoglobin 9.4 g/dl (12.0-16.0); Mean Corpuscular Hemoglobin 27.8 pg (25.0-34.0); Mean Corpuscular Hgb Conc 31.6 g/dL (32.0-36.0); Mean Corpuscular Volume 87.9 fL (80.0-100.0); Mean Platelet Volume 10.2 fL (9.4-12.4); Platelet Count 314 K/uL (130-400); RDW Coefficient of Variation 14.2 % (11.5-14.5); RDW Standard Deviation 45.7 fL (36.4-46.3); Red Blood Count 3.38 M/uL (4.20-5.40); White Blood Count 5.93 K/ul (4.8-10.8)
[2023-05-29 07:43] LABS: BUN Creatinine Ratio 31.5 (10-20); Calcium 8.3 mg/dl (8.6-10.3); Creatinine Clr Calc Pharmacy 63.2 ml/min; Est GFR (African American) 70.6 ml/min; Est GFR (Non-African American) 60.9 ml/min; Potassium 3.9 mmol/L (3.5-5.1)
--- NOTE | 2023-05-29 07:52 | Hospitalist Progress Note ---
Date of Service May 29, 2023 Assessment & Plan (1) Acute HFrEF (heart failure with reduced ejection fraction): Plan: Acute exacerbation of chronic HFrEF -With dietary indiscretion and diuretic noncompliance due to quality of life difficulties 2/2 frequent urination -Continue Bumex 2mg IV BID, net negative 3600mL this admission and weight overall down about 3 lbs -Monitor I/O, daily weights; continued reasonable output and kidney function remains normal -Continue Metoprolol at increased dose 100mg daily (continue on discharge), Entresto, Spironolactone -Consider Purewick outside the hospital if it will help patient maintain compliance with diuretics, have asked [employer] Technician to discuss cost as I believe this would significant increase possibility of medication compliance (2) Pleural effusion: Plan: -Patient amenable to Pulmonology evaluation, Dr. Small consulted and patient is now s/p thoracentesis for 350cc pleural fluid, fluid studies suggest lymphocytic exudate, possibly 2/2 chronic effusion/fluid overload, Cx/pathology pending -Patient reports history of pleurisy in same lung, and "whenever she gets sick" she gets pleural effusion on that side -Incentive spirometry encouraged, as well as Tylenol prn pain -No evidence of infection or COPD exacerbation, CBC reviewed with normal WBC count, no Abx or steroids initiated (3) COPD (chronic obstructive pulmonary disease): Plan: -Hx severe COPD per previous PFTs, some mixed picture with likely restrictive component as well -Albuterol PRN -Maintain O2 sat 88-92% -Not suspicious of COPD exacerbation (4) Hypercarbia: Plan: -CO2 43 on BMP, VBG with CO2 76, increased from previous checks, patient will trial nighttime NIPPV but has history of significant claustrophobia -We discussed today that if her SOB is secondary to the elevated CO2 levels, that unless we use NIPPV this symptom will not improve, she understands -May need sleep study outpatient, perhaps can acquire nasal mask for CPAP outpatient (5) Hypothyroidism: Plan: -Continue Synthroid (6) Diabetes mellitus with albuminuria: Plan: -Lantus 10u BID -ISS Plan PT and OT ordered, patient has historically refused rehab even when recommended but I am concerned about overall debility and deconditioning. Recommended for rehab. Patient reports she does not want her daughter called by providers to give updates without the ok from patient, but reports it is ok to let her daughter know how she is doing if she calls and asks. Admission and Anticipated Discharge Date Admission Date: May 25, 2023 Subjective Overnight with some pain at the site where she had the thoracentesis. Breathing feels about the same again today, notes she is peeing a lot, likes the Purewick but is concerned about cost. Physical Exam Constitutional: WD/WN, vitals as above Respiratory: shallower breaths due to pain, not tachypneic, decreased breath sounds in left lower lung Cardiovascular: RRR, no murmur, no edema Gastrointestinal (Abdomen): normal bowel sounds, soft, nontender, no hepatosplenomegaly Skin: no rashes, warm and dry Psychiatric: A+Ox3, euthymic affect Results & Data Results & Data Vital Signs (Past 12 Hours) Vital Signs Temp Pulse Pulse Resp BP Pulse Ox O2 Del Method 05/29/23 07:10 72 05/29/23 03:05 37.1 C 76 20 134/75 98 Nasal Cannula 05/28/23 22:48 83 05/28/23 20:00 Nasal Cannula 05/28/23 22:00 37.1 C 81 20 165/77 H 98 Nasal Cannula O2 Flow Rate 05/29/23 07:10 05/29/23 03:05 2 05/28/23 22:48 05/28/23 20:00 2 05/28/23 22:00 2 PG Care Time/CCT Total # of Minutes Spent Total Time Spent with Patient: Total time spent is greater than 50% in coordination of care (as documented) at patient's floor/unit and/or counseling patient: Coding Level of Care Code 66613 SUB INP/OBS CARE 3/50MIN Diagnoses Acute HFrEF (heart failure with reduced ejection fraction) I50.21 Pleural effusion J90 COPD (chronic obstructive pulmonary disease) J44.9 Hypercarbia R06.89 Hypothyroidism E03.9 Diabetes mellitus with albuminuria E11.29; R80.9
[2023-05-29] MEDS: INSULIN ASPART PER UNIT CHARGE SC SCH ×4 (08:38→20:59)
[2023-05-29] MEDS: VALSARTAN/SACUBITRIL 51/49 MG TAB PO SCH ×2 (08:39→21:00)
[2023-05-29] MEDS: LANTUS PER UNIT CHARGE SQ SCH ×2 (08:39→20:58)
[2023-05-29] MEDS: BUMETANIDE 2 MG in SYRINGE 0 ML IV SCH ×2 (08:39→17:45)
[2023-05-29] MEDS: METOPROLOL SUCC 50MG EXT REL TAB PO SCH (08:39)
[2023-05-29] MEDS: SPIRONOLACTONE 25 MG TAB PO SCH (08:40)
[2023-05-29] MEDS: POTASSIUM CHLORIDE PWD 20 MEQ PACK PO SCH (08:40)
--- NOTE | 2023-05-29 09:36 | Pulmonology Progress Note ---
Date of Service May 29, 2023 Assessment & Plan (1) COPD (chronic obstructive pulmonary disease): (2) Acute on chronic heart failure with preserved ejection fraction (HFpEF): (3) Pleural effusion: (4) Chest pain: (5) Hypercapnic respiratory failure, chronic: Plan Impression: 77-year-old female with history of diastolic heart failure and obstructive lung disease admitted with shortness of breath and a persistent small effusion. She underwent diagnostic and therapeutic thoracentesis yesterday without significant improvement in her symptoms. She remains significantly hypercarbic. Recommendations: 1. Pleural effusion: 350 cc removed yesterday with no significant improvement in her symptoms. The fluid characterization appears to be a lymphocytic exudate which may be consistent with the patient's chronic effusion and fluid overload. She was not symptomatically better and would not recommend additional intervention unless the effusion should increase significantly in size. 2. Hypoxemia: Unclear if the patient still requires oxygen. Given her concomitant hypercarbia, would not recommend targeting oxygen saturations above 90%. 3. Obstructive lung disease: Last PFTs demonstrated a likely mixed pattern of obstruction and restriction. She is not bronchospastic currently. There is no indication for steroids or antibiotics or additional inhalers at this point time. No indication for antibiotics. We will pursue a trial of Anoro to see if for some benefit. 4. Hypercarbic respiratory failure: This is new compared to 2019 but was present in November 2022. The patient states that she is open to the prospect of noninvasive positive pressure ventilation so we will pursue a trial of BiPAP tonight and see how she does. If she is able to tolerate it, outpatient polysomnography would be recommended. Could consider repeat outpatient PFTs and additional work-up for hypercarbic respiratory failure in the outpatient setting. We will follow-up in the a.m. to see how she does with BiPAP Admission and Anticipated Discharge Date Admission Date: May 25, 2023 Subjective Patient seen and examined. EMR reviewed. Patient underwent thoracentesis yesterday. She had no significant proving her symptoms. She having any pain. No significant cough or sputum production. Patient states that she was never offered noninvasive positive pressure ventilation in the past. She is open to a trial. Review of Systems Review of Systems: All systems reviewed & are unremarkable except as noted in Subjective Physical Exam Constitutional: WD/WN, vitals as above Respiratory: no respiratory distress, no labored breathing and not tachypneic Auscultation: + diminished lung sounds; no crackles and no wheezes Cardiovascular: RRR, no murmur, no edema Gastrointestinal (Abdomen): normal bowel sounds, soft, nontender, no hepatosplenomegaly Skin: no rashes, warm and dry Psychiatric: A+Ox3, euthymic affect Results & Data Results & Data Vital Signs (Past 12 Hours) Vital Signs Temp Pulse Pulse Resp BP Pulse Ox O2 Del Method 05/29/23 08:08 36.5 C 78 18 149/78 H 97 Nasal Cannula 05/29/23 07:49 Nasal Cannula 05/29/23 07:10 72 05/29/23 03:05 37.1 C 76 20 134/75 98 Nasal Cannula 05/28/23 22:48 83 05/28/23 22:00 37.1 C 81 20 165/77 H 98 Nasal Cannula O2 Flow Rate 05/29/23 08:08 3 05/29/23 07:49 2 05/29/23 07:10 05/29/23 03:05 2 05/28/23 22:48 05/28/23 22:00 2 Laboratory Results 05/29/23 06:53 05/29/23 06:53 05/28/23 09:19 VBG pH 7.41 VBG pCO2 76 H VBG pO2 22 VBG HCO3 48 VBG O2 Saturation < 60.0 VBG Base Excess 19.2 Pleural fluid analysis: Differential: 30% neutrophils, 51% lymphocytes, 1% eosinophils, 13% mesothelial cells pH 7.48 Total protein 3.7 LDH 274 Glucose 146 Cytology pending Gram stain with many white blood cells and no organisms, culture pending Diagnostic Findings Post procedure chest x-ray was reviewed. Decreased left-sided effusion. No pneumothorax. Small residual fluid collection identified. PG Care Time/CCT Total # of Minutes Spent Total Time Spent with Patient: Total time spent is greater than 50% in coordination of care (as documented) at patient's floor/unit and/or counseling patient: Coding Level of Care Code 30863 SUB INP/OBS CARE 2/35MIN Diagnoses COPD (chronic obstructive pulmonary disease) J44.9 Acute on chronic heart failure with preserved ejection fraction (HFpEF) I50.33 Pleural effusion J90 Chest pain R07.9 Hypercapnic respiratory failure, chronic J96.12
[2023-05-29] MEDS: ALBUTEROL 0.083% NEBU SOLN 3 ML VIAL INH PRN (09:58)
[2023-05-29] MEDS: UMECLIDINIUM/VILANTEROL 62.5/25MCG 7 PUFFS/INHALER INH SCH (10:44)
[2023-05-30] MEDS: LEVOTHYROXINE SODIUM 150 MCG TABLET PO SCH (06:21)
[2023-05-30] MEDS: VALSARTAN/SACUBITRIL 51/49 MG TAB PO SCH ×2 (08:23→20:54)
[2023-05-30] MEDS: METOPROLOL SUCC 50MG EXT REL TAB PO SCH (08:23)
[2023-05-30] MEDS: SPIRONOLACTONE 25 MG TAB PO SCH (08:23)
[2023-05-30] MEDS: LANTUS PER UNIT CHARGE SQ SCH ×2 (08:24→20:53)
[2023-05-30] MEDS: INSULIN ASPART PER UNIT CHARGE SC SCH ×4 (08:24→20:53)
[2023-05-30] MEDS: BUMETANIDE 2 MG in SYRINGE 0 ML IV SCH (08:24)
[2023-05-30] MEDS: UMECLIDINIUM/VILANTEROL 62.5/25MCG 7 PUFFS/INHALER INH SCH (08:25)
--- NOTE | 2023-05-30 08:27 | Hospitalist Progress Note ---
Date of Service May 30, 2023 Assessment & Plan (1) Acute HFrEF (heart failure with reduced ejection fraction): Plan: Acute exacerbation of chronic HFrEF -With dietary indiscretion and diuretic noncompliance due to quality of life difficulties 2/2 frequent urination -Net negative ~3L this admission, seems to be euvolemic at this time, return to home diuretic Bumex 2mg PO daily -Monitor I/O, daily weights; continued reasonable output and BMP reviewed with normal creatinine -Continue Metoprolol at increased dose 100mg daily (continue on discharge), Entresto, Spironolactone -Consider Purewick outside the hospital if it will help patient maintain compliance with diuretics, unfortunately due to cost is likely not feasible. -Plan for diuretics at home discussed with patient and CHF clinic and is as follows: continue the dose she has been taking at home, Bumex 1mg daily. On days of noted increased weight into legs/shortness of breath, recommend trial of extra 1mg Bumex to hopefully help keep her out of the hospital. Maintain close follow up with CHF clinic. Discussed with patient that due to her CHF, she will have further hospitalizations if she does not maintain diuretic compliance. (2) Pleural effusion: Plan: -Patient amenable to Pulmonology evaluation, Dr. Small consulted and patient is now s/p thoracentesis for 350cc pleural fluid, fluid studies suggest lymphocytic exudate, possibly 2/2 chronic effusion/fluid overload, Cx/pathology pending -Patient reports history of pleurisy in same lung, and "whenever she gets sick" she gets pleural effusion on that side -Incentive spirometry encouraged, as well as Tylenol prn pain -No evidence of infection or COPD exacerbation, CBC reviewed with normal WBC count, no Abx or steroids initiated (3) COPD (chronic obstructive pulmonary disease): Plan: -Hx severe COPD per previous PFTs, some mixed picture with likely restrictive component as well -Albuterol PRN -Maintain O2 sat 88-90% -Not suspicious of COPD exacerbation (4) Hypercarbia: Plan: -CO2 43 on BMP, VBG with CO2 76, increased from previous checks, patient will trial nighttime NIPPV but has history of significant claustrophobia -We discussed today that if her SOB is secondary to the elevated CO2 levels, that unless we use NIPPV this symptom will not improve and that Pulmonology cannot offer other interventions for her SOB -May need sleep study outpatient, perhaps can acquire nasal mask for CPAP outpatient vs. Inspire (5) Hypothyroidism: Plan: -Continue Synthroid (6) Diabetes mellitus with albuminuria: Plan: -Lantus 10u BID -ISS Plan PT and OT ordered, recommended rehab however patient declines Plan for discharge home with transport by sister tomorrow if symptoms continue to be stable Patient reports she does not want her daughter called by providers to give updates without the ok from patient, but reports it is ok to let her daughter know how she is doing if she calls and asks. Admission and Anticipated Discharge Date Admission Date: May 25, 2023 Subjective Overnight did not do well with trial of BiPAP, had been in left lower lobe area due to the deep breaths that the machine causes. Does not report shortness of breath today, feels nearly at her baseline with regard to her breathing. Still with some left chest wall pain in the area of thoracentesis, declines medication for this. Physical Exam Constitutional: WD/WN, vitals as above Respiratory: not tachypneic, decreased breath sounds in left lower lung, no wheezing Cardiovascular: RRR, no murmur, no edema Gastrointestinal (Abdomen): normal bowel sounds, soft, nontender, no hepatosplenomegaly Skin: no rashes, warm and dry Psychiatric: A+Ox3, euthymic affect Results & Data Results & Data Vital Signs (Past 12 Hours) Vital Signs Temp Pulse Pulse Resp BP BP Pulse Ox 05/30/23 07:45 36.8 C 58 L 16 154/73 H 97 05/30/23 07:16 82 05/29/23 22:00 90 05/30/23 03:00 37.2 C 69 20 145/73 H 98 05/29/23 22:00 37.1 C 82 20 164/77 H 98 O2 Del Method O2 Flow Rate 05/30/23 07:45 Room Air 05/30/23 07:16 05/29/23 22:00 05/30/23 03:00 Nasal Cannula 2 05/29/23 22:00 Nasal Cannula 2 PG Care Time/CCT Total # of Minutes Spent Total Time Spent with Patient: Total time spent is greater than 50% in coordination of care (as documented) at patient's floor/unit and/or counseling patient: Coding Level of Care Code 67067 SUB INP/OBS CARE 3/50MIN Diagnoses Acute HFrEF (heart failure with reduced ejection fraction) I50.21 Pleural effusion J90 COPD (chronic obstructive pulmonary disease) J44.9 Hypercarbia R06.89 Hypothyroidism E03.9 Diabetes mellitus with albuminuria E11.29; R80.9
[2023-05-30] MEDS ORDERED: POTASSIUM CHLORIDE 20 MEQ/15 ML UDC PO SCH (09:00)
[2023-05-30 09:24] LABS: BUN Creatinine Ratio 34.5 (10-20); Calcium 8.4 mg/dl (8.6-10.3); Creatinine Clr Calc Pharmacy 67.1 ml/min; Est GFR (African American) 75.5 ml/min; Est GFR (Non-African American) 65.2 ml/min; Potassium 3.7 mmol/L (3.5-5.1)
--- NOTE | 2023-05-30 09:26 | Pulmonology Progress Note ---
Date of Service May 30, 2023 Assessment & Plan (1) COPD (chronic obstructive pulmonary disease): (2) Acute on chronic heart failure with preserved ejection fraction (HFpEF): (3) Pleural effusion: (4) Chest pain: (5) Hypercapnic respiratory failure, chronic: Plan Impression: 77-year-old female with history of diastolic heart failure and obstructive lung disease admitted with shortness of breath and a persistent small effusion. She underwent diagnostic and therapeutic thoracentesis yesterday without significant improvement in her symptoms. She remains significantly hypercarbic. She was unable to tolerate noninvasive positive pressure ventilation Recommendations: 1. Pleural effusion: Lymphocytic exudate, cytology pending. She was not symptomatically better and would not recommend additional intervention unless the effusion should increase significantly in size. We will contact patient if cytology or cultures yield actionable data 2. Hypoxemia: Unclear if the patient still requires oxygen. Given her concomitant hypercarbia, would not recommend targeting oxygen saturations above 90%. 3. Obstructive lung disease: Last PFTs demonstrated a likely mixed pattern of obstruction and restriction. She is not bronchospastic currently. There is no indication for steroids or antibiotics or additional inhalers at this point time. No indication for antibiotics. She can continue the Anoro if she feels it is clinically beneficial. If not, can be discontinued 4. Hypercarbic respiratory failure: Patient not willing to consider nocturnal noninvasive pressure. Not much else to do at this point in time other than follow her clinically. Patient appears to be at her pulmonary baseline. She is not a candidate for pulmonary rehab given her full poor functional capacity. Her dyspnea is likely multifactorial and unlikely to improve with medical intervention. Pulmonary will sign off. Feel free to contact us if we can be of additional assistance Admission and Anticipated Discharge Date Admission Date: May 25, 2023 Subjective Patient seen and examined. EMR reviewed. The patient was tried on noninvasive positive pressure ventilation last evening but only tolerated it for a few minutes. She states claustrophobia was not an issue but she did develop some chest discomfort and requested that it be removed. She does not want to try it again. She reports that her breathing is doing okay. She feels back to baseline. She is in a wheelchair at baseline and does not ambulate. Review of Systems Review of Systems: All systems reviewed & are unremarkable except as noted in Subjective Physical Exam Constitutional: WD/WN, vitals as above Respiratory: no respiratory distress, no labored breathing and not tachypneic Auscultation: + diminished lung sounds; no crackles and no wheezes Cardiovascular: RRR, no murmur, no edema Gastrointestinal (Abdomen): normal bowel sounds, soft, nontender, no hepatosplenomegaly Skin: no rashes, warm and dry Psychiatric: A+Ox3, euthymic affect Results & Data Results & Data Vital Signs (Past 12 Hours) Vital Signs Temp Pulse Pulse Resp BP BP Pulse Ox 05/30/23 07:45 36.8 C 58 L 16 154/73 H 97 05/30/23 07:16 82 05/29/23 22:00 90 05/30/23 03:00 37.2 C 69 20 145/73 H 98 05/29/23 22:00 37.1 C 82 20 164/77 H 98 O2 Del Method O2 Flow Rate 05/30/23 07:45 Room Air 05/30/23 07:16 05/29/23 22:00 05/30/23 03:00 Nasal Cannula 2 05/29/23 22:00 Nasal Cannula 2 Laboratory Results 05/29/23 06:53 Diagnostic Findings No new imaging PG Care Time/CCT Total # of Minutes Spent Total Time Spent with Patient: Total time spent is greater than 50% in coordination of care (as documented) at patient's floor/unit and/or counseling patient: Coding Level of Care Code 11211 SUB INP/OBS CARE 2/35MIN Diagnoses COPD (chronic obstructive pulmonary disease) J44.9 Acute on chronic heart failure with preserved ejection fraction (HFpEF) I50.33 Pleural effusion J90 Chest pain R07.9 Hypercapnic respiratory failure, chronic J96.12
[2023-05-30] MEDS: ALBUTEROL 0.083% NEBU SOLN 3 ML VIAL INH PRN (14:03)
[2023-05-31] MEDS: LEVOTHYROXINE SODIUM 150 MCG TABLET PO SCH (06:07)
--- NOTE | 2023-05-31 07:26 | Discharge Summary ---
Discharge Summary Date of Service May 31, 2023 Admission HPI Per Admitting Provider Carli Logan is a 77yo female with multiple medical problems to include chronic hypoxic respiratory failure on supplemental O2 as needed, severe COPD (per pulmonary function testing 07/2022, FEV1 37), HFrEF (35-40% with global hypokinesis) with chronic hypervolemia, DM, HTN and Hypothyroidism presenting persistent shortness of breath. Patient was recently admitted to [facility] from 04/17/23 - 04/26/23 after presenting with dyspnea secondary to acute HFrEF. She was diuresed with Bumex. Her medications were changed on discharge to include increase in metoprolol to 75mg po daily, initiation of Entresto as well as Spironolactone. Patient reports she has not been doing well since her discharge. She feels that her new medications are not working well. Patient reports overall compliance with her medications but sometimes she does not take her diuretic as it interferes with her lifestyle. She reports ongoing dyspnea with PANDEY and orthopnea. She has been having cough productive for white sputum. This morning she was unable to breathe which prompted her to come to the ER. She denies fever, chills or wheeze. No additional complaints. In the ER she is afebrile, tachycardic, hypertensive, on 5L NC at present ER Course: Bumex 2mg IV Labetalol 10mg IV Admission Exam Per Admitting Provider General: patient resting comfortably, NAD, non-toxic in appearance, AA&O x 4 Skin: warm, dry, intact, no rashes or lesions HEENT: NC/AT, PERRL, EOMI, anicteric sclera, conjunctiva without injection, external ear normal to inspection and nontender, nares patent, moist mucus membranes, dentition intact, no oropharyngeal lesions, neck supple, trachea midline, no LAD, no thyromegaly, no JVD Heart: +S1/S2, regular, no m/r/g Lungs: equal air entry bilaterally, coarse breath sounds bilaterally with decreased breath sounds in left lung Abd: +BS, soft, NT/ND, no masses/organomegaly/ascites Ext: warm, 2+ pulses in UE/LE bilaterally,Chronic lymphedema with no obvious infection Neuro: nonfocal, patient AA&O x 4, speech intact, no facial droop, moving all extremities on command with equal strength 5/5 Principal Dx & Hospital Course #1 = Principal Diagnosis (1) Acute HFrEF (heart failure with reduced ejection fraction): Acute exacerbation of chronic HFrEF -With dietary indiscretion and diuretic noncompliance due to quality of life difficulties 2/2 frequent urination -Net negative ~3L this admission, seems to be euvolemic at this time, returned to home diuretic Bumex (prescribed 2mg daily however only agrees to take 1mg daily) -Continue Metoprolol at increased dose 100mg daily, Entresto (this medication is very costly, she got a sample from CHF), Spironolactone -Consider Purewick outside the hospital if it will help patient maintain compliance with diuretics, unfortunately due to cost it may not be feasible -Plan for diuretics at home discussed with patient and CHF clinic and is as follows: continue the dose she has been taking at home, Bumex 1mg daily. On days of noted increased weight into legs/shortness of breath, recommend trial of extra 1mg Bumex to hopefully help keep her out of the hospital. Maintain close follow up with CHF clinic, has appt 06/03 with Veronica Dasilva. Discussed with patient that due to her CHF, she is likely to have further hospitalizations if she does not maintain diuretic compliance. (2) Pleural effusion: -Patient amenable to Pulmonology evaluation, Dr. Small consulted and patient is now s/p thoracentesis for 350cc pleural fluid, fluid studies suggest lymphocytic exudate, possibly 2/2 chronic effusion/fluid overload, Cx/pathology pending -Patient reports history of pleurisy in same lung, and whenever she gets sick she gets pleural effusion on that side -Incentive spirometry encouraged on discharge, as well as Tylenol prn pain to decrease risk of atelectasis -No evidence of infection or COPD exacerbation, CBC reviewed with normal WBC count this admission, no Abx or steroids initiated (3) COPD (chronic obstructive pulmonary disease): -Hx severe COPD per previous PFTs, some mixed picture with likely restrictive component as well -Albuterol PRN -Maintain O2 sat 88-90% at home, is approved for 2LNC continuous but admits to not wearing at home at times -Not suspicious of COPD exacerbation this admission, Pulm did not recommend increased inhalers other than Anoro, which I told patient she can try but she did not want prescribed further due to cost (4) Hypercarbia: -CO2 43 on BMP, VBG with CO2 76, increased from past admissions, patient trialed nighttime NIPPV but has history of significant claustrophobia and was intolerant of it this admission -We discussed today that if her SOB is secondary to the elevated CO2 levels, that unless we use NIPPV this symptom will not improve and that Pulmonology cannot offer other interventions for her SOB -May need sleep study outpatient, perhaps can acquire nasal mask for CPAP outpatient vs. Inspire -Advised to monitor pulse ox, should not over-oxygenate given elevated CO2 and COPD Hx (5) Hypothyroidism: -Continue Synthroid (6) Diabetes mellitus with albuminuria: -Resume home medications Plan PT and OT ordered, recommended rehab however patient declines, also declines home health services Patient reports she does not want her daughter called by providers to give updates without the ok from patient Patient given large font medication list as she reports that some of her noncompliance at home is due to difficulty with reading her list Discharge Exam Constitutional WD/WN, vitals as above Respiratory diminished lung sounds, no crackles, no wheezing Skin no rashes, warm and dry Psychiatric A+Ox3, euthymic affect Updated Medication List Medication Instructions Recorded Confirmed Type Spacer for Inhaler #1 ea 09/04/22 05/18/23 Rx blood sugar diagnostic (OneTouch #100 ea 12/17/22 05/18/23 Rx Verio test strips) pen needle, diabetic 32 gauge x #50 ea 12/17/22 05/18/23 Rx 1/4" (BD Ultra-Fine Micro Pen Needle) acetaminophen 500 mg tablet 1,000 mg PO Q8H PRN Pain 01/27/23 05/25/23 History (Tylenol Extra Strength) insulin detemir U-100 100 unit/mL 30 unit subcut QAM 01/27/23 05/25/23 History (3 mL) subcutaneous pen albuterol sulfate 90 mcg/actuation 2 puff inhalation Q4H PRN 03/14/23 05/25/23 Rx aerosol inhaler cough/wheeze/shortness of breath #18 grams albuterol sulfate 2.5 mg/0.5 mL 2.5 mg (0.5 mL) inhalation Q4H PRN 03/28/23 05/25/23 Rx solution for nebulization shortness of breath or wheezing or cough #1 box potassium chloride 20 mEq oral 20 meq PO DAILY 30 days #30 ea 04/05/23 05/25/23 Rx packet levothyroxine 150 mcg tablet 150 mcg PO DAILYBB #90 tabs 04/06/23 05/25/23 Rx triamcinolone acetonide 0.1 % 1 applic EXT BID PRN FLARE UPS 04/17/23 05/25/23 History topical cream sacubitril 49 mg-valsartan 51 mg 1 tab PO BID #60 tabs 04/25/23 05/25/23 Rx tablet (Entresto) bumetanide 2 mg tablet 2 mg PO DAILY #120 tabs 05/04/23 05/25/23 Rx spironolactone 25 mg tablet 25 mg PO DAILY #90 tabs 05/04/23 05/25/23 Rx umeclidinium 62.5 mcg-vilanterol 1 ea inhalation DAILY #0 ea 05/30/23 Rx 25 mcg/actuation powdr for inhalation (Anoro Ellipta) metoprolol succinate 50 mg 100 mg PO DAILY 30 days #60 tabs 05/31/23 Rx tablet,extended release 24 hr Hospital Stay Data Consultations 05/25/23 02:55 ED Decision to Admit Stat 05/28/23 11:25 Consult Pulmonology Routine Discharge Instructions Given to Patient (Per Discharging Provider) You were admitted to the hospital for difficulty with breathing. You were fluid overloaded, and given IV water pills in order to get the fluid off of your lungs and body. You did not have pneumonia, and no evidence of a COPD exacerbation. You had the fluid in your lungs drained by Dr. Small the briquette machine operator helper. Your symptoms returned to your normal. Our physical therapists recommended some inpatient rehab on discharge or home health services, however you desired to go home without services. We think that your fluid overload was at least in part due to taking less Bumex than you have been prescribed by the cardiac tech. We understand that it is very difficult with having to do transfers and urinating all of the time to take those doses, so your ongoing plan is this after talking with Veronica Dasilva: Continue taking the 1 mg (half tablet) Bumex daily that you have been doing at home, and take the other 1 mg (half a tablet) if you notice weight gain in your legs or having some shortness of breath. In an instance like this, I would also call the heart failure clinic and talk to Alma Dasilva for next steps. We also recommend checking with your insurance to see if a Purewick would be covered at all, so that perhaps you could take your diuretics at home at night and not have to worry about peeing. This would allow you to take the diuretic doses as prescribed and keep you from fluid overload and hospitalization. We also believe that your breathing may be in part due to sleep apnea, as you had an elevated carbon dioxide level in the hospital. Because you did not tolerate the CPAP machine over your face, we recommend that you be evaluated for sleep study outside the hospital and see if you can tolerate a nasal CPAP. If not and you are diagnosed with sleep apnea, you may be a candidate for the Inspire device. Dr. France will help you with getting the sleep apnea evaluated. The elevated carbon dioxide levels can cause shortness of breath, which is s omething that we cannot improve without using something like CPAP or BiPAP. I have written out your medicines in big font below. Please take this list with you to the pharmacist and to your doctor appointments. Total Time Total Time Spent Total Time Spent (In Minutes): 40 minutes Coding Level of Care Code 13977 INP/OBS DISCH >30 MIN Diagnoses Acute HFrEF (heart failure with reduced ejection fraction) I50.21 Pleural effusion J90 COPD (chronic obstructive pulmonary disease) J44.9 Hypercarbia R06.89 Hypothyroidism E03.9 Diabetes mellitus with albuminuria E11.29; R80.9
[2023-05-31] MEDS: VALSARTAN/SACUBITRIL 51/49 MG TAB PO SCH (08:13)
[2023-05-31] MEDS: SPIRONOLACTONE 25 MG TAB PO SCH (08:14)
[2023-05-31] MEDS: INSULIN ASPART PER UNIT CHARGE SC SCH ×2 (08:14→12:33)
[2023-05-31] MEDS: METOPROLOL SUCC 50MG EXT REL TAB PO SCH (08:14)
[2023-05-31] MEDS: LANTUS PER UNIT CHARGE SQ SCH (08:15)
[2023-05-31] MEDS: UMECLIDINIUM/VILANTEROL 62.5/25MCG 7 PUFFS/INHALER INH SCH (08:16)
[2023-05-31] MEDS ORDERED: BUMETANIDE 1 MG TAB PO SCH (09:00)
[2023-05-31] MEDS ORDERED: POTASSIUM CHLORIDE PWD 20 MEQ PACK PO SCH (09:00)
== END 2023-05-31 16:12 | disposition home or self-care (01) | DRG 291 ==
LOC: ED 01:57 → SUATTDRO 03:24 → 4W 03:24 → 2W 22:40

== ENCOUNTER 2023-06-05 04:08 | Inpatient (IN) ==
[2023-06-05] MEDS ORDERED: ONDANSETRON INJ 2 MG/ML 2 ML VIAL IV STA (04:15)
--- NOTE | 2023-06-05 04:19 | Emergency Department Note ---
History of Present Illness General Chief complaint: Vomiting Stated complaint: VOMITING, 1 SYNCOPAL EPISODE Time Seen by Provider: 06/05/23 04:10 History of Present Illness This 77-year-old female presents to the ER complaining of feeling weak and lightheaded with nausea and vomiting tonight. Patient states she got up felt weak and like she was going to pass out. Patient denies chest pain, dyspnea, abdominal pain, fever, chills. Patient has a history of heart failure was recently discharged from the hospital for this. Home Medications Medication Instructions Recorded Confirmed Type Spacer for Inhaler #1 ea 09/04/22 06/04/23 Rx blood sugar diagnostic (OneTouch #100 ea 12/17/22 06/04/23 Rx Verio test strips) pen needle, diabetic 32 gauge x #50 ea 12/17/22 06/04/23 Rx 1/4" (BD Ultra-Fine Micro Pen Needle) acetaminophen 500 mg tablet 1,000 mg PO Q8H PRN Pain 01/27/23 06/04/23 History (Tylenol Extra Strength) insulin detemir U-100 100 unit/mL 30 unit subcut QAM 01/27/23 06/04/23 History (3 mL) subcutaneous pen albuterol sulfate 90 mcg/actuation 2 puff inhalation Q4H PRN 03/14/23 06/04/23 R x aerosol inhaler cough/wheeze/shortness of breath #18 grams albuterol sulfate 2.5 mg/0.5 mL 2.5 mg (0.5 mL) inhalation Q4H PRN 03/28/23 06/04/23 Rx solution for nebulization shortness of breath or wheezing or cough #1 box potassium chloride 20 mEq oral 20 meq PO DAILY 30 days #30 ea 04/05/23 06/04/23 Rx packet levothyroxine 150 mcg tablet 150 mcg PO DAILYBB #90 tabs 04/06/23 06/04/23 Rx triamcinolone acetonide 0.1 % 1 applic EXT BID PRN FLARE UPS 04/17/23 06/04/23 History topical cream bumetanide 2 mg tablet 2 mg PO DAILY #120 tabs 05/04/23 06/04/23 Rx spironolactone 25 mg tablet 25 mg PO DAILY #90 tabs 05/04/23 06/04/23 Rx umeclidinium 62.5 mcg-vilanterol 1 ea inhalation DAILY #0 ea 05/30/23 06/04/23 Rx 25 mcg/actuation powdr for inhalation (Anoro Ellipta) metoprolol succinate 50 mg 100 mg PO DAILY 30 days #60 tabs 05/31/23 06/04/23 Rx tablet,extended release 24 hr losartan 50 mg tablet 50 mg PO QAM #30 tabs 06/04/23 06/04/23 Rx Allergies Allergy/AdvReac Type Severity Reaction Status Date / Time aspirin Allergy Severe HIVES; Verified 06/04/23 11:38 DIFFICULTY BREATHING colchicine Allergy Severe Difficulty Verified 06/04/23 11:38 Breathing Iodinated Contrast Media Allergy Intermediate Rash Verified 06/04/23 11:38 aspartame Allergy Unknown Unknown Verified 06/04/23 11:38 Benzodiazepines Allergy Unknown Unknown Verified 06/04/23 11:38 diltiazem Allergy Unknown UNKNOWN Verified 06/04/23 11:38 REACTION doxycycline Allergy Unknown Unknown Verified 06/04/23 11:38 melon Allergy Unknown Unknown Verified 06/04/23 11:38 nifedipine Allergy Unknown UNKNOWN Verified 06/04/23 11:38 REACTION simvastatin Allergy Unknown UNKNOWN Verified 06/04/23 11:38 REACTION PER PT sucralose Allergy Unknown Unknown Verified 06/04/23 11:38 vancomycin Allergy Unknown UNKNOWN Verified 06/04/23 11:38 REACTION Past Med/Surg History Medical History (HFpEF) heart failure with preserved ejection fraction Acute and chronic respiratory failure with hypoxia Acute diastolic (congestive) heart failure HX Acute on chronic heart failure with preserved ejection fraction (HFpEF) Acute UTI Advanced care planning/counseling discussion Ambulatory dysfunction Asthma Chest pain hx-"more pleuritic pain, not cardiac related" CHF exacerbation HX-RECENTLY Chronic edema Chronic respiratory failure with hypoxia, on home O2 therapy O2 prn at 2L COPD (chronic obstructive pulmonary disease) Diabetes mellitus Diabetes mellitus with albuminuria Diastolic heart failure HX Discussion about advance care planning held with family member Dyslipidemia Elevated serum globulin level Encounter for hospice care discussion Financial difficulties Gait abnormality History of ectopic History of seizures as a child HTN (hypertension) HTN (hypertension) Hx of papillary thyroid carcinoma Hx of pleurisy Hx of thyroid cancer Hydronephrosis, bilateral Hypertension Hypokalemia Hypomagnesemia Hypothyroidism Hypothyroidism, postablative Lower extremity edema Lymphedema Multiple drug allergies Obstructive pattern present on pulmonary function testing Palliative care by specialist Pleurisy without effusion have been hospitalized 4x in the past year for this Pleuritic chest pain 4x in the past year Renal cyst, left 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 Vitamin D deficiency Wheelchair bound Surgical History History of D&C Hx of brain surgery 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 during the procedure Hx of section Hx of thyroidectomy Family History Father Stroke Mother Dementia Diabetes Sister Macular degeneration Brother Macular degeneration Other TIA (transient ischemic attack) Denies family history of Ovarian cancer Prostate cancer Myocardial infarction Breast cancer Colorectal cancer Social History Smoking Status: Never smoker Second Hand Exposure: No; Do You Dip or Chew Tobacco: No; Hx Alcohol Use: No Hx Substance Use: No Preferred Language: Swiss Communication Ability: Effective Visual Impairment: No Limitations Hearing Ability: Normal Bsw Required: No Beliefs That Will Affect Care: None marital status: / Current Living Situation: Alone Current Living Situation Comment: Lives at home alone current occupational status: retired 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 Feels Safe at Home: Yes Childhood Exposure to Second-Hand Smoke: No Diet: regular Dental Care, Regularly: Yes Physical Activity Frequency: Does not Exercise Seatbelt Use: always Sunscreen Use: No Assistive Devices: Oxygen - Continuous and Wheelchair Review of Systems A total of 10 systems reviewed and were otherwise negative Physical Exam Vital Signs Vital Signs - 24 hr 06/05/23 04:28 06/05/23 04:28 06/05/23 04:28 Temperature 36.9 C 36.9 C Temperature Source Axillary Axillary Pulse Rate 88 88 Pulse Rate [Finger] 89 Pulse Rhythm Regular Pulse Rhythm [Finger] Regular Pulse Strength Normal Pulse Strength [Finger] Normal Respiratory Rate 18 20 20 Respiratory Effort / Characteristics Non-Labored Spontaneous Non-Labored Spontaneous Respiratory Depth Normal Normal Blood Pressure 199/99 H Blood Pressure [Right Arm] 199/99 H Blood Pressure Mean 132 Blood Pressure Mean [Right Arm] 132 Blood Pressure Position Sitting Pulse Oximetry 96 95 96 Oxygen Delivery Method Nasal Cannula Nasal Cannula Nasal Cannula Oxygen Flow Rate 2.5 2.5 2.5 Sepsis Recent Fever Within 48 Hours No Sepsis New/Unexplained Change in Mental Status N/A Sepsis Action Taken by Nursing No Action Required 06/05/23 05:10 06/05/23 06:14 Temperature Temperature Source Pulse Rate 87 Pulse Rate [Finger] 87 Pulse Rhythm Pulse Rhythm [Finger] Pulse Strength Pulse Strength [Finger] Respiratory Rate 16 Respiratory Effort / Characteristics Non-Labored Spontaneous Respiratory Depth Normal Blood Pressure Blood Pressure [Right Arm] 157/92 H Blood Pressure Mean Blood Pressure Mean [Right Arm] 113 Blood Pressure Position Pulse Oximetry 99 Oxygen Delivery Method Room Air Oxygen Flow Rate Sepsis Recent Fever Within 48 Hours Sepsis New/Unexplained Change in Mental Status Sepsis Action Taken by Nursing VITALS: Vitals are noted on the nurse's note and reviewed by myself. Vital signs stable. GENERAL: Pleasant elderly female, in no acute distress, nondiaphoretic, well- developed well-nourished. SKIN: The skin was without rashes, or bruising. There is no tenting of the skin. Capillary reflex less than 2 seconds. HEAD: Normocephalic atraumatic. EARS: External auditory canals clear, EYES: Pupils equal round and reactive to light and accommodation. Conjunctivae without injection, sclerae without icterus. Extraocular movements intact. NOSE: Patent, turbinates without inflammation or discharge. MOUTH: Mucous membranes moist. Pharynx without erythema or exudate. Uvula midline. Airway patent. Tongue does not deviate. NECK: Supple without nuchal rigidity. No lymphadenopathy. No thyromegaly. Cervical spine is nontender. No JVD. HEART: Regular rate and rhythm LUNGS: Clear to auscultation bilaterally without wheezes, rales or rhonchi. No retractions or accessory muscle use. ABDOMEN: Positive bowel sounds x 4. Normal tympanic percussion. Soft, nontender, without masses or organomegaly. Quinones sign negative. No guarding or rebound tenderness. No CVA tenderness MUSCULOSKELETAL: No muscle atrophy noted. NEURO: Patient was alert and oriented to person place and time. Normal sensation to light and sharp touch. No focal neurological deficits. Course Administered Medications Discontinued Medications Ondansetron HCl (Ondansetron Inj 2 Mg/Ml 2 Ml Vial) 4 mg IV NOW STA Stop: 06/05/23 04:16 Last Admin: 06/05/23 04:26 Dose: 4 mg Documented By: FAIZA Medical Decision Making Medical Records Attestation: I reviewed the patient's medical records. Home Medications Current Medication List: was personally reviewed by me Laboratory Data Attestation: I reviewed the patient's lab results. 06/05/23 04:35 06/05/23 04:35 Lab Results 06/05/23 06/05/23 06/05/23 Range/Units 04:35 04:35 04:35 WBC 8.53 (4.8-10.8) K/ul RBC 3.54 L (4.20-5.40) M/uL Hgb 9.6 L (12.0-16.0) g/dl Hct 31.4 L (37.0-47.0) % MCV 88.7 (80.0-100.0) fL MCH 27.1 (25.0-34.0) pg MCHC 30.6 L (32.0-36.0) g/dL RDW Std Deviation 45.8 (36.4-46.3) fL RDW Coeff of Smith 14.1 (11.5-14.5) % Plt Count 383 (130-400) K/uL MPV 10.9 (9.4-12.4) fL Immature Gran % (Auto) 0.4 % Neut % (Auto) 71.9 % Lymph % (Auto) 14.9 % Antelope % (Auto) 10.3 % Eos % (Auto) 2.0 % Baso % (Auto) 0.5 % Neut # (Auto) 6.14 (1.40-6.50) K/uL Lymph # (Auto) 1.27 (1.2-3.4) K/uL Antelope # (Auto) 0.88 H (0.11-0.59) K/uL Eos # (Auto) 0.17 (0-0.50) K/uL Baso # (Auto) 0.04 (0-0.2) K/uL Immature Gran # (Auto) 0.03 (0.01-0.20) K/uL Sodium 137 (136-145) mmol/L Potassium 3.8 (3.5-5.1) mmol/L Chloride 92 L (98-107) mmol/L Carbon Dioxide 42 H* (21-32) mmol/L Anion Gap 3 (3-11) BUN 24 H (6-23) mg/dl Creatinine 0.75 (0.6-1.2) mg/dl Est Cr Clr Drug Dosing 65.4 ml/min Est GFR ( Amer) 90.4 ml/min Est GFR (Non-Af Amer) 78.0 ml/min BUN/Creatinine Ratio 32.0 H (10-20) Glucose 155 H (70-99(Fasting)) mg/dl Calcium 8.5 L (8.6-10.3) mg/dl Magnesium 2.1 (1.7-2.4) mg/dl Total Bilirubin 0.5 (0.2-1.0) mg/dl AST 12 L (13-39) U/L ALT 8 (7-52) U/L Alkaline Phosphatase 73 (34-104) U/L Troponin I High Sens 9.9 (0-14) pg/ml Total Protein 7.3 (6.0-8.3) gm/dl Albumin 3.4 (3.4-5.0) gm/dl Globulin 3.9 (2.5-4.0) gm/dl Albumin/Globulin Ratio 0.9 (0.9-2) TSH 3.415 (0.300-4.500) uIu/ml Urine Color Urine Appearance (Clear) Urine pH (4.5-7.5) Ur Specific [place] (1.000-1.030) Urine Protein (Negative) Urine Glucose (UA) (Negative) Urine Ketones (Negative) Urine Blood (Negative) Urine Nitrite (Negative) Urine Bilirubin (Negative) Urine Urobilinogen (Negative) Ur Leukocyte Esterase (Negative) Urine WBC (Auto) (0-5) /hpf Urine RBC (Auto) (0-4) /hpf U Hyaline Cast (Auto) (0-5) /lpf U Epithel Cells (Auto) (0-5) /lpf Urine Bacteria (Auto) (Negative) 06/05/23 Range/Units Unknown WBC (4.8-10.8) K/ul RBC (4.20-5.40) M/uL Hgb (12.0-16.0) g/dl Hct (37.0-47.0) % MCV (80.0-100.0) fL MCH (25.0-34.0) pg MCHC (32.0-36.0) g/dL RDW Std Deviation (36.4-46.3) fL RDW Coeff of Smith (11.5-14.5) % Plt Count (130-400) K/uL MPV (9.4-12.4) fL Immature Gran % (Auto) % Neut % (Auto) % Lymph % (Auto) % Antelope % (Auto) % Eos % (Auto) % Baso % (Auto) % Neut # (Auto) (1.40-6.50) K/uL Lymph # (Auto) (1.2-3.4) K/uL Antelope # (Auto) (0.11-0.59) K/uL Eos # (Auto) (0-0.50) K/uL Baso # (Auto) (0-0.2) K/uL Immature Gran # (Auto) (0.01-0.20) K/uL Sodium (136-145) mmol/L Potassium (3.5-5.1) mmol/L Chloride (98-107) mmol/L Carbon Dioxide (21-32) mmol/L Anion Gap (3-11) BUN (6-23) mg/dl Creatinine (0.6-1.2) mg/dl Est Cr Clr Drug Dosing ml/min Est GFR ( Amer) ml/min Est GFR (Non-Af Amer) ml/min BUN/Creatinine Ratio (10-20) Glucose (70-99(Fasting)) mg/dl Calcium (8.6-10.3) mg/dl Magnesium (1.7-2.4) mg/dl Total Bilirubin (0.2-1.0) mg/dl AST (13-39) U/L ALT (7-52) U/L Alkaline Phosphatase (34-104) U/L Troponin I High Sens (0-14) pg/ml Total Protein (6.0-8.3) gm/dl Albumin (3.4-5.0) gm/dl Globulin (2.5-4.0) gm/dl Albumin/Globulin Ratio (0.9-2) TSH (0.300-4.500) uIu/ml Urine Color Yellow Urine Appearance Cloudy A (Clear) Urine pH 8.0 H (4.5-7.5) Ur Specific [place] 1.014 (1.000-1.030) Urine Protein 2+ H (Negative) Urine Glucose (UA) Trace H (Negative) Urine Ketones Negative (Negative) Urine Blood 1+ H (Negative) Urine Nitrite Negative (Negative) Urine Bilirubin Negative (Negative) Urine Urobilinogen Negative (Negative) Ur Leukocyte Esterase Negative (Negative) Urine WBC (Auto) 5-10 H (0-5) /hpf Urine RBC (Auto) 5-10 H (0-4) /hpf U Hyaline Cast (Auto) 1-5 (0-5) /lpf U Epithel Cells (Auto) >30 H (0-5) /lpf Urine Bacteria (Auto) 1+ H (Negative) Imaging Data Attestation: I personally reviewed and interpreted this imaging study as follows: MDM Narrative Prior records/ancillary studies reviewed and summarized above. Nursing notes reviewed. Additional history obtained from EMS. The patient's history was concerning for feeling lightheaded nausea vomiting near syncope. Differential diagnosis: Etiologies such as metabolic, infection, hypo/hyperglycemia, electrolyte abnormalities, cardiac sources, intracerebral event, toxicologic, neurologic, as well as others were entertained. Physical examination: As above. ER treatment provided: IV Lock An order was placed for continuous cardiac monitoring. The monitor shows a rate of 60-100 with a sinus rhythm per my interpretation. Zofran was ordered On reassessment the patient felt better. Diagnostics interpretation by me: ECG: Ordered for near syncope EKG: Normal sinus, poor baseline, no acute ST-T wave changes. Impression normal sinus rhythm independent interpreted by myself I think arrhythmia is unlikely. EKG shows normal sinus rhythm with no interval abnormalities such as QT prolongation or WPW. There are no findings to suggest Brugada syndrome. Cardiac monitoring in the emergency department reveals no tachycardic or bradycardic dysrhythmia. Hypertrophic cardiomyopathy was considered but there are no clear historical elements pointing toward this. EKG is not suggestive. The QRS voltage is not extremely large The labs Independently Interpreted by myself revealed stable anemia, euthyroid Negative urine, negative troponin Imaging studies: Chest x-ray with no free air, pneumothorax. Persistent small pleural effusion on the left side per my independent interpretation. Head CT negative for intracranial bleed per my independent interpretation. Report was reviewed as above Consultation: A consultation was placed with the hospitalist. The case was discussed and diagnostics were reviewed. The patient was evaluated in the ER for further treatment. Exam and history seem consistent with weakness and near syncope. Labs and diagnostics were independent interpreted by myself. Medicine was consulted and the case was discussed. Patient will be admitted to the medical service. Patient felt too weak and lightheaded to go home. Labs and diagnostics were reviewed and stable. Head CT was negative. Heart test was negative. Patient is agreeable treatment plan of admission. By the evaluation outlined above emergent etiologies such as infection, electrolyte abnormalities, intracerebral event, toxologic, neurologic, abnormalities blood glucose, metabolic, as well as others were deemed relatively unlikely. The pt informed about the findings as listed above. All questions were answered and pleased with the treatment. The chart was completed utilizing [employer] Speech voice recognition software. Grammatical errors, random word insertions, pronoun errors, and incomplete sentences are an occassional consequence of this system due to software limitations, ambient noise, and hardware issues. Any formal questions or concerns about the content, text, or information contained within the body of this dictation should be directly addressed to the physician metal moulder's assistant for clarification. Impression & Plan Near syncope, Weakness, Nausea & vomiting Discharge Plan Visit Data Chief Complaint: Vomiting Stated Complaint: VOMITING, 1 SYNCOPAL EPISODE ED Provider: Tai Hurley ED Midlevel Provider: Jane Tejada Discharge Problem: Near syncope, Weakness, Nausea & vomiting Patient Disposition: Being Evaluated by Hospitalist Condition: Fair Forms Stand Alone Forms: My [facility] Prescriptions Prescriptions: No Action levothyroxine 150 mcg tablet 150 mcg PO DAILYBB Qty: 90 3RF bumetanide 2 mg tablet 2 mg PO DAILY Qty: 120 3RF Rx Instructions: May increase to 4 mg daily PRN spironolactone 25 mg tablet 25 mg PO DAILY Qty: 90 3RF potassium chloride 20 mEq packet 20 meq PO DAILY 30 Days Qty: 30 2RF losartan 50 mg tablet 50 mg PO QAM Qty: 30 2RF Patient Comments: PT STATED SHE DOES NOT TAKE THIS BP MEDICATION. albuterol sulfate 90 mcg/actuation HFA aerosol inhaler 2 puff INHALATION Q4H PRN (Reason: cough/wheeze/shortness of breath) Qty: 18 1RF (DME) Spacer for Inhaler Misc See Rx Instructions .Route Qty: 1 0RF Rx Instructions: As directed acetaminophen [Tylenol Extra Strength] 500 mg tablet 1,000 mg PO Q8H PRN (Reason: Pain) insulin detemir U-100 100 unit/mL (3 mL) insulin pen 30 unit subcut QAM Patient Comments: takes late morning (DME) OneTouch Verio test strips Strip See Rx Instructions .ROUTE .MEDSUPPLY Qty: 100 3RF Rx Instructions: for once a day testing (DME) pen needle, diabetic [BD Ultra-Fine Micro Pen Needle] 32 gauge x 1/4" needle See Rx Instructions .ROUTE .MEDSUPPLY Qty: 50 0RF Rx Instructions: As directed albuterol sulfate 2.5 mg/0.5 mL solution for nebulization 2.5 mg inhalation Q4H PRN (Reason: shortness of breath or wheezing or cough) Qty: 1 0RF triamcinolone acetonide 0.1 % cream 1 applic EXT BID PRN (Reason: FLARE UPS) Rx Instructions: apply twice daily in thin amounts to scaly, dry skin on front of legs; use for 5-7 days only. Anoro Ellipta 62.5-25 mcg/actuation Blister With Device 1 ea inhalation DAILY Qty: 0 0RF metoprolol succinate 50 mg Tablet Extended Release 24 Hr 100 mg PO DAILY 30 Days Qty: 60 0RF Referrals Referrals: Luann France MD [Primary Care Provider] -
[2023-06-05 05:26] LABS: Basophils # (auto) 0.04 K/uL (0-0.2); Basophils % (auto) 0.5 %; Eosinophils # (auto) 0.17 K/uL (0-0.50); Hematocrit (blood only) 31.4 % (37.0-47.0); Hemoglobin 9.6 g/dl (12.0-16.0); Immature Granulocytes # (auto) 0.03 K/uL (0.01-0.20); Immature Granulocytes % (auto) 0.4 %; Lymphocytes # (auto) 1.27 K/uL (1.2-3.4); Lymphocytes % (auto) 14.9 %; Mean Corpuscular Hemoglobin 27.1 pg (25.0-34.0); Mean Corpuscular Hgb Conc 30.6 g/dL (32.0-36.0); Mean Corpuscular Volume 88.7 fL (80.0-100.0); Mean Platelet Volume 10.9 fL (9.4-12.4); Monocytes # (auto) 0.88 K/uL (0.11-0.59); Monocytes % (auto) 10.3 %; Neutrophils # (auto) 6.14 K/uL (1.40-6.50); Neutrophils % (auto) 71.9 %; Platelet Count 383 K/uL (130-400); RDW Coefficient of Variation 14.1 % (11.5-14.5); RDW Standard Deviation 45.8 fL (36.4-46.3); Red Blood Count 3.54 M/uL (4.20-5.40); White Blood Count 8.53 K/ul (4.8-10.8)
[2023-06-05 05:31] LABS: Appearance Urine Cloudy (Clear); Bacteria Urine Automated 1+ (Negative); Bilirubin Urine Negative (Negative); Blood Urine 1+ (Negative); Color Urine Yellow; Epithelial Cell Urine Auto >30 /lpf (0-5); Glucose Urine UA Trace (Negative); Ketones Urine Negative (Negative); Leukocyte Esterase Urine Negative (Negative); Nitrite Urine Negative (Negative); Specific Gravity Urine 1.014 (1.000-1.030); Urobilinogen Urine Negative (Negative)
[2023-06-05 06:01] LABS: Protein Urine 2+ (Negative)
[2023-06-05 06:05] LABS: Albumin Globulin Ratio 0.9 (0.9-2); Albumin Level 3.4 gm/dl (3.4-5.0); Bilirubin,Total 0.5 mg/dl (0.2-1.0); Calcium 8.5 mg/dl (8.6-10.3); Creatinine Clr Calc Pharmacy 65.4 ml/min; Est GFR (African American) 90.4 ml/min; Globulin 3.9 gm/dl (2.5-4.0); Magnesium 2.1 mg/dl (1.7-2.4); Potassium 3.8 mmol/L (3.5-5.1); Total Protein 7.3 gm/dl (6.0-8.3); Troponin I High Sensitivity 9.9 pg/ml (0-14)
--- NOTE | 2023-06-05 06:25 | CT Scan Report ---
Exam(s): CT HEAD Without Contrast EXAM: CT Head Without Intravenous Contrast CLINICAL HISTORY: Reason for exam: dizzy. TECHNIQUE: Axial computed tomography images of the head/brain without intravenous contrast. CTDI is 38.93 mGy and DLP is 390.26 mGy-cm. Automated exposure control was utilized for the study. A dose lowering technique was utilized adhering to the principles of ALARA. COMPARISON: Comparison made to prior head CT from April 13, 2022. FINDINGS: Brain: Unremarkable. No hemorrhage. No significant white matter disease. No edema. Ventricles: Unremarkable. No ventriculomegaly. Bones/joints: Hyperostosis frontalis interna. Remote left temporal craniotomy. No acute fracture. Soft tissues: Mild soft tissue swelling about the left posterior scalp. Sinuses: Unremarkable as visualized. No acute sinusitis. Mastoid air cells: Unremarkable as visualized. No mastoid effusion. IMPRESSION: No evidence of acute intracranial pathology. Electronically signed by: Paulina Montana MD 06/05/23 06:24 AM
[2023-06-05] MEDS ORDERED: BUMETANIDE 1 MG in SYRINGE 0 ML IV ONE (06:45)
--- NOTE | 2023-06-05 06:52 | History & Physical Report ---
Date of Service June 05, 2023 Assessment & Plan (1) Hemoptysis: (2) Near syncope: (3) Weakness: (4) Hypertension: (5) Pleural effusion: (6) Pulmonary hypertension: (7) Cardiomyopathy: (8) COPD (chronic obstructive pulmonary disease): (9) Chronic respiratory failure with hypoxia, on home O2 therapy: Plan Acute on chronic HFrEF/acute on chronic respiratory failure with hypoxia/hemoptysis/left pleural effusion- The patient will be admitted to telemetry for serial cardiac enzymes, serial EKG's, cardiac rhythm monitoring The patient reports that she awoke during the night, with the need for nausea and vomiting, and also brought up some blood, which is unclear if its this was nasal, pulmonary, but does not appear to be GI Suspect the blood was related to nasal passages being very dry as her oxygen is not humidified at home, and she has been wearing it at nighttime sometimes as well now Give a dose of Bumex 1 mg IV now, and order CT chest without contrast to further evaluate Continue losartan, metoprolol succinate, potassium chloride, spironolactone. Follow serial CBC with differential, renal function panel and magnesium level COPD- Continue Anoro Ellipta Duonebs every 4 hours while awake and every 2 hours when necessary. Nasal cannula oxygen, presently at 2.5 L, goal oxygen is 92-94% Diabetes mellitus- Convert insulin detemir 30 units subcu every morning to insulin glargine 20 units subcu every morning Placed on Accu-Cheks with NovoLog SSI History of Present Illness Chief Complaint: The patient presents to the emergency department with complaint of being awoken early this morning with dry heaving and coughed up some blood as well Primary Care Provider: Luann France MD The patient is a 77-year-old female with a past medical history including chronic hypercapnic and hypoxic respiratory failure, left pleural effusion, hypertension, HFrEF, pericardial effusion, pulmonary hypertension, cardiomy opathy, palliative care discussions, COPD, hypothyroidism, migraine headache, hypercholesterolemia, nephrotic range proteinuria and asthma. Patient was recently was admitted from 05/25-05/31/2023 with HFrEF exacerbation. She reports that she had been improving at home, but then awoke this morning with symptoms as above. She reports that she has been wearing her oxygen more at nighttime now also at 2.5 L and it is not humidified Allergies Allergy/AdvReac Type Severity Reaction Status Date / Time aspirin Allergy Severe HIVES; Verified 06/04/23 11:38 DIFFICULTY BREATHING colchicine Allergy Severe Difficulty Verified 06/04/23 11:38 Breathing Iodinated Contrast Media Allergy Intermediate Rash Verified 06/04/23 11:38 aspartame Allergy Unknown Unknown Verified 06/04/23 11:38 Benzodiazepines Allergy Unknown Unknown Verified 06/04/23 11:38 diltiazem Allergy Unknown UNKNOWN Verified 06/04/23 11:38 REACTION doxycycline Allergy Unknown Unknown Verified 06/04/23 11:38 melon Allergy Unknown Unknown Verified 06/04/23 11:38 nifedipine Allergy Unknown UNKNOWN Verified 06/04/23 11:38 REACTION simvastatin Allergy Unknown UNKNOWN Verified 06/04/23 11:38 REACTION PER PT sucralose Allergy Unknown Unknown Verified 06/04/23 11:38 vancomycin Allergy Unknown UNKNOWN Verified 06/04/23 11:38 REACTION Home Medications Medication Instructions Recorded Confirmed Type Spacer for Inhaler #1 ea 09/04/22 06/04/23 Rx blood sugar diagnostic (OneTouch #100 ea 12/17/22 06/04/23 Rx Verio test strips) pen needle, diabetic 32 gauge x #50 ea 12/17/22 06/04/23 Rx 1/4" (BD Ultra-Fine Micro Pen Needle) acetaminophen 500 mg tablet 1,000 mg PO Q8H PRN Pain 01/27/23 06/04/23 History (Tylenol Extra Strength) insulin detemir U-100 100 unit/mL 30 unit subcut QAM 01/27/23 06/04/23 History (3 mL) subcutaneous pen albuterol sulfate 90 mcg/actuation 2 puff inhalation Q4H PRN 03/14/23 06/04/23 Rx aerosol inhaler cough/wheeze/shortness of breath #18 grams albuterol sulfate 2.5 mg/0.5 mL 2.5 mg (0.5 mL) inhalation Q4H PRN 03/28/23 06/04/23 Rx solution for nebulization shortness of breath or wheezing or cough #1 box potassium chloride 20 mEq oral 20 meq PO DAILY 30 days #30 ea 04/05/23 06/04/23 Rx packet levothyroxine 150 mcg tablet 150 mcg PO DAILYBB #90 tabs 04/06/23 06/04/23 Rx triamcinolone acetonide 0.1 % 1 applic EXT BID PRN FLARE UPS 04/17/23 06/04/23 History topical cream bumetanide 2 mg tablet 2 mg PO DAILY #120 tabs 05/04/23 06/04/23 Rx spironolactone 25 mg tablet 25 mg PO DAILY #90 tabs 05/04/23 06/04/23 Rx umeclidinium 62.5 mcg-vilanterol 1 ea inhalation DAILY #0 ea 05/30/23 06/04/23 Rx 25 mcg/actuation powdr for inhalation (Anoro Ellipta) metoprolol succinate 50 mg 100 mg PO DAILY 30 days #60 tabs 05/31/23 06/04/23 Rx tablet,extended release 24 hr losartan 50 mg tablet 50 mg PO QAM #30 tabs 06/04/23 06/04/23 Rx Past Med/Surg History Medical History (Updated 06/05/23 @ 06:45 by Kenny Farfan MD) (HFpEF) heart failure with preserved ejection fraction Acute and chronic respiratory failure with hypoxia Acute diastolic (congestive) heart failure HX Acute on chronic heart failure with preserved ejection fraction (HFpEF) Acute UTI Advanced care planning/counseling discussion Ambulatory dysfunction Asthma Chest pain hx-"more pleuritic pain, not cardiac related" CHF exacerbation HX-RECENTLY Chronic edema Chronic respiratory failure with hypoxia, on home O2 therapy O2 prn at 2L COPD (chronic obstructive pulmonary disease) Diabetes mellitus Diabetes mellitus with albuminuria Diastolic heart failure HX Discussion about advance care planning held with family member Dyslipidemia Elevated serum globulin level Encounter for hospice care discussion Financial difficulties Gait abnormality History of ectopic History of seizures as a child HTN (hypertension) HTN (hypertension) Hx of papillary thyroid carcinoma Hx of pleurisy Hx of thyroid cancer Hydronephrosis, bilateral Hypertension Hypokalemia Hypomagnesemia Hypothyroidism Hypothyroidism, postablative Lower extremity edema Lymphedema Multiple drug allergies Obstructive pattern present on pulmonary function testing Palliative care by specialist Pleurisy without effusion have been hospitalized 4x in the past year for this Pleuritic chest pain 4x in the past year Renal cyst, left 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 Vitamin D deficiency Wheelchair bound Surgical History History of D&C Hx of brain surgery 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 during the procedure Hx of section Hx of thyroidectomy Family History Father Stroke Mother Dementia Diabetes Sister Macular degeneration Brother Macular degeneration Other TIA (transient ischemic attack) Denies family history of Ovarian cancer Prostate cancer Myocardial infarction Breast cancer Colorectal cancer Social History Smoking Status: Never smoker Second Hand Exposure: No; Do You Dip or Chew Tobacco: No; Hx Alcohol Use: No Hx Substance Use: No Preferred Language: Austrian Communication Ability: Effective Visual Impairment: No Limitations Hearing Ability: Normal Granite Cutter Apprentice Required: No Beliefs That Will Affect Care: None marital status: / Current Living Situation: Alone Current Living Situation Comment: Lives at home alone current occupational status: retired 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 Feels Safe at Home: Yes Childhood Exposure to Second-Hand Smoke: No Diet: regular Dental Care, Regularly: Yes Physical Activity Frequency: Does not Exercise Seatbelt Use: always Sunscreen Use: No Assistive Devices: Oxygen - Continuous and Wheelchair Review of Systems Review of Systems: The patient denies chest pain, palpitations, lower extremity swelling, sore throat, fevers, chills, sweats, nausea, vomiting, diarrhea , constipation, abdominal pain, pelvic pain, blood in urine or stool, dysuria, urinary frequency or urgency, lightheadedness, dizziness, headache, memory loss, loss of consciousness, rash, imbalance, focal weakness, numbness or tingling in arms or legs, generalized arthralgias or myalgias, back or neck pain, or night sweats. The review of systems is otherwise negative other than for that already noted above, and at least 10 systems have been reviewed. Physical Exam Physical Exam: The patient is awake, alert and oriented 3, well developed and well nourished, normocephalic and atraumatic, lying in bed and in no acute distress. HEENT--PERRL, EOMI, mucous membranes and oropharynx mildly dry. Neck--supple. No JVD. No bruits. Thyroid normal, trachea midline, no adenopat hy. Heart--normal S1 and S2. No murmurs, rubs or gallops. Lungs--decreased breath sounds on left, few coarse breath sounds bilaterally otherwise. No respiratory distress, no accessory muscle use. Abdomen--normal bowel sounds and soft. Nontender. Nondistended, no hernias or masses, no organomegaly. Extremities--no cyanosis or clubbing. No edema. Dermatologic--normal skin turgor, normal color, no abnormal lymph nodes, no rash. Neurologic--cranial nerves II through XII grossly intact. Rheumatologic--normal range of motion. Psychiatric--mildly anxious Results & Data Results & Data Vital Signs (Past 12 Hours) Vital Signs Temp Pulse Pulse Resp BP BP Pulse Ox 06/05/23 06:14 87 16 157/92 H 99 06/05/23 05:10 87 06/05/23 04:28 88 20 96 06/05/23 04:28 36.9 C 89 20 199/99 H 95 06/05/23 04:28 36.9 C 88 18 199/99 H 96 O2 Del Method O2 Flow Rate 06/05/23 06:14 Room Air 06/05/23 05:10 06/05/23 04:28 Nasal Cannula 2.5 06/05/23 04:28 Nasal Cannula 2.5 06/05/23 04:28 Nasal Cannula 2.5 Laboratory Results Laboratory Results WBC 8.53 K/ul (4.8-10.8) 06/05/23 04:35 RBC 3.54 M/uL (4.20-5.40) L 06/05/23 04:35 Hgb 9.6 g/dl (12.0-16.0) L 06/05/23 04:35 Hct 31.4 % (37.0-47.0) L 06/05/23 04:35 MCV 88.7 fL (80.0-100.0) 06/05/23 04:35 MCH 27.1 pg (25.0-34.0) 06/05/23 04:35 MCHC 30.6 g/dL (32.0-36.0) L 06/05/23 04:35 RDW Std Deviation 45.8 fL (36.4-46.3) 06/05/23 04:35 RDW Coeff of Smith 14.1 % (11.5-14.5) 06/05/23 04:35 Plt Count 383 K/uL (130-400) 06/05/23 04:35 MPV 10.9 fL (9.4-12.4) 06/05/23 04:35 Immature Gran % (Auto) 0.4 % 06/05/23 04:35 Neut % (Auto) 71.9 % 06/05/23 04:35 Lymph % (Auto) 14.9 % 06/05/23 04:35 [place] % (Auto) 10.3 % 06/05/23 04:35 Eos % (Auto) 2.0 % 06/05/23 04:35 Baso % (Auto) 0.5 % 06/05/23 04:35 Neut # (Auto) 6.14 K/uL (1.40-6.50) 06/05/23 04:35 Lymph # (Auto) 1.27 K/uL (1.2-3.4) 06/05/23 04:35 [place] # (Auto) 0.88 K/uL (0.11-0.59) H 06/05/23 04:35 Eos # (Auto) 0.17 K/uL (0-0.50) 06/05/23 04:35 Baso # (Auto) 0.04 K/uL (0-0.2) 06/05/23 04:35 Immature Gran # (Auto) 0.03 K/uL (0.01-0.20) 06/05/23 04:35 Sodium 137 mmol/L (136-145) 06/05/23 04:35 Potassium 3.8 mmol/L (3.5-5.1) 06/05/23 04:35 Chloride 92 mmol/L (98-107) L 06/05/23 04:35 Carbon Dioxide 42 mmol/L (21-32) H* 06/05/23 04:35 Anion Gap 3 (3-11) 06/05/23 04:35 BUN 24 mg/dl (6-23) H 06/05/23 04:35 Creatinine 0.75 mg/dl (0.6-1.2) 06/05/23 04:35 Est Cr Clr Drug Dosing 65.4 ml/min 06/05/23 04:35 Est GFR ( Amer) 90.4 ml/min 06/05/23 04:35 Est GFR (Non-Af Amer) 78.0 ml/min 06/05/23 04:35 BUN/Creatinine Ratio 32.0 (10-20) H 06/05/23 04:35 Glucose 155 mg/dl (70-99(Fasting)) H 06/05/23 04:35 Calcium 8.5 mg/dl (8.6-10.3) L 06/05/23 04:35 Magnesium 2.1 mg/dl (1.7-2.4) 06/05/23 04:35 Total Bilirubin 0.5 mg/dl (0.2-1.0) 06/05/23 04:35 AST 12 U/L (13-39) L 06/05/23 04:35 ALT 8 U/L (7-52) 06/05/23 04:35 Alkaline Phosphatase 73 U/L (34-104) 06/05/23 04:35 Troponin I High Sens 9.9 pg/ml (0-14) 06/05/23 04:35 Total Protein 7.3 gm/dl (6.0-8.3) 06/05/23 04:35 Albumin 3.4 gm/dl (3.4-5.0) 06/05/23 04:35 Globulin 3.9 gm/dl (2.5-4.0) 06/05/23 04:35 Albumin/Globulin Ratio 0.9 (0.9-2) 06/05/23 04:35 TSH 3.415 uIu/ml (0.300-4.500) 06/05/23 04:35 Urine Color Yellow 06/05/23 Unknown Urine Appearance Cloudy (Clear) A 06/05/23 Unknown Urine pH 8.0 (4.5-7.5) H 06/05/23 Unknown Ur Specific Lynch 1.014 (1.000-1.030) 06/05/23 Unknown Urine Protein 2+ (Negative) H 06/05/23 Unknown Urine Glucose (UA) Trace (Negative) H 06/05/23 Unknown Urine Ketones Negative (Negative) 06/05/23 Unknown Urine Blood 1+ (Negative) H 06/05/23 Unknown Urine Nitrite Negative (Negative) 06/05/23 Unknown Urine Bilirubin Negative (Negative) 06/05/23 Unknown Urine Urobilinogen Negative (Negative) 06/05/23 Unknown Ur Leukocyte Esterase Negative (Negative) 06/05/23 Unknown Urine WBC (Auto) 5-10 /hpf (0-5) H 06/05/23 Unknown Urine RBC (Auto) 5-10 /hpf (0-4) H 06/05/23 Unknown U Hyaline Cast (Auto) 1-5 /lpf (0-5) 06/05/23 Unknown U Epithel Cells (Auto) >30 /lpf (0-5) H 06/05/23 Unknown Urine Bacteria (Auto) 1+ (Negative) H 06/05/[address] 06/05/23 04:15 Exam(s): CT HEAD Without Contrast EXAM: CT Head Without Intravenous Contrast CLINICAL HISTORY: Reason for exam: dizzy. TECHNIQUE: Axial computed tomography images of the head/brain without intravenous contrast. CTDI is 38.93 mGy and DLP is 390.26 mGy-cm. Automated exposure control was utilized for the study. A dose lowering technique was utilized adhering to the principles of ALARA. COMPARISON: Comparison made to prior head CT from April 13, 2022. FINDINGS: Brain: Unremarkable. No hemorrhage. No significant white matter disease. No edema. Ventricles: Unremarkable. No ventriculomegaly. Bones/joints: Hyperostosis frontalis interna. Remote left temporal craniotomy. No acute fracture. Soft tissues: Mild soft tissue swelling about the left posterior scalp. Sinuses: Unremarkable as visualized. No acute sinusitis. Mastoid air cells: Unremarkable as visualized. No mastoid effusion. IMPRESSION: No evidence of acute intracranial pathology. Electronically signed by: Paulina Montana MD 06/05/23 06:24 AM Code Status & VTE Plan Code Status Full code VTE Prophylaxis Plan VTE Prophylaxis will be ordered: Yes PG Care Time/CCT Total # of Minutes Spent Total Time Spent with Patient: Total time spent is greater than 50% in coordination of care (as documented) at patient's floor/unit and/or counseling patient: Coding Level of Care Code 57074 INT INP/OBS CARE 3/75MIN Diagnoses Hemoptysis R04.2 Near syncope R55 Weakness R53.1 Hypertension I10 Hypertension type: unspecified Pleural effusion J90 Pulmonary hypertension I27.20 Cardiomyopathy I42.9 COPD (chronic obstructive pulmonary disease) J44.9 Chronic respiratory failure with hypoxia, on home O2 therapy J96.11; Z99.81 (4) Hypertension Hypertension type: unspecified Qualified Code(s): I10 - Essential (primary) hypertension
[2023-06-05] MEDS ORDERED: GLUCOSE 10 TAB/TUBE PO PRN ×2 (07:00→09:13)
[2023-06-05] MEDS ORDERED: CARBOHYDRATES FOR HYPOGLYCEMIA PO PRN ×2 (07:00→09:13)
[2023-06-05] MEDS ORDERED: GLUCAGON FOR INJ 1 MG VIAL IM PRN (07:00)
[2023-06-05] MEDS ORDERED: DEXTROSE 50% 50 ML SYRINGE IV PRN ×2 (07:00→09:13)
[2023-06-05] MEDS ORDERED: GLUCOSE 40% GEL 15 GM TUBE PO PRN ×2 (07:00→09:13)
--- NOTE | 2023-06-05 07:47 | XRay Report ---
XR chest 1V portable HISTORY: 77 years-old Female weakness acute weakness COMPARISON: 06/02/2023 TECHNIQUE: AP view of the chest FINDINGS: Cardiac silhouette is enlarged. Unchanged [id number] left pleural effusion with left basilar c onsolidation. Pulmonary vascular congestion. Trace right pleural effusion. No pneumothorax. Degenerat daniela changes of the shoulders and spine. IMPRESSION: 1. Cardiomegaly with pulmonary vascular congestion. 2. Unchanged left pleural effusion with left basilar consolidation. ACT 112: Negative or not required by law. The above report was generated using voice recognition software. It may contain grammatical, syntax o r spelling errors. Electronically signed by: Dashawn Ramírez M.D. 06/05/2023 7:46 AM
[2023-06-05] MEDS: LANTUS PER UNIT CHARGE SQ SCH (08:18)
[2023-06-05] MEDS ORDERED: ACETAMINOPHEN 500 MG TAB PO PRN (09:13)
[2023-06-05] MEDS ORDERED: GLUCAGON FOR INJ 1 MG VIAL SQ PRN (09:13)
--- NOTE | 2023-06-05 09:22 | CT Scan Report ---
CT chest diagnostic wo con CT DOSE: 535.14 mGy.cm CLINICAL HISTORY: 77 years-old Female with pleural effusion, hypoxia. Acute hypoxia TECHNIQUE: Multiaxial CT images of the chest were performed without contrast. A dose lowering techni que was utilized adhering to the principles of ALARA. COMPARISON: Chest radiograph of same day, chest CT 03/28/2023 FINDINGS: Unremarkable thyroid. Numerous subcentimeter mediastinal and hilar lymph nodes measure up t o 9 mm. Moderate cardiomegaly. Mild pericardial thickening is noted with a pericardial effusion measu ring up to 7 mm anteriorly. Mild coronary artery calcifications. Atherosclerosis of the aorta without aneurysm. Small right and [id number] left pleural effusions. Intralobular septal thickening with bronchi al wall thickening. Mild subpleural cystic changes. Mild scattered tree-in-bud micronodules. Dense ai rspace consolidation of the left lower lobe and to lesser extent within the inferior segment lingula. Left lower lobe mucus plugging. No acute process of the imaged upper abdomen. Unremarkable soft tiss ues. IMPRESSION: 1. Cardiomegaly with pulmonary edema, small right and small moderate left pleural effusions. 2. Dense airspace consolidation within the left lower lobe may represent a superimposed pneumonia. 3. Mild patchy bilateral tree-in-bud micronodules suggestive of an infectious or inflammatory bronchi olitis. 4. Borderline enlarged mediastinal and hilar lymph nodes, likely reactive. 5. Small pericardial effusion with equivocal pericardial thickening. Correlate clinically to exclude pericarditis. ACT 112: Negative or not required by law. Electronically signed by: Dashawn Ramírez M.D. 06/05/2023 9:20 AM
[2023-06-05] MEDS: BUMETANIDE 1 MG TAB PO SCH (10:19)
[2023-06-05] MEDS: METOPROLOL SUCC 50MG EXT REL TAB PO SCH (10:19)
[2023-06-05] MEDS: INSULIN ASPART PER UNIT CHARGE SC SCH ×4 (10:19→22:08)
[2023-06-05] MEDS: SPIRONOLACTONE 25 MG TAB PO SCH (10:19)
[2023-06-05] MEDS: LEVOTHYROXINE SODIUM 150 MCG TABLET PO SCH (10:19)
[2023-06-05] MEDS: POTASSIUM CHLORIDE PWD 20 MEQ PACK PO SCH (10:19)
[2023-06-05] MEDS: UMECLIDINIUM/VILANTEROL 62.5/25MCG 7 PUFFS/INHALER INH SCH (10:20)
[2023-06-05] MEDS: ALBUT/IPRATROP 3MG/0.5MG NEB 3 ML VIAL NEB SCH ×4 (11:01→20:01)
[2023-06-05] MEDS ORDERED: SODIUM CHLORIDE 0.65% NA SOLN 45 ML (OCEAN) PRN (13:13)
[2023-06-05] MEDS: AMPICILLIN/SULBACTAM SOD 3,000 MG in 0.9 % SODIUM CHLORIDE 100 ML IV SCH ×2 (13:58→20:04)
[2023-06-05 14:27] LABS: Influenza A virus by PCR Negative (Neg); Influenza B virus by PCR Negative (Neg); RSV by PCR Negative (Neg); SARS CoV2 RNA(COVID-19) Ceph NEGATIVE (Negative)
[2023-06-05] MEDS ORDERED: ALBUT/IPRATROP 3MG/0.5MG NEB 3 ML VIAL NEB PRN (21:52)
[2023-06-06] MEDS: AMPICILLIN/SULBACTAM SOD 3,000 MG in 0.9 % SODIUM CHLORIDE 100 ML IV SCH ×4 (02:17→20:21)
[2023-06-06] MEDS: LEVOTHYROXINE SODIUM 150 MCG TABLET PO SCH (06:00)
[2023-06-06 06:31] LABS: Basophils # (auto) 0.04 K/uL (0-0.2); Basophils % (auto) 0.5 %; Eosinophils % (auto) 2.5 %; Hematocrit (blood only) 27.9 % (37.0-47.0); Hemoglobin 8.6 g/dl (12.0-16.0); Immature Granulocytes # (auto) 0.02 K/uL (0.01-0.20); Immature Granulocytes % (auto) 0.2 %; Lymphocytes % (auto) 22.1 %; Mean Corpuscular Hemoglobin 27.3 pg (25.0-34.0); Mean Corpuscular Hgb Conc 30.8 g/dL (32.0-36.0); Mean Corpuscular Volume 88.6 fL (80.0-100.0); Mean Platelet Volume 10.5 fL (9.4-12.4); Monocytes # (auto) 0.85 K/uL (0.11-0.59); Monocytes % (auto) 10.4 %; Neutrophils # (auto) 5.25 K/uL (1.40-6.50); Neutrophils % (auto) 64.3 %; Platelet Count 313 K/uL (130-400); RDW Coefficient of Variation 14.4 % (11.5-14.5); RDW Standard Deviation 46.5 fL (36.4-46.3); Red Blood Count 3.15 M/uL (4.20-5.40); White Blood Count 8.16 K/ul (4.8-10.8)
[2023-06-06 06:56] LABS: BUN Creatinine Ratio 25.6 (10-20); Calcium 8.3 mg/dl (8.6-10.3); Est GFR (African American) 76.6 ml/min; Est GFR (Non-African American) 66.1 ml/min; Potassium 4.1 mmol/L (3.5-5.1)
[2023-06-06] MEDS: BUMETANIDE 1 MG TAB PO SCH (08:53)
[2023-06-06] MEDS: METOPROLOL SUCC 50MG EXT REL TAB PO SCH (08:53)
[2023-06-06] MEDS: POTASSIUM CHLORIDE PWD 20 MEQ PACK PO SCH (08:53)
[2023-06-06] MEDS: SPIRONOLACTONE 25 MG TAB PO SCH (08:53)
[2023-06-06] MEDS: INSULIN ASPART PER UNIT CHARGE SC SCH ×4 (08:57→21:43)
[2023-06-06] MEDS: LANTUS PER UNIT CHARGE SQ SCH (09:00)
[2023-06-06] MEDS: UMECLIDINIUM/VILANTEROL 62.5/25MCG 7 PUFFS/INHALER INH SCH (10:52)
[2023-06-06] MEDS: guaiFENesin 600 MG TABCR PO SCH ×2 (20:21→21:44)
--- NOTE | 2023-06-06 21:06 | Hospitalist Progress Note ---
Date of Service June 06, 2023 Assessment & Plan (1) Pneumonia: Plan: LLL, and tree-in-bud opacities elsewhere. this could represent aspiration from recent vomiting events. she has no dysphagia. the LLL opacity could be more typical pneumonia. cont unasyn. day #2 of such. blood cx's remain negative. appetite improved. she looks good today. re-eval tomorrow. (2) Post-tussive emesis: Plan: mucinex to thin her mucous. PPI in the event there is an element of reflux leading to emesis/regurgitation. follow. (3) Hypertension: Plan: resume ARB in am cont bumex, aldactone and metoprolol succinate (4) Pericardial effusion: Plan: small on echo 04/18/[address] chest this admission -- "Small pericardial effusion with equivocal pericardial thickening. Correlate clinically to exclude pericarditis." she has no symptoms of pericarditis at this time effusion likely due to the CHF itself should have f/u echo in the future (5) Pulmonary hypertension: Plan: mild on last echo (6) COPD (chronic obstructive pulmonary disease): Plan: no exacerbation at this time (7) Bronchiectasis: Plan: seen on CT chest earlier this year was referred to pulmonary but has not made it yet to their office no bronchiectasis exacerbation at this time (8) Hypothyroidism: Plan: TSH wnl compensated cont synthroid (9) Chronic respiratory failure with hypoxia, on home O2 therapy: Plan: due to COPD/bronchiectasis/etc stable on home O2 at this time (10) Acute on chronic systolic heart failure: Plan: EF 35-40% on echo in April perhaps very mild decompensation - dry weight is upper 80skg cont bumex & aldactone with daily BMPs and weights cont metoprolol succ resume ARB in am (11) Epistaxis: Plan: right nare prior to admission has not recurred saline nasal spray humidify the O2 etc (12) Anemia: Plan: check Fe studies, B12, folate in am (13) Diabetes mellitus: Plan: a1c >7% in March cont lantus cont novolog adjust as needed Plan DVT proph - she is at high risk of DVT given poor mobility she typically refuses chemical DVT proph consider low-dose Eliquis 2.5mg BID daughter updated by phone yesterday Admission and Anticipated Discharge Date Admission Date: June 05, 2023 Subjective patient feels better today she states "today is the first time I've had an appetite in a while" no further nosebleeding still coughing with some sputum did have an episode in the middle of the night with coughing followed by emesis (clear, phlegmy) denies typical heartburn occasional dyspnea at rest tele overnight wnl Review of Systems Review of Systems: gen - no fevers or chills cv - no chest pain pulm - no darryl hemoptysis GI - post-tussive emesis but no nausea during the day-time; no abd pain Physical Exam Physical Exam: gen - NAD, looks good, good spirits today neck - no obvious JVD sitting upright at 90 degrees mouth - MMM heart - RRR, s1 s2, 2/6 systolic murmur LSB lungs - b/l rales worse on left, no wheeze, no increased work of breathing; mildly decreased BS L base abd - soft NT ND BS+ ext - 1+ lymphedema b/l legs/feet, pulses 2+ b/l skin - pink stasis changes b/l shins psych - a/o x 3 Results & Data Results & Data Vital Signs (Past 12 Hours) Vital Signs Temp Pulse Resp BP Pulse Ox O2 Del Method O2 Flow Rate 06/06/23 19:55 37.4 C 91 H 18 102/60 91 Nasal Cannula 4 06/06/23 19:53 37.0 C 75 18 166/73 H 96 Nasal Cannula 2 06/06/23 16:24 36.9 C 75 18 157/76 H 96 Nasal Cannula 2 06/06/23 10:00 36.8 C 84 16 119/70 95 Room Air Laboratory Results Laboratory Results - last 24 hr 06/06/23 06/06/23 06/06/23 05:40 05:40 07:27 WBC 8.16 RBC 3.15 L Hgb 8.6 L Hct 27.9 L MCV 88.6 MCH 27.3 MCHC 30.8 L RDW Std Deviation 46.5 H RDW Coeff of Smith 14.4 Plt Count 313 MPV 10.5 Immature Gran % (Auto) 0.2 Neut % (Auto) 64.3 Lymph % (Auto) 22.1 [place] % (Auto) 10.4 Eos % (Auto) 2.5 Baso % (Auto) 0.5 Neut # (Auto) 5.25 Lymph # (Auto) 1.80 [place] # (Auto) 0.85 H Eos # (Auto) 0.20 Baso # (Auto) 0.04 Immature Gran # (Auto) 0.02 Sodium 139 Potassium 4.1 Chloride 93 L Carbon Dioxide 43 H* Anion Gap 3 BUN 22 Creatinine 0.86 Est Cr Clr Drug Dosing 67.0 Est GFR ( Amer) 76.6 Est GFR (Non-Af Amer) 66.1 BUN/Creatinine Ratio 25.6 H Glucose 139 H POC Glucose 145 H Calcium 8.3 L Magnesium 2.0 06/06/23 06/06/23 06/06/23 11:15 16:12 20:10 WBC RBC Hgb Hct MCV MCH MCHC RDW Std Deviation RDW Coeff of Smith Plt Count MPV Immature Gran % (Auto) Neut % (Auto) Lymph % (Auto) [place] % (Auto) Eos % (Auto) Baso % (Auto) Neut # (Auto) Lymph # (Auto) [place] # (Auto) Eos # (Auto) Baso # (Auto) Immature Gran # (Auto) Sodium Potassium Chloride Carbon Dioxide Anion Gap BUN Creatinine Est Cr Clr Drug Dosing Est GFR ( Amer) Est GFR (Non-Af Amer) BUN/Creatinine Ratio Glucose POC Glucose 220 H 96 110 H Calcium Magnesium PG Care Time/CCT Total # of Minutes Spent Total Time Spent with Patient: Total time spent is greater than 50% in coordination of care (as documented) at patient's floor/unit and/or counseling patient: Coding Level of Care Code 20349 SUB INP/OBS CARE 3/50MIN Diagnoses Pneumonia J18.9 Post-tussive emesis R11.10 Hypertension I10 Hypertension type: unspecified Pericardial effusion I31.39 Pulmonary hypertension I27.20 COPD (chronic obstructive pulmonary disease) J44.9 Bronchiectasis J47.9 Hypothyroidism E03.9 Chronic respiratory failure with hypoxia, on home O2 therapy J96.11; Z99.81 Acute on chronic systolic heart failure I50.23 Epistaxis R04.0 Anemia D64.9 Diabetes mellitus E11.9 (3) Hypertension Hypertension type: unspecified Qualified Code(s): I10 - Essential (primary) hypertension
[2023-06-07] MEDS: AMPICILLIN/SULBACTAM SOD 3,000 MG in 0.9 % SODIUM CHLORIDE 100 ML IV SCH ×4 (02:17→22:39)
[2023-06-07] MEDS: LEVOTHYROXINE SODIUM 150 MCG TABLET PO SCH (05:42)
[2023-06-07 07:08] LABS: BUN Creatinine Ratio 23.8 (10-20); Calcium 8.2 mg/dl (8.6-10.3); Creatinine Clr Calc Pharmacy 68.7 ml/min; Est GFR (African American) 78.8 ml/min; Potassium 4.2 mmol/L (3.5-5.1)
[2023-06-07 07:23] LABS: Folate (Folic Acid),Ser orPlas 6.91 ng/ml (>5.38)
[2023-06-07 07:26] LABS: Ferritin 89.5 ng/ml (8-388)
[2023-06-07] MEDS: POTASSIUM CHLORIDE PWD 20 MEQ PACK PO SCH (08:38)
[2023-06-07] MEDS: BUMETANIDE 1 MG TAB PO SCH (08:38)
[2023-06-07] MEDS: METOPROLOL SUCC 50MG EXT REL TAB PO SCH (08:39)
[2023-06-07] MEDS: SPIRONOLACTONE 25 MG TAB PO SCH (08:39)
[2023-06-07] MEDS: UMECLIDINIUM/VILANTEROL 62.5/25MCG 7 PUFFS/INHALER INH SCH ×2 (08:39→08:52)
[2023-06-07] MEDS: guaiFENesin 600 MG TABCR PO SCH ×2 (08:40→08:52)
[2023-06-07] MEDS: INSULIN ASPART PER UNIT CHARGE SC SCH ×4 (08:40→21:20)
[2023-06-07] MEDS: LANTUS PER UNIT CHARGE SQ SCH (08:40)
--- NOTE | 2023-06-07 09:03 | Electrocardiogram Report ---
Test Reason : Blood Pressure : / mmHG Vent. Rate : 090 BPM Atrial Rate : 090 BPM P-R Int : 166 ms QRS Dur : 090 ms QT Int : 370 ms P-R-T Axes : 038 -03 108 degrees QTc Int : 452 ms Normal sinus rhythm Possible Left atrial enlargement Anteroseptal infarct (cited on or before 05-JUN-2023) Abnormal ECG When compared with ECG of 02-JUN-2023 10:20, No significant change was found Confirmed by Dash Fontanez ([id number]) on 06/07/2023 9:02:41 AM Referred By: REFERRED SELF Confirmed By:Dash Fontanez
[2023-06-07] MEDS: CYANOCOBALAMIN (B-12) 500 MCG TABLET PO SCH (10:20)
[2023-06-07] MEDS: FOLIC ACID 1 MG TAB PO SCH (10:20)
[2023-06-07] MEDS: LOSARTAN POTASSIUM 50 MG TAB PO SCH (10:21)
[2023-06-07] MEDS: PANTOprazole 40 MG TAB PO SCH ×2 (10:21→12:26)
--- NOTE | 2023-06-07 13:33 | Hospitalist Progress Note ---
Date of Service June 07, 2023 Assessment & Plan (1) Pneumonia: Plan: LLL, as well as tree-in-bud opacities elsewhere. this could represent aspiration from recent vomiting events. she has no dysphagia, however. the LLL opacity could be more typical pneumonia. cont unasyn. day #3 of such. add azithromycin for atypical coverage. if she fails to improve then broaden unasyn. at risk of non-bacterial infections as well. COVID/flu/RSV were negative. blood cx's remain negative. (2) Post-tussive emesis: Plan: change mucinex to liquid robitussin (she doesn't want to take mucinex) to thin her mucous. PPI in the event there is an element of reflux leading to emesis/regurgitation. follow. (3) Hypertension: Plan: resumed ARB today cont bumex, aldactone and metoprolol succinate (4) Pericardial effusion: Plan: small on echo 04/18/[address] chest this admission -- "Small pericardial effusion with equivocal pericardial thickening. Correlate clinically to exclude pericarditis." she has no symptoms of pericarditis at this time effusion likely due to the CHF itself should have f/u echo in the future, however, to follow it (5) Pulmonary hypertension: Plan: mild on last echo (6) COPD (chronic obstructive pulmonary disease): Plan: no exacerbation at this time (7) Bronchiectasis: Plan: seen on CT chest earlier this year was referred to pulmonary but has not made it yet to their office due to difficulty leaving her house no bronchiectasis exacerbation at this time bronchiectasis/COPD/?ILD likely all account for her chronic hypoxic resp failure (8) Hypothyroidism: Plan: TSH wnl compensated cont synthroid (9) Chronic respiratory failure with hypoxia, on home O2 therapy: Plan: due to COPD/bronchiectasis/?ILD stable on home O2 at this time (10) Acute on chronic systolic heart failure: Plan: EF 35-40% on echo in April 2023 perhaps very mild decompensation - dry weight is upper 80s kg cont bumex & aldactone with daily BMPs and weights cont metoprolol succ cont ARB (11) Epistaxis: Plan: right nare prior to admission has not recurred saline nasal spray humidify the O2 etc (12) Anemia: Plan: Fe studies suggestive of mild Fe def (transferrin sat <20%) consider IV venofer B12/folate levels both technically normal but are low-normal --> supplement both (13) Diabetes mellitus: Plan: a1c >7% in March cont lantus cont novolog adjust as needed (14) Abdominal distension: Plan: no BM in at least 5+ days obtain KUB - r/o impaction, ileus, etc check fecal load depending on results perhaps dulcolax suppos vs milk of mag or other once stooling then start senna+miralax for maintenace Plan DVT proph - she is at high risk of DVT given poor mobility she typically refuses chemical DVT proph (as done so on most prior hospitalizations) consider low-dose Eliquis 2.5mg BID for DVT proph IF her epistaxis does not recur daughter updated by phone day of admission Admission and Anticipated Discharge Date Admission Date: June 05, 2023 Subjective patient sitting in chair when I came to visit her she reported she felt dizzy this am when she transferred from bed to chair felt lightheaded nursing staff reported her o2 sats dropped with the transfer had a 3 minute episode of what appears to be some form of SVT about 1050am today she was sleeping in bed during the episode no wide complex tachycardia at any time feels a little nauseous today no BM since being at home - she cannot recall when it was did eat breakfast but not much lunch slept poorly last pm - at 3am her vitals were taken and her IV blew; multiple attempts were made to get a new IV finally fell back asleep a couple of hours later breathing is about the same as previous - episodes of dyspnea Review of Systems Review of Systems: gen - no fevers or chills; tired today cv - no chest pain pulm - mild dyspnea and dyspnea on exertion at times GI - bloated, nauseous - but no emesis overnight HENT - no further epistaxis Physical Exam Physical Exam: gen - NAD, sitting in chair, looks the same as yesterday HENT - no epistaxis; MMM neck - no obvious JVD sitting upright at 90 degrees heart - RRR, s1 s2, 2/6 systolic murmur LSB lungs - b/l rales - about the same as previous, no wheeze, no increased work of breathing; mildly decreased BS L base abd - soft NT BS+; distended ext - <1+ lymphedema b/l legs/feet, pulses 2+ b/l skin - pink stasis changes b/l shins psych - a/o x 3 Results & Data Results & Data Vital Signs (Past 12 Hours) Vital Signs Temp Pulse Pulse Resp BP Pulse Ox O2 Del Method 06/07/23 12:29 36.8 C 80 18 Room Air 06/07/23 10:12 Nasal Cannula 06/07/23 07:04 36.5 C 60 18 152/89 H 99 Room Air 06/07/23 07:27 80 06/07/23 02:47 36.6 C 82 20 173/117 H 94 Nasal Cannula O2 Flow Rate 06/07/23 12:29 06/07/23 10:12 2 06/07/23 07:04 06/07/23 07:27 06/07/23 02:47 2 Laboratory Results Laboratory Results - last 24 hr 06/06/23 06/06/23 06/07/23 16:12 20:10 05:37 Sodium 138 Potassium 4.2 Chloride 93 L Carbon Dioxide 43 H* Anion Gap 2 L BUN 20 Creatinine 0.84 Est Cr Clr Drug Dosing 68.7 Est GFR ( Amer) 78.8 Est GFR (Non-Af Amer) 68.0 BUN/Creatinine Ratio 23.8 H Glucose 91 POC Glucose 96 110 H Calcium 8.2 L Iron 21 L TIBC 220 L Unsaturated IBC 199 Transferrin % Sat 10 L Ferritin 89.5 Vitamin B12 Folate 06/07/23 06/07/23 06/07/23 05:37 07:34 11:26 Sodium Potassium Chloride Carbon Dioxide Anion Gap BUN Creatinine Est Cr Clr Drug Dosing Est GFR ( Amer) Est GFR (Non-Af Amer) BUN/Creatinine Ratio Glucose POC Glucose 108 H 129 H Calcium Iron TIBC Unsaturated IBC Transferrin % Sat Ferritin Vitamin B12 316 Folate 6.91 PG Care Time/CCT Total # of Minutes Spent Total Time Spent with Patient: Total time spent is greater than 50% in coordination of care (as documented) at patient's floor/unit and/or counseling patient: Coding Level of Care Code 97016 SUB INP/OBS CARE 2/35MIN Diagnoses Pneumonia J18.9 Post-tussive emesis R11.10 Hypertension I10 Hypertension type: unspecified Pericardial effusion I31.39 Pulmonary hypertension I27.20 COPD (chronic obstructive pulmonary disease) J44.9 Bronchiectasis J47.9 Hypothyroidism E03.9 Chronic respiratory failure with hypoxia, on home O2 therapy J96.11; Z99.81 Acute on chronic systolic heart failure I50.23 Epistaxis R04.0 Anemia D64.9 Diabetes mellitus E11.9 Abdominal distension R14.0 (3) Hypertension Hypertension type: unspecified Qualified Code(s): I10 - Essential (primary) hypertension
--- NOTE | 2023-06-07 14:16 | XRay Report ---
KUB HISTORY: Acute nausea with vomiting nausea, bloating, recent emesis COMPARISON: KUB 04/21/2023 FINDINGS: Left pleural effusion with left basilar opacities. Moderate colonic fecal retention. Air-fi lled loops of bowel within the central abdomen measuring up to 3.4 cm, possibly small bowel loops. N o renal calculi. No ureteral calculi. No pneumoperitoneum or pneumatosis. No fracture. IMPRESSION: 1. Moderate fecal retention. 2. Mildly dilated air-filled loops of bowel within the midabdomen may represent an ileus. No high-gra de small bowel obstruction identified. Follow-up recommended. 3. Left pleural effusion with left basilar opacities again noted. ACT 112: Negative or not required by law. The above report was generated using voice recognition software. It may contain grammatical, syntax o r spelling errors. Electronically signed by: Dashawn Ramírez M.D. 06/07/2023 2:15 PM
[2023-06-07] MEDS ORDERED: bisacodyL 10 MG SUPP PR STA (16:44)
[2023-06-07] MEDS: guaiFENesin SUGAR FREE 100 MG/5 ML UDC PO SCH ×2 (17:37→22:26)
[2023-06-08] MEDS: AMPICILLIN/SULBACTAM SOD 3,000 MG in 0.9 % SODIUM CHLORIDE 100 ML IV SCH ×4 (02:16→20:33)
[2023-06-08] MEDS: LEVOTHYROXINE SODIUM 150 MCG TABLET PO SCH (05:28)
[2023-06-08 07:29] LABS: Basophils # (auto) 0.04 K/uL (0-0.2); Basophils % (auto) 0.6 %; Eosinophils # (auto) 0.23 K/uL (0-0.50); Eosinophils % (auto) 3.3 %; Hematocrit (blood only) 29.6 % (37.0-47.0); Hemoglobin 9.2 g/dl (12.0-16.0); Immature Granulocytes # (auto) 0.02 K/uL (0.01-0.20); Immature Granulocytes % (auto) 0.3 %; Lymphocytes # (auto) 1.56 K/uL (1.2-3.4); Lymphocytes % (auto) 22.4 %; Mean Corpuscular Hemoglobin 27.5 pg (25.0-34.0); Mean Corpuscular Hgb Conc 31.1 g/dL (32.0-36.0); Mean Corpuscular Volume 88.6 fL (80.0-100.0); Mean Platelet Volume 10.5 fL (9.4-12.4); Monocytes # (auto) 0.64 K/uL (0.11-0.59); Monocytes % (auto) 9.2 %; Neutrophils # (auto) 4.46 K/uL (1.40-6.50); Neutrophils % (auto) 64.2 %; Platelet Count 326 K/uL (130-400); RDW Coefficient of Variation 14.3 % (11.5-14.5); RDW Standard Deviation 46.6 fL (36.4-46.3); Red Blood Count 3.34 M/uL (4.20-5.40); White Blood Count 6.95 K/ul (4.8-10.8)
[2023-06-08] MEDS ORDERED: AZITHROMYCIN 250 MG TAB PO ONE (08:00)
[2023-06-08 08:06] LABS: BUN Creatinine Ratio 28.2 (10-20); Calcium 8.4 mg/dl (8.6-10.3); Creatinine Clr Calc Pharmacy 65.7 ml/min; Est GFR (African American) 77.7 ml/min; Potassium 4.1 mmol/L (3.5-5.1)
[2023-06-08] MEDS: CYANOCOBALAMIN (B-12) 500 MCG TABLET PO SCH (08:13)
[2023-06-08] MEDS: FOLIC ACID 1 MG TAB PO SCH (08:13)
[2023-06-08] MEDS: UMECLIDINIUM/VILANTEROL 62.5/25MCG 7 PUFFS/INHALER INH SCH (08:14)
[2023-06-08] MEDS: LOSARTAN POTASSIUM 50 MG TAB PO SCH (08:14)
[2023-06-08] MEDS: SPIRONOLACTONE 25 MG TAB PO SCH (08:14)
[2023-06-08] MEDS: METOPROLOL SUCC 50MG EXT REL TAB PO SCH (08:14)
[2023-06-08] MEDS: POTASSIUM CHLORIDE PWD 20 MEQ PACK PO SCH (08:14)
[2023-06-08] MEDS: PANTOprazole 40 MG TAB PO SCH (08:14)
[2023-06-08] MEDS: BUMETANIDE 1 MG TAB PO SCH (08:15)
[2023-06-08] MEDS: POLYETHYLENE (MIRALAX) 17 GM PACK PO SCH (08:15)
[2023-06-08] MEDS: SENNA 8.6 MG TAB PO SCH (08:16)
[2023-06-08] MEDS: guaiFENesin SUGAR FREE 100 MG/5 ML UDC PO SCH ×4 (08:18→20:33)
[2023-06-08] MEDS: LANTUS PER UNIT CHARGE SQ SCH (08:25)
[2023-06-08] MEDS: INSULIN ASPART PER UNIT CHARGE SC SCH ×4 (08:25→20:42)
--- NOTE | 2023-06-08 15:53 | Hospitalist Progress Note ---
Date of Service June 08, 2023 Assessment & Plan (1) Pneumonia: Plan: LLL, as well as tree-in-bud opacities elsewhere. this could represent aspiration from recent vomiting events. she has no dysphagia, however. the LLL opacity could be more typical pneumonia. cont unasyn. day #3 of such. added azithromycin for atypical coverage. at risk of non-bacterial infections as well. COVID/flu/RSV were negative. blood cx's remain negative. (2) Post-tussive emesis: Plan: change mucinex to liquid robitussin (she doesn't want to take mucinex) to thin her mucous. PPI in the event there is an element of reflux leading to emesis/regurgitation. follow. (3) Hypertension: Plan: resumed ARB today cont bumex, aldactone and metoprolol succinate Patient has high bicarb level because of being on Bumex leading to slight metabolic alkalosis. (4) Pericardial effusion: Plan: small on echo 04/18/[address] chest this admission -- "Small pericardial effusion with equivocal pericardial thickening. Correlate clinically to exclude pericarditis." she has no symptoms of pericarditis at this time effusion likely due to the CHF itself should have f/u echo in the future, however, to follow it (5) Pulmonary hypertension: Plan: mild on last echo (6) COPD (chronic obstructive pulmonary disease): Plan: no exacerbation at this time (7) Bronchiectasis: Plan: seen on CT chest earlier this year was referred to pulmonary but has not made it yet to their office due to difficulty leaving her house no bronchiectasis exacerbation at this time bronchiectasis/COPD/?ILD likely all account for her chronic hypoxic resp failure (8) Hypothyroidism: Plan: TSH wnl compensated cont synthroid (9) Chronic respiratory failure with hypoxia, on home O2 therapy: Plan: due to COPD/bronchiectasis/?ILD stable on home O2 at this time (10) Acute on chronic systolic heart failure: Plan: EF 35-40% on echo in April 2023 perhaps very mild decompensation - dry weight is upper 80s kg cont p.o. bumex & aldactone with daily BMPs and weights cont metoprolol succ cont ARB (11) Epistaxis: Plan: right nare prior to admission has not recurred saline nasal spray humidify the O2 etc (12) Anemia: Plan: Fe studies suggestive of mild Fe def (transferrin sat <20%) consider IV venofer B12/folate levels both technically normal but are low-normal --> supplement both (13) Diabetes mellitus: Plan: a1c >7% in March cont lantus cont novolog adjust as needed (14) Abdominal distension: Plan: no BM in at least 5+ days KUB shows impaction plus minus ileus On Dulcolax suppository plus MiraLAX plus senna Plan DVT proph - she is at high risk of DVT given poor mobility she typically refuses chemical DVT proph (as done so on most prior hospitalizations) consider low-dose Eliquis 2.5mg BID for DVT proph IF her epistaxis does not recur daughter updated by phone day of admission Admission and Anticipated Discharge Date Admission Date: June 05, 2023 Subjective Patient has no major complaints today. Denies chest pain or shortness of breath. Review of Systems Review of Systems: All systems reviewed & are unremarkable except as noted in Subjective Physical Exam Physical Exam: General: Awake, conversant Heart: S1, S2/regular rate and rhythm, no murmur rubs or gallops Lungs: Bilateral crackles. Normal effort Abdomen: Soft/nontender/nondistended. No hepatosplenomegaly Extremities: No clubbing/cyanosis. 1-2+ pitting bilateral edema. Patient says that her edema is much better than her usual. Behavior: Appropriate, cooperative Results & Data Results & Data Vital Signs (Past 12 Hours) Vital Signs Temp Pulse Pulse Resp BP Pulse Ox O2 Del Method 06/08/23 15:45 36.6 C 78 18 179/83 H 96 Nasal Cannula 06/08/23 10:59 36.8 C 71 18 161/76 H 96 Nasal Cannula 06/08/23 08:00 70 06/08/23 08:00 Nasal Cannula 06/08/23 07:46 36.6 C 72 20 148/75 H 96 Nasal Cannula O2 Flow Rate 06/08/23 15:45 2 06/08/23 10:59 2 06/08/23 08:00 06/08/23 08:00 2 06/08/23 07:46 2 Laboratory Results Abnormal lab results 06/07/23 06/07/23 06/08/23 Range/Units 16:46 20:34 06:26 RBC 3.34 L (4.20-5.40) M/uL Hgb 9.2 L (12.0-16.0) g/dl Hct 29.6 L (37.0-47.0) % MCHC 31.1 L (32.0-36.0) g/dL RDW Std Deviation 46.6 H (36.4-46.3) fL [place] # (Auto) 0.64 H (0.11-0.59) K/uL Chloride (98-107) mmol/L Carbon Dioxide (21-32) mmol/L Anion Gap (3-11) BUN (6-23) mg/dl BUN/Creatinine Ratio (-20) POC Glucose 111 H 159 H (70-99) mg/dl Calcium (8.6-10.3) mg/dl 06/08/23 06/08/23 06/08/23 Range/Units 06:26 07:18 11:15 RBC (4.20-5.40) M/uL Hgb (12.0-16.0) g/dl Hct (37.0-47.0) % MCHC (32.0-36.0) g/dL RDW Std Deviation (36.4-46.3) fL [place] # (Auto) (0.11-0.59) K/uL Chloride 95 L (98-107) mmol/L Carbon Dioxide 43 H* (21-32) mmol/L Anion Gap 2 L (3-11) BUN 24 H (6-23) mg/dl BUN/Creatinine Ratio 28.2 H (10-20) POC Glucose 103 H 147 H (70-99) mg/dl Calcium 8.4 L (8.6-10.3) mg/dl 06/08/23 Range/Units 16:10 RBC (4.20-5.40) M/uL Hgb (12.0-16.0) g/dl Hct (37.0-47.0) % MCHC (32.0-36.0) g/dL RDW Std Deviation (36.4-46.3) fL [place] # (Auto) (0.11-0.59) K/uL Chloride (98-107) mmol/L Carbon Dioxide (21-32) mmol/L Anion Gap (3-11) BUN (6-23) mg/dl BUN/Creatinine Ratio (10-20) POC Glucose 133 H (70-99) mg/dl Calcium (8.6-10.3) mg/dl PG Care Time/CCT Total # of Minutes Spent Total Time Spent with Patient: Total time spent is greater than 50% in coordination of care (as documented) at patient's floor/unit and/or counseling patient: Coding Level of Care Code 64974 SUB INP/OBS CARE 2/35MIN Diagnoses Pneumonia J18.9 Post-tussive emesis R11.10 Hypertension I10 Hypertension type: unspecified Pericardial effusion I31.39 Pulmonary hypertension I27.20 COPD (chronic obstructive pulmonary disease) J44.9 Bronchiectasis J47.9 Hypothyroidism E03.9 Chronic respiratory failure with hypoxia, on home O2 therapy J96.11; Z99.81 Acute on chronic systolic heart failure I50.23 Epistaxis R04.0 Anemia D64.9 Diabetes mellitus E11.9 Abdominal distension R14.0 Time Spent (min) 35 (3) Hypertension Hypertension type: unspecified Qualified Code(s): I10 - Essential (primary) hypertension
[2023-06-09] MEDS: AMPICILLIN/SULBACTAM SOD 3,000 MG in 0.9 % SODIUM CHLORIDE 100 ML IV SCH ×4 (01:17→20:37)
[2023-06-09] MEDS: LEVOTHYROXINE SODIUM 150 MCG TABLET PO SCH (05:39)
[2023-06-09] MEDS: LOSARTAN POTASSIUM 50 MG TAB PO SCH (09:20)
[2023-06-09] MEDS: SPIRONOLACTONE 25 MG TAB PO SCH (09:20)
[2023-06-09] MEDS: PANTOprazole 40 MG TAB PO SCH (09:20)
[2023-06-09] MEDS: METOPROLOL SUCC 50MG EXT REL TAB PO SCH (09:20)
[2023-06-09] MEDS: CYANOCOBALAMIN (B-12) 500 MCG TABLET PO SCH (09:20)
[2023-06-09] MEDS: LANTUS PER UNIT CHARGE SQ SCH (09:21)
[2023-06-09] MEDS: FOLIC ACID 1 MG TAB PO SCH (09:21)
[2023-06-09] MEDS: POTASSIUM CHLORIDE PWD 20 MEQ PACK PO SCH (09:21)
[2023-06-09] MEDS: AZITHROMYCIN 250 MG TAB PO SCH (09:21)
[2023-06-09] MEDS: BUMETANIDE 1 MG TAB PO SCH (09:21)
[2023-06-09] MEDS: INSULIN ASPART PER UNIT CHARGE SC SCH ×4 (09:21→20:50)
[2023-06-09] MEDS: SENNA 8.6 MG TAB PO SCH (09:21)
[2023-06-09] MEDS: POLYETHYLENE (MIRALAX) 17 GM PACK PO SCH (09:25)
[2023-06-09 09:44] LABS: BUN Creatinine Ratio 23.3 (10-20); Calcium 8.8 mg/dl (8.6-10.3); Creatinine Clr Calc Pharmacy 64.9 ml/min; Est GFR (African American) 76.6 ml/min; Est GFR (Non-African American) 66.1 ml/min; Potassium 4.5 mmol/L (3.5-5.1)
[2023-06-09] MEDS: guaiFENesin SUGAR FREE 100 MG/5 ML UDC PO SCH ×4 (10:06→20:52)
[2023-06-09] MEDS: UMECLIDINIUM/VILANTEROL 62.5/25MCG 7 PUFFS/INHALER INH SCH (11:58)
[2023-06-09] MEDS ORDERED: bisacodyL 10 MG SUPP PR PRN (12:39)
--- NOTE | 2023-06-09 14:16 | Hospitalist Progress Note ---
Date of Service June 09, 2023 Assessment & Plan (1) Pneumonia: Plan: LLL, as well as tree-in-bud opacities elsewhere. this could represent aspiration from recent vomiting events. she has no dysphagia, however. the LLL opacity could be more typical pneumonia. cont unasyn. added azithromycin for atypical coverage. COVID/flu/RSV were negative. blood cx's remain negative. Clinically improving Likely discharge soon on Augmentin and azithromycin to complete the course (2) Post-tussive emesis: Plan: change mucinex to liquid robitussin (she doesn't want to take mucinex) to thin her mucous. PPI in the event there is an element of reflux leading to emesis/regurgitation. follow. (3) Hypertension: Plan: resumed ARB today cont bumex, aldactone and metoprolol succinate Patient has high bicarb level because of being on Bumex leading to slight metabolic alkalosis. (4) Pericardial effusion: Plan: small on echo 04/18/[address] chest this admission -- "Small pericardial effusion with equivocal pericardial thickening. Correlate clinically to exclude pericarditis." she has no symptoms of pericarditis at this time effusion likely due to the CHF itself should have f/u echo in the future, however, to follow it (5) Pulmonary hypertension: Plan: mild on last echo (6) COPD (chronic obstructive pulmonary disease): Plan: no exacerbation at this time (7) Bronchiectasis: Plan: seen on CT chest earlier this year was referred to pulmonary but has not made it yet to their office due to difficulty leaving her house no bronchiectasis exacerbation at this time bronchiectasis/COPD/?ILD likely all account for her chronic hypoxic resp failure (8) Hypothyroidism: Plan: TSH wnl compensated cont synthroid (9) Chronic respiratory failure with hypoxia, on home O2 therapy: Plan: due to COPD/bronchiectasis/?ILD stable on home O2 at this time (10) Acute on chronic systolic heart failure: Plan: EF 35-40% on echo in April 2023 perhaps very mild decompensation - dry weight is upper 80s kg cont p.o. bumex & aldactone with daily BMPs and weights cont metoprolol succ cont ARB (11) Epistaxis: Plan: right nare prior to admission has not recurred saline nasal spray humidify the O2 etc (12) Anemia: Plan: Fe studies suggestive of mild Fe def (transferrin sat <20%) consider IV venofer B12/folate levels both technically normal but are low-normal --> supplement both (13) Diabetes mellitus: Plan: a1c >7% in March cont lantus cont novolog adjust as needed (14) Abdominal distension: Plan: no BM in at least 5+ days KUB shows impaction plus minus ileus on MiraLAX plus senna Add Dulcolax suppository Plan DVT proph - she is at high risk of DVT given poor mobility she typically refuses chemical DVT proph (as done so on most prior hospitalizations) since her epistaxis has not recurred, I will start her on Eliquis 2.5 mg twice daily daughter updated by phone day of admission Admission and Anticipated Discharge Date Admission Date: June 05, 2023 Subjective patient feels well today. Not short of breath. She says that she has not had a bowel movement since hospitalization. Review of Systems Review of Systems: All systems reviewed & are unremarkable except as noted in Subjective Physical Exam Physical Exam: General: Awake, conversant Heart: S1, S2/regular rate and rhythm, no murmur rubs or gallops Lungs: Bilateral crackles. Normal effort Abdomen: Soft/nontender/nondistended. No hepatosplenomegaly Extremities: No clubbing/cyanosis. 1-2+ pitting bilateral edema. Patient says that her edema is much better than her usual. Behavior: Appropriate, cooperative Results & Data Results & Data Vital Signs (Past 12 Hours) Vital Signs Temp Pulse Pulse Resp BP Pulse Ox O2 Del Method 06/09/23 11:16 37.1 C 77 19 146/68 H 98 Nasal Cannula 06/09/23 08:00 72 06/09/23 08:00 Nasal Cannula 06/09/23 07:01 36.6 C 73 20 148/69 H 98 Nasal Cannula 06/09/23 03:23 36.5 C 69 20 158/71 H 99 Nasal Cannula 06/09/23 02:53 76 O2 Flow Rate 06/09/23 11:16 2 06/09/23 08:00 06/09/23 08:00 2 06/09/23 07:01 2 06/09/23 03:23 2 06/09/23 02:53 Laboratory Results Abnormal lab results 06/08/23 06/08/23 06/09/23 Range/Units 16:10 20:21 07:17 Chloride (98-107) mmol/L Carbon Dioxide (21-32) mmol/L BUN/Creatinine Ratio (10-20) Glucose (70-99(Fasting)) mg/dl POC Glucose 133 H 179 H 112 H (70-99) mg/dl 06/09/23 06/09/23 Range/Units 08:35 11:28 Chloride 94 L (98-107) mmol/L Carbon Dioxide 43 H* (21-32) mmol/L BUN/Creatinine Ratio 23.3 H (10-20) Glucose 131 H (70-99(Fasting)) mg/dl POC Glucose 156 H (70-99) mg/dl PG Care Time/CCT Total # of Minutes Spent Total Time Spent with Patient: Total time spent is greater than 50% in coordination of care (as documented) at patient's floor/unit and/or counseling patient: Coding Level of Care Code 84980 SUB INP/OBS CARE 2/35MIN Diagnoses Pneumonia J18.9 Post-tussive emesis R11.10 Hypertension I10 Hypertension type: unspecified Pericardial effusion I31.39 Pulmonary hypertension I27.20 COPD (chronic obstructive pulmonary disease) J44.9 Bronchiectasis J47.9 Hypothyroidism E03.9 Chronic respiratory failure with hypoxia, on home O2 therapy J96.11; Z99.81 Acute on chronic systolic heart failure I50.23 Epistaxis R04.0 Anemia D64.9 Diabetes mellitus E11.9 Abdominal distension R14.0 Time Spent (min) 35 (3) Hypertension Hypertension type: unspecified Qualified Code(s): I10 - Essential (primary) hypertension
[2023-06-09] MEDS: APIXABAN 2.5 MG TAB PO SCH (20:59)
[2023-06-10] MEDS: AMPICILLIN/SULBACTAM SOD 3,000 MG in 0.9 % SODIUM CHLORIDE 100 ML IV SCH ×3 (01:27→12:47)
[2023-06-10 06:38] LABS: BUN Creatinine Ratio 23.9 (10-20); Calcium 8.4 mg/dl (8.6-10.3); Creatinine Clr Calc Pharmacy 63.4 ml/min; Est GFR (African American) 74.5 ml/min; Est GFR (Non-African American) 64.3 ml/min; Potassium 4.3 mmol/L (3.5-5.1)
[2023-06-10] MEDS: LEVOTHYROXINE SODIUM 150 MCG TABLET PO SCH (07:34)
[2023-06-10 07:41] VITALS: BP 178/74; TEMP 97.3; O2SAT 94
[2023-06-10] MEDS: SPIRONOLACTONE 25 MG TAB PO SCH (09:00)
[2023-06-10] MEDS: FOLIC ACID 1 MG TAB PO SCH (09:00)
[2023-06-10] MEDS: BUMETANIDE 1 MG TAB PO SCH (09:00)
[2023-06-10] MEDS: METOPROLOL SUCC 50MG EXT REL TAB PO SCH (09:00)
[2023-06-10] MEDS: PANTOprazole 40 MG TAB PO SCH (09:01)
[2023-06-10] MEDS: LOSARTAN POTASSIUM 50 MG TAB PO SCH (09:01)
[2023-06-10] MEDS: POTASSIUM CHLORIDE PWD 20 MEQ PACK PO SCH (09:01)
[2023-06-10] MEDS: AZITHROMYCIN 250 MG TAB PO SCH (09:01)
[2023-06-10] MEDS: CYANOCOBALAMIN (B-12) 500 MCG TABLET PO SCH (09:01)
[2023-06-10] MEDS: SENNA 8.6 MG TAB PO SCH (09:02)
[2023-06-10] MEDS: POLYETHYLENE (MIRALAX) 17 GM PACK PO SCH (09:02)
[2023-06-10] MEDS: UMECLIDINIUM/VILANTEROL 62.5/25MCG 7 PUFFS/INHALER INH SCH (09:04)
[2023-06-10] MEDS: APIXABAN 2.5 MG TAB PO SCH (09:04)
[2023-06-10] MEDS: guaiFENesin SUGAR FREE 100 MG/5 ML UDC PO SCH ×2 (09:12→12:11)
[2023-06-10] MEDS: INSULIN ASPART PER UNIT CHARGE SC SCH ×2 (09:28→12:14)
[2023-06-10] MEDS: LANTUS PER UNIT CHARGE SQ SCH (09:29)
[2023-06-10 11:32] VITALS: PULSE 80
--- NOTE | 2023-06-10 12:05 | Discharge Summary ---
Date of Service June 10, 2023 Admission HPI Per Admitting Provider The patient is a 77-year-old female with a past medical history including chronic hypercapnic and hypoxic respiratory failure, left pleural effusion, hypertension, HFrEF, pericardial effusion, pulmonary hypertension, c ardiomyopathy, palliative care discussions, COPD, hypothyroidism, migraine headache, hypercholesterolemia, nephrotic range proteinuria and asthma. Patient was recently was admitted from 05/25-05/31/2023 with HFrEF exacerbation. She reports that she had been improving at home, but then awoke this morning with symptoms as above. She reports that she has been wearing her oxygen more at nighttime now also at 2.5 L and it is not humidified Admission Exam Per Admitting Provider The patient is awake, alert and oriented 3, well developed and well nourished, normocephalic and atraumatic, lying in bed and in no acute distress. HEENT--PERRL, EOMI, mucous membranes and oropharynx mildly dry. Neck--supple. No JVD. No bruits. Thyroid normal, trachea midline, no adenopathy. Heart--normal S1 and S2. No murmurs, rubs or gallops. Lungs--decreased breath sounds on left, few coarse breath sounds bilaterally otherwise. No respiratory distress, no accessory muscle use. Abdomen--normal bowel sounds and soft. Nontender. Nondistended, no hernias or masses, no organomegaly. Extremities--no cyanosis or clubbing. No edema. Dermatologic--normal skin turgor, normal color, no abnormal lymph nodes, no rash. Neurologic--cranial nerves II through XII grossly intact. Rheumatologic--normal range of motion. Psychiatric--mildly anxious Principal Diagnosis aspiration pneumonia Ileus/fecal impaction leading to nausea vomiting Discharge Exam General: Awake, conversant Heart: S1, S2/regular rate and rhythm, no murmur rubs or gallops Lungs: Bilateral crackles. Normal effort Abdomen: Soft/nontender/nondistended. No hepatosplenomegaly Extremities: No clubbing/cyanosis. 1-2+ pitting bilateral edema. Patient says that her edema is much better than her usual. Behavior: Appropriate, cooperative Discharge Data Allergies Allergy/AdvReac Type Severity Reaction Status Date / Time aspirin Allergy Severe HIVES; Verified 06/04/23 11:38 DIFFICULTY BREATHING colchicine Allergy Severe Difficulty Verified 06/04/23 11:38 Breathing Iodinated Contrast Media Allergy Intermediate Rash Verified 06/04/23 11:38 aspartame Allergy Unknown Unknown Verified 06/04/23 11:38 Benzodiazepines Allergy Unknown Unknown Verified 06/04/23 11:38 diltiazem Allergy Unknown UNKNOWN Verified 06/04/23 11:38 REACTION doxycycline Allergy Unknown Unknown Verified 06/04/23 11:38 melon Allergy Unknown Unknown Verified 06/04/23 11:38 nifedipine Allergy Unknown UNKNOWN Verified 06/04/23 11:38 REACTION simvastatin Allergy Unknown UNKNOWN Verified 06/04/23 11:38 REACTION PER PT sucralose Allergy Unknown Unknown Verified 06/04/23 11:38 vancomycin Allergy Unknown UNKNOWN Verified 06/04/23 11:38 REACTION Consultations 06/05/23 05:32 ED Decision to Admit Stat Ordered Studies 06/05/23 04:15 CT head/brain wo con Stat 06/05/23 06:23 CT chest diagnostic wo con Stat Hospital Course (1) Pneumonia: LLL, as well as tree-in-bud opacities elsewhere. this could represent aspiration from recent vomiting events. she has no dysphagia, however. the LLL opacity could be more typical pneumonia. discharged on Augmentin and azithromycin to complete the course COVID/flu/RSV were negative. blood cx's remain negative. (2) Post-tussive emesis: PPI in the event there is an element of reflux leading to emesis/regurgitation. follow. (3) Hypertension: resumed ARB cont bumex, aldactone and metoprolol succinate Patient has high bicarb level because of being on Bumex leading to slight metabolic alkalosis. (4) Pericardial effusion: small on echo 04/18/[address] chest this admission -- "Small pericardial effusion with equivocal pericardial thickening. Correlate clinically to exclude pericarditis." she has no symptoms of pericarditis at this time effusion likely due to the CHF itself should have f/u echo in the future, however, to follow it (5) Pulmonary hypertension: mild on last echo (6) COPD (chronic obstructive pulmonary disease): no exacerbation at this time (7) Bronchiectasis: seen on CT chest earlier this year was referred to pulmonary but has not made it yet to their office due to difficulty leaving her house no bronchiectasis exacerbation at this time bronchiectasis/COPD/?ILD likely all account for her chronic hypoxic resp failure (8) Hypothyroidism: TSH wnl compensated cont synthroid (9) Chronic respiratory failure with hypoxia, on home O2 therapy: due to COPD/bronchiectasis/?ILD stable on home O2 at this time (10) Acute on chronic systolic heart failure: EF 35-40% on echo in April 2023 perhaps very mild decompensation - dry weight is upper 80s kg cont p.o. bumex & aldactone with daily BMPs and weights cont metoprolol succ cont ARB (11) Epistaxis: right nare prior to admission has not recurred saline nasal spray humidify the O2 etc (12) Anemia: Fe studies suggestive of mild Fe def (transferrin sat <20%) consider IV venofer B12/folate levels both technically normal but are low-normal --> supplement both (13) Diabetes mellitus: a1c >7% in March cont lantus cont novolog adjust as needed (14) Abdominal distension: had bowel movements yesterday KUB shows impaction plus minus ileus on MiraLAX plus senna Plan DVT proph - she is at high risk of DVT given poor mobility she typically refuses chemical DVT proph (as done so on most prior hospitalizations) daughter updated by phone day of admission Total Time Total Time Spent Total Time Spent (In Minutes): 35 Discharge Plan Discharge Items Patient Disposition: Home - Home Health Services Reason For Visit: ACUTE ON CHRONIC RESP FAILURE WITH HYPOXIA Discharge Diagnosis: Aspiration pneumonia Mild ileus/ fecal impaction leading to vomiting Condition on Discharge: Fair Activity: Resume your previous activity Non-emergency contact: Primary Care Provider Call non-emergency contact if: you have any medication questions and your symptoms worsen Follow-up/Referrals: Luann France MD [Primary Care Provider] - 06/15/23 1:00 pm (Follow up scheduled on 06/15/23 @ 1pm) Diet: Carb Consistent or DM2 and Heart Healthy Addtl Attending Provider Instructions: Advised to follow-up with PCP in 1 week Pending Studies at Discharge: No Stand-Alone Forms: My [facility] Medications and DC Order Prescriptions: New azithromycin 250 mg tablet 250 mg PO DAILY 3 Days Qty: 3 0RF amoxicillin-pot clavulanate [Augmentin] 500-125 mg tablet 1 tab PO BID 3 Days Qty: 6 0RF Continued levothyroxine 150 mcg tablet 150 mcg PO DAILYBB Qty: 90 3RF bumetanide 2 mg tablet 2 mg PO DAILY Qty: 120 3RF Rx Instructions: May increase to 4 mg daily PRN spironolactone 25 mg tablet 25 mg PO DAILY Qty: 90 3RF potassium chloride 20 mEq packet 20 meq PO DAILY 30 Days Qty: 30 2RF losartan 50 mg tablet 50 mg PO QAM Qty: 30 2RF Patient Comments: PT STATED SHE DOES NOT TAKE THIS BP MEDICATION. albuterol sulfate 90 mcg/actuation HFA aerosol inhaler 2 puff INHALATION Q4H PRN (Reason: cough/wheeze/shortness of breath) Qty: 18 1RF (DME) Spacer for Inhaler Misc See Rx Instructions .Route Qty: 1 0RF Rx Instructions: As directed acetaminophen [Tylenol Extra Strength] 500 mg tablet 1,000 mg PO Q8H PRN (Reason: Pain) insulin detemir U-100 100 unit/mL (3 mL) insulin pen 30 unit subcut QAM Patient Comments: takes late morning (DME) OneTouch Verio test strips Strip See Rx Instructions .ROUTE .MEDSUPPLY Qty: 100 3RF Rx Instructions: for once a day testing (DME) pen needle, diabetic [BD Ultra-Fine Micro Pen Needle] 32 gauge x 1/4" needle See Rx Instructions .ROUTE .MEDSUPPLY Qty: 50 0RF Rx Instructions: As directed albuterol sulfate 2.5 mg/0.5 mL solution for nebulization 2.5 mg inhalation Q4H PRN (Reason: shortness of breath or wheezing or cough) Qty: 1 0RF triamcinolone acetonide 0.1 % cream 1 applic EXT BID PRN (Reason: FLARE UPS) Rx Instructions: apply twice daily in thin amounts to scaly, dry skin on front of legs; use for 5-7 days only. Anoro Ellipta 62.5-25 mcg/actuation Blister With Device 1 ea inhalation DAILY Qty: 0 0RF metoprolol succinate 50 mg Tablet Extended Release 24 Hr 100 mg PO DAILY 30 Days Qty: 60 0RF Discharge Orders: Discharge Order (Routine); Ordered 06/10/23 Ordered By: Dae Peter Admission Data Admit Date/Time: 06/05/23 06:36 Attending Provider: Dae Peter Admit Provider: Kenny Farfan Primary Care Provider: Luann France Other Providers: Kenny Farfan Other Interventions: Discharge Summary Assessment (RN) Last Done: 06/10/23 11:30 Coding Level of Care Code 74017 INP/OBS DISCH >30 MIN Diagnoses Pneumonia J18.9 Post-tussive emesis R11.10 Hypertension I10 Hypertension type: unspecified Pericardial effusion I31.39 Pulmonary hypertension I27.20 COPD (chronic obstructive pulmonary disease) J44.9 Bronchiectasis J47.9 Hypothyroidism E03.9 Chronic respiratory failure with hypoxia, on home O2 therapy J96.11; Z99.81 Acute on chronic systolic heart failure I50.23 Epistaxis R04.0 Anemia D64.9 Diabetes mellitus E11.9 Abdominal distension R14.0
[2023-06-11] MEDS ORDERED: AMOXICILLIN/CLAVULANATE 500 MG TAB PO SCH
[2023-06-11] MEDS ORDERED: AZITHROMYCIN 250 MG TAB PO SCH
== END 2023-06-10 15:21 | disposition home health service (06) | DRG 177 ==
LOC: ED 04:08 → 2S 06:36 → SUATTDRO 06:36 → 2S 08:39

== ENCOUNTER 2024-01-02 13:09 | Inpatient (IN) ==
[2024-01-02 14:32] LABS: HCO3 VBG 33 mmol/L; PCO2 VBG 54 mmHg (38-50); PO2 VBG 60 mmHg
--- NOTE | 2024-01-02 14:41 | Emergency Department Note ---
Impression & Plan Acute and chronic respiratory failure, COPD (chronic obstructive pulmonary disease), CHF (congestive heart failure) ED Provider Note NAME: LACI SOLITARIO AGE: 78 SEX: F : 1945 ARRIVES VIA: Ambulance INFORMANT: Patient ED PROVIDER(S): Darshan Yoder MD CHIEF COMPLAINT: Shortness of breath, referred. PLAN: Disposition: Admit MEDICAL DECISION MAKING: The patient is a pleasant 78-year-old woman with a past medical history of chronic respiratory failure with history of COPD and CHF on 2 L home oxygen, pulmonary hypertension, bronchiectasis, CKD who presents to the emergency department via EMS referred by her primary care doctor for worsening shortness of breath over the past couple weeks but particularly severe last night into today where she reports she felt she was having an asthma attack. She reports she has run out of her home nebulizer medications and felt this may have been part of the problem. She did receive nebulizer treatment by EMS and felt significant improvement. She denies any fevers, chest pain. She reports shortness of breath with minimal exertion. She reports her legs have become increasingly swollen. She reports she is compliant with her diuretic medications. On my evaluation the patient is chronically ill-appearing but no acute distress, afebrile with blood pressure in the 200s and vital signs otherwise stable. She appears hypervolemic with 3+ bilateral lower extremity edema. Lung sounds are diminished at the bases with wheezes of bilateral lung brooke. EKG without overt acute ischemia. Chest x-ray with interstitial vascular thickening. WBC and platelets within normal limits. H/H similar to prior values. VBG with pCO2 of 54 consistent with patient's history of COPD and chronic respiratory failure. pH is within normal limits. Glucose is 330 with chemistry without metabolic acidosis. LFTs are unremarkable. High-sensitivity troponin 20.8, nonspecific in the setting of history of known cardiomyopathy. BNP 139, likely underestimated given the patient's obesity and consistent with the patient's history of CHF and hypervolemic appearance. UA without convincing evidence infection. Respiratory BioFire was negative. Given the patient's acute on chronic respiratory failure complicated by both her COPD and CHF patient does agree with plan for admission for further management. Treatment initiated with Solu-Medrol, guaifenesin, DuoNeb as well as IV Bumex. Case was discussed with Dr. Lopez, [facility] [place], who will evaluate the patient for admission. Further management per admitting team. Triage Nursing notes reviewed and agree them. Prior/external medical records reviewed Vital Signs: reviewed Differential diagnosis: Reactive airway disease, pneumonia, pneumothorax, COPD, CHF, infections, cardiac ischemia, pulmonary embolism, musculoskeletal, gastrointestinal, as well as other pathologies. ER treatment provided: See below. Diagnostics interpreted by me: ECG: Sinus tachycardia, occasional PVCs, 103 bpm, no ectopy, no overt ST elevation or depression, QTc 432, QRS 80 Cardiac Monitoring: An order for continuous cardiac monitoring was placed and demonstrated Sinus tachycardia, occasional PVCs, 103 bpm, no ectopy. Laboratory studies: See below Imaging studies: See below Consultation(s): Case was discussed with Dr. Lopez, [facility] [place] hospitalist, who will evaluate the patient for admission. HPI: The patient is a pleasant 78-year-old woman with a past medical history of chronic respiratory failure with history of COPD and CHF on 2 L home oxygen, pulmonary hypertension, bronchiectasis, CKD who presents to the emergency department via EMS referred by her primary care doctor for worsening shortness of breath over the past couple weeks but particularly severe last night into today where she reports she felt she was having an asthma attack. She reports she has run out of her home nebulizer medications and felt this may have been part of the problem. She did receive nebulizer treatment by EMS and felt significant improvement. She denies any fevers, chest pain. She reports shortness of breath with minimal exertion. She reports her legs have become increasingly swollen. She reports she is compliant with her diuretic medications. ROS: See above HPI for pertinent positives & negatives. A total of 10 systems reviewed and were otherwise negative. VITALS:See Below PHYSICAL EXAMINATION: GENERAL: Awake, alert, chronically ill-appearing, in no distress HENT: Normocephalic, atraumatic. Oropharynx with dry mucous membranes and otherwise unremarkable. EYES: Normal conjunctiva. Sclera non-icteric. NECK: Supple. No nuchal rigidity. FROM. No JVD. RESPIRATORY: Diminished at the bases with wheezes of bilateral lung brooke. Mildly dyspneic but no acute distress. CARDIAC: Regular rate, normal rhythm. Extremities warm and well perfused. Pulses equal. ABDOMEN: Soft, non-distended. No tenderness to palpation. No rebound or guarding. No masses. RECTAL: Deferred. MUSCULOSKELETAL: Chest examination reveals no tenderness. The back is symmetrical on inspection without obvious abnormality. There is no CVA tenderness to palpation. No joint edema. LOWER EXTREMITIES: Calves are equal size bilaterally and non-tender. 3+ bilateral lower extremity lymphedema. No discoloration. NEURO: Normal sensorium. No sensory or motor deficits noted. SKIN: No rash or jaundice noted. Darshan Yoder MD Past Med/Surg History Medical History Abdominal distension Epistaxis Acute on chronic systolic heart failure Nausea & vomiting Near syncope Hydronephrosis, bilateral Acute UTI Hypertension Hypothyroidism COPD (chronic obstructive pulmonary disease) Acute on chronic heart failure with preserved ejection fraction (HFpEF) Renal cyst, left Obstructive pattern present on pulmonary function testing Pleuritic chest pain 4x in the past year CHF exacerbation HX-RECENTLY (HFpEF) heart failure with preserved ejection fraction Acute and chronic respiratory failure with hypoxia Lymphedema Chest pain hx-"more pleuritic pain, not cardiac related" Type 2 diabetes mellitus with peripheral neuropathy Chronic edema Hypomagnesemia Hypokalemia Chronic respiratory failure with hypoxia, on home O2 therapy O2 prn at 2L Elevated serum globulin level Multiple drug allergies Ambulatory dysfunction Wheelchair bound Right knee DJD Lower extremity edema Hx of thyroid cancer History of seizures as a child Financial difficulties Diastolic heart failure HX Hypothyroidism, postablative Acute diastolic (congestive) heart failure HX HTN (hypertension) Pleurisy without effusion have been hospitalized 4x in the past year for this History of ectopic Hx of papillary thyroid carcinoma Gait abnormality Dyslipidemia Vitamin D deficiency Hx of pleurisy HTN (hypertension) Surgical History History of D&C Hx of thyroidectomy Hx of brain surgery 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 during the procedure Hx of section Family History Father Stroke Mother Dementia Diabetes Sister Macular degeneration Brother Macular degeneration Other TIA (transient ischemic attack) Denies family history of Ovarian cancer Prostate cancer Myocardial infarction Breast cancer Colorectal cancer Social History Smoking Status: Never smoker Second Hand Exposure: No; Do You Dip or Chew Tobacco: No; Hx Alcohol Use: No Hx Substance Use: No Preferred Language: Danish Communication Ability: Effective Visual Impairment: No Limitations Hearing Ability: Normal Budget Accountant Required: No Beliefs That Will Affect Care: None marital status: / Current Living Situation: Alone Current Living Situation Comment: Lives at home alone current occupational status: retired 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 Feels Safe at Home: Yes Childhood Exposure to Second-Hand Smoke: No Diet: regular Dental Care, Regularly: Yes Physical Activity Frequency: Does not Exercise Seatbelt Use: always Sunscreen Use: No Assistive Devices: Oxygen - Continuous and Wheelchair Allergies Allergies Allergy/AdvReac Type Severity Reaction Status Date / Time aspirin Allergy Severe HIVES; Verified 12/02/23 14:04 DIFFICULTY BREATHING colchicine Allergy Severe Difficulty Verified 12/02/23 14:04 Breathing Iodinated Contrast Media Allergy Intermediate Rash Verified 12/02/23 14:04 aspartame Allergy Unknown Unknown Verified 12/02/23 14:04 Benzodiazepines Allergy Unknown Unknown Verified 12/02/23 14:04 diltiazem Allergy Unknown UNKNOWN Verified 12/02/23 14:04 REACTION doxycycline Allergy Unknown Unknown Verified 12/02/23 14:04 melon Allergy Unknown Unknown Verified 12/02/23 14:04 nifedipine Allergy Unknown UNKNOWN Verified 12/02/23 14:04 REACTION simvastatin Allergy Unknown UNKNOWN Verified 12/02/23 14:04 REACTION PER PT sucralose Allergy Unknown Unknown Verified 12/02/23 14:04 vancomycin Allergy Unknown UNKNOWN Verified 12/02/23 14:04 REACTION Home Meds Home Medications Medication Instructions Recorded Confirmed acetaminophen 500 mg tablet 1,000 mg PO Q8H PRN Pain 01/27/23 01/02/24 (Tylenol Extra Strength) triamcinolone acetonide 0.1 % 1 applic EXT BID PRN FLARE UPS 04/17/23 01/02/24 topical cream Previous Rx's Medication Instructions Recorded Spacer for Inhaler #1 ea 09/04/22 blood sugar diagnostic (OneTouch #100 ea 12/17/22 Verio test strips) pen needle, diabetic 32 gauge x #50 ea 12/17/22 1/" (BD Ultra-Fine Micro Pen Needle) albuterol sulfate 90 mcg/actuation 2 puff inhalation Q4H PRN 03/14/23 aerosol inhaler cough/wheeze/shortness of breath #18 grams albuterol sulfate 2.5 mg/0.5 mL 2.5 mg (0.5 mL) inhalation Q4H PRN 03/28/23 solution for nebulization shortness of breath or wheezing or cough #1 box levothyroxine 150 mcg tablet 150 mcg PO DAILYBB #90 tabs 04/06/23 spironolactone 25 mg tablet 25 mg PO DAILY #90 tabs 05/04/23 metoprolol succinate 200 mg 200 mg PO DAILY #90 tabs 07/13/23 tablet,extended release 24 hr insulin detemir U-100 100 unit/mL 35 unit (0.35 mL) subcut QAM #15 mL 09/02/23 (3 mL) subcutaneous pen losartan 50 mg tablet 50 mg PO QAM #90 tabs 09/03/23 potassium chloride 20 mEq oral 20 meq PO DAILY 30 days #30 ea 09/06/23 packet bumetanide 0.5 mg tablet 0.5 mg PO DAILY #90 tabs 10/28/23 bumetanide 1 mg tablet 1 mg PO DAILY #120 tabs 10/28/23 Results & Data (ED) Vital Signs Vital Signs - 24 hr 01/02/24 13:32 01/02/24 13:44 01/02/24 13:44 Temperature 36.6 C Temperature Source Oral Pulse Rate 104 H 99 H Pulse Rate [Apical] Pulse Rhythm Respiratory Rate 22 Respiratory Effort / Characteristics Non-Labored Spontaneous Non-Labored Spontaneous Respiratory Depth Normal Normal Respiratory Pattern Regular Blood Pressure 167/110 H Blood Pressure [Right Arm] Blood Pressure Mean 129 Blood Pressure Mean [Right Arm] Pulse Oximetry 95 Oxygen Delivery Method Nasal Cannula Nasal Cannula Oxygen Flow Rate 2 2 Sepsis Recent Fever Within 48 Hours No Sepsis New/Unexplained Change in Mental Status N/A Sepsis Action Taken by Nursing No Action Required 01/02/24 13:44 01/02/24 13:44 01/02/24 13:55 Temperature Temperature Source Pulse Rate Pulse Rate [Apical] 92 H Pulse Rhythm Regular Respiratory Rate 20 Respiratory Effort / Characteristics Respiratory Depth Normal Respiratory Pattern Blood Pressure Blood Pressure [Right Arm] Blood Pressure Mean Blood Pressure Mean [Right Arm] Pulse Oximetry 96 95 96 Oxygen Delivery Method Nasal Cannula Nasal Cannula Nasal Cannula Oxygen Flow Rate 2 2 2 Sepsis Recent Fever Within 48 Hours Sepsis New/Unexplained Change in Mental Status Sepsis Action Taken by Nursing 01/02/24 15:22 01/02/24 16:50 Temperature Temperature Source Pulse Rate Pulse Rate [Apical] 90 92 H Pulse Rhythm Respiratory Rate 20 18 Respiratory Effort / Characteristics Non-Labored Non-Labored Spontaneous Respiratory Depth Normal Normal Respiratory Pattern Blood Pressure Blood Pressure [Right Arm] 218/91 H 197/98 H Blood Pressure Mean Blood Pressure Mean [Right Arm] 133 131 Pulse Oximetry 95 97 Oxygen Delivery Method Nasal Cannula Nasal Cannula Oxygen Flow Rate 2 2 Sepsis Recent Fever Within 48 Hours Sepsis New/Unexplained Change in Mental Status Sepsis Action Taken by Nursing Laboratory Data Attestation: I reviewed the patient's lab results. 01/02/24 14:12 01/02/24 14:12 Lab Results 01/02/24 01/02/24 01/02/24 Range/Units 14:12 14:22 16:28 WBC 6.59 (4.8-10.8) K/ul RBC 3.34 L (4.20-5.40) M/uL Hgb 9.5 L (12.0-16.0) g/dl Hct 30.1 L (37.0-47.0) % MCV 90.1 (80.0-100.0) fL MCH 28.4 (25.0-34.0) pg MCHC 31.6 L (32.0-36.0) g/dL RDW Std Deviation 42.1 (36.4-46.3) fL RDW Coeff of Smith 12.8 (11.5-14.5) % Plt Count 236 (130-400) K/uL MPV 10.4 (9.4-12.4) fL Immature Gran % (Auto) 0.5 % Neut % (Auto) 78.3 % Lymph % (Auto) 12.1 % Kaufman % (Auto) 7.4 % Eos % (Auto) 1.4 % Baso % (Auto) 0.3 % Neut # (Auto) 5.16 (1.40-6.50) K/uL Lymph # (Auto) 0.80 L (1.20-3.40) K/uL Kaufman # (Auto) 0.49 (0.11-0.59) K/uL Eos # (Auto) 0.09 (0.00-0.50) K/uL Baso # (Auto) 0.02 (0.00-0.20) K/uL Immature Gran # (Auto) 0.03 (0.01-0.20) K/uL PT 10.2 (9.0-12.0) Seconds INR 0.9 (0.9-1.1) VBG pH 7.40 (7.36-7.41) VBG pCO2 54 H (38-50) mmHg VBG pO2 60 mmHg VBG HCO3 33 mmol/L VBG O2 Saturation 94.0 % VBG Base Excess 7.0 mEq/L Sodium 135 L (136-145) mmol/L Potassium 4.4 (3.5-5.1) mmol/L Chloride 98 (98-107) mmol/L Carbon Dioxide 33 H (21-32) mmol/L Anion Gap 4 (3-11) BUN 20 (6-23) mg/dl Creatinine 0.82 (0.6-1.2) mg/dl Est Cr Clr Drug Dosing 69.8 ml/min Est GFR ( Amer) 80.6 ml/min Est GFR (Non-Af Amer) 69.5 ml/min BUN/Creatinine Ratio 24.4 H (10-20) Glucose 335 H* (70-99(Fasting)) mg/dl Calcium 8.8 (8.6-10.3) mg/dl Phosphorus 3.1 (2.5-4.9) mg/dl Magnesium 1.9 (1.7-2.4) mg/dl Total Bilirubin 0.5 (0.2-1.0) mg/dl AST 13 (13-39) U/L ALT 6 L (7-52) U/L Alkaline Phosphatase 80 (34-104) U/L Troponin I High Sens 20.8 H 18.8 H (0-14) pg/ml B-Natriuretic Peptide 139 H (0-100) pg/ml Total Protein 7.2 (6.0-8.3) gm/dl Albumin 3.6 (3.4-5.0) gm/dl Globulin 3.6 (2.5-4.0) gm/dl Albumin/Globulin Ratio 1.0 (0.9-2) Lipase 14 (11-82) U/L Urine Color Yellow Urine Appearance Clear (Clear) Urine pH 7.5 (4.5-7.5) Ur Specific Industry 1.012 (1.000-1.030) Urine Protein 2+ H (Negative) Urine Glucose (UA) 3+ H (Negative) Urine Ketones Negative (Negative) Urine Blood 1+ H (Negative) Urine Nitrite Negative (Negative) Urine Bilirubin Negative (Negative) Urine Urobilinogen Negative (Negative) Ur Leukocyte Esterase Negative (Negative) Urine WBC (Auto) 0 (0-5) /hpf Urine RBC (Auto) 0-4 (0-4) /hpf U Hyaline Cast (Auto) 0 (0-5) /lpf U Epithel Cells (Auto) 10-20 H (0-5) /lpf Urine Bacteria (Auto) Negative (Negative) Adenovirus (PCR) Not Detected (NotDetected) B. pertussis DNA (PCR) Not Detected (NotDetected) B.parapertussis DNA PCR Not Detected (NotDetected) C. pneumoniae DNA (PCR) Not Detected (NotDetected) Coronavirus OC43 (PCR) Not Detected (NotDetected) Coronavirus HKU1 (PCR) Not Detected (NotDetected) Coronavirus 229E (PCR) Not Detected (NotDetected) SARS-CoV-2 (PCR) Not Detected (NotDetected) Coronavirus NL63 (PCR) Not Detected (NotDetected) Human Metapneumovir PCR Not Detected (NotDetected) Influenza Type A (PCR) Not Detected (NotDetected) Influenza Type B (PCR) Not Detected (NotDetected) M. pneumoniae (PCR) Not Detected (NotDetected) Parainfluenza 1 (PCR) Not Detected (NotDetected) Parainfluenza 2 (PCR) Not Detected (NotDetected) Parainfluenza 3 (PCR) Not Detected (NotDetected) Parainfluenza 4 (PCR) Not Detected (NotDetected) RSV (PCR) Not Detected (NotDetected) Entero/Rhino (PCR) Not Detected (NotDetected) Administered Medications Albuterol (Albut/Ipratrop 3mg/0.5mg Neb 3 Ml Vial) 3 ml INH Q6R SABINE Stop: 02/01/24 21:24 Last Admin: 01/03/24 00:09 Dose: Not Given Documented By: Admin: 01/02/24 23:30 Dose: 3 ml Documented By: PEDRO Enoxaparin Sodium (Enoxaparin Inj 40 Mg/0.4 Ml Syr) 40 mg SQ HS SABINE Stop: 02/01/24 21:24 Last Admin: 01/02/24 23:07 Dose: Not Given Documented By: DMBety Bumetanide 2 mg/ Syringe 8 mls @ 4 mls/min IV BID@0900,1700 SABINE Stop: 02/01/24 21:24 Last Admin: 01/02/24 23:07 Dose: 4 mls/min Documented By: JACOB Insulin Aspart (Insulin Aspart Per Unit Charge) 0 units SC ACHS SABINE Stop: 02/01/24 21:24 Last Admin: 01/02/24 23:27 Dose: 11 units Documented By: DMBety Co-signed By: SAVANA Discontinued Medications Albuterol (Albut/Ipratrop 3mg/0.5mg Neb 3 Ml Vial) 3 ml NEB NOW STA; Protocol Stop: 01/02/24 15:11 Last Admin: 01/02/24 15:21 Dose: 3 ml Documented By: ENOCH Guaifenesin (Guaifenesin 600 Mg Tabcr) 1,200 mg PO NOW STA Stop: 01/02/24 15:11 Last Admin: 01/02/24 15:20 Dose: Not Given Documented By: ENOCH Bumetanide 1 mg/ Syringe 4 mls @ 4 mls/min IV ONE ONE Stop: 01/02/24 15:49 Last Admin: 01/02/24 16:51 Dose: 4 mls/min Documented By: ENOCH Insulin Glargine (Lantus Per Unit Charge) 15 units SQ NOW ONE Stop: 01/02/24 21:47 Last Admin: 01/02/24 23:27 Dose: 15 units Documented By: DMBtey Co-signed By: SAVANA Insulin Human Regular (Novolin-R Insulin Per Unit Charge) 5 units IV NOW STA Stop: 01/02/24 15:59 Last Admin: 01/02/24 16:52 Dose: 5 units Documented By: ENOCH Co-signed By: DAMARIS Methylprednisolone (Methylprednisolone 125 Mg/2 Ml Vial) 125 mg IV NOW STA Stop: 01/02/24 15:11 Last Admin: 01/02/24 15:21 Dose: 125 mg Documented By: ENOCH Imaging Data Radiologist's Impression: Chest X-Ray 01/02/24 13:41 XR chest 1V portable HISTORY: Shortness of breath. COMPARISON: Chest 06/05/2023. FINDINGS: No pneumothorax. The heart remains enlarged. Mild interstitial/vascular thickening suggestive of congestive change. No acute fractures. Mild elevation of the left hemidiaphragm. Small left pleural effusions/densities have improved. IMPRESSION: 1. Cardiomegaly and mild congestive change. 2. Small left pleural effusion/densities have improved. ACT 112: Negative or not required by law. Electronically signed by: Edgar Meek M.D. 01/02/2024 3:09 PM Discharge Plan Visit Data Chief Complaint: Shortness of Breath/Dyspnea Stated Complaint: SOB ED Provider: Darshan Yoder Discharge Problem: Acute and chronic respiratory failure, COPD (chronic obstructive pulmonary disease), CHF (congestive heart failure) Patient Disposition: Admitted As Inpatient Discharge Instructions Interventions: ED Discharge Assessment Last Done: 01/02/24 21:25 Discharge Problem: Acute and chronic respiratory failure Qualifiers: Respiratory failure complication: hypoxia and hypercapnia Qualified Code(s): J 96.21 - Acute and chronic respiratory failure with hypoxia; J96.22 - Acute and chronic respiratory failure with hypercapnia COPD (chronic obstructive pulmonary disease) Qualifiers: COPD type: COPD with acute exacerbation Qualified Code(s): J44.1 - Chronic obstructive pulmonary disease with (acute) exacerbation CHF (congestive heart failure) Qualifiers: Heart failure type: unspecified Heart failure chronicity: acute on chronic Q ualified Code(s): I50.9 - Heart failure, unspecified
[2024-01-02 14:43] LABS: Basophils # (auto) 0.02 K/uL (0.00-0.20); Basophils % (auto) 0.3 %; Eosinophils # (auto) 0.09 K/uL (0.00-0.50); Eosinophils % (auto) 1.4 %; Hematocrit (blood only) 30.1 % (37.0-47.0); Hemoglobin 9.5 g/dl (12.0-16.0); Immature Granulocytes # (auto) 0.03 K/uL (0.01-0.20); Immature Granulocytes % (auto) 0.5 %; Lymphocytes % (auto) 12.1 %; Mean Corpuscular Hemoglobin 28.4 pg (25.0-34.0); Mean Corpuscular Hgb Conc 31.6 g/dL (32.0-36.0); Mean Corpuscular Volume 90.1 fL (80.0-100.0); Mean Platelet Volume 10.4 fL (9.4-12.4); Monocytes # (auto) 0.49 K/uL (0.11-0.59); Monocytes % (auto) 7.4 %; Neutrophils # (auto) 5.16 K/uL (1.40-6.50); Neutrophils % (auto) 78.3 %; Platelet Count 236 K/uL (130-400); RDW Coefficient of Variation 12.8 % (11.5-14.5); RDW Standard Deviation 42.1 fL (36.4-46.3); Red Blood Count 3.34 M/uL (4.20-5.40); White Blood Count 6.59 K/ul (4.8-10.8)
[2024-01-02 15:09] LABS: Appearance Urine Clear (Clear); Bacteria Urine Automated Negative (Negative); Bilirubin Urine Negative (Negative); Blood Urine 1+ (Negative); Cast Urine Automated 0 /lpf (0-5); Color Urine Yellow; Glucose Urine UA 3+ (Negative); INR 0.9 (0.9-1.1); Ketones Urine Negative (Negative); Leukocyte Esterase Urine Negative (Negative); Nitrite Urine Negative (Negative); Prothrombin Time 10.2 Seconds (9.0-12.0); RBC Urine Automated 0-4 /hpf (0-4); Specific Gravity Urine 1.012 (1.000-1.030); Urobilinogen Urine Negative (Negative); WBC Urine Automated 0 /hpf (0-5); pH Urine 7.5 (4.5-7.5)
[2024-01-02 15:10] LABS: Protein Urine 2+ (Negative)
--- NOTE | 2024-01-02 15:11 | XRay Report ---
XR chest 1V portable HISTORY: Shortness of breath. COMPARISON: Chest 06/05/2023. FINDINGS: No pneumothorax. The heart remains enlarged. Mild interstitial/vascular thickening suggesti ve of congestive change. No acute fractures. Mild elevation of the left hemidiaphragm. Small left ple ural effusions/densities have improved. IMPRESSION: 1. Cardiomegaly and mild congestive change. 2. Small left pleural effusion/densities have improved. ACT 112: Negative or not required by law. Electronically signed by: Edgar Meek M.D. 01/02/2024 3:09 PM
[2024-01-02 15:14] LABS: Albumin Level 3.6 gm/dl (3.4-5.0); BUN Creatinine Ratio 24.4 (10-20); Bilirubin,Total 0.5 mg/dl (0.2-1.0); Calcium 8.8 mg/dl (8.6-10.3); Creatinine Clr Calc Pharmacy 69.8 ml/min; Est GFR (African American) 80.6 ml/min; Est GFR (Non-African American) 69.5 ml/min; Globulin 3.6 gm/dl (2.5-4.0); Phosphorus 3.1 mg/dl (2.5-4.9); Potassium 4.4 mmol/L (3.5-5.1); Total Protein 7.2 gm/dl (6.0-8.3); Troponin I High Sensitivity 20.8 pg/ml (0-14)
[2024-01-02] MEDS: guaiFENesin 600 MG TABCR PO STA (15:20)
[2024-01-02] MEDS: methylPREDNISolone 125 MG/2 ML VIAL IV STA (15:21)
[2024-01-02] MEDS: ALBUT/IPRATROP 3MG/0.5MG NEB 3 ML VIAL NEB STA (15:21)
[2024-01-02 15:22] LABS: Adenovirus PCR Not Detected (NotDetected); Bordetella parapertussis PCR Not Detected (NotDetected); Bordetella pertussis PCR Not Detected (NotDetected); Chlamydia pneumoniae PCR Not Detected (NotDetected); Coronavirus 229E PCR Not Detected (NotDetected); Coronavirus CoV-2 (COVID19)PCR Not Detected (NotDetected); Coronavirus HKU1 PCR Not Detected (NotDetected); Coronavirus NL63 PCR Not Detected (NotDetected); Coronavirus OC43PCR Not Detected (NotDetected); Human Metapneumovirus PCR Not Detected (NotDetected); Influenza A PCR Not Detected (NotDetected); Influenza B PCR Not Detected (NotDetected); Mycoplasma pneumoniae PCR Not Detected (NotDetected); Parainfluenza Virus 1 PCR Not Detected (NotDetected); Parainfluenza Virus 2 PCR Not Detected (NotDetected); Parainfluenza Virus 3 PCR Not Detected (NotDetected); Parainfluenza Virus 4 PCR Not Detected (NotDetected); Respiratory Syncytial VirusPCR Not Detected (NotDetected); Rhinovirus/Enterovirus PCR Not Detected (NotDetected)
--- NOTE | 2024-01-02 15:55 | History & Physical Report ---
Date of Service January 02, 2024 Assessment & Plan (1) Acute on chronic heart failure with preserved ejection fraction (HFpEF): Plan: Worsening PANDEY and chest heaviness the evening of 12/31 Ongoing dizziness and leg swelling x 3 weeks Patient reports she has not taken her Bumex or spironolactone in several weeks CXR revealed cardiomegaly with mild congestive change Last echo on 11/04/2023 revealed LVEF at 50 to 55% with severe concentric left ventricular hypertrophy BioFire negative BNP mildly elevated at 139 VB.40/54/60/33 Venous Doppler of the legs ordered, pending Bumex 2 mg IV [id number] Restart spironolactone and potassium supplementation Daily weights Strict I&O monitoring A.m. CBC, BMP (2) COPD (chronic obstructive pulmonary disease): Plan: On 2L NC at baseline Titrate supplemental oxygen as needed to maintain SpO2 89-92%; COPD DuoNeb 3 mL q6r for wheezing Incentive spirometry, flutter valve Continuous pulse oximetry (3) Hypertension: Plan: Patient reports that she only takes 1 blood pressure medication, and is unsure if it is losartan or metoprolol Resume metoprolol and losartan as currently prescribed (4) Diabetes mellitus with albuminuria: Plan: Last A1c at 10.3% on 12/02/2023 Glucose 335 on admission; regular insulin 5 units given in the ED Pharmacy glycemic consult given concomitant steroid use Lantus twice daily SSI; with target BSG range 110-140mg/dL, CF 45, carb ratio 15 T2DM diet BSG ACHS Adjust regimen as needed (5) Dizziness: Plan: Patient reports new onset, worsening dizziness over the past 3 weeks Was told that she has cerumen in her ear ears at outpatient appointment (6) Elevated troponin: Plan: Troponin 20.8--> 18.8 on arrival EKG revealed sinus tachycardia at 103 bpm; QTc 432 Patient does endorses chest pressure, but denies chest pain Continuous telemetry monitoring Plan Disposition: Obs -[facility] telemetry Full code AHA, T2DM diet VTE PPx: Lovenox 40 mg SQ q24h History of Present Illness Chief Complaint: SOB/dyspnea, dizziness Primary Care Provider: Luann France MD Carli is a 78-year-old female with PMH of HFrEF, HTN, cardiomyopathy, COPD, hypothyroidism, dyslipidemia, diabetes, asthma, and arthritis. She presented via EMS for worsening dizziness x 3 weeks, as well as PANDEY the evening of 12/31. Patient is on 2L NC at baseline. She lives alone, but has an RN, every 1 to 2 weeks. She reports that her breathing got bad really bad last night and that she needed to use a nebulizer, which she only uses once or twice per year. She noted that she felt better after breathing treatment, but was still feeling presyncopal. Wheelchair-bound at baseline. She notes that she has been having worsening dizziness while doing lips and moving around in/out of her chair. No sick contacts. No CPAP at night. SOB is mainly with exertion; not different when lying flat; patient does sleep in a special chair/recliner with a head elevated. Patient came into the hospital as she could not get additional nebulizer medicine outpatient today on Wednesday. In regard to medicine, patient reports she only takes levothyroxine, insulin, and one of her 2 BP medications (she is unsure if this is metoprolol or losartan). She has not been taking her Bumex or spironolactone for several weeks. She does note significant leg swelling. She is also having some right hip pain; s/p fracture. In regard to dizziness, she does not have a history of vertigo or balance issues, but notes that she had some earwax noted during a outpatient PCP appointment recently. 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 No tobacco, smoking, or alcohol use. Patient is hypertensive at 218/91, and SpO2 is at 95% on 2 LNC at time of admission. ED Course: Methylprednisolone 125 mg IV DuoNeb 3 mL ROS: Patient endorses chest pressure (intermittent; feels like she is "squeezed by a bear"), pleuritic CP, dizziness with movements, PANDEY, recent changes in hearing, intermittent pain in ears when bending over to greens picker fallen objects, and swelling in legs. Patient denies fever, JORGENSEN, chest pain, chest palpitations, cough, abdominal pain, N/V/D, urinary s/s, burning with urination, blood in urine/stool, or redness/pain in legs. Allergies Allergy/AdvReac Type Severity Reaction Status Date / Time aspirin Allergy Severe HIVES; Verified 12/02/23 14:04 DIFFICULTY BREATHING colchicine Allergy Severe Difficulty Verified 12/02/23 14:04 Breathing Iodinated Contrast Media Allergy Intermediate Rash Verified 12/02/23 14:04 aspartame Allergy Unknown Unknown Verified 12/02/23 14:04 Benzodiazepines Allergy Unknown Unknown Verified 12/02/23 14:04 diltiazem Allergy Unknown UNKNOWN Verified 12/02/23 14:04 REACTION doxycycline Allergy Unknown Unknown Verified 12/02/23 14:04 melon Allergy Unknown Unknown Verified 12/02/23 14:04 nifedipine Allergy Unknown UNKNOWN Verified 12/02/23 14:04 REACTION simvastatin Allergy Unknown UNKNOWN Verified 12/02/23 14:04 REACTION PER PT sucralose Allergy Unknown Unknown Verified 12/02/23 14:04 vancomycin Allergy Unknown UNKNOWN Verified 12/02/23 14:04 REACTION Home Medications Medication Instructions Recorded Confirmed Type Spacer for Inhaler #1 ea 09/04/22 12/02/23 Rx blood sugar diagnostic (OneTouch #100 ea 12/17/22 12/02/23 Rx Verio test strips) pen needle, diabetic 32 gauge x #50 ea 12/17/22 12/02/23 Rx 1/4" (BD Ultra-Fine Micro Pen Needle) acetaminophen 500 mg tablet 1,000 mg PO Q8H PRN Pain 01/27/23 01/02/24 History (Tylenol Extra Strength) albuterol sulfate 90 mcg/actuation 2 puff inhalation Q4H PRN 03/14/23 01/02/24 Rx aerosol inhaler cough/wheeze/shortness of breath #18 grams albuterol sulfate 2.5 mg/0.5 mL 2.5 mg (0.5 mL) inhalation Q4H PRN 03/28/23 01/02/24 Rx solution for nebulization shortness of breath or wheezing or cough #1 box levothyroxine 150 mcg tablet 150 mcg PO DAILYBB #90 tabs 04/06/23 01/02/24 Rx triamcinolone acetonide 0.1 % 1 applic EXT BID PRN FLARE UPS 04/17/23 01/02/24 History topical cream spironolactone 25 mg tablet 25 mg PO DAILY #90 tabs 05/04/23 01/02/24 Rx metoprolol succinate 200 mg 200 mg PO DAILY #90 tabs 07/13/23 01/02/24 Rx tablet,extended release 24 hr insulin detemir U-100 100 unit/mL 35 unit (0.35 mL) subcut QAM #15 mL 09/02/23 01/02/24 Rx (3 mL) subcutaneous pen losartan 50 mg tablet 50 mg PO QAM #90 tabs 09/03/23 01/02/24 Rx potassium chloride 20 mEq oral 20 meq PO DAILY 30 days #30 ea 09/06/23 01/02/24 Rx packet bumetanide 0.5 mg tablet 0.5 mg PO DAILY #90 tabs 10/28/23 01/02/24 Rx bumetanide 1 mg tablet 1 mg PO DAILY #120 tabs 10/28/23 01/02/24 Rx Past Med/Surg History Medical History Abdominal distension Epistaxis Acute on chronic systolic heart failure Nausea & vomiting Near syncope Hydronephrosis, bilateral Acute UTI Hypertension Hypothyroidism COPD (chronic obstructive pulmonary disease) Acute on chronic heart failure with preserved ejection fraction (HFpEF) Renal cyst, left Obstructive pattern present on pulmonary function testing Pleuritic chest pain CHF exacerbation (HFpEF) heart failure with preserved ejection fraction Acute and chronic respiratory failure with hypoxia Lymphedema Chest pain Type 2 diabetes mellitus with peripheral neuropathy Chronic edema Hypomagnesemia Hypokalemia Chronic respiratory failure with hypoxia, on home O2 therapy Elevated serum globulin level Multiple drug allergies Ambulatory dysfunction Wheelchair bound Right knee DJD Lower extremity edema Hx of thyroid cancer History of seizures as a child Financial difficulties Diastolic heart failure Hypothyroidism, postablative Acute diastolic (congestive) heart failure HTN (hypertension) Pleurisy without effusion History of ectopic Hx of papillary thyroid carcinoma Gait abnormality Dyslipidemia Vitamin D deficiency Hx of pleurisy HTN (hypertension) Surgical History History of D&C Hx of thyroidectomy Hx of brain surgery Hx of section Family History Father Stroke Mother Dementia Diabetes Sister Macular degeneration Brother Macular degeneration Other TIA (transient ischemic attack) Denies family history of Ovarian cancer Prostate cancer Myocardial infarction Breast cancer Colorectal cancer Social History Smoking Status: Never smoker Second Hand Exposure: No; Do You Dip or Chew Tobacco: No; Hx Alcohol Use: No Hx Substance Use: No Preferred Language: Serbian Communication Ability: Effective Visual Impairment: No Limitations Hearing Ability: Normal Tram Operator Required: No Beliefs That Will Affect Care: None marital status: / Current Living Situation: Alone Current Living Situation Comment: Lives at home alone current occupational status: retired 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 Feels Safe at Home: Yes Childhood Exposure to Second-Hand Smoke: No Diet: regular Dental Care, Regularly: Yes Physical Activity Frequency: Does not Exercise Seatbelt Use: always Sunscreen Use: No Assistive Devices: Oxygen - Continuous and Wheelchair Review of Systems Review of Systems: See HPI above Physical Exam Physical Exam: General: no acute distress; anxious; non-toxic appearing; well-nourished; cooperative; 95% on 2L NC HEENT: normocephalic, atraumatic; no scleral icterus; PERRLA w/ EOMs intact; moist mucus membrane; vision and hearing grossly intact Ears: Cerumen noted in the right ear, difficult visualization in the left ear Neck: supple; no JVD; no lymphadenopathy; trachea midline Skin: warm, dry without signs of tenting; no cyanosis; no rashes, bruising, lesions, or erythema noted CV: chest wall NTP; RR, mildly tachycardic just above 100 bpm; S1/S2 normal; 2/6 systolic ejection murmur auscultated at the second ICS MCL; pulses intact and symmetric at radial, DP, and PT Lungs: no acute respiratory distress; symmetrical chest wall expansion; clear breath sounds across all lung brooke w/o adventitious sounds; no wheezing ABD: Soft, NTP; BS present; no rebound/guarding MSK: no tics or fasciculations; significant nonpitting edema, and erythema in the legs bilaterally Neuro: A&Ox3; normal mood and affect; fluent speech; no focal deficits; sensation grossly intact in the LEs b/l Results & Data Results & Data Vital Signs (Past 12 Hours) Vital Signs Temp Pulse Pulse Resp BP BP Pulse Ox 01/02/24 15:22 90 20 218/91 H 95 01/02/24 13:55 96 01/02/24 13:44 95 01/02/24 13:44 92 H 20 96 01/02/24 13:44 01/02/24 13:44 36.6 C 99 H 22 167/110 H 95 01/02/24 13:32 104 H O2 Del Method O2 Flow Rate 01/02/24 15:22 Nasal Cannula 2 01/02/24 13:55 Nasal Cannula 2 01/02/24 13:44 Nasal Cannula 2 01/02/24 13:44 Nasal Cannula 2 01/02/24 13:44 Nasal Cannula 2 01/02/24 13:44 Nasal Cannula 2 01/02/24 13:32 Laboratory Results Abnormal lab results 01/02/24 Range/Units 14:12 RBC 3.34 L (4.20-5.40) M/uL Hgb 9.5 L (12.0-16.0) g/dl Hct 30.1 L (37.0-47.0) % MCHC 31.6 L (32.0-36.0) g/dL Lymph # (Auto) 0.80 L (1.20-3.40) K/uL VBG pCO2 54 H (38-50) mmHg Sodium 135 L (136-145) mmol/L Carbon Dioxide 33 H (21-32) mmol/L BUN/Creatinine Ratio 24.4 H (10-20) Glucose 335 H* (70-99(Fasting)) mg/dl ALT 6 L (7-52) U/L Troponin I High Sens 20.8 H (0-14) pg/ml B-Natriuretic Peptide 139 H (0-100) pg/ml Urine Protein 2+ H (Negative) Urine Glucose (UA) 3+ H (Negative) Urine Blood 1+ H (Negative) U Epithel Cells (Auto) 10-20 H (0-5) /lpf Diagnostic Findings Chest X-Ray 01/02/24 13:41 XR chest 1V portable HISTORY: Shortness of breath. COMPARISON: Chest 06/05/2023. FINDINGS: No pneumothorax. The heart remains enlarged. Mild interstitial/vascular thickening suggestive of congestive change. No acute fractures. Mild elevation of the left hemidiaphragm. Small left pleural effusions/densities have improved. IMPRESSION: 1. Cardiomegaly and mild congestive change. 2. Small left pleural effusion/densities have improved. ACT 112: Negative or not required by law. Electronically signed by: Edgar Meek M.D. 01/02/2024 3:09 PM Code Status & VTE Plan Code Status Full code VTE Prophylaxis Plan VTE Prophylaxis will be ordered: Yes Supervising Physician Co-Signing Physician Notes Carli is a 78-year-old female with past medical history of hypercapnic hypoxic respiratory failure, hypertension, heart failure with reduced ejection fraction, pericardial effusion, pulmonary hypertension, COPD, hypothyroidism, hyperlipidemia, nephrotic proteinuria, asthma who was seen by her primary care provider today regarding an asthma attack with increasing shortness of breath and wheezing although no increase in her oxygen level from the baseline 2 L. Nebulizers did improve her breathing last night but she has run out of albuterol, and continued to have progressively worsening shortness of breath. Stopped taking her anoro due to side effects however has been taking all other medications. On ER assessment she is with BSG 335, troponin of 20.8, BNP 139, and she is at her baseline renal function. He is slightly hypercarbic at 33 and VBG 7.4/54/60/33 with compensated respiratory failure. Chest x-ray shows mild congestive changes cardiomegaly, compared to prior x-ray effusions have improved. Her bio fire is negative. Has had +leg swelling and weight gain in addition to wheezing. Last EF 35-40% had normalized to 50-55%. She is recommended for admission for acute asthma exacerbation +/- mild fluid congestion with demand ischemia and hyperglycemia. She is on insulin 35 units at bedtime at home for type II DM. PG Care Time/CCT Total # of Minutes Spent Total Time Spent with Patient: Total time spent is greater than 50% in coordination of care (as documented) at patient's floor/unit and/or counseling patient: Coding [place] [address] INT INP/OBS CARE 75MIN Patient Type Established History Comprehensive Exam Comprehensive Medical Decision Making High Complexity Diagnoses Acute on chronic heart failure with preserved ejection fraction (HFpEF) I50.33 COPD (chronic obstructive pulmonary disease) J44.9 Hypertension I10 Hypertension type: unspecified Diabetes mellitus with albuminuria E11.29; R80.9 Dizziness R42 Elevated troponin R77.8 (3) Hypertension Hypertension type: unspecified Qualified Code(s): I10 - Essential (primary) hypertension
[2024-01-02 16:44] LABS: Magnesium 1.9 mg/dl (1.7-2.4)
[2024-01-02] MEDS: BUMETANIDE 1 MG in SYRINGE 0 ML IV ONE (16:51)
[2024-01-02] MEDS: NovoLIN-R INSULIN PER UNIT CHARGE IV STA (16:52)
[2024-01-02] MEDS ORDERED: CARBOHYDRATES FOR HYPOGLYCEMIA PO PRN (21:25)
[2024-01-02] MEDS ORDERED: GLUCAGON FOR INJ 1 MG VIAL SQ PRN (21:25)
[2024-01-02] MEDS ORDERED: ACETAMINOPHEN 325 MG TAB PO PRN (21:25)
[2024-01-02] MEDS ORDERED: DEXTROSE 50% 50 ML SYRINGE IV PRN (21:25)
[2024-01-02] MEDS ORDERED: GLUCOSE 10 TAB/TUBE PO PRN (21:25)
[2024-01-02] MEDS ORDERED: GLUCOSE 40% GEL 15 GM TUBE PO PRN (21:25)
[2024-01-02] MEDS ORDERED: PHARMACY GLYCEMIC MGMT CONSULT PRN (21:25)
[2024-01-02] MEDS: ENOXAPARIN INJ 40 MG/0.4 ML SYR SQ SCH (23:07)
[2024-01-02] MEDS: BUMETANIDE 2 MG in SYRINGE 0 ML IV SCH (23:07)
[2024-01-02] MEDS: LANTUS PER UNIT CHARGE SQ ONE (23:27)
[2024-01-02] MEDS: INSULIN ASPART PER UNIT CHARGE SC SCH (23:27)
[2024-01-02] MEDS: ALBUT/IPRATROP 3MG/0.5MG NEB 3 ML VIAL INH SCH (23:30)
--- NOTE | 2024-01-03 02:04 | Ultrasound Report ---
Exam(s): US VENOUS BILATERAL LOWER EXTREMITIES EXAM: US Duplex Bilateral Lower Extremities Veins CLINICAL HISTORY: Reason for exam: DVT r/o. TECHNIQUE: Real-time duplex ultrasound scan of the bilateral lower extremity veins integrating B-mode two-dimensional vascular structure, Doppler spectral analysis, color flow Doppler imaging and compression. COMPARISON: 04/17/2023. FINDINGS: Right deep veins: Unremarkable. No DVT in the right common femoral, femoral, proximal deep femoral or popliteal veins. The veins demonstrate normal color flow, are normally compressible, with normal phasic flow and/or augmentation response. Right superficial veins: Unremarkable. No thrombus in the visualized right great saphenous vein. Left deep veins: Unremarkable. No DVT in the left common femoral, femoral, proximal deep femoral or popliteal veins. The veins demonstrate normal color flow, are normally compressible, with normal phasic flow and/or augmentation response. Left superficial veins: Unremarkable. No thrombus in the visualized left great saphenous vein. Soft tissues: No acute findings. No popliteal cyst. IMPRESSION: No ultrasonographic evidence of deep venous thrombosis involving the bilateral lower extremities. Electronically signed by: Antonella Becker MD 01/03/24 02:02 AM
[2024-01-03] MEDS: INSULIN ASPART PER UNIT CHARGE SC ONE (02:19)
[2024-01-03] MEDS: INSULIN HUMAN REGULAR PER UNIT 10 UNITS in SYRINGE 9.9 ML IV ONE (02:24)
[2024-01-03] MEDS: LANTUS PER UNIT CHARGE SC SCH (02:34)
[2024-01-03] MEDS: LEVOTHYROXINE SODIUM 150 MCG TABLET PO SCH (05:54)
[2024-01-03 07:15] LABS: Basophils # (auto) 0.01 K/uL (0.00-0.20); Basophils % (auto) 0.1 %; Hematocrit (blood only) 30.1 % (37.0-47.0); Hemoglobin 9.9 g/dl (12.0-16.0); Immature Granulocytes # (auto) 0.04 K/uL (0.01-0.20); Immature Granulocytes % (auto) 0.6 %; Mean Corpuscular Hemoglobin 28.8 pg (25.0-34.0); Mean Corpuscular Hgb Conc 32.9 g/dL (32.0-36.0); Mean Corpuscular Volume 87.5 fL (80.0-100.0); Monocytes # (auto) 0.31 K/uL (0.11-0.59); Monocytes % (auto) 4.4 %; Neutrophils # (auto) 6.24 K/uL (1.40-6.50); Neutrophils % (auto) 87.9 %; Platelet Count 239 K/uL (130-400); RDW Coefficient of Variation 12.8 % (11.5-14.5); RDW Standard Deviation 40.8 fL (36.4-46.3); Red Blood Count 3.44 M/uL (4.20-5.40)
[2024-01-03 07:38] LABS: BUN Creatinine Ratio 29.2 (10-20); Calcium 8.8 mg/dl (8.6-10.3); Creatinine Clr Calc Pharmacy 59.7 ml/min; Est GFR (African American) 66.6 ml/min; Est GFR (Non-African American) 57.4 ml/min; Magnesium 1.8 mg/dl (1.7-2.4); Potassium 4.1 mmol/L (3.5-5.1)
--- NOTE | 2024-01-03 08:47 | Electrocardiogram Report ---
Test Reason : Blood Pressure : / mmHG Vent. Rate : 103 BPM Atrial Rate : 103 BPM P-R Int : 186 ms QRS Dur : 080 ms QT Int : 330 ms P-R-T Axes : 077 -14 076 degrees QTc Int : 432 ms Sinus tachycardia Low voltage QRS Cannot rule out Anteroseptal infarct (cited on or before 05-JUN-2023) Nonspecific ST abnormality Abnormal ECG When compared with ECG of 05-JUN-2023 04:17, T wave amplitude has increased in Inferior leads Confirmed by Klever Plata ([id number]) on 01/03/2024 8:47:42 AM Referred By: Confirmed By:Laurent Plata
[2024-01-03] MEDS: METOPROLOL SUCC 50MG EXT REL TAB PO SCH (09:51)
[2024-01-03] MEDS: SPIRONOLACTONE 25 MG TAB PO SCH (09:51)
[2024-01-03] MEDS: POTASSIUM CHLORIDE PWD 20 MEQ PACK PO SCH (09:51)
[2024-01-03] MEDS: LOSARTAN POTASSIUM 50 MG TAB PO SCH (09:51)
--- NOTE | 2024-01-03 09:51 | Pharmacy Report ---
Pharmacy Glycemic Short Note 2 - Date of Service January 03, 2024 - Glycemic Short BSG Results (Last 24 hours): 01/02/24 01/02/24 01/02/24 14:12 19:04 22:54 Glucose 335 H* POC Glucose 309 H* 469 H* 01/02/24 01/03/24 01/03/24 22:57 01:46 01:49 Glucose POC Glucose 443 H* 457 H* 408 H* 01/03/24 01/03/24 01/03/24 04:37 06:52 08:09 Glucose 284 H POC Glucose 358 H* 297 H OUTPATIENT ANTIDIABETIC REGIMEN: * Insulin detemir 35 units SC qPM HbA1c: 10.3% (12/02/23) ASSESSMENT: * Carli is a 78 year old female who presented to ED via EMS for worsening dizziness x 3 weeks + dyspnea on exertion on 12/31 * Admitted with exacerbation of HFpEF, blood sugar > 300 mg/dL on presentation * Past inpatient glycemic data suggests ~70 units of insulin necessary while on IV steroids * Patient did receive dose of Solu-medrol 125 mg IV x 1 yesterday, but no ongoing steroids ordered at this time * 35 units of basal insulin given overnight/this AM - will hold off on further basal insulin until this evening PLAN FOR INPATIENT GLYCEMIC CONTROL: * Basal insulin * Lantus tbd * Bolus insulin * NovoLog per scale ACHS or Q6hrs while NPO * Goal Range: Low 110 mg/dL - High 140 mg/dL * Correction Factor: 30 mg/dL/unit * Nutritional / Prandial insulin per carb ratio of 1 unit per 10 grams CHO consumed
[2024-01-03] MEDS: metFORMIN HCL 500 MG TAB PO SCH (12:39)
--- NOTE | 2024-01-03 15:00 | Hospitalist Progress Note ---
Date of Service January 03, 2024 Assessment & Plan (1) Acute on chronic heart failure with preserved ejection fraction (HFpEF): Plan: Continue parenteral Bumex diuresis. Monitor intake and output. Serial chest x- ray. Ejection fraction is normal with associated LVH. Spironolactone has been discontinued. (2) Benign positional vertigo: Plan: Present for several weeks. Scheduled dosing of meclizine added today, January 02. Supportive care (3) COPD (chronic obstructive pulmonary disease): Plan: Associated with chronic respiratory failure. She normally uses 2 L of oxygen continuously at baseline. No exacerbation. (4) Hypertension: Plan: Stable. Continue metoprolol and losartan (5) Diabetes mellitus with albuminuria: Plan: Last A1c at 10.3% on 12/02/2023. ADA diet. She refuses to take metformin. Continue twice daily Lantus therapy. Sliding scale coverage as needed (6) Elevated troponin: Plan: Mild on admission. No chest pain. No acute EKG changes. No evidence of acute coronary syndrome. Plan Hopeful discharge to home soon Admission and Anticipated Discharge Date Admission Date: January 02, 2024 Subjective Alert and oriented. No distress. Metformin was ordered for glucose control but she refused to take it stating she had side effects in the past. She has symptoms of vertigo, probably benign positional vertigo, that has been present for several weeks. Scheduled meclizine dosing has been ordered. Continue parenteral Bumex diuresis. Will repeat portable chest x-ray again tomorrow, January 03. She is only requiring 1 L of oxygen at this time. She uses 2 L continuously at home. Review of Systems 2 Review of Systems: Constitutional-no fever or chills ENT-no blurred vision, no double vision, no epistaxis, no sore throat Respiratory-no cough, no wheezing. Dyspnea on exertion Cardiac-no palpitations, no chest pain, no syncope GI-no nausea, vomiting, diarrhea, melena, hematochezia -no urinary retention, no urinary incontinence, no dysuria, no hematuria Musculoskeletal-no joint pain, no muscle tenderness Skin-no bruising, no rashes, no pruritus Neuro-no isolated weakness, no paresthesia, no weakness Psych-no depression, no anxiety Physical Exam 2 Physical Exam: General-alert and oriented x3, no fever, no chills HEENT-head atraumatic and normocephalic, pupils equal and reactive to light, extraocular muscles intact Neck-no lymphadenopathy or thyromegaly, trachea midline Chest-faint bibasilar inspiratory rales. No wheezing. No dullness Cardiac-regular rate and rhythm, normal S1 and S2 Abdomen-normal bowel sounds, nontender, no hepatosplenomegaly Extremities-no cyanosis, clubbing, or edema Neuro-cranial nerves II through XII intact, motor and sensory function within normal limits, strength symmetrical, no focal deficits Psych-anxious Results & Data Results & Data Vital Signs (Past 12 Hours) Vital Signs Temp Pulse Pulse Pulse Resp BP Pulse Ox 01/03/24 13:07 80 18 94 01/03/24 11:30 36.5 C 77 18 171/75 H 95 01/03/24 09:00 01/03/24 07:22 36.5 C 82 18 178/72 H 99 01/03/24 07:02 79 18 94 01/03/24 06:00 77 01/03/24 03:31 O2 Del Method O2 Flow Rate 01/03/24 13:07 Nasal Cannula 1 01/03/24 11:30 Nasal Cannula 1 01/03/24 09:00 Nasal Cannula 2 01/03/24 07:22 Nebulizer 01/03/24 07:02 Nasal Cannula 1 01/03/24 06:00 01/03/24 03:31 Nasal Cannula 2 Laboratory Results 01/03/24 06:52 01/03/24 06:52 PG Care Time/CCT Total # of Minutes Spent Total Time Spent with Patient: Total time spent is greater than 50% in coordination of care (as documented) at patient's floor/unit and/or counseling patient: Coding Level of Care Code 75376 SUB INP/OBS CARE 3/50MIN Diagnoses Acute on chronic heart failure with preserved ejection fraction (HFpEF) I50.33 Benign positional vertigo H81.10 COPD (chronic obstructive pulmonary disease) J44.9 Hypertension I10 Hypertension type: unspecified Diabetes mellitus with albuminuria E11.29; R80.9 Elevated troponin R77.8 (4) Hypertension Hypertension type: unspecified Qualified Code(s): I10 - Essential (primary) hypertension
[2024-01-03] MEDS: MECLIZINE 12.5 MG TAB PO SCH (15:35)
[2024-01-03] MEDS: LANTUS PER UNIT CHARGE SQ SCH (22:11)
[2024-01-04 06:58] LABS: Basophils # (auto) 0.03 K/uL (0.00-0.20); Basophils % (auto) 0.3 %; Eosinophils # (auto) 0.19 K/uL (0.00-0.50); Eosinophils % (auto) 1.9 %; Hemoglobin 9.9 g/dl (12.0-16.0); Immature Granulocytes # (auto) 0.05 K/uL (0.01-0.20); Immature Granulocytes % (auto) 0.5 %; Lymphocytes # (auto) 2.01 K/uL (1.20-3.40); Lymphocytes % (auto) 20.2 %; Mean Corpuscular Hemoglobin 28.6 pg (25.0-34.0); Mean Corpuscular Hgb Conc 31.9 g/dL (32.0-36.0); Mean Corpuscular Volume 89.6 fL (80.0-100.0); Mean Platelet Volume 10.3 fL (9.4-12.4); Monocytes # (auto) 0.59 K/uL (0.11-0.59); Monocytes % (auto) 5.9 %; Neutrophils # (auto) 7.06 K/uL (1.40-6.50); Neutrophils % (auto) 71.2 %; Platelet Count 276 K/uL (130-400); RDW Standard Deviation 42.6 fL (36.4-46.3); Red Blood Count 3.46 M/uL (4.20-5.40); White Blood Count 9.93 K/ul (4.8-10.8)
[2024-01-04 07:25] LABS: Calcium 8.7 mg/dl (8.6-10.3); Creatinine Clr Calc Pharmacy 50.8 ml/min; Est GFR (African American) 53.5 ml/min; Est GFR (Non-African American) 46.2 ml/min; Potassium 3.9 mmol/L (3.5-5.1)
--- NOTE | 2024-01-04 07:33 | XRay Report ---
XR chest 1V portable HISTORY: Shortness of breath. Congestive heart failure. COMPARISON: Chest 01/02/2024. FINDINGS: No pneumothorax. The heart remains mildly enlarged. There is mild pulmonary vascular conges tion again noted. Small left pleural effusion and left basilar density persists. No acute fractures. IMPRESSION: 1. Stable cardiomegaly and mild congestive change. 2. Small left pleural effusion and left basilar densities persist. ACT 112: Negative or not required by law. Electronically signed by: Edgar Meek M.D. 01/04/2024 7:31 AM
--- NOTE | 2024-01-04 15:10 | Hospitalist Progress Note ---
Date of Service January 04, 2024 Assessment & Plan (1) Acute on chronic heart failure with preserved ejection fraction (HFpEF): Plan: Continue parenteral Bumex diuresis. Monitor intake and output. Chest x-ray done today, January 03, looks better. Ejection fraction is normal with associated LVH. Spironolactone has been discontinued. (2) Benign positional vertigo: Plan: Present for several weeks. Continue scheduled dosing of meclizine. Supportive care (3) COPD (chronic obstructive pulmonary disease): Plan: Associated with chronic respiratory failure. She normally uses 2 L of oxygen continuously at baseline. No exacerbation. (4) Hypertension: Plan: Stable. Continue metoprolol and losartan (5) Diabetes mellitus with albuminuria: Plan: Last A1c at 10.3% on 12/02/2023. ADA diet. She refuses to take metformin. Continue twice daily Lantus therapy. Sliding scale coverage as needed (6) Elevated troponin: Plan: Mild on admission. No chest pain. No acute EKG changes. No evidence of acute coronary syndrome. Plan Hopeful discharge to home soon. Hopefully tomorrow, January 04 Admission and Anticipated Discharge Date Admission Date: January 04, 2024 Subjective Alert and oriented. Continued adequate diuresis with intravenous Bumex for the CHF. Chest x-ray obtained today, January 03, looks better. OT and PT assessments have been completed and both recommend discharge back to her home when the time comes. Glucose has improved to 165. She has been admitted from observation status. Hopefully she can go home within the next day or 2 Review of Systems 2 Review of Systems: Constitutional-no fever or chills ENT-no blurred vision, no double vision, no epistaxis, no sore throat Respiratory-no cough, no wheezing. Dyspnea on exertion Cardiac-no palpitations, no chest pain, no syncope GI-no nausea, vomiting, diarrhea, melena, hematochezia -no urinary retention, no urinary incontinence, no dysuria, no hematuria Musculoskeletal-no joint pain, no muscle tenderness Skin-no bruising, no rashes, no pruritus Neuro-no isolated weakness, no paresthesia, no weakness Psych-no depression, no anxiety Physical Exam 2 Physical Exam: General-alert and oriented x3, no fever, no chills HEENT-head atraumatic and normocephalic, pupils equal and reactive to light, extraocular muscles intact Neck-no lymphadenopathy or thyromegaly, trachea midline Chest-faint bibasilar inspiratory rales. No wheezing. No dullness Cardiac-regular rate and rhythm, normal S1 and S2 Abdomen-normal bowel sounds, nontender, no hepatosplenomegaly Extremities-no cyanosis, clubbing, or edema Neuro-cranial nerves II through XII intact, motor and sensory function within normal limits, strength symmetrical, no focal deficits Psych-anxious Results & Data Results & Data Vital Signs (Past 12 Hours) Vital Signs Temp Pulse Pulse Resp BP Pulse Ox O2 Del Method 01/04/24 13:13 85 20 93 Nasal Cannula 01/04/24 08:01 36.8 C 74 16 148/67 H 98 Nasal Cannula 01/04/24 07:17 88 18 96 Nasal Cannula 01/04/24 07:00 71 O2 Flow Rate 01/04/24 13:13 1 01/04/24 08:01 1 01/04/24 07:17 1 01/04/24 07:00 Laboratory Results 01/04/24 06:04 01/04/24 06:04 PG Care Time/CCT Total # of Minutes Spent Total Time Spent with Patient: Total time spent is greater than 50% in coordination of care (as documented) at patient's floor/unit and/or counseling patient: Coding Level of Care Code 01341 SUB INP/OBS CARE 3/50MIN Diagnoses Acute on chronic heart failure with preserved ejection fraction (HFpEF) I50.33 Benign positional vertigo H81.10 COPD (chronic obstructive pulmonary disease) J44.9 Hypertension I10 Hypertension type: unspecified Diabetes mellitus with albuminuria E11.29; R80.9 Elevated troponin R77.8 (4) Hypertension Hypertension type: unspecified Qualified Code(s): I10 - Essential (primary) hypertension
[2024-01-05] MEDS: METOPROLOL TARTRATE 1 MG/ML VIAL IV STA (04:45)
[2024-01-05] MEDS: MAGNESIUM SULFATE / D5W 1 GM/100 ML BAG IV ONE (04:46)
[2024-01-05 06:51] LABS: Basophils # (auto) 0.05 K/uL (0.00-0.20); Basophils % (auto) 0.5 %; Eosinophils # (auto) 0.36 K/uL (0.00-0.50); Eosinophils % (auto) 3.8 %; Hematocrit (blood only) 34.8 % (37.0-47.0); Immature Granulocytes # (auto) 0.07 K/uL (0.01-0.20); Immature Granulocytes % (auto) 0.7 %; Lymphocytes # (auto) 2.19 K/uL (1.20-3.40); Lymphocytes % (auto) 23.3 %; Mean Corpuscular Hemoglobin 28.6 pg (25.0-34.0); Mean Corpuscular Hgb Conc 31.6 g/dL (32.0-36.0); Mean Corpuscular Volume 90.6 fL (80.0-100.0); Monocytes # (auto) 0.63 K/uL (0.11-0.59); Monocytes % (auto) 6.7 %; Neutrophils # (auto) 6.08 K/uL (1.40-6.50); Platelet Count 301 K/uL (130-400); RDW Standard Deviation 42.7 fL (36.4-46.3); Red Blood Count 3.84 M/uL (4.20-5.40); White Blood Count 9.38 K/ul (4.8-10.8)
[2024-01-05 07:07] LABS: BUN Creatinine Ratio 47.2 (10-20); Calcium 8.7 mg/dl (8.6-10.3); Creatinine Clr Calc Pharmacy 46.6 ml/min; Est GFR (African American) 49.3 ml/min; Est GFR (Non-African American) 42.6 ml/min; Potassium 3.9 mmol/L (3.5-5.1)
--- NOTE | 2024-01-05 13:13 | Discharge Summary ---
Date of Service January 05, 2024 Admission HPI Per Admitting Provider Carli is a 78-year-old female with PMH of HFrEF, HTN, cardiomyopathy, COPD, hypothyroidism, dyslipidemia, diabetes, asthma, and arthritis. She presented via EMS for worsening dizziness x 3 weeks, as well as PANDEY the evening of 12/31. Patient is on 2L NC at baseline. She lives alone, but has an RN, every 1 to 2 weeks. She reports that her breathing got bad really bad last night and that she needed to use a nebulizer, which she only uses once or twice per year. She noted that she felt better after breathing treatment, but was still feeling presyncopal. Wheelchair-bound at baseline. She notes that she has been having worsening dizziness while doing lips and moving around in/out of her chair. No sick contacts. No CPAP at night. SOB is mainly with exertion; not different when lying flat; patient does sleep in a special chair/recliner with a head elevated. Patient came into the hospital as she could not get additional nebulizer medicine outpatient today on Wednesday. In regard to medicine, patient reports she only takes levothyroxine, insulin, and one of her 2 BP medications (she is unsure if this is metoprolol or losartan). She has not been taking her Bumex or spironolactone for several weeks. She does note significant leg swelling. She is also having some right hip pain; s/p fracture. In regard to dizziness, she does not have a history of vertigo or balance issues, but notes that she had some earwax noted during a outpatient PCP appointment recently. 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 No tobacco, smoking, or alcohol use. Patient is hypertensive at 218/91, and SpO2 is at 95% on 2 LNC at time of admission. ED Course: Methylprednisolone 125 mg IV DuoNeb 3 mL ROS: Patient endorses chest pressure (intermittent; feels like she is "squeezed by a bear"), pleuritic CP, dizziness with movements, PANDEY, recent changes in hearing, intermittent pain in ears when bending over to black pickler fallen objects, and swelling in legs. Patient denies fever, JORGENSEN, chest pain, chest palpitations, cough, abdominal pain, N/V/D, urinary s/s, burning with urination, blood in urine/stool, or redness/pain in legs. Principal Diagnosis Acute on chronic diastolic congestive heart failure, PAT with first-degree AV block, benign positional vertigo Discharge Exam General-alert and oriented x3, no fever, no chills HEENT-head atraumatic and normocephalic, pupils equal and reactive to light, extraocular muscles intact Neck-no lymphadenopathy or thyromegaly, trachea midline Chest-faint bibasilar inspiratory rales. No wheezing. No dullness Cardiac-regular rate and rhythm, normal S1 and S2 Abdomen-normal bowel sounds, nontender, no hepatosplenomegaly Extremities-no cyanosis, clubbing, or edema Neuro-cranial nerves II through XII intact, motor and sensory function within normal limits, strength symmetrical, no focal deficits Psych-anxious Discharge Data Allergies Allergy/AdvReac Type Severity Reaction Status Date / Time aspirin Allergy Severe HIVES; Verified 12/02/23 14:04 DIFFICULTY BREATHING colchicine Allergy Severe Difficulty Verified 12/02/23 14:04 Breathing Iodinated Contrast Media Allergy Intermediate Rash Verified 12/02/23 14:04 aspartame Allergy Unknown Unknown Verified 12/02/23 14:04 Benzodiazepines Allergy Unknown Unknown Verified 12/02/23 14:04 diltiazem Allergy Unknown UNKNOWN Verified 12/02/23 14:04 REACTION doxycycline Allergy Unknown Unknown Verified 12/02/23 14:04 melon Allergy Unknown Unknown Verified 12/02/23 14:04 nifedipine Allergy Unknown UNKNOWN Verified 12/02/23 14:04 REACTION simvastatin Allergy Unknown UNKNOWN Verified 12/02/23 14:04 REACTION PER PT sucralose Allergy Unknown Unknown Verified 12/02/23 14:04 vancomycin Allergy Unknown UNKNOWN Verified 12/02/23 14:04 REACTION metformin AdvReac Intermediate Diarrhea Verified 01/04/24 13:40 Consultations 01/02/24 15:48 ED Decision to Admit Stat Ordered Studies 01/02/24 16:35 US venous doppler [facility] Urgent Hospital Course (1) Acute on chronic heart failure with preserved ejection fraction (HFpEF): Treated while hospitalized with parenteral Bumex diuresis. Home on an increased dose of Bumex daily. Monitor intake and output. Chest x-ray done on January 03 looked better. Ejection fraction is normal with associated LVH. Spironolactone has been discontinued. (2) Benign positional vertigo: Present for several weeks. Improved continue scheduled dosing of meclizine for 1 more week. Supportive care (3) COPD (chronic obstructive pulmonary disease): Associated with chronic respiratory failure. She normally uses 2 L of oxygen continuously at baseline. No exacerbation. (4) Hypertension: Stable. Continue metoprolol and losartan (5) Diabetes mellitus with albuminuria: Last A1c at 10.3% on 12/02/2023. ADA diet. She refuses to take metformin. Continue twice daily Lantus therapy. Sliding scale coverage as needed (6) Elevated troponin: Mild on admission. No chest pain. No acute EKG changes. No evidence of acute coronary syndrome. Plan Home today, January 04 Total Time Total Time Spent Total Time Spent (In Minutes): 45-minute Discharge Plan Discharge Items Patient Disposition: Home - Home Health Services Reason For Visit: ACUTE ON CHRONIC CHF, WORSENING DIZZINESS Discharge Diagnosis: Acute on chronic diastolic congestive heart failure, PAT with first-degree AV block, benign positional vertigo Activity: Resume your previous activity Non-emergency contact: Primary Care Provider Call non-emergency contact if: your symptoms worsen Follow-up/Referrals: Luann France MD [Primary Care Provider] - Diet: Carb Consistent or DM2 and Heart Healthy Addtl Attending Provider Instructions: Take meclizine 3 times a day for 1 more week. Bumex dosage has been increased. Take Bumex in the early afternoon after lunch Pending Studies at Discharge: No Stand-Alone Forms: [facility] [employer], Smoking Cessation Medications and DC Order Prescriptions: New meclizine 12.5 mg Tablet 12.5 mg PO TID Qty: 21 0RF bumetanide 2 mg tablet 2 mg PO DAILY Qty: 30 0RF ipratropium-albuterol 0.5 mg-3 mg(2.5 mg base)/3 mL Solution For Nebulization 3 ml inhalation Q6R Qty: 90 0RF Continued levothyroxine 150 mcg tablet 150 mcg PO DAILYBB Qty: 90 3RF metoprolol succinate 200 mg tablet extended release 24 hr 200 mg PO DAILY Qty: 90 3RF losartan 50 mg tablet 50 mg PO QAM Qty: 90 3RF Patient Comments: PT STATED SHE DOES NOT TAKE THIS BP MEDICATION. potassium chloride 20 mEq packet 20 meq PO DAILY 30 Days Qty: 30 2RF insulin detemir U-100 100 unit/mL (3 mL) insulin pen 35 unit subcut QAM Qty: 15 3RF albuterol sulfate 90 mcg/actuation HFA aerosol inhaler 2 puff INHALATION Q4H PRN (Reason: cough/wheeze/shortness of breath) Qty: 18 1RF (DME) Spacer for Inhaler Misc See Rx Instructions .Route Qty: 1 0RF Rx Instructions: As directed acetaminophen [Tylenol Extra Strength] 500 mg tablet 1,000 mg PO Q8H PRN (Reason: Pain) (DME) OneTouch Verio test strips Strip See Rx Instructions .ROUTE .MEDSUPPLY Qty: 100 3RF Rx Instructions: for once a day testing (DME) pen needle, diabetic [BD Ultra-Fine Micro Pen Needle] 32 gauge x 1/4" needle See Rx Instructions .ROUTE .MEDSUPPLY Qty: 50 0RF Rx Instructions: As directed albuterol sulfate 2.5 mg/0.5 mL solution for nebulization 2.5 mg inhalation Q4H PRN (Reason: shortness of breath or wheezing or cough) Qty: 1 0RF triamcinolone acetonide 0.1 % cream 1 applic EXT BID PRN (Reason: FLARE UPS) Rx Instructions: apply twice daily in thin amounts to scaly, dry skin on front of legs; use for 5-7 days only. Discontinued spironolactone 25 mg tablet 25 mg PO DAILY Qty: 90 3RF bumetanide 1 mg tablet 1 mg PO DAILY Qty: 120 3RF Rx Instructions: Take in addition to .5 mg tablet for a total of 1.5 mg daily. May increase to 2 mg PRN for edema. bumetanide 0.5 mg tablet 0.5 mg PO DAILY Qty: 90 3RF Rx Instructions: Take in addition to Bumex 1 mg for a total dose of 1.5 mg daily. Discharge Orders: Discharge Order- CHF (Routine); Ordered 01/05/24 Ordered By: Keegan Montoya Admission Data Admit Date/Time: 01/04/24 12:30 Attending Provider: Keegan Montoya Admit Provider: Kerwin Lopez Primary Care Provider: Luann France Other Providers: Kerwin Lopez Coding Level of Care Code 12630 INP/OBS DISCH >30 MIN Diagnoses Acute on chronic heart failure with preserved ejection fraction (HFpEF) I50.33 Benign positional vertigo H81.10 COPD (chronic obstructive pulmonary disease) J44.9 Hypertension I10 Hypertension type: unspecified Diabetes mellitus with albuminuria E11.29; R80.9 Elevated troponin R77.8
--- NOTE | 2024-01-05 15:50 | Electrocardiogram Report ---
Test Reason : Blood Pressure : / mmHG Vent. Rate : 132 BPM Atrial Rate : 133 BPM P-R Int : 360 ms QRS Dur : 088 ms QT Int : 324 ms P-R-T Axes : 084 024 094 degrees QTc Int : 480 ms Sinus tachycardia with 1st degree A-V block Nonspecific ST abnormality Abnormal ECG When compared with ECG of 02-JAN-2024 13:28, SC interval has increased ST more depressed Lateral leads Confirmed by Klever Plata ([id number]) on 01/05/2024 3:50:06 PM Referred By: REFERRED SELF Confirmed By:Laurent Plata
--- NOTE | 2024-01-07 09:57 | Coding Query ---
CONGESTIVE HEART FAILURE To Promote full compliance with coding requirements relating to patient care, physician participation is requested in all cases of ear machine operator uncertainty. Please assist us with the following questions. Clinical Indicators: History and Physical: * Past Med/Surg History * Acute on chronic systolic heart failure * Acute on chronic heart failure with preserved ejection fraction (HFpEF) Discharge Summary: * Admission CHANA Boyce is a 78-year-old female with PMH of HFrEF... * Principal/Discharge Diagnosis - Acute on chronic diastolic heart failure A diagnosis of Congestive Heart Failure is documented in the patient's medical record. To accurately code this diagnosis and to compare patient severity, we ask that you specify the type of heart failure by placing an X within the parenthesis (x). SYSTOLIC HEART FAILURE ( ) Acute ( ) Chronic ( ) Acute on Chronic ( ) Rheumatic ( ) Unknown DIASTOLIC HEART FAILURE ( ) Acute ( ) Chronic (x ) Acute on Chronic ( ) Rheumatic ( ) Unknown COMBINED SYSTOLIC AND DIASTOLIC HEART FAILURE ( ) Acute ( ) Chronic ( ) Acute on Chronic ( ) Rheumatic ( ) Unknown ( ) OTHER: ( ) UNABLE TO DETERMINE Thank you Mikaela HIDALGO
== END 2024-01-05 15:55 | disposition home health service (06) | DRG 291 ==
LOC: ED 13:09 → EDINP 13:09 → SUATTDRO 16:59 → 2N 21:25

== ENCOUNTER 2024-05-05 07:48 | Inpatient (IN) ==
[2024-05-05] MEDS ORDERED: DEXTROSE 50% 50 ML SYRINGE IV PRN (14:36)
[2024-05-05] MEDS ORDERED: GLUCOSE 10 TAB/TUBE PO PRN (14:36)
[2024-05-05] MEDS ORDERED: GLUCAGON FOR INJ 1 MG VIAL SQ PRN (14:36)
[2024-05-05] MEDS ORDERED: GLUCOSE 40% GEL 15 GM TUBE PO PRN (14:36)
[2024-05-05] MEDS: ALBUT/IPRATROP 3MG/0.5MG NEB 3 ML VIAL ONE ×3 (15:02→15:46)
--- NOTE | 2024-05-05 15:07 | XRay Report ---
XR chest 1V portable [facility] Meade CLINICAL HISTORY: Dyspnea TECHNIQUE: Single frontal radiograph of the chest was obtained. Comparison: Comparison is made to chest radiograph 01/04/2024 FINDINGS: No lines and tubes are seen. Cardiomegaly is noted. The aortic arch is calcified. There is prominence and cephalization of the vasculature with Rosibel B lines seen. Small left pleural effusion is likely . IMPRESSION: Moderate pulmonary edema, increased from prior exam. Stable cardiomegaly. ACT 112: Negative or not required by law. Electronically signed by: Austin Ritter M.D. 05/05/2024 11:48 AM
--- NOTE | 2024-05-05 15:09 | History & Physical Report ---
Date of Service May 05, 2024 Assessment & Plan (1) Acute respiratory failure with hypoxia and hypercapnia: Plan: -Admit to PCU on tele/pulse oximetry -Currently stable on 2L NC but with a pCO2 of 87 and pH of 7.23 on VBG -Likely a combination of RLL pneumonia and acute exacerbation on HFrEF -Patient notes she does use 2L NC prn at home -BP has been stable, symptoms have been progressive over 1week, and no pleuritic chest pain, lower suspicion for PE at this time -Will do the following on admission: -2gm IV ceftriaxone Q24H -500 mg IV azithromycin now followed by 250 mg IV daily -1 mg IV Bumex BID -Bipap with respiratory protocol -Q4h VBG -Incentive spirometry, flutter therapy -QID r DuoNeb treatments -Prn O2 to keep SpO2 between 89-92% -Will need to wait for results of CMP to order chemical DVT PPX, BL SCD's for now -NPO while on Bipap -AM CBC, CMP, Mag, PT/INR (2) Acute heart failure with reduced ejection fraction (HFrEF, <= 40%): Plan: -Patient is significantly volume overloaded on exam with BL LE edema, JVD, and signs of congestive failure on exam -Is supposed to be taking 1mg PO bumex daily, is often non-compliant -Will give 1mg IV bumex now and continue with 1mg IV BID moving forward -Monitor intake/output QSE, daily weights -Monitor daily renal function and electrolytes (3) Pneumonia: Plan: -Appears to have a RLL infiltrate on CXR per review of admission team -CBC is WNL, patient is not septic on exam -No previous hx of resistant organisms -Will give a dose of Ceftriaxone and Azithromycin now, continue q24h dosing moving forward -Will obtain procal and sputum culture w/gram stain on admission -Rest of care per acute respiratory failure plan (4) Hypothyroidism: Plan: -Continue levothyroxine (5) Elevated troponin: Plan: -Initial high sen trop elevated at 23 -Patient has been experiencing progressive chest pressure over the past week -In sinus tachycardia on ECG without acute ST segment or T-wave changes -Likely due to demand from CHF exacerbation and Pneumonia -Will follow 2 hour high sen trop ordered on admission -Continue to monitor on tele (6) Obstructive lung disease: Plan: -See acute hypoxic respiratory failure plan (7) Type 2 diabetes mellitus with obesity: Plan: -Monitor BSG ACHS, goal is 110-160 -Hold Semaglutide -Start 40 units lantus qHS -Start CF of 20 and CR of 10 ACHS -Adjust regimen as needed Plan The patient was discussed with Dr. Lopez at the time of the admission History of Present Illness Chief Complaint: SOB Primary Care Provider: Luann France MD Patient was seen and admitted during a period of EMR downtime. Carli is a a 78-year-old female with PMH of HFrEF, HTN, cardiomyopathy, COPD, hypothyroidism, dyslipidemia, diabetes, asthma, and arthritis who presented to the [facility] ED on 05/05/24 with a chief complaint of SOB x one week. She was found to be hypoxic on arrival with SpO2 in the mid 80s. Labs were significant for a VBG pH 7.23, pCO2 of 87, pO2 of 54, with full respiratory biofire negative, and CBC WNL. CMP, high sen trop, BNP were in process at the time of the admission. Chest Xray was review by myself and Dr. Lopez as official reads have been delayed due to IT downtime, it appears to show a RLL pneumonia with signs of interstitial pulmonary edema and small, BL pleural effusions. Patient was sitting in bed in mild distress due to anxiety and respiratory distress. States that she lives at home, alone. Started to develop progressive SOB, chest pressure, and non-productive cough approximately one week ago. Has been missing doses of her home Bumex as she forgets to take it. No recent fever, hemoptysis, pleuritic chest pain, abd pain, nausea/vomiting, diarrhea, recent trauma. Is wheelchair bound due to complications of previous spinal surgery. Feels her BL LE lymphedema has been getting worse. Discussion was held between the patient and her Daughter (who was on video call) regarding the need for Bipap due to her significantly elevated pCO2. Patient expressed concern that she will not be able to tolerate Bipap. Discussed next options would be intubation or comfort measures if she were to continue to decline clinically. Patient clearly expressed that she would NOT want CPR or intubation if she were to clinically decline. Her daughter was in agreement with her Choices. Plan is to attempt Bipap with prn Ativan for anxiety. If she fails Bipap and continues to decline we will convert to comfort measures. Please refer to Dr. Lopez's attestation for any changes to the treatment plan Allergies Allergy/AdvReac Type Severity Reaction Status Date / Time aspirin Allergy Severe HIVES; Verified 04/25/24 15:44 DIFFICULTY BREATHING colchicine Allergy Severe Difficulty Verified 04/25/24 15:44 Breathing Iodinated Contrast Media Allergy Intermediate Rash Verified 04/25/24 15:44 aspartame Allergy Unknown Unknown Verified 04/25/24 15:44 Benzodiazepines Allergy Unknown Unknown Verified 04/25/24 15:44 diltiazem Allergy Unknown UNKNOWN Verified 04/25/24 15:44 REACTION doxycycline Allergy Unknown Unknown Verified 04/25/24 15:44 melon Allergy Unknown Unknown Verified 04/25/24 15:44 nifedipine Allergy Unknown UNKNOWN Verified 04/25/24 15:44 REACTION simvastatin Allergy Unknown UNKNOWN Verified 04/25/24 15:44 REACTION PER PT sucralose Allergy Unknown Unknown Verified 04/25/24 15:44 vancomycin Allergy Unknown UNKNOWN Verified 04/25/24 15:44 REACTION metformin AdvReac Intermediate Diarrhea Verified 04/25/24 15:44 Home Medications Medication Instructions Recorded Confirmed Type Spacer for Inhaler #1 ea 09/04/22 04/25/24 Rx blood sugar diagnostic (OneTouch #100 ea 12/17/22 04/25/24 Rx Verio test strips) pen needle, diabetic 32 gauge x #50 ea 12/17/22 04/25/24 Rx 1/4" (BD Ultra-Fine Micro Pen Needle) albuterol sulfate 90 mcg/actuation 2 puff inhalation Q4H PRN 03/14/23 05/05/24 Rx aerosol inhaler cough/wheeze/shortness of breath #18 grams triamcinolone acetonide 0.1 % 1 applic EXT BID PRN FLARE UPS 04/17/23 05/05/24 History topical cream metoprolol succinate 200 mg 200 mg PO DAILY #90 tabs 07/13/23 05/05/24 Rx tablet,extended release 24 hr losartan 50 mg tablet 50 mg PO QAM #90 tabs 09/03/23 05/05/24 Rx meclizine 12.5 mg tablet 12.5 mg PO TID #21 tabs 01/05/24 05/05/24 Rx ipratropium 0.5 mg-albuterol 3 mg 3 ml inhalation Q6R #90 mL 01/06/24 05/05/24 Rx (2.5 mg base)/3 mL nebulization soln bumetanide 1 mg tablet 1 mg PO DAILY #120 tabs 01/10/24 05/05/24 Rx levothyroxine 150 mcg tablet 150 mcg PO DAILYBB #90 tabs 01/17/24 05/05/24 Rx albuterol sulfate 2.5 mg/0.5 mL 2.5 mg inhalation Q4H PRN 02/07/24 05/05/24 History solution for nebulization shortness of breath or wheezing or cough insulin glargine 100 unit/mL (3 40 unit (0.4 mL) subcut QAM 90 02/14/24 05/05/24 Rx mL) subcutaneous pen (aglar days #36 mL KwikPen U-100 Insulin) Past Med/Surg History Problem List (Updated 05/05/24 @ 14:58 by Gonzalo Turpin PA-C) Pneumonia Acute heart failure with reduced ejection fraction (HFrEF, <= 40%) Acute respiratory failure with hypoxia and hypercapnia Vertigo Sensorineural hearing loss (SNHL) of left ear with restricted hearing of right ear Type 2 diabetes mellitus with obesity Benign positional vertigo CHF (congestive heart failure) (Acute) Acute and chronic respiratory failure (Acute) HFrEF (heart failure with reduced ejection fraction) Anemia Acute on chronic heart failure with preserved ejection fraction (HFpEF) Hypercapnic respiratory failure, chronic Pleural effusion (Acute) CHF (congestive heart failure) (Acute) Pericardial effusion Pulmonary hypertension Atypical nevus of thoracic region Cardiomyopathy Contracture of right knee Impacted fracture of right hip (~04/19/23) Proteinuria Elevated troponin (Acute) Bronchiectasis Chronic respiratory failure with hypoxia, on home O2 therapy O2 prn at 2L Hypothyroidism Obstructive lung disease Asthma Migraine headache Arthritis Venous stasis dermatitis of both lower extremities Nephrotic range proteinuria Shortness of breath Acute maculopapular rash Dyslipidemia Obstructive pattern present on pulmonary function testing Ambulatory dysfunction Diastolic heart failure HX Medical History Abdominal distension Epistaxis Acute on chronic systolic heart failure Nausea & vomiting Near syncope Hydronephrosis, bilateral Acute UTI Hypertension Hypothyroidism COPD (chronic obstructive pulmonary disease) Acute on chronic heart failure with preserved ejection fraction (HFpEF) Renal cyst, left Obstructive pattern present on pulmonary function testing Pleuritic chest pain 4x in the past year CHF exacerbation HX-RECENTLY (HFpEF) heart failure with preserved ejection fraction Acute and chronic respiratory failure with hypoxia Lymphedema Chest pain hx-"more pleuritic pain, not cardiac related" Type 2 diabetes mellitus with peripheral neuropathy Chronic edema Hypomagnesemia Hypokalemia Chronic respiratory failure with hypoxia, on home O2 therapy O2 prn at 2L Elevated serum globulin level Multiple drug allergies Ambulatory dysfunction Wheelchair bound Right knee DJD Lower extremity edema Hx of thyroid cancer History of seizures as a child Financial difficulties Diastolic heart failure HX Hypothyroidism, postablative Acute diastolic (congestive) heart failure HX HTN (hypertension) Pleurisy without effusion have been hospitalized 4x in the past year for this History of ectopic Hx of papillary thyroid carcinoma Gait abnormality Dyslipidemia Vitamin D deficiency Hx of pleurisy HTN (hypertension) Surgical History History of D&C Hx of thyroidectomy Hx of brain surgery 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 during the procedure Hx of section Family History Father Stroke Mother Dementia Diabetes Sister Macular degeneration Brother Macular degeneration Other TIA (transient ischemic attack) Denies family history of Ovarian cancer Prostate cancer Myocardial infarction Breast cancer Colorectal cancer Social History Smoking Status: Never smoker Second Hand Exposure: No; Do You Dip or Chew Tobacco: No; Hx Alcohol Use: No Hx Substance Use: No Preferred Language: Jamaican Communication Ability: Effective Visual Impairment: No Limitations Hearing Ability: Normal 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 No male caregivers for purposes of bathing, byron-care, or any care that would have patient exposed w/no clothing. (before his ) was M[employer]ite/[employer], per patient. 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 Feels Safe at Home: Yes Childhood Exposure to Second-Hand Smoke: No Diet: regular Dental Care, Regularly: Yes Physical Activity Frequency: Does not Exercise Seatbelt Use: always Sunscreen Use: No Assistive Devices: Oxygen - at Night, Stair Lift and Wheelchair Physical Exam Physical Exam: Physical Exam: General: In mild distress, stated age, ill-appearing but non- toxic HEENT: Normocephalic, atraumatic, no scleral icterus, pupils around round, symmetrical, and reactive to light, moist mucus membranes, +JVD, trachea midline, no thyromegaly Chest/Pulm: mild respiratory distress, symmetrical chest expansion, rhonchi noted in the RLL, decreased breath sounds in he LLL with crackles in the BL mid/upper lobes Cardiac: tachycardic rate, regular rhythm, no murmurs noted Abdomen: Negative for ascites and bruising, normoactive bowel sounds, soft, non-tender to palpation throughout Musculoskeletal: Symmetrical and without signs of acute trauma, upper and lower extremities with full ROM, no atrophy, spasticity, or flaccidity Extremities: Radial pulses are intact and symmetrical, severe lymphedema noted in the BL LEs Skin: Symmetrical erythema on the BL LEs consistent with Lymphedema Neuro: Alert and oriented to person, place, month, year, and president, no focal defects, Psych: No acute distress, calm and cooperative during the exam Results & Data Results & Data Laboratory Results Initial high sen trop: 23 pg/mL BNP: 863 ECG Additional Comments: ECG: Sinus tachycardia, age undetermined anteroseptal infarct Code Status & VTE Plan Code Status DNR/DNI VTE Prophylaxis Plan VTE Prophylaxis will be ordered: Yes Supervising Physician Co-Signing Physician Notes Patient seen and examined, chart reviewed, case discussed with Gonzalo Turpin PA-C and I agree with the assessment and plan as above except as otherwise noted Labs and images reviewed 78-year-old female with a history of heart failure, recurrent left lower lobe pneumonia who presents with progressive lower extremity swelling, shortness of breath, dyspnea, and cough intermittently productive for white sputum. She feels generally weak and unwell. Feels she has been worsening over 1 week. Chest x-ray reviewed during downtime, consistent with pulmonary congestion, edema, bilateral effusions. Left lower lobe increased density from which p neumonia is not excluded. Was admitted initially treated for both CHF and potential superimposed pneumonia. Agree with treatment with Bumex, Rocephin, azithromycin, low-salt diet, fluid restriction. Labs reviewed, respiratory acidosis with chronic underlying metabolic alkalosis. pCO2 greater than 80. Recommended BiPAP which patient initially refused due to feeling uncomfortable. Did discuss this with her, given acidemia with pCO2 greater than 80 did recommend BiPAP until improved. Patient requested to discuss what would be done if she did not use the BiPAP. Reviewed potential for respiratory worsening, and that in severe cases could cause a respiratory or cardiac arrest. Agrees to trialing BiPAP with Ativan for anxiety. On discussion patient reports that in the event of a cardiopulmonary arrest, or in the event that her breathing was significantly worsening to the point where it was immediately life-threatening she would rather be allowed to pass then have to CPR/intubation consistent with DNR/DNI status. Daughter was present for this conversation. CODE STATUS updated. Resting comfortably at time of reassessment. On exam lungs are diminished with crackles and light rales in the bases bilaterally much more appreciable in the left lower lobe, bilateral ending edema through the legs and thighs, and JVD is present all consistent with acute CHF exacerbation. PG Care Time/CCT Total # of Minutes Spent Total Time Spent with Patient: Total time spent is greater than 50% in coordination of care (as documented) at patient's floor/unit and/or counseling patient: [place] [address] INT INP/OBS CARE 3/75MIN Patient Type Established Medical Decision Making High Complexity Diagnoses Acute respiratory failure with hypoxia and hypercapnia J96.01; J96.02 Acute heart failure with reduced ejection fraction (HFrEF, <= 40%) I50.21 Pneumonia J18.9 Hypothyroidism E03.9 Elevated troponin R77.8 Obstructive lung disease J44.9 Type 2 diabetes mellitus with obesity E11.69; E66.9
[2024-05-05] MEDS: INSULIN ASPART PER UNIT CHARGE ONE (15:46)
[2024-05-05] MEDS: LORazepam 1 MG/1 ML SYR ED Inj Use ONE (15:46)
[2024-05-05] MEDS: cefTRIAXone SODIUM 2,000 MG/50 ML BAG IV STA (15:52)
[2024-05-05] MEDS: ALBUT/IPRATROP 3MG/0.5MG NEB 3 ML VIAL NEB SCH (15:52)
[2024-05-05] MEDS: LOSARTAN POTASSIUM 50 MG TAB PO STA (15:54)
[2024-05-05] MEDS: METOPROLOL SUCC 50MG EXT REL TAB PO STA (15:54)
[2024-05-05] MEDS: AZITHROMYCIN 500 MG in DEXTROSE 5% 250 ML IV STA (15:55)
[2024-05-05] MEDS: BUMETANIDE 1 MG in SYRINGE 0 ML IV ONE (15:55)
[2024-05-05 16:20] LABS: Base Excess VBG 8.7 mEq/L; HCO3 VBG 37 mmol/L; Oxygen Saturation VBG 80.5 %; PCO2 VBG 69 mmHg (38-50); PO2 VBG 49 mmHg; pH VBG 7.34 (7.36-7.41)
[2024-05-05 16:48] LABS: INR 0.9 (0.9-1.1); Partial Thromboplastin Time 28 Seconds (21-31); Prothrombin Time 10.3 Seconds (9.0-12.0)
[2024-05-05 17:04] LABS: Adenovirus PCR Not Detected (NotDetected); Bordetella parapertussis PCR Not Detected (NotDetected); Bordetella pertussis PCR Not Detected (NotDetected); Chlamydia pneumoniae PCR Not Detected (NotDetected); Coronavirus 229E PCR Not Detected (NotDetected); Coronavirus CoV-2 (COVID19)PCR Not Detected (NotDetected); Coronavirus HKU1 PCR Not Detected (NotDetected); Coronavirus NL63 PCR Not Detected (NotDetected); Coronavirus OC43PCR Not Detected (NotDetected); Human Metapneumovirus PCR Not Detected (NotDetected); Influenza A PCR Not Detected (NotDetected); Influenza B PCR Not Detected (NotDetected); Mycoplasma pneumoniae PCR Not Detected (NotDetected); Parainfluenza Virus 1 PCR Not Detected (NotDetected); Parainfluenza Virus 2 PCR Not Detected (NotDetected); Parainfluenza Virus 3 PCR Not Detected (NotDetected); Parainfluenza Virus 4 PCR Not Detected (NotDetected); Respiratory Syncytial VirusPCR Not Detected (NotDetected); Rhinovirus/Enterovirus PCR Not Detected (NotDetected)
--- NOTE | 2024-05-05 18:13 | Emergency Department Note ---
Impression & Plan Acute respiratory failure with hypoxia and hypercapnia, Acute heart failure with reduced ejection fraction (HFrEF, <= 40%), Pneumonia ED Provider Note CHIEF COMPLAINT: Shortness of breath HISTORY OF PRESENTING ILLNESS: This 78-year-old female patient presents to the emergency department via EMS for evaluation of shortness of breath. The patient states she started with shortness of breath last night, but became significantly worse today. She used an albuterol nebulizer treatment last night with mild improvement, but no improvement of her symptoms this morning. She has had a mild cough, but no fever or other URI symptoms. No known ill contacts. The patient has a history of lymphedema, but states that her legs feel more swollen and are weeping more than usual. The patient is wheelchair-bound. The patient has also had 4 previous pneumonias recently requiring admission and IV antibiotics per patient. The patient does not know if she has a history of CHF, but states that she does have frequent "fluid overload." The patient has had some increased urinary frequency recently, but no burning with urination and no hematuria. She denies any problems with her bowel movements. She feels like there is a slight pressure in her chest from the shortness of breath like her chest might be being squeezed. She denies any abdominal pain, nausea, or vomiting. The patient states that she did not take her blood pressure medication this morning yet, but does not remember what she takes. The patient states that she takes multiple medications, but does not remember any of them. She also states that she is allergic to possibly 40 medications, but does not remember any of them. The patient states that she is not on any blood thinners that she knows of. REVIEW OF SYSTEMS: See HPI for pertinent positives and pertinent negatives. ALLERGIES: Unable to obtain due to unexpected computer downtime MEDICATIONS: Unable to obtain due to unexpected computer downtime PAST MEDICAL HISTORY: The patient states that she has a history of asthma, lymphedema, diabetes, hypertension, hypothyroidism, and deafness in her left ear. Unknown if she has any additional health problems due to the computer downtime. PHYSICAL EXAM: VITALS: Vitals are noted on the nurse's note and reviewed by myself. GENERAL: The patient appears in mild to moderate respiratory arrest on arrival. However, she is nontoxic and non-diaphoretic. SKIN: The patient has significant edema of the bilateral lower extremities with some weeping of serous fluid. Minimal erythema of the bilateral distal lower legs consistent with her lymphedema, but does not appear consistent with cellulitis at this time. No obvious abscess noted. Positive pitting edema. Capillary refill <2 sec. EYES: PERRLA. EOMI. Conjunctivae without injection, sclerae without icterus. NOSE: Patent without discharge. MOUTH: Mucous membranes moist. Uvula midline. Airway patent. NECK: Supple without nuchal rigidity. No lymphadenopathy. Trachea is midline. HEART: Tachycardic without murmurs gallops or rubs. LUNGS: The patient has diffuse wheezes and rhonchi throughout bilaterally. The patient has accessory muscle use and mild retractions initially. After the hour-long DuoNeb treatment, the patient has had some improvement of the wheezing, but still had rhonchi and possible Rales noted. She still had accessory muscle use, but no longer retracting. ABDOMEN: Positive bowel sounds x 4. Normal tympanic percussion. Soft, nontender. No masses or organomegaly. Quinones sign negative. No guarding or rebound tenderness. No focal RLQ or LLQ tenderness. MUSCULOSKELETAL: See skin exam above. NEURO: Patient was alert and oriented. No focal neurological deficits. DIFFERENTIAL DIAGNOSIS: Differential diagnosis includes URI, bronchitis, pneumonia, pneumothorax, hemothorax, PE, VT, pericarditis, myocarditis, airway obstruction, aspiration, pulmonary edema, asthma, COPD, CHF, pleurisy, metabolic acidosis, anemia, neoplasm, or others. ED COURSE AND MEDICAL DECISION MAKING: HISTORY FROM INDEPENDENT HISTORIAN: Additional history was obtained from EMS. MONITOR: Continuous shale processing technician: Order was placed for continuous shale processing technician. Patient was placed on the shale processing technician and continuous pulse ox. Patient was noted to be in normal sinus rhythm at an initial rate of [] bpm per my interpretation. EKG: EKG was interpreted by myself as sinus tachycardia at 107 bpm, but no acute ST or T wave changes. MEDICATIONS GIVEN: Single DuoNeb treatment initially followed by an hour-long DuoNeb treatment INTERPRETATION OF LABS: I interpreted the labs with full lab results as below in the lab section of this note. VBG showed a low pH of 7.23, elevated pCO2 of 87, normal pO2 of 54, and otherwise normal. White blood cell count normal at 9.02. Hemoglobin low at 10.9. Platelet count normal at 226. Coags were normal. CMP showed carbon dioxide of 37 and glucose 314, but otherwise unremarkable. BNP was elevated at 863. High-sensitivity troponin elevated at 23.1 with repeat 30.2. Respiratory bio fire was negative. INTERPRETATION OF IMAGING: Imaging studies were interpreted by myself and read by radiology as per the imaging section of this note. Chest x-ray showed moderate pulmonary edema increased from her prior exam with stable cardiomegaly. Per my interpretation there is also concern for possible pneumonia as well. CONSULTATIONS: On-call hospitalist MDM SUMMARY: The patient presented to the emergency department during an unexpected computer downtime. All of the patient's workup and ER stay was completed/documented on downtime paper forms. I examined the patient. The patient is a very poor historian. The patient stated that she has been having increasing shortness of breath over the past 2 days that is no longer responding to her albuterol nebulizers. The patient is in mild to moderate respiratory distress on exam with a heart rate of 102 and pulse ox of 98% on 4 L. An IV lock was placed and labs were drawn. The patient was given a single DuoNeb treatment followed by an hour-long DuoNeb treatment. This improved her wheezing and her retractions, but she was still having difficulty breathing. Due to the unexpected downtime, there was a significant delay in the results of the patient's workup. Chest x-ray per my interpretation showed congestive changes with possible pneumonia with radiology report as above. Unfortunately, the patient stated that she had "many" medication allergies and was not able to take many medications. The patient did not feel comfortable with me starting medications without knowing her history. Therefore, with no access to her records, I did not start any antibiotics or Lasix initially. I had a meaningful discussion about this patient with Dr. Yoder who agrees with my assessment and the treatment plan. I spoke with the on-call hospitalist who agreed to admit the patient for her respiratory failure prior to all of the workup being completed due to the significant delay from the computer downtime. Please refer to their dictation for further details. The patient will be admitted for her respiratory failure and hypoxia with concern for CHF and pneumonia. The patient's blood work did come back after she was admitted and is as above. The patient's care was transferred to the on-call hospitalist service in stable condition. DIAGNOSIS: Respiratory failure with hypoxia CHF Probable pneumonia Elevated troponin Past Med/Surg History Problem List (Updated 05/05/24 @ 20:20 by Michelle Rivers PA-C) Pneumonia (Acute) Acute heart failure with reduced ejection fraction (HFrEF, <= 40%) (Acute) Acute respiratory failure with hypoxia and hypercapnia (Acute) Vertigo Sensorineural hearing loss (SNHL) of left ear with restricted hearing of right ear Type 2 diabetes mellitus with obesity Benign positional vertigo CHF (congestive heart failure) (Acute) Acute and chronic respiratory failure (Acute) HFrEF (heart failure with reduced ejection fraction) Anemia Acute on chronic heart failure with preserved ejection fraction (HFpEF) Hypercapnic respiratory failure, chronic Pleural effusion (Acute) CHF (congestive heart failure) (Acute) Pericardial effusion Pulmonary hypertension Atypical nevus of thoracic region Cardiomyopathy Contracture of right knee Impacted fracture of right hip (~04/19/23) Proteinuria Elevated troponin (Acute) Bronchiectasis Chronic respiratory failure with hypoxia, on home O2 therapy O2 prn at 2L Hypothyroidism Obstructive lung disease Asthma Migraine headache Arthritis Venous stasis dermatitis of both lower extremities Nephrotic range proteinuria Shortness of breath Acute maculopapular rash Dyslipidemia Obstructive pattern present on pulmonary function testing Ambulatory dysfunction Diastolic heart failure HX Medical History Abdominal distension Epistaxis Acute on chronic systolic heart failure Nausea & vomiting Near syncope Hydronephrosis, bilateral Acute UTI Hypertension Hypothyroidism COPD (chronic obstructive pulmonary disease) Acute on chronic heart failure with preserved ejection fraction (HFpEF) Renal cyst, left Obstructive pattern present on pulmonary function testing Pleuritic chest pain 4x in the past year CHF exacerbation HX-RECENTLY (HFpEF) heart failure with preserved ejection fraction Acute and chronic respiratory failure with hypoxia Lymphedema Chest pain hx-"more pleuritic pain, not cardiac related" Type 2 diabetes mellitus with peripheral neuropathy Chronic edema Hypomagnesemia Hypokalemia Chronic respiratory failure with hypoxia, on home O2 therapy O2 prn at 2L Elevated serum globulin level Multiple drug allergies Ambulatory dysfunction Wheelchair bound Right knee DJD Lower extremity edema Hx of thyroid cancer History of seizures as a child Financial difficulties Diastolic heart failure HX Hypothyroidism, postablative Acute diastolic (congestive) heart failure HX HTN (hypertension) Pleurisy without effusion have been hospitalized 4x in the past year for this History of ectopic Hx of papillary thyroid carcinoma Gait abnormality Dyslipidemia Vitamin D deficiency Hx of pleurisy HTN (hypertension) Surgical History History of D&C Hx of thyroidectomy Hx of brain surgery 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 during the procedure Hx of section Family History Father Stroke Mother Dementia Diabetes Sister Macular degeneration Brother Macular degeneration Other TIA (transient ischemic attack) Denies family history of Ovarian cancer Prostate cancer Myocardial infarction Breast cancer Colorectal cancer Social History Smoking Status: Never smoker Second Hand Exposure: No; Do You Dip or Chew Tobacco: No; Hx Alcohol Use: No Hx Substance Use: No Preferred Language: Burmese Communication Ability: Effective Visual Impairment: No Limitations Hearing Ability: Normal Manager Professional Development Required: Yes Beliefs That Will Affect Care: None 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 Feels Safe at Home: Yes Childhood Exposure to Second-Hand Smoke: No Diet: regular Dental Care, Regularly: Yes Physical Activity Frequency: Does not Exercise Seatbelt Use: always Sunscreen Use: No Assistive Devices: Glasses, Oxygen - Continuous, Stair Lift and Wheelchair Allergies Allergies Allergy/AdvReac Type Severity Reaction Status Date / Time aspirin Allergy Severe HIVES; Verified 04/25/24 15:44 DIFFICULTY BREATHING colchicine Allergy Severe Difficulty Verified 04/25/24 15:44 Breathing Iodinated Contrast Media Allergy Intermediate Rash Verified 04/25/24 15:44 aspartame Allergy Unknown Unknown Verified 04/25/24 15:44 Benzodiazepines Allergy Unknown Unknown Verified 04/25/24 15:44 diltiazem Allergy Unknown UNKNOWN Verified 04/25/24 15:44 REACTION doxycycline Allergy Unknown Unknown Verified 04/25/24 15:44 melon Allergy Unknown Unknown Verified 04/25/24 15:44 nifedipine Allergy Unknown UNKNOWN Verified 04/25/24 15:44 REACTION simvastatin Allergy Unknown UNKNOWN Verified 04/25/24 15:44 REACTION PER PT sucralose Allergy Unknown Unknown Verified 04/25/24 15:44 vancomycin Allergy Unknown UNKNOWN Verified 04/25/24 15:44 REACTION metformin AdvReac Intermediate Diarrhea Verified 04/25/24 15:44 Home Meds Home Medications Medication Instructions Recorded Confirmed triamcinolone acetonide 0.1 % 1 applic EXT BID PRN FLARE UPS 04/17/23 05/05/24 topical cream albuterol sulfate 2.5 mg/0.5 mL 2.5 mg inhalation Q4H PRN 02/07/24 05/05/24 solution for nebulization shortness of breath or wheezing or cough Previous Rx's Medication Instructions Recorded Spacer for Inhaler #1 ea 09/04/22 blood sugar diagnostic (OneTouch #100 ea 12/17/22 Verio test strips) pen needle, diabetic 32 gauge x #50 ea 12/17/2210/21" (BD Ultra-Fine Micro Pen Needle) albuterol sulfate 90 mcg/actuation 2 puff inhalation Q4H PRN 03/14/23 aerosol inhaler cough/wheeze/shortness of breath #18 grams metoprolol succinate 200 mg 200 mg PO DAILY #90 tabs 07/13/23 tablet,extended release 24 hr losartan 50 mg tablet 50 mg PO QAM #90 tabs 09/03/23 meclizine 12.5 mg tablet 12.5 mg PO TID #21 tabs 01/05/24 ipratropium 0.5 mg-albuterol 3 mg 3 ml inhalation Q6R #90 mL 01/06/24 (2.5 mg base)/3 mL nebulization soln bumetanide 1 mg tablet 1 mg PO DAILY #120 tabs 01/10/24 levothyroxine 150 mcg tablet 150 mcg PO DAILYBB #90 tabs 01/17/24 insulin glargine 100 unit/mL (3 40 unit (0.4 mL) subcut QAM 90 02/14/24 mL) subcutaneous pen ( #36 mL KwikPen U-100 Insulin) Results & Data (ED) Laboratory Data 05/06/24 06:24 05/06/24 06:24 Lab Results 05/05/24 Range/Units 10:40 WBC 9.02 (4.8-10.8) K/ul RBC 4.15 L (4.20-5.40) M/uL Hgb 10.9 L (12.0-16.0) g/dl Hct 36.4 L (37.0-47.0) % MCV 87.7 (80.0-100.0) fL MCH 26.3 (25.0-34.0) pg MCHC 29.9 L (32.0-36.0) g/dL RDW Std Deviation 46.8 H (36.4-46.3) fL RDW Coeff of Smith 14.6 H (11.5-14.5) % Plt Count 236 (130-400) K/uL MPV 10.6 (9.4-12.4) fL Immature Gran % (Auto) 0.6 % Neut % (Auto) 77.4 % Lymph % (Auto) 13.7 % Lewis % (Auto) 6.7 % Eos % (Auto) 1.0 % Baso % (Auto) 0.6 % Neut # (Auto) 6.99 H (1.40-6.50) K/uL Lymph # (Auto) 1.24 (1.20-3.40) K/uL Lewis # (Auto) 0.60 H (0.11-0.59) K/uL Eos # (Auto) 0.09 (0.00-0.50) K/uL Baso # (Auto) 0.05 (0.00-0.20) K/uL Immature Gran # (Auto) 0.05 (0.01-0.20) K/uL Ovalocytes 1+ PT 10.3 (9.0-12.0) Seconds INR 0.9 (0.9-1.1) APTT 28 (21-31) Seconds PTT Ratio 1.0 VBG pH 7.23 L (7.36-7.41) VBG pCO2 87 H (38-50) mmHg VBG pO2 54 mmHg VBG HCO3 36 mmol/L VBG O2 Saturation 80.3 % VBG Base Excess 6.2 mEq/L Sodium 139 (136-145) mmol/L Potassium 3.7 (3.5-5.1) mmol/L Chloride 99 (98-107) mmol/L Carbon Dioxide 37 H (21-32) mmol/L Anion Gap 3 (3-11) BUN 20 (6-23) mg/dl Creatinine 0.93 (0.6-1.2) mg/dl Est Cr Clr Drug Dosing 59.7 ml/min Est GFR ( Amer) 69.2 ml/min Est GFR (Non-Af Amer) 59.7 ml/min BUN/Creatinine Ratio 21.5 H (10-20) Glucose 314 H* (70-99(Fasting)) mg/dl Calcium 8.9 (8.6-10.3) mg/dl Magnesium 2.1 (1.7-2.4) mg/dl Total Bilirubin 0.6 (0.2-1.0) mg/dl AST 12 L (13-39) U/L ALT 7 (7-52) U/L Alkaline Phosphatase 74 (34-104) U/L Troponin I High Sens 23.1 H (0-14) pg/ml B-Natriuretic Peptide 863 H (0-100) pg/ml Total Protein 8.2 (6.0-8.3) gm/dl Albumin 3.9 (3.4-5.0) gm/dl Globulin 4.3 H (2.5-4.0) gm/dl Albumin/Globulin Ratio 0.9 (0.9-2) Adenovirus (PCR) Not Detected (NotDetected) B. pertussis DNA (PCR) Not Detected (NotDetected) B.parapertussis DNA PCR Not Detected (NotDetected) C. pneumoniae DNA (PCR) Not Detected (NotDetected) Coronavirus OC43 (PCR) Not Detected (NotDetected) Coronavirus HKU1 (PCR) Not Detected (NotDetected) Coronavirus 229E (PCR) Not Detected (NotDetected) SARS-CoV-2 (PCR) Not Detected (NotDetected) Coronavirus NL63 (PCR) Not Detected (NotDetected) Human Metapneumovir PCR Not Detected (NotDetected) Influenza Type A (PCR) Not Detected (NotDetected) Influenza Type B (PCR) Not Detected (NotDetected) M. pneumoniae (PCR) Not Detected (NotDetected) Parainfluenza 1 (PCR) Not Detected (NotDetected) Parainfluenza 2 (PCR) Not Detected (NotDetected) Parainfluenza 3 (PCR) Not Detected (NotDetected) Parainfluenza 4 (PCR) Not Detected (NotDetected) RSV (PCR) Not Detected (NotDetected) Entero/Rhino (PCR) Not Detected (NotDetected) Administered Medications Albuterol (Albut/Ipratrop 3mg/0.5mg Neb 3 Ml Vial) 3 ml NEB QIDR SABINE; Protocol Stop: 06/04/24 14:59 Last Admin: 05/06/24 19:34 Dose: 3 ml Documented By: Admin: 05/06/24 14:11 Dose: 3 ml Documented By: Admin: 05/06/24 10:08 Dose: 3 ml Documented By: Admin: 05/06/24 07:04 Dose: 3 ml Documented By: Admin: 05/05/24 19:17 Dose: 3 ml Documented By: Admin: 05/05/24 15:52 Dose: Not Given Documented By: EMILIANO Lorazepam 1 mg/ Syringe 1 mls @ 2 mls/min IV Q8H PRN PRN Reason: Anxiety/Agitation Stop: 06/04/24 15:11 Last Admin: 05/05/24 21:36 Dose: 2 mls/min Documented By: TREV Ceftriaxone Sodium (Rocephin) 2,000 mg in 50 mls @ 100 mls/hr IV Q24H [facility] Stop: 05/13/24 13:59 Last Infusion: 05/06/24 14:42 Dose: Infused Documented By: Admin: 05/06/24 14:12 Dose: 100 mls/hr Documented By: GINNY Azithromycin 250 mg/ Dextrose 252.5 mls @ 125 mls/hr IV Q24H [facility] Stop: 05/13/24 13:59 Last Infusion: 05/06/24 17:00 Dose: Infused Documented By: Admin: 05/06/24 14:55 Dose: 125 mls/hr Documented By: GINNY Bumetanide 1 mg/ Syringe 4 mls @ 4 mls/min IV BID [facility] Stop: 06/04/24 20:59 Last Admin: 05/06/24 20:30 Dose: 4 mls/min Documented By: Admin: 05/06/24 08:36 Dose: 4 mls/min Documented By: Admin: 05/05/24 21:30 Dose: 4 mls/min Documented By: TREV Insulin Aspart (Insulin Aspart Per Unit Charge) 0 units SC ACHS [facility] Stop: 06/04/24 16:29 Last Admin: 05/06/24 20:06 Dose: Not Given Documented By: Admin: 05/06/24 16:33 Dose: Not Given Documented By: Admin: 05/06/24 13:08 Dose: 6 units Documented By: GINNY Co-signed By: BARBIE Admin: 05/06/24 08:35 Dose: 2 units Documented By: GINNY Co-signed By: TYESHA Admin: 05/05/24 21:31 Dose: 5 units Documented By: TREV Co-signed By: KADY Admin: 05/05/24 18:15 Dose: Not Given Documented By: GINNY Insulin Glargine (Lantus Per Unit Charge) 40 units SQ HS [facility] Stop: 06/04/24 20:59 Last Admin: 05/06/24 20:29 Dose: 40 units Documented By: TREV Co-signed By: MILA Admin: 05/05/24 21:30 Dose: 40 units Documented By: TREV Co-signed By: KADY Levothyroxine Sodium (Levothyroxine Sodium 150 Mcg Tablet) 150 mcg PO DAILYBB [facility] Stop: 06/05/24 06:29 Last Admin: 05/06/24 06:27 Dose: 150 mcg Documented By: TREV Losartan Potassium (Losartan Potassium 50 Mg Tab) 50 mg PO QAM [facility] Stop: 06/05/24 08:59 Last Admin: 05/06/24 08:36 Dose: 50 mg Documented By: GINNY Metoprolol Succinate (Metoprolol Succ 50mg Ext Rel Tab) 200 mg PO DAILY [facility] Stop: 06/05/24 08:59 Last Admin: 05/06/24 08:36 Dose: 200 mg Documented By: GINNY Discontinued Medications Albuterol (Albut/Ipratrop 3mg/0.5mg Neb 3 Ml Vial) Confirm Administered Dose 12 ml .ROUTE .STK-MED ONE Stop: 05/05/24 10:03 Last Admin: 05/05/24 15:46 Dose: 12 ml Documented By: NICOLA Albuterol (Albut/Ipratrop 3mg/0.5mg Neb 3 Ml Vial) Confirm Administered Dose 3 ml .ROUTE .STK-MED ONE Stop: 05/05/24 14:54 Last Admin: 05/05/24 15:02 Dose: 3 ml Documented By: EMILIANO Albuterol (Albut/Ipratrop 3mg/0.5mg Neb 3 Ml Vial) Confirm Administered Dose 3 ml .ROUTE .STK-MED ONE Stop: 05/05/24 09:37 Last Admin: 05/05/24 15:46 Dose: 3 ml Documented By: NICOLA Ceftriaxone Sodium (Rocephin) 2,000 mg in 50 mls @ 100 mls/hr IV NOW STA Stop: 05/05/24 15:29 Last Infusion: 05/05/24 16:22 Dose: Infused Documented By: Admin: 05/05/24 15:52 Dose: 100 mls/hr Documented By: NICOLA Azithromycin 500 mg/ Dextrose 255 mls @ 127.5 mls/hr IV NOW STA Stop: 05/05/24 17:00 Last Infusion: 05/05/24 17:55 Dose: Infused Documented By: Admin: 05/05/24 15:55 Dose: 127.5 mls/hr Documented By: NICOLA Bumetanide 1 mg/ Syringe 4 mls @ 4 mls/min IV ONE ONE Stop: 05/05/24 15:16 Last Admin: 05/05/24 15:55 Dose: 4 mls/min Documented By: NICOLA Insulin Aspart (Insulin Aspart Per Unit Charge) Confirm Administered Dose 12,000 units .ROUTE .STK-MED ONE Stop: 05/05/24 14:35 Last Admin: 05/05/24 15:46 Dose: Not Given Documented By: NICOLA Lorazepam (Lorazepam 1 Mg/1 Ml Syr Ed Inj Use) Confirm Administered Dose 1 mg .ROUTE .STK-MED ONE Stop: 05/05/24 14:07 Last Admin: 05/05/24 15:46 Dose: 1 mg Documented By: NICOLA Losartan Potassium (Losartan Potassium 50 Mg Tab) 50 mg PO NOW STA Stop: 05/05/24 15:03 Last Admin: 05/05/24 15:54 Dose: 50 mg Documented By: NICOLA Metoprolol Succinate (Metoprolol Succ 50mg Ext Rel Tab) 200 mg PO NOW STA Stop: 05/05/24 15:03 Last Admin: 05/05/24 15:54 Dose: 200 mg Documented By: NICOLA Imaging Data Radiologist's Impression: Chest X-Ray 05/05/24 00:00 XR chest 1V portable Carli Logan CLINICAL HISTORY: Dyspnea TECHNIQUE: Single frontal radiograph of the chest was obtained. Comparison: Comparison is made to chest radiograph 01/04/2024 FINDINGS: No lines and tubes are seen. Cardiomegaly is noted. The aortic arch is calcified. There is prominence and cephalization of the vasculature with Rosibel B lines seen. Small left pleural effusion is likely. IMPRESSION: Moderate pulmonary edema, increased from prior exam. Stable cardiomegaly. ACT 112: Negative or not required by law. Electronically signed by: Austin Ritter M.D. 05/05/2024 11:48 AM Discharge Plan Visit Data Chief Complaint: Respiratory Problems Stated Complaint: BREATHING DIFFICULTY ED Provider: Darshan Yoder ED Midlevel Provider: Michelle Rivers Discharge Problem: Acute respiratory failure with hypoxia and hypercapnia, Acute heart failure with reduced ejection fraction (HFrEF, <= 40%), Pneumonia Patient Disposition: Admitted As Inpatient Condition: Good Discharge Instructions Interventions: ED Discharge Assessment Last Done: 05/05/24 19:31 Addendum May 07, 2024 01:39 I was consulted by the Advanced Practice Provider and was substantively involved in the patient's visit.This includes aspects of the HPI, MDM, diagnostic interpretations, and disposition/plan. I discussed the case with the SHAISTA and agree with the findings and plan as documented in SHAISTA Silvestre's note. Discharge Problem: Pneumonia Qualifiers: Pneumonia type: due to unspecified organism Laterality: unspecified laterality Lung location: unspecified part of lung Qualified Code(s): J18.9 - Pneumonia, unspecified organism
[2024-05-05] MEDS: INSULIN ASPART PER UNIT CHARGE SC SCH (18:15)
[2024-05-05 19:39] LABS: Albumin Globulin Ratio 0.9 (0.9-2); Albumin Level 3.9 gm/dl (3.4-5.0); BUN Creatinine Ratio 21.5 (10-20); Bilirubin,Total 0.6 mg/dl (0.2-1.0); Calcium 8.9 mg/dl (8.6-10.3); Creatinine Clr Calc Pharmacy 59.7 ml/min; Est GFR (African American) 69.2 ml/min; Est GFR (Non-African American) 59.7 ml/min; Globulin 4.3 gm/dl (2.5-4.0); Magnesium 2.1 mg/dl (1.7-2.4); Potassium 3.7 mmol/L (3.5-5.1); Total Protein 8.2 gm/dl (6.0-8.3); Troponin I High Sensitivity 23.1 pg/ml (0-14)
[2024-05-05 19:41] LABS: Base Excess VBG 6.2 mEq/L; HCO3 VBG 36 mmol/L; Oxygen Saturation VBG 80.3 %; PCO2 VBG 87 mmHg (38-50); PO2 VBG 54 mmHg; pH VBG 7.23 (7.36-7.41)
[2024-05-05 19:59] LABS: Base Excess VBG 8.8 mEq/L; HCO3 VBG 38 mmol/L; Oxygen Saturation VBG < 60.0 %; PCO2 VBG 78 mmHg (38-50); PO2 VBG 34 mmHg
[2024-05-05 21:02] LABS: Basophils # (auto) 0.05 K/uL (0.00-0.20); Basophils % (auto) 0.6 %; Eosinophils # (auto) 0.09 K/uL (0.00-0.50); Hematocrit (blood only) 36.4 % (37.0-47.0); Hemoglobin 10.9 g/dl (12.0-16.0); Immature Granulocytes # (auto) 0.05 K/uL (0.01-0.20); Immature Granulocytes % (auto) 0.6 %; Lymphocytes # (auto) 1.24 K/uL (1.20-3.40); Lymphocytes % (auto) 13.7 %; Mean Corpuscular Hemoglobin 26.3 pg (25.0-34.0); Mean Corpuscular Hgb Conc 29.9 g/dL (32.0-36.0); Mean Corpuscular Volume 87.7 fL (80.0-100.0); Mean Platelet Volume 10.6 fL (9.4-12.4); Monocytes % (auto) 6.7 %; Neutrophils # (auto) 6.99 K/uL (1.40-6.50); Neutrophils % (auto) 77.4 %; Ovalocytes 1+; Platelet Count 236 K/uL (130-400); RDW Coefficient of Variation 14.6 % (11.5-14.5); RDW Standard Deviation 46.8 fL (36.4-46.3); Red Blood Count 4.15 M/uL (4.20-5.40); White Blood Count 9.02 K/ul (4.8-10.8)
[2024-05-05] MEDS: BUMETANIDE 1 MG in SYRINGE 0 ML IV SCH (21:30)
[2024-05-05] MEDS: LANTUS PER UNIT CHARGE SQ SCH (21:30)
[2024-05-05] MEDS: LORazepam 1 MG in SYRINGE 0.5 ML IV PRN (21:36)
[2024-05-05 23:44] LABS: Base Excess VBG 10.1 mEq/L; HCO3 VBG 39 mmol/L; Oxygen Saturation VBG 87.4 %; PCO2 VBG 70 mmHg (38-50); PO2 VBG 57 mmHg; pH VBG 7.35 (7.36-7.41)
[2024-05-06 03:27] LABS: HCO3 VBG 39 mmol/L; Oxygen Saturation VBG 61.5 %; PCO2 VBG 62 mmHg (38-50); PO2 VBG 32 mmHg; pH VBG 7.41 (7.36-7.41)
[2024-05-06] MEDS: LEVOTHYROXINE SODIUM 150 MCG TABLET PO SCH (06:27)
[2024-05-06 06:38] LABS: Base Excess VBG 9.7 mEq/L; HCO3 VBG 38 mmol/L; Oxygen Saturation VBG 65.8 %; PCO2 VBG 67 mmHg (38-50); PO2 VBG 38 mmHg; pH VBG 7.36 (7.36-7.41)
[2024-05-06 07:09] LABS: Albumin Level 3.4 gm/dl (3.4-5.0); Bilirubin,Total 0.4 mg/dl (0.2-1.0); Calcium 8.4 mg/dl (8.6-10.3); Creatinine Clr Calc Pharmacy 48.1 ml/min; Est GFR (African American) 53.5 ml/min; Est GFR (Non-African American) 46.2 ml/min; Globulin 3.4 gm/dl (2.5-4.0); Magnesium 1.9 mg/dl (1.7-2.4); Potassium 4.3 mmol/L (3.5-5.1); Total Protein 6.8 gm/dl (6.0-8.3)
[2024-05-06 07:17] LABS: Prothrombin Time 10.6 Seconds (9.0-12.0)
[2024-05-06 08:08] LABS: Hematocrit (blood only) 31.3 % (37.0-47.0); Hemoglobin 9.5 g/dl (12.0-16.0); Mean Corpuscular Hemoglobin 26.7 pg (25.0-34.0); Mean Corpuscular Hgb Conc 30.4 g/dL (32.0-36.0); Mean Corpuscular Volume 87.9 fL (80.0-100.0); Mean Platelet Volume 11.9 fL (9.4-12.4); Platelet Count 189 K/uL (130-400); RDW Coefficient of Variation 14.5 % (11.5-14.5); RDW Standard Deviation 46.3 fL (36.4-46.3); Red Blood Count 3.56 M/uL (4.20-5.40); White Blood Count 8.55 K/ul (4.8-10.8)
[2024-05-06 08:12] LABS: Basophils # (auto) 0.04 K/uL (0.00-0.20); Basophils % (auto) 0.5 %; Eosinophils % (auto) 2.3 %; Immature Granulocytes # (auto) 0.02 K/uL (0.01-0.20); Immature Granulocytes % (auto) 0.2 %; Lymphocytes # (auto) 1.08 K/uL (1.20-3.40); Lymphocytes % (auto) 12.6 %; Monocytes # (auto) 0.51 K/uL (0.11-0.59); Neutrophils % (auto) 78.4 %; Platelet Estimate Normal (Normal)
[2024-05-06] MEDS: METOPROLOL SUCC 50MG EXT REL TAB PO SCH (08:36)
[2024-05-06] MEDS: LOSARTAN POTASSIUM 50 MG TAB PO SCH (08:36)
[2024-05-06 11:20] LABS: Base Excess VBG 11.6 mEq/L; HCO3 VBG 40 mmol/L; Oxygen Saturation VBG < 60.0 %; PCO2 VBG 69 mmHg (38-50); PO2 VBG 22 mmHg; pH VBG 7.37 (7.36-7.41)
[2024-05-06] MEDS: cefTRIAXone SODIUM 2,000 MG/50 ML BAG IV SCH (14:12)
[2024-05-06] MEDS: AZITHROMYCIN 250 MG in DEXTROSE 5% 250 ML IV SCH (14:55)
--- NOTE | 2024-05-06 17:18 | Hospitalist Progress Note ---
Date of Service May 06, 2024 Assessment & Plan (1) Acute respiratory failure with hypoxia and hypercapnia: Plan: Acute on chronic systolic CHF / Acute hypoxic respiratory failure -Currently stable on 2L NC but with a pCO2 of 87 and pH of 7.23 on VBG -Likely a combination of RLL pneumonia and acute exacerbation on HFrEF -Patient notes she does use 2L NC prn at home -BP has been stable, symptoms have been progressive over 1week, and no pleuritic chest pain, lower suspicion for PE at this time -Will do the following on admission: -2gm IV ceftriaxone Q24H -500 mg IV azithromycin now followed by 250 mg IV daily -1 mg IV Bumex BID -Bipap with respiratory protocol -Q4h VBG -Incentive spirometry, flutter therapy -QID r DuoNeb treatments -Prn O2 to keep SpO2 between 89-92% (2) Acute heart failure with reduced ejection fraction (HFrEF, <= 40%): Plan: -Patient is significantly volume overloaded on exam with BL LE edema, JVD, and signs of congestive failure on exam -Is supposed to be taking 1mg PO bumex daily, is often non-compliant -Will give 1mg IV bumex now and continue with 1mg IV BID moving forward -Monitor intake/output QSE, daily weights -Monitor daily renal function and electrolytes (3) Pneumonia: Plan: -Appears to have a RLL infiltrate on CXR per review of admission team -CBC is WNL, patient is not septic on exam -No previous hx of resistant organisms -Will give a dose of Ceftriaxone and Azithromycin now, continue q24h dosing moving forward -Will obtain procal and sputum culture w/gram stain on admission -Rest of care per acute respiratory failure plan (4) Hypothyroidism: Plan: -Continue levothyroxine (5) Elevated troponin: Plan: -Initial high sen trop elevated at 23 -Patient has been experiencing progressive chest pressure over the past week -In sinus tachycardia on ECG without acute ST segment or T-wave changes -Likely due to demand from CHF exacerbation and Pneumonia -Will follow 2 hour high sen trop ordered on admission -Continue to monitor on tele (6) Obstructive lung disease: Plan: -See acute hypoxic respiratory failure plan (7) Type 2 diabetes mellitus with obesity: Plan: -Monitor BSG ACHS, goal is 110-160 -Hold Semaglutide -Start 40 units lantus qHS -Start CF of 20 and CR of 10 ACHS -Adjust regimen as needed Plan The patient was discussed with Dr. Lopez at the time of the admission Admission and Anticipated Discharge Date Admission Date: May 05, 2024 Subjective not much change in shortness of breath, says noncomplaint with diuretic regimen due to frequent urination, cough with sputum Physical Exam Physical Exam: Sitting in chair - appears comfortable Lungs - bilateral basal crackles Heart RRR, b/l LE edema and chronic venous stasis changes Skin no rash PA soft, NT, ND, BS+ AAO#3, Non focal Results & Data Results & Data Vital Signs (Past 12 Hours) Vital Signs Temp Pulse Pulse Resp BP Pulse Ox O2 Del Method 05/06/24 15:47 36.9 C 67 17 153/81 H 95 Nasal Cannula 05/06/24 15:44 74 05/06/24 14:11 72 16 93 Nasal Cannula 05/06/24 10:19 36.4 C L 72 17 160/78 H 95 Nasal Cannula 05/06/24 10:10 88 18 90 Nasal Cannula 05/06/24 08:00 Nasal Cannula 05/06/24 07:24 36.4 C L 72 17 162/80 H 97 Nasal Cannula 05/06/24 07:23 72 05/06/24 07:04 71 16 94 Nasal Cannula O2 Flow Rate 05/06/24 15:47 2 05/06/24 15:44 05/06/24 14:11 2 05/06/24 10:19 2 05/06/24 10:10 2 05/06/24 08:00 2 05/06/24 07:24 2 05/06/24 07:23 05/06/24 07:04 2 Review PG Care Time/CCT Total # of Minutes Spent Total Time Spent with Patient: Total time spent is greater than 50% in coordination of care (as documented) at patient's floor/unit and/or counseling patient: Coding Level of Care Code 81541 SUB INP/OBS CARE 2/35MIN Diagnoses Acute respiratory failure with hypoxia and hypercapnia J96.01; J96.02 Acute heart failure with reduced ejection fraction (HFrEF, <= 40%) I50.21 Pneumonia J18.9 Laterality: unspecified laterality Lung location: unspecified part of lung Pneumonia type: due to unspecified organism Hypothyroidism E03.9 Elevated troponin R77.8 Obstructive lung disease J44.9 Type 2 diabetes mellitus with obesity E11.69; E66.9 (3) Pneumonia Laterality: unspecified laterality Lung location: unspecified part of lung Pneumonia type: due to unspecified organism Qualified Code(s): J18.9 - Pneumonia, unspecified organism
[2024-05-07 05:56] LABS: Basophils # (auto) 0.03 K/uL (0.00-0.20); Basophils % (auto) 0.5 %; Eosinophils # (auto) 0.29 K/uL (0.00-0.50); Eosinophils % (auto) 4.7 %; Hematocrit (blood only) 30.6 % (37.0-47.0); Immature Granulocytes # (auto) 0.01 K/uL (0.01-0.20); Immature Granulocytes % (auto) 0.2 %; Lymphocytes # (auto) 1.41 K/uL (1.20-3.40); Mean Corpuscular Hemoglobin 25.9 pg (25.0-34.0); Mean Corpuscular Hgb Conc 29.4 g/dL (32.0-36.0); Mean Corpuscular Volume 88.2 fL (80.0-100.0); Mean Platelet Volume 10.9 fL (9.4-12.4); Monocytes # (auto) 0.59 K/uL (0.11-0.59); Monocytes % (auto) 9.6 %; Neutrophils # (auto) 3.81 K/uL (1.40-6.50); Platelet Count 218 K/uL (130-400); RDW Coefficient of Variation 14.5 % (11.5-14.5); RDW Standard Deviation 46.8 fL (36.4-46.3); Red Blood Count 3.47 M/uL (4.20-5.40); White Blood Count 6.14 K/ul (4.8-10.8)
[2024-05-07 06:17] LABS: Albumin Level 3.1 gm/dl (3.4-5.0); BUN Creatinine Ratio 22.4 (10-20); Bilirubin,Total 0.3 mg/dl (0.2-1.0); Creatinine Clr Calc Pharmacy 47.8 ml/min; Est GFR (Non-African American) 45.7 ml/min; Globulin 3.1 gm/dl (2.5-4.0); Magnesium 1.9 mg/dl (1.7-2.4); Potassium 3.7 mmol/L (3.5-5.1); Total Protein 6.2 gm/dl (6.0-8.3)
[2024-05-07 06:33] LABS: Prothrombin Time 10.9 Seconds (9.0-12.0)
[2024-05-07] MEDS: POTASSIUM CHLORIDE CRTAB 20 MEQ TABCR PO STA (08:25)
[2024-05-07] MEDS: MAGNESIUM SULFATE / D5W 1 GM/100 ML BAG IV ONE (08:26)
--- NOTE | 2024-05-07 13:06 | Hospitalist Progress Note ---
Date of Service May 07, 2024 Assessment & Plan (1) Acute respiratory failure with hypoxia and hypercapnia: Plan: Acute on chronic systolic CHF / Acute hypoxic respiratory failure -Currently stable on 2L NC but with a pCO2 of 87 and pH of 7.23 on VBG -Likely a combination of RLL pneumonia and acute exacerbation on HFrEF -Patient notes she does use 2L NC prn at home -BP has been stable, symptoms have been progressive over 1week, and no pleuritic chest pain, lower suspicion for PE at this time -Will do the following on admission: -2gm IV ceftriaxone Q24H -500 mg IV azithromycin , followed by 250 mg IV daily -1 mg IV Bumex BID -Bipap with respiratory protocol as needed -Incentive spirometry, flutter therapy -QID r DuoNeb treatments -Prn O2 to keep SpO2 between 89-92% (2) Acute heart failure with reduced ejection fraction (HFrEF, <= 40%): Plan: -Patient is significantly volume overloaded on exam with BL LE edema, JVD, and signs of congestive failure on exam - improving -Is supposed to be taking 1mg PO bumex daily, is often non-compliant as she is bothered by frequent urination -continue 1mg IV BID -Monitor intake/output QSE, daily weights -Monitor daily renal function and electrolytes (3) Pneumonia: Plan: -Diarrhea Check C diff (4) Hypothyroidism: Plan: -Continue levothyroxine (5) Elevated troponin: Plan: -Initial high sen trop elevated at 23 / no ACS -Patient has been experiencing progressive chest pressure over the past week - Resolved sinus tachycardia on ECG without acute ST segment or T-wave changes -Likely due to demand from CHF exacerbation -Continue to monitor on tele (6) Obstructive lung disease: Plan: COPD without exacerbation Continue duonebs (7) Type 2 diabetes mellitus with obesity: Plan: -Monitor BSG ACHS, goal is 110-160 -Hold Semaglutide -on 40 units lantus qHS -on CF of 20 and CR of 10 ACHS -Adjust regimen as needed Plan Skin breakdown - remove socks, wound care eval Plan discussed with RN and patient Admission and Anticipated Discharge Date Admission Date: May 05, 2024 Subjective says SOB slightly better, tired, 3 loose stools, no chest pain, fever or chills Physical Exam Physical Exam: Lying in bed - appears comfortable but fatigued Lungs - bilateral basal crackles Heart RRR, b/l LE edema improving and chronic venous stasis changes Skin no rash but weeping noted on legs and skin breakdown front of left just above the ankle PA soft, NT, ND, BS+ AAO#3, Non focal Results & Data Results & Data Vital Signs (Past 12 Hours) Vital Signs Temp Pulse Pulse Resp BP Pulse Ox O2 Del Method 05/07/24 11:23 71 20 91 Nasal Cannula 05/07/24 09:00 Nasal Cannula 05/07/24 07:38 67 05/07/24 07:30 36.8 C 88 16 149/73 H 96 Nasal Cannula 05/07/24 07:29 86 16 96 Nasal Cannula 05/07/24 03:32 36.8 C 78 18 140/69 95 CPAP O2 Flow Rate 05/07/24 11:23 2 05/07/24 09:00 2 05/07/24 07:38 05/07/24 07:30 2 05/07/24 07:29 2 05/07/24 03:32 reviewed PG Care Time/CCT Total # of Minutes Spent Total Time Spent with Patient: Total time spent is greater than 50% in coordination of care (as documented) at patient's floor/unit and/or counseling patient: Coding Level of Care Code 98824 SUB INP/OBS CARE 2/35MIN Diagnoses Acute respiratory failure with hypoxia and hypercapnia J96.01; J96.02 Acute heart failure with reduced ejection fraction (HFrEF, <= 40%) I50.21 Pneumonia J18.9 Laterality: unspecified laterality Lung location: unspecified part of lung Pneumonia type: due to unspecified organism Hypothyroidism E03.9 Elevated troponin R77.8 Obstructive lung disease J44.9 Type 2 diabetes mellitus with obesity E11.69; E66.9 (3) Pneumonia Laterality: unspecified laterality Lung location: unspecified part of lung Pneumonia type: due to unspecified organism Qualified Code(s): J18.9 - Pneumonia, unspecified organism
[2024-05-08] MEDS: CARBOHYDRATES FOR HYPOGLYCEMIA PO PRN (07:33)
[2024-05-08 07:35] LABS: Basophils # (auto) 0.03 K/uL (0.00-0.20); Basophils % (auto) 0.5 %; Eosinophils # (auto) 0.31 K/uL (0.00-0.50); Eosinophils % (auto) 4.7 %; Hematocrit (blood only) 31.2 % (37.0-47.0); Hemoglobin 9.4 g/dl (12.0-16.0); Immature Granulocytes # (auto) 0.02 K/uL (0.01-0.20); Immature Granulocytes % (auto) 0.3 %; Lymphocytes # (auto) 1.35 K/uL (1.20-3.40); Lymphocytes % (auto) 20.4 %; Mean Corpuscular Hemoglobin 26.5 pg (25.0-34.0); Mean Corpuscular Hgb Conc 30.1 g/dL (32.0-36.0); Mean Corpuscular Volume 87.9 fL (80.0-100.0); Mean Platelet Volume 10.6 fL (9.4-12.4); Monocytes # (auto) 0.56 K/uL (0.11-0.59); Monocytes % (auto) 8.5 %; Neutrophils # (auto) 4.35 K/uL (1.40-6.50); Neutrophils % (auto) 65.6 %; Platelet Count 267 K/uL (130-400); RDW Coefficient of Variation 14.1 % (11.5-14.5); RDW Standard Deviation 45.6 fL (36.4-46.3); Red Blood Count 3.55 M/uL (4.20-5.40); White Blood Count 6.62 K/ul (4.8-10.8)
[2024-05-08 07:45] LABS: Prothrombin Time 10.7 Seconds (9.0-12.0)
[2024-05-08 08:02] LABS: Albumin Level 3.3 gm/dl (3.4-5.0); BUN Creatinine Ratio 21.1 (10-20); Bilirubin,Total 0.3 mg/dl (0.2-1.0); Calcium 8.3 mg/dl (8.6-10.3); Creatinine Clr Calc Pharmacy 47.8 ml/min; Est GFR (African American) 54.1 ml/min; Est GFR (Non-African American) 46.7 ml/min; Globulin 3.4 gm/dl (2.5-4.0); Magnesium 1.9 mg/dl (1.7-2.4); Potassium 3.7 mmol/L (3.5-5.1); Total Protein 6.7 gm/dl (6.0-8.3)
--- NOTE | 2024-05-08 09:52 | XRay Report ---
XR chest 1V portable HISTORY: dyspnea COMPARISON: Chest 05/05/2024. FINDINGS: No pneumothorax. Small left pleural effusion and left basilar densities persist. Mild inter stitial pulmonary edema has improved. The heart remains borderline enlarged. No acute fractures. Ther e are low lung volumes. IMPRESSION: 1. Interval improvement in the mild interstitial pulmonary edema. 2. Small left pleural effusion and left basilar densities persist. ACT 112: Negative or not required by law. Electronically signed by: Edgar Meek M.D. 05/08/2024 9:51 AM
--- NOTE | 2024-05-08 11:48 | Electrocardiogram Report ---
Test Reason : Blood Pressure : / mmHG Vent. Rate : 107 BPM Atrial Rate : 107 BPM P-R Int : 172 ms QRS Dur : 080 ms QT Int : 350 ms P-R-T Axes : 054 -23 090 degrees QTc Int : 467 ms Poor data quality, interpretation may be adversely affected Sinus tachycardia Possible Left atrial enlargement Anteroseptal infarct (cited on or before 05-MAY-2024) Abnormal ECG When compared with ECG of 05-JAN-2024 03:54, Normal sinus rhythm is now Present Questionable change in initial forces of Anterior leads ST less depressed in Lateral leads Confirmed by Dash Fontanez ([id number]) on 05/08/2024 11:47:55 AM Referred By: REFERRED SELF Confirmed By:Dash Fontanez
[2024-05-08] MEDS: UMECLIDINIUM/VILANTEROL 62.5/25MCG 7 PUFFS/INHALER INH SCH (12:31)
--- NOTE | 2024-05-08 14:12 | Hospitalist Progress Note ---
Date of Service May 08, 2024 Assessment & Plan (1) Acute respiratory failure with hypoxia and hypercapnia: Plan: Acute on chronic systolic CHF / Acute hypoxic respiratory failure Been receiving IV Bumex 1mg BID but CO2 level is rising - contraction alkalosis repeat CXR shows improved pulm edema but patient continues to c/o SOB Changed to PO Bumex for AM Pulmonary evaluation Cont nebs, added Anoro per past pulm recommendations (2) Acute heart failure with reduced ejection fraction (HFrEF, <= 40%): Plan: see above (3) Pneumonia: Plan: -Diarrhea - resolved (4) Hypothyroidism: Plan: -Continue levothyroxine (5) Elevated troponin: Plan: -Initial high sen trop elevated at 23 / no ACS -Patient has been experiencing progressive chest pressure over the past week - Resolved sinus tachycardia on ECG without acute ST segment or T-wave changes -Likely due to demand from CHF exacerbation -Continue to monitor on tele (6) Obstructive lung disease: Plan: COPD without exacerbation Continue duonebs (7) Type 2 diabetes mellitus with obesity: Plan: -Monitor BSG ACHS, goal is 110-160 -Hold Semaglutide -on 40 units lantus qHS -on CF of 20 and CR of 10 ACHS -Adjust regimen as needed Plan Skin breakdown - remove socks, wound care eval Plan discussed with RN and patient Admission and Anticipated Discharge Date Admission Date: May 05, 2024 Subjective still c/o SOB, says nebs help but only for 2 hours, diarrhea has resolved, tolerating PO Physical Exam Physical Exam: Lying in bed - appears comfortable but fatigued Lungs - bilateral basal crackles improved Heart RRR, b/l LE edema improving and chronic venous stasis changes Skin no rash but weeping noted on legs and skin breakdown front of left just above the ankle / dressing applied PA soft, NT, ND, BS+ AAO#3, Non focal Results & Data Results & Data Vital Signs (Past 12 Hours) Vital Signs Temp Pulse Pulse Resp BP Pulse Ox O2 Del Method 05/08/24 11:29 36.6 C 77 17 178/76 H 93 Nasal Cannula 05/08/24 10:35 74 18 90 Nasal Cannula 05/08/24 08:00 Nasal Cannula 05/08/24 07:26 36.7 C 73 18 195/91 H 100 Nasal Cannula 05/08/24 07:20 78 18 94 Nasal Cannula 05/08/24 07:08 71 05/08/24 05:36 36.4 C L 73 18 176/78 H 97 Nasal Cannula O2 Flow Rate 05/08/24 11:29 2.0 05/08/24 10:35 2 05/08/24 08:00 2 05/08/24 07:26 2.0 05/08/24 07:20 2 05/08/24 07:08 05/08/24 05:36 2.0 PG Care Time/CCT Total # of Minutes Spent Total Time Spent with Patient: Total time spent is greater than 50% in coordination of care (as documented) at patient's floor/unit and/or counseling patient: Coding Level of Care Code 05859 SUB INP/OBS CARE 235MIN Diagnoses Acute respiratory failure with hypoxia and hypercapnia J96.01; J96.02 Acute heart failure with reduced ejection fraction (HFrEF, <= 40%) I50.21 Pneumonia J18.9 Laterality: unspecified laterality Lung location: unspecified part of lung Pneumonia type: due to unspecified organism Hypothyroidism E03.9 Elevated troponin R77.8 Obstructive lung disease J44.9 Type 2 diabetes mellitus with obesity E11.69; E66.9 (3) Pneumonia Laterality: unspecified laterality Lung location: unspecified part of lung Pneumonia type: due to unspecified organism Qualified Code(s): J18.9 - Pneumonia, unspecified organism
--- NOTE | 2024-05-08 15:53 | Pulmonary Consultation ---
Date of Consultation May 08, 2024 Assessment & Plan (1) Pneumonia: Laterality: unspecified laterality Lung location: unspecified part of lung Pneumonia type: due to unspecified organism Qualified Code(s): J 18.9 - Pneumonia, unspecified organism (2) Acute respiratory failure with hypoxia and hypercapnia: (3) CHF (congestive heart failure): Heart failure chronicity: acute on chronic Heart failure type: u nspecified Qualified Code(s): I50.9 - Heart failure, unspecified (4) Pleural effusion: (5) Chronic respiratory failure with hypoxia, on home O2 therapy: (6) Asthma: Plan Chest x-ray 05/08/2024 personally reviewed: Portable film, poor inspiratory effort, blunting of the left costophrenic angle, retrocardiac opacity cannot be ruled out CT chest 06/05/2023 personally reviewed: Loculated left-sided pleural effusion with atelectasis/consolidative process in the left lower lobe Small right-sided pleural effusion Cardiomegaly with pericardial effusion No significant mediastinal lymphadenopathy PFT 07/24/2022 personally reviewed: Nonspecific spirometry, no obstructive lung dysfunction based on LLN, insignificant bronchodilator response, inclining more towards restrictive pattern FVC 1.44 L 42%, FEV1 0.96 L 37%, FEV1/FVC 67% (LLN 65), ERV 21%, DLCO 44% 2D echo 11/04/2023: EF-55%, severe concentric LVH --Acute on chronic hypoxic hypercapnic respiratory failure Multifactorial Hypoxia is likely from HFpEF as well as Consolidative process in the left lower lobe Hypercapnia is most likely from probable ANIBAL/OHS On 2 L oxygen at home Procalcitonin 0.06, Respiratory bio fire negative for everything --History of asthma Complains of childhood asthma as well as strong family history of asthma in case Only using nebulizers at home on an as-needed basis History of thoracentesis on 05/28/2024 with lymphocytic fluid, exudative She did not find any significant change after the thoracentesis as per the previous note Cultures and cytology were negative Plan: In/out: -2.4 L since coming to the hospital Continue with diuretics CT chest without contrast Complete the course of Rocephin and azithromycin for total of 5 days Continue with flutter valve as well as incentive spirometry Recommend checking for aspiration Please note the above document was generated using voice recognition software. It may contain grammatical, syntax or spelling errors.Any formal questions or concerns about the content, text or information contained within the body of this dictation should be directly addressed to the provider for clarification. History of Present Illness Attending Physician: Elinor Mckeon MD History of Present Illness 78-year-old female present to the hospital with complaints of shortness of breath Past medical history: Systolic CHF, hypertension, hypothyroidism, dyslipidemia, diabetes Follows up with Dr. Small as an outpatient, was seen last on 02/11/2024 by him Pulmonary were consulted for shortness of breath At the time of examination patient was not in any respiratory distress She was saturating 97-98 percent on 2 L nasal cannula. She stated she did not find any significant difference when it comes to her breathing. When she is getting the nebulizer treatment she feels better but after that she is still short of breath. Has been diuresing well. Denies any pleuritic chest pain. Denies any difficulty swallowing. Denies any headache, no blurry vision. Appetite is fair Social history: Lifetime non-smoker No pets at home Child history of asthma, strong family history of asthma No history of lung cancer in the family Allergies Allergy/AdvReac Type Severity Reaction Status Date / Time aspirin Allergy Severe HIVES; Verified 04/25/24 15:44 DIFFICULTY BREATHING colchicine Allergy Severe Difficulty Verified 04/25/24 15:44 Breathing Iodinated Contrast Media Allergy Intermediate Rash Verified 04/25/24 15:44 Benzodiazepines Allergy Unknown Unknown Verified 04/25/24 15:44 diltiazem Allergy Unknown UNKNOWN Verified 04/25/24 15:44 REACTION doxycycline Allergy Unknown Unknown Verified 04/25/24 15:44 melon Allergy Unknown Unknown Verified 04/25/24 15:44 nifedipine Allergy Unknown UNKNOWN Verified 04/25/24 15:44 REACTION simvastatin Allergy Unknown UNKNOWN Verified 04/25/24 15:44 REACTION PER PT vancomycin Allergy Unknown UNKNOWN Verified 04/25/24 15:44 REACTION metformin AdvReac Intermediate Diarrhea Verified 04/25/24 15:44 Home Medications Medication Instructions Recorded Confirmed Type Spacer for Inhaler #1 ea 09/04/22 04/25/24 Rx blood sugar diagnostic (OneTouch #100 ea 12/17/22 04/25/24 Rx Verio test strips) pen needle, diabetic 32 gauge x #50 ea 12/17/22 04/25/24 Rx 1/4" (BD Ultra-Fine Micro Pen Needle) albuterol sulfate 90 mcg/actuation 2 puff inhalation Q4H PRN 03/14/23 05/05/24 Rx aerosol inhaler cough/wheeze/shortness of breath #18 grams triamcinolone acetonide 0.1 % 1 applic EXT BID PRN FLARE UPS 04/17/23 05/05/24 History topical cream metoprolol succinate 200 mg 200 mg PO DAILY #90 tabs 07/13/23 05/05/24 Rx tablet,extended release 24 hr losartan 50 mg tablet 50 mg PO QAM #90 tabs 09/03/23 05/05/24 Rx meclizine 12.5 mg tablet 12.5 mg PO TID #21 tabs 01/05/24 05/05/24 Rx ipratropium 0.5 mg-albuterol 3 mg 3 ml inhalation Q6R #90 mL 01/06/24 05/05/24 Rx (2.5 mg base)/3 mL nebulization soln bumetanide 1 mg tablet 1 mg PO DAILY #120 tabs 01/10/24 05/05/24 Rx levothyroxine 150 mcg tablet 150 mcg PO DAILYBB #90 tabs 01/17/24 05/05/24 Rx albuterol sulfate 2.5 mg/0.5 mL 2.5 mg inhalation Q4H PRN 02/07/24 05/05/24 History solution for nebulization shortness of breath or wheezing or cough insulin detemir U-100 100 unit/mL 30 unit subcut QAM 05/08/24 05/08/24 History (3 mL) subcutaneous pen (Levemir FlexPen) Patient History Medical History Abdominal distension Epistaxis Acute on chronic systolic heart failure Nausea & vomiting Near syncope Hydronephrosis, bilateral Acute UTI Hypertension Hypothyroidism COPD (chronic obstructive pulmonary disease) Acute on chronic heart failure with preserved ejection fraction (HFpEF) Renal cyst, left Obstructive pattern present on pulmonary function testing Pleuritic chest pain 4x in the past year CHF exacerbation HX-RECENTLY (HFpEF) heart failure with preserved ejection fraction Acute and chronic respiratory failure with hypoxia Lymphedema Chest pain hx-"more pleuritic pain, not cardiac related" Type 2 diabetes mellitus with peripheral neuropathy Chronic edema Hypomagnesemia Hypokalemia Chronic respiratory failure with hypoxia, on home O2 therapy O2 prn at 2L Elevated serum globulin level Multiple drug allergies Ambulatory dysfunction Wheelchair bound Right knee DJD Lower extremity edema Hx of thyroid cancer History of seizures as a child Financial difficulties Diastolic heart failure HX Hypothyroidism, postablative Acute diastolic (congestive) heart failure HX HTN (hypertension) Pleurisy without effusion have been hospitalized 4x in the past year for this History of ectopic Hx of papillary thyroid carcinoma Gait abnormality Dyslipidemia Vitamin D deficiency Hx of pleurisy HTN (hypertension) Surgical History History of D&C Hx of thyroidectomy Hx of brain surgery 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 during the procedure Hx of section Family History Father Stroke Mother Dementia Diabetes Sister Macular degeneration Brother Macular degeneration Other TIA (transient ischemic attack) Denies family history of Ovarian cancer Prostate cancer Myocardial infarction Breast cancer Colorectal cancer Social History Smoking Status: Never smoker Second Hand Exposure: No; Do You Dip or Chew Tobacco: No; Hx Alcohol Use: No Hx Substance Use: No Preferred Language: Serbian Communication Ability: Effective Visual Impairment: No Limitations Hearing Ability: Normal 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 Beliefs That Will Affect Care: None 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 Feels Safe at Home: Yes Childhood Exposure to Second-Hand Smoke: No Diet: regular Dental Care, Regularly: Yes Physical Activity Frequency: Does not Exercise Seatbelt Use: always Sunscreen Use: No Assistive Devices: Glasses, Oxygen - Continuous, Stair Lift and Wheelchair Review of Systems 2 Review of Systems: All systems reviewed & are unremarkable except as noted in HPI & below Physical Exam 2 Physical Exam: Constitutional: No acute distress HEENT: EOMI, PERRLA Respiratory system: Decreased air entry bilaterally, no wheeze, no rhonchi, positive crackles appreciated bilaterally more on the left side anteriorly and posteriorly CVS: S1-S2 positive, no murmurs or gallops Abdomen: Soft, nontender, nondistended, positive bowel sounds x4 Extremities: +2 pulses bilaterally radialis/ dorsalis pedis, no cyanosis, positive pitting edema bilateral lower extremity Neuro: Awake alert oriented x3 Psych: Normal mood and affect G/U: No [place] Skin: no rashes, warm and dry Lymphatic: no cervical or axillary lymphadenopathy Results & Data Results & Data Vital Signs (Past 12 Hours) Vital Signs Temp Pulse Pulse Resp BP Pulse Ox O2 Del Method 05/08/24 15:19 60 16 97 Nasal Cannula 05/08/24 14:52 36.4 C L 72 17 176/78 H 97 Nasal Cannula 05/08/24 14:23 70 05/08/24 11:29 36.6 C 77 17 178/76 H 93 Nasal Cannula 05/08/24 10:35 74 18 90 Nasal Cannula 05/08/24 08:00 Nasal Cannula 05/08/24 07:26 36.7 C 73 18 195/91 H 100 Nasal Cannula 05/08/24 07:20 78 18 94 Nasal Cannula 05/08/24 07:08 71 05/08/24 05:36 36.4 C L 73 18 176/78 H 97 Nasal Cannula O2 Flow Rate 05/08/24 15:19 2 05/08/24 14:52 2 05/08/24 14:23 05/08/24 11:29 2.0 05/08/24 10:35 2 05/08/24 08:00 2 05/08/24 07:26 2.0 05/08/24 07:20 2 05/08/24 07:08 05/08/24 05:36 2.0 Laboratory Results 05/08/24 06:57 05/08/24 06:57 PG Care Time/CCT Total # of Minutes Spent Total Time Spent with Patient: Total time spent is greater than 50% in coordination of care (as documented) at patient's floor/unit and/or counseling patient: Coding Level of Care Code 86342 INT INP/OBS CARE 3/75MIN Diagnoses Pneumonia J18.9 Laterality: unspecified laterality Lung location: unspecified part of lung Pneumonia type: due to unspecified organism Acute respiratory failure with hypoxia and hypercapnia J96.01; J96.02 CHF (congestive heart failure) I50.9 Heart failure chronicity: acute on chronic Heart failure type: unspecified Pleural effusion J90 Chronic respiratory failure with hypoxia, on home O2 therapy J96.11; Z99.81 Asthma J45.909
[2024-05-08] MEDS: LANTUS PER UNIT CHARGE SQ SCH (16:54)
--- NOTE | 2024-05-08 17:45 | CT Scan Report ---
CT chest diagnostic wo con CT DOSE: 281.31 mGy.cm CLINICAL HISTORY: 78 years-old Female with LLL PNA and effusions. Acute shortness of breath TECHNIQUE: Multiaxial CT images of the chest were performed without contrast. A dose lowering techni que was utilized adhering to the principles of ALARA. COMPARISON: 06/05/2023 FINDINGS: Unremarkable thyroid. Numerous subcentimeter mediastinal and hilar lymph nodes measure up t o 9 mm. Moderate cardiomegaly. Resolution of the previously seen pericardial effusion. Mild coronary artery calcifications. Atherosclerosis of the aorta without aneurysm. Small pleural effusions. Intralobular septal thickening with bronchial wall thickening. Mild subpleur al cystic changes. Mild scattered tree-in-bud nodules are again noted, most pronounced segment left l ower lobe. Linear bibasilar densities favor atelectasis/scarring. No acute process of the imaged uppe r abdomen. Unremarkable soft tissues. IMPRESSION: 1. Cardiomegaly with interstitial pulmonary edema and small pleural effusions. 2. Linear bibasilar densities suggest atelectasis/scarring. 3. Mild tree-in-bud nodules within the superior segment left lower lobe are suggestive of an infectio us or inflammatory bronchiolitis. 4. Stable appearance of the borderline enlarged mediastinal and hilar lymph nodes which are likely re active. ACT 112: Negative or not required by law. Electronically signed by: Dashawn Ramírez M.D. 05/08/2024 5:43 PM
[2024-05-08] MEDS ORDERED: LANTUS PER UNIT CHARGE SQ SCH (21:00)
[2024-05-09 07:26] LABS: BUN Creatinine Ratio 26.7 (10-20); Calcium 8.5 mg/dl (8.6-10.3); Creatinine Clr Calc Pharmacy 52.2 ml/min; Est GFR (African American) 59.7 ml/min; Est GFR (Non-African American) 51.5 ml/min; Potassium 3.9 mmol/L (3.5-5.1)
--- NOTE | 2024-05-09 07:43 | Pulmonology Progress Note ---
Date of Service May 09, 2024 Assessment & Plan (1) Pneumonia: Laterality: unspecified laterality Lung location: unspecified part of lung Pneumonia type: due to unspecified organism Qualified Code(s): J 18.9 - Pneumonia, unspecified organism (2) Acute respiratory failure with hypoxia and hypercapnia: (3) CHF (congestive heart failure): Heart failure chronicity: acute on chronic Heart failure type: u nspecified Qualified Code(s): I50.9 - Heart failure, unspecified (4) Pleural effusion: (5) Chronic respiratory failure with hypoxia, on home O2 therapy: (6) Asthma: Plan Chest x-ray 05/08/2024 personally reviewed: Portable film, poor inspiratory effort, blunting of the left costophrenic angle, retrocardiac opacity cannot be ruled out CT chest 05/08/2024 personally reviewed: Interlobular thickening appreciated bilaterally Tree-in-bud opacities appreciated in the superior segment of the left lower lobe Dependent atelectasis bilateral lower lobes, left greater than right Cardiomegaly Small bilateral pleural effusion Minimal mediastinal and hilar lymphadenopathy PFT 07/24/2022 personally reviewed: Nonspecific spirometry, no obstructive lung dysfunction based on LLN, insignificant bronchodilator response, inclining more towards restrictive pattern FVC 1.44 L 42%, FEV1 0.96 L 37%, FEV1/FVC 67% (LLN 65), ERV 21%, DLCO 44% 2D echo 11/04/2023: EF-55%, severe concentric LVH --Acute on chronic hypoxic hypercapnic respiratory failure Multifactorial Hypoxia is likely from HFpEF as well as Consolidative process in the left lower lobe Hypercapnia is most likely from probable ANIBAL/OHS On 2 L oxygen at home Procalcitonin 0.06, Respiratory bio fire negative for everything --History of asthma Complains of childhood asthma as well as strong family history of asthma in case Only using nebulizers at home on an as-needed basis History of thoracentesis on 05/28/2024 with lymphocytic fluid, exudative She did not find any significant change after the thoracentesis as per the previous note Cultures and cytology were negative Plan: In/out: -2.4 L since coming to the hospital Continue with diuretics Complete the course of Rocephin and azithromycin for total of 5 days Continue with flutter valve as well as incentive spirometry Recommend checking for aspiration Case was discussed with RN at bedside Please note the above document was generated using voice recognition software. It may contain grammatical, syntax or spelling errors.Any formal questions or concerns about the content, text or information contained within the body of this dictation should be directly addressed to the provider for clarification. Admission and Anticipated Discharge Date Admission Date: May 05, 2024 Subjective Patient seen and examined at bedside. No acute distress, no adverse events overnight She was saturating 95% on 2 L nasal cannula When it comes to her breathing she says she is still feeling almost the same. Gets short of breath easily even on minimal exertion Denies any chest pain, no cough. Has been using incentive spirometry Appetite is fair. No nausea or vomiting No headache, no blurry vision Review of Systems 2 Review of Systems: All systems reviewed & are unremarkable except as noted in Subjective Physical Exam 2 Physical Exam: Constitutional: No acute distress HEENT: EOMI, PERRLA Respiratory system: Decreased air entry bilaterally, no wheeze, no rhonchi, positive crackles appreciated bilaterally more on the left side anteriorly and posteriorly CVS: S1-S2 positive, no murmurs or gallops Abdomen: Soft, nontender, nondistended, positive bowel sounds x4 Extremities: +2 pulses bilaterally radialis/ dorsalis pedis, no cyanosis, positive pitting edema bilateral lower extremity Neuro: Awake alert oriented x3 Psych: Normal mood and affect G/U: No Nassar Skin: no rashes, warm and dry Lymphatic: no cervical or axillary lymphadenopathy Results & Data Results & Data Vital Signs (Past 12 Hours) Vital Signs Temp Pulse Pulse Resp BP BP Pulse Ox 05/09/24 07:27 36.8 C 71 18 152/70 H 98 05/09/24 07:07 77 05/09/24 06:56 71 18 96 05/09/24 03:45 36.5 C 68 20 166/72 H 100 05/08/24 23:06 36.7 C 73 16 163/73 H 98 05/08/24 21:49 72 05/08/24 20:00 05/08/24 19:47 71 16 98 O2 Del Method O2 Flow Rate 05/09/24 07:27 Nasal Cannula 2 05/09/24 07:07 05/09/24 06:56 Nasal Cannula 2 05/09/24 03:45 Nasal Cannula 4.0 05/08/24 23:06 Nasal Cannula 2.0 05/08/24 21:49 05/08/24 20:00 Nasal Cannula 2 05/08/24 19:47 Nasal Cannula 2 Laboratory Results 05/08/24 06:57 05/09/24 05:39 PG Care Time/CCT Total # of Minutes Spent Total Time Spent with Patient: Total time spent is greater than 50% in coordination of care (as documented) at patient's floor/unit and/or counseling patient: Coding Level of Care Code 90197 SUB INP/OBS CARE 350MIN Diagnoses Pneumonia J18.9 Laterality: unspecified laterality Lung location: unspecified part of lung Pneumonia type: due to unspecified organism Acute respiratory failure with hypoxia and hypercapnia J96.01; J96.02 CHF (congestive heart failure) I50.9 Heart failure chronicity: acute on chronic Heart failure type: unspecified Pleural effusion J90 Chronic respiratory failure with hypoxia, on home O2 therapy J96.11; Z99.81 Asthma J45.909
[2024-05-09] MEDS: BUMETANIDE 1 MG TAB PO SCH (08:59)
[2024-05-09] MEDS ORDERED: AZITHROMYCIN 250 MG TAB PO SCH (14:00)
[2024-05-09] MEDS ORDERED: MICONAZOLE NITRATE POWDER 85 GM EXT PRN (14:25)
[2024-05-09] MEDS: AZITHROMYCIN 250 MG TAB PO SCH (14:30)
--- NOTE | 2024-05-09 16:33 | Hospitalist Progress Note ---
Date of Service May 09, 2024 Assessment & Plan (1) Acute respiratory failure with hypoxia and hypercapnia: Plan: 78-year-old woman admitted with acute on chronic hypoxic and hypercapnic respiratory failure. Multi factorial including acute on chronic HFpEF, left lower lobe pneumonia hypoxia has improved now on her baseline of 2 L O2. Acute on chronic HFpEF - history of low EF however recently normalized to 50-55% She was diuresed with IV Bumex and transition to oral Bumex 05/09. She has a significant contraction alkalosis -continue losartan, metoprolol, bumetanide -AM BMP (2) Pneumonia: Plan: pneumonia based on chest CT - is being treated with Rocephin and azithromycin - ST consulted, no evidence of aspiration on bedside exam. 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 Admission and Anticipated Discharge Date Admission Date: May 05, 2024 Subjective felt poorly this AM and tired, relates to hypoglycemia for 2nd AM in a row dyspnea unchanged, however, back on baseline level of O2 uses wheelchair chronically, has caregivers Physical Exam 2 Physical Exam: PHYSICAL EXAMINATION Last 24h vital signs reviewed, see documentation in flowsheet General: tired appearing and sitting in chair under several blankets HEENT: Normocephalic, atraumatic, pupils round and equal, sclerae anicteric, no conjunctival injection, moist mucus membranes Lungs: Normal respiratory effort. bilateral coarse crackles, diminished in both bases no wheezing. Heart: Regular rate and rhythm, no murmurs. No JVD sitting upright Abdomen: Soft, nontender, nondistended. Bowel sounds present. Extremities: Warm, dry, well-perfused. 2+ extremity edema. Neuro: Alert and oriented x 4, face symmetric, moves 4 extremities well Psych: Normal affect and behavior Results & Data Results & Data Vital Signs (Past 12 Hours) Vital Signs Temp Pulse Pulse Resp BP BP Pulse Ox 05/09/24 15:24 36.8 C 73 18 173/79 H 95 05/09/24 14:08 72 05/09/24 11:07 36.8 C 71 18 160/75 H 100 05/09/24 10:59 75 18 94 05/09/24 09:43 05/09/24 07:27 36.8 C 71 18 152/70 H 98 05/09/24 07:07 77 05/09/24 06:56 71 18 96 O2 Del Method O2 Flow Rate 05/09/24 15:24 Nasal Cannula 2 05/09/24 14:08 05/09/24 11:07 Nebulizer 05/09/24 10:59 Nasal Cannula 2 05/09/24 09:43 Nasal Cannula 2 05/09/24 07:27 Nasal Cannula 2 05/09/24 07:07 05/09/24 06:56 Nasal Cannula 2 Laboratory Results 05/08/24 06:57 05/09/24 05:39 PG Care Time/CCT Total # of Minutes Spent Total Time Spent with Patient: Total time spent is greater than 50% in coordination of care (as documented) at patient's floor/unit and/or counseling patient: Coding Level of Care Code 80508 SUB INP/OBS CARE 2/35MIN Diagnoses Acute respiratory failure with hypoxia and hypercapnia J96.01; J96.02 Pneumonia J18.9 Laterality: unspecified laterality Lung location: unspecified part of lung Pneumonia type: due to unspecified organism Hypothyroidism E03.9 Elevated troponin R77.8 Obstructive lung disease J44.9 Type 2 diabetes mellitus with obesity E11.69; E66.9 (2) Pneumonia Laterality: unspecified laterality Lung location: unspecified part of lung P neumonia type: due to unspecified organism Qualified Code(s): J18.9 - Pneumonia, unspecified organism
[2024-05-09] MEDS: ENOXAPARIN INJ 40 MG/0.4 ML SYR SQ SCH (17:49)
[2024-05-10 06:32] LABS: Calcium 8.4 mg/dl (8.6-10.3); Creatinine Clr Calc Pharmacy 54.8 ml/min; Est GFR (African American) 63.4 ml/min; Est GFR (Non-African American) 54.7 ml/min; Magnesium 1.9 mg/dl (1.7-2.4); Potassium 3.8 mmol/L (3.5-5.1)
--- NOTE | 2024-05-10 07:15 | Pulmonology Progress Note ---
Date of Service May 10, 2024 Assessment & Plan (1) Pneumonia: Laterality: unspecified laterality Lung location: unspecified part of lung Pneumonia type: due to unspecified organism Qualified Code(s): J 18.9 - Pneumonia, unspecified organism (2) Acute respiratory failure with hypoxia and hypercapnia: (3) CHF (congestive heart failure): Heart failure chronicity: acute on chronic Heart failure type: u nspecified Qualified Code(s): I50.9 - Heart failure, unspecified (4) Pleural effusion: (5) Chronic respiratory failure with hypoxia, on home O2 therapy: (6) Asthma: Plan Chest x-ray 05/08/2024 personally reviewed: Portable film, poor inspiratory effort, blunting of the left costophrenic angle, retrocardiac opacity cannot be ruled out CT chest 05/08/2024 personally reviewed: Interlobular thickening appreciated bilaterally Tree-in-bud opacities appreciated in the superior segment of the left lower lobe Dependent atelectasis bilateral lower lobes, left greater than right Cardiomegaly Small bilateral pleural effusion Minimal mediastinal and hilar lymphadenopathy PFT 07/24/2022 personally reviewed: Nonspecific spirometry, no obstructive lung dysfunction based on LLN, insignificant bronchodilator response, inclining more towards restrictive pattern FVC 1.44 L 42%, FEV1 0.96 L 37%, FEV1/FVC 67% (LLN 65), ERV 21%, DLCO 44% 2D echo 11/04/2023: EF-55%, severe concentric LVH --Acute on chronic hypoxic hypercapnic respiratory failure Multifactorial Hypoxia is likely from HFpEF as well as Consolidative process in the left lower lobe Hypercapnia is most likely from probable ANIBAL/OHS On 2 L oxygen at home Procalcitonin 0.06, Respiratory bio fire negative for everything --History of asthma Complains of childhood asthma as well as strong family history of asthma in case Only using nebulizers at home on an as-needed basis History of thoracentesis on 05/28/2024 with lymphocytic fluid, exudative She did not find any significant change after the thoracentesis as per the previous note Cultures and cytology were negative -- Metabolic alkalosis Likely secondary to diuretic use Plan: In/out: -1.5 L since coming to the hospital Continue with diuretics. Given the bicarb of 42, will give a dose of acetazolamide 250 mg Complete the course of Rocephin and azithromycin for total of 5 days Continue with flutter valve as well as incentive spirometry Patient had aspiration like episode while having her pills while I was in the room. Bedside swallow eval yesterday did not show any signs of aspiration I will order video swallow eval today Case was discussed with RN at bedside Please note the above document was generated using voice recognition software. It may contain grammatical, syntax or spelling errors.Any formal questions or concerns about the content, text or information contained within the body of this dictation should be directly addressed to the provider for clarification. Admission and Anticipated Discharge Date Admission Date: May 05, 2024 Subjective Patient seen and examined at bedside. No acute distress, no adverse events overnight She was saturating 93-94% on 2 L nasal cannula at rest. No significant change compared to yesterday when it comes to her breathing. Still complains of shortness of breath on minimal exertion Coughing up bringing up clear phlegm. Denies any chest pain Patient was taking her pills when I entered the room. She coughed while taking one of her pills and then later stated that she feels well on the pill is stuck behind her throat. Review of Systems 2 Review of Systems: All systems reviewed & are unremarkable except as noted in Subjective Physical Exam 2 Physical Exam: Constitutional: No acute distress HEENT: EOMI, PERRLA Respiratory system: Decreased air entry bilaterally, no wheeze, no rhonchi, positive crackles appreciated bilaterally more on the left side anteriorly and posteriorly CVS: S1-S2 positive, no murmurs or gallops Abdomen: Soft, nontender, nondistended, positive bowel sounds x4 Extremities: +2 pulses bilaterally radialis/ dorsalis pedis, no cyanosis, positive pitting edema bilateral lower extremity Neuro: Awake alert oriented x3 Psych: Normal mood and affect G/U: No Nassar Skin: no rashes, warm and dry Lymphatic: no cervical or axillary lymphadenopathy Results & Data Results & Data Vital Signs (Past 12 Hours) Vital Signs Temp Pulse Resp BP BP Pulse Ox O2 Del Method 05/10/24 04:30 71 157/74 H 94 Nasal Cannula 05/09/24 20:42 36.3 C L 76 18 162/77 H 95 Nasal Cannula 05/09/24 19:45 Nasal Cannula 05/09/24 19:25 73 16 97 Nasal Cannula O2 Flow Rate 05/10/24 04:30 2 05/09/24 20:42 2 05/09/24 19:45 2 05/09/24 19:25 2 Laboratory Results 05/08/24 06:57 05/10/24 05:36 PG Care Time/CCT Total # of Minutes Spent Total Time Spent with Patient: Total time spent is greater than 50% in coordination of care (as documented) at patient's floor/unit and/or counseling patient: Coding Level of Care Code 52110 SUB INP/OBS CARE 2MIN Diagnoses Pneumonia J18.9 Laterality: unspecified laterality Lung location: unspecified part of lung Pneumonia type: due to unspecified organism Acute respiratory failure with hypoxia and hypercapnia J96.01; J96.02 CHF (congestive heart failure) I50.9 Heart failure chronicity: acute on chronic Heart failure type: unspecified Pleural effusion J90 Chronic respiratory failure with hypoxia, on home O2 therapy J96.11; Z99.81 Asthma J45.909
[2024-05-10] MEDS ORDERED: LANTUS PER UNIT CHARGE SQ SCH (09:00)
[2024-05-10] MEDS: acetaZOLAMIDE 250 MG in SYRINGE 0 ML IV ONE (12:34)
--- NOTE | 2024-05-10 14:48 | Hospitalist Progress Note ---
Date of Service May 10, 2024 Assessment & Plan (1) Acute respiratory failure with hypoxia and hypercapnia: Plan: 78-year-old woman admitted with acute on chronic hypoxic and hypercapnic respiratory failure. Multi factorial including acute on chronic HFpEF, left lower lobe pneumonia hypoxia has improved now on her baseline of 2 L O2. Acute on chronic HFpEF - history of low EF however recently normalized to 50-55% She was diuresed with IV Bumex and transitioned to oral Bumex 05/09. She has a significant contraction alkalosis. I think she is still volume overloaded. -continue losartan, metoprolol, bumetanide - Diamox 250 mg IV x 1 ordered by clothes marker this morning, agree with ongoing diuresis -AM BMP, weight (2) Pneumonia: Plan: pneumonia based on chest CT - is being treated with Rocephin and azithromycin - ST consulted, no evidence of aspiration on bedside exam. VFSS ordered for tomorrow (3) Hypothyroidism: Plan: -Continue levothyroxine (4) Elevated troponin: Plan: -Initial high sen trop minimally elevated at 23 / no evidence of ACS -related to myocardial demand ischemia from heart failure exacerbation (5) Obstructive lung disease: Plan: COPD without exacerbation Continue nadia lyons (6) Type 2 diabetes mellitus with obesity: Plan: -Monitor BSG ACHS, goal is 110-160 -Hold Semaglutide -hypoglycemic consecutive two mornings, decreased glargine 05/08, stopped 05/09 -continue premeal/correctional short acting insulin -blood glucose normal this a.m. Plan Diarrhea - resolved Skin breakdown - remove socks, wound care eval DVT ppx - start enoxaparin Dispo - anticipate home with home health Admission and Anticipated Discharge Date Admission Date: May 05, 2024 Subjective no hypoglycemia this a.m. but remains dyspneic more than baseline, feels weak Physical Exam 2 Physical Exam: PHYSICAL EXAMINATION Last 24h vital signs reviewed, see documentation in flowsheet General: sitting in chair by the window looks a little bit better today HEENT: Normocephalic, atraumatic, pupils round and equal, sclerae anicteric, no conjunctival injection, moist mucus membranes Lungs: Normal respiratory effort. bilateral coarse crackles unchanged 05/10, diminished in both bases no wheezing. Heart: Regular rate and rhythm, no murmurs. No JVD sitting upright Abdomen: Soft, nontender, nondistended. Bowel sounds present. Extremities: Warm, dry, well-perfused. 2+ extremity edema unchanged. Neuro: Alert and oriented x 4, face symmetric, moves 4 extremities well Psych: Normal affect and behavior Results & Data Results & Data Vital Signs (Past 12 Hours) Vital Signs Temp Pulse Resp BP BP Pulse Ox O2 Del Method 05/10/24 14:38 76 18 98 Nasal Cannula 05/10/24 11:39 73 18 96 Nasal Cannula 05/10/24 07:51 36.3 C L 73 16 152/74 H 93 Nasal Cannula 05/10/24 07:30 Nasal Cannula 05/10/24 07:28 76 18 95 Nasal Cannula 05/10/24 04:30 71 157/74 H 94 Nasal Cannula O2 Flow Rate 05/10/24 14:38 2 05/10/24 11:39 2 05/10/24 07:51 2 05/10/24 07:30 2 05/10/24 07:28 2 05/10/24 04:30 2 Laboratory Results 05/08/24 06:57 05/10/24 05:36 PG Care Time/CCT Total # of Minutes Spent Total Time Spent with Patient: Total time spent is greater than 50% in coordination of care (as documented) at patient's floor/unit and/or counseling patient: Coding Level of Care Code 20043 SUB INP/OBS CARE 2/35MIN Diagnoses Acute respiratory failure with hypoxia and hypercapnia J96.01; J96.02 Pneumonia J18.9 Laterality: unspecified laterality Lung location: unspecified part of lung Pneumonia type: due to unspecified organism Hypothyroidism E03.9 Elevated troponin R77.8 Obstructive lung disease J44.9 Type 2 diabetes mellitus with obesity E11.69; E66.9 (2) Pneumonia Laterality: unspecified laterality Lung location: unspecified part of lung P neumonia type: due to unspecified organism Qualified Code(s): J18.9 - Pneumonia, unspecified organism
[2024-05-11 08:09] LABS: Calcium 8.7 mg/dl (8.6-10.3); Creatinine Clr Calc Pharmacy 51.2 ml/min; Est GFR (African American) 58.4 ml/min; Est GFR (Non-African American) 50.4 ml/min; Magnesium 2.1 mg/dl (1.7-2.4); Potassium 3.7 mmol/L (3.5-5.1)
[2024-05-11] MEDS: acetaZOLAMIDE 250 MG in SYRINGE 0 ML IV ONE (09:21)
--- NOTE | 2024-05-11 09:26 | Pulmonology Progress Note ---
Date of Service May 11, 2024 Assessment & Plan (1) Pneumonia: Laterality: unspecified laterality Lung location: unspecified part of lung Pneumonia type: due to unspecified organism Qualified Code(s): J 18.9 - Pneumonia, unspecified organism (2) Acute respiratory failure with hypoxia and hypercapnia: (3) CHF (congestive heart failure): Heart failure chronicity: acute on chronic Heart failure type: u nspecified Qualified Code(s): I50.9 - Heart failure, unspecified (4) Pleural effusion: (5) Chronic respiratory failure with hypoxia, on home O2 therapy: (6) Asthma: Plan Chest x-ray 05/08/2024 personally reviewed: Portable film, poor inspiratory effort, blunting of the left costophrenic angle, retrocardiac opacity cannot be ruled out CT chest 05/08/2024 personally reviewed: Interlobular thickening appreciated bilaterally Tree-in-bud opacities appreciated in the superior segment of the left lower lobe Dependent atelectasis bilateral lower lobes, left greater than right Cardiomegaly Small bilateral pleural effusion Minimal mediastinal and hilar lymphadenopathy PFT 07/24/2022 personally reviewed: Nonspecific spirometry, no obstructive lung dysfunction based on LLN, insignificant bronchodilator response, inclining more towards restrictive pattern FVC 1.44 L 42%, FEV1 0.96 L 37%, FEV1/FVC 67% (LLN 65), ERV 21%, DLCO 44% 2D echo 11/04/2023: EF-55%, severe concentric LVH --Acute on chronic hypoxic hypercapnic respiratory failure Multifactorial Hypoxia is likely from HFpEF as well as Consolidative process in the left lower lobe Hypercapnia is most likely from probable ANIBAL/OHS On 2 L oxygen at home Procalcitonin 0.06, Respiratory bio fire negative for everything --History of asthma Complains of childhood asthma as well as strong family history of asthma in case Only using nebulizers at home on an as-needed basis History of thoracentesis on 05/28/2024 with lymphocytic fluid, exudative She did not find any significant change after the thoracentesis as per the previous note Cultures and cytology were negative -- Metabolic alkalosis Likely secondary to diuretic use Plan: In/out: -1.5 L since coming to the hospital. It is not being measured accurately Continue with diuretics Given the bicarb of 41, give another dose of acetazolamide 250 mg today Complete the course of Rocephin and azithromycin for total of 5 days Continue with flutter valve as well as incentive spirometry Case was discussed with RN and primary team No further recommendation from pulmonary perspective, will sign off Please call directly with any questions Please note the above document was generated using voice recognition software. It may contain grammatical, syntax or spelling errors.Any formal questions or concerns about the content, text or information contained within the body of this dictation should be directly addressed to the provider for clarification. Admission and Anticipated Discharge Date Admission Date: May 05, 2024 Subjective Patient seen and examined at bedside. No acute distress, no adverse events overnight She was saturating 97% liters nasal cannula. I went down to 2 L Denied any headache, no nausea, no vomiting When it comes to her breathing she says she is the same. Appetite is fair She states that she is urinating well. Review of Systems 2 Review of Systems: All systems reviewed & are unremarkable except as noted in Subjective Physical Exam 2 Physical Exam: Constitutional: No acute distress HEENT: EOMI, PERRLA Respiratory system: Decreased air entry bilaterally, no wheeze, no rhonchi, positive crackles appreciated bilaterally more on the left side anteriorly and posteriorly CVS: S1-S2 positive, no murmurs or gallops Abdomen: Soft, nontender, nondistended, positive bowel sounds x4 Extremities: +2 pulses bilaterally radialis/ dorsalis pedis, no cyanosis, positive pitting edema bilateral lower extremity Neuro: Awake alert oriented x3 Psych: Normal mood and affect G/U: No [place] Skin: no rashes, warm and dry Lymphatic: no cervical or axillary lymphadenopathy Results & Data Results & Data Vital Signs (Past 12 Hours) Vital Signs Temp Pulse Resp BP BP Pulse Ox O2 Del Method 05/11/24 07:26 36.4 C L 67 16 147/71 H 100 Nasal Cannula 05/11/24 07:03 71 18 98 Nasal Cannula 05/10/24 21:55 36.9 C 70 18 150/73 H 97 Nasal Cannula O2 Flow Rate 05/11/24 07:26 2 05/11/24 07:03 2 05/10/24 21:55 2 Laboratory Results 05/08/24 06:57 05/11/24 07:03 PG Care Time/CCT Total # of Minutes Spent Total Time Spent with Patient: Total time spent is greater than 50% in coordination of care (as documented) at patient's floor/unit and/or counseling patient: Coding Level of Care Code 07429 SUB INP/OBS CARE 2MIN Diagnoses Pneumonia J18.9 Laterality: unspecified laterality Lung location: unspecified part of lung Pneumonia type: due to unspecified organism Acute respiratory failure with hypoxia and hypercapnia J96.01; J96.02 CHF (congestive heart failure) I50.9 Heart failure chronicity: acute on chronic Heart failure type: unspecified Pleural effusion J90 Chronic respiratory failure with hypoxia, on home O2 therapy J96.11; Z99.81 Asthma J45.909
[2024-05-11] MEDS ORDERED: ALBUT/IPRATROP 3MG/0.5MG NEB 3 ML VIAL NEB PRN (10:27)
[2024-05-11] MEDS: acetaZOLAMIDE 250 MG in SYRINGE 0 ML IV STA (10:44)
--- NOTE | 2024-05-11 16:28 | Hospitalist Progress Note ---
Date of Service May 11, 2024 Assessment & Plan (1) Acute respiratory failure with hypoxia and hypercapnia: Plan: 78-year-old woman admitted with acute on chronic hypoxic and hypercapnic respiratory failure. Multi factorial including acute on chronic HFpEF, left lower lobe pneumonia hypoxia has improved now on her baseline of 2 L O2. Acute on chronic HFpEF - history of low EF however recently normalized to 50-55% She was diuresed with IV Bumex and transitioned to oral Bumex 05/09. She has a significant contraction alkalosis. -continue losartan, metoprolol, bumetanide - Diamox 250 mg IV given on 05/10 will repeat dose today. creatinine remained stable at around 1 but BUN has progressively increased therefore may be euvolemic - continues to have coarse crackles on lung exam that have not improved with diuresis, may not be related to pulmonary edema. leg edema relatively unchanged there is also large component of lymphedema which will not respond to diuretics. -AM BMP, weights have not been recorded and I/O are inaccurate (2) Pneumonia: Plan: pneumonia based on chest CT - is being treated with Rocephin and azithromycin - ST consulted, no evidence of aspiration on bedside exam. 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: Plan: -Monitor BSG ACHS, goal is 110-160 -Hold Semaglutide - was recurrently hypoglycemic on small doses of glargine in the hospital therefore discontinued -continue premeal/correctional short acting insulin - BG well-controlled last 24 hours Plan highly likely has underlying ANIBAL and/or OHS, remains hypercarbic Diarrhea - resolved, now constipated started bowel regimen Skin breakdown - remove socks, wound care eval completed, continue wound care DVT ppx - enoxaparin Dispo - anticipate home with home health Admission and Anticipated Discharge Date Admission Date: May 05, 2024 Subjective continues to feel short of breath and fatigued did urinate about twice as often as usual yesterday after the diet Diamox Physical Exam 2 Physical Exam: PHYSICAL EXAMINATION Last 24h vital signs reviewed, see documentation in flowsheet General: still sitting in her chair bundled up as per her habit HEENT: Normocephalic, atraumatic, pupils round and equal, sclerae anicteric, no conjunctival injection, moist mucus membranes Lungs: Normal respiratory effort. bilateral coarse crackles unchanged 05/11, diminished in both bases no wheezing. Heart: Regular rate and rhythm, no murmurs. No JVD sitting upright Abdomen: Soft, nontender, nondistended. Bowel sounds present. Extremities: Warm, dry, well-perfused. 2+ extremity edema feet and ankles unchanged to slightly improved. Neuro: Alert and oriented x 4, face symmetric, moves 4 extremities well Psych: Normal affect and behavior Results & Data Results & Data Vital Signs (Past 12 Hours) Vital Signs Temp Pulse Resp BP BP Pulse Ox O2 Del Method 05/11/24 15:00 36.9 C 61 16 147/70 H 97 Nasal Cannula 05/11/24 07:26 36.4 C L 67 16 147/71 H 100 Nasal Cannula 05/11/24 07:25 Nasal Cannula 05/11/24 07:03 71 18 98 Nasal Cannula O2 Flow Rate 05/11/24 15:00 2 05/11/24 07:26 2 05/11/24 07:25 2 05/11/24 07:03 2 Laboratory Results 05/08/24 06:57 05/11/24 07:03 PG Care Time/CCT Total # of Minutes Spent Total Time Spent with Patient: Total time spent is greater than 50% in coordination of care (as documented) at patient's floor/unit and/or counseling patient: Coding Level of Care Code 58008 SUB INP/OBS CARE 2/35MIN Diagnoses Acute respiratory failure with hypoxia and hypercapnia J96.01; J96.02 Pneumonia J18.9 Laterality: unspecified laterality Lung location: unspecified part of lung Pneumonia type: due to unspecified organism Hypothyroidism E03.9 Elevated troponin R77.8 Obstructive lung disease J44.9 Type 2 diabetes mellitus with obesity E11.69; E66.9 (2) Pneumonia Laterality: unspecified laterality Lung location: unspecified part of lung P neumonia type: due to unspecified organism Qualified Code(s): J18.9 - Pneumonia, unspecified organism
[2024-05-11] MEDS: POLYETHYLENE (MIRALAX) 17 GM PACK PO SCH (16:38)
[2024-05-11] MEDS: SENNA 8.6 MG TAB PO PRN (17:36)
[2024-05-12 08:49] LABS: BUN Creatinine Ratio 31.8 (10-20); Calcium 8.7 mg/dl (8.6-10.3); Creatinine Clr Calc Pharmacy 49.9 ml/min; Est GFR (African American) 56.5 ml/min; Est GFR (Non-African American) 48.7 ml/min; Potassium 3.6 mmol/L (3.5-5.1)
--- NOTE | 2024-05-12 19:11 | Discharge Summary ---
Discharge Summary Date of Service May 12, 2024 Principal Dx & Hospital Course #1 = Principal Diagnosis (1) Acute respiratory failure with hypoxia and hypercapnia: 78-year-old woman admitted with acute on chronic hypoxic and hypercapnic respiratory failure. Multi factorial including acute on chronic HFpEF, left lower lobe pneumonia she was treated with BiPAP early in hospital stay, required 6 L oxygen initially. This improved rapidly with diuresis hypoxia has improved now on her baseline of 2 L O2. remains dyspneic but this seems to be at or near her baseline Acute on chronic HFpEF - history of low EF however recently normalized to 50-55% She was diuresed with IV Bumex and transitioned to oral Bumex 05/09. bicarbonate remained high in 40s probably more hypoventilatory related to untreated ANIBAL/OHS versus contraction alkalosis, continued diuresis to euvolemia with several doses of Diamox. -continue losartan, metoprolol, bumetanide - continues to have scattered coarse crackles on lung exam that did not resolve with diuresis, may be more related to atelectasis and hypoventilation. leg edema improved though remains significant there is also large component of lymphedema which will not respond to diuretics. -AM BMP, weights have not been recorded and I/O are inaccurate - discussed with Carolee Dasilva with heart failure program, she will arrange follow-up in clinic. Carli also has an appointment with her finisher card tender Dr. Mendez on May 25 manager poker also consulted this admission, recommended evaluation for ANIBAL/OHS which she continues to refuse, recommended treatment for pneumonia based on chest CT findings as below, continue bronchodilators and follow-up with Dr. Small per routine (2) Pneumonia: pneumonia based on chest CT - treated with Rocephin and azithromycin - ST consulted, no evidence of aspiration on bedside exam. VFSS could not be done because she reports of barium allergy (3) Hypothyroidism: -Continue levothyroxine (4) Elevated troponin: -Initial high sen trop minimally elevated at 23 / no evidence of ACS -related to myocardial demand ischemia from heart failure exacerbation (5) Obstructive lung disease: COPD without exacerbation Continue nadia lyons (6) Type 2 diabetes mellitus with obesity: notably was recurrently hypoglycemic on relatively low doses of glargine in hospital, glargine was discontinued and blood glucose was well-controlled on hospital diet and occasional premeal insulin resume Levemir at home Plan highly likely has underlying ANIBAL and/or OHS, remains hypercarbic, has consistently declined nocturnal noninvasive ventilation Diarrhea - resolved, now constipated started bowel regimen Skin breakdown - remove socks, wound care eval completed, continue wound care Dispo - discussed custodial stay however she strongly prefers to return home. Discharged home with home health Notes For Next Care Provider palliative care clinic follow-up or hospice referral would be helpful if she were to agree to this in the future has consistently refused evaluation for sleep apnea there are concerns about cognitive decline, chronic hypercarbia could be playing a role here Medication Changes From Visit no changes made to diuretics, frequently is noncompliant at home because urination is difficult for her 4 more days of azithromycin, completed 7 days of ceftriaxone in the hospital Admission HPI Per Admitting Provider Patient was seen and admitted during a period of EMR downtime. Carli is a a 78-year-old female with PMH of HFrEF, HTN, cardiomyopathy, COPD, hypothyroidism, dyslipidemia, diabetes, asthma, and arthritis who presented to the [facility] ED on 05/05/24 with a chief complaint of SOB x one week. She was found to be hypoxic on arrival with SpO2 in the mid 80s. Labs were significant for a VBG pH 7.23, pCO2 of 87, pO2 of 54, with full respiratory biofire negative, and CBC WNL. CMP, high sen trop, BNP were in process at the time of the admission. Chest Xray was review by myself and Dr. Lopez as official reads have been delayed due to IT downtime, it appears to show a RLL pneumonia with signs of interstitial pulmonary edema and small, BL pleural effusions. Patient was sitting in bed in mild distress due to anxiety and respiratory distress. States that she lives at home, alone. Started to develop progressive SOB, chest pressure, and non-productive cough approximately one week ago. Has been missing doses of her home Bumex as she forgets to take it. No recent fever, hemoptysis, pleuritic chest pain, abd pain, nausea/vomiting, diarrhea, recent trauma. Is wheelchair bound due to complications of previous spinal surgery. Feels her BL LE lymphedema has been getting worse. Discussion was held between the patient and her Daughter (who was on video call) regarding the need for Bipap due to her significantly elevated pCO2. Patient expressed concern that she will not be able to tolerate Bipap. Discussed next options would be intubation or comfort measures if she were to continue to decline clinically. Patient clearly expressed that she would NOT want CPR or intubation if she were to clinically decline. Her daughter was in agreement with her Choices. Plan is to attempt Bipap with prn Ativan for anxiety. If she fails Bipap and continues to decline we will convert to comfort measures. Discharge Exam PHYSICAL EXAMINATION Last 24h vital signs reviewed, see documentation in flowsheet General: still sitting in her chair bundled up as per her habit HEENT: Normocephalic, atraumatic, pupils round and equal, sclerae anicteric, no conjunctival injection, moist mucus membranes Lungs: Normal respiratory effort. bilateral coarse crackles unchanged 05/11, diminished in both bases no wheezing. Heart: Regular rate and rhythm, no murmurs. No JVD sitting upright Abdomen: Soft, nontender, nondistended. Bowel sounds present. Extremities: Warm, dry, well-perfused. 2+ extremity edema feet and ankles unchanged to slightly improved. Neuro: Alert and oriented x 4, face symmetric, moves 4 extremities well Psych: Normal affect and behavior Updated Medication List Medication Instructions Recorded Confirmed Type Spacer for Inhaler #1 ea 09/04/22 04/25/24 Rx blood sugar diagnostic (OneTouch #100 ea 12/17/22 04/25/24 Rx Verio test strips) pen needle, diabetic 32 gauge x #50 ea 12/17/22 04/25/24 Rx 1/4" (BD Ultra-Fine Micro Pen Needle) albuterol sulfate 90 mcg/actuation 2 puff inhalation Q4H PRN 03/14/23 05/05/24 Rx aerosol inhaler cough/wheeze/shortness of breath #18 grams triamcinolone acetonide 0.1 % 1 applic EXT BID PRN FLARE UPS 04/17/23 05/05/24 History topical cream metoprolol succinate 200 mg 200 mg PO DAILY #90 tabs 07/13/23 05/05/24 Rx tablet,extended release 24 hr losartan 50 mg tablet 50 mg PO QAM #90 tabs 09/03/23 05/05/24 Rx meclizine 12.5 mg tablet 12.5 mg PO TID #21 tabs 01/05/24 05/05/24 Rx bumetanide 1 mg tablet 1 mg PO DAILY #120 tabs 01/10/24 05/05/24 Rx levothyroxine 150 mcg tablet 150 mcg PO DAILYBB #90 tabs 01/17/24 05/05/24 Rx albuterol sulfate 2.5 mg/0.5 mL 2.5 mg inhalation Q4H PRN 02/07/24 05/05/24 History solution for nebulization shortness of breath or wheezing or cough insulin detemir U-100 100 unit/mL 30 unit subcut QAM 05/08/24 05/08/24 History (3 mL) subcutaneous pen (Levemir FlexPen) ipratropium 0.5 mg-albuterol 3 mg 3 ml inhalation Q6R #90 mL 05/11/24 Rx (2.5 mg base)/3 mL nebulization soln azithromycin 250 mg tablet 250 mg PO DAILY #4 tabs 05/12/24 Rx Hospital Stay Data Consultations 05/08/24 11:40 Consult Pulmonology Routine Diagnostic Imagining Performed 05/08/24 16:07 CT chest diagnostic wo con Routine Chest X-Ray 05/05/24 00:00 XR chest 1V portable Carli Logan CLINICAL HISTORY: Dyspnea TECHNIQUE: Single frontal radiograph of the chest was obtained. Comparison: Comparison is made to chest radiograph 01/04/2024 FINDINGS: No lines and tubes are seen. Cardiomegaly is noted. The aortic arch is calcified. There is prominence and cephalization of the vasculature with Rosibel B lines seen. Small left pleural effusion is likely. IMPRESSION: Moderate pulmonary edema, increased from prior exam. Stable cardiomegaly. ACT 112: Negative or not required by law. Electronically signed by: Austin Ritter M.D. 05/05/2024 11:48 AM Chest X-Ray 05/08/24 09:06 XR chest 1V portable HISTORY: dyspnea COMPARISON: Chest 05/05/2024. FINDINGS: No pneumothorax. Small left pleural effusion and left basilar densities persist. Mild interstitial pulmonary edema has improved. The heart remains borderline enlarged. No acute fractures. There are low lung volumes. IMPRESSION: 1. Interval improvement in the mild interstitial pulmonary edema. 2. Small left pleural effusion and left basilar densities persist. ACT 112: Negative or not required by law. Electronically signed by: Edgar Meek M.D. 05/08/2024 9:[address] 05/08/24 16:07 CT chest diagnostic wo con CT DOSE: 281.31 mGy.cm CLINICAL HISTORY: 78 years-old Female with LLL PNA and effusions. Acute shortness of breath TECHNIQUE: Multiaxial CT images of the chest were performed without contrast. A dose lowering technique was utilized adhering to the principles of ALARA. COMPARISON: 06/05/2023 FINDINGS: Unremarkable thyroid. Numerous subcentimeter mediastinal and hilar lymph nodes measure up to 9 mm. Moderate cardiomegaly. Resolution of the previously seen pericardial effusion. Mild coronary artery calcifications. Atherosclerosis of the aorta without aneurysm. Small pleural effusions. Intralobular septal thickening with bronchial wall thickening. Mild subpleural cystic changes. Mild scattered tree-in-bud nodules are again noted, most pronounced segment left lower lobe. Linear bibasilar densities favor atelectasis/scarring. No acute process of the imaged upper abdomen. Unremarkable soft tissues. IMPRESSION: 1. Cardiomegaly with interstitial pulmonary edema and small pleural effusions. 2. Linear bibasilar densities suggest atelectasis/scarring. 3. Mild tree-in-bud nodules within the superior segment left lower lobe are suggestive of an infectious or inflammatory bronchiolitis. 4. Stable appearance of the borderline enlarged mediastinal and hilar lymph nodes which are likely reactive. ACT 112: Negative or not required by law. Electronically signed by: Dashawn Ramírez M.D. 05/08/2024 5:43 PM 05/08/24 06:57 05/12/24 07:17 Pending Results Patient Have Any Pending Studies at Discharge: No Discharge Instructions Given to Patient (Per Discharging Provider) You were treated for respiratory failure caused by heart failure exacerbation and pneumonia -continue your diuretics daily, follow salt restriction and fluid restriction -follow up with Dr. Mendez as scheduled 05/25 You were treated for pneumonia -finish the course of antibiotics - you finished a 7-day course of one of the antibiotics this afternoon, take the other antibiotic (azithromycin) starting tomorrow AM for four more doses We recommend testing for sleep apnea. If you're willing to consider this, a referral can be made to sleep medicine Consider following up in palliative care clinic or hospice to help with symptom control. If you're willing to do this, a referral can be made. It was a pleasure taking care of you in the hospital Rosalind Turcios MD Total Time Total Time Spent Total Time Spent (In Minutes): I personally spent: 40 minutes today on clinical care activities including: reviewing chart notes and vital signs reviewing labs examining and counseling the patient discussion with outpatient provider: Heart failure program writing orders, discharge instructions documentation Coding Level of Care Code 37902 INP/OBS DISCH >30 MIN Diagnoses Acute respiratory failure with hypoxia and hypercapnia J96.01; J96.02 Pneumonia J18.9 Laterality: unspecified laterality Lung location: unspecified part of lung Pneumonia type: due to unspecified organism Hypothyroidism E03.9 Elevated troponin R77.8 Obstructive lung disease J44.9 Type 2 diabetes mellitus with obesity E11.69; E66.9
== END 2024-05-12 15:54 | disposition home health service (06) | DRG 193 ==
LOC: ED 13:37 → 2S 14:36 → SUATTDRO 14:36 → 2S 19:31 → 3N 05-09 17:29
DX: J18.9 Pneumonia, unspecified organism; J96.22 Acute and chronic respiratory failure with hypercapnia; J44.9 Chronic obstructive pulmonary disease, unspecified; E66.9 Obesity, unspecified; Z79.85 Long-term (current) use of injectable non-insulin antidiabetic drugs; Z91.041 Radiographic dye allergy status; I31.39 Other pericardial effusion (noninflammatory); E87.3 Alkalosis; J45.909 Unspecified asthma, uncomplicated; E11.9 Type 2 diabetes mellitus without complications; Y92.019 Unspecified place in single-family (private) house as the place of occurrence of the external cause; I42.9 Cardiomyopathy, unspecified; I50.23 Acute on chronic systolic (congestive) heart failure; I24.89 Other forms of acute ischemic heart disease; Z68.29 Body mass index [BMI] 29.0-29.9, adult; H91.92 Unspecified hearing loss, left ear; J96.21 Acute and chronic respiratory failure with hypoxia; Z88.6 Allergy status to analgesic agent; E03.9 Hypothyroidism, unspecified; T50.2X5A Adverse effect of carbonic-anhydrase inhibitors, benzothiadiazides and other diuretics, initial encounter; J90 Pleural effusion, not elsewhere classified; J98.11 Atelectasis

== ENCOUNTER 2024-06-09 12:08 | Inpatient (IN) ==
--- NOTE | 2024-06-09 12:57 | Emergency Department Note ---
Impression & Plan Acute on chronic respiratory failure with hypoxia and hypercapnia, Acute heart failure with preserved ejection fraction ED Provider Note Provider: Moiz Mason MD DATE OF SERVICE: 06/09/2024 CHIEF COMPLAINT: Shortness of breath and swelling HISTORY OF PRESENT ILLNESS: Patient is a 78-year-old female history of chronic respiratory failure on 2 L of oxygen, history of heart failure in the past, type 2 diabetes, pneumonia, and lymphedema presenting here today after calling [phone] worsening breathing issues. States over the past week she has had gradual decline prickly worse today with breathing. States today felt like there is an elephant on her chest as well but denies abdominal pain or nausea or vomiting. Increased swelling of her lower legs bilaterally. Is post to be on diuretics at home but states she cannot take these as she is unable to transfer from wheelchair to the bathroom enough when she has to go to the bathroom so frequently on a diuretic. Has been hospitalized multiple times in the past for this. Lives by her self at home but denies any trauma. Does have some caretakers that help occasionally. PAST MEDICAL HISTORY: As noted above MEDICATIONS: Lives at home, normally on 2 L of oxygen. SOCIAL HISTORY: Non-smoker PHYSICAL EXAM: GENERAL: alert and oriented in no acute distress on stretcher Head: normocephalic and atraumatic EYES: No injection, discharge or icterus. NECK: Trachea midline. ENT: Mucous membranes pink and moist. LUNGS: Airway patent. No retractions. Breath sounds fine crackles throughout and diminished HEART: Mildly tachycardic regular rate and rhythm. No chest wall tenderness ABDOMEN: Soft and non-tender, without guarding or rebound. SKIN: Acyanotic, warm, dry, without rashes EXTREMITIES: Without tenderness with 2-3+ bilateral lower extremity edema and slight bilateral erythema. No weeping wounds noted. Some second and fourth left toe contusion noted. NEUROLOGICAL: No focal deficits. No aphasia. No facial droop or slurred speech. EK bpm sinus tachycardia. No PVC or PAC. No acute ST segment elevation or depression with QTc of 443 CONTINUOUS CARDIAC MONITORING: was ordered and showed a heart rate of 90s-120s bpm in sinus tachycardia - normal sinus rhythm Patient's laboratory studies and imaging reviewed. Differential includes Reactive airway disease, pneumonia, pneumothorax, COPD, CHF, infections, cardiac ischemia, pulmonary embolism, musculoskeletal, gastrointestinal, as well as other pathologies. IMPRESSION/MEDICAL DECISION MAKING: No syncope but does report shortness of breath, leg swelling, and central chest pressure. Hospitalized multiple times this year reviewed recent discharge summary from May 12 indicating she required diuresis and has some lymphedema and possible pneumonia. History of obstructive lung disease as well. Did not sound particularly wheezy but does seem fluid overloaded here. Not taking diuretics at home may be contributing. Hypertensive here. No fevers reported. X-ray procalcitonin and blood work ordered. Does not appear encephalopathic at this time. Troponin EKG obtained but doubt acute ACS at this time. Question maybe a bit of demand from fluid. Patient did require significant assistance to transfer from EMS litter to our stretcher. Lives at home alone with some help by her report. Blood work here without significant leukocytosis or elevated procalcitonin lower suspicion for infection. Hemoglobin slightly improved today at 11.1. No severe electrolyte abnormalities or evidence of acute renal dysfunction today. No significant transaminitis. Troponin just slightly elevated but stable at 24 today compared to previous. BNP significantly elevated and fluid overload likely contributing given value of 788. Did receive an IV dose of Bumex here to help with diuresis and PureWick placed. No significant evidence of UTI and negative respiratory viral panel. Patient on 4 to 6 L of oxygen. Still hypertensive could be contributing to some degree as well. Patient somewhat anxious at times. Discussed with her possible use of BiPAP which she wished decline here at this point. Will continue to monitor her work of breathing with low threshold for possible BiPAP. Discussed with the hospitalist team. They did trial her on BiPAP which she did not tolerate. DIAGNOSIS: Acute on chronic hypoxic respiratory failure, fluid overload, hypertension DISPOSITION: Hospitalist will evaluate Patient was agreeable with this plan. Critical Care I have personally spent 32 minutes of critical care time in the direct management of this patient. This includes bedside care, interpretation of diagnostic studies, and testing, discussion with consultants, patient, and other required patient management activities. These 32 minutes is in excess of all separately billable procedures. Past Med/Surg History Problem List (Updated 06/09/24 @ 16:18 by Moiz Mason M.D.) Foot contusion Acute heart failure with preserved ejection fraction (Acute) Acute on chronic respiratory failure with hypoxia and hypercapnia (Acute) Heart failure with improved ejection fraction (HFimpEF) Pneumonia (Acute) Acute heart failure with reduced ejection fraction (HFrEF, <= 40%) (Acute) Vertigo Sensorineural hearing loss (SNHL) of left ear with restricted hearing of right ear Type 2 diabetes mellitus with obesity Benign positional vertigo Acute and chronic respiratory failure (Acute) HFrEF (heart failure with reduced ejection fraction) Anemia Acute on chronic heart failure with preserved ejection fraction (HFpEF) Hypercapnic respiratory failure, chronic Pleural effusion (Acute) CHF (congestive heart failure) (Acute) Pericardial effusion Pulmonary hypertension Atypical nevus of thoracic region Cardiomyopathy Contracture of right knee Impacted fracture of right hip (~04/19/23) Proteinuria Bronchiectasis Chronic respiratory failure with hypoxia, on home O2 therapy O2 prn at 2L Hypothyroidism Obstructive lung disease Asthma Migraine headache Arthritis Venous stasis dermatitis of both lower extremities Nephrotic range proteinuria Shortness of breath Acute maculopapular rash Dyslipidemia Obstructive pattern present on pulmonary function testing Ambulatory dysfunction Diastolic heart failure HX Medical History (Updated 06/09/24 @ 16:18 by Moiz Mason M.D.) COPD (chronic obstructive pulmonary disease) Hypertension Diabetes mellitus with albuminuria Abdominal distension Epistaxis Acute on chronic systolic heart failure Near syncope Hydronephrosis, bilateral Acute UTI Renal cyst, left Pleuritic chest pain 4x in the past year (HFpEF) heart failure with preserved ejection fraction Acute and chronic respiratory failure with hypoxia Lymphedema Chest pain hx-"more pleuritic pain, not cardiac related" Type 2 diabetes mellitus with peripheral neuropathy Chronic edema Hypomagnesemia Hypokalemia Elevated serum globulin level Multiple drug allergies Wheelchair bound Right knee DJD Lower extremity edema Hx of thyroid cancer History of seizures as a child Financial difficulties Hypothyroidism, postablative Pleurisy without effusion have been hospitalized 4x in the past year for this History of ectopic Hx of papillary thyroid carcinoma Gait abnormality Vitamin D deficiency Hx of pleurisy Surgical History History of D&C Hx of thyroidectomy Hx of brain surgery 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 during the procedure Hx of section Family History Father Stroke Mother Dementia Diabetes Sister Macular degeneration Brother Macular degeneration Other TIA (transient ischemic attack) Denies family history of Ovarian cancer Prostate cancer Myocardial infarction Breast cancer Colorectal cancer Social History Smoking Status: Never smoker Second Hand Exposure: No; Do You Dip or Chew Tobacco: No; Hx Alcohol Use: No Hx Substance Use: No Preferred Language: Telugu Communication Ability: Effective Visual Impairment: No Limitations Hearing Ability: Normal Tactical Air Control Party Manager Required: Yes Beliefs That Will Affect Care: None 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 Feels Safe at Home: Yes Childhood Exposure to Second-Hand Smoke: No Diet: regular Dental Care, Regularly: Yes Physical Activity Frequency: Does not Exercise Seatbelt Use: always Sunscreen Use: No Assistive Devices: Glasses, Oxygen - Continuous, Stair Lift and Wheelchair Allergies Allergies Allergy/AdvReac Type Severity Reaction Status Date / Time aspirin Allergy Severe HIVES; Verified 05/25/24 15:53 DIFFICULTY BREATHING colchicine Allergy Severe Difficulty Verified 05/25/24 15:53 Breathing Iodinated Contrast Media Allergy Intermediate Rash Verified 05/25/24 15:53 Benzodiazepines Allergy Unknown Unknown Verified 05/25/24 15:53 diltiazem Allergy Unknown UNKNOWN Verified 05/25/24 15:53 REACTION doxycycline Allergy Unknown Unknown Verified 05/25/24 15:53 melon Allergy Unknown Unknown Verified 05/25/24 15:53 nifedipine Allergy Unknown UNKNOWN Verified 05/25/24 15:53 REACTION simvastatin Allergy Unknown UNKNOWN Verified 05/25/24 15:53 REACTION PER PT vancomycin Allergy Unknown UNKNOWN Verified 05/25/24 15:53 REACTION metformin AdvReac Intermediate Diarrhea Verified 05/25/24 15:53 Home Meds Home Medications Medication Instructions Recorded Confirmed triamcinolone acetonide 0.1 % 1 applic EXT BID PRN FLARE UPS 04/17/23 05/25/24 topical cream albuterol sulfate 2.5 mg/0.5 mL 2.5 mg inhalation Q4H PRN 02/07/24 05/25/24 solution for nebulization shortness of breath or wheezing or cough insulin detemir U-100 100 unit/mL 30 unit subcut QAM 05/08/24 05/25/24 (3 mL) subcutaneous pen (Levemir FlexPen) Previous Rx's Medication Instructions Recorded Spacer for Inhaler #1 ea 09/04/22 blood sugar diagnostic (OneTouch #100 ea 12/17/22 Verio test strips) pen needle, diabetic 32 gauge x #50 ea 12/17/22 1/" (BD Ultra-Fine Micro Pen Needle) albuterol sulfate 90 mcg/actuation 2 puff inhalation Q4H PRN 03/14/23 aerosol inhaler cough/wheeze/shortness of breath #18 grams metoprolol succinate 200 mg 200 mg PO DAILY #90 tabs 07/13/23 tablet,extended release 24 hr losartan 50 mg tablet 50 mg PO QAM #90 tabs 09/03/23 meclizine 12.5 mg tablet 12.5 mg PO TID #21 tabs 01/05/24 bumetanide 1 mg tablet 1 mg PO DAILY #120 tabs 01/10/24 levothyroxine 150 mcg tablet 150 mcg PO DAILYBB #90 tabs 01/17/24 ipratropium 0.5 mg-albuterol 3 mg 3 ml inhalation Q6R #90 mL 05/11/24 (2.5 mg base)/3 mL nebulization soln azithromycin 250 mg tablet 250 mg PO DAILY #4 tabs 05/12/24 Results & Data (ED) Vital Signs Vital Signs - 24 hr 06/09/24 11:58 06/09/24 12:21 06/09/24 12:23 Temperature 36.4 C Temperature Source Oral Pulse Rate 106 H 105 H 104 H Pulse Rate from SpO2 Sensor 105 H Pulse Rhythm Regular Pulse Strength Normal Respiratory Rate 24 28 H Respiratory Effort / Characteristics Spontaneous Short of Breath Respiratory Depth Shallow Respiratory Pattern Regular Tachypnea Blood Pressure 195/105 H Blood Pressure Mean 135 Blood Pressure Position Sitting Pulse Oximetry 86 L 96 Oxygen Delivery Method Nasal Cannula Nasal Cannula Oxygen Flow Rate 4 4 Fraction of Inspired Oxygen Sepsis Recent Fever Within 48 Hours Yes Sepsis New/Unexplained Change in Mental Status N/A Sepsis Action Taken by Nursing No Action Required 06/09/24 12:24 06/09/24 12:26 06/09/24 12:39 Temperature Temperature Source Pulse Rate 103 H Pulse Rate from SpO2 Sensor 104 H Pulse Rhythm Pulse Strength Respiratory Rate 27 H Respiratory Effort / Characteristics Respiratory Depth Respiratory Pattern Blood Pressure 195/105 H Blood Pressure Mean 157 Blood Pressure Position Pulse Oximetry 97 Oxygen Delivery Method Nasal Cannula Nasal Cannula Oxygen Flow Rate 4 4 Fraction of Inspired Oxygen Sepsis Recent Fever Within 48 Hours Sepsis New/Unexplained Change in Mental Status Sepsis Action Taken by Nursing 06/09/24 12:39 06/09/24 12:45 06/09/24 12:49 Temperature Temperature Source Pulse Rate 105 H 110 H Pulse Rate from SpO2 Sensor 105 H Pulse Rhythm Regular Pulse Strength Respiratory Rate 23 22 Respiratory Effort / Characteristics Spontaneous Short of Breath SOB on Exertion Tripoding Respiratory Depth Shallow Respiratory Pattern Tachypnea Blood Pressure Blood Pressure Mean Blood Pressure Position Pulse Oximetry 98 94 Oxygen Delivery Method Nasal Cannula Nasal Cannula Nasal Cannula Oxygen Flow Rate 4 4 Fraction of Inspired Oxygen Sepsis Recent Fever Within 48 Hours Sepsis New/Unexplained Change in Mental Status Sepsis Action Taken by Nursing 06/09/24 12:57 06/09/24 13:00 06/09/24 14:55 Temperature Temperature Source Pulse Rate 102 H 102 H 113 H Pulse Rate from SpO2 Sensor 102 H 102 H Pulse Rhythm Pulse Strength Respiratory Rate 31 H 17 28 H Respiratory Effort / Characteristics Spontaneous Short of Breath Respiratory Depth Shallow Respiratory Pattern Blood Pressure Blood Pressure Mean Blood Pressure Position Pulse Oximetry 98 98 95 Oxygen Delivery Method Oxygen Flow Rate Fraction of Inspired Oxygen 40 Sepsis Recent Fever Within 48 Hours Sepsis New/Unexplained Change in Mental Status Sepsis Action Taken by Nursing 06/09/24 15:37 Temperature Temperature Source Pulse Rate 104 H Pulse Rate from SpO2 Sensor Pulse Rhythm Pulse Strength Respiratory Rate 30 H Respiratory Effort / Characteristics Spontaneous Short of Breath Respiratory Depth Respiratory Pattern Regular Blood Pressure Blood Pressure Mean Blood Pressure Position Pulse Oximetry 94 Oxygen Delivery Method Oxygen Flow Rate Fraction of Inspired Oxygen 40 Sepsis Recent Fever Within 48 Hours Sepsis New/Unexplained Change in Mental Status Sepsis Action Taken by Nursing Laboratory Data 06/09/24 12:56 06/09/24 12:56 Lab Results 06/09/24 06/09/24 06/09/24 Range/Units 12:56 13:01 13:12 WBC 7.49 (4.8-10.8) K/ul RBC 4.14 L (4.20-5.40) M/uL Hgb 11.1 L (12.0-16.0) g/dl POC Hgb 12.2 (12.0-16.0) g/dl Hct 36.2 L (37.0-47.0) % POC Hct 36 L (37-47) % MCV 87.4 (80.0-100.0) fL MCH 26.8 (25.0-34.0) pg MCHC 30.7 L (32.0-36.0) g/dL RDW Std Deviation 49.1 H (36.4-46.3) fL RDW Coeff of Smith 15.3 H (11.5-14.5) % Plt Count 210 (130-400) K/uL MPV 10.4 (9.4-12.4) fL Immature Gran % (Auto) 0.5 % Neut % (Auto) 78.9 % Lymph % (Auto) 13.4 % [place] % (Auto) 5.6 % Eos % (Auto) 1.2 % Baso % (Auto) 0.4 % Neut # (Auto) 5.91 (1.40-6.50) K/uL Lymph # (Auto) 1.00 L (1.20-3.40) K/uL [place] # (Auto) 0.42 (0.11-0.59) K/uL Eos # (Auto) 0.09 (0.00-0.50) K/uL Baso # (Auto) 0.03 (0.00-0.20) K/uL Immature Gran # (Auto) 0.04 (0.01-0.20) K/uL PT 10.2 (9.0-12.0) Seconds INR 0.9 (0.9-1.1) APTT 26 (21-31) Seconds PTT Ratio 1.0 ABG pH (7.35-7.45) ABG pCO2 (35-46) mmHg ABG pO2 (80-95) mmHg ABG HCO3 (19-24) mmol/L ABG O2 Saturation (90-95) % ABG Base Excess (-9-1.8) mEq/L Xavier Test (Pos) Oxygen Given POC Sodium 139 (135-144) mmol/L Sodium 138 (136-145) mmol/L POC Potassium 4.1 (3.3-5.0) mmol/L Potassium 4.1 (3.5-5.1) mmol/L POC Chloride 94 L (101-112) mmol/L Chloride 96 L (98-107) mmol/L Carbon Dioxide 38 H (21-32) mmol/L POC Total CO2 36 H (24-31) mmol/L Anion Gap 4 (3-11) POC Anion Gap 14.0 L (16-25) mmol/L POC BUN 19 H (7-18) mg/dl BUN 19 (6-23) mg/dl Creatinine 0.88 (0.6-1.2) mg/dl POC Creatinine 0.9 (0.6-1.3) mg/dl Est Cr Clr Drug Dosing 64.9 ml/min Est GFR ( Amer) 74.0 ml/min Est GFR (Non-Af Amer) 63.8 ml/min BUN/Creatinine Ratio 21.6 H (10-20) Glucose 280 H (70-99(Fasting)) mg/dl POC Glucose (other) 275 H (70-99) mg/dl Calcium 9.3 (8.6-10.3) mg/dl POC Ioniz Calcium Coleen 1.15 (1.12-1.32) mmol/l Magnesium 2.0 (1.7-2.4) mg/dl Total Bilirubin 0.5 (0.2-1.0) mg/dl AST 17 (13-39) U/L ALT 10 (7-52) U/L Alkaline Phosphatase 71 (34-104) U/L Troponin I High Sens 24.2 H (0-14) pg/ml B-Natriuretic Peptide 788 H (0-100) pg/ml Total Protein 8.0 (6.0-8.3) gm/dl Albumin 4.1 (3.4-5.0) gm/dl Globulin 3.9 (2.5-4.0) gm/dl Albumin/Globulin Ratio 1.1 (0.9-2) Procalcitonin < 0.02 (0-0.5) ng/ml Urine Color Yellow Urine Appearance Clear (Clear) Urine pH 8.0 H (4.5-7.5) Ur Specific [place] 1.015 (1.000-1.030) Urine Protein 3+ H (Negative) Urine Glucose (UA) 2+ H (Negative) Urine Ketones Negative (Negative) Urine Blood 1+ H (Negative) Urine Nitrite Negative (Negative) Urine Bilirubin Negative (Negative) Urine Urobilinogen Negative (Negative) Ur Leukocyte Esterase Negative (Negative) Urine WBC (Auto) 0-5 (0-5) /hpf Urine RBC (Auto) 6-10 H (0-2) /hpf U Hyaline Cast (Auto) 0-2 (0-2) /lpf U Epithel Cells (Auto) 0-2 (0-2) /hpf Urine Bacteria (Auto) None Seen (None Seen) Adenovirus (PCR) Not Detected (NotDetected) B. pertussis DNA (PCR) Not Detected (NotDetected) B.parapertussis DNA PCR Not Detected (NotDetected) C. pneumoniae DNA (PCR) Not Detected (NotDetected) Coronavirus OC43 (PCR) Not Detected (NotDetected) Coronavirus HKU1 (PCR) Not Detected (NotDetected) Coronavirus 229E (PCR) Not Detected (NotDetected) SARS-CoV-2 (PCR) Not Detected (NotDetected) Coronavirus NL63 (PCR) Not Detected (NotDetected) Human Metapneumovir PCR Not Detected (NotDetected) Influenza Type A (PCR) Not Detected (NotDetected) Influenza Type B (PCR) Not Detected (NotDetected) M. pneumoniae (PCR) Not Detected (NotDetected) Parainfluenza 1 (PCR) Not Detected (NotDetected) Parainfluenza 2 (PCR) Not Detected (NotDetected) Parainfluenza 3 (PCR) Not Detected (NotDetected) Parainfluenza 4 (PCR) Not Detected (NotDetected) RSV (PCR) Not Detected (NotDetected) Entero/Rhino (PCR) Not Detected (NotDetected) 06/09/24 Range/Units 14:49 WBC (4.8-10.8) K/ul RBC (4.20-5.40) M/uL Hgb (12.0-16.0) g/dl POC Hgb (12.0-16.0) g/dl Hct (37.0-47.0) % POC Hct (37-47) % MCV (80.0-100.0) fL MCH (25.0-34.0) pg MCHC (32.0-36.0) g/dL RDW Std Deviation (36.4-46.3) fL RDW Coeff of Smith (11.5-14.5) % Plt Count (130-400) K/uL MPV (9.4-12.4) fL Immature Gran % (Auto) % Neut % (Auto) % Lymph % (Auto) % [place] % (Auto) % Eos % (Auto) % Baso % (Auto) % Neut # (Auto) (1.40-6.50) K/uL Lymph # (Auto) (1.20-3.40) K/uL [place] # (Auto) (0.11-0.59) K/uL Eos # (Auto) (0.00-0.50) K/uL Baso # (Auto) (0.00-0.20) K/uL Immature Gran # (Auto) (0.01-0.20) K/uL PT (9.0-12.0) Seconds INR (0.9-1.1) APTT (21-31) Seconds PTT Ratio ABG pH 7.20 L (7.35-7.45) ABG pCO2 96 H (35-46) mmHg ABG pO2 99 H (80-95) mmHg ABG HCO3 38 H (19-24) mmol/L ABG O2 Saturation 97.9 H (90-95) % ABG Base Excess 5.9 H (-9-1.8) mEq/L Xavier Test Pos (Pos) Oxygen Given 40% POC Sodium (135-144) mmol/L Sodium (136-145) mmol/L POC Potassium (3.3-5.0) mmol/L Potassium (3.5-5.1) mmol/L POC Chloride (101-112) mmol/L Chloride (98-107) mmol/L Carbon Dioxide (21-32) mmol/L POC Total CO2 (24-31) mmol/L Anion Gap (3-11) POC Anion Gap (16-25) mmol/L POC BUN (7-18) mg/dl BUN (6-23) mg/dl Creatinine (0.6-1.2) mg/dl POC Creatinine (0.6-1.3) mg/dl Est Cr Clr Drug Dosing ml/min Est GFR ( Amer) ml/min Est GFR (Non-Af Amer) ml/min BUN/Creatinine Ratio (10-20) Glucose (70-99(Fasting)) mg/dl POC Glucose (other) (70-99) mg/dl Calcium (8.6-10.3) mg/dl POC Ioniz Calcium [place] (1.12-1.32) mmol/l Magnesium (1.7-2.4) mg/dl Total Bilirubin (0.2-1.0) mg/dl AST (13-39) U/L ALT (7-52) U/L Alkaline Phosphatase (34-104) U/L Troponin I High Sens 25.4 H (0-14) pg/ml B-Natriuretic Peptide (0-100) pg/ml Total Protein (6.0-8.3) gm/dl Albumin (3.4-5.0) gm/dl Globulin (2.5-4.0) gm/dl Albumin/Globulin Ratio (0.9-2) Procalcitonin (0-0.5) ng/ml Urine Color Urine Appearance (Clear) Urine pH (4.5-7.5) Ur Specific [place] (1.000-1.030) Urine Protein (Negative) Urine Glucose (UA) (Negative) Urine Ketones (Negative) Urine Blood (Negative) Urine Nitrite (Negative) Urine Bilirubin (Negative) Urine Urobilinogen (Negative) Ur Leukocyte Esterase (Negative) Urine WBC (Auto) (0-5) /hpf Urine RBC (Auto) (0-2) /hpf U Hyaline Cast (Auto) (0-2) /lpf U Epithel Cells (Auto) (0-2) /hpf Urine Bacteria (Auto) (None Seen) Adenovirus (PCR) (NotDetected) B. pertussis DNA (PCR) (NotDetected) B.parapertussis DNA PCR (NotDetected) C. pneumoniae DNA (PCR) (NotDetected) Coronavirus OC43 (PCR) (NotDetected) Coronavirus HKU1 (PCR) (NotDetected) Coronavirus 229E (PCR) (NotDetected) SARS-CoV-2 (PCR) (NotDetected) Coronavirus NL63 (PCR) (NotDetected) Human Metapneumovir PCR (NotDetected) Influenza Type A (PCR) (NotDetected) Influenza Type B (PCR) (NotDetected) M. pneumoniae (PCR) (NotDetected) Parainfluenza 1 (PCR) (NotDetected) Parainfluenza 2 (PCR) (NotDetected) Parainfluenza 3 (PCR) (NotDetected) Parainfluenza 4 (PCR) (NotDetected) RSV (PCR) (NotDetected) Entero/Rhino (PCR) (NotDetected) Administered Medications Discontinued Medications Bumetanide 1 mg/ Syringe 4 mls @ 4 mls/min IV ONE ONE Stop: 06/09/24 13:24 Last Admin: 06/09/24 14:03 Dose: 4 mls/min Documented By: VELVET Bumetanide 1 mg/ Syringe 4 mls @ 4 mls/min IV ONE ONE Stop: 06/09/24 15:16 Last Admin: 06/09/24 15:56 Dose: 4 mls/min Documented By: VELVET Lorazepam (Lorazepam 1 Mg/1 Ml Syr Ed Inj Use) 0.5 mg IV ONE STA Stop: 06/09/24 15:04 Last Admin: 06/09/24 15:22 Dose: 0.5 mg Documented By: MKIA Morphine Sulfate (Morphine Sulfate 2 Mg/Ml Carp) 1 mg IV NOW STA Stop: 06/09/24 14:42 Last Admin: 06/09/24 14:57 Dose: Not Given Documented By: VELVET Morphine Sulfate (Morphine Sulfate 2 Mg/Ml Carp) Confirm Administered Dose 2 mg .ROUTE .STK-MED ONE Stop: 06/09/24 14:46 Last Admin: 06/09/24 14:57 Dose: Not Given Documented By: VELVET Nitroglycerin (Nitroglycerin 2% Ointment 30gm Tube) Confirm Administered Dose 18 inch EXT .STK-MED ONE Stop: 06/09/24 14:53 Last Admin: 06/09/24 14:58 Dose: Not Given Documented By: VELVET Imaging Data Radiologist's Impression: Chest X-Ray 06/09/24 12:49 XR chest 1V portable HISTORY: Dyspnea, swelling COMPARISON: Chest CT 05/06/2024. FINDINGS: No pneumothorax. The heart remains mildly enlarged. Pulmonary edema and small bilateral pleural effusions persist. Left basilar linear densities again noted. These are nonspecific but favor subsegmental atelectasis. No acute fractures. No new focal lung consolidations. IMPRESSION: 1. Cardiomegaly with mild pulmonary edema and small bilateral pleural effusions. This is similar to the prior study. 2. Left basilar linear densities persist and favor atelectasis. A superimposed pneumonia would be difficult to exclude. ACT 112: Negative or not required by law. Electronically signed by: Edgar Meek M.D. 06/09/2024 2:07 PM Foot X-Ray 06/09/24 15:02 LEFT FOOT 2 VIEWS CLINICAL HISTORY: Second and fourth toe infections. FINDINGS: AP and lateral views of the left foot are compared to study dated 02/22/2011. The skeletal structures are heterogeneously osteopenic. No fracture is seen. Moderate osteoarthritic change is seen throughout the foot, greatest at the first metatarsophalangeal joint. No bony erosion is identified. There are dorsal and plantar heel spurs. Degenerative spurring is seen along the dorsal aspect of the tarsal bones. Marked soft tissue edema is present throughout the foot, greatest dorsally. No soft tissue gas or radiodense foreign body is identified. IMPRESSION: 1. Soft tissue swelling with no acute bony abnormality identified. 2. Osteopenia with degenerative change and heel spurs as above. Electronically signed by: Michelet Morocho M.D. 06/09/2024 4:02 PM Discharge Plan Visit Data Chief Complaint: Shortness of Breath/Dyspnea Stated Complaint: SOB ED Provider: Moiz Mason Discharge Problem: Acute on chronic respiratory failure with hypoxia and hypercapnia, Acute heart failure with preserved ejection fraction Patient Disposition: Admitted As Inpatient Forms Stand Alone Forms: My [facility] [address] Prescriptions Prescriptions: No Action metoprolol succinate 200 mg tablet extended release 24 hr 200 mg PO DAILY Qty: 90 3RF losartan 50 mg tablet 50 mg PO QAM Qty: 90 3RF Patient Comments: PT STATED SHE DOES NOT TAKE THIS BP MEDICATION. levothyroxine 150 mcg tablet 150 mcg PO DAILYBB Qty: 90 3RF ipratropium-albuterol 0.5 mg-3 mg(2.5 mg base)/3 mL solution for nebulization 3 ml inhalation Q6R Qty: 90 0RF albuterol sulfate 2.5 mg/0.5 mL solution for nebulization 2.5 mg inhalation Q4H PRN (Reason: shortness of breath or wheezing or cough) bumetanide 1 mg tablet 1 mg PO DAILY Qty: 120 3RF Rx Instructions: Take in addition to .5 mg tablet for a total of 1.5 mg daily. May increase to 2 mg PRN for edema. semaglutide [Rybelsus] 3 mg tablet 3 mg PO WK 0RF albuterol sulfate 90 mcg/actuation HFA aerosol inhaler 2 puff INHALATION Q4H PRN (Reason: cough/wheeze/shortness of breath) Qty: 18 1RF (DME) Spacer for Inhaler Misc See Rx Instructions .Route Qty: 1 0RF Rx Instructions: As directed (DME) OneTouch Verio test strips Strip See Rx Instructions .ROUTE .MEDSUPPLY Qty: 100 3RF Rx Instructions: for once a day testing (DME) pen needle, diabetic [BD Ultra-Fine Micro Pen Needle] 32 gauge x 1/4" needle See Rx Instructions .ROUTE .MEDSUPPLY Qty: 50 0RF Rx Instructions: As directed triamcinolone acetonide 0.1 % cream 1 applic EXT BID PRN (Reason: FLARE UPS) Rx Instructions: apply twice daily in thin amounts to scaly, dry skin on front of legs; use for 5-7 days only. meclizine 12.5 mg Tablet 12.5 mg PO TID Qty: 21 0RF Levemir FlexPen 100 unit/mL (3 mL) insulin pen 30 unit SUBCUT QAM azithromycin 250 mg Tablet 250 mg PO DAILY Qty: 4 0RF Referrals Referrals: Luann France MD [Primary Care Provider] -
[2024-06-09 13:14] LABS: Basophils # (auto) 0.03 K/uL (0.00-0.20); Basophils % (auto) 0.4 %; Eosinophils # (auto) 0.09 K/uL (0.00-0.50); Eosinophils % (auto) 1.2 %; Hematocrit (blood only) 36.2 % (37.0-47.0); Hemoglobin 11.1 g/dl (12.0-16.0); Immature Granulocytes # (auto) 0.04 K/uL (0.01-0.20); Immature Granulocytes % (auto) 0.5 %; Lymphocytes % (auto) 13.4 %; Mean Corpuscular Hemoglobin 26.8 pg (25.0-34.0); Mean Corpuscular Hgb Conc 30.7 g/dL (32.0-36.0); Mean Corpuscular Volume 87.4 fL (80.0-100.0); Mean Platelet Volume 10.4 fL (9.4-12.4); Monocytes # (auto) 0.42 K/uL (0.11-0.59); Monocytes % (auto) 5.6 %; Neutrophils # (auto) 5.91 K/uL (1.40-6.50); Neutrophils % (auto) 78.9 %; Platelet Count 210 K/uL (130-400); RDW Coefficient of Variation 15.3 % (11.5-14.5); RDW Standard Deviation 49.1 fL (36.4-46.3); Red Blood Count 4.14 M/uL (4.20-5.40); White Blood Count 7.49 K/ul (4.8-10.8)
[2024-06-09 13:16] LABS: iSTAT Creatinine 0.9 mg/dl (0.6-1.3); iSTAT Hemoglobin 12.2 g/dl (12.0-16.0); iSTAT Ionized Calcium 1.15 mmol/l (1.12-1.32); iSTAT Potassium 4.1 mmol/L (3.3-5.0)
[2024-06-09 13:29] LABS: Appearance Urine Clear (Clear); Bacteria Urine Automated None Seen (None Seen); Bilirubin Urine Negative (Negative); Blood Urine 1+ (Negative); Cast Urine Automated 0-2 /lpf (0-2); Color Urine Yellow; Epithelial Cell Urine Auto 0-2 /hpf (0-2); Glucose Urine UA 2+ (Negative); Ketones Urine Negative (Negative); Leukocyte Esterase Urine Negative (Negative); Nitrite Urine Negative (Negative); Protein Urine 3+ (Negative); Specific Gravity Urine 1.015 (1.000-1.030); Urobilinogen Urine Negative (Negative); WBC Urine Automated 0-5 /hpf (0-5)
[2024-06-09 13:33] LABS: Albumin Globulin Ratio 1.1 (0.9-2); Albumin Level 4.1 gm/dl (3.4-5.0); BUN Creatinine Ratio 21.6 (10-20); Bilirubin,Total 0.5 mg/dl (0.2-1.0); Calcium 9.3 mg/dl (8.6-10.3); Creatinine Clr Calc Pharmacy 64.9 ml/min; Est GFR (Non-African American) 63.8 ml/min; Globulin 3.9 gm/dl (2.5-4.0); Potassium 4.1 mmol/L (3.5-5.1)
[2024-06-09 13:39] LABS: Troponin I High Sensitivity 24.2 pg/ml (0-14)
[2024-06-09 13:44] LABS: INR 0.9 (0.9-1.1); Partial Thromboplastin Time 26 Seconds (21-31); Prothrombin Time 10.2 Seconds (9.0-12.0)
[2024-06-09] MEDS: BUMETANIDE 1 MG in SYRINGE 0 ML IV ONE ×2 (14:03→15:56)
--- NOTE | 2024-06-09 14:09 | XRay Report ---
XR chest 1V portable HISTORY: Dyspnea, swelling COMPARISON: Chest CT 05/06/2024. FINDINGS: No pneumothorax. The heart remains mildly enlarged. Pulmonary edema and small bilateral ple ural effusions persist. Left basilar linear densities again noted. These are nonspecific but favor garcia bsegmental atelectasis. No acute fractures. No new focal lung consolidations. IMPRESSION: 1. Cardiomegaly with mild pulmonary edema and small bilateral pleural effusions. This is similar to t he prior study. 2. Left basilar linear densities persist and favor atelectasis. A superimposed pneumonia would be dif ficult to exclude. ACT 112: Negative or not required by law. Electronically signed by: Edgar Meek M.D. 06/09/2024 2:07 PM
[2024-06-09 14:17] LABS: Adenovirus PCR Not Detected (NotDetected); Bordetella parapertussis PCR Not Detected (NotDetected); Bordetella pertussis PCR Not Detected (NotDetected); Chlamydia pneumoniae PCR Not Detected (NotDetected); Coronavirus 229E PCR Not Detected (NotDetected); Coronavirus CoV-2 (COVID19)PCR Not Detected (NotDetected); Coronavirus HKU1 PCR Not Detected (NotDetected); Coronavirus NL63 PCR Not Detected (NotDetected); Coronavirus OC43PCR Not Detected (NotDetected); Human Metapneumovirus PCR Not Detected (NotDetected); Influenza A PCR Not Detected (NotDetected); Influenza B PCR Not Detected (NotDetected); Mycoplasma pneumoniae PCR Not Detected (NotDetected); Parainfluenza Virus 1 PCR Not Detected (NotDetected); Parainfluenza Virus 2 PCR Not Detected (NotDetected); Parainfluenza Virus 3 PCR Not Detected (NotDetected); Parainfluenza Virus 4 PCR Not Detected (NotDetected); Respiratory Syncytial VirusPCR Not Detected (NotDetected); Rhinovirus/Enterovirus PCR Not Detected (NotDetected)
--- NOTE | 2024-06-09 14:26 | History & Physical Report ---
Date of Service June 09, 2024 Assessment & Plan (1) Acute on chronic respiratory failure with hypoxia and hypercapnia: Plan: Admit to the PCU on telemetry and pulse oximetry Currently stable on BiPAP at 12/6 and 40% FiO2 Presented to ED with approximately 2 weeks of progressive acute on chronic respiratory failure with increased O2 demands Pathology is consistent with previous admissions as she is not compliant with her home Bumex causing volume overload and refuses to be officially tested for ANIBAL causing ongoing CO2 retention Patient was in significant respiratory failure at time of admission, ABG ordered on admission with a pH of 7.20, pCO2 of 96, and pO2 of 99 Chest x-ray with pulmonary edema on bilateral pleural effusions No signs of infection at this time Status post 1 mg IV Bumex in the ED, will give another 1 mg IV now, plan to continue to advance IV twice daily moving forward Will have Naik catheter placed at the time of admission Patient was given 0.5 mg IV Ativan as she has a very difficult time tolerating BiPAP without, will likely need ongoing as needed doses to tolerate Will repeat ABG in approximately 3 hours to monitor for improvement or progression of her hypercapnia Monitor intake/output every shift, daily weights Subcu Lovenox for DVT prophylaxis N.p.o. while on BiPAP AM CBC, CMP, mag, PT/INR (2) Acute heart failure with preserved ejection fraction: Plan: Long history of noncompliance with p.o. diuretics due to not wanting to urinate frequently at home Noted to be volume overloaded on exam Has received a total of 2 mg IV Bumex at the time of admission, continue with 2 mg IV twice daily for now Monitor intake output every shift with daily weights (3) Type 2 diabetes mellitus with obesity: Plan: Monitor BSG every 6 hours while on BiPAP, goal is [id number] Review of previous admission shows her to be recurrently hypoglycemic with any basal insulin, will hold basal insulin for now Start CF of 50 and CR of 15 every 6 hours Adjust regimen as needed (4) Foot contusion: Plan: Patient noted to have bruising at the distal aspects of the left second and fourth toes Reports hitting her left foot off of the wall while trying to turn in her wheelchair at home Does not look grossly infected at this time we will hold on antibiotics Will follow x-ray of the left foot with admission Start with as needed Tylenol for pain (5) Hypertension: Plan: Noted to be significant hypertensive since arrival to the ED with systolic blood pressure as high as the 220s Patient confirms she did not take her a.m. medications which will include losartan, metoprolol, and Bumex Will start 0.5 inches nitroglycerin paste to assist with blood pressure and pulmonary edema Continue with twice daily IV Bumex Will hold losartan for now until we see how she responds to the nitroglycerin paste and IV diuresis Once she is stable we will continue her metoprolol (6) Hypothyroidism: Plan: Continue levothyroxine Plan The patient was discussed with Dr. Chacko at the time of the admission History of Present Illness Chief Complaint: Acute on chronic SOB/respiratory failure Primary Care Provider: Luann France MD Carli is a a 78-year-old female with PMH of HFrEF, HTN, cardiomyopathy, severe COPD, chronic hypoxic respiratory failure on baseline 2 L nasal cannula, hypothyroidism, dyslipidemia, diabetes, asthma, and arthritis who presented to the [facility] ED via EMS on 06/09/2024 with complaints of acute on chronic shortness of breath with increased oxygen requirements. She was initially noted to be hypoxic with SpO2 in the low 80s on 4 L nasal cannula, hypertensive at 195/105, tachypneic at 27, and otherwise stable. Labs were significant for an anion gap of 4 with bicarb of 38, initial high-sensitivity troponin of 24, BNP of 788 (down from 863 as of 05/05/2024), UA with 3+ protein, 2+ glucose, 1+ blood, and 6-10 RBCs, with full respiratory BioFire negative. Chest x-ray was read as cardiomegaly with mild pulmonary edema and small bilateral pleural effusions similar to previous imaging. Left basilar linear densities persist in favor atelectasis. A superimposed pneumonia would be difficult to exclude. Prior to admission the patient was given 1 mg IV Bumex. Patient was sitting in bed in significant respiratory distress at the start of my exam. Unable to speak in complete sentences, tachypneic, abdominal breathing and accessory muscle use. Saturating in the high 80s on 4 L nasal cannula. She confirms that she has been noncompliant with her p.o. Bumex at home as she lives at home alone and is unable to get to the bathroom quick enough when she takes her Bumex. Has had progressive shortness of breath over the past 2 weeks but much worse over the past week. Nonproductive cough, sensation of tightness in her chest. Denies fever or chills, denies abdominal pain, nausea/vomiting, dysuria, hematuria, diarrhea, melena. Injured her left fourth and second toes when she hit them off her wall while turning her wheelchair around. We had a long discussion again about the need to start her on BiPAP with ongoing diuresis. She is again hesitant to start BiPAP due to severe claustrophobia but is willing to try with small doses of Ativan like last admission. If she would be unable to tolerate BiPAP she understands that she would continue to clinically decline. She confirms that she is a DNR/DNI and that if she could not tolerate BiPAP she would likely need to be transition to comfort measures. She confirms that her daughter is her primary decision-maker if she cannot make decisions result. Please refer to Dr. Chacko's attestation for any changes to the treatment plan Allergies Allergy/AdvReac Type Severity Reaction Status Date / Time aspirin Allergy Severe HIVES; Verified 05/25/24 15:53 DIFFICULTY BREATHING colchicine Allergy Severe Difficulty Verified 05/25/24 15:53 Breathing Iodinated Contrast Media Allergy Intermediate Rash Verified 05/25/24 15:53 Benzodiazepines Allergy Unknown Unknown Verified 05/25/24 15:53 diltiazem Allergy Unknown UNKNOWN Verified 05/25/24 15:53 REACTION doxycycline Allergy Unknown Unknown Verified 05/25/24 15:53 melon Allergy Unknown Unknown Verified 05/25/24 15:53 nifedipine Allergy Unknown UNKNOWN Verified 05/25/24 15:53 REACTION simvastatin Allergy Unknown UNKNOWN Verified 05/25/24 15:53 REACTION PER PT vancomycin Allergy Unknown UNKNOWN Verified 05/25/24 15:53 REACTION metformin AdvReac Intermediate Diarrhea Verified 05/25/24 15:53 Home Medications Medication Instructions Recorded Confirmed Type Spacer for Inhaler #1 ea 09/04/22 05/25/24 Rx blood sugar diagnostic (OneTouch #100 ea 12/17/22 05/25/24 Rx Verio test strips) pen needle, diabetic 32 gauge x #50 ea 12/17/22 05/25/24 Rx 1/4" (BD Ultra-Fine Micro Pen Needle) albuterol sulfate 90 mcg/actuation 2 puff inhalation Q4H PRN 03/14/23 05/25/24 Rx aerosol inhaler cough/wheeze/shortness of breath #18 grams triamcinolone acetonide 0.1 % 1 applic EXT BID PRN FLARE UPS 04/17/23 05/25/24 History topical cream metoprolol succinate 200 mg 200 mg PO DAILY #90 tabs 07/13/23 05/25/24 Rx tablet,extended release 24 hr losartan 50 mg tablet 50 mg PO QAM #90 tabs 09/03/23 05/25/24 Rx meclizine 12.5 mg tablet 12.5 mg PO TID #21 tabs 01/05/24 05/25/24 Rx bumetanide 1 mg tablet 1 mg PO DAILY #120 tabs 01/10/24 05/25/24 Rx levothyroxine 150 mcg tablet 150 mcg PO DAILYBB #90 tabs 01/17/24 05/25/24 Rx albuterol sulfate 2.5 mg/0.5 mL 2.5 mg inhalation Q4H PRN 02/07/24 05/25/24 History solution for nebulization shortness of breath or wheezing or cough insulin detemir U-100 100 unit/mL 30 unit subcut QAM 05/08/24 05/25/24 History (3 mL) subcutaneous pen (Levemir FlexPen) ipratropium 0.5 mg-albuterol 3 mg 3 ml inhalation Q6R #90 mL 05/11/24 05/25/24 Rx (2.5 mg base)/3 mL nebulization soln azithromycin 250 mg tablet 250 mg PO DAILY #4 tabs 05/12/24 05/25/24 Rx Past Med/Surg History Problem List (Updated 06/09/24 @ 16:18 by Moiz Mason M.D.) Foot contusion Acute heart failure with preserved ejection fraction (Acute) Acute on chronic respiratory failure with hypoxia and hypercapnia (Acute) Heart failure with improved ejection fraction (HFimpEF) Pneumonia (Acute) Acute heart failure with reduced ejection fraction (HFrEF, <= 40%) (Acute) Vertigo Sensorineural hearing loss (SNHL) of left ear with restricted hearing of right ear Type 2 diabetes mellitus with obesity Benign positional vertigo Acute and chronic respiratory failure (Acute) HFrEF (heart failure with reduced ejection fraction) Anemia Acute on chronic heart failure with preserved ejection fraction (HFpEF) Hypercapnic respiratory failure, chronic Pleural effusion (Acute) CHF (congestive heart failure) (Acute) Pericardial effusion Pulmonary hypertension Atypical nevus of thoracic region Cardiomyopathy Contracture of right knee Impacted fracture of right hip (~04/19/23) Proteinuria Bronchiectasis Chronic respiratory failure with hypoxia, on home O2 therapy O2 prn at 2L Hypothyroidism Obstructive lung disease Asthma Migraine headache Arthritis Venous stasis dermatitis of both lower extremities Nephrotic range proteinuria Shortness of breath Acute maculopapular rash Dyslipidemia Obstructive pattern present on pulmonary function testing Ambulatory dysfunction Diastolic heart failure HX Medical History (Updated 06/09/24 @ 16:18 by Moiz Mason M.D.) COPD (chronic obstructive pulmonary disease) Hypertension Diabetes mellitus with albuminuria Abdominal distension Epistaxis Acute on chronic systolic heart failure Near syncope Hydronephrosis, bilateral Acute UTI Renal cyst, left Pleuritic chest pain 4x in the past year (HFpEF) heart failure with preserved ejection fraction Acute and chronic respiratory failure with hypoxia Lymphedema Chest pain hx-"more pleuritic pain, not cardiac related" Type 2 diabetes mellitus with peripheral neuropathy Chronic edema Hypomagnesemia Hypokalemia Elevated serum globulin level Multiple drug allergies Wheelchair bound Right knee DJD Lower extremity edema Hx of thyroid cancer History of seizures as a child Financial difficulties Hypothyroidism, postablative Pleurisy without effusion have been hospitalized 4x in the past year for this History of ectopic Hx of papillary thyroid carcinoma Gait abnormality Vitamin D deficiency Hx of pleurisy Surgical History History of D&C Hx of thyroidectomy Hx of brain surgery 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 during the procedure Hx of section Family History Father Stroke Mother Dementia Diabetes Sister Macular degeneration Brother Macular degeneration Other TIA (transient ischemic attack) Denies family history of Ovarian cancer Prostate cancer Myocardial infarction Breast cancer Colorectal cancer Social History Smoking Status: Never smoker Second Hand Exposure: No; Do You Dip or Chew Tobacco: No; Hx Alcohol Use: No Hx Substance Use: No Preferred Language: Senegalese Communication Ability: Effective Visual Impairment: No Limitations Hearing Ability: Normal Bar Steward Required: No Beliefs That Will Affect Care: None marital status: / Current Living Situation: Alone Current Living Situation Comment: Lives alone in house current occupational status: retired 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 Feels Safe at Home: Yes Safety Concerns: Feels Safe At This Time Childhood Exposure to Second-Hand Smoke: No Diet: regular Dental Care, Regularly: Yes Physical Activity Frequency: Does not Exercise Seatbelt Use: always Sunscreen Use: No Assistive Devices: Glasses Physical Exam 2 Physical Exam: Physical Exam: General: In significant distress due to respiratory failure, stated age, ill appearing HEENT: Normocephalic, atraumatic, no scleral icterus, pupils around round, symmetrical, and reactive to light, moist mucus membranes, +JVD, trachea midline, no thyromegaly Chest/Pulm: Significant respiratory distress with tachypnea, abdominal breathing, accessory muscle use, and inability to speak in complete sentences, symmetrical chest expansion, decreased breath sounds in the BL lower lung brooke with crackles noted in the mid and upper lung brooke Cardiac: tachycardic rate, regular rhythm, no murmurs noted Abdomen: Negative for ascites and bruising, normoactive bowel sounds, soft, non-tender to palpation throughout Musculoskeletal: left second and 4th toes appear bruised due to recent trauma, otherwise no acute trauma on exam Extremities: Significant lymphedema noted in the BL LE's Skin: Signs of chronic venous insufficiency in the BL LE's, no signs of infection; see pictures below. Neuro: Alert and oriented to person, place, month, year, and president, no focal defects, no tremors noted Psych: Significant distress due to respiratory failure, but polite and cooperative during the exam Results & Data Results & Data Vital Signs (Past 12 Hours) Vital Signs Temp Pulse Resp BP Pulse Ox O2 Del Method O2 Flow Rate 06/09/24 13:00 102 H 17 98 06/09/24 12:57 102 H 31 H 98 06/09/24 12:49 110 H 22 94 Nasal Cannula 4 06/09/24 12:45 105 H 23 98 Nasal Cannula 4 06/09/24 12:39 Nasal Cannula 06/09/24 12:39 Nasal Cannula 4 06/09/24 12:26 195/105 H 06/09/24 12:24 103 H 27 H 97 Nasal Cannula 4 06/09/24 12:23 104 H 06/09/24 12:21 105 H 28 H 96 Nasal Cannula 4 06/09/24 11:58 36.4 C 106 H 24 195/105 H 86 L Nasal Cannula 4 Laboratory Results Abnormal lab results 06/09/24 06/09/24 06/09/24 Range/Units 12:56 13:01 13:12 RBC 4.14 L (4.20-5.40) M/uL Hgb 11.1 L (12.0-16.0) g/dl Hct 36.2 L (37.0-47.0) % POC Hct 36 L (37-47) % MCHC 30.7 L (32.0-36.0) g/dL RDW Std Deviation 49.1 H (36.4-46.3) fL RDW Coeff of Smith 15.3 H (11.5-14.5) % Lymph # (Auto) 1.00 L (1.20-3.40) K/uL ABG pH (7.35-7.45) ABG pCO2 (35-46) mmHg ABG pO2 (80-95) mmHg ABG HCO3 (19-24) mmol/L ABG O2 Saturation (90-95) % ABG Base Excess (-9-1.8) mEq/L POC Chloride 94 L (101-112) mmol/L Chloride 96 L (98-107) mmol/L Carbon Dioxide 38 H (21-32) mmol/L POC Total CO2 36 H (24-31) mmol/L POC Anion Gap 14.0 L (16-25) mmol/L POC BUN 19 H (7-18) mg/dl BUN/Creatinine Ratio 21.6 H (10-20) Glucose 280 H (70-99(Fasting)) mg/dl POC Glucose (other) 275 H (70-99) mg/dl Troponin I High Sens 24.2 H (0-14) pg/ml B-Natriuretic Peptide 788 H (0-100) pg/ml Urine pH 8.0 H (4.5-7.5) Urine Protein 3+ H (Negative) Urine Glucose (UA) 2+ H (Negative) Urine Blood 1+ H (Negative) Urine RBC (Auto) 6-10 H (0-2) /hpf 08/23/24 Range/Units 14:49 RBC (4.20-5.40) M/uL Hgb (12.0-16.0) g/dl Hct (37.0-47.0) % POC Hct (37-47) % MCHC (32.0-36.0) g/dL RDW Std Deviation (36.4-46.3) fL RDW Coeff of Smith (11.5-14.5) % Lymph # (Auto) (1.20-3.40) K/uL ABG pH 7.20 L (7.35-7.45) ABG pCO2 96 H (35-46) mmHg ABG pO2 99 H (80-95) mmHg ABG HCO3 38 H (19-24) mmol/L ABG O2 Saturation 97.9 H (90-95) % ABG Base Excess 5.9 H (-9-1.8) mEq/L POC Chloride (101-112) mmol/L Chloride (98-107) mmol/L Carbon Dioxide (21-32) mmol/L POC Total CO2 (24-31) mmol/L POC Anion Gap (16-25) mmol/L POC BUN (7-18) mg/dl BUN/Creatinine Ratio (10-20) Glucose (70-99(Fasting)) mg/dl POC Glucose (other) (70-99) mg/dl Troponin I High Sens 25.4 H (0-14) pg/ml B-Natriuretic Peptide (0-100) pg/ml Urine pH (4.5-7.5) Urine Protein (Negative) Urine Glucose (UA) (Negative) Urine Blood (Negative) Urine RBC (Auto) (0-2) /hpf Diagnostic Findings Chest X-Ray 06/09/24 12:49 XR chest 1V portable HISTORY: Dyspnea, swelling COMPARISON: Chest CT 05/06/2024. FINDINGS: No pneumothorax. The heart remains mildly enlarged. Pulmonary edema and small bilateral pleural effusions persist. Left basilar linear densities again noted. These are nonspecific but favor subsegmental atelectasis. No acute fractures. No new focal lung consolidations. IMPRESSION: 1. Cardiomegaly with mild pulmonary edema and small bilateral pleural effusions. This is similar to the prior study. 2. Left basilar linear densities persist and favor atelectasis. A superimposed pneumonia would be difficult to exclude. ACT 112: Negative or not required by law. Electronically signed by: Edgar Meek M.D. 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 I verified all dickerson points and agree with Gonzalo Turpin PA-C with the following exceptions and/or additions: 78 year old female presents to the ER with known CHF and repeated exacerbation with shortness of breath. Non complaint with bumex at home. Progressively worsening over the last 2 weeks. O/E HS increased rate, regular rhythm, no murmurs, crackles throughout posteriorly with rhonchi anteriorly and absent air entry bibasal, Abdo SNT A/P Acute respiratory failure with hypoxia and hypercapnia - secondary to CHF and non compliance with diuretics. Severe on admission with high resp rate, labored breathing and pH 7.2. Using Ativan 0.5mg IV to help with compliance for BiPAP. Nitroglycerin paste increased to 1 inch due to continued hypertension. Reviewed in the evening and vastly improved with significant urine output. Discussed with RN and can leave off BiPAP overnight. ABG changed to VBG in AM. Aim O2 sats around 90% to avoid CO2 retention. Continue NPO overnight but as long as remains without respiratory distress can consider diet tomorrow. Acute on chronic HFpEF - Bumex 2mg IV BID, naik catheter, strict I&Os, daily weight, Nitro paste 1 inch, will hold off her other anti-hypertensives initially in favor o Toe contusion - no bone fracture, no need for antibiotics for this as no cellulitis seen (antibiotics discontinued prior to being given) PG Care Time/CCT Total # of Minutes Spent Total Time Spent with Patient: Total time spent is greater than 50% in coordination of care (as documented) at patient's floor/unit and/or counseling patient: Critical Care Time: Yes Total Critical Care Time: 45 C[place] [address] INT INP/OBS CARE 3/75MIN Patient Type Established Medical Decision Making High Complexity Diagnoses Acute on chronic respiratory failure with hypoxia and hypercapnia J96.21; J96.22 Acute heart failure with preserved ejection fraction I50.31 Type 2 diabetes mellitus with obesity E11.69; E66.9 Foot contusion S90.30XA Hypertension I10 Hypertension type: unspecified Hypothyroidism E03.9 Additional Codes Critical Care Time - Critical Care Time: Yes ([id number]) (5) Hypertension Hypertension type: unspecified Qualified Code(s): I10 - Essential (primary) hypertension
--- NOTE | 2024-06-09 14:52 | Electrocardiogram Report ---
Test Reason : Blood Pressure : */* mmHG Vent. 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
[2024-06-09] MEDS: MoRPHine SULFATE 2 MG/ML CARP ONE (14:57)
[2024-06-09] MEDS: MoRPHine SULFATE 2 MG/ML CARP IV STA (14:57)
[2024-06-09] MEDS: NITROGLYCERIN 2% OINTMENT 30GM TUBE EXT ONE (14:58)
[2024-06-09] MEDS: NITROGLYCERIN 2% OINTMENT 30GM TUBE EXT SCH ×2 (14:59→21:03)
[2024-06-09 15:03] LABS: Base Excess ABG 5.9 mEq/L (-9-1.8); HCO3 ABG 38 mmol/L (19-24); Oxygen Saturation ABG 97.9 % (90-95); PCO2 ABG 96 mmHg (35-46); PO2 ABG 99 mmHg (80-95)
[2024-06-09] MEDS ORDERED: CEFEPIME 2,000 MG in SYRINGE 0 ML IV STA (15:17)
[2024-06-09 15:21] LABS: Allen Test Pos (Pos)
[2024-06-09] MEDS: LORazepam 1 MG/1 ML SYR ED Inj Use IV STA (15:22)
[2024-06-09] MEDS ORDERED: GLUCOSE 40% GEL 15 GM TUBE PO PRN (15:47)
[2024-06-09] MEDS ORDERED: CARBOHYDRATES FOR HYPOGLYCEMIA PO PRN (15:47)
[2024-06-09] MEDS ORDERED: DEXTROSE 50% 50 ML SYRINGE IV PRN (15:47)
[2024-06-09] MEDS ORDERED: GLUCOSE 10 TAB/TUBE PO PRN (15:47)
[2024-06-09] MEDS ORDERED: GLUCAGON FOR INJ 1 MG VIAL SQ PRN (15:47)
[2024-06-09] MEDS ORDERED: DAPTOmycin 300 MG in SYRINGE 0 ML IV SCH (16:00)
--- NOTE | 2024-06-09 16:04 | XRay Report ---
LEFT FOOT 2 VIEWS CLINICAL HISTORY: Second and fourth toe infections. FINDINGS: AP and lateral views of the left foot are compared to study dated 02/22/2011. The skeletal st ructures are heterogeneously osteopenic. No fracture is seen. Moderate osteoarthritic change is seen throughout the foot, greatest at the first metatarsophalangeal joint. No bony erosion is identified. There are dorsal and plantar heel spurs. Degenerative spurring is seen along the dorsal aspect of the tarsal bones. Marked soft tissue edema is present throughout the foot, greatest dorsally. No soft ti ssue gas or radiodense foreign body is identified. IMPRESSION: 1. Soft tissue swelling with no acute bony abnormality identified. 2. Osteopenia with degenerative change and heel spurs as above. Electronically signed by: Michelet Morocho M.D. 06/09/2024 4:02 PM
[2024-06-09 17:54] LABS: HCO3 ABG 38 mmol/L (19-24); Oxygen Saturation ABG 99.2 % (90-95); PCO2 ABG 74 mmHg (35-46); PO2 ABG 120 mmHg (80-95); pH ABG 7.32 (7.35-7.45)
[2024-06-09 19:11] LABS: Allen Test Pos (Pos)
[2024-06-09] MEDS: INSULIN ASPART PER UNIT CHARGE SC SCH (19:34)
[2024-06-09] MEDS: LORazepam 0.5 MG in SYRINGE 0.25 ML IV STA (19:53)
[2024-06-09] MEDS: BUMETANIDE 2 MG in SYRINGE 0 ML IV SCH (20:53)
[2024-06-09] MEDS: ENOXAPARIN INJ 40 MG/0.4 ML SYR SQ SCH (23:41)
[2024-06-10] MEDS: ACETAMINOPHEN 1,000 MG/100 ML VIAL IV STA (00:21)
[2024-06-10] MEDS: MoRPHine SULFATE 2 MG/ML CARP IV STA (01:17)
[2024-06-10 06:04] LABS: Base Excess VBG 14.9 mEq/L; HCO3 VBG 42 mmol/L; Oxygen Saturation VBG 97.2 %; PCO2 VBG 62 mmHg (38-50); PO2 VBG 73 mmHg; pH VBG 7.44 (7.36-7.41)
[2024-06-10 06:17] LABS: Basophils # (auto) 0.03 K/uL (0.00-0.20); Basophils % (auto) 0.5 %; Eosinophils # (auto) 0.18 K/uL (0.00-0.50); Eosinophils % (auto) 2.7 %; Hematocrit (blood only) 29.7 % (37.0-47.0); Immature Granulocytes # (auto) 0.08 K/uL (0.01-0.20); Immature Granulocytes % (auto) 1.2 %; Lymphocytes # (auto) 1.46 K/uL (1.20-3.40); Mean Corpuscular Hemoglobin 26.3 pg (25.0-34.0); Mean Corpuscular Hgb Conc 30.3 g/dL (32.0-36.0); Mean Corpuscular Volume 86.8 fL (80.0-100.0); Mean Platelet Volume 10.4 fL (9.4-12.4); Monocytes # (auto) 0.48 K/uL (0.11-0.59); Monocytes % (auto) 7.2 %; Neutrophils # (auto) 4.42 K/uL (1.40-6.50); Neutrophils % (auto) 66.4 %; Platelet Count 179 K/uL (130-400); RDW Coefficient of Variation 15.3 % (11.5-14.5); RDW Standard Deviation 48.4 fL (36.4-46.3); Red Blood Count 3.42 M/uL (4.20-5.40); White Blood Count 6.65 K/ul (4.8-10.8)
[2024-06-10 07:08] LABS: Prothrombin Time 10.5 Seconds (9.0-12.0)
[2024-06-10 07:28] LABS: Albumin Level 3.2 gm/dl (3.4-5.0); BUN Creatinine Ratio 19.8 (10-20); Bilirubin,Total 0.6 mg/dl (0.2-1.0); Calcium 8.3 mg/dl (8.6-10.3); Creatinine Clr Calc Pharmacy 61.1 ml/min; Est GFR (Non-African American) 61.3 ml/min; Globulin 3.1 gm/dl (2.5-4.0); Magnesium 1.8 mg/dl (1.7-2.4); Potassium 3.8 mmol/L (3.5-5.1); Total Protein 6.3 gm/dl (6.0-8.3); Troponin I High Sensitivity 48.7 pg/ml (0-14)
--- NOTE | 2024-06-10 07:42 | Hospitalist Progress Note ---
Date of Service June 10, 2024 Assessment & Plan (1) Acute on chronic respiratory failure with hypoxia and hypercapnia: (2) Acute heart failure with preserved ejection fraction: (3) Type 2 diabetes mellitus with obesity: (4) Foot contusion: (5) Hypothyroidism: Plan: Continue levothyroxine Plan 78-year-old female with PMH of HFrEF, HTN, cardiomyopathy, severe COPD, chronic hypoxic respiratory failure on baseline 2 L nasal cannula, hypothyroidism, dyslipidemia, diabetes, asthma, and arthritis who presented to the [facility] ED via EMS on 06/09/2024 with complaints of acute on chronic shor tness of breath with increased oxygen requirements. She stated that she has been noncompliant with her bumex at home as she lives at home alone and is unable to get to the bathroom quickly. Her breathing has been worsening over the past 2 weeks. In the ED she was hypertensive, tachycardic, tachypneic, and hypoxic to low 80s on 4L NC. Labs were significant for an anion gap of 4 with bicarb of 38, initial high-sensitivity troponin of 24, BNP of 788 (down from 863 as of 05/05/2024), UA with 3+ protein, 2+ glucose, 1+ blood, and 6-10 RBCs, with full respiratory BioFire negative. Chest x-ray was read as cardiomegaly with mild pulmonary edema and small bilateral pleural effusions similar to previous imaging. Left basilar linear densities persist in favor atelectasis. A superimposed pneumonia would be difficult to exclude. She also received 1 mg IV Bumex. Pt is reluctant to be on BiPAP due to claustrophobia but tolerating with small dose of ativan. If she would be unable to tolerate BiPAP she understands that she would continue to clinically decline. She confirms that she is a DNR/DNI and that if she could not tolerate BiPAP she would likely need to be transition to comfort measures. She confirms that her daughter is her primary decision-maker if she cannot make decisions result. *ABG ordered on admission with a pH of 7.20, pCO2 of 96, and pO2 of 99 *Chest x-ray with pulmonary edema on bilateral pleural effusions #Acute on Chronic respiratory failure with hypoxia and hypercapnea #Volume overload - due to noncomplaince with Bumex causing volume overload - currently in PCU was on BiPAP at 12/6 and 40% FiO2, currently weaned to 2L NC , will order bipap HS while diuresing No signs of infection at this time - cont Bumex 2mg IV BID naik for strict I/Os - prn IV ativan to assist with BiPAP tolerance - blood gas showing improving pCO2 Monitor intake/output every shift, daily weights Subcu Lovenox for DVT prophylaxis N.p.o. while on BiPAP #Acute on Chronic HF - EF 35-40% (04/18/23) --> 50-55% 11/04/23 - long hx of diuretics noncompliance - cont IV bumex - sodium and fluid restriction #DM II with obesity Monitor BSG every 6 hours while on BiPAP, goal is [id number] Review of previous admission shows her to be recurrently hypoglycemic with any basal insulin, will hold basal insulin for now Start CF of 50 and CR of 15 every 6 hours Adjust regimen as needed #HTN Noted to be significant hypertensive since arrival to the ED with systolic blood pressure as high as the 220s Patient confirms she did not take her a.m. medications which will include losartan, metoprolol, and Bumex Will start 0.5 inches nitroglycerin paste to assist with blood pressure and pulmonary edema Continue with twice daily IV Bumex - losartan resumed, metoprolol resumed at lower dose #Left foot contusion Patient noted to have bruising at the distal aspects of the left second and fourth toes Reports hitting her left foot off of the wall while trying to turn in her wheelchair at home Does not look grossly infected at this time we will hold on antibiotics - x-ray of the left foot does not reveal any bony abnormalities cont with as needed Tylenol for pain #Hypothyroidism - resumed levothyroxine Admission and Anticipated Discharge Date Admission Date: June 09, 2024 Subjective Tolerated BiPAP weaned down to 2L NC Pt states she occasionally uses supplemental oxygen at home. She notes that she has quite the difficulty in getting to the bathroom frequently while on diuretics. She has a lift at home as well as bedside commode, but she is not able to move fast enough She also hopes to have someone assist with washing her back and feet as this is difficult for her to do alone. Currently, she is feeling better. Physical Exam Physical Exam: Gen: lying in bed comfortable, speaking in full sentences though intermittently mild conversational dyspnea is noted HEENT: NC/AT, MMM Lungs: crackles still present CVS: s1s2 normal, tachycardic Abd: soft, nontender, normal bowel sounds Ext: + edema, left toe bruising Psych: pleasant, communicating appropriately Results & Data Results & Data Vital Signs (Past 12 Hours) Vital Signs Temp Pulse Pulse Resp BP Pulse Ox O2 Del Method 06/10/24 03:18 37.1 C 90 16 166/82 H 93 Nasal Cannula 06/10/24 00:03 36.5 C 89 18 146/88 H 92 Nasal Cannula 06/09/24 22:05 88 06/09/24 22:00 Nasal Cannula 06/09/24 20:53 89 18 166/88 H 96 BiPAP 06/09/24 19:50 92 H 28 H 94 O2 Flow Rate FiO2 06/10/24 03:18 1 06/10/24 00:03 1 06/09/24 22:05 06/09/24 22:00 2 06/09/24 20:53 30 06/09/24 19:50 30 Laboratory Results Abnormal lab results 06/09/24 06/09/24 06/09/24 Range/Units 14:49 17:44 19:29 RBC (4.20-5.40) M/uL Hgb (12.0-16.0) g/dl Hct (37.0-47.0) % MCHC (32.0-36.0) g/dL RDW Std Deviation (36.4-46.3) fL RDW Coeff of Smith (11.5-14.5) % ABG pH 7.32 L (7.35-7.45) ABG pCO2 74 H (35-46) mmHg ABG pO2 120 H (80-95) mmHg ABG HCO3 38 H (19-24) mmol/L ABG O2 Saturation 99.2 H (90-95) % ABG Base Excess 9.0 H (-9-1.8) mEq/L VBG pH (7.36-7.41) VBG pCO2 (38-50) mmHg Chloride (98-107) mmol/L Carbon Dioxide (21-32) mmol/L Anion Gap (3-11) Glucose (70-99(Fasting)) mg/dl POC Glucose 283 H (70-99) mg/dl Calcium (8.6-10.3) mg/dl Troponin I High Sens 25.4 H (0-14) pg/ml Albumin (3.4-5.0) gm/dl 06/09/24 06/10/24 06/10/24 Range/Units 23:43 01:25 03:12 RBC (4.20-5.40) M/uL Hgb (12.0-16.0) g/dl Hct (37.0-47.0) % MCHC (32.0-36.0) g/dL RDW Std Deviation (36.4-46.3) fL RDW Coeff of Smith (11.5-14.5) % ABG pH (7.35-7.45) ABG pCO2 (35-46) mmHg ABG pO2 (80-95) mmHg ABG HCO3 (19-24) mmol/L ABG O2 Saturation (90-95) % ABG Base Excess (-9-1.8) mEq/L VBG pH (7.36-7.41) VBG pCO2 (38-50) mmHg Chloride (98-107) mmol/L Carbon Dioxide (21-32) mmol/L Anion Gap (3-11) Glucose (70-99(Fasting)) mg/dl POC Glucose 224 H 167 H (70-99) mg/dl Calcium (8.6-10.3) mg/dl Troponin I High Sens 48.8 H D (0-14) pg/ml Albumin (3.4-5.0) gm/dl 06/10/24 06/10/24 06/10/24 Range/Units 05:56 06:16 11:15 RBC 3.42 L (4.20-5.40) M/uL Hgb 9.0 L (12.0-16.0) g/dl Hct 29.7 L (37.0-47.0) % MCHC 30.3 L (32.0-36.0) g/dL RDW Std Deviation 48.4 H (36.4-46.3) fL RDW Coeff of Smith 15.3 H (11.5-14.5) % ABG pH (7.35-7.45) ABG pCO2 (35-46) mmHg ABG pO2 (80-95) mmHg ABG HCO3 (19-24) mmol/L ABG O2 Saturation (90-95) % ABG Base Excess (-9-1.8) mEq/L VBG pH 7.44 H (7.36-7.41) VBG pCO2 62 H (38-50) mmHg Chloride 97 L (98-107) mmol/L Carbon Dioxide 43 H* (21-32) mmol/L Anion Gap 1 L (3-11) Glucose 139 H (70-99(Fasting)) mg/dl POC Glucose 137 H 140 H (70-99) mg/dl Calcium 8.3 L (8.6-10.3) mg/dl Troponin I High Sens 48.7 H (0-14) pg/ml Albumin 3.2 L (3.4-5.0) gm/dl Diagnostic Findings Foot X-Ray 06/09/24 15:02 LEFT FOOT 2 VIEWS CLINICAL HISTORY: Second and fourth toe infections. FINDINGS: AP and lateral views of the left foot are compared to study dated 02/22/2011. The skeletal structures are heterogeneously osteopenic. No fracture is seen. Moderate osteoarthritic change is seen throughout the foot, greatest at the first metatarsophalangeal joint. No bony erosion is identified. There are dorsal and plantar heel spurs. Degenerative spurring is seen along the dorsal aspect of the tarsal bones. Marked soft tissue edema is present throughout the foot, greatest dorsally. No soft tissue gas or radiodense foreign body is identified. IMPRESSION: 1. Soft tissue swelling with no acute bony abnormality identified. 2. Osteopenia with degenerative change and heel spurs as above. Electronically signed by: Michelet Morocho M.D. 06/09/2024 4:02 PM PG Care Time/CCT Total # of Minutes Spent Total Time Spent with Patient: Total time spent is greater than 50% in coordination of care (as documented) at patient's floor/unit and/or counseling patient: Coding Level of Care Code 67813 SUB INP/OBS CARE 2/35MIN Diagnoses Acute on chronic respiratory failure with hypoxia and hypercapnia J96.21; J96.22 Acute heart failure with preserved ejection fraction I50.31 Type 2 diabetes mellitus with obesity E11.69; E66.9 Foot contusion S90.30XA Hypothyroidism E03.9
[2024-06-10] MEDS ORDERED: Nursing to Pharmacy Communication SCH (13:00)
[2024-06-10] MEDS: INSULIN ASPART PER UNIT CHARGE SC SCH (17:28)
[2024-06-10] MEDS: METOPROLOL SUCC 50MG EXT REL TAB PO SCH (17:29)
[2024-06-10] MEDS: LOSARTAN POTASSIUM 50 MG TAB PO SCH (17:29)
[2024-06-10] MEDS ORDERED: ACETAMINOPHEN 500 MG TAB PO PRN (23:14)
[2024-06-11] MEDS: LORazepam 0.5 MG in SYRINGE 0.25 ML IV PRN (00:45)
[2024-06-11 07:04] LABS: Prothrombin Time 10.8 Seconds (9.0-12.0)
[2024-06-11 07:19] LABS: Basophils # (auto) 0.04 K/uL (0.00-0.20); Basophils % (auto) 0.6 %; Hematocrit (blood only) 32.4 % (37.0-47.0); Hemoglobin 9.8 g/dl (12.0-16.0); Immature Granulocytes # (auto) 0.01 K/uL (0.01-0.20); Immature Granulocytes % (auto) 0.2 %; Lymphocytes % (auto) 18.2 %; Mean Corpuscular Hemoglobin 26.3 pg (25.0-34.0); Mean Corpuscular Hgb Conc 30.2 g/dL (32.0-36.0); Mean Corpuscular Volume 86.9 fL (80.0-100.0); Mean Platelet Volume 11.2 fL (9.4-12.4); Monocytes # (auto) 0.62 K/uL (0.11-0.59); Monocytes % (auto) 9.4 %; Neutrophils # (auto) 4.51 K/uL (1.40-6.50); Neutrophils % (auto) 68.6 %; Platelet Count 210 K/uL (130-400); RDW Coefficient of Variation 15.2 % (11.5-14.5); RDW Standard Deviation 48.3 fL (36.4-46.3); Red Blood Count 3.73 M/uL (4.20-5.40); White Blood Count 6.58 K/ul (4.8-10.8)
[2024-06-11 07:49] LABS: Albumin Level 3.3 gm/dl (3.4-5.0); BUN Creatinine Ratio 19.2 (10-20); Bilirubin,Total 0.8 mg/dl (0.2-1.0); Calcium 8.5 mg/dl (8.6-10.3); Creatinine Clr Calc Pharmacy 53.1 ml/min; Est GFR (African American) 64.2 ml/min; Est GFR (Non-African American) 55.4 ml/min; Globulin 3.3 gm/dl (2.5-4.0); Magnesium 1.7 mg/dl (1.7-2.4); Potassium 3.6 mmol/L (3.5-5.1); Total Protein 6.6 gm/dl (6.0-8.3)
--- NOTE | 2024-06-11 08:00 | Hospitalist Progress Note ---
Date of Service June 11, 2024 Assessment & Plan (1) Acute on chronic respiratory failure with hypoxia and hypercapnia: (2) Acute heart failure with preserved ejection fraction: (3) Type 2 diabetes mellitus with obesity: (4) Foot contusion: (5) Hypothyroidism: Plan: Continue levothyroxine Plan 78-year-old female with PMH of HFrEF, HTN, cardiomyopathy, severe COPD, chronic hypoxic respiratory failure on baseline 2 L nasal cannula, hypothyroidism, dyslipidemia, diabetes, asthma, and arthritis who presented to the [facility] ED via EMS on 06/09/2024 with complaints of acute on chronic shor tness of breath with increased oxygen requirements. She stated that she has been noncompliant with her bumex at home as she lives at home alone and is unable to get to the bathroom quickly. Her breathing has been worsening over the past 2 weeks. In the ED she was hypertensive, tachycardic, tachypneic, and hypoxic to low 80s on 4L NC. Labs were significant for an anion gap of 4 with bicarb of 38, initial high-sensitivity troponin of 24, BNP of 788 (down from 863 as of 05/05/2024), UA with 3+ protein, 2+ glucose, 1+ blood, and 6-10 RBCs, with full respiratory BioFire negative. Chest x-ray was read as cardiomegaly with mild pulmonary edema and small bilateral pleural effusions similar to previous imaging. Left basilar linear densities persist in favor atelectasis. A superimposed pneumonia would be difficult to exclude. She also received 1 mg IV Bumex. Pt is reluctant to be on BiPAP due to claustrophobia but tolerating with small dose of ativan. If she would be unable to tolerate BiPAP she understands that she would continue to clinically decline. She confirms that she is a DNR/DNI and that if she could not tolerate BiPAP she would likely need to be transition to comfort measures. She confirms that her daughter is her primary decision-maker if she cannot make decisions result. *ABG ordered on admission with a pH of 7.20, pCO2 of 96, and pO2 of 99 *Chest x-ray with pulmonary edema on bilateral pleural effusions #Acute on Chronic respiratory failure with hypoxia and hypercapnea #Volume overload - due to noncomplaince with Bumex causing volume overload - currently in PCU was on BiPAP at 12/6 and 40% FiO2, currently weaned to 2L NC , will order bipap HS while diuresing No signs of infection at this time - cont Bumex 2mg IV BID, will continue naik for strict I/Os - prn IV ativan to assist with BiPAP tolerance - blood gas showing improving pCO2 Monitor intake/output every shift, daily weights Subcu Lovenox for DVT prophylaxis N.p.o. while on BiPAP #Acute on Chronic HF - EF 35-40% (04/18/23) --> 50-55% 11/04/23 - long hx of diuretics noncompliance - cont IV bumex - sodium and fluid restriction #DM II with obesity Monitor BSG every 6 hours while on BiPAP, goal is [id number] Review of previous admission shows her to be recurrently hypoglycemic with any basal insulin, will hold basal insulin for now Start CF of 50 and CR of 15 every 6 hours Adjust regimen as needed #HTN- improving Noted to be significant hypertensive since arrival to the ED with systolic blood pressure as high as the 220s Patient confirms she did not take her a.m. medications which will include losartan, metoprolol, and Bumex - d/c nitro paste, metoprolol dose increased to home dose, cont losartan Continue with twice daily IV Bumex #Left foot contusion Patient noted to have bruising at the distal aspects of the left second and fourth toes Reports hitting her left foot off of the wall while trying to turn in her wheelchair at home Does not look grossly infected at this time we will hold on antibiotics - x-ray of the left foot does not reveal any bony abnormalities cont with as needed Tylenol for pain #Hypothyroidism - cont levothyroxine #Insomnia - started on melatonin #DVT ppx: lovenox Admission and Anticipated Discharge Date Admission Date: June 09, 2024 Subjective No acute events overnight She did not tolerate BiPAP despite ativan Currently no new complaints Physical Exam Physical Exam: Gen: lying in bed comfortable, speaking in full sentences though intermittently mild conversational dyspnea is noted HEENT: NC/AT, MMM Lungs: crackles still present CVS: s1s2 normal, tachycardic Abd: soft, nontender, normal bowel sounds Ext: + edema (improving), left toe bruising Psych: pleasant, communicating appropriately Results & Data Results & Data Vital Signs (Past 12 Hours) Vital Signs Temp Pulse Pulse Resp BP BP Pulse Ox 06/11/24 07:55 37.3 C 78 18 173/88 H 97 06/11/24 03:36 36.9 C 66 16 162/76 H 95 06/11/24 01:10 72 30 H 97 06/10/24 23:59 79 174/80 H 06/10/24 23:15 36.8 C 73 17 184/80 H 92 06/10/24 22:05 71 06/10/24 20:08 36.8 C 77 25 H 173/84 H 90 O2 Del Method O2 Flow Rate FiO2 06/11/24 07:55 Room Air 06/11/24 03:36 Nasal Cannula 1 06/11/24 01:10 30 06/10/24 23:59 06/10/24 23:15 Nasal Cannula 1 06/10/24 22:05 06/10/24 20:08 Nasal Cannula 1 PG Care Time/CCT Total # of Minutes Spent Total Time Spent with Patient: Total time spent is greater than 50% in coordination of care (as documented) at patient's floor/unit and/or counseling patient: Coding Level of Care Code 28069 SUB INP/OBS CARE 2/35MIN Diagnoses Acute on chronic respiratory failure with hypoxia and hypercapnia J96.21; J96.22 Acute heart failure with preserved ejection fraction I50.31 Type 2 diabetes mellitus with obesity E11.69; E66.9 Foot contusion S90.30XA Hypothyroidism E03.9
[2024-06-11] MEDS: LEVOTHYROXINE SODIUM 150 MCG TABLET PO SCH (09:29)
[2024-06-11] MEDS: ALBUT/IPRATROP 3MG/0.5MG NEB 3 ML VIAL NEB PRN (11:01)
[2024-06-11] MEDS ORDERED: MELATONIN 3 MG TAB PO PRN (13:20)
[2024-06-12 06:34] LABS: Basophils # (auto) 0.03 K/uL (0.00-0.20); Basophils % (auto) 0.5 %; Eosinophils # (auto) 0.15 K/uL (0.00-0.50); Eosinophils % (auto) 2.5 %; Hematocrit (blood only) 32.9 % (37.0-47.0); Hemoglobin 10.3 g/dl (12.0-16.0); Immature Granulocytes # (auto) 0.02 K/uL (0.01-0.20); Immature Granulocytes % (auto) 0.3 %; Lymphocytes # (auto) 0.94 K/uL (1.20-3.40); Lymphocytes % (auto) 15.8 %; Mean Corpuscular Hemoglobin 26.7 pg (25.0-34.0); Mean Corpuscular Hgb Conc 31.3 g/dL (32.0-36.0); Mean Corpuscular Volume 85.2 fL (80.0-100.0); Mean Platelet Volume 11.1 fL (9.4-12.4); Monocytes # (auto) 0.43 K/uL (0.11-0.59); Monocytes % (auto) 7.2 %; Neutrophils # (auto) 4.37 K/uL (1.40-6.50); Neutrophils % (auto) 73.7 %; Platelet Count 209 K/uL (130-400); RDW Coefficient of Variation 15.1 % (11.5-14.5); Red Blood Count 3.86 M/uL (4.20-5.40); White Blood Count 5.94 K/ul (4.8-10.8)
[2024-06-12 06:45] LABS: Prothrombin Time 10.7 Seconds (9.0-12.0)
[2024-06-12 06:49] LABS: Alanine Aminotransferase 6 U/L (7-52); Albumin Level 3.4 gm/dl (3.4-5.0); Alkaline Phosphatase 49 U/L (34-104); Aspartate Aminotransferase 13 U/L (13-39); BUN Creatinine Ratio 21.2 (10-20); Bilirubin,Total 0.6 mg/dl (0.2-1.0); Blood Urea Nitrogen 24 mg/dl (6-23); Calcium 8.4 mg/dl (8.6-10.3); Carbon Dioxide > 45 mmol/L (21-32); Chloride 89 mmol/L (98-107); Creatinine Clr Calc Pharmacy 46.7 ml/min; Est GFR (African American) 54.7 ml/min; Est GFR (Non-African American) 47.2 ml/min; Globulin 3.5 gm/dl (2.5-4.0); Glucose 161 mg/dl (70-99(Fasting)); Magnesium 1.6 mg/dl (1.7-2.4); Phosphorus 4.3 mg/dl (2.5-4.9); Potassium 3.6 mmol/L (3.5-5.1); Sodium 141 mmol/L (136-145); Total Protein 6.9 gm/dl (6.0-8.3)
--- NOTE | 2024-06-12 07:57 | Hospitalist Progress Note ---
Date of Service June 12, 2024 Assessment & Plan (1) Acute on chronic respiratory failure with hypoxia and hypercapnia: (2) Acute heart failure with preserved ejection fraction: (3) Type 2 diabetes mellitus with obesity: (4) Foot contusion: (5) Hypothyroidism: Plan: Continue levothyroxine Plan 78-year-old female with PMH of HFrEF, HTN, cardiomyopathy, severe COPD, chronic hypoxic respiratory failure on baseline 2 L nasal cannula, hypothyroidism, dyslipidemia, diabetes, asthma, and arthritis who presented to the [facility] ED via EMS on 06/09/2024 with complaints of acute on chronic shor tness of breath with increased oxygen requirements. She stated that she has been noncompliant with her bumex at home as she lives at home alone and is unable to get to the bathroom quickly. Her breathing has been worsening over the past 2 weeks. In the ED she was hypertensive, tachycardic, tachypneic, and hypoxic to low 80s on 4L NC. Labs were significant for an anion gap of 4 with bicarb of 38, initial high-sensitivity troponin of 24, BNP of 788 (down from 863 as of 05/05/2024), UA with 3+ protein, 2+ glucose, 1+ blood, and 6-10 RBCs, with full respiratory BioFire negative. Chest x-ray was read as cardiomegaly with mild pulmonary edema and small bilateral pleural effusions similar to previous imaging. Left basilar linear densities persist in favor atelectasis. A superimposed pneumonia would be difficult to exclude. She also received 1 mg IV Bumex. Pt is reluctant to be on BiPAP due to claustrophobia but tolerating with small dose of ativan. If she would be unable to tolerate BiPAP she understands that she would continue to clinically decline. She confirms that she is a DNR/DNI and that if she could not tolerate BiPAP she would likely need to be transition to comfort measures. She confirms that her daughter is her primary decision-maker if she cannot make decisions result. *ABG ordered on admission with a pH of 7.20, pCO2 of 96, and pO2 of 99 *Chest x-ray with pulmonary edema on bilateral pleural effusions #Acute on Chronic respiratory failure with hypoxia and hypercapnea #Volume overload - due to noncomplaince with Bumex causing volume overload - currently in PCU was on BiPAP at 12/6 and 40% FiO2, currently weaned to 2L NC , bipap hs ordered but pt does not tolerate it well No signs of infection at this time - Bumex 2mg IV BID transitioned to Bumex 2mg PO BID naik for strict I/Os - prn IV ativan to assist with BiPAP tolerance - blood gas showing improving pCO2 Monitor intake/output every shift, daily weights #Acute on Chronic HF - EF 35-40% (04/18/23) --> 50-55% 11/04/23 - long hx of diuretics noncompliance - pt adequately diuresed with IV, transition to PO - sodium and fluid restriction #Mild contraction alkalosis - diuretic holiday today - 1 dose of acetazolamide today - reassess bicarb in the AM - resume PO bumex once contraction alkalosis is improving #DM II with obesity Monitor BSG every 6 hours while on BiPAP, goal is [id number] Review of previous admission shows her to be recurrently hypoglycemic with any basal insulin, will hold basal insulin for now Start CF of 50 and CR of 15 every 6 hours Adjust regimen as needed #HTN- improving - significantly elevated BP in the ED (220s) due to pt not taking Losartan / Metoprolol / Bumex the day of arrival - home meds resumed - nitro paste d/c-ed - prn hydralazine IV for uncontrolled BP #Left foot contusion Patient noted to have bruising at the distal aspects of the left second and fourth toes Reports hitting her left foot off of the wall while trying to turn in her wheelchair at home Does not look grossly infected at this time we will hold on antibiotics - x-ray of the left foot does not reveal any bony abnormalities cont with as needed Tylenol for pain #Hypothyroidism - cont levothyroxine #Insomnia - started on melatonin #DVT ppx: lovenox subq Admission and Anticipated Discharge Date Admission Date: June 09, 2024 Subjective No acute events overnight Currently no new complaints Physical Exam Physical Exam: Gen: sitting in chair comfortable, speaking in full sentences HEENT: NC/AT, MMM Lungs: crackles still present CVS: s1s2 normal, tachycardic Abd: soft, nontender, normal bowel sounds : + naik Ext: b/l LE chronic skin changes, edema mostly resolved, left toe bruising Psych: pleasant, communicating appropriately Results & Data Results & Data Vital Signs (Past 12 Hours) Vital Signs Temp Pulse Pulse Resp BP BP Pulse Ox 06/12/24 07:31 74 06/12/24 07:25 36.9 C 71 17 178/77 H 95 06/12/24 03:26 71 22 180/90 H 92 06/12/24 03:15 68 25 H 99 06/12/24 02:43 36.5 C 70 21 207/94 H 91 06/12/24 00:10 37.0 C 66 16 169/73 H 90 06/12/24 00:00 06/11/24 21:35 65 06/11/24 20:20 37.0 C 67 16 147/68 H 92 O2 Del Method O2 Flow Rate 06/12/24 07:31 06/12/24 07:25 Nasal Cannula 2 06/12/24 03:26 Nasal Cannula 1.5 06/12/24 03:15 Nasal Cannula 2 06/12/24 02:43 Nasal Cannula 1.5 06/12/24 00:10 Room Air 06/12/24 00:00 Nasal Cannula 1 06/11/24 21:35 06/11/24 20:20 Room Air PG Care Time/CCT Total # of Minutes Spent Total Time Spent with Patient: Total time spent is greater than 50% in coordination of care (as documented) at patient's floor/unit and/or counseling patient: Coding Level of Care Code 12011 SUB INP/OBS CARE 2/MIN Diagnoses Acute on chronic respiratory failure with hypoxia and hypercapnia J96.21; J96.22 Acute heart failure with preserved ejection fraction I50.31 Type 2 diabetes mellitus with obesity E11.69; E66.9 Foot contusion S90.30XA Hypothyroidism E03.9
[2024-06-12] MEDS: METOPROLOL SUCC 50MG EXT REL TAB PO SCH (08:43)
[2024-06-12 09:40] LABS: Allen Test Pos (Pos); Base Excess ABG 25.1 mEq/L (-9-1.8); HCO3 ABG 54 mmol/L (19-24); Oxygen Saturation ABG 93.8 % (90-95); PCO2 ABG 72 mmHg (35-46); PO2 ABG 64 mmHg (80-95); pH ABG 7.48 (7.35-7.45)
[2024-06-12] MEDS: acetaZOLAMIDE 250 MG TAB PO ONE (17:12)
[2024-06-12] MEDS ORDERED: BUMETANIDE 1 MG TAB PO SCH (18:00)
[2024-06-13 06:49] LABS: Basophils # (auto) 0.04 K/uL (0.00-0.20); Basophils % (auto) 0.7 %; Eosinophils # (auto) 0.19 K/uL (0.00-0.50); Eosinophils % (auto) 3.3 %; Hematocrit (blood only) 30.2 % (37.0-47.0); Hemoglobin 9.5 g/dl (12.0-16.0); Immature Granulocytes # (auto) 0.01 K/uL (0.01-0.20); Immature Granulocytes % (auto) 0.2 %; Lymphocytes # (auto) 1.41 K/uL (1.20-3.40); Lymphocytes % (auto) 24.2 %; Mean Corpuscular Hemoglobin 26.8 pg (25.0-34.0); Mean Corpuscular Hgb Conc 31.5 g/dL (32.0-36.0); Mean Corpuscular Volume 85.1 fL (80.0-100.0); Mean Platelet Volume 11.1 fL (9.4-12.4); Monocytes # (auto) 0.55 K/uL (0.11-0.59); Monocytes % (auto) 9.5 %; Neutrophils # (auto) 3.62 K/uL (1.40-6.50); Neutrophils % (auto) 62.1 %; Platelet Count 213 K/uL (130-400); RDW Standard Deviation 46.7 fL (36.4-46.3); Red Blood Count 3.55 M/uL (4.20-5.40); White Blood Count 5.82 K/ul (4.8-10.8)
[2024-06-13 07:10] LABS: BUN Creatinine Ratio 23.9 (10-20); Blood Urea Nitrogen 26 mg/dl (6-23); Calcium 8.2 mg/dl (8.6-10.3); Carbon Dioxide > 45 mmol/L (21-32); Chloride 90 mmol/L (98-107); Creatinine Clr Calc Pharmacy 47.6 ml/min; Est GFR (African American) 57.1 ml/min; Est GFR (Non-African American) 49.3 ml/min; Glucose 162 mg/dl (70-99(Fasting)); Magnesium 1.7 mg/dl (1.7-2.4); Potassium 3.1 mmol/L (3.5-5.1); Sodium 139 mmol/L (136-145)
--- NOTE | 2024-06-13 08:04 | Hospitalist Progress Note ---
Date of Service June 13, 2024 Assessment & Plan (1) Acute on chronic respiratory failure with hypoxia and hypercapnia: Plan: secondary to pulmonary edema from HFpEF was on BiPAP at 12/6 and 40% FiO2, currently weaned to 2L NC , bipap hs ordered but pt does not tolerate it well ,continue albuterol prn No signs of infection/pneumonia at this time, full respiratory BioFire negative. PT has challenges being compliant with Bumex at home Acute on Chronic HF - EF 35-40% (04/18/23) --> 50-55% 11/04/23 - Bumex 2mg IV BID transitioned to Bumex 1mg PO BID sodium and fluid restriction - prn IV ativan to assist with BiPAP tolerance Elevated troponin from demand ischemia do not suspect acute coronary syndrome - (2) Type 2 diabetes mellitus with obesity: Plan: DM II with obesity Monitor BSG every 6 hours while on BiPAP, goal is [id number] Review of previous admission shows her to be recurrently hypoglycemic with any basal insulin, will hold basal insulin for now Start CF of 50 and CR of 15 every 6 hours Adjust regimen as needed (3) Foot contusion: Plan: Left foot contusion Patient noted to have bruising at the distal aspects of the left second and fourth toes Reports hitting her left foot off of the wall while trying to turn in her wheelchair at home Does not look grossly infected at this time we will hold on antibiotics - x-ray of the left foot does not reveal any bony abnormalities cont with as needed Tylenol for pain (4) Hypothyroidism: Plan: Continue levothyroxine Plan in pt stay due to hypokalemia and dose adjustment of bumex Insomnia - started on melatonin DVT ppx: lovenox subq She confirms that she is a DNR/DNI and that if she could not tolerate BiPAP she would likely need to be transition to comfort measures. She confirms that her daughter is her primary decision-maker if she cannot make decisions result. Admission and Anticipated Discharge Date Admission Date: June 09, 2024 Subjective pt looks better than I can remember, she has no shortness of breath she is deconditioned and states she typically does not walk at home Physical Exam Physical Exam: cardiac is regular lungs are clear Results & Data Results & Data Vital Signs (Past 12 Hours) Vital Signs Temp Pulse Pulse Resp BP Pulse Ox O2 Del Method 06/13/24 07:33 65 08/27/24 03:27 98.6 F 64 23 154/69 H 95 Nasal Cannula 06/12/24 22:09 68 06/12/24 22:00 98.4 F 70 16 144/95 H 95 Nasal Cannula 06/12/24 20:08 Nasal Cannula O2 Flow Rate 06/13/24 07:33 06/13/24 03:27 2 06/12/24 22:09 06/12/24 22:00 2 06/12/24 20:08 2 Laboratory Results review cbc review chemistry PG Care Time/CCT Total # of Minutes Spent Total Time Spent with Patient: Total time spent is greater than 50% in coordination of care (as documented) at patient's floor/unit and/or counseling patient: Coding Level of Care Code 01312 SUB INP/OBS CARE 2/35MIN Diagnoses Acute on chronic respiratory failure with hypoxia and hypercapnia J96.21; J96.22 Type 2 diabetes mellitus with obesity E11.69; E66.9 Foot contusion S90.30XA Hypothyroidism E03.9
[2024-06-13] MEDS ORDERED: BUMETANIDE 1 MG TAB PO SCH (09:00)
[2024-06-13] MEDS: POTASSIUM CHLORIDE CRTAB 20 MEQ TABCR PO SCH (09:25)
[2024-06-13] MEDS: POTASSIUM CHLORIDE CRTAB 20 MEQ TABCR PO STA (18:03)
[2024-06-13] MEDS: hydrALAZINE HCL 20 MG/ML VIAL IV PRN (23:02)
--- NOTE | 2024-06-14 07:33 | Hospitalist Progress Note ---
Date of Service June 14, 2024 Assessment & Plan (1) Acute on chronic respiratory failure with hypoxia and hypercapnia: Plan: secondary to pulmonary edema from HFpEF was on BiPAP at 12/6 and 40% FiO2, currently weaned to 2L NC , bipap hs ordered but pt does not tolerate it well ,continue albuterol prn No signs of infection/pneumonia at this time, full respiratory BioFire negative. PT has challenges being compliant with Bumex at home Acute on Chronic HF - EF 35-40% (04/18/23) --> 50-55% 11/04/23 - Bumex 2mg IV BID transitioned to Bumex 1mg PO daily is having some contraction alkalosis sodium and fluid restriction - prn IV ativan to assist with BiPAP tolerance Elevated troponin from demand ischemia do not suspect acute coronary syndrome - (2) Type 2 diabetes mellitus with obesity: Plan: DM II with obesity Monitor BSG every 6 hours while on BiPAP, goal is [id number] Review of previous admission shows her to be recurrently hypoglycemic with any basal insulin, will hold basal insulin for now Start CF of 50 and CR of 15 every 6 hours Adjust regimen as needed (3) Foot contusion: Plan: Left foot contusion Patient noted to have bruising at the distal aspects of the left second and fourth toes Reports hitting her left foot off of the wall while trying to turn in her wheelchair at home Does not look grossly infected - x-ray of the left foot does not reveal any bony abnormalities cont with as needed Tylenol for pain (4) Hypothyroidism: Plan: Continue levothyroxine Plan in pt stay due to dose adjustment of bumex, with dizziness check orthostatic vital signs Insomnia - started on melatonin DVT ppx: lovenox subq She confirms that she is a DNR/DNI and that if she could not tolerate BiPAP she would likely need to be transition to comfort measures. She confirms that her daughter is her primary decision-maker if she cannot make decisions result. Admission and Anticipated Discharge Date Admission Date: June 09, 2024 Subjective pt states she was feeling dizzy this am, maybe spinning, states she gets this from time to time not reproducible, ordered orthostatic blood pressures Physical Exam Physical Exam: cardiac is regular lungs are clear no reproducible dizziness with head movement, no nystagmus Results & Data Results & Data Vital Signs (Past 12 Hours) Vital Signs Temp Pulse Pulse Resp BP Pulse Ox O2 Del Method 06/14/24 07:25 98.4 F 62 19 158/70 H 96 Nasal Cannula 06/14/24 07:02 58 L 06/14/24 03:02 59 L 20 147/68 H 99 Nasal Cannula 06/14/24 00:35 63 06/13/24 22:54 97.5 F L 62 20 182/81 H 98 Nasal Cannula 06/13/24 22:00 Nasal Cannula 06/13/24 20:02 98.6 F 59 L 20 132/61 95 Nasal Cannula O2 Flow Rate FiO2 06/14/24 07:25 2 06/14/24 07:02 06/14/24 03:02 2 06/14/24 00:35 06/13/24 22:54 2 06/13/24 22:00 2 06/13/24 20:02 2 Laboratory Results reviewed chemistry PG Care Time/CCT Total # of Minutes Spent Total Time Spent with Patient: Total time spent is greater than 50% in coordination of care (as documented) at patient's floor/unit and/or counseling patient: Coding Level of Care Code 41445 SUB INP/OBS CARE 2/35MIN Diagnoses Acute on chronic respiratory failure with hypoxia and hypercapnia J96.21; J96.22 Type 2 diabetes mellitus with obesity E11.69; E66.9 Foot contusion S90.30XA Hypothyroidism E03.9
[2024-06-14 07:42] LABS: Magnesium 1.9 mg/dl (1.7-2.4)
[2024-06-14 08:26] LABS: BUN Creatinine Ratio 24.6 (10-20); Calcium 8.3 mg/dl (8.6-10.3); Creatinine Clr Calc Pharmacy 45.2 ml/min; Est GFR (African American) 51.9 ml/min; Est GFR (Non-African American) 44.8 ml/min
[2024-06-14] MEDS: BUMETANIDE 1 MG TAB PO SCH (09:04)
--- NOTE | 2024-06-14 15:41 | Electrocardiogram Report ---
Test Reason : Blood Pressure : */* mmHG Vent. Rate : 89 BPM Atrial Rate : 89 BPM P-R Int : 196 ms QRS Dur : 92 ms QT Int : 390 ms P-R-T Axes : 64 -21 118 degrees QTcB Int : 474 ms Normal sinus rhythm Possible Left atrial enlargement Septal infarct , age undetermined Abnormal ECG When compared with ECG of 10-Jun-2024 01:19, There is no significant change. Confirmed by Sara Romero (Juana) on 06/10/2024 2:09:38 PM Referred By: REFERRED SELF Confirmed By: Sara Romero
[2024-06-15] MEDS: BUMETANIDE 1 MG TAB PO SCH (09:38)
[2024-06-15 10:06] LABS: BUN Creatinine Ratio 27.7 (10-20); Calcium 8.3 mg/dl (8.6-10.3); Creatinine Clr Calc Pharmacy 44.7 ml/min; Est GFR (African American) 51.4 ml/min; Est GFR (Non-African American) 44.3 ml/min; Potassium 4.1 mmol/L (3.5-5.1)
--- NOTE | 2024-06-15 17:14 | Hospitalist Progress Note ---
Date of Service June 15, 2024 Assessment & Plan (1) Acute on chronic respiratory failure with hypoxia and hypercapnia: Plan: secondary to pulmonary edema from HFpEF was on BiPAP at 12/6 and 40% FiO2, currently weaned to 2L NC , bipap hs ordered but pt does not tolerate it well ,continue albuterol prn No signs of infection/pneumonia at this time, full respiratory BioFire negative. PT has challenges being compliant with Bumex at home Acute on Chronic HF - EF 35-40% (04/18/23) --> 50-55% 11/04/23 - Bumex 2mg IV BID transitioned to Bumex 1mg PO daily is having some contraction alkalosis sodium and fluid restriction - prn IV ativan to assist with BiPAP tolerance Elevated troponin from demand ischemia do not suspect acute coronary syndrome - (2) Type 2 diabetes mellitus with obesity: Plan: DM II with obesity Monitor BSG every 6 hours while on BiPAP, goal is [id number] Review of previous admission shows her to be recurrently hypoglycemic with any basal insulin, will hold basal insulin for now Start CF of 50 and CR of 15 every 6 hours Adjust regimen as needed (3) Foot contusion: Plan: Left foot contusion Patient noted to have bruising at the distal aspects of the left second and fourth toes Reports hitting her left foot off of the wall while trying to turn in her wheelchair at home Does not look grossly infected - x-ray of the left foot does not reveal any bony abnormalities cont with as needed Tylenol for pain (4) Hypothyroidism: Plan: Continue levothyroxine Plan in pt stay due to dose adjustment of bumex, constipation double miralax dose in evening of 06/15 Insomnia - started on melatonin DVT ppx: lovenox subq She confirms that she is a DNR/DNI and that if she could not tolerate BiPAP she would likely need to be transition to comfort measures. She confirms that her daughter is her primary decision-maker if she cannot make decisions result. Admission and Anticipated Discharge Date Admission Date: June 09, 2024 Subjective challenging pt , seems to have somatic issues daily that make her feel not ready for home pt states she was feeling dizzy orthostatic check is good also c/o constipation Physical Exam Physical Exam: cardiac is regular lungs are withdiminshed breath sounds at the bases continues without reproducible dizziness with head movement, no nystagmus abd is soft Results & Data Results & Data Vital Signs (Past 12 Hours) Vital Signs Temp Pulse Pulse Resp BP Pulse Ox O2 Del Method 06/15/24 15:58 68 06/15/24 15:09 97.7 F 61 25 H 142/62 H 97 Nasal Cannula 06/15/24 13:43 58 L 06/15/24 13:43 Nasal Cannula 06/15/24 11:17 98.2 F 65 18 138/86 96 Nasal Cannula 06/15/24 08:16 98.6 F 66 18 148/60 H 93 Nasal Cannula O2 Flow Rate 06/15/24 15:58 06/15/24 15:09 06/15/24 13:43 06/15/24 13:43 1 06/15/24 11:17 2 06/15/24 08:16 2 Laboratory Results review cbc review chemistry PG Care Time/CCT Total # of Minutes Spent Total Time Spent with Patient: Total time spent is greater than 50% in coordination of care (as documented) at patient's floor/unit and/or counseling patient: Coding Level of Care Code 73929 SUB INP/OBS CARE 2/35MIN Diagnoses Acute on chronic respiratory failure with hypoxia and hypercapnia J96.21; J96.22 Type 2 diabetes mellitus with obesity E11.69; E66.9 Foot contusion S90.30XA Hypothyroidism E03.9
[2024-06-15] MEDS: POLYETHYLENE (MIRALAX) 17 GM PACK PO ONE (18:17)
[2024-06-16 03:29] VITALS: RESP 18
[2024-06-16 06:33] LABS: BUN Creatinine Ratio 30.6 (10-20); Calcium 8.4 mg/dl (8.6-10.3); Est GFR (African American) 55.9 ml/min; Est GFR (Non-African American) 48.2 ml/min; Potassium 4.5 mmol/L (3.5-5.1)
--- NOTE | 2024-06-16 14:18 | Discharge Summary ---
Discharge Summary Date of Service June 16, 2024 Principal Dx & Hospital Course #1 = Principal Diagnosis (1) Acute on chronic respiratory failure with hypoxia and hypercapnia: (2) Type 2 diabetes mellitus with obesity: (3) Foot contusion: (4) Hypothyroidism: Plan 78-year-old female with PMH of HFrEF, HTN, cardiomyopathy, severe COPD, chronic hypoxic respiratory failure on baseline 2 L nasal cannula, hypothyroidism, dyslipidemia, diabetes, asthma, and arthritis who presented to the [facility] ED via EMS on 06/09/2024 with complaints of acute on chronic shortness of breath with increased oxygen requirements. She stated that she has been noncompliant with her bumex at home as she lives at home alone and is unable to get to the bathroom quickly. Her breathing has been worsening over the past 2 weeks. In the ED she was hypertensive, tachycardic, tachypneic, and hypoxic to low 80s on 4L NC. Labs were significant for an anion gap of 4 with bicarb of 38, initial high-sensitivity troponin of 24, BNP of 788 (down from 863 as of 05/05/2024), UA with 3+ protein, 2+ glucose, 1+ blood, and 6-10 RBCs, with full respiratory BioFire negative. Chest x-ray was read as cardiomegaly with mild pulmonary edema and small bilateral pleural effusions similar to previous imaging. Left basilar linear densities persist in favor atelectasis. A superimposed pneumonia would be difficult to exclude. She also received 1 mg IV Bumex. Pt is reluctant to be on BiPAP due to claustrophobia but tolerating with small dose of ativan. If she would be unable to tolerate BiPAP she understands that she would continue to clinically decline. She confirms that she is a DNR/DNI and that if she could not tolerate BiPAP she would likely need to be transition to comfort measures. She confirms that her daughter is her primary d ecision-maker if she cannot make decisions result. *ABG ordered on admission with a pH of 7.20, pCO2 of 96, and pO2 of 99 *Chest x-ray with pulmonary edema on bilateral pleural effusions #Acute on Chronic respiratory failure with hypoxia and hypercapnea #Volume overload - due to noncomplaince with Bumex causing volume overload was on BiPAP at 12/6 and 40% FiO2, currently weaned to 2L NC , bipap hs ordered but pt does not tolerate it well thus outpatient bipap not set up. pt will need outpatient sleep study for further evaluation No signs of infection at this time - Bumex 2mg IV BID transitioned to Bumex 1mg PO daily, bicarb - naik removed and pt is micturating well - pt needs BiPAP but she is refusing to wear it - blood gas showing improving pCO2 #Acute on Chronic HF - EF 35-40% (04/18/23) --> 50-55% 11/04/23 - long hx of diuretics noncompliance - pt adequately diuresed with IV, transition to PO - sodium and fluid restriction #Mild contraction alkalosis - bicarb stable - discharge on Bumex po #DM II with obesity resume home meds #HTN- improving - significantly elevated BP in the ED (220s) due to pt not taking Losartan / Metoprolol / Bumex the day of arrival - cont home meds on discharge #Left foot contusion Patient noted to have bruising at the distal aspects of the left second and fourth toes Reports hitting her left foot off of the wall while trying to turn in her wheelchair at home Does not look grossly infected at this time we will hold on antibiotics - x-ray of the left foot does not reveal any bony abnormalities cont with as needed Tylenol for pain #Hypothyroidism - cont levothyroxine #Insomnia - continue melatonin #Dispo: discharge home with home services Admission HPI Per Admitting Provider Carli is a a 78-year-old female with PMH of HFrEF, HTN, cardiomyopathy, severe COPD, chronic hypoxic respiratory failure on baseline 2 L nasal cannula, hypothyroidism, dyslipidemia, diabetes, asthma, and arthritis who presented to the [facility] ED via EMS on 06/09/2024 with complaints of acute on chronic shortness of breath with increased oxygen requirements. She was initially noted to be hypoxic with SpO2 in the low 80s on 4 L nasal cannula, hypertensive at 195/105, tachypneic at 27, and otherwise stable. Labs were significant for an anion gap of 4 with bicarb of 38, initial high-sensitivity troponin of 24, BNP of 788 (down from 863 as of 05/05/2024), UA with 3+ protein, 2+ glucose, 1+ blood, and 6-10 RBCs, with full respiratory BioFire negative. Chest x-ray was read as cardiomegaly with mild pulmonary edema and small bilateral pleural effusions similar to previous imaging. Left basilar linear densities persist in favor atelectasis. A superimposed pneumonia would be difficult to exclude. Prior to admission the patient was given 1 mg IV Bumex. Patient was sitting in bed in significant respiratory distress at the start of my exam. Unable to speak in complete sentences, tachypneic, abdominal breathing and accessory muscle use. Saturating in the high 80s on 4 L nasal cannula. She confirms that she has been noncompliant with her p.o. Bumex at home as she lives at home alone and is unable to get to the bathroom quick enough when she takes her Bumex. Has had progressive shortness of breath over the past 2 weeks but much worse over the past week. Nonproductive cough, sensation of tightness in her chest. Denies fever or chills, denies abdominal pain, nausea/vomiting, dysuria, hematuria, diarrhea, melena. Injured her left fourth and second toes when she hit them off her wall while turning her wheelchair around. We had a long discussion again about the need to start her on BiPAP with ongoing diuresis. She is again hesitant to start BiPAP due to severe claustrophobia but is willing to try with small doses of Ativan like last admission. If she would be unable to tolerate BiPAP she understands that she would continue to clinically decline. She confirms that she is a DNR/DNI and that if she could not tolerate BiPAP she would likely need to be transition to comfort measures. She confirms that her daughter is her primary decision-maker if she cannot make decisions result. Please refer to Dr. Chacko's attestation for any changes to the treatment plan Discharge Exam Gen: sitting in chair comfortable, speaking in full sentences HEENT: NC/AT, MMM Lungs: diminished breath sounds CVS: s1s2 normal, RRR Abd: soft, nontender, normal bowel sounds : + naik Ext: b/l LE chronic skin changes, edema mostly resolved, left toe bruising Psych: pleasant, communicating appropriately Discharge Plan Discharge Items Patient Disposition: Home - Home Health Services Reason For Visit: ACUTE ON CHRONIC HYPOXIC RESPIRATORY FAILURE Discharge Diagnosis: heart failure exacerbation Activity: Resume your previous activity Non-emergency contact: Primary Care Provider Call non-emergency contact if: you have any medication questions and your symptoms worsen Follow-up/Referrals: Luann France MD [Primary Care Provider] - Diet: Carb Consistent or DM2 and Heart Healthy Fluids: 1500ml (6 cups) Addtl Attending Provider Instructions: Take diuretics as prescribed, you need BMP checked in 1 week. this needs to be ordered by your primary care doctor. Follow up with your PCP in about 7 to 10 days You need BiPAP at night. Please follow up with your primary care doctor for sleep study to help assist with different masks that can be more comfortable. Pending Studies at Discharge: No Stand-Alone Forms: My [employer], Smoking Cessation Medications and DC Order Prescriptions: Continued metoprolol succinate 200 mg tablet extended release 24 hr 200 mg PO DAILY Qty: 90 3RF losartan 50 mg tablet 50 mg PO QAM Qty: 90 3RF Patient Comments: PT STATED SHE DOES NOT TAKE THIS BP MEDICATION. levothyroxine 150 mcg tablet 150 mcg PO DAILYBB Qty: 90 3RF ipratropium-albuterol 0.5 mg-3 mg(2.5 mg base)/3 mL solution for nebulization 3 ml inhalation Q6R Qty: 90 0RF albuterol sulfate 2.5 mg/0.5 mL solution for nebulization 2.5 mg inhalation Q4H PRN (Reason: shortness of breath or wheezing or cough) bumetanide 1 mg tablet 1 mg PO DAILY Qty: 120 3RF Rx Instructions: Take in addition to .5 mg tablet for a total of 1.5 mg daily. May increase to 2 mg PRN for edema. semaglutide [Rybelsus] 3 mg tablet 3 mg PO WK 0RF albuterol sulfate 90 mcg/actuation HFA aerosol inhaler 2 puff INHALATION Q4H PRN (Reason: cough/wheeze/shortness of breath) Qty: 18 1RF (DME) Spacer for Inhaler Misc See Rx Instructions .Route Qty: 1 0RF Rx Instructions: As directed (DME) OneTouch Verio test strips Strip See Rx Instructions .ROUTE .MEDSUPPLY Qty: 100 3RF Rx Instructions: for once a day testing (DME) pen needle, diabetic [BD Ultra-Fine Micro Pen Needle] 32 gauge x 1/4" n eedle See Rx Instructions .ROUTE .MEDSUPPLY Qty: 50 0RF Rx Instructions: As directed triamcinolone acetonide 0.1 % cream 1 applic EXT BID PRN (Reason: FLARE UPS) Rx Instructions: apply twice daily in thin amounts to scaly, dry skin on front of legs; use for 5-7 days only. meclizine 12.5 mg Tablet 12.5 mg PO TID Qty: 21 0RF Levemir FlexPen 100 unit/mL (3 mL) insulin pen 30 unit SUBCUT QAM Discontinued azithromycin 250 mg Tablet 250 mg PO DAILY Qty: 4 0RF Discharge Orders: Discharge Order- CHF (Routine); Ordered 06/16/24 Ordered By: Alina Tamez Admission Data Admit Date/Time: 06/09/24 14:30 Attending Provider: Alina Tamez Admit Provider: Yosef Chacko Primary Care Provider: Luann France Other Providers: Yosef Chacko; [facility]; [facility] Stay Data Consultations 06/09/24 14:17 ED Decision to Admit Stat Pending Results Patient Have Any Pending Studies at Discharge: No Discharge Instructions Given to Patient (Per Discharging Provider) Take diuretics as prescribed, you need BMP checked in 1 week. this needs to be ordered by your primary care doctor. Follow up with your PCP in about 7 to 10 days You need BiPAP at night. Please follow up with your primary care doctor for sleep study to help assist with different masks that can be more comfortable. Total Time Total Time Spent Total Time Spent (In Minutes): 45 Coding Level of Care Code 00750 INP/OBS DISCH >30 MIN Diagnoses Acute on chronic respiratory failure with hypoxia and hypercapnia J96.21; J96.22 Type 2 diabetes mellitus with obesity E11.69; E66.9 Foot contusion S90.30XA Hypothyroidism E03.9
[2024-06-17 02:22] VITALS: TEMP 97.7
[2024-06-17 07:31] VITALS: O2SAT 96
[2024-06-17 07:34] LABS: BUN Creatinine Ratio 32.2 (10-20); Calcium 8.7 mg/dl (8.6-10.3); Creatinine Clr Calc Pharmacy 46.3 ml/min; Est GFR (African American) 53.5 ml/min; Est GFR (Non-African American) 46.2 ml/min; Potassium 4.2 mmol/L (3.5-5.1)
--- NOTE | 2024-06-17 09:05 | Hospitalist Progress Note ---
Date of Service June 16, 2024 Pt discharged but did not leave Assessment & Plan (1) Acute on chronic respiratory failure with hypoxia and hypercapnia: (2) Type 2 diabetes mellitus with obesity: (3) Foot contusion: (4) Hypothyroidism: Plan 78-year-old female with PMH of HFrEF, HTN, cardiomyopathy, severe COPD, chronic hypoxic respiratory failure on baseline 2 L nasal cannula, hypothyroidism, dyslipidemia, diabetes, asthma, and arthritis who presented to the [facility] ED via EMS on 06/09/2024 with complaints of acute on chronic shortness of breath with increased oxygen requirements. She stated that she has been noncompliant with her bumex at home as she lives at home alone and is unable to get to the bathroom quickly. Her breathing has been worsening over the past 2 weeks. In the ED she was hypertensive, tachycardic, tachypneic, and hypoxic to low 80s on 4L NC. Labs were significant for an anion gap of 4 with bicarb of 38, initial high-sensitivity troponin of 24, BNP of 788 (down from 863 as of 05/05/2024), UA with 3+ protein, 2+ glucose, 1+ blood, and 6-10 RBCs, with full respiratory BioFire negative. Chest x-ray was read as cardiomegaly with mild pulmonary edema and small bilateral pleural effusions similar to previous imaging. Left basilar linear densities persist in favor atelectasis. A superimposed pneumonia would be difficult to exclude. She also received 1 mg IV Bumex. Pt is reluctant to be on BiPAP due to claustrophobia but tolerating with small dose of ativan. If she would be unable to tolerate BiPAP she understands that she would continue to clinically decline. She confirms that she is a DNR/DNI and that if she could not tolerate BiPAP she would likely need to be transition to comfort measures. She confirms that her daughter is her primary decision-maker if she cannot make decisions result. *ABG ordered on admission with a pH of 7.20, pCO2 of 96, and pO2 of 99 *Chest x-ray with pulmonary edema on bilateral pleural effusions #Acute on Chronic respiratory failure with hypoxia and hypercapnea #Volume overload - due to noncomplaince with Bumex causing volume overload was on BiPAP at 12/6 and 40% FiO2, currently weaned to 2L NC , bipap hs ordered but pt does not tolerate it well thus outpatient bipap not set up. pt will need outpatient sleep study for further evaluation No signs of infection at this time - Bumex 2mg IV BID transitioned to Bumex 1mg PO daily, bicarb - naik removed and pt is micturating well - pt needs BiPAP but she is refusing to wear it - blood gas showing improving pCO2 #Acute on Chronic HF - EF 35-40% (04/18/23) --> 50-55% 11/04/23 - long hx of diuretics noncompliance - pt adequately diuresed with IV, transition to PO - sodium and fluid restriction #Mild contraction alkalosis - bicarb stable - discharge on Bumex po #DM II with obesity resume home meds #HTN- improving - significantly elevated BP in the ED (220s) due to pt not taking Losartan / Metoprolol / Bumex the day of arrival - cont home meds on discharge #Left foot contusion Patient noted to have bruising at the distal aspects of the left second and fourth toes Reports hitting her left foot off of the wall while trying to turn in her wheelchair at home Does not look grossly infected at this time we will hold on antibiotics - x-ray of the left foot does not reveal any bony abnormalities cont with as needed Tylenol for pain #Hypothyroidism - cont levothyroxine #Insomnia - continue melatonin #Dispo: discharge home with home services Admission and Anticipated Discharge Date Admission Date: June 09, 2024 Physical Exam Physical Exam: Gen: sitting in chair comfortable, speaking in full sentences HEENT: NC/AT, MMM Lungs: diminished breath sounds CVS: s1s2 normal, RRR Abd: soft, nontender, normal bowel sounds : + naik Ext: b/l LE chronic skin changes, edema mostly resolved, left toe bruising Psych: pleasant, communicating appropriately Results & Data Results & Data Vital Signs (Past 12 Hours) Vital Signs Temp Pulse Pulse Resp BP Pulse Ox O2 Del Method 06/17/24 07:37 65 06/17/24 07:37 Nasal Cannula 06/17/24 07:30 36.5 C 66 18 159/68 H 96 Nasal Cannula 06/17/24 02:19 36.5 C 63 18 153/68 H 97 Nasal Cannula 06/16/24 22:18 36.6 C 59 L 18 154/70 H 95 Nasal Cannula 06/16/24 22:10 60 O2 Flow Rate 06/17/24 07:37 06/17/24 07:37 1 06/17/24 07:30 06/17/24 02:19 1 06/16/24 22:18 1 06/16/24 22:10 PG Care Time/CCT Total # of Minutes Spent Total Time Spent with Patient: Total time spent is greater than 50% in coordination of care (as documented) at patient's floor/unit and/or counseling patient: Coding Level of Care Code 19209 SUB INP/OBS CARE 2/35MIN Diagnoses Acute on chronic respiratory failure with hypoxia and hypercapnia J96.21; J96.22 Type 2 diabetes mellitus with obesity E11.69; E66.9 Foot contusion S90.30XA Hypothyroidism E03.9
[2024-06-17 10:25] VITALS: BP 154/69; PULSE 66
== END 2024-06-17 10:49 | disposition home health service (06) | DRG 291 ==
LOC: ED 12:08 → EDINP 14:30 → SUATTDRO 14:30 → 2E 18:28

== ENCOUNTER 2024-07-13 03:15 | Inpatient (IN) ==
--- NOTE | 2024-07-13 03:21 | Emergency Department Note ---
ED Visit Note I was consulted by the Advanced Practice Provider. The case was discussed at length. I personally made/approved the management plan and take responsibility for the patient management. I performed a substantive portion of the visit. This includes the aspects of: [-I independently interpreted the following studies:][Chest x-ray shows a left pleural effusion and some mild CHF. There is no pneumothorax or obvious focal pneumonia.] Patient presents dyspneic and hypoxic. She has a history of CHF. She appears to be fluid overloaded. She received IV Lasix, nitroglycerin paste. She was placed on BiPAP. Hospitalization is indicated. .
--- NOTE | 2024-07-13 03:34 | Emergency Department Note ---
History of Present Illness General Chief complaint: Shortness of Breath/Dyspnea Stated complaint: SHORTNESS OF BREATH Time Seen by Provider: 07/13/24 03:18 History of Present Illness This is a 78-year-old female presenting to the emergency department via EMS from home for evaluation of difficulty breathing. Patient has extensive medical history of chronic respiratory disease and heart failure. She is minimally adherent to her medications, and has had several admissions for similar episodes this year alone. The patient states that she has had worsening symptoms over the past 2 or 3 days, and things worsened tonight. No fever at home. She does not weigh herself to determine if she is retaining fluid. Her last weight in the EMR was 87 kg 17 days ago and today she is 95 kg. The patient typically wears 2 L oxygen at night, however she was reportedly in the 50s for EMS on arrival to the home. Patient lives at home by herself and has been resistant to assisted care previously. She occasionally has home health come into the home. Home Medications Medication Instructions Recorded Confirmed Type Spacer for Inhaler #1 ea 09/04/22 05/25/24 Rx blood sugar diagnostic (OneTouch #100 ea 12/17/22 05/25/24 Rx Verio test strips) pen needle, diabetic 32 gauge x #50 ea 12/17/22 05/25/24 Rx 1/4" (BD Ultra-Fine Micro Pen Needle) albuterol sulfate 90 mcg/actuation 2 puff inhalation Q4H PRN 03/14/23 06/26/24 Rx aerosol inhaler cough/wheeze/shortness of breath #18 grams triamcinolone acetonide 0.1 % 1 applic EXT BID PRN FLARE UPS 04/17/23 05/25/24 History topical cream metoprolol succinate 200 mg 200 mg PO DAILY #90 tabs 07/13/23 05/25/24 Rx tablet,extended release 24 hr losartan 50 mg tablet 50 mg PO QAM #90 tabs 09/03/23 05/25/24 Rx meclizine 12.5 mg tablet 12.5 mg PO TID #21 tabs 01/05/24 05/25/24 Rx bumetanide 1 mg tablet 1 mg PO DAILY #120 tabs 01/10/24 05/25/24 Rx levothyroxine 150 mcg tablet 150 mcg PO DAILYBB #90 tabs 01/17/24 05/25/24 Rx albuterol sulfate 2.5 mg/0.5 mL 2.5 mg inhalation Q4H PRN 02/07/24 06/26/24 History solution for nebulization shortness of breath or wheezing or cough insulin detemir U-100 100 unit/mL 30 unit subcut QAM 05/08/24 05/25/24 History (3 mL) subcutaneous pen (Levemir FlexPen) bisacodyl 10 mg rectal suppository 10 mg DC DAILY PRN constipation 06/17/24 06/26/24 Rx #30 ea polyethylene glycol 3350 17 17 g PO DAILY PRN constipation 06/17/24 Rx gram/dose oral powder (Miralax) #850 grams sennosides 8.6 mg-docusate sodium 1 tab-cap PO BID #60 tabs 06/17/24 Rx 50 mg tablet (Senna-S) ipratropium 0.5 mg-albuterol 3 mg 3 ml inhalation Q6R #90 mL 07/11/24 Rx (2.5 mg base)/3 mL nebulization soln Allergies Allergy/AdvReac Type Severity Reaction Status Date / Time aspirin Allergy Severe HIVES; Verified 06/26/24 12:57 DIFFICULTY BREATHING colchicine Allergy Severe Difficulty Verified 06/26/24 12:57 Breathing Iodinated Contrast Media Allergy Intermediate Rash Verified 06/26/24 12:57 Benzodiazepines Allergy Unknown Unknown Verified 06/26/24 12:57 diltiazem Allergy Unknown UNKNOWN Verified 06/26/24 12:57 REACTION doxycycline Allergy Unknown Unknown Verified 06/26/24 12:57 melon Allergy Unknown Unknown Verified 06/26/24 12:57 nifedipine Allergy Unknown UNKNOWN Verified 06/26/24 12:57 REACTION simvastatin Allergy Unknown UNKNOWN Verified 06/26/24 12:57 REACTION PER PT vancomycin Allergy Unknown UNKNOWN Verified 06/26/24 12:57 REACTION metformin AdvReac Intermediate Diarrhea Verified 06/26/24 12:57 Past Med/Surg History Problem List (Updated 07/13/24 @ 04:24 by Jeff Wheeler PA-C) Foot contusion Acute heart failure with preserved ejection fraction (Acute) Acute on chronic respiratory failure with hypoxia and hypercapnia (Acute) Heart failure with improved ejection fraction (HFimpEF) Pneumonia (Acute) Acute heart failure with reduced ejection fraction (HFrEF, <= 40%) (Acute) Vertigo Sensorineural hearing loss (SNHL) of left ear with restricted hearing of right ear Type 2 diabetes mellitus with obesity Benign positional vertigo Acute and chronic respiratory failure (Acute) HFrEF (heart failure with reduced ejection fraction) Anemia Acute on chronic heart failure with preserved ejection fraction (HFpEF) Hypercapnic respiratory failure, chronic Pleural effusion (Acute) CHF (congestive heart failure) (Acute) Pericardial effusion Pulmonary hypertension Atypical nevus of thoracic region Cardiomyopathy Contracture of right knee Impacted fracture of right hip (~04/19/23) Proteinuria Bronchiectasis Chronic respiratory failure with hypoxia, on home O2 therapy O2 prn at 2L Hypothyroidism Obstructive lung disease Asthma Migraine headache Arthritis Venous stasis dermatitis of both lower extremities Nephrotic range proteinuria Shortness of breath Acute maculopapular rash Dyslipidemia Obstructive pattern present on pulmonary function testing Ambulatory dysfunction Diastolic heart failure HX Medical History COPD (chronic obstructive pulmonary disease) Diabetes mellitus with albuminuria Abdominal distension Epistaxis Acute on chronic systolic heart failure Near syncope Hydronephrosis, bilateral Acute UTI Renal cyst, left Pleuritic chest pain 4x in the past year (HFpEF) heart failure with preserved ejection fraction Acute and chronic respiratory failure with hypoxia Lymphedema Chest pain hx-"more pleuritic pain, not cardiac related" Type 2 diabetes mellitus with peripheral neuropathy Chronic edema Hypomagnesemia Hypokalemia Elevated serum globulin level Multiple drug allergies Wheelchair bound Right knee DJD Lower extremity edema Hx of thyroid cancer History of seizures as a child Financial difficulties Hypothyroidism, postablative Pleurisy without effusion have been hospitalized 4x in the past year for this History of ectopic Hx of papillary thyroid carcinoma Gait abnormality Vitamin D deficiency Hx of pleurisy Surgical History History of D&C Hx of thyroidectomy Hx of brain surgery 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 during the procedure Hx of section Family History Father Stroke Mother Dementia Diabetes Sister Macular degeneration Brother Macular degeneration Other TIA (transient ischemic attack) Denies family history of Ovarian cancer Prostate cancer Myocardial infarction Breast cancer Colorectal cancer Social History Smoking Status: Never smoker Second Hand Exposure: No; Do You Dip or Chew Tobacco: No; Hx Alcohol Use: No Hx Substance Use: No Preferred Language: Stateless Communication Ability: Effective Visual Impairment: No Limitations Hearing Ability: Normal Prn Occupational Therapist Required: No Beliefs That Will Affect Care: None marital status: / Current Living Situation: Alone Current Living Situation Comment: Lives alone in house current occupational status: retired 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 Feels Safe at Home: Yes Childhood Exposure to Second-Hand Smoke: No Diet: regular Dental Care, Regularly: Yes Physical Activity Frequency: Does not Exercise Seatbelt Use: always Sunscreen Use: No Assistive Devices: Stair Lift and Wheelchair Review of Systems A total of 10 systems reviewed and were otherwise negative Physical Exam Vital Signs Vital Signs - 24 hr 07/13/24 03:26 07/13/24 03:28 07/13/24 03:34 Temperature 36.5 C Temperature Source Oral Pulse Rate 106 H 110 H Pulse Rate from SpO2 Sensor Respiratory Rate 26 H Respiratory Effort / Characteristics Respiratory Depth Deep Respiratory Pattern Blood Pressure 205/112 H Blood Pressure Mean 143 Pulse Oximetry 54 L Oxygen Delivery Method Nasal Cannula Nasal Cannula Oxygen Flow Rate 2 2 Fraction of Inspired Oxygen Sepsis Recent Fever Within 48 Hours No Sepsis New/Unexplained Change in Mental Status No Sepsis Action Taken by Nursing Physician Notified Oxygen Flow Rate - Titration 6 Pulse Oximetry Post Tiitration 98 07/13/24 04:00 07/13/24 04:15 07/13/24 04:30 Temperature Temperature Source Pulse Rate 105 H 104 H 104 H Pulse Rate from SpO2 Sensor 103 H Respiratory Rate 36 H 30 H Respiratory Effort / Characteristics Respiratory Depth Respiratory Pattern Blood Pressure 168/111 H 174/104 H 175/95 H Blood Pressure Mean 130 137 138 Pulse Oximetry 93 99 94 Oxygen Delivery Method Nasal Cannula Nasal Cannula Oxygen Flow Rate 5 5 Fraction of Inspired Oxygen Sepsis Recent Fever Within 48 Hours Sepsis New/Unexplained Change in Mental Status Sepsis Action Taken by Nursing Oxygen Flow Rate - Titration Pulse Oximetry Post Tiitration 07/13/24 04:47 Temperature Temperature Source Pulse Rate 102 H Pulse Rate from SpO2 Sensor Respiratory Rate 30 H Respiratory Effort / Characteristics Spontaneous Labored Respiratory Depth Normal Respiratory Pattern Regular Tachypnea Blood Pressure Blood Pressure Mean Pulse Oximetry 98 Oxygen Delivery Method Oxygen Flow Rate Fraction of Inspired Oxygen 50 Sepsis Recent Fever Within 48 Hours Sepsis New/Unexplained Change in Mental Status Sepsis Action Taken by Nursing Oxygen Flow Rate - Titration Pulse Oximetry Post Tiitration VITALS: Vitals are noted on the nurse's note and reviewed by myself. Vital signs stable. GENERAL: White female who appears short of breath on presentation. She is able to answer questions. HEAD: Normocephalic atraumatic. MOUTH: Mucous membranes moist. Tonsils are not enlarged. Pharynx without erythema, blood, or exudate. Uvula midline. Airway patent. NECK: Supple without nuchal rigidity. No lymphadenopathy. No thyromegaly. Cervical spine is nontender. HEART: Regular rate and rhythm without murmurs gallops or rubs. LUNGS: Breath sounds diminished with crackles throughout ABDOMEN: Positive normal bowel sounds x 4. Soft, nontender, without masses or organomegaly. No guarding or rebound tenderness. MUSCULOSKELETAL: Notable 3+ bilateral lower extremity edema with slight erythema. NEURO: Patient was alert and oriented to person place and time. CN II through XII grossly intact. Course Administered Medications Discontinued Medications Acetaminophen (Acetaminophen 500 Mg Tab) 1,000 mg PO NOW STA Stop: 07/13/24 03:52 Last Admin: 07/13/24 03:57 Dose: Not Given Documented By: Furosemide (Furosemide 40 Mg/4 Ml Vial) 40 mg IV ONE ONE Stop: 07/13/24 03:45 Last Admin: 07/13/24 03:55 Dose: 40 mg Documented By: Furosemide (Furosemide 40 Mg/4 Ml Vial) 40 mg IV ONE ONE Stop: 07/13/24 04:18 Last Admin: 07/13/24 04:20 Dose: 40 mg Documented By: Lorazepam (Lorazepam 1 Mg/1 Ml Syr Ed Inj Use) 0.5 mg IV ONE STA Stop: 07/13/24 04:12 Last Admin: 07/13/24 04:19 Dose: 0.5 mg Documented By: Nitroglycerin (Nitroglycerin 2% Ointment 30gm Tube) 2 inch EXT NOW ONE Stop: 07/13/24 03:37 Last Admin: 07/13/24 03:47 Dose: 2 inch Documented By: Critical Care Time I have personally spent greater than 42 minutes of critical care time in the direct management of this patient. This includes bedside care, interpretation of diagnostic studies, and testing, discussion with consultants, patient, and family members, and other required patient management activities. This 42 minutes is in excess of all separately billable procedures. Medical Decision Making Differential Diagnosis Differential diagnosis includes, but is not limited to: Myocardial infarction, dysrhythmia, pericarditis, pneumothorax, aortic aneurysm/dissection, DVT/PE, anxiety, GERD, PUD, electrolyte imbalance, thyroid disorder, pneumonia, bronchitis, pancreatitis, and others Laboratory Data 07/13/24 03:32 07/13/24 03:32 Lab Results 07/13/24 07/13/24 Range/Units 03:32 03:38 WBC 8.78 (4.8-10.8) K/ul RBC 3.86 L (4.20-5.40) M/uL Hgb 10.4 L (12.0-16.0) g/dl Hct 34.3 L (37.0-47.0) % MCV 88.9 (80.0-100.0) fL MCH 26.9 (25.0-34.0) pg MCHC 30.3 L (32.0-36.0) g/dL RDW Std Deviation 46.6 H (36.4-46.3) fL RDW Coeff of Smith 14.5 (11.5-14.5) % Plt Count 284 (130-400) K/uL MPV 10.3 (9.4-12.4) fL Immature Gran % (Auto) 0.3 % Neut % (Auto) 79.3 % Lymph % (Auto) 11.8 % [place] % (Auto) 5.8 % Eos % (Auto) 2.2 % Baso % (Auto) 0.6 % Neut # (Auto) 6.96 H (1.40-6.50) K/uL Lymph # (Auto) 1.04 L (1.20-3.40) K/uL [place] # (Auto) 0.51 (0.11-0.59) K/uL Eos # (Auto) 0.19 (0.00-0.50) K/uL Baso # (Auto) 0.05 (0.00-0.20) K/uL Immature Gran # (Auto) 0.03 (0.01-0.20) K/uL PT 10.7 (9.0-12.0) Seconds INR 1.0 (0.9-1.1) APTT 29 (21-31) Seconds PTT Ratio 1.1 VBG pH 7.28 L (7.36-7.41) VBG pCO2 80 H (38-50) mmHg VBG pO2 43 mmHg VBG HCO3 38 mmol/L VBG O2 Saturation 72.0 % VBG Base Excess 7.7 mEq/L Sodium 136 (136-145) mmol/L Potassium 4.4 (3.5-5.1) mmol/L Chloride 95 L (98-107) mmol/L Carbon Dioxide 39 H (21-32) mmol/L Anion Gap 2 L (3-11) BUN 19 (6-23) mg/dl Creatinine 0.99 (0.6-1.2) mg/dl Est Cr Clr Drug Dosing 55.8 ml/min Est GFR ( Amer) 64.2 ml/min Est GFR (Non-Af Amer) 55.4 ml/min BUN/Creatinine Ratio 19.2 (10-20) Glucose 259 H (70-99(Fasting)) mg/dl Lactate 0.8 (0.4-2.0) mmol/L Calcium 9.1 (8.6-10.3) mg/dl Magnesium 2.0 (1.7-2.4) mg/dl Total Bilirubin 0.6 (0.2-1.0) mg/dl AST 13 (13-39) U/L ALT 7 (7-52) U/L Alkaline Phosphatase 65 (34-104) U/L Troponin I High Sens 27.6 H (0-14) pg/ml B-Natriuretic Peptide 1084 H (0-100) pg/ml Total Protein 8.0 (6.0-8.3) gm/dl Albumin 4.0 (3.4-5.0) gm/dl Globulin 4.0 (2.5-4.0) gm/dl Albumin/Globulin Ratio 1.0 (0.9-2) Procalcitonin < 0.02 (0-0.5) ng/ml Adenovirus (PCR) Not Detected (NotDetected) B. pertussis DNA (PCR) Not Detected (NotDetected) B.parapertussis DNA PCR Not Detected (NotDetected) C. pneumoniae DNA (PCR) Not Detected (NotDetected) Coronavirus OC43 (PCR) Not Detected (NotDetected) Coronavirus HKU1 (PCR) Not Detected (NotDetected) Coronavirus 229E (PCR) Not Detected (NotDetected) SARS-CoV-2 (PCR) Not Detected (NotDetected) Coronavirus NL63 (PCR) Not Detected (NotDetected) Human Metapneumovir PCR Not Detected (NotDetected) Influenza Type A (PCR) Not Detected (NotDetected) Influenza Type B (PCR) Not Detected (NotDetected) M. pneumoniae (PCR) Not Detected (NotDetected) Parainfluenza 1 (PCR) Not Detected (NotDetected) Parainfluenza 2 (PCR) Not Detected (NotDetected) Parainfluenza 3 (PCR) Not Detected (NotDetected) Parainfluenza 4 (PCR) Not Detected (NotDetected) RSV (PCR) Not Detected (NotDetected) Entero/Rhino (PCR) Not Detected (NotDetected) ECG Data Attestation: I personally reviewed and interpreted this ECG as follows: Indication: + SOB/dyspnea Additional Comments: Sinus tachycardia at 107 bpm Possible left atrial enlargement Lateral T wave abnormality No significant change from EKG 10 June 2024 MDM Narrative Physical exam and history were performed. Nursing notes, EMR, and Medication List were personally reviewed. No social concerns were identified as barriers to patients care. Patient appears to have difficulty breathing bringing her to the ER. On arrival to the ER she is saturating around 70% and was placed on 6 L nasal cannula. This did get her to 92%. She seems quite fluid overloaded based on exam and recent weights. Patient has difficulty taking her Bumex at home as she has ambulatory issues and the Bumex causes her to go to the bathroom very frequently. Nass[place] catheter was placed. IV access was established and labs were obtained. An order was placed for continuous cardiac monitoring. The monitor shows a rate of 105 with sinus tach rhythm. Patient's blood work is as above and was reviewed. She does not have a significantly elevated white blood cell count. She is mildly anemic at 10.4 which is improved from hemoglobin a month ago that was 9.5. Glucose is 259. Transaminases are not diagnostic. Troponin is elevated at 27, however this is essentially the patient's baseline. BNP is over thousand. Potassium is 4.4 and renal function preserved. Chest x-ray appears to show pleural effusion but no obvious pneumonia or pneumothorax. Patient VBG is concerning as she is acidotic and retaining CO2 with a pCO2 of 80. Because of this patient was transitioned to BiPAP. Patient was also given 2 doses of 40 mg IV Lasix as well as 2 inch Nitropaste. Case was discussed with my attending, Dr. Cook, who remained involved in care and decision making. Escalation of care is felt to be necessary for the patient. Case was discussed with the on-call hospitalist, Dr. Farfan, who agreed to evaluate the patient here in the ER. Please see the hospitalist team dictation for further patient course, plan, disposition. The chart was completed utilizing [employer] Voice Recognition Software. Grammatical errors, random word insertions, pronoun errors, and incomplete sentences are an occasional consequence of this system due to software limitations, ambient noise, and hardware issues. Any formal questions or concerns about the content, text, or information contained within the body of this dictation should be directly addressed to the provider for clarification. Impression & Plan Acute and chronic respiratory failure, Acute heart failure with reduced ejection fraction (HFrEF, <= 40%) Discharge Plan Visit Data Chief Complaint: Shortness of Breath/Dyspnea Stated Complaint: SHORTNESS OF BREATH ED Provider: Michelet Cook ED Midlevel Provider: Jeff Wheeler Discharge Problem: Acute and chronic respiratory failure, Acute heart failure with reduced ejection fraction (HFrEF, <= 40%) Forms Stand Alone Forms: My [facility] [employer] Prescriptions Prescriptions: No Action metoprolol succinate 200 mg tablet extended release 24 hr 200 mg PO DAILY Qty: 90 3RF losartan 50 mg tablet 50 mg PO QAM Qty: 90 3RF Patient Comments: PT STATED SHE DOES NOT TAKE THIS BP MEDICATION. levothyroxine 150 mcg tablet 150 mcg PO DAILYBB Qty: 90 3RF ipratropium-albuterol 0.5 mg-3 mg(2.5 mg base)/3 mL solution for nebulization 3 ml inhalation Q6R Qty: 90 0RF albuterol sulfate 2.5 mg/0.5 mL solution for nebulization 2.5 mg inhalation Q4H PRN (Reason: shortness of breath or wheezing or cough) bumetanide 1 mg tablet 1 mg PO DAILY Qty: 120 3RF Rx Instructions: Take in addition to .5 mg tablet for a total of 1.5 mg daily. May increase to 2 mg PRN for edema. albuterol sulfate 90 mcg/actuation HFA aerosol inhaler 2 puff INHALATION Q4H PRN (Reason: cough/wheeze/shortness of breath) Qty: 18 1RF (DME) Spacer for Inhaler Misc See Rx Instructions .Route Qty: 1 0RF Rx Instructions: As directed (DME) OneTouch Verio test strips Strip See Rx Instructions .ROUTE .MEDSUPPLY Qty: 100 3RF Rx Instructions: for once a day testing (DME) pen needle, diabetic [BD Ultra-Fine Micro Pen Needle] 32 gauge x 1/4" needle See Rx Instructions .ROUTE .MEDSUPPLY Qty: 50 0RF Rx Instructions: As directed triamcinolone acetonide 0.1 % cream 1 applic EXT BID PRN (Reason: FLARE UPS) Rx Instructions: apply twice daily in thin amounts to scaly, dry skin on front of legs; use for 5-7 days only. meclizine 12.5 mg Tablet 12.5 mg PO TID Qty: 21 0RF Levemir FlexPen 100 unit/mL (3 mL) insulin pen 30 unit SUBCUT QAM sennosides-docusate sodium [Senna-S] 8.6-50 mg tablet 1 tab-cap PO BID Qty: 60 0RF polyethylene glycol 3350 [Miralax] 17 gram/dose powder 17 g PO DAILY PRN (Reason: constipation) Qty: 850 0RF bisacodyl 10 mg suppository 10 mg DC DAILY PRN (Reason: constipation) Qty: 30 0RF Referrals Referrals: Luann France MD [Primary Care Provider] -
[2024-07-13] MEDS: NITROGLYCERIN 2% OINTMENT 30GM TUBE EXT ONE (03:47)
[2024-07-13 03:51] LABS: Base Excess VBG 7.7 mEq/L; HCO3 VBG 38 mmol/L; PCO2 VBG 80 mmHg (38-50); PO2 VBG 43 mmHg; pH VBG 7.28 (7.36-7.41)
[2024-07-13] MEDS: FUROSEMIDE 40 MG/4 ML VIAL IV ONE ×2 (03:55→04:20)
[2024-07-13] MEDS: ACETAMINOPHEN 500 MG TAB PO STA (03:55)
[2024-07-13 03:58] LABS: Basophils # (auto) 0.05 K/uL (0.00-0.20); Basophils % (auto) 0.6 %; Eosinophils # (auto) 0.19 K/uL (0.00-0.50); Eosinophils % (auto) 2.2 %; Hematocrit (blood only) 34.3 % (37.0-47.0); Hemoglobin 10.4 g/dl (12.0-16.0); Immature Granulocytes # (auto) 0.03 K/uL (0.01-0.20); Immature Granulocytes % (auto) 0.3 %; Lymphocytes # (auto) 1.04 K/uL (1.20-3.40); Lymphocytes % (auto) 11.8 %; Mean Corpuscular Hemoglobin 26.9 pg (25.0-34.0); Mean Corpuscular Hgb Conc 30.3 g/dL (32.0-36.0); Mean Corpuscular Volume 88.9 fL (80.0-100.0); Mean Platelet Volume 10.3 fL (9.4-12.4); Monocytes # (auto) 0.51 K/uL (0.11-0.59); Monocytes % (auto) 5.8 %; Neutrophils # (auto) 6.96 K/uL (1.40-6.50); Neutrophils % (auto) 79.3 %; Platelet Count 284 K/uL (130-400); RDW Coefficient of Variation 14.5 % (11.5-14.5); RDW Standard Deviation 46.6 fL (36.4-46.3); Red Blood Count 3.86 M/uL (4.20-5.40); White Blood Count 8.78 K/ul (4.8-10.8)
[2024-07-13 04:14] LABS: BUN Creatinine Ratio 19.2 (10-20); Bilirubin,Total 0.6 mg/dl (0.2-1.0); Calcium 9.1 mg/dl (8.6-10.3); Creatinine Clr Calc Pharmacy 55.8 ml/min; Est GFR (African American) 64.2 ml/min; Est GFR (Non-African American) 55.4 ml/min; Potassium 4.4 mmol/L (3.5-5.1)
[2024-07-13] MEDS: LORazepam 1 MG/1 ML SYR ED Inj Use IV STA (04:19)
[2024-07-13 04:21] LABS: Troponin I High Sensitivity 27.6 pg/ml (0-14)
[2024-07-13 04:41] LABS: Adenovirus PCR Not Detected (NotDetected); Bordetella parapertussis PCR Not Detected (NotDetected); Bordetella pertussis PCR Not Detected (NotDetected); Chlamydia pneumoniae PCR Not Detected (NotDetected); Coronavirus 229E PCR Not Detected (NotDetected); Coronavirus CoV-2 (COVID19)PCR Not Detected (NotDetected); Coronavirus HKU1 PCR Not Detected (NotDetected); Coronavirus NL63 PCR Not Detected (NotDetected); Coronavirus OC43PCR Not Detected (NotDetected); Human Metapneumovirus PCR Not Detected (NotDetected); Influenza A PCR Not Detected (NotDetected); Influenza B PCR Not Detected (NotDetected); Mycoplasma pneumoniae PCR Not Detected (NotDetected); Parainfluenza Virus 1 PCR Not Detected (NotDetected); Parainfluenza Virus 2 PCR Not Detected (NotDetected); Parainfluenza Virus 3 PCR Not Detected (NotDetected); Parainfluenza Virus 4 PCR Not Detected (NotDetected); Respiratory Syncytial VirusPCR Not Detected (NotDetected); Rhinovirus/Enterovirus PCR Not Detected (NotDetected)
--- NOTE | 2024-07-13 04:41 | History & Physical Report ---
Date of Service July 13, 2024 Assessment & Plan (1) Acute on chronic respiratory failure with hypoxia and hypercapnia: Plan: Nitropaste 2 inch applied and given Lasix 40 mg IV x 2 in the ED. Patient initially hypoxic in the 50s. VBG acidotic with hypercapnia. Bicarb 39 on BMP. BCx and UCx pending. Patient with difficulty tolerating BiPAP due to history of trauma in the form of asphyxiation. Has done okay with Ativan to tolerate BiPAP in the past. Patient will likely need continued diuresis. With her elevated bicarb could consider Diamox in combination with Lasix. CXR with prominent left sided pleural effusion and vascular congestion - per my read. Consider pulm consult. BiPAP as tolerated Further diuresis based on response/labs, per day team AM VBG ECHO ordered (2) Acute heart failure with preserved ejection fraction: Plan: Patient with difficulty with adherence to medication regimen. Up 7 kg from last admission. Dry weight ~87 kg. Last ECHO 10/2023 with EF 50-55%. Repeat ordered. Is to be on NIPPV outpatient, but cannot tolerate due to trauma history and claustrophobia. (3) Type 2 diabetes mellitus with obesity: Plan: Patient on insulin at home. Med rec not completed, but last says 30 units. Will do 7 units BID basal. SSI for coverage. Adjust as indicated. AM HbA1c (4) Venous stasis dermatitis of both lower extremities: Plan: No signs of cellulitis/overt wounds. No indication for abx at this time. (5) Ambulatory dysfunction: Plan: Patient wheelchair bound at baseline. Multiple discussions regarding placement have been had in the past. Patient typically defers. Would continue to emphasize need for outpatient BiPAP and escalation of assistance. (6) Elevated troponin: Plan: Likely demand ischemic in setting of acute on chronic HF. Trend to peak. Plan Hypothyroidism: med rec has not been confirmed - last report: levothyroxine 150 mg HTN: med rec has not been confirmed - last report: losartan 50 mg, metoprolol 200 mg, bumex 1 mg Resume home meds once confirmed Code status: DNR/DNI, patient confirmed code status during last admission as DNR/DNI, currently confused - did briefly mention chest compressions then deferred to daughter (primary decision maker) as she is confused - would confirm with daughter in the AM DVT ppx: Lovenox FENGI: Low sodium, carb consistent Dispo: PCU/Tele History of Present Illness Chief Complaint: SOB Primary Care Provider: Luann France MD 78 y/o with a PMHx of HFmrEF, HTN, cardiomyopathy, severe COPD, chronic hypoxic respiratory failure on baseline 2 L nasal cannula, hypothyroidism, dyslipidemia, diabetes, asthma, and arthritis presents with worsening SOB and desaturations in the 50s. Patient with worsening symptoms over the last 2-3 days, tonight was particularly worse. Was using her home O2, but this did not improve her breathing. No fevers or chills. No chest pain. No n/v/abdominal pain. Has had worsening BLE edema as well. No wounds that she knows of. Patient lives alone at home and is wheelchair bound. Is to wear NIPVV but has a history of trauma, which makes this difficult. Does follow with pulm outpatient. Has a history of HFmrEF. Last ECHO 10/2023. Patient is typically not adherent to her medication regimen and has had frequent hospitalizations for the same concern. Allergies Allergy/AdvReac Type Severity Reaction Status Date / Time aspirin Allergy Severe HIVES; Verified 06/26/24 12:57 DIFFICULTY BREATHING colchicine Allergy Severe Difficulty Verified 06/26/24 12:57 Breathing Iodinated Contrast Media Allergy Intermediate Rash Verified 06/26/24 12:57 Benzodiazepines Allergy Unknown Unknown Verified 06/26/24 12:57 diltiazem Allergy Unknown UNKNOWN Verified 06/26/24 12:57 REACTION doxycycline Allergy Unknown Unknown Verified 06/26/24 12:57 melon Allergy Unknown Unknown Verified 06/26/24 12:57 nifedipine Allergy Unknown UNKNOWN Verified 06/26/24 12:57 REACTION simvastatin Allergy Unknown UNKNOWN Verified 06/26/24 12:57 REACTION PER PT vancomycin Allergy Unknown UNKNOWN Verified 06/26/24 12:57 REACTION metformin AdvReac Intermediate Diarrhea Verified 06/26/24 12:57 Home Medications Medication Instructions Recorded Confirmed Type Spacer for Inhaler #1 ea 09/04/22 05/25/24 Rx blood sugar diagnostic (OneTouch #100 ea 12/17/22 05/25/24 Rx Verio test strips) pen needle, diabetic 32 gauge x #50 ea 12/17/22 05/25/24 Rx 1/4" (BD Ultra-Fine Micro Pen Needle) albuterol sulfate 90 mcg/actuation 2 puff inhalation Q4H PRN 03/14/23 06/26/24 Rx aerosol inhaler cough/wheeze/shortness of breath #18 grams triamcinolone acetonide 0.1 % 1 applic EXT BID PRN FLARE UPS 04/17/23 05/25/24 History topical cream metoprolol succinate 200 mg 200 mg PO DAILY #90 tabs 07/13/23 05/25/24 Rx tablet,extended release 24 hr losartan 50 mg tablet 50 mg PO QAM #90 tabs 09/03/23 05/25/24 Rx meclizine 12.5 mg tablet 12.5 mg PO TID #21 tabs 01/05/24 05/25/24 Rx bumetanide 1 mg tablet 1 mg PO DAILY #120 tabs 01/10/24 05/25/24 Rx levothyroxine 150 mcg tablet 150 mcg PO DAILYBB #90 tabs 01/17/24 05/25/24 Rx albuterol sulfate 2.5 mg/0.5 mL 2.5 mg inhalation Q4H PRN 02/07/24 06/26/24 History solution for nebulization shortness of breath or wheezing or cough insulin detemir U-100 100 unit/mL 30 unit subcut QAM 05/08/24 05/25/24 History (3 mL) subcutaneous pen (Levemir FlexPen) bisacodyl 10 mg rectal suppository 10 mg WV DAILY PRN constipation 06/17/24 06/26/24 Rx #30 ea polyethylene glycol 3350 17 17 g PO DAILY PRN constipation 06/17/24 Rx gram/dose oral powder (Miralax) #850 grams sennosides 8.6 mg-docusate sodium 1 tab-cap PO BID #60 tabs 06/17/24 Rx 50 mg tablet (Senna-S) ipratropium 0.5 mg-albuterol 3 mg 3 ml inhalation Q6R #90 mL 07/11/24 Rx (2.5 mg base)/3 mL nebulization soln Past Med/Surg History Problem List (Updated 07/13/24 @ 04:24 by Jeff Wheeler PA-C) Foot contusion Acute heart failure with preserved ejection fraction (Acute) Acute on chronic respiratory failure with hypoxia and hypercapnia (Acute) Heart failure with improved ejection fraction (HFimpEF) Pneumonia (Acute) Acute heart failure with reduced ejection fraction (HFrEF, <= 40%) (Acute) Vertigo Sensorineural hearing loss (SNHL) of left ear with restricted hearing of right ear Type 2 diabetes mellitus with obesity Benign positional vertigo Acute and chronic respiratory failure (Acute) HFrEF (heart failure with reduced ejection fraction) Anemia Acute on chronic heart failure with preserved ejection fraction (HFpEF) Hypercapnic respiratory failure, chronic Pleural effusion (Acute) CHF (congestive heart failure) (Acute) Pericardial effusion Pulmonary hypertension Atypical nevus of thoracic region Cardiomyopathy Contracture of right knee Impacted fracture of right hip (~04/19/23) Proteinuria Bronchiectasis Chronic respiratory failure with hypoxia, on home O2 therapy O2 prn at 2L Hypothyroidism Obstructive lung disease Asthma Migraine headache Arthritis Venous stasis dermatitis of both lower extremities Nephrotic range proteinuria Shortness of breath Acute maculopapular rash Dyslipidemia Obstructive pattern present on pulmonary function testing Ambulatory dysfunction Diastolic heart failure HX Medical History COPD (chronic obstructive pulmonary disease) Diabetes mellitus with albuminuria Abdominal distension Epistaxis Acute on chronic systolic heart failure Near syncope Hydronephrosis, bilateral Acute UTI Renal cyst, left Pleuritic chest pain 4x in the past year (HFpEF) heart failure with preserved ejection fraction Acute and chronic respiratory failure with hypoxia Lymphedema Chest pain hx-"more pleuritic pain, not cardiac related" Type 2 diabetes mellitus with peripheral neuropathy Chronic edema Hypomagnesemia Hypokalemia Elevated serum globulin level Multiple drug allergies Wheelchair bound Right knee DJD Lower extremity edema Hx of thyroid cancer History of seizures as a child Financial difficulties Hypothyroidism, postablative Pleurisy without effusion have been hospitalized 4x in the past year for this History of ectopic Hx of papillary thyroid carcinoma Gait abnormality Vitamin D deficiency Hx of pleurisy Surgical History History of D&C Hx of thyroidectomy Hx of brain surgery 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 during the procedure Hx of section Family History Father Stroke Mother Dementia Diabetes Sister Macular degeneration Brother Macular degeneration Other TIA (transient ischemic attack) Denies family history of Ovarian cancer Prostate cancer Myocardial infarction Breast cancer Colorectal cancer Social History Smoking Status: Never smoker Second Hand Exposure: No; Do You Dip or Chew Tobacco: No; Hx Alcohol Use: No Hx Substance Use: No Preferred Language: Occitan Communication Ability: Effective Visual Impairment: No Limitations Hearing Ability: Normal Instructional Aide Required: No Beliefs That Will Affect Care: None marital status: / Current Living Situation: Alone Current Living Situation Comment: Lives alone in house current occupational status: retired 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 Feels Safe at Home: Yes Childhood Exposure to Second-Hand Smoke: No Diet: regular Dental Care, Regularly: Yes Physical Activity Frequency: Does not Exercise Seatbelt Use: always Sunscreen Use: No Assistive Devices: Stair Lift and Wheelchair Physical Exam 2 Physical Exam: Gen: chronically ill appearing patient in mild to moderate distress HEENT: AT NC MMM Resp: lung sound diminished throughout, mild to moderate increased work of breathing, no obvious retractions, tachypneic with some belly breathing, poor air movement, no cyanosis CV: tachycardic, no murmurs appreciated, 3+ pitting edema BLE with chronic venous stasis changes, clinically well perfused Abd: soft, non-tender, non-distended MSK: no obvious deformities Skin: no rashes or bruising Neuro: alert and oriented Psych: appropriate mood and affect Results & Data Results & Data Vital Signs (Past 12 Hours) Vital Signs Temp Pulse Resp BP Pulse Ox O2 Del Method O2 Flow Rate 07/13/24 04:30 104 H 30 H 175/95 H 94 Nasal Cannula 5 07/13/24 04:15 104 H 174/104 H 99 Nasal Cannula 5 07/13/24 04:00 105 H 36 H 168/111 H 93 07/13/24 03:34 Nasal Cannula 2 07/13/24 03:28 36.5 C 110 H 26 H 205/112 H 54 L Nasal Cannula 2 07/13/24 03:26 106 H Laboratory Results 07/13/24 03:32 07/13/24 03:32 07/13/24 03:32 VBG pH 7.28 L VBG pCO2 80 H VBG pO2 43 VBG HCO3 38 VBG O2 Saturation 72.0 VBG Base Excess 7.7 Supervising Physician Co-Signing Physician Notes Attending addendum: I have physically seen this patient, have supervised the medical residents activities, and agree with the H&P unless as otherwise noted. Assessment and Plan: Acute on chronic respiratory failure with hypoxia and hypercapnia/acute HFpEF/increased troponin Patient presents with acute worsening of her chronic shortness of breath and presents to the ED via EMS Initial pulse ox 54% on room air, which increased to 93% on 5 L cannula. She was given total furosemide 80 mg IV in the ED, and Nitropaste 2 inches anterior chest wall. She was then placed on BiPAP, after being given lorazepam 0.5 mg IV x 1 for improved tolerance Further dosages of furosemide should be based on initial response to 80 mg IV Patient during previous admission had bicarb oftentimes in the mid to upper 40s. Could consider dosages of Diamox if further diuresis needed in that situation. The patient will be admitted to telemetry for serial cardiac enzymes, serial EKG's, cardiac rhythm monitoring and a 2-D echocardiogram with Dopplers. Continue metoprolol succinate and losartan. Patient somewhat hypertensive in the ED, and reports that she did not her medications yesterday Diabetes mellitus- Adjustment in glargine with SSI coverage, expectant patient will have decreased oral intake for the first day or so admission Check hemoglobin A1c Ambulatory dysfunction/progressive generalized weakness- Patient will likely need PT/OT assessment prior to discharge Resident Activity Tracking Resident Involvement: Resident Care Provided Care Provided: Adult Hospital Medicine
[2024-07-13 04:53] LABS: Partial Thromboplastin Ratio 1.1; Partial Thromboplastin Time 29 Seconds (21-31); Prothrombin Time 10.7 Seconds (9.0-12.0)
[2024-07-13 05:11] LABS: Appearance Urine Cloudy (Clear); Bacteria Urine Automated 1+ (None Seen); Bilirubin Urine Negative (Negative); Blood Urine 2+ (Negative); Color Urine Yellow; Glucose Urine UA 3+ (Negative); Ketones Urine Trace (Negative); Leukocyte Esterase Urine 1+ (Negative); Nitrite Urine Negative (Negative); Protein Urine 4+ (Negative); Urobilinogen Urine Negative (Negative); WBC Urine Automated >50 /hpf (0-5); pH Urine 5.5 (4.5-7.5)
--- NOTE | 2024-07-13 06:30 | Billing Data ---
Date of Service July 13, 2024 Coding Level of Care Code 24336 INT INP/OBS CARE
--- NOTE | 2024-07-13 06:41 | Electrocardiogram Report ---
Test Reason : Blood Pressure : */* mmHG Vent. Rate : 107 BPM Atrial Rate : 107 BPM P-R Int : 168 ms QRS Dur : 88 ms QT Int : 336 ms P-R-T Axes : 69 -28 111 degrees QTcB Int : 448 ms Sinus tachycardia Possible Left atrial enlargement Septal infarct (cited on or before 25-Mar-2006) T wave abnormality, consider lateral ischemia Abnormal ECG When compared with ECG of 10-Jun-2024 01:21, No significant change was found Confirmed by Fady Mendez ([id number]) on 07/13/2024 6:41:42 AM Referred By: REFERRED SELF Confirmed By: Fady Mendez
[2024-07-13] MEDS: cefTRIAXone SODIUM 2,000 MG/50 ML BAG IV STA (06:44)
--- NOTE | 2024-07-13 07:00 | XRay Report ---
XR chest 1V portable CLINICAL HISTORY: Dyspnea. COMPARISON STUDY: Chest radiograph June 09, 2024. Chest CT May 08, 2024. FINDINGS: There is no pneumothorax. Small bilateral pleural effusions persist. Interstitial pulmonary edema has slightly progressed. Cardiomegaly is unchanged. Left basilar opacity is unchanged. IMPRESSION: 1. Cardiomegaly. Mild progression of pulmonary edema. 2. Small bilateral pleural effusions with persistent left basilar opacity which favors atelectasis. ACT 112: Negative or not required by law. Electronically signed by: Vicente Shrestha M.D. 07/13/2024 6:58 AM
[2024-07-13] MEDS ORDERED: GLUCOSE 10 TAB/TUBE PO PRN (08:36)
[2024-07-13] MEDS ORDERED: GLUCAGON FOR INJ 1 MG VIAL SQ PRN (08:36)
[2024-07-13] MEDS ORDERED: DEXTROSE 50% 50 ML SYRINGE IV PRN (08:36)
[2024-07-13] MEDS ORDERED: ALUMINUM/MAGNESIUM SUSP 30 ML UDC PO PRN (08:36)
[2024-07-13] MEDS ORDERED: CARBOHYDRATES FOR HYPOGLYCEMIA PO PRN (08:36)
[2024-07-13] MEDS ORDERED: ALBUTEROL HFA 8 GM INHALER INH PRN (08:36)
[2024-07-13] MEDS ORDERED: GLUCOSE 40% GEL 15 GM TUBE PO PRN (08:36)
[2024-07-13] MEDS ORDERED: MAGNESIUM HYDROXIDE SUSP 30 ML UDC PO PRN (08:36)
[2024-07-13] MEDS ORDERED: ALBUTEROL 0.5% NEB SOLN 2.5 MG/0.5 ML VIAL INH PRN (08:36)
[2024-07-13] MEDS ORDERED: ONDANSETRON INJ 2 MG/ML 2 ML VIAL IV PRN (08:36)
--- NOTE | 2024-07-13 09:46 | Hospitalist Progress Note ---
Date of Service July 13, 2024 Assessment & Plan (1) Acute on chronic heart failure with preserved ejection fraction (HFpEF): Plan: 10/2023 EF 50-55% previous EF in 2022 30-35% [facility] h/o noncompliance particularly with her diuretics clinically & radiographically is volume overloaded s/p lasix 80mg IV in total given in ER with copious diuresis --> 1500cc+ of UOP thus far plan for repeat diuretics later today naik in place for accurate output decompensated CHF led to severe hypoxia as below repeat echo pending severe proteinuria (4+) likely also contributing to volume overloaded state check TSH to ensure euthyroid state (2) Acute on chronic respiratory failure with hypoxia and hypercapnia: Plan: on chronic NC O2 at home presented with sats in the 50s by report, and VBG with markedly elevated pCO2 now on BIPAP check repeat VBG NOW adjust BIPAP settings as needed (3) Acute metabolic encephalopathy: Plan: 2nd to hypercapnia, hypoxia, +/- UTI treat individual components (4) Type 2 diabetes mellitus with obesity: Plan: last a1c 10.3% in early 2023 cont basal-bolus insulin BSGs q6h or ac/hs (5) Venous stasis dermatitis of both lower extremities: Plan: chronic 2nd to lymphedema no evidence of pandya cellulitis (6) Ambulatory dysfunction: Plan: Patient wheelchair bound at baseline (7) Elevated troponin: Plan: Likely myocardial demand ischemia in setting of acute on chronic CHF and acute on chronic respiratory failure recheck troponin later this am (8) UTI (urinary tract infection): Plan: u/a suggestive of UTI urine cx pending rocephin in meantime Plan Hypothyroidism - check TSH now HTN - nitropaste given to enhance diuresis & for afterload reduction; can stop moving forward, ultimately resume chronic home meds (metoprolol, losartan, etc) Code status: DNR/DNI, patient confirmed code status during last admission as DNR/DNI DVT ppx: Lovenox 40mg daily Admission and Anticipated Discharge Date Admission Date: July 13, 2024 Subjective I was unable to wake the patient up during the visit Somnolent on BiPAP since arrival in the ER she has had 1500cc+ of UOP with lasix 80mg tidal volumes on BIPAP ~300ml Review of Systems Review of Systems: Unobtainable due to cognitive status Physical Exam Physical Exam: gen - somnolent, BIPAP in place neck - JVD present heart - irregular (extra beats), s1 s2 lungs - crackles b/l abd - soft, ?body wall edema, BS+ ext - severe lymphedema of legs with edema extending from feet to hips, pulses 2+ b/l skin - venous stasis changes b/l legs without cellulitis Results & Data Results & Data Vital Signs (Past 12 Hours) Vital Signs Temp Pulse Pulse Resp BP BP Pulse Ox 07/13/24 08:36 88 18 148/77 H 98 07/13/24 07:58 98 H 22 91 07/13/24 07:02 83 18 96 07/13/24 07:00 83 19 140/74 90 07/13/24 06:22 88 07/13/24 05:48 89 20 152/78 H 99 07/13/24 05:21 93 H 20 155/80 H 99 07/13/24 05:15 95 H 22 156/82 H 99 07/13/24 05:13 94 H 23 164/88 H 99 07/13/24 05:00 96 H 20 164/88 H 99 07/13/24 04:47 102 H 30 H 98 07/13/24 04:45 104 H 22 139/95 99 07/13/24 04:30 104 H 30 H 175/95 H 94 07/13/24 04:15 104 H 174/104 H 99 07/13/24 04:00 105 H 36 H 168/111 H 93 07/13/24 03:34 07/13/24 03:28 36.5 C 110 H 26 H 205/112 H 54 L 07/13/24 03:26 106 H O2 Del Method O2 Flow Rate FiO2 07/13/24 08:36 BiPAP 07/13/24 07:58 50 07/13/24 07:02 40 07/13/24 07:00 BiPAP 07/13/24 06:22 07/13/24 05:48 BiPAP 07/13/24 05:21 BiPAP 07/13/24 05:15 07/13/24 05:13 BiPAP 07/13/24 05:00 BiPAP 07/13/24 04:47 50 07/13/24 04:45 BiPAP 07/13/24 04:30 Nasal Cannula 5 07/13/24 04:15 Nasal Cannula 5 07/13/24 04:00 07/13/24 03:34 Nasal Cannula 2 07/13/24 03:28 Nasal Cannula 2 07/13/24 03:26 Laboratory Results Laboratory Results - last 24 hr 07/13/24 07/13/24 07/13/24 03:32 03:38 03:47 WBC 8.78 RBC 3.86 L Hgb 10.4 L Hct 34.3 L MCV 88.9 MCH 26.9 MCHC 30.3 L RDW Std Deviation 46.6 H RDW Coeff of Smith 14.5 Plt Count 284 MPV 10.3 Immature Gran % (Auto) 0.3 Neut % (Auto) 79.3 Lymph % (Auto) 11.8 [place] % (Auto) 5.8 Eos % (Auto) 2.2 Baso % (Auto) 0.6 Neut # (Auto) 6.96 H Lymph # (Auto) 1.04 L [place] # (Auto) 0.51 Eos # (Auto) 0.19 Baso # (Auto) 0.05 Immature Gran # (Auto) 0.03 PT 10.7 INR 1.0 APTT 29 PTT Ratio 1.1 VBG pH 7.28 L VBG pCO2 80 H VBG pO2 43 VBG HCO3 38 VBG O2 Saturation 72.0 VBG Base Excess 7.7 Sodium 136 Potassium 4.4 Chloride 95 L Carbon Dioxide 39 H Anion Gap 2 L BUN 19 Creatinine 0.99 Est Cr Clr Drug Dosing 55.8 Est GFR ( Amer) 64.2 Est GFR (Non-Af Amer) 55.4 BUN/Creatinine Ratio 19.2 Glucose 259 H Lactate 0.8 Calcium 9.1 Magnesium 2.0 Total Bilirubin 0.6 AST 13 ALT 7 Alkaline Phosphatase 65 Troponin I High Sens 27.6 H B-Natriuretic Peptide 1084 H Total Protein 8.0 Albumin 4.0 Globulin 4.0 Albumin/Globulin Ratio 1.0 Procalcitonin < 0.02 Urine Color Yellow Urine Appearance Cloudy A Urine pH 5.5 Ur Specific [place] 1.020 Urine Protein 4+ H Urine Glucose (UA) 3+ H Urine Ketones Trace H Urine Blood 2+ H Urine Nitrite Negative Urine Bilirubin Negative Urine Urobilinogen Negative Ur Leukocyte Esterase 1+ H Urine WBC (Auto) >50 H Urine RBC (Auto) 6-10 H U Hyaline Cast (Auto) 11-20 H U Epithel Cells (Auto) 6-10 H Urine Bacteria (Auto) 1+ H Adenovirus (PCR) Not Detected B. pertussis DNA (PCR) Not Detected B.parapertussis DNA PCR Not Detected C. pneumoniae DNA (PCR) Not Detected Coronavirus OC43 (PCR) Not Detected Coronavirus HKU1 (PCR) Not Detected Coronavirus 229E (PCR) Not Detected SARS-CoV-2 (PCR) Not Detected Coronavirus NL63 (PCR) Not Detected Human Metapneumovir PCR Not Detected Influenza Type A (PCR) Not Detected Influenza Type B (PCR) Not Detected M. pneumoniae (PCR) Not Detected Parainfluenza 1 (PCR) Not Detected Parainfluenza 2 (PCR) Not Detected Parainfluenza 3 (PCR) Not Detected Parainfluenza 4 (PCR) Not Detected RSV (PCR) Not Detected Entero/Rhino (PCR) Not Detected 07/13/24 05:23 WBC RBC Hgb Hct MCV MCH MCHC RDW Std Deviation RDW Coeff of Smith Plt Count MPV Immature Gran % (Auto) Neut % (Auto) Lymph % (Auto) [place] % (Auto) Eos % (Auto) Baso % (Auto) Neut # (Auto) Lymph # (Auto) [place] # (Auto) Eos # (Auto) Baso # (Auto) Immature Gran # (Auto) PT INR APTT PTT Ratio VBG pH VBG pCO2 VBG pO2 VBG HCO3 VBG O2 Saturation VBG Base Excess Sodium Potassium Chloride Carbon Dioxide Anion Gap BUN Creatinine Est Cr Clr Drug Dosing Est GFR ( Amer) Est GFR (Non-Af Amer) BUN/Creatinine Ratio Glucose Lactate Calcium Magnesium Total Bilirubin AST ALT Alkaline Phosphatase Troponin I High Sens 27.9 H B-Natriuretic Peptide Total Protein Albumin Globulin Albumin/Globulin Ratio Procalcitonin Urine Color Urine Appearance Urine pH Ur Specific [place] Urine Protein Urine Glucose (UA) Urine Ketones Urine Blood Urine Nitrite Urine Bilirubin Urine Urobilinogen Ur Leukocyte Esterase Urine WBC (Auto) Urine RBC (Auto) U Hyaline Cast (Auto) U Epithel Cells (Auto) Urine Bacteria (Auto) Adenovirus (PCR) B. pertussis DNA (PCR) B.parapertussis DNA PCR C. pneumoniae DNA (PCR) Coronavirus OC43 (PCR) Coronavirus HKU1 (PCR) Coronavirus 229E (PCR) SARS-CoV-2 (PCR) Coronavirus NL63 (PCR) Human Metapneumovir PCR Influenza Type A (PCR) Influenza Type B (PCR) M. pneumoniae (PCR) Parainfluenza 1 (PCR) Parainfluenza 2 (PCR) Parainfluenza 3 (PCR) Parainfluenza 4 (PCR) RSV (PCR) Entero/Rhino (PCR) PG Care Time/CCT Total # of Minutes Spent Total Time Spent with Patient: Total time spent is greater than 50% in coordination of care (as documented) at patient's floor/unit and/or counseling patient: Coding Level of Care Code None Diagnoses Acute on chronic heart failure with preserved ejection fraction (HFpEF) I50.33 Acute on chronic respiratory failure with hypoxia and hypercapnia J96.21; J96.22 Acute metabolic encephalopathy G93.41 Type 2 diabetes mellitus with obesity E11.69; E66.9 Venous stasis dermatitis of both lower extremities I87.2 Ambulatory dysfunction R26.2 Elevated troponin R77.8 UTI (urinary tract infection) N39.0
[2024-07-13 10:00] LABS: Base Excess VBG 11.2 mEq/L; HCO3 VBG 40 mmol/L; Oxygen Saturation VBG 92.6 %; PCO2 VBG 79 mmHg (38-50); PO2 VBG 64 mmHg; pH VBG 7.31 (7.36-7.41)
[2024-07-13] MEDS: ALBUT/IPRATROP 3MG/0.5MG NEB 3 ML VIAL INH SCH (10:05)
[2024-07-13 10:17] LABS: Hematocrit (blood only) 32.7 % (37.0-47.0); Hemoglobin 9.9 g/dl (12.0-16.0); Mean Corpuscular Hemoglobin 26.6 pg (25.0-34.0); Mean Corpuscular Hgb Conc 30.3 g/dL (32.0-36.0); Mean Corpuscular Volume 87.9 fL (80.0-100.0); Mean Platelet Volume 11.4 fL (9.4-12.4); Platelet Count 191 K/uL (130-400); RDW Coefficient of Variation 14.5 % (11.5-14.5); RDW Standard Deviation 46.6 fL (36.4-46.3); Red Blood Count 3.72 M/uL (4.20-5.40); White Blood Count 7.01 K/ul (4.8-10.8)
[2024-07-13 10:55] LABS: Thyroid Stimulating Hormone 4.96 uIu/ml (0.300-4.500)
[2024-07-13 10:56] LABS: Calcium 8.8 mg/dl (8.6-10.3); Potassium 4.6 mmol/L (3.5-5.1)
[2024-07-13 11:02] LABS: BUN Creatinine Ratio 19.1 (10-20); Creatinine Clr Calc Pharmacy 58.8 ml/min; Est GFR (African American) 68.3 ml/min; Est GFR (Non-African American) 58.9 ml/min
[2024-07-13] MEDS: ENOXAPARIN INJ 40 MG/0.4 ML SYR SQ SCH (11:06)
[2024-07-13] MEDS: LANTUS PER UNIT CHARGE SQ SCH (11:07)
[2024-07-13] MEDS: INSULIN ASPART PER UNIT CHARGE SC SCH (11:07)
[2024-07-13 15:39] LABS: Base Excess VBG 11.2 mEq/L; HCO3 VBG 42 mmol/L; Oxygen Saturation VBG 72.5 %; PCO2 VBG 92 mmHg (38-50); pH VBG 7.27 (7.36-7.41)
--- NOTE | 2024-07-13 15:44 | XCELERA ---
[id number]
[2024-07-13 16:35] LABS: PO2 VBG 43 mmHg
[2024-07-13] MEDS: BUMETANIDE 1 MG in SYRINGE 0 ML IV ONE (16:48)
[2024-07-13] MEDS: BUMETANIDE 2 MG in SYRINGE 0 ML IV ONE (20:33)
[2024-07-13 20:47] LABS: Base Excess ABG 13.4 mEq/L (-9-1.8); HCO3 ABG 42 mmol/L (19-24); Oxygen Saturation ABG 98.7 % (90-95); PCO2 ABG 75 mmHg (35-46); PO2 ABG 170 mmHg (80-95); pH ABG 7.36 (7.35-7.45)
[2024-07-13 20:51] LABS: Allen Test Pos (Pos)
--- NOTE | 2024-07-13 20:59 | Communication Note ---
Date of Service: July 13, 2024 I spoke with the pt's daughter, Irish Gee, by phone this evening. Gave extensive update of today's events. Expressed concerns re: hypercapnia, lethargy, recurrent decompensated CHF, etc. Discussed plan of care for tonight/tomorrow. Confirmed with Ms Gee that her mother has voiced in the recent past that she would want DNR/DNI status. Gave update to night physician. ABG/ammonia level pending. Exam at ~1930 - gen - lethargic; does wake up but can barely keep eyes open neck - JVD heart - RRR, s1 s2 lungs - still with rales b/l, tachypneic Continue BIPAP. Yosef Guerra MD
[2024-07-13] MEDS: hydrOXYzine HCl 25 MG TAB PO STA (23:42)
[2024-07-14] MEDS: ACETAMINOPHEN 500 MG TAB PO PRN (06:32)
[2024-07-14] MEDS: cefTRIAXone SODIUM 2,000 MG/50 ML BAG IV SCH (06:40)
[2024-07-14 08:21] LABS: Base Excess VBG 16.8 mEq/L; HCO3 VBG 46 mmol/L; Oxygen Saturation VBG 85.8 %; PCO2 VBG 78 mmHg (38-50); PO2 VBG 53 mmHg; pH VBG 7.38 (7.36-7.41)
[2024-07-14] MEDS: LANTUS PER UNIT CHARGE SQ SCH (08:25)
[2024-07-14 09:06] LABS: Estimated Average Glucose 206 mg/dl; Hemoglobin A1C 8.8 % (4.5-5.6)
[2024-07-14 09:32] LABS: BUN Creatinine Ratio 18.5 (10-20); Calcium 8.6 mg/dl (8.6-10.3); Creatinine Clr Calc Pharmacy 49.9 ml/min; Est GFR (African American) 57.7 ml/min; Est GFR (Non-African American) 49.8 ml/min; Potassium 3.9 mmol/L (3.5-5.1)
[2024-07-14] MEDS: BUMETANIDE 2 MG in SYRINGE 0 ML IV SCH (10:19)
[2024-07-14] MEDS: MoRPHine SULFATE 2 MG/ML CARP IV STA (20:18)
--- NOTE | 2024-07-14 20:32 | Hospitalist Progress Note ---
Date of Service July 14, 2024 Assessment & Plan (1) Acute on chronic heart failure with preserved ejection fraction (HFpEF): Plan: current echo this admission EF 40-45% thus acute/chronic systolic CHF 10/2023 EF 50-55% previous EF in 2022 30-35% follows with [facility] h/o noncompliance particularly with her diuretics good diuresis since admission but remains volume overloaded previous admission did very well on bumex 2mg IV BID - cont such daily BMP decompensated CHF led to severe hypoxia as below severe proteinuria (4+) likely also contributing to volume overloaded state TSH minimally elevated but unlikely contributing to fluid issues (2) Acute on chronic respiratory failure with hypoxia and hypercapnia: Plan: on chronic NC O2 at home presented with sats in the 50s by report, and VBG with markedly elevated pCO2 s/p BIPAP for about 24 hours following admission peak CO2 low 90s now in the 70s - thus marked improvement encouraged to wear BIPAP at HS cont NC O2 during the day (3) Acute metabolic encephalopathy: Plan: 2nd to hypercapnia, hypoxia, +/- UTI improved mental status today (4) Type 2 diabetes mellitus with obesity: Plan: last a1c 10.3% in early 2023 cont basal-bolus insulin BSGs ac/hs (5) Venous stasis dermatitis of both lower extremities: Plan: chronic 2nd to lymphedema no evidence of pandya cellulitis (6) Ambulatory dysfunction: Plan: Patient wheelchair bound at baseline (7) Elevated troponin: Plan: Likely myocardial demand ischemia in setting of acute on chronic CHF and acute on chronic respiratory failure peak trop 27 no evidence of ACS (8) UTI (urinary tract infection): Plan: u/a suggestive of UTI urine cx pending cont rocephin in meantime Plan Hypothyroidism - TSH minimally elevated; leave synthroid as is; repeat TSH as outpatient in 1 month HTN - resume metoprolol; hold losartan for now Code status: DNR/DNI, patient confirmed code status during last admission as DNR/DNI DVT ppx: Lovenox 40mg daily daughter updated again this evening by phone told her that PT/OT advising rehab Admission and Anticipated Discharge Date Admission Date: July 13, 2024 Subjective feels better less dyspnea, but still short of breath no cough ate a good breakfast mild chest tightness did wear BIPAP for a few hours overnight but ultimately took it off due to discomfort/anxiety/etc tele wnl overnight she asks "what can we do to prevent this?" Review of Systems Review of Systems: gen - no fevers cv - no substernal chest pain GI - no abd pain or N/V Physical Exam Physical Exam: gen - awake, alert - looks better than yesterday; no distress neck - JVD+ heart - irregular (extra beats), s1 s2, 1/6 Systolic murmur LSB lungs - crackles b/l extending nearly all the way up the posterior back abd - soft, ?body wall edema, BS+, NT ext - severe lymphedema of legs with edema extending from feet to hips, pulses 2+ b/l; edema modestly improved from yesterday skin - venous stasis changes b/l legs without cellulitis psych - much more awake, alert and oriented today Results & Data Results & Data Vital Signs (Past 12 Hours) Vital Signs Temp Pulse Resp BP BP Pulse Ox O2 Del Method 07/14/24 19:49 37.3 C 80 28 H 202/98 H 98 BiPAP 07/14/24 19:19 95 H 20 93 Nasal Cannula 07/14/24 16:33 37.4 C 91 H 17 172/67 H 93 Nasal Cannula 07/14/24 12:48 96 H 20 98 Nasal Cannula 07/14/24 11:55 171/68 H 07/14/24 11:48 36.7 C 100 H 18 191/93 H 93 Nasal Cannula 07/14/24 11:35 Nasal Cannula O2 Flow Rate FiO2 07/14/24 19:49 40 07/14/24 19:19 2.5 07/14/24 16:33 3 07/14/24 12:48 4 07/14/24 11:55 07/14/24 11:48 4 07/14/24 11:35 Laboratory Results Laboratory Results - last 24 hr 07/13/24 07/13/24 07/14/24 20:22 20:42 07:19 ABG pH 7.36 ABG pCO2 75 H ABG pO2 170 H ABG HCO3 42 H ABG O2 Saturation 98.7 H ABG Base Excess 13.4 H Xavier Test Pos VBG pH VBG pCO2 VBG pO2 VBG HCO3 VBG O2 Saturation VBG Base Excess Oxygen Given FLOW RATE 5 Sodium Potassium Chloride Carbon Dioxide Anion Gap BUN Creatinine Est Cr Clr Drug Dosing Est GFR ( Amer) Est GFR (Non-Af Amer) BUN/Creatinine Ratio Glucose POC Glucose 117 H 106 H Estimat Average Glucose Hemoglobin A1c Calcium Ammonia 45.0 07/14/24 07/14/24 07/14/24 08:05 10:57 15:20 ABG pH ABG pCO2 ABG pO2 ABG HCO3 ABG O2 Saturation ABG Base Excess Xaveir Test VBG pH 7.38 VBG pCO2 78 H VBG pO2 53 VBG HCO3 46 VBG O2 Saturation 85.8 VBG Base Excess 16.8 Oxygen Given Sodium 141 Potassium 3.9 Chloride 94 L Carbon Dioxide 42 H* Anion Gap 5 BUN 20 Creatinine 1.08 Est Cr Clr Drug Dosing 49.9 Est GFR ( Amer) 57.7 Est GFR (Non-Af Amer) 49.8 BUN/Creatinine Ratio 18.5 Glucose 107 H POC Glucose 190 H 165 H Estimat Average Glucose 206 Hemoglobin A1c 8.8 H Calcium 8.6 Ammonia 07/14/24 19:46 ABG pH ABG pCO2 ABG pO2 ABG HCO3 ABG O2 Saturation ABG Base Excess Xavier Test VBG pH VBG pCO2 VBG pO2 VBG HCO3 VBG O2 Saturation VBG Base Excess Oxygen Given Sodium Potassium Chloride Carbon Dioxide Anion Gap BUN Creatinine Est Cr Clr Drug Dosing Est GFR ( Amer) Est GFR (Non-Af Amer) BUN/Creatinine Ratio Glucose POC Glucose 176 H Estimat Average Glucose Hemoglobin A1c Calcium Ammonia PG Care Time/CCT Total # of Minutes Spent Total Time Spent with Patient: Total time spent is greater than 50% in coordination of care (as documented) at patient's floor/unit and/or counseling patient: Coding Level of Care Code 55470 SUB INP/OBS CARE 2/35MIN Diagnoses Acute on chronic heart failure with preserved ejection fraction (HFpEF) I50.33 Acute on chronic respiratory failure with hypoxia and hypercapnia J96.21; J96.22 Acute metabolic encephalopathy G93.41 Type 2 diabetes mellitus with obesity E11.69; E66.9 Venous stasis dermatitis of both lower extremities I87.2 Ambulatory dysfunction R26.2 Elevated troponin R77.8 UTI (urinary tract infection) N39.0
[2024-07-14] MEDS: METOPROLOL SUCC 50MG EXT REL TAB PO STA (20:57)
[2024-07-15 06:42] LABS: BUN Creatinine Ratio 18.8 (10-20); Blood Urea Nitrogen 21 mg/dl (6-23); Calcium 8.6 mg/dl (8.6-10.3); Carbon Dioxide > 45 mmol/L (21-32); Chloride 90 mmol/L (98-107); Creatinine Clr Calc Pharmacy 47.9 ml/min; Est GFR (African American) 55.3 ml/min; Est GFR (Non-African American) 47.7 ml/min; Glucose 118 mg/dl (70-99(Fasting)); Magnesium 1.6 mg/dl (1.7-2.4); Sodium 142 mmol/L (136-145)
[2024-07-15] MEDS: LEVOTHYROXINE SODIUM 150 MCG TABLET PO SCH (09:22)
[2024-07-15] MEDS: acetaZOLAMIDE 250 MG TAB PO SCH (09:23)
[2024-07-15] MEDS: METOPROLOL SUCC 50MG EXT REL TAB PO SCH (09:24)
[2024-07-15] MEDS: LOSARTAN POTASSIUM 50 MG TAB PO SCH ×2 (09:27→20:23)
[2024-07-15] MEDS: MAGNESIUM SULFATE / D5W 1 GM/100 ML BAG IV SCH (10:09)
[2024-07-15 15:26] LABS: Base Excess VBG 22.9 mEq/L; HCO3 VBG 54 mmol/L; Oxygen Saturation VBG 82.7 %; PCO2 VBG 96 mmHg (38-50); PO2 VBG 52 mmHg; pH VBG 7.36 (7.36-7.41)
[2024-07-15] MEDS: TRIAMCINOLONE ACET 0.1% CR 80 GM TUBE EXT SCH (18:27)
--- NOTE | 2024-07-15 19:04 | Hospitalist Progress Note ---
Date of Service July 15, 2024 Assessment & Plan (1) Acute on chronic heart failure with preserved ejection fraction (HFpEF): Plan: current echo this admission EF 40-45% thus acute/chronic systolic CHF 10/2023 EF 50-55% previous EF in 2022 30-35% follows with [facility] h/o noncompliance with meds but particularly her diuretics diuresing well down 10+ pounds since admission cont bumex 2mg IV BID daily BMP HCO3 very high today - diamox 250mg x 1 decompensated CHF led to severe hypoxia as below severe proteinuria (4+) likely also contributing to volume overloaded state TSH minimally elevated but unlikely contributing to fluid issues (2) Acute on chronic respiratory failure with hypoxia and hypercapnia: Plan: on chronic NC O2 at home presented with sats in the 50s by report, and VBG with markedly elevated pCO2 s/p BIPAP for about 24 hours following admission peak CO2 low 90s had improved to the 70s now back in 90s on today's VBG (but pH is compensated) counseled her multiple times today on importance of wearing BIPAP at HS fatigue/lethargy/weakness - 2nd to high CO2s along with other factors cont NC O2 during the day keep sats 90-92% - DO NOT OVER-OXYGENATE (3) Acute metabolic encephalopathy: Plan: 2nd to hypercapnia, hypoxia, +/- UTI improved mental status but not at baseline (4) Type 2 diabetes mellitus with obesity: Plan: last a1c 10.3% in early 2023 a1c 8.8% yesterday cont basal-bolus insulin BSGs ac/hs (5) Venous stasis dermatitis of both lower extremities: Plan: chronic 2nd to lymphedema no evidence of pandya cellulitis (6) Ambulatory dysfunction: Plan: Patient wheelchair bound at baseline (7) Elevated troponin: Plan: Likely myocardial demand ischemia in setting of acute on chronic CHF and acute on chronic respiratory failure peak trop 27 no evidence of ACS despite a 2-hour long episode of chest heaviness early this am prior to nurse shift change her repeat troponin is only 27 this would argue against ischemic chest pain chest symptoms likely due to pulmonary edema, bronchiectasis, etc. (8) UTI (urinary tract infection): Plan: u/a suggestive of UTI but urine cx with 3 or more organisms suggesting contamination since initial u/a was concerning for UTI will simply Rx empirically cont rocephin today, then change to keflex tomorrow am to complete 7 days of IV/PO abx Plan Hypothyroidism - TSH minimally elevated; leave synthroid as is; repeat TSH as outpatient in 1 month HTN - uncontrolled; cont metoprolol succ daily; losartan - increase to 50mg BID Code status: DNR/DNI DVT ppx: Lovenox 40mg daily daughter updated 2x's this week - 07/14 and 07/12 counseled daughter about my concerns re: recurrent admissions, severity of illness, unsafe living alone, recommendation for 10/05 care, etc. told her that PT/OT advising rehab will likely involve palliative care again while here Admission and Anticipated Discharge Date Admission Date: July 13, 2024 Subjective patient only used BIPAP briefly overnight this am was confused per staff, not retaining information that was being presented to her, asking repeat questions, etc. did eat breakfast tele overnight wnl during my rounds she knew she was at [facility] and that it was 2023 but she did ask similar questions to yesterday's visit states she had a 2-hour episode of chest heaviness early this am that self- resolved never substernal - closer to costal margin still with dyspnea very weak Review of Systems Review of Systems: gen - weak, fatigued psych - confused GI - no pain or N/V CV - see HPI pulm - ongoing dyspnea but no cough Physical Exam Physical Exam: gen - awake, alert, NAD - but looks tired neck - JVD+ heart - irregular (extra beats), s1 s2, 1/6 Systolic murmur LLSB lungs - crackles b/l extending all the way up the posterior back - scantly improved abd - soft, BS+, NT ext - edema/lymphedema of legs improving; pulses 2+ b/l skin - venous stasis changes b/l legs without cellulitis psych - awake, alert, oriented to person/place/year but asks recurrent questions Results & Data Results & Data Vital Signs (Past 12 Hours) Vital Signs Temp Pulse Pulse Resp BP Pulse Ox O2 Del Method 07/15/24 15:46 70 07/15/24 15:01 36.4 C L 68 18 171/69 H 96 Nasal Cannula 07/15/24 11:25 36.4 C L 74 20 176/75 H 95 Nasal Cannula 07/15/24 08:39 77 18 94 Nasal Cannula 07/15/24 08:14 36.9 C 80 20 154/65 H 91 Room Air, Nasal Cannula 07/15/24 07:45 Nasal Cannula 07/15/24 07:36 77 O2 Flow Rate 07/15/24 15:46 07/15/24 15:01 3 07/15/24 11:25 3 07/15/24 08:39 3 07/15/24 08:14 3 07/15/24 07:45 3 07/15/24 07:36 Laboratory Results Laboratory Results - last 24 hr 07/14/24 07/15/24 07/15/24 19:46 05:53 07:21 Sodium 142 Potassium 4.0 Chloride 90 L Carbon Dioxide > 45 H* Anion Gap TNP BUN 21 Creatinine 1.12 Est Cr Clr Drug Dosing 47.9 Est GFR ( Amer) 55.3 Est GFR (Non-Af Amer) 47.7 BUN/Creatinine Ratio 18.8 Glucose 118 H POC Glucose 176 H 118 H Calcium 8.6 Magnesium 1.6 L 07/15/24 07/15/24 07/15/24 07:28 11:22 15:14 VBG pH 7.36 VBG pCO2 96 H VBG pO2 52 VBG HCO3 54 VBG O2 Saturation 82.7 VBG Base Excess 22.9 POC Glucose 114 H 222 H Troponin I High Sens 27.7 H PG Care Time/CCT Total # of Minutes Spent Total Time Spent with Patient: Total time spent is greater than 50% in coordination of care (as documented) at patient's floor/unit and/or counseling patient: Coding Level of Care Code 82141 SUB INP/OBS CARE 3/50MIN Diagnoses Acute on chronic heart failure with preserved ejection fraction (HFpEF) I50.33 Acute on chronic respiratory failure with hypoxia and hypercapnia J96.21; J96.22 Acute metabolic encephalopathy G93.41 Type 2 diabetes mellitus with obesity E11.69; E66.9 Venous stasis dermatitis of both lower extremities I87.2 Ambulatory dysfunction R26.2 Elevated troponin R77.8 UTI (urinary tract infection) N39.0
[2024-07-15] MEDS: ALBUT/IPRATROP 3MG/0.5MG NEB 3 ML VIAL INH PRN (23:03)
[2024-07-15] MEDS: MoRPHine SULFATE 2 MG/ML CARP IV STA (23:27)
[2024-07-16 08:00] LABS: BUN Creatinine Ratio 20.8 (10-20); Blood Urea Nitrogen 22 mg/dl (6-23); Calcium 8.5 mg/dl (8.6-10.3); Carbon Dioxide > 45 mmol/L (21-32); Chloride 90 mmol/L (98-107); Creatinine Clr Calc Pharmacy 49.4 ml/min; Est GFR (African American) 59.1 ml/min; Glucose 119 mg/dl (70-99(Fasting)); Potassium 3.5 mmol/L (3.5-5.1); Sodium 142 mmol/L (136-145)
[2024-07-16] MEDS: cephALEXin 500 MG CAP PO SCH (08:00)
--- NOTE | 2024-07-16 17:30 | Hospitalist Progress Note ---
Date of Service July 16, 2024 Assessment & Plan (1) Acute on chronic heart failure with preserved ejection fraction (HFpEF): Plan: acute/chronic systolic CHF current echo this admission EF 40-45% 10/2023 EF 50-55% previous EF in 2022 30-35% follows with [facility] h/o noncompliance with meds but particularly her diuretics diuresing well down 10-15+ pounds since admission cont bumex 2mg IV BID daily BMP ongoing metabolic alkalosis/high HCO3 - diamox 250mg daily x 3 days decompensated CHF led to severe hypoxia as below severe proteinuria (4+) likely also contributing to volume overloaded state TSH minimally elevated but unlikely contributing to fluid issues (2) Acute on chronic respiratory failure with hypoxia and hypercapnia: Plan: on chronic NC O2 at home presented with sats in the 50s by report, and VBG with markedly elevated pCO2 s/p BIPAP for about 24 hours following admission peak CO2 low 90s had improved to the 70s now back in 90s on today's VBG (but pH is compensated) counseled her multiple times since admission on importance of wearing BIPAP at HS but unfortunately she cannot tolerate it due to extreme anxiety, 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 fatigue/lethargy/weakness - 2nd to high CO2s along with other factors cont NC O2 during the day keep sats 90-92% - DO NOT OVER-OXYGENATE (3) Acute metabolic encephalopathy: Plan: 2nd to hypercapnia, hypoxia, +/- UTI improved mental status (4) Type 2 diabetes mellitus with obesity: Plan: last a1c 10.3% in early 2023 a1c 8.8% cont basal-bolus insulin BSGs ac/hs (5) Venous stasis dermatitis of both lower extremities: Plan: chronic 2nd to lymphedema no evidence of pandya cellulitis (6) Ambulatory dysfunction: Plan: Patient wheelchair bound at baseline (7) Elevated troponin: Plan: Likely myocardial demand ischemia in setting of acute on chronic CHF and acute on chronic respiratory failure peak trop 27 no evidence of ACS despite a 2-hour long episode of chest heaviness early this am prior to nurse shift change her repeat troponin is only 27 this would argue against ischemic chest pain chest symptoms likely due to pulmonary edema, bronchiectasis, etc. (8) UTI (urinary tract infection): Plan: u/a suggestive of UTI but urine cx with 3 or more organisms suggesting contamination since initial u/a was concerning for UTI will simply Rx empirically cont rocephin today, then change to keflex tomorrow am to complete 7 days of IV/PO abx Plan Hypothyroidism - TSH minimally elevated; leave synthroid as is; repeat TSH as outpatient in 1 month HTN - uncontrolled; cont metoprolol succ daily; losartan 50mg BID; if BPs remain high consider aldactone - I believe she has been on such in the past Code status: DNR/DNI DVT ppx: Lovenox 40mg daily daughter updated 2x's this week - 07/14 and 07/12 counseled daughter about my concerns re: recurrent admissions, severity of il lness, unsafe living alone, recommendation for 10/05 care, etc. told her that PT/OT advising rehab will consult palliative care to refine goals of care as prognosis is very poor Admission and Anticipated Discharge Date Admission Date: July 13, 2024 Subjective no events tele overnight wnl, although she did have a 5-beat run of NSVT this afternoon (no symptoms - was sleeping during it) she states her breathing is a "little better" still very tired could not use BIPAP last pm - needed morphine to put mask on, then only had it on briefly (<30 min) chest heaviness improved no pain any other location we discussed briefly getting palliative care involved - agreeable to such Review of Systems Review of Systems: pulm - no cough GI - no abd pain or N/V - naik remains, draining normally CV - no substernal pain psych - denies feeling depressed, states "I'm ok" Physical Exam Physical Exam: gen - awake, alert, NAD; laying in bed neck - mild JVD heart - irregular (extra beats), s1 s2, 1/6 Systolic murmur LLSB lungs - crackles b/l bases, extending 1/[address] up back - improving; no wheezes abd - soft, BS+, NT, ND, no HSM ext - edema/lymphedema of legs improving; pulses 2+ b/l skin - venous stasis changes b/l legs without cellulitis; there is a linear cut on the dorsum of the left foot; right distal pandya - optifoam in place psych - awake, alert, oriented; looks depressed Results & Data Results & Data Vital Signs (Past 12 Hours) Vital Signs Temp Pulse Pulse Resp BP Pulse Ox O2 Del Method 07/16/24 15:32 36.3 C L 59 L 18 166/68 H 97 Nasal Cannula 07/16/24 14:42 62 07/16/24 11:42 37.0 C 62 18 148/70 H 96 Nasal Cannula 07/16/24 07:30 Nasal Cannula 07/16/24 07:29 37.1 C 63 18 158/71 H 97 Nasal Cannula 07/16/24 07:11 68 O2 Flow Rate 07/16/24 15:32 3 07/16/24 14:42 07/16/24 11:42 3 07/16/24 07:30 3 07/16/24 07:29 3 07/16/24 07:11 Laboratory Results Laboratory Results - last 24 hr 07/15/24 07/16/24 07/16/24 20:02 06:57 07:26 Sodium 142 Potassium 3.5 Chloride 90 L Carbon Dioxide > 45 H* Anion Gap TNP BUN 22 Creatinine 1.06 Est Cr Clr Drug Dosing 49.4 Est GFR ( Amer) 59.1 Est GFR (Non-Af Amer) 51.0 BUN/Creatinine Ratio 20.8 H Glucose 119 H POC Glucose 171 H 133 H Calcium 8.5 L Magnesium 2.0 07/16/24 07/16/24 11:11 15:59 Sodium Potassium Chloride Carbon Dioxide Anion Gap BUN Creatinine Est Cr Clr Drug Dosing Est GFR ( Amer) Est GFR (Non-Af Amer) BUN/Creatinine Ratio Glucose POC Glucose 224 H 113 H Calcium Magnesium PG Care Time/CCT Total # of Minutes Spent Total Time Spent with Patient: Total time spent is greater than 50% in coordination of care (as documented) at patient's floor/unit and/or counseling patient: Coding Level of Care Code 39385 SUB INP/OBS CARE 2/35MIN Diagnoses Acute on chronic heart failure with preserved ejection fraction (HFpEF) I50.33 Acute on chronic respiratory failure with hypoxia and hypercapnia J96.21; J96.22 Acute metabolic encephalopathy G93.41 Type 2 diabetes mellitus with obesity E11.69; E66.9 Venous stasis dermatitis of both lower extremities I87.2 Ambulatory dysfunction R26.2 Elevated troponin R77.8 UTI (urinary tract infection) N39.0
[2024-07-17] MEDS: LANTUS PER UNIT CHARGE SQ SCH (08:14)
[2024-07-17] MEDS: METOPROLOL SUCC 50MG EXT REL TAB PO SCH (09:23)
[2024-07-17 09:40] LABS: Blood Urea Nitrogen 23 mg/dl (6-23); Calcium 8.7 mg/dl (8.6-10.3); Carbon Dioxide > 45 mmol/L (21-32); Chloride 88 mmol/L (98-107); Creatinine Clr Calc Pharmacy 53.6 ml/min; Est GFR (African American) 63.4 ml/min; Est GFR (Non-African American) 54.7 ml/min; Glucose 163 mg/dl (70-99(Fasting)); Potassium 3.6 mmol/L (3.5-5.1); Sodium 140 mmol/L (136-145)
[2024-07-17 15:58] LABS: Allen Test Pos (Pos); Base Excess ABG 22.6 mEq/L (-9-1.8); HCO3 ABG 52 mmol/L (19-24); Oxygen Saturation ABG 99.3 % (90-95); PCO2 ABG 89 mmHg (35-46); PO2 ABG 126 mmHg (80-95); pH ABG 7.37 (7.35-7.45)
--- NOTE | 2024-07-17 19:11 | Hospitalist Progress Note ---
Date of Service July 17, 2024 Assessment & Plan (1) Acute on chronic heart failure with preserved ejection fraction (HFpEF): Plan: acute/chronic systolic CHF current echo this admission EF 40-45% 10/2023 EF 50-55% EF in 2022 30-35% follows with [facility] h/o noncompliance with meds - particularly her diuretics has diuresed very well since admission down 15+ pounds since admission cont bumex but lower to 1mg IV BID (suspect approaching euvolemia, and she is typically only on 1mg of bumex daily at home) daily BMP ongoing metabolic alkalosis - completed diamox 250mg daily x 3 days decompensated CHF led to severe hypoxia as below severe proteinuria (4+) likely also contributing to volume overloaded state TSH minimally elevated but unlikely contributing to fluid issues (2) Acute on chronic respiratory failure with hypoxia and hypercapnia: Plan: on chronic NC O2 at home presented with sats in the 50s by report, and VBG with markedly elevated pCO2 s/p BIPAP for about 24 hours following admission peak CO2 low 90s had improved to the 70s ABG today with pH 7.37 and pCO2 89 counseled her multiple times since admission on importance of wearing BIPAP at HS but unfortunately she cannot tolerate it due to extreme anxiety, claustrophobia from the mask, etc. fatigue/lethargy/weakness - 2nd to high CO2s along with other factors cont NC O2 during the day keep sats 90-92% - DO NOT OVER-OXYGENATE (3) Acute metabolic encephalopathy: Plan: 2nd to hypercapnia, hypoxia, +/- UTI improved mental status but still a little confused, saying odd things (4) Type 2 diabetes mellitus with obesity: Plan: last a1c 10.3% in early 2023 a1c 8.8% cont basal-bolus insulin BSGs ac/hs (5) Venous stasis dermatitis of both lower extremities: Plan: chronic 2nd to lymphedema much improved s/p diuresis since admission no evidence of pandya cellulitis (6) Ambulatory dysfunction: Plan: Patient wheelchair bound at baseline (7) Elevated troponin: Plan: Likely myocardial demand ischemia in setting of acute on chronic CHF and acute on chronic respiratory failure peak trop 27 no evidence of ACS despite a 2-hour long episode of chest heaviness over this weekend her repeat troponin was only 27 this would argue against ischemic chest pain chest symptoms likely due to pulmonary edema, bronchiectasis, etc. (8) UTI (urinary tract infection): Plan: u/a suggestive of UTI but urine cx with 3 or more organisms suggesting contamination since initial u/a was concerning for UTI will simply Rx empirically s/p rocephin, then changed to keflex to complete 7 days of IV/PO abx Plan Hypothyroidism - TSH minimally elevated; leave synthroid as is; repeat TSH as outpatient in 1 month HTN - uncontrolled; cont metoprolol succ daily; losartan increased to 50mg BID; if BPs remain high consider aldactone - I believe she has been on such in the past Code status: DNR/DNI DVT ppx: Lovenox 40mg daily daughter updated 2x's this week - 07/14 and 07/12 - by phone daughter extensively updated at bedside today we discussed options for care, poor prognosis, need for consistent BIPAP use (or Trilogy if she qualifies), need for 24/7 supervision/care outside of the hospital, etc. will consult palliative care to refine goals of care Admission and Anticipated Discharge Date Admission Date: July 13, 2024 Subjective no events overnight again did not use BIPAP at HS last night tele - ectopy, but no arrhythmia patient continues with mild dyspnea and chest heaviness feeling pt's daughter arrived from [facility] and was at bedside during the visit we had a very lengthy discussion about her current status and what it would take for her to improve - or at least stabilize - her general health strongly recommended BIPAP or Trilogy unit - and would need to consistently use it also recommended against her living alone any more - she needs 24/7 care palliative care/hospice was discussed briefly during the visit she was saying odd things like "I'm losing my " and "why would you call my daughter?" she often asked repeated questions and would ask frequently for clarification of very simply topics Review of Systems Review of Systems: pulm - no cough GI - no abd pain or N/V Physical Exam Physical Exam: gen - awake, alert, NAD; laying in bed; flat affect neck - mild JVD heart - irregular (extra beats), s1 s2, 1/6 Systolic murmur LLSB lungs - crackles b/l bases, extending 1/[address] up back - slightly improved from yesterday; no wheezes; no distress abd - soft, BS+, NT, ND, no HSM ext - edema/lymphedema of legs markedly improved; wrinkling of her skin present; pulses 2+ b/l skin - venous stasis changes b/l legs without cellulitis; there is a linear cut on the dorsum of the left foot; right distal pandya - optifoam in place - tiny venous ulceration present on R pandya psych - awake, alert; looks depressed; confused at times, saying odd things, etc. Results & Data Results & Data Vital Signs (Past 12 Hours) Vital Signs Temp Pulse Pulse Resp BP Pulse Ox O2 Del Method 07/17/24 14:18 61 07/17/24 11:10 36.9 C 68 16 159/79 H 96 Nasal Cannula 07/17/24 08:01 37.1 C 67 18 177/73 H 97 Nasal Cannula 07/17/24 07:18 Nasal Cannula 07/17/24 07:12 69 O2 Flow Rate 07/17/24 14:18 07/17/24 11:10 3 07/17/24 08:01 3 07/17/24 07:18 3 07/17/24 07:12 Laboratory Results Laboratory Results - last 24 hr 07/16/24 07/17/24 07/17/24 20:14 07:10 08:42 Sodium 140 Potassium 3.6 Chloride 88 L Carbon Dioxide > 45 H* Anion Gap TNP BUN 23 Creatinine 1.00 Est Cr Clr Drug Dosing 53.6 Est GFR ( Amer) 63.4 Est GFR (Non-Af Amer) 54.7 BUN/Creatinine Ratio 23.0 H Glucose 163 H POC Glucose 194 H 97 Calcium 8.7 07/17/24 07/17/24 11:12 15:44 ABG pH 7.37 ABG pCO2 89 H ABG pO2 126 H ABG HCO3 52 H ABG O2 Saturation 99.3 H ABG Base Excess 22.6 H Xavier Test Pos Barometric Pressure Oxygen Given 3L Sodium Potassium Chloride Carbon Dioxide Anion Gap BUN Creatinine Est Cr Clr Drug Dosing Est GFR ( Amer) Est GFR (Non-Af Amer) BUN/Creatinine Ratio Glucose POC Glucose 192 H Calcium PG Care Time/CCT Total # of Minutes Spent Total Time Spent with Patient: Total time spent is greater than 50% in coordination of care (as documented) at patient's floor/unit and/or counseling patient: Coding Level of Care Code 36159 SUB INP/OBS CARE 3/50MIN Diagnoses Acute on chronic heart failure with preserved ejection fraction (HFpEF) I50.33 Acute on chronic respiratory failure with hypoxia and hypercapnia J96.21; J96.22 Acute metabolic encephalopathy G93.41 Type 2 diabetes mellitus with obesity E11.69; E66.9 Venous stasis dermatitis of both lower extremities I87.2 Ambulatory dysfunction R26.2 Elevated troponin R77.8 UTI (urinary tract infection) N39.0
--- NOTE | 2024-07-18 07:04 | XRay Report ---
XR chest 1V portable HISTORY: 78 years-old Female new crackles, ongoing chf acute shortness of breath COMPARISON: 07/13/2024 TECHNIQUE: AP view of the chest FINDINGS: Cardiac silhouette is enlarged. Pulmonary vascular congestion with interstitial coarsening. No pneumo thorax. Small pleural effusions with mild left basilar consolidation redemonstrated. Findings have im proved from prior. Bones appear grossly intact. IMPRESSION: 1. Cardiomegaly with improving pulmonary edema. 2. Small pleural effusions with improved aeration of the lung bases. ACT 112: Negative or not required by law. The above report was generated using voice recognition software. It may contain grammatical, syntax o r spelling errors. Electronically signed by: Dashawn Ramírez M.D. 07/18/2024 7:03 AM
[2024-07-18] MEDS: BUMETANIDE 1 MG in SYRINGE 0 ML IV SCH (08:33)
[2024-07-18 09:01] LABS: BUN Creatinine Ratio 27.1 (10-20); Blood Urea Nitrogen 26 mg/dl (6-23); Calcium 8.6 mg/dl (8.6-10.3); Carbon Dioxide > 45 mmol/L (21-32); Chloride 89 mmol/L (98-107); Creatinine Clr Calc Pharmacy 54.2 ml/min; Est GFR (African American) 66.6 ml/min; Est GFR (Non-African American) 57.4 ml/min; Glucose 108 mg/dl (70-99(Fasting)); Magnesium 1.9 mg/dl (1.7-2.4); Potassium 3.5 mmol/L (3.5-5.1); Sodium 140 mmol/L (136-145)
--- NOTE | 2024-07-18 09:53 | Palliative Care Consultation ---
Date of Consultation July 18, 2024 Assessment & Plan (1) Dyspnea and respiratory abnormalities: (2) Weakness generalized: (3) Medical non-compliance: (4) Advanced care planning/counseling discussion: A 50min face to face complex ACP discussion was held at bedside with pt, her sister, her brother, her son and her daughter, another dtr was present by speakerphone. Several perspectives shared, all family in agreement pt does not stick with a plan and dtr feels she forgets things within hours to a day. Son asking about safest options to help her come back home as pt refuses SNF. We reviewed VNS vs hospice and the difference. family cannot provide caregiver support, [place] all [place]. After lengthy conversation, they are leaning towards private caregivers and home hospice. Tra CM aware and said shes come speak with them. pt has on multiple prior occasions refused rehab/SNF and asked for dc home with hospice which she then refuses when they come to admit her. She then has further decline, does not take meds, cannot tolerate NIV and has limited mobility. Dtr states she ahs fallen x2 in past 2 weeks. Pt states she spends >90% of the day in a recliner, she sleeps in this as well. Bedside commode is next to the recliner. She has trouble with transitions. I advised pt that if she refuses hospice/caregiver support again and gets readmitted she will have proven home is unsafe and she accept care for herself so then, the only choice to assure her safety will be snf. Family states there are no financial worries - pt can afford private caregivers and they are willing to contribute as well. Pt worries strangers will be coming into her home and stealing things rolo her jewelry. Encouraged to seek local support through [employer] and word of mouth for private local caregivers who may be better vetted and known through her community. Family will discuss with neighbors. (5) Palliative care by specialist: Introduced Palliative Medicine and explained our role in patient's care. Patient and/or family were receptive to palliative services for goals of care discussions. Reviewed we are different from hospice, a home health nurse visiting service. (6) Acute heart failure with preserved ejection fraction: (7) Acute metabolic encephalopathy: (8) Acute heart failure with reduced ejection fraction (HFrEF, <= 40%): (9) Hypercapnic respiratory failure, chronic: (10) Pulmonary hypertension: Plan As above Thank you for allowing us to participate in the ongoing care of this patient. Please page with any additional concerns. Rodolfo Antunez DNP Director, Palliative Medicine History of Present Illness Reason for Consultation: end-stage heart/lung disease, repeat admits, FTT Attending Physician: Rosalind Turcios MD History of Present Illness Carli is a 78-year-old female admitted 07/13/2024 with acute on chronic heart failure with preserved ejection fraction, current echo this admission demonstrates an EF of 40 to 45% in the last echocardiogram of October 2023 demonstrated an EF of 50 to 55%. She is generally reported to be noncompliant with her medications, especially diuretics. She is currently down 15 pounds since admission with an intensive diuretic regimen including Bumex. She is currently reaching euvolemia. She has an ongoing metabolic alkalosis and has completed her Diamox for 3 days. Due to her decompensated CHF she has severe hypoxemia, severe proteinuria, and acute on chronic respiratory failure which is a mixed hypoxic and hypercapnic respiratory failure. She is chronically on nasal cannula at home. She needed BiPAP for about 24 hours after admission with a pCO2 in the low 90s which is improved to the 70s. Her ABG yesterday demonstrated a pCO2 of 89. She continues to and tolerate her BiPAP due to anxiety and claustrophobia. She has continued chronic fatigue, intermittent lethargy, weakness. She is also noted to be diabetic. She has venous stasis of the lower extremities. Chronic lymphedema. She has ambulatory dysfunction and is a wheelchair at baseline. History of an elevated troponin this admission suspected to be due to myocardial demand ischemia in the setting of her acute on chronic CHF along with her acute on chronic respiratory failure. Her peak troponin was 27 and there has been no evidence of ACS. Overall, her prognosis is poor. She needs constant BiPAP or trilogy if qualified and requires 24/7 supervision postacute admission. Palliative medicine has been consulted to help refine and clarify the goals of care at this junction. Carli is known to me from her 04/2023 admission. 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 I also offered her telemedicine follow-up with me but she reports that she is unable to use facilitated technology. Allergies Allergy/AdvReac Type Severity Reaction Status Date / Time aspirin Allergy Severe HIVES; Verified 06/26/24 12:57 DIFFICULTY BREATHING colchicine Allergy Severe Difficulty Verified 06/26/24 12:57 Breathing Iodinated Contrast Media Allergy Intermediate Rash Verified 06/26/24 12:57 Benzodiazepines Allergy Unknown Unknown Verified 06/26/24 12:57 diltiazem Allergy Unknown UNKNOWN Verified 06/26/24 12:57 REACTION doxycycline Allergy Unknown Unknown Verified 06/26/24 12:57 melon Allergy Unknown Unknown Verified 06/26/24 12:57 nifedipine Allergy Unknown UNKNOWN Verified 06/26/24 12:57 REACTION simvastatin Allergy Unknown UNKNOWN Verified 06/26/24 12:57 REACTION PER PT vancomycin Allergy Unknown UNKNOWN Verified 06/26/24 12:57 REACTION metformin AdvReac Intermediate Diarrhea Verified 06/26/24 12:57 Home Medications Medication Instructions Recorded Confirmed Type Spacer for Inhaler #1 ea 09/04/22 05/25/24 Rx blood sugar diagnostic (OneTouch #100 ea 12/17/22 05/25/24 Rx Verio test strips) pen needle, diabetic 32 gauge x #50 ea 12/17/22 05/25/24 Rx 1/4" (BD Ultra-Fine Micro Pen Needle) albuterol sulfate 90 mcg/actuation 2 puff inhalation Q4H PRN 03/14/23 07/13/24 Rx aerosol inhaler cough/wheeze/shortness of breath #18 grams triamcinolone acetonide 0.1 % 1 applic EXT BID PRN FLARE UPS 04/17/23 07/13/24 History topical cream metoprolol succinate 200 mg 200 mg PO DAILY #90 tabs 07/13/23 07/13/24 Rx tablet,extended release 24 hr losartan 50 mg tablet 50 mg PO QAM #90 tabs 09/03/23 07/13/24 Rx meclizine 12.5 mg tablet 12.5 mg PO TID #21 tabs 01/05/24 07/13/24 Rx bumetanide 1 mg tablet 1 mg PO DAILY #120 tabs 01/10/24 07/13/24 Rx levothyroxine 150 mcg tablet 150 mcg PO DAILYBB #90 tabs 01/17/24 07/13/24 Rx albuterol sulfate 2.5 mg/0.5 mL 2.5 mg inhalation Q4H PRN 02/07/24 07/13/24 History solution for nebulization shortness of breath or wheezing or cough insulin detemir U-100 100 unit/mL 30 unit subcut QAM 05/08/24 07/13/24 History (3 mL) subcutaneous pen (Levemir FlexPen) bisacodyl 10 mg rectal suppository 10 mg MI DAILY PRN constipation 06/17/24 07/13/24 Rx #30 ea polyethylene glycol 3350 17 17 g PO DAILY PRN constipation 06/17/24 07/13/24 Rx gram/dose oral powder (Miralax) #850 grams sennosides 8.6 mg-docusate sodium 1 tab-cap PO BID #60 tabs 06/17/24 07/13/24 Rx 50 mg tablet (Senna-S) ipratropium 0.5 mg-albuterol 3 mg 3 ml inhalation Q6R #90 mL 07/11/24 07/13/24 Rx (2.5 mg base)/3 mL nebulization soln Patient History Medical History COPD (chronic obstructive pulmonary disease) Diabetes mellitus with albuminuria Abdominal distension Epistaxis Acute on chronic systolic heart failure Near syncope Hydronephrosis, bilateral Acute UTI Renal cyst, left Pleuritic chest pain 4x in the past year (HFpEF) heart failure with preserved ejection fraction Acute and chronic respiratory failure with hypoxia Lymphedema Chest pain hx-"more pleuritic pain, not cardiac related" Type 2 diabetes mellitus with peripheral neuropathy Chronic edema Hypomagnesemia Hypokalemia Elevated serum globulin level Multiple drug allergies Wheelchair bound Right knee DJD Lower extremity edema Hx of thyroid cancer History of seizures as a child Financial difficulties Hypothyroidism, postablative Pleurisy without effusion have been hospitalized 4x in the past year for this History of ectopic Hx of papillary thyroid carcinoma Gait abnormality Vitamin D deficiency Hx of pleurisy Surgical History History of D&C Hx of thyroidectomy Hx of brain surgery 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 during the procedure Hx of section Family History Father Stroke Mother Dementia Diabetes Sister Macular degeneration Brother Macular degeneration Other TIA (transient ischemic attack) Denies family history of Ovarian cancer Prostate cancer Myocardial infarction Breast cancer Colorectal cancer Social History Smoking Status: Never smoker Second Hand Exposure: No; Do You Dip or Chew Tobacco: No; Hx Alcohol Use: No Hx Substance Use: No Preferred Language: Latvian Communication Ability: Effective Visual Impairment: No Limitations Hearing Ability: Normal Financial Supervisor Required: No Beliefs That Will Affect Care: None marital status: / Current Living Situation: Alone Current Living Situation Comment: Lives alone in house current occupational status: retired 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 Feels Safe at Home: Yes Childhood Exposure to Second-Hand Smoke: No Diet: regular Dental Care, Regularly: Yes Physical Activity Frequency: Does not Exercise Seatbelt Use: always Sunscreen Use: No Assistive Devices: Oxygen - at Night and Wheelchair Review of Systems Review of Systems: All systems reviewed & are unremarkable except as noted in Subjective Physical Exam Constitutional: + ill appearing and cooperative Eyes: PERRL, conjunctivae normal, anicteric sclerae ENMT: Ears: + hearing impairment dentition fair Neck: trachea midline, no thyromegaly Respiratory: normal respiratory effort, + cough (dry), able to speak in complete sentences and symmetric chest movement Auscultation: + diminished lung sounds and + crackles (faint) Cardiovascular: Rate/Rhythm: + irregularly irregular Gastrointestinal (Abdomen): normal bowel sounds, soft, nontender, no hepatosplenomegaly Musculoskeletal: gen weakness Skin: pale, dry, warm; few scatt ecchymoses Neurologic: PERRL, EOMI, accommodation nl, no face palsy, no dysarthria Psychiatric: Orientation: alert and oriented x 3 Eye Contact: + fair eye contact Speech: normal rate/rhythm/volume of speech Affect: + flat affect Mood: + depressed mood Thought Process: + circumstantial thought process, + tangential thought process and + perseveration Thought Content: + loneliness Insight: + fair insight Judgment: + fair judgement Results & Data Vital Signs (Past 12 Hours) Vital Signs Temp Pulse Pulse Resp BP Pulse Ox O2 Del Method 07/18/24 08:00 Nasal Cannula 07/18/24 07:33 36.8 C 18 174/79 H 98 Room Air 07/18/24 07:02 60 07/18/24 03:42 36.6 C 60 18 181/69 H 96 Nasal Cannula 07/17/24 22:42 36.5 C 62 18 174/72 H 96 Nasal Cannula 07/17/24 21:55 64 O2 Flow Rate 07/18/24 08:00 3 07/18/24 07:33 07/18/24 07:02 07/18/24 03:42 2 07/17/24 22:42 07/17/24 21:55 Laboratory Results Data reviewed Diagnostic Findings Data reviewed PG Care Time/CCT Total # of Minutes Spent Total Time Spent with Patient: Total time spent is greater than 50% in coordination of care (as documented) at patient's floor/unit and/or counseling patient: I spent 125 minutes overall addressing this very complex case: 20 min in medical data review/discussion with referring provider(s) and/or preparation for the visit 25 min in direct interaction with the patient/exam - pt ESPERANZA, needs frequent re asking 50 min in Advance Care Planning/Goals of Care discussions as detailed above in note (must be >16min) 10 min in subsequent review and synthesis of assessment and plan 10 min communicating with other providers regarding the patient's case: primary team, nursing, care mgt Advanced Care Planning 74896 Advanced Care Planning 30 Min [id number] Advanced Care Planning Additional 30 [place] [address] IN/OBS CONSULT LVL 4,60M (25 - SIGNIFICANT, SEPARATELY IDENTIFIABLE ) Patient Type New Medical Decision Making High Complexity Diagnoses Dyspnea and respiratory abnormalities R06.00; R06.89 Weakness generalized R53.1 Medical non-compliance Z91.199 Advanced care planning/counseling discussion Z71.89 Palliative care by specialist Z51.5 Acute heart failure with preserved ejection fraction I50.31 Acute metabolic encephalopathy G93.41 Acute heart failure with reduced ejection fraction (HFrEF, <= 40%) I50.21 Hypercapnic respiratory failure, chronic J96.12 Pulmonary hypertension I27.20 Additional Codes Advanced Care Planning - 05946 Advanced Care Planning 30 Min: 96898 Advanced Care Planning 30 Min ([id number]) Advanced Care Planning - 27158 Advanced Care Planning Additional 30 Min: 68221 Advanced Care Planning Additional 30 Min ([id number])
--- NOTE | 2024-07-18 15:17 | Electrocardiogram Report ---
Test Reason : Blood Pressure : */* mmHG Vent. Rate : 63 BPM Atrial Rate : 63 BPM P-R Int : 190 ms QRS Dur : 96 ms QT Int : 428 ms P-R-T Axes : 70 -22 96 degrees QTcB Int : 437 ms Normal sinus rhythm Possible Left atrial enlargement Nonspecific ST abnormality Abnormal ECG When compared with ECG of 13-Jul-2024 03:23, Vent. rate has decreased by 44 bpm Confirmed by Klever Plata ([id number]) on 07/18/2024 3:17:05 PM Referred By: REFERRED SELF Confirmed By: Klever Plata
--- NOTE | 2024-07-18 16:47 | Hospitalist Progress Note ---
Date of Service July 18, 2024 Assessment & Plan (1) Acute on chronic heart failure with preserved ejection fraction (HFpEF): Plan: acute/chronic systolic CHF current echo this admission EF 40-45% 10/2023 EF 50-55% EF in 2022 30-35% [place] [facility] [place]o noncompliance with meds - particularly her diuretics has diuresed very well since admission down 15+ pounds since admission cont bumex 1 mg IV twice daily today, then changed to 2 mg p.o. daily starting tomorrow morning BMP stable today notable for high bicarb, metabolic alkalosis, treated with Diamox earlier this admission severe proteinuria (4+) likely also contributing to volume overloaded state TSH minimally elevated, unlikely contributing to fluid issues (2) Acute on chronic respiratory failure with hypoxia and hypercapnia: Plan: on chronic NC O2 at home presented with sats in the 50s by report, and VBG with markedly elevated pCO2 s/p BIPAP for about 24 hours following admission peak CO2 low 90s had improved to the 70s, then back up to 90 on 07/17. was similarly elevated during an May admission this year has been unable to tolerate BiPAP at bedtime keep sats 89-92% (3) Acute metabolic encephalopathy: Plan: 2nd to hypercapnia, hypoxia, +/- UTI improved mental status but still a little confused (4) Type 2 diabetes mellitus with obesity: Plan: last a1c 10.3% in early 2023 a1c 8.8% cont basal-bolus insulin BSGs ac/hs reviewed blood glucose glucoses today and at goal (5) Venous stasis dermatitis of both lower extremities: Plan: chronic 2nd to lymphedema much improved s/p diuresis since admission no evidence of pandya cellulitis (6) Ambulatory dysfunction: Plan: Patient wheelchair bound at baseline (7) Elevated troponin: Plan: Likely myocardial demand ischemia in setting of acute on chronic CHF and acute on chronic respiratory failure peak trop 27 no evidence of ACS despite a 2-hour long episode of chest heaviness over this weekend her repeat troponin was only 27 this would argue against ischemic chest pain chest symptoms likely due to pulmonary edema, bronchiectasis, etc. (8) UTI (urinary tract infection): Plan: u/a suggestive of UTI but urine cx with 3 or more organisms suggesting contamination since initial u/a was concerning for UTI will simply Rx empirically s/p rocephin, then changed to keflex to complete 7 days of IV/PO abx Plan Hypothyroidism - TSH minimally elevated; leave synthroid as is; repeat TSH as outpatient in 1 month HTN - uncontrolled; cont metoprolol succ daily; losartan increased to 50mg BID; if BPs remain high consider aldactone - I believe she has been on such in the past Code status: DNR/DNI DVT ppx: Lovenox 40mg daily I met with her family in the room today including her daughter her son and sister we had a prolonged discussion reviewed of her diagnoses and that ongoing treatment to manage these would require consistent use of diuretics, consistent BIPAP use (or Trilogy if she qualifies), need for 24/7 supervision/care outside of the hospital, etc. discussed option of comfort care/hospice, Including hospice at home if she has the resources to hire caregivers. consulted palliative care and discussed with Dr. Manzano. Admission and Anticipated Discharge Date Admission Date: July 13, 2024 Brittanie Boyce did not complain of dyspnea or chest pressure today leg swelling has improved a lot since admission both her children and her sister are gathered in the room Physical Exam 2 Physical Exam: PHYSICAL EXAMINATION Last 24h vital signs reviewed, see documentation in flowsheet General: comfortable appearing, no distress HEENT: Normocephalic, atraumatic, pupils round and equal, sclerae anicteric, no conjunctival injection, moist mucus membranes Lungs: Normal respiratory effort. coarse crackles in both bases and mid brooke no wheezing Heart: Regular rate and rhythm, no murmurs. No JVD Abdomen: Soft, nontender, nondistended. Bowel sounds present. Extremities: Warm, dry, well-perfused. 2+ woody extremity edema. Neuro: Alert and oriented x hospital and basic situation but also makes some confused sounding statements, very hard of hearing, face symmetric, moves 4 extremities well Psych: Normal affect and behavior Results & Data Results & Data Vital Signs (Past 12 Hours) Vital Signs Temp Pulse Pulse Resp BP Pulse Ox O2 Del Method 07/18/24 14:47 59 L 07/18/24 11:00 36.7 C 77 18 169/78 H 97 Nasal Cannula 07/18/24 08:00 Nasal Cannula 07/18/24 07:33 36.8 C 18 174/79 H 98 Nasal Cannula 07/18/24 07:02 60 O2 Flow Rate 07/18/24 14:47 07/18/24 11:00 2 07/18/24 08:00 3 07/18/24 07:33 2 07/18/24 07:02 Laboratory Results 07/13/24 09:49 07/18/24 08:03 PG Care Time/CCT Total # of Minutes Spent Total Time Spent with Patient: I personally spent: 65 minutes today on clinical care activities including: reviewing chart notes and vital signs reviewing labs discussion with organizational research consultant(s) discussion with inpatient care manager rn examining and counseling the patient, counseling the patient's family for over 45 minutes writing orders documentation Coding Level of Care Code 77704 SUB INP/OBS CARE 3/50MIN Diagnoses Acute on chronic heart failure with preserved ejection fraction (HFpEF) I50.33 Acute on chronic respiratory failure with hypoxia and hypercapnia J96.21; J96.22 Acute metabolic encephalopathy G93.41 Type 2 diabetes mellitus with obesity E11.69; E66.9 Venous stasis dermatitis of both lower extremities I87.2 Ambulatory dysfunction R26.2 Elevated troponin R77.8 UTI (urinary tract infection) N39.0
[2024-07-19 08:27] LABS: BUN Creatinine Ratio 26.5 (10-20); Blood Urea Nitrogen 27 mg/dl (6-23); Calcium 8.7 mg/dl (8.6-10.3); Carbon Dioxide > 45 mmol/L (21-32); Chloride 90 mmol/L (98-107); Creatinine Clr Calc Pharmacy 50.9 ml/min; Est GFR (African American) 61.9 ml/min; Est GFR (Non-African American) 53.4 ml/min; Glucose 100 mg/dl (70-99(Fasting)); Potassium 3.5 mmol/L (3.5-5.1); Sodium 142 mmol/L (136-145)
[2024-07-19] MEDS: BUMETANIDE 1 MG TAB PO SCH (08:52)
--- NOTE | 2024-07-19 12:55 | Hospitalist Progress Note ---
Date of Service July 19, 2024 Assessment & Plan (1) Acute on chronic heart failure with preserved ejection fraction (HFpEF): Plan: 78 y/o woman admitted with acute on chronic respiratory failure with hypoxia and hypercarbia, acute on chronic systolic heart failure. Similar situation as multiple prior admissions where she became volume overloaded from not taking diuretics at home, however, hypercarbic respiratory failure has progressed. Consistently refuses to wear bipap. current echo this admission EF 40-45% 10/2023 EF 50-55% EF in 2022 30-35% [place] [facility] [place] h/o noncompliance with meds - particularly her diuretics severe proteinuria also a contributor diuresed well this admission, down >15# with bumex IV appears euvolemic, changed to po bumex at home dose this AM assess response DC naik tomorrow if maintaining euvolemia BMP reviewed - K/Cr okay but continues to have alkalosis. Some is related to contraction but some is chronic hypercarbia. Had few doses diamox earlier in admission (2) Acute on chronic respiratory failure with hypoxia and hypercapnia: Plan: on chronic NC O2 at home presented with sats in the 50s by report, and VBG with markedly elevated pCO2 s/p BIPAP for about 24 hours following admission, subsequently has refused it peak CO2 low 90s had improved to the 70s, then back up to 90 on 07/17. was similarly elevated during an May admission this year keep sats 89-92% prognosis poor without bed bug exterminator ventilatory support - this has been discussed with Carli and her family (3) Acute metabolic encephalopathy: Plan: 2nd to hypercapnia, hypoxia, +/- UTI improved mental status but remains forgetful (4) Type 2 diabetes mellitus with obesity: Plan: last a1c 10.3% in early 2023 a1c 8.8% cont basal-bolus insulin BSGs ac/hs BG reviewed and are at goal (5) Venous stasis dermatitis of both lower extremities: Plan: 2nd to lymphedema, improved with diuresis (6) Ambulatory dysfunction: Plan: wheelchair bound at baseline (7) Elevated troponin: Plan: Likely myocardial demand ischemia in setting of acute on chronic CHF and acute on chronic respiratory failure no evidence of ACS (8) UTI (urinary tract infection): Plan: u/a suggestive of UTI but urine cx with 3 or more organisms suggesting contamination since initial u/a was concerning for UTI treating empirically s/p rocephin, then changed to keflex to complete 7 days of IV/PO abx Plan Hypothyroidism - TSH minimally elevated; leave synthroid as is; repeat TSH as outpatient in 1 month HTN - uncontrolled; cont metoprolol succ daily; losartan increased to 50mg BID; if BPs remain high consider aldactone - I believe she has been on such in the past Code status: DNR/DNI DVT ppx: Lovenox 40mg daily Family meeting and palliative care meeting 07/18 Ongoing discussions about goals of care, needs caregivers if returning home with home health or hospice, refuses SNF, Carli has very poor insight into her condition at this time Admission and Anticipated Discharge Date Admission Date: July 13, 2024 Subjective Carli is up in chair. Shortness of breath is ok, probably at baseline. Leg edema present but much better than on admission. Eating without N/V. She has poor recall of conversations yesterday. Says "everybody tells me I'm dying but I can't see it" and can't recall any discussion about hospice. We went over her diagnoses and prognosis again. Says she wore the bipap 1 hour last night Physical Exam 2 Physical Exam: PHYSICAL EXAMINATION Last 24h vital signs reviewed, see documentation in flowsheet General: comfortable appearing, no distress, sitting up in chair HEENT: Normocephalic, atraumatic, pupils round and equal, sclerae anicteric, no conjunctival injection, moist mucus membranes Lungs: Nonlabored. coarse crackles in both bases and mid brooke no wheezing - unchanged. Shallow breathing, but this is baseline Heart: Regular rate and rhythm, no murmurs. No JVD Abdomen: Soft, nontender, nondistended. Bowel sounds present. Extremities: Warm, dry, well-perfused. 2+ woody extremity edema. unchanged Neuro: Alert and oriented x hospital and basic situation, forgetful, poor insight and judgment, very hard of hearing, face symmetric, moves 4 extremities well, mild asterixis Psych: Normal affect and behavior Results & Data Results & Data Vital Signs (Past 12 Hours) Vital Signs Temp Pulse Resp BP Pulse Ox O2 Del Method O2 Flow Rate 07/19/24 11:30 36.8 C 74 18 163/79 H 96 Nasal Cannula 2 07/19/24 09:08 Nasal Cannula 3 07/19/24 07:30 36.6 C 66 16 174/66 H 98 Nasal Cannula 2 07/19/24 03:26 36.9 C 61 18 181/75 H 97 Nasal Cannula 2 Laboratory Results 07/13/24 09:49 07/19/24 07:15 PG Care Time/CCT Total # of Minutes Spent Total Time Spent with Patient: Total time spent is greater than 50% in coordination of care (as documented) at patient's floor/unit and/or counseling patient: Coding Level of Care Code 80467 SUB INP/OBS CARE 2/35MIN Diagnoses Acute on chronic heart failure with preserved ejection fraction (HFpEF) I50.33 Acute on chronic respiratory failure with hypoxia and hypercapnia J96.21; J96.22 Acute metabolic encephalopathy G93.41 Type 2 diabetes mellitus with obesity E11.69; E66.9 Venous stasis dermatitis of both lower extremities I87.2 Ambulatory dysfunction R26.2 Elevated troponin R77.8 UTI (urinary tract infection) N39.0
[2024-07-19] MEDS ORDERED: bisacodyL 10 MG SUPP PR PRN (15:32)
[2024-07-20 05:44] LABS: Base Excess VBG 22.3 mEq/L; HCO3 VBG 54 mmol/L; Oxygen Saturation VBG 91.6 %; PCO2 VBG 100 mmHg (38-50); PO2 VBG 60 mmHg; pH VBG 7.34 (7.36-7.41)
[2024-07-20] MEDS: acetaZOLAMIDE 250 MG TAB PO SCH (13:57)
--- NOTE | 2024-07-20 17:35 | Hospitalist Progress Note ---
Date of Service July 20, 2024 Assessment & Plan (1) Acute on chronic heart failure with preserved ejection fraction (HFpEF): Plan: 78 y/o woman admitted with acute on chronic respiratory failure with hypoxia and hypercarbia, acute on chronic systolic heart failure. Similar situation as multiple prior admissions where she became volume overloaded from not taking diuretics at home, however, hypercarbic respiratory failure has progressed. Consistently refuses to wear bipap. current echo this admission EF 40-45% 10/2023 EF 50-55% EF in 2022 30-35% [place] [facility] [place] noncompliance with meds - particularly her diuretics severe proteinuria also a contributor diuresed well this admission, down >15# with bumex IV appears euvolemic, continue po bumex, decreased to 1 mg daily and added acetazolamide 250 mg p.o. daily assess response DC gumaro tomorrow if maintaining euvolemia a.m. BMP (2) Acute on chronic respiratory failure with hypoxia and hypercapnia: Plan: on chronic NC O2 at home presented with sats in the 50s by report, and VBG with markedly elevated pCO2 s/p BIPAP for about 24 hours following admission, subsequently has refused it peak CO2 low 90s had improved to the 70s, then back up to 90 on 07/17 and up to 100 today. pH nearlynormal. was similarly elevated during an May admission this year keep sats 89-92% prognosis poor without long term care phlebotomist ventilatory support - this has been discussed with Carli and her family multiple times however she cannot tolerate BiPAP started acetazolamide this may provide some amount of respiratory stimulation however medications have very limited utility here (3) Acute metabolic encephalopathy: Plan: 2nd to hypercapnia, hypoxia, +/- UTI improved mental status but remains forgetful, remains severely hypercarbic (4) Type 2 diabetes mellitus with obesity: Plan: last a1c 10.3% in early 2023 a1c 8.8% cont basal-bolus insulin BSGs ac/hs BG reviewed and are at goal (5) Ambulatory dysfunction: Plan: wheelchair bound at baseline (6) Elevated troponin: Plan: Likely myocardial demand ischemia in setting of acute on chronic CHF and acute on chronic respiratory failure no evidence of ACS (7) UTI (urinary tract infection): Plan: u/a suggestive of UTI but urine cx with 3 or more organisms suggesting contamination since initial u/a was concerning for UTI treating empirically s/p rocephin, then changed to keflex to complete 7 days of IV/PO abx Plan Hypothyroidism - TSH minimally elevated; leave synthroid as is; repeat TSH as outpatient in 1 month HTN - uncontrolled; cont metoprolol succ daily; losartan increased to 50mg BID; if BPs remain high consider aldactone - I believe she has been on such in the past - possibly improved today Code status: DNR/DNI DVT ppx: Lovenox 40mg daily Family meeting and palliative care meeting 07/18 Ongoing discussions about goals of care, needs caregivers if returning home with home health or hospice, refuses SNF, Carli has very poor insight into her condition at this time I updated her daughter by phone yesterday afternoon she has been working on obtaining some home caregiver support Admission and Anticipated Discharge Date Admission Date: July 13, 2024 Subjective Carli is visiting with her caregiver and friend late morning today shortness of breath is controlled reasonably well, leg edema is better than it has been in many months potentially longer according to her caregiver she does not feel like she can do a trial of BiPAP cites childhood trauma pCO2 still 100 on VBG this morning Physical Exam Physical Exam: PHYSICAL EXAMINATION Last 24h vital signs reviewed, see documentation in flowsheet General: awake and lying in bed visiting HEENT: Normocephalic, atraumatic, pupils round and equal, sclerae anicteric, no conjunctival injection, moist mucus membranes Lungs: Nonlabored. clear anteriorly no wheezing shallow respirations Heart: Regular rate and rhythm, no murmurs. No JVD Abdomen: Soft, nontender, nondistended. Bowel sounds present. Extremities: Warm, dry, well-perfused. 2+ woody extremity edema. skin is looser improved Neuro: Alert and oriented x hospital and basic situation, continues to have poor insight into the situation, face symmetric, moves 4 extremities well Psych: Normal affect and behavior Results & Data Results & Data Vital Signs (Past 12 Hours) Vital Signs Temp Pulse Resp BP Pulse Ox O2 Del Method O2 Flow Rate 07/20/24 15:37 36.7 C 63 18 124/65 92 Nasal Cannula 3 07/20/24 09:11 Nasal Cannula 3 07/20/24 07:16 36.7 C 59 L 18 171/67 H 98 Nasal Cannula 3 07/20/24 06:33 56 L 18 99 Nasal Cannula 3 07/20/24 06:18 56 L 99 Nasal Cannula 3 PG Care Time/CCT Total # of Minutes Spent Total Time Spent with Patient: Total time spent is greater than 50% in coordination of care (as documented) at patient's floor/unit and/or counseling patient: Coding Level of Care Code 01278 SUB INP/OBS CARE 2/35MIN Diagnoses Acute on chronic heart failure with preserved ejection fraction (HFpEF) I50.33 Acute on chronic respiratory failure with hypoxia and hypercapnia J96.21; J96.22 Acute metabolic encephalopathy G93.41 Type 2 diabetes mellitus with obesity E11.69; E66.9 Ambulatory dysfunction R26.2 Elevated troponin R77.8 UTI (urinary tract infection) N39.0
[2024-07-20] MEDS: POLYETHYLENE (MIRALAX) 17 GM PACK PO PRN (22:09)
[2024-07-21 07:49] LABS: BUN Creatinine Ratio 30.1 (10-20); Blood Urea Nitrogen 28 mg/dl (6-23); Calcium 8.6 mg/dl (8.6-10.3); Carbon Dioxide > 45 mmol/L (21-32); Chloride 89 mmol/L (98-107); Creatinine Clr Calc Pharmacy 55.9 ml/min; Glucose 136 mg/dl (70-99(Fasting)); Potassium 3.5 mmol/L (3.5-5.1); Sodium 141 mmol/L (136-145)
[2024-07-21] MEDS: BUMETANIDE 1 MG TAB PO SCH (09:03)
--- NOTE | 2024-07-21 17:29 | Hospitalist Progress Note ---
Date of Service July 21, 2024 Assessment & Plan (1) Acute on chronic heart failure with preserved ejection fraction (HFpEF): Plan: 78 y/o woman admitted with acute on chronic respiratory failure with hypoxia and hypercarbia, acute on chronic systolic heart failure. Similar situation as multiple prior admissions where she became volume overloaded from not taking diuretics at home, however, hypercarbic respiratory failure has progressed. Consistently refuses to wear bipap. current echo this admission EF 40-45% 10/2023 EF 50-55% EF in 2022 30-35% [place] [facility] [place]o noncompliance with meds - particularly her diuretics severe proteinuria also a contributor diuresed well this admission, down >15# with bumex IV appears euvolemic, continue po bumex, decreased to 1 mg daily and added acetazolamide 250 mg p.o. daily - BMP acceptable today Cr 0.9 and K 3.5, continue same meds assess response keep naik for comfort since going home with hospice a.m. BMP (2) Acute on chronic respiratory failure with hypoxia and hypercapnia: Plan: on chronic NC O2 at home presented with sats in the 50s by report, and VBG with markedly elevated pCO2 s/p BIPAP for about 24 hours following admission, subsequently has refused it last vbg CO2 100 pH nearly normal on 07/20. was also elevated during an May admission this year keep sats 89-92% prognosis poor without terminal computer operator ventilatory support - this has been discussed with Carli and her family multiple times however she cannot tolerate BiPAP started acetazolamide this may provide some amount of respiratory stimulation however medications have very limited utility here (3) Acute metabolic encephalopathy: Plan: 2nd to hypercapnia, hypoxia, +/- UTI improved mental status, remains severely hypercarbic (4) Type 2 diabetes mellitus with obesity: Plan: last a1c 10.3% in early 2023 a1c 8.8% cont basal-bolus insulin BSGs ac/hs BG reviewed and are at goal (5) Ambulatory dysfunction: Plan: wheelchair bound at baseline (6) Elevated troponin: Plan: Likely myocardial demand ischemia in setting of acute on chronic CHF and acute on chronic respiratory failure no evidence of ACS (7) UTI (urinary tract infection): Plan: u/a suggestive of UTI but urine cx with 3 or more organisms suggesting contamination since initial u/a was concerning for UTI treating empirically s/p rocephin, then changed to keflex to complete 7 days of IV/PO abx Plan Hypothyroidism - TSH minimally elevated; leave synthroid as is; repeat TSH as outpatient in 1 month HTN - uncontrolled; cont metoprolol succ daily; losartan increased to 50mg BID; if BPs remain high consider aldactone - I believe she has been on such in the past - possibly improved today Code status: DNR/DNI DVT ppx: Lovenox 40mg daily Family meeting and palliative care meeting 07/18 Updated her daughter at bedside today Plan is for home with hospice and home caregivers Admission and Anticipated Discharge Date Admission Date: July 13, 2024 Subjective dyspnea unchanged leg edema unchanged Carli seems more coherent today, no tremor/asterixis met with Carli and her daughter at bedside, they've decided for home hospice with home caregivers Physical Exam 2 Physical Exam: PHYSICAL EXAMINATION Last 24h vital signs reviewed, see documentation in flowsheet General: awake resting in bed HEENT: Normocephalic, atraumatic, pupils round and equal, sclerae anicteric, no conjunctival injection, moist mucus membranes Lungs: Nonlabored. clear anteriorly no wheezing shallow respirations persist unchanged Heart: Regular rate and rhythm, no murmurs. No JVD Abdomen: Soft, nontender, nondistended. Bowel sounds present. Extremities: Warm, dry, well-perfused. 2+ woody extremity edema. skin is looser improved Neuro: Alert and oriented x hospital and situation, clearer today, no asterixis/tremor, face symmetric, moves 4 extremities well Psych: Normal affect and behavior Results & Data Results & Data Vital Signs (Past 12 Hours) Vital Signs Temp Pulse Resp BP Pulse Ox O2 Del Method O2 Flow Rate 07/21/24 15:21 36.7 C 56 L 15 151/77 H 99 Nasal Cannula 3 07/21/24 08:45 60 07/21/24 08:02 36.4 C L 57 L 18 153/73 H 99 Nasal Cannula 3 07/21/24 07:40 Nasal Cannula 3 Laboratory Results 07/13/24 09:49 07/21/24 07:00 PG Care Time/CCT Total # of Minutes Spent Total Time Spent with Patient: Total time spent is greater than 50% in coordination of care (as documented) at patient's floor/unit and/or counseling patient: Coding Level of Care Code 18536 SUB INP/OBS CARE 2/35MIN Diagnoses Acute on chronic heart failure with preserved ejection fraction (HFpEF) I50.33 Acute on chronic respiratory failure with hypoxia and hypercapnia J96.21; J96.22 Acute metabolic encephalopathy G93.41 Type 2 diabetes mellitus with obesity E11.69; E66.9 Ambulatory dysfunction R26.2 Elevated troponin R77.8 UTI (urinary tract infection) N39.0
[2024-07-22] MEDS: POTASSIUM CHLORIDE CRTAB 20 MEQ TABCR PO STA (14:13)
[2024-07-22] MEDS: BUMETANIDE 2 MG in SYRINGE 0 ML IV ONE (14:14)
--- NOTE | 2024-07-22 14:48 | Hospitalist Progress Note ---
Date of Service July 22, 2024 Assessment & Plan (1) Acute on chronic heart failure with preserved ejection fraction (HFpEF): Plan: 78 y/o woman admitted with acute on chronic respiratory failure with hypoxia and hypercarbia, acute on chronic systolic heart failure. Similar situation as multiple prior admissions where she became volume overloaded from not taking diuretics at home, however, hypercarbic respiratory failure has progressed. Consistently refuses to wear bipap. current echo this admission EF 40-45% 10/2023 EF 50-55% EF in 2022 30-35% follows with [facility] [place] Cardiology h/o noncompliance with meds - particularly her diuretics severe proteinuria also a contributor diuresed well this admission, down from 94-->82 kg with bumex IV resumed oral diuretics with addition of Diamox yesterday, more dyspneic today however so we will give extra dose of Bumex 2 mg IV this afternoon, a.m. BMP and mag increase oral diuretics to Bumex 2 mg daily with Diamox 250 mg daily keep naik for comfort since going home with hospice (2) Acute on chronic respiratory failure with hypoxia and hypercapnia: Plan: on chronic NC O2 at home presented with sats in the 50s by report, and VBG with markedly elevated pCO2 s/p BIPAP for about 24 hours following admission, subsequently has refused it last vbg CO2 100 pH nearly normal on 07/20. was also elevated during an May admission this year keep sats 89-92% prognosis poor without long term care administrator ventilatory support - this has been discussed with Carli and her family multiple times however she cannot tolerate BiPAP started acetazolamide this may provide some amount of respiratory stimulation however medications have very limited utility here (3) Acute metabolic encephalopathy: Plan: 2nd to hypercapnia, hypoxia, +/- UTI improved mental status, remains severely hypercarbic (4) Type 2 diabetes mellitus with obesity: Plan: last a1c 10.3% in early 2023 a1c 8.8% cont basal-bolus insulin BSGs ac/hs BG reviewed and are in acceptable range for this situation (5) Ambulatory dysfunction: Plan: wheelchair bound at baseline (6) Elevated troponin: Plan: Likely myocardial demand ischemia in setting of acute on chronic CHF and acute on chronic respiratory failure no evidence of ACS (7) UTI (urinary tract infection): Plan: u/a suggestive of UTI but urine cx with 3 or more organisms suggesting contamination since initial u/a was concerning for UTI treating empirically s/p rocephin, then changed to keflex to complete 7 days of IV/PO abx Plan Hypothyroidism - TSH minimally elevated; leave synthroid as is; repeat TSH as outpatient in 1 month HTN - uncontrolled; cont metoprolol succ daily; losartan increased to 50mg BID - remains elevated but acceptable for the current situation Code status: DNR/DNI DVT ppx: Lovenox 40mg daily Family meeting and palliative care meeting 07/18 Updated her daughter at bedside 07/21 Plan is for home with hospice and home caregivers Admission and Anticipated Discharge Date Admission Date: July 13, 2024 Subjective Carli's weight is stable at 82 kg today however she feels more dyspneic leg edema unchanged to increased to today Physical Exam Physical Exam: PHYSICAL EXAMINATION Last 24h vital signs reviewed, see documentation in flowsheet General: was napping but aroused to exam HEENT: Normocephalic, atraumatic, pupils round and equal, sclerae anicteric, no conjunctival injection, moist mucus membranes Lungs: increased respiratory effort clear anteriorly very shallow basilar crackles Heart: Regular rate and rhythm, no murmurs. Abdomen: Soft, nontender, nondistended. Bowel sounds present. Extremities: Warm, dry, well-perfused. 2+ woody extremity edema. skin is green today Neuro: Alert and oriented x hospital and situation, face symmetric, moves 4 extremities well Psych: Normal affect and behavior Results & Data Results & Data Vital Signs (Past 12 Hours) Vital Signs Temp Pulse Resp BP BP Pulse Ox O2 Del Method 07/22/24 14:12 36.8 C 57 L 14 176/62 H 99 Nasal Cannula 07/22/24 08:59 57 L 145/54 H 07/22/24 07:25 36.3 C L 53 L 16 129/67 99 Nasal Cannula O2 Flow Rate 07/22/24 14:12 3 07/22/24 08:59 07/22/24 07:25 3 PG Care Time/CCT Total # of Minutes Spent Total Time Spent with Patient: Total time spent is greater than 50% in coordination of care (as documented) at patient's floor/unit and/or counseling patient: Coding Level of Care Code 81961 SUB INP/OBS CARE 2/35MIN Diagnoses Acute on chronic heart failure with preserved ejection fraction (HFpEF) I50.33 Acute on chronic respiratory failure with hypoxia and hypercapnia J96.21; J96 .22 Acute metabolic encephalopathy G93.41 Type 2 diabetes mellitus with obesity E11.69; E66.9 Ambulatory dysfunction R26.2 Elevated troponin R77.8 UTI (urinary tract infection) N39.0
[2024-07-23 06:38] LABS: Base Excess VBG 14.8 mEq/L; HCO3 VBG 46 mmol/L; Oxygen Saturation VBG 93.4 %; PCO2 VBG 93 mmHg (38-50); PO2 VBG 69 mmHg
[2024-07-23 07:12] LABS: BUN Creatinine Ratio 37.8 (10-20); Calcium 8.3 mg/dl (8.6-10.3); Creatinine Clr Calc Pharmacy 53.4 ml/min; Potassium 3.9 mmol/L (3.5-5.1)
[2024-07-23] MEDS: LANTUS PER UNIT CHARGE SQ SCH (09:11)
[2024-07-23] MEDS: BUMETANIDE 1 MG TAB PO SCH (09:13)
--- NOTE | 2024-07-23 12:42 | Hospitalist Progress Note ---
Date of Service July 23, 2024 Assessment & Plan (1) Acute on chronic heart failure with preserved ejection fraction (HFpEF): Plan: 78 y/o woman admitted with acute on chronic respiratory failure with hypoxia and hypercarbia, acute on chronic systolic heart failure. Similar situation as multiple prior admissions where she became volume overloaded from not taking diuretics at home, however, hypercarbic respiratory failure has progressed. Consistently refuses to wear bipap. current echo this admission EF 40-45% 10/2023 EF 50-55% EF in 2022 30-35% [place] [facility] [place] h/o noncompliance with meds - particularly her diuretics severe proteinuria also a contributor diuresed well this admission, down from 94-->82 kg with bumex IV, transitioned to oral Bumex (1-2 mg) and Diamox (250 mg) and weight is increased back to 84.3 with increased dyspnea and edema -resume bumex 2 mg IV bid and increase diamox to 500 mg qAM keep naik for comfort since going home with hospice (2) Acute on chronic respiratory failure with hypoxia and hypercapnia: Plan: on chronic NC O2 at home presented with sats in the 50s by report, and VBG with markedly elevated pCO2 s/p BIPAP for about 24 hours following admission, subsequently has refused it last vbg CO2 100 pH nearly normal on 07/20. was also elevated during an May admission this year keep sats 89-92% prognosis poor without longterm ventilatory support - this has been discussed with Carli and her family multiple times however she cannot tolerate BiPAP started acetazolamide this may provide some amount of respiratory stimulation however medications have very limited utility here (3) Acute metabolic encephalopathy: Plan: 2nd to hypercapnia, hypoxia, +/- UTI improved mental status, remains severely hypercarbic (4) Type 2 diabetes mellitus with obesity: Plan: last a1c 10.3% in early 2023 a1c 8.8% cont basal-bolus insulin BSGs ac/hs BG reviewed and are in acceptable range for this situation (5) Ambulatory dysfunction: Plan: wheelchair bound at baseline (6) Elevated troponin: Plan: Likely myocardial demand ischemia in setting of acute on chronic CHF and acute on chronic respiratory failure no evidence of ACS (7) UTI (urinary tract infection): Plan: u/a suggestive of UTI but urine cx with 3 or more organisms suggesting contamination since initial u/a was concerning for UTI treating empirically s/p rocephin, then changed to keflex to complete 7 days of IV/PO abx Plan Hypothyroidism - TSH minimally elevated; leave synthroid as is; repeat TSH as outpatient in 1 month HTN - uncontrolled; cont metoprolol succ daily; losartan increased to 50mg BID - remains elevated but acceptable for the current situation Code status: DNR/DNI DVT ppx: Lovenox 40mg daily Family meeting and palliative care meeting 07/18 Updated her daughter at bedside 07/21 Plan is for home with hospice and home caregivers. will be able to discharge home once home caregivers are confirmed Admission and Anticipated Discharge Date Admission Date: July 13, 2024 Brittanie Boyce is not feeling very well today because she did not sleep all night, this is related to activity going on with her roommate dyspnea not improved after IV Bumex yesterday afternoon discussed weights with RN the 1 from this morning was without any blankets therefore should be fairly accurate and it has in fact increased as has her edema over the last few days Physical Exam 2 Physical Exam: PHYSICAL EXAMINATION Last 24h vital signs reviewed, see documentation in flowsheet General: napping and woke up to voice HEENT: Normocephalic, atraumatic, pupils round and equal, sclerae anicteric, no conjunctival injection, moist mucus membranes Lungs: increased respiratory effort very poor air movement posterior crackles bilaterally all brooke Heart: Regular rate and rhythm, no murmurs. Abdomen: Soft, nontender, nondistended. Bowel sounds present. Extremities: Warm, dry, well-perfused. 2-3+ woody bilateral lower extremity edema is worse Neuro: Alert and oriented x hospital and situation, face symmetric, moves 4 extremities well Psych: anxious affect and normal behavior Results & Data Results & Data Vital Signs (Past 12 Hours) Vital Signs Temp Pulse Resp BP Pulse Ox O2 Del Method O2 Flow Rate 07/23/24 07:35 Nasal Cannula 3 07/23/24 07:09 36.6 C 57 L 18 147/65 H 99 Nasal Cannula 3 Laboratory Results 07/13/24 09:49 07/23/24 06:21 VBG pH 7.3/CO2 93 PG Care Time/CCT Total # of Minutes Spent Total Time Spent with Patient: Total time spent is greater than 50% in coordination of care (as documented) at patient's floor/unit and/or counseling patient: Coding Level of Care Code 74227 SUB INP/OBS CARE 2MIN Diagnoses Acute on chronic heart failure with preserved ejection fraction (HFpEF) I50.33 Acute on chronic respiratory failure with hypoxia and hypercapnia J96.21; J96.22 Acute metabolic encephalopathy G93.41 Type 2 diabetes mellitus with obesity E11.69; E66.9 Ambulatory dysfunction R26.2 Elevated troponin R77.8 UTI (urinary tract infection) N39.0
[2024-07-23] MEDS: POTASSIUM CHLORIDE CRTAB 20 MEQ TABCR PO SCH (12:47)
[2024-07-23] MEDS: BUMETANIDE 2 MG in SYRINGE 0 ML IV SCH (12:52)
[2024-07-23 23:10] VITALS: TEMP 98.2
[2024-07-24] MEDS: acetaZOLAMIDE 250 MG TAB PO SCH (07:56)
[2024-07-24] MEDS: POTASSIUM CHLORIDE 20 MEQ/15 ML UDC PO SCH (07:57)
[2024-07-24 08:03] VITALS: BP 163/66; PULSE 56; RESP 16; O2SAT 99
[2024-07-24 09:44] LABS: BUN Creatinine Ratio 35.4 (10-20); Blood Urea Nitrogen 35 mg/dl (6-23); Calcium 8.5 mg/dl (8.6-10.3); Carbon Dioxide > 45 mmol/L (21-32); Chloride 91 mmol/L (98-107); Creatinine Clr Calc Pharmacy 53.4 ml/min; Glucose 180 mg/dl (70-99(Fasting)); Potassium 4.2 mmol/L (3.5-5.1); Sodium 139 mmol/L (136-145)
--- NOTE | 2024-07-24 15:00 | Hospitalist Progress Note ---
Date of Service July 24, 2024 Assessment & Plan (1) Acute on chronic heart failure with preserved ejection fraction (HFpEF): Plan: 78 y/o woman admitted with acute on chronic respiratory failure with hypoxia and hypercarbia, acute on chronic systolic heart failure. Similar situation as multiple prior admissions where she became volume overloaded from not taking diuretics at home, however, hypercarbic respiratory failure has progressed. Consistently refuses to wear bipap. current echo this admission EF 40-45% 10/2023 EF 50-55% EF in 2022 30-35% follows with [facility] [place] h/o noncompliance with meds - particularly her diuretics severe proteinuria also a contributor diuresed well this admission, down from 94-->82 kg with bumex IV, transitioned to oral Bumex (1-2 mg) and Diamox (250 mg) and weight increased back to 84.3 with increased dyspnea and edema -resumed bumex 2 mg IV bid and increased diamox to 500 mg qAM. BMP stable today with acceptable sodium, potassium 4.2, BUN/creatinine unchanged, bicarbonate remains severely elevated - continue IV diuresis and when resuming oral diuretics will need higher dose keep naik for comfort since going home with hospice (2) Acute on chronic respiratory failure with hypoxia and hypercapnia: Plan: on chronic NC O2 at home presented with sats in the 50s by report, and VBG with markedly elevated pCO2 s/p BIPAP for about 24 hours following admission, subsequently has refused it last vbg CO2 100 pH nearly normal on 07/20. was also elevated during an May admission this year keep sats 89-92% prognosis poor without gear grinder ventilatory support - this has been discussed with Carli and her family multiple times however she cannot tolerate BiPAP started acetazolamide this may provide some amount of respiratory stimulation however medications have very limited utility here (3) Acute metabolic encephalopathy: Plan: 2nd to hypercapnia, hypoxia, +/- UTI improved mental status, remains severely hypercarbic (4) Type 2 diabetes mellitus with obesity: Plan: last a1c 10.3% in early 2023 a1c 8.8% cont basal-bolus insulin BSGs ac/hs BG reviewed and are in acceptable range for this situation. no benefit of tight glycemic control (5) Ambulatory dysfunction: Plan: wheelchair bound at baseline (6) Elevated troponin: Plan: Likely myocardial demand ischemia in setting of acute on chronic CHF and acute on chronic respiratory failure no evidence of ACS (7) UTI (urinary tract infection): Plan: u/a suggestive of UTI but urine cx with 3 or more organisms suggesting contamination since initial u/a was concerning for UTI treating empirically s/p rocephin/keflex completed 7 days of IV/PO abx Plan Hypothyroidism - TSH minimally elevated; leave synthroid as is; repeat TSH as outpatient in 1 month HTN - uncontrolled; cont metoprolol succ daily; losartan increased to 50mg BID - remains elevated but acceptable for the current situation Code status: DNR/DNI DVT ppx: Lovenox 40mg daily Family meeting and palliative care meeting 07/18 Updated her daughter at bedside over this weekend Plan is for home with hospice and home caregivers. will be able to discharge home once home caregivers are confirmed Admission and Anticipated Discharge Date Admission Date: July 13, 2024 Subjective Carli feels about the same today her breathing has not particularly improved, but remains dyspneic at rest she is up in the chair today Physical Exam 2 Physical Exam: PHYSICAL EXAMINATION Last 24h vital signs reviewed, see documentation in flowsheet General: awake and alert and up in the chair HEENT: Normocephalic, atraumatic, pupils round and equal, sclerae anicteric, no conjunctival injection, moist mucus membranes Lungs: increased respiratory effort poor air movement persists she continues to have coarse crackles mid and basilar lung brooke bilaterally Heart: Regular rate and rhythm, no murmurs. Abdomen: Soft, nontender, nondistended. Bowel sounds present. Extremities: Warm, dry, well-perfused. 2-3+ woody bilateral lower extremity edema improved a little bit since yesterday Neuro: Alert and oriented x hospital and situation, face symmetric, moves 4 extremities well Psych: normal affect and normal behavior Results & Data Results & Data Vital Signs (Past 12 Hours) Vital Signs Temp Pulse Resp BP Pulse Ox O2 Del Method O2 Flow Rate 07/24/24 08:30 Nasal Cannula 3 07/24/24 08:01 36.8 C 56 L 16 163/66 H 99 Nasal Cannula 3 Laboratory Results 07/13/24 09:49 07/24/24 08:51 PG Care Time/CCT Total # of Minutes Spent Total Time Spent with Patient: Total time spent is greater than 50% in coordination of care (as documented) at patient's floor/unit and/or counseling patient: Coding Level of Care Code 17674 SUB INP/OBS CARE 2MIN Diagnoses Acute on chronic heart failure with preserved ejection fraction (HFpEF) I50.33 Acute on chronic respiratory failure with hypoxia and hypercapnia J96.21; J96.22 Acute metabolic encephalopathy G93.41 Type 2 diabetes mellitus with obesity E11.69; E66.9 Ambulatory dysfunction R26.2 Elevated troponin R77.8 UTI (urinary tract infection) N39.0
--- NOTE | 2024-07-24 18:30 | Discharge Summary ---
Discharge Summary Date of Service July 24, 2024 Principal Dx & Hospital Course #1 = Principal Diagnosis (1) Acute on chronic heart failure with preserved ejection fraction (HFpEF): 78 y/o woman admitted with acute on chronic respiratory failure with hypoxia and hypercarbia, acute on chronic systolic heart failure. Similar situation as multiple prior admissions where she became volume overloaded from not taking diuretics at home, however, hypercarbic respiratory failure has progressed. Consistently refuses to wear bipap, unable to tolerate face mask. current echo this admission EF 40-45% diuresed with IV Bumex this admission Carli is really in an untenable situation where she has developed chronic hypoxic and hypercarbic respiratory failure, she has absolutely been unable to tolerate BiPAP for her hypercarbia because of inability to wear a facemask, she cites previous traumatic experiences. there is significant chronic hypercarbia with CO2 of around 90-100, she is compensated for this at the moment but expect progression. She has Severe heart failure and has had multiple admissions for this -has a lot of difficulty taking diuretics at home because it makes her urinate. she is really unable to get by on her own at home anymore and does not want to be in nursing facility. Palliative care consulted this admission and her children came in from out of town. She will discharge home with home hospice and 24-hour caregivers have been arranged 1-2 mg po Bumex with acetazolamide was trialed earlier this week and was inadequate, therefore for discharge increased Bumex to 4 mg daily if dyspnea or edema is problematic, otherwise if volume status well-controlled or low oral intake can drop to 2 mg daily dosing. added 500 mg daily acetazolamide to help stimulate respiratory drive. potassium supplement daily while taking diuretics keep naik for comfort since going home with hospice (2) Acute on chronic respiratory failure with hypoxia and hypercapnia: prognosis poor without assistant terminal manager ventilatory support and she cannot tolerate noninvasive ventilation started acetazolamide this may provide some amount of respiratory stimulation however medications have very limited utility here (3) Acute metabolic encephalopathy: 2nd to hypercapnia, hypoxia, +/- UTI improved mental status, remains severely hypercarbic (4) Type 2 diabetes mellitus with obesity: last a1c 10.3% in early 2023 a1c 8.8% cont basal-bolus insulin no benefit of tight glycemic control okay to stop insulins while on hospice (5) Ambulatory dysfunction: wheelchair bound at baseline (6) Elevated troponin: Likely myocardial demand ischemia in setting of acute on chronic CHF and acute on chronic respiratory failure no evidence of ACS (7) UTI (urinary tract infection): u/a suggestive of UTI but urine cx with 3 or more organisms suggesting contamin ation since initial u/a was concerning for UTI treated empirically s/p rocephin/keflex completed 7 days of IV/PO abx Plan Hypothyroidism - TSH minimally elevated; leave synthroid as is HTN - continue usual medications - remains elevated but acceptable for the current situation, no benefit of tight control I added usual hospice comfort medications to her discharge prescriptions: Concentrated morphine, ondansetron, lorazepam, haloperidol. She is already on a bowel regimen at home Admission HPI Per Admitting Provider 78 y/o with a PMHx of HFmrEF, HTN, cardiomyopathy, severe COPD, chronic hypoxic respiratory failure on baseline 2 L nasal cannula, hypothyroidism, dyslipidemia, diabetes, asthma, and arthritis presents with worsening SOB and desaturations in the 50s. Patient with worsening symptoms over the last 2-3 days, tonight was particularly worse. Was using her home O2, but this did not improve her breathing. No fevers or chills. No chest pain. No n/v/abdominal pain. Has had worsening BLE edema as well. No wounds that she knows of. Patient lives alone at home and is wheelchair bound. Is to wear NIPVV but has a history of trauma, which makes this difficult. Does follow with pulm outpatient. Has a history of HFmrEF. Last ECHO 10/2023. Patient is typically not adherent to her medication regimen and has had frequent hospitalizations for the same concern. Discharge Exam PHYSICAL EXAMINATION Last 24h vital signs reviewed, see documentation in flowsheet General: awake and alert and up in the chair HEENT: Normocephalic, atraumatic, pupils round and equal, sclerae anicteric, no conjunctival injection, moist mucus membranes Lungs: increased respiratory effort poor air movement persists she continues to have coarse crackles mid and basilar lung brooke bilaterally Heart: Regular rate and rhythm, no murmurs. Abdomen: Soft, nontender, nondistended. Bowel sounds present. Extremities: Warm, dry, well-perfused. 2-3+ woody bilateral lower extremity edema improved a little bit since yesterday Neuro: Alert and oriented x hospital and situation, face symmetric, moves 4 extremities well Psych: normal affect and normal behavior Discharge Plan Discharge Items Patient Disposition: Hospice - Home Reason For Visit: SOB Discharge Diagnosis: Acute on chronic HFpEF, acute on chronic respiratory failure with hypoxia and hypercarbia Activity: Resume your previous activity Non-emergency contact: Primary Care Provider Call non-emergency contact if: you have any medication questions and your symptoms worsen Follow-up/Referrals: Luann France MD [Primary Care Provider] - Diet: Regular Addtl Attending Provider Instructions: You were treated for heart failure exacerbation with increased diuretics Follow up with home hospice for symptom management Call hospice for advice about managing symptoms like increased shortness of breath or pain You will feel better if you continue taking oral diuretics, you can keep the naik catheter which will make this much easier 2 mg of oral bumex does not seem to be enough right now. You can take 4 mg in the AM for the time being. If shortness of breath improves and leg swelling resolves, or your oral intake declines, you can decrease the bumex to 2 mg in the AM. Only take the potassium on days that you take bumex Acetazolamide (diamox) is another diuretic that might help you breathe more and get rid of carbon dioxide I sent prescriptions for common hospice medications that can help with pain, shortness of breath, nausea, anxiety -the hospice nurse will give you advice on how to use these medications It was a pleasure taking care of you in the hospital, Rosalind Turcios MD Pending Studies at Discharge: No Stand-Alone Forms: My [facility] Medications and DC Order Prescriptions: New potassium chloride 20 mEq/15 mL Liquid 40 meq PO QAM Qty: 1200 0RF bumetanide 2 mg tablet 2 - 4 mg PO DAILY Qty: 60 0RF Rx Instructions: use 4mg for increased edema or shortness of breath, 2mg for maintenance lorazepam 1 mg tablet 1 mg sublingual Q6H PRN (Reason: anxiety or shortness of breath) Qty: 20 0RF ondansetron 4 mg tablet,disintegrating 4 mg PO Q6H PRN (Reason: nausea and vomiting) Qty: 20 0RF morphine concentrate 100 mg/5 mL (20 mg/mL) solution 5 - 10 mg PO Q6H PRN (Reason: pain or dyspnea) Qty: 30 0RF haloperidol lactate 2 mg/mL concentrate 2 mg PO Q4H PRN (Reason: nausea and vomiting or agitation) Qty: 15 0RF acetazolamide 250 mg tablet 500 mg PO QAM Qty: 60 0RF Continued metoprolol succinate 200 mg tablet extended release 24 hr 200 mg PO DAILY Qty: 90 3RF losartan 50 mg tablet 50 mg PO QAM Qty: 90 3RF Patient Comments: PT STATED SHE DOES NOT TAKE THIS BP MEDICATION. levothyroxine 150 mcg tablet 150 mcg PO DAILYBB Qty: 90 3RF ipratropium-albuterol 0.5 mg-3 mg(2.5 mg base)/3 mL solution for nebulization 3 ml inhalation Q6R Qty: 90 0RF albuterol sulfate 2.5 mg/0.5 mL solution for nebulization 2.5 mg inhalation Q4H PRN (Reason: shortness of breath or wheezing or cough) albuterol sulfate 90 mcg/actuation HFA aerosol inhaler 2 puff INHALATION Q4H PRN (Reason: cough/wheeze/shortness of breath) Qty: 18 1RF (DME) Spacer for Inhaler Misc See Rx Instructions .Route Qty: 1 0RF Rx Instructions: As directed (DME) OneTouch Verio test strips Strip See Rx Instructions .ROUTE .MEDSUPPLY Qty: 100 3RF Rx Instructions: for once a day testing (DME) pen needle, diabetic [BD Ultra-Fine Micro Pen Needle] 32 gauge x 1/4" needle See Rx Instructions .ROUTE .MEDSUPPLY Qty: 50 0RF Rx Instructions: As directed triamcinolone acetonide 0.1 % cream 1 applic EXT BID PRN (Reason: FLARE UPS) Rx Instructions: apply twice daily in thin amounts to scaly, dry skin on front of legs; use for 5-7 days only. meclizine 12.5 mg Tablet 12.5 mg PO TID Qty: 21 0RF Levemir FlexPen 100 unit/mL (3 mL) insulin pen 30 unit SUBCUT QAM sennosides-docusate sodium [Senna-S] 8.6-50 mg tablet 1 tab-cap PO BID Qty: 60 0RF polyethylene glycol 3350 [Miralax] 17 gram/dose powder 17 g PO DAILY PRN (Reason: constipation) Qty: 850 0RF bisacodyl 10 mg suppository 10 mg MI DAILY PRN (Reason: constipation) Qty: 30 0RF Discontinued bumetanide 1 mg tablet 1 mg PO DAILY Qty: 120 3RF Rx Instructions: Take in addition to .5 mg tablet for a total of 1.5 mg daily. May increase to 2 mg PRN for edema. Discharge Orders: Discharge Order (Routine); Ordered 07/24/24 Ordered By: Rosalind Tapia/Other Patient Handouts: What Is Palliative Care, Managing Type 2 Diabetes, Urinary Catheter Bag Empty Clean, Leg Bag Care Dc, Naik Catheter Female Ch Admission Data Admit Date/Time: 07/13/24 05:00 Attending Provider: Rosalind Turcios Admit Provider: Glenny Briggs Primary Care Provider: Luann France Other Providers: [facility]; Kenny Farfan; Shantel Antunez Other Interventions: Discharge Summary Assessment (RN) Last Done: 07/24/24 16:29 Hospital Stay Data Consultations 07/13/24 04:19 ED Decision to Admit Stat 07/16/24 17:29 Consult Palliative Care Routine Pending Results Patient Have Any Pending Studies at Discharge: No Discharge Instructions Given to Patient (Per Discharging Provider) You were treated for heart failure exacerbation with increased diuretics Follow up with home hospice for symptom management Call hospice for advice about managing symptoms like increased shortness of breath or pain You will feel better if you continue taking oral diuretics, you can keep the naik catheter which will make this much easier 2 mg of oral bumex does not seem to be enough right now. You can take 4 mg in the AM for the time being. If shortness of breath improves and leg swelling resolves, or your oral intake declines, you can decrease the bumex to 2 mg in the AM. Only take the potassium on days that you take bumex Acetazolamide (diamox) is another diuretic that might help you breathe more and get rid of carbon dioxide I sent prescriptions for common hospice medications that can help with pain, shortness of breath, nausea, anxiety -the hospice nurse will give you advice on how to use these medications It was a pleasure taking care of you in the hospital, Rosalind Turcios MD Total Time Total Time Spent Total Time Spent (In Minutes): I personally spent: 45 minutes today on clinical care activities including: reviewing chart notes and vital signs reviewing labs discussion with care management coordinator examining and counseling the patient writing orders writing prescriptions, discharge instructions documentation Coding Level of Care Code 83411 INP/OBS DISCH >30 MIN Diagnoses Acute on chronic heart failure with preserved ejection fraction (HFpEF) I50.33 Acute on chronic respiratory failure with hypoxia and hypercapnia J96.21; J96.22 Acute metabolic encephalopathy G93.41 Type 2 diabetes mellitus with obesity E11.69; E66.9 Ambulatory dysfunction R26.2 Elevated troponin R77.8 UTI (urinary tract infection) N39.0
== END 2024-07-24 16:50 | disposition hospice, home (50) | DRG 291 ==
LOC: SUATTDRO → ED 03:15 → EDINP 05:00 → SUATTDRO 05:00 → 2S 08:38 → 3W 07-19 12:56